=== PATIENT | female | born 1940 | race Caucasian/White ===

== ENCOUNTER 2023-03-21 14:52 | Observation (INO) | payer MEDICARE, SELFPAY ==
[2023-03-21] VITALS (33 sets, daily range): BP systolic 140–174; BP diastolic 61–81; PULSE 49–67; RESP 8–28; TEMP 36.6–36.8; O2SAT 95–99; BMI 25.9; BMI 25.6
--- NOTE | 2023-03-21 15:09 | ECG_ITS ---
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
--- NOTE | 2023-03-21 15:12 | CT_ITS ---
The [address] [address] Patient Name: MADALYN FORBES MRN: [id number] date: 1940 Sex: F Assigned Patient Location: ER Current Patient Location: .[facility] Accession/Order Number: [id number] Exam Date: 03/21/2023 15:30 Report Date: 03/21/2023 15:45 At the request of: RICKY MASON Procedure: CT stroke head/brain wo con CT stroke head/brain wo con, 03/21/2023 3:30 PM EST INDICATION: slurred speech at 4 am COMPARISON: None. TECHNIQUE: Axial CT images of the brain from skull base to vertex, including portions of the face and sinuses, were obtained without contrast. Multiplanar reformatted images were generated and reviewed as needed. Dose reduction techniques were achieved by using automated exposure control and/or adjustment of mA and/or kV according to patient size and/or use of iterative reconstruction technique. FINDINGS: CEREBRUM: Age-appropriate atrophy is present, without visible acute hemorrhage or lesion. Periventricular low density change is demonstrated, consistent with chronic small vessel disease. A subcentimeter focus of CSF density is seen in right owens radiata. CEREBELLUM: No edema, hemorrhage, mass, acute infarction, or inappropriate atrophy. BRAINSTEM: No acute infarct, hemorrhage or gross structural abnormality. CSF SPACES: Ventricles, cisterns, and sulci are appropriate for age. No hydrocephalus, subarachnoid hemorrhage, or mass. SKULL: No mass or other significant visible lesion. SINUSES: Limited views demonstrate no significant mucosal thickening or fluid. ORBITS: Limited views are unremarkable. OTHER: None. CT/CT stroke head/brain wo con IMPRESSION: Age-related deep white matter changes consistent with chronic small vessel disease superimposed on overall findings of age-appropriate cortical atrophy. Subcentimeter focus of CSF density in right owens radiata consistent with remote lacunar infarct. No acute intracranial abnormality is otherwise identified. Electronically authenticated by: Nellie CHAVES Date: 03/21/2023 15:45
[2023-03-21 15:20] LABS: Basophils Absolute Auto 0.1 10^3/uL (0.0-0.1); Basophils Percent Auto 0.6 % (0.2-2.0); Eosinophils Absolute Auto 0.4 10^3/uL (0.0-0.7); Eosinophils Percent Auto 4.4 % (0.9-7.0); Hemoglobin 12.2 g/dL (12.0-16.0); Immature Granulocytes Abs Auto 0.01 10^3/uL (0.00-0.03); Immature Granulocytes Pct Auto 0.1 % (0.0-0.5); Lymphocytes Absolute Auto 3.1 10^3/uL (1.2-3.8); Lymphocytes Percent Auto 38.1 % (20.5-60.0); Mean Corpuscular HGB Conc 32.1 g/dL (29.9-35.2); Mean Corpuscular Hemoglobin 30.1 pg (26.7-34.0); Mean Corpuscular Volume 93.8 fL (81.0-99.0); Mean Platelet Volume 10.2 fL (9.5-13.5); Monocytes Absolute Auto 0.4 10^3/uL (0.3-0.8); Neutrophils Absolute Auto 4.2 10^3/uL (1.4-6.5); Neutrophils Percent Auto 51.8 % (43.0-75.0); Platelet Count 270 10^3/uL (150-450); Red Blood Count 4.05 10^6/uL (4.20-5.40); Red Cell Distribution Width 13.2 % (11.0-15.0)
--- NOTE | 2023-03-21 15:27 | ED_ITS ---
HPI - General Adult General Chief complaint: Neuro Symptoms/Deficit Stated complaint: SLURRED SPEECH/ EXTREMITY WEAKNESS Time Seen by Provider: 03/21/23 15:08 Mode of arrival: Wheelchair Limitations: no limitations History of Present Illness HPI narrative: Being evaluated in the ER after she had her symptoms resolved almost few hours after she woke up at 4 AM with slurred speech, the patient mentioned that her symptoms resolved almost by the shearing machine tender and there was nobody around her at that time She did feel weak and tired and some headache mostly frontal and right now she denies any complaint other than the headache her speech is back to normal She feels weak in both upper and lower extremities not specifically to one side more than the other The patient denies any symptoms of something similar before Related Data Home Medications Medication Instructions Recorded Confirmed carvedilol 3.125 mg tablet mg 03/21/23 ezetimibe 10 mg tablet mg 03/21/23 levothyroxine 25 mcg tablet mcg 03/21/23 mometasone 0.1 % topical ointment topical 03/21/23 valsartan 40 mg tablet mg 03/21/23 Allergies Allergy/AdvReac Type Severity Reaction Status Date / Time Penicillins Allergy Severe Verified 03/21/23 15:05 lisinopril AdvReac Severe Verified 03/21/23 15:05 Review of Systems ROS Status of ROS 10 or more systems reviewed and unremark able except as noted in history and below Exam Narrative Exam Narrative: Nurses notes and vital signs reviewed and patient is not hypoxic. General: Well-appearing and in no apparent distress. Skin: Warm, dry, no pallor noted. No rash. Head: Normocephalic, atraumatic. Neck: Supple, non-tender. Eye: Pupils are equal, round and EOMI. No scleral icterus. Ears, Nose, Mouth, and Throat: TM are clear, no nasal mucosal hypertrophy. Oral mucosa is moist, no posterior oropharynx erythema, uvula is mid-line Cardiovascular: Regular Rate and Rhythm without murmur, gallop or rub. Respiratory: No accessory muscle use or respiratory distress. Lungs are clear to auscultation, no wheezing, rales or rhonchi Chest Wall: no tenderness Back: No midline thoracic or lumbar vertebral tenderness. No CVA tenderness Musculoskeletal: normal ROM, no calf or popliteal tenderness, no lower extremity edema/swelling GI: Abdomen is soft, non-distended. Normal bowel sounds. No masses appreciated. No tenderness to palpation. No rebound, guarding, or rigidity noted. Neurological: A&O x4. No cranial nerve dysfunction observed. No truncal ataxia. Moves all extremities. Sensation intact. Psychiatric: Cooperative and interactive. Normal mood and affect. Constitutional Vital Signs, click to edit/add: Last Vital Signs Temp 97.8 F 03/21/23 15:01 Pulse 67 03/21/23 15:01 Resp 16 03/21/23 15:01 BP 174/80 H 03/21/23 15:01 Course Vital Signs Vital signs: Vital Signs Temperature 97.8 F 03/21/23 15:01 Pulse Rate 67 03/21/23 15:01 Respiratory Rate 16 03/21/23 15:01 Blood Pressure 174/80 H 03/21/23 15:01 Temperature 97.8 F 03/21/23 15:01 Pulse Rate 67 03/21/23 15:01 Respiratory Rate 16 03/21/23 15:01 Blood Pressure 174/80 H 03/21/23 15:01 Medical Decision Making [facility] Narrative Medical decision making narrative: EKG showing sinus rhythm with a heart rate of [address] elevation or depression CBC and chemistry showed no acute significant pathology except for mild acute kidney injury Patient CT shows a lacunar infarct and with the patient elevated blood pressure in multiple risk factors she is high risk for CVA The patient case was discussed with and teleneurology and she was started on 325 mg aspirin and she will be admitted for MRI and MRA as inpatient The patient case discussed with and he agreed with above-mentioned plan Lab Data Labs: Lab Results 03/21/23 Range/Units 15:00 WBC 8.0 (4.0-11.0) 10^3/uL RBC 4.05 L (4.20-5.40) 10^6/uL Hgb 12.2 (12.0-16.0) g/dL Hct 38.0 (36.0-48.0) % MCV 93.8 (81.0-99.0) fL MCH 30.1 (26.7-34.0) pg MCHC 32.1 (29.9-35.2) g/dL RDW 13.2 (11.0-15.0) % Plt Count 270 (150-450) 10^3/uL MPV 10.2 (9.5-13.5) fL Neut % (Auto) 51.8 (43.0-75.0) % Lymph % (Auto) 38.1 (20.5-60.0) % [place] % (Auto) 5.0 (1.7-12.0) % Eos % (Auto) 4.4 (0.9-7.0) % Baso % (Auto) 0.6 (0.2-2.0) % Neut # (Auto) 4.2 (1.4-6.5) 10^3/uL Lymph # (Auto) 3.1 (1.2-3.8) 10^3/uL [place] # (Auto) 0.4 (0.3-0.8) 10^3/uL Eos # (Auto) 0.4 (0.0-0.7) 10^3/uL Baso # (Auto) 0.1 (0.0-0.1) 10^3/uL Abs Immat Gran (auto) 0.01 (0.00-0.03) 10^3/uL Imm/Tot Granulo (auto) 0.1 (0.0-0.5) % PT 10.6 (9.0-11.6) sec INR 1.00 Sodium 138 (136-145) mmol/L Potassium 4.1 (3.5-5.1) mmol/L Chloride 104 (98-107) mmol/L Carbon Dioxide 26.8 (21.0-32.0) mmol/L Anion Gap 11.3 BUN 22.0 H (7.0-18.0) mg/dL Creatinine 1.34 H (0.55-1.02) mg/dL Est GFR ( Amer) 46 L (>=60) Est GFR (Non-Af Amer) 38 L (>=60) BUN/Creatinine Ratio 16.4 Glucose 219 H (74-106) mg/dL Lactate 1.5 (0.4-2.0) mmol/L Calcium 9.2 (8.5-10.1) mg/dL Magnesium 2.0 (1.8-2.4) mg/dL Total Bilirubin 0.5 (0.2-1.0) mg/dL AST 23 (15-37) U/L ALT 15 (14-59) U/L Alkaline Phosphatase 70 (46-116) U/L Troponin I High Sens 10.5 (4.0-51.3) pg/mL Total Protein 8.0 (6.4-8.2) g/dL Albumin 3.3 L (3.4-5.0) g/dL Globulin 4.7 g/dL Albumin/Globulin Ratio 0.7 Discharge Plan Discharge Chief Complaint: Neuro Symptoms/Deficit Clinical Impression: TIA (transient ischemic attack) Cerebrovascular accident Qualifiers: CVA mechanism: unspecified Qualified Code(s): I63.9 - Cerebral infarction, unspecified Patient Disposition: Admitted As Inpatient Time of Disposition Decision: 16:52
[2023-03-21 15:31] LABS: Prothrombin Time 10.6 sec (9.0-11.6)
[2023-03-21 15:38] LABS: Alanine Aminotransferase 15 U/L (14-59); Albumin Globulin Ratio 0.7; Albumin Level 3.3 g/dL (3.4-5.0); Alkaline Phosphatase 70 U/L (46-116); Anion Gap 11.3; Aspartate Amino Transferase 23 U/L (15-37); BUN Creatinine Ratio 16.4; Bilirubin Total 0.5 mg/dL (0.2-1.0); Calcium 9.2 mg/dL (8.5-10.1); Carbon Dioxide 26.8 mmol/L (21.0-32.0); Chloride 104 mmol/L (98-107); Estimated GFR (African America 46 (>=60); Estimated GFR (Non-African Ame 38 (>=60); Globulin 4.7 g/dL; Glucose 219 mg/dL (74-106); Potassium 4.1 mmol/L (3.5-5.1); Sodium 138 mmol/L (136-145)
[2023-03-21 15:40] LABS: Troponin I High Sensitivity 10.5 pg/mL (4.0-51.3)
[2023-03-21 15:43] LABS: Lactate/Lactic Acid 1.5 mmol/L (0.4-2.0)
[2023-03-21] MEDS: ACETAMINOPHEN 325 MG TABLET 650 MG PO (16:44)
--- NOTE | 2023-03-21 16:50 | MR_ITS ---
[address] [address] Patient Name: MADALYN FORBES MRN: [id number] date: 1940 Sex: F Assigned Patient Location: ICU Current Patient Location: ICU Accession/Order Number: [id number] Exam Date: 03/21/2023 17:40 Report Date: 03/21/2023 20:12 At the request of: SHAIKH MAIN Procedure: MR head/brain wo con EXAM: 1. MRI BRAIN WITHOUT INTRAVENOUS CONTRAST 2. MR ANGIOGRAM HEAD WITHOUT INTRAVENOUS CONTRAST 3. MR ANGIOGRAM NECK WITHOUT INTRAVENOUS CONTRAST DATE: 03/21/2023 INDICATION: Female, 82 years-old , presenting with right frontal headache slurred speech and extremity weakness. COMPARISON: CT brain 03/21/2023 TECHNIQUE: Pre-and postcontrast brain MRI performed using [employer] # ml MultiHance IV. 3-D [id number] MRA of the [place] with rotational MIP reconstructions. MRA Neck: 2D 3-D time of flight MRA of cervical arterial vasculature. Source data were reviewed. Maximum intensity projections were acquired. FINDINGS: BRAIN MRI: Acute Change: Small focus restricted diffusion right owens radiata, compatible with an acute infarct. No significant vasogenic edema. Hemorrhage: No evidence of prior parenchymal hemorrhage on the susceptibility weighted sequences. Mass Lesion/ Mass Effect: No evidence of an intracranial mass or extra-axial fluid collection. No significant mass effect. Chronic Change: Scattered patchy and confluent areas of increased T2 and FLAIR signal are present in the supratentorial white matter which is nonspecific but likely represents chronic microvascular ischemia. Parenchyma: There is moderate generalized parenchymal volume loss. Ventricles: Diffuse ventricular enlargement is out of proportion to the degree of parenchymal volume loss and raises question of possible communicating hydrocephalus. Skull Base: Hypothalamic and pituitary region are grossly normal. Craniocervical junction is normal. No significant marrow replacement process. Vasculature: Major intracranial arteries and dural venous sinuses demonstrate typical flow voids, suggesting patency by spin echo criteria. Other: The paranasal sinuses are clear. Small right mastoid effusions. Left mastoid air cells are clear. Bilateral lens replacements. MR ANGIOGRAM BRAIN: The visualized anterior cerebral artery, anterior communicating artery, middle cerebral artery, posterior cerebral artery, and posterior communicating vessels are unremarkable, without significant hemodynamic stenosis. No definite aneurysm is identified. The distal internal carotid arteries are patent, without substantial irregularity or stenosis. The imaged distal vertebral arteries and basilar artery are patent. MR ANGIOGRAM NECK: Please note, the origins of the great vessels are not imaged on this study. The common carotid arteries, carotid bifurcations, and imaged cervical internal carotid arteries are unremarkable, without irregularity or stenosis. The imaged vertebral arteries are unremarkable without significant hemodynamic stenosis. MR/MR head/brain wo con IMPRESSION: MRI BRAIN: 1. Small focus of acute infarct right centrum semiovale without significant vasogenic edema. 2. Chronic microvascular ischemia and involutional changes. MR ANGIOGRAM HEAD: Patent anterior and posterior intracranial circulation without hemodynamically significant stenosis. MR ANGIOGRAM NECK: Patent anterior and posterior extracranial circulation without hemodynamically significant stenosis. COMMUNICATION: Communicated with: Isabella CUBA on 03/21/2023 at 8:12 PM. Electronically authenticated by: MARGI GEE Date: 03/21/2023 20:12
--- NOTE | 2023-03-21 16:50 | MR_ITS ---
[address] [address] Patient Name: MADALYN FORBES MRN: [id number] date: 1940 Sex: F Assigned Patient Location: ICU Current Patient Location: ICU Accession/Order Number: [id number] Exam Date: 03/21/2023 17:40 Report Date: 03/21/2023 20:12 At the request of: SHAIKH MAIN Procedure: MR angio neck wo con EXAM: 1. MRI BRAIN WITHOUT INTRAVENOUS CONTRAST 2. MR ANGIOGRAM HEAD WITHOUT INTRAVENOUS CONTRAST 3. MR ANGIOGRAM NECK WITHOUT INTRAVENOUS CONTRAST DATE: 03/21/2023 INDICATION: Female, 82 years-old , presenting with right frontal headache slurred speech and extremity weakness. COMPARISON: CT brain 03/21/2023 TECHNIQUE: Pre-and postcontrast brain MRI performed using [employer] # ml MultiHance IV. 3-D [id number] MRA of the [place] with rotational MIP reconstructions. MRA Neck: 2D 3-D time of flight MRA of cervical arterial vasculature. Source data were reviewed. Maximum intensity projections were acquired. FINDINGS: BRAIN MRI: Acute Change: Small focus restricted diffusion right owens radiata, compatible with an acute infarct. No significant vasogenic edema. Hemorrhage: No evidence of prior parenchymal hemorrhage on the susceptibility weighted sequences. Mass Lesion/ Mass Effect: No evidence of an intracranial mass or extra-axial fluid collection. No significant mass effect. Chronic Change: Scattered patchy and confluent areas of increased T2 and FLAIR signal are present in the supratentorial white matter which is nonspecific but likely represents chronic microvascular ischemia. Parenchyma: There is moderate generalized parenchymal volume loss. Ventricles: Diffuse ventricular enlargement is out of proportion to the degree of parenchymal volume loss and raises question of possible communicating hydrocephalus. Skull Base: Hypothalamic and pituitary region are grossly normal. Craniocervical junction is normal. No significant marrow replacement process. Vasculature: Major intracranial arteries and dural venous sinuses demonstrate typical flow voids, suggesting patency by spin echo criteria. Other: The paranasal sinuses are clear. Small right mastoid effusions. Left mastoid air cells are clear. Bilateral lens replacements. MR ANGIOGRAM BRAIN: The visualized anterior cerebral artery, anterior communicating artery, middle cerebral artery, posterior cerebral artery, and posterior communicating vessels are unremarkable, without significant hemodynamic stenosis. No definite aneurysm is identified. The distal internal carotid arteries are patent, without substantial irregularity or stenosis. The imaged distal vertebral arteries and basilar artery are patent. MR ANGIOGRAM NECK: Please note, the origins of the great vessels are not imaged on this study. The common carotid arteries, carotid bifurcations, and imaged cervical internal carotid arteries are unremarkable, without irregularity or stenosis. The imaged vertebral arteries are unremarkable without significant hemodynamic stenosis. MR/MR angio neck wo con IMPRESSION: MRI BRAIN: 1. Small focus of acute infarct right centrum semiovale without significant vasogenic edema. 2. Chronic microvascular ischemia and involutional changes. MR ANGIOGRAM HEAD: Patent anterior and posterior intracranial circulation without hemodynamically significant stenosis. MR ANGIOGRAM NECK: Patent anterior and posterior extracranial circulation without hemodynamically significant stenosis. COMMUNICATION: Communicated with: Isabella CUBA on 03/21/2023 at 8:12 PM. Electronically authenticated by: MARGI GEE Date: 03/21/2023 20:12
--- NOTE | 2023-03-21 16:50 | CA_ITS ---
Patient Name: MADALYN FORBES MR#: [id number] : 1940 Exam Date: 03/22/2023 Ordering Doctor: SHAIKH Gt QUACH . ECHOCARDIOGRAM REPORT PROCEDURE: CA ECHO DOPPLER COMPLETE INDICATIONS: CVA COMPARISON: None. DESCRIPTION: COMPLETE ECHOCARDIOGRAM Real-time transthoracic echocardiography with 2D, M-mode, spectral and color flow Doppler performed. QUALITY: Technical quality was good. LEFT VENTRICLE: Normal chamber size. Mild concentric left ventricular hypertrophy. Global left ventricular systolic function is normal. LV EF: Estimated left ventricular ejection fraction is 55-60% DIASTOLIC: Grade I diastolic dysfunction. ATRIAL SEPTUM: Intact atrial septum. Agitated saline contrast does not reveal an intra-cardiac shunt. LEFT ATRIUM: Mildly dilated. RIGHT ATRIUM: Normal chamber size. RIGHT VENTRICLE: Normal chamber size. Normal right ventricular systolic function. TRICUSPID VALVE: Normal mobility and thickness. No stenosis with trivial regurgitation. Mild pulmonary hypertension. RVSP 38 mmHg MITRAL VALVE: Normal mobility and thickness. No evidence of mitral valve stenosis. Trivial mitral regurgitation. AORTIC VALVE: Normal trileaflet appearance. No visible sclerosis. Normal leaflet mobility. No evidence of aortic valve stenosis. No aortic regurgitation. AORTIC ROOT: Normal diameter and appearance. PULMONIC VALVE: Normal thickness and mobility. No stenosis. Mild regurgitation. PERICARDIUM: No evidence of pericardial effusion. IVC: Collapses with inspirations. Normal size. PLEURA: CONCLUSION: 1. Mild concentric left ventricular hypertrophy. Normal ventricular systolic function. LVEF is 55 to 60%. 2. Normal right ventricular size and systolic function. 3. Mild diastolic dysfunction. 4. No significant valvular dysfunction. 5. Mildly elevated right-sided pressures. 6. No evidence of intracardiac shunt by agitated saline injections. Adult Echocardiography Procedure Report Left Ventricle LVEDD (3.7 - 5.6 cm): 3.83 cm LVESD (2.2 - 4.0 cm): 2.81 cm LVIVS thickness (0.6 - 1.2 cm): 1.32 cm LVPW thickness (0.5 - 1.0 cm): 1.15 cm e': 0.09 m/s E - e': 6.56 LVOT Max Gradient: 3.04 mm[Hg] LVOT Area (cm2): 0.87 m/s Peak Velocity (LVOT): 0.87 m/s Mean Velocity (LVOT): 0.55 m/s LVOT Diameter 1.88 cm Left Ventricular Ejection Fraction: 55-60 % Left Atrium LA Volume Index (2D A2C): 30.33 ml/m2 Left Atrium Systolic Dimension: 3.26 cm Mitral Valve MV E to A Ratio: 0.62 Mitral Valve A-Wave Peak Velocity: 1.01 m/s Mitral Valve E-Wave Peak Velocity: 0.62 m/s Right Ventricle RV Internal Diastolic Dimension: 3.47 cm Aorta AO Root Diam: 3.52 cm Ascending Ao Diam: 3.09 cm Aortic Valve AoV Area (Peak Tolu): 1.67 cm2, 1.67 cm2 AoV Area (VTI): 1.58 cm2, 1.58 cm2 Peak Velocity(Antegrade Flow): 1.45 m/s Peak Gradient(Antegrade Flow): 8.42 mm[Hg] Mean Velocity(Antegrade Flow): 1.02 m/s Mean Gradient(Antegrade Flow): 4.71 mm[Hg] Velocity Time Integral: 37.01 cm Tricuspid Valve Peak Velocity (Regurgitant Flow): 2.18 m/s, 2.95 m/s, 2.55 m/s Pulmonic Valve Mean Gradient: 2.38 mm[Hg], 2.04 mm[Hg] Mean Velocity: 0.72 m/s, 0.66 m/s Peak Velocity: 1.07 m/s Peak Gradient: 5.11 mm[Hg], 4.11 mm[Hg] Right Atrium Right Atrium Systolic Pressure: 57.48 ml, 57.48 ml Dictated by: Osbaldo Singh M.D. on 03/22/2023 at 17:33 Approved by: Osbaldo Singh M.D. on 03/22/2023 at 17:37
--- NOTE | 2023-03-21 16:50 | MR_ITS ---
[address] [address] Patient Name: MADALYN FORBES MRN: [id number] date: 1940 Sex: F Assigned Patient Location: ICU Current Patient Location: ICU Accession/Order Number: [id number] Exam Date: 03/21/2023 17:40 Report Date: 03/21/2023 20:12 At the request of: SHAIKH MAIN Procedure: MR angio head wo con EXAM: 1. MRI BRAIN WITHOUT INTRAVENOUS CONTRAST 2. MR ANGIOGRAM HEAD WITHOUT INTRAVENOUS CONTRAST 3. MR ANGIOGRAM NECK WITHOUT INTRAVENOUS CONTRAST DATE: 03/21/2023 INDICATION: Female, 82 years-old , presenting with right frontal headache slurred speech and extremity weakness. COMPARISON: CT brain 03/21/2023 TECHNIQUE: Pre-and postcontrast brain MRI performed using [employer] # ml MultiHance IV. 3-D kyeg-qj-hcbcco MRA of the [place] with rotational MIP reconstructions. MRA Neck: 2D 3-D time of flight MRA of cervical arterial vasculature. Source data were reviewed. Maximum intensity projections were acquired. FINDINGS: BRAIN MRI: Acute Change: Small focus restricted diffusion right owens radiata, compatible with an acute infarct. No significant vasogenic edema. Hemorrhage: No evidence of prior parenchymal hemorrhage on the susceptibility weighted sequences. Mass Lesion/ Mass Effect: No evidence of an intracranial mass or extra-axial fluid collection. No significant mass effect. Chronic Change: Scattered patchy and confluent areas of increased T2 and FLAIR signal are present in the supratentorial white matter which is nonspecific but likely represents chronic microvascular ischemia. Parenchyma: There is moderate generalized parenchymal volume loss. Ventricles: Diffuse ventricular enlargement is out of proportion to the degree of parenchymal volume loss and raises question of possible communicating hydrocephalus. Skull Base: Hypothalamic and pituitary region are grossly normal. Craniocervical junction is normal. No significant marrow replacement process. Vasculature: Major intracranial arteries and dural venous sinuses demonstrate typical flow voids, suggesting patency by spin echo criteria. Other: The paranasal sinuses are clear. Small right mastoid effusions. Left mastoid air cells are clear. Bilateral lens replacements. MR ANGIOGRAM BRAIN: The visualized anterior cerebral artery, anterior communicating artery, middle cerebral artery, posterior cerebral artery, and posterior communicating vessels are unremarkable, without significant hemodynamic stenosis. No definite aneurysm is identified. The distal internal carotid arteries are patent, without substantial irregularity or stenosis. The imaged distal vertebral arteries and basilar artery are patent. MR ANGIOGRAM NECK: Please note, the origins of the great vessels are not imaged on this study. The common carotid arteries, carotid bifurcations, and imaged cervical internal carotid arteries are unremarkable, without irregularity or stenosis. The imaged vertebral arteries are unremarkable without significant hemodynamic stenosis. MR/MR angio head wo con IMPRESSION: MRI BRAIN: 1. Small focus of acute infarct right centrum semiovale without significant vasogenic edema. 2. Chronic microvascular ischemia and involutional changes. MR ANGIOGRAM HEAD: Patent anterior and posterior intracranial circulation without hemodynamically significant stenosis. MR ANGIOGRAM NECK: Patent anterior and posterior extracranial circulation without hemodynamically significant stenosis. COMMUNICATION: Communicated with: Isabella CUBA on 03/21/2023 at 8:12 PM. Electronically authenticated by: MARGI GEE Date: 03/21/2023 20:12
[2023-03-21 17:02] LABS: SARS-CoV-2 Ag NEGATIVE (NEGATIVE)
[2023-03-21 17:10] LABS: Cholesterol 245 mg/dL (<=200); Estimated Average Glucose 151 mg/dL; Glycohemoglobin A1C 6.9 % (4.5-6.2); HDL Cholesterol 41 mg/dL (40-60); Triglycerides 175 mg/dL (<=150)
[2023-03-21] MEDS: ASPIRIN 81 MG TAB.CHEW 324 MG PO (17:19)
[2023-03-21] MEDS: LACTATED RINGER'S SOLUTION 1,000 ML 100 ML IV (21:32)
[2023-03-21] MEDS: ENOXAPARIN SODIUM 30 MG/0.3 ML SYRINGE SUBQ (21:32)
[2023-03-22] VITALS (19 sets, daily range): BP systolic 138–165; BP diastolic 66–82; PULSE 51–83; RESP 6–16; TEMP 36.6–37.6; O2SAT 97–98
[2023-03-22 04:27] LABS: Basophils Percent Auto 0.5 % (0.2-2.0); Eosinophils Absolute Auto 0.4 10^3/uL (0.0-0.7); Eosinophils Percent Auto 4.4 % (0.9-7.0); Hematocrit 33.6 % (36.0-48.0); Hemoglobin 10.9 g/dL (12.0-16.0); Immature Granulocytes Abs Auto 0.01 10^3/uL (0.00-0.03); Immature Granulocytes Pct Auto 0.1 % (0.0-0.5); Lymphocytes Absolute Auto 3.4 10^3/uL (1.2-3.8); Lymphocytes Percent Auto 42.1 % (20.5-60.0); Mean Corpuscular HGB Conc 32.4 g/dL (29.9-35.2); Mean Corpuscular Hemoglobin 30.4 pg (26.7-34.0); Mean Corpuscular Volume 93.9 fL (81.0-99.0); Mean Platelet Volume 10.2 fL (9.5-13.5); Monocytes Absolute Auto 0.5 10^3/uL (0.3-0.8); Monocytes Percent Auto 5.7 % (1.7-12.0); Neutrophils Absolute Auto 3.8 10^3/uL (1.4-6.5); Neutrophils Percent Auto 47.2 % (43.0-75.0); Platelet Count 226 10^3/uL (150-450); Red Blood Count 3.58 10^6/uL (4.20-5.40); White Blood Count 8.1 10^3/uL (4.0-11.0)
[2023-03-22 04:51] LABS: Alanine Aminotransferase 14 U/L (14-59); Albumin Globulin Ratio 0.7; Albumin Level 2.7 g/dL (3.4-5.0); Alkaline Phosphatase 61 U/L (46-116); Anion Gap 12.7; Aspartate Amino Transferase 12 U/L (15-37); BUN Creatinine Ratio 16.2; Bilirubin Total 0.2 mg/dL (0.2-1.0); Calcium 8.6 mg/dL (8.5-10.1); Carbon Dioxide 25.1 mmol/L (21.0-32.0); Chloride 108 mmol/L (98-107); Estimated GFR (African America 48 (>=60); Estimated GFR (Non-African Ame 39 (>=60); Globulin 3.8 g/dL; Glucose 118 mg/dL (74-106); Potassium 3.8 mmol/L (3.5-5.1); Sodium 142 mmol/L (136-145); Total Protein 6.5 g/dL (6.4-8.2)
[2023-03-22] MEDS: LACTATED RINGER'S SOLUTION 1,000 ML 100 ML IV (07:45)
[2023-03-22] MEDS: DOCUSATE SODIUM 100 MG CAPSULE PO (07:45)
[2023-03-22] MEDS: ASPIRIN 81 MG TAB.CHEW PO (07:45)
--- NOTE | 2023-03-22 09:52 | CM.NOTE ---
Rounding with Dr. Menon. Pt. sitting up in chair with daughter in room with patient. Dr discussed MRI being positive for a small stroke. Discussed taking medications ASA and cholesterol medications. Pt. states I cannot take statins, they make me sick . Dr. Menon discussed trying other statins and the importance of taking cholesterol medications especially with stroke. Discussed possible discharge today after echocardiogram.
--- NOTE | 2023-03-22 10:56 | CM.NOTE ---
Medical Outpatient Observation Notice discussed with pt, pt verbalizes understanding and signs paper. Original given to pt and copy placed on pt's chart.
--- NOTE | 2023-03-22 11:16 | P.HP_ITS ---
H&P: HPI History of Present Illness Chief complaint: SLURRED SPEECH/ EXTREMITY WEAKNESS, TIA Narrative: 82 y o female was in he usual state of health when she woke up night of the , was unable to go back to sleep and noticed sudden onset slurred speech, generalized weakness, headache around 4 in the morning. She came to ED a few hours later but her symptoms had resolved by that time. Patient denies prior hx of CVA, TIA. She has no active complaints to offer other than feeling weak overall. Review of Systems ROS Status of ROS 10 or more systems reviewed and unremark able except as noted in history and below [facility] Medical History (Updated 03/22/23 @ 11:26 by Shaikh Sinan MD) Type 2 diabetes mellitus ?E11.9 - Type 2 diabetes mellitus without complications (ICD-10) HTN (hypertension) ?I10 - Essential (primary) hypertension (ICD-10) Hypothyroid ?E03.9 - Hypothyroidism, unspecified (ICD-10) CAD (coronary artery disease) ?I25.10 - Atherosclerotic heart disease of [place] coronary artery without angina pectoris (ICD-10) HLD (hyperlipidemia) ?E78.5 - Hyperlipidemia, unspecified (ICD-10) Cataract (lens) fragments in eye following cataract surgery, bilateral ?H59.023 - Cataract (lens) fragments in eye following cataract surgery, bilateral (ICD-10) Cataracts, bilateral ?H26.9 - Unspecified cataract (ICD-10) Chronic kidney disease, stage 3 unspecified ?N18.30 - Chronic kidney disease, stage 3 unspecified (ICD-10) Borderline diabetes mellitus ?R73.03 - Prediabetes (ICD-10) Myocardial infarct, old ?I25.2 - Old myocardial infarction (ICD-10) Surgical History History of appendectomy ?Z90.49 - Acquired absence of other specified parts of digestive tract (ICD- 10) History of right heart catheterization ?Z98.890 - Other specified postprocedural states (ICD-10) H/O lumpectomy ?Z98.890 - Other specified postprocedural states (ICD-10) Family History Brother Family history of diabetes mellitus Family history of myocardial infarction Mother Family history of diabetes mellitus Family history of myocardial infarction Sister Family history of myocardial infarction Family history of stroke Daughter Family history of cancer Uncle Family history of CHF (congestive heart failure) Father Family history of COPD (chronic obstructive pulmonary disease) Social History Within the past year, how often did you have a drink containing alcohol: never Score interpretation: A score less than 3 is consistent with normal alcohol consumption. 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 Known occupational exposures/hazards: No Highest level of school completed/degree received: some college, no degree Do you want help with school or training: No Are you now , , , , never or living with a partner: In a typical week, how many times do you talk on the telephone with family, friends, or neighbors: 3 or more times per week How often do you get together with friends or relatives: 3 or more times per week Little interest or pleasure in doing things: not at all Feeling down, depressed, or hopeless: not at all Feel stressed/tense/nervous/anxious/difficulty sleeping: not at all Life stressors: recent of family or friend Life stressor details: daughter last year Do you think of yourself as: straight/heterosexual Gender Identity: female Meds Home Medications and Allergies Home Medications Medication Instructions Recorded Confirmed Type carvedilol 3.125 mg tablet 3.125 mg PO BID 03/21/23 03/21/23 History ezetimibe 10 mg tablet 10 mg PO QDAY 03/21/23 History levothyroxine 25 mcg tablet 25 mcg PO QDAY 03/21/23 03/21/23 History mometasone 0.1 % topical ointment 1 applic topical QAM 03/21/23 03/21/23 History valsartan 40 mg tablet 20 mg PO QDAY 03/21/23 03/21/23 History Allergies Allergy/AdvReac Type Severity Reaction Status Date / Time Penicillins Allergy Severe Verified 03/21/23 15:05 lisinopril AdvReac Severe Verified 03/21/23 15:05 Exam Constitutional Vital Signs, click to edit/add: Last Vital Signs Temp 99.6 F 03/22/23 07:20 Pulse 80 03/22/23 10:55 Resp 16 03/22/23 07:20 BP 165/82 H 03/22/23 07:20 Pulse Ox 97 03/22/23 07:20 O2 Del Method Room Air 03/22/23 07:20 Documenting provider has reviewed patient's vital signs: yes Common normals: no apparent distress and oriented x3 General appearance: cooperative Eye Common normals: conjunctivae normal and no scleral icterus Conjunctiva: conjunctiva(e) normal Respiratory Common normals: normal respiratory effort and clear to auscultation bilaterally Effort & inspection: able to speak in complete sentences Auscultation: clear to auscultation bilaterally Cardio Common normals: regular rate, S1 normal heart sound and S2 normal heart sound Rate: regular rate Heart sounds: S1 normal and S2 normal GI Common normals: Normal to inspection, nondistended, normoactive bowel sounds present, soft to palpation, non-tender and no hepatosplenomegaly Palpation: soft and no hepatosplenomegaly Extremity Common normals: no clubbing, cyanosis or edema Neuro Common normals: oriented x3, moves all extremities and no focal motor deficits Psych Common normals: mental status grossly normal, denies hallucinations, denies homicidal ideation and denies suicidal ideation Results Labs Labs: Short CBC 03/21/23 03/22/23 Range/Units 15:00 04:14 WBC 8.0 8.1 (4.0-11.0) 10^3/uL Hgb 12.2 10.9 L (12.0-16.0) g/dL Hct 38.0 33.6 L (36.0-48.0) % Plt Count 270 226 (150-450) 10^3/uL BMP 03/21/23 03/22/23 15:00 04:14 Sodium 138 142 Potassium 4.1 3.8 Chloride 104 108 H Carbon Dioxide 26.8 25.1 BUN 22.0 H 21.0 H Creatinine 1.34 H 1.30 H Glucose 219 H 118 H Calcium 9.2 8.6 Liver Function 03/21/23 03/22/23 Range/Units 15:00 04:14 Total Bilirubin 0.5 0.2 (0.2-1.0) mg/dL AST 23 12 L (15-37) U/L ALT 15 14 (14-59) U/L Alkaline Phosphatase 70 61 (46-116) U/L Albumin 3.3 L 2.7 L (3.4-5.0) g/dL Assessment and Plan Assessment and Plan (1) Lacunar stroke, acute: Assessment and Plan: Acute lacunar stroke on MRI. Started on Aspirin. No sig large vessel occlusion/atherosclerotic disease on MRA head/neck 2D ECHO pending. In NSR. No prior hx of Afib Likely from poorly controlled HTN. Tele neuro consult pending. (2) CAD (coronary artery disease): Assessment and Plan: Prior hx of CAD. Started on ASA. On coreg. C/w same. Started on Lipitor for HLD. Qualifiers: Coronary Disease-Associated Artery/Lesion type: [place] artery [place] vs. transplanted heart: [place] heart Associated angina: without angina Qualified Code(s): I25.10 - Atherosclerotic heart disease of [place] coronary artery without angina pectoris (3) HTN (hypertension): Assessment and Plan: Likely poorly controlled at home. Stroke onset over 24 hours. Reusme home meds. Increase valsartan to 40 mg. Qualifiers: Hypertension type: primary hypertension Qualified Code(s): I10 - Essential (primary) hypertension (4) Type 2 diabetes mellitus: Assessment and Plan: Prior hx of [place] Diabetes. A1C is 6.9 New onset - will need oral meds on discharge. 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 Monitor Qualifiers: Chronic kidney disease stage 3 subtype: unspecified whether 3a or 3b Qualified Code(s): N18.30 - Chronic kidney disease, stage 3 unspecified (6) Hypothyroid: Assessment and Plan: c/w synhthroid. Qualifiers: Hypothyroidism type: unspecified Qualified Code(s): E03.9 - Hypothyroidism, unspecified (7) HLD (hyperlipidemia): Assessment and Plan: on zetia due to intolerance to statin in the past. Lipid panel indicative of inadequate response. Started on Lipitor. Patient will give statins another try Qualifiers: Hyperlipidemia type: unspecified Qualified Code(s): E78.5 - Hyperlipidemia, unspecified Plan Awaiting PT/OT eval, tele neuro consult and 2D ECHO. Possible d/c today
[2023-03-22] MEDS: LOSARTAN POTASSIUM 25 MG TABLET PO (11:39)
--- NOTE | 2023-03-22 11:55 | CM.NOTE ---
Discussed with pt and daughter regarding PT recommendations. Pt is not home bound and would like to do outpatient PT. Talked with Dr. Menon, order given to pt for outpatient PT. Pt verbalizes understanding that she will need to call for an appointment after discharge.
[2023-03-22 12:17] LABS: Bilirubin Urine NEGATIVE (NEGATIVE); Blood Urine NEGATIVE (NEGATIVE); Clarity Urine CLEAR (CLEAR); Color Urine LT. YELLOW (YELLOW); Glucose Urine UA NEGATIVE (NEGATIVE); Ketones Urine NEGATIVE (NEGATIVE); Leukocyte Esterase Urine NEGATIVE (NEGATIVE); Nitrite Urine NEGATIVE (NEGATIVE); Protein Urine NEGATIVE (NEG/TRACE); Specific Gravity Urine <=1.005 (1.005-1.025); Urobilinogen Urine 0.2 EU/dL (0.2-1.0)
[2023-03-22 12:20] LABS: Urine Microscopic Indicated NO
[2023-03-23 12:35] LABS: SARS-CoV-2 NAA INCONCLUSIVE (NOT DETECTE)
--- OUTSIDE RECORDS SUMMARY | 2023-04-04 02:14 | XMS_ITS | CCD ---
Author Name Unknown Address [address] [place] [address] Organization [facility] Care Team Providers Care Pompom Maker Name Role Phone RIAN ROSS Admitting Unavailable RIAN ROSS Attending Unavailable WIECEK, DR TIM Servin Consulting Unavailable FURLONG, DR JORGE LUIS Garrison Primary Care Unavailable WIECEK, DR TIM Servin Admitting Unavailable WIECEK, DR TIM Servin Attending Unavailable WIECEK, DR TIM Servin Attending Unavailable FURLONG, DR JORGE LUIS Garrison Primary Care Unavailable WIECEK, DR TIM Servin Consulting Unavailable WIECEK, DR TIM Servin Admitting Unavailable SANTA HENDERSON Consulting Unavailable KUNS, DR URBAN Del Castillo Admitting Unavailable KUNS, DR URBAN Del Castillo Attending Unavailable FURLONG, DR JORGE LUIS Garrison Primary Care Unavailable WEST, DR TENZIN Cortes Consulting Unavailable KUNS, DR URBAN Del Castillo Consulting Unavailable WIECEK, DR TIM Servin Attending Unavailable FURLONG, DR JORGE LUIS Garrison Primary Care Unavailable WIECEK, DR TIM Servin Admitting Unavailable WEST, DR TENZIN Cortes Consulting Unavailable EMANUELLONG, DR JORGE LUIS Garrison Primary Care Unavailable KUNTE, DRAKE Admitting Unavailable KUNTE, DRAKE Attending Unavailable KUNTE, DRAKE Consulting Unavailable MISC, DR BARRETT Admitting Unavailable FURLONG, DR JORGE LUIS Garrison Primary Care Unavailable MISC, DR BARRETT Attending Unavailable MISC, DR BARRETT Consulting Unavailable LESS, DR URBAN Del Castillo Attending Unavailable KUNS, DR URBAN Del Castillo Admitting Unavailable FURLONG, DR JORGE LUIS Garrison Primary Care Unavailable WEST, DR TENZIN Cortes Consulting Unavailable LESS, DR URBAN Del Castillo Consulting Unavailable Jorge Luis Simon Primary Care Provider Jorge Luis Simon DO Primary Care Provider Jorge Luis Simon DO Primary Care Provider Gabi Gaona Unavailable Jorge Luis Simon DO Primary Care Provider DO Jorge Luis Simon Primary Care Provider [phone] MD Simin Lama Attending Provider DRAKE ANAND Attending Unavailable MATTY ANANDARTH Referring Unavailable JORGE LUIS SIMON Primary Care Unavailab le DRAKE ANAND Referring Unavailable CHARLEY, JORGE LUIS HODGE Primary Care Unavailab le SIMIN LAMA Attending Unavailable DRAKE ANAND Referring Unavailable CHARLEY, JORGE LUIS HODGE Primary Care Unavailab Simin Malloy Admitting Unavailable Simin Lama Attending Unavailable Jorge Luis Simon Primary Care Unavailable MAGALI HUIZAR Attending Unavailable Allergies Allergy Classification Reported Allergen(s) Allergy Type Date of Onset Reaction(s) Facility (3 sources) Amino Acids; Translations: [LISINOPRIL] Drug Allergy 04-05-20 21 [facility] Repository (3 sources) Penicillins; Translations: [PENICILLINS] Drug allergy (disorder) 09-21-19 16 Rash [facility] Repository (8 sources) Lisinopril Drug Allergy 04-05-20 21 Unknown [facility] (2 sources) Penicillins Drug Intolerance 04-05-20 21 Other: See Comments [facility] (6 sources) Penicillins Drug Intolerance 04-05-20 21 Other: See Comments [facility] (5 sources) Amino Acids Drug Allergy 02-01-20 22 Other: See Comments [facility] (1 source) Penicillin V Drug Allergy dizziness, LOC [facility] Other (1 source) Penicillins Drug allergy (disorder) 06-15-[address] [facility] Repository Medications Current Medications Medication Drug Class(es) Dates Sig (Normalized) Sig (Original) aspirin 81 mg chewable tablet (9 sources) Platelet Aggregation Inhibitor, Nonsteroidal Anti-inflammatory Drug Start: 06-14-2018 take 81 mg by mouth once daily Aspirin Active 81 MG PO Daily 0 June 14, 2018 12:00am aspirin 81 mg ca p aspirin low dose 81mg ec 0 Active Comment on above: aspirin low dose 81m g ec atorvastatin 80 mg oral tablet (1 source) HMG-CoA Reductase Inhibitor Start: 06-14-2018 take 80 mg by mouth once daily in the evening Atorvastatin Active 80 MG PO Every evening June 14, 2018 12:00am lisinopril 2.5 mg oral tablet (1 source) Angiotensin Converting Enzyme Inhibitor Start: 06-14-2018 take 2.5 mg by mouth once daily Lisinopril Active 2.5 MG PO Daily June 14, 2018 12:00am metFORMIN hydrochloride 500 mg oral tablet (1 source) Biguanide Start: 06-14-2018 take 250 mg by mouth twice daily Metformin Active 250 MG PO Twice daily June 14, 2018 12:00am Completed/Discontinued Medications Medication Drug Class(es) Dates Sig (Normalized) Sig (Original) carvedilol 3.125 mg oral tablet (10 sources) alpha-Adrenergic Leela, beta-Adrenergic Leela Start: 06-18-2018 take 1 tablet by mouth twice daily at mealtime carvedilol (COREG) 3.125 mg tablet Take 3.125 mg by mouth twice daily with meals. 0 12/22/2020 Active Comment on above: Take 3.125 mg by edna th twice daily with meals. clopidogrel 75 mg oral tablet (1 source) P2Y12 Platelet Inhibitor Start: 06-18-2018 End: 07-13-2019 take 1 tablet by mouth once daily Clopidogrel (Plavix) 75 mg tablet Discontinued 75 MG PO Daily June 18, 2018 12:00am July 12, 2019 11:03pm 1 ml enoxaparin sodium 100 mg/ml prefilled syringe (1 source) Low Molecular Weight Heparin Start: 06-18-2018 End: 06-23-2018 Enoxaparin (Lovenox) 100 mg/mL syringe Discontinued 75 MG SUBCUT Daily 3.75 June 18, 2018 12:00am June 23, 2018 12:03am iv contrast (will be provided with radiology test) (1 source) Start: 04-11-2021 End: 04-12-2021 iv contrast (will be provided with radiology test) MRI Breast COY Inject, intravenously, once for 1 dose. No IV access, insert saline lock prior to the beginning of sedation, infusion, injection of imaging exam. Discontinue saline lock post exam. If Pt has a central line or IVAD, may access for administration according to line specific nursing protocol. Once exam is complete flush line and de-access according to line specific nursing protocol in the MR contrast administration guidelines link 1 Each 0 04/11/2021 04/12/2021 Comment on above: MRI Breast COY Injec t, intravenously, once for 1 dose. No IV access, insert saline lock prior to the beginning of sedation, infusion, injection of imaging exam. Discontinue saline lock post exam. If Pt has a central line or IVAD, may access for administration according to line specific nursing protocol. Once exam is complete flush line and de-access according to line specific nursing protocol in the MR contrast administration guidelines link nitroglycerin 0.4 mg sublingual tablet (1 source) Nitrate Vasodilator Start: 06-14-2018 End: 10-12-2018 Nitroglycerin Discontinued 0.4 MG SUBLINGUAL every 5 to 15 minutes June 14, 2018 12:00am October 11, 2018 11:02pm until response; do not exceed 3 doses per episode sacubitril 24 mg / valsartan 26 mg oral tablet (9 sources) Angiotensin 2 Receptor Leela take 1 tablet by mouth twice daily sacubitril-valsarta n (ENTRESTO) 24-26 mg tablet Entresto 24 mg-26 mg tablet TAKE 1 TABLET BY MOUTH TWICE DAILY 0 Active Entresto Active Comment on above: Entresto 24 mg-26 mg tablet TAKE 1 TABLET BY MOUTH TWICE DAILY warfarin sodium 5 mg oral tablet (1 source) Vitamin K Antagonist Start: 06-18-2018 End: 01-14-2019 take 1 tablet by mouth once daily Warfarin (Coumadin) 5 mg tablet Discontinued 5 MG PO Daily June 18, 2018 12:00am January 13, 2019 11:03pm Problems Active Problems Problem Classification Problem Date Documented Date Episodic/Chronic Acute myocardial infarction (1 source) Myocardial infarction; Translations: [Non-ST elevation (NSTEMI) myocardial infarction] 06-14-2018 Chronic Cancer of breast (12 sources) 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; Translations: [Malignant neoplasm of unspecified site of left female breast] Onset: 04-12-2021 04-12-2021 Chronic Conduction disorders (1 source) Long QT syndrome; Translations: [Long QT syndrome] 06-15-2018 Chronic Congestive heart failure; nonhypertensive (1 source) Heart failure, unspecified; Translations: [HEART FAILURE UNSPECIFIED] Onset: 03-28-2021 Chronic Coronary atherosclerosis and other heart disease (3 sources) Atherosclerotic heart disease of [place] coronary artery without angina pectoris; Translations: [Old myocardial infarction] Onset: 03-28-2021 06-15-2018 Chronic Diabetes mellitus without complication (2 sources) Type 2 diabetes mellitus without complications; Translations: [Diabetes mellitus] Onset: 03-28-2021 06-14-2018 Chronic Diseases of white blood cells (1 source) Lymphocytosis; Translations: [Lymphocytosis (symptomatic)] Chronic Disorders of lipid metabolism (1 source) Hyperlipidemia, unspecified; Translations: [HYPERLIPIDEMIA UNSPECIFIED] Onset: 03-28-2021 Chronic Essential hypertension (1 source) Hypertensive disorder; Translations: [Essential (primary) hypertension] 06-14-2018 Chronic Hypertension with complications and secondary hypertension (1 source) Hypertensive heart disease with heart failure; Translations: [HTN HEART DISEASE W/HEART FAIL] Onset: 03-28-2021 Chronic Immunizations and screening for infectious disease (2 sources) Contact with and (suspected) exposure to other viral communicable diseases; Translations: [Contact with and (suspected) exposure to other viral communicable diseases] Episodic Other aftercare (1 source) Other retirement (current) drug therapy; Translations: [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 DRUG THERAPY] Onset: 03-28-2021 Episodic Other aftercare (1 source) shelter (current) use of oral hypoglycemic drugs; Translations: [USP USE ORAL HYPOGLYCEMIC DX] Onset: 03-28-2021 Episodic Other and ill-defined heart disease (1 source) Takotsubo cardiomyopathy; Translations: [Takotsubo syndrome] 06-15-2018 Chronic Other and ill-defined heart disease (1 source) Left ventricular cardiac dysfunction; Translations: [Heart disease, unspecified] 06-15-2018 Chronic Other screening for suspected conditions (not mental disorders or infectious disease) (5 sources) Encounter for screening mammogram for malignant neoplasm of breast; Translations: [Other abnormal and inconclusive findings on diagnostic imaging of breast] Onset: 05-03-2021 Episodic Other skin disorders (4 sources) Localized swelling, mass and lump, left upper limb; Translations: [LOC SWELL MASS LUMP LT UPPER LIMB] Onset: 03-18-2021 Episodic Other upper respiratory infections (1 source) Acute upper respiratory infection, unspecified Episodic Secondary malignancies (1 source) Secondary and unspecified malignant neoplasm of axilla and upper limb lymph nodes; Translations: [SEC AND UNS MAL HARRIETT AX AND UP LMB NODES] Onset: 03-28-2021 Chronic Unclassified (1 source) CONTACT W/AND (SUSP) EXPOS COVID-19; Translations: [CONTACT W/AND (SUSP) EXPOS COVID-19] Onset: 03-19-2021 Unclassified (1 source) Malignant neoplasm of unspecified site of left female breast; Translations: [Malignant neoplasm of unspecified site of left female breast] Onset: 05-15-2022 Past or Other Problems Problem Classification Problem Date Documented Date Episodic/Chronic Other eye disorders (4 sources) Dermatochalasis of unspecified eye, unspecified eyelid; Translations: [DERMATOCHALASIS UNS EYE UNS EYELID] Onset: 11-02-2020 Episodic Other skin disorders (4 sources) Localized swelling, mass and lump, trunk; Translations: [LOCALIZD SWELLING MASS AND LUMP TRUNK] Onset: 01-24-2021 Episodic Results Test Name Value Interpretation Reference Range Bhavya Marcial 05-15-2022 CNPN Telephone (NCCAP) ANDREIJOHANNY ([id number]) 1940 F Date Time Provider Department 05/15/22 SIMIN LAMA During your visit today, we recorded the following information about you: Honey Almeida 05/15/2022 1:42 PM Signed Patient is currently at [facility] for her Mammogram. Chrissie is calling to request a new order. 1) Diagnostic Bilateral Mammogram 2) US order (that way they have it if needed) Jyothi: If in agreement, can you please place order PERLITA and I will fax back to her? Thanks! Chrissie: Ph. [phone] Fax. 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 - sacubitril-valsartan (ENTRESTO) 24-26 mg tablet Entresto 24 mg-26 mg tablet TAKE 1 TABLET BY MOUTH TWICE DAILY Problem List As Of Date 05/15/2022 Noted Resolved Carcinoma of breast metastatic to axillary lymp*04/12/2021 Encounter Status:Closed by HONEY AL[facility]IDA [facility] ([id number]) 1940 F Date Time Provider Department 05/15/22 RU THOMAS During your visit today, we recorded the following information about you: Ru Thomas RN 05/15/2022 2:19 PM Signed Received call from pt stating she is at [facility] and needs mammogram orders sent. Orders faxed as requested. Ru Thomas RN Allergies As of Date: 05/15/2022 Noted Allergy Reaction AMINO ACIDS 01/31/2022 14 - Other: See Comments LISINOPRIL 04/05/2021 16 - Unknown PENICILLINS 04/05/2021 14 - Other: See Comments Comments: Dizzy and passed out Date Reviewed: 01/31/2022 Reviewed by: Simin Lama MD - Fully Assessed Reason for Visit: Orders [681] Prescriptions as of 05/15/2022 - aspirin 81 mg cap aspirin low dose 81mg ec - carvedilol (COREG) 3.125 mg tablet Take 3.125 mg by mouth twice daily with meals. - sacubitril-valsartan (ENTRESTO) 24-26 mg tablet Entresto 24 mg-26 mg tablet TAKE 1 TABLET BY MOUTH TWICE DAILY Problem List As Of Date 05/15/2022 Noted Resolved Carcinoma of breast metastatic to axillary lymp*04/12/2021 Encounter Status:Closed by RU THOMAS on 05/15/22 Normal [facility] MM diagnostic mammo BI w/CAD on 05-15-2022 MM diagnostic mammo BI w/CAD [facility] [place] [place] [address] Mammography Report Signed Patient: Johanny Forbes MR#: [id number] : 1940 Acct:[id number] Age/Sex: 82 / F ADM Date: 05/15/22 Loc: [place] Room: Type: [facility] Attending Dr: Simin Lama MD Copies to: DO Simin Vera MD Ordering Provider: Simin Lama MD Date of Service: 05/15/22 MM/MM diagnostic mammo BI w/CAD: C77.3 CLINICAL DATA: History of left axillary lymph node biopsy yielding metastatic breast carcinoma. BilateralDIAGNOSTIC MAMMOGRAM - WITH TOMOSYNTHESIS AND CAD COMPARISON:Mammograms dating back to 05/03/2021 Tomosynthesis imaging was obtained using low-dose digital technique. This examination was reviewed with the aid of CAD. FINDINGS: The breasts are composed of scattered fibroglandular densities. No suspicious areas of architectural distortion, worrisome masses or suspicious microcalcifications. MM/MM diagnostic mammo BI w/CAD IMPRESSION: NO MAMMOGRAPHIC EVIDENCE OF MALIGNANCY. GIVEN THE HISTORY, FURTHER EVALUATION WITH BREAST MRI IS RECOMMENDED. RESULT CODE: 0 Incomplete: Needs Additional Imaging Evaluation DENSITY CODE: 2 (approximately 25-50% glandular) FOLLOW UP: ADD The false-negative rate of mammography is approximately 10-percent. Management of a palpable abnormality must be based on clinical grounds. Patient was entered into a reminder system with a target due date for the next mammogram. Impression dictated by: Jaycob Aguayo Jr., D.O.05/15/2022 2:50 PM Dictation Location: [facility] Transcribed By: GABRIEL 05/15/22 1450 Dictated By: Jaycob Aguayo Jr, DO 05/15/22 1445 Signed By: 05/15/22 1450 [facility] COVID/FLU RT-PCRon 2 SARS-CoV-2 (COVID-19) RNA NA A+probe Ql (Unsp spec) Negative [facility] [place] Other COVID/FLU RT-PCR Negative [facility] Other Respi 02-13-2022 [facility] Telephone (DAGMAR) JOHANNY FORBES ([id number]) 1940 F Date Time Provider Department 02/13/22 SHIVA REYES During your visit today, we recorded the following information about you: Shiva Reyes RN 02/13/2022 2:30 PM Signed Pt called and is requesting to now follow up with Radiation Dr. She states I am getting a little scared and think I have put this off for too long. ABDIFATAH: Please advise ROSA ELENA Pineda MD 02/13/2022 2:40 PM Signed Cab we refer tp Rad onc please Shiva Reyes RN 02/13/2022 2:48 PM Signed PSS: Please call pt to schedule. ROSA ELENA Pineda 02/13/2022 3:46 PM Signed Patient has been scheduled AND notified of appointment. Bhavana Resendez Allergies As of Date: 02/13/2022 Noted Allergy Reaction AMINO ACIDS 01/31/2022 14 - Other: See Comments LISINOPRIL 04/05/2021 16 - Unknown PENICILLINS 04/05/2021 14 - Other: See Comments Comments: Dizzy and passed out Date Reviewed: 01/31/2022 Reviewed by: Simin Lama MD - Fully Assessed Reason for Visit: Appointment [186] Prescriptions as of 02/13/2022 - aspirin 81 mg cap aspirin low dose 81mg ec - carvedilol (COREG) 3.125 mg tablet Take 3.125 mg by mouth twice daily with meals. - sacubitril-valsartan (ENTRESTO) 24-26 mg tablet Entresto 24 mg-26 mg tablet TAKE 1 TABLET BY MOUTH TWICE DAILY Problem List As Of Date 02/13/2022 Noted Resolved Carcinoma of breast metastatic to axillary lymp*04/12/2021 Encounter Status:Closed by SHIVA REYES on 02/13/[address] [facility] CNOVSPon 01-31-2022 CNOVSP Visit (SP) Office (H FAROOQ) JOHANNY FORBES ([id number]) 1940 F Date Time Provider Department 01/31/22 3:15 PM SIMIN LAMA During your visit today, we recorded the following information about you: Temperature Pulse Respiration Blood pressure 97.3 degrees 62/minute 16/minute 142/65 Weight Height 70 kg 1.589 m Simin Lama MD 01/31/2022 3:38 PM Signed PATIENT NAME: Johanny Forbes CLINIC NO.: [id number] ATTENDING PHYSICIAN: Simin Lama MD DATE OF SERVICE: January 31, 2022 Some of the elements of this note have been copied from my previous progress note dated 07/28/2021. All the information has been reviewed carefully. Dear Dr. Jorge Luis Simon, here is an update on a follow up visit on female Johanny Forbes at the clinic 01/31/2022 Diagnosis: Axillary cancer of unknown primary Treatment History: Presented in January 2021 with left-sided axillary swelling over 2 to 3 weeks. This was confirmed by an ultrasound to be a 6.9 cm mass. FNA was nondiagnostic. March 18, 2021 left axillary node excision (Dr. Niño); path consistent with metastatic breast carcinoma, 5 cm, ER 0, [place] 0, HER-2 0 by IHC. The tissue was not evaluated for flow cytometry to rule out a lymphoproliferative process. 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 Differential included mammary, skin, urothelial, pancreaticobiliary and pulmonary primaries. ER 0, [place] 0, HER-2 negative by CAMERON. 2021 PET scan with uptake in the left axillary nodes, probably reactive May 03, 2021 mammogram was notable for an asymmetric density in the left axilla and the recommendation was to proceed with bilateral breast MRI May 03, 2021 tumor board recommendation was to proceed with genetic testing and/or NGS further characterize of unknown primary, referrals to radiation oncology and surgery, and breast MRI May [address] Henson we discussed the role of surgery versus radiation and per notes patient wanted to proceed with radiation; did not follow-up with radiation oncology and declined systemic therapy , Surgery and radiation HPI: Johanny Forbes is a 81 year old year old female here for follow up. Doing well and denies any new complaints. NO fevers and or chills. Denies any chest pain PAST MEDICAL HISTORY Diagnosis Date Appendicitis CAD (coronary artery disease) Diabetes mellitus (HCC) Hyperlipidemia Kidney disease TIA (transient ischemic attack) Social History Tobacco Use Smoking status: Never Smokeless tobacco: Never Vaping Use Vaping Use: Never used Substance Use Topics Alcohol use: Not Currently Drug use: Not Currently FAMILY HISTORY Problem Relation Age of Onset Heart disease Mother Diabetes Mother Heart disease Father COPD Father Past medical, social and family history reviewed without any changes. REVIEW OF SYSTEMS GENERAL: No weight loss, malaise or fevers. No night sweats. HEENT: Negative for headaches, No changes in hearing or vision, no nose bleeds or other nasal problems. RESPIRATORY: Negative for cough, wheezing and shortness of breath CARDIOVASCULAR: Negative for chest pain, leg swelling and palpitations GI: Negative for abdominal discomfort, blood in stools or black stools and change in bowel habits : Negative for dysuria, frequency and incontinence MUSCULOSKELETAL: Negative for joint pain or swelling, back pain, and muscle pain. SKIN: Negative for lesions, rash, and itching. HEMATOLOGY/LYMPHOLOGY Negative for prolonged bleeding, bruising easily, and swollen nodes. NEURO: Negative for numbness or tingling of hands/feet. No weakness. PHYSICAL EXAMINATION: BP 142/65 Pulse 62 Temp (Src) 97.3 (Temporal) Resp 16 Ht 5' 2.559 (1.59m) Wt 154 lb 6.4 oz (70.0kg) SpO2 100% BMI 27.74 kg/(m2). Wt 70 kg (154 lb 6.4 oz) BMI 27.74 kg/m2 Last 3 Encounter Wt Readings: Date: Wt: 01/31/2022 70 kg (154 lb 6.4 oz) 07/28/2021 69.9 kg (154 lb 3.2 oz) 05/12/2021 69.9 kg (154 lb) General appearance:ECOG PERFORMANCE STATUS: 0- Fully active, able to carry on all pre-disease performance w/o restriction. Patient in NAD. Skin: Skin color, texture, turgor normal. No rashes or lesions. Eyes: Anicteric sclera. Pupils are equally round and reactive to light. Extraocular movements are intact. Lymph Nodes: No cervical, supraclavicular, axillary or inguinal adenopathy. Oropharynx: Lips, mucosa, and tongue normal. Back: No pain to percussion. Negative SLR test Lungs clear to auscultation, No wheezing or rhonchi Heart: RRR without murmur, gallop, or rubs. Abdomen soft, non-tender. No masses, organomegaly Extremities: No deformities. No edema Neuro: Gait and speech normal. Reflexes normal and symmetric. Muscular strength intact. Sensation grossly intact. Rectal: Deferred (more content not included)... Normal [facility] CNPNon 01-31-2022 CNPN Telephone (NCCAP) JOHANNY FORBES ([id number]) 1940 F Date Time Provider Department 01/31/22 SIMIN LAMA During your visit today, we recorded the following information about you: Honey Almeida 01/31/2022 4:[address] Lama, patient had a previous abnormal L Mammogram and never followed up. He would like L Mammogram completed now. Faxed order to [place] scheduling per patient's hospital request. Honey lAmeida Allergies As of Date: 01/31/2022 Noted Allergy Reaction AMINO ACIDS 01/31/2022 14 - Other: See Comments LISINOPRIL 04/05/2021 16 - Unknown PENICILLINS 04/05/2021 14 - Other: See Comments Comments: Dizzy and passed out Date Reviewed: 01/31/2022 Reviewed by: Simin Lama MD - Fully Assessed Reason for Visit: Appointment [186] Prescriptions as of 02/01/2022 - aspirin 81 mg cap aspirin low dose 81mg ec - carvedilol (COREG) 3.125 mg tablet Take 3.125 mg by mouth twice daily with meals. - sacubitril-valsartan (ENTRESTO) 24-26 mg tablet Entresto 24 mg-26 mg tablet TAKE 1 TABLET BY MOUTH TWICE DAILY Problem List As Of Date 01/31/2022 Noted Resolved Carcinoma of breast metastatic to axillary lymp*04/12/2021 Encounter Status:Closed by HONEY ALMEIDA on 02/01/22 Normal [facility] SENGKenia 01-30-2022 CNPN Telephone (HEMTSA) JOHANNY FORBES ([id number]) 1940 F Date Time Provider Department 01/30/22 AMANDA HENDERSON During your visit today, we recorded the following information about you: Amanda Henderson RN 01/30/2022 2:32 PM Signed Patient had labs drawn from her PCP on 12/09/21 which contains a CBC and CMP. Patient is due in for a follow up with you for a JAZLYN from Dr. Anand. A 6 month follow up. We have CBC and CMP ordered, patient would rather not have labs drawn if not needed. Will have her labs scanned in. Ok to skip lab draw when comes in this week for her visit? ROSA ELENA Salguero MD 01/30/2022 3:03 PM Signed That's fine with me Amanda Henderson RN 01/30/2022 3:12 PM Signed Patient notified and reviewed appointment time. PSS: Can you take patient off the lab schedule for tomorrow. Thanks, ROSA ELENA Salguero Sec 01/30/2022 3:14 PM Signed Patient taken off the schedule. Allergies As of Date: 01/30/2022 Noted Allergy Reaction LISINOPRIL 04/05/2021 16 - Unknown PENICILLINS 04/05/2021 14 - Other: See Comments Comments: Dizzy and passed out Date Reviewed: 07/28/2021 Reviewed by: Grisel Schaffer - Fully Assessed Reason for Visit: Patient Question [3190] Prescriptions as of 01/30/2022 - aspirin 81 mg cap aspirin low dose 81mg ec - carvedilol (COREG) 3.125 mg tablet Take 3.125 mg by mouth twice daily with meals. 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 Encounter Status:Closed by AMANDA HENDERSON on 01/30/22 Normal [facility] ALBUMIN, RANDOM URINE W/CREA Corrine 12-09-2021 ALBUMIN, URINE 1.7 mg/dL Normal See Note: [facility] Comment on above: Result Comment: Refe rence Range: Reference Range Not established Performed By: #### 7 18, 622, 496, 18223, 27185, 61934, 6399, 7600, 905, 6517 #### [facility] [address], [address] [place] [address] Bilingual Secretary: César Dunn MD ALBUMIN/CREATININE RATIO, RANDOM URINE 23 mcg/mg creat Nor mal <30 [facility] Comment on above: Result Comment: The ADA defines abnormalities in albumin excretion as follows: Albuminuria Category Result (mcg/mg creatinine) Normal to Mildly increased <30 Moderately increased 30-299 Severely increased > OR = 300 The ADA recommends that at least two of three specimens collected within a 3-6 month period be abnormal before considering a patient to be within a diagnostic category. Performed By: #### 7 18, 622, 496, 88154, 43537, 96683, 6399, 7600, 905, 6517 #### [facility] [address], [address] [place] [address] Bilingual Secretary: César Dunn MD Creatinine (U) [Mass/Vol] 74 mg/dL Normal 20-275 [facility] Comment on above: Performed By: #### 7 18, 622, 496, 85719, 78970, 67125, 6399, 7600, 905, 6517 #### [facility] [address], [address] [place] [address] Bilingual Secretary: César Dunn MD CBC (INCLUDES DIFF/PLT)on Basophils (Bld) [#/Vol] 0.044 10*3/uL Normal 0-200 [facility] Comment on above: Performed By: #### 7 18, 622, 496, 00622, 26396, 97270, 6399, 7600, 905, 6517 #### [facility] of [address], [address] [place] [address] Bilingual Secretary: Céasr Dunn MD Basophils/100 WBC (Bld) 0.5 % Normal [facility] Comment on above: Performed By: #### 7 18, 622, 496, 29284, 10447, 04562, 6399, 7600, 905, 6517 #### [facility] of [place] [address] Bilingual Secretary: César Dunn MD Eosinophils (Bld) [#/Vol] 0.29 10*3/uL Normal 15-500 [facility] Comment on above: Performed By: #### 7 18, 622, 496, 72297, 40833, 68320, 6399, 7600, 905, 6517 #### [facility] of [place] [address] Bilingual Secretary: César Dunn MD Eosinophils/100 WBC (Bld) 3.3 % Normal [facility] Comment on above: Performed By: #### 7 18, 622, 496, 88809, 57646, 82574, 6399, 7600, 905, 6517 #### [facility] of [place] [address] Bilingual Secretary: César Dunn MD Erythrocyte distribution wid th (RBC) [Ratio] 12.6 % Normal 11.0-15.0 [facility] Comment on above: Performed By: #### 7 18, 622, 496, 07468, 21018, 06447, 6399, 7600, 905, 6517 #### [facility] of [place] [address] Bilingual Secretary: César Dunn MD Hematocrit (Bld) [Volume fraction] 36.3 % Normal 3 5.0-45.0 [facility] Comment on above: Performed By: #### 7 18, 622, 496, 44040, 98611, 45271, 6399, 7600, 905, 6517 #### [facility] of [place] [address] Bilingual Secretary: César Dunn MD Hemoglobin (Bld) [Mass/Vol] 12.4 g/dL Normal 11.7-15. 5 [facility] Comment on above: Performed By: #### 7 18, 622, 496, 53525, 19144, 36812, 6399, 7600, 905, 6517 #### [facility] of [place] [address] Bilingual Secretary: César Dunn MD Lymphocytes (Bld) [#/Vol] 3.08 10*3/uL Normal 850-3900 [facility] Comment on above: Performed By: #### 7 18, 622, 496, 88501, 68093, 29145, 6399, 7600, 905, 6517 #### [facility] of [place] [address] Bilingual Secretary: César Dunn MD Lymphocytes/100 WBC (Bld) 35.0 % Normal [facility] Comment on above: Performed By: #### 7 18, 622, 496, 18179, 03033, 01970, 6399, 7600, 905, 6517 #### [facility] of [place] [address] Bilingual Secretary: César Dunn MD MCH (RBC) [Entitic mass] 30.7 pg Normal 27.0-33.0 [facility] Comment on above: Performed By: #### 7 18, 622, 496, 57383, 45404, 64722, 6399, 7600, 905, 6517 #### [facility] of [place] [address] Bilingual Secretary: César Dunn MD MCHC (RBC) [Mass/Vol] 34.2 g/dL Normal 32.0-36.[address] [facility] Comment on above: Performed By: #### 7 18, 622, 496, 78571, 87005, 71918, 6399, 7600, 905, 6517 #### [facility] [place] [address] Bilingual Secretary: César Dunn MD MCV (RBC) [Entitic vol] 89.9 fL Normal 80.0-100.0 [facility] Comment on above: Performed By: #### 7 18, 622, 496, 89212, 37207, 17937, 6399, 7600, 905, 6517 #### [facility] [place] [address] Bilingual Secretary: César Dunn MD Monocytes (Bld) [#/Vol] 0.37 10*3/uL Normal 200-950 [facility] Comment on above: Performed By: #### 7 18, 622, 496, 51035, 57714, 12541, 6399, 7600, 905, 6517 #### [facility] of [place] [address] Bilingual Secretary: César Dunn MD Monocytes/100 WBC (Bld) 4.2 % Normal [facility] Comment on above: Performed By: #### 7 18, 622, 496, 19549, 51717, 99726, 6399, 7600, 905, 6517 #### [facility] [place] [address] Bilingual Secretary: César Dunn MD Neutrophils (Bld) [#/Vol] 5.016 10*3/uL Normal 1500-78 00 [facility] Comment on above: Performed By: #### 7 18, 622, 496, 82901, 49933, 29639, 6399, 7600, 905, 6517 #### [facility] of [place] [address] Bilingual Secretary: César Dunn MD Neutrophils/100 WBC (Bld) 57 % Normal [facility] Comment on above: Performed By: #### 7 18, 622, 496, 84964, 53905, 95398, 6399, 7600, 905, 6517 #### [facility] of [address], [address] [place] [address] Bilingual Secretary: César Dunn MD Platelet mean volume (Bld) [Entitic vol] 10.6 fL Normal 7.5-12.5 [facility] Comment on above: Performed By: #### 7 18, 622, 496, 25203, 80847, 92107, 6399, 7600, 905, 6517 #### [facility] of [address], [address] [place] [address] Bilingual Secretary: César Dunn MD Platelets (Bld) [#/Vol] 278 10*3/uL Normal 140-400 [facility] Comment on above: Performed By: #### 7 18, 622, 496, 73910, 57626, 58702, 6399, 7600, 905, 6517 #### [facility] of [address], [address] [place] [address] Bilingual Secretary: César Dunn MD RBC (Bld) [#/Vol] 4.04 10*6/uL Normal 3.80-5.10 [facility] Comment on above: Performed By: #### 7 18, 622, 496, 78062, 73838, 15689, 6399, 7600, 905, 6517 #### [facility] of [address], [address] [place] [address] Bilingual Secretary: César Dunn MD WBC (Bld) [#/Vol] 8.8 10*3/uL Normal 3.8-10.8 [facility] Comment on above: Performed By: #### 7 18, 622, 496, 30226, 89270, 67170, 6399, 7600, 905, 6517 #### [facility] of [address], [address] [place] [address] Bilingual Secretary: César Dunn MD COMPREHENSIVE METABOLIC PANE Luis 08-26-2022 Albumin [Mass/Vol] 4.3 g/dL Normal 3.6-5.1 [facility] Comment on above: Performed By: #### 7 18, 622, 496, 78207, 03381, 25549, 6399, 7600, 905, 6517 #### [facility] of [place] [address] Bilingual Secretary: César Dunn MD Albumin/Globulin [Mass ratio] 1.4 {ratio} Normal 1.0-2 .5 [facility] Comment on above: Performed By: #### 7 18, 622, 496, 32269, 26672, 70444, 6399, 7600, 905, 6517 #### [facility] [place] [address] Bilingual Secretary: César Dunn MD ALP [Catalytic activity/Vol] 66 U/L Normal 37-153 [facility] Comment on above: Performed By: #### 7 18, 622, 496, 55315, 82492, 73349, 6399, 7600, 905, 6517 #### [facility] of [place] [address] Bilingual Secretary: César Dunn MD ALT [Catalytic activity/Vol] 8 U/L Normal 6-29 [facility] Comment on above: Performed By: #### 7 18, 622, 496, 49525, 51192, 13795, 6399, 7600, 905, 6517 #### [facility] [place] [address] Bilingual Secretary: César Dunn MD AST [Catalytic activity/Vol] 16 U/L Normal 10-35 [facility] Comment on above: Performed By: #### 7 18, 622, 496, 99080, 94946, 21107, 6399, 7600, 905, 6517 #### [facility] of [place] [address] Bilingual Secretary: César Dunn MD Bilirubin [Mass/Vol] 0.6 mg/dL Normal 0.2-1.2 [facility] Comment on above: Performed By: #### 7 18, 622, 496, 87395, 93509, 27198, 6399, 7600, 905, 6517 #### [facility] of [address], [address] [place] [address] Bilingual Secretary: César Dunn MD Calcium [Mass/Vol] 9.6 mg/dL Normal 8.6-10.4 [facility] Comment on above: Performed By: #### 7 18, 622, 496, 44083, 73519, 03522, 6399, 7600, 905, 6517 #### [facility] of [place] [address] Bilingual Secretary: César Dunn MD Chloride [Moles/Vol] 108 mmol/L Normal 98-110 [facility] Comment on above: Performed By: #### 7 18, 622, 496, 43384, 53795, 40559, 6399, 7600, 905, 6517 #### [facility] [place] [address] Bilingual Secretary: César Dunn MD CO2 [Moles/Vol] 25 mmol/L Normal 20-32 [facility] Comment on above: Performed By: #### 7 18, 622, 496, 95478, 74991, 24393, 6399, 7600, 905, 6517 #### [facility] [place] [address] Bilingual Secretary: César Dunn MD Creatinine [Mass/Vol] 1.37 mg/dL High 0.60-0.[address] [facility] Comment on above: Performed By: #### 7 18, 622, 496, 39594, 14720, 59383, 6399, 7600, 905, 6517 #### [facility] [place] [address] Bilingual Secretary: César Dunn MD GFR/1.73 sq M.predicted elizabeth g non-blacks MDRD (S/P/Bld) [Vol rate/Area] 39 mL/min/{1.73_m2} Low > OR = 60 [facility] Comment on above: Result Comment: The eGFR is based on the CKD-EPI 2020 equation. To calculate the new eGFR from a previous Creatinine or Cystatin C result, go to https://www.kidney.org/professionals/ kdoqi/gfr%5Fcalculator Performed By: #### 7 18, 622, 496, 45134, 80315, 87822, 6399, 7600, 905, 6517 #### [facility] [address], [address] [place] [address] Bilingual Secretary: César Dunn MD Globulin (S) [Mass/Vol] 3.1 g/dL Normal 1.9-3.7 [facility] Comment on above: Performed By: #### 7 18, 622, 496, 16992, 78808, 97906, 6399, 7600, 905, 6517 #### [facility] [address], [address] [place] [address] Bilingual Secretary: César Dunn MD Glucose [Mass/Vol] 121 mg/dL High 65-99 [facility] Comment on above: Result Comment: Fasting reference interval For someone without known diabetes, a glucose value between 100 and 125 mg/dL is consistent with prediabetes and should be confirmed with a follow-up test. Performed By: #### 7 18, 622, 496, 63320, 48953, 64182, 6399, 7600, 905, 6517 #### [facility] [address], [address] [place], [place] [id number] Bilingual Secretary: César Dunn MD Potassium [Moles/Vol] 4.6 mmol/L Normal 3.5-5.[address] [facility] Comment on above: Performed By: #### 7 18, 622, 496, 76837, 42839, 33668, 6399, 7600, 905, 6517 #### [facility] [address], [address] [place] [address] Bilingual Secretary: César Dunn MD Protein [Mass/Vol] 7.4 g/dL Normal 6.1-8.1 [facility] Comment on above: Performed By: #### 7 18, 622, 496, 25817, 74437, 55488, 6399, 7600, 905, 6517 #### [facility] [place] [address] Bilingual Secretary: César Dunn MD Sodium [Moles/Vol] 139 mmol/L Normal 135-146 [facility] Comment on above: Performed By: #### 7 18, 622, 496, 67701, 46447, 90557, 6399, 7600, 905, 6517 #### [facility] [place] [address] Bilingual Secretary: César Dnun MD Urea nitrogen [Mass/Vol] 22 mg/dL Normal 7-25 [facility] Comment on above: Performed By: #### 7 18, 622, 496, 44983, 14680, 18880, 6399, 7600, 905, 6517 #### [facility] [place] [address] Bilingual Secretary: César Dunn MD Urea nitrogen/Creatinine [Mass ratio] 16 mg/mg Normal 6-22 [facility] Comment on above: Performed By: #### 7 18, 622, 496, 59737, 03544, 82342, 6399, 7600, 905, 6517 #### [facility] [place] [address] Bilingual Secretary: César Dunn MD HEMOGLOBIN A1con 12-09-2021 HEMOGLOBIN A1c 6.7 % of total Hgb High <5.7 [facility] Comment on above: Result Comment: For someone without known diabetes, a hemoglobin A1c value of 6.5% or greater indicates that they may have diabetes and this should be confirmed with a follow-up test. For someone with known diabetes, a value <7% indicates that their diabetes is well controlled and a value greater than or equal to 7% indicates suboptimal control. A1c targets should be individualized based on duration of diabetes, age, comorbid conditions, and other considerations. Currently, no consensus exists regarding use of hemoglobin A1c for diagnosis of diabetes for children. Performed By: #### 7 18, 622, 496, 71455, 73913, 84315, 6399, 7600, 905, 6517 #### [facility] [address], [address] [place] [address] Bilingual Secretary: César Dunn MD LIPID PANEL, [place] [address]-2 Cholesterol [Mass/Vol] 260 mg/dL High <200 [facility] Comment on above: Order Comment: FASTI NG:YES FASTING: YES Performed By: #### 7 18, 622, 496, 10268, 18307, 79894, 6399, 7600, 905, 6517 #### [facility] [address], [address] [place], [place] [address] Bilingual Secretary: César Dunn MD Cholesterol in HDL [Mass/Vol] 38 mg/dL Low > OR = 50 [facility] Comment on above: Order Comment: FASTI NG:YES FASTING: YES Performed By: #### 7 18, 622, 496, 10807, 97285, 05342, 6399, 7600, 905, 6517 #### [facility] [address], [address] [place] [address] Bilingual Secretary: César Dunn MD Cholesterol in LDL [Mass/Vol] 189 mg/dL High [facility] Comment on above: Order Comment: FASTI NG:YES FASTING: YES Result Comment: Refe rence range: <100 Desirable range <100 mg/dL for primary prevention; <70 mg/dL for patients with CHD or diabetic patients with > or = 2 CHD risk factors. LDL-C is now calculated using the Viraj calculation, which is a validated novel method providing better accuracy than the Friedewald equation in the estimation of LDL-C. Tim HUMPHRIES et al. GENA. 2013;310(19): 0266-9948 (http://education.Berry White.Hi-Midia/faq/RMT417) Performed By: #### 7 18, 622, 496, 36552, 57839, 08006, 6399, 7600, 905, 6517 #### [facility] [address], [address] [place] [address] Bilingual Secretary: César Dunn MD Cholesterol.total/Cholestero l in HDL [Mass ratio] 6.8 {ratio} High <5.0 [facility] Comment on above: Order Comment: FASTI NG:YES FASTING: YES Performed By: #### 7 18, 622, 496, 38274, 47796, 20102, 6399, 7600, 905, 6517 #### [facility] [address], [address] [place] [address] Bilingual Secretary: César Dunn MD NON HDL CHOLESTEROL 222 mg/dL (calc) High <130 [facility] Comment on above: Order Comment: FASTI NG:YES FASTING: YES Result Comment: Non- HDL level > or = 220 is very high and may indicate genetic familial hypercholesterolemia (FH). Clinical assessment and measurement of blood lipid levels should be considered for all first-degree relatives of patients with an FH diagnosis. For patients with diabetes plus 1 major ASCVD risk factor, treating to a non-HDL-C goal of <100 mg/dL (LDL-C of <70 mg/dL) is considered a therapeutic option. Performed By: #### 7 18, 622, 496, 43995, 34561, 71397, 6399, 7600, 905, 6517 #### [facility] [address], [address] [place] [address] Bilingual Secretary: César Dunn MD Triglyceride [Mass/Vol] 162 mg/dL High <150 [facility] Comment on above: Order Comment: FASTI NG:YES FASTING: YES Performed By: #### 7 18, 622, 496, 05991, 17769, 79388, 6399, 7600, 905, 6517 #### [facility] [address], [address] [place] [address] Bilingual Secretary: César Dunn MD MAGNESIUMon 12-09-2021 Magnesium [Mass/Vol] 2.1 mg/dL Normal 1.5-2.5 [facility] Comment on above: Performed By: #### 7 18, 622, 496, 66408, 77887, 47415, 6399, 7600, 905, 6517 #### [facility] [place] [address] Bilingual Secretary: César Dunn MD PHOSPHATE ( PHOSPHORUS)on 12-09-2021 Phosphate [Mass/Vol] 3.6 mg/dL Normal 2.1-4.3 [facility] Comment on above: Performed By: #### 7 18, 622, 496, 42894, 32022, 70428, 6399, 7600, 905, 6517 #### [facility] [place] [address] Bilingual Secretary: César Dunn MD PTH, INTACT WITHOUT CALCIUMo n 12-09-2021 PARATHYROID HORMONE, INTACT 64 pg/mL Normal 16-77 [facility] Comment on above: Result Comment: Interpretive Guide Intact PTH Calcium ------- Normal Parathyroid Normal Normal Hypoparathyroidism Low or Low Normal Low Hyperparathyroidism Primary Normal or High High Secondary High Normal or Low Tertiary High High Non-Parathyroid Hypercalcemia Low or Low Normal High Performed By: #### 7 18, 622, 496, 05821, 62110, 26333, 6399, 7600, 905, 6517 #### [facility] [place] [address] Bilingual Secretary: César Dunn MD URIC ACIDon 12-09-2021 Urate [Mass/Vol] 5.1 mg/dL Normal 2.5-7.0 [facility] Comment on above: Result Comment: Ther apeutic target for gout patients: <6.0 mg/dL Performed By: #### 7 18, 622, 496, 80546, 30509, 27166, 6399, 7600, 905, 6517 #### [facility] [address], [address] [place] [address] Bilingual Secretary: César Dunn MD VITAMIN D,25-OH,TOTAL,IAon 0 12-09-2021 VITAMIN D,25-OH,TOTAL,IA 37 ng/mL Normal 30-100 [facility] Comment on above: Result Comment: Isaura min D Status 25-OH Vitamin D: Deficiency: <20 ng/mL Insufficiency: 20 - 29 ng/mL Optimal: > or = 30 ng/mL For 25-OH Vitamin D testing on patients on D2-supplementation and patients for whom quantitation of D2 and D3 fractions is required, the Quest[facility]ure[facility](TM) 25-OH VIT D, (D2,D3), LC/MS/MS is recommended: order code 72804 (patients >2yrs). See Note 1 Note 1 For additional information, please refer to http://education.[employer] [facility]/faq/AZY800 (This link is being provided for informational/ educational purposes only.) Performed By: #### 7 18, 622, 496, 65901, 53147, 57828, 6399, 7600, 905, 6517 #### [facility] [address] , [address] [place] [address] Bilingual Secretary: César Dunn MD CNCOon 11-07-2021 CNCO Letter Text Normal [place] CBC W Auto Differential pane l (Bld)on 07-28-2021 Basophils (Bld) [#/Vol] 0.03 10*3/uL Normal <0.11 [facility] Comment on above: Order Comment: Speci men Type: BLOOD SPECIMENOrdering Facility: [facility] Address: [address] [id number] Performed By: #### 5 7021-8 ####[facility]CL[facility] [id number] [place] [address] Basophils/100 WBC (Bld) 0.4 % Normal [facility] Comment on above: Order Comment: Speci men Type: BLOOD SPECIMENOrdering Facility: [facility] Address: [address] Performed By: #### 5 7021-8 ####[facility] [id number] [place] [address] Differential cell count method Nom (Bld) Auto Normal [facility] Comment on above: Order Comment: Speci men Type: BLOOD SPECIMENOrdering Facility: [facility] Address: [address] [place] [address] Performed By: #### 5 7021-8 ####[facility] [id number] [place] [address] Eosinophils (Bld) [#/Vol] 0.29 10*3/uL Normal <0.46 [facility] Comment on above: Order Comment: Speci men Type: BLOOD SPECIMENOrdering Facility: [facility] Address: [address] [place] [address] Performed By: #### 5 7021-8 ####[facility] [id number] [place] [address] Eosinophils/100 WBC (Bld) 3.7 % Normal [facility] Comment on above: Order Comment: Speci men Type: BLOOD SPECIMENOrdering Facility: [facility] Address: [address] [place] [address] Performed By: #### 5 7021-8 ####[facility] [id number] [place] [address] Erythrocyte distribution wid th (RBC) [Ratio] 13.2 % Normal 11.5-15.0 [facility] Comment on above: Order Comment: Speci men Type: BLOOD SPECIMENOrdering Facility: [facility] Address: [address] [place] [address] Performed By: #### 5 7021-8 ####[facility] [id number] [place] [address] Hematocrit (Bld) [Volume fraction] 37.6 % Normal 3 6.0-46.0 [facility] Comment on above: Order Comment: Speci men Type: BLOOD SPECIMENOrdering Facility: [facility] Address: [address] [place] [address] Performed By: #### 5 7021-8 ####[facility] [id number] [place] [address] Hemoglobin (Bld) [Mass/Vol] 12.1 g/dL Normal 11.5-15. 5 [facility] Comment on above: Order Comment: Speci men Type: BLOOD SPECIMENOrdering Facility: [facility] Address: [address] [place] [address] Performed By: #### 5 7021-8 ####[facility] [id number] [place] [address] IMMATURE GRAN % 0.3 % Normal [facility] Comment on above: Order Comment: Speci men Type: BLOOD SPECIMENOrdering Facility: [facility] Address: [address] [place] [address] Performed By: #### 5 7021-8 ####[facility] [id number] [place] [address] IMMATURE GRAN ABS <0.03 Normal <0.10 [facility] Comment on above: Order Comment: Speci men Type: BLOOD SPECIMENOrdering Facility: [facility] Address: [address] [place] [address] Performed By: #### 5 7021-8 ####[facility] [id number] [place] [address] Lymphocytes (Bld) [#/Vol] 3.28 10*3/uL Normal 1.00-4.0 0 [facility] Comment on above: Order Comment: Speci men Type: BLOOD SPECIMENOrdering Facility: [facility] Address: [address] [place] [address] Performed By: #### 5 7021-8 ####[facility] [id number] [place] [address] Lymphocytes/100 WBC (Bld) 41.8 % Normal [facility] Comment on above: Order Comment: Speci men Type: BLOOD SPECIMENOrdering Facility: [facility] Address: [address] [place] [address] Performed By: #### 5 7021-8 ####[facility] [id number] [place] [address] MCH (RBC) [Entitic mass] 30.0 pg Normal 26.0-34.0 [facility] Comment on above: Order Comment: Speci men Type: BLOOD SPECIMENOrdering Facility: [facility] Address: [address] [place] [address] Performed By: #### 5 7021-8 ####[facility]CL[facility] [id number] [place] [address] MCHC (RBC) [Mass/Vol] 32.2 g/dL Normal 30.5-36.0 [facility] Comment on above: Order Comment: Speci men Type: BLOOD SPECIMENOrdering Facility: [facility] Address: [address] [place] [address] Performed By: #### 5 7021-8 ####[facility] [id number] [place] [address] MCV (RBC) [Entitic vol] 93.3 fL Normal 80.0-100.0 [facility] Comment on above: Order Comment: Speci men Type: BLOOD SPECIMENOrdering Facility: [facility] Address: [address] [place] [address] Performed By: #### 5 7021-8 ####[facility] LABCLIA [id number] [place] [address] Monocytes (Bld) [#/Vol] 0.46 10*3/uL Normal <0.87 [facility] Comment on above: Order Comment: Speci men Type: BLOOD SPECIMENOrdering Facility: [facility] Address: [address] [place] [address] Performed By: #### 5 7021-8 ####[facility] LABCLIA [id number] [place] [address] Monocytes/100 WBC (Bld) 5.9 % Normal [facility] Comment on above: Order Comment: Speci men Type: BLOOD SPECIMENOrdering Facility: [facility] Address: [address] [place] [address] Performed By: #### 5 7021-8 ####[facility] LABCLIA [id number] [place] [address] Neutrophils (Bld) [#/Vol] 3.77 10*3/uL Normal 1.45-7.5 0 [facility] Comment on above: Order Comment: Speci men Type: BLOOD SPECIMENOrdering Facility: [facility] Address: [address] [place] [address] Performed By: #### 5 7021-8 ####[facility] LABCLIA [id number] [place] [address] Neutrophils/100 WBC (Bld) 47.9 % Normal [facility] Comment on above: Order Comment: Speci men Type: BLOOD SPECIMENOrdering Facility: [facility] Address: [address] [place] [address] Performed By: #### 5 7021-8 ####[facility] LABCLIA [id number] [place] [address] Nucleated RBC (Bld) [#/Vol] 10*3/uL Normal <0.01 [facility] Comment on above: Order Comment: Speci men Type: BLOOD SPECIMENOrdering Facility: [facility] Address: [address] [place] [address] Performed By: #### 5 7021-8 ####[facility] LABCLIA [id number] [place] [address] Nucleated RBC/100 WBC (Bld) [Ratio] 0.0 /100 WBC Normal [facility] Comment on above: Order Comment: Speci men Type: BLOOD SPECIMENOrdering Facility: [facility] Address: [address] [place] [address] Performed By: #### 5 7021-8 ####[facility] LABCLIA [id number] [place] [address] Platelet mean volume (Bld) [Entitic vol] 10.6 fL Normal 9.0-12.7 [facility] Comment on above: Order Comment: Speci men Type: BLOOD SPECIMENOrdering Facility: [facility] Address: [address] [place] [address] Performed By: #### 5 7021-8 ####[facility] LABCLIA [id number] [place] [address] Platelets (Bld) [#/Vol] 259 10*3/uL Normal 150-400 [facility] Comment on above: Order Comment: Speci men Type: BLOOD SPECIMENOrdering Facility: [facility] Address: [address] [place] [address] Performed By: #### 5 7021-8 ####[facility] LABCLIA [id number] [place] [address] RBC (Bld) [#/Vol] 4.03 10*6/uL Normal 3.90-5.20 [facility] Comment on above: Order Comment: Speci men Type: BLOOD SPECIMENOrdering Facility: [facility] Address: [address] [place] [address] Performed By: #### 5 7021-8 ####[facility] LABCLIA [id number] [place] [address] WBC (Bld) [#/Vol] 7.85 10*3/uL Normal 3.70-11.00 [facility] Comment on above: Order Comment: Speci men Type: BLOOD SPECIMENOrdering Facility: [facility] Address: [address] [place] [address] Performed By: #### 5 7021-8 ####[facility] LABCLIA [id number] [place] [address] Abs Immature Gran <0.03 <0.10 k/uL [facility] Basophils (Bld) [#/Vol] 0.03 10*3/uL <0.11 k/uL [facility] Basophils/100 WBC (Bld) 0.4 % [facility] Differential cell count meth od Nom (Bld) Auto [facility] Eosinophils (Bld) [#/Vol] 0.29 10*3/uL <0.46 k/ uL [facility] Eosinophils/100 WBC (Bld) 3.7 % [facility] Erythrocyte distribution wid th (RBC) [Ratio] 13.2 % 11.5 - 15.0 % [facility] Hematocrit (Bld) [Volume fraction] 37.6 % 3 6.0 - 46.0 % [facility] Hemoglobin (Bld) [Mass/Vol] 12.1 g/dL 11.5 - 1 5.5 g/dL [facility] Immature Gran % 0.3 % [facility] Lymphocytes (Bld) [#/Vol] 3.28 10*3/uL 1.00 - 4 .00 k/uL [facility] Lymphocytes/100 WBC (Bld) 41.8 % [facility] MCH (RBC) [Entitic mass] 30.0 pg 26.0 - 34.0 pg [facility] MCHC (RBC) [Mass/Vol] 32.2 g/dL 30.5 - 36.0 g/ dL [facility] MCV (RBC) [Entitic vol] 93.3 fL 80.0 - 100.0 fL [facility] Monocytes (Bld) [#/Vol] 0.46 10*3/uL <0.87 k/uL [facility] Monocytes/100 WBC (Bld) 5.9 % [facility] Neutrophils (Bld) [#/Vol] 3.77 10*3/uL 1.45 - 7 .50 k/uL [facility] Neutrophils/100 WBC (Bld) 47.9 % [facility] Nucleated RBC (Bld) [#/Vol] 10*3/uL <0.01 k/ uL [facility] Nucleated RBC/100 WBC (Bld) [Ratio] 0.0 /100 WBC [facility] Platelet mean volume (Bld) [ Entitic vol] 10.6 fL 9.0 - 12.7 fL [facility] Platelets (Bld) [#/Vol] 259 10*3/uL 150 - 400 k /uL [facility] RBC (Bld) [#/Vol] 4.03 10*6/uL 3.90 - 5.20 m/uL [facility] WBC (Bld) [#/Vol] 7.85 10*3/uL 3.70 - 11.00 k/u L [facility] CNOVSPon 07-28-2021 CNOVSP Visit (SP) Office ( EMA) JOHANNY FORBES ([id number]) 1940 F Date Time Provider Department 07/28/21 2:30 PM DRAKE ANAND During your visit today, we recorded the following information about you: Temperature Pulse Respiration Blood pressure 97.9 degrees 56/minute 18/minute 150/74 Weight Height 69.9 kg 1.589 m Drake Anand MD 07/28/2021 3:29 PM Signed BREAST ONCOLOGY FOLLOW UP Elements in this clinic note that are critical to medical decision making have been carefully reviewed and included from my prior clinic note dated: May 12, 2021 July 28, 2021 PCP and other physicians involved in patient's care: Jorge Luis Simon (PCP), Capmbell Marrero DIAGNOSIS: Axillary cancer of unknown primary ONCOLOGIC HISTORY AND TREATMENT DETAILS: ? Presented in January 2021 with left-sided axillary swelling over 2 to 3 weeks. This was confirmed by an ultrasound to be a 6.9 cm mass. FNA was nondiagnostic. ? March 18, 2021 left axillary node excision (Dr. Niño); path consistent with metastatic breast carcinoma, 5 cm, ER 0, [place] 0, HER-2 0 by IHC. The tissue was not evaluated for flow cytometry to rule out a lymphoproliferative process. 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 Differential included mammary, skin, urothelial, pancreaticobiliary and pulmonary primaries. ER 0, [place] 0, HER-2 negative by CAMERON. ? 2021 PET scan with uptake in the left axillary nodes, probably reactive ? May 03, 2021 mammogram was notable for an asymmetric density in the left axilla and the recommendation was to proceed with bilateral breast MRI ? May 03, 2021 tumor board recommendation was to proceed with genetic testing and/or NGS further characterize of unknown primary, referrals to radiation oncology and surgery, and breast MRI ? May [address] Henson we discussed the role of surgery versus radiation and per notes patient wanted to proceed with radiation; did not follow-up with radiation oncology INTERVAL HISTORY: Johanny comes back for follow-up. She is here with her daughter, Karin. No new symptoms. She is here to talk about further steps with regards to her history of left axillary cancer. ROS is negative except that mentioned in HPI PAST MEDICAL SURGICAL FAMILY AND SOCIAL HISTORY: She has a history of ?Type 2 diabetes mellitus, on oral medications ?Coronary artery disease, conservative management ?EF 45% per patient ?Chronic kidney disease stage 3 ?Transient ischemic attack Previous surgeries include appendectomy and DANDC. Family history not contributory for malignancy. She lives with her son and daughter. At baseline, she denies any chronic pain or constipation issues. She is independent with her ADLs and IADLs. MEDICATIONS AND ALLERGIES: Reviewed PHYSICAL EXAM BP 150/74 Pulse (!) 56 Temp 36.6 ?C (97.9 ?F) (Temporal) Resp 18 Ht 158.9 cm (5' 2.56 ) Wt 69.9 kg (154 lb 3.2 oz) LMP (LMP Unknown) SpO2 98% BMI 27.70 kg/m? PS - 0, Head atraumatic, no pallor, icterus or lymphadenopathy, lungs clear to auscultation, heart sounds regular, abdomen soft without distension or organomegaly, neuro grossly non-focal, skin without rash, extremities without swelling, breast exam without evidence of any lumps or bumps in either breast or axillary LABORATORY, IMAGING AND PATHOLOGY Pathology reviewed CBC and CMP reviewed ASSESSMENT AND RECOMMENDATIONS 81 female with excised left axillary lymph node with biopsy showing either a triple negative invasive breast cancer or carcinoma of unknown origin. ? Patient had initially presented with a left axillary mass that was resected and read as triple negative breast cancer. Interval review of the lymph node pathology was not diagnostic of breast cancer and instead read as an unknown primary. Potential primaries could have been mammary, skin, urogenital, pulmonary or pancreaticobiliary. PET scan did not show uptake in the above areas except for a few FDG avid subcentimeter nodes in the left axilla. Her case was presented at tumor board in April 2021 and the recommendation was to proceed with a breast MRI, testing for BRCA1/2, tumor based next generation sequencing and referrals to radiation oncology and surgery. However, patient remained anxious about all the above recommendations and wanted to proceed with minimal interventions. She agreed to meet Dr. Henson and decided against surgery. She also decided against chemotherapy and radiation treatments. Patient does not want a breast MRI with contrast given her history of CKD. She understands that she is deviating from the tumor board recommendations. As a result, I have recommended her to continue with annual mammograms and physical examination. No evidence of recurrence on exam today. Fo (more content not included)... Normal [facility] Comprehensive metabolic 2000 panelon 07-28-2021 Albumin [Mass/Vol] 4.2 g/dL Normal 3.9-4.9 [facility] Comment on above: Order Comment: Speci men Type: BLOOD SPECIMENOrdering Facility: [facility] Address: [address] [place] [address] Performed By: #### 2 4323-8 ####[facility] LABCLIA [id number] [place] [address] ALP [Catalytic activity/Vol] 72 U/L Normal 34-123 [facility] Comment on above: Order Comment: Speci men Type: BLOOD SPECIMENOrdering Facility: [facility] Address: [address] [address] Performed By: #### 2 4323-8 ####[facility] LABCLIA [id number] [place] [address] ALT [Catalytic activity/Vol] 7 U/L Normal 7-38 [facility] Comment on above: Order Comment: Speci men Type: BLOOD SPECIMENOrdering Facility: [facility] Address: [address] Performed By: #### 2 4323-8 ####[facility] LABCLIA [id number] [place] [address] Anion gap [Moles/Vol] 7 mmol/L Low 9-18 [facility] Comment on above: Order Comment: Speci men Type: BLOOD SPECIMENOrdering Facility: [facility] Address: [address] [place] [address] Performed By: #### 2 4323-8 ####[facility] LABCLIA [id number] [place] [address] AST [Catalytic activity/Vol] 17 U/L Normal 13-35 [facility] Comment on above: Order Comment: Speci men Type: BLOOD SPECIMENOrdering Facility: [facility] Address: [address] [place] [address] Performed By: #### 2 4323-8 ####[facility] LABCLIA [id number] [place] [address] Bilirubin [Mass/Vol] 0.4 mg/dL Normal 0.2-1.3 [facility] Comment on above: Order Comment: Speci men Type: BLOOD SPECIMENOrdering Facility: [facility] Address: [address] Performed By: #### 2 4323-8 ####[facility] LABCLIA [id number] [place] [address] Calcium [Mass/Vol] 9.8 mg/dL Normal 8.5-10.2 [facility] Comment on above: Order Comment: Speci men Type: BLOOD SPECIMENOrdering Facility: [facility] Address: [address] [place], [place] [address] Performed By: #### 2 4323-8 ####[facility] LABCLIA [id number] [place] [address] Chloride [Moles/Vol] 105 mmol/L Normal 97-105 [facility] Comment on above: Order Comment: Speci men Type: BLOOD SPECIMENOrdering Facility: [facility] Address: [address] [place] [address] Performed By: #### 2 4323-8 ####[facility] LABCLIA [id number] [place] [address] CO2 [Moles/Vol] 26 mmol/L Normal 22-30 [facility] Comment on above: Order Comment: Speci men Type: BLOOD SPECIMENOrdering Facility: [facility] Address: [address] [place] [address] Performed By: #### 2 4323-8 ####[facility] LABCLIA [id number] [place] [address] Creatinine [Mass/Vol] 1.31 mg/dL High 0.58-0.96 [facility] Comment on above: Order Comment: Speci men Type: BLOOD SPECIMENOrdering Facility: [facility] Address: [address] [place] [address] Performed By: #### 2 4323-8 ####[facility] LABCLIA [id number] [place] [address] ESTIMATED GLOMERULAR FILTRATION RATE 41 mL/min/1.73m??? Low >=60 [facility] Comment on above: Order Comment: Speci men Type: BLOOD SPECIMENOrdering Facility: [facility] Address: [address] [place] [address] Result Comment: Nereyda mated Glomerular Filtration Rate (eGFR) is calculated using the 2020 CKD-EPI creatinine equation. This equation utilizes serum creatinine, sex, and age as parameters. The creatinine assay has traceable calibration to isotope dilution-mass spectrometry. Refer to KDIGO guidelines for clinical interpretation. In patients with unstable renal function, e.g. those with acute kidney injury, the eGFR may not accurately reflect actual GFR. Performed By: #### 2 4323-8 ####[facility] LABIA [id number] [place] [address] Glucose [Mass/Vol] 129 mg/dL High 74-99 [facility] Comment on above: Order Comment: Speci men Type: BLOOD SPECIMENOrdering Facility: [facility] Address: [address] [place] [address] Result Comment: The [place] Diabetes [employer] (ADA) provides guidance for cutoff values for fasting glucose and random glucose. The ADA defines fasting as no caloric intake for at least 8 hours. Fasting plasma glucose results between 100 to 125 mg/dL indicate increased risk for diabetes (prediabetes). Fasting plasma glucose results greater than or equal to 126 mg/dL meet the criteria for diagnosis of diabetes. In the absence of unequivocal hyperglycemia, results should be confirmed by repeat testing. In a patient with classic symptoms of hyperglycemia or hyperglycemic crisis, random plasma glucose results greater than or equal to 200 mg/dL meet the criteria for diagnosis of diabetes. Reference: Standards of Medical Care in Diabetes 2016, [place] [employer]. Diabetes Care. 2016.39(Suppl 1). Performed By: #### 2 4323-8 ####[facility] LABIA [id number] [place] [address] Potassium [Moles/Vol] 4.6 mmol/L Normal 3.7-5.1 [facility] Comment on above: Order Comment: Speci men Type: BLOOD SPECIMENOrdering Facility: [facility] Address: [address] [id number] Performed By: #### 2 4323-8 ####[facility] LABIA [id number] [place] [address] Protein [Mass/Vol] 7.5 g/dL Normal 6.3-8.0 [facility] Comment on above: Order Comment: Speci men Type: BLOOD SPECIMENOrdering Facility: [facility] Address: [address] [place] [address] Performed By: #### 2 4323-8 ####[facility] LABCLIA [id number] [place] [address] Sodium [Moles/Vol] 138 mmol/L Normal 136-144 [facility] Comment on above: Order Comment: Speci men Type: BLOOD SPECIMENOrdering Facility: [facility] Address: [address] [place] [address] Performed By: #### 2 4323-8 ####[facility] LABCLIA [id number] [place] [address] Urea nitrogen [Mass/Vol] 22 mg/dL High 7-21 [facility] Comment on above: Order Comment: Speci men Type: BLOOD SPECIMENOrdering Facility: [facility] Address: [address] [place] [address] Performed By: #### 2 4323-8 ####[facility] LABCLIA [id number] [place] [address] FLOW CYTOMETRY REFLEXon 04-1 CASE REPORT Normal [facility] Comment on above: Order Comment: Speci men Type: BLOOD SPECIMENOrdering Facility: [facility] Address: [address] [place] [address] Result Comment: Flow Cytometry Case: [id number] Authorizing Provider: Drake Anand MD Collected: 07/28/2021 02:03 PM Ordering Location: Laboratory Medicine Received: 07/29/2021 12:43 PM Pathologist: Tang Oquendo MD Specimen: BLOOD Performed By: #### F LOWREFLEX ####[facility] LABCLIA [id number] [place] [address] [place] GROSS DESCRIPTION A. BLOOD. Normal [facility] Comment on above: Order Comment: Speci men Type: BLOOD SPECIMENOrdering Facility: [facility] Address: [address] [place] [address] Result Comment: Rece ived 4ml of peripheral blood in EDTA. Performed By: #### F LOWREFLEX ####[facility] LABCLIA [id number] [address] [place] INTERPRETATION Normal [facility] Comment on above: Order Comment: Speci men Type: BLOOD SPECIMENOrdering Facility: [facility] Address: [address] [place], [place] [id number] Result Comment: Spec imen type: BLOOD CBC (07/28/21): WBC = 7.97 k/uL; Hgb = 12.4 g/dL; Plt = 241 k/uL Differential (%): Neutrophil: 45.7; Lymphocyte: 44.2; Monocyte: 5.8; Eosinophil: 3.5; Basophil: 0.5; Other: IG 0.3 Viability(%): 99% Morphology comments: Small, round mature lymphocytes with scant cytoplasm. FLOW CYTOMETRY PERIPHERAL BLOOD LOW GRADE LEUKEMIA IMMUNOPHENOTYPING Marker Normal Cell Type Result (B-Lymphocyte subset) CD2 T/NK cells Negative CD3 T-cells Negative CD4 T-cell subset Negative CD5 T-cells Positive CD7 T/NK-cells Negative CD8 T-cell subset Negative CD10 B-cell subset Negative CD13 Myeloid Negative CD16/56 NK cells Negative CD19 B-cells Positive CD20 B-cells Positive CD23 B-cells subset Positive CD45 Wood-leukocyte Positive CD79b B-cells Positive CD123 Dendritic Negative CD200 B-cells Positive FMC7 B-cells Positive [place]/Lambda B-cells Monotypic kappa Flow cytometric analysis of the peripheral blood reveals that 46% of total events have the CD45 and side scatter properties of lymphocytes. The lymphocytes are composed of a mixture of heterogenous T-cells (37%; CD4:CD8 ratio = 0.51), NK cells (11%) and B-cells (7%). A minute population of B-cells (1% of lymphocytes; 37 cells/uL) is present that expresses CD5, CD19, CD20, CD23, CD79b, CD200, FMC7, and monotypic kappa surface light chain immunoglobulin. 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 However, the atypical B-cells account for only 37 cells/uL in the peripheral blood. According to current WHO criteria, a minimum of 5,000 abnormal B-cells/uL must be present for a diagnosis of CLL. In the absence of adenopathy or other extramedullary disease, the findings may be best interpreted as a monoclonal B-cell lymphocytosis (MBL). Correlation with the clinical findings is suggested. ANALYTE SPECIFIC REAGENT (ASR) DISCLAIMER This test was developed and its performance characteristics determined by [facility]???s [facility]ignesh [facility] Pathology and Laboratory Medicine [place] ([facility]). It has not been cleared or approved by the FDA. [facility] is regulated under CLIA as qualified to perform high- complexity testing. This test is used for clinical purposes. It should not be regarded as investigational or for research. KST/BB 07/29/21 Diagnostic interpretation performed at [facility], [address] [place] [address] CLIA# [id number] Stove Fitter: Bharath Light M.D. Performed By: #### F LOWREFLEX ####[facility] LABCLIA [id number] [address] OF [facility] PERIPHERAL BLOOD LOW GRADE L EUK MARKERS FCon 07-28-2021 FLOW CYTOMETRY ORDER STATUS See Results in chart under F case ID Normal [facility] gab Comment on above: Order Comment: Speci men Type: BLOOD SPECIMENOrdering Facility: [facility] Address: [address] [place] [address] Performed By: #### P BLGLY ####[facility] LABCLIA [id number] [address] [place] CNPNon 07-22-2021 CNPN Telephone (HEMASA) JOHANNY FORBES ([id number]) 1940 F Date Time Provider Department 07/22/21 RU BLACKMAN During your visit today, we recorded the following information about you: Ru Blackman RN 07/22/2021 2:10 PM Signed Received call from pt stating she spoke with Dr Henson about surgery and he thinks imaging may just be showing inflammation from pt's previous surgery with Dr Niño. Pt is unsure now of what to do and if she still has cancerous cells that need radiation. BHUPENDRAK: Pt is requesting a call from you to discuss further. She can be reached at [phone]. ROSA ELENA Esteban MD 07/22/2021 2:38 PM Signed I spoke with the patient regarding previous recommendations. I have asked her to come and see me in clinic next week at her convenience. PSS-could you please arrange for that? Thanks, MARIE Vallecillo Sec 07/22/2021 2:49 PM Signed Scheduled patient for next week for appointment spoke with gabriel Allergies As of Date: 07/22/2021 Noted Allergy Reaction LISINOPRIL 04/05/2021 16 - Unknown PENICILLINS 04/05/2021 14 - Other: See Comments Comments: Dizzy and passed out Date Reviewed: 05/12/2021 Reviewed by: Grisel Schaffer - Fully Assessed Reason for Visit: Patient Question [0313] Prescriptions as of 07/22/2021 - aspirin 81 mg cap aspirin low dose 81mg ec - carvedilol (COREG) 3.125 mg tablet Take 3.125 mg by mouth twice daily with meals. 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 SJK: Any message for pt? Or she can be reached at [phone]. ROSA ELENA Esteban MD 07/01/2021 2:49 PM Signed At last visit I spoke with her, she did not want the genetic testing done and only wishes to see surgery. Per Dr. Henson's notes, she was then sent back to see Dr. Chapin for radiation but I do not see a follow up. Happy to talk to her in clinic for further follow up and treatments. Thanks, SJK Ru Blackman RN 07/01/2021 3:14 PM Signed Returned call to pt. No answer. Left message informing pt of Dr Anand's response and to return call if any further questions/concerns. Ru Blackman RN Allergies As of Date: 07/01/2021 Noted Allergy Reaction LISINOPRIL 04/05/2021 16 - Unknown PENICILLINS 04/05/2021 14 - Other: See Comments Comments: Dizzy and passed out Date Reviewed: 05/12/2021 Reviewed by: Grisel Schaffer - Fully Assessed Reason for Visit: Results [95] Prescriptions as of 07/04/2021 - aspirin 81 mg cap aspirin low dose 81mg ec - carvedilol (COREG) 3.125 mg tablet Take 3.125 mg by mouth twice daily with meals. 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 INDICATIONS: Secondary malignant neoplasm of axilla Calculator Name NCI Breast Cancer Risk Assessment Tool 5 Year Breast Cancer Risk n/a% Lifetime Breast Cancer Risk n/a% Personal Breast Cancer Yes Personal Ovarian Cancer No Treatments None Family Cancers None LOCATION: [facility] BREAST COMPOSITION: Scattered areas fibroglandular density. FINDINGS: DIAGNOSTIC CATEGORY 0--INCOMPLETE: NEED ADDITIONAL IMAGING EVALUATION. Scattered benign-appearing nodules are present. Scattered benign-appearing calcifications are present. Scattered benign-appearing lymph nodes are present. RIGHT BREAST: No significant suspicious finding. LEFT BREAST: Asymmetric density identified in the left axilla, significantly changed from 2011. This is previously been biopsied on January 24, 2021 and determined to be atypical cells. Bilateral breast MRI is recommended for further evaluation to evaluate primary carcinoma. RECOMMENDATIONS: BREAST MRI: BILATERAL BREASTS PLEASE NOTE: A NORMAL MAMMOGRAM DOES NOT EXCLUDE THE POSSIBILITY OF BREAST CANCER. A CLINICALLY SUSPICIOUS PALPABLE LUMP SHOULD BE BIOPSIED. Dictated by: Tenzin Galvan MD on 05/03/2021 at 14:24 Approved by: Tenzin Galvan MD on 05/03/2021 at 14:29 Normal [facility] l POINT OF CARE GLUCOSEon 12-0 Glucose [Mass/Vol] 169 mg/dL Critically high 74-106 T [facility] Comment on above: Performed By: #### P OCGLUC #### [facility] [address] [place] [address] Dr. Dontae Vallejo CBC AUTO DIFFon 03-14-2021 BASO # 0.1 103/ul Normal 0.0-0.[address] [facility] Comment on above: Performed By: #### C BC #### [facility] [address] [place] [address] Dr. Dontae Vallejo Basophils/100 WBC (Bld) 0.6 % Normal 0.2-2.0 [facility] Comment on above: Performed By: #### C BC #### [facility] [address] [place] [address] Dr. Dontae Vallejo EO # 0.4 103/ul Normal 0.0-0.[address] [facility] Comment on above: Performed By: #### C BC #### [facility] [address] [place] [address] Dr. Dontae Vallejo Eosinophils/100 WBC (Bld) 4.1 % Normal 0.9-7.0 [facility] Comment on above: Performed By: #### C BC #### [facility] [address] [place] [address] Dr. Dontae Vallejo Erythrocyte distribution wid th (RBC) [Ratio] 13.1 % Normal 11.0-15.0 [facility] Comment on above: Performed By: #### C BC #### [facility] [address] [place] [address] Dr. Dontae Vallejo Hematocrit (Bld) [Volume fraction] 37.1 % Normal 3 6.0-48.0 [facility] Comment on above: Performed By: #### C BC #### [facility] [address] [place] [address] Dr. Dontae Vallejo Hemoglobin (Bld) [Mass/Vol] 12.1 g/dL Normal 12.0-16. 0 [facility] Comment on above: Performed By: #### C BC #### [facility] [address] [place] [address] Dr. Dontae Vallejo IG # 0.03 10e3/ul Normal 0.00-0.03 [facility] Comment on above: Performed By: #### C BC #### [facility] [address] [place] [address] Dr. Dontae Vallejo IG % 0.3 % Normal 0.0-0.[address] [facility] Comment on above: Performed By: #### C BC #### [facility] [address] [place] [address] Dr. Dontae Vallejo LYMPH # 4.5 103/ul Critically high 1.2-3.8 [facility] Comment on above: Performed By: #### C BC #### [facility] [address] [place] [address] Dr. Dontae Vallejo Lymphocytes/100 WBC (Bld) 44.8 % Normal 20.5-60.0 [facility] Comment on above: Performed By: #### C BC #### [facility] [address] [place] [address] Dr. Dontae Vallejo MANUAL DIFF REQ NO Normal [facility] Comment on above: Performed By: #### C BC #### [facility] [address] [place] [address] Dr. Dontae Vallejo MCH (RBC) [Entitic mass] 30.3 pg Normal 26.7-34.0 [facility] Comment on above: Performed By: #### C BC #### [facility] [address] [place] [address] Dr. Dontae Vallejo MCHC (RBC) [Mass/Vol] 32.6 g/dL Normal 29.9-35.2 [facility] Comment on above: Performed By: #### C BC #### [facility] [address] [place] [address] Dr. Dontae Vallejo MCV (RBC) [Entitic vol] 92.8 fL Normal 81.0-99.0 [facility] Comment on above: Performed By: #### C BC #### [facility] [address] [place] [address] Dr. Dontae Vallejo MONO # 0.5 103/ul Normal 0.3-0.8 [facility] Comment on above: Performed By: #### C BC #### [facility] [address] [address] [address] Dontae Vallejo Monocytes/100 WBC (Bld) 5.3 % Normal 1.7-12.0 [facility] Comment on above: Performed By: #### C BC #### [facility] [address] [address] [address] Dontae Vallejo NEUT # 4.5 103/ul Normal 1.4-6.5 [facility] Comment on above: Performed By: #### C BC #### [facility] [address] [place] [address] Dr. Dontae Vallejo Neutrophils/100 WBC (Bld) 44.9 % Normal 43.0-75.0 [facility] Comment on above: Performed By: #### C BC #### [facility] [address] [place] [address] Dr. Dontae Vallejo Platelet mean volume (Bld) [Entitic vol] 9.8 fL Normal 9.5-13.5 [facility] Comment on above: Performed By: #### C BC #### [facility] [address] [place] [address] Dr. Dontae Vallejo PLT 251 103/ul Normal 150-450 [facility] Comment on above: Performed By: #### C BC #### [facility] [address] [place] [address] Dr. Dontae Vallejo RBC 4.00 106/ul Critically low 4.20-5.40 [facility] Comment on above: Performed By: #### C BC #### [facility] [address] [place] [address] Dr. Dontae Vallejo WBC 10.1 103/ul Normal 4.0-11.0 [facility] Comment on above: Performed By: #### C BC #### [facility] [address] [place] [address] Dr. Dontae Vallejo [facility]15 SARS-CoV-2 (COVID-19) RNA DEIDRE+probe Ql (Unsp spec) Not detected Normal NOT DETECTED [facility] Comment on above: Result Comment: This test is not yet approved or cleared by the [place] FDA. When there are no FDA-approved or cleared tests available, and other criteria are met, FDA can make tests available under an emergency access mechanism called an Emergency Use Authorization (EUA). The EUA for this test is supported by the Chip Frier of Health and Human Service's (HHS's) declaration that circumstances exist to justify the emergency use of in vitro diagnostics for the detection and/or diagnosis of the virus that causes COVID-19. This EUA will remain in effect (meaning this test can be used) for the duration of the COVID-19 declaration justifying emergency of IVDs, unless it is terminated or revoked by FDA (after which the test may no longer be used). When diagnostic testing is negative, the possibility of a false negative should be considered in the context of a patient's recent exposures and the presence of clinical signs and symptoms consistent with SARS-CoV-2. Performed By: #### C VDTB #### [facility] [address] [place] [address] Dr. Dontae Vallejo PROF CHEM 8 (BAS METB)on Anion gap [Moles/Vol] 10.5 mmol/L Normal [facility] Comment on above: Performed By: #### B MP #### [facility] [address] [place] [address] Dr. Dontae Vallejo Calcium [Mass/Vol] 9.5 mg/dL Normal 8.4-10.2 [facility] Comment on above: Performed By: #### B MP #### [facility] [address] [place] [address] Dr. Dontae Vallejo Chloride [Moles/Vol] 104 mmol/L Normal 98-107 [facility] Comment on above: Performed By: #### B MP #### [facility] [address] [place] [address] Dr. Dontae Vallejo CO2 [Moles/Vol] 26.8 mmol/L Normal 22.0-30.0 [facility] Comment on above: Performed By: #### B MP #### [facility] [id number] [address] Dontae Vallejo Creatinine [Mass/Vol] 1.51 mg/dL Critically high 0.52-1.04 [facility] Comment on above: Performed By: #### B MP #### [facility] [id number] Dontae Vallejo EGFR-AF MICRONESIAN 40 mL/min/1.73m2 Critically low >=60 [facility] Comment on above: Performed By: #### B MP #### [facility] [address] [address] [address] Dontae Vallejo EGFR-NON AF MICRONESIAN 33 mL/min/1.73m2 Critically low >=60 [facility] Comment on above: Performed By: #### B MP #### [facility] [address] [address] [address] Dontae Vallejo Glucose [Mass/Vol] 145 mg/dL Critically high 74-106 T [facility] Comment on above: Performed By: #### B MP #### [facility] [address] [address] [address] Dontae Vallejo Potassium [Moles/Vol] 4.3 mmol/L Normal 3.4-5.0 [facility] Comment on above: Performed By: #### B MP #### [facility] [address] [address] [address] Dontae Vallejo Sodium [Moles/Vol] 137 mmol/L Normal 137-145 [facility] Comment on above: Performed By: #### B MP #### [facility] [id number] Dontae Vallejo Urea nitrogen [Mass/Vol] 29.0 mg/dL Critically high 7.0-17 .0 [facility] Comment on above: Performed By: #### B MP #### [facility] [id number] Dontae Vallejo Urea nitrogen/Creatinine [Mass ratio] 19.2 mg/mg Normal [facility] Comment on above: Performed By: #### B MP #### [facility] [address] [address] [address] Dontae Vallejo US FINE NDL ASP W US GDNCEon 02-07-2021 US FINE NDL ASP W US GDNCE Begin Addendum #1 COLLECTED DATE/TIME: 01/24/2021 14:27 EDT Final Diagnosis Report for [facility], [place] (A/B) LEFT AXILLA MASS; FINE NEEDLE ASPIRATION: - ATYPICAL CELLS ARE PRESENT, SUSPICIOUS FOR MALIGNANCY, SEE NOTE NOTE: Cohesive groups of atypical cells are present, a carcinoma could not be excluded. Tissue biopsy is suggested if clinically indicated. Intradepartmental consultation was obtained with diagnostic concurrence. 02/07/2021 faxed to NP. Sagrario Carey verified report was present in office. Original Report EXAMINATION: US FINE NDL ASP W US GDNCE HISTORY: Localized swelling, mass and lump, trunk COMPARISON: No relevant comparison available. TECHNIQUE: After obtaining informed consent, ultrasound-guided fine needle aspiration was performed in the usual sterile manner. FINDINGS: IMAGING: Ultrasound. BIOPSY NEEDLE: 25-gauge, 1.5 inch LOCATION: 6.9 cm left axillary vascular mass SPECIMEN TYPE: 4 fine-needle aspirates, Cellular tissue. LOCAL ANESTHETIC: 2 mL 1% Buffered Xylocaine. COMPLICATIONS: None. LABORATORY: Prepared slide smears and washings for cell block evaluation. OTHER: 3 aspirates used for slight, fluid aspirated for RPMI. PATHOLOGY: Pending. An addendum will be added when results are available. IMPRESSION: 1. Uneventful ultrasound guided fine needle aspiration (FNA). 2. Pathology results are pending. Normal [facility] LEUKEMIA/LYMPHOMA PROFILEon 01-31-2021 ANALYSIS AND GATING STRATEGY Comment Normal [facility] Comment on above: Result Comment: 8 co geri analysis with 7-AAD, CD45/SSC gating Performed at: -Y Performed By: #### F LOWL #### [facility] [address] [place] [address] Dr. Dontae Vallejo ASSESSMENT OF LEUKOCYTES Comment Normal [facility] Comment on above: Result Comment: Ghulam a and lambda staining cannot be interpreted due to nonspecific light chain binding. A subset of T cells show CD10 expression. CD4:CD8 ratio 2.3 Analysis of the viable lymphoid cells shows: B cells 18%, T cells 82% Performed at: -Y Performed By: #### F LOWL #### [facility] [address] [address] [address] Dontae Vallejo COMMENT Comment Normal [facility] Comment on above: Result Comment: Each antibody in this assay was utilized to assess for potential abnormalities of studied cell populations or to characterize identified abnormalities. . This test was developed and its performance characteristics determined by [employer]. It has not been cleared or approved by the [place]. Food and Drug Administration. . The FDA has determined that such clearance or approval is not necessary. This test is used for clinical purposes. It should not be regarded as investigational or for research. Performed at: TG Performed By: #### F LOWL #### [facility] [address] [address] [address] Dontae Vallejo FLOW COMMENT Comment Normal [facility] Comment on above: Result Comment: Ghulam a and lambda staining cannot be interpreted due to nonspecific light chain binding, and B cell clonality cannot be evaluated. A small subset of T cells show CD10 expression. The finding is nonspecific and can be seen in both reactive process and neoplastic conditions (such as T cell lymphoma of T follicular helper cell origin). The viability of the specimen is low (22%), which suggests the specimen maybe partially compromised due to the presence of non-viable elements. Cytomorphologic correlation is required for definitive diagnosis. Please refer to histology/cytology case for final diagnosis. Performed at: -Y Performed By: #### F LOWL #### [facility] [id number] Dontae Vallejo FLOW INTERPRETATION Comment Normal [facility] Comment on above: Result Comment: B ce ll clonality cannot be evaluated, T cells with CD10 expression in a small subset, low viability specimen, see comment. Performed at: -Y Performed By: #### F LOWL #### [facility] [id number] Dontae Vallejo PHENOTYPE CHART Comment Normal [facility] Comment on above: Result Comment: CD2 Normal CD3 Normal CD4 Normal CD5 Normal CD7 Normal CD8 Normal CD10 See Text CD11b Normal CD19 Normal CD20 Normal CD23 Normal CD38 Normal CD45 Normal CD56 Normal CD57 Normal [facility]-7 Normal HLA-DR Normal KAPPA See Text LAMBDA See Text Performed at: -Y Performed By: #### F LOWL #### [facility] [address] [place] [address] Dr. Dontae Vallejo RESULTING PATH NAME Comment Normal [facility] Comment on above: Result Comment: Raul Oliveros M.D. Performed at: -Y Performed By: #### F LOWL #### [facility] [address] [place] [address] Dr. Dontae Vallejo Specimen type Nom (Spec) Comment Normal [facility] Comment on above: Result Comment: Left axillary mass lymph node Performed at: -Y Performed By: #### F LOWL #### [facility] [address] [place] [address] Dr. Dontae Vallejo VIABILITY Comment Normal [facility] Comment on above: Result Comment: 22% This sample is less than 50% viable, which does not meet the standard for routine analysis. Its analysis is being reported because it is an irreplaceable sample. Because of the diminished certainty for the validity of these results, they must be interpreted in the context of morphological and all other test results. Performed at: -Y Performed By: #### F LOWL #### [facility] [address] [place] [address] Dr. Dontae Vallejo US EXT NON VASC LIMITED LTon 01-07-2021 US EXT NON VASC LIMITED LT EXAMINATION: US EXT NON VASC LIMITED LT HISTORY: Localized swelling, mass and lump, trunk COMPARISON: No relevant comparison available. FINDINGS: Corresponding to the patient's palpable mass is an oval well-circumscribed mildly lobular hyperechogenic hypervascular soft tissue density mass measuring 7.2 x 4.2 x 3.7 cm. The overall shape is suggestive of an enlarged atypical lymph node however no clearly defined cortex or medullary to be visualized IMPRESSION: 7.2 cm axillary mass corresponding to the patient's palpable abnormality, enlarged atypical lymph node versus malignancy. Electronically authenticated by: TENZIN GALVAN Date: 2021-01-07 16:37 Normal [facility] l CBC AUTO DIFFon 11-02-2020 BASO # 0.1 103/ul Normal 0.0-0.1 [facility] Comment on above: Performed By: #### C BC #### [facility] [address] [place], [place] [address] Jose Bambi Basophils/100 WBC (Bld) 0.6 % Normal 0.2-2.0 [facility] Comment on above: Performed By: #### C BC #### [facility] [address] [place], [place] [id number] Jose Bambi EO # 0.4 103/ul Normal 0.0-0.7 [facility] Comment on above: Performed By: #### C BC #### [facility] [address] [place], [place] [id number] Jose Bambi Eosinophils/100 WBC (Bld) 3.7 % Normal 0.9-7.0 [facility] Comment on above: Performed By: #### C BC #### [facility] [address] [place], [place] [id number] Jose Bambi Erythrocyte distribution wid th (RBC) [Ratio] 13.2 % Normal 11.0-15.0 [facility] Comment on above: Performed By: #### C BC #### [facility] [address] [place], [place] [id number] Jose Bambi Hematocrit (Bld) [Volume fraction] 36.1 % Normal 3 6.0-48.0 [facility] Comment on above: Performed By: #### C BC #### [facility] [address] [place], [place] [id number] Jose Bambi Hemoglobin (Bld) [Mass/Vol] 11.7 g/dL Critically low 12.0 -16.0 [facility] Comment on above: Performed By: #### C BC #### [facility] [address] [place], [place] [phone] Jose Bambi IG # 0.03 10e3/ul Normal 0.00-0.03 [facility] Comment on above: Performed By: #### C BC #### [facility] [address] [place], [place] [id number] Jose Bambi IG % 0.3 % Normal 0.0-0.5 [facility] Comment on above: Performed By: #### C BC #### [facility] [address] [id number] Jose Bambi LYMPH # 4.4 103/ul Critically high 1.2-3.8 [facility] Comment on above: Performed By: #### C BC #### [facility] [address] [id number] Jose Bambi Lymphocytes/100 WBC (Bld) 44.9 % Normal 20.5-60.0 [facility] Comment on above: Performed By: #### C BC #### [facility] [address] [place], [place] [phone] Jose Bambi MANUAL DIFF REQ NO Normal [facility] Comment on above: Performed By: #### C BC #### [facility] [address] [place], [place] [id number] Jose Bambi MCH (RBC) [Entitic mass] 30.5 pg Normal 26.7-34.0 [facility] Comment on above: Performed By: #### C BC #### [facility] [address] [place], [place] [phone] Jose Bambi MCHC (RBC) [Mass/Vol] 32.4 g/dL Normal 29.9-35.2 [facility] Comment on above: Performed By: #### C BC #### [facility] [address] [place], [place] [id number] Jose Bambi MCV (RBC) [Entitic vol] 94.0 fL Normal 81.0-99.0 [facility] Comment on above: Performed By: #### C BC #### [facility] [address] [place], [place] [phone] Jose Bambi MONO # 0.6 103/ul Normal 0.3-0.8 [facility] Comment on above: Performed By: #### C BC #### [facility] [address] [place], [place] [id number] Jose Bambi Monocytes/100 WBC (Bld) 5.7 % Normal 1.7-12.0 [facility] Comment on above: Performed By: #### C BC #### [facility] [address] [place], [place] [address] Jose Bambi NEUT # 4.4 103/ul Normal 1.4-6.5 [facility] Comment on above: Performed By: #### C BC #### [facility] [address] [place] [id number] Jose Millarden Neutrophils/100 WBC (Bld) 44.8 % Normal 43.0-75.0 [facility] Comment on above: Performed By: #### C BC #### [facility] [address] [place] [id number] Josevlad Lacy Platelet mean volume (Bld) [ Entitic vol] 11.3 fL Normal 9.5-13.5 [facility] Comment on above: Performed By: #### C BC #### [facility] [address] [place] [id number] Jose Bambi PLT 239 103/ul Normal 150-450 [facility] Comment on above: Performed By: #### C BC #### [facility] [address] [place] [phone] Jose Bambi RBC 3.84 106/ul Critically low 4.20-5.40 [facility] Comment on above: Performed By: #### C BC #### [facility] [address] [place] [id number] Jose Bambi WBC 9.8 103/ul Normal 4.0-11.0 [facility] Comment on above: Performed By: #### C BC #### [facility] [address] [place] [phone] Josevlad Lacy Vital Signs Date Time Vital Sign Value Performing Clinician Facility 03-12-2022 12:15-0500 Body height 160.02 cm Gabi Gaona Other [facility] Other 03-12-2022 12:15-0500 Body mass index (BMI) [Ratio] 26.57 kg/m2 Gabi Gaona Other [facility] Other 03-12-2022 12:15-0500 Body temperature 97.8 [degF] Gabi Candelaria Other [facility] Other 03-12-2022 12:15-0500 Body weight 68.04 kg Gabi Candelaria Other [facility] Other 03-12-2022 12:15-0500 Diastolic blood pressure 68 mm[Hg] Gabi Candelaria Other [facility] Other 03-12-2022 12:15-0500 Respiratory rate 18 /min Gabi Candelaria Other [facility] Other 03-12-2022 12:15-0500 SaO2% (BldA) [Mass fraction] 98 % Gabi Gaona Other [facility] Other 03-12-2022 12:15-0500 Systolic blood pressure 123 mm[Hg] Gabi Candelaria Other [facility] Other 01-31-2022 15:09-0400 Body height 158.9 cm Simin Lama MD Work Phone: [facility] 01-31-2022 15:09-0400 Body temperature 97.3 [degF] Simin Lama MD Work Phone: [facility] 01-31-2022 15:09-0400 Body weight 70.03 kg Simin Lama MD Work Phone: [facility] 01-31-2022 15:09-0400 Diastolic blood pressure 65 mm[Hg] Simin Lama MD Work Phone: [facility] 01-31-2022 15:09-0400 Heart rate 62 /min Simin Lama MD Work Phone: [facility] 01-31-2022 15:09-0400 Respiratory rate 16 /min Simin Lama MD Work Phone: [facility] 01-31-2022 15:09-0400 SaO2% (BldA) [Mass fraction] 100 % Simin Lama MD Work Phone: [facility] 01-31-2022 15:09-0400 Systolic blood pressure 142 mm[Hg] Simin Lama MD Work Phone: [facility] [facility] 07-28-2021 14:24-0400 Body height 158.9 cm Drake Anand MD Work Phone: [facility] 07-28-2021 14:24-0400 Body temperature 97.9 [degF] Drake Anand MD Work Phone: [facility] 07-28-2021 14:24-0400 Body weight 69.94 kg Drake Anand MD Work Phone: [facility] 07-28-2021 14:24-0400 Diastolic blood pressure 74 mm[Hg] Drake Anand MD Work Phone: [facility] 07-28-2021 14:24-0400 Heart rate 56 /min Drake Anand MD Work Phone: [facility] 07-28-2021 14:24-0400 Respiratory rate 18 /min Drake Anand MD Work Phone: [facility] 07-28-2021 14:24-0400 SaO2% (BldA) [Mass fraction] 98 % Drake Anand MD Work Phone: [facility] 07-28-2021 14:24-0400 Systolic blood pressure 150 mm[Hg] Drake Anand MD Work Phone: [facility] Encounters Encounter Date Encounter Type Care Provider Facility Start: 03-16-2023 End: 03-16-2023 ambulatory MAGALI HUIZAR Not Available Start: 05-15-2022 End: 05-15-2022 ambulatory Simin Freemanyarelylou Facility:[facility] Start: 05-15-2022 Telephone encounter Simin stanford MD Work Phone: [facility] Comment on above: Orders Start: 05-15-2022 End: 05-15-2022 ambulatory DO Jorge Luis Furlong Work Phone: [facility] Work Phone: Start: 05-15-2022 End: 05-15-2022 Patient encounter procedure DO Jorge Luis Furlong Work Phone: [facility] Work Phone: Start: 03-12-2022 End: 03-12-2022 ambulatory Gabi Gaona Other [facility] Other Start: 03-12-2022 Office outpatient new 20 minutes Gabi Gaona [facility] [place] Start: 02-13-2022 Telephone encounter Shiva Bess Hematology/Oncology Comment on above: Appointment Start: 01-31-2022 End: 01-31-2022 ambulatory SIMINRA REIDDionna Facility:[facility] Start: 01-31-2022 End: 01-31-2022 ambulatory Simin Lama MD Work Phone: Hematology/Oncology Comment on above: 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, left (HCC) (Primary Dx) Start: 01-31-2022 End: 01-31-2022 Patient encounter procedure Simin Lama MD Work Phone: [facility] Start: 01-31-2022 Telephone encounter Simin stanford MD Work Phone: [facility] Comment on above: Appointment Start: 07-28-2021 End: 07-28-2021 ambulatory DRAKE ANAND Facility:[facility] Start: 07-28-2021 End: 07-28-2021 ambulatory Drake Anand MD Work Phone: Hematology/Oncology Comment on above: 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, left (HCC) (Primary Dx); Lymphocytosis Start: 07-28-2021 End: 07-28-2021 Patient encounter procedure Drake Anand MD Work Phone: [facility] Start: 07-22-2021 Telephone encounter Ru Blackman automotive service advisor/Oncology Comment on above: Patient Question Start: 05-03-2021 End: 05-04-[address] TENZIN GALVAN Facility:[facility] Start: 04-12-2021 Telephone encounter Amarilys hutton PA-C Work Phone: Hematology/Oncology Comment on above: Special Procedures Tech - O ther Start: 03-19-2021 Encounter for prepro cedural cardiovascular examination DR TIM NIÑO [facility] Start: 03-19-2021 Encounter for prepro cedural laboratory examination DR TIM NIÑO [facility] Start: 03-18-2021 End: 03-18-[address] TIM NIÑO Facility:[facility] Start: 03-15-[address] TIM NIÑO Fac ility:[facility] Start: 03-14-2021 End: 03-15-[address] TIM NIÑO Facility:[facility] Start: 03-14-2021 End: 03-15-2021 Encounter for preprocedural cardiovascular examination DR TIM NIÑO Facility:[facility] Start: 01-24-2021 End: 01-24-[address] URBAN LARIOS Facility:[facility] Start: 01-07-2021 End: 01-08-[address] URBAN LARIOS Facility:[facility] Start: 11-02-2020 End: 11-03-[address] DOCTOR ADAME Facility:[facility] Start: 07-08-2018 Patient encounter procedure RIAN ROSS Facility:3 Procedures Date Procedure Procedure Detail Performing Clinician Start: 05-15-2022 Bilateral mammography Anai Simon Work Phone: Start: 05-12-2021 Adult depression scr eening assessment Ru Blackman RN Start: 01-22-2019 Echocardiography Plan of Treatment Date Care Activity Detail Author Start: 07-28-2024 [facility]EN [facility] Start: 04-11-2024 DIABETES SCREEN DIABETES SCREEN [facility] Start: 06-03-2022 End: 08-03-2022 CBC W Auto Differential panel - Blood CBC + DIFF Lab Routine 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, left (HCC) Expected: 06/03/2022 (Approximate), Expires: 08/03/2022 [facility] Work Phone: Comment on above: Expected: 06/03/2022 (Approximate), Expires: 08/03/2022 Start: 06-03-2022 End: 08-03-2022 Comprehensive metabolic 2000 panel - Serum or Plasma COMP METABOLIC PANEL Lab Routine 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, left (HCC) Expected: 06/03/2022 (Approximate), Expires: 08/03/2022 [facility] Work Phone: Comment on above: Expected: 06/03/2022 (Approximate), Expires: 08/03/2022 Start: 05-12-2022 Adult depression screening assessment DEPRESSION SCREENING [facility] Start: 04-16-2022 ADVANCE DIRECTIVE DISCUSSION ADVANCE DIRECTIVE DISCUSSION [facility] Start: 04-16-2022 DEPRESSION ASSESSMENT DEPRESSION ASS ESSMENT [facility] Start: 02-14-2022 End: 03-02-2023 Diagnostic mammography computer-aided detcj uni [facility] Radiology Routine 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, left (HCC) Expected: 02/14/2022, Expires: 03/02/2023 [facility] Work Phone: Comment on above: Expected: 02/14/2022 , Expires: 03/02/2023 Start: 12-15-2021 Influenza vaccination C [facility] Start: 06-07-2021 COVID-19 VACCINE (4 - Booster for Pfizer series) COVID-19 VACCINE (4 - Booster for Pfizer series) [facility] Start: 04-16-2021 ADVANCE DIRECTIVE DISCUSSION ADVANCE DIRECTIVE DISCUSSION [facility] Start: 04-16-2021 DEPRESSION ASSESSMENT DEPRESSION ASS ESSMENT [facility] Start: 04-01-2021 COVID-19 VACCINE (4 - Booster for Pfizer series) COVID-19 VACCINE (4 - Booster for Pfizer series) [facility] Start: 2006 BONE DENSITY BONE DENSITY [facility] Start: 1991 SHINGRIX VACCINE (1 of 2) SHINGRIX VACCINE (1 of 2) [facility] Start: 1960 Urine microalbumin profile DTAP,TDAP,TD (1 - Tdap) [facility] End: 07-28-2022 CBC W Auto Differential panel - Blood CBC + DIFF Lab Routine 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, left (HCC) Every 3 months for 10 Occurrences starting 07/28/2021 until 07/28/2022, 1 completed [facility] Work Phone: Comment on above: Every 3 months for 1 0 Occurrences starting 07/28/2021 until 07/28/2022, 1 completed End: 07-28-2022 Comprehensive metabolic 2000 panel - Serum or Plasma COMP METABOLIC PANEL Lab Routine 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, left (HCC) Every 3 months for 10 Occurrences starting 07/28/2021 until 07/28/2022 [facility] Work Phone: Comment on above: Every 3 months for 1 0 Occurrences starting 07/28/2021 until 07/28/2022 End: 06-14-2023 Diagnostic mammography computer-aided detcj bi [facility] Radiology Routine 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, left (HCC) 1 Occurrences starting 05/15/2022 until 06/14/2023 [facility] Work Phone: Comment on above: 1 Occurrences starti ng 05/15/2022 until 06/14/2023 End: 08-27-2022 Screening mammography bi 2-view breast inc cad DANIELLE SCREENING Radiology Routine 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, left (HCC) 1 Occurrences starting 07/28/2021 until 08/27/2022 [facility] Work Phone: Comment on above: 1 Occurrences starti ng 07/28/2021 until 08/27/2022 End: 06-14-2023 Us breast uni real time with image limited [facility] Work Phone: Comment on above: 1 Occurrences starti ng 05/15/2022 until 06/14/2023 [facility] Immunizations Immunization Date Immunization Notes Care Provider Fa cility 02-04-2021 COVID-19 vaccine, ag e 12+ yr (PFIZER-BIONTECH - PURPLE TOP) Ru Blackman RN [facility] 06-03-2020 COVID-19 vaccine, ag e 12+ yr (PFIZER-BIONTECH - PURPLE TOP) Ru Blackman RN [facility] 05-12-2020 COVID-19 vaccine, ag e 12+ yr (PFIZER-BIONTECH - PURPLE TOP) Ru Blackman RN [facility] 12-26-2019 influenza, high dose seasonal, preservative-free Ru Blackman RN [facility] 01-24-2018 influenza, high dose seasonal, preservative-free Ru Blackman RN [facility] 01-25-2017 influenza, high dose seasonal, preservative-free Ru Blackman [facility] 10-12-2014 pneumococcal conjuga te vaccine, 13 valent Ru Blackman RN [facility] 04-05-2010 pneumococcal polysaccharide vaccine, 23 valent Ru Blackman [facility] Payers Date Payer Category Payer Self-pay [id number] 2018 Unknown ANTHEM BLUE CROS S AND BLUE SHIELD ANTHEM MEDIBLUE O [id number] 2018-Present [phone] [id number] [facility] [id number] 2018 Unknown ANTHEM BLUE CROS S AND BLUE SHIELD ANTHEM MEDIBLUE O [id number] 2018-Present [phone] [address] [place] [id number] O [id number] 1959 Unknown [id number] 1941 Unknown [id number] 1941 Unknown [id number] 1941 Unknown [id number] 1941 Unknown [id number] 1941 Unknown [id number] 1941 Unknown [id number] 1941 Unknown [id number] 1941 Unknown [id number] 1941 Unknown [id number] 9 Unknown [id number] Social History Date Type Detail Facility Start: 04-05-2021 Tobacco smoking status NHIS Never smoked tobacco [facility] Start: 04-05-2021 Tobacco use and exposure Smokeless tobacco non-user [facility] Start: 05-12-2021 End: 01-31-2022 Alcohol intake Ex-drinker (finding) [facility] Start: 1940 Sex Assigned At Not on file [facility] Start: 07-18-2021 End: 01-31-2022 Exposure to SARS-CoV-2 (event) Not sure [facility] Sex Assigned At Sex Assigned At [facility] Other Start: 1940 Sex Assigned At Female F [facility] Clinical Notes 03-18-2021 to 05-15-2022 Telephone Encounter - Ru Thomas RN - 05/15/2022 2:18 PM ESTTelephone Encounter - Honey Almeida - 05/15/2022 2:15 PM ESTTelephone Encounter - Honey Juan Pablo - 05/15/2022 2:14 PM EST Note Date & Type Note Facility 05-15-2022 Miscellaneous Notes Formattin g of this note might be different from the original. Received call from pt stating she is at [facility] and needs mammogram orders sent. Orders faxed as requested. Ru Thomas RN documented in this encounter [facility] 05-15-2022 Miscellaneous Notes Formattin g of this note might be different from the original. Faxed order to Chrissie May 15, 2022 2:15 PM Honey Almeida Faxed order to Chrissie May 15, 2022 2:15 PM Honey Almeida Ordered Patient is currently at [facility] for her Mammogram. Chrissie is calling to request a new order. 1) Diagnostic Bilateral Mammogram 2) US order (that way they have it if needed) ABDIFATAH/Amarilys: If in agreement, can you please place order PERLITA and I will fax back to her? Thanks! Chrissie: Ph. [phone] Fax. [phone] Honey Almeiad documented in this encounter [facility] 03-12-2022 Evaluation note Encounter Date Diagnosis Assessment Notes Feb, Contact with and (suspected) exposure to other viral communicable diseases (ICD-10 - Z20.828) Feb, Viral upper respiratory infection (ICD-10 - J06.9) Viral upper respiratory infection: adult home care material was printed Drink plenty fluids, get plenty of rest. Continue home medications as prescribed. Take Tylenol or Motrin as needed for aches pains or fevers. Follow-up with your family physician if no improvement in 2 to 3 days. [facility] Other 10-31-2022 Miscellaneous Notes* Telephone Encounter - Bhavana Resendez - 02/13/2022 3:46 PM EDT Patient has been scheduled & notified of appointment. Bhavana Resendez * Telephone Encounter - Shiva Reyes RN - 02/13/2022 2:47 PM EDT PSS: Please call pt to schedule. Shiva Reyes RN * Telephone Encounter - Simin Lama MD - 02/13/2022 2:40 PM EDT Cab we refer tp Rad onc please * Telephone Encounter - Shiva Reyes RN - 02/13/2022 2:28 PM EDT Pt called and is requesting to now follow up with Radiation Dr. Safia states I am getting a little scared and think I have put this off for too long. ABDIFATAH: Please advise Shiva Reyes RN [facility] NoteHNO ID: [id number] Author: Simin Lama MD Service: ? Author Type: Physician Type: Progress Notes Filed: 01/31/2022 3:38 PM Note Text: PATIENT NAME: Johanny Forbes [facility] NO.: [id number] ATTENDING PHYSICIAN: Simin Lama MD DATE OF SERVICE: January 31, 2022 Some of the elements of this note have been copied from my previous progress note dated 07/28/2021. All the information has been reviewed carefully. Dear Dr. Jorge Luis Simon, here is an update on a follow up visit on female Johanny Forbes at the clinic 01/31/2022 Diagnosis: Axillary cancer of unknown primary Treatment History: Presented in January 2021 with left-sided axillary swelling over 2 to 3 weeks. This was confirmed by an ultrasound to be a 6.9 cm mass. FNA was nondiagnostic. March 18, 2021 left axillary node excision (Dr. Niño); path consistent with metastatic breast carcinoma, 5 cm, ER 0, WY 0, HER-2 0 by IHC. The tissue was not evaluated for flow cytometry to rule out a lymphoproliferative process. 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 Differential included mammary, skin, urothelial, pancreaticobiliary and pulmonary primaries. ER 0, W[place] 0, HER-2 negative by [facility]. 2021 PET scan with uptake in the left axillary nodes, probably reactive May 03, 2021 mammogram was notable for an asymmetric density in the left axilla and the recommendation was to proceed with bilateral breast MRI May 03, 2021 tumor board recommendation was to proceed with genetic testing and/or NGS further characterize of unknown primary, referrals to radiation oncology and surgery, and breast MRI May [address] Henson we discussed the role of surgery versus radiation and per notes patient wanted to proceed with radiation; did not follow-up with radiation oncology and declined systemic therapy , Surgery and radiation HPI: Johanny Forbes is a 81 year old year old female here for follow up. Doing well and denies any new complaints. NO fevers and or chills. Denies any chest pain PAST MEDICAL HISTORY Diagnosis Date Appendicitis CAD (coronary artery disease) Diabetes mellitus (HCC) Hyperlipidemia Kidney disease TIA (transient ischemic attack) Social History Tobacco Use Smoking status: Never Smokeless tobacco: Never Vaping Use Vaping Use: Never used Substance Use Topics Alcohol use: Not Currently Drug use: Not Currently FAMILY HISTORY Problem Relation Age of Onset Heart disease Mother Diabetes Mother Heart disease Father COPD Father Past medical, social and family history reviewed without any changes. REVIEW OF SYSTEMS GENERAL: No weight loss, malaise or fevers. No night sweats. HEENT: Negative for headaches, No changes in hearing or vision, no nose bleeds or other nasal problems. RESPIRATORY: Negative for cough, wheezing and shortness of breath CARDIOVASCULAR: Negative for chest pain, leg swelling and palpitations GI: Negative for abdominal discomfort, blood in stools or black stools and change in bowel habits : Negative for dysuria, frequency and incontinence MUSCULOSKELETAL: Negative for joint pain or swelling, back pain, and muscle pain. SKIN: Negative for lesions, rash, and itching. HEMATOLOGY/LYMPHOLOGY Negative for prolonged bleeding, bruising easily, and swollen nodes. NEURO: Negative for numbness or tingling of hands/feet. No weakness. PHYSICAL EXAMINATION: BP 142/65 Pulse 62 Temp (Src) 97.3 (Temporal) Resp 16 Ht 5' 2.559 (1.59m) Wt 154 lb 6.4 oz (70.0kg) SpO2 100% BMI 27.74 kg/(m2). Wt 70 kg (154 lb 6.4 oz) BMI 27.74 kg/m2 Last 3 Encounter Wt Readings: Date: Wt: 01/31/2022 70 kg (154 lb 6.4 oz) 07/28/2021 69.9 kg (154 lb 3.2 oz) 05/12/2021 69.9 kg (154 lb) General appearance:ECOG PERFORMANCE STATUS: 0- Fully active, able to carry on all pre-disease performance w/o restriction. Patient in NAD. Skin: Skin color, texture, turgor normal. No rashes or lesions. Eyes: Anicteric sclera. Pupils are equally round and reactive to light. Extraocular movements are intact. Lymph Nodes: No cervical, supraclavicular, axillary or inguinal adenopathy. Oropharynx: Lips, mucosa, and tongue normal. Back: No pain to percussion. Negative SLR test Lungs clear to auscultation, No wheezing or rhonchi Heart: RRR without murmur, gallop, or rubs. Abdomen soft, non-tender. No masses, organomegaly Extremities: No deformities. No edema Neuro: Gait and speech normal. Reflexes normal and symmetric. Muscular strength intact. Sensation grossly intact. Rectal: Deferred : Deferred Breast: No masses and also no skin changes and also no axillary masses LABS: Glucose (mg/dL) Date Value 07/28/2021 129 04/11/2021 128 Potassium (mmol/L) Date Value 07/28/2021 4.6 04/11/2021 4.5 Sodium (mmol/L) Date Value 07/28/2021 138 04/11/2021 141 Chloride (mmol (more content not included)...[facility] 01-31-2022 Miscellaneous Notes* Telephone Encounter - Honey Almeida - 01/31/2022 4:[address] Lama, patient had a previous abnormal L Mammogram and never followed up. He would like L Mammogram completed now. Faxed order to [facility] scheduling per patient's hospital request. Honey Almeida [facility] History of Present illness Narrative* Simin Lama MD - 01/31/2022 3:19 PM EDT PATIENT NAME: Johanny Forbes CLINIC NO.: [id number] ATTENDING PHYSICIAN: Simin Lama MD DATE OF SERVICE: January 31, 2022 Some of the elements of this note have been copied from my previous progress note dated 07/28/2021. All the information has been reviewed carefully. Dear Dr. Jorge Luis Simon, here is an update on a follow up visit on female Johanny Forbes at the clinic 01/31/2022 Diagnosis: Axillary cancer of unknown primary Treatment History: Presented in January 2021 with left-sided axillary swelling over 2 to 3 weeks. This was confirmed by an ultrasound to be a 6.9 cm mass. FNA was nondiagnostic. March 18, 2021 left axillary node excision (Dr. Niño); path consistent with metastatic breast carcinoma, 5 cm, ER 0, W[place] 0, HER-2 0 by IHC. The tissue was not evaluated for flow cytometry to rule out a lymphoproliferative process. 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 Differential included mammary, skin, urothelial, pancreaticobiliary and pulmonary primaries. ER 0, W[place] 0, HER-2 negative by [facility]. 2021 PET scan with uptake in the left axillary nodes, probably reactive May 03, 2021 mammogram was notable for an asymmetric density in the left axilla and the recommendation was to proceed with bilateral breast MRI May 03, 2021 tumor board recommendation was to proceed with genetic testing and/or NGS further characterize of unknown primary, referrals to radiation oncology and surgery, and breast MRI May [address] Henson we discussed the role of surgery versus radiation and per notes patient wanted to proceed with radiation; did not follow-up with radiation oncology and declined systemic therapy , Surgery and radiation HPI: Johanny Forbes is a 81 year old year old female here for follow up. Doing well and denies any new complaints. NO fevers and or chills. Denies any chest pain PAST MEDICAL HISTORY Diagnosis Date Appendicitis CAD (coronary artery disease) Diabetes mellitus (HCC) Hyperlipidemia Kidney disease TIA (transient ischemic attack) Social History Tobacco Use Smoking status: Never Smokeless tobacco: Never Vaping Use Vaping Use: Never used Substance Use Topics Alcohol use: Not Currently Drug use: Not Currently FAMILY HISTORY Problem Relation Age of Onset Heart disease Mother Diabetes Mother Heart disease Father COPD Father Past medical, social and family history reviewed without any changes. REVIEW OF SYSTEMS GENERAL: No weight loss, malaise or fevers. No night sweats. HEENT: Negative for headaches, No changes in hearing or vision, no nose bleeds or other nasal problems. RESPIRATORY: Negative for cough, wheezing and shortness of breath CARDIOVASCULAR: Negative for chest pain, leg swelling and palpitations GI: Negative for abdominal discomfort, blood in stools or black stools and change in bowel habits : Negative for dysuria, frequency and incontinence MUSCULOSKELETAL: Negative for joint pain or swelling, back pain, and muscle pain. SKIN: Negative for lesions, rash, and itching. HEMATOLOGY/LYMPHOLOGY Negative for prolonged bleeding, bruising easily, and swollen nodes. NEURO: Negative for numbness or tingling of hands/feet. No weakness. PHYSICAL EXAMINATION: BP 142/65 Pulse 62 Temp (Src) 97.3 (Temporal) Resp 16 Ht 5' 2.559 (1.59m) Wt 154 lb 6.4 oz (70.0kg) SpO2 100% BMI 27.74 kg/(m^2). Wt 70 kg (154 lb 6.4 oz) BMI 27.74 kg/m2 Last 3 Encounter Wt Readings: Date: Wt: 01/31/2022 70 kg (154 lb 6.4 oz) 07/28/2021 69.9 kg (154 lb 3.2 oz) 05/12/2021 69.9 kg (154 lb) General appearance:ECOG PERFORMANCE STATUS: 0- Fully active, able to carry on all pre-disease performance w/o restriction. Patient in NAD. Skin: Skin color, texture, turgor normal. No rashes or lesions. Eyes: Anicteric sclera. Pupils are equally round and reactive to light. Extraocular movements are intact. Lymph Nodes: No cervical, supraclavicular, axillary or inguinal adenopathy. Oropharynx: Lips, mucosa, and tongue normal. Back: No pain to percussion. Negative SLR test Lungs clear to auscultation, No wheezing or rhonchi Heart: RRR without murmur, gallop, or rubs. Abdomen soft, non-tender. No masses, organomegaly Extremities: No deformities. No edema Neuro: Gait and speech normal. Reflexes normal and symmetric. Muscular strength intact. Sensation grossly intact. Rectal: Deferred : Deferred Breast: No masses and also no skin changes and also no axillary masses LABS: Glucose (mg/dL) Date Value 07/28/2021 129 04/11/2021 128 Potassium (mmol/L) Date Value 07/28/2021 4.6 04/11/2021 4.5 Sodium (mmol/L) Date Value 07/28/2021 138 04/11/2021 141 Chloride (mmol/L) Date Value 07/28/2021 105 04/11/2021 106 CO2 (mmol/L) Date Value 07/28/2021 26 04/11/2021 24 Creatinine (mg/dL) Date Value 07/28/2021 1.31 04/11/2021 1.33 BUN (mg/dL) Date Value 07/28/2021 22 04/11/2021 23 Anion Gap (mmol/L) Date Value 07/28/2021 7 04/11/2021 11 Calcium (mg/dL) Date Value 04/11/2021 9.9 Calcium, Total (mg/dL) Date Value 07/28/2021 9.8 Protein, Total (g/dL) Date Value 07/28/2021 7.5 04/11/2021 7.8 Albumin (g/dL) Date Value 07/28/2021 4.2 04/11/2021 4.4 Bilirubin, Total (mg/dL) Date Value 07/28/2021 0.4 04/11/2021 0.3 Alkaline Phosphatase (U/L) Date Value 07/28/2021 72 04/11/2021 80 AST (U/L) Date Value 07/28/2021 17 04/11/2021 18 ALT (U/L) Date Value 07/28/2021 7 04/11/2021 10 WBC Date Value Ref Range Status 07/28/2021 7.85 3.70 - 11.00 k/uL Final RBC Date Value Ref Range Status 07/28/2021 4.03 3.90 - 5.20 m/uL Final Hemoglobin Date Value Ref Range Status 07/28/2021 12.1 11.5 - 15.5 g/dL Final Hematocrit Date Value Ref Range Status 07/28/2021 37.6 36.0 - 46.0 % Final MCV Date Value Ref Range Status 07/28/2021 93.3 80.0 - 100.0 fL Final MCH Date Value Ref Range Status 07/28/2021 30.0 26.0 - 34.0 pg Final MCHC Date Value Ref Range Status 07/28/2021 32.2 30.5 - 36.0 g/dL Final RDW-CV Date Value Ref Range Status 07/28/2021 13.2 11.5 - 15.0 % Final Platelet Count Date Value Ref Range Status 07/28/2021 259 150 - 400 k/uL Final MPV Date Value Ref Range Status 07/28/2021 10.6 9.0 - 12.7 fL Final Abs Neut Date Value Ref Range Status 07/28/2021 3.77 1.45 - 7.50 k/uL Final Lymph% Date Value Ref Range Status 07/28/2021 41.8 % Final Abs Lymph Date Value Ref Range Status 07/28/2021 3.28 1.00 - 4.00 k/uL Final Levy% Date Value Ref Range Status 07/28/2021 5.9 % Final Abs Levy Date Value Ref Range Status 07/28/2021 0.46 <0.87 k/uL Final Eosin% Date Value Ref Range Status 07/28/2021 3.7 % Final Abs Eosin Date Value Ref Range Status 07/28/2021 0.29 <0.46 k/uL Final Baso% Date Value Ref Range Status 07/28/2021 0.4 % Final Abs Baso Date Value Ref Range Status 07/28/2021 0.03 <0.11 k/uL Final PATH: Left axilla, excision (A1 to A16, immunostains) - Metastatic carcinoma involving a lymph node, (please see comment). 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 Per submitted immunostains, the metastatic carcinoma is positive for CKAE1/3, CAM5.2, CK7, CK20, GATA3 and GCDFP-15 and negative for CDX-2, CK5/6, mammaglobin and SOX-10. TTF-1 shows rare, weak immunoreactivity. The histomorphology and immunohistochemical staining pattern is not specific to site of origin. The differential includes mammary, skin, urothelial, pancreatobiliary and pulmonary primaries, among others. Please correlate with clinical and radiologic findings. This case has been reviewed during breast consensus conference on 04/28/2021, via telepathology, by Miara Saunders Booth and Ryan, of the [facility] breast pathology department, who concur. Metastatic carcinoma is estrogen receptor: negative (<1%) and progesterone receptor: negative (<1%). Results of molecular analysis for HER2 amplification negative. Imaging: PET 04/2021: 1. NECK: * No FDG avid neoplastic process. 2. CHEST: * Few FDG avid left axillary and subpectoral lymph nodes with adjacent postprocedural changes. Otherwise no FDG avid neoplastic process in the chest. 3. ABDOMEN/PELVIS: * No FDG avid neoplastic process. * 3.7 cm infrarenal aortic, 1.5 cm splenic and 1.9 cm right common iliac aneurysms. 4. EXTREMITIES/SKELETON: * No suspicious FDG avid osseous lesion. Assessment and Plan: Johanny Forbes is a 81 year old year old female here for follow up. Axillary only adenopathy in the L axilla c/w breast primary TN. Patient declines XRT, surgery and breat MRI. Clinically doing well. Will schedule for a diagnostic L mammogram Otherwise see back in 4 months for follow up Thank you for the kind referral. If there are any questions and or concerns please do not hesitate to contact me at [phone]. Simin Lama MD Hematology/Medical Oncology [facility] I spent a total of 30 minutes on the date of the service which included preparing to see the patient, [id number] patient care, completing clinical documentation, obtaining and/or reviewing separately obtained history, performing a medically appropriate examination, counseling and educating the pat ient/family/caregiver, and ordering medications, tests, or procedures. Medical Decision Making: Medical Decision Making Level: 1 - N/A CC: DO Jorge Luis Webster DO documented in this encounterC[facility]-2022 NoteHNO ID: [id number] Author: Drake Anand MD Service: ? Author Type: Physician Type: Progress Notes Filed: 07/28/2021 3:29 PM Note Text: BREAST ONCOLOGY FOLLOW UP Elements in this clinic note that are critical to medical decision making have been carefully reviewed and included from my prior clinic note dated: May 12, 2021 July 28, 2021 PCP and other physicians involved in patient's care: Jorge Luis Simon (PCP), Tim Niño, Campbell Henson DIAGNOSIS: Axillary cancer of unknown primary ONCOLOGIC HISTORY AND TREATMENT DETAILS: ? Presented in January 2021 with left-sided axillary swelling over 2 to 3 weeks. This was confirmed by an ultrasound to be a 6.9 cm mass. FNA was nondiagnostic. ? March 18, 2021 left axillary node excision (Dr. Niño); path consistent with metastatic breast carcinoma, 5 cm, ER 0, W[place] 0, HER-2 0 by IHC. The tissue was not evaluated for flow cytometry to rule out a lymphoproliferative process. 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 Differential included mammary, skin, urothelial, pancreaticobiliary and pulmonary primaries. ER 0, W[place] 0, HER-2 negative by CAMERON. ? 2021 PET scan with uptake in the left axillary nodes, probably reactive ? May 03, 2021 mammogram was notable for an asymmetric density in the left axilla and the recommendation was to proceed with bilateral breast MRI ? May 03, 2021 tumor board recommendation was to proceed with genetic testing and/or NGS further characterize of unknown primary, referrals to radiation oncology and surgery, and breast MRI ? May [address] Henson we discussed the role of surgery versus radiation and per notes patient wanted to proceed with radiation; did not follow-up with radiation oncology INTERVAL HISTORY: Johanny comes back for follow-up. She is here with her daughter, Karin. No new symptoms. She is here to talk about further steps with regards to her history of left axillary cancer. ROS is negative except that mentioned in HPI PAST MEDICAL SURGICAL FAMILY AND SOCIAL HISTORY: She has a history of ?Type 2 diabetes mellitus, on oral medications ?Coronary artery disease, conservative management ?EF 45% per patient ?Chronic kidney disease stage 3 ?Transient ischemic attack Previous surgeries include appendectomy and DANDC. Family history not contributory for malignancy. She lives with her son and daughter. At baseline, she denies any chronic pain or constipation issues. She is independent with her ADLs and IADLs. MEDICATIONS AND ALLERGIES: Reviewed PHYSICAL EXAM BP 150/74 Pulse (!) 56 Temp 36.6 ?C (97.9 ?F) (Temporal) Resp 18 Ht 158.9 cm (5' 2.56 ) Wt 69.9 kg (154 lb 3.2 oz) LMP (LMP Unknown) SpO2 98% BMI 27.70 kg/m? PS - 0, Head atraumatic, no pallor, icterus or lymphadenopathy, lungs clear to auscultation, heart sounds regular, abdomen soft without distension or organomegaly, neuro grossly non-focal, skin without rash, extremities without swelling, breast exam without evidence of any lumps or bumps in either breast or axillary LABORATORY, IMAGING AND PATHOLOGY Pathology reviewed CBC and CMP reviewed ASSESSMENT AND RECOMMENDATIONS 81 female with excised left axillary lymph node with biopsy showing either a triple negative invasive breast cancer or carcinoma of unknown origin. ? Patient had initially presented with a left axillary mass that was resected and read as triple negative breast cancer. Interval review of the lymph node pathology was not diagnostic of breast cancer and instead read as an unknown primary. Potential primaries could have been mammary, skin, urogenital, pulmonary or pancreaticobiliary. PET scan did not show uptake in the above areas except for a few FDG avid subcentimeter nodes in the left axilla. Her case was presented at tumor board in April 2021 and the recommendation was to proceed with a breast MRI, testing for BRCA1/2, tumor based next generation sequencing and referrals to radiation oncology and surgery. However, patient remained anxious about all the above recommendations and wanted to proceed with minimal interventions. She agreed to meet Dr. Henson and decided against surgery. She also decided against chemotherapy and radiation treatments. Patient does not want a breast MRI with contrast given her history of CKD. She understands that she is deviating from the tumor board recommendations. As a result, I have recommended her to continue with annual mammograms and physical examination. No evidence of recurrence on exam today. Follow-up in 6 months with mammogram prior. ? Previous CBC showed lymphocytosis for which I have sent a peripheral flow cytometry. CBC today is normal. I will call the patient with results. 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 Drake Anand MD I spent a total of 25 minutes on the date of the (more content not included)... [facility]04-14-2022 History of Present illness Narrative* Drake Anand MD - 07/28/2021 3:18 PM EDT BREAST ONCOLOGY FOLLOW UP Elements in this clinic note that are critical to medical decision making have been carefully reviewed and included from my prior clinic note dated: May 12, 2021 July 28, 2021 PCP and other physicians involved in patient's care: Jorge Luis Simon (PCP), Tim Niño, Campbell Henson DIAGNOSIS: Axillary cancer of unknown primary ONCOLOGIC HISTORY AND TREATMENT DETAILS: Presented in January 2021 with left-sided axillary swelling over 2 to 3 weeks. This was confirmed by an ultrasound to be a 6.9 cm mass. FNA was nondiagnostic. March 18, 2021 left axillary node excision (Dr. Niño); path consistent with metastatic breast carcinoma, 5 cm, ER 0, [place] 0, HER-2 0 by IHC. The tissue was not evaluated for flow cytometry to rule out a lymphoproliferative process. 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 Differential included mammary, skin, urothelial, pancreaticobiliary and pulmonary primaries. ER 0, W[place] 0, HER-2 negative by CAMERON. 2021 PET scan with uptake in the left axillary nodes, probably reactive May 03, 2021 mammogram was notable for an asymmetric density in the left axilla and the recommendation was to proceed with bilateral breast MRI May 03, 2021 tumor board recommendation was to proceed with genetic testing and/or NGS further characterize of unknown primary, referrals to radiation oncology and surgery, and breast MRI May [address] Henson we discussed the role of surgery versus radiation and per notes patient wanted to proceed with radiation; did not follow-up with radiation oncology INTERVAL HISTORY: Johanny comes back for follow-up. She is here with her daughter, Karin. No new symptoms. She is here to talk about further steps with regards to her history of left axillary cancer. ROS is negative except that mentioned in HPI PAST MEDICAL SURGICAL FAMILY AND SOCIAL HISTORY: She has a history of Type 2 diabetes mellitus, on oral medications Coronary artery disease, conservative management EF 45% per patient Chronic kidney disease stage 3 Transient ischemic attack Previous surgeries include appendectomy and D&C. Family history not contributory for malignancy. She lives with her son and daughter. At baseline, she denies any chronic pain or constipation issues. She is independent with her ADLs and IADLs. MEDICATIONS AND ALLERGIES: Reviewed PHYSICAL EXAM BP 150/74 Pulse (!) 56 Temp 36.6 C (97.9 F) (Temporal) Resp 18 Ht 158.9 cm (5' 2.56 ) Wt 69.9 kg (154 lb 3.2 oz) LMP (LMP Unknown) SpO2 98% BMI 27.70 kg/m PS - 0, Head atraumatic, no pallor, icterus or lymphadenopathy, lungs clear to auscultation, heart sounds regular, abdomen soft without distension or organomegaly, neuro grossly non-focal, skin without rash, extremities without s welling, breast exam without evidence of any lumps or bumps in either breast or axillary LABORATORY, IMAGING AND PATHOLOGY Pathology reviewed CBC and CMP reviewed ASSESSMENT AND RECOMMENDATIONS 81 female with excised left axillary lymph node with biopsy showing either a triple negative invasive breast cancer or carcinoma of unknown origin. Patient had initially presented with a left axillary mass that was resected and read as triple negative breast cancer. Interval review of the lymph node pathology was not diagnostic of breast cancer and instead read as an unknown primary. Potential primaries could have been mammary, skin, urogenital, pulmonary or pancreaticobiliary. PET scan did not show uptake in the above areas except for a fewFDG avid subcentimeter nodes in the left axilla. Her case was presented at tumor board in April 2021 and the recommendation was to proceed with a breast MRI, testing for BRCA1/2, tumor based next generation sequencing and referrals to radiation oncology and surgery. However, patient remained anxio us about all the above recommendations and wanted to proceed with minimal interventions. She agreedto meet Dr. Henson and decided against surgery. She also decided against chemotherapy and radiationtreatments. Patient does not want a breast MRI with contrast given her history of CKD. She understands that she is deviating from the tumor board recommendations. As a result, I have recommended her to continue with annual mammograms and physical examination. Noevidence of recurrence on exam today. Follow-up in 6 months with mammogram prior. Previous CBC showed lymphocytosis for which I have sent a peripheral flow cytometry. CBC today is normal. I will call the patient with results. 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 Drake Anand MD I spent a total of 25 minutes on the date of the service which included preparing to see the patient, [id number] patient care, completing clinical documentation, obtaining and/or reviewing separately obtained history, counseling and educating the patient/family/caregiver, ordering medications, herlinda ts, or procedures, independently interpreting results (not separately reported) and communicating results to the patient/family/caregiver. documented in this encounterC[facility]04-08-2022 Miscellaneous Notes* Telephone Encounter - Thao Vallecillo Sec - 07/22/2021 2:48 PM EDT Scheduled patient for next week for appointment spoke with gabriel * Telephone Encounter - Drake Anand MD - 07/22/2021 2:38 PM EDT I spoke with the patient regarding previous recommendations. I have asked her to come and see me inclinic next week at her convenience. PSS-could you please arrange for that? Thanks, SJK * Telephone Encounter - Ru Blackman RN - 07/22/2021 1:59 PM EDT Received call from pt stating she spoke with Dr Henson about surgery and he thinks imaging may justbe showing inflammation from pt's previous surgery with Dr Niño. Pt is unsure now of what to do and if she still has cancerous cells that need radiation. SJK: Pt is requesting a call from you to discuss further. She can be reached at [phone]. Ru Blackman RN documented in this encounterC[facility]12-28-2021 Miscellaneous Notes* Telephone Encounter - Amarilys Murry PA-C - 04/12/2021 4:42 PM EST Request received from [facility] for additional diagnosis codes for MRI breast because diagnosis providedis not a covered diagnosis. Will send with additional diagnosis codes. Will try C50.912 and C77.3. (carcinoma of breast metastatic to left axillary node) Amarilys Murry PA-C documented in this encounterC[facility]12-03-2021 NoteOPERATIVE NOTE OPERATION DATE: 03-18-21 ANESTHETIC:LMA. HUMAN RESOURCES BENEFITS MANAGER:COLTON Enciso PREOPERATIVE DIAGNOSIS:Left axillary mass. POSTOPERATIVE DIAGNOSIS: Same. PROCEDURE NAME:Excision of left axillary mass. SPECIMEN:Excised left axillary mass consistent with an enlarged lymph node. DISPOSITION: The patient was extubated in the OR and taken to the PACU in fair condition. PROCEDURE: The patient was brought into the OR, placed supine on the OR table. After laryngeal mask anesthesia the patient's left axilla and left chest were prepped and draped in a sterile fashion. An approximately 3 cm incision was made just below the hairline of the left axilla. The incision was carried down through the skin using sharp dissection and through the soft tissue using electrocautery Bovie. A small lymph node that appeared to be fatty infiltrated was removed using electrocautery Bovie. Deeper down and more towards the upper quadrant of the breast was a large lymph node that was removed using a combination of blunt dissection and the base was transected using electrocautery Bovie. It was at least 3 cm in diameter and passed off the table as a specimen. Hemostasis was provided using electrocautery Bovie and 3-0 Vicryl ties. The dermis was reapproximated using 3-0 Vicryl in an interrupted fashion. The skin was reapproximated using 4-0 Monocryl in an interrupted fashion. The skin was reapproximated using 4-0 Monocryl in a subcuticular fashion. The incision was cleaned with normal saline and dried. TinCoBen was placed on both sides of the incision and half inch Steri-Strips were placed along with dry sterile dressing. The patient tolerated the procedure without any difficulty. She was extubated in the OR and taken to the PACU in fair condition. [facility] Signed and Approved by: DR TIM NIÑO . 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, left (HCC) Procedures DANIELLE DIAGNOSTIC LT DIAGNOSTIC MAMMOGRAPHY COMPUTER-AIDED DETCJ Simin Montano MD [address] [place] [address] [facility] [address] [place] [address] Referral ID Status Reason Start Date Expiration Date Visits Requested Visits Authorized [id number] Pending Review Auto-Generat ed Referral 02/14/2022 03/02/2023 1 1 [facility] for referral (narrative)* Diagnostic Procedure Only (Routine) - Pending Review Specialty Diagnoses / Procedures [facility] Diagnoses 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, left (HCC) Procedures US BREAST LTD RT US BREAST UNI REAL TIME WITH IMAGE LIMITED Simin Lama MD [address] [place] [address] [facility] [address] [place] [address] Referral ID Status Reason Start Date Expiration Date Visits Requested Visits Authorized [id number] Pending Review Auto-Generat ed Referral 05/15/2022 06/14/2023 1 1 * Diagnostic Procedure Only (Routine) - Pending Review Specialty Diagnoses / Procedures Referred By Contac t Referred To Contact [facility] Diagnoses 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, left (HCC) Procedures US BREAST LTD LT US BREAST UNI REAL TIME WITH IMAGE LIMITED Simin Lama MD [address] [place] [address] [facility] [address] [place] [address] Referral ID Status Reason Start Date Expiration Date Visits Requested Visits Authorized [id number] Pending Review Auto-Generat ed Referral 05/15/2022 06/14/2023 1 1 * Diagnostic Procedure Only (Routine) - Pending Review Specialty Diagnoses / Procedures Referred By Jerry t Referred To Contact [facility] Diagnoses 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, left (HCC) Procedures DANIELLE DIAGNOSTIC BILAT DIAGNOSTIC MAMMOGRAPHY COMPUTER-AIDED DETCJ Simin Lin MD [address] [place] [address] [facility] [address] [place] [address] Referral ID Status Reason Start Date Expiration Date Visits Requested Visits Authorized [id number] Pending Review Auto-Generat ed Referral 05/15/2022 06/14/2023 1 1 [facility] Summary Purpose Family History No Family History Records FoundNo Family History Records FoundNo Family History Records FoundNo Family History Records FoundNo Family History Records FoundNo Family History Records FoundNo Family History Records Found Advance Directives No Advanced Directives Records Found Advance Directive Response Recorded Date/ Time Advance Directives No May 04, 2022 12:47pm Chief Complaint and Reason for Visit Chief Complaint C77.3 Additional Source Comments INFORMATION SOURCE (unrecogn ized section and content) DATE CREATED AUTHOR 06/27/2018 [facility] DATE CREATED AUTHOR AUTHOR'S ORGANIZ ATION 07/08/2019 [facility] DATE CREATED AUTHOR AUTHOR'S ORGANIZ ATION 05/07/2021 [facility] DATE CREATED AUTHOR AUTHOR'S ORGANIZ ATION 12/11/2021 [facility] DATE CREATED AUTHOR AUTHOR'S ORGANIZ ATION 05/16/2022 [facility] DATE CREATED AUTHOR AUTHOR'S ORGANIZ ATION 05/24/2022 [facility] DATE CREATED AUTHOR AUTHOR'S ORGANIZ ATION 03/19/2023 [facility] EPIC Source Comments (unrecognize d section and content) In the event this informatio n is protected by the Federal Confidentiality of Alcohol and Drug Abuse Patient Records regulations: The Federal rules restrict any use of the information to criminally investigate or prosecute any alcohol or drug abuse patient.[facility] the event this information is protected by the Federal Confidentiality of Alcohol and Drug Abuse Patient Records regulations: The Federal rules restrict any use of the information to criminally investigate or prosecute any alcohol or drug abuse patient.[facility] GeneralIn the event this information is protected by the Federal Confidentiality of Alcohol and Drug Abuse Patient Records regulations: The Federal rules restrict any use of the information to criminally investigate or prosecute any alcohol or drug abuse patient.[facility] GeneralIn the event this information is protected by the Federal Confidentiality of Alcohol and Drug Abuse Patient Records regulations: The Federal rules restrict any use of the information to criminally investigate or prosecute any alcohol or drug abuse patient.[facility] General[facility] the event this information is protected by the Federal Confidentiality of Alcohol and Drug Abuse Patient Records regulations: The Federal rules restrict any use of the information to criminally investigate or prosecute any alcohol or drug abuse patient.[facility] the event this information is protected by the Federal Confidentiality of Alcohol and Drug Abuse Patient Records regulations: The Federal rules restrict any use of the information to criminally investigate or prosecute any alcohol or drug abuse patient.[facility] GeneralIn the event this information is protected by the Federal Confidentiality of Alcohol and Drug Abuse Patient Records regulations: The Federal rules restrict any use of the information to criminally investigate or prosecute any alcohol or drug abuse patient.[facility] the event this information is protected by the Federal Confidentiality of Alcohol and Drug Abuse Patient Records regulations: The Federal rules restrict any use of the information to criminally investigate or prosecute any alcohol or drug abuse patient.[facility] Reason for Visit (unrecogniz ed section and content) Reason Comments Patient Question Reason Comments Breast Cancer Reason Comments Special Procedures Tech - Other Reason Comments Breast Cancer Follow up Reason Comments Appointment Reason Comments Orders Reason Comments Orders Care Teams (unrecognized sec tion and content) [employer] Relationship Specialty Start Date End Date Jorge Luis Simon [address] [place] [address] PCP - General Family Practice 03/28/21 Pompom Maker Relationship Specialty Start Date End Date Jorge Luis Simon [address] [place] [address] PCP - General Family Practice 03/28/21 Pompom Maker Relationship Specialty Start Date End Date Jorge Luis Simon, DO [address] [place] [address] PCP - General Family Practice 03/28/21 Pompom Maker Relationship Specialty Start Date End Date Jorge Luis Simon, DO [address] [place] [address] PCP - General Family Medicine 03/28/21 Pompom Maker Relationship Specialty Start Date End Date Jorge Luis Simon, DO [address] [place] [address] PCP - General Family Medicine 03/28/21 Pompom Maker Relationship Specialty Start Date End Date Jorge Luis Simon, DO [address] [place] [address] PCP - General Family Medicine 03/28/21 Pompom Maker Relationship Specialty Start Date End Date Jorge Luis Simon, DO [address] [place] [address] PCP - General Family Medicine 03/28/21 Pompom Maker Relationship Specialty Start Date End Date Charley Jorge Luis Hodge DO [address] [place] [address] PCP - General Family Medicine 03/28/21 Team Status: Inactive Member Role Status Dates Jorge Luis Simon DO Primary Care Provider Active Simin Lama MD Attending Provider Active Team Status: Active Member Role Status Dates Jorge Luis Simon DO Primary Care Provider Active Goals (unrecognized section and content) Goals may be documented in a n alternate section FOR RECORDS PERTAINING TO PATIENTS WHO ARE OR HAVE BEEN ENROLLED IN A CHEMICAL DEPENDENCY/SUBSTANCEABUSE PROGRAM, SOME INFORMATION MAY BE OMITTED. This clinical summary was aggregated from multiple sources. Caution should be exercised in using it in the provision of clinical care. This summary normalizes information from multiple sources, and as a consequence, information in this document may materially change the coding, format and clinical context of patient data. In addition, data may be omitted in some cases. CLINICAL DECISIONS SHOULD BE BASED ON THE PRIMARY CLINICAL RECORDS. [employer] [facility]. provides no warranty or guarantee of the accuracy or completeness of information in this document.
--- OUTSIDE RECORDS SUMMARY | 2023-04-04 02:16 | XMS_ITS | CCD ---
Author Name Unknown Address [address] [facility] [address] [place] [address] Organization [facility] Care Team Providers Care Barrel Coater Name Role Phone RIAN ROSS Admitting Unavailable [...] DO Jorge Luis Simon Primary Care Provider MD Simin Lama Attending Provider DRAKE ANAND [...] Translations: [LISINOPRIL] Drug Allergy 04-05-20 21 [facility] Repository (3 sources) Penicillins; Translations: [PENICILLINS] Drug allergy (disorder) 09-21-19 16 Rash [facility] Repository (8 sources) Lisinopril Drug Allergy 04-05-20 21 Unknown [facility] (2 sources) Penicillins Drug Intolerance 04-05-20 21 Other: See Comments [facility] (6 sources) Penicillins Drug Intolerance 04-05-20 21 Other: See Comments [facility] (5 sources) Amino Acids Drug Allergy 02-01-20 22 Other: See Comments [facility] (1 source) Penicillin V Drug Allergy dizziness, LOC [employer] Other (1 source) Penicillins Drug allergy (disorder) 06-15-19 19 [facility] Repository Medications Current Medications Medication Drug Class(es) [...] disease (3 sources) Atherosclerotic heart disease of [place] coronary artery without angina pectoris; Translations: [Old [...] Other retirement (current) drug therapy; Translations: [OTH 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 Chrissie is calling to request a new order. 1) Diagnostic Bilateral Mammogram 2) US order (that way they have it if needed) Jyothi: If in agreement, can you please place order PERLITA and I will fax back to her? Thanks! Chrissie: Ph. [phone] Fax. [phone] Honey Lama MD 05/15/2022 2:11 PM Signed [...] axillary lymph node, left (HCC) [C50.912, C77.3] Order(s):[facility] DIAGNOSTIC BILAT [[id number]] Order #: [id number] FUTURE BREAST LTD LT [[id number]] Order #: [id number] FUTURE TYMR BREAST LTD RT [[id number]] Order #: [id number] FUTURE Prescriptions as of 05/15/2022 - aspirin [...] Encounter Status:Closed by HONEY ALMEIDA on [facility]15[facility]22 [facility] JOH[facility] FOR[facility]ES ([id number]) 1940 F Date Time Provider Department 05/15/22 RU THOMAS During your visit today, we recorded the following information about you: Ru Thomas RN 05/15/2022 2:19 PM Signed Received call from pt stating she is at [facility] and needs mammogram orders sent. Orders faxed [...] Status:Closed by RU THOMAS on 05/15/22 Normal [facility] MM diagnostic mammo BI w/CAD on 05-15-2022 MM diagnostic mammo BI w/CAD [facility] [place] [address] Mammography Report Signed Patient: Johanny Forbes MR#: [id number] : 1940 Acct:[id number] Age/Sex: 82 / F ADM Date: 05/15/22 Loc: [place] Room: Type: [facility] Attending Dr: Simin Lama MD Copies to: DO Smiin Vera MD Ordering Provider: Simin Lama MD [...] Aguayo Jr., D.O.05/15/2022 2:50 PM Dictation Location: [facility] Transcribed By: GABRIEL 05/15/22 1450 Dictated By: Jaycob Aguayo Jr, DO 05/15/22 1445 Signed By: 05/15/22 1450 [facility] COVID/FLU RT-PCRon 2 SARS-CoV-2 (COVID-19) RNA NA A+probe Ql (Unsp spec) Negative [facility] [employer] Other COVID/FLU RT-PCR Negative [facility] [employer] Other [employer] 02-13-2022 [facility] Telephone (DAGMAR) JOHANNY FORBES ([id number]) 1940 F Date Time Provider Department 02/13/22 [...] Encounter Status:Closed by SHIVA REYES on 02/13/22 [facility] CNOVSPon 01-31-2022 CNOVSP Visit (SP) Office (H FAROOQ) JOHANNY FORBES ([id number]) 1940 F Date Time Provider Department 01/31/22 3:15 PM SIMIN LAMA During your visit today, we recorded the following information about you: Temperature Pulse Respiration Blood pressure 97.3 degrees 62/minute 16/minute 142/65 Weight Height 70 kg 1.589 m Simin Lama MD 01/31/2022 3:38 PM Signed PATIENT NAME: Johanny Forbes CLINIC NO.: [id number] ATTENDING PHYSICIAN: Simin Lama MD DATE OF [...] metastatic breast carcinoma, 5 cm, ER 0, FL 0, HER-2 0 by IHC. The tissue was not evaluated for flow cytometry to rule out a lymphoproliferative process. 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 Differential included mammary, skin, urothelial, pancreaticobiliary and pulmonary primaries. ER 0, FL 0, HER-2 negative by CAMERON. 2021 PET [...] Rectal: Deferred (more content not included)... Normal [facility] CNPNon 01-31-2022 CNPN Telephone (NCCAP) JOHANNY FORBES ([id number]) 1940 F Date Time Provider Department 01/31/22 SIMIN LAMA During your visit today, we recorded the following information about you: Honey Almeida 01/31/2022 4:[address] Lama, patient had a previous abnormal L Mammogram and never followed up. He would like L Mammogram completed now. Faxed order to [facility] scheduling per patient's hospital request. Honey Almeida Allergies As of Date: 01/31/2022 Noted Allergy [...] Status:Closed by HONEY ALMEIDA on 02/01/22 Normal [facility] SENGKenia 01-30-2022 CNPN Telephone (HEMTSA) JOHANNY FORBES ([id number]) 1940 F Date Time Provider Department 01/30/22 [...] Fully Assessed Reason for Visit: Patient Question [6430] Prescriptions as of 01/30/2022 - aspirin 82 [...] Status:Closed by AMANDA HENDERSON on 01/30/22 Normal [facility] ALBUMIN, RANDOM URINE W/CREA Corrine 12-09-2021 ALBUMIN, URINE 1.7 mg/dL Normal See Note: [facility] Comment on above: Result Comment: Refe rence Range: Reference Range Not established Performed By: #### 7 18, 622, 496, 63939, 99549, 43905, 6399, 7600, 905, 6517 #### [facility] [address], [address] [place] [address] Brass [employer]bin Winder: César Dunn MD ALBUMIN/CREATININE RATIO, RANDOM URINE [...] Performed By: #### 7 18, 622, 496, 90217, 50149, 54718, 6399, 7600, 905, 6517 #### [facility] [address], [address] [place] [address] [employer]ass [employer] Winder: César Dunn MD Creatinine (U) [Mass/Vol] 74 mg/dL Normal 20-275 [facility] Comment on above: Performed By: #### 7 18, 622, 496, 46017, 85286, 56077, 6399, 7600, 905, 6517 #### [facility] [address], [address] [place] [address] [employer] Winder: César Dunn MD CBC (INCLUDES DIFF/PLT)on Basophils (Bld) [#/Vol] 0.044 10*3/uL Normal 0-200 [facility] Comment on above: Performed By: #### 7 18, 622, 496, 83768, 19596, 10610, 6399, 7600, 905, 6517 #### [facility] of [address], [address] [place] [address] Brass [employer] Winder: César Dunn MD Basophils/100 WBC (Bld) 0.5 % Normal [facility] Comment on above: Performed By: #### 7 18, 622, 496, 66969, 99372, 06889, 6399, 7600, 905, 6517 #### [facility] of [place] [address] [employer] Winder: César Dunn MD Eosinophils (Bld) [#/Vol] 0.29 10*3/uL Normal 15-500 [facility] Comment on above: Performed By: #### 7 18, 622, 496, 09537, 36600, 30387, 6399, 7600, 905, 6517 #### [facility] of [place] [address] [employer] Winder: César Dunn MD Eosinophils/100 WBC (Bld) 3.3 % Normal [facility] Comment on above: Performed By: #### 7 18, 622, 496, 54154, 81928, 86007, 6399, 7600, 905, 6517 #### [facility] [place] [address] [employer] Winder: César Dunn MD Erythrocyte distribution wid th (RBC) [Ratio] 12.6 % Normal 11.0-15.0 [facility] Comment on above: Performed By: #### 7 18, 622, 496, 06233, 33033, 11733, 6399, 7600, 905, 6517 #### [facility] [place] [address] [employer] Winder: César Dunn MD Hematocrit (Bld) [Volume fraction] 36.3 % Normal 3 5.0-45.0 [facility] Comment on above: Performed By: #### 7 18, 622, 496, 90306, 96389, 95100, 6399, 7600, 905, 6517 #### [facility] of [place] [address] [employer] Winder: César Dunn MD Hemoglobin (Bld) [Mass/Vol] 12.4 g/dL Normal 11.7-15. 5 [facility] Comment on above: Performed By: #### 7 18, 622, 496, 59921, 55581, 48046, 6399, 7600, 905, 6517 #### [facility] [place] [address] [employer] Winder: César Dunn MD Lymphocytes (Bld) [#/Vol] 3.08 10*3/uL Normal 850-3900 [facility] Comment on above: Performed By: #### 7 18, 622, 496, 82933, 45699, 14481, 6399, 7600, 905, 6517 #### [facility] [place] [address] [employer] Winder: César Dunn MD Lymphocytes/100 WBC (Bld) 35.0 % Normal [facility] Comment on above: Performed By: #### 7 18, 622, 496, 19157, 09853, 40528, 6399, 7600, 905, 6517 #### [facility] [place] [address] [employer] Winder: César Dunn MD MCH (RBC) [Entitic mass] 30.7 pg Normal 27.0-33.0 [facility] Comment on above: Performed By: #### 7 18, 622, 496, 57136, 22739, 87240, 6399, 7600, 905, 6517 #### [facility] [place] [address] [employer] Winder: César Dunn MD MCHC (RBC) [Mass/Vol] 34.2 g/dL Normal 32.0-36.[address] [facility] Comment on above: Performed By: #### 7 18, 622, 496, 21886, 17441, 45089, 6399, 7600, 905, 6517 #### [facility] [place] [address] [employer] Winder: César Dunn MD MCV (RBC) [Entitic vol] 89.9 fL Normal 80.0-100.0 [facility] Comment on above: Performed By: #### 7 18, 622, 496, 54049, 32247, 50124, 6399, 7600, 905, 6517 #### [facility] [place] [address] [employer] Winder: César Dunn MD Monocytes (Bld) [#/Vol] 0.37 10*3/uL Normal 200-950 [facility] Comment on above: Performed By: #### 7 18, 622, 496, 32541, 56176, 79290, 6399, 7600, 905, 6517 #### [facility] [place] [address] [employer] Winder: César Dunn MD Monocytes/100 WBC (Bld) 4.2 % Normal [facility] Comment on above: Performed By: #### 7 18, 622, 496, 45711, 44738, 62510, 6399, 7600, 905, 6517 #### [facility] [place] [address] [employer] Winder: César Dunn MD Neutrophils (Bld) [#/Vol] 5.016 10*3/uL Normal 1500-78 00 [facility] Comment on above: Performed By: #### 7 18, 622, 496, 43052, 49631, 29585, 6399, 7600, 905, 6517 #### [facility] [place] [address] [employer] Winder: César Dunn MD Neutrophils/100 WBC (Bld) 57 % Normal [facility] Comment on above: Performed By: #### 7 18, 622, 496, 34086, 23873, 50304, 6399, 7600, 905, 6517 #### [facility] of [address], [address] [place] [address] Brass [employer] Winder: César Dunn MD Platelet mean volume (Bld) [Entitic vol] 10.6 fL Normal 7.5-12.5 [facility] Comment on above: Performed By: #### 7 18, 622, 496, 84288, 73118, 88419, 6399, 7600, 905, 6517 #### [facility] of [address], [address] [place] [address] Brass [employer] Winder: César Dunn MD Platelets (Bld) [#/Vol] 278 10*3/uL Normal 140-400 [facility] Comment on above: Performed By: #### 7 18, 622, 496, 30240, 96160, 55308, 6399, 7600, 905, 6517 #### [facility] of [address], [address] [place] [address] Brass [employer] Winder: César Dunn MD RBC (Bld) [#/Vol] 4.04 10*6/uL Normal 3.80-5.10 [facility] Comment on above: Performed By: #### 7 18, 622, 496, 75272, 94708, 23900, 6399, 7600, 905, 6517 #### [facility] of [address], [address] [place] [address] Brass [employer] Winder: César Dunn MD WBC (Bld) [#/Vol] 8.8 10*3/uL Normal 3.8-10.8 [facility] Comment on above: Performed By: #### 7 18, 622, 496, 85733, 05849, 77858, 6399, 7600, 905, 6517 #### [facility] of [address], [address] [place] [address] Br[employer] Winder: César Dunn MD COMPREHENSIVE METABOLIC PANE Luis 08-26-2022 Albumin [Mass/Vol] 4.3 g/dL Normal 3.6-5.1 [facility] Comment on above: Performed By: #### 7 18, 622, 496, 80741, 44245, 75730, 6399, 7600, 905, 6517 #### [facility] [place] [address] [employer] Winder: César Dunn MD Albumin/Globulin [Mass ratio] 1.4 {ratio} Normal 1.0-2 .5 [facility] Comment on above: Performed By: #### 7 18, 622, 496, 07945, 64812, 46453, 6399, 7600, 905, 6517 #### [facility] [place] [address] [employer] Winder: César Dunn MD ALP [Catalytic activity/Vol] 66 U/L Normal 37-153 [facility] Comment on above: Performed By: #### 7 18, 622, 496, 16703, 01019, 65955, 6399, 7600, 905, 6517 #### [facility] [place] [address] [employer] Winder: César Dunn MD ALT [Catalytic activity/Vol] 8 U/L Normal 6-29 [facility] Comment on above: Performed By: #### 7 18, 622, 496, 64024, 62557, 20092, 6399, 7600, 905, 6517 #### [facility] [place] [address] [employer] Winder: César Dunn MD AST [Catalytic activity/Vol] 16 U/L Normal 10-35 [facility] Comment on above: Performed By: #### 7 18, 622, 496, 12884, 29763, 84925, 6399, 7600, 905, 6517 #### [facility] [place] [address] [employer] Winder: César Dunn MD Bilirubin [Mass/Vol] 0.6 mg/dL Normal 0.2-1.2 [facility] Comment on above: Performed By: #### 7 18, 622, 496, 80600, 62705, 49716, 6399, 7600, 905, 6517 #### [facility] of [address], [address] [place] [address] Brass [employer] Winder: César Dunn MD Calcium [Mass/Vol] 9.6 mg/dL Normal 8.6-10.4 [facility] Comment on above: Performed By: #### 7 18, 622, 496, 37985, 32386, 07228, 6399, 7600, 905, 6517 #### [facility] [place] [address] [employer] Winder: César Dunn MD Chloride [Moles/Vol] 108 mmol/L Normal 98-110 [facility] Comment on above: Performed By: #### 7 18, 622, 496, 96597, 38994, 53837, 6399, 7600, 905, 6517 #### [facility] [place] [address] [employer] Winder: César Dunn MD CO2 [Moles/Vol] 25 mmol/L Normal 20-32 [facility] Comment on above: Performed By: #### 7 18, 622, 496, 05341, 56127, 63409, 6399, 7600, 905, 6517 #### [facility] [place] [address] [employer] Winder: César Dunn MD Creatinine [Mass/Vol] 1.37 mg/dL High 0.60-0.[address] [facility] Comment on above: Performed By: #### 7 18, 622, 496, 26526, 06383, 49658, 6399, 7600, 905, 6517 #### [facility] [place] [address] [employer] Winder: César Dunn MD GFR/1.73 sq M.predicted elizabeth g non-blacks MDRD (S/P/Bld) [Vol rate/Area] 39 mL/min/{1.73_m2} Low > OR = 60 [facility] Comment on above: Result Comment: The eGFR is based on the CKD-EPI 2020 equation. To calculate the new eGFR from a previous Creatinine or Cystatin C result, go to https://www.kidney.org/professionals/ kdoqi/gfr%5Fcalculator Performed By: #### 7 18, 622, 496, 68123, 91725, 86646, 6399, 7600, 905, 6517 #### [facility] [address], [address] [place] [address] Brass [employer] Winder: César Dunn MD Globulin (S) [Mass/Vol] 3.1 g/dL Normal 1.9-3.7 [facility] Comment on above: Performed By: #### 7 18, 622, 496, 40464, 55143, 88560, 6399, 7600, 905, 6517 #### [facility] [address], [address] [place] [address] Br[employer] Winder: César Dunn MD Glucose [Mass/Vol] 121 mg/dL High 65-99 [facility] Comment on above: Result Comment: Fasting reference interval For someone without known diabetes, a glucose value between 100 and 125 mg/dL is consistent with prediabetes and should be confirmed with a follow-up test. Performed By: #### 7 18, 622, 496, 25417, 64663, 00028, 6399, 7600, 905, 6517 #### [facility] [address], [address] [place], [place] [id number] Br[employer] Winder: César Dunn MD Potassium [Moles/Vol] 4.6 mmol/L Normal 3.5-5.[address] [facility] Comment on above: Performed By: #### 7 18, 622, 496, 38870, 68242, 03062, 6399, 7600, 905, 6517 #### [facility] [address], [address] [place] [address] Br[employer] Winder: César Dunn MD Protein [Mass/Vol] 7.4 g/dL Normal 6.1-8.1 [facility] Comment on above: Performed By: #### 7 18, 622, 496, 73370, 69644, 94394, 6399, 7600, 905, 6517 #### [facility] [place] [address] [employer] Winder: César Dunn MD Sodium [Moles/Vol] 139 mmol/L Normal 135-146 [facility] Comment on above: Performed By: #### 7 18, 622, 496, 25314, 87923, 25128, 6399, 7600, 905, 6517 #### [facility] [place] [address] [employer] Winder: César Dunn MD Urea nitrogen [Mass/Vol] 22 mg/dL Normal 7-25 [facility] Comment on above: Performed By: #### 7 18, 622, 496, 39054, 97327, 83803, 6399, 7600, 905, 6517 #### [facility] [place] [address] [employer] Winder: César Dunn MD Urea nitrogen/Creatinine [Mass ratio] 16 mg/mg Normal 6-22 [facility] Comment on above: Performed By: #### 7 18, 622, 496, 88967, 03790, 26276, 6399, 7600, 905, 6517 #### [facility] [place] [address] [employer] Winder: César Dunn MD HEMOGLOBIN A1con 12-09-2021 HEMOGLOBIN [...] Performed By: #### 7 18, 622, 496, 84061, 13681, 43639, 6399, 7600, 905, 6517 #### [facility] [address], [address] [place] [address] [employer] Winder: César Dunn MD LIPID PANEL, [place] [address]-2 Cholesterol [Mass/Vol] 260 mg/dL High <200 [facility] Comment on above: Order Comment: FASTI NG:YES FASTING: YES Performed By: #### 7 18, 622, 496, 73941, 30442, 63337, 6399, 7600, 905, 6517 #### [facility] [address], [address] [place], [place] [address] Brass [employer] Winder: César Dunn MD Cholesterol in HDL [Mass/Vol] 38 mg/dL Low > OR = 50 [facility] Comment on above: Order Comment: FASTI NG:YES FASTING: YES Performed By: #### 7 18, 622, 496, 61122, 93090, 75378, 6399, 7600, 905, 6517 #### [facility] [address], [address] [place] [address] Brass [employer] Winder: César Dunn MD Cholesterol in LDL [Mass/Vol] [...] LDL-C. Tim HUMPHRIES et al. GENA. 2013;310(19): 3994-4274 (http://education.Xpliant.PetHub/faq/LSJ669) Performed By: #### 7 18, 622, 496, 48706, 15899, 83434, 6399, 7600, 905, 6517 #### [facility] [address], [address] [place] [address] Brass [employer] Winder: César Dunn MD Cholesterol.total/Cholestero l in HDL [Mass ratio] 6.8 {ratio} High <5.0 [facility] Comment on above: Order Comment: FASTI NG:YES FASTING: YES Performed By: #### 7 18, 622, 496, 57902, 52537, 38224, 6399, 7600, 905, 6517 #### [facility] [address], [address] [place] [address] Brass [employer] Winder: César Dunn MD NON HDL CHOLESTEROL 222 [...] Performed By: #### 7 18, 622, 496, 94952, 41741, 54287, 6399, 7600, 905, 6517 #### [facility] [address], [address] [place] [address] Brass [employer] Winder: César Dunn MD Triglyceride [Mass/Vol] 162 mg/dL High <150 [facility] Comment on above: Order Comment: FASTI NG:YES FASTING: YES Performed By: #### 7 18, 622, 496, 34979, 00952, 40383, 6399, 7600, 905, 6517 #### [facility] [address], [address] [place] [address] Brass [employer] Winder: César Dunn MD MAGNESIUMon 12-09-2021 Magnesium [Mass/Vol] 2.1 mg/dL Normal 1.5-2.5 [facility] Comment on above: Performed By: #### 7 18, 622, 496, 22863, 14421, 70024, 6399, 7600, 905, 6517 #### [facility] [place] [address] Br[employer] Winder: César Dunn MD PHOSPHATE ( PHOSPHORUS)on 12-09-2021 Phosphate [Mass/Vol] 3.6 mg/dL Normal 2.1-4.3 [facility] Comment on above: Performed By: #### 7 18, 622, 496, 05713, 09722, 62077, 6399, 7600, 905, 6517 #### [facility] [place] [address] [employer] Winder: César Dunn MD PTH, INTACT WITHOUT CALCIUMo [...] Performed By: #### 7 18, 622, 496, 98186, 17405, 49564, 6399, 7600, 905, 6517 #### [facility] [place] [address] [employer] Winder: César Dunn MD URIC ACIDon 12-09-2021 Urate [Mass/Vol] 5.1 mg/dL Normal 2.5-7.0 [facility] Comment on above: Result Comment: Ther apeutic target for gout patients: <6.0 mg/dL Performed By: #### 7 18, 622, 496, 43749, 15297, 27825, 6399, 7600, 905, 6517 #### [facility] [address], [address] [place] [address] Br[employer] Winder: César Dunn MD VITAMIN D,25-OH,TOTAL,IAon 0 12-09-2021 [...] D, (D2,D3), LC/MS/MS is recommended: order code 65804 (patients >2yrs). See Note 1 Note 1 For additional information, please refer to http://education.[employer]/faq/LVE374 (This link is being provided for informational/ educational purposes only.) Performed By: #### 7 18, 622, 496, 63660, 18813, 20396, 6399, 7600, 905, 6517 #### [facility] [address] , [address] [place] [address] [employer] Winder: César Dunn MD CNCOon 11-07-2021 CNCO Letter Text Normal [place] [facility] [place] CBC W Auto Differential pane l (Bld)on 07-28-2021 Basophils (Bld) [#/Vol] 0.03 10*3/uL Normal <0.11 [facility] Comment on above: Order Comment: Speci men Type: BLOOD SPECIMENOrdering Facility: [facility] Address: [address] [id number] Performed By: #### 5 7021-8 ####[facility] [id number] [place] [address] Basophils/100 WBC (Bld) 0.4 % Normal [facility] Comment on above: Order Comment: Speci men Type: BLOOD SPECIMENOrdering Facility: [facility] Address: [address] Performed By: #### 5 7021-8 ####[facility] [id number] [place] [address] Differential cell count method Nom (Bld) Auto Normal [facility] Comment on above: Order Comment: Speci men Type: BLOOD SPECIMENOrdering Facility: [facility] Address: [address] [place] [address] Performed By: #### 5 7021-8 ####[facility] [id number] [place] [address] Eosinophils (Bld) [#/Vol] 0.29 10*3/uL Normal <0.46 [facility] Comment on above: Order Comment: Speci men Type: BLOOD SPECIMENOrdering Facility: [facility] Address: [address] [place] [address] Performed By: #### 5 7021-8 ####[facility] [id number] [place] [address] Eosinophils/100 WBC (Bld) 3.7 % Normal [facility] Comment on above: Order Comment: Speci men Type: BLOOD SPECIMENOrdering Facility: [facility] Address: [address] [place] [address] Performed By: #### 5 7021-8 ####[facility] [id number] [place] [address] Erythrocyte distribution wid th (RBC) [Ratio] 13.2 % Normal 11.5-15.0 [facility] Comment on above: Order Comment: Speci men Type: BLOOD SPECIMENOrdering Facility: [facility] Address: [address] [place] [address] Performed By: #### 5 7021-8 ####[facility] [id number] [place] [address] Hematocrit (Bld) [Volume fraction] 37.6 % Normal 3 6.0-46.0 [facility] Comment on above: Order Comment: Speci men Type: BLOOD SPECIMENOrdering Facility: [facility] Address: [address] [place] [address] Performed By: #### 5 7021-8 ####[facility] [id number] [place] [address] Hemoglobin (Bld) [Mass/Vol] 12.1 g/dL Normal 11.5-15. 5 [facility] Comment on above: Order Comment: Speci men Type: BLOOD SPECIMENOrdering Facility: [facility] Address: [address] [place] [address] Performed By: #### 5 7021-8 ####[facility] [id number] [place] [address] IMMATURE GRAN % 0.3 % Normal [facility] Comment on above: Order Comment: Speci men Type: BLOOD SPECIMENOrdering Facility: [facility] Address: [address] [place] [address] Performed By: #### 5 7021-8 ####[facility]CL[facility] [id number] [place] [address] IMMATURE GRAN ABS <0.03 Normal <0.10 [facility] Comment on above: Order Comment: Speci men Type: BLOOD SPECIMENOrdering Facility: [facility] Address: [address] [place] [address] Performed By: #### 5 7021-8 ####[facility] LABCLIA [id number] [place] [address] Lymphocytes (Bld) [#/Vol] 3.28 10*3/uL Normal 1.00-4.0 0 [facility] Comment on above: Order Comment: Speci men Type: BLOOD SPECIMENOrdering Facility: [facility] Address: [address] [place] [address] Performed By: #### 5 7021-8 ####[facility] LABCLIA [id number] [place] [address] Lymphocytes/100 WBC (Bld) 41.8 % Normal [facility] Comment on above: Order Comment: Speci men Type: BLOOD SPECIMENOrdering Facility: [facility] Address: [address] [place] [address] Performed By: #### 5 7021-8 ####[facility] LABCLIA [id number] [place] [address] MCH (RBC) [Entitic mass] 30.0 pg Normal 26.0-34.0 [facility] Comment on above: Order Comment: Speci men Type: BLOOD SPECIMENOrdering Facility: [facility] Address: [address] [place] [address] Performed By: #### 5 7021-8 ####[facility] LABCLIA [id number] [place] [address] MCHC (RBC) [Mass/Vol] 32.2 g/dL Normal 30.5-36.0 [facility] Comment on above: Order Comment: Speci men Type: BLOOD SPECIMENOrdering Facility: [facility] Address: [address] [place] [address] Performed By: #### 5 7021-8 ####[facility] LABCLIA [id number] [place] [address] MCV (RBC) [Entitic vol] 93.3 fL Normal 80.0-100.0 [facility] Comment on above: Order Comment: Speci men Type: BLOOD SPECIMENOrdering Facility: [facility] Address: [address] [place] [address] Performed By: #### 5 7021-8 ####[facility] LABCLIA [id number] [place] [address] Monocytes (Bld) [#/Vol] 0.46 10*3/uL Normal <0.87 [facility] Comment on above: Order Comment: Speci men Type: BLOOD SPECIMENOrdering Facility: [facility] Address: [address] [place] [address] Performed By: #### 5 7021-8 ####[facility] LABCLIA [id number] [place] [address] Monocytes/100 WBC (Bld) 5.9 % Normal [facility] Comment on above: Order Comment: Speci men Type: BLOOD SPECIMENOrdering Facility: [facility] Address: [address] [place] [address] Performed By: #### 5 7021-8 ####[facility] LABCLIA [id number] [place] [address] Neutrophils (Bld) [#/Vol] 3.77 10*3/uL Normal 1.45-7.5 0 [facility] Comment on above: Order Comment: Speci men Type: BLOOD SPECIMENOrdering Facility: [facility] Address: [address] [place] [address] Performed By: #### 5 7021-8 ####[facility] LABCLIA [id number] [place] [address] Neutrophils/100 WBC (Bld) 47.9 % Normal [facility] Comment on above: Order Comment: Speci men Type: BLOOD SPECIMENOrdering Facility: [facility] Address: [address] [place] [address] Performed By: #### 5 7021-8 ####[facility] LABCLIA [id number] [place] [address] Nucleated RBC (Bld) [#/Vol] 10*3/uL Normal <0.01 [facility] Comment on above: Order Comment: Speci men Type: BLOOD SPECIMENOrdering Facility: [facility] Address: [address] [place] [address] Performed By: #### 5 7021-8 ####[facility] LABCLIA [id number] [place] [address] Nucleated RBC/100 WBC (Bld) [Ratio] 0.0 /100 WBC Normal [facility] Comment on above: Order Comment: Speci men Type: BLOOD SPECIMENOrdering Facility: [facility] Address: [address] [place] [address] Performed By: #### 5 7021-8 ####[facility] LABCLIA [id number] [place] [address] Platelet mean volume (Bld) [Entitic vol] 10.6 fL Normal 9.0-12.7 [facility] Comment on above: Order Comment: Speci men Type: BLOOD SPECIMENOrdering Facility: [facility] Address: [address] [place] [address] Performed By: #### 5 7021-8 ####[facility] LABCLIA [id number] [place] [address] Platelets (Bld) [#/Vol] 259 10*3/uL Normal 150-400 [facility] Comment on above: Order Comment: Speci men Type: BLOOD SPECIMENOrdering Facility: [facility] Address: [address] [place] [address] Performed By: #### 5 7021-8 ####[facility] LABCLIA [id number] [place] [address] RBC (Bld) [#/Vol] 4.03 10*6/uL Normal 3.90-5.20 [facility] Comment on above: Order Comment: Speci men Type: BLOOD SPECIMENOrdering Facility: [facility] Address: [address] [place] [address] Performed By: #### 5 7021-8 ####[facility] LABCLIA [id number] [place] [address] WBC (Bld) [#/Vol] 7.85 10*3/uL Normal 3.70-11.00 [facility] Comment on above: Order Comment: Speci men Type: BLOOD SPECIMENOrdering Facility: [facility] Address: [address] [place] [place] [address] Performed By: #### 5 7021-8 ####[facility] LABCLIA [id number] [place] [address] Abs Immature Gran <0.03 <0.10 k/uL [facility] Basophils (Bld) [#/Vol] 0.03 10*3/uL <0.11 k/uL [facility] Basophils/100 WBC (Bld) 0.4 % C [facility] Differential cell count meth od Nom (Bld) Auto [facility] Eosinophils (Bld) [#/Vol] 0.29 10*3/uL <0.46 k/ uL [facility] Eosinophils/100 WBC (Bld) 3.7 % [facility] Erythrocyte distribution wid th (RBC) [Ratio] 13.2 % 11.5 - 15.0 % [facility] Hematocrit (Bld) [Volume fraction] 37.6 % 3 6.0 - 46.0 % [facility] Hemoglobin (Bld) [Mass/Vol] 12.1 g/dL 11.5 - 1 5.5 g/dL [facility] Immature Gran % 0.3 % [facility] Lymphocytes (Bld) [#/Vol] 3.28 10*3/uL 1.00 - 4 .00 k/uL [facility] Lymphocytes/100 WBC (Bld) 41.8 % [facility] MCH (RBC) [Entitic mass] 30.0 pg 26.0 - 34.0 pg [facility] MCHC (RBC) [Mass/Vol] 32.2 g/dL 30.5 - 36.0 g/ dL [facility] MCV (RBC) [Entitic vol] 93.3 fL 80.0 - 100.0 fL [facility] Monocytes (Bld) [#/Vol] 0.46 10*3/uL <0.87 k/uL [facility] Monocytes/100 WBC (Bld) 5.9 % C [facility] Neutrophils (Bld) [#/Vol] 3.77 10*3/uL 1.45 - 7 .50 k/uL [facility] Neutrophils/100 WBC (Bld) 47.9 % [facility] Nucleated RBC (Bld) [#/Vol] 10*3/uL <0.01 k/ uL [facility] Nucleated RBC/100 WBC (Bld) [Ratio] 0.0 /100 WBC [facility] Platelet mean volume (Bld) [ Entitic vol] 10.6 fL 9.0 - 12.7 fL [facility] Platelets (Bld) [#/Vol] 259 10*3/uL 150 - 400 k /uL [facility] RBC (Bld) [#/Vol] 4.03 10*6/uL 3.90 - 5.20 m/uL [facility] WBC (Bld) [#/Vol] 7.85 10*3/uL 3.70 - 11.00 k/u L [facility] CNOVSPon 07-28-2021 CNOVSP Visit (SP) Office ( EMA) JOHANNY FORBES ([id number]) 1940 F Date Time Provider Department 07/28/21 [...] in patient's care: Jorge Luis Simon (PCP), Campbell Marrero DIAGNOSIS: Axillary cancer of unknown primary ONCOLOGIC HISTORY AND TREATMENT DETAILS: ? Presented in January 2021 with left-sided axillary swelling over 2 to 3 weeks. This was confirmed by an ultrasound to be a 6.9 cm mass. FNA was nondiagnostic. ? March 18, 2021 left axillary node excision (Dr. Niño); path consistent with metastatic breast carcinoma, 5 cm, ER 0, FL 0, HER-2 0 by IHC. The tissue was not evaluated for flow cytometry to rule out a lymphoproliferative process. 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 Differential included mammary, skin, urothelial, pancreaticobiliary and pulmonary primaries. ER 0, FL 0, HER-2 negative by CAMERON. ? 2021 [...] today. Fo (more content not included)... Normal [facility] Comprehensive metabolic 2000 panelon 07-28-2021 Albumin [Mass/Vol] 4.2 g/dL Normal 3.9-4.9 [facility] Comment on above: Order Comment: Speci men Type: BLOOD SPECIMENOrdering Facility: [facility] Address: [address] [place] [address] Performed By: #### 2 4323-8 ####[facility] LABCLIA [id number] [place] [address] ALP [Catalytic activity/Vol] 72 U/L Normal 34-123 [facility] Comment on above: Order Comment: Speci men Type: BLOOD SPECIMENOrdering Facility: [facility] Address: [address] [address] Performed By: #### 2 4323-8 ####[facility] LABCLIA [id number] [place] [address] ALT [Catalytic activity/Vol] 7 U/L Normal 7-38 [facility] Comment on above: Order Comment: Speci men Type: BLOOD SPECIMENOrdering Facility: [facility] Address: [address] Performed By: #### 2 4323-8 ####[facility] LABCLIA [id number] [place] [address] Anion gap [Moles/Vol] 7 mmol/L Low 9-18 [facility] Comment on above: Order Comment: Speci men Type: BLOOD SPECIMENOrdering Facility: [facility] Address: [address] [place] [address] Performed By: #### 2 4323-8 ####[facility] LABCLIA [id number] [place] [address] AST [Catalytic activity/Vol] 17 U/L Normal 13-35 [facility] Comment on above: Order Comment: Speci men Type: BLOOD SPECIMENOrdering Facility: [facility] Address: [address] [place] [address] Performed By: #### 2 4323-8 ####[facility] LABCLIA [id number] [place] [address] Bilirubin [Mass/Vol] 0.4 mg/dL Normal 0.2-1.3 [facility] Comment on above: Order Comment: Speci men Type: BLOOD SPECIMENOrdering Facility: [facility] Address: [address] Performed By: #### 2 4323-8 ####[facility] LABCLIA [id number] [place] [address] Calcium [Mass/Vol] 9.8 mg/dL Normal 8.5-10.2 [facility] Comment on above: Order Comment: Speci men Type: BLOOD SPECIMENOrdering Facility: [facility] Address: [address] [place], [place] [address] Performed By: #### 2 4323-8 ####[facility] LABCLIA [id number] [place] [address] Chloride [Moles/Vol] 105 mmol/L Normal 97-105 [facility] Comment on above: Order Comment: Speci men Type: BLOOD SPECIMENOrdering Facility: [facility] Address: [address] [place] [address] Performed By: #### 2 4323-8 ####[facility] LABCLIA [id number] [place] [address] CO2 [Moles/Vol] 26 mmol/L Normal 22-30 [facility] Comment on above: Order Comment: Speci men Type: BLOOD SPECIMENOrdering Facility: [facility] Address: [address] [place] [address] Performed By: #### 2 4323-8 ####[facility] LABCLIA [id number] [place] [address] Creatinine [Mass/Vol] 1.31 mg/dL High 0.58-0.96 [facility] Comment on above: Order Comment: Speci men Type: BLOOD SPECIMENOrdering Facility: [facility] Address: [address] [place] [address] Performed By: #### 2 4323-8 ####[facility] LABCLIA [id number] [place] [address] ESTIMATED GLOMERULAR FILTRATION RATE 41 mL/min/1.73m??? Low >=60 [facility] Comment on above: Order Comment: Speci men Type: BLOOD SPECIMENOrdering Facility: [facility] Address: [address] [place] [address] Result Comment: Nereyda mated Glomerular Filtration Rate [...] actual GFR. Performed By: #### 2 4323-8 ####[facility] LABIA [id number] [place] [address] Glucose [Mass/Vol] 129 mg/dL High 74-99 [facility] Comment on above: Order Comment: Speci men Type: BLOOD SPECIMENOrdering Facility: [facility] Address: [address] [place] [address] Result Comment: The [place] Diabetes Association (ADA) provides guidance for cutoff [...] Standards of Medical Care in Diabetes 2016, [place] [employer]. Diabetes Care. 2016.39(Suppl 1). Performed By: #### 2 4323-8 ####[facility] LABIA [id number] [place] [address] Potassium [Moles/Vol] 4.6 mmol/L Normal 3.7-5.1 [facility] Comment on above: Order Comment: Speci men Type: BLOOD SPECIMENOrdering Facility: [facility] Address: [address] [id number] Performed By: #### 2 4323-8 ####[facility] LABIA [id number] [place] [address] Protein [Mass/Vol] 7.5 g/dL Normal 6.3-8.0 [facility] Comment on above: Order Comment: Speci men Type: BLOOD SPECIMENOrdering Facility: [facility] Address: [address] [place] [address] Performed By: #### 2 4323-8 ####[facility] LABCLIA [id number] [place] [address] Sodium [Moles/Vol] 138 mmol/L Normal 136-144 [facility] Comment on above: Order Comment: Speci men Type: BLOOD SPECIMENOrdering Facility: [facility] Address: [address] [place] [address] Performed By: #### 2 4323-8 ####[facility] LABCLIA [id number] [place] [address] Urea nitrogen [Mass/Vol] 22 mg/dL High 7-21 [facility] Comment on above: Order Comment: Speci men Type: BLOOD SPECIMENOrdering Facility: [facility] Address: [address] [place] [address] Performed By: #### 2 4323-8 ####[facility] LABCLIA [id number] [place] [address] FLOW CYTOMETRY REFLEXon 04-1 CASE REPORT Normal [facility] Comment on above: Order Comment: Speci men Type: BLOOD SPECIMENOrdering Facility: [facility] Address: [address] [place] [address] Result Comment: Flow Cytometry Case: [id number] Authorizing Provider: Drake Anand MD Collected: 07/28/2021 02:03 PM Ordering Location: Laboratory Medicine Received: 07/29/2021 12:43 PM Pathologist: Tang Oquendo MD Specimen: BLOOD Performed By: #### F LOWREFLEX ####[facility] LABCLIA [id number] [place] [address] [place] GROSS DESCRIPTION A. BLOOD. Normal [facility] Comment on above: Order Comment: Speci men Type: BLOOD SPECIMENOrdering Facility: [facility] Address: [address] [place] [address] Result Comment: Rece ived 4ml of peripheral blood in EDTA. Performed By: #### F LOWREFLEX ####[facility] LABCLIA [id number] [address] [place] INTERPRETATION Normal [facility] Comment on above: Order Comment: Speci men Type: BLOOD SPECIMENOrdering Facility: [facility] Address: [address] [place], [place] [id number] Result Comment: Spec imen type: BLOOD CBC [...] Negative CD200 B-cells Positive FMC7 B-cells Positive Joslin/Lambda B-cells Monotypic kappa Flow cytometric analysis of [...] developed and its performance characteristics determined by [facility]???s Vignesh Moraim[facility] Pathology and Laboratory Medicine [place] ([facility]). It has not been cleared or approved by the FDA. [facility] is regulated under CLIA as qualified to perform high- complexity testing. This test is used for clinical purposes. It should not be regarded as investigational or for research. KST/BB 07/29/21 Diagnostic interpretation performed at [facility], [address] [place] [address] CLIA# [id number] [employer]ator: Bharath Light M.D. Performed By: #### F LOWREFLEX ####[facility] LABCLIA [id number] [address] OF [facility] PERIPHERAL BLOOD LOW GRADE L EUK MARKERS FCon 07-28-2021 FLOW CYTOMETRY ORDER STATUS See Results in chart under F case ID Normal [facility] gab Comment on above: Order Comment: Speci men Type: BLOOD SPECIMENOrdering Facility: [facility] Address: [address] [place] [address] Performed By: #### P BLGLY ####[facility] LABCLIA [id number] [address] [place] CNPNon 07-22-2021 CNPN Telephone (HEMASA) JOHANNY FORBES ([id number]) 1940 F Date Time Provider Department 07/22/21 [...] discuss further. She can be reached at [phone]. ROSA ELENA Esteban MD 07/22/2021 2:38 PM [...] Fully Assessed Reason for Visit: Patient Question [9991] Prescriptions as of 07/22/2021 - aspirin 81 [...] Status:Closed by RU BLACKMAN on 07/22/21 Normal [facility] Aniket 07-01-2021 CNPN Telephone (HEMASA) JOHANNY FORBES ([id number]) 1940 F Date Time Provider Department 07/01/21 RU BLACKMAN During your visit today, we recorded the following information about you: Ru Blackman RN 07/01/2021 2:07 PM Signed Received call from pt wanting to know if Dr Anand got her results for the genetic testing on her tumor? SJK: Any message for pt? Or she can be reached at [phone]. ROSA ELENA Esteban MD 07/01/2021 2:49 PM [...] Status:Closed by RU BLACKMAN on 07/04/21 Normal [facility] MG MAMM DIAGNOSTIC 3D COY CA Don 05-03-2021 MG MAMM DIAGNOSTIC 3D CYO CAD Patient: JOHANNY FORBES Exam Date: 05/03/2021 : 1940 Gender:F Ordering : DRAKE ANAND Admission #: [id number] Family : DR JORGE LUIS SIMON Order #: [id number] CLICK HERE TO VIEW EXAM RADIOLOGY REPORT PROCEDURE: MAMMOGRAM DIAGNOSTIC 3D BILATERAL CAD COMPARISON: MAMMO SCREEN DIG COY, 01/22/2012. INDICATIONS: Secondary malignant neoplasm of axilla Calculator Name NCI Breast Cancer Risk Assessment Tool 5 Year Breast Cancer Risk n/a% Lifetime Breast Cancer Risk n/a% Personal Breast Cancer Yes Personal Ovarian Cancer No Treatments None Family Cancers None LOCATION: [facility] BREAST COMPOSITION: Scattered areas fibroglandular density. FINDINGS: [...] Galvan MD on 05/03/2021 at 14:[address] [facility] l POINT OF CARE GLUCOSEon 12-0 Glucose [Mass/Vol] 169 mg/dL Critically high 74-106 [facility] Comment on above: Performed By: #### P OCGLUC #### [facility] [address] [place] [address] Dr. Dontae Vallejo CBC AUTO DIFFon 03-14-2021 BASO # 0.1 103/ul Normal 0.0-0.1 [facility] Comment on above: Performed By: #### C BC #### [facility] [address] [place] [address] Dr. Dontae Vallejo Basophils/100 WBC (Bld) 0.6 % Normal 0.2-2.0 [facility] Comment on above: Performed By: #### C BC #### [facility] [address] [place] [address] Dr. Dontae Vallejo EO # 0.4 103/ul Normal 0.0-0.7 [facility] Comment on above: Performed By: #### C BC #### [facility] [address] [place] [address] Dr. Dontae Vallejo Eosinophils/100 WBC (Bld) 4.1 % Normal 0.9-7.0 [facility] Comment on above: Performed By: #### C BC #### [facility] [address] [place] [address] Dr. Dontae Vallejo Erythrocyte distribution wid th (RBC) [Ratio] 13.1 % Normal 11.0-15.0 [facility] Comment on above: Performed By: #### C BC #### [facility] [address] [place] [address] Dr. Dontae Vallejo Hematocrit (Bld) [Volume fraction] 37.1 % Normal 3 6.0-48.0 [facility] Comment on above: Performed By: #### C BC #### [facility] [address] [place] [address] Dr. Dontae Vallejo Hemoglobin (Bld) [Mass/Vol] 12.1 g/dL Normal 12.0-16. 0 [facility] Comment on above: Performed By: #### C BC #### [facility] [address] [place] [address] Dr. Dontae Vallejo IG # 0.03 10e3/ul Normal 0.00-0.03 [facility] Comment on above: Performed By: #### C BC #### [facility] [address] [place] [address] Dr. Dontae Vallejo IG % 0.3 % Normal 0.0-0.5 [facility] Comment on above: Performed By: #### C BC #### [facility] [address] [place] [address] Dr. Dontae Vallejo LYMPH # 4.5 103/ul Critically high 1.2-3.8 [facility] Comment on above: Performed By: #### C BC #### [facility] [address] [place] [address] Dr. Dontae Vallejo Lymphocytes/100 WBC (Bld) 44.8 % Normal 20.5-60.0 [facility] Comment on above: Performed By: #### C BC #### [facility] [address] [place] [address] Dr. Dontae Vallejo MANUAL DIFF REQ NO Normal [facility] Comment on above: Performed By: #### C BC #### [facility] [address] [place] [address] Dr. Dontae Vallejo MCH (RBC) [Entitic mass] 30.3 pg Normal 26.7-34.0 [facility] Comment on above: Performed By: #### C BC #### [facility] [address] [place] [address] Dr. Dontae Vallejo MCHC (RBC) [Mass/Vol] 32.6 g/dL Normal 29.9-35.2 [facility] Comment on above: Performed By: #### C BC #### [facility] [address] [place] [address] Dr. Dontae Vallejo MCV (RBC) [Entitic vol] 92.8 fL Normal 81.0-99.0 [facility] Comment on above: Performed By: #### C BC #### [facility] [address] [place] [address] Dr. Dontae Vallejo MONO # 0.5 103/ul Normal 0.3-0.8 [facility] Comment on above: Performed By: #### C BC #### [facility] [address] [address] [address] Dontae Vallejo Monocytes/100 WBC (Bld) 5.3 % Normal 1.7-12.0 [facility] Comment on above: Performed By: #### C BC #### [facility] [address] [address] [address] Dontae Vallejo NEUT # 4.5 103/ul Normal 1.4-6.5 [facility] Comment on above: Performed By: #### C BC #### [facility] [address] [place] [address] Dr. Dontae Vallejo Neutrophils/100 WBC (Bld) 44.9 % Normal 43.0-75.0 [facility] Comment on above: Performed By: #### C BC #### [facility] [address] [place] [address] Dr. Dontae Vallejo Platelet mean volume (Bld) [Entitic vol] 9.8 fL Normal 9.5-13.5 [facility] Comment on above: Performed By: #### C BC #### [facility] [address] [place] [address] Dr. Dontae Vallejo PLT 251 103/ul Normal 150-450 [facility] ostal Comment on above: Performed By: #### C BC #### [facility] [address] [place] [address] Dr. Dontae Vallejo RBC 4.00 106/ul Critically low 4.20-5.40 [facility] Comment on above: Performed By: #### C BC #### [facility] [address] [place] [address] Dr. Dontae Vallejo WBC 10.1 103/ul Normal 4.0-11.0 [facility] Comment on above: Performed By: #### C BC #### [facility] [address] [place] [address] Dr. Dontae Vallejo [facility]on [facility]-15 SARS-CoV-2 (COVID-19) RNA DEIDRE+probe Ql (Unsp spec) Not detected Normal NOT DETECTED [facility] Comment on above: Result Comment: This test is not yet approved or cleared by the [place] FDA. When there are no FDA-approved or cleared tests available, and other criteria are met, FDA can make tests available under an emergency access mechanism called an Emergency Use Authorization (EUA). The EUA for this test is supported by the [employer] Inspector of Health and Human Service's (HHS's) declaration [...] SARS-CoV-2. Performed By: #### C VDTB #### [facility] [address] [place] [address] Dr. Dontae Vallejo PROF CHEM 8 (BAS METB)on Anion gap [Moles/Vol] 10.5 mmol/L Normal [facility] Comment on above: Performed By: #### B MP #### [facility] [address] [place] [address] Dr. Dontae Vallejo Calcium [Mass/Vol] 9.5 mg/dL Normal 8.4-10.2 [facility] Comment on above: Performed By: #### B MP #### [facility] [address] [place] [address] Dr. Dontae Vallejo Chloride [Moles/Vol] 104 mmol/L Normal 98-107 [facility] Comment on above: Performed By: #### B MP #### [facility] [address] [place] [address] Dr. Dontae Vallejo CO2 [Moles/Vol] 26.8 mmol/L Normal 22.0-30.0 [facility] Comment on above: Performed By: #### B MP #### [facility] [id number] Dontae Vallejo Creatinine [Mass/Vol] 1.51 mg/dL Critically high 0.52-1.04 [facility] Comment on above: Performed By: #### B MP #### [facility] [id number] Dontae Vallejo EGFR-AF PORTUGUESE 40 mL/min/1.73m2 Critically low >=60 [facility] Comment on above: Performed By: #### B MP #### [facility] [address] [address] [address] Dontae Vallejo EGFR-NON AF [place]UESE 33 mL/min/1.73m2 Critically low >=60 [facility] Comment on above: Performed By: #### B MP #### [facility] [address] [address] [address] Dontae Vallejo Glucose [Mass/Vol] 145 mg/dL Critically high 74-106 [facility] Comment on above: Performed By: #### B MP #### [facility] [address] [address] [address] Dontae Vallejo Potassium [Moles/Vol] 4.3 mmol/L Normal 3.4-5.0 [facility] Comment on above: Performed By: #### B MP #### [facility] [address] [address] [address] Dontae Vallejo Sodium [Moles/Vol] 137 mmol/L Normal 137-145 [facility] Comment on above: Performed By: #### B MP #### [facility] [id number] Dontae Vallejo Urea nitrogen [Mass/Vol] 29.0 mg/dL Critically high 7.0-17 .0 [facility] Comment on above: Performed By: #### B MP #### [facility] [id number] Dontae Vallejo Urea nitrogen/Creatinine [Mass ratio] 19.2 mg/mg Normal [facility] Comment on above: Performed By: #### B MP #### [facility] [address] [address] [address] Dontae Vallejo US FINE NDL ASP W US GDNCEon 02-07-2021 US FINE NDL ASP W US GDNCE Begin Addendum #1 COLLECTED DATE/TIME: 01/24/2021 14:27 EDT Final Diagnosis Report for [place] (A/B) LEFT AXILLA MASS; FINE NEEDLE [...] 2. Pathology results are pending. Normal [facility] LEUKEMIA/LYMPHOMA PROFILEon 01-31-2021 ANALYSIS AND GATING STRATEGY Comment Normal [facility] Comment on above: Result Comment: 8 co geri analysis with 7-AAD, CD45/SSC gating Performed at: -Y Performed By: #### F LOWL #### [facility] [address] [place] [address] Dr. Dontae Vallejo ASSESSMENT OF LEUKOCYTES Comment Normal [facility] Comment on above: Result Comment: Ghulam a and lambda staining cannot be interpreted due to nonspecific light chain binding. A subset of T cells show CD10 expression. CD4:CD8 ratio 2.3 Analysis of the viable lymphoid cells shows: B cells 18%, T cells 82% Performed at: -Y Performed By: #### F LOWL #### [facility] [address] [address] [address] Dontae Vallejo COMMENT Comment Normal [facility] Comment on above: Result Comment: Each antibody in this assay was utilized to assess for potential abnormalities of studied cell populations or to characterize identified abnormalities. . This test was developed and its performance characteristics determined by [employer]. It has not been cleared or approved by the U.S. Food and Drug Administration. . The FDA has determined that such clearance or approval is not necessary. This test is used for clinical purposes. It should not be regarded as investigational or for research. Performed at: TG Performed By: #### F LOWL #### [facility] [address] [address] [address] Dontae Vallejo FLOW COMMENT Comment Normal [facility] Comment on above: Result Comment: Ghulam a [...] -Y Performed By: #### F LOWL #### [facility] [id number] Dontae Vallejo FLOW INTERPRETATION Comment Normal [facility] Comment on above: Result Comment: B ce ll clonality cannot be evaluated, T cells with CD10 expression in a small subset, low viability specimen, see comment. Performed at: -Y Performed By: #### F LOWL #### [facility] [id number] Dontae Vallejo PHENOTYPE CHART Comment Normal [facility] [place] [facility] Comment on above: Result Comment: CD2 Normal CD3 Normal CD4 Normal CD5 Normal CD7 Normal CD8 Normal CD10 See Text CD11b Normal CD19 Normal CD20 Normal CD23 Normal CD38 Normal CD45 Normal CD56 Normal CD57 Normal [facility]-7 Normal HLA-DR Normal KAPPA See Text LAMBDA See Text Performed at: -Y Performed By: #### F LOWL #### [facility] [address] [place] [address] Dr. Dontae Vallejo RESULTING PATH NAME Comment Normal [facility] Comment on above: Result Comment: Raul Oliveros M.D. Performed at: -Y Performed By: #### F LOWL #### [facility] [address] [place] [address] Dr. Dontae Vallejo Specimen type Nom (Spec) Comment Normal [facility] Comment on above: Result Comment: Left axillary mass lymph node Performed at: -Y Performed By: #### F LOWL #### [facility] [address] [place] [address] Dr. Dontae Vallejo VIABILITY Comment Normal [facility] Comment on above: Result Comment: [...] -Y Performed By: #### F LOWL #### [facility] [address] [place] [address] Dr. Dontae Vallejo US EXT NON VASC [...] TENZIN GALVAN Date: 2021-01-07 16:37 Normal [facility] l CBC AUTO DIFFon 11-02-2020 BASO # 0.1 103/ul Normal 0.0-0.1 [facility] Comment on above: Performed By: #### C BC #### [facility] [address] [place], [place] [address] Jose Bambi Basophils/100 WBC (Bld) 0.6 % Normal 0.2-2.0 [facility] Comment on above: Performed By: #### C BC #### [facility] [address] [place], [place] [id number] Jose Bambi EO # 0.4 103/ul Normal 0.0-0.7 [facility] Comment on above: Performed By: #### C BC #### [facility] [address] [place], [place] [id number] Jose Bambi Eosinophils/100 WBC (Bld) 3.7 % Normal 0.9-7.0 [facility] Comment on above: Performed By: #### C BC #### [facility] [address] [place], [place] [id number] Jose Bambi Erythrocyte distribution wid th (RBC) [Ratio] 13.2 % Normal 11.0-15.0 [facility] Comment on above: Performed By: #### C BC #### [facility] [address] [place], [place] [id number] Jose Bambi Hematocrit (Bld) [Volume fraction] 36.1 % Normal 3 6.0-48.0 [facility] Comment on above: Performed By: #### C BC #### [facility] [address] [place], [place] [id number] Jose Bambi Hemoglobin (Bld) [Mass/Vol] 11.7 g/dL Critically low 12.0 -16.0 [facility] Comment on above: Performed By: #### C BC #### [facility] [address] [place], [place] [address] Jose Bambi IG # 0.03 10e3/ul Normal 0.00-0.03 [facility] Comment on above: Performed By: #### C BC #### [facility] [address] [place], [place] [address] Jose Bambi IG % 0.3 % Normal 0.0-0.5 [facility] Comment on above: Performed By: #### C BC #### [facility] [address] [address] Jose Bambi LYMPH # 4.4 103/ul Critically high 1.2-3.8 [facility] Comment on above: Performed By: #### C BC #### [facility] [address] [address] Jose Bambi Lymphocytes/100 WBC (Bld) 44.9 % Normal 20.5-60.0 [facility] Comment on above: Performed By: #### C BC #### [facility] [address] [place], [place] [address] Jose Bambi MANUAL DIFF REQ NO Normal [facility] Comment on above: Performed By: #### C BC #### [facility] [address] [place], [place] [id number] Jose Bambi MCH (RBC) [Entitic mass] 30.5 pg Normal 26.7-34.0 [facility] Comment on above: Performed By: #### C BC #### [facility] [address] [place], [place] [id number] Jose Bambi MCHC (RBC) [Mass/Vol] 32.4 g/dL Normal 29.9-35.2 [facility] Comment on above: Performed By: #### C BC #### [facility] [address] [place], [place] [id number] Jose Bambi MCV (RBC) [Entitic vol] 94.0 fL Normal 81.0-99.0 [facility] Comment on above: Performed By: #### C BC #### [facility] [address] [place], [place] [address] Jose Bambi MONO # 0.6 103/ul Normal 0.3-0.8 [facility] Comment on above: Performed By: #### C BC #### [facility] [address] [place], [place] [id number] Jose Bambi Monocytes/100 WBC (Bld) 5.7 % Normal 1.7-12.0 [facility] Comment on above: Performed By: #### C BC #### [facility] [address], [place] [address] Jose Bambi NEUT # 4.4 103/ul Normal 1.4-6.5 [facility] Comment on above: Performed By: #### C BC #### [facility] [address] [place] [id number] Jose Millarden Neutrophils/100 WBC (Bld) 44.8 % Normal 43.0-75.0 [facility] Comment on above: Performed By: #### C BC #### [facility] [address] [place] [phone] Josevlad Layc Platelet mean volume (Bld) [ Entitic vol] 11.3 fL Normal 9.5-13.5 [facility] Comment on above: Performed By: #### C BC #### [facility] [address] [place] [address] Jose Bambi PLT 239 103/ul Normal 150-450 [facility] Comment on above: Performed By: #### C BC #### [facility] [address] [place] [id number] Jose Bambi RBC 3.84 106/ul Critically low 4.20-5.40 [facility] [place] [facility] Comment on above: Performed By: #### C BC #### [facility] [address] [place] [address] Jose Bambi WBC 9.8 103/ul Normal 4.0-11.0 [facility] Comment on above: Performed By: #### C BC #### [facility] [address] [place] [address] Josevlad Lacy Vital Signs Date Time Vital Sign Value Performing Clinician Facility 03-12-2022 12:15-0500 Body height 160.02 cm Gabi Gaona Other [facility] Other 03-12-2022 12:15-0500 Body mass index (BMI) [Ratio] 26.57 kg/m2 Gabi Gaona Other [facility] Other 03-12-2022 12:15-0500 Body temperature 97.8 [degF] Gabi Candelaria Other [facility] Other 03-12-2022 12:15-0500 Body weight 68.04 kg Gabi Candelaria Other [facility] Other 03-12-2022 12:15-0500 Diastolic blood pressure 68 mm[Hg] Gabi Candelaria Other [facility] Other 03-12-2022 12:15-0500 Respiratory rate 18 /min Gabi Candelaria Other [facility] Other 03-12-2022 12:15-0500 SaO2% (BldA) [Mass fraction] 98 % Gabi Gaona Other [facility] Other 03-12-2022 12:15-0500 Systolic blood pressure 123 mm[Hg] Gabi Candelaria Other [facility] Other 01-31-2022 15:09-0400 Body height 158.9 cm Simin Lama MD Work Phone: [facility] 01-31-2022 15:09-0400 Body temperature 97.3 [degF] Simin Lama MD Work Phone: [facility] 01-31-2022 15:09-0400 Body weight 70.03 kg Simin Lama MD Work Phone: [facility] 01-31-2022 15:09-0400 Diastolic blood pressure 65 mm[Hg] Simin Lama MD Work Phone: [facility] 01-31-2022 15:09-0400 Heart rate 62 /min Simin Lama MD Work Phone: [facility] 01-31-2022 15:09-0400 Respiratory rate 16 /min Simin Lama MD Work Phone: [facility] 01-31-2022 15:09-0400 SaO2% (BldA) [Mass fraction] 100 % Simin Lama MD Work Phone: [facility] 01-31-2022 15:09-0400 Systolic blood pressure 142 mm[Hg] Simin Lama MD Work Phone: [facility] 07-28-2021 14:24-0400 Body height 158.9 cm Drake Anand MD Work Phone: [facility] 07-28-2021 14:24-0400 Body temperature 97.9 [degF] Drake Anand MD Work Phone: [facility] 07-28-2021 14:24-0400 Body weight 69.94 kg Drake Anand MD Work Phone: [facility] 07-28-2021 14:24-0400 Diastolic blood pressure 74 mm[Hg] Drake Anand MD Work Phone: [facility] 07-28-2021 14:24-0400 Heart rate 56 /min Drake Anand MD Work Phone: [facility] 07-28-2021 14:24-0400 Respiratory rate 18 /min Drake Anand MD Work Phone: [facility] 07-28-2021 14:24-0400 SaO2% (BldA) [Mass fraction] 98 % Drake Anand MD Work Phone: [facility] 07-28-2021 14:24-0400 Systolic blood pressure 150 mm[Hg] Drake Anand MD Work Phone: [facility] Encounters Encounter Date Encounter Type Care Provider Facility Start: 03-16-2023 End: 03-16-2023 ambulatory AMGALI HUIZAR Not Available Start: 05-15-2022 End: 05-15-2022 ambulatory Simin Freemanyarelylou Facility:[facility] Start: 05-15-2022 Telephone encounter Simin stanford MD Work Phone: [facility] Comment on above: Orders Start: 05-15-2022 End: 05-15-2022 ambulatory DO Jorge Luis Furlong Work Phone: [facility] Work Phone: Start: 05-15-2022 End: 05-15-2022 Patient encounter procedure DO Jorge Luis Furlong Work Phone: [facility] Work Phone: Start: 03-12-2022 End: 03-12-2022 ambulatory Gabi Gaona Other [facility] Other Start: 03-12-2022 Office outpatient new 20 minutes Gabi Gaona [facility] [place] Start: 02-13-2022 Telephone encounter Shiva Bess Hematology/Oncology Comment on above: Appointment Start: 01-31-2022 End: 01-31-2022 ambulatory SIMINRA REIDDionna Facility:[facility] Start: 01-31-2022 End: 01-31-2022 ambulatory Simin Lama MD Work Phone: Hematology/Oncology Comment on above: 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, left (HCC) (Primary Dx) Start: 01-31-2022 End: 01-31-2022 Patient encounter procedure Simin Lama MD Work Phone: [facility] Start: 01-31-2022 Telephone encounter Simin stanford MD Work Phone: [facility] Comment on above: Appointment Start: 07-28-2021 End: 07-28-2021 ambulatory DRAKE ANAND Facility:[facility] Start: 07-28-2021 End: 07-28-2021 ambulatory Drake Anand MD Work Phone: Hematology/Oncology Comment on above: 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, left (HCC) (Primary Dx); Lymphocytosis Start: 07-28-2021 End: 07-28-2021 Patient encounter procedure Drake Anand MD Work Phone: [facility] Start: 07-22-2021 Telephone encounter Ru Blackman bone density technician/Oncology Comment on above: Patient Question Start: 05-03-2021 End: 05-04-[address] TENZIN GALVAN Facility:[facility] Start: 04-12-2021 Telephone encounter Amarilys hutton PA-C Work Phone: Hematology/Oncology Comment on above: Service Tech - O ther Start: 03-19-2021 Encounter for prepro cedural cardiovascular examination DR TIM NIÑO [facility] Start: 03-19-2021 Encounter for prepro cedural laboratory examination DR TIM NIÑO [facility] Start: 03-18-2021 End: 03-18-[address] TIM [...] Author Start: 07-28-2024 DIABETES SCREEN [facility] Start: 04-11-2024 DIABETES SCREEN DIABETES SCREEN 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, left (HCC) Expected: 06/03/2022 (Approximate), Expires: 08/03/2022 [facility] Work Phone: Comment on above: Expected: 06/03/2022 (Approximate), Expires: 08/03/2022 Start: 05-12-2022 Adult depression screening assessment DEPRESSION SCREENING [facility] Start: 04-16-2022 ADVANCE DIRECTIVE DISCUSSION ADVANCE DIRECTIVE DISCUSSION [facility] Start: 04-16-2022 DEPRESSION ASSESSMENT DEPRESSION ASS ESSMENT [facility] Start: 02-14-2022 End: 03-02-2023 Diagnostic mammography computer-aided detcj uni [facility] Radiology Routine 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, left (HCC) Expected: 02/14/2022, Expires: 03/02/2023 [facility] Work Phone: Comment on above: Expected: 02/14/2022 , Expires: 03/02/2023 Start: 12-15-2021 Influenza vaccination [facility] Start: 06-07-2021 COVID-19 VACCINE (4 - Booster for Pfizer series) COVID-19 VACCINE (4 - Booster for Pfizer series) [facility] Start: 04-16-2021 ADVANCE DIRECTIVE DISCUSSION ADVANCE DIRECTIVE DISCUSSION [facility] Start: 04-16-2021 DEPRESSION ASSESSMENT DEPRESSION ASS ESSMENT [facility] Start: 04-01-2021 COVID-19 VACCINE (4 - Booster for Pfizer series) COVID-19 VACCINE (4 - Booster for Pfizer series) [facility] Start: 2006 BONE DENSITY BONE DENSITY [facility] Start: 1991 SHINGRIX VACCINE (1 of 2) SHINGRIX VACCINE (1 of 2) [facility] Start: 1960 Urine microalbumin profile DTAP,TDAP,TD (1 - Tdap) [facility] End: 07-28-2022 CBC W Auto Differential panel - Blood CBC + DIFF Lab Routine 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, left (HCC) Every 3 months for 10 Occurrences starting 07/28/2021 until 07/28/2022, 1 completed [facility] Work Phone: Comment on above: Every 3 months for 1 0 Occurrences starting 07/28/2021 until 07/28/2022, 1 completed End: 07-28-2022 Comprehensive metabolic 2000 panel - Serum or Plasma COMP METABOLIC PANEL Lab Routine 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, left (HCC) Every 3 months for 10 Occurrences starting 07/28/2021 until 07/28/2022 [facility] Work Phone: Comment on above: Every 3 months for 1 0 Occurrences starting 07/28/2021 until 07/28/2022 End: 06-14-2023 Diagnostic mammography computer-aided detcj bi [facility] Radiology Routine 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, left (HCC) 1 Occurrences starting 05/15/2022 until 06/14/2023 [facility] Work Phone: Comment on above: 1 Occurrences starti ng 05/15/2022 until 06/14/2023 End: 08-27-2022 Screening mammography bi 2-view breast inc cad DANIELLE SCREENING Radiology Routine 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, left (HCC) 1 Occurrences starting 07/28/2021 until 08/27/2022 [facility] Work Phone: Comment on above: 1 Occurrences starti ng 07/28/2021 until 08/27/2022 End: 06-14-2023 Us breast uni real time with image limited [facility] Work Phone: Comment on above: 1 Occurrences starti ng 05/15/2022 until 06/14/2023 [facility] Immunizations Immunization Date Immunization Notes Care Provider Fa cility 02-04-2021 COVID-19 vaccine, ag e 12+ yr (PFIZER-BIONTECH - PURPLE TOP) Ru Blackman RN [facility] 06-03-2020 COVID-19 vaccine, ag e 12+ yr (PFIZER-BIONTECH - PURPLE TOP) Ru Blackman RN [facility] 05-12-2020 COVID-19 vaccine, ag e 12+ yr (PFIZER-BIONTECH - PURPLE TOP) Ru Blackman RN [facility] 12-26-2019 influenza, high dose seasonal, preservative-free Ru Blackman RN [facility] 01-24-2018 influenza, high dose seasonal, preservative-free Ru Blackman RN [facility] 01-25-2017 influenza, high dose seasonal, preservative-free Ru Blackman [facility] 10-12-2014 pneumococcal conjuga te vaccine, 13 valent Ru Blackman RN [facility] 04-05-2010 pneumococcal polysaccharide vaccine, 23 valent Ru Blackman [facility] Payers Date Payer Category Payer Self-pay [id number] 2018 Unknown ANTHEM BLUE CROS S AND BLUE SHIELD ANTHEM MEDIBLUE O [id number] 2018-Present [phone] [id number] [facility] [id number] 2018 Unknown ANTHEM BLUE CROS S AND BLUE SHIELD ANTHEM MEDIBLUE O [id number] 2018-Present [phone] [address] [place] [id number] O [id number] 1959 Unknown [id number] 1941 Unknown [id number] 1941 Unknown [id number] 1941 Unknown [id number] 1941 Unknown [id number] 1941 Unknown [id number] 1941 Unknown [id number] 1941 Unknown [id number] 1941 Unknown [id number] 1941 Unknown [id number] 9 Unknown [id number] Social History Date Type Detail Facility Start: 04-05-2021 Tobacco smoking status NHIS Never smoked tobacco [facility] Start: 04-05-2021 Tobacco use and exposure Smokeless tobacco non-user [facility] Start: 05-12-2021 End: 01-31-2022 Alcohol intake Ex-drinker (finding) [facility] Start: 1940 Sex Assigned At Not on file [facility] Start: 07-18-2021 End: 01-31-2022 Exposure to SARS-CoV-2 (event) Not sure [facility] Sex Assigned At Sex Assigned At [facility] Other Start: 1940 Sex Assigned At Female F [facility] Clinical Notes 03-18-2021 to 05-15-2022 Telephone Encounter - Ru Thomas RN - 05/15/2022 2:18 PM ESTTelephone Encounter - Honey Almeida - 05/15/2022 2:15 PM ESTTelephone Encounter - Honey Juan Pablo - 05/15/2022 2:14 PM EST Note Date & Type Note Facility 05-15-2022 Miscellaneous Notes Formattin g of this note might be different from the original. Received call from pt stating she is at [facility] and needs mammogram orders sent. Orders faxed as requested. Ru Thomas RN documented in this encounter [facility] 05-15-2022 Miscellaneous Notes Formattin g of this note might be different from the original. Faxed order to Chrissie May 15, 2022 2:15 PM Honey Almeida Faxed order to Chrissie May 15, 2022 2:15 PM Honey Almeida Ordered Patient is currently at [facility] for her Mammogram. Chrissie is calling to request a new order. 1) Diagnostic Bilateral Mammogram 2) US order (that way they have it if needed) ABDIFATAH/Amarilys: If in agreement, can you please place order PERLITA and I will fax back to her? Thanks! Chrissie: Ph. [phone] Fax. [phone] Honey Almeida documented in this encounter [facility] 03-12-2022 Evaluation note Encounter Date Diagnosis Assessment [...] no improvement in 2 to 3 days. [facility] Other 10-31-2022 Miscellaneous Notes* Telephone Encounter - [...] advise Shiva Reyes RN documented in this encounterPremier Health10-18-2022 NoteHNO ID: [id number] Author: Simin Lama MD Service: ? Author Type: Physician Type: Progress Notes Filed: 01/31/2022 3:38 PM Note Text: PATIENT NAME: Johanny Forbes [facility] NO.: [id number] ATTENDING PHYSICIAN: Simin Lama MD DATE OF [...] metastatic breast carcinoma, 5 cm, ER 0, FL 0, HER-2 0 by IHC. The tissue was not evaluated for flow cytometry to rule out a lymphoproliferative process. 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 Differential included mammary, skin, urothelial, pancreaticobiliary and pulmonary primaries. ER 0, FL 0, HER-2 negative by CAMERON. 2021 PET [...] 04/11/2021 141 Chloride (mmol (more content not included)...[facility] 01-31-2022 Miscellaneous Notes* Telephone Encounter - Honey Almeida - 01/31/2022 4:[address] Lama, patient had a previous abnormal L Mammogram and never followed up. He would like L Mammogram completed now. Faxed order to [facility] scheduling per patient's hospital request. Honey Almeida documented in this encounterPremier Health10-18-2022 History of Present illness Narrative* Simin Lama MD - 01/31/2022 3:19 PM EDT PATIENT NAME: Johanny Forbes CLINIC NO.: [id number] ATTENDING PHYSICIAN: Smiin Lama MD DATE OF SERVICE: January 31, [...] metastatic breast carcinoma, 5 cm, ER 0, FL 0, HER-2 0 by IHC. The tissue was not evaluated for flow cytometry to rule out a lymphoproliferative process. 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 Differential included mammary, skin, urothelial, pancreaticobiliary and pulmonary primaries. ER 0, FL 0, HER-2 negative by CAMERON. 2021 PET [...] 07/28/2021 3.28 1.00 - 4.00 k/uL Final [place]% Date Value Ref Range Status 07/28/2021 5.9 % Final Abs [place] Date Value Ref Range Status 07/28/2021 0.46 [...] consensus conference on 04/28/2021, via telepathology, by Maira Saunders Booth and Ryan, of the [facility] breast pathology department, who concur. Metastatic carcinoma [...] do not hesitate to contact me at [phone]. Simin Lama MD Hematology/Medical Oncology [facility] I spent a total of 30 minutes on the date of the service which included preparing to see the patient, [id number] patient care, completing clinical documentation, obtaining and/or reviewing separately obtained history, performing a medically appropriate examination, counseling and educating the pat ient/family/caregiver, and ordering medications, tests, or procedures. Medical Decision Making: Medical Decision Making Level: 1 - N/A CC: DO Jorge Luis Webster DO documented in this encounterPremier Health04-14-2022 NoteHNO ID: [id number] Author: Drake Anand MD Service: ? Author [...] metastatic breast carcinoma, 5 cm, ER 0, FL 0, HER-2 0 by IHC. The tissue was not evaluated for flow cytometry to rule out a lymphoproliferative process. 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 Differential included mammary, skin, urothelial, pancreaticobiliary and pulmonary primaries. ER 0, FL 0, HER-2 negative by CAMERON. ? 2021 [...] date of the (more content not included)... [facility]04-14-2022 History of Present illness Narrative* Drake Anand [...] metastatic breast carcinoma, 5 cm, ER 0, FL 0, HER-2 0 by IHC. The tissue was not evaluated for flow cytometry to rule out a lymphoproliferative process. 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 Differential included mammary, skin, urothelial, pancreaticobiliary and pulmonary primaries. ER 0, FL 0, HER-2 negative by CAMERON. 2021 PET [...] which included preparing to see the patient, [id number] patient care, completing clinical documentation, obtaining and/or reviewing separately obtained history, counseling and educating the patient/family/caregiver, ordering medications, herlinda ts, or procedures, independently interpreting results (not separately reported) and communicating results to the patient/family/caregiver. documented in this encounterPremier Health04-08-2022 Miscellaneous Notes* Telephone Encounter - Thao Vallecillo [...] discuss further. She can be reached at [phone]. Ru Blackman RN documented in this encounterPremier Health12-28-2021 Miscellaneous Notes* Telephone Encounter - Amarilys Murry PA-C - 04/12/2021 4:42 PM EST Request received from [facility] for additional diagnosis codes for MRI breast because diagnosis providedis not a covered diagnosis. Will send with additional diagnosis codes. Will try C50.912 and C77.3. (carcinoma of breast metastatic to left axillary node) Amarilys Murry PA-C documented in this encounterPremier Health12-03-2021 NoteOPERATIVE NOTE OPERATION DATE: 03-18-21 ANESTHETIC:LMA. PROPERTY AND CASUALTY INSURANCE AGENT:COLTON Enciso PREOPERATIVE DIAGNOSIS:Left axillary mass. POSTOPERATIVE DIAGNOSIS: [...] taken to the PACU in fair condition. [facility] Signed and Approved by: DR TIM NIÑO . 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 [address] [facility] [address] [place] [phone] Referral ID Status Reason Start Date Expiration Date Visits Requested Visits Authorized [id number] Pending Review Auto-Generat ed Referral 07/28/2021 08/27/[address] 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, left (HCC) Procedures US BREAST LTD RT US BREAST UNI REAL TIME WITH IMAGE LIMITED Simin Lama MD [address] [place] [address] [facility] [address] [place] [address] Referral ID Status Reason Start Date Expiration Date Visits Requested Visits Authorized [id number] Pending Review Auto-Generat ed Referral 05/15/2022 06/14/2023 1 1 * Diagnostic Procedure Only (Routine) - Pending Review Specialty Diagnoses / Procedures Referred By Contac t Referred To Contact [facility] Diagnoses 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, left (HCC) Procedures US BREAST LTD LT US BREAST UNI REAL TIME WITH IMAGE LIMITED Simin Lama MD [address] [place] [address] [facility] [address] [place] [address] Referral ID Status Reason Start Date Expiration Date Visits Requested Visits Authorized [id number] Pending Review Auto-Generat ed Referral 05/15/2022 06/14/2023 1 1 * Diagnostic Procedure Only (Routine) - Pending Review Specialty Diagnoses / Procedures Referred By Jerry t Referred To Contact [facility] Diagnoses 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, left (HCC) Procedures DANIELLE DIAGNOSTIC BILAT DIAGNOSTIC MAMMOGRAPHY COMPUTER-AIDED DETCJ Simin Lin MD [address] [place] [address] [facility] [address] [place] [address] Referral ID Status Reason Start Date Expiration Date Visits Requested Visits Authorized [id number] Pending Review Auto-Generat ed Referral 05/15/2022 06/14/2023 1 1 [facility] Summary Purpose Family History No Family History [...] section and content) DATE CREATED AUTHOR 06/27/2018 [facility] DATE CREATED AUTHOR AUTHOR'S ORGANIZ ATION [facility] DATE CREATED AUTHOR AUTHOR'S ORGANIZ ATION 05/07/2021 [facility] DATE CREATED AUTHOR AUTHOR'S ORGANIZ ATION 12/11/2021 [facility] DATE CREATED AUTHOR AUTHOR'S ORGANIZ ATION 05/16/2022 [facility] DATE CREATED AUTHOR AUTHOR'S ORGANIZ ATION 05/24/2022 [facility] DATE CREATED AUTHOR AUTHOR'S ORGANIZ ATION 03/19/2023 [facility] EP[employer] Source Comments (unrecognize d section and content) In the event this informatio n is protected by the Federal Confidentiality of Alcohol and Drug Abuse Patient Records regulations: The Federal rules restrict any use of the information to criminally investigate or prosecute any alcohol or drug abuse patient.Premier HealthIn the event this information is protected by the Federal Confidentiality of Alcohol and Drug Abuse Patient Records regulations: The Federal rules restrict any use of the information to criminally investigate or prosecute any alcohol or drug abuse patient.Premier HealthIn the event this information is protected by the Federal Confidentiality of Alcohol and Drug Abuse Patient Records regulations: The Federal rules restrict any use of the information to criminally investigate or prosecute any alcohol or drug abuse patient.[facility] HealthIn the event this information is protected by the Federal Confidentiality of Alcohol and Drug Abuse Patient Records regulations: The Federal rules restrict any use of the information to criminally investigate or prosecute any alcohol or drug abuse patient.Premier HealthIn the event this information is protected by the Federal Confidentiality of Alcohol and Drug Abuse Patient Records regulations: The Federal rules restrict any use of the information to criminally investigate or prosecute any alcohol or drug abuse patient.Premier HealthIn the event this information is protected by the Federal Confidentiality of Alcohol and Drug Abuse Patient Records regulations: The Federal rules restrict any use of the information to criminally investigate or prosecute any alcohol or drug abuse patient.Premier HealthIn the event this information is protected by the Federal Confidentiality of Alcohol and Drug Abuse Patient Records regulations: The Federal rules restrict any use of the information to criminally investigate or prosecute any alcohol or drug abuse patient.Premier HealthIn the event this information is protected by the Federal Confidentiality of Alcohol and Drug Abuse Patient Records regulations: The Federal rules restrict any use of the information to criminally investigate or prosecute any alcohol or drug abuse patient.[facility] Reason for Visit (unrecogniz ed section and content) Reason Comments Patient Question Reason Comments Breast Cancer Reason Comments Service Tech - Other Reason Comments Breast Cancer Follow up Reason Comments Appointment Reason Comments Orders Reason Comments Orders Care Teams (unrecognized sec tion and content) Barrel Coater Relationship Specialty Start Date End Date Jorge Luis Simon [address] [place] [address] PCP - General Family Practice 03/28/21 Barrel Coater Relationship Specialty Start Date End Date Jorge Luis Simon [address] [place] [address] PCP - General Family Practice 03/28/21 Barrel Coater Relationship Specialty Start Date End Date Jorge Luis Simon, DO [address] [place] [address] PCP - General Family Practice 03/28/21 Barrel Coater Relationship Specialty Start Date End Date Jorge Luis Simon, DO [address] [place] [address] PCP - General Family Medicine 03/28/21 Barrel Coater Relationship Specialty Start Date End Date Jorge Luis Simon, DO [address] [place] [address] PCP - General Family Medicine 03/28/21 Barrel Coater Relationship Specialty Start Date End Date Jorge Luis Simon, DO [address] [place] [address] PCP - General Family Medicine 03/28/21 Barrel Coater Relationship Specialty Start Date End Date Jorge Luis Simon, DO [address] [place] [address] PCP - General Family Medicine 03/28/21 Barrel Coater Relationship Specialty Start Date End Date Charley Jorge Luis Hodge DO [address] [place] [address] PCP - General Family Medicine [...] BE BASED ON THE PRIMARY CLINICAL RECORDS. [facility]. provides no warranty or guarantee of the accuracy or completeness of information in this document.
--- OUTSIDE RECORDS SUMMARY | 2023-04-04 02:48 | XMS_ITS | CCD ---
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 Name Role Phone RIAN ROSS Admitting Unavailable [...] DO Jorge Luis Simon Primary Care Provider [phone] MD Simin Lama Attending Provider [phone] DRAKE ANAND Attending Unavailable MATTY ANANDARTH Referring [...] Translations: [LISINOPRIL] Drug Allergy 04-05-20 21 [facility] Repository (3 sources) Penicillins; Translations: [PENICILLINS] Drug allergy (disorder) 09-21-19 16 Rash [facility] Repository (8 sources) Lisinopril Drug Allergy 04-05-20 21 Unknown [facility] (2 sources) Penicillins Drug Intolerance 04-05-20 21 Other: See Comments [facility] (6 sources) Penicillins Drug Intolerance 04-05-20 21 Other: See Comments [facility] (5 sources) Amino Acids Drug Allergy 02-01-20 22 Other: See Comments [facility] (1 source) Penicillin V Drug Allergy dizziness, LOC [facility] Other (1 source) Penicillins Drug allergy (disorder) 06-15-19 19 [facility] Repository Medications Current Medications Medication Drug Class(es) [...] disease (3 sources) Atherosclerotic heart disease of [place] coronary artery without angina pectoris; Translations: [Old [...] diseases] Episodic Other aftercare (1 source) Other residential (current) drug therapy; Translations: [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 Chrissie is calling to request a new order. 1) Diagnostic Bilateral Mammogram 2) US order (that way they have it if needed) Jyothi: If in agreement, can you please place order PERLITA and I will fax back to her? Thanks! Chrissie: Ph. [phone] Fax. [phone] Honey Lama MD 05/15/2022 2:11 PM Signed [...] axillary lymph node, left (HCC) [C50.912, C77.3] Order(s):[facility] DIAGNOSTIC BILAT [7648815] Order #: [id number] FUTURE BREAST LTD LT [[id number]] Order #: [id number] FUTURE [facility] BREAST LTD RT [[id number]] Order #: [id number] FUTURE Prescriptions as of 05/15/2022 - aspirin [...] Encounter Status:Closed by HONEY ALMEIDA [facility] JOHANNY FORBES ([id number]) 1940 F Date Time Provider Department 05/15/22 RU THOMAS During your visit today, we recorded the following information about you: Ru Thomas RN 05/15/2022 2:19 PM Signed Received call from pt stating she is [place] [facility] and needs mammogram orders sent. Orders faxed [...] Status:Closed by RU THOMAS on 05/15/22 Normal [facility] MM diagnostic mammo BI w/CAD on 05-15-2022 MM diagnostic mammo BI w/CAD [facility] [place] [address] Mammography Report Signed Patient: Johanny Forbes MR#: [id number] : 1940 Acct:[id number] Age/Sex: 82 / F ADM Date: 05/15/22 Loc: [place] Room: Type: [facility] Attending Dr: Simin Lama MD Copies to: [...] Aguayo Jr., D.O.05/15/2022 2:50 PM Dictation Location: [facility] Transcribed By: GABRIEL 05/15/22 1450 Dictated By: Jaycob Aguayo Jr, DO 05/15/22 1445 Signed By: 05/15/22 1450 [facility] COVID/FLU RT-PCRon 2 SARS-CoV-2 (COVID-19) RNA NA A+probe Ql (Unsp spec) Negative [facility] Other COVID/FLU RT-PCR Negative [facility] Adore Me Other Hachimenroppi 02-13-2022 SENGN Telephone (DAGMAR) JOHANNY FORBES ([id number]) 1940 F Date Time Provider Department 02/13/22 SHIVA REYES During your visit today, we recorded the following information about you: Shiva eRyes RN 02/13/2022 2:30 PM Signed Pt called [...] Encounter Status:Closed by SHIVA REYES on 02/13/22 [facility] CNOVSPon 01-31-2022 CNOVSP Visit (SP) Office (H FAROOQ) JOHANNY FORBES ([id number]) 1940 F Date Time Provider Department 01/31/22 3:15 PM SIMIN LAMA During your visit today, we recorded the following information about you: Temperature Pulse Respiration Blood pressure 97.3 degrees 62/minute 16/minute 142/65 Weight Height 70 kg 1.589 m Simin Lama MD 01/31/2022 3:38 PM Signed PATIENT NAME: Johanny Forbes CLINIC NO.: [id number] ATTENDING PHYSICIAN: Simin Lama MD DATE OF [...] metastatic breast carcinoma, 5 cm, ER 0, GA 0, HER-2 0 by IHC. The tissue was not evaluated for flow cytometry to rule out a lymphoproliferative process. 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 Differential included mammary, skin, urothelial, pancreaticobiliary and pulmonary primaries. ER 0, GA 0, HER-2 negative by CAMERON. 2021 PET [...] Rectal: Deferred (more content not included)... Normal [facility] CNPNon 01-31-2022 CNPN Telephone (NCCAP) JOHANNY FORBES ([id number]) 1940 F Date Time Provider Department 01/31/22 SIMIN LAMA During your visit today, we recorded the following information about you: Honey Almeida 01/31/2022 4:[address] Lama, patient had a previous abnormal L Mammogram and never followed up. He would like L Mammogram completed now. Faxed order to [place] scheduling per patient's hospital request. Honey Almeida [...] Status:Closed by HONEY ALMEIDA on 02/01/22 Normal [facility] SENGKenia 01-30-2022 CNPN Telephone (HEMTSA) JOHANNY FORBES ([id number]) 1940 F Date Time Provider Department 01/30/22 [...] Fully Assessed Reason for Visit: Patient Question [6808] Prescriptions as of 01/30/2022 - aspirin 82 [...] Status:Closed by AMANDA HENDERSON on 01/30/22 Normal [facility] ALBUMIN, RANDOM URINE W/CREA Corrine 12-09-2021 ALBUMIN, URINE 1.7 mg/dL Normal See Note: [facility] Comment on above: Result Comment: Refe rence Range: Reference Range Not established Performed By: #### 7 18, 622, 496, 64556, 11515, 76219, 6399, 7600, 905, 6517 #### [facility] [address], [address] [place] [address] Manager Inspection: César Dunn MD ALBUMIN/CREATININE RATIO, RANDOM URINE [...] Performed By: #### 7 18, 622, 496, 14894, 66801, 16359, 6399, 7600, 905, 6517 #### [facility] [address], [address] [place] [address] Manager Inspection: César Dunn MD Creatinine (U) [Mass/Vol] 74 mg/dL Normal 20-275 [facility] Comment on above: Performed By: #### 7 18, 622, 496, 74363, 90975, 68437, 6399, 7600, 905, 6517 #### [facility] [address], [address] [place] [address] Manager Inspection: César Dunn MD CBC (INCLUDES DIFF/PLT)on Basophils (Bld) [#/Vol] 0.044 10*3/uL Normal 0-200 [facility] Comment on above: Performed By: #### 7 18, 622, 496, 08582, 09939, 34096, 6399, 7600, 905, 6517 #### [facility] of [address], [address] [place] [address] Manager Inspection: César Dunn MD Basophils/100 WBC (Bld) 0.5 % Normal [facility] Comment on above: Performed By: #### 7 18, 622, 496, 76966, 20694, 07518, 6399, 7600, 905, 6517 #### [facility] of [place] [address] Manager Inspection: César Dunn MD Eosinophils (Bld) [#/Vol] 0.29 10*3/uL Normal 15-500 [facility] Comment on above: Performed By: #### 7 18, 622, 496, 55721, 95175, 73676, 6399, 7600, 905, 6517 #### [facility] of [place] [address] Manager Inspection: César Dunn MD Eosinophils/100 WBC (Bld) 3.3 % Normal [facility] Comment on above: Performed By: #### 7 18, 622, 496, 94697, 13542, 61279, 6399, 7600, 905, 6517 #### [facility] of [place] [address] Manager Inspection: César Dunn MD Erythrocyte distribution wid th (RBC) [Ratio] 12.6 % Normal 11.0-15.0 [facility] Comment on above: Performed By: #### 7 18, 622, 496, 96061, 82641, 35450, 6399, 7600, 905, 6517 #### [facility] of [place] [address] Manager Inspection: César Dunn MD Hematocrit (Bld) [Volume fraction] 36.3 % Normal 3 5.0-45.0 [facility] Comment on above: Performed By: #### 7 18, 622, 496, 68948, 18350, 48250, 6399, 7600, 905, 6517 #### [facility] of [place] [address] Manager Inspection: César Dunn MD Hemoglobin (Bld) [Mass/Vol] 12.4 g/dL Normal 11.7-15. 5 [facility] Comment on above: Performed By: #### 7 18, 622, 496, 70974, 22877, 45997, 6399, 7600, 905, 6517 #### [facility] [place] [address] Manager Inspection: César Dunn MD Lymphocytes (Bld) [#/Vol] 3.08 10*3/uL Normal 850-3900 [facility] Comment on above: Performed By: #### 7 18, 622, 496, 98275, 21943, 81518, 6399, 7600, 905, 6517 #### [facility] [place] [address] Manager Inspection: César Dunn MD Lymphocytes/100 WBC (Bld) 35.0 % Normal [facility] Comment on above: Performed By: #### 7 18, 622, 496, 86321, 61852, 06020, 6399, 7600, 905, 6517 #### [facility] of [place] [address] Manager Inspection: César Dunn MD MCH (RBC) [Entitic mass] 30.7 pg Normal 27.0-33.0 [facility] Comment on above: Performed By: #### 7 18, 622, 496, 21530, 09016, 10381, 6399, 7600, 905, 6517 #### [facility] [place] [address] Manager Inspection: César Dunn MD MCHC (RBC) [Mass/Vol] 34.2 g/dL Normal 32.0-36.[address] [facility] Comment on above: Performed By: #### 7 18, 622, 496, 13137, 01042, 58447, 6399, 7600, 905, 6517 #### [facility] [place] [address] Manager Inspection: César Dunn MD MCV (RBC) [Entitic vol] 89.9 fL Normal 80.0-100.0 [facility] Comment on above: Performed By: #### 7 18, 622, 496, 01957, 60589, 19759, 6399, 7600, 905, 6517 #### [facility] [place] [address] Manager Inspection: César Dunn MD Monocytes (Bld) [#/Vol] 0.37 10*3/uL Normal 200-950 [facility] Comment on above: Performed By: #### 7 18, 622, 496, 08163, 00674, 30898, 6399, 7600, 905, 6517 #### [facility] [place] [address] Manager Inspection: César Dunn MD Monocytes/100 WBC (Bld) 4.2 % Normal [facility] Comment on above: Performed By: #### 7 18, 622, 496, 28327, 81171, 81436, 6399, 7600, 905, 6517 #### [facility] [place] [address] Manager Inspection: César Dunn MD Neutrophils (Bld) [#/Vol] 5.016 10*3/uL Normal 1500-78 00 [facility] Comment on above: Performed By: #### 7 18, 622, 496, 16839, 04162, 53622, 6399, 7600, 905, 6517 #### [facility] [place] [address] Manager Inspection: César Dunn MD Neutrophils/100 WBC (Bld) 57 % Normal [facility] Comment on above: Performed By: #### 7 18, 622, 496, 57014, 75662, 00568, 6399, 7600, 905, 6517 #### [facility] of [address], [address] [place] [address] Manager Inspection: César Dunn MD Platelet mean volume (Bld) [Entitic vol] 10.6 fL Normal 7.5-12.5 [facility] Comment on above: Performed By: #### 7 18, 622, 496, 95622, 35612, 53766, 6399, 7600, 905, 6517 #### [facility] of [address], [address] [place] [address] Manager Inspection: César Dunn MD Platelets (Bld) [#/Vol] 278 10*3/uL Normal 140-400 [facility] Comment on above: Performed By: #### 7 18, 622, 496, 90076, 48531, 05599, 6399, 7600, 905, 6517 #### [facility] of [address], [address] [place] [address] Manager Inspection: César Dunn MD RBC (Bld) [#/Vol] 4.04 10*6/uL Normal 3.80-5.10 [facility] Comment on above: Performed By: #### 7 18, 622, 496, 34297, 58157, 58127, 6399, 7600, 905, 6517 #### [facility] of [address], [address] [place] [address] Manager Inspection: César Dunn MD WBC (Bld) [#/Vol] 8.8 10*3/uL Normal 3.8-10.8 [facility] Comment on above: Performed By: #### 7 18, 622, 496, 06435, 64565, 81825, 6399, 7600, 905, 6517 #### [facility] of [address], [address] [place] [address] Manager Inspection: César Dunn MD COMPREHENSIVE METABOLIC PANE Luis 08-26-2022 Albumin [Mass/Vol] 4.3 g/dL Normal 3.6-5.1 [facility] Comment on above: Performed By: #### 7 18, 622, 496, 61039, 79863, 64108, 6399, 7600, 905, 6517 #### [facility] [place] [address] Manager Inspection: César Dunn MD Albumin/Globulin [Mass ratio] 1.4 {ratio} Normal 1.0-2 .5 [facility] Comment on above: Performed By: #### 7 18, 622, 496, 58010, 45833, 57835, 6399, 7600, 905, 6517 #### [facility] [place] [address] Manager Inspection: César Dunn MD ALP [Catalytic activity/Vol] 66 U/L Normal 37-153 [facility] Comment on above: Performed By: #### 7 18, 622, 496, 59837, 84881, 24562, 6399, 7600, 905, 6517 #### [facility] [place] [address] Manager Inspection: César Dunn MD ALT [Catalytic activity/Vol] 8 U/L Normal 6-29 [facility] Comment on above: Performed By: #### 7 18, 622, 496, 07678, 86122, 30790, 6399, 7600, 905, 6517 #### [facility] [place] [address] Manager Inspection: César Dunn MD AST [Catalytic activity/Vol] 16 U/L Normal 10-35 [facility] Comment on above: Performed By: #### 7 18, 622, 496, 53953, 04029, 10508, 6399, 7600, 905, 6517 #### [facility] [place] [address] Manager Inspection: César Dunn MD Bilirubin [Mass/Vol] 0.6 mg/dL Normal 0.2-1.2 [facility] Comment on above: Performed By: #### 7 18, 622, 496, 11879, 70685, 88809, 6399, 7600, 905, 6517 #### [facility] of [address], [address] [place] [address] Manager Inspection: César Dunn MD Calcium [Mass/Vol] 9.6 mg/dL Normal 8.6-10.4 [facility] Comment on above: Performed By: #### 7 18, 622, 496, 01021, 58938, 97149, 6399, 7600, 905, 6517 #### [facility] [place] [address] Manager Inspection: César Dunn MD Chloride [Moles/Vol] 108 mmol/L Normal 98-110 [facility] Comment on above: Performed By: #### 7 18, 622, 496, 32652, 23225, 90044, 6399, 7600, 905, 6517 #### [facility] [place] [address] Manager Inspection: César Dunn MD CO2 [Moles/Vol] 25 mmol/L Normal 20-32 [facility] Comment on above: Performed By: #### 7 18, 622, 496, 40434, 52191, 72133, 6399, 7600, 905, 6517 #### [facility] [place] [address] Manager Inspection: César Dunn MD Creatinine [Mass/Vol] 1.37 mg/dL High 0.60-0.[address] [facility] Comment on above: Performed By: #### 7 18, 622, 496, 06748, 64280, 12628, 6399, 7600, 905, 6517 #### [facility] [place] [address] Manager Inspection: César Dunn MD GFR/1.73 sq M.predicted elizabeth g non-blacks MDRD (S/P/Bld) [Vol rate/Area] 39 mL/min/{1.73_m2} Low > OR = 60 [facility] Comment on above: Result Comment: The eGFR is based on the CKD-EPI 2020 equation. To calculate the new eGFR from a previous Creatinine or Cystatin C result, go to https://www.kidney.org/professionals/ kdoqi/gfr%5Fcalculator Performed By: #### 7 18, 622, 496, 61502, 52800, 88287, 6399, 7600, 905, 6517 #### [facility] [address], [address] [place] [address] Manager Inspection: César Dunn MD Globulin (S) [Mass/Vol] 3.1 g/dL Normal 1.9-3.7 [facility] Comment on above: Performed By: #### 7 18, 622, 496, 25064, 67778, 08614, 6399, 7600, 905, 6517 #### [facility] [address], [address] [place] [address] Manager Inspection: César Dunn MD Glucose [Mass/Vol] 121 mg/dL High 65-99 [facility] Comment on above: Result Comment: Fasting reference interval For someone without known diabetes, a glucose value between 100 and 125 mg/dL is consistent with prediabetes and should be confirmed with a follow-up test. Performed By: #### 7 18, 622, 496, 85046, 41155, 59215, 6399, 7600, 905, 6517 #### [facility] [address], [address] [place], [place] [address] Manager Inspection: César Dunn MD Potassium [Moles/Vol] 4.6 mmol/L Normal 3.5-5.[address] [facility] Comment on above: Performed By: #### 7 18, 622, 496, 04470, 21915, 35088, 6399, 7600, 905, 6517 #### [facility] [address], [address] [place] [address] Manager Inspection: César Dunn MD Protein [Mass/Vol] 7.4 g/dL Normal 6.1-8.1 [facility] Comment on above: Performed By: #### 7 18, 622, 496, 62174, 61039, 96179, 6399, 7600, 905, 6517 #### [facility] [place] [address] Manager Inspection: César Dunn MD Sodium [Moles/Vol] 139 mmol/L Normal 135-146 [facility] Comment on above: Performed By: #### 7 18, 622, 496, 20393, 66062, 12985, 6399, 7600, 905, 6517 #### [facility] [place] [address] Manager Inspection: César Dunn MD Urea nitrogen [Mass/Vol] 22 mg/dL Normal 7-25 [facility] Comment on above: Performed By: #### 7 18, 622, 496, 13602, 89582, 67267, 6399, 7600, 905, 6517 #### [facility] [place] [address] Manager Inspection: César Dunn MD Urea nitrogen/Creatinine [Mass ratio] 16 mg/mg Normal 6-22 [facility] Comment on above: Performed By: #### 7 18, 622, 496, 44326, 01101, 87743, 6399, 7600, 905, 6517 #### [facility] [place] [address] Manager Inspection: César Dunn MD HEMOGLOBIN A1con 12-09-2021 HEMOGLOBIN [...] Performed By: #### 7 18, 622, 496, 70119, 79755, 30576, 6399, 7600, 905, 6517 #### [facility] [address], [address] [place] [address] Manager Inspection: César Dunn MD LIPID PANEL, [place] [address]-2 Cholesterol [Mass/Vol] 260 mg/dL High <200 [facility] Comment on above: Order Comment: FASTI NG:YES FASTING: YES Performed By: #### 7 18, 622, 496, 38984, 76349, 12858, 6399, 7600, 905, 6517 #### [facility] [address], [address] [place], [place] [phone] Manager Inspection: César Dunn MD Cholesterol in HDL [Mass/Vol] 38 mg/dL Low > OR = 50 [facility] Comment on above: Order Comment: FASTI NG:YES FASTING: YES Performed By: #### 7 18, 622, 496, 29004, 48834, 34626, 6399, 7600, 905, 6517 #### [facility] [address], [address] [place] [address] Manager Inspection: César Dunn MD Cholesterol in LDL [Mass/Vol] [...] LDL-C. Tim HUMPHRIES et al. GENA. 2013;310(19): 6352-0157 (http://education.Stio.Happy Cosas/faq/WGS582) Performed By: #### 7 18, 622, 496, 81549, 07520, 54864, 6399, 7600, 905, 6517 #### [facility] [address], [address] [place] [address] Manager Inspection: César Dunn MD Cholesterol.total/Cholestero l in HDL [Mass ratio] 6.8 {ratio} High <5.0 [facility] Comment on above: Order Comment: FASTI NG:YES FASTING: YES Performed By: #### 7 18, 622, 496, 13720, 79015, 79815, 6399, 7600, 905, 6517 #### [facility] [address], [address] [place] [address] Manager Inspection: César Dunn MD NON HDL CHOLESTEROL 222 [...] Performed By: #### 7 18, 622, 496, 27696, 34280, 89648, 6399, 7600, 905, 6517 #### [facility] [address], [address] [place] [address] Manager Inspection: César Dunn MD Triglyceride [Mass/Vol] 162 mg/dL High <150 [facility] Comment on above: Order Comment: FASTI NG:YES FASTING: YES Performed By: #### 7 18, 622, 496, 19950, 89953, 14587, 6399, 7600, 905, 6517 #### [facility] [address], [address] [place] [address] Manager Inspection: César Dunn MD MAGNESIUMon 12-09-2021 Magnesium [Mass/Vol] 2.1 mg/dL Normal 1.5-2.5 [facility] Comment on above: Performed By: #### 7 18, 622, 496, 27532, 59707, 54425, 6399, 7600, 905, 6517 #### [facility] [place] [address] Manager Inspection: César Dunn MD PHOSPHATE ( PHOSPHORUS)on 12-09-2021 Phosphate [Mass/Vol] 3.6 mg/dL Normal 2.1-4.3 [facility] Comment on above: Performed By: #### 7 18, 622, 496, 75393, 73771, 69974, 6399, 7600, 905, 6517 #### [facility] [place] [address] Manager Inspection: César Dunn MD PTH, INTACT WITHOUT CALCIUMo [...] Performed By: #### 7 18, 622, 496, 70261, 56033, 05952, 6399, 7600, 905, 6517 #### [facility] [place] [address] Manager Inspection: César Dunn MD URIC ACIDon 12-09-2021 Urate [Mass/Vol] 5.1 mg/dL Normal 2.5-7.0 [facility] Comment on above: Result Comment: Ther apeutic target for gout patients: <6.0 mg/dL Performed By: #### 7 18, 622, 496, 52849, 39629, 26568, 6399, 7600, 905, 6517 #### [facility] [address], [address] [place] [phone] Manager Inspection: César Dunn MD VITAMIN D,25-OH,TOTAL,IAon 0 12-09-2021 [...] D, (D2,D3), LC/MS/MS is recommended: order code [id number] (patients >2yrs). See Note 1 Note 1 For additional information, please refer to http://education.Atmail/faq/HYO285 (This link is being provided for informational/ educational purposes only.) Performed By: #### 7 18, 622, 496, 12475, 11548, 91385, 6399, 7600, 905, 6517 #### [facility] [address] , [address] [place] [phone] Manager Inspection: César Dunn MD CNCOon 11-07-2021 CNCO Letter Text Normal [employer] [employer] CBC W Auto Differential pane l (Bld)on 07-28-2021 Basophils (Bld) [#/Vol] 0.03 10*3/uL Normal <0.11 [facility] Comment on above: Order Comment: Speci men Type: BLOOD SPECIMENOrdering Facility: [facility] Address: [address] [id number] Performed By: #### 5 7021-8 ####[facility] LABCLIA [id number] [place] [address] Basophils/100 WBC (Bld) 0.4 % Normal C [facility] Comment on above: Order Comment: Speci men Type: BLOOD SPECIMENOrdering Facility: [facility] Address: [address] Performed By: #### 5 7021-8 ####[facility] LABCLIA [id number] [place] [address] Differential cell count method Nom (Bld) Auto Normal [facility] Comment on above: Order Comment: Speci men Type: BLOOD SPECIMENOrdering Facility: [facility] Address: [address] [place] [address] Performed By: #### 5 7021-8 ####[facility] LABCLIA [id number] [place] [address] Eosinophils (Bld) [#/Vol] 0.29 10*3/uL Normal <0.46 [facility] Comment on above: Order Comment: Speci men Type: BLOOD SPECIMENOrdering Facility: [facility] Address: [address] [place] [address] Performed By: #### 5 7021-8 ####[facility] LABCLIA [id number] [place] [address] Eosinophils/100 WBC (Bld) 3.7 % Normal [facility] Comment on above: Order Comment: Speci men Type: BLOOD SPECIMENOrdering Facility: [facility] Address: [address] [place] [address] Performed By: #### 5 7021-8 ####[facility] LABCLIA [id number] [place] [address] Erythrocyte distribution wid th (RBC) [Ratio] 13.2 % Normal 11.5-15.0 [facility] Comment on above: Order Comment: Speci men Type: BLOOD SPECIMENOrdering Facility: [facility] Address: [address] [place] [address] Performed By: #### 5 7021-8 ####[facility] LABCLIA [id number] [place] [address] Hematocrit (Bld) [Volume fraction] 37.6 % Normal 3 6.0-46.0 [facility] Comment on above: Order Comment: Speci men Type: BLOOD SPECIMENOrdering Facility: [facility] Address: [address] [place] [address] Performed By: #### 5 7021-8 ####[facility] LABCLIA [id number] [place] [address] Hemoglobin (Bld) [Mass/Vol] 12.1 g/dL Normal 11.5-15. 5 [facility] Comment on above: Order Comment: Speci men Type: BLOOD SPECIMENOrdering Facility: [facility] Address: [address] [place] [address] Performed By: #### 5 7021-8 ####[facility] LABCLIA [id number] [place] [address] IMMATURE GRAN % 0.3 % Normal [facility] Comment on above: Order Comment: Speci men Type: BLOOD SPECIMENOrdering Facility: [facility] Address: [address] [place] [address] Performed By: #### 5 7021-8 ####[facility] LABCLIA [id number] [place] [address] IMMATURE GRAN ABS <0.03 Normal <0.10 [facility] Comment on above: Order Comment: Speci men Type: BLOOD SPECIMENOrdering Facility: [facility] Address: [address] [place] [address] Performed By: #### 5 7021-8 ####[facility] LABCLIA [id number] [place] [address] Lymphocytes (Bld) [#/Vol] 3.28 10*3/uL Normal 1.00-4.0 0 [facility] Comment on above: Order Comment: Speci men Type: BLOOD SPECIMENOrdering Facility: [facility] Address: [address] [place] [address] Performed By: #### 5 7021-8 ####[facility] LABCLIA [id number] [place] [address] Lymphocytes/100 WBC (Bld) 41.8 % Normal [facility] Comment on above: Order Comment: Speci men Type: BLOOD SPECIMENOrdering Facility: [facility] Address: [address] [place] [address] Performed By: #### 5 7021-8 ####[facility] LABCLIA [id number] [place] [address] MCH (RBC) [Entitic mass] 30.0 pg Normal 26.0-34.0 [facility] Comment on above: Order Comment: Speci men Type: BLOOD SPECIMENOrdering Facility: [facility] Address: [address] [place] [address] Performed By: #### 5 7021-8 ####[facility] LABCLIA [id number] [place] [address] MCHC (RBC) [Mass/Vol] 32.2 g/dL Normal 30.5-36.0 [facility] Comment on above: Order Comment: Speci men Type: BLOOD SPECIMENOrdering Facility: [facility] Address: [address] [place] [address] Performed By: #### 5 7021-8 ####[facility] LABCLIA [id number] [place] [address] MCV (RBC) [Entitic vol] 93.3 fL Normal 80.0-100.0 [facility] Comment on above: Order Comment: Speci men Type: BLOOD SPECIMENOrdering Facility: [facility] Address: [address] [place] [address] Performed By: #### 5 7021-8 ####[facility] LABCLIA [id number] [place] [address] Monocytes (Bld) [#/Vol] 0.46 10*3/uL Normal <0.87 [facility] Comment on above: Order Comment: Speci men Type: BLOOD SPECIMENOrdering Facility: [facility] Address: [address] [place] [address] Performed By: #### 5 7021-8 ####[facility] LABCLIA [id number] [place] [address] Monocytes/100 WBC (Bld) 5.9 % Normal [facility] Comment on above: Order Comment: Speci men Type: BLOOD SPECIMENOrdering Facility: [facility] Address: [address] [place] [address] Performed By: #### 5 7021-8 ####[facility] LABCLIA [id number] [place] [address] Neutrophils (Bld) [#/Vol] 3.77 10*3/uL Normal 1.45-7.5 0 [facility] Comment on above: Order Comment: Speci men Type: BLOOD SPECIMENOrdering Facility: [facility] Address: [address] [place] [address] Performed By: #### 5 7021-8 ####[facility] LABCLIA [id number] [place] [address] Neutrophils/100 WBC (Bld) 47.9 % Normal [facility] Comment on above: Order Comment: Speci men Type: BLOOD SPECIMENOrdering Facility: [facility] Address: [address] [place] [address] Performed By: #### 5 7021-8 ####[facility] LABCLIA [id number] [place] [address] Nucleated RBC (Bld) [#/Vol] 10*3/uL Normal <0.01 [facility] Comment on above: Order Comment: Speci men Type: BLOOD SPECIMENOrdering Facility: [facility] Address: [address] [place] [address] Performed By: #### 5 7021-8 ####[facility] LABCLIA [id number] [place] [address] Nucleated RBC/100 WBC (Bld) [Ratio] 0.0 /100 WBC Normal [facility] Comment on above: Order Comment: Speci men Type: BLOOD SPECIMENOrdering Facility: [facility] Address: [address] [place] [address] Performed By: #### 5 7021-8 ####[facility] LABCLIA [id number] [place] [address] Platelet mean volume (Bld) [Entitic vol] 10.6 fL Normal 9.0-12.7 [facility] Comment on above: Order Comment: Speci men Type: BLOOD SPECIMENOrdering Facility: [facility] Address: [address] [place] [address] Performed By: #### 5 7021-8 ####[facility] LABCLIA [id number] [place] [address] Platelets (Bld) [#/Vol] 259 10*3/uL Normal 150-400 [facility] Comment on above: Order Comment: Speci men Type: BLOOD SPECIMENOrdering Facility: [facility] Address: [address] [place] [address] Performed By: #### 5 7021-8 ####[facility] LABCLIA [id number] [place] [address] RBC (Bld) [#/Vol] 4.03 10*6/uL Normal 3.90-5.20 [facility] Comment on above: Order Comment: Speci men Type: BLOOD SPECIMENOrdering Facility: [facility] Address: [address] [place] [address] Performed By: #### 5 7021-8 ####[facility] LABCLIA [id number] [place] [address] WBC (Bld) [#/Vol] 7.85 10*3/uL Normal 3.70-11.00 [facility] Comment on above: Order Comment: Speci men Type: BLOOD SPECIMENOrdering Facility: [facility] Address: [address] [place] [address] Performed By: #### 5 7021-8 ####[facility] LABCLIA [id number] [place] [address] Abs Immature Gran <0.03 <0.10 k/uL [facility] Basophils (Bld) [#/Vol] 0.03 10*3/uL <0.11 k/uL [facility] Basophils/100 WBC (Bld) 0.4 % C [facility] Differential cell count meth od Nom (Bld) Auto [facility] Eosinophils (Bld) [#/Vol] 0.29 10*3/uL <0.46 k/ uL [facility] Eosinophils/100 WBC (Bld) 3.7 % [facility] Erythrocyte distribution wid th (RBC) [Ratio] 13.2 % 11.5 - 15.0 % [facility] Hematocrit (Bld) [Volume fraction] 37.6 % 3 6.0 - 46.0 % [facility] Hemoglobin (Bld) [Mass/Vol] 12.1 g/dL 11.5 - 1 5.5 g/dL [facility] Immature Gran % 0.3 % [facility] Lymphocytes (Bld) [#/Vol] 3.28 10*3/uL 1.00 - 4 .00 k/uL [facility] Lymphocytes/100 WBC (Bld) 41.8 % [facility] MCH (RBC) [Entitic mass] 30.0 pg 26.0 - 34.0 pg [facility] MCHC (RBC) [Mass/Vol] 32.2 g/dL 30.5 - 36.0 g/ dL [facility] MCV (RBC) [Entitic vol] 93.3 fL 80.0 - 100.0 fL [facility] Monocytes (Bld) [#/Vol] 0.46 10*3/uL <0.87 k/uL [facility] Monocytes/100 WBC (Bld) 5.9 % C [facility] Neutrophils (Bld) [#/Vol] 3.77 10*3/uL 1.45 - 7 .50 k/uL [facility] Neutrophils/100 WBC (Bld) 47.9 % [facility] Nucleated RBC (Bld) [#/Vol] 10*3/uL <0.01 k/ uL [facility] Nucleated RBC/100 WBC (Bld) [Ratio] 0.0 /100 WBC [facility] Platelet mean volume (Bld) [ Entitic vol] 10.6 fL 9.0 - 12.7 fL [facility] Platelets (Bld) [#/Vol] 259 10*3/uL 150 - 400 k /uL [facility] RBC (Bld) [#/Vol] 4.03 10*6/uL 3.90 - 5.20 m/uL [facility] WBC (Bld) [#/Vol] 7.85 10*3/uL 3.70 - 11.00 k/u L [facility] CNOVSPon 07-28-2021 CNOVSP Visit (SP) Office ( [facility]) JOHANNY FORBES ([id number]) 1940 F Date Time Provider Department 07/28/21 [...] metastatic breast carcinoma, 5 cm, ER 0, GA 0, HER-2 0 by IHC. The tissue was not evaluated for flow cytometry to rule out a lymphoproliferative process. 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 Differential included mammary, skin, urothelial, pancreaticobiliary and pulmonary primaries. ER 0, GA 0, HER-2 negative by CAMERON. ? 2021 [...] today. Fo (more content not included)... Normal [facility] Comprehensive metabolic 2000 panelon 07-28-2021 Albumin [Mass/Vol] 4.2 g/dL Normal 3.9-4.9 [facility] Comment on above: Order Comment: Speci men Type: BLOOD SPECIMENOrdering Facility: [facility] Address: [address] [place] [address] Performed By: #### 2 4323-8 ####[facility] LABCLIA [id number] [place] [address] ALP [Catalytic activity/Vol] 72 U/L Normal 34-123 [facility] Comment on above: Order Comment: Speci men Type: BLOOD SPECIMENOrdering Facility: [facility] Address: [address] [address] Performed By: #### 2 4323-8 ####[facility] LABCLIA [id number] [place] [address] ALT [Catalytic activity/Vol] 7 U/L Normal 7-38 [facility] Comment on above: Order Comment: Speci men Type: BLOOD SPECIMENOrdering Facility: [facility] Address: [address] Performed By: #### 2 4323-8 ####[facility] LABCLIA [id number] [place] [address] Anion gap [Moles/Vol] 7 mmol/L Low 9-18 [facility] Comment on above: Order Comment: Speci men Type: BLOOD SPECIMENOrdering Facility: [facility] Address: [address] [place] [address] Performed By: #### 2 4323-8 ####[facility] LABCLIA [id number] [place] [address] AST [Catalytic activity/Vol] 17 U/L Normal 13-35 [facility] Comment on above: Order Comment: Speci men Type: BLOOD SPECIMENOrdering Facility: [facility] Address: [address] [place] [address] Performed By: #### 2 4323-8 ####[facility] LABCLIA [id number] [place] [address] Bilirubin [Mass/Vol] 0.4 mg/dL Normal 0.2-1.3 [facility] Comment on above: Order Comment: Speci men Type: BLOOD SPECIMENOrdering Facility: [facility] Address: [address] Performed By: #### 2 4323-8 ####[facility] LABCLIA [id number] [place] [address] Calcium [Mass/Vol] 9.8 mg/dL Normal 8.5-10.2 [facility] Comment on above: Order Comment: Speci men Type: BLOOD SPECIMENOrdering Facility: [facility] Address: [address] [place], [place] [address] Performed By: #### 2 4323-8 ####[facility] LABCLIA [id number] [place] [address] Chloride [Moles/Vol] 105 mmol/L Normal 97-105 [facility] Comment on above: Order Comment: Speci men Type: BLOOD SPECIMENOrdering Facility: [facility] Address: [address] [place] [address] Performed By: #### 2 4323-8 ####[facility] LABCLIA [id number] [place] [address] CO2 [Moles/Vol] 26 mmol/L Normal 22-30 [facility] Comment on above: Order Comment: Speci men Type: BLOOD SPECIMENOrdering Facility: [facility] Address: [address] [place] [address] Performed By: #### 2 4323-8 ####[facility] LABCLIA [id number] [place] [address] Creatinine [Mass/Vol] 1.31 mg/dL High 0.58-0.96 [facility] Comment on above: Order Comment: Speci men Type: BLOOD SPECIMENOrdering Facility: [facility] Address: [address] [place] [address] Performed By: #### 2 4323-8 ####[facility] LABCLIA [id number] [place] [address] ESTIMATED GLOMERULAR FILTRATION RATE 41 mL/min/1.73m??? Low >=60 [facility] Comment on above: Order Comment: Speci men Type: BLOOD SPECIMENOrdering Facility: [facility] Address: [address] [place] [address] Result Comment: Nereyda mated Glomerular Filtration Rate [...] actual GFR. Performed By: #### 2 4323-8 ####[facility] LABIA [id number] [place] [address] Glucose [Mass/Vol] 129 mg/dL High 74-99 [facility] Comment on above: Order Comment: Speci men Type: BLOOD SPECIMENOrdering Facility: [facility] Address: [address] [place] [address] Result Comment: The [place] Diabetes Association (ADA) provides guidance for cutoff [...] Standards of Medical Care in Diabetes 2016, [place] [employer]. Diabetes Care. 2016.39(Suppl 1). Performed By: #### 2 4323-8 ####[facility] LABIA [id number] [place] [address] Potassium [Moles/Vol] 4.6 mmol/L Normal 3.7-5.1 [facility] Comment on above: Order Comment: Speci men Type: BLOOD SPECIMENOrdering Facility: [facility] Address: [address] [id number] Performed By: #### 2 4323-8 ####[facility] LABIA [id number] [place] [address] Protein [Mass/Vol] 7.5 g/dL Normal 6.3-8.0 [facility] Comment on above: Order Comment: Speci men Type: BLOOD SPECIMENOrdering Facility: [facility] Address: [address] [place] [address] Performed By: #### 2 4323-8 ####[facility] LABCLIA [id number] [place] [address] Sodium [Moles/Vol] 138 mmol/L Normal 136-144 [facility] Comment on above: Order Comment: Speci men Type: BLOOD SPECIMENOrdering Facility: [facility] Address: [address] [place] [address] Performed By: #### 2 4323-8 ####[facility] LABCLIA [id number] [place] [address] Urea nitrogen [Mass/Vol] 22 mg/dL High 7-21 [facility] Comment on above: Order Comment: Speci men Type: BLOOD SPECIMENOrdering Facility: [facility] Address: [address] [place] [address] Performed By: #### 2 4323-8 ####[facility] LABCLIA [id number] [place] [address] FLOW CYTOMETRY REFLEXon 04-1 CASE REPORT Normal [facility] Comment on above: Order Comment: Speci men Type: BLOOD SPECIMENOrdering Facility: [facility] Address: [address] [place] [address] Result Comment: Flow Cytometry Case: [id number] Authorizing Provider: Drake Anand MD Collected: 07/28/2021 02:03 PM Ordering Location: Laboratory Medicine Received: 07/29/2021 12:43 PM Pathologist: Tang Oquendo MD Specimen: BLOOD Performed By: #### F LOWREFLEX ####[facility] LABCLIA [id number] [place] [address] [place] GROSS DESCRIPTION A. BLOOD. Normal [facility] Comment on above: Order Comment: Speci men Type: BLOOD SPECIMENOrdering Facility: [facility] Address: [address] [place] [address] Result Comment: Rece ived 4ml of peripheral blood in EDTA. Performed By: #### F LOWREFLEX ####[facility] LABCLIA [id number] [address] [place] INTERPRETATION Normal [facility] Comment on above: Order Comment: Speci men Type: BLOOD SPECIMENOrdering Facility: [facility] Address: [address] [place], [place] [address] Result Comment: Spec imen type: BLOOD CBC [...] Negative CD200 B-cells Positive FMC7 B-cells Positive [place]/Lambda B-cells Monotypic kappa Flow cytometric analysis of [...] developed and its performance characteristics determined by [facility]???s Vignesh Moraima [facility] Pathology and Laboratory Medicine Todd ([facility]). It has not been cleared or approved by the FDA. [facility] is regulated under CLIA as qualified to perform high- complexity testing. This test is used for clinical purposes. It should not be regarded as investigational or for research. KST/BB 07/29/21 Diagnostic interpretation performed at [facility], [address] [place] [address] CLIA# [id number] Knitter Operator: Bharath Light M.D. Performed By: #### F LOWREFLEX ####[facility] LABCLIA [id number] [address] OF [facility] PERIPHERAL BLOOD LOW GRADE L EUK MARKERS FCon 07-28-2021 FLOW CYTOMETRY ORDER STATUS See Results in chart under F case ID Normal [facility] agb Comment on above: Order Comment: Speci men Type: BLOOD SPECIMENOrdering Facility: [facility] Address: [address] [place] [address] Performed By: #### P BLGLY ####[facility] LABCLIA [id number] [address] [place] CNPNon 07-22-2021 CNPN Telephone (HEMASA) JOHANNY FORBES ([id number]) 1940 F Date Time Provider Department 07/22/21 [...] discuss further. She can be reached at [phone]. ROSA ELENA Esteban MD 07/22/2021 2:38 PM [...] Fully Assessed Reason for Visit: Patient Question [5451] Prescriptions as of 07/22/2021 - aspirin 81 [...] Status:Closed by RU BLACKMAN on 07/22/21 Normal [facility] Aniket 07-01-2021 CNPN Telephone (HEMASA) JOHANNY FORBES ([id number]) 1940 F Date Time Provider Department 07/01/21 RU BLACKMAN During your visit today, we recorded the following information about you: Ru Blackman RN 07/01/2021 2:07 PM Signed Received call from pt wanting to know if Dr Anand got her results for the genetic testing on her tumor? SJK: Any message for pt? Or she can be reached at [phone]. ROSA ELENA Esteban MD 07/01/2021 2:49 PM [...] Status:Closed by RU BLACKMAN on 07/04/21 Normal [facility] MG MAMM DIAGNOSTIC 3D COY CA Don 05-03-2021 MG MAMM DIAGNOSTIC 3D COY CAD Patient: JOHANNY FORBES Exam Date: 05/03/2021 : 1940 Gender:F Ordering : DRAKE ANAND Admission #: [id number] Family : DR JORGE LUIS SIMON Order #: [id number] CLICK HERE TO VIEW EXAM RADIOLOGY REPORT PROCEDURE: MAMMOGRAM DIAGNOSTIC 3D BILATERAL CAD COMPARISON: MAMMO SCREEN DIG COY, 01/22/2012. INDICATIONS: Secondary malignant neoplasm of axilla Calculator Name NCI Breast Cancer Risk Assessment Tool 5 Year Breast Cancer Risk n/a% Lifetime Breast Cancer Risk n/a% Personal Breast Cancer Yes Personal Ovarian Cancer No Treatments None Family Cancers None LOCATION: [facility] BREAST COMPOSITION: Scattered areas fibroglandular density. [...] Galvan MD on 05/03/2021 at 14:29 Normal [facility] l POINT OF CARE GLUCOSEon 12-0 Glucose [Mass/Vol] 169 mg/dL Critically high 74-106 [facility] Comment on above: Performed By: #### P OCGLUC #### [facility] [address] [place] [address] Dr. Dontae Vallejo CBC AUTO DIFFon 03-14-2021 BASO # 0.1 103/ul Normal 0.0-0.1 [facility] Comment on above: Performed By: #### C BC #### [facility] [address] [place] [address] Dr. Dontae Vallejo Basophils/100 WBC (Bld) 0.6 % Normal 0.2-2.0 [facility] Comment on above: Performed By: #### C BC #### [facility] [address] [place] [address] Dr. Dontae Vallejo EO # 0.4 103/ul Normal 0.0-0.7 [facility] Comment on above: Performed By: #### C BC #### [facility] [address] [place] [address] Dr. Dontae Vallejo Eosinophils/100 WBC (Bld) 4.1 % Normal 0.9-7.0 [facility] Comment on above: Performed By: #### C BC #### [facility] [address] [place] [address] Dr. Dontae Vallejo Erythrocyte distribution wid th (RBC) [Ratio] 13.1 % Normal 11.0-15.0 [facility] Comment on above: Performed By: #### C BC #### [facility] [address] [place] [address] Dr. Dontae Vallejo Hematocrit (Bld) [Volume fraction] 37.1 % Normal 3 6.0-48.0 [facility] Comment on above: Performed By: #### C BC #### [facility] [address] [place] [address] Dr. Dontae Vallejo Hemoglobin (Bld) [Mass/Vol] 12.1 g/dL Normal 12.0-16. 0 [facility] Comment on above: Performed By: #### C BC #### [facility] [address] [place] [address] Dr. Dontae Vallejo IG # 0.03 10e3/ul Normal 0.00-0.03 [facility] Comment on above: Performed By: #### C BC #### [facility] [address] [place] [address] Dr. Dontae Vallejo IG % 0.3 % Normal 0.0-0.5 [facility] Comment on above: Performed By: #### C BC #### [facility] [address] [place] [address] Dr. Dontae Vallejo LYMPH # 4.5 103/ul Critically high 1.2-3.8 [facility] Comment on above: Performed By: #### C BC #### [facility] [address] [place] [address] Dr. Dontae Vallejo Lymphocytes/100 WBC (Bld) 44.8 % Normal 20.5-60.0 [facility] Comment on above: Performed By: #### C BC #### [facility] [address] [place] [address] Dr. Dontae Vallejo MANUAL DIFF REQ NO Normal [facility] Comment on above: Performed By: #### C BC #### [facility] [address] [place] [address] Dr. Dontae Vallejo MCH (RBC) [Entitic mass] 30.3 pg Normal 26.7-34.0 [facility] Comment on above: Performed By: #### C BC #### [facility] [address] [place] [address] Dr. Dontae Vallejo MCHC (RBC) [Mass/Vol] 32.6 g/dL Normal 29.9-35.2 [facility] Comment on above: Performed By: #### C BC #### [facility] [address] [place] [address] Dr. Dontae Vallejo MCV (RBC) [Entitic vol] 92.8 fL Normal 81.0-99.0 [facility] Comment on above: Performed By: #### C BC #### [facility] [address] [place] [address] Dr. Dontae Vallejo MONO # 0.5 103/ul Normal 0.3-0.8 [facility] Comment on above: Performed By: #### C BC #### [facility] [address] [address] [address] Dontae Vallejo Monocytes/100 WBC (Bld) 5.3 % Normal 1.7-12.0 [facility] Comment on above: Performed By: #### C BC #### [facility] [address] [address] [address] Dontae Vallejo NEUT # 4.5 103/ul Normal 1.4-6.5 [facility] Comment on above: Performed By: #### C BC #### [facility] [address] [place] [address] Dr. Dontae Vallejo Neutrophils/100 WBC (Bld) 44.9 % Normal 43.0-75.0 [facility] Comment on above: Performed By: #### C BC #### [facility] [address] [place] [address] Dr. Dontae Vallejo Platelet mean volume (Bld) [Entitic vol] 9.8 fL Normal 9.5-13.5 [facility] Comment on above: Performed By: #### C BC #### [facility] [address] [place] [address] Dr. Dontae Vallejo PLT 251 103/ul Normal 150-450 [facility] Comment on above: Performed By: #### C BC #### [facility] [address] [place] [address] Dr. Dontae Vallejo RBC 4.00 106/ul Critically low 4.20-5.40 [facility] Comment on above: Performed By: #### C BC #### [facility] [address] [place] [address] Dr. Dontae Vallejo WBC 10.1 103/ul Normal 4.0-11.0 [facility] Comment on above: Performed By: #### C BC #### [facility] [address] [place] [address] Dr. Dontae Vallejo [facility]on [facility]15 SARS-CoV-2 (COVID-19) RNA DEIDRE+probe Ql (Unsp spec) Not detected Normal NOT DETECTED [facility] Comment on above: Result Comment: This test is not yet approved or cleared by the [place] FDA. When there are no FDA-approved or cleared tests available, and other criteria are met, FDA can make tests available under an emergency access mechanism called an Emergency Use Authorization (EUA). The EUA for this test is supported by the [employer] Worker of Health and Human Service's (HHS's) declaration [...] SARS-CoV-2. Performed By: #### C VDTB #### [facility] [address] [place] [address] Dr. Dontae Vallejo PROF CHEM 8 (BAS METB)on Anion gap [Moles/Vol] 10.5 mmol/L Normal [facility] Comment on above: Performed By: #### B MP #### [facility] [address] [place] [address] Dr. Dontae Vallejo Calcium [Mass/Vol] 9.5 mg/dL Normal 8.4-10.2 [facility] Comment on above: Performed By: #### B MP #### [facility] [address] [place] [address] Dr. Dontae Vallejo Chloride [Moles/Vol] 104 mmol/L Normal 98-107 [facility] Comment on above: Performed By: #### B MP #### [facility] [address] [place] [address] Dr. Dontae Vallejo CO2 [Moles/Vol] 26.8 mmol/L Normal 22.0-30.0 [facility] Comment on above: Performed By: #### B MP #### [facility] [id number] Dontae Vallejo Creatinine [Mass/Vol] 1.51 mg/dL Critically high 0.52-1.04 [facility] Comment on above: Performed By: #### B MP #### [facility] [id number] Dontae Vallejo EGFR-AF [place]IZ[place] 40 mL/min/1.73m2 Critically low >=60 [facility] Comment on above: Performed By: #### B MP #### [facility] [address] [address] [address] Dontae Vallejo EGFR-NON AF CITIZEN OF [place] 33 mL/min/1.73m2 Critically low >=60 [facility] Comment on above: Performed By: #### B MP #### [facility] [address] [address] [address] Dontae Vallejo Glucose [Mass/Vol] 145 mg/dL Critically high 74-106 [facility] Comment on above: Performed By: #### B MP #### [facility] [address] [address] [address] Dontae Vallejo Potassium [Moles/Vol] 4.3 mmol/L Normal 3.4-5.0 [facility] Comment on above: Performed By: #### B MP #### [facility] [address] [address] [address] Dontae Vallejo Sodium [Moles/Vol] 137 mmol/L Normal 137-145 [facility] Comment on above: Performed By: #### B MP #### [facility] [id number] Dontae Vallejo Urea nitrogen [Mass/Vol] 29.0 mg/dL Critically high 7.0-17 .0 [facility] Comment on above: Performed By: #### B MP #### [facility] [id number] Dontae Vallejo Urea nitrogen/Creatinine [Mass ratio] 19.2 mg/mg Normal [facility] Comment on above: Performed By: #### B MP #### [facility] [address] [address] [address] Dontae Vallejo US FINE NDL ASP W US GDNCEon 02-07-2021 US FINE NDL ASP W US GDNCE Begin Addendum #1 COLLECTED DATE/TIME: 01/24/2021 14:27 EDT Final Diagnosis Report for [facility] [place], [place] (A/B) LEFT AXILLA MASS; FINE NEEDLE [...] 2. Pathology results are pending. Normal [facility] LEUKEMIA/LYMPHOMA PROFILEon 01-31-2021 ANALYSIS AND GATING STRATEGY Comment Normal [facility] Comment on above: Result Comment: 8 co geri analysis with 7-AAD, CD45/SSC gating Performed at: -Y Performed By: #### F LOWL #### [facility] [address] [place] [address] Dr. Dontae Vallejo ASSESSMENT OF LEUKOCYTES Comment Normal [facility] Comment on above: Result Comment: Ghulam a and lambda staining cannot be interpreted due to nonspecific light chain binding. A subset of T cells show CD10 expression. CD4:CD8 ratio 2.3 Analysis of the viable lymphoid cells shows: B cells 18%, T cells 82% Performed at: -Y Performed By: #### F LOWL #### [facility] [address] [address] [address] Dontae Vallejo COMMENT Comment Normal [facility] Comment on above: Result Comment: Each antibody in this assay was utilized to assess for potential abnormalities of studied cell populations or to characterize identified abnormalities. . This test was developed and its performance characteristics determined by [employer]. It has not been cleared or approved by the U.S. Food and Drug Administration. . The FDA has determined that such clearance or approval is not necessary. This test is used for clinical purposes. It should not be regarded as investigational or for research. Performed at: TG Performed By: #### F LOWL #### [facility] [address] [address] [address] Dontae Vallejo FLOW COMMENT Comment Normal [facility] Comment on above: Result Comment: Ghulam a [...] -Y Performed By: #### F LOWL #### [facility] [id number] Dontae Vallejo FLOW INTERPRETATION Comment Normal [facility] Comment on above: Result Comment: B ce ll clonality cannot be evaluated, T cells with CD10 expression in a small subset, low viability specimen, see comment. Performed at: -Y Performed By: #### F LOWL #### [facility] [id number] Donate Vallejo PHENOTYPE CHART Comment Normal [facility] Comment on above: Result Comment: CD2 Normal CD3 Normal CD4 Normal CD5 Normal CD7 Normal CD8 Normal CD10 See Text CD11b Normal CD19 Normal CD20 Normal CD23 Normal CD38 Normal CD45 Normal CD56 Normal CD57 Normal [facility]-7 Normal HLA-DR Normal KAPPA See Text LAMBDA See Text Performed at: -Y Performed By: #### F LOWL #### [facility] [address] [place] [address] Dr. Dontae Vallejo RESULTING PATH NAME Comment Normal [facility] [place] [facility] Comment on above: Result Comment: Raul Oliveros M.D. Performed at: -Y Performed By: #### F LOWL #### [facility] [address] [place] [address] Dr. Dontae Vallejo Specimen type Nom (Spec) Comment Normal [facility] Comment on above: Result Comment: Left axillary mass lymph node Performed at: -Y Performed By: #### F LOWL #### [facility] [address] [place] [address] Dr. Dontae Vallejo VIABILITY Comment Normal [facility] Comment on above: Result Comment: [...] -Y Performed By: #### F LOWL #### [facility] [address] [place] [address] Dr. Dontae Vallejo US EXT NON VASC [...] TENZIN GALVAN Date: 2021-01-07 16:37 Normal [facility] CBC AUTO DIFFon 11-02-2020 BASO # 0.1 103/ul Normal 0.0-0.1 [facility] Comment on above: Performed By: #### C BC #### [facility] [address], [place] [address] Jose Bambi Basophils/100 WBC (Bld) 0.6 % Normal 0.2-2.0 [facility] Comment on above: Performed By: #### C BC #### [facility] [address] [place], [place] [id number] Jose Bambi EO # 0.4 103/ul Normal 0.0-0.7 [facility] Comment on above: Performed By: #### C BC #### [facility] [address] [place], [place] [address] Jose Bambi Eosinophils/100 WBC (Bld) 3.7 % Normal 0.9-7.0 [facility] Comment on above: Performed By: #### C BC #### [facility] [address] [place], [place] [address] Jose Bambi Erythrocyte distribution wid th (RBC) [Ratio] 13.2 % Normal 11.0-15.0 [facility] Comment on above: Performed By: #### C BC #### [facility] [address] [place], [place] [address] Jose Bambi Hematocrit (Bld) [Volume fraction] 36.1 % Normal 3 6.0-48.0 [facility] Comment on above: Performed By: #### C BC #### [facility] [address] [place], [place] [address] Jose Bambi Hemoglobin (Bld) [Mass/Vol] 11.7 g/dL Critically low 12.0 -16.0 [facility] Comment on above: Performed By: #### C BC #### [facility] [address] [place], [place] [address] Jose Bambi IG # 0.03 10e3/ul Normal 0.00-0.03 [facility] Comment on above: Performed By: #### C BC #### [facility] [address] [place], [place] [address] Jose Bambi IG % 0.3 % Normal 0.0-0.5 [facility] Comment on above: Performed By: #### C BC #### [facility] [address] [id number] Jose Bambi LYMPH # 4.4 103/ul Critically high 1.2-3.8 [facility] Comment on above: Performed By: #### C BC #### [facility] [address] [id number] Jose Bambi Lymphocytes/100 WBC (Bld) 44.9 % Normal 20.5-60.0 [facility] Comment on above: Performed By: #### C BC #### [facility] [address] [place], [place] [address] Jose Bambi MANUAL DIFF REQ NO Normal [facility] Comment on above: Performed By: #### C BC #### [facility] [address] [place], [place] [address] Jose Bambi MCH (RBC) [Entitic mass] 30.5 pg Normal 26.7-34.0 [facility] Comment on above: Performed By: #### C BC #### [facility] [address] [place], [place] [address] Jose Bambi MCHC (RBC) [Mass/Vol] 32.4 g/dL Normal 29.9-35.2 [facility] Comment on above: Performed By: #### C BC #### [facility] [address] [place], [place] [address] Jose Bambi MCV (RBC) [Entitic vol] 94.0 fL Normal 81.0-99.0 [facility] Comment on above: Performed By: #### C BC #### [facility] [address] [place], [place] [address] Jose Bambi MONO # 0.6 103/ul Normal 0.3-0.8 [facility] Comment on above: Performed By: #### C BC #### [facility] [address] [place], [place] [address] Jose Bambi Monocytes/100 WBC (Bld) 5.7 % Normal 1.7-12.0 [facility] Comment on above: Performed By: #### C BC #### [facility] [address], [place] [address] Jose Bambi NEUT # 4.4 103/ul Normal 1.4-6.5 [facility] Comment on above: Performed By: #### C BC #### [facility] [address] [place] [address] Jose Millarden Neutrophils/100 WBC (Bld) 44.8 % Normal 43.0-75.0 [facility] Comment on above: Performed By: #### C BC #### [facility] [address] [place] [address] Josevlad Lacy Platelet mean volume (Bld) [ Entitic vol] 11.3 fL Normal 9.5-13.5 [facility] Comment on above: Performed By: #### C BC #### [facility] [address] [place] [address] Jose Bambi PLT 239 103/ul Normal 150-450 [facility] Comment on above: Performed By: #### C BC #### [facility] [address] [place] [id number] Jose Bambi RBC 3.84 106/ul Critically low 4.20-5.40 [facility] Comment on above: Performed By: #### C BC #### [facility] [address] [place] [address] Jose Bambi WBC 9.8 103/ul Normal 4.0-11.0 [facility] Comment on above: Performed By: #### C BC #### [facility] [address] [place] [address] Josevlad Lacy Vital Signs Date Time Vital Sign Value Performing Clinician Facility 03-12-2022 12:15-0500 Body height 160.02 cm Gabi Gaona Other [facility] Other 03-12-2022 12:15-0500 Body mass index (BMI) [Ratio] 26.57 kg/m2 Gabi Gaona Other [facility] Other 03-12-2022 12:15-0500 Body temperature 97.8 [degF] Gabi Candelaria Other [facility] Other 03-12-2022 12:15-0500 Body weight 68.04 kg Gabi Candelaria Other [facility] Other 03-12-2022 12:15-0500 Diastolic blood pressure 68 mm[Hg] Gabi Candelaria Other [facility] Other 03-12-2022 12:15-0500 Respiratory rate 18 /min Gabi Candelaria Other [facility] Other 03-12-2022 12:15-0500 SaO2% (BldA) [Mass fraction] 98 % Gabi Gaona Other [facility] Other 03-12-2022 12:15-0500 Systolic blood pressure 123 mm[Hg] Gabi Candelaria Other [facility] Other 01-31-2022 15:09-0400 Body height 158.9 cm Simin Lama MD Work Phone: [facility] 01-31-2022 15:09-0400 Body temperature 97.3 [degF] Simin Lama MD Work Phone: [facility] 01-31-2022 15:09-0400 Body weight 70.03 kg Simin Lama MD Work Phone: [facility] 01-31-2022 15:09-0400 Diastolic blood pressure 65 mm[Hg] Simin Lama MD Work Phone: [facility] 01-31-2022 15:09-0400 Heart rate 62 /min Simin Lama MD Work Phone: [facility] 01-31-2022 15:09-0400 Respiratory rate 16 /min Simin Lama MD Work Phone: [facility] 01-31-2022 15:09-0400 SaO2% (BldA) [Mass fraction] 100 % Simin Lama MD Work Phone: [facility] 01-31-2022 15:09-0400 Systolic blood pressure 142 mm[Hg] Simin Lama MD Work Phone: [facility] 07-28-2021 14:24-0400 Body height 158.9 cm Drake Anand MD Work Phone: [facility] 07-28-2021 14:24-0400 Body temperature 97.9 [degF] Drake Anand MD Work Phone: [facility] 07-28-2021 14:24-0400 Body weight 69.94 kg Drake Anand MD Work Phone: [facility] 07-28-2021 14:24-0400 Diastolic blood pressure 74 mm[Hg] Drake Anand MD Work Phone: [facility] 07-28-2021 14:24-0400 Heart rate 56 /min Drake Anand MD Work Phone: [facility] 07-28-2021 14:24-0400 Respiratory rate 18 /min Drake Anand MD Work Phone: [facility] 07-28-2021 14:24-0400 SaO2% (BldA) [Mass fraction] 98 % Drake Anand MD Work Phone: [facility] 07-28-2021 14:24-0400 Systolic blood pressure 150 mm[Hg] Drake Anand MD Work Phone: [facility] Encounters Encounter Date Encounter Type Care Provider Facility Start: 03-16-2023 End: 03-16-2023 ambulatory MAGALI HUIZAR Not Available Start: 05-15-2022 End: 05-15-2022 ambulatory Simin Freemanyarelylou Facility:[facility] Start: 05-15-2022 Telephone encounter Simin stanford MD Work Phone: [facility] Comment on above: Orders Start: 05-15-2022 End: 05-15-2022 ambulatory DO Jorge Luis Furlong Work Phone: [facility] Work Phone: Start: 05-15-2022 End: 05-15-2022 Patient encounter procedure DO Jorge Luis Furlong Work Phone: [facility] Work Phone: Start: 03-12-2022 End: 03-12-2022 ambulatory Gabi Gaona Other [facility] Other Start: 03-12-2022 Office outpatient new 20 minutes Gabi Gaona [facility] Start: 02-13-2022 Telephone encounter Shiva Bess Hematology/Oncology Comment on above: Appointment Start: 01-31-2022 End: 01-31-2022 ambulatory SIMINRA REIDDionna Facility:[facility] Start: 01-31-2022 End: 01-31-2022 ambulatory Simin Lama MD Work Phone: Hematology/Oncology Comment on above: 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, left (HCC) (Primary Dx) Start: 01-31-2022 End: 01-31-2022 Patient encounter procedure Simin Lama MD Work Phone: [facility] Start: 01-31-2022 Telephone encounter Simin stanford MD Work Phone: [facility] Comment on above: Appointment Start: 07-28-2021 End: 07-28-2021 ambulatory DRAKE ANAND Facility:[facility] Start: 07-28-2021 End: 07-28-2021 ambulatory Drake Anand MD Work Phone: Hematology/Oncology Comment on above: 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, left (HCC) (Primary Dx); Lymphocytosis Start: 07-28-2021 End: 07-28-2021 Patient encounter procedure Drake Anand MD Work Phone: [facility] Start: 07-22-2021 Telephone encounter Ru Blackman advertising representative/Oncology Comment on above: Patient Question Start: 05-03-2021 End: 05-04-[address] TENZIN GALVAN Facility:[facility] Start: 04-12-2021 Telephone encounter Amarilys hutton PA-C Work Phone: Hematology/Oncology Comment on above: 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 Start: 03-19-2021 Encounter for prepro cedural cardiovascular examination DR TIM NIÑO [facility] Start: 03-19-2021 Encounter for prepro cedural laboratory examination DR TIM NIÑO [facility] Start: 03-18-2021 End: 03-18-[address] TIM [...] Author Start: 07-28-2024 DIABETES SCREEN [facility] Start: 04-11-2024 DIABETES SCREEN DIABETES SCREEN [facility] Start: 06-03-2022 End: 08-03-2022 CBC W Auto Differential panel - Blood CBC + DIFF Lab Routine 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, left (HCC) Expected: 06/03/2022 (Approximate), Expires: 08/03/2022 [facility] Work Phone: Comment on above: Expected: 06/03/2022 (Approximate), Expires: 08/03/2022 Start: 06-03-2022 End: 08-03-2022 Comprehensive metabolic 2000 panel - Serum or Plasma COMP METABOLIC PANEL Lab Routine 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, left (HCC) Expected: 06/03/2022 (Approximate), Expires: 08/03/2022 [facility] Work Phone: Comment on above: Expected: 06/03/2022 (Approximate), Expires: 08/03/2022 Start: 05-12-2022 Adult depression screening assessment DEPRESSION SCREENING [facility] Start: 04-16-2022 ADVANCE DIRECTIVE DISCUSSION ADVANCE DIRECTIVE DISCUSSION [facility] Start: 04-16-2022 DEPRESSION ASSESSMENT DEPRESSION ASS ESSMENT [facility] Start: 02-14-2022 End: 03-02-2023 Diagnostic mammography computer-aided detcj uni [facility] Radiology Routine 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, left (HCC) Expected: 02/14/2022, Expires: 03/02/2023 [facility] Work Phone: Comment on above: Expected: 02/14/2022 , Expires: 03/02/2023 Start: 12-15-2021 Influenza vaccination [facility] Start: 06-07-2021 COVID-19 VACCINE (4 - Booster for Pfizer series) COVID-19 VACCINE (4 - Booster for Pfizer series) [facility] Start: 04-16-2021 ADVANCE DIRECTIVE DISCUSSION ADVANCE DIRECTIVE DISCUSSION [facility] Start: 04-16-2021 DEPRESSION ASSESSMENT DEPRESSION ASS ESSMENT [facility] Start: 04-01-2021 COVID-19 VACCINE (4 - Booster for Pfizer series) COVID-19 VACCINE (4 - Booster for Pfizer series) [facility] Start: 2006 BONE DENSITY BONE DENSITY [facility] Start: 1991 SHINGRIX VACCINE (1 of 2) SHINGRIX VACCINE (1 of 2) [facility] Start: 1960 Urine microalbumin profile DTAP,TDAP,TD (1 - Tdap) [facility] End: 07-28-2022 CBC W Auto Differential panel - Blood CBC + DIFF Lab Routine 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, left (HCC) Every 3 months for 10 Occurrences starting 07/28/2021 until 07/28/2022, 1 completed [facility] Work Phone: Comment on above: Every 3 months for 1 0 Occurrences starting 07/28/2021 until 07/28/2022, 1 completed End: 07-28-2022 Comprehensive metabolic 2000 panel - Serum or Plasma COMP METABOLIC PANEL Lab Routine 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, left (HCC) Every 3 months for 10 Occurrences starting 07/28/2021 until 07/28/2022 [facility] Work Phone: Comment on above: Every 3 months for 1 0 Occurrences starting 07/28/2021 until 07/28/2022 End: 06-14-2023 Diagnostic mammography computer-aided detcj bi [facility] Radiology Routine 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, left (HCC) 1 Occurrences starting 05/15/2022 until 06/14/2023 [facility] Work Phone: Comment on above: 1 Occurrences starti ng 05/15/2022 until 06/14/2023 End: 08-27-2022 Screening mammography bi 2-view breast inc cad DANIELLE SCREENING Radiology Routine 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, left (HCC) 1 Occurrences starting 07/28/2021 until 08/27/2022 [facility] Work Phone: Comment on above: 1 Occurrences starti ng 07/28/2021 until 08/27/2022 End: 06-14-2023 Us breast uni real time with image limited [facility] Work Phone: Comment on above: 1 Occurrences starti ng 05/15/2022 until 06/14/2023 [facility] Immunizations Immunization Date Immunization Notes Care Provider Fa cility 02-04-2021 COVID-19 vaccine, ag e 12+ yr (PFIZER-BIONTECH - PURPLE TOP) Ru Blackman RN [facility] 06-03-2020 COVID-19 vaccine, ag e 12+ yr (PFIZER-BIONTECH - PURPLE TOP) Ru Blackman RN [facility] 05-12-2020 COVID-19 vaccine, ag e 12+ yr (PFIZER-BIONTECH - PURPLE TOP) Ru Blackman RN [facility] 12-26-2019 influenza, high dose seasonal, preservative-free Ru Blackman RN [facility] 01-24-2018 influenza, high dose seasonal, preservative-free Ru Blackman RN [facility] 01-25-2017 influenza, high dose seasonal, preservative-free Ru Blackman [facility] 10-12-2014 pneumococcal conjuga te vaccine, 13 valent Ru Blackman RN [facility] 04-05-2010 pneumococcal polysaccharide vaccine, 23 valent Ru Blackman [facility] Payers Date Payer Category Payer Self-pay [id number] 2018 Unknown [employer]THEM [employer] BLUE SHIELD ANTHEM MEDIBLUE O [id number] 2018-Present [phone] [address] [facility] [id number] 2018 Unknown ANTHEM [employer] S AND BLUE SHIELD ANTHEM MEDIBLUE O [id number] 2018-Present [phone] [address] [place] [id number] O [id number] 1959 Unknown [id number] 1941 Unknown [id number] 1941 Unknown [id number] 1941 Unknown [id number] 1941 Unknown [id number] 1941 Unknown [id number] 1941 Unknown [id number] 1941 Unknown [id number] 1941 Unknown [id number] 1941 Unknown [id number] 9 Unknown [id number] Social History Date Type Detail Facility Start: 04-05-2021 Tobacco smoking status NHIS Never smoked tobacco [facility] Start: 04-05-2021 Tobacco use and exposure Smokeless tobacco non-user [facility] Start: 05-12-2021 End: 01-31-2022 Alcohol intake Ex-drinker (finding) [facility] Start: 1940 Sex Assigned At Not on file [facility] Start: 07-18-2021 End: 01-31-2022 Exposure to SARS-CoV-2 (event) Not sure [facility] Sex Assigned At Sex Assigned At [facility] Other Start: 1940 Sex Assigned At Female F [facility] Clinical Notes 03-18-2021 to 05-15-2022 Telephone Encounter - Ru Thomas RN - 05/15/2022 2:18 PM ESTTelephone Encounter - Honey Almeida - 05/15/2022 2:15 PM ESTTelephone Encounter - Honey Juan Pablo - 05/15/2022 2:14 PM EST Note Date & Type Note Facility 05-15-2022 Miscellaneous Notes Formattin g of this note might be different from the original. Received call from pt stating [place] is [place] [facility] [place] orders sent. Orders faxed as requested. Ru Thomas RN documented in this encounter [facility] 05-15-2022 Miscellaneous Notes Formattin g of this note might be different from the original. Faxed order to Chrissie May 15, 2022 2:15 PM Honey Almeida Faxed order to Chrissie May 15, 2022 2:15 PM Honey Almeida Ordered Patient is currently [place] [facility] [place]. Chrissie is calling to request a new order. 1) Diagnostic Bilateral Mammogram 2) US order (that way they have it if needed) ABDIFATAH/Amarilys: If in agreement, can you please place order PERLITA and I will fax back to her? Thanks! Chrissie: Ph. [phone] Fax. [phone] Honey Almeida documented in this encounter [facility] 03-12-2022 Evaluation note Encounter Date Diagnosis Assessment [...] no improvement in 2 to 3 days. [employer] Other 10-31-2022 Miscellaneous Notes* Telephone Encounter - [...] advise Shiva Reyes RN documented [facility]22 NoteHNO ID: [id number] Author: Simin Lama MD Service: ? Author Type: Physician Type: Progress Notes Filed: 01/31/2022 3:38 PM Note Text: PATIENT NAME: Johanny Forbes [facility] NO.: [id number] ATTENDING PHYSICIAN: Simin Lama MD DATE OF [...] metastatic breast carcinoma, 5 cm, ER 0, GA 0, HER-2 0 by IHC. The tissue was not evaluated for flow cytometry to rule out a lymphoproliferative process. 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 Differential included mammary, skin, urothelial, pancreaticobiliary and pulmonary primaries. ER 0, GA 0, HER-2 negative by CAMERON. 2021 PET [...] 04/11/2021 141 Chloride (mmol (more content not included)...[facility] 01-31-2022 Miscellaneous Notes* Telephone Encounter - Honey Almeida - 01/31/2022 4:[address] Lama, patient had a previous abnormal L Mammogram and never followed up. He would like L Mammogram completed now. Faxed order to [facility] scheduling per patient's hospital request. Honey Almeida documented [facility] History of Present illness Narrative* Simin Lama MD - 01/31/2022 3:19 PM EDT PATIENT NAME: Johanny Forbes CLINIC NO.: [id number] ATTENDING PHYSICIAN: Simin Lama MD DATE OF [...] metastatic breast carcinoma, 5 cm, ER 0, GA 0, HER-2 0 by IHC. The tissue was not evaluated for flow cytometry to rule out a lymphoproliferative process. 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 Differential included mammary, skin, urothelial, pancreaticobiliary and pulmonary primaries. ER 0, GA 0, HER-2 negative by CAMERON. 2021 PET [...] 07/28/2021 3.28 1.00 - 4.00 k/uL Final Payne% Date Value Ref Range Status 07/28/2021 5.9 % Final Abs Payne Date Value Ref Range Status 07/28/2021 0.46 [...] Maira Saunders Booth and Ryan, of the [facility] breast pathology department, who concur. Metastatic carcinoma [...] do not hesitate to contact me at [phone]. Simin Lama MD Hematology/Medical Oncology [facility] I spent a total of 30 minutes on the date of the service which included preparing to see the patient, [id number] patient care, completing clinical documentation, obtaining and/or reviewing separately obtained history, performing a medically appropriate examination, counseling and educating the pat ient/family/caregiver, and ordering medications, tests, or procedures. Medical Decision Making: Medical Decision Making Level: 1 - N/A CC: DO Jorge Luis Webster DO documented in this encounterCommunity [facility]04-14-2022 NoteHNO ID: [id number] Author: Drake Anand MD Service: ? Author [...] metastatic breast carcinoma, 5 cm, ER 0, GA 0, HER-2 0 by IHC. The tissue was not evaluated for flow cytometry to rule out a lymphoproliferative process. 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 Differential included mammary, skin, urothelial, pancreaticobiliary and pulmonary primaries. ER 0, GA 0, HER-2 negative by CAMERON. ? 2021 [...] date of the (more content not included)... [facility]04-14-2022 History of Present illness Narrative* Drake [...] metastatic breast carcinoma, 5 cm, ER 0, GA 0, HER-2 0 by IHC. The tissue was not evaluated for flow cytometry to rule out a lymphoproliferative process. 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 Differential included mammary, skin, urothelial, pancreaticobiliary and pulmonary primaries. ER 0, GA 0, HER-2 negative by CAMERON. 2021 PET [...] which included preparing to see the patient, [id number] patient care, completing clinical documentation, obtaining and/or reviewing separately obtained history, counseling and educating the patient/family/caregiver, ordering medications, herlinda ts, or procedures, independently interpreting results (not separately reported) and communicating results to the patient/family/caregiver. documented in [facility] Miscellaneous Notes* Telephone Encounter - Thao Vallecillo [...] discuss further. She can be reached at [phone]. Ru Blackman RN documented in this encounterCommunity [facility]12[facility]21 Miscellaneous Notes* Telephone Encounter - Amarilys Murry PA-C - 04/12/2021 4:42 PM EST Request received [place] [facility] [place] additional diagnosis codes for MRI breast because diagnosis providedis not a covered diagnosis. Will send with additional diagnosis codes. Will try C50.912 and C77.3. (carcinoma of breast metastatic to left axillary node) Amarilys Murry PA-C documented in this encounterCommunity [facility]12-[facility]-2021 NoteOPERATIVE NOTE OPERATION DATE: 03-18-21 ANESTHETIC:LMA. SENIOR DATA MODELER:COLTON Enciso PREOPERATIVE DIAGNOSIS:Left axillary mass. POSTOPERATIVE DIAGNOSIS: [...] taken to the PACU in fair condition. [facility] Signed and Approved by: DR TIM NIÑO . 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, left (HCC) Procedures DANIELLE DIAGNOSTIC LT DIAGNOSTIC MAMMOGRAPHY COMPUTER-AIDED DETCJ Simin Montano MD [address] [place] [address] [facility] [address] [place] [address] Referral ID Status Reason Start Date Expiration Date Visits Requested Visits Authorized [id number] Pending Review Auto-Generat ed Referral 02/14/2022 03/02/2023 1 1 [facility] for referral (narrative)* Diagnostic Procedure Only (Routine) - Pending Review Specialty Diagnoses / Procedures [facility] Diagnoses 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, left (HCC) Procedures US BREAST LTD RT US BREAST UNI REAL TIME WITH IMAGE LIMITED Simin Lama MD [address] [place] [address] [facility] [address] [place] [address] Referral ID Status Reason Start Date Expiration Date Visits Requested Visits Authorized [id number] Pending Review Auto-Generat ed Referral 05/15/2022 06/14/2023 1 1 * Diagnostic Procedure Only (Routine) - Pending Review Specialty Diagnoses / Procedures Referred By Contac t Referred To Contact [facility] Diagnoses 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, left (HCC) Procedures US BREAST LTD LT US BREAST UNI REAL TIME WITH IMAGE LIMITED Simin Lama MD [address] [place] [address] [facility] [address] [place] [address] Referral ID Status Reason Start Date Expiration Date Visits Requested Visits Authorized [id number] Pending Review Auto-Generat ed Referral 05/15/2022 06/14/2023 1 1 * Diagnostic Procedure Only (Routine) - Pending Review Specialty Diagnoses / Procedures Referred By Jerry t Referred To Contact [facility] Diagnoses 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, left (HCC) Procedures DANIELLE DIAGNOSTIC BILAT DIAGNOSTIC MAMMOGRAPHY COMPUTER-AIDED DETCJ Simin Lin MD [address] [place] [address] [facility] [address] [place] [address] Referral ID Status Reason Start Date Expiration Date Visits Requested Visits Authorized [id number] Pending Review Auto-Generat ed Referral 05/15/2022 06/14/2023 1 1 [facility] Summary Purpose Family History No Family History [...] section and content) DATE CREATED AUTHOR 06/27/2018 [facility] DATE CREATED AUTHOR AUTHOR'S ORGANIZ ATION [facility] DATE CREATED AUTHOR AUTHOR'S ORGANIZ ATION 05/07/2021 [facility] DATE CREATED AUTHOR AUTHOR'S ORGANIZ ATION 12/11/2021 [facility] DATE CREATED AUTHOR AUTHOR'S ORGANIZ ATION 05/16/2022 [facility] DATE CREATED AUTHOR AUTHOR'S ORGANIZ ATION 05/24/2022 [facility] DATE CREATED AUTHOR AUTHOR'S ORGANIZ ATION 03/19/2023 [facility] EPIC Source Comments (unrecognize d section and content) In the event this informatio n is protected by the Federal Confidentiality of Alcohol and Drug Abuse Patient Records regulations: The Federal rules restrict any use of the information to criminally investigate or prosecute any alcohol or drug abuse patient.[facility] CenterIn the event this information is protected by the Federal Confidentiality of Alcohol and Drug Abuse Patient Records regulations: The Federal rules restrict any use of the information to criminally investigate or prosecute any alcohol or drug abuse patient.[facility] CenterIn the event this information is protected by the Federal Confidentiality of Alcohol and Drug Abuse Patient Records regulations: The Federal rules restrict any use of the information to criminally investigate or prosecute any alcohol or drug abuse patient.[facility] CenterIn the event this information is protected by the Federal Confidentiality of Alcohol and Drug Abuse Patient Records regulations: The Federal rules restrict any use of the information to criminally investigate or prosecute any alcohol or drug abuse patient.[facility] CenterIn the event this information is protected by the Federal Confidentiality of Alcohol and Drug Abuse Patient Records regulations: The Federal rules restrict any use of the information to criminally investigate or prosecute any alcohol or drug abuse patient.[facility] CenterIn the event this information is protected by the Federal Confidentiality of Alcohol and Drug Abuse Patient Records regulations: The Federal rules restrict any use of the information to criminally investigate or prosecute any alcohol or drug abuse patient.[facility] CenterIn the event this information is protected by the Federal Confidentiality of Alcohol and Drug Abuse Patient Records regulations: The Federal rules restrict any use of the information to criminally investigate or prosecute any alcohol or drug abuse patient.[facility] CenterIn the event this information is protected by the Federal Confidentiality of Alcohol and Drug Abuse Patient Records regulations: The Federal rules restrict any use of the information to criminally investigate or prosecute any alcohol or drug abuse patient.[facility] Reason for Visit (unrecogniz ed section and content) Reason Comments Patient Question Reason Comments Breast Cancer 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 Reason Comments Breast Cancer Follow up Reason Comments Appointment Reason Comments Orders Reason Comments Orders Care Teams (unrecognized sec tion and content) 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 Relationship Specialty Start Date End Date Jorge Luis Simon [address] [place] [address] PCP - General Family Practice 03/28/21 Milling 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 Relationship Specialty Start Date End Date Jorge Luis Simon [address] [place] [address] PCP - General Family Practice 03/28/21 Milling 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 Relationship Specialty Start Date End Date Jorge Luis Simon, DO [address] [place] [address] PCP - General Family Practice 03/28/21 Milling 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 Relationship Specialty Start Date End Date Jorge Luis Simon, DO [address] [place] [address] PCP - General Family Medicine 03/28/21 Milling 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 Relationship Specialty Start Date End Date Jorge Luis Simon, DO [address] [place] [address] PCP - General Family Medicine 03/28/21 Milling 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 Relationship Specialty Start Date End Date Jorge Luis Simon, DO [address] [place] [address] PCP - General Family Medicine 03/28/21 Milling 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 Relationship Specialty Start Date End Date Jorge Luis Simon, DO [address] [place] [address] PCP - General Family Medicine 03/28/21 Milling 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 Relationship Specialty Start Date End Date Charley Jorge Luis Hodge DO [address] [place] [address] PCP - General Family Medicine [...] BE BASED ON THE PRIMARY CLINICAL RECORDS. [employer] [facility]. provides no warranty or guarantee of the accuracy or completeness of information in this document.
== END 2023-03-22 16:53 | disposition home or self-care (01) ==
LOC: ER 16:53 → ICU 03-22 07:19
PROVIDERS: Admitting Provider Internal Medicine; Emergency Provider Emergency Medicine; PCP Family Medicine; Visit Provider Internal Medicine
DX: I63.81 Other cerebral infarction due to occlusion or stenosis of small artery (principal); I25.10 Atherosclerotic heart disease of native coronary artery without angina pectoris; N17.9 Acute kidney failure, unspecified; E11.22 Type 2 diabetes mellitus with diabetic chronic kidney disease; N18.30 Chronic kidney disease, stage 3 unspecified; I12.9 Hypertensive chronic kidney disease with stage 1 through stage 4 chronic kidney disease, or unspecified chronic kidney disease; E03.9 Hypothyroidism, unspecified; E78.5 Hyperlipidemia, unspecified; Z20.822 Contact with and (suspected) exposure to COVID-19; I25.2 Old myocardial infarction; Z98.890 Other specified postprocedural states; Z90.49 Acquired absence of other specified parts of digestive tract; Z79.899 Other long term (current) drug therapy; Z79.890 Hormone replacement therapy
CPT/HCPCS: 36415; 70450; 70544; 70547; 70551; 80053; 80061; 81003; 83036; 83605; 83735; 84484; 85025; 85610; 87635; 87811; 93005; 93306; 96372; 97161; 97165; 97530; 99285; G0378; Q3014

== ENCOUNTER 2023-06-01 00:29 | Observation (INO) | payer OTHER, SELFPAY ==
[2023-06-01] VITALS (52 sets, daily range): BP systolic 112–196; BP diastolic 58–100; PULSE 52–76; RESP 12–25; TEMP 36.6–37.3; O2SAT 95–100; BMI 26.6; BMI 26.9
--- OUTSIDE RECORDS SUMMARY | 2023-06-01 00:38 | XMS_ITS | CCD ---
Author Name Unknown Address [address] [facility] [address] [place] [address] Organization [facility] Care Team Providers Care Drying Room Supervisor Name Role Phone RIAN ROSS Admitting Unavailable [...] Unavailable SANTA HENDERSON Consulting Unavailable KUNS, DR KATHIE Del Castillo Admitting Unavailable KUNEly, DR KATHIE Del Castillo Attending Unavailable FURLONG, DR JORGE LUIS Garrison Primary Care Unavailable WEST, DR TENZIN Cortes Consulting Unavailable KUNS, DR KATHIE Del Castillo Consulting Unavailable WIECEK, DR TIM Servin Attending Unavailable FURLONG, DR JORGE LUIS Garrison Primary Care Unavailable WIECEK, DR TIM Servin Admitting Unavailable WEST, DR TENZIN Cortes Consulting Unavailable FURLONG, DR JORGE LUIS Garrison Primary Care Unavailable KUNTE, DRAKE Admitting Unavailable KUNTE, DRAKE Attending Unavailable KUNTE, DRAKE Consulting Unavailable MISC, DR BARRETT Admitting Unavailable FURLONG, DR JORGE LUIS Garrison Primary Care Unavailable MISC, DR BARRETT Attending Unavailable MISC, DR BARRETT Consulting Unavailable KUNS, DR KATHIE Del Castillo Attending Unavailable KUNS, DR KATHIE Del Castillo Admitting Unavailable FURLONG, DR JORGE LUIS Garrison Primary Care Unavailable WEST, DR TENZIN Cortes Consulting Unavailable RIC, DR KATHIE Del Castillo Consulting Unavailable Jorge Luis Whitehead Primary Care Provider Jorge Luis Whitehead DO Primary Care Provider Jorge Luis Whitehead DO Primary Care Provider Gabi Gaona Unavailable Jorge Luis Whitehead DO Primary Care Provider DO Jorge Luis Whitehead Primary Care Provider [phone] MD Simin Lama Attending Provider DRAKE ANAND Attending Unavailable KUNCHAR, DRAKE Referring Unavailable PREMLONG, JORGE LUIS MINDI Primary Care Unavailab le KUNTE, DRAKE Referring Unavailable FURLONG, JORGE LUIS MINDI Primary Care Unavailab le JACKAMLOU, SIMIN Attending Unavailable LARY, DRAKE Referring Unavailable PREMLONG, JORGE LUIS OBREGON Primary Care Unavailab le Simin Lama Admitting Unavailable Simin Lama Attending Unavailable Premlorupali, Jorge Luis Primary Care Unavailable REINALDO ROGEL Attending Unavailable LINETTE BLANKENSHIP Attending Unavailable REINALDO ROGEL Attending Unavailable Amanda Briones MD Primary Care Provider Linette Blankenship NP Unavailable Amanda Briones MD Unavailable Allergies Allergy Classification Reported Allergen(s) Allergy Type Date of Onset Reaction(s) Facility (3 sources) Amino Acids; Translations: [LISINOPRIL] Drug Allergy 04-05-20 21 [facility] Repository (3 sources) Penicillins; Translations: [PENICILLINS] Drug allergy (disorder) 09-21-19 16 Rash [facility] Repository (8 sources) Lisinopril Drug Allergy 04-05-20 21 Unknown [facility] (2 sources) Penicillins Drug Intolerance 04-05-20 21 Other: See Comments [facility] (6 sources) Penicillins Drug Intolerance 04-05-20 21 Other: See Comments [facility] (5 sources) Amino Acids Drug Allergy 02-01-20 Other: See Comments [facility] (1 source) Penicillin V Drug Allergy dizziness, LOC [employer] Other (1 source) Penicillins Drug allergy (disorder) 06-15-19 19 [facility] Repository (2 sources) Amino Acids Drug Allergy 02-01-20 22 Other [facility] Work Phone: (2 sources) HMG-CoA reductase inhibitor Propensity to adverse reactions 09-09-19 Other [facility] Work Phone: (2 sources) Lisinopril Propensity to adverse reactions 04-05-20 Cough, Other [facility] Healthcare (2 sources) Penicillins Drug Intolerance 04-05-20 Other [facility] Healthcare Medications Current Medications Medication Drug Class(es) Dates [...] aspirin low dose 81m g ec atorvastatin 20 mg oral tablet (3 sources) HMG-CoA Reductase Inhibitor Start: 4 End: 4 take 1 tablet by mouth at bedtime atorvastatin (Lipitor) 20 MG tablet Indications: Acute arterial ischemic stroke, multifocal, posterior circulation, right (CMS/HCC) Take 1 tablet (20 mg) by mouth at bedtime 90 tablet 1 04/18/2023 10/15/2023 Active Start: 06-14-2018 take 80 mg by mouth once daily in the evening Atorvastatin Active 80 MG PO Every evening 30 June 14, 2018 12:00am carvedilol 3.125 mg oral tablet (12 sources) alpha-Adrenergic Leela, beta-Adrenergic Leela Start: 11-21-2022 take 1 tablet by mouth in the morning carvedilol (Coreg) 3.125 MG tablet Indications: Primary hypertension (CMS/HCC) Take 1 tablet (3.125 mg) by mouth in the morning and 1 tablet (3.125 mg) in the evening. Take with meals. 180 tablet 0 11/21/2022 Active Start: 06-18-2018 take 1 tablet by edna th twice daily at mealtime carvedilol (COREG) 3.125 mg tablet Take 3.125 mg by mouth twice daily with meals. 0 12/22/2020 Active Comment on above: Take 3.125 mg by edna th twice daily with meals. clopidogrel 75 mg oral tablet (3 sources) P2Y12 Platelet Inhibitor Start: 4 End: take 1 tablet by mouth in the morning clopidogrel (Plavix) 75 MG tablet Indications: Acute arterial ischemic stroke, multifocal, posterior circulation, right (CMS/HCC) Take 1 tablet (75 mg) by mouth in the morning. 90 tablet 1 04/18/2023 10/15/2023 Active Start: 06-18-2018 End: 07-13-2019 take 1 tablet by mouth once daily Clopidogrel (Plavix) 75 mg tablet Discontinued 75 MG PO Daily June 18, 2018 12:00am July 12, 2019 11:03pm ezetimibe 10 mg oral tablet (2 sources) Dietary Cholesterol Absorption Inhibitor take 1 tablet by mouth in the morning ezetimibe (Zetia) 10 MG tablet Take 10 mg by mouth in the morning. 0 Active levothyroxine sodium 0.025 mg oral tablet (2 sources) l-Thyroxine Start: End: take 1 tablet by mouth in the morning levothyroxine (Synthroid) 25 MCG tablet Indications: Hypothyroidism (acquired) (CMS/HCC) Take 1 tablet (25 mcg) by mouth in the morning. Take on an empty stomach. 90 tablet 0 03/20/2023 06/18/2023 Active lisinopril 2.5 mg oral tablet (1 source) Angiotensin Converting Enzyme Inhibitor Start: take 2.5 mg by mouth once daily Lisinopril Active 2.5 MG PO Daily June 14, 2018 12:00am LOW-DOSE ASPIRIN PO (2 sources) LOW-DOSE ASPIRIN PO Low-Dose Aspirin 0 Active metFORMIN hydrochloride 500 mg oral tablet (1 source) Biguanide Start: take 250 mg by mouth twice daily Metformin Active 250 MG PO Twice daily June 14, 2018 12:00am mometasone furoate 1 mg/ml topical cream (2 sources) Corticosteroid mometasone (Eloc on) 0.1 % cream Apply 1 application topically in the morning. 0 Active Multiple Vitamin (MULTIVITAMIN ADULT PO) (2 sources) Multiple Vitamin (MULTIVITAMIN ADULT PO) Multivitamin 0 Active valsartan 40 mg oral tablet (2 sources) Angiotensin 2 Receptor Leela Start: End: take 0.5 tablet by mouth in the morning valsartan (Diovan) 40 MG tablet Indications: Primary hypertension (CMS/HCC) Take 0.5 tablets (20 mg) by mouth in the morning. 45 tablet 1 04/03/2023 09/30/2023 Active Completed/Discontinued Medications Medication Drug Class(es) Dates Sig (Normalized) Sig (Original) 1 ml enoxaparin sodium 100 mg/ml prefilled syringe (1 source) Low Molecular Weight Heparin Start: 06-18-2018 End: 06-23-2018 Enoxaparin (Lovenox) 100 mg/mL syringe Discontinued 75 MG SUBCUT Daily 3.75 5 June 18, 2018 12:00am June 23, 2018 [...] Classification Problem Date Documented Date Episodic/Chronic Acute cerebrovascular disease (4 sources) Ischemic stroke; Translations: [Cerebral infarction due to unspecified occlusion or stenosis of right posterior cerebral artery] Onset: 04-03-2023 05-25-2023 Chronic Acute myocardial infarction (1 source) Myocardial infarction; Translations: [Non-ST elevation (NSTEMI) myocardial infarction] 06-14-2018 Chronic Administrative/social admission (2 sources) Advance directive discussed with patient; Translations: [Other specified counseling] 05-14-2023 Episodic Cancer of breast (16 sources) 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; Translations: [Malignant neoplasm of unspecified site of left female breast] Onset: 04-12-2021 04-12-2021 Chronic Chronic kidney disease (4 sources) Chronic kidney disease stage 3B ; Translations: [Chronic kidney disease, stage 3b (HCC) (CMS/HCC)] Onset: 09-08-2022 05-25-2023 Chronic Conduction disorders (1 source) Long QT syndrome; Translations: [Long QT syndrome] 06-15-2018 Chronic Congestive heart failure; nonhypertensive (1 source) Heart failure, unspecified; Translations: [HEART FAILURE UNSPECIFIED] Onset: 03-28-2021 Chronic Coronary atherosclerosis and other heart disease (7 sources) Atherosclerotic heart disease of [place] coronary artery without angina pectoris; Translations: [Old myocardial infarction] Onset: 03-28-2021 06-15-2018 Chronic Diabetes mellitus with complications (4 sources) Type 2 diabetes mellitus; Translations: [Type 2 diabetes mellitus with diabetic chronic kidney disease] Onset: 09-08-2022 05-25-2023 Chronic Diabetes mellitus without complication (2 sources) Type 2 diabetes mellitus without complications; Translations: [Diabetes mellitus] Onset: 03-28-2021 06-14-2018 Chronic Diseases of white blood cells (1 source) Lymphocytosis; Translations: [Lymphocytosis (symptomatic)] Chronic Disorders of lipid metabolism (5 sources) Hyperlipidemia, unspecified; Translations: [Dyslipidemia] Onset: 03-28-2021 05-25-2023 Chronic Essential hypertension (5 sources) Hypertensive disorder; Translations: [Essential (primary) hypertension] Onset: 09-08-2022 06-14-2018 Chronic Hypertension with complications and secondary hypertension (1 source) Hypertensive heart disease with heart failure; Translations: [HTN HEART DISEASE W/HEART FAIL] Onset: 03-28-2021 Chronic Immunizations and screening for infectious disease (2 sources) Contact with and (suspected) exposure to other viral communicable diseases; Translations: [Contact with and (suspected) exposure to other viral communicable diseases] Episodic Late effects of cerebrovascular disease (4 sources) Left hemiparesis; Translations: [Hemiplegia and hemiparesis following cerebral infarction affecting left non-dominant side] Onset: 04-03-2023 05-25-2023 Chronic Other aftercare (1 source) Other custodial (current) drug therapy; Translations: [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 DRUG THERAPY] Onset: 03-28-2021 Episodic Other aftercare (1 source) 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; Translations: [GROUP HOME USE ORAL HYPOGLYCEMIC DX] Onset: 03-28-2021 Episodic Other and ill-defined heart disease (1 source) Takotsubo cardiomyopathy; Translations: [Takotsubo syndrome] 06-15-2018 Chronic Other and ill-defined heart disease (1 source) Left ventricular cardiac dysfunction; Translations: [Heart disease, unspecified] 06-15-2018 Chronic Other hereditary and degenerative nervous system conditions (4 sources) Cerebral ventriculomegaly; Translations: [Degenerative disease of nervous system, unspecified] Onset: 04-03-2023 05-25-2023 Chronic Other nervous system disorders (4 sources) 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; Translations: [White matter disease, unspecified] Onset: 04-03-2023 05-25-2023 Episodic Other screening for suspected conditions (not mental disorders or infectious disease) (7 sources) Encounter for screening mammogram for malignant neoplasm of breast; Translations: [Other abnormal and inconclusive findings on diagnostic imaging of breast] Onset: 05-03-2021 Episodic Other skin disorders (2 sources) Lichen sclerosus et atrophicus; Translations: [Circumscribed scleroderma] Onset: 09-08-2022 09-08-2022 Chronic Other skin disorders (4 sources) Localized swelling, mass and lump, left upper limb; Translations: [LOC SWELL MASS LUMP LT UPPER LIMB] Onset: 03-18-2021 Episodic Other upper respiratory infections (1 source) Acute upper respiratory infection, unspecified Episodic Pulmonary heart disease (4 sources) Pulmonary hypertension, unspecified; Translations: [Other chronic pulmonary heart diseases] Onset: 04-03-2023 05-25-2023 Chronic Screening and history of mental health and substance abuse codes (2 sources) Patient encounter status; Translations: [Encounter for screening examination for other mental health and behavioral disorders] 05-14-2023 Episodic Secondary malignancies (1 source) Secondary and [...] Other Problems Problem Classification Problem Date Documented Da te Episodic/Chronic Cancer of cervix (2 sources) Atypical squamous cells of undetermined significance on cervical Papanicolaou smear; Translations: [Atypical squamous cells of undetermined significance on cytologic smear of cervix (ASC-US)] Onset: 03-25-2013 Resolved: 05-14-2023 05-14-2023 Episodic Mood disorders (2 sources) Mood disorders Onset: 05-14-2023 05-14-2023 Other circulatory disease (2 sources) History of cardiomyopathy; Translations: [Personal history of other diseases of the circulatory system] Onset: 09-08-2022 09-08-2022 Episodic Other eye disorders (4 sources) Dermatochalasis of unspecified eye, unspecified eyelid; Translations: [DERMATOCHALASIS UNS EYE UNS EYELID] Onset: 11-02-2020 Episodic Other gastrointestinal disorders (2 sources) Slow transit constipation; Translations: [Slow transit constipation] Onset: 09-08-2022 09-08-2022 Episodic Other skin disorders (4 sources) Localized swelling, mass and lump, trunk; Translations: [LOCALIZD SWELLING MASS AND LUMP TRUNK] Onset: 01-24-2021 Episodic Results Test Name Value Interpretation Reference Range Facility Aniket 05-15-2022 CNPN Telephone (NCCAP) -------- RANDOLPHJOHANNY GARNER ([id number]) 1940 F Date Time Provider Department 05/15/22 [facility] During your visit today, we recorded the following information about you: Honey Tucker 05/15/2022 1:42 PM Signed Patient is currently at [facility] for her Mammogram. Chrissie is calling to request a new order. 1) Diagnostic Bilateral Mammogram 2) US order (that way they have it if needed) ABDIFATAH/Amarilys: If in agreement, can you please place order PERLITA and I will fax back to her? Thanks! Chrissie: Ph. [phone] Fax. 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, left (HCC) [C50.912, C77.3] Order(s):DANIELLE DIAGNOSTIC BILAT [6007579] Order #: [id number] FUTURE US BREAST LTD LT [[id number]] Order #: [id number] FUTURE US BREAST LTD RT [[id number]] Order #: [id number] FUTURE Prescriptions as of 05/15/2022 - aspirin [...] to axillary lymp*04/12/2021 Encounter Status:Closed by HONEY TUCKER on [facility]/15/22 [facility] JOHANNY FORBES ([id number]) 1940 F Date Time Provider Department 05/15/22 RU THOMAS During your visit today, we recorded the following information about you: Ru Thomas RN 05/15/2022 2:19 PM Signed Received call from pt stating she is at [facility] and needs mammogram orders sent. Orders faxed [...] Status:Closed by RU THOMAS on 05/15/22 Normal [facility] MM diagnostic mammo BI w/CAD on 05-15-2022 MM diagnostic mammo BI w/CAD [facility] Main [place] [address] [place] [address] Mammography Report Signed Patient: Johanny Forbes MR#: [id number] : 1940 Acct:[id number] Age/Sex: 82 / F ADM Date: 05/15/22 Loc: [place] Room: Type: [facility] Attending Dr: Simin Lama MD Copies to: [...] mammogram. Impression dictated by: Jaycob Aguayo Jr., DMayela05/15/2022 2:50 PM Dictation Location: [facility] Transcribed By: GABRIEL 05/15/22 1450 Dictated By: Jaycob Aguayo Jr, DO 05/15/22 1445 Signed By: 05/15/22 1450 [facility] COVID/FLU RT-PCRon SARS-CoV-2 (COVID-19) RNA DEIDRE+probe Ql (Unsp spec) Negative [employer] Other COVID/FLU RT-PCR Negative [employer] Other CNPKenia 02-13-2022 CNPN Telephone (HEMTSA) -------- JOHANNY FORBES ([id number]) 1940 F Date Time Provider Department 02/13/22 [...] Encounter Status:Closed by SHIVA REYES on 02/13/22 [facility] CNOVSPon 01-31-2022 CNOVSP Visit (SP) Office ([place]) -------- JOHANNY FORBES ([id number]) 1940 F Date Time Provider Department 01/31/22 3:15 PM SIMIN LAMA During your visit today, we recorded the following information about you: Temperature Pulse Respiration Blood pressure 97.3 degrees 62/minute 16/minute 142/65 Weight Height 70 kg 1.589 m Simin Lama MD 01/31/2022 3:38 PM Signed PATIENT NAME: Johanny Forbes CLINIC NO.: [id number] ATTENDING PHYSICIAN: Simin Lama MD DATE OF SERVICE: January 31, 2022 Some of the elements of this note have been copied from my previous progress note dated 07/28/2021. All the information has been reviewed carefully. Dear Dr. Jorge Luis Whitehead, here is an update on a follow [...] metastatic breast carcinoma, 5 cm, ER 0, DC 0, HER-2 0 by IHC. The tissue was not evaluated for flow cytometry to rule out a lymphoproliferative process. 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 Differential included mammary, skin, urothelial, pancreaticobiliary and pulmonary primaries. ER 0, DC 0, HER-2 negative by CAMERON. 2021 PET [...] Rectal: Deferred (more content not included)... [facility] Telephone ([facility]) -------- JOHANNY FORBES ([id number]) 1940 F Date Time Provider Department 01/31/22 SIMIN LAMA During your visit today, we recorded the following information about you: Honey Tucker 01/31/2022 4:[address] Lama, patient had a previous abnormal L Mammogram and never followed up. He would like L Mammogram completed now. Faxed order to [facility] scheduling per patient's hospital request. Honey Tucker Allergies As of Date: 01/31/2022 Noted Allergy [...] to axillary lymp*04/12/2021 Encounter Status:Closed by HONEY TUCKER on 02/01/22 [facility] CNPN Telephone (ANNETTEA) -------- JOHANNY FORBES ([id number]) 1940 F Date Time Provider Department 01/30/22 [...] schedule for tomorrow. Thanks, ROSA ELENA Salguero 01/30/2022 3:14 PM Signed Patient taken off the schedule. Allergies As of Date: 01/30/2022 Noted Allergy Reaction LISINOPRIL 04/05/2021 16 - Unknown PENICILLINS 04/05/2021 14 - Other: See Comments Comments: Dizzy and passed out Date Reviewed: 07/28/2021 Reviewed by: Grisel Schaffer - Fully Assessed Reason for Visit: Patient Question [9197] Prescriptions as of 01/30/2022 - aspirin 82 [...] Status:Closed by AMANDA HENDERSON on 01/30/22 [facility]BUMIN, RANDOM URINE W/TAMERA [place] 12-09-2021 ALBUMIN, URINE 1.7 mg/dL Normal See Note: [facility] Comment on above: Result Comment: Refe renkarolina Range: Reference Range Not established Performed By: #### 7 18, 622, 496, 89604, 89623, 79932, 6399, 7600, 905, 6517 #### [facility] [place] [address] Signal Maintainer: César Dunn MD ALBUMIN/CREATININE RATIO, RANDOM URINE 23 mcg/mg creat Normal <30 [facility] Comment on above: Result [...] Performed By: #### 7 18, 622, 496, 25549, 92455, 12024, 6399, 7600, 905, 6517 #### [facility] [place] [address] Signal Maintainer: César Dunn MD Creatinine (U) [Mass/Vol] 74 mg/dL Normal 20-275 [facility] Comment on above: Performed By: #### 7 18, 622, 496, 85211, 33714, 65502, 6399, 7600, 905, 6517 #### [facility] [place] [address] Signal Maintainer: César Dunn MD CBC (INCLUDES DIFF/PLT)on Basophils (Bld) [#/Vol] 0.044 10*3/uL Normal 0-200 [facility] Comment on above: Performed By: #### 7 18, 622, 496, 09266, 02385, 92915, 6399, 7600, 905, 6517 #### [facility] [place] [address] Signal Maintainer: César Dunn MD Basophils/100 WBC (Bld) 0.5 % Normal [facility] Comment on above: Performed By: #### 7 18, 622, 496, 61009, 67013, 81643, 6399, 7600, 905, 6517 #### [facility] [place] [address] Signal Maintainer: César Dunn MD Eosinophils (Bld) [#/Vol] 0.29 10*3/uL Normal 15-500 [facility] Comment on above: Performed By: #### 7 18, 622, 496, 78275, 14356, 31045, 6399, 7600, 905, 6517 #### [facility] [place] [address] Signal Maintainer: César Dunn MD Eosinophils/100 WBC (Bld) 3.3 % Normal [facility] Comment on above: Performed By: #### 7 18, 622, 496, 66965, 88560, 55360, 6399, 7600, 905, 6517 #### [facility] [place] [address] Signal Maintainer: César Dunn MD Erythrocyte distribution width (RBC) [Ratio] 12.6 % Normal 11.0-15.0 [facility] Comment on above: Performed By: #### 7 18, 622, 496, 26060, 19952, 08318, 6399, 7600, 905, 6517 #### [facility] [place] [address] Signal Maintainer: César Dunn MD Hematocrit (Bld) [Volume fraction] 36.3 % Normal 35.0-45.0 [facility] Comment on above: Performed By: #### 7 18, 622, 496, 21647, 31930, 91516, 6399, 7600, 905, 6517 #### [facility] [place] [address] Signal Maintainer: César Dunn MD Hemoglobin (Bld) [Mass/Vol] 12.4 g/dL Normal 11.7-15.5 [facility] Comment on above: Performed By: #### 7 18, 622, 496, 71236, 15635, 36851, 6399, 7600, 905, 6517 #### [facility] [place] [address] Signal Maintainer: César Dunn MD Lymphocytes (Bld) [#/Vol] 3.08 10*3/uL Normal 850-3900 [facility] Comment on above: Performed By: #### 7 18, 622, 496, 22752, 81435, 79551, 6399, 7600, 905, 6517 #### [facility] [place] [address] Signal Maintainer: César Dunn MD Lymphocytes/100 WBC (Bld) 35.0 % Normal [facility] Comment on above: Performed By: #### 7 18, 622, 496, 99745, 32165, 41377, 6399, 7600, 905, 6517 #### [facility] [place] [address] Signal Maintainer: César Dunn MD MCH (RBC) [Entitic mass] 30.7 pg Normal 27.0-33.0 [facility] Comment on above: Performed By: #### 7 18, 622, 496, 96479, 26401, 07485, 6399, 7600, 905, 6517 #### [facility] [place] [address] Signal Maintainer: César Dunn MD MCHC (RBC) [Mass/Vol] 34.2 g/dL Normal 32.0-36.0 [facility] Comment on above: Performed By: #### 7 18, 622, 496, 06273, 85466, 69315, 6399, 7600, 905, 6517 #### [facility] [place] [address] Signal Maintainer: César Dunn MD MCV (RBC) [Entitic vol] 89.9 fL Normal 80.0-100.0 [facility] Comment on above: Performed By: #### 7 18, 622, 496, 91987, 34058, 01892, 6399, 7600, 905, 6517 #### [facility] [place] [address] Signal Maintainer: César Dunn MD Monocytes (Bld) [#/Vol] 0.37 10*3/uL Normal 200-950 [facility] Comment on above: Performed By: #### 7 18, 622, 496, 72499, 18747, 61501, 6399, 7600, 905, 6517 #### [facility] [place] [address] Signal Maintainer: César Dunn MD Monocytes/100 WBC (Bld) 4.2 % Normal [facility] Comment on above: Performed By: #### 7 18, 622, 496, 87899, 55870, 85471, 6399, 7600, 905, 6517 #### [facility] [place] [address] Signal Maintainer: César Dunn MD Neutrophils (Bld) [#/Vol] 5.016 10*3/uL Normal 3334-7422 [facility] Comment on above: Performed By: #### 7 18, 622, 496, 67162, 28020, 56775, 6399, 7600, 905, 6517 #### [facility] [place] [address] Signal Maintainer: César Dunn MD Neutrophils/100 WBC (Bld) 57 % Normal [facility] Comment on above: Performed By: #### 7 18, 622, 496, 05033, 65960, 47330, 6399, 7600, 905, 6517 #### [facility] [place] [address] Signal Maintainer: César Dunn MD Platelet mean volume (Bld) [Entitic vol] 10.6 fL Normal 7.5-12.5 [facility] Comment on above: Performed By: #### 7 18, 622, 496, 78285, 75379, 89072, 6399, 7600, 905, 6517 #### [facility] of [place] [address] Signal Maintainer: César Dunn MD Platelets (Bld) [#/Vol] 278 10*3/uL Normal 140-400 [facility] Comment on above: Performed By: #### 7 18, 622, 496, 97100, 90453, 29363, 6399, 7600, 905, 6517 #### [facility] of [place] [address] Signal Maintainer: César Dunn MD RBC (Bld) [#/Vol] 4.04 10*6/uL Normal 3.80-5.10 [facility] Comment on above: Performed By: #### 7 18, 622, 496, 13723, 28056, 73288, 6399, 7600, 905, 6517 #### [facility] of [place] [address] Signal Maintainer: César Dunn MD WBC (Bld) [#/Vol] 8.8 10*3/uL Normal 3.8-10.8 [facility] Comment on above: Performed By: #### 7 18, 622, 496, 61221, 15605, 82330, 6399, 7600, 905, 6517 #### [facility] of [place] [address] Signal Maintainer: César Dunn MD [facility] Albumin [Mass/Vol] 4.3 g/dL Normal 3.6-5.1 [facility] Comment on above: Performed By: #### 7 18, 622, 496, 22948, 75677, 14552, 6399, 7600, 905, 6517 #### [facility] of [place] [address] Signal Maintainer: César Dunn MD Albumin/Globulin [Mass ratio] 1.4 {ratio} Normal 1.0-2.5 [facility] Comment on above: Performed By: #### 7 18, 622, 496, 51971, 88650, 57487, 6399, 7600, 905, 6517 #### [facility] of [address], [address] [place] [address] Signal Maintainer: César Dunn MD ALP [Catalytic activity/Vol] 66 U/L Normal 37-153 [facility] Comment on above: Performed By: #### 7 18, 622, 496, 12267, 26771, 06854, 6399, 7600, 905, 6517 #### [facility] of [place] [address] Signal Maintainer: César Dunn MD ALT [Catalytic activity/Vol] 8 U/L Normal 6-29 [facility] Comment on above: Performed By: #### 7 18, 622, 496, 53847, 19726, 13716, 6399, 7600, 905, 6517 #### [facility] of [place] [address] Signal Maintainer: César Dunn MD AST [Catalytic activity/Vol] 16 U/L Normal 10-35 [facility] Comment on above: Performed By: #### 7 18, 622, 496, 69528, 54213, 72991, 6399, 7600, 905, 6517 #### [facility] of [place] [address] Signal Maintainer: César Dunn MD Bilirubin [Mass/Vol] 0.6 mg/dL Normal 0.2-1.2 [facility] Comment on above: Performed By: #### 7 18, 622, 496, 90221, 27432, 47107, 6399, 7600, 905, 6517 #### [facility] of [place] [address] Signal Maintainer: César Dunn MD Calcium [Mass/Vol] 9.6 mg/dL Normal 8.6-10.4 [facility] Comment on above: Performed By: #### 7 18, 622, 496, 37109, 83261, 19109, 6399, 7600, 905, 6517 #### [facility] of [place] [address] Signal Maintainer: César Dunn MD Chloride [Moles/Vol] 108 mmol/L Normal 98-110 [facility] Comment on above: Performed By: #### 7 18, 622, 496, 24117, 96081, 17893, 6399, 7600, 905, 6517 #### [facility] [address], [address] [place] [address] Signal Maintainer: César Dunn MD CO2 [Moles/Vol] 25 mmol/L Normal 20-32 [facility] Comment on above: Performed By: #### 7 18, 622, 496, 73269, 72588, 54575, 6399, 7600, 905, 6517 #### [facility] [place] [address] Signal Maintainer: César Dunn MD Creatinine [Mass/Vol] 1.37 mg/dL High 0.60-0.95 [facility] Comment on above: Performed By: #### 7 18, 622, 496, 70559, 93343, 15550, 6399, 7600, 905, 6517 #### [facility] [place] [address] Signal Maintainer: César Dunn MD GFR/1.73 sq M.predicted among non-blacks MDRD (S/P/Bld) [Vol rate/Area] 39 mL/min/{1.73_m2} Low > OR = 60 [facility] Comment on above: Result Comment: The eGFR is based on the CKD-EPI 202 equation. To calculate the new eGFR from a previous Creatinine or Cystatin C result, go to https://www.kidney.org/professionals/ kdoqi/gfr%5Fcalculator Performed By: #### 7 18, 622, 496, 13480, 57616, 07304, 6399, 7600, 905, 6517 #### [facility] [address], [address] [place] [address] Signal Maintainer: César Dunn MD Globulin (S) [Mass/Vol] 3.1 g/dL Normal 1.9-3.7 [facility] Comment on above: Performed By: #### 7 18, 622, 496, 96395, 26041, 07415, 6399, 7600, 905, 6517 #### [facility] [place] [address] Signal Maintainer: César Dunn MD Glucose [Mass/Vol] 121 mg/dL High 65-99 [facility] Comment on above: Result Comment: Fasting reference interval For someone without known diabetes, a glucose value between 100 and 125 mg/dL is consistent with prediabetes and should be confirmed with a follow-up test. Performed By: #### 7 18, 622, 496, 13137, 66583, 87896, 6399, 7600, 905, 6517 #### [facility] [place] [address] Signal Maintainer: César Dunn MD Potassium [Moles/Vol] 4.6 mmol/L Normal 3.5-5.3 [facility] Comment on above: Performed By: #### 7 18, 622, 496, 41136, 14340, 32755, 6399, 7600, 905, 6517 #### [facility] [place] [address] Signal Maintainer: César Dunn MD Protein [Mass/Vol] 7.4 g/dL Normal 6.1-8.1 [facility] Comment on above: Performed By: #### 7 18, 622, 496, 65472, 92910, 74990, 6399, 7600, 905, 6517 #### [facility] [place] [address] Signal Maintainer: César Dunn MD Sodium [Moles/Vol] 139 mmol/L Normal 135-146 [facility] Comment on above: Performed By: #### 7 18, 622, 496, 82889, 83204, 01282, 6399, 7600, 905, 6517 #### [facility] [place] [address] Signal Maintainer: César Dunn MD Urea nitrogen [Mass/Vol] 22 mg/dL Normal 7-25 [facility] Comment on above: Performed By: #### 7 18, 622, 496, 62101, 75604, 86479, 6399, 7600, 905, 6517 #### [facility] [address], [address] [place] [address] Signal Maintainer: César Dunn MD Urea nitrogen/Creatinin e [Mass ratio] 16 mg/mg Normal 6-22 [facility] Comment on above: Performed By: #### 7 18, 622, 496, 73523, 07407, 18052, 6399, 7600, 905, 6517 #### [facility] [address], [address] [place] [address] Signal Maintainer: César Dunn MD HEMOGLOBIN A1con 12-09-2021 HEMOGLOBIN [...] Performed By: #### 7 18, 622, 496, 75543, 52290, 10247, 6399, 7600, 905, 6517 #### [facility] [address], [address] [place] [address] Signal Maintainer: César Dunn MD LIPID PANEL, STANDARDon 11-15 Cholesterol [Mass/Vol] 260 mg/dL High <200 [facility] Comment on above: Order Comment: FASTI NG:YES FASTING: YES Performed By: #### 7 18, 622, 496, 85257, 57940, 42605, 6399, 7600, 905, 6517 #### [facility] [address], [address] [place] [address] Signal Maintainer: César Dunn MD Cholesterol in HDL [Mass/Vol] 38 mg/dL Low > OR = 50 [facility] Comment on above: Order Comment: FASTI NG:YES FASTING: YES Performed By: #### 7 18, 622, 496, 93676, 25336, 49311, 6399, 7600, 905, 6517 #### [facility] [address], [address] [place] [address] Signal Maintainer: César Dunn MD Cholesterol in LDL [Mass/Vol] [...] LDL-C. Tim HUMPHRIES et al. GENA. 2013;310(19): 9707-7808 (http://education.BetaUsersNow.com.[employer]faq/PZN408) Performed By: #### 7 18, 622, 496, 80127, 58358, 96160, 6399, 7600, 905, 6517 #### [facility] [address], [address] [place] [address] Signal Maintainer: César Dunn MD Cholesterol.total/ Cholesterol in HDL [Mass ratio] 6.8 {ratio} High <5.0 [facility] Comment on above: Order Comment: FASTI NG:YES FASTING: YES Performed By: #### 7 18, 622, 496, 29288, 50560, 32326, 6399, 7600, 905, 6517 #### [facility] [address], [address] [place] [address] Signal Maintainer: César Dunn MD NON HDL CHOLESTEROL 222 [...] Performed By: #### 7 18, 622, 496, 76761, 20876, 45913, 6399, 7600, 905, 6517 #### [facility] [address], [address] [place] [address] Signal Maintainer: César Dunn MD Triglyceride [Mass/Vol] 162 mg/dL High <150 [facility] Comment on above: Order Comment: FASTI NG:YES FASTING: YES Performed By: #### 7 18, 622, 496, 77747, 12960, 16157, 6399, 7600, 905, 6517 #### [facility] [address], [address] [place] [address] Signal Maintainer: César Dunn MD MAGNESIUMon 12-09-2021 Magnesium [Mass/Vol] 2.1 mg/dL Normal 1.5-2.5 [facility] Comment on above: Performed By: #### 7 18, 622, 496, 76076, 34503, 26105, 6399, 7600, 905, 6517 #### [facility] [place] [address] Signal Maintainer: César Dunn MD PHOSPHATE ( PHOSPHORUS)on 12-09-2021 Phosphate [Mass/Vol] 3.6 mg/dL Normal 2.1-4.3 [facility] Comment on above: Performed By: #### 7 18, 622, 496, 43699, 40379, 80046, 6399, 7600, 905, 6517 #### [facility] [address], [address] [place] [address] Signal Maintainer: César Dunn MD PTH, INTACT WITHOUT CALCIUMo n 12-09-2021 PARATHYROID HORMONE, INTACT 64 pg/mL Normal 16-77 [facility] Comment on above: Result Comment: Interpretive Guide Intact PTH Calcium ------- Normal Parathyroid Normal Normal Hypoparathyroidism Low or Low Normal Low Hyperparathyroidism Primary Normal or High High Secondary High Normal or Low Tertiary High High Non-Parathyroid Hypercalcemia Low or Low Normal High Performed By: #### 7 18, 622, 496, 90082, 41095, 62704, 6399, 7600, 905, 6517 #### [facility] [address], [address] [place], [place] [address] Signal Maintainer: César Dunn MD URIC ACIDon 12-09-2021 Urate [Mass/Vol] 5.1 mg/dL Normal 2.5-7.0 [facility] Comment on above: Result Comment: Ther apeutic target for gout patients: <6.0 mg/dL Performed By: #### 7 18, 622, 496, 20210, 02792, 24813, 6399, 7600, 905, 6517 #### [facility] [address], [address] [place], [place] [address] Signal Maintainer: César Dunn MD VITAMIN D,25-OH,TOTAL,IAon 0 12-09-2021 VITAMIN D,25-OH,TOTAL,IA 37 ng/mL Normal 30-100 [facility] Comment on above: Result Comment: Isaura min D Status 25-OH Vitamin D: Deficiency: <20 ng/mL Insufficiency: 20 - 29 ng/mL Optimal: > or = 30 ng/mL For 25-OH Vitamin D testing on patients on D2-supplementation and patients for whom quantitation of D2 and D3 fractions is required, the QuestAssureD(TM) 25-OH VIT D, (D2,D3), LC/MS/MS is recommended: order code 03311 (patients >2yrs). See Note 1 Note 1 For additional information, please refer to http://education.BetaUsersNow.com.[employer]faq/XPQ838 (This link is being provided for informational/ educational purposes only.) Performed By: #### 7 18, 622, 496, 96840, 37802, 88101, 6399, 7600, 905, 6517 #### [facility] [address] [facility], [address] [place] [address] Signal Maintainer: César Dunn MD CNCOon 11-07-2021 CNCO Letter Text Normal [facility] CBC W Auto Differential pane l (Bld)on 07-28-2021 Basophils (Bld) [#/Vol] 0.03 10*3/uL Normal <0.11 [facility] Comment on above: Order Comment: Speci men Type: BLOOD SPECIMENOrdering Facility: [facility] Address: [address] [place] [address] Performed By: #### 5 7021-8 ####[facility] LABCLIA [id number] [place] [address] Basophils/100 WBC (Bld) 0.4 % Normal [facility] Comment on above: Order Comment: Speci men Type: BLOOD SPECIMENOrdering Facility: [facility] Address: [address] [place] [address] Performed By: #### 5 7021-8 ####[facility] LABCLIA [id number] [place] [address] Differential cell count method Nom (Bld) Auto Normal [facility] Comment on above: Order Comment: Speci men Type: BLOOD SPECIMENOrdering Facility: [facility] Address: [address] [place] [address] Performed By: #### 5 7021-8 ####[facility] LABCLIA [id number] [place] [address] Eosinophils (Bld) [#/Vol] 0.29 10*3/uL Normal <0.46 [facility] Comment on above: Order Comment: Speci men Type: BLOOD SPECIMENOrdering Facility: [facility] Address: [address] [place] [address] Performed By: #### 5 7021-8 ####[facility] LABCLIA [id number] [place] [address] Eosinophils/100 WBC (Bld) 3.7 % Normal [facility] Comment on above: Order Comment: Speci men Type: BLOOD SPECIMENOrdering Facility: [facility] Address: [address] [place] [address] Performed By: #### 5 7021-8 ####[facility] LABCLIA [id number] [place] [address] Erythrocyte distribution width (RBC) [Ratio] 13.2 % Normal 11.5-15.0 [facility] Comment on above: Order Comment: Speci men Type: BLOOD SPECIMENOrdering Facility: [facility] Address: [address] [place] [address] Performed By: #### 5 7021-8 ####[facility] LABCLIA [id number] [place] [address] Hematocrit (Bld) [Volume fraction] 37.6 % Normal 36.0-46.0 [facility] Comment on above: Order Comment: Speci men Type: BLOOD SPECIMENOrdering Facility: [facility] Address: [address] [place] [address] Performed By: #### 5 7021-8 ####[facility] LABCLIA [id number] [place] [address] Hemoglobin (Bld) [Mass/Vol] 12.1 g/dL Normal 11.5-15.5 [facility] Comment on above: Order Comment: Speci men Type: BLOOD SPECIMENOrdering Facility: [facility] Address: [address] [place] [address] Performed By: #### 5 7021-8 ####[facility] LABCLIA [id number] [place] [address] IMMATURE GRAN % 0.3 % Normal [facility] Comment on above: Order Comment: Speci men Type: BLOOD SPECIMENOrdering Facility: [facility] Address: [address] [place] [address] Performed By: #### 5 7021-8 ####[facility] LABCLIA [id number] [place] [address] IMMATURE GRAN ABS <0.03 Normal <0.10 [facility] Comment on above: Order Comment: Speci men Type: BLOOD SPECIMENOrdering Facility: [facility] Address: [address] [place] [address] Performed By: #### 5 7021-8 ####[facility] LABCLIA [id number] [place] [address] Lymphocytes (Bld) [#/Vol] 3.28 10*3/uL Normal 1.00-4.00 [facility] Comment on above: Order Comment: Speci men Type: BLOOD SPECIMENOrdering Facility: [facility] Address: [address] [place] [address] Performed By: #### 5 7021-8 ####[facility] LABIA [id number] [place] [address] Lymphocytes/100 WBC (Bld) 41.8 % Normal [facility] Comment on above: Order Comment: Speci men Type: BLOOD SPECIMENOrdering Facility: [facility] Address: [address] [place] [address] Performed By: #### 5 7021-8 ####[facility] LABCLIA [id number] [place] [address] MCH (RBC) [Entitic mass] 30.0 pg Normal 26.0-34.0 [facility] Comment on above: Order Comment: Speci men Type: BLOOD SPECIMENOrdering Facility: [facility] Address: [address] [place] [address] Performed By: #### 5 7021-8 ####[facility] LABCLIA [id number] [place] [address] MCHC (RBC) [Mass/Vol] 32.2 g/dL Normal 30.5-36.0 [facility] Comment on above: Order Comment: Speci men Type: BLOOD SPECIMENOrdering Facility: [facility] Address: [address] [place] [address] Performed By: #### 5 7021-8 ####[facility] LABIA [id number] [place] [address] MCV (RBC) [Entitic vol] 93.3 fL Normal 80.0-100.0 [facility] Comment on above: Order Comment: Speci men Type: BLOOD SPECIMENOrdering Facility: [facility] Address: [address] [place] [address] Performed By: #### 5 7021-8 ####[facility] LABIA [id number] [place] [address] Monocytes (Bld) [#/Vol] 0.46 10*3/uL Normal <0.87 [facility] Comment on above: Order Comment: Speci men Type: BLOOD SPECIMENOrdering Facility: [facility] Address: [address] [place] [address] Performed By: #### 5 7021-8 ####[facility] LABIA [id number] [place] [address] Monocytes/100 WBC (Bld) 5.9 % Normal [facility] Comment on above: Order Comment: Speci men Type: BLOOD SPECIMENOrdering Facility: [facility] Address: [address] [place] [address] Performed By: #### 5 7021-8 ####[facility] LABIA [id number] [place] [address] Neutrophils (Bld) [#/Vol] 3.77 10*3/uL Normal 1.45-7.50 [facility] Comment on above: Order Comment: Speci men Type: BLOOD SPECIMENOrdering Facility: [facility] Address: [address] [place] [address] Performed By: #### 5 7021-8 ####[facility] LABCLIA [id number] [place] [address] Neutrophils/100 WBC (Bld) 47.9 % Normal [facility] Comment on above: Order Comment: Speci men Type: BLOOD SPECIMENOrdering Facility: [facility] Address: [address] [place] [address] Performed By: #### 5 7021-8 ####[facility] LABCLIA [id number] [place] [address] Nucleated RBC (Bld) [#/Vol] 10*3/uL Normal <0.01 [facility] Comment on above: Order Comment: Speci men Type: BLOOD SPECIMENOrdering Facility: [facility] Address: [address] [place] [address] Performed By: #### 5 7021-8 ####[facility] LABCLIA [id number] [place] [address] Nucleated RBC/100 WBC (Bld) [Ratio] 0.0 /100 WBC Normal [facility] Comment on above: Order Comment: Speci men Type: BLOOD SPECIMENOrdering Facility: [facility] Address: [address] [place] [address] Performed By: #### 5 7021-8 ####[facility] LABCLIA [id number] [place] [address] Platelet mean volume (Bld) [Entitic vol] 10.6 fL Normal 9.0-12.7 [facility] Comment on above: Order Comment: Speci men Type: BLOOD SPECIMENOrdering Facility: [facility] Address: [address] [place] [address] Performed By: #### 5 7021-8 ####[facility] LABCLIA [id number] [place] [address] Platelets (Bld) [#/Vol] 259 10*3/uL Normal 150-400 [facility] Comment on above: Order Comment: Speci men Type: BLOOD SPECIMENOrdering Facility: [facility] Address: [address] [place] [address] Performed By: #### 5 7021-8 ####[facility] LABCLIA [id number] [place] [address] RBC (Bld) [#/Vol] 4.03 10*6/uL Normal 3.90-5.20 [facility] Comment on above: Order Comment: Speci men Type: BLOOD SPECIMENOrdering Facility: [facility] Address: [address] [place] [address] Performed By: #### 5 7021-8 ####[facility] LABCLIA [id number] [place] [id number] WBC (Bld) [#/Vol] 7.85 10*3/uL Normal 3.70-11.00 [facility] Comment on above: Order Comment: Speci men Type: BLOOD SPECIMENOrdering Facility: [facility] Address: [address] [place] [address] Performed By: #### 5 7021-8 ####[facility] LABCLIA [id number] [place] [address] Abs Immature Gran <0.03 <0.10 k/uL [facility] Basophils (Bld) [#/Vol] 0.03 10*3/uL <0.11 k/uL [facility] Basophils/100 WBC (Bld) 0.4 % [facility] Differential cell count method Nom (Bld) Auto [facility] Eosinophils (Bld) [#/Vol] 0.29 10*3/uL <0.46 k/uL [facility] Eosinophils/100 WBC (Bld) 3.7 % [facility] Erythrocyte distribution width (RBC) [Ratio] 13.2 % 11.5 - 15.0 % [facility] Hematocrit (Bld) [Volume fraction] 37.6 % 36.0 - 46.0 % [facility] Hemoglobin (Bld) [Mass/Vol] 12.1 g/dL 11.5 - 15.5 g/dL [facility] Immature Gran % 0.3 % [facility] Lymphocytes (Bld) [#/Vol] 3.28 10*3/uL 1.00 - 4.00 k/uL [facility] Lymphocytes/100 WBC (Bld) 41.8 % [facility] MCH (RBC) [Entitic mass] 30.0 pg 26.0 - 34.0 pg [facility] MCHC (RBC) [Mass/Vol] 32.2 g/dL 30.5 - 36.0 g/dL [facility] MCV (RBC) [Entitic vol] 93.3 fL 80.0 - 100.0 fL [facility] Monocytes (Bld) [#/Vol] 0.46 10*3/uL <0.87 k/uL [facility] Monocytes/100 WBC (Bld) 5.9 % [facility] Neutrophils (Bld) [#/Vol] 3.77 10*3/uL 1.45 - 7.50 k/uL [facility] Neutrophils/100 WBC (Bld) 47.9 % [facility] Nucleated RBC (Bld) [#/Vol] 10*3/uL <0.01 k/uL [facility] Nucleated RBC/100 WBC (Bld) [Ratio] 0.0 /100 WBC [facility] Platelet mean volume (Bld) [Entitic vol] 10.6 fL 9.0 - 12.7 fL [facility] Platelets (Bld) [#/Vol] 259 10*3/uL 150 - 400 k/uL [facility] RBC (Bld) [#/Vol] 4.03 10*6/uL 3.90 - 5.2 0 m/uL [facility] WBC (Bld) [#/Vol] 7.85 10*3/uL 3.70 - 11. 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 The tissue was not evaluated for flow cytometry to rule out a lymphoproliferative process. 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 Differential included mammary, skin, urothelial, pancreaticobiliary and pulmonary primaries. ER 0, DC 0, HER-2 negative by CAMERON. ? 2021 [...] today. Fo (more content not included)... Normal [facility] Comprehensive metabolic 2000 panelon 07-28-2021 Albumin [Mass/Vol] 4.2 g/dL Normal 3.9-4.9 [facility] Comment on above: Order Comment: Speci men Type: BLOOD SPECIMENOrdering Facility: [facility] Address: [address] [place] [address] Performed By: #### 2 4323-8 ####[facility] LABCLIA [id number] [place] [address] ALP [Catalytic activity/Vol] 72 U/L Normal 34-123 [facility] Comment on above: Order Comment: Speci men Type: BLOOD SPECIMENOrdering Facility: [facility] Address: [address] [place] [address] Performed By: #### 2 4323-8 ####[facility] LABCLIA [id number] [place] [address] ALT [Catalytic activity/Vol] 7 U/L Normal 7-38 [facility] Comment on above: Order Comment: Speci men Type: BLOOD SPECIMENOrdering Facility: [facility] Address: [address] [place] [address] Performed By: #### 2 4323-8 ####[facility] LABCLIA [id number] [place] [address] Anion gap [Moles/Vol] 7 mmol/L Low 9-18 [facility] Comment on above: Order Comment: Speci men Type: BLOOD SPECIMENOrdering Facility: [facility] Address: [address] [place] [address] Performed By: #### 2 4323-8 ####[facility] LABCLIA [id number] [place] [address] AST [Catalytic activity/Vol] 17 U/L Normal 13-35 [facility] Comment on above: Order Comment: Speci men Type: BLOOD SPECIMENOrdering Facility: [facility] Address: [address] [place] [address] Performed By: #### 2 4323-8 ####[facility] LABCLIA [id number] [place] [address] Bilirubin [Mass/Vol] 0.4 mg/dL Normal 0.2-1.3 [facility] Comment on above: Order Comment: Speci men Type: BLOOD SPECIMENOrdering Facility: [facility] Address: [address] [place] [address] Performed By: #### 2 4323-8 ####[facility] LABCLIA [id number] [place] [address] Calcium [Mass/Vol] 9.8 mg/dL Normal 8.5-10.2 [facility] Comment on above: Order Comment: Speci men Type: BLOOD SPECIMENOrdering Facility: [facility] Address: [address] [place] [address] Performed By: #### 2 4323-8 ####[facility] LABCLIA [id number] [place] [address] Chloride [Moles/Vol] 105 mmol/L Normal 97-105 [facility] Comment on above: Order Comment: Speci men Type: BLOOD SPECIMENOrdering Facility: [facility] Address: [address] [place], [place] [address] Performed By: #### 2 4323-8 ####[facility] LABCLIA [id number] [place] [address] CO2 [Moles/Vol] 26 mmol/L Normal 22-30 [facility] Comment on above: Order Comment: Speci men Type: BLOOD SPECIMENOrdering Facility: [facility] Address: [address] [place] [address] Performed By: #### 2 4323-8 ####[facility] LABCLIA [id number] [place] [address] Creatinine [Mass/Vol] 1.31 mg/dL High 0.58-0.96 [facility] Comment on above: Order Comment: Joseline beebe Type: BLOOD SPECIMENOrdering Facility: [facility] Address: [address] [place] [address] Performed By: #### 2 4323-8 ####[facility] LABCLIA [id number] [place] [address] ESTIMATED GLOMERULAR FILTRATION RATE 41 mL/min/1.73m??? Low >=60 [facility] Comment on above: Order Comment: Joseline beebe Type: BLOOD SPECIMENOrdering Facility: [facility] Address: [address] [place] [address] Result Comment: Nereyda mated Glomerular Filtration Rate [...] actual GFR. Performed By: #### 2 4323-8 ####[facility] LABCLIA [id number] [place] [address] Glucose [Mass/Vol] 129 mg/dL High 74-99 [facility] Comment on above: Order Comment: Joseline beebe Type: BLOOD SPECIMENOrdering Facility: [facility] Address: [address] [place] [address] Result Comment: The [place] Diabetes Association (ADA) provides guidance for cutoff [...] Standards of Medical Care in Diabetes 2016, [place] [employer]. Diabetes Care. 2016.39(Suppl 1). Performed By: #### 2 4323-8 ####[facility] LABCLIA [id number] [place] [address] Potassium [Moles/Vol] 4.6 mmol/L Normal 3.7-5.1 [facility] Comment on above: Order Comment: Speci men Type: BLOOD SPECIMENOrdering Facility: [facility] Address: [address] [place] [address] Performed By: #### 2 4323-8 ####[facility] LABCLIA [id number] [place] [address] Protein [Mass/Vol] 7.5 g/dL Normal 6.3-8.0 [facility] Comment on above: Order Comment: Speci men Type: BLOOD SPECIMENOrdering Facility: [facility] Address: [address] [place] [address] Performed By: #### 2 4323-8 ####[facility] LABCLIA [id number] [place] [address] Sodium [Moles/Vol] 138 mmol/L Normal 136-144 [facility] Comment on above: Order Comment: Speci men Type: BLOOD SPECIMENOrdering Facility: [facility] Address: [address] [place] [address] Performed By: #### 2 4323-8 ####[facility] LABCLIA [id number] [place] [address] Urea nitrogen [Mass/Vol] 22 mg/dL High 7-21 [facility] Comment on above: Order Comment: Speci men Type: BLOOD SPECIMENOrdering Facility: [facility] Address: [address] [place] [address] Performed By: #### 2 4323-8 ####[facility] LABCLIA [id number] [place] [id number] FLOW CYTOMETRY REFLEXon - CASE REPORT Normal [facility] Comment on above: Order Comment: Speci men Type: BLOOD SPECIMENOrdering Facility: [facility] Address: [address] [place] [address] Result Comment: Flow Cytometry Case: [id number] Authorizing Provider: Drake Anand MD Collected: 07/28/2021 02:03 PM Ordering Location: Laboratory Medicine Received: 07/29/2021 12:43 PM Pathologist: Tang Oquendo MD Specimen: BLOOD Performed By: #### F LOWREFLEX ####[facility] LABCLIA [id number] [address] GROSS DESCRIPTION A. BLOOD. Normal [facility] Comment on above: Order Comment: Speci men Type: BLOOD SPECIMENOrdering Facility: [facility] Address: [address] [place] [address] Result Comment: Rece ived 4ml of peripheral blood in EDTA. Performed By: #### F LOWREFLEX ####[facility] LABCLIA [id number] [address] STATES [facility] INTERPRETATION Normal [facility] Comment on above: Order Comment: Speci men Type: BLOOD SPECIMENOrdering Facility: [facility] Address: [address] [place] [address] Result Comment: Spec imen type: BLOOD CBC [...] Negative CD200 B-cells Positive FMC7 B-cells Positive [place]/Lambda B-cells Monotypic kappa Flow cytometric analysis of [...] its performance characteristics determined by [facility]???s [facility] Pathology and Laboratory Medicine [place] ([facility]). It has not been cleared or approved by the FDA. [facility] is regulated under CLIA as qualified to perform high-complexity testing. This test is used for clinical purposes. It should not be regarded as investigational or for research. CALI/JUAN MIGUEL 07/29/21 Diagnostic interpretation performed at [facility], [address] [place] [address] CLIA# [id number] Salvage Engineer: Bharath Light M.D. Performed By: #### F LOWREFLEX ####[facility] LABCLIA [id number] [address] PERIPHERAL BLOOD LOW GRADE L EUK MARKERS FCon 07-28-2021 FLOW CYTOMETRY ORDER STATUS See Results in chart under F case ID Normal [facility] Comment on above: Order Comment: Speci men Type: BLOOD SPECIMENOrdering Facility: [facility] Address: [address] [place] [address] Performed By: #### P BLGLY ####[facility] LABCLIA [id number] [address] CNPNon 07-22-2021 CNPN Telephone (HEMASA) -------- JOHANNY FORBES ([id number]) 1940 F Date Time Provider Department 07/22/21 [...] discuss further. She can be reached at [phone]. ROSA ELENA Esteban MD 07/22/2021 2:38 PM Signed I spoke with the patient regarding previous recommendations. I have asked her to come and see me in clinic next week at her convenience. PSS-could you please arrange for that? Thanks, MARIE Vallecillo Sec 07/22/2021 2:49 PM Signed Scheduled patient for next week for appointment spoke with daugther Allergies As of Date: 07/22/2021 Noted Allergy Reaction LISINOPRIL 04/05/2021 16 - Unknown PENICILLINS 04/05/2021 14 - Other: See Comments Comments: Dizzy and passed out Date Reviewed: 05/12/2021 Reviewed by: Grisel Schaffer - Fully Assessed Reason for Visit: Patient Question [0466] Prescriptions as of 07/22/2021 - aspirin 81 [...] Encounter Status:Closed by RU BLACKMAN [facility] CNPN Telephone (SERAFIN) -------- JOHANNY FORBES ([id number]) 1940 F Date Time Provider Department 07/01/21 RU BLACKMAN During your visit today, we recorded the following information about you: Ru Blackman RN 07/01/2021 2:07 PM Signed Received call from pt wanting to know if Dr Anand got her results for the genetic testing on her tumor? BHUPENDRAK: Any message for pt? Or she can be reached at [phone]. ROSA ELENA Esteban MD 07/01/2021 2:49 PM [...] metastatic to axillary lymp*04/12/2021 Encounter Status:Closed by UR BLACKMAN on 07/04/21 Normal [facility] MG MAMM DIAGNOSTIC 3D COY CA Don 05-03-2021 MG MAMM DIAGNOSTIC 3D COY CAD Patient: JOHANNY FORBES Exam Date: 05/03/2021 : 1940 Gender:F Ordering : DRAKE ANAND Admission #: [id number] Family : DR JORGE LUIS WHITEHEAD Order #: [id number] CLICK HERE TO VIEW EXAM RADIOLOGY REPORT [...] in the left axilla, significantly changed from 2012. This is previously been biopsied on January 24, 2021 and determined to be atypical cells. Bilateral breast MRI is recommended for further evaluation to evaluate primary carcinoma. RECOMMENDATIONS: BREAST MRI: BILATERAL BREASTS PLEASE NOTE: A NORMAL MAMMOGRAM DOES NOT EXCLUDE THE POSSIBILITY OF BREAST CANCER. A CLINICALLY SUSPICIOUS PALPABLE LUMP SHOULD BE BIOPSIED. Dictated by: Tenzin Ferguson MD on 05/03/2021 at 14:24 Approved by: Tenzin Ferguson MD on 05/03/2021 at 14:29 Normal [facility] POINT OF CARE GLUCOSEon 12-0 Glucose [Mass/Vol] 169 mg/dL Critically high 74-106 [facility] Comment on above: Performed By: #### P OCGLUC #### [facility] [address] [place] [address] Dr. Dontae Vallejo CBC AUTO DIFFon 03-14-2021 BASO # 0.1 103/ul Normal 0.0-0.1 [facility] Comment on above: Performed By: #### C BC #### [facility] [address] [place] [address] Dr. Dontae Vallejo Basophils/100 WBC (Bld) 0.6 % Normal 0.2-2.0 [facility] Comment on above: Performed By: #### C BC #### [facility] [address] [place] [address] Dr. Dontae Vallejo EO # 0.4 103/ul Normal 0.0-0.7 [facility] Comment on above: Performed By: #### C BC #### [facility] [address] [place] [address] Dr. Dontae Vallejo Eosinophils/100 WBC (Bld) 4.1 % Normal 0.9-7.0 [facility] Comment on above: Performed By: #### C BC #### [facility] [address] [place] [address] Dr. Dontae Vallejo Erythrocyte distribution width (RBC) [Ratio] 13.1 % Normal 11.0-15.0 [facility] Comment on above: Performed By: #### C BC #### [facility] [address] [place] [address] Dr. Dontae Vallejo Hematocrit (Bld) [Volume fraction] 37.1 % Normal 36.0-48.0 [facility] Comment on above: Performed By: #### C BC #### [facility] [address] [place] [address] Dr. Dontae Vallejo Hemoglobin (Bld) [Mass/Vol] 12.1 g/dL Normal 12.0-16.0 [facility] Comment on above: Performed By: #### C BC #### [facility] [address] [place] [address] Dr. Dontae Vallejo IG # 0.03 10e3/ul Normal 0.00-0.03 [facility] Comment on above: Performed By: #### C BC #### [facility] [address] [place] [address] Dr. Dontae Vallejo IG % 0.3 % Normal 0.0-0.5 [facility] Comment on above: Performed By: #### C BC #### [facility] [address] [place] [address] Dr. Dontae Vallejo LYMPH # 4.5 103/ul Critically high 1.2-3.8 [facility] Comment on above: Performed By: #### C BC #### [facility] [address] [place] [address] Dr. Dontae Vallejo Lymphocytes/100 WBC (Bld) 44.8 % Normal 20.5-60.0 [facility] Comment on above: Performed By: #### C BC #### [facility] [address] [place] [address] Dr. Dontae Vallejo MANUAL DIFF REQ NO Normal [facility] Comment on above: Performed By: #### C BC #### [facility] [address] [place] [address] Dr. Dontae Vallejo MCH (RBC) [Entitic mass] 30.3 pg Normal 26.7-34.0 [facility] Comment on above: Performed By: #### C BC #### [facility] [address] [place] [address] Dr. Dontae Vallejo MCHC (RBC) [Mass/Vol] 32.6 g/dL Normal 29.9-35.2 [facility] Comment on above: Performed By: #### C BC #### [facility] [address] [place] [address] Dr. Dontae Vallejo MCV (RBC) [Entitic vol] 92.8 fL Normal 81.0-99.0 [facility] Comment on above: Performed By: #### C BC #### [facility] [address] [place] [address] Dr. Dontae Vallejo MONO # 0.5 103/ul Normal 0.3-0.8 [facility] Comment on above: Performed By: #### C BC #### [facility] [address] [place] [address] Dr. Dontae Vallejo Monocytes/100 WBC (Bld) 5.3 % Normal 1.7-12.0 [facility] Comment on above: Performed By: #### C BC #### [facility] [address] [place] [address] Dr. Dontae Vallejo NEUT # 4.5 103/ul Normal 1.4-6.5 [facility] Comment on above: Performed By: #### C BC #### [facility] [address] [place] [address] Dr. Dontae Vallejo Neutrophils/100 WBC (Bld) 44.9 % Normal 43.0-75.0 [facility] Comment on above: Performed By: #### C BC #### [facility] [address] [place] [address] Dr. Dontae Vallejo Platelet mean volume (Bld) [Entitic vol] 9.8 fL Normal 9.5-13.5 [facility] Comment on above: Performed By: #### C BC #### [facility] [address] [place] [address] [address] Dontae Vallejo PLT 251 103/ul Normal 150-450 [facility] Comment on above: Performed By: #### C BC #### [facility] [address] [place] [address] [address] Dontae Vallejo RBC 4.00 106/ul Critically low 4.20-5.40 [facility] Comment on above: Performed By: #### C BC #### [facility] [address] [place] [address] [address] Dontae Vallejo WBC 10.1 103/ul Normal 4.0-11.0 [facility] Comment on above: Performed By: #### C BC #### [facility] [address] [place] [address] Dr. Dontae Vallejo Covid-19 PCR ([facility])on 02-15 SARS-CoV-2 (COVID-19) RNA DEIDRE+probe Ql (Unsp spec) Not detected Normal NOT DETECTED [facility] Comment on above: Result Comment: This test is not yet approved or cleared by the [place] FDA. When there are no FDA-approved or cleared tests available, and other criteria are met, FDA can make tests available under an emergency access mechanism called an Emergency Use Authorization (EUA). The EUA for this test is supported by the Control Area Operator of Health and Human Service's (HHS's) declaration [...] consistent with SARS-CoV-2. Performed By: #### C VDTBH #### [facility] [address] [place] [address] Dr. Dontae Vallejo PROF CHEM 8 (BAS METB)on Anion gap [Moles/Vol] 10.5 mmol/L Normal [facility] Comment on above: Performed By: #### B MP #### [facility] [address] [place] [address] [address] Dontae Vallejo Calcium [Mass/Vol] 9.5 mg/dL Normal 8.4-10.2 [facility] Comment on above: Performed By: #### B MP #### [facility] [address] [place] [address] [address] Dontae Vallejo Chloride [Moles/Vol] 104 mmol/L Normal 98-107 [facility] Comment on above: Performed By: #### B MP #### [facility] [address] [place] [address] [address] Dontae Vallejo CO2 [Moles/Vol] 26.8 mmol/L Normal 22.0-30.0 [facility] Comment on above: Performed By: #### B MP #### [facility] [address] [place] [address] Dr. Dontae Vallejo Creatinine [Mass/Vol] 1.51 mg/dL Critically high 0.52-1.04 [facility] Comment on above: Performed By: #### B MP #### [facility] [address] [place] [address] Dr. Dontae Vallejo EGFR-AF PAPUA NEW GUINEAN 40 mL/min/1.73m2 Critically low >=60 [facility] Comment on above: Performed By: #### B MP #### [facility] [address] [place] [address] [address] Dontae Vallejo EGFR-NON AF PAPUA [place] GUINEAN 33 mL/min/1.73m2 Critically low >=60 [facility] Comment on above: Performed By: #### B MP #### [facility] [address] [place] [address] [address] Dontae Vallejo Glucose [Mass/Vol] 145 mg/dL Critically high 74-106 [facility] Comment on above: Performed By: #### B MP #### [facility] [address] [place] [address] Dr. Dontae Vallejo Potassium [Moles/Vol] 4.3 mmol/L Normal 3.4-5.0 [facility] Comment on above: Performed By: #### B MP #### [facility] [address] [place], [place] [address] Dr. Dontae Vallejo Sodium [Moles/Vol] 137 mmol/L Normal 137-145 [facility] Comment on above: Performed By: #### B MP #### [facility] [address] [place], [place] [address] Dr. Dontae Vallejo Urea nitrogen [Mass/Vol] 29.0 mg/dL Critically high 7.0-17.0 [facility] Comment on above: Performed By: #### B MP #### [facility] [address] [place], [place] [address] Dr. Dontae Vallejo Urea nitrogen/Creatinin e [Mass ratio] 19.2 mg/mg Normal [facility] Comment on above: Performed By: #### B MP #### [facility] [address] [place], [place] [address] Dr. Dontae Vallejo US FINE NDL ASP W US GDNCEon 02-07-2021 US FINE NDL ASP W US GDNCE Begin Addendum #1 COLLECTED DATE/TIME: 01/24/2021 14:27 EDT Final Diagnosis Report for [facility] [place] (A/B) LEFT AXILLA MASS; FINE NEEDLE ASPIRATION: - ATYPICAL CELLS ARE PRESENT, SUSPICIOUS FOR MALIGNANCY, SEE NOTE NOTE: Cohesive groups of atypical cells are present, a carcinoma could not be excluded. Tissue biopsy is suggested if clinically indicated. Intradepartmental consultation was obtained with diagnostic concurrence. 02/07/2021 faxed to Kathie Larios NP. Sagrario verified report was present in office. Original [...] (FNA). 2. Pathology results are pending. Normal [facility] LEUKEMIA/LYMPHOMA PROFILEon 01-31-2021 ANALYSIS AND GATING STRATEGY Comment Normal [facility] Comment on above: Result Comment: 8 co geri analysis with 7-AAD, CD45/SSC gating Performed at: -Y Performed By: #### F LOWL #### [facility] [address] [place] [address] Dr. Dontae Vallejo ASSESSMENT OF LEUKOCYTES Comment [facility] Comment on above: Result Comment: Ghulam a and lambda staining cannot be interpreted due to nonspecific light chain binding. A subset of T cells show CD10 expression. CD4:CD8 ratio 2.3 Analysis of the viable lymphoid cells shows: B cells 18%, T cells 82% Performed at: -Y Performed By: #### F LOWL #### [facility] [address] [place] [address] Dr. Dontae Vallejo COMMENT Comment [facility] Comment on above: Result Comment: Each antibody in this assay was utilized to assess for potential abnormalities of studied cell populations or to characterize identified abnormalities. . This test was developed and its performance characteristics determined by [employer]. It has not been cleared or approved by the [place]. Food and Drug Administration. . The FDA has determined that such clearance or approval is not necessary. This test is used for clinical purposes. It should not be regarded as investigational or for research. Performed at: TG Performed By: #### F LOWL #### [facility] [address] [place] [address] Dr. Dontae Vallejo FLOW COMMENT Comment [facility] Comment on above: Result Comment: Ghulam a [...] #### [facility] [address] [place] [address] [address] Dontae Vallejo FLOW INTERPRETATION Comment Normal [facility] Comment on above: Result Comment: B ce ll clonality cannot be evaluated, T cells with CD10 expression in a small subset, low viability specimen, see comment. Performed at: -Y Performed By: #### F LOWL #### [facility] [address] [place] [address] [address] Dontae Vallejo PHENOTYPE CHART Comment Normal [facility] Comment on above: Result Comment: CD2 Normal CD3 Normal CD4 Normal CD5 Normal CD7 Normal CD8 Normal CD10 See Text CD11b Normal CD19 Normal CD20 Normal CD23 Normal CD38 Normal CD45 Normal CD56 Normal CD57 Normal [facility]-7 Normal HLA-DR Normal KAPPA See Text LAMBDA See Text Performed at: -Y Performed By: #### F LOWL #### [facility] [address] [place] [address] [address] Dontae Vallejo RESULTING PATH NAME Comment Normal [facility] Comment on above: Result Comment: Raul Oliveros M.D. Performed at: -Y Performed By: #### F LOWL #### [facility] [address] [place] [address] [address] Dontae Vallejo Specimen type Nom (Spec) Comment Normal [facility] Comment on above: Result Comment: Left axillary mass lymph node Performed at: -Y Performed By: #### F LOWL #### [facility] [address] [address] Dontae Vallejo VIABILITY Comment [facility] Comment on above: Result Comment: 22% This [...] Performed at: -Y Performed By: #### F LOW #### [facility] [address] [place] [address] Dr. Dontae Vallejo US EXT NON VASC [...] node versus malignancy. Electronically authenticated by: TENZIN FERGUSON Date: 2021-01-07 16:37 Normal [facility] CBC AUTO DIFFon 11-02-2020 BASO # 0.1 103/ul Normal 0.0-0.1 [facility] Comment on above: Performed By: #### C BC #### [facility] [address] [place] [address] Jose Bambi Basophils/100 WBC (Bld) 0.6 % Normal 0.2-2.0 [facility] Comment on above: Performed By: #### C BC #### [facility] [address] [place] [address] Jose Bambi EO # 0.4 103/ul Normal 0.0-0.7 [facility] Comment on above: Performed By: #### C BC #### [facility] [address] [place] [address] Jose Bambi Eosinophils/100 WBC (Bld) 3.7 % Normal 0.9-7.0 [facility] Comment on above: Performed By: #### C BC #### [facility] [address] [place], [place] [id number] Jose Bambi Erythrocyte distribution width (RBC) [Ratio] 13.2 % Normal 11.0-15.0 [facility] Comment on above: Performed By: #### C BC #### [facility] [address] [place], [place] [id number] Jose Bambi Hematocrit (Bld) [Volume fraction] 36.1 % Normal 36.0-48.0 [facility] Comment on above: Performed By: #### C BC #### [facility] [address] [place] [address] Jose Lacy Hemoglobin (Bld) [Mass/Vol] 11.7 g/dL Critically low 12.0-16.0 [facility] Comment on above: Performed By: #### C BC #### [facility] [address] [place] [address] Josevlad Lacy IG # 0.03 10e3/ul Normal 0.00-0.03 [facility] Comment on above: Performed By: #### C BC #### [facility] [address] [place] [address] Jose Lacy IG % 0.3 % Normal 0.0-0.5 [facility] Comment on above: Performed By: #### C BC #### [facility] [address] [place] [address] Jose Lacy LYMPH # 4.4 103/ul Critically high 1.2-3.8 [facility] Comment on above: Performed By: #### C BC #### [facility] [address] [place] [address] Jose Lacy Lymphocytes/100 WBC (Bld) 44.9 % Normal 20.5-60.0 [facility] Comment on above: Performed By: #### C BC #### [facility] [address] [place] [address] Jose Lacy MANUAL DIFF REQ NO Normal [facility] Comment on above: Performed By: #### C BC #### [facility] [address] [place], [place] [id number] Jose Lacy MCH (RBC) [Entitic mass] 30.5 pg Normal 26.7-34.0 [facility] Comment on above: Performed By: #### C BC #### [facility] [address] [place] [address] Jose Lacy MCHC (RBC) [Mass/Vol] 32.4 g/dL Normal 29.9-35.2 [facility] Comment on above: Performed By: #### C BC #### [facility] [address] [id number] Jose Lacy MCV (RBC) [Entitic vol] 94.0 fL Normal 81.0-99.0 [facility] Comment on above: Performed By: #### C BC #### [facility] [address] [id number] Jose Lacy MONO # 0.6 103/ul Normal 0.3-0.8 [facility] Comment on above: Performed By: #### C BC #### [facility] [address] [place], [place] [id number] Jose Lacy Monocytes/100 WBC (Bld) 5.7 % Normal 1.7-12.0 [facility] Comment on above: Performed By: #### C BC #### [facility] [address] [place] [address] Jose Millarden NEUT # 4.4 103/ul Normal 1.4-6.5 [facility] Comment on above: Performed By: #### C BC #### [facility] [address] [place], [place] [id number] Jose Lacy Neutrophils/100 WBC (Bld) 44.8 % Normal 43.0-75.0 [facility] Comment on above: Performed By: #### C BC #### [facility] [address] [place], [place] [id number] Jose Lacy Platelet mean volume (Bld) [Entitic vol] 11.3 fL Normal 9.5-13.5 [facility] Comment on above: Performed By: #### C BC #### [facility] [address] [place], [place] [address] Jose Bambi PLT 239 103/ul Normal 150-450 [facility] Comment on above: Performed By: #### C BC #### [facility] [address] [place], [place] [address] Jose Bambi RBC 3.84 106/ul Critically low 4.20-5.40 [facility] Comment on above: Performed By: #### C BC #### [facility] [address] [place], [place] [address] Jose Lacy WBC 9.8 103/ul Normal 4.0-11.0 [facility] Comment on above: Performed By: #### C BC #### [facility] [address] [place], [place] [address] Jose Lacy Vital Signs Date Time Vital Sign Value Performing Clinician Facility 05-14-2023 13:52-0500 Body height 160 cm Reinaldo Rogel MD Work Phone: [facility] 05-14-2023 13:52-0500 Body mass index (BMI) [Ratio] 26.57 kg/m2 Reinaldo Rogel MD Work Phone: [facility] 05-14-2023 13:52-0500 Body weight 68.04 kg Reinaldo Rogel MD Work Phone: [facility] 05-14-2023 13:52-0500 Diastolic blood pressure 70 mm[Hg] Reinaldo Rogel MD Work Phone: [facility] 05-14-2023 13:52-0500 Heart rate 68 /min Reinaldo Rogel MD Work Phone: [facility] 05-14-2023 13:52-0500 SaO2% (BldA) [Mass fraction] 98 % Reinaldo Rogel MD Work Phone: [facility] 05-14-2023 13:52-0500 Systolic blood pressure 122 mm[Hg] Reinaldo Rogel MD Work Phone: [facility] 03-12-2022 12:15-0500 Body height 160.02 cm Gabi Gaona Other [employer] Other 03-12-2022 12:15-0500 Body mass index (BMI) [Ratio] 26.57 kg/m2 Gabi Gaona Other [employer] Other 03-12-2022 12:15-0500 Body temperature 97.8 [degF] Gabi Candelaria Other [employer] Other 03-12-2022 12:15-0500 Body weight 68.04 kg Gabi Candelaria Other [employer] Other 03-12-2022 12:15-0500 Diastolic blood pressure 68 mm[Hg] Gabi Candelaria Other [employer] Other 03-12-2022 12:15-0500 Respiratory rate 18 /min Gabi Candelaria Other [employer] Other 03-12-2022 12:15-0500 SaO2% (BldA) [Mass fraction] 98 % Gabi Candelaria Other [employer] Other 03-12-2022 12:15-0500 Systolic blood pressure 123 mm[Hg] Gabi Candelaria Other [employer] Other 01-31-2022 15:09-0400 Body height 158.9 cm Simin Lama MD Work Phone: [facility] 01-31-2022 15:09-0400 Body temperature 97.3 [degF] Simin Lama MD Work Phone: [facility] 01-31-2022 15:09-0400 Body weight 70.03 kg Simin Lama MD Work Phone: [facility] 01-31-2022 15:09-0400 Diastolic blood pressure 65 mm[Hg] Simin Lama MD Work Phone: [facility] 01-31-2022 15:09-0400 Heart rate 62 /min Simin Lama MD Work Phone: [facility] 01-31-2022 15:09-0400 Respiratory rate 16 /min Simin Lama MD Work Phone: [facility] 01-31-2022 15:09-0400 SaO2% (BldA) [Mass fraction] 100 % Simin Lama MD Work Phone: [facility] 01-31-2022 15:09-0400 Systolic blood pressure 142 mm[Hg] Simin Lama MD Work Phone: [facility] 07-28-2021 14:24-0400 Body height 158.9 cm Drake Anand MD Work Phone: [facility] 07-28-2021 14:24-0400 Body temperature 97.9 [degF] Drake Anand MD Work Phone: [facility] 07-28-2021 14:24-0400 Body weight 69.94 kg Drake Anand MD Work Phone: [facility] 07-28-2021 14:24-0400 Diastolic blood pressure 74 mm[Hg] Drake Anand MD Work Phone: [facility] 07-28-2021 14:24-0400 Heart rate 56 /min Drake Anand MD Work Phone: [facility] 07-28-2021 14:24-0400 Respiratory rate 18 /min Drake Anand MD Work Phone: [facility] 07-28-2021 14:24-0400 SaO2% (BldA) [Mass fraction] 98 % Drake Anand MD Work Phone: [facility] 07-28-2021 14:24-0400 Systolic blood pressure 150 mm[Hg] Drake Anand MD Work Phone: [facility] Encounters Encounter Date Encounter Type Care Provider Facility Start: 05-14-2023 End: 05-14-2023 ambulatory REINALDO ROGEL Not Available Start: 05-14-2023 End: 05-14-2023 Patient encounter procedure Reinaldo Rogel MD Work Phone: [facility] Comment on above: Encounter for Medica re annual wellness exam (Primary Dx); Encounter for screening for other disorder; Advance directive discussed with patient; Screening for alcohol problem; Primary hypertension (CMS/HCC); Acute arterial ischemic stroke, multifocal, posterior circulation, right (CMS/HCC); 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; 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 (CMS/HCC); Hemiparesis of left nondominant side as late effect of cerebral infarction (CMS/HCC); 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 (CMS/HCC); Pulmonary hypertension, mild (CMS/HCC); Chronic kidney disease, stage 3b (HCC) (CMS/HCC); Type 2 diabetes mellitus with stage 3b chronic kidney disease, without long-term current use of insulin (HCC) (CMS/HCC); 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, left (CMS/HCC); Mixed dyslipidemia (CMS/HCC) Start: 04-03-2023 End: 04-03-2023 ambulatory REINALDO ROGEL Not Available Start: 03-16-2023 End: 03-16-2023 ambulatory LINETTE BLANKENSHIP Not Available Start: 05-15-2022 End: 05-15-2022 ambulatory Simin Lama Facility:[facility] Start: 05-15-2022 Telephone encounter Simin stanford MD Work Phone: [facility] Comment on above: Orders Start: 05-15-2022 End: 05-15-2022 ambulatory DO Jorge Luis Furlong Work Phone: [facility] Work Phone: Start: 05-15-2022 End: 05-15-2022 Patient encounter procedure DO Jorge Luis Furlong Work Phone: [facility] Work Phone: Start: 03-12-2022 End: 03-12-2022 ambulatory Gabi Gaona Other [employer] Other Start: 03-12-2022 Office outpatient ne w 20 minutes Gabi Goana [facility] Start: 02-13-2022 Telephone encounter Shiva Bess Hematology/Oncology Comment on above: Appointment Start: 01-31-2022 End: 01-31-2022 ambulatory SIMIN LAMA Facility:[facility] Start: 01-31-2022 End: 01-31-2022 ambulatory Simin Lama MD Work Phone: Hematology/Oncology Comment on above: 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, left (HCC) (Primary Dx); Lymphocytosis Start: 07-28-2021 End: 07-28-2021 Patient encounter procedure Drake Anand MD Work Phone: [facility] Start: 07-22-2021 Telephone encounter Ru Blackman RN Hematology/Oncology Comment on above: Patient Question Start: 05-03-2021 End: 05-04-[address] TENZIN FERGUSON Facility: Start: 04-12-2021 Telephone encounter Amarilys hutton PA-C Work Phone: Hematology/Oncology Comment on above: [facility] Start: 03-19-2021 Encounter for preprocedural cardiovascular examination DR TIM NIÑO [facility] Start: 03-19-2021 Encounter for preprocedural laboratory examination DR TIM NIÑO [facility] Start: 03-18-2021 End: 12-03-[address] TIM NIÑO Facility:[facility] Start: 03-15-[address] TIM NIÑO Fac ility:[facility] Start: 03-14-2021 End: 03-15-[address] TIM NIÑO Facility:[facility] Start: 03-14-2021 End: 03-15-2021 Encounter for preprocedural cardiovascular examination DR TIM NIÑO Facility:[facility] Start: 01-24-2021 End: 01-24-[address] KATHIE LARIOS Facility:[facility] Start: 01-07-2021 End: 01-08-[address] KATHIE LARIOS Facility:[facility] Start: 11-02-2020 End: 11-03-[address] DOCTOR ADAME Facility:[facility] Start: 07-08-2018 Patient encounter procedure RIAN LOPEZMaria Alejandra Facility:3 Procedures Date Procedure Procedure Detail Performing Clinician Start: 05-15-2022 Bilateral mammography Anai Beasley Jorge Luis Shearupali Work Phone: Start: 05-12-2021 Adult depression scr eening assessment Ru Blackman RN Start: 01-22-2019 Echocardiography Plan of Treatment Date Care Activity Detail Author Start: 03-19-2025 Glaucoma screening Diabetes: R etinopathy Screening [facility] Start: 07-28-2024 DIABETES SCREEN DIABETES SCREEN [facility] Start: 05-14-2024 Medicare Annual Well ness (AWV) Medicare Annual Wellness (AWV) [facility] Start: 04-11-2024 DIABETES SCREEN DIABETES SCREEN [facility] Start: 09-24-2023 End: 09-24-2023 Patient encounter procedure 09/24/2023 2:00 PM EDT Office Visit [facility] [address] [place] [address] Reinaldo Rogel MD [address] [place] [address] [facility] Start: 06-15-2023 Hemoglobin A1c measurement Diabetes: Hemoglobin A1C [facility] Start: 06-03-2022 End: 08-03-2022 CBC W Auto Differential panel - Blood CBC + DIFF Lab Routine 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, left (HCC) Expected: 06/03/2022 (Approximate), Expires: 08/03/2022 [facility] Work Phone: Comment on above: Expected: 06/03/2022 (Approximate), Expires: 08/03/2022 Start: 06-03-2022 End: 08-03-2022 Comprehensive metabolic 2000 panel - Serum or Plasma COMP METABOLIC PANEL Lab Routine 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, left (HCC) Expected: 06/03/2022 (Approximate), Expires: 08/03/2022 [facility] Work Phone: Comment on above: Expected: 06/03/2022 (Approximate), Expires: 08/03/2022 Start: 05-12-2022 Adult depression screening assessment DEPRESSION SCREENING [facility] Start: 04-16-2022 ADVANCE DIRECTIVE DISCUSSION ADVANCE DIRECTIVE DISCUSSION [facility] Start: 04-16-2022 DEPRESSION ASSESSMENT DEPRESSION ASS ESSMENT [facility] Start: 02-14-2022 End: 03-02-2023 Diagnostic mammography computer-aided detcj uni [facility] Radiology Routine 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, left (HCC) Expected: 02/14/2022, Expires: 03/02/2023 [facility] Work Phone: Comment on above: Expected: 02/14/2022 , Expires: 03/02/2023 Start: 12-15-2021 Influenza vaccination [facility] Start: 06-07-2021 COVID-19 VACCINE (4 - Booster for Pfizer series) COVID-19 VACCINE (4 - Booster for Pfizer series) [facility] Start: 04-16-2021 ADVANCE DIRECTIVE DISCUSSION ADVANCE DIRECTIVE DISCUSSION [facility] Start: 04-16-2021 DEPRESSION ASSESSMENT DEPRESSION ASS ESSMENT [facility] Start: 04-01-2021 COVID-19 VACCINE (4 - Booster for Pfizer series) COVID-19 VACCINE (4 - Booster for Pfizer series) [facility] Start: 2006 BONE DENSITY BONE DENSITY [facility] Start: 1991 SHINGRIX VACCINE (1 of 2) SHINGRIX VACCINE (1 of 2) [facility] Start: 1960 Urine microalbumin profile DTAP,TDAP,TD (1 - Tdap) [facility] End: 07-28-2022 CBC W Auto Differential panel - Blood CBC + DIFF Lab Routine 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, left (HCC) Every 3 months for 10 Occurrences starting 07/28/2021 until 07/28/2022, 1 completed [facility] Work Phone: Comment on above: Every 3 months for 1 0 Occurrences starting 07/28/2021 until 07/28/2022, 1 completed End: 07-28-2022 Comprehensive metabolic 2000 panel - Serum or Plasma COMP METABOLIC PANEL Lab Routine 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, left (HCC) Every 3 months for 10 Occurrences starting 07/28/2021 until 07/28/2022 [facility] Work Phone: Comment on above: Every 3 months for 1 0 Occurrences starting 07/28/2021 until 07/28/2022 End: 06-14-2023 Diagnostic mammography computer-aided detcj bi [facility] Radiology Routine 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, left (HCC) 1 Occurrences starting 05/15/2022 until 06/14/2023 [facility] Work Phone: Comment on above: 1 Occurrences starti ng 05/15/2022 until 06/14/2023 End: 08-27-2022 Screening mammography bi 2-view breast inc cad DANIELLE SCREENING Radiology Routine 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, left (HCC) 1 Occurrences starting 07/28/2021 until 08/27/2022 [facility] Work Phone: Comment on above: 1 Occurrences starti ng 07/28/2021 until 08/27/2022 End: 06-14-2023 Us breast uni real time with image limited [facility] Work Phone: Comment on above: 1 Occurrences starti ng 05/15/2022 until 06/14/2023 [facility] Immunizations Immunization Date Immunization Notes Care Provider Fa [facility] 01-23-2023 Influenza, High-dose Seasonal, Quadrivalent, Preservative Free Reinaldo Rogel MD Work Phone: [facility] 02-08-2022 Influenza, High-dose Seasonal, Quadrivalent, Preservative Free Reinaldo Rogel MD Work Phone: [facility] 02-04-2021 COVID-19 vaccine, ag e 12+ yr (PFIZER-BIONTECH - PURPLE TOP) Ru Blackman RN [facility] 01-19-2021 Influenza, High-dose Seasonal, Quadrivalent, Preservative Free Reinaldo Rogel MD Work Phone: [facility] 06-03-2020 COVID-19 vaccine, ag e 12+ yr (PFIZER-BIONTECH - PURPLE TOP) Ru Blackman RN [facility] 05-12-2020 COVID-19 vaccine, ag e 12+ yr (PFIZER-BIONTECH - PURPLE TOP) Ru Blackman RN [facility] 01-15-2020 influenza, seasonal, injectable Reinaldo Roegl MD Work Phone: [facility] 12-26-2019 influenza, high dose seasonal, preservative-free Ru Blackman RN [facility] 01-24-2018 influenza, high dose seasonal, preservative-free Ru Blackman RN [facility] 01-25-2017 influenza, high dose seasonal, preservative-free Ru Blackman RN [facility] 01-20-2015 influenza, injectabl e, quadrivalent, contains preservative Reinaldo Rogel MD Work Phone: [facility] 10-12-2014 pneumococcal conjuga te vaccine, 13 valent Ru Blackman RN [facility] 04-05-2010 pneumococcal polysaccharide vaccine, 23 valent Ru Blackman RN [facility] Payers Date Payer Category Payer Unknown [id number] 2022 Self-pay [id number] 2018 Unknown ANTHEM BLUE CROS S AND BLUE SHIELD ANTHEM MEDIBLUE O [id number] 2018-Present [phone] [address] [place] [address] [id number] 2018 Unknown [id number] 1959 Unknown [id number] 1941 Unknown [id number] 1941 Unknown [id number] 1941 Unknown [id number] 1941 Unknown [id number] 1941 Unknown [id number] 1941 Unknown [id number] 1941 Unknown [id number] 1941 Unknown [id number] 1941 Unknown [id number] 9 1941 Unknown [id number] 9 1941 Unknown [id number] 9 Unknown [id number] Social History Date Type Detail Facility Start: 04-05-2021 End: 11-29-2022 Tobacco smoking status NHIS Never smoked tobacco [facility] Start: 04-05-2021 End: 11-29-2022 Tobacco use and exposure Smokeless tobacco non-user [facility] Start: 05-12-2021 End: 05-24-2023 Alcohol intake Ex-drinker (finding) [facility] Start: 1940 Sex Assigned At Not on file [facility] Start: 07-18-2021 End: 01-31-2022 Exposure to SARS-CoV-2 (event) Not sure [facility] Start: 05-14-2023 End: 05-24-2023 Sex Assigned At [facility] [employer] Other Start: 1940 Sex Assigned At Female F [facility] History of tobacco use Passive smoker [facility] Start: 05-14-2023 End: 05-24-2023 History of Social function [facility] Start: 04-03-2023 Alcohol Comment caffeine intak e: 3-4 cups daily coffee [facility] Clinical Notes 03-18-2021 to 05-14-2023 Reinaldo Rogel MD - 05/14/2023 2:00 PM ESTTelephone Encounter - Ru Thomas RN - 05/15/2022 2:18 PM ESTTelephone Encounter - Honey Tucker - 05/15/2022 2:15 PM EST Note Date & Type Note Facility 05-14-2023 History of Presen t illness Narrative Images from the original note were not included. Subjective : Chief Complaint: Johanny Forbes is an 83 y.o. female here for an annual wellness visit. I have reviewed and reconciled the medication list with the patient today. Current Outpatient Medications Medication Sig Dispense Refill atorvastatin (Lipitor) 20 MG tablet Take 1 tablet (20 mg) by mouth at bedtime 90 tablet 1 carvedilol (Coreg) 3.125 MG tablet Take 1 tablet (3.125 mg) by mouth in the morning and 1 tablet (3.125 mg) in the evening. Take with meals. (Patient taking differently: Take 2 tablets by mouth in the morning and 2 tablets in the evening. Take with meals.) 180 tablet 0 clopidogrel (Plavix) 75 MG tablet Take 1 tablet (75 mg) by mouth in the morning. 90 tablet 1 ezetimibe (Zetia) 10 MG tablet Take 10 mg by mouth in the morning. levothyroxine (Synthroid) 25 MCG tablet Take 1 tablet (25 mcg) by mouth in the morning. Take on an empty stomach. 90 tablet 0 LOW-DOSE ASPIRIN PO Low-Dose Aspirin Multiple Vitamin (MULTIVITAMIN ADULT PO) Multivitamin valsartan (Diovan) 40 MG tablet Take 0.5 tablets (20 mg) by mouth in the morning. 45 tablet 1 mometasone (Elocon) 0.1 % cream Apply 1 application topically in the morning. No current facility-administered medications for this visit. Review of Systems, Unremarkable List of current healthcare providers: Patient Care Team: Amanda Briones MD as PCP - General (Family Medicine) Amanda Briones MD as PCP - [facility] Linette Blankenship NP as Nurse Practitioner (Family Medicine) Medicare Annual Visit Over the past 2 weeks, how often have you been bothered by any of the following problems? Little interest or pleasure in doing things: Not at all Feeling down, depressed, or hopeless: Not at all Patient Health Questionnaire-2 Score: 0 Over the past 2 weeks, how often have you been bothered by any of the following problems? Trouble falling or staying asleep, or sleeping too much: Several days Feeling tired or having little energy: Several days Poor appetite or overeating: Not at all Feeling bad about yourself - or that you are a failure or have let yourself or your family down: Not at all Trouble concentrating on things, such as reading the newspaper or watching television: Not at all Moving or speaking so slowly that other people could have noticed? Or the opposite - being so fidgety or restless that you have been moving around a lot more than usual.: Not at all Thoughts that you would be better off or hurting yourself in some way: Not at all Patient Health Questionnaire-9 Score: 2 Health Risk Assessment Form Do you need help eating, bathing, using the toilet, dressing, or getting around your home?: No Can you prepare your own meals?: Yes Can you do your own housework without help?: Yes Can you shop for groceries or clothes without help?: Yes Do you exercise for about 20 minutes 3 or more days a week?: Yes How confident are you that you can control and manage most of your health problems?: Very confident Can you mange your money, credit cards and accounts, pay bills and taxes?: Yes Vision Screening: Yes, patient sees regular head of cytogenetics/occupational therapy co director Hearing Screening: Has some hearing loss Cognitive Screening Self Assessment: No concerns rasied by family members, friends, or caretakers Three Word Registration: Steve Rivera, Finger Clock Drawing: Normal Clock - 2 Three Word Recall: All 3 words correct - 3 Total Score (0-5 Points): 5 Pain Assessment Pain Score: 4 Advance Care Planning Do you have a living will?: Yes Do you have a medical power of criminal defense attorney?: Yes Objective : BP 122/70 Pulse 68 Ht 5' 3 Wt 150 lb SpO2 98% BMI 26.57 kg/m No results found. Physical Exam The patient is pleasant and in no acute distress. The head is normocephalic and atraumatic. Both eyes appear grossly normal without obvious lid pathology or icterus. Both ears hearing is grossly intact. The neck is supple and trachea is midline. No masses are appreciated. The anterior cervical lymphatics demonstrates shoddy bilateral nontender lymphadenopathy. There is no supraclavicular lymphadenopathy. The heart is regular rate and rhythm without S3, S4. No murmur. The patient has normal respiratory pattern. The breath sounds are Diffusely decreased about symmetrical without evidence of wheezing, rhonchi, or rales. The chest is normal shape. The skin is warm and dry. The lower extremities have trace edema. Neurologic screening exam Does demonstrate some left sided arm/hand/leg weakness. The patient is alert. There is Minimal overt gross evidence of cognitive impairment The patient has good eye contact and speech is clear. Assessment/Plan : The following health maintenance schedule was reviewed with the patient and provided in printed form in the after visit summary: Health Maintenance Topic Date Due Medicare Annual Wellness (AWV) 05/17/2023 Diabetes: Hemoglobin A1C 06/15/2023 Diabetes: Retinopathy Screening 03/19/2025 Influenza Vaccine Completed Pneumococcal Vaccine: 65+ Years Completed Johanny was seen today for annual Evaluation in to establish his primary care. Diagnoses and all orders for this visit: Encounter for Medicare annual wellness exam (Primary) The patient is here for their Annual Medicare Wellness visit. Demographics were updated. Self-assessment was completed and reviewed. Past medical, family, and social history were updated. The medication list, including supplements being taken, was updated and reviewed by the doctor. A list of other current medical providers was established/updated. Time was spent discussing health maintenance issues, ordering proper testing, and a schedule was provided regarding recommended screening. We discussed safety issues and fall risk. Depression screening was completed and addressed. Fall screening was completed and addressed. Cognitive function was assessed by direct observation, cognitive screening, and assessment of ability to perform ADL's. The current BMI; and education given, and the BMI will continue to be monitored at future office visits. Major risk factors for chronic disease including family history were discussed and a list was provided with the care plan. Encounter for screening for other disorder Clinically insignificant depression screening Advance directive discussed with patient Patient voluntarily agreed to discuss advance care planning at today's wellness visit. We discussed that an advance directive is a legal document that only goes into effect if the patient is incapacitated and unable to speak for themselves. This would help us to decide what care the patient would want. We discussed emergency treatments to keep the patient alive such as CPR, ventilator use, artificial nutrition (tube feedings and IV nutrition) and comfort care, which is often done through hospice. We discussed the importance of providing a patient with the best possible quality of life. Various scenarios were discussed as examples of how patients would choose options. We discussed how patients could make their wishes known through a living will and durable power of criminal defense attorney for healthcare. We discussed telling tyler people about their advance directives such as close family members and a copy will be kept in the EHR. I discussed that they should also make me an emergency contact in their cell phone, and/or notify their POA that I have a copy of the advanced directives. Screening for alcohol problem Negative alcohol screening Primary hypertension (CMS/HCC) Chronic problem, stable, to goal. Followed longitudinally. Acute arterial ischemic stroke, multifocal, posterior circulation, right (CMS/HCC) This is a recent acute problem that she is still struggling some well. This is also why she would like to change to someone more local when driving to [place] is driving is a little more difficult for her at this point. We have other family members in our practice and this is why she is asked us to assume her primary care. 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 Followed longitudinally. 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 We will continue to follow this. She will continue to do her home exercise program. 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 Continue to follow longitudinally. Pulmonary hypertension, mild (CMS/HCC) Chronic problem, stable, asymptomatic, follow longitudinally. Chronic kidney disease, stage 3b (HCC) (CMS/HCC) Chronic problem, stable, asymptomatic, follow longitudinally. 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 Mixed dyslipidemia (CMS/HCC) Chronic problem, stable, to goal. Followed longitudinally. Electronically signed by Reinaldo Rogel MD on May 24, 2023 documented in this encounter [facility] 05-15-2022 Miscellaneous Notes Formattin g of this note might be different from the original. Received call from pt stating she is at [facility] and needs mammogram orders sent. Orders faxed as requested. Ru Thomas RN documented in this encounter [facility] 05-15-2022 Miscellaneous Notes Formattin g of this note might be different from the original. Faxed order to Chrissie May 15, 2022 2:15 PM Honey Tucker Faxed order to Chrissie May 15, 2022 2:15 PM Honey Tucker Ordered Patient is currently at [facility] for her Mammogram. Chrissie is calling to request a new order. 1) Diagnostic Bilateral Mammogram 2) US order (that way they have it if needed) Jyothi: If in agreement, can you please place order PERLITA and I will fax back to her? Thanks! Chrissie: Gladys. [phone] Fax. [phone] Honey Tucker documented in this encounter [facility] 03-12-2022 Evaluation note Encounter Date Diagnosis Assessment [...] no improvement in 2 to 3 days. [employer] Other 10-31-2022 Miscellaneous Notes* Telephone Encounter - [...] Reyes RN documented in this encounterC[facility]22 NoteHNO ID: [id number] Author: Simin Lama MD Service: ? Author Type: Physician Type: Progress Notes Filed: 01/31/2022 3:38 PM Note Text: PATIENT NAME: Johanny Forbes CLINIC NO.: [id number] ATTENDING PHYSICIAN: Simin Lama MD DATE OF SERVICE: January 31, 2022 Some of the elements of this note have been copied from my previous progress note dated 07/28/2021. All the information has been reviewed carefully. Dear Dr. Jorge Luis Whitehead, here is an update on a follow [...] metastatic breast carcinoma, 5 cm, ER 0, DC 0, HER-2 0 by IHC. The tissue was not evaluated for flow cytometry to rule out a lymphoproliferative process. 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 Differential included mammary, skin, urothelial, pancreaticobiliary and pulmonary primaries. ER 0, DC 0, HER-2 negative by CAMERON. 2021 PET [...] 04/11/2021 141 Chloride (mmol (more content not included)...[facility] 01-31-2022 Miscellaneous Notes* Telephone Encounter - Honey Tucker - 01/31/2022 4:[address] Lama, patient had a previous abnormal L Mammogram and never followed up. He would like L Mammogram completed now. Faxed order to [place] scheduling per patient's hospital request. Honey Tucker documented in this encounterC[facility] History of Present illness Narrative* Simin Lama MD - 01/31/2022 3:19 PM EDT PATIENT NAME: Johanny Forbes [facility] NO.: [id number] ATTENDING PHYSICIAN: Simin Lama MD DATE OF SERVICE: January 31, 2022 Some of the elements of this note have been copied from my previous progress note dated 07/28/2021. All the information has been reviewed carefully. Dear Dr. Jorge Luis Whitehead, here is an update on a follow [...] metastatic breast carcinoma, 5 cm, ER 0, DC 0, HER-2 0 by IHC. The tissue was not evaluated for flow cytometry to rule out a lymphoproliferative process. 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 Differential included mammary, skin, urothelial, pancreaticobiliary and pulmonary primaries. ER 0, DC 0, HER-2 negative by CAMERON. 2021 PET [...] 07/28/2021 3.28 1.00 - 4.00 k/uL Final Hunt% Date Value Ref Range Status 07/28/2021 5.9 % Final Abs Hunt Date Value Ref Range Status 07/28/2021 0.46 [...] conference on 04/28/2021, via telepathology, by Maira Saunders, [place] and [place], of the [facility] breast pathology department, who concur. Metastatic carcinoma [...] do not hesitate to contact me at [phone]. Simin Lama MD Hematology/Medical Oncology [facility] I spent a total of 30 minutes on the date of the service which included preparing to see the patient, [id number] patient care, completing clinical documentation, obtaining and/or reviewing separately obtained history, performing a medically appropriate examination, counseling and educating the pat ient/family/caregiver, and ordering medications, tests, or procedures. Medical Decision Making: Medical Decision Making Level: 1 - N/A CC: DO Jorge Luis Webster DO documented in this encounterC[facility]04-14-2022 NoteHNO ID: [id number] Author: Drake Anand MD Service: ? Author Type: Physician Type: Progress Notes Filed: 07/28/2021 3:29 PM Note Text: BREAST ONCOLOGY FOLLOW UP Elements in this clinic note that are critical to medical decision making have been carefully reviewed and included from my prior clinic note dated: May 12, 2021 July 28, 2021 PCP and other physicians involved in patient's care: Jorge Luis Whitehead (PCP), Tim Niño, Campbell Henson DIAGNOSIS: Axillary [...] metastatic breast carcinoma, 5 cm, ER 0, DC 0, HER-2 0 by IHC. The tissue was not evaluated for flow cytometry to rule out a lymphoproliferative process. 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 Differential included mammary, skin, urothelial, pancreaticobiliary and pulmonary primaries. ER 0, DC 0, HER-2 negative by CAMERON. ? 2021 [...] date of the (more content not included)... [facility]04-14-2022 History of Present illness Narrative* Drake Anand MD - 07/28/2021 3:18 PM EDT BREAST ONCOLOGY FOLLOW UP Elements in this clinic note that are critical to medical decision making have been carefully reviewed and included from my prior clinic note dated: May 12, 2021 July 28, 2021 PCP and other physicians involved in patient's care: Jorge Luis Whitehead (PCP), Tim Niño, Campbell Henson DIAGNOSIS: Axillary cancer of unknown primary ONCOLOGIC HISTORY AND TREATMENT DETAILS: Presented in January 2021 with left-sided axillary swelling over 2 to 3 weeks. This was confirmed by an ultrasound to be a 6.9 cm mass. FNA was nondiagnostic. March 18, 2021 left axillary node excision (Dr. Niño); path consistent with metastatic breast carcinoma, 5 cm, ER 0, DC 0, HER-2 0 by IHC. The tissue was not evaluated for flow cytometry to rule out a lymphoproliferative process. 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 Differential included mammary, skin, urothelial, pancreaticobiliary and pulmonary primaries. ER 0, DC 0, HER-2 negative by CAMERON. 2021 PET [...] which included preparing to see the patient, [id number]-[id number] patient care, completing clinical documentation, obtaining and/or reviewing separately obtained history, counseling and educating the patient/family/caregiver, ordering medications, herlinda ts, or procedures, independently interpreting results (not separately reported) and communicating results to the patient/family/caregiver. documented in this encounterC[facility] Miscellaneous Notes* Telephone Encounter - Thao Alanis - 07/22/2021 2:48 PM EDT Scheduled patient [...] discuss further. She can be reached at [phone]. Ru Blackman RN documented in this encounterC[facility]12-[facility] Miscellaneous Notes* Telephone Encounter - Amarilys Murry PA-C - 04/12/2021 4:42 PM EST Request received from [facility] for additional diagnosis codes for MRI breast because diagnosis providedis not a covered diagnosis. Will send with additional diagnosis codes. Will try C50.912 and C77.3. (carcinoma of breast metastatic to left axillary node) Amarilys Murry PA-C documented in this encounterC[facility]21 NoteOPERATIVE NOTE OPERATION DATE: 03-18-21 ANESTHETIC:LMA. RIVET HOLE MACHINE OPERATOR:Loraine Tim, CUT OFF SAW OPERATOR METAL PREOPERATIVE DIAGNOSIS:Left axillary mass. POSTOPERATIVE DIAGNOSIS: Same. [...] taken to the PACU in fair condition. [facility] Signed and Approved by: DR TIM NIÑO . 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, left (HCC)- Primary [facility] noteNo assessment information availableHock[facility] Work Phone: Evaluation note* Diagnosis Encounter for Medicare annual wellness exam- Primary Encounter for screening for other disorder Advance directive discussed with patient Screening for alcohol problem Screening for alcoholism Primary hypertension (CMS/HCC) Unspecified essential hypertension Acute arterial ischemic stroke, multifocal, posterior circulation, right (CMS/HCC) 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 (CMS/HCC) 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 (CMS/HCC) Pulmonary hypertension, mild (CMS/HCC) Other chronic pulmonary heart diseases Chronic kidney disease, stage 3b (HCC) (CMS/HCC) Type 2 diabetes mellitus with stage 3b chronic kidney disease, without long-term current use of insulin (HCC) (CMS/HCC) 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, left (CMS/HCC) Mixed dyslipidemia (CMS/HCC) documented in this encounter [facility] Diagnostic Procedure Only (Routine) - Pending Review Specialty Diagnoses / Procedures Referred By Jerry hernandes Referred To Contact [facility] Diagnoses 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, left (HCC) Procedures DANIELLE SCREENING SCREENING MAMMOGRAPHY BI 2-VIEW BREAST INC CAD Drake Anand MD [address] [place] [address] [place] [address] [facility] [address] [place] [address] Referral ID Status Reason Start Date Expiration Date Visits Requested Visits Authorized [id number] Pending Review Auto-Generat ed Referral 07/28/2021 08/27/2022 1 1 [facility] for referral (narrative)* Diagnostic Procedure Only (Routine) - Pending Review Specialty Diagnoses / Procedures Referred By Jerry hernandes Referred To Contact [facility] Diagnoses 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, left (HCC) Procedures DANIELLE DIAGNOSTIC LT DIAGNOSTIC MAMMOGRAPHY COMPUTER-AIDED DETCJ Simin Montano MD [address] [place] [address] [place] [address] [facility] [address] [place] [address] Referral ID Status Reason Start Date Expiration Date Visits Requested Visits Authorized [id number] Pending Review Auto-Generat ed Referral 02/14/2022 03/02/2023 1 1 [facility] for referral (narrative)* Diagnostic Procedure Only (Routine) - Pending Review Specialty Diagnoses / Procedures Referred By Contac t Referred To Contact [facility] Diagnoses 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, left (HCC) Procedures US BREAST LTD RT US BREAST UNI REAL TIME WITH IMAGE LIMITED Simin Lama MD [address] [place] [address] [facility] [address] [place] [address] Referral ID Status Reason Start Date Expiration Date Visits Requested Visits Authorized [id number] Pending Review Auto-Generat ed Referral 05/15/2022 06/14/2023 1 1 * Diagnostic Procedure Only (Routine) - Pending Review Specialty Diagnoses / Procedures Referred By Contac t Referred To Contact [facility] Diagnoses 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, left (HCC) Procedures US BREAST LTD LT US BREAST UNI REAL TIME WITH IMAGE LIMITED Simin Lama MD [address] [place] [address] [facility] [address] [place] [address] Referral ID Status Reason Start Date Expiration Date Visits Requested Visits Authorized [id number] Pending Review Auto-Generat ed Referral 05/15/2022 06/14/2023 1 1 * Diagnostic Procedure Only (Routine) - Pending Review Specialty Diagnoses / Procedures Referred By Contac t Referred To Contact [facility] Diagnoses 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, left (HCC) Procedures DANIELLE DIAGNOSTIC BILAT DIAGNOSTIC MAMMOGRAPHY COMPUTER-AIDED DETCJ BI Simin Lama MD [address] [place] [address] [facility] [address] [place] [address] Referral ID Status Reason Start Date Expiration Date Visits Requested Visits Authorized [id number] Pending Review Auto-Generat ed Referral 05/15/2022 06/14/2023 1 1 [facility] Summary Purpose Family History No Family History Records FoundNo Family History Records FoundNo Family History Records FoundNo Family History Records FoundNo Family History Records FoundNo Family History Records FoundNo Family History Records Found Advance Directives Advance Directive Response Recorded Date/ Time Advance Directives No May 04, 2022 12:47pm Chief Complaint and Reason for Visit Chief Complaint C77.3 Additional Source Comments INFORMATION SOURCE (unrecogn ized section and content) DATE CREATED AUTHOR 06/27/2018 [facility] DATE CREATED AUTHOR AUTHOR'S ORGANIZ ATION [facility] DATE CREATED AUTHOR AUTHOR'S ORGANIZ ATION 05/07/2021 [facility] DATE CREATED AUTHOR AUTHOR'S ORGANIZ ATION 12/11/2021 [facility] DATE CREATED AUTHOR AUTHOR'S ORGANIZ ATION 05/16/2022 [facility] DATE CREATED AUTHOR AUTHOR'S ORGANIZ ATION 05/24/2022 [facility] DATE CREATED AUTHOR AUTHOR'S ORGANIZ ATION 05/15/2023 [facility] EPIC Source Comments (unrecognize d section and content) In the event this informatio n is protected by the Federal Confidentiality of Alcohol and Drug Abuse Patient Records regulations: The Federal rules restrict any use of the information to criminally investigate or prosecute any alcohol or drug abuse patient.[facility] RehabilitationIn the event this information is protected by the Federal Confidentiality of Alcohol and Drug Abuse Patient Records regulations: The Federal rules restrict any use of the information to criminally investigate or prosecute any alcohol or drug abuse patient.[facility] RehabilitationIn the event this information is protected by the Federal Confidentiality of Alcohol and Drug Abuse Patient Records regulations: The Federal rules restrict any use of the information to criminally investigate or prosecute any alcohol or drug abuse patient.[facility] RehabilitationIn the event this information is protected by the Federal Confidentiality of Alcohol and Drug Abuse Patient Records regulations: The Federal rules restrict any use of the information to criminally investigate or prosecute any alcohol or drug abuse patient.[facility] RehabilitationIn the event this information is protected by the Federal Confidentiality of Alcohol and Drug Abuse Patient Records regulations: The Federal rules restrict any use of the information to criminally investigate or prosecute any alcohol or drug abuse patient.[facility] RehabilitationIn the event this information is protected by the Federal Confidentiality of Alcohol and Drug Abuse Patient Records regulations: The Federal rules restrict any use of the information to criminally investigate or prosecute any alcohol or drug abuse patient.[facility] RehabilitationIn the event this information is protected by the Federal Confidentiality of Alcohol and Drug Abuse Patient Records regulations: The Federal rules restrict any use of the information to criminally investigate or prosecute any alcohol or drug abuse patient.[facility] RehabilitationIn the event this information is protected by the Federal Confidentiality of Alcohol and Drug Abuse Patient Records regulations: The Federal rules restrict any use of the information to criminally investigate or prosecute any alcohol or drug abuse patient.[facility] Reason for Visit (unrecogniz ed section and content) Reason Comments Patient Question Reason Comments Breast Cancer Reason Comments Shade Cutter - Other Reason Comments Breast Cancer Follow up Reason Comments Appointment Reason Comments Orders Reason Comments Orders Reason Comments Annual Exam Care Teams (unrecognized sec tion and content) Drying Room Supervisor Relationship Specialty Start Date End Date Jorge Luis Whitehead [address] [facility] [place] [address] PCP - General Family Practice 03/28/21 Drying Room Supervisor Relationship Specialty Start Date End Date Jorge Luis Whitehead [address] [place] [address] PCP - General Family Practice 03/28/21 Drying Room Supervisor Relationship Specialty Start Date End Date Jorge Luis Whitehead, DO [address] [place] [address] PCP - General Family Practice 03/28/21 Drying Room Supervisor Relationship Specialty Start Date End Date Jorge Luis Whitehead, DO [address] [place] [address] PCP - General Family Medicine 03/28/21 Drying Room Supervisor Relationship Specialty Start Date End Date Jorge Luis Whitehead, DO [address] [place] [address] PCP - General Family Medicine 03/28/21 Drying Room Supervisor Relationship Specialty Start Date End Date Jorge Luis Whitehead, DO [address] [place] [address] PCP - General Family Medicine 03/28/21 Drying Room Supervisor Relationship Specialty Start Date End Date Jorge Luis Whitehead, DO [address] [place] [address] PCP - General Family Medicine 03/28/21 Drying Room Supervisor Relationship Specialty Start Date End Date Jorge Luis Whitehead, DO [address] [place] [address] PCP - General Family Medicine 03/28/21 Team Status: Inactive Member Role Status Dates Jorge Luis Whitehead DO Primary Care Provider Active Simin Lama MD Attending Provider Active Team Status: Active Member Role Status Dates Jorge Luis Whitehead DO Primary Care Provider Active Drying Room Supervisor Relationship Specialty Start Date End Date Amanda Briones MD [address] [facility] [place], [place] [id number] PCP - General Family Medicine 09/07/22 Amanda Briones MD [address] [facility] [place], [place] [id number] PCP - Devoted 04/16/23 Linette Blankenship NP [address] [facility] [place], [place] [id number] Nurse Practitioner Family Medicine 09/07/22 Goals (unrecognized section and content) Goals may [...] BE BASED ON THE PRIMARY CLINICAL RECORDS. [employer] provides no warranty or guarantee of the accuracy or completeness of information in this document.
[2023-06-01 01:10] LABS: Basophils Absolute Auto 0.1 10^3/uL (0.0-0.1); Basophils Percent Auto 0.3 % (0.2-2.0); Eosinophils Absolute Auto 0.1 10^3/uL (0.0-0.7); Eosinophils Percent Auto 0.5 % (0.9-7.0); Hematocrit 38.6 % (36.0-48.0); Hemoglobin 12.5 g/dL (12.0-16.0); Immature Granulocytes Abs Auto 0.05 10^3/uL (0.00-0.03); Immature Granulocytes Pct Auto 0.3 % (0.0-0.5); Lymphocytes Percent Auto 13.5 % (20.5-60.0); Mean Corpuscular HGB Conc 32.4 g/dL (29.9-35.2); Mean Corpuscular Hemoglobin 30.8 pg (26.7-34.0); Mean Corpuscular Volume 95.1 fL (81.0-99.0); Mean Platelet Volume 10.6 fL (9.5-13.5); Monocytes Absolute Auto 0.4 10^3/uL (0.3-0.8); Monocytes Percent Auto 2.5 % (1.7-12.0); Neutrophils Absolute Auto 12.2 10^3/uL (1.4-6.5); Neutrophils Percent Auto 82.9 % (43.0-75.0); Platelet Count 237 10^3/uL (150-450); Red Blood Count 4.06 10^6/uL (4.20-5.40); Red Cell Distribution Width 13.3 % (11.0-15.0); White Blood Count 14.8 10^3/uL (4.0-11.0)
[2023-06-01] MEDS: 0.9 % SODIUM CHLORIDE 500 ML IV (01:18)
[2023-06-01] MEDS: FAMOTIDINE/PF 20 MG/2 ML VIAL IV (01:19)
[2023-06-01] MEDS: ONDANSETRON PF 4 MG/2 ML VIAL IV (01:19)
[2023-06-01 01:22] LABS: Alanine Aminotransferase 19 U/L (14-59); Albumin Globulin Ratio 0.8; Albumin Level 3.4 g/dL (3.4-5.0); Alkaline Phosphatase 76 U/L (46-116); Anion Gap 15.5; Aspartate Amino Transferase 28 U/L (15-37); BUN Creatinine Ratio 22.6; Bilirubin Total 0.6 mg/dL (0.2-1.0); Calcium 9.1 mg/dL (8.5-10.1); Carbon Dioxide 22.1 mmol/L (21.0-32.0); Chloride 106 mmol/L (98-107); Estimated GFR (African America 45 (>=60); Estimated GFR (Non-African Ame 37 (>=60); Globulin 4.5 g/dL; Glucose 213 mg/dL (74-106); Potassium 4.6 mmol/L (3.5-5.1); Sodium 139 mmol/L (136-145); Total Protein 7.9 g/dL (6.4-8.2)
[2023-06-01 01:24] LABS: Lactate/Lactic Acid 1.2 mmol/L (0.4-2.0)
[2023-06-01 01:25] LABS: Troponin I High Sensitivity 7.6 pg/mL (4.0-51.3)
--- NOTE | 2023-06-01 01:54 | ED_ITS ---
HPI - General Adult General Chief complaint: Abdominal Pain Stated complaint: ABD PAIN Time Seen by Provider: 06/01/23 00:43 Source: patient Mode of arrival: walk-in Limitations: no limitations History of Present Illness HPI narrative: 83-year-old female with a history of coronary artery disease status post myocardial infarction 6 or 7 years ago and CVA who is on Plavix presents for evaluation of nausea, vomiting and diarrhea. The patient states that she started feeling uneasy and her stomach earlier this evening. She has had several episodes of diarrhea. Tonight she became nauseated and had dry heaves. At the time that she was having dry heaves she became dizzy and lightheaded and diaphoretic. She did not pass out. She did not end up vomiting. She has not had a fever but has had chills all day. She denies any chest pain. She denies any headache or sore throat. She has not had any upper respiratory symptoms. She has generalized abdominal cramping but no focal pain. Related Data Home Medications Medication Instructions Recorded Confirmed carvedilol 3.125 mg tablet 3.125 mg PO BID 03/21/23 06/01/23 levothyroxine 25 mcg tablet 25 mcg PO QDAY 03/21/23 06/01/23 valsartan 40 mg tablet 20 mg PO QDAY 03/21/23 06/01/23 Previous Rx's Medication Instructions Recorded aspirin 81 mg chewable tablet 81 mg PO DAILY #30 tabs 03/22/23 atorvastatin 20 mg tablet (Lipitor) 20 mg PO DAILY #30 tabs 03/22/23 clopidogrel 75 mg tablet (Plavix) 75 mg PO DAILY #30 tabs 03/22/23 Allergies Allergy/AdvReac Type Severity Reaction Status Date / Time Penicillins Allergy Severe Verified 06/01/23 00:36 lisinopril AdvReac Severe Verified 06/01/23 00:36 Review of Systems ROS Status of ROS 10 or more systems reviewed and unremark able except as noted in history and below [facility] Medical History (Updated 06/01/23 @ 04:25 by Mary Garner MD) Type 2 diabetes mellitus ?E11.9 - Type 2 diabetes mellitus without complications (ICD-10) Lacunar stroke, acute ?I63.81 - Other cerebral infarction due to occlusion or stenosis of small artery (ICD-10) Cerebrovascular accident ?I63.9 - Cerebral infarction, unspecified (ICD-10) HTN (hypertension) ?I10 - Essential (primary) hypertension (ICD-10) Hypothyroid ?E03.9 - Hypothyroidism, unspecified (ICD-10) CAD (coronary artery disease) ?I25.10 - Atherosclerotic heart disease of [place] coronary artery without angina pectoris (ICD-10) HLD (hyperlipidemia) ?E78.5 - Hyperlipidemia, unspecified (ICD-10) Cataract (lens) fragments in eye following cataract surgery, bilateral ?H59.023 - Cataract (lens) fragments in eye following cataract surgery, bilateral (ICD-10) Cataracts, bilateral ?H26.9 - Unspecified cataract (ICD-10) Chronic kidney disease, stage 3 unspecified ?N18.30 - Chronic kidney disease, stage 3 unspecified (ICD-10) Borderline diabetes mellitus ?R73.03 - Prediabetes (ICD-10) Myocardial infarct, old ?I25.2 - Old myocardial infarction (ICD-10) Surgical History History of appendectomy ?Z90.49 - Acquired absence of other specified parts of digestive tract (ICD- 10) History of right heart catheterization ?Z98.890 - Other specified postprocedural states (ICD-10) H/O lumpectomy ?Z98.890 - Other specified postprocedural states (ICD-10) Family History Brother Family history of diabetes mellitus Family history of myocardial infarction Mother Family history of diabetes mellitus Family history of myocardial infarction Sister Family history of myocardial infarction Family history of stroke Daughter Family history of cancer Uncle Family history of CHF (congestive heart failure) Father Family history of COPD (chronic obstructive pulmonary disease) Social History Within the past year, how often did you have a drink containing alcohol: never Score interpretation: A score less than 3 is consistent with normal alcohol consumption. 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 Known occupational exposures/hazards: No Highest level of school completed/degree received: some college, no degree Do you want help with school or training: No Are you now , , , , never or living with a partner: In a typical week, how many times do you talk on the telephone with family, friends, or neighbors: 3 or more times per week How often do you get together with friends or relatives: 3 or more times per week Little interest or pleasure in doing things: not at all Feeling down, depressed, or hopeless: not at all Feel stressed/tense/nervous/anxious/difficulty sleeping: not at all Life stressors: recent of family or friend Life stressor details: daughter last year Do you think of yourself as: straight/heterosexual Gender Identity: female Exam Narrative Exam Narrative: Nurses note and vital signs reviewed and patient is not hypoxic. Blood pressure is noted to be elevated at 175/79, she is afebrile with a normal pulse General: Alert, oriented, pale elderly female, no respiratory distress, no active vomiting Skin: pale, There is no rash noted. Head: Normocephalic, atraumatic Eye: Normal conjunctiva, no drainage, EOMI. PERRL Ears, Nose, Mouth, and Throat: oral mucosa is moist. Cardiovascular: Regular Rate and Rhythm S1S2, pulses are brisk and equal and regular bilaterally without arrythmia or ectopy Respiratory: Patient is in no distress, no accessory muscle use, lungs are clear to auscultation, no wheezing, rales or rhonchi Back: non-tender, no CVA tenderness bilaterally to percussion. GI: Normal bowel sounds, no tenderness to palpation, no masses appreciated. No rebound, guarding, or rigidity noted. Musculoskeletal: The patient has no evidence of calf tenderness, no pitting edema, symmetrical pulses noted bilaterally Neurological: A&O x4, normal speech Psychiatric: Cooperative Constitutional Vital Signs, click to edit/add: Last Vital Signs Temp 97.9 F 06/01/23 00:36 Pulse 76 06/01/23 06:01 Resp 17 06/01/23 06:01 BP 134/66 06/01/23 05:30 Pulse Ox 99 06/01/23 06:01 O2 Del Method Room Air 06/01/23 00:36 Course Vital Signs Vital signs: Vital Signs Temperature 97.9 F 06/01/23 00:36 Pulse Rate 61 06/01/23 00:36 Respiratory Rate 18 06/01/23 00:36 Blood Pressure 196/90 H 06/01/23 00:36 Pulse Oximetry 99 06/01/23 00:36 Oxygen Delivery Method Room Air 06/01/23 00:36 Temperature 97.9 F 06/01/23 00:36 Pulse Rate 76 06/01/23 06:01 Respiratory Rate 17 06/01/23 06:01 Blood Pressure 134/66 06/01/23 05:30 Pulse Oximetry 99 06/01/23 06:01 Oxygen Delivery Method Room Air 06/01/23 00:36 Medical Decision Making MDM Narrative Medical decision making narrative: This 83-year-old female with a history of coronary artery disease and CVA presents for evaluation of chills with nausea, dry heaves and diarrhea. At that time she was having nausea and dry heaves she became weak and diaphoretic. She did not pass out. She has no chest pain or shortness of breath complaints today. She does complain of some pain in her left lower quadrant. She has been having episodes of diarrhea throughout the day. She denies any blood in her stool. She did not vomit just became nauseated and had dry heaves. On arrival she was taken to room 9. An EKG was done. The initial EKG is difficult to interpret, it appears to be a rate controlled atrial fibrillation with flutter waves. I listened to her heart and took her pulse myself with no irregularity appreciated and no ectopy appreciated. Repeat EKG done later in the course of her treatment was a sinus rhythm with sinus arrhythmia at 59 bpm. 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 She does not have any neurostimulator devices or pacemaker. She was medicated with IV fluids, Zofran and Pepcid. Labs are reviewed. She has an elevated white count of 14.8., Normal hemoglobin, normal lactic acid, normal electrolytes and normal LFTs. Troponin is normal. On reevaluation she states she is still having some left lower quadrant abdominal discomfort and was sent for a CT scan of the abdomen and pelvis without contrast due to her history of renal insufficiency. CT scan of abdomen and pelvis shows a diffuse long segment of colonic wall thickening and mild pericolonic inflammatory stranding from the mid transverse colon to the sigmoid reflecting underlying infectious or inflammatory colitis less likely ischemic colitis. It shows liquid stool within the large distal ball reflecting diarrhea and infrarenal fusiform abdominal aortic aneurysm measuring 4.2 cm transverse diameter previously 3.1 cm on 06/22/2018. There is no. Aortic fluid or hematoma. There is also an atrophic left kidney with cortical thinning reflecting sequelae of chronic medical renal disease and a small hiatal her hernia and mild GE junction wall thickening similar to prior exam. She was medicated with IV Cipro and IV flagyl for the colitis. Repeat Troponin and Lactic acid testing are normal. Results of the labs were discussed with the patient. She does not think she has ever been told that she had atrial fibrillation or atrial flutter in the past. She is not having any chest pain, palpitations or other notable cardiac issues at this time. She has had runs of nonsustained atrial flutter while being monitored in the emergency department. I will discuss admission with the morning hospitalist. Case was discussed with Dr Santiago and she is accepted for admission, med/surg with telemetry Medical Records Medical records narrative: [place] [address] CT Scan Report Signed Patient: MADALYN FORBES MR#: [id number] : 1940 Acct:[id number] Age/Sex: 83 / F ADM Date: 06/01/23 Loc: ER Attending Dr: Ordering Physician: Mary Garner Date of Service: 06/01/23 Procedure(s): CT abdomen pelvis wo con Accession Number(s): [id number] cc: REINALDO ROGEL ~ [facility] [place] [id number] Patient Name: MADALYN FORBES MRN: [id number] date: 1940 Sex: F Assigned Patient Location: ER Current Patient Location: ER Accession/Order Number: [id number] Exam Date: 06/01/2023 02:34 Report Date: 06/01/2023 03:14 At the request of: MARY GARNER Procedure: CT abdomen pelvis wo con EXAM: CT abdomen pelvis wo con HISTORY: Left lower quadrant abdominal pain, abdominal cramping and diarrhea. COMPARISON: CT abdomen pelvis 06/22/2018 TECHNIQUE: Multiple axial views CT abdomen pelvis without IV contrast. Coronal sagittal reformats. FINDINGS: Visualized lung bases demonstrate moderate linear lung scar. Visualized cardiac apex is unremarkable. Liver, gallbladder, pancreas, spleen, adrenal glands, right kidney, underdistended urinary bladder, uterus and other pelvic structures are unremarkable by noncontrast CT exam. The appendix is surgically absent. Atrophic left kidney with cortical thinning. Small hiatal hernia and mild gastroesophageal junction wall thickening, similar to prior exam. No perigastric extraluminal free fluid/free air. Diffuse long segment colonic wall thickening and mild pericolonic inflammatory stranding from the mid transverse colon to the sigmoid. Liquid stool within the distal large bowel lumen. Infrarenal fusiform abdominal aortic aneurysm measuring 4.2 cm transverse diameter, previously 3.[address] 06/22/2018. No periaortic fluid or hematoma. Right common iliac artery measures 1.9 cm diameter. Left common iliac artery measures 1.5 cm diameter. Multilevel lumbar spondylosis and chronic arthritic changes of the visualized bony structures. Remote bilateral L5 pars defect. CT/CT abdomen pelvis wo con IMPRESSION: 1. Diffuse long segment colonic wall thickening and mild pericolonic inflammatory stranding from the mid transverse colon to the sigmoid. Findings reflect underlying infectious or inflammatory colitis, less likely ischemic colitis. No pneumatosis or pneumoperitoneum. 2. Liquid stool within the distal large bowel lumen reflecting diarrhea. 3. Infrarenal fusiform abdominal aortic aneurysm measuring 4.2 cm transverse diameter, previously 3.[address] 06/22/2018. No periaortic fluid or hematoma. Recommend close clinical Vascular follow-up attention. 4. Right common iliac artery measures 1.9 cm diameter. Left common iliac artery measures 1.5 cm diameter. 5. Atrophic left kidney with cortical thinning reflects sequela of chronic medical renal disease. 6. Small hiatal hernia and mild gastroesophageal junction wall thickening, similar to prior exam. No perigastric extraluminal free fluid/free air. Electronically authenticated by: ASHWIN MAK Date: 06/01/2023 03:14 Lab Data Labs: Lab Results 06/01/23 06/01/23 Range/Units 00:45 03:34 WBC 14.8 H (4.0-11.0) 10^3/uL RBC 4.06 L (4.20-5.40) 10^6/uL Hgb 12.5 (12.0-16.0) g/dL Hct 38.6 (36.0-48.0) % MCV 95.1 (81.0-99.0) fL MCH 30.8 (26.7-34.0) pg MCHC 32.4 (29.9-35.2) g/dL RDW 13.3 (11.0-15.0) % Plt Count 237 (150-450) 10^3/uL MPV 10.6 (9.5-13.5) fL Neut % (Auto) 82.9 H (43.0-75.0) % Lymph % (Auto) 13.5 L (20.5-60.0) % Wilkin % (Auto) 2.5 (1.7-12.0) % Eos % (Auto) 0.5 L (0.9-7.0) % Baso % (Auto) 0.3 (0.2-2.0) % Neut # (Auto) 12.2 H (1.4-6.5) 10^3/uL Lymph # (Auto) 2.0 (1.2-3.8) 10^3/uL Wilkin # (Auto) 0.4 (0.3-0.8) 10^3/uL Eos # (Auto) 0.1 (0.0-0.7) 10^3/uL Baso # (Auto) 0.1 (0.0-0.1) 10^3/uL Abs Immat Gran (auto) 0.05 H (0.00-0.03) 10^3/uL Imm/Tot Granulo (auto) 0.3 (0.0-0.5) % Sodium 139 (136-145) mmol/L Potassium 4.6 (3.5-5.1) mmol/L Chloride 106 (98-107) mmol/L Carbon Dioxide 22.1 (21.0-32.0) mmol/L Anion Gap 15.5 BUN 31.0 H (7.0-18.0) mg/dL Creatinine 1.37 H (0.55-1.02) mg/dL Est GFR ( Amer) 45 L (>=60) Est GFR (Non-Af Amer) 37 L (>=60) BUN/Creatinine Ratio 22.6 Glucose 213 H (74-106) mg/dL Lactate 1.2 1.2 (0.4-2.0) mmol/L Calcium 9.1 (8.5-10.1) mg/dL Magnesium 1.9 (1.8-2.4) mg/dL Total Bilirubin 0.6 (0.2-1.0) mg/dL AST 28 (15-37) U/L ALT 19 (14-59) U/L Alkaline Phosphatase 76 (46-116) U/L Troponin I High Sens 7.6 10.5 (4.0-51.3) pg/mL Total Protein 7.9 (6.4-8.2) g/dL Albumin 3.4 (3.4-5.0) g/dL Globulin 4.5 g/dL Albumin/Globulin Ratio 0.8 ECG Data Attestation: I personally reviewed and interpreted this ECG as follows: (EKG #1. Atrial fibrillation with flutter waves at 60 beats for minute, normal axis, EKG #2 sinus rhythm with sinus arrhythmia, normal axis, nonspecific ST changes, no acute ST segment elevation or T-wave inversion) Discharge Plan Discharge Chief Complaint: Abdominal Pain Clinical Impression: Paroxysmal atrial flutter, Colitis Patient Disposition: Admitted as Observation Time of Disposition Decision: 06:16 Condition: Good Prescriptions / Home Meds: No Action carvedilol 3.125 mg tablet 3.125 mg PO BID levothyroxine 25 mcg tablet 25 mcg PO QDAY Patient Comments: only takes sometimes. valsartan 40 mg tablet 20 mg PO QDAY aspirin 81 mg tablet,chewable 81 mg PO DAILY Qty: 30 0RF clopidogrel [Plavix] 75 mg tablet 75 mg PO DAILY Qty: 30 0RF atorvastatin [Lipitor] 20 mg tablet 20 mg PO DAILY Qty: 30 0RF Hold Instructions: Doctor's Order Referrals: REINALDO ROGEL [Primary Care Provider] - 1 week
[2023-06-01] MEDS: ACETAMINOPHEN 325 MG TABLET 650 MG PO (02:11)
--- NOTE | 2023-06-01 02:11 | ECG_ITS ---
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
[2023-06-01 02:12] LABS: Magnesium 1.9 mg/dL (1.8-2.4)
[2023-06-01] MEDS: 0.9 % SODIUM CHLORIDE 1,000 ML 100 ML IV (02:14)
--- NOTE | 2023-06-01 02:20 | CT_ITS ---
[address] [address] Patient Name: MADALYN FORBES MRN: [id number] date: 1940 Sex: F Assigned Patient Location: ER Current Patient Location: ER Accession/Order Number: [id number] Exam Date: 06/01/2023 02:34 Report Date: 06/01/2023 03:14 At the request of: BJ MARKER Procedure: CT abdomen pelvis wo con EXAM: CT abdomen pelvis wo con HISTORY: Left lower quadrant abdominal pain, abdominal cramping and diarrhea. COMPARISON: CT abdomen pelvis 06/22/2018 TECHNIQUE: Multiple axial views CT abdomen pelvis without IV contrast. Coronal sagittal reformats. FINDINGS: Visualized lung bases demonstrate moderate linear lung scar. Visualized cardiac apex is unremarkable. Liver, gallbladder, pancreas, spleen, adrenal glands, right kidney, underdistended urinary bladder, uterus and other pelvic structures are unremarkable by noncontrast CT exam. The appendix is surgically absent. Atrophic left kidney with cortical thinning. Small hiatal hernia and mild gastroesophageal junction wall thickening, similar to prior exam. No perigastric extraluminal free fluid/free air. Diffuse long segment colonic wall thickening and mild pericolonic inflammatory stranding from the mid transverse colon to the sigmoid. Liquid stool within the distal large bowel lumen. Infrarenal fusiform abdominal aortic aneurysm measuring 4.2 cm transverse diameter, previously 3.[address] 06/22/2018. No periaortic fluid or hematoma. Right common iliac artery measures 1.9 cm diameter. Left common iliac artery measures 1.5 cm diameter. Multilevel lumbar spondylosis and chronic arthritic changes of the visualized bony structures. Remote bilateral L5 pars defect. CT/CT abdomen pelvis wo con IMPRESSION: 1. Diffuse long segment colonic wall thickening and mild pericolonic inflammatory stranding from the mid transverse colon to the sigmoid. Findings reflect underlying infectious or inflammatory colitis, less likely ischemic colitis. No pneumatosis or pneumoperitoneum. 2. Liquid stool within the distal large bowel lumen reflecting diarrhea. 3. Infrarenal fusiform abdominal aortic aneurysm measuring 4.2 cm transverse diameter, previously 3.[address] 06/22/2018. No periaortic fluid or hematoma. Recommend close clinical Vascular follow-up attention. 4. Right common iliac artery measures 1.9 cm diameter. Left common iliac artery measures 1.5 cm diameter. 5. Atrophic left kidney with cortical thinning reflects sequela of chronic medical renal disease. 6. Small hiatal hernia and mild gastroesophageal junction wall thickening, similar to prior exam. No perigastric extraluminal free fluid/free air. Electronically authenticated by: ASHWIN MAK Date: 06/01/2023 03:14
--- NOTE | 2023-06-01 02:21 | ECG_ITS ---
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
[2023-06-01 03:58] LABS: Troponin I High Sensitivity 10.5 pg/mL (4.0-51.3)
[2023-06-01 03:59] LABS: Lactate/Lactic Acid 1.2 mmol/L (0.4-2.0)
[2023-06-01] MEDS: CIPROFLOXACIN IN 5 % DEXTROSE 400 MG/200 ML PIGGYBACK IV (04:45)
[2023-06-01] MEDS: METRONIDAZOLE/SODIUM CHLORIDE 500 MG/100 ML PREMIX 100 MG IV ×3 (06:02→17:11)
--- OUTSIDE RECORDS SUMMARY | 2023-06-01 06:35 | XMS_ITS | CCD ---
Author Name Unknown Address [address] [place] [address] Organization [facility] Care Team Providers Care Customer Manager Name Role Phone RIAN ROSS Admitting Unavailable [...] Unavailable Jorge Luis Whitehead Primary Care Provider [phone] Jorge Luis Whitehead DO Primary Care Provider Jorge Luis Whitehead DO Primary Care Provider Gabi Gaona Unavailable Jorge Luis Whitehead DO Primary Care Provider DO Jorge Luis Whitehead Primary Care Provider MD Simin Lama Attending Provider [phone] DRAKE ANAND Attending Unavailable KUNCHAR, DRAKE Referring [...] Translations: [LISINOPRIL] Drug Allergy 04-05-20 21 [facility] Repository (3 sources) Penicillins; Translations: [PENICILLINS] Drug allergy (disorder) 09-21-19 16 Rash [facility] Repository (8 sources) Lisinopril Drug Allergy 04-05-20 21 Unknown [facility] (2 sources) Penicillins Drug Intolerance 04-05-20 21 Other: See Comments [facility] (6 sources) Penicillins Drug Intolerance 04-05-20 21 Other: See Comments [facility] (5 sources) Amino Acids Drug Allergy 02-01-20 Other: See Comments [facility] (1 source) Penicillin V Drug Allergy dizziness, LOC [employer] Other (1 source) Penicillins Drug allergy (disorder) 06-15-19 19 [facility] Repository (2 sources) Amino Acids Drug Allergy 02-01-20 22 Other [facility] Work Phone: (2 sources) HMG-CoA reductase inhibitor Propensity to adverse reactions 09-09-19 Other [facility] Healthcare Work Phone: (2 sources) Lisinopril Propensity to adverse reactions 04-05-20 Cough, Other [facility] Healthcare (2 sources) Penicillins Drug Intolerance 04-05-20 Other [facility] Healthcare Medications Current Medications Medication Drug Class(es) [...] disease (7 sources) Atherosclerotic heart disease of [place] coronary artery without angina pectoris; Translations: [Old [...] 05-25-2023 Chronic Other aftercare (1 source) Other skilled nursing (current) drug therapy; 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 Chrissie is calling to request a new order. 1) Diagnostic Bilateral Mammogram 2) US order (that way they have it if needed) ABDIFATAH/Amarilys: If in agreement, can you please place order PERLITA and I will fax back to her? Thanks! Chrissie: Ph. [phone] Fax. [phone] Honey Lama MD 05/15/2022 2:11 PM Signed [...] left (HCC) [C50.912, C77.3] Order(s):DANIELLE DIAGNOSTIC BILAT [[id number]] Order #: [id number] FUTURE US BREAST LTD LT [[id number]] Order #: [id number] FUTURE US BREAST LTD RT [[id number]] Order #: [id number] FUTURE Prescriptions as of 05/15/2022 - aspirin [...] Encounter Status:Closed by HONEY TUCKER on 05/15/22 [facility] JOHANNY FORBES ([id number]) 1940 F Date Time Provider Department 05/15/22 RU THOMAS During your visit today, we recorded the following information about you: Ru Thomas RN 05/15/2022 2:19 PM Signed Received call from pt stating she is at [facility] and needs mammogram orders sent. Orders faxed [...] Status:Closed by RU THOMAS on 05/15/22 Normal [facility] MM diagnostic mammo BI w/CAD on 05-15-2022 MM diagnostic mammo BI w/CAD [facility] Main [place] [address] [place] [address] Mammography Report Signed Patient: Johanny Forbes MR#: [id number] : 1940 Acct:[id number] Age/Sex: 82 / F ADM Date: 05/15/22 Loc: [place] Room: Type: [facility] Attending Dr: Simin Lama MD Copies to: [...] Aguayo Jr., DMayela05/15/2022 2:50 PM Dictation Location: [facility] Transcribed By: GABRIEL 05/15/22 1450 Dictated By: Jaycob Aguayo Jr, DO 05/15/22 1445 Signed By: 05/15/22 1450 [facility] COVID/FLU RT-PCRon SARS-CoV-2 (COVID-19) RNA DEIDRE+probe Ql (Unsp spec) Negative [employer] Other COVID/FLU RT-PCR Negative [employer] Other CNPKenia 02-13-2022 CNPN Telephone (HEMTSA) -------- JOHANNY FORBES ([id number]) 1940 F Date Time Provider Department 02/13/22 [...] Encounter Status:Closed by SHIVA REYES on 02/13/22 [facility] CNOVSPon 01-31-2022 CNOVSP Visit (SP) Office ([place]) -------- JOHANNY FORBES ([id number]) 1940 F Date Time Provider Department 01/31/22 3:15 PM SIMIN LAMA During your visit today, we recorded the following information about you: Temperature Pulse Respiration Blood pressure 97.3 degrees 62/minute 16/minute 142/65 Weight Height 70 kg 1.589 m Simin Lama MD 01/31/2022 3:38 PM Signed PATIENT NAME: Johanny Forbes CLINIC NO.: [id number] ATTENDING PHYSICIAN: Simin Lama MD DATE OF [...] metastatic breast carcinoma, 5 cm, ER 0, IL 0, HER-2 0 by IHC. The tissue was not evaluated for flow cytometry to rule out a lymphoproliferative process. 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 Differential included mammary, skin, urothelial, pancreaticobiliary and pulmonary primaries. ER 0, IL 0, HER-2 negative by CAMERON. 2021 PET [...] Rectal: Deferred (more content not included)... [facility] Tele[facility] ([facility]) -------- JOHANNY FORBES ([id number]) 1940 F Date Time Provider Department 01/31/22 SIMIN LAMA During your visit today, we recorded the following information about you: Honey Tucker 01/31/2022 4:[address] Lama, patient had a previous abnormal L Mammogram and never followed up. He would like L Mammogram completed now. Faxed order to [place] scheduling per patient's hospital request. Honey Tucker [...] Encounter Status:Closed by HONEY TUCKER on 02/01/22 [facility] CNPN Telephone (ANNETTEA) -------- JOHANNY FORBES ([id number]) 1940 F Date Time Provider Department 01/30/22 [...] Fully Assessed Reason for Visit: Patient Question [1067] Prescriptions as of 01/30/2022 - aspirin 82 [...] Status:Closed by AMANDA HENDERSON on 01/30/22 [facility], RANDOM URINE W/TAMERA [place] 12-09-2021 ALBUMIN, URINE 1.7 mg/dL Normal See Note: [facility] Comment on above: Result Comment: Refe renkarolina Range: Reference Range Not established Performed By: #### 7 18, 622, 496, 10032, 40476, 70263, 6399, 7600, 905, 6517 #### [facility] [place] [address] Gaggerman: César Dunn MD ALBUMIN/CREATININE RATIO, RANDOM URINE [...] Performed By: #### 7 18, 622, 496, 52712, 31062, 77735, 6399, 7600, 905, 6517 #### [facility] [place] [address] Gaggerman: César Dunn MD Creatinine (U) [Mass/Vol] 74 mg/dL Normal 20-275 [facility] Comment on above: Performed By: #### 7 18, 622, 496, 77008, 73906, 87126, 6399, 7600, 905, 6517 #### [facility] [place] [address] Gaggerman: César Dunn MD CBC (INCLUDES DIFF/PLT)on Basophils (Bld) [#/Vol] 0.044 10*3/uL Normal 0-200 [facility] Comment on above: Performed By: #### 7 18, 622, 496, 48091, 40300, 57083, 6399, 7600, 905, 6517 #### [facility] [place] [address] Gaggerman: César Dunn MD Basophils/100 WBC (Bld) 0.5 % Normal [facility] Comment on above: Performed By: #### 7 18, 622, 496, 16475, 97448, 74383, 6399, 7600, 905, 6517 #### [facility] [place] [address] Gaggerman: César Dunn MD Eosinophils (Bld) [#/Vol] 0.29 10*3/uL Normal 15-500 [facility] Comment on above: Performed By: #### 7 18, 622, 496, 24875, 99979, 32948, 6399, 7600, 905, 6517 #### [facility] of [place] [address] Gaggerman: César Dunn MD Eosinophils/100 WBC (Bld) 3.3 % Normal [facility] Comment on above: Performed By: #### 7 18, 622, 496, 40966, 13500, 39963, 6399, 7600, 905, 6517 #### [facility] of [place] [address] Gaggerman: César Dunn MD Erythrocyte distribution width (RBC) [Ratio] 12.6 % Normal 11.0-15.0 [facility] Comment on above: Performed By: #### 7 18, 622, 496, 71503, 17205, 39349, 6399, 7600, 905, 6517 #### [facility] of [place] [address] Gaggerman: César Dunn MD Hematocrit (Bld) [Volume fraction] 36.3 % Normal 35.0-45.0 [facility] Comment on above: Performed By: #### 7 18, 622, 496, 13626, 58574, 16610, 6399, 7600, 905, 6517 #### [facility] of [place] [address] Gaggerman: César Dunn MD Hemoglobin (Bld) [Mass/Vol] 12.4 g/dL Normal 11.7-15.5 [facility] Comment on above: Performed By: #### 7 18, 622, 496, 60727, 00359, 57157, 6399, 7600, 905, 6517 #### [facility] of [place] [address] Gaggerman: César Dunn MD Lymphocytes (Bld) [#/Vol] 3.08 10*3/uL Normal 850-3900 [facility] Comment on above: Performed By: #### 7 18, 622, 496, 24919, 11916, 28769, 6399, 7600, 905, 6517 #### [facility] of [place] [address] Gaggerman: César Dunn MD Lymphocytes/100 WBC (Bld) 35.0 % Normal [facility] Comment on above: Performed By: #### 7 18, 622, 496, 97714, 12877, 01435, 6399, 7600, 905, 6517 #### [facility] of [place] [address] Gaggerman: César Dunn MD MCH (RBC) [Entitic mass] 30.7 pg Normal 27.0-33.0 [facility] Comment on above: Performed By: #### 7 18, 622, 496, 06780, 28840, 28056, 6399, 7600, 905, 6517 #### [facility] [place] [address] Gaggerman: César Dunn MD MCHC (RBC) [Mass/Vol] 34.2 g/dL Normal 32.0-36.0 [facility] Comment on above: Performed By: #### 7 18, 622, 496, 98259, 94708, 49202, 6399, 7600, 905, 6517 #### [facility] [place] [address] Gaggerman: César Dunn MD MCV (RBC) [Entitic vol] 89.9 fL Normal 80.0-100.0 [facility] Comment on above: Performed By: #### 7 18, 622, 496, 53933, 45875, 03581, 6399, 7600, 905, 6517 #### [facility] [place] [address] Gaggerman: César Dunn MD Monocytes (Bld) [#/Vol] 0.37 10*3/uL Normal 200-950 [facility] Comment on above: Performed By: #### 7 18, 622, 496, 23377, 19548, 30944, 6399, 7600, 905, 6517 #### [facility] [place] [address] Gaggerman: César Dunn MD Monocytes/100 WBC (Bld) 4.2 % Normal [facility] Comment on above: Performed By: #### 7 18, 622, 496, 16728, 77564, 20550, 6399, 7600, 905, 6517 #### [facility] [place] [address] Gaggerman: César Dunn MD Neutrophils (Bld) [#/Vol] 5.016 10*3/uL Normal 7114-5262 [facility] Comment on above: Performed By: #### 7 18, 622, 496, 14015, 74534, 37888, 6399, 7600, 905, 6517 #### [facility] [place] [address] Gaggerman: César Dunn MD Neutrophils/100 WBC (Bld) 57 % Normal [facility] Comment on above: Performed By: #### 7 18, 622, 496, 43208, 23056, 80955, 6399, 7600, 905, 6517 #### [facility] [place] [address] Gaggerman: César Dunn MD Platelet mean volume (Bld) [Entitic vol] 10.6 fL Normal 7.5-12.5 [facility] Comment on above: Performed By: #### 7 18, 622, 496, 02343, 20472, 48098, 6399, 7600, 905, 6517 #### [facility] [place] [address] Gaggerman: César Dunn MD Platelets (Bld) [#/Vol] 278 10*3/uL Normal 140-400 [facility] Comment on above: Performed By: #### 7 18, 622, 496, 12069, 64191, 09096, 6399, 7600, 905, 6517 #### [facility] [place] [address] Gaggerman: César Dunn MD RBC (Bld) [#/Vol] 4.04 10*6/uL Normal 3.80-5.10 [facility] Comment on above: Performed By: #### 7 18, 622, 496, 96686, 26902, 81710, 6399, 7600, 905, 6517 #### [facility] [place] [address] Gaggerman: César Dunn MD WBC (Bld) [#/Vol] 8.8 10*3/uL Normal 3.8-10.8 [facility] Comment on above: Performed By: #### 7 18, 622, 496, 86668, 58498, 92832, 6399, 7600, 905, 6517 #### [facility] [place] [address] Gaggerman: César Dunn MD [facility] Albumin [Mass/Vol] 4.3 g/dL Normal 3.6-5.1 [facility] Comment on above: Performed By: #### 7 18, 622, 496, 65917, 73595, 65228, 6399, 7600, 905, 6517 #### [facility] [place] [address] Gaggerman: César Dunn MD Albumin/Globulin [Mass ratio] 1.4 {ratio} Normal 1.0-2.5 [facility] Comment on above: Performed By: #### 7 18, 622, 496, 08129, 91707, 86788, 6399, 7600, 905, 6517 #### [facility] of [address], [address] [place] [address] Gaggerman: César Dunn MD ALP [Catalytic activity/Vol] 66 U/L Normal 37-153 [facility] Comment on above: Performed By: #### 7 18, 622, 496, 99271, 02708, 72861, 6399, 7600, 905, 6517 #### [facility] [place] [address] Gaggerman: César Dunn MD ALT [Catalytic activity/Vol] 8 U/L Normal 6-29 [facility] Comment on above: Performed By: #### 7 18, 622, 496, 29259, 90419, 40277, 6399, 7600, 905, 6517 #### [facility] [place] [address] Gaggerman: César Dunn MD AST [Catalytic activity/Vol] 16 U/L Normal 10-35 [facility] Comment on above: Performed By: #### 7 18, 622, 496, 30078, 09728, 73366, 6399, 7600, 905, 6517 #### [facility] [place] [address] Gaggerman: César Dunn MD Bilirubin [Mass/Vol] 0.6 mg/dL Normal 0.2-1.2 [facility] Comment on above: Performed By: #### 7 18, 622, 496, 40540, 23706, 56909, 6399, 7600, 905, 6517 #### [facility] [place] [address] Gaggerman: César Dunn MD Calcium [Mass/Vol] 9.6 mg/dL Normal 8.6-10.4 [facility] Comment on above: Performed By: #### 7 18, 622, 496, 12386, 66738, 84644, 6399, 7600, 905, 6517 #### [facility] [place] [address] Gaggerman: César Dunn MD Chloride [Moles/Vol] 108 mmol/L Normal 98-110 [facility] Comment on above: Performed By: #### 7 18, 622, 496, 91934, 34368, 79254, 6399, 7600, 905, 6517 #### [facility] [address], [address] [place] [address] Gaggerman: César Dunn MD CO2 [Moles/Vol] 25 mmol/L Normal 20-32 [facility] Comment on above: Performed By: #### 7 18, 622, 496, 19174, 08362, 18910, 6399, 7600, 905, 6517 #### [facility] [place] [address] Gaggerman: César Dunn MD Creatinine [Mass/Vol] 1.37 mg/dL High 0.60-0.95 [facility] Comment on above: Performed By: #### 7 18, 622, 496, 73951, 16119, 50032, 6399, 7600, 905, 6517 #### [facility] [place] [address] Gaggerman: César Dunn MD GFR/1.73 sq M.predicted among non-blacks MDRD (S/P/Bld) [Vol rate/Area] 39 mL/min/{1.73_m2} Low > OR = 60 [facility] Comment on above: Result Comment: The eGFR is based on the CKD-EPI 202 equation. To calculate the new eGFR from a previous Creatinine or Cystatin C result, go to https://www.kidney.org/professionals/ kdoqi/gfr%5Fcalculator Performed By: #### 7 18, 622, 496, 53461, 10186, 75482, 6399, 7600, 905, 6517 #### [facility] [address], [address] [place] [address] Gaggerman: César Dunn MD Globulin (S) [Mass/Vol] 3.1 g/dL Normal 1.9-3.7 [facility] Comment on above: Performed By: #### 7 18, 622, 496, 95083, 35101, 84022, 6399, 7600, 905, 6517 #### [facility] [place] [address] Gaggerman: César Dunn MD Glucose [Mass/Vol] 121 mg/dL High 65-99 [facility] Comment on above: Result Comment: Fasting reference interval For someone without known diabetes, a glucose value between 100 and 125 mg/dL is consistent with prediabetes and should be confirmed with a follow-up test. Performed By: #### 7 18, 622, 496, 11001, 80001, 77213, 6399, 7600, 905, 6517 #### [facility] [place] [address] Gaggerman: César Dunn MD Potassium [Moles/Vol] 4.6 mmol/L Normal 3.5-5.3 [facility] Comment on above: Performed By: #### 7 18, 622, 496, 51480, 99601, 14593, 6399, 7600, 905, 6517 #### [facility] [place] [address] Gaggerman: César Dunn MD Protein [Mass/Vol] 7.4 g/dL Normal 6.1-8.1 [facility] Comment on above: Performed By: #### 7 18, 622, 496, 45774, 22957, 40445, 6399, 7600, 905, 6517 #### [facility] [place] [address] Gaggerman: César Dunn MD Sodium [Moles/Vol] 139 mmol/L Normal 135-146 [facility] Comment on above: Performed By: #### 7 18, 622, 496, 27419, 39097, 26262, 6399, 7600, 905, 6517 #### [facility] [place] [address] Gaggerman: César Dunn MD Urea nitrogen [Mass/Vol] 22 mg/dL Normal 7-25 [facility] Comment on above: Performed By: #### 7 18, 622, 496, 22783, 20052, 91932, 6399, 7600, 905, 6517 #### [facility] [address], [address] [place] [address] Gaggerman: César Dunn MD Urea nitrogen/Creatinin e [Mass ratio] 16 mg/mg Normal 6-22 [facility] Comment on above: Performed By: #### 7 18, 622, 496, 29131, 43691, 84763, 6399, 7600, 905, 6517 #### [facility] [address], [address] [place] [address] Gaggerman: César Dunn MD HEMOGLOBIN A1con 12-09-2021 HEMOGLOBIN [...] Performed By: #### 7 18, 622, 496, 99014, 38713, 98808, 6399, 7600, 905, 6517 #### [facility] [address], [address] [place] [address] Gaggerman: César Dunn MD LIPID PANEL, STANDARDon 11-15 Cholesterol [Mass/Vol] 260 mg/dL High <200 [facility] Comment on above: Order Comment: FASTI NG:YES FASTING: YES Performed By: #### 7 18, 622, 496, 21669, 94665, 98070, 6399, 7600, 905, 6517 #### [facility] [address], [address] [place] [address] Gaggerman: César Dunn MD Cholesterol in HDL [Mass/Vol] 38 mg/dL Low > OR = 50 [facility] Comment on above: Order Comment: FASTI NG:YES FASTING: YES Performed By: #### 7 18, 622, 496, 82300, 74370, 28677, 6399, 7600, 905, 6517 #### [facility] [address], [address] [place] [address] Gaggerman: César Dunn MD Cholesterol in LDL [Mass/Vol] [...] LDL-C. Tim HUMPHRIES et al. GENA. 2013;310(19): 8596-8543 (http://education.VetCloud.InfiniDB/faq/IDX052) Performed By: #### 7 18, 622, 496, 82803, 09355, 68518, 6399, 7600, 905, 6517 #### [facility] [address], [address] [place] [address] Gaggerman: César Dunn MD Cholesterol.total/ Cholesterol in HDL [Mass ratio] 6.8 {ratio} High <5.0 [facility] Comment on above: Order Comment: FASTI NG:YES FASTING: YES Performed By: #### 7 18, 622, 496, 39312, 50938, 03312, 6399, 7600, 905, 6517 #### [facility] [address], [address] [place] [address] Gaggerman: César Dunn MD NON HDL CHOLESTEROL 222 [...] Performed By: #### 7 18, 622, 496, 49182, 80793, 63282, 6399, 7600, 905, 6517 #### [facility] [address], [address] [place] [address] Gaggerman: César Dunn MD Triglyceride [Mass/Vol] 162 mg/dL High <150 [facility] Comment on above: Order Comment: FASTI NG:YES FASTING: YES Performed By: #### 7 18, 622, 496, 63485, 72210, 49953, 6399, 7600, 905, 6517 #### [facility] [address], [address] [place] [address] Gaggerman: César Dunn MD MAGNESIUMon 12-09-2021 Magnesium [Mass/Vol] 2.1 mg/dL Normal 1.5-2.5 [facility] Comment on above: Performed By: #### 7 18, 622, 496, 11966, 45474, 85680, 6399, 7600, 905, 6517 #### [facility] [place] [address] Gaggerman: César Dunn MD PHOSPHATE ( PHOSPHORUS)on 12-09-2021 Phosphate [Mass/Vol] 3.6 mg/dL Normal 2.1-4.3 [facility] Comment on above: Performed By: #### 7 18, 622, 496, 80876, 33834, 15379, 6399, 7600, 905, 6517 #### [facility] [address], [address] [place] [address] Gaggerman: César Dunn MD PTH, INTACT WITHOUT CALCIUMo n 12-09-2021 PARATHYROID HORMONE, INTACT 64 pg/mL Normal 16-77 [facility] Comment on above: Result Comment: Interpretive Guide Intact PTH Calcium ------- Normal Parathyroid Normal Normal Hypoparathyroidism Low or Low Normal Low Hyperparathyroidism Primary Normal or High High Secondary High Normal or Low Tertiary High High Non-Parathyroid Hypercalcemia Low or Low Normal High Performed By: #### 7 18, 622, 496, 35790, 99142, 28277, 6399, 7600, 905, 6517 #### [facility] [address], [address] [place], [place] [address] Gaggerman: César Dunn MD URIC ACIDon 12-09-2021 Urate [Mass/Vol] 5.1 mg/dL Normal 2.5-7.0 [facility] Comment on above: Result Comment: Ther apeutic target for gout patients: <6.0 mg/dL Performed By: #### 7 18, 622, 496, 22587, 58556, 25216, 6399, 7600, 905, 6517 #### [facility] [address], [address] [place], [place] [address] Gaggerman: César Dunn MD VITAMIN D,25-OH,TOTAL,IAon 0 12-09-2021 VITAMIN D,25-OH,TOTAL,IA 37 ng/mL Normal 30-100 [facility] Comment on above: Result Comment: Isaura min D Status 25-OH Vitamin D: Deficiency: <20 ng/mL Insufficiency: 20 - 29 ng/mL Optimal: > or = 30 ng/mL For 25-OH Vitamin D testing on patients on D2-supplementation and patients for whom quantitation of D2 and D3 fractions is required, the QuestAssureD(TM) 25-OH VIT D, (D2,D3), LC/MS/MS is recommended: order code 67008 (patients >2yrs). See Note 1 Note 1 For additional information, please refer to http://education.VetCloud.InfiniDB/faq/MJR229 (This link is being provided for informational/ educational purposes only.) Performed By: #### 7 18, 622, 496, 24810, 82720, 85419, 6399, 7600, 905, 6517 #### [facility] [address], [address] [place] [address] Gaggerman: César Dunn MD CNCOon 11-07-2021 CNCO Letter Text Normal [facility] CBC W Auto Differential pane l (Bld)on 07-28-2021 Basophils (Bld) [#/Vol] 0.03 10*3/uL Normal <0.11 [facility] Comment on above: Order Comment: Speci men Type: BLOOD SPECIMENOrdering Facility: [facility] Address: [address] [place] [address] Performed By: #### 5 7021-8 ####[facility] LABCLIA [id number] [place] [address] Basophils/100 WBC (Bld) 0.4 % Normal [facility] Comment on above: Order Comment: Speci men Type: BLOOD SPECIMENOrdering Facility: [facility] Address: [address] [place] [address] Performed By: #### 5 7021-8 ####[facility] LABCLIA [id number] [place] [address] Differential cell count method Nom (Bld) Auto Normal [facility] Comment on above: Order Comment: Speci men Type: BLOOD SPECIMENOrdering Facility: [facility] Address: [address] [place] [address] Performed By: #### 5 7021-8 ####[facility] LABCLIA [id number] [place] [address] Eosinophils (Bld) [#/Vol] 0.29 10*3/uL Normal <0.46 [facility] Comment on above: Order Comment: Speci men Type: BLOOD SPECIMENOrdering Facility: [facility] Address: [address] [place] [address] Performed By: #### 5 7021-8 ####[facility] LABCLIA [id number] [place] [address] Eosinophils/100 WBC (Bld) 3.7 % Normal [facility] Comment on above: Order Comment: Speci men Type: BLOOD SPECIMENOrdering Facility: [facility] Address: [address] [place] [address] Performed By: #### 5 7021-8 ####[facility] LABCLIA [id number] [place] [address] Erythrocyte distribution width (RBC) [Ratio] 13.2 % Normal 11.5-15.0 [facility] Comment on above: Order Comment: Speci men Type: BLOOD SPECIMENOrdering Facility: [facility] Address: [address] [place] [address] Performed By: #### 5 7021-8 ####[facility] LABCLIA [id number] [place] [address] Hematocrit (Bld) [Volume fraction] 37.6 % Normal 36.0-46.0 [facility] Comment on above: Order Comment: Speci men Type: BLOOD SPECIMENOrdering Facility: [facility] Address: [address] [place] [address] Performed By: #### 5 7021-8 ####[facility] LABCLIA [id number] [place] [address] Hemoglobin (Bld) [Mass/Vol] 12.1 g/dL Normal 11.5-15.5 [facility] Comment on above: Order Comment: Speci men Type: BLOOD SPECIMENOrdering Facility: [facility] Address: [address] [place] [address] Performed By: #### 5 7021-8 ####[facility] LABCLIA [id number] [place] [address] IMMATURE GRAN % 0.3 % Normal [facility] Comment on above: Order Comment: Speci men Type: BLOOD SPECIMENOrdering Facility: [facility] Address: [address] [place] [address] Performed By: #### 5 7021-8 ####[facility] LABCLIA [id number] [place] [address] IMMATURE GRAN ABS <0.03 Normal <0.10 [facility] Comment on above: Order Comment: Speci men Type: BLOOD SPECIMENOrdering Facility: [facility] Address: [address] [place] [address] Performed By: #### 5 7021-8 ####[facility] LABCLIA [id number] [place] [address] Lymphocytes (Bld) [#/Vol] 3.28 10*3/uL Normal 1.00-4.00 [facility] Comment on above: Order Comment: Speci men Type: BLOOD SPECIMENOrdering Facility: [facility] Address: [address] [place] [address] Performed By: #### 5 7021-8 ####[facility] LABIA [id number] [place] [address] Lymphocytes/100 WBC (Bld) 41.8 % Normal [facility] Comment on above: Order Comment: Speci men Type: BLOOD SPECIMENOrdering Facility: [facility] Address: [address] [place] [address] Performed By: #### 5 7021-8 ####[facility] LABCLIA [id number] [place] [address] MCH (RBC) [Entitic mass] 30.0 pg Normal 26.0-34.0 [facility] Comment on above: Order Comment: Speci men Type: BLOOD SPECIMENOrdering Facility: [facility] Address: [address] [place] [address] Performed By: #### 5 7021-8 ####[facility] LABCLIA [id number] [place] [address] MCHC (RBC) [Mass/Vol] 32.2 g/dL Normal 30.5-36.0 [facility] Comment on above: Order Comment: Speci men Type: BLOOD SPECIMENOrdering Facility: [facility] Address: [address] [place] [address] Performed By: #### 5 7021-8 ####[facility] LABIA [id number] [place] [address] MCV (RBC) [Entitic vol] 93.3 fL Normal 80.0-100.0 [facility] Comment on above: Order Comment: Speci men Type: BLOOD SPECIMENOrdering Facility: [facility] Address: [address] [place] [address] Performed By: #### 5 7021-8 ####[facility] LABIA [id number] [place] [address] Monocytes (Bld) [#/Vol] 0.46 10*3/uL Normal <0.87 [facility] Comment on above: Order Comment: Speci men Type: BLOOD SPECIMENOrdering Facility: [facility] Address: [address] [place] [address] Performed By: #### 5 7021-8 ####[facility] LABIA [id number] [place] [address] Monocytes/100 WBC (Bld) 5.9 % Normal [facility] Comment on above: Order Comment: Speci men Type: BLOOD SPECIMENOrdering Facility: [facility] Address: [address] [place] [address] Performed By: #### 5 7021-8 ####[facility] LABIA [id number] [place] [address] Neutrophils (Bld) [#/Vol] 3.77 10*3/uL Normal 1.45-7.50 [facility] Comment on above: Order Comment: Speci men Type: BLOOD SPECIMENOrdering Facility: [facility] Address: [address] [place] [address] Performed By: #### 5 7021-8 ####[facility] LABCLIA [id number] [place] [address] Neutrophils/100 WBC (Bld) 47.9 % Normal [facility] Comment on above: Order Comment: Speci men Type: BLOOD SPECIMENOrdering Facility: [facility] Address: [address] [place] [address] Performed By: #### 5 7021-8 ####[facility] LABCLIA [id number] [place] [address] Nucleated RBC (Bld) [#/Vol] 10*3/uL Normal <0.01 [facility] Comment on above: Order Comment: Speci men Type: BLOOD SPECIMENOrdering Facility: [facility] Address: [address] [place] [address] Performed By: #### 5 7021-8 ####[facility] LABCLIA [id number] [place] [address] Nucleated RBC/100 WBC (Bld) [Ratio] 0.0 /100 WBC Normal [facility] Comment on above: Order Comment: Speci men Type: BLOOD SPECIMENOrdering Facility: [facility] Address: [address] [place] [address] Performed By: #### 5 7021-8 ####[facility] LABCLIA [id number] [place] [address] Platelet mean volume (Bld) [Entitic vol] 10.6 fL Normal 9.0-12.7 [facility] Comment on above: Order Comment: Speci men Type: BLOOD SPECIMENOrdering Facility: [facility] Address: [address] [place] [address] Performed By: #### 5 7021-8 ####[facility] LABCLIA [id number] [place] [address] Platelets (Bld) [#/Vol] 259 10*3/uL Normal 150-400 [facility] Comment on above: Order Comment: Speci men Type: BLOOD SPECIMENOrdering Facility: [facility] Address: [address] [place] [address] Performed By: #### 5 7021-8 ####[facility] LABCLIA [id number] [place] [address] RBC (Bld) [#/Vol] 4.03 10*6/uL Normal 3.90-5.20 [facility] Comment on above: Order Comment: Speci men Type: BLOOD SPECIMENOrdering Facility: [facility] Address: [address] [place] [address] Performed By: #### 5 7021-8 ####[facility] LABCLIA [id number] [place] [id number] WBC (Bld) [#/Vol] 7.85 10*3/uL Normal 3.70-11.00 [facility] Comment on above: Order Comment: Speci men Type: BLOOD SPECIMENOrdering Facility: [facility] Address: [address] [place] [address] Performed By: #### 5 7021-8 ####[facility] LABCLIA [id number] [place] [address] Abs Immature Gran <0.03 <0.10 k/uL [facility] Basophils (Bld) [#/Vol] 0.03 10*3/uL <0.11 k/uL [facility] Basophils/100 WBC (Bld) 0.4 % [facility] Differential cell count method Nom (Bld) Auto [facility] Eosinophils (Bld) [#/Vol] 0.29 10*3/uL <0.46 k/uL [facility] Eosinophils/100 WBC (Bld) 3.7 % [facility] Erythrocyte distribution width (RBC) [Ratio] 13.2 % 11.5 - 15.0 % [facility] Hematocrit (Bld) [Volume fraction] 37.6 % 36.0 - 46.0 % [facility] Hemoglobin (Bld) [Mass/Vol] 12.1 g/dL 11.5 - 15.5 g/dL [facility] Immature Gran % 0.3 % [facility] Lymphocytes (Bld) [#/Vol] 3.28 10*3/uL 1.00 - 4.00 k/uL [facility] Lymphocytes/100 WBC (Bld) 41.8 % [facility] MCH (RBC) [Entitic mass] 30.0 pg 26.0 - 34.0 pg [facility] MCHC (RBC) [Mass/Vol] 32.2 g/dL 30.5 - 36.0 g/dL [facility] MCV (RBC) [Entitic vol] 93.3 fL 80.0 - 100.0 fL [facility] Monocytes (Bld) [#/Vol] 0.46 10*3/uL <0.87 k/uL [facility] Monocytes/100 WBC (Bld) 5.9 % [facility] Neutrophils (Bld) [#/Vol] 3.77 10*3/uL 1.45 - 7.50 k/uL [facility] Neutrophils/100 WBC (Bld) 47.9 % [facility] Nucleated RBC (Bld) [#/Vol] 10*3/uL <0.01 k/uL [facility] Nucleated RBC/100 WBC (Bld) [Ratio] 0.0 /100 WBC [facility] Platelet mean volume (Bld) [Entitic vol] 10.6 fL 9.0 - 12.7 fL [facility] Platelets (Bld) [#/Vol] 259 10*3/uL 150 - 400 k/uL [facility] RBC (Bld) [#/Vol] 4.03 10*6/uL 3.90 - 5.2 0 m/uL [facility] WBC (Bld) [#/Vol] 7.85 10*3/uL 3.70 - 11. 00 k/uL [facility] CNOVSPon 07-28-2021 CNOVSP Visit (SP) Office (HEMASA) -------- JOHANNY FORBES ([id number]) 1940 F Date Time Provider Department 07/28/21 [...] metastatic breast carcinoma, 5 cm, ER 0, IL 0, HER-2 0 by IHC. The tissue was not evaluated for flow cytometry to rule out a lymphoproliferative process. 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 Differential included mammary, skin, urothelial, pancreaticobiliary and pulmonary primaries. ER 0, IL 0, HER-2 negative by CAMERON. ? 2021 [...] today. Fo (more content not included)... Normal [facility] Comprehensive metabolic 2000 panelon 07-28-2021 Albumin [Mass/Vol] 4.2 g/dL Normal 3.9-4.9 [facility] Comment on above: Order Comment: Speci men Type: BLOOD SPECIMENOrdering Facility: [facility] Address: [address] [place] [address] Performed By: #### 2 4323-8 ####[facility] LABCLIA [id number] [place] [address] ALP [Catalytic activity/Vol] 72 U/L Normal 34-123 [facility] Comment on above: Order Comment: Speci men Type: BLOOD SPECIMENOrdering Facility: [facility] Address: [address] [place] [address] Performed By: #### 2 4323-8 ####[facility] LABCLIA [id number] [place] [address] ALT [Catalytic activity/Vol] 7 U/L Normal 7-38 [facility] Comment on above: Order Comment: Speci men Type: BLOOD SPECIMENOrdering Facility: [facility] Address: [address] [place] [address] Performed By: #### 2 4323-8 ####[facility] LABCLIA [id number] [place] [address] Anion gap [Moles/Vol] 7 mmol/L Low 9-18 [facility] Comment on above: Order Comment: Speci men Type: BLOOD SPECIMENOrdering Facility: [facility] Address: [address] [place] [address] Performed By: #### 2 4323-8 ####[facility] LABCLIA [id number] [place] [address] AST [Catalytic activity/Vol] 17 U/L Normal 13-35 [facility] Comment on above: Order Comment: Speci men Type: BLOOD SPECIMENOrdering Facility: [facility] Address: [address] [place] [address] Performed By: #### 2 4323-8 ####[facility] LABCLIA [id number] [place] [address] Bilirubin [Mass/Vol] 0.4 mg/dL Normal 0.2-1.3 [facility] Comment on above: Order Comment: Speci men Type: BLOOD SPECIMENOrdering Facility: [facility] Address: [address] [place] [address] Performed By: #### 2 4323-8 ####[facility] LABCLIA [id number] [place] [address] Calcium [Mass/Vol] 9.8 mg/dL Normal 8.5-10.2 [facility] Comment on above: Order Comment: Speci men Type: BLOOD SPECIMENOrdering Facility: [facility] Address: [address] [place] [address] Performed By: #### 2 4323-8 ####[facility] LABCLIA [id number] [place] [address] Chloride [Moles/Vol] 105 mmol/L Normal 97-105 [facility] Comment on above: Order Comment: Speci men Type: BLOOD SPECIMENOrdering Facility: [facility] Address: [address] [place], [place] [address] Performed By: #### 2 4323-8 ####[facility] LABCLIA [id number] [place] [address] CO2 [Moles/Vol] 26 mmol/L Normal 22-30 [facility] Comment on above: Order Comment: Speci men Type: BLOOD SPECIMENOrdering Facility: [facility] Address: [address] [place] [address] Performed By: #### 2 4323-8 ####[facility] LABCLIA [id number] [place] [address] Creatinine [Mass/Vol] 1.31 mg/dL High 0.58-0.96 [facility] Comment on above: Order Comment: Joseline beebe Type: BLOOD SPECIMENOrdering Facility: [facility] Address: [address] [place] [address] Performed By: #### 2 4323-8 ####[facility] LABCLIA [id number] [place] [address] ESTIMATED GLOMERULAR FILTRATION RATE 41 mL/min/1.73m??? Low >=60 [facility] Comment on above: Order Comment: Joseline beebe Type: BLOOD SPECIMENOrdering Facility: [facility] Address: [address] [place] [address] Result Comment: Nereyda mated Glomerular Filtration Rate [...] actual GFR. Performed By: #### 2 4323-8 ####[facility] LABCLIA [id number] [place] [address] Glucose [Mass/Vol] 129 mg/dL High 74-99 [facility] Comment on above: Order Comment: Joseline beebe Type: BLOOD SPECIMENOrdering Facility: [facility] Address: [address] [place] [address] Result Comment: The [place] [employer] Association (ADA) provides guidance for cutoff [...] Standards of Medical Care in Diabetes 2016, [place] [employer]. Diabetes Care. 2016.39(Suppl 1). Performed By: #### 2 4323-8 ####[facility] LABCLIA [id number] [place] [address] Potassium [Moles/Vol] 4.6 mmol/L Normal 3.7-5.1 [facility] Comment on above: Order Comment: Speci men Type: BLOOD SPECIMENOrdering Facility: [facility] Address: [address] [place] [address] Performed By: #### 2 4323-8 ####[facility] LABCLIA [id number] [place] [address] Protein [Mass/Vol] 7.5 g/dL Normal 6.3-8.0 [facility] Comment on above: Order Comment: Speci men Type: BLOOD SPECIMENOrdering Facility: [facility] Address: [address] [place] [address] Performed By: #### 2 4323-8 ####[facility] LABCLIA [id number] [place] [address] Sodium [Moles/Vol] 138 mmol/L Normal 136-144 [facility] Comment on above: Order Comment: Speci men Type: BLOOD SPECIMENOrdering Facility: [facility] Address: [address] [place] [address] Performed By: #### 2 4323-8 ####[facility] LABCLIA [id number] [place] [address] Urea nitrogen [Mass/Vol] 22 mg/dL High 7-21 [facility] Comment on above: Order Comment: Speci men Type: BLOOD SPECIMENOrdering Facility: [facility] Address: [address] [place] [address] Performed By: #### 2 4323-8 ####[facility] LABCLIA [id number] [place] [id number] FLOW CYTOMETRY REFLEXon - CASE REPORT Normal [facility] Comment on above: Order Comment: Speci men Type: BLOOD SPECIMENOrdering Facility: [facility] Address: [address] [place] [address] Result Comment: Flow Cytometry Case: [id number] Authorizing Provider: Drake Anand MD Collected: 07/28/2021 02:03 PM Ordering Location: Laboratory Medicine Received: 07/29/2021 12:43 PM Pathologist: Tang Oquendo MD Specimen: BLOOD Performed By: #### F LOWREFLEX ####[facility] LABCLIA [id number] [address] GROSS DESCRIPTION A. BLOOD. Normal [facility] Comment on above: Order Comment: Speci men Type: BLOOD SPECIMENOrdering Facility: [facility] Address: [address] [place] [address] Result Comment: Rece ived 4ml of peripheral blood in EDTA. Performed By: #### F LOWREFLEX ####[facility] LABCLIA [id number] [address] [place] [facility] INTERPRETATION Normal [facility] Comment on above: Order Comment: Speci men Type: BLOOD SPECIMENOrdering Facility: [facility] Address: [address] [place] [address] Result Comment: Spec imen type: BLOOD CBC [...] Negative CD200 B-cells Positive FMC7 B-cells Positive [place]/Lambda B-cells Monotypic kappa Flow cytometric analysis of [...] developed and its performance characteristics determined by [facility]???s [facility] Pathology and Laboratory Medicine [place] ([facility]). It has not been cleared or approved by the FDA. [facility] is regulated under CLIA as qualified to perform high-complexity testing. This test is used for clinical purposes. It should not be regarded as investigational or for research. CALI/JUAN MIGUEL 07/29/21 Diagnostic interpretation performed at [facility], [address] [place] [address] CLIA# [id number] Supervisor [employer]: Bharath Light M.D. Performed By: #### F LOWREFLEX ####[facility] LABCLIA [id number] [address] PERIPHERAL BLOOD LOW GRADE L EUK MARKERS FCon 07-28-2021 FLOW CYTOMETRY ORDER STATUS See Results in chart under F case ID Normal [facility] Comment on above: Order Comment: Speci men Type: BLOOD SPECIMENOrdering Facility: [facility] Address: [address] [place] [address] Performed By: #### P BLGLY ####[facility] LABCLIA [id number] [address] CNPNon 07-22-2021 CNPN Telephone (HEMASA) -------- JOHANNY FORBES ([id number]) 1940 F Date Time Provider Department 07/22/21 [...] discuss further. She can be reached at [phone]. ROSA ELENA Esteban MD 07/22/2021 2:38 PM [...] Fully Assessed Reason for Visit: Patient Question [[id number]] Prescriptions as of 07/22/2021 - aspirin 81 [...] Encounter Status:Closed by RU BLACKMAN on [facility]/22/21 [facility] C[facility]N Tele[facility] (SERAFIN) -------- JOHANNY FORBES ([id number]) 1940 F Date Time Provider Department 07/01/21 RU BLACKMAN During your visit today, we recorded the following information about you: Ru Blackman RN 07/01/2021 2:07 PM Signed Received call from pt wanting to know if Dr Anand got her results for the genetic testing on her tumor? BHUPENDRAK: Any message for pt? Or she can be reached at [phone]. ROSA ELENA Esteban MD 07/01/2021 2:49 PM [...] Status:Closed by RU BLACKMAN on 07/04/21 Normal [facility] MG MAMM DIAGNOSTIC 3D COY CA Don 05-03-2021 MG MAMM DIAGNOSTIC 3D COY CAD Patient: JOHANNY FORBES Exam Date: 05/03/2021 : 1940 Gender:F Ordering : DRAKE ANAND Admission #: [id number] Family : DR JORGE LUIS WHITEHEAD Order #: [id number] CLICK HERE TO VIEW EXAM RADIOLOGY REPORT PROCEDURE: MAMMOGRAM DIAGNOSTIC 3D BILATERAL CAD COMPARISON: MAMMO SCREEN DIG COY, 01/22/2012. INDICATIONS: Secondary malignant neoplasm of axilla Calculator Name NCI Breast Cancer Risk Assessment Tool 5 Year Breast Cancer Risk n/a% Lifetime Breast Cancer Risk n/a% Personal Breast Cancer Yes Personal Ovarian Cancer No Treatments None Family Cancers None LOCATION: [facility] BREAST COMPOSITION: Scattered areas fibroglandular density. [...] MD on 05/03/2021 at 14:29 Normal [facility] POINT OF CARE GLUCOSEon 12-0 Glucose [Mass/Vol] 169 mg/dL Critically high 74-106 [facility] Comment on above: Performed By: #### P OCGLUC #### [facility] [address] [place] [address] Dr. Dontae Vallejo CBC AUTO DIFFon 03-14-2021 BASO # 0.1 103/ul Normal 0.0-0.1 [facility] Comment on above: Performed By: #### C BC #### [facility] [address] [place] [address] Dr. Dontae Vallejo Basophils/100 WBC (Bld) 0.6 % Normal 0.2-2.0 [facility] Comment on above: Performed By: #### C BC #### [facility] [address] [place] [address] Dr. Dontae Vallejo EO # 0.4 103/ul Normal 0.0-0.7 [facility] Comment on above: Performed By: #### C BC #### [facility] [address] [place] [address] Dr. Dontae Vallejo Eosinophils/100 WBC (Bld) 4.1 % Normal 0.9-7.0 [facility] Comment on above: Performed By: #### C BC #### [facility] [address] [place] [address] Dr. Dontae Vallejo Erythrocyte distribution width (RBC) [Ratio] 13.1 % Normal 11.0-15.0 [facility] Comment on above: Performed By: #### C BC #### [facility] [address] [place] [address] Dr. Dontae Vallejo Hematocrit (Bld) [Volume fraction] 37.1 % Normal 36.0-48.0 [facility] Comment on above: Performed By: #### C BC #### [facility] [address] [place] [address] Dr. Dontae Vallejo Hemoglobin (Bld) [Mass/Vol] 12.1 g/dL Normal 12.0-16.0 [facility] Comment on above: Performed By: #### C BC #### [facility] [address] [place] [address] Dr. Dontae Vallejo IG # 0.03 10e3/ul Normal 0.00-0.03 [facility] Comment on above: Performed By: #### C BC #### [facility] [address] [place] [address] Dr. Dontae Vallejo IG % 0.3 % Normal 0.0-0.5 [facility] Comment on above: Performed By: #### C BC #### [facility] [address] [place] [address] Dr. Dontae Vallejo LYMPH # 4.5 103/ul Critically high 1.2-3.8 [facility] Comment on above: Performed By: #### C BC #### [facility] [address] [place] [address] Dr. Dontae Vallejo Lymphocytes/100 WBC (Bld) 44.8 % Normal 20.5-60.0 [facility] Comment on above: Performed By: #### C BC #### [facility] [address] [place] [address] Dr. Dontae Vallejo MANUAL DIFF REQ NO Normal [facility] Comment on above: Performed By: #### C BC #### [facility] [address] [place] [address] Dr. Dontae Vallejo MCH (RBC) [Entitic mass] 30.3 pg Normal 26.7-34.0 [facility] Comment on above: Performed By: #### C BC #### [facility] [address] [place] [address] Dr. Dontae Vallejo MCHC (RBC) [Mass/Vol] 32.6 g/dL Normal 29.9-35.2 [facility] Comment on above: Performed By: #### C BC #### [facility] [address] [place] [address] Dr. Dontae Vallejo MCV (RBC) [Entitic vol] 92.8 fL Normal 81.0-99.0 [facility] Comment on above: Performed By: #### C BC #### [facility] [address] [place] [address] Dr. Dontae Vallejo MONO # 0.5 103/ul Normal 0.3-0.8 [facility] Comment on above: Performed By: #### C BC #### [facility] [address] [place] [address] Dr. Dontae Vallejo Monocytes/100 WBC (Bld) 5.3 % Normal 1.7-12.0 [facility] Comment on above: Performed By: #### C BC #### [facility] [address] [place] [address] Dr. Dontae Vallejo NEUT # 4.5 103/ul Normal 1.4-6.5 [facility] Comment on above: Performed By: #### C BC #### [facility] [address] [place] [address] Dr. Dontae Vallejo Neutrophils/100 WBC (Bld) 44.9 % Normal 43.0-75.0 [facility] Comment on above: Performed By: #### C BC #### [facility] [facility] [address] [place] [address] Dr. Dontae Vallejo Platelet mean volume (Bld) [Entitic vol] 9.8 fL Normal 9.5-13.5 [facility] Comment on above: Performed By: #### C BC #### [facility] [address] [address] [address] Dontae Vallejo PLT 251 103/ul Normal 150-450 [facility] Comment on above: Performed By: #### C BC #### [facility] [address] [address] [address] Dontae Vallejo RBC 4.00 106/ul Critically low 4.20-5.40 The [facility] Comment on above: Performed By: #### C BC #### [facility] [id number] Dontae Vallejo WBC 10.1 103/ul Normal 4.0-11.0 [facility] Comment on above: Performed By: #### C BC #### [facility] [address] [place] [address] Dr. Dontae Vallejo Cov[facility]on 02-15 SARS-CoV-2 (COVID-19) RNA DEIDRE+probe Ql (Unsp spec) Not detected Normal NOT DETECTED [facility] Comment on above: Result Comment: This test is not yet approved or cleared by the [place] FDA. When there are no FDA-approved or cleared tests available, and other criteria are met, FDA can make tests available under an emergency access mechanism called an Emergency Use Authorization (EUA). The EUA for this test is supported by the [employer] of Health and Human Service's (HHS's) declaration [...] SARS-CoV-2. Performed By: #### C VDTBH #### [facility] [address] [place] [address] Dr. Dontae Vallejo PROF CHEM 8 (BAS METB)on Anion gap [Moles/Vol] 10.5 mmol/L Normal [facility] Comment on above: Performed By: #### B MP #### [facility] [address] [address] [address] Dontae Vallejo Calcium [Mass/Vol] 9.5 mg/dL Normal 8.4-10.2 [facility] Comment on above: Performed By: #### B MP #### [facility] [address] [address] [address] Dontae Vallejo Chloride [Moles/Vol] 104 mmol/L Normal 98-107 [facility] Comment on above: Performed By: #### B MP #### [facility] [address] [address] [address] Dontae Vallejo CO2 [Moles/Vol] 26.8 mmol/L Normal 22.0-30.0 [facility] Comment on above: Performed By: #### B MP #### [facility] [address] [place] [address] Dr. Dontae Vallejo Creatinine [Mass/Vol] 1.51 mg/dL Critically high 0.52-1.04 [facility] Comment on above: Performed By: #### B MP #### [facility] [address] [place] [address] Dr. Dontae Vallejo EGFR-AF NEPALESE 40 mL/min/1.73m2 Critically low >=60 [facility] Comment on above: Performed By: #### B MP #### [facility] [address] [address] [address] Dontae Vallejo EGFR-NON AF NEPALESE 33 mL/min/1.73m2 Critically low >=60 [facility] Comment on above: Performed By: #### B MP #### [facility] [address] [address] [address] Dontae Vallejo Glucose [Mass/Vol] 145 mg/dL Critically high 74-106 T [facility] Comment on above: Performed By: #### B MP #### [facility] [address] [place] [address] Dr. Dontae Vallejo Potassium [Moles/Vol] 4.3 mmol/L Normal 3.4-5.0 [facility] Comment on above: Performed By: #### B MP #### [facility] [address] [place], [place] [address] Dr. Dontae Vallejo Sodium [Moles/Vol] 137 mmol/L Normal 137-145 [facility] Comment on above: Performed By: #### B MP #### [facility] [address] [place], [place] [address] Dr. Dontae Vallejo Urea nitrogen [Mass/Vol] 29.0 mg/dL Critically high 7.0-17.0 [facility] Comment on above: Performed By: #### B MP #### [facility] [address] [place], [place] [address] Dr. Dontae Vallejo Urea nitrogen/Creatinin e [Mass ratio] 19.2 mg/mg Normal [facility] Comment on above: Performed By: #### B MP #### [facility] [address] [place], [place] [address] Dr. Dontae Vallejo US FINE NDL ASP W US GDNCEon 02-07-2021 US FINE NDL ASP W US GDNCE Begin Addendum #1 COLLECTED DATE/TIME: 01/24/2021 14:27 EDT Final Diagnosis Report for [facility] [place], [place] (A/B) LEFT AXILLA MASS; FINE NEEDLE [...] (FNA). 2. Pathology results are pending. Normal [facility] LEUKEMIA/LYMPHOMA PROFILEon 01-31-2021 ANALYSIS AND GATING STRATEGY Comment Normal [facility] Comment on above: Result Comment: 8 co geri analysis with 7-AAD, CD45/SSC gating Performed at: -Y Performed By: #### F LOWL #### [facility] [address] [place] [address] Dr. Dontae Vallejo ASSESSMENT OF LEUKOCYTES Comment [facility] Comment on above: Result Comment: Ghulam a and lambda staining cannot be interpreted due to nonspecific light chain binding. A subset of T cells show CD10 expression. CD4:CD8 ratio 2.3 Analysis of the viable lymphoid cells shows: B cells 18%, T cells 82% Performed at: -Y Performed By: #### F LOWL #### [facility] [address] [place] [address] Dr. Dontae Vallejo COMMENT Comment [facility] Comment on above: Result Comment: Each antibody in this assay was utilized to assess for potential abnormalities of studied cell populations or to characterize identified abnormalities. . This test was developed and its performance characteristics determined by [employer]. It has not been cleared or approved by the [place] Food and Drug Administration. . The FDA has determined that such clearance or approval is not necessary. This test is used for clinical purposes. It should not be regarded as investigational or for research. Performed at: TG Performed By: #### F LOWL #### [facility] [address] [place] [address] Dr. Dontae Vallejo FLOW COMMENT Comment [facility] Comment on above: Result Comment: Ghulam a [...] -Y Performed By: #### F LOWL #### [facility] [address] [address] [address] Dontae Vallejo FLOW INTERPRETATION Comment Normal [facility] Comment on above: Result Comment: B ce ll clonality cannot be evaluated, T cells with CD10 expression in a small subset, low viability specimen, see comment. Performed at: -Y Performed By: #### F LOWL #### [facility] [address] [address] [address] Dontae Vallejo PHENOTYPE CHART Comment Normal [facility] Comment on above: Result Comment: CD2 Normal CD3 Normal CD4 Normal CD5 Normal CD7 Normal CD8 Normal CD10 See Text CD11b Normal CD19 Normal CD20 Normal CD23 Normal CD38 Normal CD45 Normal CD56 Normal CD57 Normal [facility]-7 Normal HLA-DR Normal KAPPA See Text LAMBDA See Text Performed at: -Y Performed By: #### F LOWL #### [facility] [address] [address] [address] Dontae Vallejo RESULTING PATH NAME Comment Normal [facility] Comment on above: Result Comment: Raul Oliveros M.D. Performed at: -Y Performed By: #### F LOWL #### [facility] [address] [address] [address] Dontae Vallejo Specimen type Nom (Spec) Comment Normal [facility] Comment on above: Result Comment: Left axillary mass lymph node Performed at: -Y Performed By: #### F LOWL #### [facility] [id number] Dontae Vallejo VIABILITY Comment [facility] Comment on above: Result Comment: 22% This [...] -Y Performed By: #### F LOW #### [facility] [address] [place] [address] Dr. Dontae Vallejo US EXT NON VASC [...] TENZIN FERGUSON Date: 2021-01-07 16:37 Normal [facility] CBC AUTO DIFFon 11-02-2020 BASO # 0.1 103/ul Normal 0.0-0.1 [facility] Comment on above: Performed By: #### C BC #### [facility] [address] [place] [address] Jose Bambi Basophils/100 WBC (Bld) 0.6 % Normal 0.2-2.0 [facility] Comment on above: Performed By: #### C BC #### [facility] [address] [place] [address] Jose Bambi EO # 0.4 103/ul Normal 0.0-0.7 [facility] Comment on above: Performed By: #### C BC #### [facility] [address] [place] [address] Jose Bambi Eosinophils/100 WBC (Bld) 3.7 % Normal 0.9-7.0 [facility] Comment on above: Performed By: #### C BC #### [facility] [address] [place], [place] [id number] Jose Bambi Erythrocyte distribution width (RBC) [Ratio] 13.2 % Normal 11.0-15.0 [facility] Comment on above: Performed By: #### C BC #### [facility] [address] [place], [place] [id number] Jose Bambi Hematocrit (Bld) [Volume fraction] 36.1 % Normal 36.0-48.0 [facility] Comment on above: Performed By: #### C BC #### [facility] [address] [place] [address] Jose Lacy Hemoglobin (Bld) [Mass/Vol] 11.7 g/dL Critically low 12.0-16.0 [facility] Comment on above: Performed By: #### C BC #### [facility] [address] [place] [address] Josevlad Lacy IG # 0.03 10e3/ul Normal 0.00-0.03 [facility] Comment on above: Performed By: #### C BC #### [facility] [address] [place] [address] Jose Lacy IG % 0.3 % Normal 0.0-0.5 [facility] Comment on above: Performed By: #### C BC #### [facility] [address] [place] [address] Jose Lacy LYMPH # 4.4 103/ul Critically high 1.2-3.8 The [facility] Comment on above: Performed By: #### C BC #### [facility] [address] [place] [address] Jose Lacy Lymphocytes/100 WBC (Bld) 44.9 % Normal 20.5-60.0 [facility] Comment on above: Performed By: #### C BC #### [facility] [address] [place] [address] Jose Lacy MANUAL DIFF REQ NO Normal [facility] Comment on above: Performed By: #### C BC #### [facility] [address] [place], [place] [id number] Jose Lacy MCH (RBC) [Entitic mass] 30.5 pg Normal 26.7-34.0 [facility] Comment on above: Performed By: #### C BC #### [facility] [address] [place] [address] Jose Lacy MCHC (RBC) [Mass/Vol] 32.4 g/dL Normal 29.9-35.2 [facility] Comment on above: Performed By: #### C BC #### [facility] [address] [id number] Jose Lacy MCV (RBC) [Entitic vol] 94.0 fL Normal 81.0-99.0 [facility] Comment on above: Performed By: #### C BC #### [facility] [address] [id number] Jose Lacy MONO # 0.6 103/ul Normal 0.3-0.8 [facility] Comment on above: Performed By: #### C BC #### [facility] [address] [place], [place] [id number] Jose Lacy Monocytes/100 WBC (Bld) 5.7 % Normal 1.7-12.0 [facility] Comment on above: Performed By: #### C BC #### [facility] [address] [place] [address] Jose Millarden NEUT # 4.4 103/ul Normal 1.4-6.5 [facility] Comment on above: Performed By: #### C BC #### [facility] [address] [place], [place] [id number] Jose Lacy Neutrophils/100 WBC (Bld) 44.8 % Normal 43.0-75.0 [facility] Comment on above: Performed By: #### C BC #### [facility] [address] [place], [place] [id number] Jose Lacy Platelet mean volume (Bld) [Entitic vol] 11.3 fL Normal 9.5-13.5 [facility] Comment on above: Performed By: #### C BC #### [facility] [address] [place], [place] [address] Jose Bambi PLT 239 103/ul Normal 150-450 [facility] Comment on above: Performed By: #### C BC #### [facility] [address] [place], [place] [address] Jose Bambi RBC 3.84 106/ul Critically low 4.20-5.40 [facility] Comment on above: Performed By: #### C BC #### [facility] [address] [place], [place] [address] Jose Lacy WBC 9.8 103/ul Normal 4.0-11.0 [facility] Comment on above: Performed By: #### C BC #### [facility] [address] [place], [place] [address] Jose Lacy Vital Signs Date Time Vital Sign Value Performing Clinician Facility 05-14-2023 13:52-0500 Body height 160 cm Reinaldo Rogel MD Work Phone: [facility] 05-14-2023 13:52-0500 Body mass index (BMI) [Ratio] 26.57 kg/m2 Reinaldo Rogel MD Work Phone: [facility] 05-14-2023 13:52-0500 Body weight 68.04 kg Reinaldo Rogel MD Work Phone: [facility] 05-14-2023 13:52-0500 Diastolic blood pressure 70 mm[Hg] Reinaldo Rogel MD Work Phone: [facility] 05-14-2023 13:52-0500 Heart rate 68 /min Reinaldo Rogel MD Work Phone: [facility] 05-14-2023 13:52-0500 SaO2% (BldA) [Mass fraction] 98 % Reinaldo Rogel MD Work Phone: [facility] 05-14-2023 13:52-0500 Systolic blood pressure 122 mm[Hg] Reinaldo Rogel MD Work Phone: [facility] 03-12-2022 12:15-0500 Body height 160.02 cm Gabi Gaona Other [facility] Other 03-12-2022 12:15-0500 Body mass index (BMI) [Ratio] 26.57 kg/m2 Gabi Gaona Other [facility] Other 03-12-2022 12:15-0500 Body temperature 97.8 [degF] Gabi Candelaria Other [facility] Other 03-12-2022 12:15-0500 Body weight 68.04 kg Gabi Candelaria Other [facility] Other 03-12-2022 12:15-0500 Diastolic blood pressure 68 mm[Hg] Gabi Candelaria Other [facility] Other 03-12-2022 12:15-0500 Respiratory rate 18 /min Gabi Candelaria Other [facility] Other 03-12-2022 12:15-0500 SaO2% (BldA) [Mass fraction] 98 % Gabi Candelaria Other [facility] Other 03-12-2022 12:15-0500 Systolic blood pressure 123 mm[Hg] Gabi Candelaria Other [facility] Other 01-31-2022 15:09-0400 Body height 158.9 cm Simin Lama MD Work Phone: [facility] 01-31-2022 15:09-0400 Body temperature 97.3 [degF] Simin Lama MD Work Phone: [facility] 01-31-2022 15:09-0400 Body weight 70.03 kg Simin Lama MD Work Phone: [facility] 01-31-2022 15:09-0400 Diastolic blood pressure 65 mm[Hg] Simin Lama MD Work Phone: [facility] 01-31-2022 15:09-0400 Heart rate 62 /min Simin Lama MD Work Phone: [facility] 01-31-2022 15:09-0400 Respiratory rate 16 /min Simin Lama MD Work Phone: [facility] 01-31-2022 15:09-0400 SaO2% (BldA) [Mass fraction] 100 % Simin Lama MD Work Phone: [facility] 01-31-2022 15:09-0400 Systolic blood pressure 142 mm[Hg] Simin Lama MD Work Phone: [facility] 07-28-2021 14:24-0400 Body height 158.9 cm Drake Anand MD Work Phone: [facility] 07-28-2021 14:24-0400 Body temperature 97.9 [degF] Drake Anand MD Work Phone: [facility] 07-28-2021 14:24-0400 Body weight 69.94 kg Drake Anand MD Work Phone: [facility] 07-28-2021 14:24-0400 Diastolic blood pressure 74 mm[Hg] Drake Anand MD Work Phone: [facility] 07-28-2021 14:24-0400 Heart rate 56 /min Drake Anand MD Work Phone: [facility] 07-28-2021 14:24-0400 Respiratory rate 18 /min Drake Anand MD Work Phone: [facility] 07-28-2021 14:24-0400 SaO2% (BldA) [Mass fraction] 98 % Drake Anand MD Work Phone: [facility] 07-28-2021 14:24-0400 Systolic blood pressure 150 mm[Hg] Drake Anand MD Work Phone: [facility] Encounters Encounter Date Encounter Type [...] cerebral infarction (CMS/HCC); Coronary artery disease involving wainwright coronary artery of wainwright heart without angina pectoris (CMS/HCC); Pulmonary hypertension, [...] Start: 05-15-2022 End: 05-15-2022 ambulatory Simin Lama Facility:[facility] Start: 05-15-2022 Telephone encounter Simin stanford MD Work Phone: [facility] Comment on above: Orders Start: 05-15-2022 End: 05-15-2022 ambulatory DO Jorge Luis Furlong Work Phone: [facility] Work Phone: Start: 05-15-2022 End: 05-15-2022 Patient encounter procedure DO Jorge Luis Furlong Work Phone: [facility] Work Phone: Start: 03-12-2022 End: 03-12-2022 ambulatory Gabi Gaona Other [facility] Other Start: 03-12-2022 Office outpatient ne w 20 minutes Gabi Gaona [facility] Start: 02-13-2022 Telephone encounter Shiva Bess Hematology/Oncology Comment on above: Appointment Start: 01-31-2022 End: 01-31-2022 ambulatory SIMIN LAMA Facility:[facility] Start: 01-31-2022 End: 01-31-2022 ambulatory Simin Lama MD Work Phone: Hematology/Oncology Comment on above: 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, left (HCC) (Primary Dx) Start: 01-31-2022 End: 01-31-2022 Patient encounter procedure Simin Lama MD Work Phone: [facility] Start: 01-31-2022 Telephone encounter [facility]ford [facility] Comment on above: Appointment Start: 07-28-2021 End: 07-28-2021 ambulatory DRAKE ANAND Facility:[facility] Start: 07-28-2021 End: 07-28-2021 ambulatory [...] PA-C Work Phone: Hematology/Oncology Comment on above: 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 Start: 03-19-2021 Encounter for preprocedural cardiovascular examination DR TIM NIÑO [facility] Start: 03-19-2021 Encounter for preprocedural laboratory examination DR TIM NIÑO [facility] Start: 03-18-2021 End: 12-03-[address] TIM [...] Performing Clinician Start: 05-15-2022 Bilateral mammography Anai eBasley Jorge Luis Shearupali Work Phone: Start: 05-12-2021 Adult depression scr eening assessment Ru Blackman RN Start: 01-22-2019 Echocardiography Plan of Treatment Date Care Activity Detail Author Start: 03-19-2025 Glaucoma screening Diabetes: R etinopathy Screening [facility] Start: 07-28-2024 DIABETES SCREEN DIABETES SCREEN [facility] Start: 05-14-2024 Medicare Annual Well ness (AWV) Medicare Annual Wellness (AWV) [facility] Start: 04-11-2024 DIABETES SCREEN DIABETES SCREEN [facility] Start: 09-24-2023 End: 09-24-2023 Patient encounter procedure 09/24/2023 2:00 PM EDT Office Visit [facility] [address] [place] [address] Reinaldo Rogel MD [address] [place] [address] [facility] Start: 06-15-2023 Hemoglobin A1c measurement Diabetes: Hemoglobin A1C [facility] Start: 06-03-2022 End: 08-03-2022 CBC W Auto Differential panel - Blood CBC + DIFF Lab Routine 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, left (HCC) Expected: 06/03/2022 (Approximate), Expires: 08/03/2022 [facility] Work Phone: Comment on above: Expected: 06/03/2022 (Approximate), Expires: 08/03/2022 Start: 06-03-2022 End: 08-03-2022 Comprehensive metabolic 2000 panel - Serum or Plasma COMP METABOLIC PANEL Lab Routine 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, left (HCC) Expected: 06/03/2022 (Approximate), Expires: 08/03/2022 [facility] Work Phone: Comment on above: Expected: 06/03/2022 (Approximate), Expires: 08/03/2022 Start: 05-12-2022 Adult depression screening assessment DEPRESSION SCREENING [facility] Start: 04-16-2022 ADVANCE DIRECTIVE DISCUSSION ADVANCE DIRECTIVE DISCUSSION [facility] Start: 04-16-2022 DEPRESSION ASSESSMENT DEPRESSION ASS ESSMENT [facility] Start: 02-14-2022 End: 03-02-2023 Diagnostic mammography computer-aided detcj uni 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 Start: 06-07-2021 COVID-19 VACCINE (4 - Booster for Pfizer series) COVID-19 VACCINE (4 - Booster for Pfizer series) [facility] Start: 04-16-2021 ADVANCE DIRECTIVE DISCUSSION ADVANCE DIRECTIVE DISCUSSION [facility] Start: 04-16-2021 DEPRESSION ASSESSMENT DEPRESSION ASS ESSMENT [facility] Start: 04-01-2021 COVID-19 VACCINE (4 - Booster for Pfizer series) COVID-19 VACCINE (4 - Booster for Pfizer series) [facility] Start: 2006 BONE DENSITY BONE DENSITY [facility] Start: 1991 SHINGRIX VACCINE (1 of 2) SHINGRIX VACCINE (1 of 2) [facility] Start: 1960 Urine microalbumin profile DTAP,TDAP,TD (1 - Tdap) [facility] End: 07-28-2022 CBC W Auto Differential panel - Blood CBC + DIFF Lab Routine 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, left (HCC) Every 3 months for 10 Occurrences starting 07/28/2021 until 07/28/2022, 1 completed [facility] Work Phone: Comment on above: Every 3 months for 1 0 Occurrences starting 07/28/2021 until 07/28/2022, 1 completed End: 07-28-2022 Comprehensive metabolic 2000 panel - Serum or Plasma COMP METABOLIC PANEL Lab Routine 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, left (HCC) Every 3 months for 10 Occurrences starting 07/28/2021 until 07/28/2022 [facility] Work Phone: Comment on above: Every 3 months for 1 0 Occurrences starting 07/28/2021 until 07/28/2022 End: 06-14-2023 Diagnostic mammography computer-aided detcj bi [facility] Radiology Routine 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, left (HCC) 1 Occurrences starting 05/15/2022 until 06/14/2023 [facility] Work Phone: Comment on above: 1 Occurrences starti ng 05/15/2022 until 06/14/2023 End: 08-27-2022 Screening mammography bi 2-view breast inc cad DANIELLE SCREENING Radiology Routine 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, left (HCC) 1 Occurrences starting 07/28/2021 until 08/27/2022 [facility] Work Phone: Comment on above: 1 Occurrences starti ng 07/28/2021 until 08/27/2022 End: 06-14-2023 Us breast uni real time with image limited [facility] Work Phone: Comment on above: 1 Occurrences starti ng 05/15/2022 until 06/14/2023 [facility] Immunizations Immunization Date Immunization Notes Care Provider Fa [facility] 01-23-2023 Influenza, High-dose Seasonal, Quadrivalent, Preservative Free Reinaldo Rogel MD Work Phone: [facility] 02-08-2022 Influenza, High-dose Seasonal, Quadrivalent, Preservative Free Reinaldo Rogel MD Work Phone: [facility] 02-04-2021 COVID-19 vaccine, ag e 12+ yr (PFIZER-BIONTECH - PURPLE TOP) Ru Blackman RN [facility] 01-19-2021 Influenza, High-dose Seasonal, Quadrivalent, Preservative Free Reinaldo Rogel MD Work Phone: [facility] 06-03-2020 COVID-19 vaccine, ag e 12+ yr (PFIZER-BIONTECH - PURPLE TOP) Ru Blackman RN [facility] 05-12-2020 COVID-19 vaccine, ag e 12+ yr (PFIZER-BIONTECH - PURPLE TOP) Ru Blackman RN [facility] 01-15-2020 influenza, seasonal, injectable Reinaldo Rogel MD Work Phone: [facility] 12-26-2019 influenza, high dose seasonal, preservative-free Ru Blackman RN [facility] 01-24-2018 influenza, high dose seasonal, preservative-free Ru Blackman RN [facility] 01-25-2017 influenza, high dose seasonal, preservative-free Ru Blackman RN [facility] 01-20-2015 influenza, injectabl e, quadrivalent, contains preservative Reinaldo Rogel MD Work Phone: [facility] 10-12-2014 pneumococcal conjuga te vaccine, 13 valent Ru Blackman RN [facility] 04-05-2010 pneumococcal polysaccharide vaccine, 23 valent Ru Blackman RN [facility] Payers Date Payer Category Payer Unknown [id number] 2022 Self-pay [id number] 2018 Unknown ANTHEM BLUE CROS S AND BLUE SHIELD ANTHEM MEDIBLUE O [id number] 2018-Present [phone] [address] [place] [address] [facility] [place] [place] [id number] 2018 Unknown [id number] [id number] .[id number] 1959 Unknown [id number] 1941 Unknown [id number] 2.16.840.1.033571.3.579.2.355 1941 Unknown [id number] 2.16.840.1.965114.3.579.2.593 1941 Unknown [id number] 2.16.840.1.118663.3.579.2.593 1941 Unknown [id number] 2.16.840.1.628642.3.579.2.593 1941 Unknown [id number] 2.16.840.1.368301.3.579.2.593 1941 Unknown [id number] 2.16.840.1.783969.3.579.2.593 1941 Unknown [id number] 2.16.840.1.172946.3.579.2.593 1941 Unknown [id number] 2.16.840.1.161661.3.579.2.593 1941 Unknown [id number] 2.16.840.1.974091.3.579.2.125 9 1941 Unknown [id number] 2.16.840.1.708505.3.579.2.125 9 1941 Unknown [id number] 2.16.840.1.644824.3.579.2.125 9 Unknown [id number] 2.16.840.1.587292.3.579.2.531 Social History Date Type Detail Facility Start: 04-05-2021 End: 11-29-2022 Tobacco smoking status NHIS Never smoked tobacco [facility] Start: 04-05-2021 End: 11-29-2022 Tobacco use and exposure Smokeless tobacco non-user [facility] Start: 05-12-2021 End: 05-24-2023 Alcohol intake Ex-drinker (finding) [facility] Start: 1940 Sex Assigned At Not on file C [facility] Start: 07-18-2021 End: 01-31-2022 Exposure to SARS-CoV-2 (event) Not sure [facility] Start: 05-14-2023 End: 05-24-2023 Sex Assigned At [facility] [employer] Other Start: 1940 Sex Assigned At Female F [facility] History of tobacco use Passive smoker [facility] Start: 05-14-2023 End: 05-24-2023 History of Social function [facility] Start: 04-03-2023 Alcohol Comment caffeine intak e: 3-4 cups daily coffee [facility] Clinical Notes 03-18-2021 to 05-14-2023 Reinaldo [...] Yes Vision Screening: Yes, 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 We discussed telling [place] people [...] to someone more local when driving to [place] is driving is a little more difficult [...] home exercise program. Coronary artery disease involving wainwright coronary artery of wainwright heart without angina pectoris (CMS/HCC) Chronic problem, [...] May 24, 2023 documented in this encounter [facility] 05-15-2022 Miscellaneous Notes Formattin g of this note might be different from the original. Received call from pt stating she is at [facility] and needs mammogram orders sent. Orders faxed as requested. Ru Thomas RN documented in this encounter [facility] 05-15-2022 Miscellaneous Notes Formattin g of this note might be different from the original. Faxed order to Chrissie May 15, 2022 2:15 PM Honey Tucker Faxed order to Chrissie May 15, 2022 2:15 PM Honey Tucker Ordered Patient is currently at [facility] for her Mammogram. Chrissie is calling to request a new order. 1) Diagnostic Bilateral Mammogram 2) US order (that way they have it if needed) Jyothi: If in agreement, can you please place order PERLITA and I will fax back to her? Thanks! Chrissie: Gladys. [phone] Fax. [phone] Honey Tucker documented in this encounter [facility] 03-12-2022 Evaluation note Encounter Date [...] no improvement in 2 to 3 days. [employer] Other 10-31-2022 Miscellaneous Notes* Telephone Encounter - [...] advise Shiva Reyes RN documented in this encounterUniversity [facility]-2022 NoteHNO ID: [id number] Author: Simin Lama MD Service: ? Author Type: Physician Type: Progress Notes Filed: 01/31/2022 3:38 PM Note Text: PATIENT NAME: Johanny Forbes CLINIC NO.: [id number] ATTENDING PHYSICIAN: Simin Lama MD DATE OF [...] metastatic breast carcinoma, 5 cm, ER 0, IL 0, HER-2 0 by IHC. The tissue was not evaluated for flow cytometry to rule out a lymphoproliferative process. 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 Differential included mammary, skin, urothelial, pancreaticobiliary and pulmonary primaries. ER 0, IL 0, HER-2 negative by CAMERON. 2021 PET [...] 04/11/2021 141 Chloride (mmol (more content not included)...[facility] 01-31-2022 Miscellaneous Notes* Telephone Encounter - Honey Tucker - 01/31/2022 4:[address] Lama, patient had a previous abnormal L Mammogram and never followed up. He would like L Mammogram completed now. Faxed order to [place] scheduling per patient's hospital request. Honey Tucker documented in this encounterUniversity [facility] History of Present illness Narrative* Simin Lama MD - 01/31/2022 3:19 PM EDT PATIENT NAME: Johanny Forbes [facility] NO.: [id number] ATTENDING PHYSICIAN: Simin Lama MD DATE OF [...] metastatic breast carcinoma, 5 cm, ER 0, IL 0, HER-2 0 by IHC. The tissue was not evaluated for flow cytometry to rule out a lymphoproliferative process. 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 Differential included mammary, skin, urothelial, pancreaticobiliary and pulmonary primaries. ER 0, IL 0, HER-2 negative by CAMERON. 2021 PET [...] 07/28/2021 3.28 1.00 - 4.00 k/uL Final Morris% Date Value Ref Range Status 07/28/2021 5.9 % Final Abs Morris Date Value Ref Range Status 07/28/2021 0.46 [...] Maira Saunders, [place] and [place], of the [facility] breast pathology department, who concur. [...] do not hesitate to contact me at [phone]. Simin Lama MD Hematology/Medical Oncology [facility] I spent a total of 30 minutes on the date of the service which included preparing to see the patient, [id number] patient care, completing clinical documentation, obtaining and/or reviewing separately obtained history, performing a medically appropriate examination, counseling and educating the pat ient/family/caregiver, and ordering medications, tests, or procedures. Medical Decision Making: Medical Decision Making Level: 1 - N/A CC: DO Jorge Luis Webster DO documented in this encounterUniversity Hospitals [facility]04-14-2022 NoteHNO ID: [id number] Author: Drake Anand MD Service: ? Author [...] metastatic breast carcinoma, 5 cm, ER 0, IL 0, HER-2 0 by IHC. The tissue was not evaluated for flow cytometry to rule out a lymphoproliferative process. 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 Differential included mammary, skin, urothelial, pancreaticobiliary and pulmonary primaries. ER 0, IL 0, HER-2 negative by CAMERON. ? 2021 [...] date of the (more content not included)... [facility]04-14-2022 History of Present illness Narrative* Drake [...] metastatic breast carcinoma, 5 cm, ER 0, IL 0, HER-2 0 by IHC. The tissue was not evaluated for flow cytometry to rule out a lymphoproliferative process. 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 Differential included mammary, skin, urothelial, pancreaticobiliary and pulmonary primaries. ER 0, IL 0, HER-2 negative by CAMERON. 2021 PET [...] which included preparing to see the patient, [id number] patient care, completing clinical documentation, obtaining and/or reviewing separately obtained history, counseling and educating the patient/family/caregiver, ordering medications, herlinda ts, or procedures, independently interpreting results (not separately reported) and communicating results to the patient/family/caregiver. documented in this encounterUniversity [facility]als [facility]04-08-2022 Miscellaneous Notes* Telephone Encounter - Thao Alanis [...] discuss further. She can be reached at [phone]. Ru Blackman RN documented in this encounterUniversity Hospitals [facility]12-28-2021 Miscellaneous Notes* Telephone Encounter - Amarilys Murry PA-C - 04/12/2021 4:42 PM EST Request received from [facility] for additional diagnosis codes for MRI breast because diagnosis providedis not a covered diagnosis. Will send with additional diagnosis codes. Will try C50.912 and C77.3. (carcinoma of breast metastatic to left axillary node) Amarilys Murry PA-C documented in this encounterUniversity Hospitals [facility]12-03-2021 NoteOPERATIVE NOTE OPERATION DATE: 03-18-21 ANESTHETIC:LMA. CHECKER AND PACKER:Loraine Tim, CHEMICAL RECOVERY OPERATOR PREOPERATIVE DIAGNOSIS:Left axillary mass. POSTOPERATIVE DIAGNOSIS: Same. [...] taken to the PACU in fair condition. [facility] Signed and Approved by: DR TIM NIÑO . 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, left (HCC)- Primary documented in this encounter [facility] note* Diagnosis 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, left (HCC)- Primary [facility] noteNo assessment information availablePark[facility] Work Phone: Evaluation note* Diagnosis [...] cerebral infarction (CMS/HCC) Coronary artery disease involving wainwright coronary artery of wainwright heart without angina pectoris (CMS/HCC) Pulmonary hypertension, mild (CMS/HCC) Other chronic pulmonary heart diseases Chronic kidney disease, stage 3b (HCC) (CMS/HCC) Type 2 diabetes mellitus with stage 3b chronic kidney disease, without long-term current use of insulin (HCC) (CMS/HCC) 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, left (CMS/HCC) Mixed dyslipidemia (CMS/HCC) documented in this encounter [facility] Diagnostic Procedure Only (Routine) - Pending Review Specialty Diagnoses / Procedures Referred By Jerry hernandes Referred To Contact [facility] Diagnoses 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, left (HCC) Procedures DANIELLE SCREENING SCREENING MAMMOGRAPHY BI 2-VIEW BREAST INC CAD Drake Anand MD [address] [place] [address] [place] [address] [facility] [address] [place] [address] Referral ID Status Reason Start Date Expiration Date Visits Requested Visits Authorized [id number] Pending Review Auto-Generat ed Referral 07/28/2021 08/27/2022 1 1 [facility] for referral (narrative)* Diagnostic Procedure Only (Routine) - Pending Review Specialty Diagnoses / Procedures Referred By Jerry hernandes Referred To Contact [facility] Diagnoses 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, left (HCC) Procedures DANIELLE DIAGNOSTIC LT DIAGNOSTIC MAMMOGRAPHY COMPUTER-AIDED DETCJ Simin Montano MD [address] [place] [address] [place] [address] [facility] [address] [place] [address] Referral ID Status Reason Start Date Expiration Date Visits Requested Visits Authorized [id number] Pending Review Auto-Generat ed Referral 02/14/2022 03/02/2023 1 1 [facility] for referral (narrative)* Diagnostic Procedure Only (Routine) - Pending Review Specialty Diagnoses / Procedures Referred By Contac t Referred To Contact [facility] Diagnoses 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, left (HCC) Procedures US BREAST LTD RT US BREAST UNI REAL TIME WITH IMAGE LIMITED Simni Lama MD [address] [place] [address] [facility] [address] [place] [address] Referral ID Status Reason Start Date Expiration Date Visits Requested Visits Authorized [id number] Pending Review Auto-Generat ed Referral 05/15/2022 06/14/2023 1 1 * Diagnostic Procedure Only (Routine) - Pending Review Specialty Diagnoses / Procedures Referred By Contac t Referred To Contact [facility] Diagnoses 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, left (HCC) Procedures US BREAST LTD LT US BREAST UNI REAL TIME WITH IMAGE LIMITED Simin Lama MD [address] [place] [address] [facility] [address] [place] [address] Referral ID Status Reason Start Date Expiration Date Visits Requested Visits Authorized [id number] Pending Review Auto-Generat ed Referral 05/15/2022 06/14/2023 1 1 * Diagnostic Procedure Only (Routine) - Pending Review Specialty Diagnoses / Procedures Referred By Contac t Referred To Contact [facility] Diagnoses 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, left (HCC) Procedures DANIELLE DIAGNOSTIC BILAT DIAGNOSTIC MAMMOGRAPHY COMPUTER-AIDED DETCJ BI Simin Lama MD [address] [place] [address] [facility] [address] [place] [address] Referral ID Status Reason Start Date Expiration Date Visits Requested Visits Authorized [id number] Pending Review Auto-Generat ed Referral 05/15/2022 06/14/2023 1 1 [facility] Summary Purpose Family History No [...] section and content) DATE CREATED AUTHOR 06/27/2018 [facility] DATE CREATED AUTHOR AUTHOR'S ORGANIZ ATION [facility] DATE CREATED AUTHOR AUTHOR'S ORGANIZ ATION 05/07/2021 [facility] DATE CREATED AUTHOR AUTHOR'S ORGANIZ ATION 12/11/2021 [facility] DATE CREATED AUTHOR AUTHOR'S ORGANIZ ATION 05/16/2022 [facility] DATE CREATED AUTHOR AUTHOR'S ORGANIZ ATION 05/24/2022 [facility] DATE CREATED AUTHOR AUTHOR'S ORGANIZ ATION 05/15/2023 [facility] EPIC Source Comments (unrecognize d section and content) In the event this informatio n is protected by the Federal Confidentiality of Alcohol and Drug Abuse Patient Records regulations: The Federal rules restrict any use of the information to criminally investigate or prosecute any alcohol or drug abuse patient.[facility] CenterIn the event this information is protected by the Federal Confidentiality of Alcohol and Drug Abuse Patient Records regulations: The Federal rules restrict any use of the information to criminally investigate or prosecute any alcohol or drug abuse patient.[facility] CenterIn the event this information is protected by the Federal Confidentiality of Alcohol and Drug Abuse Patient Records regulations: The Federal rules restrict any use of the information to criminally investigate or prosecute any alcohol or drug abuse patient.[facility] CenterIn the event this information is protected by the Federal Confidentiality of Alcohol and Drug Abuse Patient Records regulations: The Federal rules restrict any use of the information to criminally investigate or prosecute any alcohol or drug abuse patient.[facility] CenterIn the event this information is protected by the Federal Confidentiality of Alcohol and Drug Abuse Patient Records regulations: The Federal rules restrict any use of the information to criminally investigate or prosecute any alcohol or drug abuse patient.[facility] CenterIn the event this information is protected by the Federal Confidentiality of Alcohol and Drug Abuse Patient Records regulations: The Federal rules restrict any use of the information to criminally investigate or prosecute any alcohol or drug abuse patient.[facility] CenterIn the event this information is protected by the Federal Confidentiality of Alcohol and Drug Abuse Patient Records regulations: The Federal rules restrict any use of the information to criminally investigate or prosecute any alcohol or drug abuse patient.[facility] CenterIn the event this information is protected by the Federal Confidentiality of Alcohol and Drug Abuse Patient Records regulations: The Federal rules restrict any use of the information to criminally investigate or prosecute any alcohol or drug abuse patient.[facility] Reason for Visit (unrecogniz ed section and content) Reason Comments Patient Question Reason Comments Breast Cancer 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 Follow up Reason Comments Appointment Reason Comments Orders Reason Comments Orders Reason Comments Annual Exam Care Teams (unrecognized sec tion and content) Customer Manager Relationship Specialty Start Date End Date Jorge Luis Whitehead [address] [facility] [place] [address] PCP - General Family Practice 03/28/21 Customer Manager Relationship Specialty Start Date End Date Jorge Luis Whitehead [address] [place] [address] PCP - General Family Practice 03/28/21 Customer Manager Relationship Specialty Start Date End Date Jorge Luis Whitehead, DO [address] [place] [address] PCP - General Family Practice 03/28/21 Customer Manager Relationship Specialty Start Date End Date Jorge Luis Whitehead, DO [address] [place] [address] PCP - General Family Medicine 03/28/21 Customer Manager Relationship Specialty Start Date End Date Jorge Luis Whitehead, DO [address] [place] [address] PCP - General Family Medicine 03/28/21 Customer Manager Relationship Specialty Start Date End Date Jorge Luis Whitehead, DO [address] [place] [address] PCP - General Family Medicine 03/28/21 Customer Manager Relationship Specialty Start Date End Date Jorge Luis Whitehead, DO [address] [place] [address] PCP - General Family Medicine 03/28/21 Customer Manager Relationship Specialty Start Date End Date Jorge Luis Whitehead, DO [address] [place] [address] PCP - General Family Medicine 03/28/21 Team Status: Inactive Member Role Status Dates Jorge Luis Whitehead DO Primary Care Provider Active Simin Lama MD Attending Provider Active Team Status: Active Member Role Status Dates Jorge Luis Whitehead DO Primary Care Provider Active Customer Manager Relationship Specialty Start Date End Date Amanda Briones MD [address] [facility] [place], [place] [id number] PCP - General Family Medicine 09/07/22 Amanda Briones MD [address] [facility] [place], [place] [id number] PCP - Devoted 04/16/23 Linette Blankenship NP [address] [facility] [place], [place] [id number] Nurse Practitioner Family Medicine 09/07/22 Goals (unrecognized [...] BE BASED ON THE PRIMARY CLINICAL RECORDS. [employer] provides no warranty or guarantee of the accuracy or completeness of information in this document.
--- OUTSIDE RECORDS SUMMARY | 2023-06-01 06:40 | XMS_ITS | CCD ---
Author Name Unknown Address [address] [place] [address] Organization [facility] Care Team Providers Care Groundhand Name Role Phone RIAN ROSS Admitting Unavailable [...] Unavailable Jorge Luis Whitehead Primary Care Provider [phone] Jorge Luis Whitehead DO Primary Care Provider [...] Translations: [LISINOPRIL] Drug Allergy 04-05-20 21 [facility] Repository (3 sources) Penicillins; Translations: [PENICILLINS] Drug allergy (disorder) 09-21-19 16 Rash [facility] Repository (8 sources) Lisinopril Drug Allergy 04-05-20 21 Unknown [facility] (2 sources) Penicillins Drug Intolerance 04-05-20 21 Other: See Comments [facility] (6 sources) Penicillins Drug Intolerance 04-05-20 21 Other: See Comments [facility] (5 sources) Amino Acids Drug Allergy 02-01-20 Other: See Comments [facility] (1 source) Penicillin V Drug Allergy dizziness, LOC [employer] Other (1 source) Penicillins Drug allergy (disorder) 06-15-19 19 [facility] Repository (2 sources) Amino Acids Drug Allergy 02-01-20 22 Other [facility] Work Phone: (2 sources) HMG-CoA reductase inhibitor Propensity to adverse reactions 09-09-19 Other [facility] Healthcare Work Phone: (2 sources) Lisinopril Propensity to adverse reactions 04-05-20 Cough, Other [facility] Healthcare (2 sources) Penicillins Drug Intolerance 04-05-20 Other [facility] Healthcare Medications Current Medications Medication [...] disease (7 sources) Atherosclerotic heart disease of minto coronary artery without angina pectoris; Translations: [Old [...] 05-25-2023 Chronic Other aftercare (1 source) Other retirement (current) drug therapy; Translations: [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 CURRENT DRUG THERAPY] Onset: 03-28-2021 Episodic Other aftercare (1 source) 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 Chrissie is calling to request a new order. 1) Diagnostic Bilateral Mammogram 2) US order (that way they have it if needed) ABDIFATAH/Amarilys: If in agreement, can you please place order PERLITA and I will fax back to her? Thanks! Chrissie: Ph. [phone] Fax. [phone] Honey Lama MD 05/15/2022 2:11 PM Signed [...] left (HCC) [C50.912, C77.3] Order(s):DANIELLE DIAGNOSTIC BILAT [[id number]] Order #: [id number] FUTURE US BREAST LTD LT [[id number]] Order #: [id number] FUTURE US BREAST LTD RT [[id number]] Order #: [id number] FUTURE Prescriptions as of 05/15/2022 - aspirin [...] Encounter Status:Closed by HONEY TUCKER on 05/15/22 [facility] -------- JOHANNY FORBES ([id number]) 1940 F Date Time Provider Department 05/15/22 RU THOMAS During your visit today, we recorded the following information about you: Ru Thomas RN 05/15/2022 2:19 PM Signed Received call from pt stating she is at [facility] and needs mammogram orders sent. Orders faxed [...] by RU THOMAS on 05/15/22 Normal [facility] MM diagnostic mammo BI w/CAD on 05-15-2022 MM diagnostic mammo BI w/CAD [facility] Main [place] [address] [place] [address] Mammography Report Signed Patient: Johanny Forbes MR#: [id number] : 1940 Acct:[id number] Age/Sex: 82 / F ADM Date: 05/15/22 Loc: [place] Room: Type: [facility] Attending Dr: Simin Lama MD Copies to: [...] DO 05/15/22 1445 Signed By: 05/15/22 1450 [facility] COVID/FLU RT-PCRon SARS-CoV-2 (COVID-19) RNA DEIDRE+probe Ql (Unsp spec) Negative [employer] Other COVID/FLU RT-PCR Negative [employer] Other CNPKenia 02-13-2022 CNPN Telephone (HEMTSA) -------- JOHANNY FORBES ([id number]) 1940 F Date Time Provider Department 02/13/22 [...] Encounter Status:Closed by SHIVA REYES on 02/13/22 [facility] CNOVSPon 01-31-2022 CNOVSP Visit (SP) Office (HEMASA) -------- JOHANNY FORBES ([id number]) 1940 F Date Time Provider Department 01/31/22 3:15 PM SIMIN LAMA During your visit today, we recorded the following information about you: Temperature Pulse Respiration Blood pressure 97.3 degrees 62/minute 16/minute 142/65 Weight Height 70 kg 1.589 m Simin Lama MD 01/31/2022 3:38 PM Signed PATIENT NAME: Johanny Forbes CLINIC NO.: [id number] ATTENDING PHYSICIAN: Simin Lama MD DATE OF [...] metastatic breast carcinoma, 5 cm, ER 0, AL 0, HER-2 0 by IHC. The tissue was not evaluated for flow cytometry to rule out a lymphoproliferative process. 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 Differential included mammary, skin, urothelial, pancreaticobiliary and pulmonary primaries. ER 0, AL 0, HER-2 negative by CAMERON. 2021 PET [...] not included)... [facility] Telephone ([facility]) -------- JOHANNY FORBES ([id number]) 1940 F Date Time Provider Department 01/31/22 SIMIN LAMA During your visit today, we recorded the following information about you: Honey Tucker 01/31/2022 4:[address] Lama, patient had a previous abnormal L Mammogram and never followed up. He would like L Mammogram completed now. Faxed order to [facility] scheduling per patient's hospital request. Honey Tucker [...] Encounter Status:Closed by HONEY TUCKER on 02/01/22 [facility]20[facility] CNPN Telephone (ANNETTEA) -------- JOHANNY FORBES ([id number]) 1940 F Date Time Provider Department 01/30/22 [...] Fully Assessed Reason for Visit: Patient Question [0417] Prescriptions as of 01/30/2022 - aspirin 82 [...] Status:Closed by AMANDA HENDERSON on 01/30/22 [facility] RANDOM URINE W/TAMERA [place] 12-09-2021 ALBUMIN, URINE 1.7 mg/dL Normal See Note: [facility] Comment on above: Result Comment: Refe renkarolina Range: Reference Range Not established Performed By: #### 7 18, 622, 496, 66070, 36501, 27860, 6399, 7600, 905, 6517 #### [facility] [place] [address] Shift Superintendent Caustic Cresylate: César Dunn MD ALBUMIN/CREATININE RATIO, RANDOM URINE [...] Performed By: #### 7 18, 622, 496, 95464, 51838, 92314, 6399, 7600, 905, 6517 #### [facility] [place] [address] Shift Superintendent Caustic Cresylate: César Dunn MD Creatinine (U) [Mass/Vol] 74 mg/dL Normal 20-275 [facility] Comment on above: Performed By: #### 7 18, 622, 496, 99133, 59551, 37140, 6399, 7600, 905, 6517 #### [facility] [place] [address] Shift Superintendent Caustic Cresylate: César Dunn MD CBC (INCLUDES DIFF/PLT)on Basophils (Bld) [#/Vol] 0.044 10*3/uL Normal 0-200 [facility] Comment on above: Performed By: #### 7 18, 622, 496, 01451, 16447, 66057, 6399, 7600, 905, 6517 #### [facility] [place] [address] Shift Superintendent Caustic Cresylate: César Dunn MD Basophils/100 WBC (Bld) 0.5 % Normal [facility] Comment on above: Performed By: #### 7 18, 622, 496, 59831, 11991, 62072, 6399, 7600, 905, 6517 #### [facility] [place] [address] Shift Superintendent Caustic Cresylate: César Dunn MD Eosinophils (Bld) [#/Vol] 0.29 10*3/uL Normal 15-500 [facility] Comment on above: Performed By: #### 7 18, 622, 496, 93328, 18866, 92418, 6399, 7600, 905, 6517 #### [facility] of [place] [address] Shift Superintendent Caustic Cresylate: César Dunn MD Eosinophils/100 WBC (Bld) 3.3 % Normal [facility] Comment on above: Performed By: #### 7 18, 622, 496, 54976, 17955, 84415, 6399, 7600, 905, 6517 #### [facility] [place] [address] Shift Superintendent Caustic Cresylate: César Dunn MD Erythrocyte distribution width (RBC) [Ratio] 12.6 % Normal 11.0-15.0 [facility] Comment on above: Performed By: #### 7 18, 622, 496, 79181, 15004, 16517, 6399, 7600, 905, 6517 #### [facility] [place] [address] Shift Superintendent Caustic Cresylate: César Dunn MD Hematocrit (Bld) [Volume fraction] 36.3 % Normal 35.0-45.0 [facility] Comment on above: Performed By: #### 7 18, 622, 496, 17209, 90738, 56161, 6399, 7600, 905, 6517 #### [facility] [place] [address] Shift Superintendent Caustic Cresylate: César Dunn MD Hemoglobin (Bld) [Mass/Vol] 12.4 g/dL Normal 11.7-15.5 [facility] Comment on above: Performed By: #### 7 18, 622, 496, 58740, 02846, 01836, 6399, 7600, 905, 6517 #### [facility] [place] [address] Shift Superintendent Caustic Cresylate: César Dunn MD Lymphocytes (Bld) [#/Vol] 3.08 10*3/uL Normal 850-3900 [facility] Comment on above: Performed By: #### 7 18, 622, 496, 90246, 81998, 19764, 6399, 7600, 905, 6517 #### [facility] [place] [address] Shift Superintendent Caustic Cresylate: César Dunn MD Lymphocytes/100 WBC (Bld) 35.0 % Normal [facility] Comment on above: Performed By: #### 7 18, 622, 496, 95901, 32497, 87123, 6399, 7600, 905, 6517 #### [facility] [place] [address] Shift Superintendent Caustic Cresylate: César Dunn MD MCH (RBC) [Entitic mass] 30.7 pg Normal 27.0-33.0 [facility] Comment on above: Performed By: #### 7 18, 622, 496, 20902, 14664, 59092, 6399, 7600, 905, 6517 #### [facility] [place] [address] Shift Superintendent Caustic Cresylate: César Dunn MD MCHC (RBC) [Mass/Vol] 34.2 g/dL Normal 32.0-36.0 [facility] Comment on above: Performed By: #### 7 18, 622, 496, 54134, 57357, 17730, 6399, 7600, 905, 6517 #### [facility] [place] [address] Shift Superintendent Caustic Cresylate: César Dunn MD MCV (RBC) [Entitic vol] 89.9 fL Normal 80.0-100.0 [facility] Comment on above: Performed By: #### 7 18, 622, 496, 26056, 79210, 64201, 6399, 7600, 905, 6517 #### [facility] [place] [address] Shift Superintendent Caustic Cresylate: César Dunn MD Monocytes (Bld) [#/Vol] 0.37 10*3/uL Normal 200-950 [facility] Comment on above: Performed By: #### 7 18, 622, 496, 63487, 78330, 70690, 6399, 7600, 905, 6517 #### [facility] [place] [address] Shift Superintendent Caustic Cresylate: César Dunn MD Monocytes/100 WBC (Bld) 4.2 % Normal [facility] Comment on above: Performed By: #### 7 18, 622, 496, 42742, 03328, 18584, 6399, 7600, 905, 6517 #### [facility] [place] [address] Shift Superintendent Caustic Cresylate: César Dunn MD Neutrophils (Bld) [#/Vol] 5.016 10*3/uL Normal 1826-0239 [facility] Comment on above: Performed By: #### 7 18, 622, 496, 24220, 01598, 32704, 6399, 7600, 905, 6517 #### [facility] [place] [address] Shift Superintendent Caustic Cresylate: César Dunn MD Neutrophils/100 WBC (Bld) 57 % Normal [facility] Comment on above: Performed By: #### 7 18, 622, 496, 78531, 59512, 15888, 6399, 7600, 905, 6517 #### [facility] [place] [address] Shift Superintendent Caustic Cresylate: César Dunn MD Platelet mean volume (Bld) [Entitic vol] 10.6 fL Normal 7.5-12.5 [facility] Comment on above: Performed By: #### 7 18, 622, 496, 04478, 97969, 34585, 6399, 7600, 905, 6517 #### [facility] [place] [address] Shift Superintendent Caustic Cresylate: César Dunn MD Platelets (Bld) [#/Vol] 278 10*3/uL Normal 140-400 [facility] Comment on above: Performed By: #### 7 18, 622, 496, 64192, 58972, 11367, 6399, 7600, 905, 6517 #### [facility] of [place] [address] Shift Superintendent Caustic Cresylate: César Dunn MD RBC (Bld) [#/Vol] 4.04 10*6/uL Normal 3.80-5.10 [facility] Comment on above: Performed By: #### 7 18, 622, 496, 53382, 50813, 84403, 6399, 7600, 905, 6517 #### [facility] [place] [address] Shift Superintendent Caustic Cresylate: César Dunn MD WBC (Bld) [#/Vol] 8.8 10*3/uL Normal 3.8-10.8 [facility] Comment on above: Performed By: #### 7 18, 622, 496, 87746, 47041, 00203, 6399, 7600, 905, 6517 #### [facility] [place] [address] Shift Superintendent Caustic Cresylate: César Dunn MD [facility] [place] [facility]2021 Albumin [Mass/Vol] 4.3 g/dL Normal 3.6-5.1 [facility] Comment on above: Performed By: #### 7 18, 622, 496, 31249, 44093, 26367, 6399, 7600, 905, 6517 #### [facility] [place] [address] Shift Superintendent Caustic Cresylate: César uDnn MD Albumin/Globulin [Mass ratio] 1.4 {ratio} Normal 1.0-2.5 [facility] Comment on above: Performed By: #### 7 18, 622, 496, 31187, 40014, 95509, 6399, 7600, 905, 6517 #### [facility] of [address], [address] [place] [address] Shift Superintendent Caustic Cresylate: César Dunn MD ALP [Catalytic activity/Vol] 66 U/L Normal 37-153 [facility] Comment on above: Performed By: #### 7 18, 622, 496, 18238, 40903, 23760, 6399, 7600, 905, 6517 #### [facility] [place] [address] Shift Superintendent Caustic Cresylate: César Dunn MD ALT [Catalytic activity/Vol] 8 U/L Normal 6-29 [facility] Comment on above: Performed By: #### 7 18, 622, 496, 65260, 18498, 16881, 6399, 7600, 905, 6517 #### [facility] [place] [address] Shift Superintendent Caustic Cresylate: César Dunn MD AST [Catalytic activity/Vol] 16 U/L Normal 10-35 [facility] Comment on above: Performed By: #### 7 18, 622, 496, 56313, 20017, 44380, 6399, 7600, 905, 6517 #### [facility] [place] [address] Shift Superintendent Caustic Cresylate: César Dunn MD Bilirubin [Mass/Vol] 0.6 mg/dL Normal 0.2-1.2 [facility] Comment on above: Performed By: #### 7 18, 622, 496, 29748, 34011, 46379, 6399, 7600, 905, 6517 #### [facility] [place] [address] Shift Superintendent Caustic Cresylate: César Dunn MD Calcium [Mass/Vol] 9.6 mg/dL Normal 8.6-10.4 [facility] Comment on above: Performed By: #### 7 18, 622, 496, 65400, 31173, 09205, 6399, 7600, 905, 6517 #### [facility] [place] [address] Shift Superintendent Caustic Cresylate: César Dunn MD Chloride [Moles/Vol] 108 mmol/L Normal 98-110 [facility] Comment on above: Performed By: #### 7 18, 622, 496, 11976, 91372, 98619, 6399, 7600, 905, 6517 #### [facility] [address], [address] [place] [address] Shift Superintendent Caustic Cresylate: César Dunn MD CO2 [Moles/Vol] 25 mmol/L Normal 20-32 [facility] Comment on above: Performed By: #### 7 18, 622, 496, 00944, 13324, 26034, 6399, 7600, 905, 6517 #### [facility] [place] [address] Shift Superintendent Caustic Cresylate: César Dunn MD Creatinine [Mass/Vol] 1.37 mg/dL High 0.60-0.95 [facility] Comment on above: Performed By: #### 7 18, 622, 496, 78429, 76165, 80874, 6399, 7600, 905, 6517 #### [facility] [place] [address] Shift Superintendent Caustic Cresylate: César Dunn MD GFR/1.73 sq M.predicted among non-blacks MDRD (S/P/Bld) [Vol rate/Area] 39 mL/min/{1.73_m2} Low > OR = 60 [facility] Comment on above: Result Comment: The eGFR is based on the CKD-EPI 202 equation. To calculate the new eGFR from a previous Creatinine or Cystatin C result, go to https://www.kidney.org/professionals/ kdoqi/gfr%5Fcalculator Performed By: #### 7 18, 622, 496, 91276, 18553, 42679, 6399, 7600, 905, 6517 #### [facility] [address], [address] [place] [address] Shift Superintendent Caustic Cresylate: César Dunn MD Globulin (S) [Mass/Vol] 3.1 g/dL Normal 1.9-3.7 [facility] Comment on above: Performed By: #### 7 18, 622, 496, 51888, 17393, 91868, 6399, 7600, 905, 6517 #### [facility] [place] [address] Shift Superintendent Caustic Cresylate: César Dunn MD Glucose [Mass/Vol] 121 mg/dL High 65-99 [facility] Comment on above: Result Comment: Fasting reference interval For someone without known diabetes, a glucose value between 100 and 125 mg/dL is consistent with prediabetes and should be confirmed with a follow-up test. Performed By: #### 7 18, 622, 496, 54062, 01828, 28098, 6399, 7600, 905, 6517 #### [facility] [place] [address] Shift Superintendent Caust[employer] Cresylate: César Dunn MD Potassium [Moles/Vol] 4.6 mmol/L Normal 3.5-5.3 [facility] Comment on above: Performed By: #### 7 18, 622, 496, 47622, 12102, 61217, 6399, 7600, 905, 6517 #### [facility] [place] [address] Shift Superintendent Caustic Cresylate: César Dunn MD Protein [Mass/Vol] 7.4 g/dL Normal 6.1-8.1 [facility] Comment on above: Performed By: #### 7 18, 622, 496, 86802, 86382, 79245, 6399, 7600, 905, 6517 #### [facility] [place] [address] Shift Superintendent Caustic Cresylate: César Dunn MD Sodium [Moles/Vol] 139 mmol/L Normal 135-146 [facility] Comment on above: Performed By: #### 7 18, 622, 496, 88855, 42304, 54095, 6399, 7600, 905, 6517 #### [facility] [place] [address] Shift Superintendent Caustic Cresylate: César Dunn MD Urea nitrogen [Mass/Vol] 22 mg/dL Normal 7-25 [facility] Comment on above: Performed By: #### 7 18, 622, 496, 99833, 81723, 07721, 6399, 7600, 905, 6517 #### [facility] [address], [address] [place] [address] Shift Superintendent Caust[employer] Cresylate: César Dunn MD Urea nitrogen/Creatinin e [Mass ratio] 16 mg/mg Normal 6-22 [facility] Comment on above: Performed By: #### 7 18, 622, 496, 05843, 01742, 13775, 6399, 7600, 905, 6517 #### [facility] [address], [address] [place] [address] Shift Superintendent Caustic Cresylate: César Dunn MD HEMOGLOBIN A1con 12-09-2021 HEMOGLOBIN [...] Performed By: #### 7 18, 622, 496, 23259, 35964, 88688, 6399, 7600, 905, 6517 #### [facility] [address], [address] [place] [address] Shift Superintendent Caustic Cresylate: César Dunn MD LIPID PANEL, STANDARDon 11-15 Cholesterol [Mass/Vol] 260 mg/dL High <200 [facility] Comment on above: Order Comment: FASTI NG:YES FASTING: YES Performed By: #### 7 18, 622, 496, 16966, 11284, 03466, 6399, 7600, 905, 6517 #### [facility] [address], [address] [place] [address] Shift Superintendent Caustic Cresylate: César Dunn MD Cholesterol in HDL [Mass/Vol] 38 mg/dL Low > OR = 50 [facility] Comment on above: Order Comment: FASTI NG:YES FASTING: YES Performed By: #### 7 18, 622, 496, 34380, 52669, 90956, 6399, 7600, 905, 6517 #### [facility] [address], [address] [place] [address] Shift Superintendent [employer] Cresylate: César Dunn MD Cholesterol in LDL [Mass/Vol] [...] LDL-C. Tim HUMPHRIES et al. GENA. 2013;310(19): 1427-8635 (http://education.[employer]/faq/FWR563) Performed By: #### 7 18, 622, 496, 69669, 82874, 27014, 6399, 7600, 905, 6517 #### [facility] [address], [address] [place] [address] Shift Superintendent Ca[employer]ic Cresylate: César Dunn MD Cholesterol.total/ Cholesterol in HDL [Mass ratio] 6.8 {ratio} High <5.0 [facility] Comment on above: Order Comment: FASTI NG:YES FASTING: YES Performed By: #### 7 18, 622, 496, 32786, 56599, 28800, 6399, 7600, 905, 6517 #### [facility] [address], [address] [place] [address] Shift Superintendent Caustic Cresylate: César Dunn MD NON HDL CHOLESTEROL 222 [...] Performed By: #### 7 18, 622, 496, 25780, 98059, 32070, 6399, 7600, 905, 6517 #### [facility] [address], [address] [place] [address] Shift Superintendent Caustic Cresylate: César Dunn MD Triglyceride [Mass/Vol] 162 mg/dL High <150 [facility] Comment on above: Order Comment: FASTI NG:YES FASTING: YES Performed By: #### 7 18, 622, 496, 65425, 87377, 40073, 6399, 7600, 905, 6517 #### [facility] [address], [address] [place] [address] Shift Superintendent Caustic Cresylate: César Dunn MD MAGNESIUMon 12-09-2021 Magnesium [Mass/Vol] 2.1 mg/dL Normal 1.5-2.5 [facility] Comment on above: Performed By: #### 7 18, 622, 496, 02031, 96107, 31869, 6399, 7600, 905, 6517 #### [facility] [place] [address] Shift Superintendent Caustic Cresylate: César Dunn MD PHOSPHATE ( PHOSPHORUS)on 12-09-2021 Phosphate [Mass/Vol] 3.6 mg/dL Normal 2.1-4.3 [facility] Comment on above: Performed By: #### 7 18, 622, 496, 66793, 96665, 45303, 6399, 7600, 905, 6517 #### [facility] [address], [address] [place] [address] Shift Superintendent Caustic Cresylate: César Dunn MD PTH, INTACT WITHOUT CALCIUMo n 12-09-2021 PARATHYROID HORMONE, INTACT 64 pg/mL Normal 16-77 [facility] Comment on above: Result Comment: Interpretive Guide Intact PTH Calcium ------- Normal Parathyroid Normal Normal Hypoparathyroidism Low or Low Normal Low Hyperparathyroidism Primary Normal or High High Secondary High Normal or Low Tertiary High High Non-Parathyroid Hypercalcemia Low or Low Normal High Performed By: #### 7 18, 622, 496, 36472, 30255, 31549, 6399, 7600, 905, 6517 #### [facility] [address], [address] [place], [place] [address] Shift Superintendent Caustic Cresylate: César Dunn MD URIC ACIDon 12-09-2021 Urate [Mass/Vol] 5.1 mg/dL Normal 2.5-7.0 [facility] Comment on above: Result Comment: Ther apeutic target for gout patients: <6.0 mg/dL Performed By: #### 7 18, 622, 496, 70615, 19544, 16937, 6399, 7600, 905, 6517 #### [facility] [address], [address] [place], [place] [address] Shift Superintendent Caustic Cresylate: César Dunn MD VITAMIN D,25-OH,TOTAL,IAon 0 12-09-2021 VITAMIN D,25-OH,TOTAL,IA 37 ng/mL Normal 30-100 [facility] Comment on above: Result Comment: Isaura min D Status 25-OH Vitamin D: Deficiency: <20 ng/mL Insufficiency: 20 - 29 ng/mL Optimal: > or = 30 ng/mL For 25-OH Vitamin D testing on patients on D2-supplementation and patients for whom quantitation of D2 and D3 fractions is required, the QuestAssureD(TM) 25-OH VIT D, (D2,D3), LC/MS/MS is recommended: order code 62680 (patients >2yrs). See Note 1 Note 1 For additional information, please refer to http://education.[employer].[facility]/faq/CGX536 (This link is being provided for informational/ educational purposes only.) Performed By: #### 7 18, 622, 496, 19282, 35310, 55919, 6399, 7600, 905, 6517 #### [facility] [address] [facility], [address] [place] [address] Shift Superintendent Caust[employer] Cresylate: César Dunn MD CNCOon 11-07-2021 CNCO Letter Text Normal [facility] CBC W Auto Differential pane l (Bld)on 07-28-2021 Basophils (Bld) [#/Vol] 0.03 10*3/uL Normal <0.11 [facility] Comment on above: Order Comment: Speci men Type: BLOOD SPECIMENOrdering Facility: [facility] Address: [address] [place] [address] Performed By: #### 5 7021-8 ####[facility] LABCLIA [id number] [place] [address] Basophils/100 WBC (Bld) 0.4 % Normal [facility] Comment on above: Order Comment: Speci men Type: BLOOD SPECIMENOrdering Facility: [facility] Address: [address] [place] [address] Performed By: #### 5 7021-8 ####[facility] LABCLIA [id number] [place] [address] Differential cell count method Nom (Bld) Auto Normal [facility] Comment on above: Order Comment: Speci men Type: BLOOD SPECIMENOrdering Facility: [facility] Address: [address] [place] [address] Performed By: #### 5 7021-8 ####[facility] LABCLIA [id number] [place] [address] Eosinophils (Bld) [#/Vol] 0.29 10*3/uL Normal <0.46 [facility] Comment on above: Order Comment: Speci men Type: BLOOD SPECIMENOrdering Facility: [facility] Address: [address] [place] [address] Performed By: #### 5 7021-8 ####[facility] LABCLIA [id number] [place] [address] Eosinophils/100 WBC (Bld) 3.7 % Normal [facility] Comment on above: Order Comment: Speci men Type: BLOOD SPECIMENOrdering Facility: [facility] Address: [address] [place] [address] Performed By: #### 5 7021-8 ####[facility] LABCLIA [id number] [place] [address] Erythrocyte distribution width (RBC) [Ratio] 13.2 % Normal 11.5-15.0 [facility] Comment on above: Order Comment: Speci men Type: BLOOD SPECIMENOrdering Facility: [facility] Address: [address] [place] [address] Performed By: #### 5 7021-8 ####[facility] LABCLIA [id number] [place] [address] Hematocrit (Bld) [Volume fraction] 37.6 % Normal 36.0-46.0 [facility] Comment on above: Order Comment: Speci men Type: BLOOD SPECIMENOrdering Facility: [facility] Address: [address] [place] [address] Performed By: #### 5 7021-8 ####[facility] LABCLIA [id number] [place] [address] Hemoglobin (Bld) [Mass/Vol] 12.1 g/dL Normal 11.5-15.5 [facility] Comment on above: Order Comment: Speci men Type: BLOOD SPECIMENOrdering Facility: [facility] Address: [address] [place] [address] Performed By: #### 5 7021-8 ####[facility] LABCLIA [id number] [place] [address] IMMATURE GRAN % 0.3 % Normal [facility] Comment on above: Order Comment: Speci men Type: BLOOD SPECIMENOrdering Facility: [facility] Address: [address] [place] [address] Performed By: #### 5 7021-8 ####[facility] LABCLIA [id number] [place] [address] IMMATURE GRAN ABS <0.03 Normal <0.10 [facility] Comment on above: Order Comment: Speci men Type: BLOOD SPECIMENOrdering Facility: [facility] Address: [address] [place] [address] Performed By: #### 5 7021-8 ####[facility] LABCLIA [id number] [place] [address] Lymphocytes (Bld) [#/Vol] 3.28 10*3/uL Normal 1.00-4.00 [facility] Comment on above: Order Comment: Speci men Type: BLOOD SPECIMENOrdering Facility: [facility] Address: [address] [place] [address] Performed By: #### 5 7021-8 ####[facility] LABIA [id number] [place] [address] Lymphocytes/100 WBC (Bld) 41.8 % Normal [facility] Comment on above: Order Comment: Speci men Type: BLOOD SPECIMENOrdering Facility: [facility] Address: [address] [place] [address] Performed By: #### 5 7021-8 ####[facility] LABCLIA [id number] [place] [address] MCH (RBC) [Entitic mass] 30.0 pg Normal 26.0-34.0 [facility] Comment on above: Order Comment: Speci men Type: BLOOD SPECIMENOrdering Facility: [facility] Address: [address] [place] [address] Performed By: #### 5 7021-8 ####[facility] LABCLIA [id number] [place] [address] MCHC (RBC) [Mass/Vol] 32.2 g/dL Normal 30.5-36.0 [facility] Comment on above: Order Comment: Speci men Type: BLOOD SPECIMENOrdering Facility: [facility] Address: [address] [place] [address] Performed By: #### 5 7021-8 ####[facility] LABIA [id number] [place] [address] MCV (RBC) [Entitic vol] 93.3 fL Normal 80.0-100.0 [facility] Comment on above: Order Comment: Speci men Type: BLOOD SPECIMENOrdering Facility: [facility] Address: [address] [place] [address] Performed By: #### 5 7021-8 ####[facility] LABIA [id number] [place] [address] Monocytes (Bld) [#/Vol] 0.46 10*3/uL Normal <0.87 [facility] Comment on above: Order Comment: Speci men Type: BLOOD SPECIMENOrdering Facility: [facility] Address: [address] [place] [address] Performed By: #### 5 7021-8 ####[facility] LABIA [id number] [place] [address] Monocytes/100 WBC (Bld) 5.9 % Normal [facility] Comment on above: Order Comment: Speci men Type: BLOOD SPECIMENOrdering Facility: [facility] Address: [address] [place] [address] Performed By: #### 5 7021-8 ####[facility] LABIA [id number] [place] [address] Neutrophils (Bld) [#/Vol] 3.77 10*3/uL Normal 1.45-7.50 [facility] Comment on above: Order Comment: Speci men Type: BLOOD SPECIMENOrdering Facility: [facility] Address: [address] [place] [address] Performed By: #### 5 7021-8 ####[facility] LABCLIA [id number] [place] [address] Neutrophils/100 WBC (Bld) 47.9 % Normal [facility] Comment on above: Order Comment: Speci men Type: BLOOD SPECIMENOrdering Facility: [facility] Address: [address] [place] [address] Performed By: #### 5 7021-8 ####[facility] LABCLIA [id number] [place] [address] Nucleated RBC (Bld) [#/Vol] 10*3/uL Normal <0.01 [facility] Comment on above: Order Comment: Speci men Type: BLOOD SPECIMENOrdering Facility: [facility] Address: [address] [place] [address] Performed By: #### 5 7021-8 ####[facility] LABCLIA [id number] [place] [address] Nucleated RBC/100 WBC (Bld) [Ratio] 0.0 /100 WBC Normal [facility] Comment on above: Order Comment: Speci men Type: BLOOD SPECIMENOrdering Facility: [facility] Address: [address] [place] [address] Performed By: #### 5 7021-8 ####[facility] LABCLIA [id number] [place] [address] Platelet mean volume (Bld) [Entitic vol] 10.6 fL Normal 9.0-12.7 [facility] Comment on above: Order Comment: Speci men Type: BLOOD SPECIMENOrdering Facility: [facility] Address: [address] [place] [address] Performed By: #### 5 7021-8 ####[facility] LABCLIA [id number] [place] [address] Platelets (Bld) [#/Vol] 259 10*3/uL Normal 150-400 [facility] Comment on above: Order Comment: Speci men Type: BLOOD SPECIMENOrdering Facility: [facility] Address: [address] [place] [address] Performed By: #### 5 7021-8 ####[facility] LABCLIA [id number] [place] [address] RBC (Bld) [#/Vol] 4.03 10*6/uL Normal 3.90-5.20 [facility] Comment on above: Order Comment: Speci men Type: BLOOD SPECIMENOrdering Facility: [facility] Address: [address] [place] [address] Performed By: #### 5 7021-8 ####[facility] LABCLIA [id number] [place] [id number] WBC (Bld) [#/Vol] 7.85 10*3/uL Normal 3.70-11.00 [facility] Comment on above: Order Comment: Speci men Type: BLOOD SPECIMENOrdering Facility: [facility] Address: [address] [place] [address] Performed By: #### 5 7021-8 ####[facility] LABCLIA [id number] [place] [address] Abs Immature Gran <0.03 <0.10 k/uL [facility] Basophils (Bld) [#/Vol] 0.03 10*3/uL <0.11 k/uL [facility] Basophils/100 WBC (Bld) 0.4 % [facility] Differential cell count method Nom (Bld) Auto [facility] Eosinophils (Bld) [#/Vol] 0.29 10*3/uL <0.46 k/uL [facility] Eosinophils/100 WBC (Bld) 3.7 % [facility] Erythrocyte distribution width (RBC) [Ratio] 13.2 % 11.5 - 15.0 % [facility] Hematocrit (Bld) [Volume fraction] 37.6 % 36.0 - 46.0 % [facility] Hemoglobin (Bld) [Mass/Vol] 12.1 g/dL 11.5 - 15.5 g/dL [facility] Immature Gran % 0.3 % [facility] Lymphocytes (Bld) [#/Vol] 3.28 10*3/uL 1.00 - 4.00 k/uL [facility] Lymphocytes/100 WBC (Bld) 41.8 % [facility] MCH (RBC) [Entitic mass] 30.0 pg 26.0 - 34.0 pg [facility] MCHC (RBC) [Mass/Vol] 32.2 g/dL 30.5 - 36.0 g/dL [facility] MCV (RBC) [Entitic vol] 93.3 fL 80.0 - 100.0 fL [facility] Monocytes (Bld) [#/Vol] 0.46 10*3/uL <0.87 k/uL [facility] Monocytes/100 WBC (Bld) 5.9 % [facility] Neutrophils (Bld) [#/Vol] 3.77 10*3/uL 1.45 - 7.50 k/uL [facility] Neutrophils/100 WBC (Bld) 47.9 % [facility] Nucleated RBC (Bld) [#/Vol] 10*3/uL <0.01 k/uL [facility] Nucleated RBC/100 WBC (Bld) [Ratio] 0.0 /100 WBC [facility] Platelet mean volume (Bld) [Entitic vol] 10.6 fL 9.0 - 12.7 fL [facility] Platelets (Bld) [#/Vol] 259 10*3/uL 150 - 400 k/uL [facility] RBC (Bld) [#/Vol] 4.03 10*6/uL 3.90 - 5.2 0 m/uL [facility] WBC (Bld) [#/Vol] 7.85 10*3/uL 3.70 - 11. 00 k/uL [facility] CNOVSPon 07-28-2021 CNOVSP Visit (SP) Office (HEMASA) -------- JOHANNY FORBES ([id number]) 1940 F Date Time Provider Department 07/28/21 [...] metastatic breast carcinoma, 5 cm, ER 0, AL 0, HER-2 0 by IHC. The tissue was not evaluated for flow cytometry to rule out a lymphoproliferative process. 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 Differential included mammary, skin, urothelial, pancreaticobiliary and pulmonary primaries. ER 0, AL 0, HER-2 negative by CAMERON. ? 2021 [...] Fo (more content not included)... Normal [facility] Comprehensive metabolic 2000 panelon 07-28-2021 Albumin [Mass/Vol] 4.2 g/dL Normal 3.9-4.9 [facility] Comment on above: Order Comment: Speci men Type: BLOOD SPECIMENOrdering Facility: [facility] Address: [address] [place] [address] Performed By: #### 2 4323-8 ####[facility] LABCLIA [id number] [place] [address] ALP [Catalytic activity/Vol] 72 U/L Normal 34-123 [facility] Comment on above: Order Comment: Speci men Type: BLOOD SPECIMENOrdering Facility: [facility] Address: [address] [place] [address] Performed By: #### 2 4323-8 ####[facility] LABCLIA [id number] [place] [address] ALT [Catalytic activity/Vol] 7 U/L Normal 7-38 [facility] Comment on above: Order Comment: Speci men Type: BLOOD SPECIMENOrdering Facility: [facility] Address: [address] [place] [address] Performed By: #### 2 4323-8 ####[facility] LABCLIA [id number] [place] [address] Anion gap [Moles/Vol] 7 mmol/L Low 9-18 [facility] Comment on above: Order Comment: Speci men Type: BLOOD SPECIMENOrdering Facility: [facility] Address: [address] [place] [address] Performed By: #### 2 4323-8 ####[facility] LABCLIA [id number] [place] [address] AST [Catalytic activity/Vol] 17 U/L Normal 13-35 [facility] Comment on above: Order Comment: Speci men Type: BLOOD SPECIMENOrdering Facility: [facility] Address: [address] [place] [address] Performed By: #### 2 4323-8 ####[facility] LABCLIA [id number] [place] [address] Bilirubin [Mass/Vol] 0.4 mg/dL Normal 0.2-1.3 [facility] Comment on above: Order Comment: Speci men Type: BLOOD SPECIMENOrdering Facility: [facility] Address: [address] [place] [address] Performed By: #### 2 4323-8 ####[facility] LABCLIA [id number] [place] [address] Calcium [Mass/Vol] 9.8 mg/dL Normal 8.5-10.2 [facility] Comment on above: Order Comment: Speci men Type: BLOOD SPECIMENOrdering Facility: [facility] Address: [address] [place] [address] Performed By: #### 2 4323-8 ####[facility] LABCLIA [id number] [place] [address] Chloride [Moles/Vol] 105 mmol/L Normal 97-105 [facility] Comment on above: Order Comment: Speci men Type: BLOOD SPECIMENOrdering Facility: [facility] Address: [address] [place], [place] [id number] Performed By: #### 2 4323-8 ####[facility] LABCLIA [id number] [place] [address] CO2 [Moles/Vol] 26 mmol/L Normal 22-30 [facility] Comment on above: Order Comment: Speci men Type: BLOOD SPECIMENOrdering Facility: [facility] Address: [address] [place] [address] Performed By: #### 2 4323-8 ####[facility] LABCLIA [id number] [place] [address] Creatinine [Mass/Vol] 1.31 mg/dL High 0.58-0.96 [facility] Comment on above: Order Comment: Joseline beebe Type: BLOOD SPECIMENOrdering Facility: [facility] Address: [address] [place] [address] Performed By: #### 2 4323-8 ####[facility] LABCLIA [id number] [place] [address] ESTIMATED GLOMERULAR FILTRATION RATE 41 mL/min/1.73m??? Low >=60 [facility] Comment on above: Order Comment: Joseline beebe Type: BLOOD SPECIMENOrdering Facility: [facility] Address: [address] [place] [address] Result Comment: Nereyda mated Glomerular Filtration Rate [...] actual GFR. Performed By: #### 2 4323-8 ####[facility] LABCLIA [id number] [place] [address] Glucose [Mass/Vol] 129 mg/dL High 74-99 [facility] Comment on above: Order Comment: Joseline beebe Type: BLOOD SPECIMENOrdering Facility: [facility] Address: [address] [place] [address] Result Comment: The [place] [employer] (ADA) provides guidance for cutoff [...] Standards of Medical Care in Diabetes 2016, [place] [employer]. Diabetes Care. 2016.39(Suppl 1). Performed By: #### 2 4323-8 ####[facility] LABCLIA [id number] [place] [address] Potassium [Moles/Vol] 4.6 mmol/L Normal 3.7-5.1 [facility] Comment on above: Order Comment: Speci men Type: BLOOD SPECIMENOrdering Facility: [facility] Address: [address] [place] [address] Performed By: #### 2 4323-8 ####[facility] LABCLIA [id number] [place] [address] Protein [Mass/Vol] 7.5 g/dL Normal 6.3-8.0 [facility] Comment on above: Order Comment: Speci men Type: BLOOD SPECIMENOrdering Facility: [facility] Address: [address] [place] [address] Performed By: #### 2 4323-8 ####[facility] LABCLIA [id number] [place] [address] Sodium [Moles/Vol] 138 mmol/L Normal 136-144 [facility] Comment on above: Order Comment: Speci men Type: BLOOD SPECIMENOrdering Facility: [facility] Address: [address] [place] [address] Performed By: #### 2 4323-8 ####[facility] LABCLIA [id number] [place] [address] Urea nitrogen [Mass/Vol] 22 mg/dL High 7-21 [facility] Comment on above: Order Comment: Speci men Type: BLOOD SPECIMENOrdering Facility: [facility] Address: [address] [place] [address] Performed By: #### 2 4323-8 ####[facility] LABCLIA [id number] [place] [id number] FLOW CYTOMETRY REFLEXon - CASE REPORT Normal [facility] Comment on above: Order Comment: Speci men Type: BLOOD SPECIMENOrdering Facility: [facility] Address: [address] [place] [address] Result Comment: Flow Cytometry Case: [id number] Authorizing Provider: Drake Anand MD Collected: 07/28/2021 02:03 PM Ordering Location: Laboratory Medicine Received: 07/29/2021 12:43 PM Pathologist: Tang Oqeundo MD Specimen: BLOOD Performed By: #### F LOWREFLEX ####[facility] LABCLIA [id number] [address] GROSS DESCRIPTION A. BLOOD. Normal [facility] Comment on above: Order Comment: Speci men Type: BLOOD SPECIMENOrdering Facility: [facility] Address: [address] [place] [address] Result Comment: Rece ived 4ml of peripheral blood in EDTA. Performed By: #### F LOWREFLEX ####[facility] LABCLIA [id number] [address] [place] [facility] INTERPRETATION Normal [facility] Comment on above: Order Comment: Speci men Type: BLOOD SPECIMENOrdering Facility: [facility] Address: [address] [place] [address] Result Comment: Spec imen type: BLOOD CBC [...] Negative CD200 B-cells Positive FMC7 B-cells Positive [place]/Lambda B-cells Monotypic kappa Flow cytometric analysis of [...] developed and its performance characteristics determined by [facility]???s Vignesh Ballard [facility] Pathology and Laboratory Medicine [place] ([facility]). It has not been cleared or approved by the FDA. [facility] is regulated under CLIA as qualified to perform high-complexity testing. This test is used for clinical purposes. It should not be regarded as investigational or for research. CALI/JUAN MIGUEL 07/29/21 Diagnostic interpretation performed at [facility], [address] [place] [address] CLIA# [id number] Jar Capper: Bharath Light M.D. Performed By: #### F LOWREFLEX ####[facility] LABCLIA [id number] [address] PERIPHERAL BLOOD LOW GRADE L EUK MARKERS FCon 07-28-2021 FLOW CYTOMETRY ORDER STATUS See Results in chart under F case ID Normal [facility] Comment on above: Order Comment: Speci men Type: BLOOD SPECIMENOrdering Facility: [facility] Address: [address] [place] [address] Performed By: #### P BLGLY ####[facility] LABCLIA [id number] [address] CNPNon 07-22-2021 CNPN Telephone (HEMASA) -------- JOHANNY FORBES ([id number]) 1940 F Date Time Provider Department 07/22/21 [...] discuss further. She can be reached at [phone]. ROSA ELENA Esteban MD 07/22/2021 2:38 PM [...] Fully Assessed Reason for Visit: Patient Question [5769] Prescriptions as of 07/22/2021 - aspirin 81 [...] Encounter Status:Closed by RU BLACKMAN [facility] CNPN Telephone (SERAFIN) -------- JOHANNY FORBES ([id number]) 1940 F Date Time Provider Department 07/01/21 RU BLACKMAN During your visit today, we recorded the following information about you: Ru Blackman RN 07/01/2021 2:07 PM Signed Received call from pt wanting to know if Dr Anand got her results for the genetic testing on her tumor? BHUPENDRAK: Any message for pt? Or she can be reached at [phone]. ROSA ELENA Esteban MD 07/01/2021 2:49 PM [...] by RU BLACKMAN on 07/04/21 Normal [facility] MG MAMM DIAGNOSTIC 3D COY CA Don 05-03-2021 MG MAMM DIAGNOSTIC 3D COY CAD Patient: JOHANNY FORBES Exam Date: 05/03/2021 : 1940 Gender:F Ordering : DRAKE ANAND Admission #: [id number] Family : DR JORGE LUIS [place] Order #: [id number] CLICK HERE TO VIEW EXAM RADIOLOGY REPORT PROCEDURE: MAMMOGRAM DIAGNOSTIC 3D BILATERAL CAD COMPARISON: MAMMO SCREEN DIG COY, 01/22/2012. INDICATIONS: Secondary malignant neoplasm of axilla Calculator Name NCI Breast Cancer Risk Assessment Tool 5 Year Breast Cancer Risk n/a% Lifetime Breast Cancer Risk n/a% Personal Breast Cancer Yes Personal Ovarian Cancer No Treatments None Family Cancers None LOCATION: [facility] BREAST COMPOSITION: Scattered areas fibroglandular density. FINDINGS: [...] MD on 05/03/2021 at 14:29 Normal [facility] POINT OF CARE GLUCOSEon 12-0 Glucose [Mass/Vol] 169 mg/dL Critically high 74-106 [facility] Comment on above: Performed By: #### P OCGLUC #### [facility] [address] [place] [address] Dr. Dontae Vallejo CBC AUTO DIFFon 03-14-2021 BASO # 0.1 103/ul Normal 0.0-0.1 [facility] Comment on above: Performed By: #### C BC #### [facility] [address] [place] [address] Dr. Dontae Vallejo Basophils/100 WBC (Bld) 0.6 % Normal 0.2-2.0 [facility] Comment on above: Performed By: #### C BC #### [facility] [address] [place] [address] Dr. Dontae Vallejo EO # 0.4 103/ul Normal 0.0-0.7 [facility] Comment on above: Performed By: #### C BC #### [facility] [address] [place] [address] Dr. Dontae Vallejo Eosinophils/100 WBC (Bld) 4.1 % Normal 0.9-7.0 [facility] Comment on above: Performed By: #### C BC #### [facility] [address] [place] [address] Dr. Dontae Vallejo Erythrocyte distribution width (RBC) [Ratio] 13.1 % Normal 11.0-15.0 [facility] Comment on above: Performed By: #### C BC #### [facility] [address] [place] [address] Dr. Dontae Vallejo Hematocrit (Bld) [Volume fraction] 37.1 % Normal 36.0-48.0 [facility] Comment on above: Performed By: #### C BC #### [facility] [address] [place] [address] Dr. Dontae Vallejo Hemoglobin (Bld) [Mass/Vol] 12.1 g/dL Normal 12.0-16.0 [facility] Comment on above: Performed By: #### C BC #### [facility] [address] [place] [address] Dr. Dontae Vallejo IG # 0.03 10e3/ul Normal 0.00-0.03 [facility] Comment on above: Performed By: #### C BC #### [facility] [address] [place] [address] Dr. Dontae Vallejo IG % 0.3 % Normal 0.0-0.5 [facility] Comment on above: Performed By: #### C BC #### [facility] [address] [place] [address] Dr. Dontae Vallejo LYMPH # 4.5 103/ul Critically high 1.2-3.8 [facility] Comment on above: Performed By: #### C BC #### [facility] [address] [place] [address] Dr. Dontae Vallejo Lymphocytes/100 WBC (Bld) 44.8 % Normal 20.5-60.0 [facility] Comment on above: Performed By: #### C BC #### [facility] [address] [place] [address] Dr. Dontae Vallejo MANUAL DIFF REQ NO Normal [facility] Comment on above: Performed By: #### C BC #### [facility] [address] [place] [address] Dr. Dontae Vallejo MCH (RBC) [Entitic mass] 30.3 pg Normal 26.7-34.0 [facility] Comment on above: Performed By: #### C BC #### [facility] [address] [place] [address] Dr. Dontae Vallejo MCHC (RBC) [Mass/Vol] 32.6 g/dL Normal 29.9-35.2 [facility] Comment on above: Performed By: #### C BC #### [facility] [address] [place] [address] Dr. Dontae Vallejo MCV (RBC) [Entitic vol] 92.8 fL Normal 81.0-99.0 [facility] Comment on above: Performed By: #### C BC #### [facility] [address] [place] [address] Dr. Dontae Vallejo MONO # 0.5 103/ul Normal 0.3-0.8 [facility] Comment on above: Performed By: #### C BC #### [facility] [address] [place] [address] Dr. Dontae Vallejo Monocytes/100 WBC (Bld) 5.3 % Normal 1.7-12.0 [facility] Comment on above: Performed By: #### C BC #### [facility] [address] [place] [address] Dr. Dontae Vallejo NEUT # 4.5 103/ul Normal 1.4-6.5 [facility] Comment on above: Performed By: #### C BC #### [facility] [address] [place] [address] Dr. Dontae Vallejo Neutrophils/100 WBC (Bld) 44.9 % Normal 43.0-75.0 [facility] Comment on above: Performed By: #### C BC #### [facility] [address] [place] [address] Dr. Dontae Vallejo Platelet mean volume (Bld) [Entitic vol] 9.8 fL Normal 9.5-13.5 [facility] Comment on above: Performed By: #### C BC #### [facility] [address] [address] [address] Dontae Vallejo PLT 251 103/ul Normal 150-450 [facility] Comment on above: Performed By: #### C BC #### [facility] [address] [address] [address] Dontae Vallejo RBC 4.00 106/ul Critically low 4.20-5.40 [facility] Comment on above: Performed By: #### C BC #### [facility] [id number] Dontae Vallejo WBC 10.1 103/ul Normal 4.0-11.0 [facility] Comment on above: Performed By: #### C BC #### [facility] [address] [place] [address] Dr. Dontae Vallejo [facility] SARS-CoV-2 (COVID-19) RNA DEIDRE+probe Ql (Unsp spec) Not detected Normal NOT DETECTED The [facility] Comment on above: Result Comment: This test is not yet approved or cleared by the [place] FDA. When there are no FDA-approved or cleared tests available, and other criteria are met, FDA can make tests available under an emergency access mechanism called an Emergency Use Authorization (EUA). The EUA for this test is supported by the Commercial Designer of Health and Human Service's (HHS's) declaration [...] SARS-CoV-2. Performed By: #### C VDTBH #### [facility] [address] [place] [address] Dr. Dontae Vallejo PROF CHEM 8 (BAS METB)on Anion gap [Moles/Vol] 10.5 mmol/L Normal [facility] Comment on above: Performed By: #### B MP #### [facility] [address] [address] [address] Dontae Vallejo Calcium [Mass/Vol] 9.5 mg/dL Normal 8.4-10.2 [facility] Comment on above: Performed By: #### B MP #### [facility] [address] [address] [address] Dontae Vallejo Chloride [Moles/Vol] 104 mmol/L Normal 98-107 [facility] Comment on above: Performed By: #### B MP #### [facility] [address] [address] [address] Dontae Vallejo CO2 [Moles/Vol] 26.8 mmol/L Normal 22.0-30.0 [facility] Comment on above: Performed By: #### B MP #### [facility] [address] [place] [address] Dr. Dontae Vallejo Creatinine [Mass/Vol] 1.51 mg/dL Critically high 0.52-1.04 [facility] Comment on above: Performed By: #### B MP #### [facility] [address] [place] [address] Dr. Dontae Vallejo EGFR-AF BULGARIAN 40 mL/min/1.73m2 Critically low >=60 [facility] Comment on above: Performed By: #### B MP #### [facility] [address] [address] [address] Dontae Vallejo EGFR-NON AF BULGARIAN 33 mL/min/1.73m2 Critically low >=60 [facility] Comment on above: Performed By: #### B MP #### [facility] [address] [address] [address] Dontae Vallejo Glucose [Mass/Vol] 145 mg/dL Critically high 74-106 [facility] Comment on above: Performed By: #### B MP #### [facility] [address] [place] [address] Dr. Dontae Vallejo Potassium [Moles/Vol] 4.3 mmol/L Normal 3.4-5.0 [facility] Comment on above: Performed By: #### B MP #### [facility] [address] [place], [place] [address] Dr. Dontae Vallejo Sodium [Moles/Vol] 137 mmol/L Normal 137-145 [facility] Comment on above: Performed By: #### B MP #### [facility] [address] [place], [place] [address] Dr. Dontae Vallejo Urea nitrogen [Mass/Vol] 29.0 mg/dL Critically high 7.0-17.0 [facility] Comment on above: Performed By: #### B MP #### [facility] [address] [place], [place] [address] Dr. Dontae Vallejo Urea nitrogen/Creatinin e [Mass ratio] 19.2 mg/mg Normal [facility] Comment on above: Performed By: #### B MP #### [facility] [address] [place], [place] [address] Dr. Dontae Vallejo US FINE NDL ASP W US GDNCEon 02-07-2021 US FINE NDL ASP W US GDNCE Begin Addendum #1 COLLECTED DATE/TIME: 01/24/2021 14:27 EDT Final Diagnosis Report for [facility], [place] (A/B) LEFT AXILLA MASS; FINE NEEDLE [...] (FNA). 2. Pathology results are pending. Normal [facility] LEUKEMIA/LYMPHOMA PROFILEon 01-31-2021 ANALYSIS AND GATING STRATEGY Comment Normal [facility] Comment on above: Result Comment: 8 co geri analysis with 7-AAD, CD45/SSC gating Performed at: -Y Performed By: #### F LOWL #### [facility] [address] [place] [address] Dr. Dontae Vallejo ASSESSMENT OF LEUKOCYTES Comment [facility] Comment on above: Result Comment: Ghulam a and lambda staining cannot be interpreted due to nonspecific light chain binding. A subset of T cells show CD10 expression. CD4:CD8 ratio 2.3 Analysis of the viable lymphoid cells shows: B cells 18%, T cells 82% Performed at: -Y Performed By: #### F LOWL #### [facility] [address] [place] [address] Dr. Dontae Vallejo COMMENT Comment [facility] Comment on above: Result Comment: Each antibody in this assay was utilized to assess for potential abnormalities of studied cell populations or to characterize identified abnormalities. . This test was developed and its performance characteristics determined by [employer]. It has not been cleared or approved by the [place]. Food and Drug Administration. . The FDA has determined that such clearance or approval is not necessary. This test is used for clinical purposes. It should not be regarded as investigational or for research. Performed at: TG Performed By: #### F LOWL #### [facility] [address] [place] [address] Dr. Dontae Vallejo FLOW COMMENT Comment [facility] Comment on above: Result Comment: Ghulam [...] -Y Performed By: #### F LOWL #### [facility] [address] [address] [address] Dontae Vallejo FLOW INTERPRETATION Comment Normal [facility] Comment on above: Result Comment: B ce ll clonality cannot be evaluated, T cells with CD10 expression in a small subset, low viability specimen, see comment. Performed at: -Y Performed By: #### F LOWL #### [facility] [address] [address] [address] Dontae Vallejo PHENOTYPE CHART Comment Normal [facility] Comment on above: Result Comment: CD2 Normal CD3 Normal CD4 Normal CD5 Normal CD7 Normal CD8 Normal CD10 See Text CD11b Normal CD19 Normal CD20 Normal CD23 Normal CD38 Normal CD45 Normal CD56 Normal CD57 Normal [facility]-7 Normal HLA-DR Normal KAPPA See Text LAMBDA See Text Performed at: -Y Performed By: #### F LOWL #### [facility] [address] [address] [address] Dontae Vallejo RESULTING PATH NAME Comment Normal [facility] Comment on above: Result Comment: Raul Oliveros M.D. Performed at: -Y Performed By: #### F LOWL #### [facility] [address] [address] [address] Dontae Vallejo Specimen type Nom (Spec) Comment Normal [facility] Comment on above: Result Comment: Left axillary mass lymph node Performed at: -Y Performed By: #### F LOWL #### [facility] [id number] Dontae Vallejo VIABILITY Comment [facility] Comment on above: Result Comment: 22% This [...] -Y Performed By: #### F LOW #### [facility] [address] [place] [address] Dr. Dontae Vallejo US EXT NON VASC [...] TENZIN FERGUSON Date: 2021-01-07 16:37 Normal The [facility] CBC AUTO DIFFon 11-02-2020 BASO # 0.1 103/ul Normal 0.0-0.1 The [facility] Comment on above: Performed By: #### C BC #### [facility] [address] [place] [address] Jose Bambi Basophils/100 WBC (Bld) 0.6 % Normal 0.2-2.0 [facility] Comment on above: Performed By: #### C BC #### [facility] [address] [place] [address] Jose Bambi EO # 0.4 103/ul Normal 0.0-0.7 [facility] Comment on above: Performed By: #### C BC #### [facility] [address] [place] [address] Jose Bambi Eosinophils/100 WBC (Bld) 3.7 % Normal 0.9-7.0 [facility] Comment on above: Performed By: #### C BC #### [facility] [address] [place], [place] [id number] Jose Bambi Erythrocyte distribution width (RBC) [Ratio] 13.2 % Normal 11.0-15.0 [facility] Comment on above: Performed By: #### C BC #### [facility] [address] [place], [place] [id number] Jose Bambi Hematocrit (Bld) [Volume fraction] 36.1 % Normal 36.0-48.0 [facility] Comment on above: Performed By: #### C BC #### [facility] [address] [place] [address] Jose Lacy Hemoglobin (Bld) [Mass/Vol] 11.7 g/dL Critically low 12.0-16.0 [facility] Comment on above: Performed By: #### C BC #### [facility] [address] [place] [address] Josevlad Lacy IG # 0.03 10e3/ul Normal 0.00-0.03 [facility] Comment on above: Performed By: #### C BC #### [facility] [address] [place] [address] Jose Lacy IG % 0.3 % Normal 0.0-0.5 [facility] Comment on above: Performed By: #### C BC #### [facility] [address] [place] [address] Jose Lacy LYMPH # 4.4 103/ul Critically high 1.2-3.8 [facility] Comment on above: Performed By: #### C BC #### [facility] [address] [place] [address] Jose Lacy Lymphocytes/100 WBC (Bld) 44.9 % Normal 20.5-60.0 [facility] Comment on above: Performed By: #### C BC #### [facility] [address] [place] [address] Jose Lacy MANUAL DIFF REQ NO Normal [facility] Comment on above: Performed By: #### C BC #### [facility] [address] [place], [place] [id number] Jose Lacy MCH (RBC) [Entitic mass] 30.5 pg Normal 26.7-34.0 [facility] Comment on above: Performed By: #### C BC #### [facility] [address] [place] [address] Jose Lacy MCHC (RBC) [Mass/Vol] 32.4 g/dL Normal 29.9-35.2 [facility] Comment on above: Performed By: #### C BC #### [facility] [address] [id number] Jose Lacy MCV (RBC) [Entitic vol] 94.0 fL Normal 81.0-99.0 [facility] Comment on above: Performed By: #### C BC #### [facility] [address] [id number] Jose Lacy MONO # 0.6 103/ul Normal 0.3-0.8 [facility] Comment on above: Performed By: #### C BC #### [facility] [address] [place], [place] [id number] Jose Lacy Monocytes/100 WBC (Bld) 5.7 % Normal 1.7-12.0 [facility] Comment on above: Performed By: #### C BC #### [facility] [address] [place] [address] Jose Millarden NEUT # 4.4 103/ul Normal 1.4-6.5 [facility] Comment on above: Performed By: #### C BC #### [facility] [address] [place], [place] [id number] Jose Lacy Neutrophils/100 WBC (Bld) 44.8 % Normal 43.0-75.0 [facility] Comment on above: Performed By: #### C BC #### [facility] [address] [place], [place] [id number] Jose Lacy Platelet mean volume (Bld) [Entitic vol] 11.3 fL Normal 9.5-13.5 [facility] Comment on above: Performed By: #### C BC #### [facility] [address] [place], [place] [id number] Jose Bambi PLT 239 103/ul Normal 150-450 [facility] Comment on above: Performed By: #### C BC #### [facility] [address] [place], [place] [id number] Jose Bambi RBC 3.84 106/ul Critically low 4.20-5.40 [facility] Comment on above: Performed By: #### C BC #### [facility] [address] [place], [place] [address] Jose Lacy WBC 9.8 103/ul Normal 4.0-11.0 [facility] Comment on above: Performed By: #### C BC #### [facility] [address] [place], [place] [address] Jose Lacy Vital Signs Date Time Vital Sign Value Performing Clinician Facility 05-14-2023 13:52-0500 Body height 160 cm Reinaldo Rogel MD Work Phone: [facility] 05-14-2023 13:52-0500 Body mass index (BMI) [Ratio] 26.57 kg/m2 Reinaldo Rogel MD Work Phone: [facility] 05-14-2023 13:52-0500 Body weight 68.04 kg Reinaldo Rogel MD Work Phone: [facility] 05-14-2023 13:52-0500 Diastolic blood pressure 70 mm[Hg] Reinaldo Rogel MD Work Phone: [facility] 05-14-2023 13:52-0500 Heart rate 68 /min Reinaldo Rogel MD Work Phone: [facility] 05-14-2023 13:52-0500 SaO2% (BldA) [Mass fraction] 98 % Reinaldo Rogel MD Work Phone: [facility] 05-14-2023 13:52-0500 Systolic blood pressure 122 mm[Hg] Reinaldo Rogel MD Work Phone: [facility] 03-12-2022 12:15-0500 Body height 160.02 cm Gabi Gaona Other [employer] Other 03-12-2022 12:15-0500 Body mass index (BMI) [Ratio] 26.57 kg/m2 Gabi Gaona Other [employer] Other 03-12-2022 12:15-0500 Body temperature 97.8 [degF] Gabi Candelaria Other [employer] Other 03-12-2022 12:15-0500 Body weight 68.04 kg Gabi Candelaria Other [employer] Other 03-12-2022 12:15-0500 Diastolic blood pressure 68 mm[Hg] Gabi Candelaria Other [employer] Other 03-12-2022 12:15-0500 Respiratory rate 18 /min Gabi Candelaria Other [employer] Other 03-12-2022 12:15-0500 SaO2% (BldA) [Mass fraction] 98 % Gabi Candelaria Other [employer] Other 03-12-2022 12:15-0500 Systolic blood pressure 123 mm[Hg] Gabi Candelaria Other [employer] Other 01-31-2022 15:09-0400 Body height 158.9 cm Simin Lama MD Work Phone: [facility] 01-31-2022 15:09-0400 Body temperature 97.3 [degF] Simin Lama MD Work Phone: [facility] 01-31-2022 15:09-0400 Body weight 70.03 kg Simin Lama MD Work Phone: [facility] 01-31-2022 15:09-0400 Diastolic blood pressure 65 mm[Hg] Simin Lama MD Work Phone: [facility] 01-31-2022 15:09-0400 Heart rate 62 /min Simin Lama MD Work Phone: [facility] 01-31-2022 15:09-0400 Respiratory rate 16 /min Simin Lama MD Work Phone: [facility] 01-31-2022 15:09-0400 SaO2% (BldA) [Mass fraction] 100 % Simin Lama MD Work Phone: [facility] 01-31-2022 15:09-0400 Systolic blood pressure 142 mm[Hg] Simin Lama MD Work Phone: [facility] 07-28-2021 14:24-0400 Body height 158.9 cm Drake Anand MD Work Phone: [facility] 07-28-2021 14:24-0400 Body temperature 97.9 [degF] Drake Anand MD Work Phone: [facility] 07-28-2021 14:24-0400 Body weight 69.94 kg Drake Anand MD Work Phone: [facility] 07-28-2021 14:24-0400 Diastolic blood pressure 74 mm[Hg] Drake Anand MD Work Phone: [facility] 07-28-2021 14:24-0400 Heart rate 56 /min Drake Anand MD Work Phone: [facility] 07-28-2021 14:24-0400 Respiratory rate 18 /min Drake Anand MD Work Phone: [facility] 07-28-2021 14:24-0400 SaO2% (BldA) [Mass fraction] 98 % Drake Anand MD Work Phone: [facility] 07-28-2021 14:24-0400 Systolic blood pressure 150 mm[Hg] Drake Anand MD Work Phone: [facility] Encounters Encounter Date Encounter Type Care [...] cerebral infarction (CMS/HCC); Coronary artery disease involving minto coronary artery of minto heart without angina pectoris (CMS/HCC); Pulmonary hypertension, [...] Start: 05-15-2022 End: 05-15-2022 ambulatory Simin Lama Facility:[facility] Start: 05-15-2022 Telephone encounter Simin stanford MD Work Phone: [facility] Comment on above: Orders Start: 05-15-2022 End: 05-15-2022 ambulatory DO Jorge Luis Furlong Work Phone: [facility] Work Phone: Start: 05-15-2022 End: 05-15-2022 Patient encounter procedure DO Jorge Luis Furlong Work Phone: [facility] [place] [facility] Work Phone: Start: 03-12-2022 End: 03-12-2022 ambulatory Gabi Gaona Other [employer] Other Start: 03-12-2022 Office outpatient ne w 20 minutes Gabi Gaona [facility] Start: 02-13-2022 Telephone encounter Shiva Bess Hematology/Oncology Comment on above: Appointment Start: 01-31-2022 End: 01-31-2022 ambulatory SIMIN LAMA Facility: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 Comment on above: Appointment Start: 07-28-2021 End: 07-28-2021 ambulatory DRAKE ANAND Facility:[facility] Start: 07-28-2021 End: 07-28-2021 ambulatory [...] PA-C Work Phone: Hematology/Oncology Comment on above: [employer] Start: 03-19-2021 Encounter for preprocedural cardiovascular examination DR TIM NIÑO [facility] Start: 03-19-2021 Encounter for preprocedural laboratory examination DR TIM NIÑO [facility] Start: 03-18-2021 End: 12-03-[address] [...] 03-19-2025 Glaucoma screening Diabetes: R etinopathy Screening [facility] Start: 07-28-2024 DIABETES SCREEN DIABETES SCREEN [facility] Start: 05-14-2024 Medicare Annual Well ness (AWV) Medicare Annual Wellness (AWV) [facility] Start: 04-11-2024 DIABETES SCREEN DIABETES SCREEN [facility] Start: 09-24-2023 End: 09-24-2023 Patient encounter procedure 09/24/2023 2:00 PM EDT Office Visit [facility] [address] [place] [address] Reinaldo Rogel MD [address] [place] [address] [facility] Start: 06-15-2023 Hemoglobin A1c measurement Diabetes: Hemoglobin A1C [facility] Start: 06-03-2022 End: 08-03-2022 CBC W Auto Differential panel - Blood CBC + DIFF Lab Routine 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, left (HCC) Expected: 06/03/2022 (Approximate), Expires: 08/03/2022 [facility] Work Phone: Comment on above: Expected: 06/03/2022 (Approximate), Expires: 08/03/2022 Start: 06-03-2022 End: 08-03-2022 Comprehensive metabolic 2000 panel - Serum or Plasma COMP METABOLIC PANEL Lab Routine 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, left (HCC) Expected: 06/03/2022 (Approximate), Expires: 08/03/2022 [facility] Work Phone: Comment on above: Expected: 06/03/2022 (Approximate), Expires: 08/03/2022 Start: 05-12-2022 Adult depression screening assessment DEPRESSION SCREENING [facility] Start: 04-16-2022 ADVANCE DIRECTIVE DISCUSSION ADVANCE DIRECTIVE DISCUSSION [facility] Start: 04-16-2022 DEPRESSION ASSESSMENT DEPRESSION ASS ESSMENT [facility] Start: 02-14-2022 End: 03-02-2023 Diagnostic mammography computer-aided detcj uni [facility] Radiology Routine 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, left (HCC) Expected: 02/14/2022, Expires: 03/02/2023 [facility] Work Phone: Comment on above: Expected: 02/14/2022 , Expires: 03/02/2023 Start: 12-15-2021 Influenza vaccination C [facility] Start: 06-07-2021 COVID-19 VACCINE (4 - Booster for Pfizer series) COVID-19 VACCINE (4 - Booster for Pfizer series) [facility] Start: 04-16-2021 ADVANCE DIRECTIVE DISCUSSION ADVANCE DIRECTIVE DISCUSSION [facility] Start: 04-16-2021 DEPRESSION ASSESSMENT DEPRESSION ASS ESSMENT [facility] Start: 04-01-2021 COVID-19 VACCINE (4 - Booster for Pfizer series) COVID-19 VACCINE (4 - Booster for Pfizer series) [facility] Start: 2006 BONE DENSITY BONE DENSITY [facility] Start: 1991 SHINGRIX VACCINE (1 of 2) SHINGRIX VACCINE (1 of 2) [facility] Start: 1960 Urine microalbumin profile DTAP,TDAP,TD (1 - Tdap) [facility] End: 07-28-2022 CBC W Auto Differential panel - Blood CBC + DIFF Lab Routine 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, left (HCC) Every 3 months for 10 Occurrences starting 07/28/2021 until 07/28/2022, 1 completed [facility] Work Phone: Comment on above: Every 3 months for 1 0 Occurrences starting 07/28/2021 until 07/28/2022, 1 completed End: 07-28-2022 Comprehensive metabolic 2000 panel - Serum or Plasma COMP METABOLIC PANEL Lab Routine 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, left (HCC) Every 3 months for 10 Occurrences starting 07/28/2021 until 07/28/2022 [facility] Work Phone: Comment on above: Every 3 months for 1 0 Occurrences starting 07/28/2021 until 07/28/2022 End: 06-14-2023 Diagnostic mammography computer-aided detcj bi [facility] Radiology Routine 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, left (HCC) 1 Occurrences starting 05/15/2022 until 06/14/2023 [facility] Work Phone: Comment on above: 1 Occurrences starti ng 05/15/2022 until 06/14/2023 End: 08-27-2022 Screening mammography bi [facility] cad DANIELLE SCREENING Radiology Routine 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, left (HCC) 1 Occurrences starting 07/28/2021 until 08/27/2022 [facility] Work Phone: Comment on above: 1 Occurrences starti ng 07/28/2021 until 08/27/2022 End: 06-14-2023 Us breast uni real time with image limited [facility] Work Phone: Comment on above: 1 Occurrences starti ng 05/15/2022 until 06/14/2023 [facility] Immunizations Immunization Date Immunization Notes Care Provider Fa [facility] 01-23-2023 Influenza, High-dose Seasonal, Quadrivalent, Preservative Free Reinaldo Rogel MD Work Phone: [facility] 02-08-2022 Influenza, High-dose Seasonal, Quadrivalent, Preservative Free Reinaldo Rogel MD Work Phone: [facility] 02-04-2021 COVID-19 vaccine, ag e 12+ yr (PFIZER-BIONTECH - PURPLE TOP) Ru Blackman RN [facility] 01-19-2021 Influenza, High-dose Seasonal, Quadrivalent, Preservative Free Reinaldo Rogel MD Work Phone: [facility] 06-03-2020 COVID-19 vaccine, ag e 12+ yr (PFIZER-BIONTECH - PURPLE TOP) Ru Blackman RN [facility] 05-12-2020 COVID-19 vaccine, ag e 12+ yr (PFIZER-BIONTECH - PURPLE TOP) Ru Blackman RN [facility] 01-15-2020 influenza, seasonal, injectable Reinaldo Rogel MD Work Phone: [facility] 12-26-2019 influenza, high dose seasonal, preservative-free Ru Blackman RN [facility] 01-24-2018 influenza, high dose seasonal, preservative-free Ru Blackman RN [facility] 01-25-2017 influenza, high dose seasonal, preservative-free Ru Blackman RN [facility] 01-20-2015 influenza, injectabl e, quadrivalent, contains preservative Reinaldo Rogel MD Work Phone: [facility] 10-12-2014 pneumococcal conjuga te vaccine, 13 valent Ru Blackman RN [facility] 04-05-2010 pneumococcal polysaccharide vaccine, 23 valent Ru Blackman RN [facility] Payers Date Payer Category Payer Unknown [id number] 2022 Self-pay [id number] 2018 Unknown ANTHEM BLUE CROS S AND BLUE SHIELD ANTHEM MEDIBLUE O [id number] 2018-Present [phone] [address] [place] [address] [facility] [id number] 2018 Unknown [id number] [id number] 1959 Unknown [id number] 1941 Unknown [id number] [id number] 1941 Unknown [id number] 2.16.840.1.206274.3.579.2.593 1941 Unknown [id number] 2.16.840.1.329588.3.579.2.593 1941 Unknown [id number] 2.16.840.1.911779.3.579.2.593 1941 Unknown [id number] 2.16.840.1.163826.3.579.2.593 1941 Unknown [id number] 2.16.840.1.105556.3.579.2.593 1941 Unknown [id number] 2.16.840.1.011313.3.579.2.593 1941 Unknown [id number] 2.16.840.1.151736.3.579.2.593 1941 Unknown [id number] 2.16.840.1.316257.3.579.2.125 9 1941 Unknown [id number] 2.16.840.1.932382.3.579.2.125 9 1941 Unknown [id number] 2.16.840.1.502123.3.579.2.125 9 Unknown [id number] [id number] Social History Date Type Detail Facility Start: 04-05-2021 End: 11-29-2022 Tobacco smoking status NHIS Never smoked tobacco [facility] Start: 04-05-2021 End: 11-29-2022 Tobacco use and exposure Smokeless tobacco non-user [facility] Start: 05-12-2021 End: 05-24-2023 Alcohol intake Ex-drinker (finding) [facility] Start: 1940 Sex Assigned At Not on file [facility] Start: 07-18-2021 End: 01-31-2022 Exposure to SARS-CoV-2 (event) Not sure [facility] Start: 05-14-2023 End: 05-24-2023 Sex Assigned At [facility] [employer] Other Start: 1940 Sex Assigned At Female F [facility] History of tobacco use Passive smoker [facility] Start: 05-14-2023 End: 05-24-2023 History of Social function [facility] Start: 04-03-2023 Alcohol Comment caffeine intak e: 3-4 cups daily coffee [facility] Clinical Notes 03-18-2021 to 05-14-2023 Reinaldo Rogel [...] Yes Vision Screening: Yes, 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 We discussed telling tyelr people about their advance directives such as [...] to someone more local when driving to [place] is driving is a little more difficult [...] home exercise program. Coronary artery disease involving minto coronary artery of minto heart without angina pectoris (CMS/HCC) Chronic problem, [...] May 24, 2023 documented in this encounter [facility] 05-15-2022 Miscellaneous Notes Formattin g of this note might be different from the original. Received call from pt stating she is at [facility] and needs mammogram orders sent. Orders faxed as requested. Ru Thomas RN documented in this encounter [facility] 05-15-2022 Miscellaneous Notes Formattin g of this note might be different from the original. Faxed order to Chrissie May 15, 2022 2:15 PM Honey Tucker Faxed order to Chrissie May 15, 2022 2:15 PM Honey Tucker Ordered Patient is currently at [facility] for her Mammogram. Chrissie is calling to request a new order. 1) Diagnostic Bilateral Mammogram 2) US order (that way they have it if needed) Jyothi: If in agreement, can you please place order PERLITA and I will fax back to her? Thanks! Chrissie: Gladys. [phone] Fax. [phone] Honey Tucker documented in this encounter [facility] 03-12-2022 Evaluation note Encounter Date Diagnosis [...] no improvement in 2 to 3 days. [employer] Other 10-31-2022 Miscellaneous Notes* Telephone Encounter - [...] advise Shiva Reyes RN [facility]22 NoteHNO ID: [id number] Author: Simin Lama MD Service: ? Author Type: Physician Type: Progress Notes Filed: 01/31/2022 3:38 PM Note Text: PATIENT NAME: Johanny Forbes CLINIC NO.: [id number] ATTENDING PHYSICIAN: Simin Lama MD DATE OF [...] metastatic breast carcinoma, 5 cm, ER 0, AL 0, HER-2 0 by IHC. The tissue was not evaluated for flow cytometry to rule out a lymphoproliferative process. 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 Differential included mammary, skin, urothelial, pancreaticobiliary and pulmonary primaries. ER 0, AL 0, HER-2 negative by CAMERON. 2021 PET [...] 141 Chloride (mmol (more content not included)...[facility] 01-31-2022 Miscellaneous Notes* Telephone Encounter - Honey Tucker - 01/31/2022 4:[address] Lama, patient had a previous abnormal L Mammogram and never followed up. He would like L Mammogram completed now. Faxed order to [facility] scheduling per patient's hospital request. Honey Tucker [facility] History of Present illness Narrative* Simin Lama MD - 01/31/2022 3:19 PM EDT PATIENT NAME: Johanny Forbes [facility] NO.: [id number] ATTENDING PHYSICIAN: Simin Lama MD DATE OF [...] metastatic breast carcinoma, 5 cm, ER 0, AL 0, HER-2 0 by IHC. The tissue was not evaluated for flow cytometry to rule out a lymphoproliferative process. 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 Differential included mammary, skin, urothelial, pancreaticobiliary and pulmonary primaries. ER 0, AL 0, HER-2 negative by CAMERON. 2021 PET [...] 07/28/2021 3.28 1.00 - 4.00 k/uL Final Republic% Date Value Ref Range Status 07/28/2021 5.9 % Final Abs Republic Date Value Ref Range Status 07/28/2021 0.46 [...] Maira Saunders, [place] and [place], of the [facility] breast pathology department, who concur. Metastatic [...] do not hesitate to contact me at [phone]. Simin Lama MD Hematology/Medical Oncology [facility] I spent a total of 30 minutes on the date of the service which included preparing to see the patient, [id number] patient care, completing clinical documentation, obtaining and/or reviewing separately obtained history, performing a medically appropriate examination, counseling and educating the pat ient/family/caregiver, and ordering medications, tests, or procedures. Medical Decision Making: Medical Decision Making Level: 1 - N/A CC: DO Jorge Luis Webster DO documented in this encounter[facility]04-14-2022 NoteHNO ID: [id number] Author: Drake Anand MD Service: ? Author [...] metastatic breast carcinoma, 5 cm, ER 0, AL 0, HER-2 0 by IHC. The tissue was not evaluated for flow cytometry to rule out a lymphoproliferative process. 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 Differential included mammary, skin, urothelial, pancreaticobiliary and pulmonary primaries. ER 0, AL 0, HER-2 negative by CAMERON. ? 2021 [...] of the (more content not included)... [facility]04-14-2022 History of Present illness Narrative* Drake [...] metastatic breast carcinoma, 5 cm, ER 0, AL 0, HER-2 0 by IHC. The tissue was not evaluated for flow cytometry to rule out a lymphoproliferative process. 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 Differential included mammary, skin, urothelial, pancreaticobiliary and pulmonary primaries. ER 0, AL 0, HER-2 negative by CAMERON. 2021 PET [...] which included preparing to see the patient, [id number] patient care, completing clinical documentation, obtaining and/or reviewing separately obtained history, counseling and educating the patient/family/caregiver, ordering medications, herlinda ts, or procedures, independently interpreting results (not separately reported) and communicating results to the patient/family/caregiver. [facility]04-[facility]-2022 Miscellaneous Notes* Telephone Encounter - Thao Alanis [...] discuss further. She can be reached at [phone]. Ru Blackman RN documented [facility]12-28-2021 Miscellaneous Notes* Telephone Encounter - Amarilys Murry PA-C - 04/12/2021 4:42 PM EST Request received from [facility] for additional diagnosis codes for MRI breast because diagnosis providedis not a covered diagnosis. Will send with additional diagnosis codes. Will try C50.912 and C77.3. (carcinoma of breast metastatic to left axillary node) Amarilys Murry PA-C documented in this encounter[facility]12-03-2021 NoteOPERATIVE NOTE OPERATION DATE: 03-18-21 ANESTHETIC:LMA. CHEMICAL INSTRUMENTATION OFFICER:Loraine Tim, SUPERVISOR FISHING PREOPERATIVE DIAGNOSIS:Left axillary mass. POSTOPERATIVE DIAGNOSIS: Same. [...] taken to the PACU in fair condition. [facility] Signed and Approved by: DR TIM NIÑO . 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, left (HCC)- Primary [facility]No assessment information availableGerman [facility] Work Phone: Evaluation note* Diagnosis [...] cerebral infarction (CMS/HCC) Coronary artery disease involving minto coronary artery of minto heart without angina pectoris (CMS/HCC) Pulmonary hypertension, mild (CMS/HCC) Other chronic pulmonary heart diseases Chronic kidney disease, stage 3b (HCC) (CMS/HCC) Type 2 diabetes mellitus with stage 3b chronic kidney disease, without long-term current use of insulin (HCC) (CMS/HCC) 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, left (CMS/HCC) Mixed dyslipidemia (CMS/HCC) documented in this encounter [facility] Diagnostic Procedure Only (Routine) - Pending Review Specialty Diagnoses / Procedures Referred By Jerry hernandes Referred To Contact [facility] Diagnoses 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, left (HCC) Procedures DANIELLE SCREENING SCREENING MAMMOGRAPHY BI 2-VIEW BREAST INC CAD Drake Anand MD [address] [place] [address] [place] [address] [facility] [address] [place] [address] Referral ID Status Reason Start Date Expiration Date Visits Requested Visits Authorized [id number] Pending Review Auto-Generat ed Referral 07/28/2021 08/27/2022 1 1 [facility] for referral (narrative)* Diagnostic Procedure Only (Routine) - Pending Review Specialty Diagnoses / Procedures Referred By Jerry hernandes Referred To Contact [facility] Diagnoses 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, left (HCC) Procedures DANIELLE DIAGNOSTIC LT DIAGNOSTIC MAMMOGRAPHY COMPUTER-AIDED DETCJ Simin Montano MD [address] [place] [address] [place] [address] [facility] [address] [place] [address] Referral ID Status Reason Start Date Expiration Date Visits Requested Visits Authorized [id number] Pending Review Auto-Generat ed Referral 02/14/2022 03/02/2023 1 1 [facility] for referral (narrative)* Diagnostic Procedure Only (Routine) - Pending Review Specialty Diagnoses / Procedures Referred By Contac t Referred To Contact [facility] Diagnoses 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, left (HCC) Procedures US BREAST LTD RT US BREAST UNI REAL TIME WITH IMAGE LIMITED Simin Lama MD [address] [place] [address] [facility] [address] [place] [address] Referral ID Status Reason Start Date Expiration Date Visits Requested Visits Authorized [id number] Pending Review Auto-Generat ed Referral 05/15/2022 06/14/2023 1 1 * Diagnostic Procedure Only (Routine) - Pending Review Specialty Diagnoses / Procedures Referred By Contac t Referred To Contact [facility] Diagnoses 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, left (HCC) Procedures US BREAST LTD LT US BREAST UNI REAL TIME WITH IMAGE LIMITED Simin Lama MD [address] [place] [address] [facility] [address] [place] [address] Referral ID Status Reason Start Date Expiration Date Visits Requested Visits Authorized [id number] Pending Review Auto-Generat ed Referral 05/15/2022 06/14/2023 1 1 * Diagnostic Procedure Only (Routine) - Pending Review Specialty Diagnoses / Procedures Referred By Contac t Referred To Contact [facility] Diagnoses 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, left (HCC) Procedures DANIELLE DIAGNOSTIC BILAT DIAGNOSTIC MAMMOGRAPHY COMPUTER-AIDED DETCJ BI Simin Lama MD [address] [place] [address] [facility] [address] [place] [address] Referral ID Status Reason Start Date Expiration Date Visits Requested Visits Authorized [id number] Pending Review Auto-Generat ed Referral 05/15/2022 06/14/2023 1 1 [facility] Summary Purpose Family History No Family [...] section and content) DATE CREATED AUTHOR 06/27/2018 [facility] DATE CREATED AUTHOR AUTHOR'S ORGANIZ ATION 07/08/2019 [facility] DATE CREATED AUTHOR AUTHOR'S ORGANIZ ATION 05/07/2021 [facility] DATE CREATED AUTHOR AUTHOR'S ORGANIZ ATION 12/11/2021 [facility] DATE CREATED AUTHOR AUTHOR'S ORGANIZ ATION 05/16/2022 [facility] DATE CREATED AUTHOR AUTHOR'S ORGANIZ ATION 05/24/2022 [facility] DATE CREATED AUTHOR AUTHOR'S ORGANIZ ATION 05/15/2023 [facility] EP[employer] Source Comments (unrecognize d section and content) In the event this informatio n is protected by the Federal Confidentiality of Alcohol and Drug Abuse Patient Records regulations: The Federal rules restrict any use of the information to criminally investigate or prosecute any alcohol or drug abuse patient.[facility] HealthIn the event this information is protected by the Federal Confidentiality of Alcohol and Drug Abuse Patient Records regulations: The Federal rules restrict any use of the information to criminally investigate or prosecute any alcohol or drug abuse patient.[facility] HealthIn the event this information is protected by the Federal Confidentiality of Alcohol and Drug Abuse Patient Records regulations: The Federal rules restrict any use of the information to criminally investigate or prosecute any alcohol or drug abuse patient.[facility] HealthIn the event this information is protected by the Federal Confidentiality of Alcohol and Drug Abuse Patient Records regulations: The Federal rules restrict any use of the information to criminally investigate or prosecute any alcohol or drug abuse patient.[facility] HealthIn the event this information is protected by the Federal Confidentiality of Alcohol and Drug Abuse Patient Records regulations: The Federal rules restrict any use of the information to criminally investigate or prosecute any alcohol or drug abuse patient.[facility] HealthIn the event this information is protected by the Federal Confidentiality of Alcohol and Drug Abuse Patient Records regulations: The Federal rules restrict any use of the information to criminally investigate or prosecute any alcohol or drug abuse patient.[facility] HealthIn the event this information is protected by the Federal Confidentiality of Alcohol and Drug Abuse Patient Records regulations: The Federal rules restrict any use of the information to criminally investigate or prosecute any alcohol or drug abuse patient.[facility] HealthIn the event this information is protected by the Federal Confidentiality of Alcohol and Drug Abuse Patient Records regulations: The Federal rules restrict any use of the information to criminally investigate or prosecute any alcohol or drug abuse patient.[facility] Reason for Visit (unrecogniz ed section and content) Reason Comments Patient Question Reason Comments Breast Cancer 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 Breast Cancer Follow up Reason Comments Appointment Reason Comments Orders Reason Comments Orders Reason Comments Annual Exam Care Teams (unrecognized sec tion and content) Groundhand Relationship Specialty Start Date End Date Jorge Luis Whitehead [address] [facility] [place] [address] PCP - General Family Practice 03/28/21 Groundhand Relationship Specialty Start Date End Date Jorge Luis Whitehead [address] [place] [address] PCP - General Family Practice 03/28/21 Groundhand Relationship Specialty Start Date End Date Jorge Luis Whitehead, DO [address] [place] [address] PCP - General Family Practice 03/28/21 Groundhand Relationship Specialty Start Date End Date Jorge Luis Whitehead, DO [address] [place] [address] PCP - General Family Medicine 03/28/21 Groundhand Relationship Specialty Start Date End Date Jorge Luis Whitehead, DO [address] [place] [address] PCP - General Family Medicine 03/28/21 Groundhand Relationship Specialty Start Date End Date Jorge Luis Whitehead, DO [address] [place] [address] PCP - General Family Medicine 03/28/21 Groundhand Relationship Specialty Start Date End Date Jorge Luis Whitehead, DO [address] [place] [address] PCP - General Family Medicine 03/28/21 Groundhand Relationship Specialty Start Date End Date Jorge Luis Whitehead, DO [address] [place] [address] PCP - General Family Medicine 03/28/21 Team Status: Inactive Member Role Status Dates Jorge Luis Whitehead DO Primary Care Provider Active Simin Lama MD Attending Provider Active Team Status: Active Member Role Status Dates Jorge Luis Whitehead DO Primary Care Provider Active Groundhand Relationship Specialty Start Date End Date Amanda Briones MD [address] [facility] [place], [place] [phone] PCP - General Family Medicine 09/07/22 Amanda Briones MD [address] [facility] [place], [place] [id number] PCP - Devoted 04/16/23 Linette Blankenship NP [address] [facility] [place], [place] [phone] Nurse Practitioner Family Medicine 09/07/22 Goals (unrecognized [...] BE BASED ON THE PRIMARY CLINICAL RECORDS. [employer] provides no warranty or guarantee of the accuracy or completeness of information in this document.
[2023-06-01 06:43] LABS: Bilirubin Urine NEGATIVE (NEGATIVE); Blood Urine NEGATIVE (NEGATIVE); Clarity Urine CLEAR (CLEAR); Color Urine YELLOW (YELLOW); Glucose Urine UA 250 mg/dL (NEGATIVE); Ketones Urine 15 mg/dL (NEGATIVE); Leukocyte Esterase Urine TRACE (NEGATIVE); Nitrite Urine NEGATIVE (NEGATIVE); Protein Urine NEGATIVE (NEG/TRACE); Specific Gravity Urine >=1.030 (1.005-1.025); Urobilinogen Urine 0.2 EU/dL (0.2-1.0); pH Urine 5.5 (5.0-9.0)
--- NOTE | 2023-06-01 06:44 | PC.NURSE ---
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
[2023-06-01 06:50] LABS: Bacteria Urine TRACE #/HPF (NONE SEEN); Cast Seen? NONE SEEN #/LPF (NONE SEEN); Crystals Seen? None Seen #/HPF (None Seen); Mucus Urine NONE SEEN (NONE SEEN); RBC Urine 0-2 #/HPF (0-2); Squamous Epithelial Cell Urine FEW #/LPF (NONE/RARE)
[2023-06-01] MEDS: ASPIRIN 81 MG TAB.CHEW PO (09:32)
[2023-06-01] MEDS: CIPROFLOXACIN IN 5 % DEXTROSE 400 MG/200 ML PIGGYBACK 200 MG IV ×2 (09:32→20:55)
[2023-06-01] MEDS: ENOXAPARIN SODIUM 30 MG/0.3 ML SYRINGE SUBQ (09:32)
[2023-06-01] MEDS: ACETAMINOPHEN 500 MG TABLET 1000 MG PO (09:32)
[2023-06-01] MEDS: CLOPIDOGREL BISULFATE 75 MG TABLET PO (09:32)
[2023-06-01] MEDS: CARVEDILOL 3.125 MG TABLET PO ×2 (09:33→20:55)
[2023-06-01] MEDS: LEVOTHYROXINE SODIUM 25 MCG TABLET PO (09:33)
[2023-06-01] MEDS: 0.9 % SODIUM CHLORIDE 1,000 ML 80 ML IV ×2 (09:34→16:18)
--- NOTE | 2023-06-01 09:45 | PC.NURSE ---
physician rounding at this time
--- NOTE | 2023-06-01 10:52 | CM.NOTE ---
Rounds made with Dr. Santiago, pt will remain OBS status. IV antibiotics and IV fluids.
[2023-06-01 11:22] LABS: Glucometer 218 mg/dL (74-106)
[2023-06-01] MEDS: INSULIN ASPART 300 UNIT/3 ML PEN SUBQ (11:27)
--- NOTE | 2023-06-01 11:44 | PM.HP ---
H&P: HPI History of Present Illness Chief complaint: ABD PAIN COLLITIS ATRIAL FLUTTER Narrative: 83 y/o female to ER with nausea, vomiting and diarrhea. Developed diarrhea 2 days prior. Frequent watery stool and diffuse abdominal cramping. Developed severe nausea and dry heaves but no emesis. [place] lightheaded and sweaty and to ER. Afebrile but c/o chills. WBC elevated at 14.8. CT showed colitis. In ER noted abnormal telemetry and brief episodes of atrial flutter. No palpitations and no history of arrhythmia. Admitted for treatment. Review of Systems ROS Constitutional Reports: chills; Denies: fever Cardiovascular Reports: lightheadedness; Denies: chest pain, palpitations or edema Respiratory Denies: shortness of breath, cough or wheezing Gastrointestinal Reports: abdominal pain, nausea, vomiting and diarrhea Genitourinary Denies: painful urination [facility] Medical History (Updated 06/01/23 @ 08:51 by Hunter Santiago MD) Lumbar spondylosis ?M47.816 - Spondylosis without myelopathy or radiculopathy, lumbar region (ICD-10) AAA (abdominal aortic aneurysm) without rupture ?I71.40 - Abdominal aortic aneurysm, without rupture, unspecified (ICD-10) Cerebrovascular accident ?I63.9 - Cerebral infarction, unspecified (ICD-10) Type 2 diabetes mellitus ?E11.9 - Type 2 diabetes mellitus without complications (ICD-10) Lacunar stroke, acute ?I63.81 - Other cerebral infarction due to occlusion or stenosis of small artery (ICD-10) Hypothyroid ?E03.9 - Hypothyroidism, unspecified (ICD-10) HLD (hyperlipidemia) ?E78.5 - Hyperlipidemia, unspecified (ICD-10) Cataract (lens) fragments in eye following cataract surgery, bilateral ?H59.023 - Cataract (lens) fragments in eye following cataract surgery, bilateral (ICD-10) Cataracts, bilateral ?H26.9 - Unspecified cataract (ICD-10) Chronic kidney disease, stage 3 unspecified ?N18.30 - Chronic kidney disease, stage 3 unspecified (ICD-10) Borderline diabetes mellitus ?R73.03 - Prediabetes (ICD-10) Myocardial infarct, old ?I25.2 - Old myocardial infarction (ICD-10) Surgical History History of appendectomy ?Z90.49 - Acquired absence of other specified parts of digestive tract (ICD-10) History of right heart catheterization ?Z98.890 - Other specified postprocedural states (ICD-10) H/O lumpectomy ?Z98.890 - Other specified postprocedural states (ICD-10) Family History Brother Family history of diabetes mellitus Family history of myocardial infarction Mother Family history of diabetes mellitus Family history of myocardial infarction Sister Family history of myocardial infarction Family history of stroke Daughter Family history of cancer Uncle Family history of CHF (congestive heart failure) Father Family history of COPD (chronic obstructive pulmonary disease) Social History Within the past year, how often did you have a drink containing alcohol: never Score interpretation: A score less than 3 is consistent with normal alcohol consumption. 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 Known occupational exposures/hazards: No Highest level of school completed/degree received: some college, no degree Do you want help with school or training: No Are you now , , , , never or living with a partner: In a typical week, how many times do you talk on the telephone with family, friends, or neighbors: 3 or more times per week How often do you get together with friends or relatives: 3 or more times per week Little interest or pleasure in doing things: not at all Feeling down, depressed, or hopeless: not at all Feel stressed/tense/nervous/anxious/difficulty sleeping: not at all Life stressors: recent of family or friend Life stressor details: daughter last year Do you think of yourself as: straight/heterosexual Gender Identity: female Meds Home Medications and Allergies Home Medications Medication Instructions Recorded Confirmed Type carvedilol 3.125 mg tablet 3.125 mg PO BID 03/21/23 06/01/23 History levothyroxine 25 mcg tablet 25 mcg PO QDAY 03/21/23 06/01/23 History valsartan 40 mg tablet 20 mg PO QDAY 03/21/23 06/01/23 History aspirin 81 mg chewable tablet 81 mg PO DAILY #30 tabs 03/22/23 06/01/23 Rx clopidogrel 75 mg tablet (Plavix) 75 mg PO DAILY #30 tabs 03/22/23 06/01/23 Rx Allergies Allergy/AdvReac Type Severity Reaction Status Date / Time Penicillins Allergy Severe Verified 06/01/23 00:36 lisinopril AdvReac Severe Verified 06/01/23 00:36 Exam Constitutional Vital Signs, click to edit/add: Last Vital Signs Temp 97.9 F 06/01/23 09:32 Pulse 61 06/01/23 09:59 Resp 16 06/01/23 09:32 BP 112/65 06/01/23 09:32 Pulse Ox 96 06/01/23 09:32 O2 Del Method Room Air 06/01/23 09:32 Documenting provider has reviewed patient's vital signs: yes Common normals: no apparent distress, oriented x3 and alert HENMT Common normals: normocephalic Eye Common normals: PERRL and EOMs intact bilaterally Respiratory Common normals: normal respiratory effort and clear to auscultation bilaterally Cardio Common normals: regular rate, regular rhythm, no gallops, no murmurs and no rub GI Common normals: soft to palpation Palpation: tender (Mild diffuse TTP); no guarding Extremity Common normals: no pedal edema Results Labs Labs: Short CBC 06/01/23 Range/Units 00:45 WBC 14.8 H (4.0-11.0) 10^3/uL Hgb 12.5 (12.0-16.0) g/dL Hct 38.6 (36.0-48.0) % Plt Count 237 (150-450) 10^3/uL BMP 06/01/23 00:45 Sodium 139 Potassium 4.6 Chloride 106 Carbon Dioxide 22.1 BUN 31.0 H Creatinine 1.37 H Glucose 213 H Calcium 9.1 Liver Function 06/01/23 Range/Units 00:45 Total Bilirubin 0.6 (0.2-1.0) mg/dL AST 28 (15-37) U/L ALT 19 (14-59) U/L Alkaline Phosphatase 76 (46-116) U/L Albumin 3.4 (3.4-5.0) g/dL Urine 06/01/23 Range/Units 06:10 Urine Color Yellow (YELLOW) Urine Clarity Clear (CLEAR) Urine pH 5.5 (5.0-9.0) Ur Specific [place] >=1.030 A (1.005-1.025) Urine Protein Negative (NEG/TRACE) mg/dL Urine Glucose (UA) 250 A (NEGATIVE) mg/dL Imaging CT scan - abdomen: Attestation: I have reviewed the pertinent imaging results. Assessment and Plan Assessment and Plan (1) Colitis: (2) Paroxysmal atrial flutter: (3) Type 2 diabetes mellitus with hyperglycemia: (4) HTN (hypertension): Qualifiers: Hypertension type: primary hypertension Qualified Code(s): I10 - Essential (primary) hypertension (5) CAD (coronary artery disease): Qualifiers: Coronary Disease-Associated Artery/Lesion type: [place] artery [place] vs. transplanted heart: [place] heart Associated angina: without angina Qualified Code(s): I25.10 - Atherosclerotic heart disease of [place] coronary artery without angina pectoris (6) Cerebrovascular disease: (7) Stage 3b chronic kidney disease (CKD): Plan Found colitis on CT and start cipro and flagyl. Continue Clear liquid diet and IV fluids. Resume home medication including coreg. Aflutter in ER and monitor with telemetry. Will start PT/OT for weakness. Anticipate 1-2 days in the hospital.
--- NOTE | 2023-06-01 14:31 | CM.NOTE ---
PT evaluated pt today, no discharge needs identified. Pt denies other needs at this time.
[2023-06-01 16:15] LABS: Glucometer 96 mg/dL (74-106)
[2023-06-01 20:17] LABS: Glucometer 116 mg/dL (74-106)
[2023-06-02] VITALS (7 sets, daily range): BP systolic 118; BP diastolic 63; PULSE 63–77; RESP 18; TEMP 37.2; O2SAT 94
[2023-06-02] MEDS: METRONIDAZOLE/SODIUM CHLORIDE 500 MG/100 ML PREMIX 100 MG IV ×3 (01:01→11:23)
[2023-06-02] MEDS: LEVOTHYROXINE SODIUM 25 MCG TABLET PO (05:32)
[2023-06-02 05:38] LABS: Basophils Percent Auto 0.3 % (0.2-2.0); Eosinophils Absolute Auto 0.2 10^3/uL (0.0-0.7); Hematocrit 33.1 % (36.0-48.0); Hemoglobin 10.4 g/dL (12.0-16.0); Immature Granulocytes Abs Auto 0.03 10^3/uL (0.00-0.03); Immature Granulocytes Pct Auto 0.3 % (0.0-0.5); Lymphocytes Absolute Auto 2.9 10^3/uL (1.2-3.8); Lymphocytes Percent Auto 25.2 % (20.5-60.0); Mean Corpuscular HGB Conc 31.4 g/dL (29.9-35.2); Mean Corpuscular Hemoglobin 30.8 pg (26.7-34.0); Mean Corpuscular Volume 97.9 fL (81.0-99.0); Mean Platelet Volume 10.3 fL (9.5-13.5); Monocytes Absolute Auto 0.6 10^3/uL (0.3-0.8); Neutrophils Absolute Auto 7.8 10^3/uL (1.4-6.5); Neutrophils Percent Auto 67.2 % (43.0-75.0); Platelet Count 194 10^3/uL (150-450); Red Blood Count 3.38 10^6/uL (4.20-5.40); Red Cell Distribution Width 13.4 % (11.0-15.0); White Blood Count 11.6 10^3/uL (4.0-11.0)
[2023-06-02 06:02] LABS: Alanine Aminotransferase 10 U/L (14-59); Albumin Globulin Ratio 0.7; Albumin Level 2.4 g/dL (3.4-5.0); Alkaline Phosphatase 51 U/L (46-116); Anion Gap 13.3; Aspartate Amino Transferase 12 U/L (15-37); BUN Creatinine Ratio 10.4; Bilirubin Total 0.5 mg/dL (0.2-1.0); Calcium 8.1 mg/dL (8.5-10.1); Carbon Dioxide 21.3 mmol/L (21.0-32.0); Chloride 109 mmol/L (98-107); Estimated GFR (African America 45 (>=60); Estimated GFR (Non-African Ame 38 (>=60); Globulin 3.6 g/dL; Glucose 124 mg/dL (74-106); Potassium 3.6 mmol/L (3.5-5.1); Sodium 140 mmol/L (136-145)
[2023-06-02] MEDS: CIPROFLOXACIN IN 5 % DEXTROSE 400 MG/200 ML PIGGYBACK 200 MG IV (08:35)
[2023-06-02] MEDS: ENOXAPARIN SODIUM 30 MG/0.3 ML SYRINGE SUBQ (08:35)
[2023-06-02] MEDS: CLOPIDOGREL BISULFATE 75 MG TABLET PO (08:36)
[2023-06-02] MEDS: ASPIRIN 81 MG TAB.CHEW PO (08:36)
[2023-06-02] MEDS: CARVEDILOL 3.125 MG TABLET PO (08:36)
[2023-06-02] MEDS: LOSARTAN POTASSIUM 25 MG TABLET PO (09:42)
[2023-06-02 11:17] LABS: Glucometer 160 mg/dL (74-106)
--- NOTE | 2023-06-02 11:18 | PM.DS1 ---
DS: Providers Provider Date of admission: 06/01/23 06:31 Primary care physician: REINALDO ROGEL Consults: 06/01/23 08:54 Physical Therapy Eval and Treat Routine Reason for consultation: Weakness DS: Diagnosis Discharge Diagnosis (1) Colitis: (2) Paroxysmal atrial flutter: (3) Type 2 diabetes mellitus with hyperglycemia: (4) HTN (hypertension): Qualifiers: Hypertension type: primary hypertension Qualified Code(s): I10 - Essential (primary) hypertension (5) CAD (coronary artery disease): Qualifiers: Coronary Disease-Associated Artery/Lesion type: [place] artery [place] vs. transplanted heart: [place] heart Associated angina: without angina Qualified Code(s): I25.10 - Atherosclerotic heart disease of [place] coronary artery without angina pectoris (6) Cerebrovascular disease: (7) Stage 3b chronic kidney disease (CKD): DS: Summary Hospital Course Hospital Course: Reason for admission: See H&P for details. 83 y/o female to ER with nausea, vomiting and diarrhea. Developed diarrhea 2 days prior. Frequent watery stool and diffuse abdominal cramping. Developed severe nausea and dry heaves but no emesis. [place] lightheaded and sweaty and to ER. Afebrile but c/o chills. WBC elevated at 14.8. CT showed colitis. In ER noted abnormal telemetry and brief episodes of atrial flutter. No palpitations and no history of arrhythmia. Admitted for treatment. Hospital course: Started cipro and flagyl. Continued IV fluids and started clear liquid diet. Patient improved on hospital. Minimal pain. Tolerating liquids and advanced to regular. Ambulating well. No further emesis. Still diarrhea with blood but slowing down. Patient reports never had colonoscopy. Discharged home in stable condition. Will continue cipro and flagyl x 14 days. Resume home medication as directed. Follow up with PCP in 1-2 weeks and will need to arrange for outpatient colonoscopy. Time Spent with Patient Time attestation: Total time spent providing and/or coordinating discharge services: Exam Constitutional Vital Signs, click to edit/add: Last Vital Signs Temp 98.9 F 06/02/23 04:47 Pulse 63 06/02/23 10:00 Resp 18 06/02/23 04:47 BP 118/63 06/02/23 04:47 Pulse Ox 94 L 06/02/23 04:47 O2 Del Method Room Air 06/02/23 04:47 Documenting provider has reviewed patient's vital signs: yes Common normals: no apparent distress, oriented x3 and alert HENMT Common normals: normocephalic Eye Common normals: PERRL and EOMs intact bilaterally Respiratory Common normals: normal respiratory effort and clear to auscultation bilaterally Cardio Common normals: regular rate, regular rhythm, no gallops, no murmurs and no rub GI Auscultation: normoactive bowel sounds Palpation: soft and tender (Mild TTP across lower abdomen); no guarding Extremity Common normals: no pedal edema DS: Data Data Completed and Pending Labs on day of discharge: Labs from last 24 hours 06/02/23 06/02/23 06/01/23 11:17 04:22 20:16 WBC 11.6 H RBC 3.38 L Hgb 10.4 L Hct 33.1 L MCV 97.9 MCH 30.8 MCHC 31.4 RDW 13.4 Plt Count 194 MPV 10.3 Neut % (Auto) 67.2 Lymph % (Auto) 25.2 [place] % (Auto) 5.0 Eos % (Auto) 2.0 Baso % (Auto) 0.3 Neut # (Auto) 7.8 H Lymph # (Auto) 2.9 [place] # (Auto) 0.6 Eos # (Auto) 0.2 Baso # (Auto) 0.0 Abs Immat Gran (auto) 0.03 Imm/Tot Granulo (auto) 0.3 Sodium 140 Potassium 3.6 Chloride 109 H Carbon Dioxide 21.3 Anion Gap 13.3 BUN 14.0 Creatinine 1.35 H Est GFR ( Amer) 45 L Est GFR (Non-Af Amer) 38 L BUN/Creatinine Ratio 10.4 Glucose 124 H Calcium 8.1 L Total Bilirubin 0.5 AST 12 L ALT 10 L Alkaline Phosphatase 51 Total Protein 6.0 L Albumin 2.4 L Globulin 3.6 Albumin/Globulin Ratio 0.7 POC Glucose 160 H 116 H 06/01/23 06/01/23 16:15 11:21 WBC RBC Hgb Hct MCV MCH MCHC RDW Plt Count MPV Neut % (Auto) Lymph % (Auto) [place] % (Auto) Eos % (Auto) Baso % (Auto) Neut # (Auto) Lymph # (Auto) [place] # (Auto) Eos # (Auto) Baso # (Auto) Abs Immat Gran (auto) Imm/Tot Granulo (auto) Sodium Potassium Chloride Carbon Dioxide Anion Gap BUN Creatinine Est GFR ( Amer) Est GFR (Non-Af Amer) BUN/Creatinine Ratio Glucose Calcium Total Bilirubin AST ALT Alkaline Phosphatase Total Protein Albumin Globulin Albumin/Globulin Ratio POC Glucose 96 218 H Discharge Plan Discharge Disposition: Home, Self-Care Condition: Good Discharge Medications: New ciprofloxacin HCl 500 mg tablet 500 mg PO BID 14 Days Qty: 28 0RF metronidazole 500 mg tablet 500 mg PO QID 14 Days Qty: 56 0RF Continued carvedilol 3.125 mg tablet 3.125 mg PO BID levothyroxine 25 mcg tablet 25 mcg PO QDAY Patient Comments: only takes sometimes. valsartan 40 mg tablet 20 mg PO QDAY aspirin 81 mg tablet,chewable 81 mg PO DAILY Qty: 30 0RF clopidogrel [Plavix] 75 mg tablet 75 mg PO DAILY Qty: 30 0RF Activity: increase activity as tolerated Diet: advance to your usual diet Patient Instructions: Colitis (ED) Forms: Portal Instructions Follow Up Appointments: Call Dr Rogel office on Sunday to schedule follow up appointment. [phone]
[2023-06-02] MEDS: INSULIN ASPART 300 UNIT/3 ML PEN SUBQ (11:23)
--- NOTE | 2023-06-04 13:05 | CM.DCFOLLOWU ---
Person spoke with: patient How are you feeling? not that great but maybe a little better than the day I left. How is your pain? none Did you understand your discharge instructions? yes Do you have any questions about your discharge instructions? no Were you given any prescriptions at discharge? yes Were you able to get your prescriptions filled? yes Do you understand how to take your medications as ordered? yes Do you have any questions about your follow up appointment and do you plan to keep your follow up appointment? No questions. I got my appointment with Dr. Restrepo scheduled for tomorrow. Is there anything else that you would like to discuss? No thanks. Questions/Comments/Concerns/Other: n/a
== END 2023-06-02 13:10 | disposition home or self-care (01) ==
LOC: ER 06:17 → MS 06:38
PROVIDERS: Admitting Provider Family Medicine; Emergency Provider Emergency Medicine; PCP Family Medicine; Visit Provider Family Medicine
DX: K52.9 Noninfective gastroenteritis and colitis, unspecified (principal); I48.92 Unspecified atrial flutter; E11.65 Type 2 diabetes mellitus with hyperglycemia; I25.10 Atherosclerotic heart disease of native coronary artery without angina pectoris; I12.9 Hypertensive chronic kidney disease with stage 1 through stage 4 chronic kidney disease, or unspecified chronic kidney disease; E11.22 Type 2 diabetes mellitus with diabetic chronic kidney disease; I67.9 Cerebrovascular disease, unspecified; N18.32 Chronic kidney disease, stage 3b; E03.9 Hypothyroidism, unspecified; E78.5 Hyperlipidemia, unspecified; I25.2 Old myocardial infarction; Z79.02 Long term (current) use of antithrombotics/antiplatelets; Z79.899 Other long term (current) drug therapy; Z79.890 Hormone replacement therapy; Z86.73 Personal history of transient ischemic attack (TIA), and cerebral infarction without residual deficits; Z90.49 Acquired absence of other specified parts of digestive tract; Z98.890 Other specified postprocedural states; Z20.822 Contact with and (suspected) exposure to COVID-19
CPT/HCPCS: 36415; 74176; 80053; 81001; 82948; 83605; 83735; 84484; 85025; 87040; 87507; 93005; 96361; 96365; 96366; 96367; 96372; 96375; 96376; 97161; 99285; G0378; J0744; J1650; J1836; J2405

== ENCOUNTER 2023-08-30 16:12 | Emergency (ER) | payer OTHER, SELFPAY ==
[2023-08-30 16:24] VITALS: BP 130/63; PULSE 82; TEMP 36.9; O2SAT 97
[2023-08-30 16:26] VITALS: BP 130/63
--- NOTE | 2023-08-30 16:26 | ECG_ITS ---
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
--- OUTSIDE RECORDS SUMMARY | 2023-08-30 16:31 | XMS_ITS | CCD ---
Author Organization [facility] Care Team Providers Care Superintendent Sales Name Role Phone RIAN ROSS Admitting Unavailable KIRREYES, RIAN Attending Unavailable WIECEK, DR TIM Servin Consulting Unavailable FURLONG, DR JORGE LUIS Garrison Primary Care Unavailable WIECEK, DR TIM Servin Admitting Unavailable WIECEK, DR TIM Servin Attending Unavailable WIECEK, DR TIM Servin Attending Unavailable FURLONG, DR JORGE LUIS Garrison Primary Care Unavailable WIECEK, DR TIM Servin Consulting Unavailable WIECEK, DR TIM Servin Admitting Unavailable SANTA HENDERSON Consulting Unavailable RIC, DR KATHIE Del Castillo Admitting Unavailable KUNS, DR KATHIE Del Castillo Attending Unavailable FURLONG, DR JORGE LUIS Garrison Primary Care Unavailable WEST, DR TENZIN Cortes Consulting Unavailable KUNS, DR KATHIE Del Castillo Consulting Unavailable WIECEK, DR TIM Servin Attending Unavailable FURLONG, DR JORGE LUIS Garrison Primary Care Unavailable WIECEK, DR TIM Servin Admitting Unavailable WEST, DR TENZIN Cortes Consulting Unavailable FURLONG, DR JORGE LUIS Garrison Primary Care Unavailable KUNCHAR, DRAKE Admitting Unavailable KUNTE, DRAKE Attending Unavailable KUNTE, DRAKE Consulting Unavailable MISC, DR BARRETT Admitting Unavailable FURLONG, DR JORGE LUIS Garrison Primary Care Unavailable MISC, DR BARRETT Attending Unavailable MISC, DR BARRETT Consulting Unavailable RIC, DR KATHIE Del Castillo Attending Unavailable KUNS, DR KATHIE Del Castillo Admitting Unavailable FURLONG, DR JORGE LUIS Garrison Primary Care Unavailable WEST, DR TENZIN Cortes Consulting Unavailable RIC, DR KATHIE Del Castillo Consulting Unavailable FurloJorge Luis zapien Primary Care Provider [phone] Jorge Luis Whitehead DO Primary Care Provider Jorge Luis Whitehead DO Primary Care Provider Gabi Gaona Unavailable Alfred DO, Jorge Luis Hodge Primary Care Provider DO Jorge Luis Whitehead Primary Care Provider MD Simin Lama Attending Provider [phone] MATTY ANANDARTH Attending Unavailable KUNTE, DRAKE Referring Unavailable PREMLONG, JORGE LUIS MINDI Primary Care Unavailab le KUNTE, DRAKE Referring Unavailable PREMLONG, JORGE LUIS MINDI Primary Care Unavailab le KARAMLOU, SIMIN Attending Unavailable KUNTE, DRAKE Referring Unavailable PREMLONG, JORGE LUIS MINDI Primary Care Unavailab le Anthonylou, Simin Admitting Unavailable Simin Lama Attending Unavailable Premrupali, Jorge Luis Primary Care Unavailable Anali MELCHOR, Amanda Primary Care Provider Pattie DRAFTER HEATING AND VENTILATING, Linette Unavailable Amanda Briones MD Unavailable Lauro MELCHOR, Jack Devries Primary Care Provider JACK ROGEL Attending Unavailable JACK ROGEL Attending Unavailable JACK ROGEL Attending Unavailable LINETTE BLANKENSHIP Attending Unavailable JACK ROGEL Attending Unavailable ELOISE GALICIA Attending Unavailable JACK ROGEL Primary Care Unavailab ELOISE Villafana Referring Unavailable JACK ROGEL Primary Care Unavailab le Allergies Allergy Classification Reported Allergen(s) Allergy Type Date of Onset Reaction(s) Facility (5 sources) Amino Acids; Translations: [LISINOPRIL] Drug Allergy 04-05-20 21 [facility] Repository (5 sources) Penicillins; Translations: [PENICILLINS] Drug allergy (disorder) 09-21-19 16 Rash [facility] Repository (10 sources) Lisinopril Drug Allergy 04-05-20 21 Unknown, Cough, Other (2 sources) Penicillins Drug Intolerance 04-05-20 21 Other: See Comments (8 sources) Penicillins Drug Intolerance 04-05-20 21 Other: See Comments, Other (5 sources) Amino Acids Drug Allergy 02-01-20 22 Other: See Comments (1 source) Penicillin V Drug Allergy dizziness, LOC [place] Other (1 source) Penicillins Drug allergy (disorder) 06-15-19 [facility] Repository (2 sources) Amino Acids Drug Allergy 02-01-20 Other [facility] Healthcare Work Phone: (2 sources) HMG-CoA reductase inhibitor Propensity to adverse reactions 09-09-19 Other [facility] Healthcare Work Phone: (2 sources) Lisinopril Propensity to adverse reactions 04-05-20 Cough, Other [facility] Healthcare (2 sources) Penicillins Drug Intolerance 04-05-20 21 Other [facility] Healthcare (4 sources) HMG-CoA reductase inhibitor; Translations: [PZEYXGA-KHA-YZ A REDUCTASE INHIBITORS] Drug Intolerance 09-09-19 Other [facility] Work Phone: Medications Current Medications Medication Drug Class(es) Dates Sig (Normalized) Sig (Original) apixaban 5 mg oral tablet (3 sources) Factor Xa Inhibitor Start: 07-02-2023 End: 07-30-2024 take 1 tablet by mouth twice daily apixaban (Eliquis) 5 mg tablet Indications: Paroxysmal atrial fibrillation (Multi) Take 1 tablet (5 mg) by mouth 2 times a day. 180 tablet 3 07/31/2023 07/30/2024 Active aspirin 81 mg chewable tablet (11 sources) Platelet Aggregation Inhibitor, Nonsteroidal Anti-inflammatory Drug Start: 06-14-2018 take 81 mg by mouth once daily Aspirin Active 81 MG PO Daily 0 June 14, 2018 12:00am take 1 tablet by mouth once alessandra y aspirin 81 mg EC tablet Take 1 tablet (81 mg) by mouth once daily. Active aspirin 81 mg ca p aspirin low [...] PO Every evening June 14, 2018 12:00am carvedilol 3.125 mg oral tablet (13 sources) alpha-Adrenergic Leela, beta-Adrenergic Leela Start: 11-21-2022 take 1 tablet by mouth in the morning carvedilol (Coreg) 3.125 MG tablet Indications: Primary hypertension (CMS/HCC) Take 1 tablet (3.125 mg) by mouth in the morning and 1 tablet (3.125 mg) in the evening. Take with meals. 180 tablet 0 11/21/2022 Active Start: 06-18-2018 End: 07-02-2023 take 1 tablet by mouth twice daily at mealtime carvedilol (COREG) 3.125 mg tablet Take 3.125 mg by mouth twice daily with meals. 0 12/22/2020 Active Comment on above: Take 3.125 mg by edna th twice daily with meals. ezetimibe 10 mg oral tablet (2 sources) Dietary Cholesterol Absorption Inhibitor take 1 tablet by mouth in the morning ezetimibe (Zetia) 10 MG tablet Take 10 mg by mouth in the morning. 0 Active levothyroxine sodium 0.025 mg oral tablet (4 sources) l-Thyroxine Start: 03-20-20 End: 06-18-19 24 take 1 tablet by mouth once daily levothyroxine (Synthroid, Levoxyl) 25 mcg tablet Take 1 tablet (25 mcg) by mouth once daily. 03/20/2023 Active lisinopril 2.5 mg oral tablet (1 source) Angiotensin Converting Enzyme Inhibitor Start: 06-15-19 19 take 2.5 mg by mouth once daily Lisinopril Active 2.5 MG PO Daily June 14, 2018 12:00am LOW-DOSE ASPIRIN PO (2 sources) LOW-DOSE ASPIRIN PO Low-Dose Aspirin 0 Active magnesium oxide 400 mg oral tablet (2 sources) Start: 07-02-19 End: 07-02-19 25 take 1 tablet by mouth twice daily magnesium oxide (Mag-Ox) 400 mg tablet Indications: Paroxysmal atrial fibrillation (Multi) , History of SD (myocardial infarction) Take 1 tablet (400 mg) by mouth 2 times a day. 180 tablet 3 07/02/2023 07/01/2024 Active metFORMIN hydrochloride 500 mg oral tablet (1 source) Biguanide Start: 03-01-20 19 take 250 mg by mouth twice daily Metformin Active 250 MG PO Twice daily June 14, 2018 12:00am 24 hr metoprolol succinate 25 mg extended release oral tablet (2 sources) beta-Adrenergic Leela Start: 07-02-19 End: 07-02-19 take 1 tablet by mouth once daily metoprolol succinate XL (Toprol-XL) 25 mg 24 hr tablet Indications: Paroxysmal atrial fibrillation (Multi) , Primary hypertension Take 1 tablet (25 mg) by mouth once daily. Do not crush or chew. 90 tablet 3 07/02/2023 07/01/2024 Active mometasone furoate 1 mg/ml topical cream (4 sources) Corticosteroid mometasone (Eloc on) 0.1 % cream Apply 1 Application topically once daily. Active Multiple Vitamin (MULTIVITAMIN ADULT PO) (2 sources) Multiple Vitamin (MULTIVITAMIN ADULT PO) Multivitamin 0 Active valsartan 40 mg oral tablet (5 sources) Angiotensin 2 Receptor Leela Start: 07-02-19 End: 07-02-19 take 1 tablet by mouth once daily valsartan (Diovan) 40 mg tablet Indications: Primary hypertension Take 1 tablet (40 mg) by mouth once daily. 90 tablet 3 07/02/2023 07/01/2024 Active Start: 04-03-2023 End: 09-30-2023 take 0.5 tablet by mouth in the morning valsartan (Diovan) 40 MG tablet Indications: Primary hypertension (CMS/HCC) Take 0.5 tablets (20 mg) by mouth in the morning. 45 tablet 1 04/03/2023 09/30/2023 Active Completed/Discontinued Medications Medication Drug Class(es) Dates Sig (Normalized) Sig (Original) clopidogrel 75 mg oral tablet (4 sources) P2Y12 Platelet Inhibitor Start: 04-18-2023 End: 10-15-2023 take 1 tablet by mouth once daily clopidogrel (Plavix) 75 mg tablet Take 1 tablet (75 mg) by mouth once daily. 0 04/18/2023 07/02/2023 Discontinued (Therapy completed) Start: 06-18-2018 End: 07-13-2019 take 1 tablet [...] mg / valsartan 26 mg oral tablet (10 sources) Angiotensin 2 Receptor Leela End: 07-02-2023 take 1 tablet by mouth twice daily sacubitriL-valsarta n (Entresto) 24-26 mg tablet Take 1 tablet by mouth 2 times a day. 0 07/02/2023 Discontinued (Therapy completed) Entresto Active Comment on above: Entresto 24 [...] Date Documented Date Episodic/Chronic Acute cerebrovascular disease (12 sources) Ischemic stroke; Translations: [Cerebral infarction due [...] left female breast] Onset: 04-12-2021 04-12-2021 Chronic Cardiac dysrhythmias (5 sources) Paroxysmal atrial fibrillation; Translations: [Paroxysmal atrial fibrillation] Onset: 06-05-2023 07-02-2023 Chronic Chronic kidney disease (4 sources) Chronic kidney disease stage 3B ; Translations: [Chronic kidney disease, stage 3b (HCC) (CMS/HCC)] Onset: 09-08-2022 05-25-2023 Chronic Conduction disorders (1 source) Long QT syndrome; Translations: [Long QT syndrome] 06-15-2018 Chronic Congestive heart failure; nonhypertensive (1 source) Heart failure, unspecified; Translations: [HEART FAILURE UNSPECIFIED] Onset: 03-28-2021 Chronic Coronary atherosclerosis and other heart disease (15 sources) Atherosclerotic heart disease of [place] coronary artery without angina pectoris; Translations: [Old [...] [Dyslipidemia] Onset: 03-28-2021 05-25-2023 Chronic Essential hypertension (10 sources) Hypertensive disorder; Translations: [Essential (primary) hypertension] [...] 05-25-2023 Chronic Other aftercare (1 source) Other terminal clerk (current) drug therapy; Translations: [OTH CARE HOME CURRENT DRUG THERAPY] Onset: 03-28-2021 Episodic Other aftercare (1 source) terminal superintendent (current) use of oral hypoglycemic drugs; Translations: [CARE HOME USE ORAL HYPOGLYCEMIC DX] Onset: 03-28-2021 Episodic Other aftercare (2 sources) Treatment changed; Translations: [Other terminal clerk (current) drug therapy] Onset: 07-02-2023 07-02-2023 Episodic Other and ill-defined heart disease (1 [...] disease, unspecified] Onset: 04-03-2023 05-25-2023 Episodic Other nutritional; endocrine; and metabolic disorders (3 sources) Overweight in adulthood with body mass index of 25 or more but less than 30; Translations: [Body mass index (BMI) 25.0-25.9, adult] Onset: 07-02-2023 07-02-2023 Episodic Other nutritional; endocrine; and metabolic disorders (2 sources) Body mass index (BMI) 25.0-25.9, adult; Translations: [Body mass index (BMI) 25.0-25.9, adult] Onset: 07-02-2023 Episodic Other screening for suspected conditions (not [...] respiratory infection, unspecified Episodic Pulmonary heart disease (6 sources) Pulmonary hypertension, unspecified; Translations: [Other chronic pulmonary heart diseases] Onset: 04-03-2023 05-25-2023 Chronic Residual codes; unclassified (3 sources) Never smoked tobacco; Translations: [Other specified health status] Onset: 07-02-2023 07-02-2023 Episodic Residual codes; unclassified (5 sources) Other specified health status; Translations: [Other drug allergy] Onset: 07-02-2023 07-02-2023 Episodic Screening and history of mental health and [...] [employer] [place]UNK] Onset: 01-24-2021 Episodic Unclassified (2 sources) Onset: 07-02-2023 07-02-2023 Results Test Name Value Interpretation Reference Range Facility TRANSTHORACIC ECHO (TTE) [facility] 08-09-2023 TRANSTHORACIC ECHO (TTE) COMPLETE [address], [place] [address] TRANSTHORACIC ECHOCARDIOGRAM REPORT Patient Name: JOHANNY DICKSONPATSY Shrestha Physician: [id number] Esther Taylor MD Study Date: 08/09/2023 Ordering Provider: [id number] ELOISE GALICIA MRN/PID: [id number] Fellow: Nurse: Date of /Age: 1 1940 / 83 years Tamper Operator: Anna Marie Mckinney RDCS, RVT Gender: F Additional Staff: Height: 160.02 cm Admit Date: Weight: 66.23 kg Admission Status: BSA / BMI: 1.69 m2 / 25.86 kg/m2 Department Location: [facility] Blood Pressure: 134 /88 mmHg Study Type: TRANSTHORACIC ECHO (TTE) COMPLETE Diagnosis/ICD: 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 PHYSICIAN INTERPRETATION: Left Ventricle: Left ventricular systolic function is low normal, with an estimated ejection fraction of 50-55%. There are no regional wall motion abnormalities. The left ventricular cavity size is normal. Spectral Doppler shows an impaired relaxation pattern of left ventricular diastolic filling. Left Atrium: The left atrium is normal in size. Right Ventricle: The right ventricle is normal in size. There is normal right ventricular global systolic function. Right Atrium: The right atrium is normal in size. Aortic Valve: The aortic valve appears structurally normal. There is no evidence of aortic valve regurgitation. The peak instantaneous gradient of the aortic valve is 6.9 mmHg. The mean gradient of the aortic valve is 3.0 mmHg. Mitral Valve: The mitral valve is normal in structure. There is mild mitral valve regurgitation. Tricuspid Valve: The tricuspid valve is structurally normal. There is trace to mild tricuspid regurgitation. The Doppler estimated RVSP is within normal limits at 21.0 mmHg. Pulmonic Valve: The pulmonic valve is structurally normal. There is no indication of pulmonic valve regurgitation. Pericardium: There is no pericardial effusion noted. Aorta: The aortic root is normal. CONCLUSIONS: 1. Left ventricular systolic function is low normal with a 50-55% estimated ejection fraction. 2. Spectral Doppler shows an impaired relaxation pattern of left ventricular diastolic filling. 3. Mild mitral valve regurgitation. 4. RVSP within normal limits. 5. Trace to mild tricuspid regurgitation. 6. When compared to previous study LVEF has improved. QUANTITATIVE DATA SUMMARY: 2D MEASUREMENTS: Normal Ranges: Ao Root d: 3.70 cm (2.0-3.7cm) LAs: 3.30 cm (2.7-4.0cm) RVIDd: 3.04 cm (0.9-3.6cm) IVSd: 1.06 cm (0.6-1.1cm) LVPWd: 0.75 cm (0.6-1.1cm) LVIDd: 3.76 cm (3.9-5.9cm) LVIDs: 2.63 cm LV Mass Index: 59.2 g/m2 LV % FS 30.1 % LV SYSTOLIC FUNCTION BY 2D PLANIMETRY (MOD): Normal Ranges: EF-A4C View: 61.9 % (>=55%) LV DIASTOLIC FUNCTION: Normal Ranges: MV Peak E: 0.65 m/s (0.7-1.2 m/s) MV Peak A: 1.00 m/s (0.42-0.7 m/s) E/A Ratio: 0.65 (1.0-2.2) MV lateral e' 0.07 m/s MV medial e' 0.07 m/s E/e' Ratio: 9.00 (<8.0) MITRAL VALVE: Normal Ranges: MV Vmax: 1.07 m/s (<=1.3m/s) MV peak P.6 mmHg (<5mmHg) MV mean P.0 mmHg (<48mmHg) AORTIC VALVE: Normal Ranges: AoV Vmax: 1.31 m/s (<=1.7m/s) AoV Peak P.9 mmHg (<20mmHg) AoV Mean P.0 mmHg (1.7-11.5mmHg) LVOT Max Lore: 0.65 m/s (<=1.1m/s) AoV VTI: 28.50 cm (18-25cm) LVOT VTI: 15.20 cm LVOT Diameter: 2.20 cm (1.8-2.4cm) AoV Area, VTI: 2.03 cm2 (2.5-5.5cm2) AoV Area,Vmax: 1.88 cm2 (2.5-4.5cm2) AoV Dimensionless Index: 0.53 TRICUSPID VALVE/RVSP: Normal Ranges: Peak TR Velocity: 2.12 m/s RV Syst Pressure: 21.0 mmHg (< 30mmHg) PULMONIC VALVE: Normal Ranges: PV Max Lore: 0.7 m/s (0.6-0.9m/s) PV Max P.8 mmHg PIEDV: 2.05 m/s PADP: 19.8 mmHg [id number] Esther Taylor MD Electronically signed on 08/09/2023 at 6:28:33 PM Final [facility] US Heart TransthoracicOrdere d By: Esther Taylor on 08-09-2023 Aortic Valve Area by Continuity of Peak Velocity 1.88 cm2 [facility] Work Phone: Aortic Valve Area by Continuity of VTI 2.03 cm2 [facility] Work Phone: AV mn grad 3.0 mmHg [facility] Work Phone: AV pk grad 6.9 mmHg [facility] Work Phone: AV pk lore 1.31 m/s [facility] Work Phone: LV A4C EF 61.9 [facility] Work Phone: LVIDd 3.76 cm [facility] Work Phone: LVOT diam 2.20 cm [facility] Work Phone: MV avg E/e' ratio 9.00 [facility] Work Phone: MV E/A ratio 0.65 [facility] Work Phone: RVSP 21.0 mmHg [facility] Work Phone: [facility] Work Phone: Heart Transthoracicon [address], [address] [place] [address] TRANSTHORACIC ECHOCARDIOGRAM REPORT Patient Name: JOHANNY ANDREI Shrestha Physician: [id number] Esther Taylor MD Study Date: 08/09/2023 Ordering Provider: [id number] ELOISE GALICIA MRN/PID: [id number] Fellow: Nurse: Date of /Age: 1 1940 / 83 years Tamper Operator: Anna Marie Mckinney RDCS, RVT Gender: F Additional Staff: Height: 160.02 cm Admit Date: Weight: 66.23 kg Admission Status: BSA / BMI: 1.69 m2 / 25.86 kg/m2 Department Location: [facility] Blood Pressure: 134 /88 mmHg Study Type: TRANSTHORACIC ECHO (TTE) COMPLETE Diagnosis/ICD: 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 PHYSICIAN INTERPRETATION: Left Ventricle: Left ventricular systolic function is low normal, with an estimated ejection fraction of 50-55%. There are no regional wall motion abnormalities. The left ventricular cavity size is normal. Spectral Doppler shows an impaired relaxation pattern of left ventricular diastolic filling. Left Atrium: The left atrium is normal in size. Right Ventricle: The right ventricle is normal in size. There is normal right ventricular global systolic function. Right Atrium: The right atrium is normal in size. Aortic Valve: The aortic valve appears structurally normal. There is no evidence of aortic valve regurgitation. The peak instantaneous gradient of the aortic valve is 6.9 mmHg. The mean gradient of the aortic valve is 3.0 mmHg. Mitral Valve: The mitral valve is normal in structure. There is mild mitral valve regurgitation. Tricuspid Valve: The tricuspid valve is structurally normal. There is trace to mild tricuspid regurgitation. The Doppler estimated RVSP is within normal limits at 21.0 mmHg. Pulmonic Valve: The pulmonic valve is structurally normal. There is no indication of pulmonic valve regurgitation. Pericardium: There is no pericardial effusion noted. Aorta: The aortic root is normal. CONCLUSIONS: 1. Left ventricular systolic function is low normal with a 50-55% estimated ejection fraction. 2. Spectral Doppler shows an impaired relaxation pattern of left ventricular diastolic filling. 3. Mild mitral valve regurgitation. 4. RVSP within normal limits. 5. Trace to mild tricuspid regurgitation. 6. When compared to previous study LVEF has improved. QUANTITATIVE DATA SUMMARY: 2D MEASUREMENTS: Normal Ranges: Ao Root d: 3.70 cm (2.0-3.7cm) LAs: 3.30 cm (2.7-4.0cm) RVIDd: 3.04 cm (0.9-3.6cm) IVSd: 1.06 cm (0.6-1.1cm) LVPWd: 0.75 cm (0.6-1.1cm) LVIDd: 3.76 cm (3.9-5.9cm) LVIDs: 2.63 cm LV Mass Index: 59.2 g/m2 LV % FS 30.1 % LV SYSTOLIC FUNCTION BY 2D PLANIMETRY (MOD): Normal Ranges: EF-A4C View: 61.9 % (>=55%) LV DIASTOLIC FUNCTION: Normal Ranges: MV Peak E: 0.65 m/s (0.7-1.2 m/s) MV Peak A: 1.00 m/s (0.42-0.7 m/s) E/A Ratio: 0.65 (1.0-2.2) MV lateral e' 0.07 m/s MV medial e' 0.07 m/s E/e' Ratio: 9.00 (<8.0) MITRAL VALVE: Normal Ranges: MV Vmax: 1.07 m/s (<=1.3m/s) MV peak P.6 mmHg (<5mmHg) MV mean P.0 mmHg (<48mmHg) AORTIC VALVE: Normal Ranges: AoV Vmax: 1.31 m/s (<=1.7m/s) AoV Peak P.9 mmHg (<20mmHg) AoV Mean P.0 mmHg (1.7-11.5mmHg) LVOT Max Lore: 0.65 m/s (<=1.1m/s) AoV VTI: 28.50 cm (18-25cm) LVOT VTI: 15.20 cm LVOT Diameter: 2.20 cm (1.8-2.4cm) AoV Area, VTI: 2.03 cm2 (2.5-5.5cm2) AoV Area,Vmax: 1.88 cm2 (2.5-4.5cm2) AoV Dimensionless Index: 0.53 TRICUSPID VALVE/RVSP: Normal Ranges: Peak TR Velocity: 2.12 m/s RV Syst Pressure: 21.0 mmHg (< 30mmHg) PULMONIC VALVE: Normal Ranges: PV Max Lore: 0.7 m/s (0.6-0.9m/s) PV Max P.8 mmHg P (more content not included)... Esther Casey MD - 08/09/2023 [facility] [address], [address], [place] [address] TRANSTHORACIC ECHOCARDIOGRAM REPORT Patient Name: JOHANNY FORBES Reading Physician: [id number] Esther Taylor MD Study Date: 08/09/2023 Ordering Provider: [id number] ELOISE GALICIA MRN/PID: [id number] Fellow: Nurse: Date of /Age: 1 1940 / years Tamper Operator: Anna Marie Mckinney RDCS, RVT Gender: F Additional Staff: Height: 160.02 cm Admit Date: Weight: 66.23 kg Admission Status: BSA / BMI: 1.69 m2 / 25.86 kg/m2 Department Location: [facility] Blood Pressure: 134 /88 mmHg Study Type: TRANSTHORACIC ECHO (TTE) COMPLETE Diagnosis/ICD: 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 PHYSICIAN INTERPRETATION: Left Ventricle: Left ventricular systolic function is low normal, with an estimated ejection fraction of 50-55%. There are no regional wall motion abnormalities. The left ventricular cavity size is normal. Spectral Doppler shows an impaired relaxation pattern of left ventricular diastolic filling. Left Atrium: The left atrium is normal in size. Right Ventricle: The right ventricle is normal in size. There is normal right ventricular global systolic function. Right Atrium: The right atrium is normal in size. Aortic Valve: The aortic valve appears structurally normal. There is no evidence of aortic valve regurgitation. The peak instantaneous gradient of the aortic valve is 6.9 mmHg. The mean gradient of the aortic valve is 3.0 mmHg. Mitral Valve: The mitral valve is normal in structure. There is mild mitral valve regurgitation. Tricuspid Valve: The tricuspid valve is structurally normal. There is trace to mild tricuspid regurgitation. The Doppler estimated RVSP is within normal limits at 21.0 mmHg. Pulmonic Valve: The pulmonic valve is structurally normal. There is no indication of pulmonic valve regurgitation. Pericardium: There is no pericardial effusion noted. Aorta: The aortic root is normal. CONCLUSIONS: 1. Left ventricular systolic function is low normal with a 50-55% estimated ejection fraction. 2. Spectral Doppler shows an impaired relaxation pattern of left ventricular diastolic filling. 3. Mild mitral valve regurgitation. 4. RVSP within normal limits. 5. Trace to mild tricuspid regurgitation. 6. When compared to previous study LVEF has improved. QUANTITATIVE DATA SUMMARY: 2D MEASUREMENTS: Normal Ranges: Ao Root d: 3.70 cm (2.0-3.7cm) LAs: 3.30 cm (2.7-4.0cm) RVIDd: 3.04 cm (0.9-3.6cm) IVSd: 1.06 cm (0.6-1.1cm) LVPWd: 0.75 cm (0.6-1.1cm) LVIDd: 3.76 cm (3.9-5.9cm) LVIDs: 2.63 cm LV Mass Index: 59.2 g/m2 LV % FS 30.1 % LV SYSTOLIC FUNCTION BY 2D PLANIMETRY (MOD): Normal Ranges: EF-A4C View: 61.9 % (>=55%) LV DIASTOLIC FUNCTION: Normal Ranges: MV Peak E: 0.65 m/s (0.7-1.2 m/s) MV Peak A: 1.00 m/s (0.42-0.7 m/s) E/A Ratio: 0.65 (1.0-2.2) MV lateral e' 0.07 m/s MV medial e' 0.07 m/s E/e' Ratio: 9.00 (<8.0) MITRAL VALVE: Normal Ranges: MV Vmax: 1.07 m/s (<=1.3m/s) MV peak P.6 mmHg (<5mmHg) MV mean P.0 mmHg (<48mmHg) AORTIC VALVE: Normal Ranges: AoV Vmax: 1.31 m/s (<=1.7m/s) AoV Peak P.9 mmHg (<20mmHg) AoV Mean P.0 mmHg (1.7-11.5mmHg) LVOT Max Lore: 0.65 m/s (<=1.1m/s) AoV VTI: 28.50 cm (18-25cm) LVOT VTI: 15.20 cm LVOT Diameter: 2.20 cm (1.8-2.4cm) AoV Area, VTI: 2.03 cm2 (2.5-5.5cm2) AoV Area,Vmax: 1.88 cm2 (2.5-4.5cm2) AoV Dimensionless Index: 0.53 TRICUSPID VALVE/RVSP: Normal Ranges: Peak TR Velocity: 2.12 m/s RV Syst Pressure: 21.0 mmHg (< 30mmHg) PULMONIC VALVE: Normal Ranges: PV Max Lore: 0.7 m/s (0.6-0.9m/s) PV Max P.8 mmHg PIEDV: 2.05 m/s PADP: 19.8 mmHg [id number] Esther Taylor MD Electronically signed on 08/09/2023 at 6:28:33 PM Final [facility] Work Phone: ECG 12 Leadon 07-07-2023 EKG today shows norm al sinus rhythm at 80 bpm MA interval 154 ms QRS duration 104 ms QTc 449 ms minimal voltage criteria for left ventricular hypertrophy pattern of septal myocardial infarction [facility] Work Phone: Aniket 05-15-2022 CNPN Telephone (NCCAP) JOHANNY FORBES ([id number]) 1940 F Date Time Provider Department 05/15/22 SIMIN LAMA During your visit today, we recorded the following information about you: Honey Tucker 05/15/2022 1:42 PM Signed Patient is currently at [facility] for her Mammogram. Chrissie is calling to request a new order. 1) Diagnostic Bilateral Mammogram 2) US order (that way they have it if needed) Jyothi: If in agreement, can you please place order PERLITA and I will fax back to her? Thanks! Chrissie: Ph. [phone] Fax. [phone] Honey Lama MD 05/15/2022 2:11 PM Signed [...] left (HCC) [C50.912, C77.3] Order(s):DANIELLE DIAGNOSTIC BILAT [[id number]] Order #: [id number] FUTURE [employer] BRE[employer] LT [[id number]] Order #: [id number] FUTURE [employer] BREAST [employer] RT [[id number]] Order #: [id number] FUTURE Prescriptions as of 05/15/2022 - aspirin [...] Encounter Status:Closed by HONEY TUCKER on 05/15/22 Normal [facility] CNPN Telephone (HEMASA) JOHANNY FORBES ([id number]) 1940 F Date Time Provider Department 05/15/22 RU THOMAS During your visit today, we recorded the following information about you: Ru Thomas RN 05/15/2022 2:19 PM Signed Received call from pt stating she is at [facility] and needs mammogram [...] Encounter Status:Closed by RU THOMAS on 05/15/22 [facility] MM diagnostic mammo BI w/CAD on 05-15-2022 MM diagnostic mammo BI w/CAD [facility] [place] [address] Mammography Report Signed Patient: Johanny Forbes MR#: [id number] : 1940 Acct:[id number] Age/Sex: 82 / F ADM Date: 05/15/22 Loc: [place] Room: Type: [facility] Attending Dr: Simin Lama MD Copies [...] Aguayo Jr., D.O.05/15/2022 2:50 PM Dictation Location: [facility] Transcribed By: GABRIEL 05/15/22 1450 Dictated By: Jaycob Aguayo Jr, DO 05/15/22 1445 Signed By: 05/15/22 1450 [facility] COVID/FLU RT-PCRon 2 SARS-CoV-2 (COVID-19) RNA DEIDRE+probe Ql (Unsp spec) Negative [facility] Other COVID/FLU RT-PCR Negative [facility] [employer] Other CNPKenia 02-13-2022 CNPN Telephone (HEMTSA) JOHANNY FORBES ([id number]) 1940 F Date Time Provider Department 02/13/22 SHIVA REYES During your visit today, we recorded the following information about you: Shvia Reyes RN 02/13/2022 2:30 PM Signed Pt [...] Encounter Status:Closed by SHIVA REYES on 02/13/22 [facility] CNOVSPon 01-31-2022 CNOVSP Visit (SP) Office (HEMASA) JOHANNY FORBES ([id number]) 1940 F Date Time Provider Department 01/31/22 3:15 PM SIMIN LAMA During your visit today, we recorded the following information about you: Temperature Pulse Respiration Blood pressure 97.3 degrees 62/minute 16/minute 142/65 Weight Height 70 kg 1.589 m Simin Lama MD 01/31/2022 3:38 PM Signed PATIENT NAME: Johanny Forbes CLINIC NO.: [id number] ATTENDING PHYSICIAN: Simin Lama MD DATE OF [...] metastatic breast carcinoma, 5 cm, ER 0, MA 0, HER-2 0 by IHC. The tissue was not evaluated for flow cytometry to rule out a lymphoproliferative process. 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 Differential included mammary, skin, urothelial, pancreaticobiliary and pulmonary primaries. ER 0, MA 0, HER-2 negative by CAMERON. 2021 PET [...] Rectal: Deferred (more content not included)... Normal [facility] CNPNon 01-31-2022 [facility] Telephone (NCCAP) JOHANNY FORBES ([id number]) 1940 F Date Time Provider Department 01/31/22 [facility] During your visit today, we recorded the following information about you: Honey Tucker 01/31/2022 4:[address] Lama, patient had a previous abnormal L Mammogram and never followed up. He would like L Mammogram completed now. Faxed order to [facility] scheduling per patient's hospital request. Honey Juan Pablo Allergies As of Date: 01/31/2022 Noted Allergy [...] Encounter Status:Closed by HONEY TUCKER on 02/01/22 Normal [facility] CNPKenia 01-30-2022 CNPN Telephone (HEMTSA) JOHANNY FORBES ([id number]) 1940 F Date Time Provider Department 01/30/22 [...] Fully Assessed Reason for Visit: Patient Question [1477] Prescriptions as of 01/30/2022 - aspirin 82 [...] Status:Closed by AMANDA HENDERSON on 01/30/22 Normal [facility] ALBUMIN, RANDOM URINE W/CREA Corrine 12-09-2021 ALBUMIN, URINE 1.7 mg/dL Normal See Note: [facility] Comment on above: Result Comment: Refe rence Range: Reference Range Not established Performed By: #### 7 18, 622, 496, 74697, 97360, 66806, 6399, 7600, 905, 6517 #### [facility] [address], [address] [place], [place] [address] President Financial Institution: César Dunn MD ALBUMIN/CREATININE RATIO, RANDOM URINE [...] Performed By: #### 7 18, 622, 496, 55969, 26323, 22853, 6399, 7600, 905, 6517 #### [facility] [address], [address] [place] [phone] [employer]: César Dunn MD Creatinine (U) [Mass/Vol] 74 mg/dL Normal 20-275 [facility] Comment on above: Performed By: #### 7 18, 622, 496, 51411, 20235, 58656, 6399, 7600, 905, 6517 #### [facility] [place] [address] President Financial Institution: César Dunn MD CBC (INCLUDES DIFF/PLT)on Basophils (Bld) [#/Vol] 0.044 10*3/uL Normal 0-200 [facility] Comment on above: Performed By: #### 7 18, 622, 496, 79532, 08422, 92103, 6399, 7600, 905, 6517 #### [facility] [place] [address] [employer]: César Dunn MD Basophils/100 WBC (Bld) 0.5 % Normal [facility] Comment on above: Performed By: #### 7 18, 622, 496, 21715, 08450, 30681, 6399, 7600, 905, 6517 #### [facility] [place] [address] President [employer]: César Dunn MD Eosinophils (Bld) [#/Vol] 0.29 10*3/uL Normal 15-500 [facility] Comment on above: Performed By: #### 7 18, 622, 496, 06373, 04351, 29406, 6399, 7600, 905, 6517 #### [facility] [place] [address] [employer]: César Dunn MD Eosinophils/100 WBC (Bld) 3.3 % Normal [facility] Comment on above: Performed By: #### 7 18, 622, 496, 42991, 21575, 40405, 6399, 7600, 905, 6517 #### [facility] [place] [address] [employer]: César Dunn MD Erythrocyte distribution width (RBC) [Ratio] 12.6 % Normal 11.0-15.0 [facility] Comment on above: Performed By: #### 7 18, 622, 496, 42191, 22408, 44881, 6399, 7600, 905, 6517 #### [facility] [place] [address] [employer]: César Dunn MD Hematocrit (Bld) [Volume fraction] 36.3 % Normal 35.0-45.0 [facility] Comment on above: Performed By: #### 7 18, 622, 496, 82344, 68679, 00114, 6399, 7600, 905, 6517 #### [facility] [place] [address] [employer]: César Dunn MD Hemoglobin (Bld) [Mass/Vol] 12.4 g/dL Normal 11.7-15.5 [facility] Comment on above: Performed By: #### 7 18, 622, 496, 83619, 16353, 17396, 6399, 7600, 905, 6517 #### [facility] [place] [address] [employer]: César Dunn MD Lymphocytes (Bld) [#/Vol] 3.08 10*3/uL Normal 850-3900 [facility] Comment on above: Performed By: #### 7 18, 622, 496, 63127, 06201, 55769, 6399, 7600, 905, 6517 #### [facility] [place] [address] [employer]: César Dunn MD Lymphocytes/100 WBC (Bld) 35.0 % Normal [facility] Comment on above: Performed By: #### 7 18, 622, 496, 68561, 00522, 46421, 6399, 7600, 905, 6517 #### [facility] [place] [address] [employer]: César Dunn MD MCH (RBC) [Entitic mass] 30.7 pg Normal 27.0-33.0 [facility] Comment on above: Performed By: #### 7 18, 622, 496, 14874, 82680, 66303, 6399, 7600, 905, 6517 #### [facility] [place] [address] [employer]: César Dunn MD MCHC (RBC) [Mass/Vol] 34.2 g/dL Normal 32.0-36.[address] [facility] Comment on above: Performed By: #### 7 18, 622, 496, 84604, 75962, 61027, 6399, 7600, 905, 6517 #### [facility] [place] [address] [employer]: César Dunn MD MCV (RBC) [Entitic vol] 89.9 fL Normal 80.0-100.0 [facility] Comment on above: Performed By: #### 7 18, 622, 496, 75838, 11343, 99773, 6399, 7600, 905, 6517 #### [facility] [place] [address] [employer]: César Dunn MD Monocytes (Bld) [#/Vol] 0.37 10*3/uL Normal 200-950 [facility] Comment on above: Performed By: #### 7 18, 622, 496, 95793, 10441, 09427, 6399, 7600, 905, 6517 #### [facility] [place] [address] [employer]: César Dunn MD Monocytes/100 WBC (Bld) 4.2 % Normal [facility] Comment on above: Performed By: #### 7 18, 622, 496, 94588, 62874, 24164, 6399, 7600, 905, 6517 #### [facility] [place] [address] [employer]: César Dunn MD Neutrophils (Bld) [#/Vol] 5.016 10*3/uL Normal 3026-1155 [facility] Comment on above: Performed By: #### 7 18, 622, 496, 92096, 70988, 58368, 6399, 7600, 905, 6517 #### [facility] of [address], [address] [place] [address] President Financial Institution: César Dunn MD Neutrophils/100 WBC (Bld) 57 % Normal [facility] Comment on above: Performed By: #### 7 18, 622, 496, 02954, 30204, 72452, 6399, 7600, 905, 6517 #### [facility] [place] [address] [employer]: César Dunn MD Platelet mean volume (Bld) [Entitic vol] 10.6 fL Normal 7.5-12.5 [facility] Comment on above: Performed By: #### 7 18, 622, 496, 77282, 53653, 38791, 6399, 7600, 905, 6517 #### [facility] of [address], [address] [place] [address] President Financial Institution: César Dunn MD Platelets (Bld) [#/Vol] 278 10*3/uL Normal 140-400 [facility] Comment on above: Performed By: #### 7 18, 622, 496, 58550, 49785, 92861, 6399, 7600, 905, 6517 #### [facility] of [address], [address] [place] [address] President Financial Institution: César Dunn MD RBC (Bld) [#/Vol] 4.04 10*6/uL Normal 3.80-5.10 [facility] Comment on above: Performed By: #### 7 18, 622, 496, 90150, 93823, 08978, 6399, 7600, 905, 6517 #### [facility] of [address], [address] [place] [address] President Financial Institution: César Dunn MD WBC (Bld) [#/Vol] 8.8 10*3/uL Normal 3.8-10.8 [facility] Comment on above: Performed By: #### 7 18, 622, 496, 05207, 30174, 76382, 6399, 7600, 905, 6517 #### [facility] [place] [address] President Financial Institution: César Dunn MD [facility] 12-09-2021 Albumin [Mass/Vol] 4.3 g/dL Normal 3.6-5.1 [facility] Comment on above: Performed By: #### 7 18, 622, 496, 16914, 88751, 01393, 6399, 7600, 905, 6517 #### [facility] [place] [address] [employer]: César Dunn MD Albumin/Globulin [Mass ratio] 1.4 {ratio} Normal 1.0-2.5 [facility] Comment on above: Performed By: #### 7 18, 622, 496, 20140, 69878, 64390, 6399, 7600, 905, 6517 #### [facility] [place] [address] [employer]: César Dunn MD ALP [Catalytic activity/Vol] 66 U/L Normal 37-153 [facility] Comment on above: Performed By: #### 7 18, 622, 496, 86309, 07700, 51957, 6399, 7600, 905, 6517 #### [facility] [place] [address] [employer]: César Dunn MD ALT [Catalytic activity/Vol] 8 U/L Normal 6-29 [facility] Comment on above: Performed By: #### 7 18, 622, 496, 66720, 74394, 56849, 6399, 7600, 905, 6517 #### [facility] [place] [address] [employer]: César Dunn MD AST [Catalytic activity/Vol] 16 U/L Normal 10-35 [facility] Comment on above: Performed By: #### 7 18, 622, 496, 65265, 04640, 54798, 6399, 7600, 905, 6517 #### [facility] [place] [address] [employer]: César Dunn MD Bilirubin [Mass/Vol] 0.6 mg/dL Normal 0.2-1.2 [facility] Comment on above: Performed By: #### 7 18, 622, 496, 01514, 45178, 12900, 6399, 7600, 905, 6517 #### [facility] [place] [address] [employer]: César Dunn MD Calcium [Mass/Vol] 9.6 mg/dL Normal 8.6-10.4 [facility] Comment on above: Performed By: #### 7 18, 622, 496, 79166, 87316, 40564, 6399, 7600, 905, 6517 #### [facility] [place] [address] [employer]: César Dunn MD Chloride [Moles/Vol] 108 mmol/L Normal 98-110 [facility] Comment on above: Performed By: #### 7 18, 622, 496, 55079, 21235, 65184, 6399, 7600, 905, 6517 #### [facility] [place] [address] [employer]: César Dunn MD CO2 [Moles/Vol] 25 mmol/L Normal 20-32 [facility] Comment on above: Performed By: #### 7 18, 622, 496, 56967, 83500, 45208, 6399, 7600, 905, 6517 #### [facility] [place] [address] [employer]: César Dunn MD Creatinine [Mass/Vol] 1.37 mg/dL High 0.60-0.[address] [facility] Comment on above: Performed By: #### 7 18, 622, 496, 89707, 23174, 03396, 6399, 7600, 905, 6517 #### [facility] [address], [address] [place] [address] President Financial Institution: César Dunn MD GFR/1.73 sq M.predicted among non-blacks MDRD (S/P/Bld) [Vol rate/Area] 39 mL/min/{1.73_m2} Low > OR = 60 [facility] Comment on above: Result Comment: The eGFR is based on the CKD-EPI 2020 equation. To calculate the new eGFR from a previous Creatinine or Cystatin C result, go to https://www.kidney.org/professionals/ kdoqi/gfr%5Fcalculator Performed By: #### 7 18, 622, 496, 18084, 99027, 59682, 6399, 7600, 905, 6517 #### [facility] [address], [address] [place] [address] [employer]: César Dunn MD Globulin (S) [Mass/Vol] 3.1 g/dL Normal 1.9-3.7 [facility] Comment on above: Performed By: #### 7 18, 622, 496, 95898, 67113, 98645, 6399, 7600, 905, 6517 #### [facility] [address], [address] [place] [address] President Financial Institution: César Dunn MD Glucose [Mass/Vol] 121 mg/dL High 65-99 [facility] Comment on above: Result Comment: Fasting reference interval For someone without known diabetes, a glucose value between 100 and 125 mg/dL is consistent with prediabetes and should be confirmed with a follow-up test. Performed By: #### 7 18, 622, 496, 08826, 14520, 62588, 6399, 7600, 905, 6517 #### [facility] [address], [address] [place] [address] President Financial [employer]: César Dunn MD Potassium [Moles/Vol] 4.6 mmol/L Normal 3.5-5.[address] [facility] [address] [facility] Comment on above: Performed By: #### 7 18, 622, 496, 79708, 19771, 36906, 6399, 7600, 905, 6517 #### [facility] [place] [address] [employer]: Céasr Dunn MD Protein [Mass/Vol] 7.4 g/dL Normal 6.1-8.1 [facility] Comment on above: Performed By: #### 7 18, 622, 496, 78950, 81875, 49082, 6399, 7600, 905, 6517 #### [facility] [place] [address] [employer]: César Dunn MD Sodium [Moles/Vol] 139 mmol/L Normal 135-146 [facility] Comment on above: Performed By: #### 7 18, 622, 496, 63215, 40565, 45318, 6399, 7600, 905, 6517 #### [facility] [place] [address] [employer]: César Dunn MD Urea nitrogen [Mass/Vol] 22 mg/dL Normal 7-25 [facility] Comment on above: Performed By: #### 7 18, 622, 496, 02267, 14431, 97412, 6399, 7600, 905, 6517 #### [facility] [place] [address] [employer]: César Dunn MD Urea nitrogen/Creatinine [Mass ratio] 16 mg/mg Normal 6-22 [facility] Comment on above: Performed By: #### 7 18, 622, 496, 74465, 95907, 23786, 6399, 7600, 905, 6517 #### [facility] [place] [address] [employer] Institution: César Dunn MD HEMOGLOBIN A1con 12-09-2021 HEMOGLOBIN [...] Performed By: #### 7 18, 622, 496, 32958, 79998, 16070, 6399, 7600, 905, 6517 #### [facility] [place] [address] [employer]: César Dunn MD LIPID PANEL, [facility] 11-15 Cholesterol [Mass/Vol] 260 mg/dL High <200 [facility] Comment on above: Order Comment: FASTI NG:YES FASTING: YES Performed By: #### 7 18, 622, 496, 55839, 29796, 57493, 6399, 7600, 905, 6517 #### [facility] [place] [address] [employer]: César Dunn MD Cholesterol in HDL [Mass/Vol] 38 mg/dL Low > OR = 50 [facility] Comment on above: Order Comment: FASTI NG:YES FASTING: YES Performed By: #### 7 18, 622, 496, 42074, 29861, 46426, 6399, 7600, 905, 6517 #### [facility] [address], [address] [place] [address] President Financial Institution: César Dunn MD Cholesterol in LDL [Mass/Vol] [...] LDL-C. Tim HUMPHRIES et al. GENA. 2013;310(19): 5585-4474 (http://education.Equiom/faq/OLC239) Performed By: #### 7 18, 622, 496, 94745, 34616, 69855, 6399, 7600, 905, 6517 #### [facility] [address], [address] [place], [place] [address] President Financial Institution: César Dunn MD Cholesterol.total/Chol esterol in HDL [Mass ratio] 6.8 {ratio} High <5.0 [facility] Comment on above: Order Comment: FASTI NG:YES FASTING: YES Performed By: #### 7 18, 622, 496, 94445, 90464, 63558, 6399, 7600, 905, 6517 #### [facility] [address], [address] [place], [place] [address] President Financial Institution: César Dunn MD NON HDL CHOLESTEROL 222 [...] Performed By: #### 7 18, 622, 496, 33749, 24276, 14059, 6399, 7600, 905, 6517 #### [facility] [address], [address] [place] [address] President [employer] Institution: César Dunn MD Triglyceride [Mass/Vol] 162 mg/dL High <150 [facility] Comment on above: Order Comment: FASTI NG:YES FASTING: YES Performed By: #### 7 18, 622, 496, 84193, 57294, 04560, 6399, 7600, 905, 6517 #### [facility] [place] [address] [employer]: César Dunn MD MAGNESIUMon 12-09-2021 Magnesium [Mass/Vol] 2.1 mg/dL Normal 1.5-2.5 [facility] Comment on above: Performed By: #### 7 18, 622, 496, 90061, 87418, 22398, 6399, 7600, 905, 6517 #### [facility] [place] [address] President Financial Institution: César Dunn MD PHOSPHATE ( PHOSPHORUS)on 12-09-2021 Phosphate [Mass/Vol] 3.6 mg/dL Normal 2.1-4.3 [facility] Comment on above: Performed By: #### 7 18, 622, 496, 77435, 66839, 24461, 6399, 7600, 905, 6517 #### [facility] [place] [address] [employer]: César Dunn MD PTH, INTACT WITHOUT CALCIUMo [...] Performed By: #### 7 18, 622, 496, 98427, 99881, 08505, 6399, 7600, 905, 6517 #### [facility] [place] [address] [employer]: César Dunn MD URIC ACIDon 12-09-2021 Urate [Mass/Vol] 5.1 mg/dL Normal 2.5-7.0 [facility] Comment on above: Result Comment: Ther apeutic target for gout patients: <6.0 mg/dL Performed By: #### 7 18, 622, 496, 44871, 65264, 84090, 6399, 7600, 905, 6517 #### [facility] [address], [address] [place] [phone] [employer]: César Dunn MD VITAMIN D,25-OH,TOTAL,IAon 0 12-09-2021 [...] D, (D2,D3), LC/MS/MS is recommended: order code 92909 (patients >2yrs). See Note 1 Note 1 For additional information, please refer to http://education.Microventures.Altruja/faq/JUH721 (This link is being provided for informational/ educational purposes only.) Performed By: #### 7 18, 622, 496, 97539, 67682, 86779, 6399, 7600, 905, 6517 #### [facility] [address], [address] [place] [phone] [employer]: César Dunn MD CNCOon 11-07-2021 CNCO Letter Text Normal [facility] CBC W Auto Differential pane l (Bld)on 07-28-2021 Basophils (Bld) [#/Vol] 0.03 10*3/uL Normal <0.11 [facility] Comment on above: Order Comment: Speci men Type: BLOOD SPECIMENOrdering Facility: [facility] Address: [address] [place] [address] Performed By: #### 5 7021-8 ####[facility] [id number] [place] [address] Basophils/100 WBC (Bld) 0.4 % Normal [facility] Comment on above: Order Comment: Speci men Type: BLOOD SPECIMENOrdering Facility: [facility] Address: [address] [place] [address] Performed By: #### 5 7021-8 ####[facility] [id number] [place] [address] Differential cell count method Nom (Bld) Auto Normal [facility] Comment on above: Order Comment: Speci men Type: BLOOD SPECIMENOrdering Facility: [facility] Address: [address] [place] [address] Performed By: #### 5 7021-8 ####[facility] [id number] [place] [address] Eosinophils (Bld) [#/Vol] 0.29 10*3/uL Normal <0.46 [facility] Comment on above: Order Comment: Speci men Type: BLOOD SPECIMENOrdering Facility: [facility] Address: [address] [place] [address] Performed By: #### 5 7021-8 ####[facility] [id number] [place] [address] Eosinophils/100 WBC (Bld) 3.7 % Normal [facility] Comment on above: Order Comment: Speci men Type: BLOOD SPECIMENOrdering Facility: [facility] Address: [address] [place] [address] Performed By: #### 5 7021-8 ####[facility] [id number] [place] [address] Erythrocyte distribution width (RBC) [Ratio] 13.2 % Normal 11.5-15.0 [facility] Comment on above: Order Comment: Speci men Type: BLOOD SPECIMENOrdering Facility: [facility] Address: [address] [place] [address] Performed By: #### 5 7021-8 ####[facility] [id number] [place] [address] Hematocrit (Bld) [Volume fraction] 37.6 % Normal 36.0-46.0 [facility] Comment on above: Order Comment: Speci men Type: BLOOD SPECIMENOrdering Facility: [facility] Address: [address] [place] [address] Performed By: #### 5 7021-8 ####[facility] [id number] [place] [address] Hemoglobin (Bld) [Mass/Vol] 12.1 g/dL Normal 11.5-15.5 [facility] Comment on above: Order Comment: Speci men Type: BLOOD SPECIMENOrdering Facility: [facility] Address: [address] [place] [address] Performed By: #### 5 7021-8 ####[facility] [id number] [place] [address] IMMATURE GRAN % 0.3 % Normal [facility] Comment on above: Order Comment: Speci men Type: BLOOD SPECIMENOrdering Facility: [facility] Address: [address] [place] [address] Performed By: #### 5 7021-8 ####[facility] [id number] [place] [address] IMMATURE GRAN ABS <0.03 Normal <0.10 [facility] Comment on above: Order Comment: Speci men Type: BLOOD SPECIMENOrdering Facility: [facility] Address: [address] [place] [address] Performed By: #### 5 7021-8 ####[facility] LABIA [id number] [place] [address] Lymphocytes (Bld) [#/Vol] 3.28 10*3/uL Normal 1.00-4.00 [facility] Comment on above: Order Comment: Speci men Type: BLOOD SPECIMENOrdering Facility: [facility] Address: [address] [place] [address] Performed By: #### 5 7021-8 ####[facility] LABCLIA [id number] [place] [address] Lymphocytes/100 WBC (Bld) 41.8 % Normal [facility] Comment on above: Order Comment: Speci men Type: BLOOD SPECIMENOrdering Facility: [facility] Address: [address] [place] [address] Performed By: #### 5 7021-8 ####[facility] LABCLIA [id number] [place] [address] MCH (RBC) [Entitic mass] 30.0 pg Normal 26.0-34.0 [facility] Comment on above: Order Comment: Speci men Type: BLOOD SPECIMENOrdering Facility: [facility] Address: [address] [place] [address] Performed By: #### 5 7021-8 ####[facility] LABCLIA [id number] [place] [address] MCHC (RBC) [Mass/Vol] 32.2 g/dL Normal 30.5-36.0 [facility] Comment on above: Order Comment: Speci men Type: BLOOD SPECIMENOrdering Facility: [facility] Address: [address] [place] [address] Performed By: #### 5 7021-8 ####[facility] LABIA [id number] [place] [address] MCV (RBC) [Entitic vol] 93.3 fL Normal 80.0-100.0 [facility] Comment on above: Order Comment: Speci men Type: BLOOD SPECIMENOrdering Facility: [facility] Address: [address] [place] [address] Performed By: #### 5 7021-8 ####[facility] LABCLIA [id number] [place] [address] Monocytes (Bld) [#/Vol] 0.46 10*3/uL Normal <0.87 [facility] Comment on above: Order Comment: Speci men Type: BLOOD SPECIMENOrdering Facility: [facility] Address: [address] [place] [address] Performed By: #### 5 7021-8 ####[facility] LABCLIA [id number] [place] [address] Monocytes/100 WBC (Bld) 5.9 % Normal [facility] Comment on above: Order Comment: Speci men Type: BLOOD SPECIMENOrdering Facility: [facility] Address: [address] [place] [address] Performed By: #### 5 7021-8 ####[facility] LABCLIA [id number] [place] [address] Neutrophils (Bld) [#/Vol] 3.77 10*3/uL Normal 1.45-7.50 [facility] Comment on above: Order Comment: Speci men Type: BLOOD SPECIMENOrdering Facility: [facility] Address: [address] [place] [address] Performed By: #### 5 7021-8 ####[facility] LABCLIA [id number] [place] [address] Neutrophils/100 WBC (Bld) 47.9 % Normal [facility] Comment on above: Order Comment: Speci men Type: BLOOD SPECIMENOrdering Facility: [facility] Address: [address] [place] [address] Performed By: #### 5 7021-8 ####[facility] LABCLIA [id number] [place] [address] Nucleated RBC (Bld) [#/Vol] 10*3/uL Normal <0.01 [facility] Comment on above: Order Comment: Speci men Type: BLOOD SPECIMENOrdering Facility: [facility] Address: [address] [place] [address] Performed By: #### 5 7021-8 ####[facility] LABCLIA [id number] [place] [address] Nucleated RBC/100 WBC (Bld) [Ratio] 0.0 /100 WBC Normal [facility] Comment on above: Order Comment: Speci men Type: BLOOD SPECIMENOrdering Facility: [facility] Address: [address] [place] [address] Performed By: #### 5 7021-8 ####[facility] LABIA [id number] [place] [address] Platelet mean volume (Bld) [Entitic vol] 10.6 fL Normal 9.0-12.7 [facility] Comment on above: Order Comment: Speci men Type: BLOOD SPECIMENOrdering Facility: [facility] Address: [address] [place] [address] Performed By: #### 5 7021-8 ####[facility] LABCLIA [id number] [place] [address] Platelets (Bld) [#/Vol] 259 10*3/uL Normal 150-400 [facility] Comment on above: Order Comment: Speci men Type: BLOOD SPECIMENOrdering Facility: [facility] Address: [address] [place], [place] [address] Performed By: #### 5 7021-8 ####[facility] LABIA [id number] [place] [address] RBC (Bld) [#/Vol] 4.03 10*6/uL Normal 3.90-5.20 [facility] Comment on above: Order Comment: Speci men Type: BLOOD SPECIMENOrdering Facility: [facility] Address: [address] [place], [place] [address] Performed By: #### 5 7021-8 ####[facility] LABCLIA [id number] [place] [address] WBC (Bld) [#/Vol] 7.85 10*3/uL Normal 3.70-11.00 [facility] Comment on above: Order Comment: Speci men Type: BLOOD SPECIMENOrdering Facility: [facility] Address: [address] [place], [place] [id number] Performed By: #### 5 7021-8 ####[facility] LABCLIA [id number] [place] [address] Abs Immature Gran <0.03 <0.10 k/uL [facility] Basophils (Bld) [#/Vol] 0.03 10*3/uL <0.11 k/uL Basophils/100 WBC (Bld) 0.4 % Differential cell count method Nom (Bld) Auto Eosinophils (Bld) [#/Vol] 0.29 10*3/uL <0.46 k/uL Eosinophils/100 WBC (Bld) 3.7 % Erythrocyte distribution width (RBC) [Ratio] 13.2 % 11.5 - 15.0 % Hematocrit (Bld) [Volume fraction] 37.6 % 36.0 - 46.0 % Hemoglobin (Bld) [Mass/Vol] 12.1 g/dL 11.5 - 15.5 g/dL Immature Gran % 0.3 % Lymphocytes (Bld) [#/Vol] 3.28 10*3/uL 1.00 - 4.00 k/uL Lymphocytes/100 WBC (Bld) 41.8 % MCH (RBC) [Entitic mass] 30.0 pg 26.0 - 34.0 pg MCHC (RBC) [Mass/Vol] 32.2 g/dL 30.5 - 36.0 g/dL MCV (RBC) [Entitic vol] 93.3 fL 80.0 - 100.0 fL Monocytes (Bld) [#/Vol] 0.46 10*3/uL <0.87 k/uL [facility] Monocytes/100 WBC (Bld) 5.9 % [facility] Neutrophils (Bld) [#/Vol] 3.77 10*3/uL 1.45 - 7.50 k/uL [facility] Neutrophils/100 WBC (Bld) 47.9 % Nucleated RBC (Bld) [#/Vol] 10*3/uL <0.01 k/uL [facility] Nucleated RBC/100 WBC (Bld) [Ratio] 0.0 /100 WBC Platelet mean volume (Bld) [Entitic vol] 10.6 fL 9.0 - 12.7 fL Platelets (Bld) [#/Vol] 259 10*3/uL 150 - 400 k/uL RBC (Bld) [#/Vol] 4.03 10*6/uL 3.90 - 5.2 0 m/uL WBC (Bld) [#/Vol] 7.85 10*3/uL 3.70 - 11.00 k/uL CNOVSPon 07-28-2021 CNOVSP Visit (SP) Office (HEMASA) JOHANNY FORBES ([id number]) 1940 F Date Time Provider Department 07/28/21 [...] in patient's care: Jorge Luis Whitehead (PCP), Campbell Marrero DIAGNOSIS: Axillary cancer of unknown primary ONCOLOGIC HISTORY AND TREATMENT DETAILS: ? Presented in January 2021 with left-sided axillary swelling over 2 to 3 weeks. This was confirmed by an ultrasound to be a 6.9 cm mass. FNA was nondiagnostic. ? March 18, 2021 left axillary node excision (Dr. Niño); path consistent with metastatic breast carcinoma, 5 cm, ER 0, MA 0, HER-2 0 by IHC. The tissue was not evaluated for flow cytometry to rule out a lymphoproliferative process. 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 Differential included mammary, skin, urothelial, pancreaticobiliary and pulmonary primaries. ER 0, MA 0, HER-2 negative by CAMERON. ? 2021 [...] today. Fo (more content not included)... Normal [facility] Comprehensive metabolic 2000 panelon 07-28-2021 Albumin [Mass/Vol] 4.2 g/dL Normal 3.9-4.9 [facility] Comment on above: Order Comment: Joseline beebe Type: BLOOD SPECIMENOrdering Facility: [facility] Address: [address] [place] [address] Performed By: #### 2 4323-8 ####[facility] LABCLIA [id number] [place] [address] ALP [Catalytic activity/Vol] 72 U/L Normal 34-123 [facility] Comment on above: Order Comment: Speci men Type: BLOOD SPECIMENOrdering Facility: [facility] Address: [address] [place] [address] Performed By: #### 2 4323-8 ####[facility] LABCLIA [id number] [place] [address] ALT [Catalytic activity/Vol] 7 U/L Normal 7-38 [facility] Comment on above: Order Comment: Speci men Type: BLOOD SPECIMENOrdering Facility: [facility] Address: [address] [place] [address] Performed By: #### 2 4323-8 ####[facility] LABCLIA [id number] [place] [address] Anion gap [Moles/Vol] 7 mmol/L Low 9-18 [facility] Comment on above: Order Comment: Speci men Type: BLOOD SPECIMENOrdering Facility: [facility] Address: [address] [place] [address] Performed By: #### 2 4323-8 ####[facility] LABCLIA [id number] [place] [address] AST [Catalytic activity/Vol] 17 U/L Normal 13-35 [facility] Comment on above: Order Comment: Speci men Type: BLOOD SPECIMENOrdering Facility: [facility] Address: [address] [place] [address] Performed By: #### 2 4323-8 ####[facility] LABCLIA [id number] [place] [address] Bilirubin [Mass/Vol] 0.4 mg/dL Normal 0.2-1.3 [facility] Comment on above: Order Comment: Speci men Type: BLOOD SPECIMENOrdering Facility: [facility] Address: [address] [place] [address] Performed By: #### 2 4323-8 ####[facility] LABCLIA [id number] [place] [address] Calcium [Mass/Vol] 9.8 mg/dL Normal 8.5-10.2 [facility] Comment on above: Order Comment: Speci men Type: BLOOD SPECIMENOrdering Facility: [facility] Address: [address] [place] [address] Performed By: #### 2 4323-8 ####[facility] LABCLIA [id number] [place] [address] Chloride [Moles/Vol] 105 mmol/L Normal 97-105 [facility] Comment on above: Order Comment: Speci men Type: BLOOD SPECIMENOrdering Facility: [facility] Address: [address] [place] [address] Performed By: #### 2 4323-8 ####[facility] LABCLIA [id number] [place] [address] CO2 [Moles/Vol] 26 mmol/L Normal 22-30 [facility] Comment on above: Order Comment: Speci men Type: BLOOD SPECIMENOrdering Facility: [facility] Address: [address] [place] [address] Performed By: #### 2 4323-8 ####[facility] LABCLIA [id number] [place] [address] Creatinine [Mass/Vol] 1.31 mg/dL High 0.58-0.96 [facility] Comment on above: Order Comment: Speci men Type: BLOOD SPECIMENOrdering Facility: [facility] Address: [address] [place], [place] [address] Performed By: #### 2 4323-8 ####[facility] LABCLIA [id number] [place] [address] ESTIMATED GLOMERULAR FILTRATION RATE 41 mL/min/1.73m??? Low >=60 [facility] Comment on above: Order Comment: Speci men Type: BLOOD SPECIMENOrdering Facility: [facility] Address: [address] [place], [place] [address] Result Comment: Nereyda mated Glomerular Filtration Rate [...] actual GFR. Performed By: #### 2 4323-8 ####[facility] LABCLIA [id number] [place] [address] Glucose [Mass/Vol] 129 mg/dL High 74-99 [facility] Comment on above: Order Comment: Speci men Type: BLOOD SPECIMENOrdering Facility: [facility] Address: [address] [place], [place] [id number] Result Comment: The [place] Diabetes Association (ADA) provides guidance for cutoff [...] Standards of Medical Care in Diabetes 2016, [place] Diabetes Association. Diabetes Care. 2016.39(Suppl 1). Performed By: #### 2 4323-8 ####[facility] LABCLIA [id number] [place] [address] Potassium [Moles/Vol] 4.6 mmol/L Normal 3.7-5.1 [facility] Comment on above: Order Comment: Speci men Type: BLOOD SPECIMENOrdering Facility: [facility] Address: [address] [place], [place] [address] Performed By: #### 2 4323-8 ####[facility] LABCLIA [id number] [place] [address] Protein [Mass/Vol] 7.5 g/dL Normal 6.3-8.0 [facility] Comment on above: Order Comment: Speci men Type: BLOOD SPECIMENOrdering Facility: [facility] Address: [address] [place] [address] Performed By: #### 2 4323-8 ####[facility] LABCLIA [id number] [place] [address] Sodium [Moles/Vol] 138 mmol/L Normal 136-144 [facility] Comment on above: Order Comment: Speci men Type: BLOOD SPECIMENOrdering Facility: [facility] Address: [address] [place] [address] Performed By: #### 2 4323-8 ####[facility] LABCLIA [id number] [place] [address] Urea nitrogen [Mass/Vol] 22 mg/dL High 7-21 [facility] Comment on above: Order Comment: Speci men Type: BLOOD SPECIMENOrdering Facility: [facility] Address: [address] [place] [address] Performed By: #### 2 4323-8 ####[facility] LABCLIA [id number] [place] [address] FLOW CYTOMETRY REFLEXon 04- CASE REPORT Normal [facility] Comment on above: Order Comment: Speci men Type: BLOOD SPECIMENOrdering Facility: [facility] Address: [address] [place] [address] Result Comment: Flow Cytometry Case: [id number] Authorizing Provider: Drake Anand MD Collected: 07/28/2021 02:03 PM Ordering Location: Laboratory Medicine Received: 07/29/2021 12:43 PM Pathologist: Tang Oquendo MD Specimen: BLOOD Performed By: #### F LOWREFLEX ####[facility] LABCLIA [id number] [address] [place] GROSS DESCRIPTION A. BLOOD. Normal [facility] Comment on above: Order Comment: Speci men Type: BLOOD SPECIMENOrdering Facility: [facility] Address: [address] [place] [address] Result Comment: Rece ived 4ml of peripheral blood in EDTA. Performed By: #### F LOWREFLEX ####[facility] LABCLIA [id number] [facility] [address] [place] INTERPRETATION Normal [facility] Comment on above: Order Comment: Speci men Type: BLOOD SPECIMENOrdering Facility: [facility] Address: [address] [place] [address] Result Comment: Spec imen type: BLOOD CBC [...] Negative CD200 B-cells Positive FMC7 B-cells Positive Raymer/Lambda B-cells Monotypic kappa Flow cytometric analysis of [...] developed and its performance characteristics determined by ???s [facility] Pathology and Laboratory Medicine [place] ([facility]). It has not been cleared or approved by the FDA. [facility] is regulated under CLIA as qualified to perform high-complexity testing. This test is used for clinical purposes. It should not be regarded as investigational or for research. CALI/JUAN MIGUEL 07/29/21 Diagnostic interpretation performed at , [address] [place] [address] CLIA# [id number] Woodworking Machine Operator: Bharath Light M.D. Performed By: #### F LOWREFLEX ####[facility] LABCLIA [id number] [address] OF [facility] PERIPHERAL BLOOD LOW GRADE L EUK MARKERS FCon 07-28-2021 FLOW CYTOMETRY ORDER STATUS See Results in chart under F case ID Normal [facility] Comment on above: Order Comment: Speci men Type: BLOOD SPECIMENOrdering Facility: [facility] Address: [address] [place] [address] Performed By: #### P BLGLY ####[facility] LABNAVA [id number] [address] [place] Aniket 07-22-2021 CNPN Telephone (HEMASA) JOHANNY FORBES ([id number]) 1940 F Date Time Provider Department 07/22/21 RU BLAKCMAN During your visit today, we recorded the [...] discuss further. She can be reached at [phone]. ROSA ELENA Esteban MD 07/22/2021 2:38 PM Signed I spoke with the patient regarding previous recommendations. I have asked her to come and see me in clinic next week at her convenience. PSS-could you please arrange for that? Thanks, SJK Thao Vallecillo Sec 07/22/2021 2:49 PM Signed Scheduled patient for next week for appointment spoke with gabriel Allergies As of Date: 07/22/2021 Noted Allergy Reaction LISINOPRIL 04/05/2021 16 - Unknown PENICILLINS 04/05/2021 14 - Other: See Comments Comments: Dizzy and passed out Date Reviewed: 05/12/2021 Reviewed by: Grisel Schaffer - Fully Assessed Reason for Visit: Patient Question [7767] Prescriptions as of 07/22/2021 - aspirin 81 [...] Status:Closed by RU BLACKMAN on 07/22/21 Normal [facility] Aniket 07-01-2021 CNPN Telephone (HEMASA) JOHANNY FORBSE ([id number]) 1940 F Date Time Provider Department 07/01/21 RU BLACKMAN HEMMAURIZIO During your visit today, we recorded the following information about you: Ru Blackman RN 07/01/2021 2:07 PM Signed Received call from pt wanting to know if Dr Anand got her results for the genetic testing on her tumor? SJK: Any message for pt? Or she can be reached at [phone]. ROSA ELENA Esteban MD 07/01/2021 2:49 PM [...] Status:Closed by RU BLACKMAN on 07/04/21 Normal [facility] MG MAMM DIAGNOSTIC 3D COY CA Don 05-03-2021 MG MAMM DIAGNOSTIC 3D COY CAD Patient: JOHANNY FORBES Exam Date: 05/03/2021 : 1940 Gender:F Ordering : DRAKE ANAND Admission #: [id number] Family : DR JORGE LUIS WHITEHEAD Order #: [id number] CLICK HERE TO VIEW EXAM RADIOLOGY REPORT PROCEDURE: MAMMOGRAM DIAGNOSTIC 3D BILATERAL CAD COMPARISON: MAMMO SCREEN DIG COY, 01/22/2012. INDICATIONS: Secondary malignant neoplasm of axilla Calculator Name NCI Breast Cancer Risk Assessment Tool 5 Year Breast Cancer Risk n/a% Lifetime Breast Cancer Risk n/a% Personal Breast Cancer Yes Personal Ovarian Cancer No Treatments None Family Cancers None LOCATION: [facility] BREAST COMPOSITION: Scattered areas fibroglandular density. [...] MD on 05/03/2021 at 14:29 Normal [facility] POINT OF CARE GLUCOSEon 12-0 Glucose [Mass/Vol] 169 mg/dL Critically high 74-106 [facility] Comment on above: Performed By: #### P OCGLUC #### [facility] [address] [place] [address] Dr. Dontae Vallejo CBC AUTO DIFFon 03-14-2021 BASO # 0.1 103/ul Normal 0.0-0.1 [facility] Comment on above: Performed By: #### C BC #### [facility] [address] [place] [address] Dr. Dontae Vallejo Basophils/100 WBC (Bld) 0.6 % Normal 0.2-2.0 [facility] Comment on above: Performed By: #### C BC #### [facility] [address] [place] [address] Dr. Dontae Vallejo EO # 0.4 103/ul Normal 0.0-0.7 [facility] Comment on above: Performed By: #### C BC #### [facility] [address] [place] [address] Dr. Dontae Vallejo Eosinophils/100 WBC (Bld) 4.1 % Normal 0.9-7.0 [facility] Comment on above: Performed By: #### C BC #### [facility] [address] [place] [address] Dr. Dontae Vallejo Erythrocyte distribution width (RBC) [Ratio] 13.1 % Normal 11.0-15.0 [facility] Comment on above: Performed By: #### C BC #### [facility] [address] [place] [address] Dr. Dontae Vallejo Hematocrit (Bld) [Volume fraction] 37.1 % Normal 36.0-48.0 [facility] Comment on above: Performed By: #### C BC #### [facility] [address] [place] [address] Dr. Dontae Vallejo Hemoglobin (Bld) [Mass/Vol] 12.1 g/dL Normal 12.0-16.0 [facility] Comment on above: Performed By: #### C BC #### [facility] [address] [place] [address] Dr. Dontae Vallejo IG # 0.03 10e3/ul Normal 0.00-0.03 [facility] Comment on above: Performed By: #### C BC #### [facility] [address] [place] [address] Dr. Dontae Vallejo IG % 0.3 % Normal 0.0-0.5 [facility] Comment on above: Performed By: #### C BC #### [facility] [address] [place] [address] Dr. Dontae Vallejo LYMPH # 4.5 103/ul Critically high 1.2-3.8 [facility] Comment on above: Performed By: #### C BC #### [facility] [address] [place] [address] Dr. Dontae Vallejo Lymphocytes/100 WBC (Bld) 44.8 % Normal 20.5-60.0 [facility] Comment on above: Performed By: #### C BC #### [facility] [address] [place] [address] Dr. Dontae Vallejo MANUAL DIFF REQ NO Normal [facility] Comment on above: Performed By: #### C BC #### [facility] [address] [place] [address] Dr. Dontae Vallejo MCH (RBC) [Entitic mass] 30.3 pg Normal 26.7-34.0 [facility] Comment on above: Performed By: #### C BC #### [facility] [address] [place] [address] Dr. Dontae Vallejo MCHC (RBC) [Mass/Vol] 32.6 g/dL Normal 29.9-35.2 [facility] Comment on above: Performed By: #### C BC #### [facility] [address] [place] [address] Dr. Dontae Vallejo MCV (RBC) [Entitic vol] 92.8 fL Normal 81.0-99.0 [facility] Comment on above: Performed By: #### C BC #### [facility] [address] [place] [address] [address] Dontae Vallejo MONO # 0.5 103/ul Normal 0.3-0.8 [facility] Comment on above: Performed By: #### C BC #### [facility] [address] [place] [address] [address] Dontae Vallejo Monocytes/100 WBC (Bld) 5.3 % Normal 1.7-12.0 [facility] Comment on above: Performed By: #### C BC #### [facility] [address] [place] [address] Dr. Dontae Vallejo NEUT # 4.5 103/ul Normal 1.4-6.5 [facility] Comment on above: Performed By: #### C BC #### [facility] [address] [place] [address] Dr. Dontae Vallejo Neutrophils/100 WBC (Bld) 44.9 % Normal 43.0-75.0 [facility] Comment on above: Performed By: #### C BC #### [facility] [address] [place] [address] Dr. Dontae Vallejo Platelet mean volume (Bld) [Entitic vol] 9.8 fL Normal 9.5-13.5 [facility] Comment on above: Performed By: #### C BC #### [facility] [address] [place] [address] Dr. Dontae Vallejo PLT 251 103/ul Normal 150-450 [facility] Comment on above: Performed By: #### C BC #### [facility] [address] [place] [address] Dr. Dontae Vallejo RBC 4.00 106/ul Critically low 4.20-5.40 [facility] Comment on above: Performed By: #### C BC #### [facility] [address] [place] [address] Dr. Dontae Vallejo WBC 10.1 103/ul Normal 4.0-11.0 [facility] Comment on above: Performed By: #### C BC #### [facility] [address] [place] [address] Dr. Dontae Vallejo Covid-19 PCR (CVDTB)on 02-15 SARS-CoV-2 (COVID-19) RNA DEIDRE+probe Ql (Unsp spec) Not detected Normal NOT DETECTED [facility] Comment on above: Result Comment: This test is not yet approved or cleared by the [place] FDA. When there are no FDA-approved or cleared tests available, and other criteria are met, FDA can make tests available under an emergency access mechanism called an Emergency Use Authorization (EUA). The EUA for this test is supported by the [employer] Operator of Health and Human Service's (HHS's) [...] SARS-CoV-2. Performed By: #### C VDTBH #### [facility] [address] [place] [address] Dr. Dontae Vallejo PROF CHEM 8 (BAS METB)on Anion gap [Moles/Vol] 10.5 mmol/L Normal [facility] Comment on above: Performed By: #### B MP #### [facility] [address] [place] [address] Dr. Dontae Vallejo Calcium [Mass/Vol] 9.5 mg/dL Normal 8.4-10.2 [facility] Comment on above: Performed By: #### B MP #### [facility] [address] [place] [address] Dr. Dontae Vallejo Chloride [Moles/Vol] 104 mmol/L Normal 98-107 [facility] Comment on above: Performed By: #### B MP #### [facility] [address] [place] [address] Dr. Dontae Vallejo CO2 [Moles/Vol] 26.8 mmol/L Normal 22.0-30.0 [facility] Comment on above: Performed By: #### B MP #### [facility] [address] [address] [address] Dontae Vallejo Creatinine [Mass/Vol] 1.51 mg/dL Critically high 0.52-1.04 [facility] Comment on above: Performed By: #### B MP #### [facility] [address] [address] [address] Dontae Vallejo EGFR-AF ERITREAN 40 mL/min/1.73m2 Critically low >=60 [facility] Comment on above: Performed By: #### B MP #### [facility] [address] [address] [address] Dontae Vallejo EGFR-NON AF ERITREAN 33 mL/min/1.73m2 Critically low >=60 [facility] Comment on above: Performed By: #### B MP #### [facility] [address] [address] [address] Dontae Vallejo Glucose [Mass/Vol] 145 mg/dL Critically high 74-106 [facility] Comment on above: Performed By: #### B MP #### [facility] [address] [address] [address] Dontae Vallejo Potassium [Moles/Vol] 4.3 mmol/L Normal 3.4-5.0 [facility] Comment on above: Performed By: #### B MP #### [facility] [address] [address] [address] Dontae Vallejo Sodium [Moles/Vol] 137 mmol/L Normal 137-145 [facility] Comment on above: Performed By: #### B MP #### [facility] [address] [address] [address] Dontae Vallejo Urea nitrogen [Mass/Vol] 29.0 mg/dL Critically high 7.0-17.0 [facility] Comment on above: Performed By: #### B MP #### [facility] [address] [address] [address] Dontae Vallejo Urea nitrogen/Creatinine [Mass ratio] 19.2 mg/mg Normal [facility] Comment on above: Performed By: #### B MP #### [facility] [address] [place], [place] [address] Dr. Dontae Vallejo US FINE NDL ASP W US GDNCEon 02-07-2021 US FINE NDL ASP W US GDNCE Begin Addendum #1 COLLECTED DATE/TIME: 01/24/2021 14:27 EDT Final Diagnosis Report for [facility] [place], [place] (A/B) LEFT AXILLA MASS; FINE NEEDLE [...] 2. Pathology results are pending. Normal [facility] LEUKEMIA/LYMPHOMA PROFILEon 01-31-2021 ANALYSIS AND GATING STRATEGY Comment Normal [facility] Comment on above: Result Comment: 8 co geri analysis with 7-AAD, CD45/SSC gating Performed at: -Y Performed By: #### F LOWL #### [facility] [address] [place], [place] [address] Dr. Dontae Vallejo ASSESSMENT OF LEUKOCYTES Comment Normal [facility] Comment on above: Result Comment: Ghulam a and lambda staining cannot be interpreted due to nonspecific light chain binding. A subset of T cells show CD10 expression. CD4:CD8 ratio 2.3 Analysis of the viable lymphoid cells shows: B cells 18%, T cells 82% Performed at: -Y Performed By: #### F LOWL #### [facility] [address] [place], [place] [address] Dr. Dontae Vallejo COMMENT Comment Normal [facility] Comment on above: Result Comment: Each antibody in this assay was utilized to assess for potential abnormalities of studied cell populations or to characterize identified abnormalities. . This test was developed and its performance characteristics determined by [employer]. It has not been cleared or approved by the U.S. Food and Drug Administration. . The FDA has determined that such clearance or approval is not necessary. This test is used for clinical purposes. It should not be regarded as investigational or for research. Performed at: TG Performed By: #### F LOWL #### [facility] [address] [address] [address] Dontae Vallejo FLOW COMMENT Comment Normal [facility] Comment on above: Result Comment: Ghulam [...] -Y Performed By: #### F LOWL #### [facility] [id number] Dontae Vallejo FLOW INTERPRETATION Comment Normal [facility] Comment on above: Result Comment: B ce ll clonality cannot be evaluated, T cells with CD10 expression in a small subset, low viability specimen, see comment. Performed at: -Y Performed By: #### F LOWL #### [facility] [id number] Dontae Vallejo PHENOTYPE CHART Comment Normal [facility] Comment on above: Result Comment: CD2 Normal CD3 Normal CD4 Normal CD5 Normal CD7 Normal CD8 Normal CD10 See Text CD11b Normal CD19 Normal CD20 Normal CD23 Normal CD38 Normal CD45 Normal CD56 Normal CD57 Normal [facility]-7 Normal HLA-DR Normal KAPPA See Text LAMBDA See Text Performed at: -Y Performed By: #### F LOWL #### [facility] [address] [address] [address] Dontae Vallejo RESULTING PATH NAME Comment Normal [facility] Comment on above: Result Comment: Raul Oliveros M.D. Performed at: -Y Performed By: #### F LOWL #### [facility] [address] [address] [address] Dontae Vallejo Specimen type Nom (Spec) Comment Normal [facility] Comment on above: Result Comment: Left axillary mass lymph node Performed at: -Y Performed By: #### F LOWL #### [facility] [address] [place] [address] Dr. Dontae Vallejo VIABILITY Comment Normal [facility] Comment on above: Result Comment: 22% [...] -Y Performed By: #### F LOWL #### [facility] [address] [place] [address] Dr. Dontae Vallejo US EXT NON VASC [...] by: TENZIN FERGUSON Date: 2021-01-07 16:37 Normal [facility] CBC AUTO DIFFon 11-02-2020 BASO # 0.1 103/ul Normal 0.0-0.1 [facility] Comment on above: Performed By: #### C BC #### [facility] [address] [place], [place] [id number] Jose Bambi Basophils/100 WBC (Bld) 0.6 % Normal 0.2-2.0 [facility] Comment on above: Performed By: #### C BC #### [facility] [address] [place] [address] Jose Bambi EO # 0.4 103/ul Normal 0.0-0.7 [facility] Comment on above: Performed By: #### C BC #### [facility] [address] [place] [address] Jose Bambi Eosinophils/100 WBC (Bld) 3.7 % Normal 0.9-7.0 [facility] Comment on above: Performed By: #### C BC #### [facility] [address] [place] [address] Jose Bambi Erythrocyte distribution width (RBC) [Ratio] 13.2 % Normal 11.0-15.0 [facility] Comment on above: Performed By: #### C BC #### [facility] [address] [place] [address] Jose Bambi Hematocrit (Bld) [Volume fraction] 36.1 % Normal 36.0-48.0 [facility] Comment on above: Performed By: #### C BC #### [facility] [address] [place] [address] Jose Bambi Hemoglobin (Bld) [Mass/Vol] 11.7 g/dL Critically low 12.0-16.0 [facility] Comment on above: Performed By: #### C BC #### [facility] [address] [place] [address] Jose Bambi IG # 0.03 10e3/ul Normal 0.00-0.03 [facility] Comment on above: Performed By: #### C BC #### [facility] [address] [place] [address] Jose Bambi IG % 0.3 % Normal 0.0-0.5 [facility] Comment on above: Performed By: #### C BC #### [facility] [address] [place], [place] [id number] Jose Bambi LYMPH # 4.4 103/ul Critically high 1.2-3.8 [facility] Comment on above: Performed By: #### C BC #### [facility] [address] [place], [place] [id number] Jose Bambi Lymphocytes/100 WBC (Bld) 44.9 % Normal 20.5-60.0 [facility] Comment on above: Performed By: #### C BC #### [facility] [address] [place], [place] [id number] Jose Lacy MANUAL DIFF REQ NO Normal [facility] Comment on above: Performed By: #### C BC #### [facility] [address] [place] [address] Josevlad Millarden MCH (RBC) [Entitic mass] 30.5 pg Normal 26.7-34.0 [facility] Comment on above: Performed By: #### C BC #### [facility] [address] [place], [place] [id number] Josevlad Lacy MCHC (RBC) [Mass/Vol] 32.4 g/dL Normal 29.9-35.2 [facility] Comment on above: Performed By: #### C BC #### [facility] [address] [place] [address] Josevlad Millarden MCV (RBC) [Entitic vol] 94.0 fL Normal 81.0-99.0 [facility] Comment on above: Performed By: #### C BC #### [facility] [address] [place], [place] [id number] Jose Bambi MONO # 0.6 103/ul Normal 0.3-0.8 [facility] Comment on above: Performed By: #### C BC #### [facility] [address] [place] [address] Jose Bambi Monocytes/100 WBC (Bld) 5.7 % Normal 1.7-12.0 [facility] Comment on above: Performed By: #### C BC #### [facility] [address] [place], [place] [address] Jose Millarden NEUT # 4.4 103/ul Normal 1.4-6.5 [facility] Comment on above: Performed By: #### C BC #### [facility] [address] [place], [place] [address] Jose Lacy Neutrophils/100 WBC (Bld) 44.8 % Normal 43.0-75.0 [facility] Comment on above: Performed By: #### C BC #### [facility] [address] [place], [place] [address] Josevlad Lacy Platelet mean volume (Bld) [Entitic vol] 11.3 fL Normal 9.5-13.5 [facility] Comment on above: Performed By: #### C BC #### [facility] [address] [place], [place] [address] Jose Bambi PLT 239 103/ul Normal 150-450 [facility] Comment on above: Performed By: #### C BC #### [facility] [address] [place], [place] [address] Jose Bambi RBC 3.84 106/ul Critically low 4.20-5.40 [facility] Comment on above: Performed By: #### C BC #### [facility] [address] [place], [place] [address] Jose Bambi WBC 9.8 103/ul Normal 4.0-11.0 [facility] Comment on above: Performed By: #### C BC #### [facility] [address] [place], [place] [address] Jose Bambi Vital Signs Date Time Vital Sign Value Performing Clinician Facility 08-09-2023 08:30-0400 Body height [address] 08-09-2023 08:30-399 Body mass index (BMI) [Ratio] 25.86 kg/m2 [address] 08-09-2023 08:30-040 Body weight 66.[address] 08-09-2023 08:30-0400 Diastolic blood pressure 88 mm[Hg] [address] 08-09-2023 08:30-0400 Systolic blood pressure 134 mm[Hg] [address] 07-02-2023 13:19-0400 Diastolic blood pressure 90 mm[Hg] Eloise Galicia MD Work Phone: [facility] 07-02-2023 13:19-0400 Systolic blood pressure 138 mm[Hg] Eloise Galicia MD Work Phone: [facility] 07-02-2023 13:18-0400 Body height 160 cm Eloise Galicia MD Work Phone: [facility] 07-02-2023 13:18-0400 Body mass index (BMI) [Ratio] 25.86 kg/m2 Eloise Galicia MD Work Phone: [facility] 07-02-2023 13:18-0400 Body weight 66.22 kg Eloise Galicia MD Work Phone: [facility] 07-02-2023 13:18-0400 Heart rate 80 /min Eloise Galicia MD Work Phone: [facility] 05-14-2023 13:52-0500 Body height 160 cm Jack Rogel MD Work Phone: [facility] 05-14-2023 13:52-0500 Body mass index (BMI) [Ratio] 26.57 kg/m2 Jack Rogel MD Work Phone: [facility] 05-14-2023 13:52-0500 Body weight 68.04 kg Jack Rogel MD Work Phone: [facility] 05-14-2023 13:52-0500 Diastolic blood pressure 70 mm[Hg] Jack Rogel MD Work Phone: [facility] 05-14-2023 13:52-0500 Heart rate 68 /min Jack Rogel MD Work Phone: [facility] 05-14-2023 13:52-0500 SaO2% (BldA) [Mass fraction] 98 % Jack Rogel MD Work Phone: [facility] 05-14-2023 13:52-0500 Systolic blood pressure 122 mm[Hg] Jack Rogel MD Work Phone: [facility] 03-12-2022 12:15-0500 Body height 160.02 cm Gabi Candelaria Other [facility] 03-12-2022 12:15-0500 Body mass index (BMI) [Ratio] 26.57 kg/m2 Gabi Candelaria Other [facility] 03-12-2022 12:15-0500 Body temperature 97.8 [degF] Gabi Candelaria Other [facility] Other 03-12-2022 12:15-0500 Body weight 68.04 kg Gabi Candelaria Other [facility] Other 03-12-2022 12:15-0500 Diastolic blood pressure 68 mm[Hg] Gabi Candelaria Other [facility] Other 03-12-2022 12:15-0500 Respiratory rate 18 /min Gabi Candelaria Other [facility] Other 03-12-2022 12:15-0500 SaO2% (BldA) [Mass fraction] 98 % Gabi Candelaria Other [facility] Other 03-12-2022 12:15-0500 Systolic blood pressure 123 mm[Hg] Gabi Candelaria Other [facility] Other 01-31-2022 15:09-0400 Body height 158.9 cm Simin Lama MD Work Phone: 01-31-2022 15:09-0400 Body temperature 97.3 [degF] Simin Lama MD Work Phone: 01-31-2022 15:09-0400 Body weight 70.03 kg Simin Lama MD Work Phone: 01-31-2022 15:09-0400 Diastolic blood pressure 65 mm[Hg] Simin Lama MD Work Phone: 01-31-2022 15:09-0400 Heart rate 62 /min Simin Lama MD Work Phone: 01-31-2022 15:09-0400 Respiratory rate 16 /min Simin Lama MD Work Phone: 01-31-2022 15:09-0400 SaO2% (BldA) [Mass fraction] 100 % Simin Lama MD Work Phone: 01-31-2022 15:09-0400 Systolic blood pressure 142 mm[Hg] Simin Lama MD Work Phone: 07-28-2021 14:24-0400 Body height 158.9 cm Drake Anand MD Work Phone: 07-28-2021 14:24-0400 Body temperature 97.9 [degF] Drake Anand MD Work Phone: 07-28-2021 14:24-0400 Body weight 69.94 kg Drake Anand MD Work Phone: 07-28-2021 14:24-0400 Diastolic blood pressure 74 mm[Hg] Drake Anand MD Work Phone: 07-28-2021 14:24-0400 Heart rate 56 /min Drake Anand MD Work Phone: 07-28-2021 14:24-0400 Respiratory rate 18 /min Drake Anand MD Work Phone: 07-28-2021 14:24-0400 SaO2% (BldA) [Mass fraction] 98 % Drake Anand MD Work Phone: 07-28-2021 14:24-0400 Systolic blood pressure 150 mm[Hg] Drake Anand MD Work Phone: Encounters Encounter Date Encounter Type Care Provider Facility Start: 08-09-2023 End: 08-10-2023 ambulatory [facility] Start: 08-09-2023 End: 08-09-2023 Subsequent hospital visit by physician Charley Cash Echo/Vasc Room 2 [facility] Comment on above: History of SD (myoca rdial infarction); Acute arterial ischemic stroke, multifocal, posterior circulation, right (Multi) Start: 07-31-2023 End: 07-31-2023 ambulatory JACK ROGEL Not Available Start: 07-02-2023 End: 07-02-2023 ambulatory [facility] Start: 07-02-2023 End: 07-02-2023 Office consultation new/estab patient 80 min Eloise Galicia MD Work Phone: [facility] Comment on above: Paroxysmal atrial fi brillation (CMS/HCC); History of SD (myocardial infarction); Acute arterial ischemic stroke, multifocal, posterior circulation, right (CMS/HCC); BMI 25.0-25.9,adult; Never smoked tobacco; STORMY inhibitor intolerance; Primary hypertension Start: 06-05-2023 End: 06-05-2023 ambulatory JACK ROGEL Not Available Start: 05-14-2023 End: 05-14-2023 ambulatory JACK ROGEL Not Available Start: 05-14-2023 End: 05-14-2023 Patient encounter procedure Jack Rogel MD Work Phone: [facility] Comment on above: Encounter for Medica re [...] cerebral infarction (CMS/HCC); Coronary artery disease involving iqugmiut coronary artery of iqugmiut heart without angina pectoris (CMS/HCC); Pulmonary hypertension, mild (CMS/HCC); Chronic kidney disease, stage 3b (HCC) (CMS/HCC); Type 2 diabetes mellitus with stage 3b chronic kidney disease, without long-term current use of insulin (HCC) (CMS/HCC); 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, left (CMS/HCC); Mixed dyslipidemia (CMS/HCC) Start: 04-03-2023 End: 04-03-2023 ambulatory JACK ROGEL Not Available Start: 03-16-2023 End: 03-16-2023 ambulatory LINETTE BLANKENSHIP Not Available Start: 05-15-2022 End: 05-15-2022 ambulatory Simin Lama Facility:[facility] Start: 05-15-2022 Telephone encounter Simin stanford MD Work Phone: [facility] Comment on above: Orders Start: 05-15-2022 End: 05-15-2022 ambulatory DO Jorge Luis Furlong Work Phone: [facility] Work Phone: Start: 05-15-2022 End: 05-15-2022 Patient encounter procedure DO Jorge Luis Furlong Work Phone: [facility] Work Phone: Start: 03-12-2022 End: 03-12-2022 ambulatory Gabi Gaona Other [facility] Other Start: 03-12-2022 Office outpatient ne w 20 minutes Gabi Gaona [facility] [place] Start: 02-13-2022 Telephone encounter Shiva Bess Hematology/Oncology Comment on above: Appointment Start: 01-31-2022 End: 01-31-2022 ambulatory SIMIN LAMA Facility:[facility] Start: 01-31-2022 End: 01-31-2022 ambulatory Simin Lama MD Work Phone: Hematology/Oncology Comment on above: 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, left (HCC) (Primary Dx) Start: 01-31-2022 End: 01-31-2022 Patient encounter procedure Simin Lama MD Work Phone: [place] Start: 01-31-2022 Telephone encounter Simin stanford MD Work Phone: [facility] Comment on above: Appointment Start: 07-28-2021 End: 07-28-2021 ambulatory DRAKE ANAND Facility:[facility] Start: 07-28-2021 End: 07-28-2021 ambulatory Drake Anand MD Work Phone: Hematology/Oncology Comment on above: 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, left (HCC) (Primary Dx); Lymphocytosis Start: 07-28-2021 End: 07-28-2021 Patient encounter procedure Drake Anand MD Work Phone: [facility] Start: 07-22-2021 Telephone encounter Ru Blackman RN Hematology/Oncology Comment on above: Patient Question Start: 05-03-2021 End: 05-04-[address] TENZIN FERGUSON Facility:[facility] Start: 04-12-2021 Telephone encounter Amarilys hutton PA-C Work Phone: Hematology/Oncology Comment on above: 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 Start: 03-19-2021 Encounter for preprocedural cardiovascular examination DR TIM NIÑO [facility] Start: 03-19-2021 Encounter for preprocedural laboratory examination DR TIM NIÑO [facility] Start: 03-18-2021 End: 03-18-[address] [...] Date Procedure Procedure Detail Performing Clinician Start: 08-09-2023 TRANSTHORACIC ECHO ( TTE) COMPLETE ELOISE GALICIA Start: 08-09-2023 Echo tthrc r-t 2d w/ wom-mode compl spec&colr d Eloise Galicia MD Work Phone: Start: 07-02-2023 ECG 12-LEAD ELOISE PARNELL Start: 07-02-2023 Ecg routine ecg w/le ast 12 lds w/i&r Eloise Galicia MD Work Phone: Start: 05-15-2022 Bilateral mammography D O Jorge Luis Whitehead Work Phone: Start: 05-12-2021 Adult depression scr eening assessment Ru Blackman RN Start: 01-22-2019 Echocardiography Plan of Treatment Date Care Activity Detail Author Start: 03-19-2025 Glaucoma screening Diabetes: R etinopathy Screening [facility] Start: 07-28-2024 DIABETES SCREEN DIABETES SCREEN [facility] Start: 05-14-2024 Medicare Annual Wellness (AWV) Medicare Annual Wellness (AWV) [facility] Start: 04-11-2024 DIABETES SCREEN DIABETES SCREEN [facility] Start: 09-24-2023 End: 09-24-2023 Patient encounter procedure 09/24/2023 2:00 PM EDT Office Visit [facility] [address] [facility] [place] [address] Jack Rogel MD [address] [place] [address] (Fax) [facility] Start: 08-16-2023 End: 08-16-2023 Patient encounter procedure 08/16/2023 1:00 PM EDT Office Visit [facility] [address] [place] [address] Eloise Galicia MD [address] [facility] [address] [place], [place] [id number] [facility] Start: 07-26-2023 End: 07-26-2023 Patient encounter procedure 07/26/2023 1:30 PM EDT Appointment [facility] [address] [place] [address] [facility] Start: 07-02-2023 End: 07-01-2025 US Heart Transthoracic Transthoracic Echo Complete Echocardiography Routine History of SD (myocardial infarction) Acute arterial ischemic stroke, multifocal, posterior circulation, right (CMS/HCC) Expected: 07/02/2023 (Approximate), Expires: 07/01/2025 [facility] Service Area Work Phone: Comment on above: Expected: 07/02/2023 (Approximate), Expires: 07/01/2025 Start: 06-15-2023 Hemoglobin A1c measurement Diabetes: Hemoglobin A1C [facility] Start: 05-26-2023 COVID-19 Vaccine ( season) COVID-19 Vaccine () [facility] Start: 06-03-2022 End: 08-03-2022 CBC W Auto Differential panel - Blood CBC + DIFF Lab Routine 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, left (HCC) Expected: 06/03/2022 (Approximate), Expires: 08/03/2022 [facility] Work Phone: Comment on above: Expected: 06/03/2022 (Approximate), Expires: 08/03/2022 Start: 06-03-2022 End: 08-03-2022 Comprehensive metabolic 2000 panel - Serum or Plasma COMP METABOLIC PANEL Lab Routine 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, left (HCC) Expected: 06/03/2022 (Approximate), Expires: 08/03/2022 [facility] Work Phone: Comment on above: Expected: 06/03/2022 (Approximate), Expires: 08/03/2022 Start: 05-12-2022 Adult depression screening assessment DEPRESSION SCREENING Start: 04-16-2022 ADVANCE DIRECTIVE DISCUSSION ADVANCE DIRECTIVE DISCUSSION Start: 04-16-2022 DEPRESSION ASSESSMENT DEPRESSION ASS ESSMENT Start: 02-14-2022 End: 03-02-2023 Diagnostic mammography computer-aided detcj uni [facility] Radiology Routine 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, left (HCC) Expected: 02/14/2022, Expires: 03/02/2023 [facility] Work Phone: Comment on above: Expected: 02/14/2022 , Expires: 03/02/2023 Start: 12-15-2021 Influenza vaccination C [facility] Start: 06-07-2021 COVID-19 VACCINE (4 - Booster for Pfizer series) COVID-19 VACCINE (4 - Booster for Pfizer series) Start: 04-16-2021 ADVANCE DIRECTIVE DISCUSSION ADVANCE DIRECTIVE DISCUSSION Start: 04-16-2021 DEPRESSION ASSESSMENT DEPRESSION ASS ESSMENT Start: 04-01-2021 COVID-19 VACCINE (4 - Booster for Pfizer series) COVID-19 VACCINE (4 - Booster for Pfizer series) Start: 2006 BONE DENSITY BONE DENSITY Start: 2001 RSV patient s and/or patients aged 60+ years (1 - 1-dose 60+ series) RSV patients and/or patients aged 60+ years (1 - 1-dose 60+ series) [facility] Start: 1991 SHINGRIX VACCINE (1 of 2) SHINGRIX VACCINE (1 of 2) Start: 1991 Zoster Vaccines (1 o f 2) Zoster Vaccines (1 of 2) [facility] Start: 1963 DTaP/Tdap/Td Vaccine s (1 - Tdap) DTaP/Tdap/Td Vaccines (1 - Tdap) [facility] Start: 1960 Urine microalbumin profile DTAP,TDAP,TD (1 - Tdap) Start: 1959 Diabetes mellitus screening Diabetes Screening [facility] Start: 1941 Lipid panel Lipid Panel [facility] Start: 1941 Medicare Annual Wellness Visit Medicare Annual Wellness Visit (AWV) [facility] Start: 1941 Screening for osteoporosis Bone Density Scan [facility] Start: 1941 Thyroid stimulating hormone measurement TSH Level [facility] End: 07-28-2022 CBC W Auto Differential panel - Blood CBC + DIFF Lab Routine 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, left (HCC) Every 3 months for 10 Occurrences starting 07/28/2021 until 07/28/2022, 1 completed [facility] Work Phone: Comment on above: Every 3 months for 1 0 Occurrences starting 07/28/2021 until 07/28/2022, 1 completed End: 07-28-2022 Comprehensive metabolic 2000 panel - Serum or Plasma COMP METABOLIC PANEL Lab Routine 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, left (HCC) Every 3 months for 10 Occurrences starting 07/28/2021 until 07/28/2022 [facility] Work Phone: Comment on above: Every 3 months for 1 0 Occurrences starting 07/28/2021 until 07/28/2022 End: 06-14-2023 Diagnostic mammography computer-aided detcj bi [facility] Radiology Routine 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, left (HCC) 1 Occurrences starting 05/15/2022 until 06/14/2023 [facility] Work Phone: Comment on above: 1 Occurrences starti ng 05/15/2022 until 06/14/2023 End: 08-27-2022 Screening mammography bi 2-view breast inc cad DANIELLE SCREENING Radiology Routine 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, left (HCC) 1 Occurrences starting 07/28/2021 until 08/27/2022 [facility] Work Phone: Comment on above: 1 Occurrences starti ng 07/28/2021 until 08/27/2022 End: 06-14-2023 Us breast uni real time with image limited [facility] Work Phone: Comment on above: 1 Occurrences starti ng 05/15/2022 until 06/14/2023 [place] [facility] Immunization Date Immunization Notes Care Provider Caryn peace 01-23-2023 Influenza, High-dose Seasonal, Quadrivalent, Preservative Free Jack Rogel MD Work Phone: [facility] 02-08-2022 Influenza, High-dose Seasonal, Quadrivalent, Preservative Free Jack Rogel MD Work Phone: [facility] 02-04-2021 COVID-19 vaccine, ag e 12+ yr (PFIZER-BIONTECH - PURPLE TOP) Ru Blackman RN 01-19-2021 Influenza, High-dose Seasonal, Quadrivalent, Preservative Free Jack Rogel MD Work Phone: [facility] 06-03-2020 COVID-19 vaccine, ag e 12+ yr (PFIZER-BIONTECH - PURPLE TOP) Ru Blackman RN 05-12-2020 COVID-19 vaccine, ag e 12+ yr (PFIZER-BIONTECH - PURPLE TOP) Ru Blackman RN 01-15-2020 influenza, seasonal, injectable Jack Rogel MD Work Phone: [facility] 12-26-2019 influenza, high dose seasonal, preservative-free Ru Blackman RN 01-24-2018 influenza, high dose seasonal, preservative-free Ru Blackman RN 01-25-2017 influenza, high dose seasonal, preservative-free Ru Blackman RN 01-20-2015 influenza, injectabl e, quadrivalent, contains preservative Jack Rogel MD Work Phone: [facility] 10-12-2014 pneumococcal conjuga te vaccine, 13 valent Ru Blackman RN 04-05-2010 pneumococcal polysaccharide vaccine, 23 valent Ru Blackman RN Payers Date Payer Category Payer Unknown [id number] 2022 Self-pay [id number] 2018 Unknown ANTHEM BLUE CR[employer] S AND BLUE SHIELD ANTHEM SHIVBLUE HMO [id number] 2018-Present [phone] [address] [place] [address] O [id number] 2018 Unknown [id number] 1959 Unknown [id number] 1941 Unknown [id number] [id number]5 1941 Unknown [id number] 2.16.840.1.479380.3.579.2.593 1941 Unknown [id number] 2.16.840.1.469185.3.579.2.593 1941 Unknown [id number] 2.16.840.1.824204.3.579.2.593 1941 Unknown [id number] 2.16.840.1.800276.3.579.2.593 1941 Unknown [id number] 2.16.840.1.652418.3.579.2.593 1941 Unknown [id number] 2.16.840.1.871487.3.579.2.593 1941 Unknown [id number] 2.16.840.1.853830.3.579.2.593 1941 Unknown [id number] 2.16.840.1.731207.3.579.2.125 9 1941 Unknown [id number] 2.16.840.1.972038.3.579.2.125 9 1941 Unknown [id number] 2.16.840.1.138540.3.579.2.125 9 1941 Unknown [id number] 2.16.840.1.226058.3.579.2.125 9 1941 Unknown [id number] 2.16.840.1.053517.3.579.2.125 9 1941 Unknown [id number] 2.16.840.1.192165.3.579.2.124 4 1941 Unknown [id number] 2.16.840.1.408727.3.579.2.124 6 Unknown [id number] [id number] Social History Date Type Detail Facility Start: 04-05-2021 End: 07-02-2023 Tobacco smoking status NHIS Never smoked tobacco Start: 04-05-2021 End: 07-02-2023 Tobacco use and exposure Smokeless tobacco non-user Start: 05-12-2021 End: 05-24-2023 Alcohol intake Ex-drinker (finding) Start: 1940 Sex Assigned At Not on file C [facility] Start: 07-18-2021 End: 08-09-2023 Exposure to SARS-CoV-2 (event) Not sure Start: 05-24-2023 End: 07-02-2023 Sex Assigned At [facility] Other Start: 1940 Sex Assigned At Female F [facility] History of tobacco use Passive smoker [facility] Start: 05-24-2023 End: 07-02-2023 History of Social function [facility] Start: 04-03-2023 Alcohol Comment caffeine intak e: 3-4 cups daily coffee [facility] Start: 07-02-2023 Alcohol intake Lifetime non-d mayela (finding) [facility] Work Phone: Clinical Notes 03-18-2021 to 07-02-2023 Eloise Galicia MD - 07/02/2023 1:15 PM EDTPatient Qian Rogel MD - 05/14/2023 2:00 PM ESTTelephone Encounter - Ru Thomas RN - 05/15/2022 2:18 PM EST Note Date & Type Note Facility 07-02-2023 History of Presen t illness Narrative Referred by Establish Care ([facility]-afib/plum htn) History Of Present Illness: Johanny Forbes is a 83 y.o. female presenting with multiple comorbidities, including atrial fibrillation, pulmonary hypertension, here to establish cardiology care.. She has noticed palpitations on and off, associated with shortness of breath. She says when that occurred she resumed her Entresto, and felt better. She denies chest discomfort pressure tightness heaviness denies any falls, denies any bleeding diathesis, no fever chills or cough. No un intentional weight loss or weight gain 12 point review of systems is negative or noncontributory except as noted Past Medical History: Review of outside records March 2023: Johanny Forbes is a RIGHT hand dominant 82yo female with history of HTN, HLD, CAD, borderline DM, CKD-stage 3 and previous TIA who presented to [facility] yesterday with complaint of transient neurologic symptoms including headache, dysarthria and generalized weakness. She actually awoke yesterday morning around 4am with these symptoms. They improved after a few hours but she continued to have a mild headache, fatigue and generalized weakness prompting the EC visit. In the EC she underwent a non-contrast CTH which revealed some subacute vs chronic ischemia in the owens radiata. Johanny was subsequently admitted for further stroke work up including MRI Brain/ MRA of head and neck with a consult placed to telestroke medicine. Note MRI/ MRA have been completed. Carcinoma of left breast metastatic to axillary lymph node Past Surgical History: She has a past surgical history that includes Appendectomy and Breast lumpectomy. Social History: She reports that she has never smoked. She has never used smokeless tobacco. She reports that she does not drink alcohol and does not use drugs. Family History: Family History Problem Relation Name Age of Onset Diabetes type II Mother Coronary artery disease Father Aneurysm Sister Diabetes type II Brother Other (bypass heart) Brother Allergies: Lisinopril, Penicillins, and Nxkgeng-eoo-qju reductase inhibitors Outpatient Medications: Current Outpatient Medications Medication Instructions aspirin 81 mg, oral, Daily carvedilol (COREG) 3.125 mg, oral, 2 times daily with meals levothyroxine (SYNTHROID, LEVOXYL) 25 mcg, oral, Daily RT mometasone (Elocon) 0.1 % cream 1 Application, Topical, Daily RT Last Recorded Vitals: Vitals: 07/02/23 1318 07/02/23 1319 BP: (!) 138/102 138/90 BP Location: Right arm Left arm Patient Position: Sitting Sitting Pulse: 80 Weight: 66.2 kg (146 lb) Height: 1.6 m (5' 3 ) Physical Exam: GENERAL APPEARANCE: Well developed, well nourished, in no acute distress. CHEST: Symmetric and non-tender. INTEGUMENT: Skin warm and dry, without gross excoriationis or lesions. HEENT: No gross abnormalities, no jugular venous distention no carotid bruit or scleral icterus NECK: Supple, no JVD, no bruit. Thyroid not palpable. Carotid upstrokes normal. NEURO/PSHCY: Alert and oriented x3; appropriate behavior and responses and responses, with normal balance and coordination LUNGS: Clear to auscultation bilaterally; normal respiratory effort. HEART: Rate and rhythm regular with no evident murmur; no gallop appreciated. There are no rubs, clicks or heaves. ABDOMEN: Soft, nontender, no masses or bruits. MUSCULOSKELETAL: No obvious deformity identified EXTREMITIES: Warm There is no edema noted. PERIPHERAL VASCULAR: Pulses present and equally palpable; 2+ throughout. Labs reviewed today : Laboratory data from July 2021 to include basic metabolic profile and comprehensive profile was reviewed. Sodium 138 potassium 4.6 creatinine 1.3 GFR 41 glucose 129 liver enzymes were normal. November 2022 hemoglobin 11.9 hematocrit 36 platelet count 2 57,000 , creatinine 1.29 BUN 24 GFR 42 potassium 4.3 TSH 6.3 total cholesterol 246 HDL 37 triglycerides 214 LDL 171 Assessment/Plan Diagnoses and all orders for this visit: Paroxysmal atrial fibrillation (CMS/HCC) - ECG 12 Lead - magnesium oxide (Mag-Ox) 400 mg tablet; Take 1 tablet (400 mg) by mouth 2 times a day. - apixaban (Eliquis) 5 mg tablet; Take 1 tablet (5 mg) by mouth 2 times a day. - metoprolol succinate XL (Toprol-XL) 25 mg 24 hr tablet; Take 1 tablet (25 mg) by mouth once daily. Do not crush or chew. - apixaban (Eliquis) 5 mg tablet; Take 1 tablet (5 mg) by mouth 2 times a day. History of SD (myocardial infarction) - magnesium oxide (Mag-Ox) 400 mg tablet; Take 1 tablet (400 mg) by mouth 2 times a day. - Transthoracic Echo Complete; Future Acute arterial ischemic stroke, multifocal, posterior circulation, right (CMS/HCC) - Follow Up In Cardiology; Future - Transthoracic Echo Complete; Future BMI 25.0-25.9,adult Never smoked tobacco STORMY inhibitor intolerance Primary hypertension - valsartan (Diovan) 40 mg tablet; Take 1 tablet (40 mg) by mouth once daily. - metoprolol succinate XL (Toprol-XL) 25 mg 24 hr tablet; Take 1 tablet (25 mg) by mouth once daily. Do not crush or chew. 1. Paroxysmal atrial fibrillation (CMS/HCC) 2. History of SD (myocardial infarction) 3. Acute arterial ischemic stroke, multifocal, posterior circulation, right (CMS/HCC) 4. BMI 25.0-25.9,adult 5. Never smoked tobacco 6. STORMY inhibitor intolerance 7. Primary hypertension Echocardiogram January 2019-LVEF 45%, global hypokinesis with minor regional variations, LV cavity size normal left atrial size normal normal RV size and systolic function no aortic stenosis, there is trace mitral regurgitation, mild tricuspid regurgitation, left atrial diameter 3.5 cm, LV end-systolic diameter 3.9 cm, aortic root size 3.7 cm, RV systolic pressure 27 mmHg. Cardiac catheterization June 2018-for non-ST elevation myocardial infarction-95% stenosis at the ostium of the medium sized first diagonal branch, otherwise nonflow-limiting disease, LVEF 55%, medical therapy recommended. EKG 06/01/2023 poor baseline, atrial fibrillation, left ventricular hypertrophy Clinical decision makin-year-old with a [id number] score of 7, has paroxysmal atrial fibrillation. Patient was informed that the patient has an irregularly irregular heart rate, and it is called atrial fibrillation. The pathophysiology of atrial fibrillation, some of the precipitating factors, and the risk of stroke with atrial fibrillation was discussed. Patient was informed that there are different modalities for treating atrial fibrillation, and the plan of treatment would be individualized to the patient's needs and response. The importance of blood thinners to prevent stroke in atrial fibrillation was discussed, the pros and cons of blood thinners were also discussed to include bleeding with over treatment and lack of stroke protection in the setting of under treatment. We talked about the available medications for stroke prevention, to include warfarin and the newer anticoagulation agents. The newer anticoagulation agents that were discussed included Eliquis, and Xarelto. Benefits of warfarin that were discussed included lower-cost and ability to reverse promptly. The downside of warfarin is in need for frequent blood draws, the interaction of food with INR level, and variability of INR level based on other medications such as antibiotic usage. The downside of warfarin also include erratic anticoagulation and the need for frequent blood monitoring. The downside of newer anticoagulation agents include higher cost and at times inability to reverse effects in an emergency . Patient expressed understanding. Previously she had expressed concerns about the cost of Eliquis. We will try to see if any additional paperwork can be provided to ease the cost. Patient was also told that if there is any evidence of bleeding such as black stool or blood in the stool or traumatic falls, prompt medical attention should be sought. If patient were to have surgical procedures, they would be interruption in these medications, and additional orders will need to be provided. Also discussed the fact that atrial fibrillation management includes controlling the rate and establishing normal rhythm. Fall risk was also assessed. There was discussion about fall prevention, and in the event of a fall, patient the need to be evaluated to assess injuries, particularly bleeding issues. Patient shouldl report promptly in the event of any noticeable bleeding such as blood in the stool or black stool bleeding from the nose etc. She expressed prohibitive cost of Entresto, her LV ejection fraction has been normal, as such she can switch from Entresto to Diovan, we will start with 40 mg p.o. twice daily and uptitrate as needed. Will request echocardiogram Hyperlipidemia :Her lipid profile has been markedly abnormal, and she has atherosclerotic iqugmiut vessel coronary disease, statin therapy is indicated, will discuss further at next visit, it appears that she has statin intolerance. May be a candidate for Leqvio. Patient will follow-up after testing Thank you Dr. Rogel for allowing me to participate in Johanny's care, please do not hesitate to call if further questions arise, Sincerely, Eloise Galicia MD [facility] Provider Attestation - Scribe documentation Scribe Attestation By signing my name below, I, Elizabeth SHANNON , Scribe attest that this documentation has been prepared under the direction and in the presence of Eloise Galicia MD. All medical record entries made by the Scribe were at my direction and personally dictated by me. I have reviewed the chart and agree that the record accurately reflects my personal performance of the history, physical exam, discussion and plan. Spent over 50 minutes gathering and reviewing data, chart preparation, patient interview and examination, and formulation of care. documented in this encounter [facility] Work Phone: 07-02-2023 Instructions Curtis Navarro MA - 07/02/2023 1:15 PM EDT Please bring all medicines, vitamins, and herbal supplements with you when you come to the office. Prescriptions will not be filled unless you are compliant with your follow up appointments or have a follow up appointment scheduled as per instruction of your physician. Refills should be requested at the time of your visit. documented in this encounter [facility] Work Phone: 05-14-2023 History of Presen t illness Narrative [...] Yes Vision Screening: Yes, patient sees regular dependency director/hospice aide Hearing Screening: Has some hearing loss Cognitive Screening Self Assessment: No concerns rasied by family members, friends, or caretakers Three Word Registration: River, Nation, Finger Clock Drawing: Normal Clock - 2 Three Word Recall: All 3 words correct - 3 Total Score (0-5 Points): 5 Pain Assessment Pain Score: 4 Advance Care Planning Do you have a living will?: Yes Do you have a medical power of trust and estates attorney?: Yes Objective : BP 122/70 Pulse [...] a living will and durable power of trust and estates attorney for healthcare. We discussed telling tyler [...] to someone more local when driving to [place] is driving is a little more difficult [...] home exercise program. Coronary artery disease involving iqugmiut coronary artery of iqugmiut heart without angina pectoris (CMS/HCC) Chronic problem, [...] to goal. Followed longitudinally. Electronically signed by Jack Rogel MD on May 24, 2023 documented in this encounter [facility] 05-15-2022 Miscellaneous Notes Received call from pt stating she is at [facility] and needs mammogram orders sent. Orders faxed as requested. Ru Thomas RN documented in this encounter 05-15-2022 Miscellaneous Notes Faxed order to Chrissie May 15, 2022 2:15 PM Honey Tucker Faxed order to Chrissie May 15, 2022 2:15 PM Honey Tucker Ordered Patient is currently at [facility] for her Mammogram. Chrissie is calling to request a new order. 1) Diagnostic Bilateral Mammogram 2) US order (that way they have it if needed) ABDIFATAH/Amarilys: If in agreement, can you please place order PERLITA and I will fax back to her? Thanks! Chrissie: Ph. [phone] Fax. [phone] Honey Tucker documented in this encounter 03-12-2022 Evaluation note Encounter Date Diagnosis Assessment [...] no improvement in 2 to 3 days. [facility] Other 10-31-2022 Miscellaneous Notes* Telephone Encounter - [...] advise Shiva Reyes RN documented in this encounter10-18-2022 NoteHNO ID: [id number] Author: Simin Lama MD Service: ? Author Type: Physician Type: Progress Notes Filed: 01/31/2022 3:38 PM Note Text: PATIENT NAME: Johanny Forbes CLINIC NO.: [id number] ATTENDING PHYSICIAN: Simin Lama MD DATE OF [...] metastatic breast carcinoma, 5 cm, ER 0, MA 0, HER-2 0 by IHC. The tissue was not evaluated for flow cytometry to rule out a lymphoproliferative process. 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 Differential included mammary, skin, urothelial, pancreaticobiliary and pulmonary primaries. ER 0, MA 0, HER-2 negative by CAMERON. 2021 PET [...] 04/11/2021 141 Chloride (mmol (more content not included)...[facility] 01-31-2022 Miscellaneous Notes* Telephone Encounter - Honey Tucker - 01/31/2022 4:[address] Lama, patient had a previous abnormal L Mammogram and never followed up. He would like L Mammogram completed now. Faxed order to [facility] scheduling per patient's hospital request. Honey Tucker documented in this encounter10-18-2022 History of Present illness Narrative* Simin Lama MD - 01/31/2022 3:19 PM EDT PATIENT NAME: Johanny Forbes [facility] NO.: [id number] ATTENDING PHYSICIAN: Simin Lama MD DATE OF [...] metastatic breast carcinoma, 5 cm, ER 0, MA 0, HER-2 0 by IHC. The tissue was not evaluated for flow cytometry to rule out a lymphoproliferative process. 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 Differential included mammary, skin, urothelial, pancreaticobiliary and pulmonary primaries. ER 0, MA 0, HER-2 negative by CAMERON. 2021 PET [...] 07/28/2021 3.28 1.00 - 4.00 k/uL Final Stevens% Date Value Ref Range Status 07/28/2021 5.9 % Final Abs Stevens Date Value Ref Range Status 07/28/2021 0.46 [...] Maira Saunders Booth and Ryan, of the breast pathology department, who concur. Metastatic carcinoma [...] do not hesitate to contact me at [phone]. Simin Lama MD Hematology/Medical Oncology [facility] spent a total of 30 minutes on the date of the service which included preparing to see the patient, [id number] patient care, completing clinical documentation, obtaining and/or reviewing separately obtained history, performing a medically appropriate examination, counseling and educating the pat ient/family/caregiver, and ordering medications, tests, or procedures. Medical Decision Making: Medical Decision Making Level: 1 - N/A CC: DO Jorge Luis Webster DO documented in this encounter04-14-2022 NoteHNO ID: [id number] Author: Drake Anand MD Service: ? Author [...] metastatic breast carcinoma, 5 cm, ER 0, MA 0, HER-2 0 by IHC. The tissue was not evaluated for flow cytometry to rule out a lymphoproliferative process. 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 Differential included mammary, skin, urothelial, pancreaticobiliary and pulmonary primaries. ER 0, MA 0, HER-2 negative by CAMERON. ? 2021 [...] date of the (more content not included)... [facility]04-14-2022 History of Present illness Narrative* Drake Anand [...] metastatic breast carcinoma, 5 cm, ER 0, MA 0, HER-2 0 by IHC. The tissue was not evaluated for flow cytometry to rule out a lymphoproliferative process. 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 Differential included mammary, skin, urothelial, pancreaticobiliary and pulmonary primaries. ER 0, MA 0, HER-2 negative by CAMERON. 2021 PET [...] which included preparing to see the patient, [id number] patient care, completing clinical documentation, obtaining and/or reviewing separately obtained history, counseling and educating the patient/family/caregiver, ordering medications, herlinda ts, or procedures, independently interpreting results (not separately reported) and communicating results to the patient/family/caregiver. documented in this encounter04-08-2022 Miscellaneous Notes* Telephone Encounter - Thao Vallecillo [...] discuss further. She can be reached at [phone]. Ru Blackman RN documented in this encounter12-28-2021 Miscellaneous Notes* Telephone Encounter - Amarilys Murry PA-C - 04/12/2021 4:42 PM EST Request received from [facility] for additional diagnosis codes for MRI breast because diagnosis providedis not a covered diagnosis. Will send with additional diagnosis codes. Will try C50.912 and C77.3. (carcinoma of breast metastatic to left axillary node) Amarilys Murry PA-C documented in this encounter12-03-2021 NoteOPERATIVE NOTE OPERATION DATE: 03-18-21 ANESTHETIC:LMA. EDGE STAINER:COLTON Enciso PREOPERATIVE DIAGNOSIS:Left axillary mass. POSTOPERATIVE DIAGNOSIS: [...] taken to the PACU in fair condition. [facility] Signed and Approved by: DR TIM NIÑO . 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, left (HCC)- Primary [facility] noteNo assessment [facility] Work [facility] note* Diagnosis Encounter for [...] cerebral infarction (CMS/HCC) Coronary artery disease involving iqugmiut coronary artery of iqugmiut heart without angina pectoris (CMS/HCC) Pulmonary hypertension, mild (CMS/HCC) Other chronic pulmonary heart diseases Chronic kidney disease, stage 3b (HCC) (CMS/HCC) Type 2 diabetes mellitus with stage 3b chronic kidney disease, without long-term current use of insulin (HCC) (CMS/HCC) 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, left (CMS/HCC) Mixed dyslipidemia (CMS/HCC) [facility] Paroxysmal atrial fibrillation (CMS/HCC) Atrial fibrillation History of SD (myocardial infarction) 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, multifocal, posterior circulation, right (CMS/HCC) BMI 25.0-25.9,adult Never smoked tobacco STORMY inhibitor intolerance Primary hypertension Unspecified essential hypertension documented in this encounter [facility] Work Phone: Evaluation note* Diagnosis History of SD (myocardial infarction) 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, left (HCC) Procedures DANIELLE DIAGNOSTIC LT DIAGNOSTIC MAMMOGRAPHY COMPUTER-AIDED DETCJ UNI Simin Lama MD [address] [place] [address] [facility] [address] [place] [address] Referral ID Status Reason Start Date Expiration Date Visits Requested Visits Authorized [id number] Pending Review Auto-Generat ed Referral 02/14/2022 03/02/2023 1 1 [facility] for referral (narrative)* Diagnostic Procedure Only (Routine) - Pending Review Specialty Diagnoses / Procedures Referred By Contac t Referred To Contact BR IMAGING Diagnoses 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, left (HCC) Procedures US BREAST LTD RT US BREAST UNI REAL TIME WITH IMAGE LIMITED Simin Lama MD [address] [place] [address] [facility] [address] [place] [address] Referral ID Status Reason Start Date Expiration Date Visits Requested Visits Authorized [id number] Pending Review Auto-Generat ed Referral 05/15/2022 06/14/2023 1 1 * Diagnostic Procedure Only (Routine) - Pending Review Specialty Diagnoses / Procedures Referred By Contac t Referred To Contact BR IMAGING Diagnoses 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, left (HCC) Procedures US BREAST LTD LT US BREAST UNI REAL TIME WITH IMAGE LIMITED Simin Lama MD [address] [place] [address] [facility] Imaging [address] [place] [address] Referral ID Status Reason Start Date Expiration Date Visits Requested Visits Authorized [id number] Pending Review Auto-Generat ed Referral 05/15/2022 06/14/2023 1 1 * Diagnostic Procedure Only (Routine) - Pending Review Specialty Diagnoses / Procedures Referred By Jerry hernandes Referred To Contact BR IMAGING Diagnoses 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, left (HCC) Procedures DANIELLE DIAGNOSTIC BILAT DIAGNOSTIC MAMMOGRAPHY COMPUTER-AIDED DETCJ BI Simin Lama MD [address] [place] [address] [facility] [address] [place] [address] Referral ID Status Reason Start Date Expiration Date Visits Requested Visits Authorized [id number] Pending Review Auto-Generat ed Referral 05/15/2022 06/14/2023 1 1 Summary Purpose Family History No Family History [...] and Reason for Visit Chief Complaint C77.3 Reason for Referral Specialty Diagnoses / Procedures Referred By Jerry hernandes Referred To Contact Cardiology Diagnoses History of SD (myocardial infarction) Acute arterial ischemic stroke, multifocal, posterior circulation, right (CMS/HCC) Procedures Transthoracic Echo Complete MA ECHO TTHRC R-T 2D W/WOM-MODE COMPL SPEC&COLR D Eloise Galicia MD [address] [place] [address] [address] [place] [address] Referral ID Status Reason Start Date Expiration Date Visits Requested Visits Authorized [id number] Authorized Perform Procedure 07/02/2023 07/01/2024 1 1 Specialty Diagnoses / Procedures Referred By Contac t Referred To Contact Diagnoses Paroxysmal atrial fibrillation (CMS/HCC) Procedures ECG 12 Lead Eloise Galicia MD [address] [place] [address] Referral ID Status Reason Start Date Expiration Date V isits Requested Visits Authorized [id number] Authorized 07/02/2023 07/01/2024 1 1 Specialty Diagnoses / Procedures Referred By Contac t Referred To Contact Cardiology Diagnoses Acute arterial ischemic stroke, multifocal, posterior circulation, right (CMS/HCC) Procedures Follow Up In Cardiology Eloise Galicia MD [address] [place] [address] Eloise Galicia MD [address] [place] [address] Referral ID Status Reason Start Date Expiration Date V isits Requested Visits Authorized [id number] Authorized 07/02/2023 07/01/2024 1 1 Additional Source Comments INFORMATION SOURCE (unrecogn ized section and content) DATE CREATED AUTHOR 06/27/2018 [facility] DATE CREATED AUTHOR AUTHOR'S ORGANIZ ATION 07/08/2019 [facility] DATE CREATED AUTHOR AUTHOR'S ORGANIZ ATION 05/07/2021 [facility] DATE CREATED AUTHOR AUTHOR'S ORGANIZ ATION 12/11/2021 [facility] DATE CREATED AUTHOR AUTHOR'S ORGANIZ ATION 05/16/2022 [facility] DATE CREATED AUTHOR AUTHOR'S ORGANIZ ATION 05/24/2022 [facility] DATE CREATED AUTHOR AUTHOR'S ORGANIZ ATION 08/01/2023 [facility] DATE CREATED AUTHOR AUTHOR'S ORGANIZ ATION 08/09/2023 [facility] DATE CREATED AUTHOR AUTHOR'S ORGANIZ ATION 08/15/2023 [facility] Source Comments (unrecognize d section and content) In the event this informatio n is protected by the Federal Confidentiality of Alcohol and Drug Abuse Patient Records regulations: The Federal rules restrict any use of the information to criminally investigate or prosecute any alcohol or drug abuse patient.In the event this information is protected by the Federal Confidentiality of Alcohol and Drug Abuse Patient Records regulations: The Federal rules restrict any use of the information to criminally investigate or prosecute any alcohol or drug abuse patient.In the event this information is protected by the Federal Confidentiality of Alcohol and Drug Abuse Patient Records regulations: The Federal rules restrict any use of the information to criminally investigate or prosecute any alcohol or drug abuse patient.In the event this information is protected by the Federal Confidentiality of Alcohol and Drug Abuse Patient Records regulations: The Federal rules restrict any use of the information to criminally investigate or prosecute any alcohol or drug abuse patient.In the event this information is protected by the Federal Confidentiality of Alcohol and Drug Abuse Patient Records regulations: The Federal rules restrict any use of the information to criminally investigate or prosecute any alcohol or drug abuse patient.In the event this information is protected by the Federal Confidentiality of Alcohol and Drug Abuse Patient Records regulations: The Federal rules restrict any use of the information to criminally investigate or prosecute any alcohol or drug abuse patient.In the event this information is protected by the Federal Confidentiality of Alcohol and Drug Abuse Patient Records regulations: The Federal rules restrict any use of the information to criminally investigate or prosecute any alcohol or drug abuse patient.In the event this information is protected by the Federal Confidentiality of Alcohol and Drug Abuse Patient Records regulations: The Federal rules restrict any use of the information to criminally investigate or prosecute any alcohol or drug abuse patient. 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 Breast Cancer Follow up Reason Comments Appointment Reason Comments Orders Reason Comments Orders Reason Comments Annual Exam Reason Comments Establish Care [facility]-afib/plum h tn Specialty Diagnoses / Procedures Referred By Contac t Referred To Contact Diagnoses Paroxysmal atrial fibrillation (CMS/HCC) Procedures ECG 12 Lead Eloise Galicia MD [address] [address] Referral ID Status Reason Start Date Expiration Date V isits Requested Visits Authorized [id number] Authorized 07/02/2023 07/01/2024 1 1 Specialty Diagnoses / Procedures Referred By Contac t Referred To Contact Cardiology Diagnoses History of SD (myocardial infarction) Acute arterial ischemic stroke, multifocal, posterior circulation, right (Multi) Procedures Transthoracic Echo Complete MA ECHO TTHRC R-T 2D W/WOM-MODE COMPL SPEC&COLR D Eloise Galicia MD [address] [facility] [address] [place] [address] Referral ID Status Reason Start Date Expiration Date Visits Requested Visits Authorized Authorized Perform Procedure 07/02/2023 07/01/2024 1 1 Care Teams (unrecognized sec tion and content) Superintendent Sales Relationship Specialty Start Date End Date Jorge Luis Whitehead [address] [place] [id number] PCP - General Family Practice 03/28/21 Superintendent Sales Relationship Specialty Start Date End Date Jorge Luis Whitehead [address] [place] [address] PCP - General Family Practice 03/28/21 Superintendent Sales Relationship Specialty Start Date End Date Jorge Luis Whitehead DO [address] [place] [address] PCP - General Family Practice 03/28/21 Superintendent Sales Relationship Specialty Start Date End Date Jorge Luis Whitehead, DO [address] [place] [address] PCP - General Family Medicine 03/28/21 Superintendent Sales Relationship Specialty Start Date End Date Jorge Luis Whitehead, DO [address] [place] [address] PCP - General Family Medicine 03/28/21 Superintendent Sales Relationship Specialty Start Date End Date Jorge Luis Whitehead, DO [address] [place] [address] PCP - General Family Medicine 03/28/21 Superintendent Sales Relationship Specialty Start Date End Date Jorge Luis Whitehead, DO [address] [place] [address] PCP - General Family Medicine 03/28/21 Superintendent Sales Relationship Specialty Start Date End Date Jorge Luis Whitehead, DO [address] [place] [address] PCP - General Family Medicine 03/28/21 Team Status: Inactive Member Role Status Dates Jorge Luis Whitehead DO Primary Care Provider Active Simin Lama MD Attending Provider Active Team Status: Active Member Role Status Dates Jorge Luis Whitehead DO Primary Care Provider Active Superintendent Sales Relationship Specialty Start Date End Date Amanda Briones MD [address] [place] [address] PCP - General Family Medicine 09/07/22 Amanda Briones MD [address] [place] [address] PCP - Devoted 04/16/23 Linette Blankenship NP [address] [place] [address] Nurse Practitioner Family Medicine 09/07/22 Superintendent Sales Relationship Specialty Start Date End Date Jack Rogel MD [address] [place] [address] PCP - General Family Medicine 07/02/23 Superintendent Sales Relationship Specialty Start Date End Date Jack Rogel MD [address] [place] [address] (Fax) PCP - General Family Medicine 07/02/23 Goals (unrecognized section and content) Goals may [...] BE BASED ON THE PRIMARY CLINICAL RECORDS. [employer] [facility]. provides no warranty or guarantee of the accuracy or completeness of information in this document.
--- NOTE | 2023-08-30 16:34 | ED_ITS ---
HPI HPI - General Adult General Chief complaint: Nausea/Vomiting/Diarrhea Stated complaint: black diarrhea, poss colitis Time Seen by Provider: 08/30/23 16:23 Source: patient Mode of arrival: walk-in History of Present Illness HPI narrative: Patient is an 83-year-old female who presents to the emergency department for several week history of diarrhea and black stools. She is on aspirin and Plavix. She does have mild discomfort across the upper abdomen. She states she had colitis back in May. She has had no fevers, chills, cough, congestion. She denies chest pain, shortness of breath. She states that she was started on Cipro and Flagyl by her PCP several weeks ago for this and she finished the antibiotics almost 2 weeks ago. She states her symptoms have worsened since that time. Related Data Home Medications ?Medication ?Instructions ?Recorded ?Confirmed carvedilol 3.125 mg tablet 3.125 mg PO BID 03/21/23 06/01/23 levothyroxine 25 mcg tablet 25 mcg PO QDAY 03/21/23 06/01/23 valsartan 40 mg tablet 20 mg PO QDAY 03/21/23 06/01/23 Previous Rx's ?Medication ?Instructions ?Recorded aspirin 81 mg chewable tablet 81 mg PO DAILY #30 tabs 03/22/23 clopidogrel 75 mg tablet (Plavix) 75 mg PO DAILY #30 tabs 03/22/23 ciprofloxacin HCl 500 mg tablet 500 mg PO BID 14 days #28 tabs 06/02/23 metronidazole 500 mg tablet 500 mg PO QID 14 days #56 tabs 06/02/23 ondansetron 4 mg disintegrating 4 mg PO Q6H PRN nausea and 08/30/23 tablet vomiting #12 tabs vancomycin 125 mg capsule 125 mg PO Q6H 10 days #40 caps 08/30/23 Allergies Allergy/AdvReac Type Severity Reaction Status Date / Time Penicillins Allergy Severe Verified 06/01/23 00:36 lisinopril AdvReac Severe Verified 06/01/23 00:36 Opioid HPI Opioid Management Most Recent Opioid Data: Last Pain Scale 6 06/01/23 10:10 Review of Systems ROS Constitutional Denies: fever or chills Ears, nose, mouth, and throat Denies: throat pain or nasal congestion Cardiovascular Denies: chest pain Respiratory Denies: shortness of breath Gastrointestinal Reports: abdominal pain and diarrhea; Denies: nausea or vomiting Musculoskeletal Denies: back pain Integumentary/Breast Denies: rash Neurological Denies: headache Hematologic/Lymphatic Reports: easy bruising and easy bleeding [facility] Medical History (Updated 08/30/23 @ 19:06 by HAYLEE Crow) Cerebrovascular disease ?I67.9 - Cerebrovascular disease, unspecified (ICD-10) Stage 3b chronic kidney disease (CKD) ?N18.32 - Chronic kidney disease, stage 3b (ICD-10) Type 2 diabetes mellitus with hyperglycemia ?E11.65 - Type 2 diabetes mellitus with hyperglycemia (ICD-10) Colitis ?K52.9 - Noninfective gastroenteritis and colitis, unspecified (ICD-10) Paroxysmal atrial flutter ?I48.92 - Unspecified atrial flutter (ICD-10) HTN (hypertension) ?I10 - Essential (primary) hypertension (ICD-10) CAD (coronary artery disease) ?I25.10 - Atherosclerotic heart disease of [place] coronary artery without angina pectoris (ICD-10) Lumbar spondylosis ?M47.816 - Spondylosis without myelopathy or radiculopathy, lumbar region (ICD-10) AAA (abdominal aortic aneurysm) without rupture ?I71.40 - Abdominal aortic aneurysm, without rupture, unspecified (ICD-10) Cerebrovascular accident ?I63.9 - Cerebral infarction, unspecified (ICD-10) Type 2 diabetes mellitus ?E11.9 - Type 2 diabetes mellitus without complications (ICD-10) Lacunar stroke, acute ?I63.81 - Other cerebral infarction due to occlusion or stenosis of small artery (ICD-10) Hypothyroid ?E03.9 - Hypothyroidism, unspecified (ICD-10) HLD (hyperlipidemia) ?E78.5 - Hyperlipidemia, unspecified (ICD-10) Cataract (lens) fragments in eye following cataract surgery, bilateral ?H59.023 - Cataract (lens) fragments in eye following cataract surgery, bilateral (ICD-10) Cataracts, bilateral ?H26.9 - Unspecified cataract (ICD-10) Chronic kidney disease, stage 3 unspecified ?N18.30 - Chronic kidney disease, stage 3 unspecified (ICD-10) Borderline diabetes mellitus ?R73.03 - Prediabetes (ICD-10) Myocardial infarct, old ?I25.2 - Old myocardial infarction (ICD-10) Surgical History History of appendectomy ?Z90.49 - Acquired absence of other specified parts of digestive tract (ICD- 10) History of right heart catheterization ?Z98.890 - Other specified postprocedural states (ICD-10) H/O lumpectomy ?Z98.890 - Other specified postprocedural states (ICD-10) Family History Brother Family history of diabetes mellitus Family history of myocardial infarction Mother Family history of diabetes mellitus Family history of myocardial infarction Sister Family history of myocardial infarction Family history of stroke Daughter Family history of cancer Uncle Family history of CHF (congestive heart failure) Father Family history of COPD (chronic obstructive pulmonary disease) Social History Within the past year, how often did you have a drink containing alcohol: never Score interpretation: A score less than 3 is consistent with normal alcohol consumption. 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 Known occupational exposures/hazards: No Highest level of school completed/degree received: some college, no degree Do you want help with school or training: No Are you now , , , , never or living with a partner: In a typical week, how many times do you talk on the telephone with family, friends, or neighbors: 3 or more times per week How often do you get together with friends or relatives: 3 or more times per week Little interest or pleasure in doing things: not at all Feeling down, depressed, or hopeless: not at all Feel stressed/tense/nervous/anxious/difficulty sleeping: not at all Life stressors: recent of family or friend Life stressor details: daughter last year Do you think of yourself as: straight/heterosexual Gender Identity: female Exam Narrative Exam Narrative: Gen.: Awake, alert, in no distress Head: Normocephalic, atraumatic ENT: Moist mucous membranes Respiratory: No respiratory distress Gastrointestinal: Abdomen is soft, nondistended and nontender to palpation; No rebound, No guarding Extremities: Moves extremities equally Psych: Normal mood and affect Neuro: No focal neuro deficit Skin: Warm, dry, intact Constitutional Vital Signs, click to edit/add: Last Vital Signs Temp 98.4 F 08/30/23 16:24 Pulse 85 08/30/23 16:57 Resp 20 08/30/23 16:57 BP 123/53 08/30/23 18:21 Pulse Ox 97 08/30/23 16:24 O2 Del Method Room Air 08/30/23 16:24 Course Vital Signs Vital signs: Vital Signs Temperature 98.4 F 08/30/23 16:24 Pulse Rate 82 08/30/23 16:24 Respiratory Rate 16 08/30/23 16:24 Blood Pressure 130/63 08/30/23 16:24 Pulse Oximetry 97 08/30/23 16:24 Oxygen Delivery Method Room Air 08/30/23 16:24 Temperature 98.4 F 08/30/23 16:24 Pulse Rate 85 08/30/23 16:57 Respiratory Rate 20 08/30/23 16:57 Blood Pressure 123/53 08/30/23 18:21 Pulse Oximetry 97 08/30/23 16:24 Oxygen Delivery Method Room Air 08/30/23 16:24 Medical Decision Making MDM Narrative Medical decision making narrative: CT of the abdomen and pelvis performed, labs obtained and GI panel obtained. Patient found to have C. difficile. CT shows a 1 cm area on the left adnexa that patient will need to follow-up with her PCP over. She also has circumferential wall thickening of the colon consistent with colitis. Patient was reevaluated by attending physician, reexamined, and he discussed her labs and imaging. Vital signs are within normal limits, abdomen is soft and benign. Patient will be treated with oral vancomycin, Zofran for home. Follow-up closely with PCP for reevaluation and return to the ER if symptoms change or worsen Medical Records Medical records reviewed: Yes I reviewed the patient's medical records Lab Data Lab results reviewed: Yes I reviewed the patient's lab results Labs: Lab Results 08/30/23 08/30/23 Range/Units 16:42 16:52 WBC 11.8 H (4.0-11.0) 10^3/uL RBC 3.77 L (4.20-5.40) 10^6/uL Hgb 11.1 L (12.0-16.0) g/dL Hct 35.1 L (36.0-48.0) % MCV 93.1 (81.0-99.0) fL MCH 29.4 (26.7-34.0) pg MCHC 31.6 (29.9-35.2) g/dL RDW 13.7 (11.0-15.0) % Plt Count 260 (150-450) 10^3/uL MPV 10.2 (9.5-13.5) fL Neut % (Auto) 63.3 (43.0-75.0) % Lymph % (Auto) 26.3 (20.5-60.0) % Bibb % (Auto) 6.0 (1.7-12.0) % Eos % (Auto) 3.7 (0.9-7.0) % Baso % (Auto) 0.4 (0.2-2.0) % Neut # (Auto) 7.5 H (1.4-6.5) 10^3/uL Lymph # (Auto) 3.1 (1.2-3.8) 10^3/uL Bibb # (Auto) 0.7 (0.3-0.8) 10^3/uL Eos # (Auto) 0.4 (0.0-0.7) 10^3/uL Baso # (Auto) 0.1 (0.0-0.1) 10^3/uL Abs Immat Gran (auto) 0.04 H (0.00-0.03) 10^3/uL Imm/Tot Granulo (auto) 0.3 (0.0-0.5) % PT 11.7 H (9.0-11.6) sec INR 1.12 Sodium 136 (136-145) mmol/L Potassium 3.6 (3.5-5.1) mmol/L Chloride 103 (98-107) mmol/L Carbon Dioxide 21.5 (21.0-32.0) mmol/L Anion Gap 15.1 BUN 22.0 H (7.0-18.0) mg/dL Creatinine 1.41 H (0.55-1.02) mg/dL Est GFR ( Amer) 43 L (>=60) Est GFR (Non-Af Amer) 36 L (>=60) BUN/Creatinine Ratio 15.6 Glucose 115 H (74-106) mg/dL Lactate 0.9 (0.4-2.0) mmol/L Calcium 8.8 (8.5-10.1) mg/dL Total Bilirubin 0.8 (0.2-1.0) mg/dL AST 9 L (15-37) U/L ALT <6 L (14-59) U/L Alkaline Phosphatase 58 (46-116) U/L Total Protein 7.1 (6.4-8.2) g/dL Albumin 3.0 L (3.4-5.0) g/dL Globulin 4.1 g/dL Albumin/Globulin Ratio 0.7 Stool Occult Blood Positive A Stl C. cayetanensis PCR Not detected (NOT DETECTE) Stool Rotavirus (PCR) Not detected (NOT DETECTE) Stool Adenovirus (PCR) Not detected (NOT DETECTE) Stool Astrovirus (PCR) Not detected (NOT DETECTE) Stool Campylobacter PCR Not detected (NOT DETECTE) Stool Cryptosporidium PCR Not detected (NOT DETECTE) St Sh/Enteroin Ecoli PCR Not detected (NOT DETECTE) Stl Enterotoxigenic E PCR Not detected (NOT DETECTE) Stool EPEC (PCR) Not detected (NOT DETECTE) Stl E. histolytica PCR Not detected (NOT DETECTE) Stool Giardia Lamblia PCR Not detected (NOT DETECTE) Stl P. shigelloides PCR Not detected (NOT DETECTE) Stool Salmonella PCR Not detected (NOT DETECTE) Stool Sapovirus (PCR) Not detected (NOT DETECTE) Stl Shiga-like Tx 1 PCR Not detected (NOT DETECTE) St Y.enterocolitica PCR Not detected (NOT DETECTE) Stl Vibrio cholerae PCR Not detected (NOT DETECTE) Stl Enteroaggr Ecoli PCR Not detected (NOT DETECTE) Stl Norovirus GI/GII PCR Not detected (NOT DETECTE) Specimen Source Stool C. difficile Toxin A&B Detected A* (NOT DETECTE) Vibrio Culture Not detected (NOT DETECTE) Blood Type O Positive Antibody Screen Negative Imaging Data CT scan - abdomen: Attestation: I have reviewed the pertinent imaging results. Radiologist's impression: ITS Impressions Abdomen/Pelvis CT 08/30/23 17:28 IMPRESSION: Circumferential wall thickening of the descending colon up to the rectum, representing acute infectious/inflammatory/ischemic colitis. a 1.6 cm cystic structure in the left adnexa. Pelvic MRI with and without contrast or gynecology consult for resection is recommended. Electronically authenticated by: LIANNA KNIGHT Date: 08/30/2023 18:43 ECG Data Attestation: I personally reviewed and interpreted this ECG as follows: (Normal sinus rhythm on a rate of 84, no acute ST elevation or ectopy. EKG reviewed by attending physician.) Discharge Plan Discharge Stand Alone Forms: Portal Instructions Chief Complaint: Nausea/Vomiting/Diarrhea Clinical Impression: Colitis, Clostridium difficile infection Patient Disposition: Home, Self-Care Time of Disposition Decision: 19:06 Condition: Good Prescriptions / Home Meds: New vancomycin 125 mg capsule 125 mg PO Q6H 10 Days Qty: 40 0RF ondansetron 4 mg tablet,disintegrating 4 mg PO Q6H PRN (Reason: nausea and vomiting) Qty: 12 0RF No Action carvedilol 3.125 mg tablet 3.125 mg PO BID levothyroxine 25 mcg tablet 25 mcg PO QDAY Patient Comments: only takes sometimes. valsartan 40 mg tablet 20 mg PO QDAY aspirin 81 mg tablet,chewable 81 mg PO DAILY Qty: 30 0RF clopidogrel [Plavix] 75 mg tablet 75 mg PO DAILY Qty: 30 0RF ciprofloxacin HCl 500 mg tablet 500 mg PO BID 14 Days Qty: 28 0RF metronidazole 500 mg tablet 500 mg PO QID 14 Days Qty: 56 0RF Print Language: Bangladeshi Instructions: C. Diff (Clostridioides Difficile) Infection (ED), Colitis (ED) Referrals: REINALDO ROGEL [Primary Care Provider] - 1 week
[2023-08-30 16:56] VITALS: PULSE 83
[2023-08-30 16:57] VITALS: PULSE 85
[2023-08-30] MEDS: 0.9 % SODIUM CHLORIDE 1,000 ML 1000 ML IV (17:02)
[2023-08-30 17:06] LABS: Basophils Absolute Auto 0.1 10^3/uL (0.0-0.1); Basophils Percent Auto 0.4 % (0.2-2.0); Eosinophils Absolute Auto 0.4 10^3/uL (0.0-0.7); Eosinophils Percent Auto 3.7 % (0.9-7.0); Hematocrit 35.1 % (36.0-48.0); Hemoglobin 11.1 g/dL (12.0-16.0); Immature Granulocytes Abs Auto 0.04 10^3/uL (0.00-0.03); Immature Granulocytes Pct Auto 0.3 % (0.0-0.5); Lymphocytes Absolute Auto 3.1 10^3/uL (1.2-3.8); Lymphocytes Percent Auto 26.3 % (20.5-60.0); Mean Corpuscular HGB Conc 31.6 g/dL (29.9-35.2); Mean Corpuscular Hemoglobin 29.4 pg (26.7-34.0); Mean Corpuscular Volume 93.1 fL (81.0-99.0); Mean Platelet Volume 10.2 fL (9.5-13.5); Monocytes Absolute Auto 0.7 10^3/uL (0.3-0.8); Neutrophils Absolute Auto 7.5 10^3/uL (1.4-6.5); Neutrophils Percent Auto 63.3 % (43.0-75.0); Platelet Count 260 10^3/uL (150-450); Red Blood Count 3.77 10^6/uL (4.20-5.40); Red Cell Distribution Width 13.7 % (11.0-15.0); White Blood Count 11.8 10^3/uL (4.0-11.0)
[2023-08-30 17:16] LABS: Adenovirus F 40/41 NOT DETECTED (NOT DETECTE); Astrovirus NOT DETECTED (NOT DETECTE); Campylobacter NOT DETECTED (NOT DETECTE); Cryptosporidium NOT DETECTED (NOT DETECTE); Cyclospora cayetanensis NOT DETECTED (NOT DETECTE); Entamoeba histolytica NOT DETECTED (NOT DETECTE); Enteroaggregative E.coli NOT DETECTED (NOT DETECTE); Enteropathogenic E.coli NOT DETECTED (NOT DETECTE); Enterotoxigenic E. coli NOT DETECTED (NOT DETECTE); Giardia lamblia NOT DETECTED (NOT DETECTE); Norovirus GI/GII NOT DETECTED (NOT DETECTE); Plesiomonas shigelloides NOT DETECTED (NOT DETECTE); Rotavirus A NOT DETECTED (NOT DETECTE); Salmonella NOT DETECTED (NOT DETECTE); Sapovirus NOT DETECTED (NOT DETECTE); Shiga-like toxin-producing E.C NOT DETECTED (NOT DETECTE); Shigella/Enteroinvasive E.coli NOT DETECTED (NOT DETECTE); Vibrio NOT DETECTED (NOT DETECTE); Vibrio cholerae NOT DETECTED (NOT DETECTE); Yersinia enterocolitica NOT DETECTED (NOT DETECTE)
[2023-08-30 17:18] LABS: INR 1.12; Prothrombin Time 11.7 sec (9.0-11.6)
[2023-08-30 17:21] LABS: Alanine Aminotransferase <6 U/L (14-59); Albumin Globulin Ratio 0.7; Alkaline Phosphatase 58 U/L (46-116); Anion Gap 15.1; Aspartate Amino Transferase 9 U/L (15-37); BUN Creatinine Ratio 15.6; Bilirubin Total 0.8 mg/dL (0.2-1.0); Calcium 8.8 mg/dL (8.5-10.1); Carbon Dioxide 21.5 mmol/L (21.0-32.0); Chloride 103 mmol/L (98-107); Estimated GFR (African America 43 (>=60); Estimated GFR (Non-African Ame 36 (>=60); Globulin 4.1 g/dL; Glucose 115 mg/dL (74-106); Potassium 3.6 mmol/L (3.5-5.1); Sodium 136 mmol/L (136-145); Total Protein 7.1 g/dL (6.4-8.2)
[2023-08-30 17:27] LABS: Occult Blood Positive
--- NOTE | 2023-08-30 17:28 | CT_ITS ---
[address] [address] Patient Name: MADALYN FORBES MRN: [id number] date: 1940 Sex: F Assigned Patient Location: ER Current Patient Location: Accession/Order Number: [id number] Exam Date: 08/30/2023 17:50 Report Date: 08/30/2023 18:43 At the request of: SHIVA DE LA FUENTE Procedure: CT abdomen pelvis w con EXAM: CT abdomen pelvis w con HISTORY: diarrhea, abdominal pain, hx of colitis COMPARISON: None. TECHNIQUE: Axial CT imaging was performed through the abdomen and pelvis with intravenous contrast. Multiplanar reformats were performed. Dose reduction techniques were achieved by using automated exposure control and/or adjustment of mA and/or kV according to patient size and/or use of iterative reconstruction technique. FINDINGS: Lung bases: Lung bases are clear. No pleural effusion. GI upper: Small hiatal hernia. Liver: Normal size and contour. Gallbladder: No significant abnormality. No cholelithiasis. Biliary system: No intra or extrahepatic biliary ductal dilatation. Spleen: Normal size. Pancreas: Unremarkable. Adrenal glands: Normal adrenal glands. Kidneys/ureters: Normal contours. No hydronephrosis. No nephrolithiasis or ureterolithiasis. Vessels: Stable infrarenal abdominal aortic aneurysm measuring 3.7 cm. Stable ectatic right common iliac artery, measuring 1.8 cm. Moderate atherosclerotic calcification of the aorta. Lymph Nodes: No lymphadenopathy. Small bowel: No wall thickening or dilatation. Colon: Circumferential wall thickening of the descending colon up to the rectum, representing acute infectious/inflammatory/ischemic colitis. Appendix: No findings of appendicitis. Peritoneal cavity: No free fluid or pneumoperitoneum. Lower : The uterus is unremarkable. There is a 1.6 cm cystic structure in the left adnexa. Pelvic MRI with and without contrast or gynecology consult for resection is recommended. Bones: No acute bony abnormality. Soft tissues: No acute finding. Additional findings: None. CT/CT abdomen pelvis w con IMPRESSION: Circumferential wall thickening of the descending colon up to the rectum, representing acute infectious/inflammatory/ischemic colitis. a 1.6 cm cystic structure in the left adnexa. Pelvic MRI with and without contrast or gynecology consult for resection is recommended. Electronically authenticated by: LIANNA KNIGHT Date: 08/30/2023 18:43
[2023-08-30 17:30] LABS: Lactate/Lactic Acid 0.9 mmol/L (0.4-2.0)
[2023-08-30 18:21] VITALS: BP 123/53
== END 2023-08-30 19:35 | disposition home or self-care (01) ==
PROVIDERS: Physician Assistant; Emergency Provider Emergency Medicine Emergency Medical Services; PCP Family Medicine
DX: A04.72 Enterocolitis due to Clostridium difficile, not specified as recurrent (principal); E11.22 Type 2 diabetes mellitus with diabetic chronic kidney disease; M47.816 Spondylosis without myelopathy or radiculopathy, lumbar region; I12.9 Hypertensive chronic kidney disease with stage 1 through stage 4 chronic kidney disease, or unspecified chronic kidney disease; N18.32 Chronic kidney disease, stage 3b; I67.9 Cerebrovascular disease, unspecified; I48.92 Unspecified atrial flutter; I25.10 Atherosclerotic heart disease of native coronary artery without angina pectoris; Z86.73 Personal history of transient ischemic attack (TIA), and cerebral infarction without residual deficits; E03.9 Hypothyroidism, unspecified; E78.5 Hyperlipidemia, unspecified; I25.2 Old myocardial infarction; Z98.890 Other specified postprocedural states; Z90.49 Acquired absence of other specified parts of digestive tract; Z79.82 Long term (current) use of aspirin; Z79.02 Long term (current) use of antithrombotics/antiplatelets; Z79.899 Other long term (current) drug therapy; Z79.890 Hormone replacement therapy
CPT/HCPCS: 36415; 74177; 80053; 83605; 85025; 85610; 86850; 86900; 86901; 87507; 93005; 96360; 99285; G0328; Q9967

== ENCOUNTER 2023-09-17 16:39 | Outpatient (OUT) | payer OTHER, SELFPAY ==
[2023-09-17 18:06] LABS: Estimated Average Glucose 140 mg/dL; Glycohemoglobin A1C 6.5 % (4.5-6.2)
[2023-09-17 18:28] LABS: Free T4 1.37 ng/dL (0.76-1.46)
[2023-09-17 18:36] LABS: Alanine Aminotransferase 22 U/L (14-59); Albumin Globulin Ratio 0.8; Albumin Level 3.3 g/dL (3.4-5.0); Alkaline Phosphatase 68 U/L (46-116); Anion Gap 13.4; Aspartate Amino Transferase 21 U/L (15-37); Bilirubin Total 0.5 mg/dL (0.2-1.0); Calcium 9.4 mg/dL (8.5-10.1); Carbon Dioxide 25.7 mmol/L (21.0-32.0); Chloride 106 mmol/L (98-107); Chol HDL Ratio 6.6; Cholesterol 250 mg/dL (<=200); Estimated GFR (African America 50 (>=60); Estimated GFR (Non-African Ame 41 (>=60); Free T3 2.11 pg/mL (2.18-3.98); Globulin 4.3 g/dL; Glucose 101 mg/dL (74-106); HDL Cholesterol 38 mg/dL (40-60); Potassium 4.1 mmol/L (3.5-5.1); Sodium 141 mmol/L (136-145); Thyroid Stimulating Hormone 4.976 uIU/mL (0.358-3.740); Total Protein 7.6 g/dL (6.4-8.2); Triglycerides 177 mg/dL (<=150); VLDL CHOLESTEROL 35.4 mg/dL
== END 2023-09-17 16:40 | disposition home or self-care (01) ==
LOC: LAB 16:39
PROVIDERS: PCP Family Medicine; Visit Provider Family Medicine
DX: R53.82 Chronic fatigue, unspecified (principal); E03.9 Hypothyroidism, unspecified; E11.22 Type 2 diabetes mellitus with diabetic chronic kidney disease; I10 Essential (primary) hypertension; E78.2 Mixed hyperlipidemia; N18.32 Chronic kidney disease, stage 3b
CPT/HCPCS: 36415; 80053; 80061; 83036; 84439; 84443; 84481

== ENCOUNTER 2023-09-25 14:00 | Outpatient (REF) | payer OTHER, SELFPAY ==
[2023-09-26 15:06] LABS: C. Difficile PCR POSITIVE (NEGATIVE)
== END 2023-09-25 14:01 | disposition home or self-care (01) ==
LOC: LAB 14:00
PROVIDERS: PCP Family Medicine; Visit Provider Family Medicine
DX: R19.7 Diarrhea, unspecified (principal)
CPT/HCPCS: 87493

== ENCOUNTER 2024-03-19 13:00 | Outpatient (OUT) | payer OTHER, SELFPAY ==
--- NOTE | 2024-03-19 13:02 | VEIN_ITS ---
The [address] [address] Patient Name: MADALYN FORBES MRN: [id number] date: 1940 Sex: F Assigned Patient Location: Current Patient Location: Accession/Order Number: [id number] Exam Date: 03/19/2024 13:03 Report Date: 03/19/2024 14:21 At the request of: REINALDO ROGEL Procedure: VC SEGMENTAL PRESSURES EXAM: VC SEGMENTAL PRESSURES. HISTORY: R09.89 Decreased pedal pulses. COMPARISON: None. TECHNIQUE: Resting ABIs and segmental limb pressures. FINDINGS: Right resting JESSE 1.02. Left resting JESSE 1.09. No pressure gradients were demonstrated. Waveforms are multiphasic. Normal toe brachial indices. VEIN/VC SEGMENTAL PRESSURES IMPRESSION: Normal resting ABIs, no pressure gradients, and normal toe brachial indices. Electronically authenticated by: Feliberto DENNIS Date: 03/19/2024 14:21
--- OUTSIDE RECORDS SUMMARY | 2024-03-19 13:26 | XMS_ITS | CCD ---
Author Organization [facility] Informat ion Partnership [facility] Care Team Providers Care Home Health Rn Name Role Phone RIAN ROSS Admitting Unavailable KIRNRIAN MORALES Attending Unavailable WIECEK, DR TIM Servin Consulting [...] MISC, DR BARRETT Consulting Unavailable KUNS, DR URBAN Del Castillo Attending Unavailable KUNS, DR URBAN Del Castillo Admitting Unavailable FURLONG, DR JORGE LUIS Garrison Primary Care Unavailable WEST, DR TENZIN Cortes Consulting Unavailable KUNS, DR URBAN Del Castillo Consulting Unavailable Jorge Luis Whitehead Primary Care Provider Jorge Luis Whitehead DO Primary Care Provider Jorge Luis Whitehead DO Primary Care Provider Gabi Gaona Unavailable Aaron Whitehead DOnis Mindi Primary Care Provider PremalvaroDO Jorge Luis zapien Primary Care Provider MD Simin Lama Attending Provider MATTY ANANDARTH Attending Unavailable KUNTE, DRAKE Referring Unavailable PREMLONG, JORGE LUIS MINDI Primary Care Unavailab le KUNTE, DRAKE Referring Unavailable PREMLONG, JORGE LUIS MINDI Primary Care Unavailab le HUNTERLOU, SIMIN Attending Unavailable KUNTE, DRAKE Referring Unavailable PREMLONG, JORGE LUIS MINDI Primary Care Unavailab le Karyarelylou, Simin Admitting Unavailable Simin Lama Attending Unavailable Premrupali, Jorge Luis Primary Care Unavailable Anali MELCHOR, Amanda Primary Care Provider Pattie BEAM SEALER, Linette Unavailable Amanda Briones MD Unavailable Lauro MELCHOR, Jack Devries Primary Care Provider ELOISE GALICIA Attending Unavailable JACK ROGEL Primary Care Unavailab ELOISE Villafana Referring Unavailable JACK ROGEL Primary Care Unavailab jairo Alfred RUTH, Jorge Luis De Leonard Primary Care Provider Jack Rogel MD Primary Care Provider [phone] JACK ROGEL Attending Unavailable JACK ROGEL Attending Unavailable LINETTE BLANKENSHIP Attending Unavailable JACK ROGEL Attending Unavailable JACK ROGEL Attending Unavailable JACK ROGEL Attending Unavailable JACK ROGEL Attending Unavailable JACK ROGEL Attending Unavailable JACK ROGEL Attending Unavailable Allergies Allergy Classification Reported Allergen(s) Allergy Type Date of Onset Reaction(s) Facility (5 sources) Amino Acids; Translations: [LISINOPRIL] Drug Allergy 04-05-20 21 [facility] Repository (5 sources) Penicillins; Translations: [PENICILLINS] Drug allergy (disorder) 09-21-19 16 Rash [facility] Repository (11 sources) Lisinopril Drug Allergy 04-05-20 21 Unknown, Cough, Other [facility] (2 sources) Penicillins Drug Intolerance 04-05-20 Other: See Comments [facility] (9 sources) Penicillins Drug Intolerance 04-05-20 Other: See Comments, Other [facility] (5 sources) Amino Acids Drug Allergy 02-01-20 Other: See Comments [facility] (1 source) Penicillin V Drug Allergy dizziness, LOC [facility] Other (1 source) Penicillins Drug allergy (disorder) 06-15-19 19 [facility] Repository (3 sources) Amino Acids Drug Allergy 02-01-20 Other [facility] Work Phone: (3 sources) HMG-CoA reductase inhibitor Propensity to adverse reactions 09-09-19 Other [facility] Work Phone: (3 sources) Lisinopril Propensity to adverse reactions 04-05-20 Cough, Other [facility] (3 sources) Penicillins Drug Intolerance 04-05-20 Other [facility] (4 sources) HMG-CoA reductase inhibitor; Translations: [[id number] A REDUCTASE INHIBITORS] Drug Intolerance 09-09-19 Other [facility] Work Phone: Medications Current Medications Medication Drug Class(es) Dates Sig (Normalized) Sig (Original) apixaban 5 mg oral tablet (4 sources) Factor Xa Inhibitor Start: 07-02-2023 End: 07-30-2024 take 1 tablet by mouth in the morning apixaban (Eliquis) 5 MG tablet Indications: Paroxysmal atrial fibrillation (CMS/HCC) Take 1 tablet (5 mg) by mouth in the morning and 1 tablet (5 mg) before bedtime. 60 tablet 09/24/2023 Active aspirin 81 mg chewable tablet (12 sources) Platelet Aggregation Inhibitor, Nonsteroidal Anti-inflammatory Drug Start: 06-14-2018 take 81 mg by mouth once daily Aspirin Active 81 MG PO Daily 0 June 14, 2018 12:00am aspirin 81 mg ca p aspirin low dose 81mg ec Active take 1 tablet by mouth once alessandra y aspirin 81 mg EC tablet Take 1 tablet (81 mg) by mouth once daily. Active aspirin 81 mg ca p aspirin low dose 81mg ec 0 Active Comment on above: aspirin low dose 81m g ec atorvastatin 20 mg oral tablet (3 sources) HMG-CoA Reductase Inhibitor Start: End: 4 take 1 tablet by mouth at bedtime atorvastatin (Lipitor) 20 MG tablet Indications: Acute arterial ischemic stroke, multifocal, posterior circulation, right (CMS/HCC) Take 1 tablet (20 mg) by mouth at bedtime 90 tablet 1 04/18/2023 10/15/2023 Active Start: 06-14-2018 take 80 mg by mouth once daily in the evening Atorvastatin Active 80 MG PO Every evening June 14, 2018 12:00am ezetimibe 10 mg oral tablet (3 sources) Dietary Cholesterol Absorption Inhibitor take 1 tablet by mouth in the morning ezetimibe (Zetia) 10 MG tablet Take 10 mg by mouth in the morning. Active levothyroxine sodium 0.025 mg oral tablet (5 sources) l-Thyroxine Start: 09-24-19 End: 03-22-20 take 1 tablet by mouth once daily levothyroxine (Synthroid) 25 MCG tablet Indications: Hypothyroidism (acquired) (CMS/HCC) Take 1 tablet (25 mcg) by mouth Daily Take on an empty stomach 90 tablet 1 09/24/2023 03/22/2024 Active Start: 03-20-2023 End: 06-18-2023 take 1 tablet by mouth once daily [...] 400 mg oral tablet (2 sources) Start: 07-02-2023 End: 07-01-2024 take 1 tablet by mouth twice daily magnesium oxide (Mag-Ox) 400 mg tablet Indications: Paroxysmal atrial fibrillation (Multi) , History of AL (myocardial infarction) Take 1 tablet (400 mg) by mouth 2 times a day. 180 tablet 3 07/02/2023 07/01/2024 Active metFORMIN hydrochloride 500 mg oral tablet (1 source) Biguanide Start: 06-14-2018 take 250 mg by mouth twice daily Metformin Active 250 MG PO Twice daily June 14, 2018 12:00am 24 hr metoprolol succinate 25 mg extended release oral tablet (2 sources) beta-Adrenergic Leela Start: 07-02-2023 End: 07-01-2024 take 1 tablet by mouth once daily metoprolol succinate XL (Toprol-XL) 25 mg 24 hr tablet Indications: Paroxysmal atrial fibrillation (Multi) , Primary hypertension Take 1 tablet (25 mg) by mouth once daily. Do not crush or chew. 90 tablet 3 07/02/2023 07/01/2024 Active mometasone furoate 1 mg/ml topical cream (5 sources) Corticosteroid Start: 02-11-2024 End: 03-12-2024 mometasone (Elocon) 0.1 % cream Indications: Lichen sclerosus Apply 1 application topically Daily 15 g 5 02/11/2024 03/12/2024 Active mometasone (Eloc on) 0.1 % cream Apply 1 Application topically once daily. Active Multiple Vitamin (MULTIVITAM IN ADULT PO) (3 sources) Multiple Vitamin (MULTIVITAMIN ADULT PO) Multivitamin Active Multiple Vitamin (MULTIVITAMIN ADULT PO) Multivitamin 0 Active ondansetron 4 mg disintegrating oral tablet (1 source) Serotonin-3 Receptor Antagonist Start: 08-30-2023 take 1 tablet by mouth every six hours as needed ondansetron ODT (Zofran-ODT) 4 MG disintegrating tablet Take 4 mg by mouth every 6 (six) hours if needed 08/30/2023 Active sacubitril 24 mg / valsartan 26 mg oral tablet (11 sources) Angiotensin 2 Receptor Leela End: 07-02-2023 take 1 tablet by mouth twice daily sacubitril-valsartan (ENTRESTO) 24-26 mg tablet Entresto 24 mg-26 mg tablet TAKE 1 TABLET BY MOUTH TWICE DAILY Active Entresto Active Comment on above: Entresto 24 mg-26 mg tablet TAKE 1 TABLET BY MOUTH TWICE DAILY Completed/Discontinued Medications Medication Drug Class(es) Dates Sig (Normalized) Sig (Original) carvedilol 3.125 mg oral tablet (15 sources) alpha-Adrenergic Leela, beta-Adrenergic Leela Start: 09-24-2023 End: 03-11-2024 take 1 tablet by mouth in the morning carvedilol (Coreg) 3.125 MG tablet Indications: Paroxysmal atrial fibrillation (CMS/HCC) Take 1 tablet (3.125 mg) by mouth in the morning and 1 tablet (3.125 mg) in the evening. Take with meals. 180 tablet 1 09/24/2023 03/11/2024 Discontinued (Reorder) Start: 06-18-2018 End: 07-02-2023 take 1 tablet by mouth in the morning carvedilol (Coreg) 3.125 MG tablet Indications: Primary hypertension (CMS/HCC) Take 1 tablet (3.125 mg) by mouth in the morning and 1 tablet (3.125 mg) in the evening. Take with meals. 180 tablet 0 11/21/2022 Active Comment on above: Take 3.125 mg by dena th twice daily with meals. clopidogrel 75 mg oral tablet (4 sources) P2Y12 Platelet Inhibitor Start: 4 End: 4 take 1 tablet by mouth once daily clopidogrel (Plavix) 75 mg tablet Take 1 tablet (75 mg) by mouth once daily. 0 04/18/2023 07/02/2023 Discontinued (Therapy completed) Start: 06-18-2018 End: 07-13-2019 take 1 tablet by mouth once daily Clopidogrel (Plavix) 75 mg tablet Discontinued 75 MG PO Daily 30 June 18, 2018 12:00am July 12, 2019 [...] do not exceed 3 doses per episode valsartan 40 mg oral tablet (6 sources) Angiotensin 2 Receptor Leela Start: 07-02-2023 End: 07-01-2024 take 1 tablet by mouth once daily valsartan (Diovan) 40 MG tablet Indications: Primary hypertension (CMS/HCC) Take 1 tablet (40 mg) by mouth Daily 90 tablet 1 09/24/2023 03/11/2024 Discontinued (Reorder) Start: 04-03-2023 End: 09-30-2023 take 0.5 tablet by mouth in the morning valsartan (Diovan) 40 MG tablet Indications: Primary hypertension (CMS/HCC) Take 0.5 tablets (20 mg) by mouth in the morning. 45 tablet 1 04/03/2023 09/30/2023 Active warfarin sodium 5 mg oral tablet (1 source) Vitamin K Antagonist Start: 06-18-2018 End: 01-14-2019 take 1 tablet by mouth once daily Warfarin (Coumadin) 5 mg tablet Discontinued 5 MG PO Daily June 18, 2018 12:00am January 13, 2019 11:03pm Problems Active Problems Problem Classification Problem Date Documented Date Episodic/Chronic Acute cerebrovascular disease (13 sources) Ischemic stroke; Translations: [Cerebral infarction due to unspecified occlusion or stenosis of right posterior cerebral artery] Onset: 04-03-2023 05-25-2023 Chronic Acute myocardial infarction (1 source) Myocardial infarction; Translations: [Non-ST elevation (NSTEMI) myocardial infarction] 06-14-2018 Chronic Administrative/social admission (2 sources) Advance directive discussed with patient; Translations: [Other specified counseling] 05-14-2023 Episodic Cancer of breast (19 sources) 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; Translations: [Malignant neoplasm of unspecified site of left female breast] Onset: 04-12-2021 04-12-2021 Chronic Cardiac dysrhythmias (6 sources) Paroxysmal atrial fibrillation; Translations: [Paroxysmal atrial fibrillation] Onset: 06-05-2023 07-02-2023 Chronic Chronic kidney disease (5 sources) Chronic kidney disease stage 3B ; Translations: [Chronic kidney disease, stage 3b (HCC) (CMS/HCC)] Onset: 09-08-2022 05-25-2023 Chronic Conduction disorders (1 source) Long QT syndrome; Translations: [Long QT syndrome] 06-15-2018 Chronic Congestive heart failure; nonhypertensive (1 source) Heart failure, unspecified; Translations: [HEART FAILURE UNSPECIFIED] Onset: 03-28-2021 Chronic Coronary atherosclerosis and other heart disease (16 sources) 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; Translations: [Old myocardial infarction] Onset: 03-28-2021 06-15-2018 Chronic Diabetes mellitus with complications (5 sources) Type 2 diabetes mellitus; Translations: [Type 2 diabetes mellitus with diabetic chronic kidney disease] Onset: 09-08-2022 05-25-2023 Chronic Diabetes mellitus without complication (2 sources) Type 2 diabetes mellitus without complications; Translations: [Diabetes mellitus] Onset: 03-28-2021 06-14-2018 Chronic Diseases of white blood cells (1 source) Lymphocytosis; Translations: [Lymphocytosis (symptomatic)] Chronic Disorders of lipid metabolism (6 sources) Hyperlipidemia, unspecified; Translations: [Dyslipidemia] Onset: 03-28-2021 05-25-2023 Chronic Essential hypertension (11 sources) Hypertensive disorder; Translations: [Essential (primary) hypertension] [...] diseases] Episodic Late effects of cerebrovascular disease (5 sources) Left hemiparesis; Translations: [Hemiplegia and hemiparesis following cerebral infarction affecting left non-dominant side] Onset: 04-03-2023 05-25-2023 Chronic Other aftercare (1 source) Other intermediate (current) drug therapy; Translations: [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] Onset: 03-28-2021 Episodic Other aftercare (1 source) 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 drugs; Translations: [[facility] USE ORAL HYPOGLYCEMIC DX] Onset: 03-28-2021 Episodic Other aftercare (2 sources) Treatment changed; Translations: [Other supervisor intermediates (current) drug therapy] Onset: 07-02-2023 07-02-2023 Episodic Other and ill-defined heart disease (1 source) Takotsubo cardiomyopathy; Translations: [Takotsubo syndrome] 06-15-2018 Chronic Other and ill-defined heart disease (1 source) Left ventricular cardiac dysfunction; Translations: [Heart disease, unspecified] 06-15-2018 Chronic Other hereditary and degenerative nervous system conditions (5 sources) Cerebral ventriculomegaly; Translations: [Degenerative disease of nervous system, unspecified] Onset: 04-03-2023 05-25-2023 Chronic Other nutritional; endocrine; and metabolic disorders (3 [...] breast] Onset: 05-03-2021 Episodic Other skin disorders (3 sources) Lichen sclerosus et atrophicus; Translations: [Circumscribed scleroderma] Onset: 09-08-2022 09-08-2022 Chronic Other skin disorders (4 sources) Localized swelling, mass and lump, left upper limb; Translations: [LOC SWELL MASS LUMP LT UPPER LIMB] Onset: 03-18-2021 Episodic Other upper respiratory infections (1 source) Acute upper respiratory infection, unspecified Episodic Pulmonary heart disease (7 sources) Pulmonary hypertension, unspecified; Translations: [Other chronic [...] Documented Da te Episodic/Chronic Cancer of cervix (3 sources) Atypical squamous cells of undetermined significance on cervical Papanicolaou smear; Translations: [Atypical squamous cells of undetermined significance on cytologic smear of cervix (ASC-US)] Onset: 03-25-2013 Resolved: 05-14-2023 05-14-2023 Episodic Mood disorders (3 sources) Mood disorders Onset: 05-14-2023 05-14-2023 Other circulatory disease (3 sources) History of cardiomyopathy; Translations: [Personal history of other diseases of the circulatory system] Onset: 09-08-2022 09-08-2022 Episodic Other eye disorders (4 sources) Dermatochalasis of unspecified eye, unspecified eyelid; Translations: [DERMATOCHALASIS UNS EYE UNS EYELID] Onset: 11-02-2020 Episodic Other gastrointestinal disorders (3 sources) Slow transit constipation; Translations: [Slow transit constipation] Onset: 09-08-2022 09-08-2022 Episodic Other nervous system disorders (5 sources) 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; Translations: [White matter disease, unspecified] Onset: 04-03-2023 05-25-2023 Episodic Other skin disorders (4 sources) Localized swelling, mass and lump, trunk; Translations: [LOCALIZD SWELLING MASS AND LUMP TRUNK] Onset: 01-24-2021 Episodic Unclassified (2 sources) Onset: 07-02-2023 07-02-2023 Results Test Name Value Interpretation Reference Range Facility ALBUMIN, RANDOM URINE W/CREA TININEon 03-05-2024 ALBUMIN, URINE 0.8 mg/dL Normal See Note: [facility] Comment on above: Result Comment: Refe rence Range: Reference Range Not established Performed By: #### 6 517, 496 #### [facility] [place] [address] Cigar Head Perforator: César Dunn MD ALBUMIN/CREATININE RATIO, RANDOM URINE 16 mg/g creat Normal <30 [facility] Comment on above: Result Comment: The ADA defines abnormalities in albumin excretion as follows: Albuminuria Category Result (mg/g creatinine) Normal to Mildly increased <30 Moderately increased 30-299 Severely increased > OR = 300 The ADA recommends that at least two of three specimens collected within a 3-6 month period be abnormal before considering a patient to be within a diagnostic category. Performed By: #### 6 517, 496 #### [facility] [place] [address] Cigar Head Perforator: César Dunn MD Creatinine (U) [Mass/Vol] 49 mg/dL Normal 20-275 [facility] Comment on above: Performed By: #### 6 517, 496 #### [facility] [place] [address] Cigar Head Perforator: César Dunn MD HEMOGLOBIN A1con 03-05-2024 HEMOGLOBIN A1c 6.4 % of total Hgb High <5.7 [facility] Comment on above: Result Comment: For someone without known diabetes, a hemoglobin A1c value between 5.7% and 6.4% is consistent with prediabetes and should be confirmed with a follow-up test. For someone with known diabetes, a value <7% indicates that their diabetes is well controlled. A1c targets should be individualized based on duration of diabetes, age, comorbid conditions, and other considerations. This assay result is consistent with an increased risk of diabetes. Currently, no consensus exists regarding use of hemoglobin A1c for diagnosis of diabetes for children. Performed By: #### 6 517, 496 #### [facility] [address], [address] [place] [address] Cigar Head Perforator: César Dunn MD TRANSTHORACIC ECHO (TTE) [facility] 08-09-2023 TRANSTHORACIC ECHO (TTE) COMPLETE [address], [address] [place] [address] TRANSTHORACIC ECHOCARDIOGRAM REPORT Patient Name: JOHANNY DICKSONPATSY Reading Physician: [id number] Esther Taylor MD Study Date: 08/09/2023 Ordering Provider: [id number] ELOISE GALICIA MRN/PID: [id number] Fellow: Nurse: Date of /Age: 1 1940 / 83 years Barrel Builder: Anna Marie Mckinney RD, T Gender: F Additional Staff: Height: 160.02 cm Admit Date: Weight: 66.23 kg Admission Status: BSA / BMI: 1.69 m2 / 25.86 kg/m2 Department Location: [facility] Blood Pressure: 134 /88 mmHg Study Type: TRANSTHORACIC ECHO (TTE) COMPLETE Diagnosis/ICD: 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; 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 Indication: Paroxysmal Atrial Fibrillation, CAD, HTN, Hyperlipidemia, CKD-Stage III, Previous TIA, Mild Pumonary HTN CPT Codes: Echo Complete w Full [id number] Study Detail: The following Echo studies were [...] mmHg PIEDV: 2.05 m/s PADP: 19.8 mmHg [id number] Esther Taylor MD Electronically signed on 08/09/2023 at 6:28:33 PM Final Normal [facility] US Heart TransthoracicOrdere d By: Esther Taylor on 08-09-2023 Aortic Valve Area by Continuity of Peak Velocity 1.88 cm2 [facility] Work Phone: Aortic Valve Area by Continuity of VTI 2.03 cm2 [facility] Work Phone: AV mn grad 3.0 mmHg [facility] Work Phone: AV pk grad 6.9 mmHg [facility] Work Phone: AV pk lroe 1.31 m/s [facility] Work Phone: LV A4C EF 61.9 [facility] Work Phone: LVIDd 3.76 cm [facility] Work Phone: LVOT diam 2.20 cm [facility] Work Phone: MV avg E/e' ratio 9.00 [facility] Work Phone: MV E/A ratio 0.65 [facility] Work Phone: RVSP 21.0 mmHg [facility] Work Phone: [facility] Work Phone: Heart Transthoracicon [address], [place] [address] TRANSTHORACIC ECHOCARDIOGRAM REPORT Patient Name: JOHANNY FORBES Reading Physician: [id number] Esther Taylor MD Study Date: 08/09/2023 Ordering Provider: [id number] ELOISE GALICIA MRN/PID: [id number] Fellow: Nurse: Date of /Age: 1 1940 / 83 years Barrel Builder: Anna Marie Mckinney RDCS RVT Gender: F Additional Staff: Height: 160.02 cm Admit Date: Weight: 66.23 kg Admission Status: BSA / BMI: 1.69 m2 / 25.86 kg/m2 Department Location: [facility] Blood Pressure: 134 /88 mmHg Study Type: TRANSTHORACIC ECHO (TTE) COMPLETE Diagnosis/ICD: 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; 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 Indication: Paroxysmal Atrial Fibrillation, CAD, HTN, Hyperlipidemia, CKD-Stage III, Previous TIA, Mild Pumonary HTN CPT Codes: Echo Complete w Full Doppler-[id number] Study Detail: The following Echo studies were [...] not included)... Esther Casey MD - 08/09/[address], [address], [place] [address] TRANSTHORACIC ECHOCARDIOGRAM REPORT Patient Name: JOHANNY FORBES Reading Physician: [id number] Esther Taylor MD Study Date: 08/09/2023 Ordering Provider: [id number] ELOISE GALICIA MRN/PID: [id number] Fellow: Nurse: Date of /Age: 1 1940 / 83 years Barrel Builder: Anna Marie Mckinney RDCS, RVT Gender: F Additional Staff: Height: 160.02 cm Admit Date: Weight: 66.23 kg Admission Status: BSA / BMI: 1.69 m2 / 25.86 kg/m2 Department Location: [facility] Blood Pressure: 134 /88 mmHg Study Type: TRANSTHORACIC ECHO (TTE) COMPLETE Diagnosis/ICD: 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; 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 Indication: Paroxysmal Atrial Fibrillation, CAD, HTN, Hyperlipidemia, CKD-Stage III, Previous TIA, Mild Pumonary HTN CPT Codes: Echo Complete w Full Doppler-[id number] Study Detail: The following Echo studies were [...] mmHg PIEDV: 2.05 m/s PADP: 19.8 mmHg [id number] Esther Taylor MD Electronically signed on 08/09/2023 at 6:28:33 PM Final [facility] Work Phone: ECG 12 [place] 07-07-2023 EKG today shows normal sinus rhythm at 80 bpm NJ interval 154 ms QRS duration 104 ms QTc 449 ms minimal voltage criteria for left ventricular hypertrophy pattern of septal myocardial infarction [facility] Work Phone: CNPKenia 05-15-2022 CNPN Telephone (NCCAP) JOHANNY FORBES ([id number]) 1940 F Date Time Provider Department 05/15/22 SIMIN LAMA During your visit today, we recorded the following information about you: Honey Tucker 05/15/2022 1:42 PM Signed Patient is currently at [facility] for her Mammogram. Chrissie is calling to request a new order. 1) Diagnostic Bilateral Mammogram 2) US order (that way they have it if needed) ABDIFATAH/Amarilys: If in agreement, can you please place order PERLITA and I will fax back to her? Thanks! Chrissie: Gladys. [phone] Fax. [phone] Honey Lama MD 05/15/2022 2:11 PM Signed Ordered Honey Tucker 05/15/2022 2:15 PM Signed Faxed order to Chrissie May 15, 2022 2:15 PM Honey Ellisontany Juan Pablo 05/15/2022 2:15 PM Signed Faxed order to Chrissie May 15, 2022 2:15 PM Honey Mayeyvonne Allergies As of Date: 05/15/2022 Noted Allergy Reaction AMINO ACIDS 01/31/2022 14 - Other: See Comments LISINOPRIL 04/05/2021 16 - Unknown PENICILLINS 04/05/2021 14 - Other: See Comments Comments: Dizzy and passed out Date Reviewed: 01/31/2022 Reviewed by: Simin Lama MD - Fully Assessed Reason for Visit: Orders [681] Primary Visit Diagnosis: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 Telephone (SERAFIN) JOHANNY FORBES ([id number]) 1940 F Date Time Provider Department 05/15/22 RU THOMAS During your visit today, we recorded the following information about you: Ru Thomas RN 05/15/2022 2:19 PM Signed Received call from pt stating she is at [facility] and needs mammogram orders sent. Orders faxed [...] Status:Closed by RU THOMAS on 05/15/22 Normal [facility] MM diagnostic mammo BI w/CAD on 05-15-2022 MM diagnostic mammo BI w/CAD [facility] [place] [address] [place] [address] Mammography Report Signed Patient: Johanny Forbes MR#: [id number] : 1940 Acct:[id number] Age/Sex: 82 / F ADM Date: 05/15/22 Loc: [place] Room: Type: [facility] Attending Dr: Simin Lama MD Copies to: [...] DO 05/15/22 1445 Signed By: 05/15/22 1450 [facility] COVID/FLU RT-PCRon 2 SARS-CoV-2 (COVID-19) RNA DEIDRE+probe Ql (Unsp spec) Negative [facility] Other COVID/FLU RT-PCR Negative [facility] Other [facility] 02-13-2022 [facility] JOHANNY FORBES ([id number]) 1940 F Date Time Provider Department 02/13/22 [...] has been scheduled AND notified of appointment. Gerriluan Resendez Allergies As of Date: 02/13/2022 Noted [...] by SHIVA REYES on 02/13/22 [facility] CNOVSPon 01-31-2022 CNOVS Visit (SP) Office (SERAFIN) JOHANNY FORBES ([id number]) 1940 F Date Time Provider Department 01/31/22 3:15 PM SIMIN LAMA During your visit today, we recorded the following information about you: Temperature Pulse Respiration Blood pressure 97.3 degrees 62/minute 16/minute 142/65 Weight Height 70 kg 1.589 m Simin Lama MD 01/31/2022 3:38 PM Signed PATIENT NAME: Johanny Forbes CLINIC NO.: [id number] ATTENDING PHYSICIAN: Simin Lama MD DATE OF [...] metastatic breast carcinoma, 5 cm, ER 0, NJ 0, HER-2 0 by IHC. The tissue was not evaluated for flow cytometry to rule out a lymphoproliferative process. 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 Differential included mammary, skin, urothelial, pancreaticobiliary and pulmonary primaries. ER 0, NJ 0, HER-2 negative by CAMERON. 2021 PET [...] Rectal: Deferred (more content not included)... [facility] (NCCAP) RANDOLPHJOHANNY GARNER ([id number]) 1940 F Date Time Provider Department 01/31/22 SIMIN LAMA [facility] During your visit today, we recorded the following information about you: Honey Tucker 01/31/2022 4:[address] Lama, patient had a previous abnormal L Mammogram and never followed up. He would like L Mammogram completed now. Faxed order to [facility] scheduling per patient's hospital request. Honey Tucker [...] Status:Closed by HONEY TUCKER on 02/01/22 [facility] JOHANNY FORBES ([id number]) 1940 F Date Time Provider Department 01/30/22 [...] Fully Assessed Reason for Visit: Patient Question [6087] Prescriptions as of 01/30/2022 - aspirin 81 [...] Status:Closed by AMANDA HENDERSON on 01/30/22 Normal [facility] CNCOon 11-07-2021 CNCO Letter Text Normal [facility] CBC W Auto Differential pane l (Bld)on 07-28-2021 Basophils (Bld) [#/Vol] 0.03 10*3/uL Normal <0.11 [facility] Comment on above: Order Comment: Speci men Type: BLOOD SPECIMENOrdering Facility: [facility] Address: [address] [place] [address] Performed By: #### 5 7021-8 ####[facility] LABCLIA [id number] [place] [address] Basophils/100 WBC (Bld) 0.4 % Normal [facility] Comment on above: Order Comment: Speci men Type: BLOOD SPECIMENOrdering Facility: [facility] Address: [address] [place] [address] Performed By: #### 5 7021-8 ####[facility] LABCLIA [id number] [place] [address] Differential cell count method Nom (Bld) Auto Normal [facility] Comment on above: Order Comment: Speci men Type: BLOOD SPECIMENOrdering Facility: [facility] Address: [address] [place] [address] Performed By: #### 5 7021-8 ####[facility] LABCLIA [id number] [place] [address] Eosinophils (Bld) [#/Vol] 0.29 10*3/uL Normal <0.46 [facility] Comment on above: Order Comment: Speci men Type: BLOOD SPECIMENOrdering Facility: [facility] Address: [address] [place] [address] Performed By: #### 5 7021-8 ####[facility] LABCLIA [id number] [place] [address] Eosinophils/100 WBC (Bld) 3.7 % Normal [facility] Comment on above: Order Comment: Speci men Type: BLOOD SPECIMENOrdering Facility: [facility] Address: [address] [place] [address] Performed By: #### 5 7021-8 ####[facility] LABCLIA [id number] [place] [address] Erythrocyte distribution width (RBC) [Ratio] 13.2 % Normal 11.5-15.0 [facility] Comment on above: Order Comment: Speci men Type: BLOOD SPECIMENOrdering Facility: [facility] Address: [address] [place] [address] Performed By: #### 5 7021-8 ####[facility] LABIA [id number] [place] [address] Hematocrit (Bld) [Volume fraction] 37.6 % Normal 36.0-46.0 [facility] Comment on above: Order Comment: Speci men Type: BLOOD SPECIMENOrdering Facility: [facility] Address: [address] [place] [address] Performed By: #### 5 7021-8 ####[facility] LABIA [id number] [place] [address] Hemoglobin (Bld) [Mass/Vol] 12.1 g/dL Normal 11.5-15.5 [facility] Comment on above: Order Comment: Speci men Type: BLOOD SPECIMENOrdering Facility: [facility] Address: [address] [place] [address] Performed By: #### 5 7021-8 ####[facility] LABIA [id number] [place] [address] IMMATURE GRAN % 0.3 % Normal [facility] Comment on above: Order Comment: Speci men Type: BLOOD SPECIMENOrdering Facility: [facility] Address: [address] [place] [address] Performed By: #### 5 7021-8 ####[facility] LABCLIA [id number] [place] [address] IMMATURE GRAN ABS <0.03 Normal <0.10 [facility] Comment on above: Order Comment: Speci men Type: BLOOD SPECIMENOrdering Facility: [facility] Address: [address] [place] [address] Performed By: #### 5 7021-8 ####[facility] LABCLIA [id number] [place] [address] Lymphocytes (Bld) [#/Vol] 3.28 10*3/uL Normal 1.00-4.00 [facility] Comment on above: Order Comment: Speci men Type: BLOOD SPECIMENOrdering Facility: [facility] Address: [address] [place] [address] Performed By: #### 5 7021-8 ####[facility] LABCLIA [id number] [place] [address] Lymphocytes/100 WBC (Bld) 41.8 % Normal [facility] Comment on above: Order Comment: Speci men Type: BLOOD SPECIMENOrdering Facility: [facility] Address: [address] [place] [address] Performed By: #### 5 7021-8 ####[facility] LABCLIA [id number] [place] [address] MCH (RBC) [Entitic mass] 30.0 pg Normal 26.0-34.0 [facility] Comment on above: Order Comment: Speci men Type: BLOOD SPECIMENOrdering Facility: [facility] Address: [address] [place] [address] Performed By: #### 5 7021-8 ####[facility] LABCLIA [id number] [place] [address] MCHC (RBC) [Mass/Vol] 32.2 g/dL Normal 30.5-36.[address] [facility] Comment on above: Order Comment: Speci men Type: BLOOD SPECIMENOrdering Facility: [facility] Address: [address] [place] [address] Performed By: #### 5 7021-8 ####[facility] LABCLIA [id number] [place] [address] MCV (RBC) [Entitic vol] 93.3 fL Normal 80.0-100.0 [facility] Comment on above: Order Comment: Speci men Type: BLOOD SPECIMENOrdering Facility: [facility] Address: [address] [place] [address] Performed By: #### 5 7021-8 ####[facility] LABCLIA [id number] [place] [address] Monocytes (Bld) [#/Vol] 0.46 10*3/uL Normal <0.87 [facility] Comment on above: Order Comment: Speci men Type: BLOOD SPECIMENOrdering Facility: [facility] Address: [address] [place] [address] Performed By: #### 5 7021-8 ####[facility] LABCLIA [id number] [place] [address] Monocytes/100 WBC (Bld) 5.9 % Normal [facility] Comment on above: Order Comment: Speci men Type: BLOOD SPECIMENOrdering Facility: [facility] Address: [address] [place], [place] [address] Performed By: #### 5 7021-8 ####[facility] LABCLIA [id number] [place] [address] Neutrophils (Bld) [#/Vol] 3.77 10*3/uL Normal 1.45-7.50 [facility] Comment on above: Order Comment: Speci men Type: BLOOD SPECIMENOrdering Facility: [facility] Address: [address] [place], [place] [address] Performed By: #### 5 7021-8 ####[facility] LABCLIA [id number] [place] [address] Neutrophils/100 WBC (Bld) 47.9 % Normal [facility] Comment on above: Order Comment: Speci men Type: BLOOD SPECIMENOrdering Facility: [facility] Address: [address] [place] [address] Performed By: #### 5 7021-8 ####[facility] LABCLIA [id number] [place] [address] Nucleated RBC (Bld) [#/Vol] 10*3/uL Normal <0.01 [facility] Comment on above: Order Comment: Speci men Type: BLOOD SPECIMENOrdering Facility: [facility] Address: [address] [place] [address] Performed By: #### 5 7021-8 ####[facility] LABIA [id number] [place] [address] Nucleated RBC/100 WBC (Bld) [Ratio] 0.0 /100 WBC Normal [facility] Comment on above: Order Comment: Speci men Type: BLOOD SPECIMENOrdering Facility: [facility] Address: [address] [place] [address] Performed By: #### 5 7021-8 ####[facility] LABIA [id number] [place] [address] Platelet mean volume (Bld) [Entitic vol] 10.6 fL Normal 9.0-12.7 [facility] Comment on above: Order Comment: Speci men Type: BLOOD SPECIMENOrdering Facility: [facility] Address: [address] [place] [address] Performed By: #### 5 7021-8 ####[facility] LABIA [id number] [place] [address] Platelets (Bld) [#/Vol] 259 10*3/uL Normal 150-400 [facility] Comment on above: Order Comment: Speci men Type: BLOOD SPECIMENOrdering Facility: [facility] Address: [address] [place] [address] Performed By: #### 5 7021-8 ####[facility] LABCLIA [id number] [place] [address] RBC (Bld) [#/Vol] 4.03 10*6/uL Normal 3.90-5.20 [facility] Comment on above: Order Comment: Speci men Type: BLOOD SPECIMENOrdering Facility: [facility] Address: [address] [place] [address] Performed By: #### 5 7021-8 ####[facility] LABCLIA [id number] [place] [address] WBC (Bld) [#/Vol] 7.85 10*3/uL Normal 3.70-11.00 [facility] Comment on above: Order Comment: Speci men Type: BLOOD SPECIMENOrdering Facility: [facility] Address: [address] [place] [address] Performed By: #### 5 7021-8 ####[facility] LABCLIA [id number] [place] [address] Abs Immature Gran <0.03 <0.10 k/uL [facility] Basophils (Bld) [#/Vol] 0.03 10*3/uL <0.11 k/uL [facility] Basophils/100 WBC (Bld) 0.4 % [facility] Differential cell count method Nom (Bld) Auto [facility] Eosinophils (Bld) [#/Vol] 0.29 10*3/uL <0.46 k/uL [facility] Eosinophils/100 WBC (Bld) 3.7 % [facility] Erythrocyte distribution width (RBC) [Ratio] 13.2 % 11.5 - 15.0 % [facility] Hematocrit (Bld) [Volume fraction] 37.6 % 36.0 - 46.0 % [facility] Hemoglobin (Bld) [Mass/Vol] 12.1 g/dL 11.5 - 15.5 g/dL [facility] Immature Gran % 0.3 % [facility] Lymphocytes (Bld) [#/Vol] 3.28 10*3/uL 1.00 - 4.00 k/uL [facility] Lymphocytes/100 WBC (Bld) 41.8 % [facility] MCH (RBC) [Entitic mass] 30.0 pg 26.0 - 34.[address] [facility] MCHC (RBC) [Mass/Vol] 32.2 g/dL 30.5 - 36.0 g/dL [facility] MCV (RBC) [Entitic vol] 93.3 fL 80.0 - 100.[address] [facility] Monocytes (Bld) [#/Vol] 0.46 10*3/uL <0.87 k/uL [facility] Monocytes/100 WBC (Bld) 5.9 % [facility] Neutrophils (Bld) [#/Vol] 3.77 10*3/uL 1.45 - 7.50 k/uL [facility] Neutrophils/100 WBC (Bld) 47.9 % [facility] Nucleated RBC (Bld) [#/Vol] 10*3/uL <0.01 k/uL [facility] Nucleated RBC/100 WBC (Bld) [Ratio] 0.0 /[address] [facility] Platelet mean volume (Bld) [Entitic vol] 10.6 fL 9.0 - 12.[address] [facility] Platelets (Bld) [#/Vol] 259 10*3/uL 150 - 400 k/uL [facility] RBC (Bld) [#/Vol] 4.03 10*6/uL 3.90 - 5.2 0 m/uL [facility] WBC (Bld) [#/Vol] 7.85 10*3/uL 3.70 - 11.00 k/uL [facility] CNOVSPon 07-28-2021 CNOVSP Visit (SP) Office (HEMASA) JOHANNY FORBES ([id number]) 1940 F Date Time Provider Department 07/28/21 [...] metastatic breast carcinoma, 5 cm, ER 0, NJ 0, HER-2 0 by IHC. The tissue was not evaluated for flow cytometry to rule out a lymphoproliferative process. 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 Differential included mammary, skin, urothelial, pancreaticobiliary and pulmonary primaries. ER 0, NJ 0, HER-2 negative by CAMERON. ? 2021 [...] today. Fo (more content not included)... Normal [facility] Comprehensive metabolic 2000 panelon 07-28-2021 Albumin [Mass/Vol] 4.2 g/dL Normal 3.9-4.9 [facility] Comment on above: Order Comment: Speci men Type: BLOOD SPECIMENOrdering Facility: [facility] Address: [address] [place] [address] Performed By: #### 2 4323-8 ####[facility] LABCLIA [id number] [place] [address] ALP [Catalytic activity/Vol] 72 U/L Normal 34-123 [facility] Comment on above: Order Comment: Speci men Type: BLOOD SPECIMENOrdering Facility: [facility] Address: [address] [place] [address] Performed By: #### 2 4323-8 ####[facility] LABCLIA [id number] [place] [address] ALT [Catalytic activity/Vol] 7 U/L Normal 7-38 [facility] Comment on above: Order Comment: Speci men Type: BLOOD SPECIMENOrdering Facility: [facility] Address: [address] [place] [address] Performed By: #### 2 4323-8 ####[facility] LABCLIA [id number] [place] [address] Anion gap [Moles/Vol] 7 mmol/L Low 9-[address] [facility] Comment on above: Order Comment: Speci men Type: BLOOD SPECIMENOrdering Facility: [facility] Address: [address] [place] [address] Performed By: #### 2 4323-8 ####[facility] LABCLIA [id number] [place] [address] AST [Catalytic activity/Vol] 17 U/L Normal 13-35 [facility] Comment on above: Order Comment: Speci men Type: BLOOD SPECIMENOrdering Facility: [facility] Address: [address] [place] [address] Performed By: #### 2 4323-8 ####[facility] LABCLIA [id number] [place] [address] Bilirubin [Mass/Vol] 0.4 mg/dL Normal 0.2-1.3 [facility] Comment on above: Order Comment: Speci men Type: BLOOD SPECIMENOrdering Facility: [facility] Address: [address] [place] [address] Performed By: #### 2 4323-8 ####[facility] LABCLIA [id number] [place] [address] Calcium [Mass/Vol] 9.8 mg/dL Normal 8.5-10.2 [facility] Comment on above: Order Comment: Speci men Type: BLOOD SPECIMENOrdering Facility: [facility] Address: [address] [place] [address] Performed By: #### 2 4323-8 ####[facility] LABCLIA [id number] [place] [address] Chloride [Moles/Vol] 105 mmol/L Normal 97-105 [facility] Comment on above: Order Comment: Speci men Type: BLOOD SPECIMENOrdering Facility: [facility] Address: [address] [place] [address] Performed By: #### 2 4323-8 ####[facility] LABCLIA [id number] [place] [address] CO2 [Moles/Vol] 26 mmol/L Normal 22-30 [facility] Comment on above: Order Comment: Speci men Type: BLOOD SPECIMENOrdering Facility: [facility] Address: [address] [place] [address] Performed By: #### 2 4323-8 ####[facility] LABCLIA [id number] [place] [address] Creatinine [Mass/Vol] 1.31 mg/dL High 0.58-0.[address] [facility] Comment on above: Order Comment: Joseline beebe Type: BLOOD SPECIMENOrdering Facility: [facility] Address: [address] [place] [address] Performed By: #### 2 4323-8 ####[facility] LABCLIA [id number] [place] [address] ESTIMATED GLOMERULAR FILTRATION RATE 41 mL/min/1.73m??? Low >=60 [facility] Comment on above: Order Comment: Joseline beebe Type: BLOOD SPECIMENOrdering Facility: [facility] Address: [address] [place] [address] Result Comment: Nereyda mated Glomerular Filtration Rate [...] actual GFR. Performed By: #### 2 4323-8 ####[facility] LABIA [id number] [place] [address] Glucose [Mass/Vol] 129 mg/dL High 74-99 [facility] Comment on above: Order Comment: Joseline beebe Type: BLOOD SPECIMENOrdering Facility: [facility] Address: [address] [place] [address] Result Comment: The [place] [employer] (ADA) provides guidance for cutoff [...] Standards of Medical Care in Diabetes 2016, [place] [employer]. Diabetes Care. 2016.39(Suppl 1). Performed By: #### 2 4323-8 ####[facility] LABCLIA [id number] [place] [address] Potassium [Moles/Vol] 4.6 mmol/L Normal 3.7-5.[address] [facility] Comment on above: Order Comment: Speci men Type: BLOOD SPECIMENOrdering Facility: [facility] Address: [address] [place] [address] Performed By: #### 2 4323-8 ####[facility] LABIA [id number] [place] [address] Protein [Mass/Vol] 7.5 g/dL Normal 6.3-8.0 [facility] Comment on above: Order Comment: Speci men Type: BLOOD SPECIMENOrdering Facility: [facility] Address: [address] [place] [address] Performed By: #### 2 4323-8 ####[facility] LABIA [id number] [place] [address] Sodium [Moles/Vol] 138 mmol/L Normal 136-144 [facility] Comment on above: Order Comment: Speci men Type: BLOOD SPECIMENOrdering Facility: [facility] Address: [address] [place] [address] Performed By: #### 2 4323-8 ####[facility] LABCLIA [id number] [place] [address] Urea nitrogen [Mass/Vol] 22 mg/dL High 7-21 [facility] Comment on above: Order Comment: Speci men Type: BLOOD SPECIMENOrdering Facility: [facility] Address: [address] [place] [address] Performed By: #### 2 4323-8 ####[facility] LABCLIA [id number] [place] [address] FLOW CYTOMETRY REFLEXon 04-1 CASE REPORT Normal [facility] Comment on above: Order Comment: Speci men Type: BLOOD SPECIMENOrdering Facility: [facility] Address: [address] [place] [address] Result Comment: Flow Cytometry Case: [id number] Authorizing Provider: Drake Anand MD Collected: 07/28/2021 02:03 PM Ordering Location: Laboratory Medicine Received: 07/29/2021 12:43 PM Pathologist: Tang Oquendo MD Specimen: BLOOD Performed By: #### F LOWREFLEX ####[facility] LABCLIA [id number] [address] GROSS DESCRIPTION A. BLOOD. Normal [facility] Comment on above: Order Comment: Speci men Type: BLOOD SPECIMENOrdering Facility: [facility] Address: [address] [place] [address] Result Comment: Rece ived 4ml of peripheral blood in EDTA. Performed By: #### F LOWREFLEX ####[facility] LABIA [id number] [address] INTERPRETATION Normal [facility] Comment on above: Order Comment: Speci men Type: BLOOD SPECIMENOrdering Facility: [facility] Address: [address] [place] [address] Result Comment: Spec imen type: BLOOD CBC [...] Negative CD200 B-cells Positive FMC7 B-cells Positive [place]/Lambda B-cells Monotypic kappa Flow cytometric analysis of [...] developed and its performance characteristics determined by [facility]???s Vignesh [facility] Pathology and Laboratory Medicine [place] ([facility]). It has not been cleared or approved by the FDA. [facility] is regulated under CLIA as qualified to perform high-complexity testing. This test is used for clinical purposes. It should not be regarded as investigational or for research. KST/BB 07/29/21 Diagnostic interpretation performed at [facility], [address] [place] [id number] CLIA# [id number] Machine Bobbin Winder: Bharath Light M.D. Performed By: #### F LOWREFLEX ####[facility] LABCLIA [id number] [address] PERIPHERAL BLOOD LOW GRADE L EUK MARKERS FCon 07-28-2021 FLOW CYTOMETRY ORDER STATUS See Results in chart under F case ID Normal [facility] Comment on above: Order Comment: Speci men Type: BLOOD SPECIMENOrdering Facility: [facility] Address: [address] [place] [address] Performed By: #### P BLGLY ####[facility] LABCLIA [id number] [address] [facility] CNPNon 07-22-2021 CNPN Telephone (HEMASA) JOHANNY FORBES ([id number]) 1940 F Date Time Provider Department 07/22/21 [...] discuss further. She can be reached at [phone]. ROSA ELENA Esteban MD 07/22/2021 2:38 PM Signed I spoke with the patient regarding previous recommendations. I have asked her to come and see me in clinic next week at her convenience. PSS-could you please arrange for that? Thanks, MARIE Thao [place] Sec 07/22/2021 2:49 PM Signed Scheduled patient for next week for appointment spoke with gabriel Allergies As of Date: 07/22/2021 Noted Allergy Reaction LISINOPRIL 04/05/2021 16 - Unknown PENICILLINS 04/05/2021 14 - Other: See Comments Comments: Dizzy and passed out Date Reviewed: 05/12/2021 Reviewed by: Grisel Schaffer - Fully Assessed Reason for Visit: Patient Question [6118] Prescriptions as of 07/22/2021 - aspirin 81 [...] Encounter Status:Closed by RU BLACKMAN on 07/22/21 [facility] Aniket 07-01-2021 CNPN Telephone (SERAFIN) JOHANNY FORBES ([id number]) 1940 F Date Time Provider Department 07/01/21 RU BLACKMAN During your visit today, we recorded the following information about you: Ru Blackman RN 07/01/2021 2:07 PM Signed Received call from pt wanting to know if Dr Anand got her results for the genetic testing on her tumor? BHUPENDRAK: Any message for pt? Or she can be reached at [phone]. ROSA ELENA Esteban MD 07/01/2021 2:49 PM [...] Status:Closed by RU BLACKMAN on 07/04/21 Normal [facility] MG MAMM DIAGNOSTIC 3D COY CA Don 05-03-2021 MG MAMM DIAGNOSTIC 3D COY CAD Patient: JOHANNY FORBES Exam Date: 05/03/2021 : 1940 Gender:F Ordering : DRAKE ANAND Admission #: [id number] Family : DR JORGE LUIS WHITEHEAD Order #: [id number] CLICK HERE TO VIEW EXAM RADIOLOGY REPORT PROCEDURE: MAMMOGRAM DIAGNOSTIC 3D BILATERAL CAD COMPARISON: MAMMO SCREEN DIG COY, 01/22/2012. INDICATIONS: Secondary malignant neoplasm of axilla Calculator Name NCI Breast Cancer Risk Assessment Tool 5 Year Breast Cancer Risk n/a% Lifetime Breast Cancer Risk n/a% Personal Breast Cancer Yes Personal Ovarian Cancer No Treatments None Family Cancers None LOCATION: [facility] BREAST COMPOSITION: Scattered areas fibroglandular density. FINDINGS: [...] MD on 05/03/2021 at 14:29 Normal [facility] PET+CT Guidance for localiza tion of tumor of Skull base to mid-thigh-- W 18F-FDG Michael 04-26-2021 IMPRESSION: 1. NECK: * No FDG avid neoplastic [...] * No suspicious FDG avid osseous lesion. Transcribe Date/Time: 2021 2:16P Dictated by: ART MCCULLOUGH MD This examination was interpreted and the report reviewed and electronically signed by: TOM RODAS MD on Apr 26 2021 8:44AM EST Thank you for allowing us to participate in the care of your patient. Should there be any questions regarding this interpretation, please call [phone]. If you are unable to reach us at the number above, please feel free to contact [facility] at [phone]. 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 INDICATION: Study performed for initial treatment strategy. TECHNIQUE: F18-FDG administered IV was followed about 60 minutes later by PET imaging from eyes to proximal thighs. Free breathing low dose CT was performed without contrast for attenuation correction and anatomic localization. Blood glucose before FDG injection: 155 mg/dL FDG radionuclide dose: 10.[address] Dose-Length Product (DLP): 221 mGy*cm. CT Dose Reduction Employed: Automated exposure control COMPARISON: No prior PET/CT for comparison. CORRELATION: None. RESULT: - Mediastinum blood pool activity: Max SUV: 3.3 - Background liver activity: Max SUV: 3.7 HEAD AND NECK: Physiologic uptake seen in the visualized brain, extraocular muscles, parapharyngeal soft tissues, base of tongue, vocal cords, and salivary glands. No FDG avid cervical lymphadenopathy or mass. No FDG avid thyroid lesion. CHEST: Chest wall and axilla: Few FDG avid left axillary lymphadenopathy with adjacent inflammatory changes, likely related to recent biopsy. Index lesions with short axis measurements are as follows: * 1.1 cm left subpectoral node (Max SUV 6.7) (4:86) * 1 cm left axillary node (Max SUV 3.1) Lungs and tracheobronchial tree and pleura: No FDG avid consolidation or FDG avid pulmonary nodule. Bibasilar atelectasis/scarring. Calcified granulomata in the right lower lobe, measuring up to 0.7 cm. Few subcentimeter non-FDG avid nodules in both lungs, for example 0.5 cm left lower lobe nodule (4:120). Note that PET/CT is not sensitive for pulmonary nodules less than 8 mm. No FDG avid pleural effusion or pleural mass. Mediastinum and Lymph nodes: No FDG avid mediastinal mass, mediastinal or hilar lymphadenopathy. Scattered subcentimeter mediastinal lymph nodes with no discrete FDG uptake. Heart and great vessels: Physiologic uptake in the heart. Atherosclerosis at the aortic arch. ABDOMEN AND PELVIS: Physiologic uptake seen in the and GI tracts. Liver: No FDG avid lesion. Biliary: Gallbladder is unremarkable. Spleen: No FDG avid lesion. No splenomegaly. Multiple subcentimeter calcified granulomata. Pancreas: No FDG avid lesion. Adrenals: No FDG avid lesion. Kidneys: No stones, hydronephrosis, or FDG avid lesions. GI tract: No dilation or focal suspicious FDG avid lesion. Lymph nodes: No FDG avid abdominal or pelvic lymphadenopathy. Mesentery/Peritoneum: No ascites or FDG avid mass. Vasculature: Atherosclerotic calcifications of the abdominal aorta and iliac vessels. 3.7 cm infrarenal aortic aneurysm and 1.9 cm right common iliac aneurysm. 1.5 cm lesion adjacent to the splenic hilum likely an aneurism. Pelvis: No ascites, fluid collection or FDG avid process. BONES AND EXTREMITIES: No suspicious FDG avid osseous lesion. The imaged portions of the skeleton demonstrates age-related degenerative changes. Subcutaneous fat stranding with mild FDG avidity along the left axillary region, likely due to recent biopsy. No destructive osseous lesions. Projection Engineer (topogram) images: No additional findings. 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 INDICATION: Study performed for initial treatment strategy. TECHNIQUE: F18-FDG administered IV was followed about 60 minutes later by PET imaging from eyes to proximal thighs. Free breathing low dose CT was performed without contrast for attenuation correction and anatomic localization. Blood glucose before FDG injection: 155 mg/dL FDG radionuclide dose: 10.[address] Dose-Length Product (DLP): 221 mGy*cm. CT Dose Reduction Employed: Automated exposure control COMPARISON: No prior PET/CT for comparison. CORRELATION: None. RESULT: - Mediastinum blood pool activity: Max SUV: 3.3 - Background liver activity: Max SUV: 3.7 HEAD AND NECK: Physiologic uptake seen in the visualized brain, extraocular muscles, parapharyngeal soft tissues, base of tongue, vocal cords, and salivary glands. No FDG avid cervical lymphadenopathy or mass. No FDG avid thyroid lesion. CHEST: Chest wall and axilla: Few FDG avid left axillary lymphadenopathy with adjacent inflammatory changes, likely related to recent biopsy. Index lesions with short axis measurements are as follows: * 1.1 cm left subpectoral node (Max SUV 6.7) (4:86) * 1 cm left axillary node (Max SUV 3.1) Lungs and tracheobronchial tree and pleura: No FDG avid consolidation or FDG avid pulmonary nodule. Bibasilar atelectasis/scarring. Calcified granulomata in the right lower lobe, measuring up to 0.7 cm. Few subcentimeter non-FDG avid nodules in both lungs, for example 0.5 cm left lower lobe nodule (4:120). Note that PET/CT is not sensitive for pulmonary nodules less than 8 mm. No FDG avid pleural effusion or pleural mass. Mediastinum and Lymph nodes: No FDG avid mediastinal mass, mediastinal or hilar lymphadenopathy. Scattered subcentimeter mediastinal lymph nodes with no discrete FDG uptake. Heart and great vessels: Physiologic uptake in the heart. Atherosclerosis at the aortic arch. ABDOMEN AND PELVIS: Physiologic uptake seen in the and GI tracts. Liver: No FDG avid lesion. Biliary: Gallbladder is unremarkable. Spleen: No FDG avid lesion. No splenomegaly. Multiple subcentimeter calcified granulomata. Pancreas: No FDG avid lesion. Adrenals: No FDG avid lesion. Kidneys: No stones, hydronephrosis, or FDG avid lesions. GI tract: No dilation or focal suspicious FDG avid lesion. Lymph nodes: No FDG avid abdominal or pelvic lymphadenopathy. Mesentery/Peritoneum: No ascites or FDG avid mass. Vasculature: Atherosclerotic calcifications of the abdominal aorta and iliac vessels. 3.7 cm infrarenal aortic aneurysm and 1.9 cm right common iliac aneurysm. 1.5 cm lesion adjacent to the splenic hilum likely an aneurism. Pelvis: No ascites, fluid collection or FDG avid process. BONES AND EXTREMITIES: No suspicious FDG avid osseous lesion. The imaged portions of the skeleton demonstrates age-related degenerative changes. Subcutaneous fat stranding with mild FDG avidity along the left axillary region, likely due to recent biopsy. No destructive osseous lesions. Projection Engineer (topogram) images: No additional findings. IMPRESSION IMPRESSION: 1. NECK: * No FDG avid neoplastic [...] * No suspicious FDG avid osseous lesion. Transcribe Date/Time: 2021 2:16P Dictated by: ART MCCULLOUGH MD This examination was interpreted and the report reviewed and electronically signed by: TOM RODAS MD on Apr 26 2021 8:44AM EST Thank you for allowing us to participate in the care of your patient. Should there be any questions regarding this interpretation, please call [phone]. If you are unable to reach us at the number above, please feel free to contact [facility] at [phone]. [facility] PET+CT Guidance for localiza tion of tumor of Skull base to mid-thigh-- W 18F-FDG IVOrdered By: Ccf Provider on 04-26-[address] [facility] GLUCOSE, BLOOD (POC)on 04-25 Glucose [Mass/Vol] 155 mg/dL Abnormal 74 - 99 mg/dL [facility] Comment on above: Location:[facility], [address] [place] [address] , [place], [place], [facility] The Accu-Chek Inform II glucose meter has not been approved for testing on patients receiving intensive medical intervention or therapy and results from this point of care glucose test should not be used for patient management decisions in these cases. Inaccurate results may also occur from other interfering factors, such as N-acetylcysteine (blood concentrations of greater than 5mg/dL), galactose, extremes of hematocrit (<10 or >65), or high doses of ascorbic acid (vitamin C) greater than 3mg/dL. Consider alternate testing mechanisms (e.g. core lab, blood gas instrument) in the above situations. Interpretation and review of laboratory results Abnormal [facility] PET+CT Guidance for localiza tion of tumor of Skull base to mid-thigh-- W 18F-FDG Michael 2021 Radiology Study observation (narrative) [facility] POINT OF CARE GLUCOSEon 12-0 Glucose [Mass/Vol] 169 mg/dL Critically high 74-106 [facility] Comment on above: Performed By: #### P OCGLUC #### [facility] [address] [place] [address] Dr. Dontae Vallejo CBC AUTO DIFFon 03-14-2021 BASO # 0.1 103/ul Normal 0.0-0.1 [facility] Comment on above: Performed By: #### C BC #### [facility] [address] [place] [address] Dr. Dontae Vallejo Basophils/100 WBC (Bld) 0.6 % Normal 0.2-2.0 [facility] Comment on above: Performed By: #### C BC #### [facility] [address] [place] [address] Dr. Dontae Vallejo EO # 0.4 103/ul Normal 0.0-0.7 [facility] Comment on above: Performed By: #### C BC #### [facility] [address] [place] [address] Dr. Dontae Vallejo Eosinophils/100 WBC (Bld) 4.1 % Normal 0.9-7.0 [facility] Comment on above: Performed By: #### C BC #### [facility] [address] [place] [address] Dr. Dontae Vallejo Erythrocyte distribution width (RBC) [Ratio] 13.1 % Normal 11.0-15.0 [facility] Comment on above: Performed By: #### C BC #### [facility] [address] [place] [address] Dr. Dontae Vallejo Hematocrit (Bld) [Volume fraction] 37.1 % Normal 36.0-48.0 [facility] Comment on above: Performed By: #### C BC #### [facility] [address] [place] [address] Dr. Dontae Vallejo Hemoglobin (Bld) [Mass/Vol] 12.1 g/dL Normal 12.0-16.0 [facility] Comment on above: Performed By: #### C BC #### [facility] [address] [place] [address] Dr. Dontae Vallejo IG # 0.03 10e3/ul Normal 0.00-0.03 [facility] Comment on above: Performed By: #### C BC #### [facility] [address] [place] [address] Dr. Dontae Vallejo IG % 0.3 % Normal 0.0-0.5 [facility] Comment on above: Performed By: #### C BC #### [facility] [address] [place] [address] Dr. Dontae Vallejo LYMPH # 4.5 103/ul Critically high 1.2-3.8 [facility] Comment on above: Performed By: #### C BC #### [facility] [address] [place] [address] Dr. Dontae Vallejo Lymphocytes/100 WBC (Bld) 44.8 % Normal 20.5-60.0 [facility] Comment on above: Performed By: #### C BC #### [facility] [address] [place] [address] Dr. Dontae Vallejo MANUAL DIFF REQ NO Normal [facility] Comment on above: Performed By: #### C BC #### [facility] [address] [place] [address] Dr. Dontae Vallejo MCH (RBC) [Entitic mass] 30.3 pg Normal 26.7-34.0 [facility] Comment on above: Performed By: #### C BC #### [facility] [address] [place] [address] Dr. Dontae Vallejo MCHC (RBC) [Mass/Vol] 32.6 g/dL Normal 29.9-35.2 [facility] Comment on above: Performed By: #### C BC #### [facility] [address] [place] [address] Dr. Dontae Vallejo MCV (RBC) [Entitic vol] 92.8 fL Normal 81.0-99.0 [facility] Comment on above: Performed By: #### C BC #### [facility] [address] [place] [address] Dr. Dontae Vallejo MONO # 0.5 103/ul Normal 0.3-0.8 [facility] Comment on above: Performed By: #### C BC #### [facility] [address] [address] [address] Dontae Vallejo Monocytes/100 WBC (Bld) 5.3 % Normal 1.7-12.0 [facility] Comment on above: Performed By: #### C BC #### [facility] [address] [place] [address] Dr. Dontae Vallejo NEUT # 4.5 103/ul Normal 1.4-6.5 [facility] Comment on above: Performed By: #### C BC #### [facility] [address] [place] [address] Dr. Dontae Vallejo Neutrophils/100 WBC (Bld) 44.9 % Normal 43.0-75.0 [facility] Comment on above: Performed By: #### C BC #### [facility] [address] [place] [address] Dr. Dontae Vallejo Platelet mean volume (Bld) [Entitic vol] 9.8 fL Normal 9.5-13.5 [facility] Comment on above: Performed By: #### C BC #### [facility] [address] [place] [address] Dr. Dontae Vallejo PLT 251 103/ul Normal 150-450 [facility] Comment on above: Performed By: #### C BC #### [facility] [address] [place] [address] Dr. Dontae Vallejo RBC 4.00 106/ul Critically low 4.20-5.40 [facility] Comment on above: Performed By: #### C BC #### [facility] [address] [place] [address] Dr. Dontae Vallejo WBC 10.1 103/ul Normal 4.0-11.0 [facility] Comment on above: Performed By: #### C BC #### [facility] [address] [place] [address] Dr. Dontae Vallejo [facility] SARS-CoV-2 (COVID-19) RNA DEIDRE+probe Ql (Unsp spec) Not detected Normal NOT DETECTED [facility] Comment on above: Result Comment: This test is not yet approved or cleared by the [place] FDA. When there are no FDA-approved or cleared tests available, and other criteria are met, FDA can make tests available under an emergency access mechanism called an Emergency Use Authorization (EUA). The EUA for this test is supported by the [place] of Health and Human Service's (HHS's) declaration [...] SARS-CoV-2. Performed By: #### C VDTBH #### [facility] [address] [place] [address] Dr. Dontae Vallejo PROF CHEM 8 (BAS METB)on Anion gap [Moles/Vol] 10.5 mmol/L Normal [facility] Comment on above: Performed By: #### B MP #### [facility] [address] [place] [address] Dr. Dontae Vallejo Calcium [Mass/Vol] 9.5 mg/dL Normal 8.4-10.2 [facility] Comment on above: Performed By: #### B MP #### [facility] [address] [place] [address] Dr. Dontae Vallejo Chloride [Moles/Vol] 104 mmol/L Normal 98-107 [facility] Comment on above: Performed By: #### B MP #### [facility] [address] [place] [address] Dr. Dontae Vallejo CO2 [Moles/Vol] 26.8 mmol/L Normal 22.0-30.0 [facility] Comment on above: Performed By: #### B MP #### [facility] [address] [address] [address] Dontae Vallejo Creatinine [Mass/Vol] 1.51 mg/dL Critically high 0.52-1.04 [facility] Comment on above: Performed By: #### B MP #### [facility] [address] [address] [address] Dontae Vallejo EGFR-AF MALAWIAN 40 mL/min/1.73m2 Critically low >=60 [facility] Comment on above: Performed By: #### B MP #### [facility] [address] [address] [address] Dontae Vallejo EGFR-NON AF MALAWIAN 33 mL/min/1.73m2 Critically low >=60 [facility] Comment on above: Performed By: #### B MP #### [facility] [address] [address] [address] Dontae Vallejo Glucose [Mass/Vol] 145 mg/dL Critically high 74-106 [facility] Comment on above: Performed By: #### B MP #### [facility] [address] [address] [address] Dontae Vallejo Potassium [Moles/Vol] 4.3 mmol/L Normal 3.4-5.0 [facility] Comment on above: Performed By: #### B MP #### [facility] [address] [address] [address] Dontae Vallejo Sodium [Moles/Vol] 137 mmol/L Normal 137-145 [facility] Comment on above: Performed By: #### B MP #### [facility] [address] [address] [address] Dontae Vallejo Urea nitrogen [Mass/Vol] 29.0 mg/dL Critically high 7.0-17.0 [facility] Comment on above: Performed By: #### B MP #### [facility] [address] [address] [address] Dontae Vallejo Urea nitrogen/Creatinine [Mass ratio] 19.2 mg/mg Normal [facility] Comment on above: Performed By: #### B MP #### [facility] [address] [place], [place] [address] Dr. Dontae Vallejo US FINE NDL ASP W US GDNCEon 02-07-2021 US FINE NDL ASP W US GDNCE Begin Addendum #1 COLLECTED DATE/TIME: 01/24/2021 14:27 EDT Final Diagnosis Report for [facility], [place] (A/B) LEFT AXILLA MASS; FINE NEEDLE [...] 2. Pathology results are pending. Normal [facility] LEUKEMIA/LYMPHOMA PROFILEon 01-31-2021 ANALYSIS AND GATING STRATEGY Comment Normal [facility] Comment on above: Result Comment: 8 co geri analysis with 7-AAD, CD45/SSC gating Performed at: -Y Performed By: #### F LOWL #### [facility] [address] [place], [place] [address] Dr. Dontae Vallejo ASSESSMENT OF LEUKOCYTES Comment Normal [facility] Comment on above: Result Comment: Ghulam a and lambda staining cannot be interpreted due to nonspecific light chain binding. A subset of T cells show CD10 expression. CD4:CD8 ratio 2.3 Analysis of the viable lymphoid cells shows: B cells 18%, T cells 82% Performed at: -Y Performed By: #### F LOWL #### [facility] [address] [address] [address] Dontae Vallejo COMMENT Comment Normal [facility] Comment on above: Result Comment: Each antibody in this assay was utilized to assess for potential abnormalities of studied cell populations or to characterize identified abnormalities. . This test was developed and its performance characteristics determined by [employer]. It has not been cleared or approved by the [place]. Food and Drug Administration. . The FDA has determined that such clearance or approval is not necessary. This test is used for clinical purposes. It should not be regarded as investigational or for research. Performed at: TG Performed By: #### F LOWL #### [facility] [address] [address] [address] Dontae Vallejo FLOW COMMENT Comment Normal [facility] Comment on above: Result Comment: Ghulam [...] -Y Performed By: #### F LOWL #### [facility] [address] [address] [address] Dontae Vallejo FLOW INTERPRETATION Comment Normal [facility] Comment on above: Result Comment: B ce ll clonality cannot be evaluated, T cells with CD10 expression in a small subset, low viability specimen, see comment. Performed at: -Y Performed By: #### F LOWL #### [facility] [address] [address] [address] Dontae Vallejo PHENOTYPE CHART Comment Normal [facility] Comment on above: Result Comment: CD2 Normal CD3 Normal CD4 Normal CD5 Normal CD7 Normal CD8 Normal CD10 See Text CD11b Normal CD19 Normal CD20 Normal CD23 Normal CD38 Normal CD45 Normal CD56 Normal CD57 Normal [facility]-7 Normal HLA-DR Normal KAPPA See Text LAMBDA See Text Performed at: -Y Performed By: #### F LOWL #### [facility] [address] [place] [address] Dr. Dontae Vallejo RESULTING PATH NAME Comment Normal [facility] Comment on above: Result Comment: Raul Oliveros M.D. Performed at: -Y Performed By: #### F LOWL #### [facility] [address] [place] [address] Dr. Dontae Vallejo Specimen type Nom (Spec) Comment Normal [facility] Comment on above: Result Comment: Left axillary mass lymph node Performed at: -Y Performed By: #### F LOWL #### [facility] [address] [place] [address] Dr. Dontae Vallejo VIABILITY Comment Normal [facility] Comment on above: Result Comment: [...] -Y Performed By: #### F LOWL #### [facility] [address] [place] [address] Dr. Dontae Vallejo US EXT NON VASC [...] by: TENZIN FERGUSON Date: 2021-01-07 16:37 Normal [facility] CBC AUTO DIFFon 07-20-2021 BASO # 0.1 103/ul Normal 0.0-0.1 [facility] Comment on above: Performed By: #### C BC #### [facility] [address] [id number] Jose Bambi Basophils/100 WBC (Bld) 0.6 % Normal 0.2-2.0 [facility] Comment on above: Performed By: #### C BC #### [facility] [address] [place] [address] Jose Bambi EO # 0.4 103/ul Normal 0.0-0.7 [facility] Comment on above: Performed By: #### C BC #### [facility] [address] [place] [address] Jose Bambi Eosinophils/100 WBC (Bld) 3.7 % Normal 0.9-7.0 [facility] Comment on above: Performed By: #### C BC #### [facility] [address] [place] [address] Jose Bambi Erythrocyte distribution width (RBC) [Ratio] 13.2 % Normal 11.0-15.0 [facility] Comment on above: Performed By: #### C BC #### [facility] [address] [place] [address] Jose Bambi Hematocrit (Bld) [Volume fraction] 36.1 % Normal 36.0-48.0 [facility] Comment on above: Performed By: #### C BC #### [facility] [place] [facility] [address] [place] [address] Jose Bambi Hemoglobin (Bld) [Mass/Vol] 11.7 g/dL Critically low 12.0-16.0 [facility] Comment on above: Performed By: #### C BC #### [facility] [place] [facility] [address] [place], [place] [id number] Jose Bambi IG # 0.03 10e3/ul Normal 0.00-0.03 [facility] Comment on above: Performed By: #### C BC #### [facility] [place] [facility] [address] [place], [place] [id number] Jose Bambi IG % 0.3 % Normal 0.0-0.5 [facility] Comment on above: Performed By: #### C BC #### [facility] [place] [facility] [address] [place], [place] [id number] Jose Bambi LYMPH # 4.4 103/ul Critically high 1.2-3.8 [facility] Comment on above: Performed By: #### C BC #### [facility] [place] [facility] [address] [place] [address] Jose Bambi Lymphocytes/100 WBC (Bld) 44.9 % Normal 20.5-60.0 [facility] Comment on above: Performed By: #### C BC #### [facility] [place] [facility] [address] [place] [address] Jose Lacy MANUAL DIFF REQ NO Normal [facility] Comment on above: Performed By: #### C BC #### [facility] [place] [facility] [address] [place] [address] Josevlad Millarden MCH (RBC) [Entitic mass] 30.5 pg Normal 26.7-34.0 [facility] Comment on above: Performed By: #### C BC #### [facility] [place] [facility] [address] [place] [address] Josevlad Lacy MCHC (RBC) [Mass/Vol] 32.4 g/dL Normal 29.9-35.2 [facility] Comment on above: Performed By: #### C BC #### [facility] [place] [facility] [address] [place] [address] Josevlad Millarden MCV (RBC) [Entitic vol] 94.0 fL Normal 81.0-99.0 [facility] Comment on above: Performed By: #### C BC #### [facility] [place] [facility] [address] [place], [place] [address] Jose Bambi MONO # 0.6 103/ul Normal 0.3-0.8 [facility] Comment on above: Performed By: #### C BC #### [facility] [place] [facility] [address] [place], [place] [address] Jose Bambi Monocytes/100 WBC (Bld) 5.7 % Normal 1.7-12.0 [facility] Comment on above: Performed By: #### C BC #### [facility] [place] [facility] [address] [place], [place] [address] Jose Lacy NEUT # 4.4 103/ul Normal 1.4-6.5 [facility] Comment on above: Performed By: #### C BC #### [facility] [place] [facility] [address] [place], [place] [address] Jose Lacy Neutrophils/100 WBC (Bld) 44.8 % Normal 43.0-75.0 [facility] Comment on above: Performed By: #### C BC #### [facility] [place] [facility] [address] [place], [place] [address] Jose Lacy Platelet mean volume (Bld) [Entitic vol] 11.3 fL Normal 9.5-13.5 [facility] Comment on above: Performed By: #### C BC #### [facility] [place] [facility] [address] [place] [id number] Jose Bambi PLT 239 103/ul Normal 150-450 [facility] [place] Comment on above: Performed By: #### C BC #### [facility] [place] [facility] [address] [place], [place] [address] Jose Bambi RBC 3.84 106/ul Critically low 4.20-5.40 [facility] Comment on above: Performed By: #### C BC #### [facility] [place] [facility] [address] [place], [place] [address] Jose Bambi WBC 9.8 103/ul Normal 4.0-11.0 [facility] Comment on above: Performed By: #### C BC #### [facility] [place] [facility] [address] [place], [place] [address] Josevlad Lacy Vital Signs Date Time Vital Sign Value Performing Clinician Facility 08-09-2023 08:30-0400 Body height [address] 08-09-2023 08:30-0400 Body mass index (BMI) [Ratio] 25.86 kg/m2 [address] 08-09-2023 08:30-0400 Body weight 66.[address] 08-09-2023 08:30-0400 Diastolic blood pressure 88 mm[Hg] [address] 08-09-2023 08:30-0400 Systolic blood pressure 134 mm[Hg] [address] 07-02-2023 13:19-0400 Diastolic blood pressure 90 mm[Hg] Eloise Galicia MD Work Phone: [facility] 07-02-2023 13:19-0400 Systolic blood pressure 138 mm[Hg] Eloise Galicia MD Work Phone: [facility] 07-02-2023 13:18-0400 Body height 160 cm Eloise Galicia MD Work Phone: [facility] 07-02-2023 13:18-0400 Body mass index (BMI) [Ratio] 25.86 kg/m2 Eloise Galicia MD Work Phone: [facility] 07-02-2023 13:18-0400 Body weight 66.22 kg Eloise Galicia MD Work Phone: [facility] 07-02-2023 13:18-0400 Heart rate 80 /min Eloise Galicia MD Work Phone: [facility] 05-14-2023 13:52-0500 Body height 160 cm Jack Rogel MD Work Phone: [facility] 05-14-2023 13:52-0500 Body mass index (BMI) [Ratio] 26.57 kg/m2 Jack Rogel MD Work Phone: [facility] 05-14-2023 13:52-0500 Body weight 68.04 kg Jack Rogel MD Work Phone: [facility] 05-14-2023 13:52-0500 Diastolic blood pressure 70 mm[Hg] Jack Rogel MD Work Phone: [facility] 05-14-2023 13:52-0500 Heart rate 68 /min Jack Rogel MD Work Phone: [facility] 05-14-2023 13:52-0500 SaO2% (BldA) [Mass fraction] 98 % Jack Rogel MD Work Phone: [facility] 05-14-2023 13:52-0500 Systolic blood pressure 122 mm[Hg] Jack Rogel MD Work Phone: [facility] 03-12-2022 12:15-0500 Body height 160.02 cm Gabi Candelaria Other [facility] 03-12-2022 12:15-0500 Body mass index (BMI) [Ratio] 26.57 kg/m2 Gabi Candelaria Other [facility] 03-12-2022 12:15-0500 Body temperature 97.8 [degF] Gabi Candelaria Other [facility] 03-12-2022 12:15-0500 Body weight 68.04 kg Gabi Candelaria Other [facility] 03-12-2022 12:15-0500 Diastolic blood pressure 68 mm[Hg] Gabi Candelaria Other [facility] 03-12-2022 12:15-0500 Respiratory rate 18 /min Gabi Candelaria Other [facility] 03-12-2022 12:15-0500 SaO2% (BldA) [Mass fraction] 98 % Gabi Candelaria Other [facility] 03-12-2022 12:15-0500 Systolic blood pressure 123 mm[Hg] Gabi Candelaria Other [facility] 01-31-2022 15:09-0400 Body height 158.9 cm Simin Lama MD Work Phone: [facility] 01-31-2022 15:09-0400 Body temperature 97.3 [degF] Simin Lama MD Work Phone: [facility] 01-31-2022 15:09-0400 Body weight 70.03 kg Simin Lama MD Work Phone: [facility] 01-31-2022 15:09-0400 Diastolic blood pressure 65 mm[Hg] Simin Lama MD Work Phone: [facility] 01-31-2022 15:09-0400 Heart rate 62 /min Simin Lama MD Work Phone: [facility] 01-31-2022 15:09-0400 Respiratory rate 16 /min Simin Lama MD Work Phone: [facility] 01-31-2022 15:09-0400 SaO2% (BldA) [Mass fraction] 100 % Simin Lama MD Work Phone: [facility] 01-31-2022 15:09-0400 Systolic blood pressure 142 mm[Hg] Simin Lama MD Work Phone: [facility] 07-28-2021 14:24-0400 Body height 158.9 cm Drake Anand MD Work Phone: [facility] 07-28-2021 14:24-0400 Body temperature 97.9 [degF] Drake Anand MD Work Phone: [facility] 07-28-2021 14:24-0400 Body weight 69.94 kg Drake Anand MD Work Phone: [facility] 07-28-2021 14:24-0400 Diastolic blood pressure 74 mm[Hg] Drake Anand MD Work Phone: [facility] 07-28-2021 14:24-0400 Heart rate 56 /min Drake Anand MD Work Phone: [facility] 07-28-2021 14:24-0400 Respiratory rate 18 /min Drake Anand MD Work Phone: [facility] 07-28-2021 14:24-0400 SaO2% (BldA) [Mass fraction] 98 % Drake Anand MD Work Phone: [facility] 07-28-2021 14:24-0400 Systolic blood pressure 150 mm[Hg] Drake Anand MD Work Phone: [facility] Encounters Encounter Date Encounter Type Care Provider Facility Start: 03-11-2024 End: 03-11-2024 Candice Rogel MD Work Phone: [facility] Start: 03-11-2024 End: 03-11-2024 Candice Rogel MD Work Phone: [facility] Start: 03-11-2024 End: 03-11-2024 ambulatory JACK ROGEL Not Available Start: 09-24-2023 End: 09-24-2023 ambulatory JACK ROGEL Not Available Start: 09-05-2023 End: 09-05-2023 ambulatory JACK ROGEL Not Available Start: 08-09-2023 End: 08-10-2023 ambulatory [facility] Start: 08-09-2023 End: 08-09-2023 Subsequent hospital visit by physician Charley Cash Echo/Vasc Room 2 [facility] Comment on above: History of AL (myoca rdial infarction); Acute arterial ischemic stroke, multifocal, posterior circulation, right (Multi) Start: 07-31-2023 End: 07-31-2023 ambulatory JACK ROGEL Not Available Start: 07-02-2023 End: 07-02-2023 ambulatory [facility] Start: 07-02-2023 End: 07-02-2023 Office consultation new/estab patient 80 min Eloise Galicia MD Work Phone: [facility] Comment on above: Paroxysmal atrial fi brillation (CMS/HCC); History of AL (myocardial infarction); Acute arterial ischemic stroke, multifocal, posterior circulation, right (CMS/HCC); BMI 25.0-25.9,adult; Never smoked tobacco; STORMY inhibitor intolerance; Primary hypertension Start: 06-05-2023 End: 06-05-2023 ambulatory JACK ROGEL Not Available Start: 05-14-2023 End: 05-14-2023 Patient encounter procedure Jack Rogel MD Work Phone: [facility] Comment on above: Encounter for Medica re [...] cerebral infarction (CMS/HCC); Coronary artery disease involving nome coronary artery of nome heart without angina pectoris (CMS/HCC); Pulmonary hypertension, mild (CMS/HCC); Chronic kidney disease, stage 3b (HCC) (CMS/HCC); Type 2 diabetes mellitus with stage 3b chronic kidney disease, without long-term current use of insulin (HCC) (CMS/HCC); 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, left (CMS/HCC); Mixed dyslipidemia (CMS/HCC) Start: 05-14-2023 End: 05-14-2023 ambulatory JACK ROGEL Not Available Start: 04-03-2023 End: 04-03-2023 ambulatory JACK ROGEL Not Available Start: 03-16-2023 End: 03-16-2023 ambulatory LINETTE BLANKENSHIP Not Available Start: 05-15-2022 End: 05-15-2022 ambulatory Simin Lama Facility:[facility] Start: 05-15-2022 Telephone encounter Simin stanford MD Work Phone: [facility] Comment on above: Orders Start: 05-15-2022 End: 05-15-2022 ambulatory DO Jorge Luis Whitehead Work Phone: [facility] Work Phone: Start: 05-15-2022 End: 05-15-2022 Patient encounter procedure DO Jorge Luis Whitehead Work Phone: [facility] Work Phone: Start: 03-12-2022 End: 03-12-2022 ambulatory Gabi Gaona Other [facility] Other Start: 03-12-2022 Office outpatient ne w 20 minutes Gabi Gaona [facility] Start: 02-13-2022 Telephone encounter Shiva Bess Hematology/Oncology Comment on above: Appointment Start: 01-31-2022 End: 01-31-2022 ambulatory SIMIN LAMA Facility:[facility] Start: 01-31-2022 End: 01-31-2022 ambulatory Simin Lama MD Work Phone: Hematology/Oncology Comment on above: 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, left (HCC) (Primary Dx) Start: 01-31-2022 End: 01-31-2022 Patient encounter procedure Simin Lama MD Work Phone: [employer] Start: 01-31-2022 Telephone encounter Simin stanford MD Work Phone: [facility] Comment on above: Appointment Start: 07-28-2021 End: 07-28-2021 ambulatory DRAKE ANAND Facility:[facility] Start: 07-28-2021 End: 07-28-2021 ambulatory Drake Anand MD Work Phone: Hematology/Oncology Comment on above: 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, left (HCC) (Primary Dx); Lymphocytosis Start: 07-28-2021 End: 07-28-2021 Patient encounter procedure Drake Anand MD Work Phone: [employer] Start: 07-22-2021 Telephone encounter Ru Blackman RN Hematology/Oncology Comment on above: Patient Question Start: 05-03-2021 End: 05-04-[address] TENZIN FERGUSON Facility:[facility] Start: 2021 End: 2021 Subsequent hospital visit by physician Arrival Time Radiology Work Phone: [facility] Comment on above: Malignant neoplasm o f breast in female, estrogen receptor negative, unspecified laterality, unspecified site of breast (HCC) [C50.919, Z17.1] Start: 04-12-2021 Telephone encounter Amarilys hutton PA-C Work Phone: Hematology/Oncology Comment on above: [employer] Start: 03-19-2021 Encounter for preprocedural cardiovascular examination DR TIM NIÑO [facility] Start: 03-19-2021 Encounter for preprocedural laboratory examination DR TIM NIÑO [facility] Start: 03-18-2021 End: 03-18-[address] [...] scr eening assessment Ru Blackman RN Start: [address] atten uation skull base mid-thigh Drake Anand MD Work Phone: Start: 2021 Gluc bld gluc mntr d ev cleared fda spec home use [facility] Provider Start: 01-22-2019 Echocardiography Plan of Treatment Date Care Activity Detail Author Start: 03-19-2025 Glaucoma screening Diabetes: R etinopathy Screening [facility] Start: 03-04-2025 Urine screening for protein Diabetes: Urine Protein Screening [facility] Start: 07-28-2024 DIABETES SCREEN DIABETES SCREEN [facility] Start: 07-28-2024 Diabetes Screening Diabetes Screenin g [facility] Start: 06-04-2024 Hemoglobin A1c measurement Diabetes: Hemoglobin A1C [facility] Start: 05-14-2024 Medicare Annual Wellness (AWV) Medicare Annual Wellness (AWV) [facility] Start: 04-11-2024 DIABETES SCREEN DIABETES SCREEN [facility] Start: 12-16-2023 Covid-19 Vaccine ( season) Covid-19 Vaccine ( season) [facility] Start: 12-16-2023 Influenza vaccination Influenza Vacc ine (#1) [facility] Start: 09-24-2023 End: 09-24-2023 Patient encounter procedure 09/24/2023 2:00 PM EDT Office Visit [facility] [address] [place] [address] Jack Rogel MD [address] [place] [address] (Fax) [facility] Start: 08-16-2023 End: 08-16-2023 Patient encounter procedure 08/16/2023 1:00 PM EDT Office Visit [facility] [address] [facility] [address] [place] [address] Eloise Galicia MD [address] [facility] [address] [place], [place] [id number] [facility] Start: 07-26-2023 End: 07-26-2023 Patient encounter procedure 07/26/2023 1:30 PM EDT Appointment [facility] [address] [place] [address] [address] [place] [address] [facility] Start: 07-02-2023 End: 07-01-2025 US Heart Transthoracic Transthoracic Echo Complete Echocardiography Routine History of AL (myocardial infarction) Acute arterial ischemic stroke, multifocal, posterior circulation, right (CMS/HCC) Expected: 07/02/2023 (Approximate), Expires: 07/01/2025 [facility] Service Area Work Phone: Comment on above: Expected: 07/02/2023 (Approximate), Expires: 07/01/2025 Start: 06-15-2023 Hemoglobin A1c measurement Diabetes: Hemoglobin A1C [facility] Start: 05-26-2023 COVID-19 Vaccine ( season) COVID-19 Vaccine () [facility] Start: 04-16-2023 Advance Directive Discussion Advance Directive Discussion 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 Start: 04-16-2022 ADVANCE DIRECTIVE DISCUSSION ADVANCE DIRECTIVE DISCUSSION [facility] Start: 04-16-2022 DEPRESSION ASSESSMENT DEPRESSION ASS ESSMENT 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 Start: 04-16-2021 ADVANCE DIRECTIVE DISCUSSION ADVANCE DIRECTIVE DISCUSSION [facility] Start: 04-16-2021 DEPRESSION ASSESSMENT DEPRESSION ASS ESSMENT [facility] Start: 04-01-2021 COVID-19 VACCINE (4 - Booster for Pfizer series) COVID-19 VACCINE (4 - Booster for Pfizer series) [facility] Start: 2016 RSV Vaccine (1 - 1-d ose 75+ series) RSV Vaccine (1 - 1-dose 75+ series) [facility] Start: 2006 BONE DENSITY BONE DENSITY [facility] Start: 2006 Screening for osteoporosis Bone Density Screening [facility] Start: 2001 RSV patient s and/or patients aged 60+ years (1 - 1-dose 60+ series) RSV patients and/or patients aged 60+ years (1 - 1-dose 60+ series) [facility] Start: 1991 SHINGRIX VACCINE (1 of 2) SHINGRIX VACCINE (1 of 2) [facility] Start: 1991 Zoster Vaccines (1 o f 2) Zoster Vaccines (1 of 2) [facility] Start: 1963 DTaP/Tdap/Td Vaccine s (1 - Tdap) DTaP/Tdap/Td Vaccines (1 - Tdap) [facility] Start: 1960 Urine microalbumin profile [facility] Start: 1959 Anxiety Screening Anxiety Screening [facility] Start: 1959 Depression Screening Depression Scre ening 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, left (HCC) Every 3 months for 10 Occurrences starting 07/28/2021 until 07/28/2022, 1 completed [facility] Work Phone: Comment on above: Every 3 months for 1 0 Occurrences starting 07/28/2021 until 07/28/2022, 1 completed End: 07-28-2022 Comprehensive metabolic 2000 panel - Serum or Plasma COMP METABOLIC PANEL Lab Routine 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, left (HCC) Every 3 months for 10 Occurrences starting 07/28/2021 until 07/28/2022 [facility] Work Phone: Comment on above: Every 3 months for 1 0 Occurrences starting 07/28/2021 until 07/28/2022 End: 06-14-2023 Diagnostic mammography computer-aided detcj bi DANIELLE DIAGNOSTIC BILAT Radiology Routine 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, left (HCC) 1 Occurrences starting 05/15/2022 until 06/14/2023 [facility] Work Phone: Comment on above: 1 Occurrences starti ng 05/15/2022 until 06/14/2023 End: 08-27-2022 Screening mammography bi 2-view breast inc cad DANIELLE SCREENING Radiology Routine 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, left (HCC) 1 Occurrences starting 07/28/2021 until 08/27/2022 [facility] Work Phone: Comment on above: 1 Occurrences starti ng 07/28/2021 until 08/27/2022 End: 06-14-2023 breast uni real time with image limited [facility] Work Phone: Comment on above: 1 Occurrences starti ng 05/15/2022 until 06/14/2023 [facility] Immunizations Immunization Date Immunization Notes Care Provider Fa [facility] 01-23-2024 influenza, high dose seasonal, preservative-free Jack Rogel MD Work Phone: [facility] 01-23-2023 Influenza, High-dose Seasonal, Quadrivalent, Preservative Free Jack Rogel MD Work Phone: [facility] 02-08-2022 Influenza, High-dose Seasonal, Quadrivalent, Preservative Free Jack Rogel MD Work Phone: [facility] 02-04-2021 COVID-19 vaccine, ag e 12+ yr (PFIZER-BIONTECH - PURPLE TOP) Ru Blackman RN [facility] 01-19-2021 Influenza, High-dose Seasonal, Quadrivalent, Preservative Free Jack Rogel MD Work Phone: [facility] 06-03-2020 COVID-19 vaccine, ag e 12+ yr (PFIZER-BIONTECH - PURPLE TOP) Ru Blackman RN [facility] 05-12-2020 COVID-19 vaccine, ag e 12+ yr (PFIZER-BIONTECH - PURPLE TOP) Ru Blackman RN [facility] 01-15-2020 influenza, seasonal, injectable Jack Rogel MD Work Phone: [facility] 12-26-2019 influenza, high dose seasonal, preservative-free Ru Blackman RN [facility] 12-26-2019 influenza virus vacc ine, unspecified formulation Arrival Radiology Work Phone: [facility] 01-24-2018 influenza, high dose seasonal, preservative-free Ru Blackman RN [facility] 01-25-2017 influenza, high dose seasonal, preservative-free Ru Blackman RN [facility] 01-20-2015 influenza, injectabl e, quadrivalent, contains preservative Jack Rogel MD Work Phone: [facility] 10-12-2014 pneumococcal conjuga te vaccine, 13 valent Ru Blackman RN [facility] 04-05-2010 pneumococcal polysaccharide vaccine, 23 valent Ru Blackman RN [facility] Payers Date Payer Category Payer Medicare (Managed Care) [facility] [id number] 2023 Unknown [id number] 2022 Self-pay [id number] 2018 Unknown ANTHEM BLUE CROS S AND BLUE SHIELD ANTHEM MEDIBLUE HMO [id number] 2018-Present [phone] [address] [place] [address] O [id number] 2018 Unknown [id number] 1959 Unknown [id number] 1941 Unknown [id number] [id number]. 2.355 1941 Unknown [id number] [id number]. 2.593 1941 Unknown [id number] [id number]. 2.593 1941 Unknown [id number] [id number]. 2.593 1941 Unknown [id number] [id number]. 2.593 1941 Unknown [id number] [id number]. 2.593 1941 Unknown [id number] 2.16.840.1.117812.3.579. 2.593 1941 Unknown [id number] 2.16.840.1.167772.3.579. 2.593 1941 Unknown [id number] [id number]. 2.1244 1941 Unknown [id number]. 2.1246 1940 Unknown [id number] 2.16.840.1.303066.3.579. 2.1259 1940 Unknown [id number] 2.16.840.1.323113.3.579. 2.1259 1940 Unknown [id number] 2.16.840.1.275850.3.579. 2.1259 1940 Unknown [id number] 2.16.840.1.512305.3.579. 2.1259 1941 Unknown [id number] 2.16.840.1.893652.3.579. 2.1259 1941 Unknown [id number] 2.16.840.1.832811.3.579. 2.1259 1941 Unknown [id number] 2.16.840.1.327798.3.579. 2.1259 1940 Unknown [id number] 2.16.840.1.087178.3.579. 2.1259 1940 Unknown [id number] 2.16.840.1.035692.3.579. 2.1259 Unknown [id number] 2.16.840.1.759274.3.579. 2.531 Social History Date Type Detail Facility Start: 04-05-2021 End: 11-29-2022 Tobacco smoking status NHIS Never smoked tobacco [facility] Start: 04-05-2021 End: 11-29-2022 Tobacco use and exposure Smokeless tobacco non-user [facility] Start: 05-12-2021 End: 03-11-2024 Alcohol intake Ex-drinker (finding) [facility] Start: 1940 Sex Assigned At Not on file [facility] Start: 03-26-2021 End: 08-09-2023 Exposure to SARS-CoV-2 (event) Not sure [facility] Start: 05-14-2023 End: 05-24-2023 Sex Assigned At [facility] [employer] Other Start: 1940 Sex Assigned At Female F [facility] History of tobacco use Passive smoker [facility] Start: 05-14-2023 End: 05-24-2023 History of Social function [facility] Start: 04-03-2023 Alcohol Comment caffeine intak e: 3-4 cups daily coffee [facility] Start: 07-02-2023 Alcohol intake Lifetime non-d mayela (finding) [facility] Work Phone: Medical Equipment Procedure Code Equipment Code Equipment Origin al Text Equipment Identifier Dates Check daily and as needed. [id number] Start: 09-25-2023 Clinical Notes 03-18-2021 to 07-02-2023 Eloise Galicia MD - 07/02/2023 1:15 PM EDTPatient Qian Rogel MD - 05/14/2023 2:00 PM ESTTelephone Encounter - Ru Thomas RN - 05/15/2022 2:18 PM EST Note Date & Type Note Facility 07-02-2023 History of Presen t illness Narrative Referred by [facility] Care ([place]-afib/plum htn) History Of Present Illness: Johannybraden Forbes is a 83 y.o. female presenting [...] 3 and previous TIA who presented to [facility] yesterday with complaint of transient neurologic symptoms [...] (bypass heart) Brother Allergies: Lisinopril, Penicillins, and Joqjrox-ssu-olu reductase inhibitors Outpatient Medications: Current Outpatient Medications [...] mouth 2 times a day. History of AL (myocardial infarction) - magnesium oxide (Mag-Ox) 400 [...] Paroxysmal atrial fibrillation (CMS/HCC) 2. History of AL (myocardial infarction) 3. Acute arterial ischemic stroke, [...] ventricular hypertrophy Clinical decision makin-year-old with a [id number] score of 7, has paroxysmal atrial fibrillation. [...] been markedly abnormal, and she has atherosclerotic nome vessel coronary disease, statin therapy is indicated, will discuss further at next visit, it appears that she has statin intolerance. May be a candidate for Leqvio. Patient will follow-up after testing Thank you Dr. Rogel for allowing me to participate in [facility] care, please do not hesitate to call if further questions arise, Sincerely, Eliose Galicia MD [facility] Provider Attestation - Scribe documentation Scribe Attestation By signing my name below, IElizabeth LPN , [employer] attest that this documentation has been prepared [...] formulation of care. documented in this encounter [facility] Work Phone: 07-02-2023 Instructions Curtis Navarro MA [...] of your visit. 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 We discussed telling tyler people [...] to someone more local when driving to [place] is driving is a little more difficult [...] home exercise program. Coronary artery disease involving nome coronary artery of nome heart without angina pectoris (CMS/HCC) Chronic problem, [...] May 24, 2023 documented in this encounter [facility] 05-15-2022 Miscellaneous Notes Received call from pt stating she is at [facility] and needs mammogram orders sent. Orders faxed as requested. Ru Thomas RN documented in this encounter [facility] 05-15-2022 Miscellaneous Notes Faxed order to Chrissie May 15, 2022 2:15 PM Honey Tucker Faxed order to Chrissie May 15, 2022 2:15 PM Honey Tucker Ordered Patient is currently at [facility] for her Mammogram. Chrissie is calling to request a new order. 1) Diagnostic Bilateral Mammogram 2) US order (that way they have it if needed) ABDIFATAH/Amarilys: If in agreement, can you please place order PERLITA and I will fax back to her? Thanks! Chrissie: Ph. [phone] Fax. [phone] Honey Mayeyvonne documented in this encounter [facility] 03-12-2022 Evaluation note Encounter Date [...] no improvement in 2 to 3 days. [employer] Other 10-31-2022 Miscellaneous Notes* Telephone Encounter - [...] advise Shiva Reyes RN [facility] NoteHNO ID: [id number] Author: Simin Lama MD Service: ? Author Type: Physician Type: Progress Notes Filed: 01/31/2022 3:38 PM Note Text: PATIENT NAME: Johanny Forbes CLINIC NO.: [id number] ATTENDING PHYSICIAN: Simin Lama MD DATE OF [...] metastatic breast carcinoma, 5 cm, ER 0, NJ 0, HER-2 0 by IHC. The tissue was not evaluated for flow cytometry to rule out a lymphoproliferative process. 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 Differential included mammary, skin, urothelial, pancreaticobiliary and pulmonary primaries. ER 0, NJ 0, HER-2 negative by CAMERON. 2021 PET [...] 04/11/2021 141 Chloride (mmol (more content not included)...[facility] 01-31-2022 Miscellaneous Notes* Telephone Encounter - Honey Tucker - 01/31/2022 4:[address] Lama, patient had a previous abnormal L Mammogram and never followed up. He would like L Mammogram completed now. Faxed order to [facility] scheduling per patient's hospital request. Honey Tucker documented [facility] History of Present illness Narrative* Simin Lama MD - 01/31/2022 3:19 PM EDT PATIENT NAME: Johanny Forbes CLINIC NO.: [id number] ATTENDING PHYSICIAN: Simin Lama MD DATE OF [...] metastatic breast carcinoma, 5 cm, ER 0, NJ 0, HER-2 0 by IHC. The tissue was not evaluated for flow cytometry to rule out a lymphoproliferative process. 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 Differential included mammary, skin, urothelial, pancreaticobiliary and pulmonary primaries. ER 0, NJ 0, HER-2 negative by CAMERON. 2021 PET [...] 07/28/2021 3.28 1.00 - 4.00 k/uL Final [place]% Date Value Ref Range Status 07/28/2021 5.9 % Final Abs [place] Date Value Ref Range Status 07/28/2021 0.46 [...] Maira Saunders Booth and Ryan, of the [facility] breast pathology department, who concur. [...] do not hesitate to contact me at [phone]. Simin Lama MD Hematology/Medical Oncology [facility] Shailesh Griffith spent a total of 30 minutes on the date of the service which included preparing to see the patient, mjri-zo-[id number] patient care, completing clinical documentation, obtaining and/or reviewing separately obtained history, performing a medically appropriate examination, counseling and educating the pat ient/family/caregiver, and ordering medications, tests, or procedures. Medical Decision Making: Medical Decision Making Level: 1 - N/A CC: DO Jorge Luis Webster DO documented in [facility]2022 NoteHNO ID: [id number] Author: Drake Anand MD Service: ? Author [...] metastatic breast carcinoma, 5 cm, ER 0, NJ 0, HER-2 0 by IHC. The tissue was not evaluated for flow cytometry to rule out a lymphoproliferative process. 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 Differential included mammary, skin, urothelial, pancreaticobiliary and pulmonary primaries. ER 0, NJ 0, HER-2 negative by CAMERON. ? 2021 [...] date of the (more content not included)... [facility]04-14-2022 History of Present illness Narrative* Drake Anand MD - 07/28/2021 3:18 PM EDT BREAST ONCOLOGY FOLLOW UP Elements in this clinic note that are critical to medical decision making have been carefully reviewed and included from my prior clinic note dated: May 12, 2021 July 28, 2021 PCP and other physicians involved in patient's care: Jroge Luis Whitehead (PCP), Campbell Marrero DIAGNOSIS: Axillary cancer of unknown primary ONCOLOGIC HISTORY AND TREATMENT DETAILS: Presented in January 2021 with left-sided axillary swelling over 2 to 3 weeks. This was confirmed by an ultrasound to be a 6.9 cm mass. FNA was nondiagnostic. March 18, 2021 left axillary node excision (Dr. Wiecek); path consistent with metastatic breast carcinoma, 5 cm, ER 0, NJ 0, HER-2 0 by IHC. The tissue was not evaluated for flow cytometry to rule out a lymphoproliferative process. 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 Differential included mammary, skin, urothelial, pancreaticobiliary and pulmonary primaries. ER 0, NJ 0, HER-2 negative by CAMERON. 2021 PET [...] which included preparing to see the patient, wefu-ln-[id number] patient care, completing clinical documentation, obtaining and/or reviewing separately obtained history, counseling and educating the patient/family/caregiver, ordering medications, herlinda ts, or procedures, independently interpreting results (not separately reported) and communicating results to the patient/family/caregiver. documented [facility] Miscellaneous Notes* Telephone Encounter - [...] discuss further. She can be reached at [phone]. Ru Blackman RN documented in this [facility]01[facility] History of Present illness Narrative* Dina Pablo, RT(R) - 2021 12:30 PM EST RADIOLOGY SERVICE PROGRESS NOTE SERVICE DATE: 2021 SERVICE TIME: 12:40 PM PATIENT IDENTITY VERIFICATION COMPLETED USING TWO (2) STANDARD IDENTIFIERS: Name and Date of confirmed by patient verbally FALL SCREENING: Has the patient had 2 falls in the last year or 1 fall with injury or currently using an Ambulatory Assistive Device (Walker, Cane, Wheelchair, Crutches, etc.)? No PATIENT GENDER DATA: .female ALLERGIES: Reviewed and unchanged MEDICATIONS REVIEWED: Not applicable PATIENT RELEVANT IMPLANT DATA REVIEWED: Not Applicable CREATININE: Creatinine Date Value Ref Range Status 04/11/2021 1.33 (H) 0.58 - 0.96 mg/dL Final eGFR-All Other Races Date Value Ref Range Status 04/11/2021 38 . Final Comment: eGFR (Estimated GFR) Units of measure: mL/min/1.73 meters squared eGFR is derived from the reexpressed MDRD Study equation using the following parameters: serum creatinine, age, gender and race. The creatinine assay has been calibrated to be traceable to IDMS. An eGFR <60 mL/min/1.73m2 for >3 months is consistent with chronic kidney disease. Refer to KDOQI guidelines for clinical interpretation. In patients with unstable renal function, e.g. those with acute kidney injury, the eGFR may not accurately reflect actual GFR. Note: On 06/11/2021, the eGFR calculation will be updated to the NKF-ASN Task Force recommended 2020 CKD-EPI creatinine equation which does not include a race variable. For more information or to access a 2020 CKD-EPI calculator, visit the National Kidney Foundation website at kidney.org/professionals/kdoqi/gfr_calculator. eGFR- Date Value Ref Range Status 04/11/2021 47 Final P.O.C.T. RESULTS: POC done: Yes, See Lab Tab [address] PERFORMED: No IV SITE: Ambulatory: A peripheral IV was started in the Right antecubital site with a Angio cath: 22 gauge. POST EXAM PIV STATUS: Discontinued PROCEDURE TYPE: NM INJECT: PET/CT BODY SCAN. 10.4 mCi F18 FDG. No other medications given.. ADMINISTRATION TIME: 1232 PATIENT DISCHARGED TO: Ambulatory patient, left MS department area. A Diagnostic radioactive procedure has taken place, with no further precautions necessary other than routine body substance precautions. More information regarding radiation safety can be found usingthis link: [email or web address] SIGNATURE: RT Keira(Magdalene) PATIENT NAME: Johanny Forbes DATE: 2021 TIME: 2:40 PM PAGER/CONTACT #: documented in [facility] Miscellaneous Notes* Telephone Encounter - Amarilys Murry PA-C - 04/12/2021 4:42 PM EST Request received from [facility] for additional diagnosis codes for MRI breast because diagnosis providedis not a covered diagnosis. Will send with additional diagnosis codes. Will try C50.912 and C77.3. (carcinoma of breast metastatic to left axillary node) Amarilys Murry PA-C documented in this encounterMer[facility]12-[facility]-2021 NoteOPERATIVE NOTE OPERATION DATE: 03-18-21 ANESTHETIC:LMA. STAFF DEVELOPER:COLTON Enciso PREOPERATIVE DIAGNOSIS:Left axillary mass. POSTOPERATIVE DIAGNOSIS: [...] the PACU in fair condition. [facility] Signed and Approved by: DR TIM NIÑO . 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, left (HCC)- Primary documented in this encounter [facility] noteNo assessment information availableTrinity [facility] Work Phone: Evaluation note* Diagnosis Encounter for [...] cerebral infarction (CMS/HCC) Coronary artery disease involving nome coronary artery of nome heart without angina pectoris (CMS/HCC) Pulmonary hypertension, mild (CMS/HCC) Other chronic pulmonary heart diseases Chronic kidney disease, stage 3b (HCC) (CMS/HCC) Type 2 diabetes mellitus with stage 3b chronic kidney disease, without long-term current use of insulin (HCC) (CMS/HCC) 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, left (CMS/HCC) Mixed dyslipidemia (CMS/HCC) [facility]* Diagnosis Paroxysmal atrial fibrillation (CMS/HCC) Atrial fibrillation History of AL (myocardial infarction) 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, multifocal, posterior circulation, right (CMS/HCC) BMI 25.0-25.9,adult Never smoked tobacco STORMY inhibitor intolerance Primary hypertension Unspecified essential hypertension documented in this encounter [facility] Work Phone: Evaluation note* Diagnosis History of AL (myocardial infarction) 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, multifocal, posterior circulation, right (Multi) documented in this encounter [facility] Work Phone: Evaluation note* Diagnosis Malignant neoplasm of breast in female, estrogen receptor negative, unspecified laterality, unspecified site of breast (HCC) documented in this encounter [facility] for referral (narrative)* Diagnostic Procedure Only (Routine) - Pending Review Specialty Diagnoses / Procedures Referred By Contac t Referred To Contact [facility] Diagnoses 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, left (HCC) Procedures DANIELLE SCREENING SCREENING MAMMOGRAPHY BI 2-VIEW BREAST INC Drake Ramos MD [address] [place] [address] [place] [address] [facility] [address] [place] [address] Referral ID Status Reason Start Date Expiration Date Visits Requested Visits Authorized [id number] Pending Review Auto-Generat ed Referral 07/28/2021 08/27/2022 1 1 [facility] for referral (narrative)* Diagnostic Procedure Only (Routine) - Pending Review Specialty Diagnoses / Procedures Referred By Contac t Referred To Contact [facility] Diagnoses 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, left (HCC) Procedures DANIELLE DIAGNOSTIC LT DIAGNOSTIC MAMMOGRAPHY COMPUTER-AIDED DETCJ UNI Simin Lama MD [address] [place] [address] [facility] [address] [address] Referral ID Status Reason Start Date Expiration Date Visits Requested Visits Authorized [id number] Pending Review Auto-Generat ed Referral 02/14/2022 03/02/2023 1 1 [facility] for referral (narrative)* Diagnostic Procedure Only (Routine) - Pending Review Specialty Diagnoses / Procedures Referred By Contac t Referred To Contact [facility] Diagnoses 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, left (HCC) Procedures US BREAST LTD RT US BREAST UNI REAL TIME WITH IMAGE LIMITED Simin Lama MD [address] [place] [address] [facility] [address] [place] [address] Referral ID Status Reason Start Date Expiration Date Visits Requested Visits Authorized [id number] Pending Review Auto-Generat ed Referral 05/15/2022 06/14/2023 1 1 * Diagnostic Procedure Only (Routine) - Pending Review Specialty Diagnoses / Procedures Referred By Contac t Referred To Contact [facility] Diagnoses 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, left (HCC) Procedures US BREAST LTD LT BREAST UNI REAL TIME WITH IMAGE LIMITED Simin Lama MD [address] [place] [address] [facility] [address] [place] [address] Referral ID Status Reason Start Date Expiration Date Visits Requested Visits Authorized [id number] Pending Review Auto-Generat ed Referral 05/15/2022 06/14/2023 1 1 * Diagnostic Procedure Only (Routine) - Pending Review Specialty Diagnoses / Procedures Referred By Contac t Referred To Contact [facility] Diagnoses 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, left (HCC) Procedures DANIELLE DIAGNOSTIC BILAT DIAGNOSTIC MAMMOGRAPHY COMPUTER-AIDED DETCJ BI Simin Lama MD [address] [place] [address] [facility] [address] [place] [address] Referral ID Status Reason Start Date Expiration Date Visits Requested Visits Authorized [id number] Pending Review Auto-Generat ed Referral 05/15/2022 06/14/2023 1 1 [facility] for referral (narrative)* Diagnostic Procedure Only (Routine) - Closed Specialty Diagnoses / Procedures [facility] To Contact MOLECULAR & FUNCTIONAL IMAGING Diagnoses Malignant neoplasm of breast in female, estrogen receptor negative, unspecified laterality, unspecified site of breast (HCC) Procedures NM PET/CT SKULL-THIGH INITIAL TUMOR IMAGING PET W/CONC CT SKULL-THIGH Drake Anand MD [address] [place] [id number] [facility] [address] [id number] Referral ID Status Reason Start Date Expiration Date V isits Requested Visits Authorized [id number] Closed Auto-Generate d Referral 04/16/2021 06/14/2021 1 1 [facility] Summary Purpose Family History No Family History Records FoundNo Family History Records FoundNo Family History Records FoundNo Family History Records FoundNo Family History Records FoundNo Family History Records FoundNo Family History Records FoundNo Family History Records FoundNo Family History Records Found Advance Directives No Advanced Directives Records Found Advance Directive Response Recorded Date/ Time Advance Directives No May 04, 2022 12:47pm Documents on File Type Date Recorded 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 05/28/2023 10:54 AM 2022 Power Of Survival Equipment Repairer Chief Complaint and Reason for Visit Chief Complaint C77.3 Reason for Referral Specialty Diagnoses / Procedures Referred By Contac t Referred To Contact Cardiology Diagnoses History of AL (myocardial infarction) Acute arterial ischemic stroke, multifocal, posterior circulation, right (CMS/HCC) Procedures Transthoracic Echo Complete [place] ECHO TTHRC R-T 2D W/WOM-MODE COMPL SPEC&COLR D Eloise Galicia MD [address] [facility] [address] [place] [address] Referral ID Status Reason Start Date Expiration Date Visits Requested Visits Authorized [id number] Authorized Perform Procedure 07/02/2023 07/01/2024 1 1 Specialty Diagnoses / Procedures Referred By Contac t Referred To Contact Diagnoses Paroxysmal atrial fibrillation (CMS/HCC) Procedures ECG 12 Lead Eloise Galicia MD [address] [place] [address] [address] [place] [address] Referral ID Status Reason Start Date Expiration Date V isits Requested Visits Authorized [id number] Authorized 07/02/2023 07/01/2024 1 1 Specialty Diagnoses / Procedures Referred By Contac t Referred To Contact Cardiology Diagnoses Acute arterial ischemic stroke, multifocal, posterior circulation, right (CMS/HCC) Procedures Follow Up In Cardiology Eloise Galicia MD [address] [facility] [address] [place] [address] Eloise Galicia MD [address] [facility] [address] [place] [address] Referral ID Status Reason Start Date Expiration Date V isits Requested Visits Authorized [id number] Authorized 07/02/2023 07/01/2024 1 1 Additional Source Comments INFORMATION SOURCE (unrecogn ized section and content) DATE CREATED AUTHOR 06/27/2018 [facility] DATE CREATED AUTHOR AUTHOR'S ORGANIZ ATION 07/08/2019 [facility] DATE CREATED AUTHOR AUTHOR'S ORGANIZ ATION 05/07/2021 [facility] DATE CREATED AUTHOR AUTHOR'S ORGANIZ ATION 05/16/2022 [facility] DATE CREATED AUTHOR AUTHOR'S ORGANIZ ATION 05/24/2022 [facility] DATE CREATED AUTHOR AUTHOR'S ORGANIZ ATION 08/09/2023 [facility] DATE CREATED AUTHOR AUTHOR'S ORGANIZ ATION 08/15/2023 [facility] DATE CREATED AUTHOR AUTHOR'S ORGANIZ ATION 03/08/2024 [facility] DATE CREATED AUTHOR AUTHOR'S ORGANIZ ATION 03/14/2024 [facility] EPIC Source Comments (unrecognize d section and content) In the event this informatio n is protected by the Federal Confidentiality of Alcohol and Drug Abuse Patient Records regulations: The Federal rules restrict any use of the information to criminally investigate or prosecute any alcohol or drug abuse patient.[facility] CenterIn the event this information is protected by the Federal Confidentiality of Alcohol and Drug Abuse Patient Records regulations: The Federal rules restrict any use of the information to criminally investigate or prosecute any alcohol or drug abuse patient.[facility] CenterIn the event this information is protected by the Federal Confidentiality of Alcohol and Drug Abuse Patient Records regulations: The Federal rules restrict any use of the information to criminally investigate or prosecute any alcohol or drug abuse patient.[facility] CenterIn the event this information is protected by the Federal Confidentiality of Alcohol and Drug Abuse Patient Records regulations: The Federal rules restrict any use of the information to criminally investigate or prosecute any alcohol or drug abuse patient.[facility] Center[facility] the event this information is protected by the Federal Confidentiality of Alcohol and Drug Abuse Patient Records regulations: The Federal rules restrict any use of the information to criminally investigate or prosecute any alcohol or drug abuse patient.[facility] CenterIn the event this information is protected by the Federal Confidentiality of Alcohol and Drug Abuse Patient Records regulations: The Federal rules restrict any use of the information to criminally investigate or prosecute any alcohol or drug abuse patient.[facility] CenterIn the event this information is protected by the Federal Confidentiality of Alcohol and Drug Abuse Patient Records regulations: The Federal rules restrict any use of the information to criminally investigate or prosecute any alcohol or drug abuse patient.[facility] CenterIn the event this information is protected by the Federal Confidentiality of Alcohol and Drug Abuse Patient Records regulations: The Federal rules restrict any use of the information to criminally investigate or prosecute any alcohol or drug abuse patient.[facility] CenterIn the event this information is protected by the Federal Confidentiality of Alcohol and Drug Abuse Patient Records regulations: The Federal rules restrict any use of the information to criminally investigate or prosecute any alcohol or drug abuse patient.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 Breast Cancer Follow up Reason Comments Appointment Reason Comments Orders Reason Comments Orders Reason Comments Annual Exam Reason Comments Establish Care [place]ym[place]-afib/plum h tn Specialty Diagnoses / Procedures Referred By Contac t Referred To Contact Diagnoses Paroxysmal atrial fibrillation (CMS/HCC) Procedures ECG 12 Lead Eloise Galicia MD [address] [facility] [address] [place] [address] Referral ID Status Reason Start Date Expiration Date V isits Requested Visits Authorized [id number] Authorized 07/02/2023 07/01/2024 1 1 Specialty Diagnoses / Procedures [facility] Contact Cardiology Diagnoses History of AL (myocardial infarction) Acute arterial ischemic stroke, multifocal, posterior circulation, right (Multi) Procedures Transthoracic Echo Complete [place] ECHO TTHRC R-T 2D W/WOM-MODE COMPL SPEC&COLR D Eloise Galicia MD [address] [facility] [address] [place] [address] Referral ID Status Reason Start Date Expiration Date Visits Requested Visits Authorized [id number] Authorized Perform Procedure 07/02/2023 07/01/2024 1 1 Reason Comments Radiology NM Specialty Diagnoses / Procedures [facility] Referred To Contact MOLECULAR & FUNCTIONAL IMAGING Diagnoses Malignant neoplasm of breast in female, estrogen receptor negative, unspecified laterality, unspecified site of breast (HCC) Procedures NM PET/CT SKULL-THIGH INITIAL TUMOR IMAGING PET W/CONC CT SKULL-THIGH Drake Anand MD [address] [place] [address] [address] [place] [address] Molecular & Functional Imaging [address] [place] [address] Referral ID Status Reason Start Date Expiration Date V isits Requested Visits Authorized [id number] Closed Auto-Generate d Referral 04/16/2021 06/14/2021 1 1 Care Teams (unrecognized sec tion and content) Home Health Rn Relationship Specialty Start Date End Date Jorge Luis Whitehead [address] [place] [address] PCP - General Family Practice 03/28/21 Home Health Rn Relationship Specialty Start Date End Date Jorge Luis Whitehead [address] [place] [address] PCP - General Family Practice 03/28/21 Home Health Rn Relationship Specialty Start Date End Date Jorge Luis Whitehead, DO [address] [place] [address] PCP - General Family Practice 03/28/21 Home Health Rn Relationship Specialty Start Date End Date Jorge Luis Whitehead, DO [address] [place] [address] PCP - General Family Medicine 03/28/21 Home Health Rn Relationship Specialty Start Date End Date Jorge Luis Whitehead, DO [address] [place] [address] PCP - General Family Medicine 03/28/21 Home Health Rn Relationship Specialty Start Date End Date Jorge Luis Whitehead, DO [address] [place] [address] PCP - General Family Medicine 03/28/21 Home Health Rn Relationship Specialty Start Date End Date Jorge Luis Whitehead, DO [address] [place] [address] PCP - General Family Medicine 03/28/21 Home Health Rn Relationship Specialty Start Date End Date Jorge Luis Whitehead, DO [address] [place] [address] PCP - General Family Medicine 03/28/21 Team Status: Inactive Member Role Status Dates Jorge Luis Whitehead DO Primary Care Provider Active Simin Lama MD Attending Provider Active Team Status: Active Member Role Status Dates Jorge Luis Whitehead DO Primary Care Provider Active Home Health Rn Relationship Specialty Start Date End Date Amanda Briones MD [address] [facility] [place] [address] PCP - General Family Medicine 09/07/22 Amanda Briones MD [address] [place] [address] PCP - Devoted 04/16/23 Linette Blankenship NP [address] [place] [address] Nurse Practitioner Family Medicine 09/07/22 Home Health Rn Relationship Specialty Start Date End Date Jack Rogel MD [address] [place] [address] PCP - General Family Medicine 07/02/23 Home Health Rn Relationship Specialty Start Date End Date Jack Rogel MD [address] [place] [address] (Fax) PCP - General Family Medicine 07/02/23 Home Health Rn Relationship Specialty Start Date End Date Jorge Luis Whitehead DO [address] [place] [id number] PCP - General Family Medicine 03/28/21 Home Health Rn Relationship Specialty Start Date End Date Amanda Briones MD [address] [place] [address] PCP - Devoted 04/16/23 Jack Rogel MD [address] [address] PCP - General Family Medicine 06/01/23 Linette Blankenship NP [address] [place] [address] Nurse Practitioner Family Medicine 09/07/22 Goals (unrecognized [...] BE BASED ON THE PRIMARY CLINICAL RECORDS. [facility]. provides no warranty or guarantee of the accuracy or completeness of information in this document.
== END 2024-03-19 13:01 | disposition home or self-care (01) ==
LOC: VC 13:00
PROVIDERS: PCP Family Medicine; Visit Provider Family Medicine
DX: R09.89 Other specified symptoms and signs involving the circulatory and respiratory systems (principal); R23.0 Cyanosis; N18.32 Chronic kidney disease, stage 3b
CPT/HCPCS: 93923

== ENCOUNTER 2024-04-02 12:33 | Emergency (ER) | payer OTHER, SELFPAY ==
[2024-04-02] VITALS (26 sets, daily range): BP systolic 117–198; BP diastolic 76–127; PULSE 62–83; TEMP 36.8; O2SAT 90–99; BMI 24.8
--- NOTE | 2024-04-02 13:16 | XR_ITS ---
The [address] [address] Patient Name: MADALYN FORBES MRN: [id number] date: 1940 Sex: F Assigned Patient Location: ER Current Patient Location: ER Accession/Order Number: [id number] Exam Date: 04/02/2024 13:20 Report Date: 04/02/2024 13:48 At the request of: SHIVA DE LA FUENTE Procedure: XR chest 1V EXAMINATION: XR chest 1V HISTORY: Chest pain COMPARISON: XR chest 06/21/2018 FINDINGS: LUNGS: Scattered mild patchy and strandy opacities within the mid and lower lung regions; not significant changed. VASCULATURE: No increased pulmonary vasculature. PLEURA: No pneumothorax, effusion, or pleural thickening. CARDIAC: No cardiomegaly or cardiac silhouette abnormality. MEDIASTINUM: Hiatal hernia. BONES: No fracture or visible bone lesion. OTHER: Negative. XR/XR chest 1V IMPRESSION: 1. Suspect mild infiltrates overlying chronic interstitial changes which were also seen on prior study. Electronically authenticated by: EDGAR FARR Date: 04/02/2024 13:48
--- NOTE | 2024-04-02 13:16 | ECG_ITS ---
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
[2024-04-02 13:21] LABS: Basophils Absolute Auto 0.1 10^3/uL (0.0-0.1); Basophils Percent Auto 0.5 % (0.2-2.0); Eosinophils Absolute Auto 0.5 10^3/uL (0.0-0.7); Eosinophils Percent Auto 5.4 % (0.9-7.0); Hematocrit 35.5 % (36.0-48.0); Hemoglobin 11.6 g/dL (12.0-16.0); Immature Granulocytes Abs Auto 0.02 10^3/uL (0.00-0.03); Immature Granulocytes Pct Auto 0.2 % (0.0-0.5); Lymphocytes Absolute Auto 4.5 10^3/uL (1.2-3.8); Lymphocytes Percent Auto 45.5 % (20.5-60.0); Mean Corpuscular HGB Conc 32.7 g/dL (29.9-35.2); Mean Corpuscular Hemoglobin 30.3 pg (26.7-34.0); Mean Corpuscular Volume 92.7 fL (81.0-99.0); Mean Platelet Volume 9.9 fL (9.5-13.5); Monocytes Absolute Auto 0.5 10^3/uL (0.3-0.8); Monocytes Percent Auto 5.2 % (1.7-12.0); Neutrophils Absolute Auto 4.3 10^3/uL (1.4-6.5); Neutrophils Percent Auto 43.2 % (43.0-75.0); Platelet Count 239 10^3/uL (150-450); Red Blood Count 3.83 10^6/uL (4.20-5.40); Red Cell Distribution Width 13.1 % (11.0-15.0); White Blood Count 9.9 10^3/uL (4.0-11.0)
[2024-04-02 13:31] LABS: Alanine Aminotransferase 15 U/L (14-59); Albumin Globulin Ratio 0.7; Albumin Level 3.1 g/dL (3.4-5.0); Alkaline Phosphatase 68 U/L (46-116); Anion Gap 10.2; Aspartate Amino Transferase 15 U/L (15-37); BUN Creatinine Ratio 16.1; Bilirubin Total 0.4 mg/dL (0.2-1.0); Carbon Dioxide 28.2 mmol/L (21.0-32.0); Chloride 106 mmol/L (98-107); Estimated GFR (African America 37 (>=60 mL/min/1.73m^2); Estimated GFR (Non-African Ame 31 (>=60 mL/min/1.73m^2); Globulin 4.4 g/dL; Glucose 130 mg/dL (74-106); Potassium 4.4 mmol/L (3.5-5.1); Sodium 140 mmol/L (136-145); Total Protein 7.5 g/dL (6.4-8.2)
--- NOTE | 2024-04-02 13:31 | ED.CHESTPAI1 ---
HPI - Chest Pain General Chief Complaint: Chest Pain Stated Complaint: back pain, nausea Time Seen by Provider: 04/02/24 13:12 Source: patient Mode of arrival: walk-in History of Present Illness HPI narrative: Patient is an 83-year-old female who presents to the emergency department for the evaluation of midthoracic back pain that began about 1 hour ago. She states she took 2 aspirin and came to the emergency department. Apparently on arrival to the lobby, patient was told she would not immediately be placed in a room and she developed anterior chest pain while in the lobby. She does not feel short of breath. She denies any recent upper respiratory illness. She states she feels very nauseous. She states the pain in her back does radiate some to her right arm. She states she had a heart attack 6 years ago, but states she was in the hospital for several days on a blood thinner and has never had a stress test or heart catheterization in the past. She has never had open heart surgery and does not have any stents in her heart. 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 She has a history of hypertension, A-fib and vascular disease. Per her medication list she is currently anticoagulated with Eliquis. Risk Factors Coronary artery disease risk factors: hypertension and family history of CAD before age 50 Related Data Home Medications ?Medication ?Instructions ?Recorded ?Confirmed carvedilol 3.125 mg tablet 3.125 mg PO BID 03/21/23 04/02/24 levothyroxine 25 mcg tablet 25 mcg PO QDAY 03/21/23 04/02/24 valsartan 40 mg tablet 20 mg PO QDAY 03/21/23 04/02/24 apixaban 5 mg tablet (Eliquis) 5 mg PO BID 04/02/24 04/02/24 Allergies Allergy/AdvReac Type Severity Reaction Status Date / Time Penicillins Allergy Severe Verified 06/01/23 00:36 lisinopril AdvReac Severe Verified 06/01/23 00:36 Review of Systems ROS Constitutional Denies: fever or chills Ears, nose, mouth, and throat Denies: throat pain Cardiovascular Reports: chest pain Respiratory Denies: shortness of breath or cough Gastrointestinal Reports: nausea; Denies: abdominal pain or vomiting Musculoskeletal Reports: back pain; Denies: neck pain Integumentary/Breast Denies: rash Neurological Denies: numbness in extremities or weakness in extremities Hematologic/Lymphatic Reports: easy bruising and easy bleeding PFSH [facility] Medical History (Updated 04/02/24 @ 17:25 by HAYLEE Crow) Cerebrovascular disease ?I67.9 - Cerebrovascular disease, unspecified (ICD-10) Stage 3b chronic kidney disease (CKD) ?N18.32 - Chronic kidney disease, stage 3b (ICD-10) Type 2 diabetes mellitus with hyperglycemia ?E11.65 - Type 2 diabetes mellitus with hyperglycemia (ICD-10) Colitis ?K52.9 - Noninfective gastroenteritis and colitis, unspecified (ICD-10) Paroxysmal atrial flutter ?I48.92 - Unspecified atrial flutter (ICD-10) HTN (hypertension) ?I10 - Essential (primary) hypertension (ICD-10) CAD (coronary artery disease) ?I25.10 - Atherosclerotic heart disease of [place] coronary artery without angina pectoris (ICD-10) Lumbar spondylosis ?M47.816 - Spondylosis without myelopathy or radiculopathy, lumbar region (ICD-10) AAA (abdominal aortic aneurysm) without rupture ?I71.40 - Abdominal aortic aneurysm, without rupture, unspecified (ICD-10) Cerebrovascular accident ?I63.9 - Cerebral infarction, unspecified (ICD-10) Type 2 diabetes mellitus ?E11.9 - Type 2 diabetes mellitus without complications (ICD-10) Lacunar stroke, acute ?I63.81 - Other cerebral infarction due to occlusion or stenosis of small artery (ICD-10) Hypothyroid ?E03.9 - Hypothyroidism, unspecified (ICD-10) HLD (hyperlipidemia) ?E78.5 - Hyperlipidemia, unspecified (ICD-10) Cataract (lens) fragments in eye following cataract surgery, bilateral ?H59.023 - Cataract (lens) fragments in eye following cataract surgery, bilateral (ICD-10) Cataracts, bilateral ?H26.9 - Unspecified cataract (ICD-10) Chronic kidney disease, stage 3 unspecified ?N18.30 - Chronic kidney disease, stage 3 unspecified (ICD-10) Borderline diabetes mellitus ?R73.03 - Prediabetes (ICD-10) Myocardial infarct, old ?I25.2 - Old myocardial infarction (ICD-10) Surgical History History of appendectomy ?Z90.49 - Acquired absence of other specified parts of digestive tract (ICD-10) History of right heart catheterization ?Z98.890 - Other specified postprocedural states (ICD-10) H/O lumpectomy ?Z98.890 - Other specified postprocedural states (ICD-10) Family History Brother Family history of diabetes mellitus Family history of myocardial infarction Mother Family history of diabetes mellitus Family history of myocardial infarction Sister Family history of myocardial infarction Family history of stroke Daughter Family history of cancer Uncle Family history of CHF (congestive heart failure) Father Family history of COPD (chronic obstructive pulmonary disease) Social History Within the past year, how often did you have a drink containing alcohol: never Score interpretation: A score less than 3 is consistent with normal alcohol consumption. 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 Known occupational exposures/hazards: No Highest level of school completed/degree received: some college, no degree Do you want help with school or training: No Are you now , , , , never or living with a partner: In a typical week, how many times do you talk on the telephone with family, friends, or neighbors: 3 or more times per week How often do you get together with friends or relatives: 3 or more times per week Little interest or pleasure in doing things: not at all Feeling down, depressed, or hopeless: not at all Feel stressed/tense/nervous/anxious/difficulty sleeping: not at all Life stressors: recent of family or friend Life stressor details: daughter last year Do you think of yourself as: straight/heterosexual Gender Identity: female Exam Narrative Exam Narrative: Gen.: Awake, alert, in no distress Head: Normocephalic, atraumatic ENT: Moist mucous membranes Respiratory: No respiratory distress, lungs clear bilaterally Cardio: Regular rate and rhythm Back: No bony point tenderness of the T-spine or L-spine, no obvious deformity or step-off. Gastrointestinal: Abdomen is soft, nondistended and nontender to palpation Extremities: Moves extremities equally, no injuries noted Psych: Normal mood and affect Neuro: No focal neuro deficit Skin: Warm, dry, intact Constitutional Vital Signs, click to edit/add: Last Vital Signs Temp 98.2 F 04/02/24 12:50 Pulse 74 04/02/24 17:00 Resp 20 04/02/24 17:00 BP 155/96 H 04/02/24 17:00 Pulse Ox 95 04/02/24 17:00 O2 Del Method Room Air 04/02/24 16:47 Course Vital Signs Vital signs: Vital Signs Temperature 98.2 F 04/02/24 12:50 Pulse Rate 78 04/02/24 12:50 Respiratory Rate 18 04/02/24 12:50 Blood Pressure 198/100 H 04/02/24 12:50 Pulse Oximetry 96 04/02/24 12:50 Oxygen Delivery Method Room Air 04/02/24 12:50 Temperature 98.2 F 04/02/24 12:50 Pulse Rate 74 04/02/24 17:00 Respiratory Rate 20 04/02/24 17:00 Blood Pressure 155/96 H 04/02/24 17:00 Pulse Oximetry 95 04/02/24 17:00 Oxygen Delivery Method Room Air 04/02/24 16:47 MDM - Chest Pain MDM Narrative Medical decision making narrative: Patient took 2 aspirin prior to arrival, she was given 1 sublingual nitro with almost complete resolution of her pain in the ER. Initial lab studies, chest x-ray and EKG with no significant acute abnormalities. Radiologist noted minimal opacity on the chest x-ray which is unchanged from previous. Given the patient's history of abdominal aortic aneurysm without rupture, she was sent for CT angio of the chest abdomen and pelvis due to her thoracic back pain and chest pain. The studies show stable abdominal aortic aneurysm without dissection as well as a borderline aneurysm of the thoracic aorta. No acute process noted in the lungs. Discussed with the patient that we will repeat a troponin and admit for observation for rule out ACS. She states she is feeling much better after aspirin and nitro, she is resting comfortably in the ER and agreeable to admission for observation. Vital signs are stable at this time. 1615: Troponin was repeated and it is significantly elevated. I made the patient aware of this, she was admitted previously at [facility] and has seen [facility] cardiology and prefers to go to that facility. She was made aware of her repeat troponin results and she is stable and chest pain-free at this time. [facility] was contacted for transfer. Repeat EKG shows normal sinus rhythm at a rate of 73 with T wave inversion in the inferior and lateral leads, no acute ST elevation or ectopy. EKG reviewed by attending physician. 1715: I spoke with Dr. Alamo for the hospitalist service as well as Dr. Jimenez for cardiology. Patient was accepted for transfer, we will defer heparin at this time per hospitalist and cardiology services. Patient is hemodynamically stable at this time. Critical care time 35 minutes SUPERVISED APC VISIT, PHYSICIAN ATTESTATION: Based on the medical record the care appears appropriate. ? Medical Records Data Attestation: I reviewed the patient's medical records. Lab Data Attestation: I reviewed the patient's lab results. Labs: Lab Results 04/02/24 04/02/24 04/02/24 Range/Units 13:00 14:55 15:29 WBC 9.9 (4.0-11.0) 10^3/uL RBC 3.83 L (4.20-5.40) 10^6/uL Hgb 11.6 L (12.0-16.0) g/dL Hct 35.5 L (36.0-48.0) % MCV 92.7 (81.0-99.0) fL MCH 30.3 (26.7-34.0) pg MCHC 32.7 (29.9-35.2) g/dL RDW 13.1 (11.0-15.0) % Plt Count 239 (150-450) 10^3/uL MPV 9.9 (9.5-13.5) fL Neut % (Auto) 43.2 (43.0-75.0) % Lymph % (Auto) 45.5 (20.5-60.0) % Cobb % (Auto) 5.2 (1.7-12.0) % Eos % (Auto) 5.4 (0.9-7.0) % Baso % (Auto) 0.5 (0.2-2.0) % Neut # (Auto) 4.3 (1.4-6.5) 10^3/uL Lymph # (Auto) 4.5 H (1.2-3.8) 10^3/uL Cobb # (Auto) 0.5 (0.3-0.8) 10^3/uL Eos # (Auto) 0.5 (0.0-0.7) 10^3/uL Baso # (Auto) 0.1 (0.0-0.1) 10^3/uL Abs Immat Gran (auto) 0.02 (0.00-0.03) 10^3/uL Imm/Tot Granulo (auto) 0.2 (0.0-0.5) % PT 11.4 (9.0-11.6) sec INR 1.08 Sodium 140 (136-145) mmol/L Potassium 4.4 (3.5-5.1) mmol/L Chloride 106 (98-107) mmol/L Carbon Dioxide 28.2 (21.0-32.0) mmol/L Anion Gap 10.2 BUN 26.0 H (7.0-18.0) mg/dL Creatinine 1.61 H (0.55-1.02) mg/dL Est GFR ( Amer) 37 L (>=60 mL/min/1.73m^2) Est GFR (Non-Af Amer) 31 L (>=60 mL/min/1.73m^2) BUN/Creatinine Ratio 16.1 Glucose 130 H (74-106) mg/dL Calcium 9.0 (8.5-10.1) mg/dL Total Bilirubin 0.4 (0.2-1.0) mg/dL AST 15 (15-37) U/L ALT 15 (14-59) U/L Alkaline Phosphatase 68 (46-116) U/L Troponin I High Sens 29.1 2178.4 H* (4.0-51.3) pg/mL NT-Pro-B Natriuret Pep 262.0 (<=1800.0) pg/mL Total Protein 7.5 (6.4-8.2) g/dL Albumin 3.1 L (3.4-5.0) g/dL Globulin 4.4 g/dL Albumin/Globulin Ratio 0.7 Lipase 96.0 H (16.0-77.0) U/L Urine Color Lt. yellow (YELLOW) Urine Clarity Clear (CLEAR) Urine pH 7.0 (5.0-9.0) Ur Specific [place] 1.010 (1.005-1.025) Urine Protein Negative (NEG/TRACE) mg/dL Urine Glucose (UA) Negative (NEGATIVE) mg/dL Urine Ketones Negative (NEGATIVE) mg/dL Urine Occult Blood Negative (NEGATIVE) Urine Nitrite Negative (NEGATIVE) Urine Bilirubin Negative (NEGATIVE) Urine Urobilinogen 0.2 (0.2-1.0) EU/dL Ur Leukocyte Esterase Trace A (NEGATIVE) Urine RBC 0-2 (0-2) #/HPF Urine WBC 0-2 A (NONE SEEN) #/HPF Ur Squamous Epith Cells Rare (NONE/RARE) #/LPF Urine Crystals None seen (None Seen) #/HPF Urine Bacteria None seen (NONE SEEN) #/HPF Urine Casts None seen (NONE SEEN) #/LPF Urine Mucus None seen (NONE SEEN) Ur Culture Indicated? No Imaging Data Chest x-ray: Attestation: I have reviewed the pertinent imaging results. Radiologist's impression: ITS Impressions Chest X-Ray 04/02/24 13:16 IMPRESSION: 1. Suspect mild infiltrates overlying chronic interstitial changes which were also seen on prior study. Electronically authenticated by: EDGAR FARR Date: 04/02/2024 13:48 Abdomen/Pelvis CTA 04/02/24 14:10 IMPRESSION: 1. Borderline aneurysmal dilation of ascending thoracic aorta. 2. Fusiform aneurysm of distal abdominal aorta, 4.8 cm; slightly increased compared to prior study when measured in same plane. 3. No aortic dissection or acute findings. 4. Mild infiltrates versus atelectasis overlying chronic interstitial changes within lung bases. 5. Unremarkable bowel, and kidneys. No acute abdominal or pelvic findings. Electronically authenticated by: EDGAR FARR Date: 04/02/2024 14:44 Chest CTA 04/02/24 14:10 IMPRESSION: 1. Borderline aneurysmal dilation of ascending thoracic aorta. 2. Fusiform aneurysm of distal abdominal aorta, 4.8 cm; slightly increased compared to prior study when measured in same plane. 3. No aortic dissection or acute findings. 4. Mild infiltrates versus atelectasis overlying chronic interstitial changes within lung bases. 5. Unremarkable bowel, and kidneys. No acute abdominal or pelvic findings. Electronically authenticated by: EDGAR FARR Date: 04/02/2024 14:44 ECG Data Attestation: I personally reviewed and interpreted this ECG as follows: (Normal sinus rhythm at a rate of 75 with sinus arrhythmia, left ventricular hypertrophy. No acute ST elevation. EKG reviewed by attending physician) Heart Score History: Moderately Suspicious ECG: NS Repolarization Age: >65 years Risk Factors: >3 Risk Factors/ HX of CAD:2 Troponin: <Normal Limit Total Heart Score Recommendations & Risks:: 6 Discharge Plan Discharge Chief Complaint: Chest Pain Clinical Impression: Chest pain, Non-ST elevated myocardial infarction (non-STEMI) Patient Disposition: [facility] Time of Disposition Decision: 17:25 Discharge Location: [facility] Mode of Transportation: EMS
[2024-04-02 13:33] LABS: INR 1.08; Prothrombin Time 11.4 sec (9.0-11.6)
[2024-04-02] MEDS: NITROGLYCERIN 0.4 MG BOTTLE SL (13:36)
[2024-04-02] MEDS: ONDANSETRON PF 4 MG/2 ML VIAL IV (13:37)
[2024-04-02 13:38] LABS: Troponin I High Sensitivity 29.1 pg/mL (4.0-51.3)
--- NOTE | 2024-04-02 14:10 | CT_ITS ---
The [address] [address] Patient Name: MADALYN FORBES MRN: [id number] date: 1940 Sex: F Assigned Patient Location: ER Current Patient Location: Accession/Order Number: [id number] Exam Date: 04/02/2024 13:50 Report Date: 04/02/2024 14:44 At the request of: SHIVA DE LA FUENTE Procedure: CT angio abdomen pelvis EXAMINATION: CT angio chest, CT angio abdomen pelvis HISTORY: Chest pain, back pain, hx AAA COMPARISON: CT abdomen pelvis 08/30/2023 TECHNIQUE: After obtaining the patient's consent, CT images of the chest, abdomen and pelvis were obtained with non-ionic intravenous contrast material. Axial, Coronal, and Sagittal images. Multi-planar reformatted/3-D images were created to optimize visualization of vascular anatomy. Dose reduction techniques were achieved by using automated exposure control and/or adjustment of mA and/or kV according to patient size and/or use of iterative reconstruction technique. FINDINGS: PULM VASC: No pulmonary embolism or abnormal opacity. LUNGS: Mild chronic interstitial changes and likely overlying mild atelectasis or infiltrates. PLEURA: No mass, effusion, or pneumothorax. ZARIA: No mass or adenopathy. MEDIASTINUM: No mass or adenopathy. CARDIAC: No enlargement, pericardial effusion, or pericardial thickening. CHEST WALL: No mass or axillary adenopathy. AORTA/VASCULAR: Ascending thoracic aorta is upper limits of normal diameter, 3.9 cm. Irregular atherosclerotic plaque within the arch and descending thoracic aorta with 2 small cleft/pockets within the plaque versus focal dissection into the wall. This does not extend any further distally, this likely irregularities within the plaque. Atherosclerotic plaque within the abdominal aorta and branches. Fusiform aneurysmal dilation of distal abdominal aorta, 4.8 x 4.3 cm. CELIAC ARTERY: Normal celiac vessels. SMA: Normal mesenteric vessels. RENAL ARTERIES: Normal renal vessels. LIVER: No enlargement, atrophy, abnormal density, or significant focal lesion. BILIARY: No visible dilatation or calcification. PANCREAS: No lesion, fluid collection, ductal dilatation, or atrophy. SPLEEN: No enlargement or focal lesion. ADRENALS: No mass or enlargement. KIDNEYS: No mass, obstruction, or calcification. BOWEL/MESENTERY: No visible mass, obstruction, or bowel wall thickening. RETROPERITONEUM: No mass or adenopathy. LYMPHNODES: No pelvic lymphadenopathy. BLADDER: No stones or focal wall thickening. PELVIC ORGANS: No appreciable mass. Appropriate for age. ABDOMINAL WALL: No mass or hernia. BONES: Multilevel degenerative changes of the spine. No acute bone abnormality or appreciable bone lesion. OTHER: Negative. CT/CT angio abdomen pelvis IMPRESSION: 1. Borderline aneurysmal dilation of ascending thoracic aorta. 2. Fusiform aneurysm of distal abdominal aorta, 4.8 cm; slightly increased compared to prior study when measured in same plane. 3. No aortic dissection or acute findings. 4. Mild infiltrates versus atelectasis overlying chronic interstitial changes within lung bases. 5. Unremarkable bowel, and kidneys. No acute abdominal or pelvic findings. Electronically authenticated by: EDGAR FARR Date: 04/02/2024 14:44
--- NOTE | 2024-04-02 14:10 | CT_ITS ---
The [address] [address] Patient Name: MADALYN FORBES MRN: [id number] date: 1940 Sex: F Assigned Patient Location: ER Current Patient Location: Accession/Order Number: [id number] Exam Date: 04/02/2024 13:50 Report Date: 04/02/2024 14:44 At the request of: SHIVA DE LA FUENTE Procedure: CT angio chest EXAMINATION: CT angio chest, CT angio abdomen pelvis HISTORY: Chest pain, back pain, hx AAA COMPARISON: CT abdomen pelvis 08/30/2023 TECHNIQUE: After obtaining the patient's consent, CT images of the chest, abdomen and pelvis were obtained with non-ionic intravenous contrast material. Axial, Coronal, and Sagittal images. Multi-planar reformatted/3-D images were created to optimize visualization of vascular anatomy. Dose reduction techniques were achieved by using automated exposure control and/or adjustment of mA and/or kV according to patient size and/or use of iterative reconstruction technique. FINDINGS: PULM VASC: No pulmonary embolism or abnormal opacity. LUNGS: Mild chronic interstitial changes and likely overlying mild atelectasis or infiltrates. PLEURA: No mass, effusion, or pneumothorax. ZARIA: No mass or adenopathy. MEDIASTINUM: No mass or adenopathy. CARDIAC: No enlargement, pericardial effusion, or pericardial thickening. CHEST WALL: No mass or axillary adenopathy. AORTA/VASCULAR: Ascending thoracic aorta is upper limits of normal diameter, 3.9 cm. Irregular atherosclerotic plaque within the arch and descending thoracic aorta with 2 small cleft/pockets within the plaque versus focal dissection into the wall. This does not extend any further distally, this likely irregularities within the plaque. Atherosclerotic plaque within the abdominal aorta and branches. Fusiform aneurysmal dilation of distal abdominal aorta, 4.8 x 4.3 cm. CELIAC ARTERY: Normal celiac vessels. SMA: Normal mesenteric vessels. RENAL ARTERIES: Normal renal vessels. LIVER: No enlargement, atrophy, abnormal density, or significant focal lesion. BILIARY: No visible dilatation or calcification. PANCREAS: No lesion, fluid collection, ductal dilatation, or atrophy. SPLEEN: No enlargement or focal lesion. ADRENALS: No mass or enlargement. KIDNEYS: No mass, obstruction, or calcification. BOWEL/MESENTERY: No visible mass, obstruction, or bowel wall thickening. RETROPERITONEUM: No mass or adenopathy. LYMPHNODES: No pelvic lymphadenopathy. BLADDER: No stones or focal wall thickening. PELVIC ORGANS: No appreciable mass. Appropriate for age. ABDOMINAL WALL: No mass or hernia. BONES: Multilevel degenerative changes of the spine. No acute bone abnormality or appreciable bone lesion. OTHER: Negative. CT/CT angio chest IMPRESSION: 1. Borderline aneurysmal dilation of ascending thoracic aorta. 2. Fusiform aneurysm of distal abdominal aorta, 4.8 cm; slightly increased compared to prior study when measured in same plane. 3. No aortic dissection or acute findings. 4. Mild infiltrates versus atelectasis overlying chronic interstitial changes within lung bases. 5. Unremarkable bowel, and kidneys. No acute abdominal or pelvic findings. Electronically authenticated by: EDGAR FARR Date: 04/02/2024 14:44
[2024-04-02 15:07] LABS: Bilirubin Urine NEGATIVE (NEGATIVE); Blood Urine NEGATIVE (NEGATIVE); Clarity Urine CLEAR (CLEAR); Color Urine LT. YELLOW (YELLOW); Glucose Urine UA NEGATIVE (NEGATIVE); Ketones Urine NEGATIVE (NEGATIVE); Leukocyte Esterase Urine TRACE (NEGATIVE); Nitrite Urine NEGATIVE (NEGATIVE); Protein Urine NEGATIVE (NEG/TRACE); Urobilinogen Urine 0.2 EU/dL (0.2-1.0)
[2024-04-02 15:17] LABS: Urine Microscopic Indicated YES
[2024-04-02 15:42] LABS: Bacteria Urine NONE SEEN #/HPF (NONE SEEN); Cast Seen? NONE SEEN #/LPF (NONE SEEN); Crystals Seen? None Seen #/HPF (None Seen); Mucus Urine NONE SEEN (NONE SEEN); RBC Urine 0-2 #/HPF (0-2); Squamous Epithelial Cell Urine RARE #/LPF (NONE/RARE); Urine Culture Indicated NO; WBC Urine 0-2 #/HPF (NONE SEEN)
[2024-04-02 16:11] LABS: Troponin I High Sensitivity 2178.4 pg/mL (4.0-51.3)
--- NOTE | 2024-04-02 16:15 | ECG_ITS ---
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
[2024-04-02] MEDS: NITROGLYCERIN 2% 1 GRAM PACKET 1 GM TD (17:52)
--- NOTE | 2024-04-02 18:19 | ECG_ITS ---
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
[2024-04-02 19:31] LABS: Troponin I High Sensitivity 6712.2 pg/mL (4.0-51.3)
== END 2024-04-02 21:20 | disposition short-term general hospital (02) ==
PROVIDERS: Physician Assistant; Emergency Provider Emergency Medicine; PCP Family Medicine
DX: I21.4 Non-ST elevation (NSTEMI) myocardial infarction (principal); R07.9 Chest pain, unspecified; I25.2 Old myocardial infarction; Z79.01 Long term (current) use of anticoagulants; I10 Essential (primary) hypertension; Z82.49 Family history of ischemic heart disease and other diseases of the circulatory system; I71.40 Abdominal aortic aneurysm, without rupture, unspecified; I71.20 Thoracic aortic aneurysm, without rupture, unspecified
CPT/HCPCS: 36415; 71045; 71275; 74174; 80053; 81001; 83690; 83880; 84484; 85025; 85610; 93005; 96374; 99285; J2405; Q9966

== ENCOUNTER 2024-05-29 12:06 | Outpatient (OUT) | payer MEDICARE, SELFPAY ==
--- OUTSIDE RECORDS SUMMARY | 2024-05-29 12:15 | XMS_ITS | CCD ---
Author Organization [facility] Care Team Providers Care Security Officer Name Role Phone RIAN ROSS Admitting Unavailable [...] DRAKE Admitting Unavailable KUNTE, DRAKE Attending Unavailable KUNTEDRAKE Consulting Unavailable MISC, DR BARRETT Admitting Unavailable [...] Unavailable Jorge Luis Whitehead Primary Care Provider [phone] Jorge Luis Whitehead DO Primary Care Provider Jorge Luis Whitehead DO Primary Care Provider Gabi Gaona Unavailable Jorge Luis Whitehead DO Primary Care Provider DO Jorge Luis Whitehead Primary Care Provider [phone] MD Simin Lama Attending Provider DRAKE ANAND Attending Unavailable KUNTE, DRAKE Referring Unavailable FURLONG, JORGE LUIS MINDI Primary Care Unavailab le MATTY ANANDARTH Referring Unavailable EMANUELLONG, JORGE LUIS MINDI Primary Care Unavailab SIMIN Burton Attending Unavailable LESTE, DRAKE Referring Unavailable EMANUELLONG, JORGE LUIS MINDI Primary Care Unavailab Amanda Richardson MD Primary Care Provider Pattie PERFORMANCE CONSULTANT, Linette Unavailable Amanda Briones MD Unavailable Jack Rogel MD Primary Care Provider Jorge uLis Whitehead DO Primary Care Provider Jack Rogel MD Primary Care Provider Amanda Briones MD Unavailable Jack Rogel MD Primary Care Provider JACK ROGEL Attending Unavailable JACK ROGEL Attending Unavailable JACK ROGEL Attending Unavailable JACK ROGEL Attending Unavailable JACK ROGEL Attending Unavailable JACK ROGEL Attending Unavailable JACK ROGEL Attending Unavailable JACK ROGEL Attending Unavailable Jack Rogel MD Primary Care Provider Ngoc Wolf MD Admit Provider Gordo Fagan MD Attending Provider Eloise Galicia MD Attending Provider ELOISE GALICIA Referring Unavailable JACK ROGEL Primary Care Unavailable Eloise Galicia Attending Unavailable aJck Rogel Primary Care Unavailable Eloise Galicia Admitting Unavailable Karin Almanza Unavailable Jack Rogel Primary Care Unavailable Ngoc Wolf Admitting Unavailable Gordo Fagan Attending Unavailable Iqra Jimenez Consulting Unavailable Holland Byrne Consulting Unavailable Artemio Walden Consulting Unavail able Esther Hagan Consulting Unavailable Jnausz Dill Consulting Unavailab Neena Guardado Consulting Unavailable Eloise Galicia Consulting Unavailable Tiago Asencio Consulting Unavailab Mayank Kang Consulting Unavailable Masha London Consulting Unavailable ELOISE GALICIA Attending Unavailable JCAK ROGEL Primary Care Unavailable ELOISE GALICIA Attending Unavailable JACK ROGEL Primary Care Unavailable Allergies Allergy Classification Reported Allergen(s) Allergy Type Date of Onset Reaction(s) Facility (6 sources) Amino Acids; Translations: [LISINOPRIL] Drug Allergy 04-05-20 21 Cough [facility] Repository (6 sources) Penicillins; Translations: [PENICILLINS] Drug allergy (disorder) 09-21-19 16 Rash, Rash, dizziness, LOC [facility] Repository (11 sources) Lisinopril Drug Allergy 04-05-20 21 Unknown, Cough, Other [facility] (2 sources) Penicillins Drug Intolerance 04-05-20 21 Other: See Comments [facility] (9 sources) Penicillins Drug Intolerance 04-05-20 21 Other: See Comments, Other [facility] (5 sources) Amino Acids Drug Allergy 02-01-20 22 Other: See Comments [facility] (1 source) Penicillin V Drug Allergy dizziness, LOC [facility] Other (11 sources) Amino Acids Drug Allergy 02-01-20 22 Other [facility] Work Phone: (11 sources) HMG-CoA reductase inhibitor Propensity to adverse reactions 09-09-19 23 Other [facility] Work Phone: (11 sources) Lisinopril Propensity to adverse reactions 04-05-20 21 Cough, Other [facility] (11 sources) Penicillins Drug Intolerance 04-05-20 21 Other [facility] (4 sources) HMG-CoA reductase inhibitor; Translations: [FTLKUHI-WRE-HO A REDUCTASE INHIBITORS] Drug Intolerance 09-09-19 23 Other [facility] Work Phone: (1 source) Lisinopril Drug Allergy 04-02-20 24 [facility] Repository (1 source) Penicillins Drug allergy (disorder) 04-02-20 [facility] Repository (1 source) atorvastatin; Translations: [ATORVASTATIN] Drug Allergy 05-19-19 [facility] 3 Repository Medications Current Medications Medication Drug Class(es) Dates Sig (Normalized) Sig (Original) apixaban 5 mg oral tablet (13 sources) Factor Xa Inhibitor Start: 09-24-2023 take 1 tablet by mouth in the morning apixaban (Eliquis) 5 MG tablet Indications: Paroxysmal atrial fibrillation (CMS/HCC) Take 1 tablet (5 mg) by mouth in the morning and 1 tablet (5 mg) before bedtime. 60 tablet 09/24/2023 Active Start: 07-02-2023 End: 07-30-2024 take 1 tablet by mouth in the morning apixaban (Eliquis) 5 MG tablet Indications: Paroxysmal atrial fibrillation (CMS/HCC) Take 1 tablet (5 mg) by mouth in the morning and 1 tablet (5 mg) before bedtime. 60 tablet 09/24/2023 Active aspirin 81 mg chewable tablet (14 sources) Platelet Aggregation Inhibitor, Nonsteroidal Anti-inflammatory Drug Start: 04-04-2024 take 1 tablet by mouth once daily Aspirin (Children's Aspirin) 81 mg Tablet,Chewable Active 81 MG PO Daily April 04, 2024 12:00am Start: 06-14-2018 End: 04-02-2024 take 1 tablet by mouth once daily Aspirin 81 mg Tablet,Chewable Discontinued 81 MG PO Daily 0 June 14, 2018 12:00am April 02, 2024 10:27pm aspirin 81 mg ca p aspirin low dose 81mg ec Active take 1 tablet by edna th once daily aspirin 81 mg EC tablet Take 1 tablet (81 mg) by mouth once daily. Active aspirin 81 mg ca p aspirin low dose 81mg ec 0 Active Comment on above: aspirin low dose 81m g ec atorvastatin 80 mg oral tablet (5 sources) HMG-CoA Reductase Inhibitor Start: take 1 tablet by mouth once daily in the evening Atorvastatin 80 mg Tablet Active 80 MG PO Every evening April 04, 2024 12:00am Start: 04-18-2023 End: 10-15-2023 take 1 tablet by mouth at bedtime atorvastatin (Lipitor) 20 MG tablet Indications: Acute arterial ischemic stroke, multifocal, posterior circulation, right (CMS/HCC) Take 1 tablet (20 mg) by mouth at bedtime 90 tablet 1 04/18/2023 10/15/2023 Active Start: 06-14-2018 End: 04-02-2024 take 1 tablet by mouth once daily in the evening Atorvastatin 80 mg Tablet Discontinued 80 MG PO Every evening 30 June 14, 2018 12:00am April 02, 2024 10:28pm carvedilol 6.25 mg oral tablet (20 sources) alpha-Adrenergic Jareth, beta-Adrenergic Jareth Start: 04-04-2024 End: 10-20-2024 take 1 tablet by mouth in the morning carvedilol (Coreg) 6.25 MG tablet Indications: Paroxysmal atrial fibrillation (CMS/HCC) Take 1 tablet (6.25 mg) by mouth in the morning and 1 tablet (6.25 mg) in the evening. Take with meals. 04/23/2024 10/20/2024 Active Start: 06-18-2018 End: 09-07-2024 take 1 tablet by mouth in the morning carvedilol (Coreg) 3.125 MG tablet Indications: Paroxysmal atrial fibrillation (CMS/HCC) Take 1 tablet (3.125 mg) by mouth in the morning and 1 tablet (3.125 mg) in the evening. Take with meals. 180 tablet 1 03/11/2024 04/23/2024 Discontinued (Therapy completed) Comment on above: Take 3.125 mg by edna th twice daily with meals. ezetimibe 10 mg oral tablet (11 sources) Dietary Cholesterol Absorption Inhibitor take 1 tablet by mouth in the morning ezetimibe (Zetia) 10 MG tablet Take 10 mg by mouth in the morning. Active levothyroxine sodium 0.025 mg oral capsule (14 sources) l-Thyroxine Start: 04-02-20 take 1 capsule by mouth once daily Levothyroxine 25 mcg capsule Active 25 MCG PO Daily April 02, 2024 12:00am Start: 09-24-2023 End: 03-22-2024 take 1 tablet by mouth once daily levothyroxine (Synthroid) 25 MCG tablet Indications: Hypothyroidism (acquired) (CMS/HCC) Take 1 tablet (25 mcg) by mouth Daily Take on an empty stomach 90 tablet 1 09/24/2023 Active Start: 03-20-2023 End: 06-18-2023 take 1 tablet by mouth once daily levothyroxine (Synthroid, Levoxyl) 25 mcg tablet Take 1 tablet (25 mcg) by mouth once daily. 03/20/2023 Active LOW-DOSE ASPIRIN PO (2 sources) LOW-DOSE ASPIRIN PO Low-Dose Aspirin 0 Active magnesium oxide 400 mg oral tablet (2 sources) Start: End: 5 take 1 tablet by mouth twice daily magnesium oxide (Mag-Ox) 400 mg tablet Indications: Paroxysmal atrial fibrillation (Multi) , History of MT (myocardial infarction) Take 1 tablet (400 mg) by mouth 2 times a day. 180 tablet 3 07/02/2023 07/01/2024 Active 24 hr metoprolol succinate 25 mg extended release oral tablet (2 sources) beta-Adrenergic Jareth Start: End: 5 take 1 tablet by mouth once daily metoprolol succinate XL (Toprol-XL) 25 mg 24 hr tablet Indications: Paroxysmal atrial fibrillation (Multi) , Primary hypertension Take 1 tablet (25 mg) by mouth once daily. Do not crush or chew. 90 tablet 3 07/02/2023 07/01/2024 Active mometasone furoate 1 mg/ml topical cream (8 sources) Corticosteroid Start: Mometasone 0.1 % cream Active 1 APPLIC TOPICAL .PRN April 02, 2024 12:00am Start: 02-11-2024 End: 03-12-2024 mometasone (Elocon) 0.1 % cr eam Indications: Lichen sclerosus Apply 1 application topically Daily 15 g 5 02/11/2024 03/12/2024 mometasone (Eloc on) 0.1 % cream Apply 1 Application topically once daily. Active Multiple Vitamin (MULTIVITAM IN ADULT PO) (11 sources) Multiple Vitamin (MULTIVITAMIN ADULT PO) Multivitamin Active Multiple Vitamin (MULTIVITAMIN ADULT PO) Multivitamin 0 Active ondansetron 4 mg disintegrating oral tablet (9 sources) Serotonin-3 Receptor Antagonist Start: 08-30-2023 take 1 tablet by mouth every six hours as needed ondansetron ODT (Zofran-ODT) 4 MG disintegrating tablet Take 4 mg by mouth every 6 (six) hours if needed 08/30/2023 Active rosuvastatin calcium 5 mg oral tablet (1 source) HMG-CoA Reductase Inhibitor Start: 05-20-2024 End: 08-18-2024 take 1 tablet by mouth in the morning rosuvastatin (Crestor) 5 MG tablet Take 5 mg by mouth in the morning. 05/20/2024 08/18/2024 Active sacubitril 24 mg / valsartan 26 mg oral tablet (12 sources) Angiotensin 2 Receptor Jareth Start: 05-19-2024 take 1 tablet by mouth in the morning Entresto 24-26 MG tablet Take 1 tablet by mouth in the morning and 1 tablet before bedtime. 05/19/2024 Active End: 07-02-2023 take 1 tablet by mouth twice daily sacubitril-valsartan (ENTRESTO) 24-26 mg tablet Entresto 24 mg-26 mg tablet TAKE 1 TABLET BY MOUTH TWICE DAILY Active Entresto Active Comment on above: Entresto 24 mg-26 mg tablet TAKE 1 TABLET BY MOUTH TWICE DAILY spironolactone 25 mg oral tablet (2 sources) Aldosterone Antagonist Start: 04-04-20 End: 05-19-19 spironolactone (Aldactone) 25 MG tablet Take 12.5 mg by mouth in the morning. 05/19/2024 05/19/2025 Active valsartan 40 mg oral tablet (18 sources) Angiotensin 2 Receptor Jareth Start: 04-04-20 take 1 tablet by mouth twice daily Valsartan 40 mg Tablet Active 40 MG PO Twice daily 60 April 04, 2024 12:00am Start: 07-02-2023 End: 09-07-2024 take 1 tablet by mouth once daily valsartan (Diovan) 40 MG tablet Indications: Primary hypertension (CMS/HCC) Take 1 tablet (40 mg) by mouth Daily 90 tablet 1 03/11/2024 09/07/2024 Active Start: 04-03-2023 End: 09-30-2023 take 0.5 tablet by mouth in the morning valsartan (Diovan) 40 MG tablet Indications: Primary hypertension (CMS/HCC) Take 0.5 tablets (20 mg) by mouth in the morning. 45 tablet 1 04/03/2023 09/30/2023 Active Completed/Discontinued Medications Medication Drug Class(es) Dates Sig (Normalized) Sig (Original) clopidogrel 75 mg oral tablet (5 sources) [id number] Platelet Inhibitor Start: 04-18-2023 End: 10-15-2023 take 1 tablet by mouth once daily clopidogrel (Plavix) 75 mg tablet Take 1 tablet (75 mg) by mouth once daily. 0 04/18/2023 07/02/2023 Discontinued (Therapy completed) Start: 06-18-2018 End: 07-13-2019 take 1 tablet by mouth once daily Clopidogrel (Plavix) 75 mg tablet Discontinued 75 MG PO Daily 30 June 18, 2018 12:00am July 11, 2019 11:00pm July 12, 2019 11:03pm 1 ml enoxaparin sodium 100 mg/ml prefilled syringe (2 sources) Low Molecular Weight Heparin Start: 06-18-2018 End: 06-23-2018 Enoxaparin (Lovenox) 100 mg/mL syringe Discontinued 75 MG SUBCUT Daily 3.75 5 June 18, 2018 12:00am June 22, 2018 12:00am June 23, 2018 12:03am iv [...] in the MR contrast administration guidelines link lisinopril 2.5 mg oral tablet (2 sources) Angiotensin Converting Enzyme Inhibitor Start: 06-14-2018 End: 04-02-2024 take 1 tablet by mouth once daily Lisinopril 2.5 mg Tablet Discontinued 2.5 MG PO Daily June 14, 2018 12:00am April 02, 2024 10:28pm metFORMIN hydrochloride 500 mg oral tablet (2 sources) Biguanide Start: 06-14-2018 End: 04-02-2024 Metformin 500 mg tablet Discontinued 250 MG PO Twice daily June 14, 2018 12:00am April 02, 2024 10:28pm Start: 06-14-2018 take 250 mg by mouth twice bhargavi ly Metformin Active 250 MG PO Twice daily June 14, 2018 12:00am nitroglycerin 0.4 mg sublingual tablet (2 sources) Nitrate Vasodilator Start: 06-14-2018 End: 10-12-2018 Nitroglycerin 0.4 mg tablet, sublingual Discontinued 0.4 MG SUBLINGUAL every 5 to 15 minutes as needed for chest pain June 14, 2018 12:00am October 10, 2018 11:00pm October 11, 2018 11:02pm until response; do not exceed 3 doses per episode warfarin sodium 5 mg oral tablet (2 sources) Vitamin K Antagonist Start: 06-18-2018 End: 01-14-2019 take 1 tablet by mouth once daily Warfarin (Coumadin) 5 mg tablet Discontinued 5 MG PO Daily June 18, 2018 12:00am January 12, 2019 11:00pm January 13, 2019 11:03pm Problems Active Problems Problem Classification Problem Date Documented Date Episodic/Chronic Acute cerebrovascular disease (20 sources) Ischemic stroke; Translations: [Cerebral infarction due to unspecified occlusion or stenosis of right posterior cerebral artery] Onset: 04-03-2023 05-25-2023 Chronic Comment on above: March 2023 Acute myocardial infarction (6 sources) Myocardial infarction; Translations: [Non-ST elevation (NSTEMI) myocardial infarction] Onset: 04-02-2024 06-14-2018 Chronic Comment on above: Problem List clean-u p per request of Phys. 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; Translations: [Malignant neoplasm of unspecified site of left female breast] Onset: 04-12-2021 04-12-2021 Chronic Cardiac dysrhythmias (20 sources) Paroxysmal atrial fibrillation; Translations: [Paroxysmal atrial fibrillation] Onset: 06-05-2023 07-02-2023 Chronic Chronic kidney disease (17 sources) Chronic kidney disease stage 3B ; Translations: [Chronic kidney disease, stage 3b (HCC) (CMS/HCC)] Onset: 09-08-2022 05-25-2023 Chronic Conduction disorders (2 sources) Long QT syndrome; Translations: [Long QT syndrome] 06-15-2018 Chronic Comment on above: Problem List clean-u p per request of Phys. EHR Cmte Congestive heart failure; nonhypertensive (3 sources) Heart failure, unspecified; Translations: [Acute on chronic systolic (congestive) heart failure] Onset: 03-28-2021 Chronic Coronary atherosclerosis and other heart disease (20 sources) Atherosclerotic heart disease of [place] coronary artery without angina pectoris; Translations: [Old myocardial infarction] Onset: 03-28-2021 06-15-2018 Chronic Comment on above: Problem List clean-u p per request of Phys. EHR Cmte Diabetes mellitus with complications (15 sources) Type 2 diabetes mellitus; Translations: [Type 2 diabetes mellitus with diabetic chronic kidney disease] Onset: 09-08-2022 05-25-2023 Chronic Diabetes mellitus without complication (5 sources) Type 2 diabetes mellitus without complications; Translations: [Diabetes mellitus] Onset: 03-28-2021 06-14-2018 Chronic Comment on above: no longer needs medi cation, well managed Diseases of white blood cells (1 source) Lymphocytosis; Translations: [Lymphocytosis (symptomatic)] Chronic Disorders of lipid metabolism (16 sources) Hyperlipidemia, unspecified; Translations: [Dyslipidemia] Onset: 03-28-2021 05-25-2023 Chronic Essential hypertension (20 sources) Hypertensive disorder; Translations: [Essential (primary) hypertension] Onset: 09-08-2022 06-14-2018 Chronic Comment on above: Problem List clean-u p per request of Phys. EHR Cmte Hypertension with complications and secondary hypertension (1 source) Hypertensive heart disease with heart failure; Translations: [HTN HEART DISEASE W/HEART FAIL] Onset: 03-28-2021 Chronic Immunizations and screening for infectious disease (2 sources) Contact with and (suspected) exposure to other viral communicable diseases; Translations: [Contact with and (suspected) exposure to other viral communicable diseases] Episodic Late effects of cerebrovascular disease (13 sources) Left hemiparesis; Translations: [Hemiplegia and hemiparesis following cerebral infarction affecting left non-dominant side] Onset: 04-03-2023 05-25-2023 Chronic Other aftercare (1 source) Other alf (current) drug therapy; Translations: [OTH MICA WASHER GLUER CURRENT DRUG THERAPY] Onset: 03-28-2021 Episodic Other aftercare (1 source) 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; Translations: [MICA WASHER GLUER USE ORAL HYPOGLYCEMIC DX] Onset: 03-28-2021 Episodic Other aftercare (2 sources) Treatment changed; Translations: [Other intermission coordinator (current) drug therapy] Onset: 07-02-2023 07-02-2023 Episodic Other aftercare (6 sources) Polypharmacy ; Translations: [Other intermission coordinator (current) drug therapy] Onset: 04-23-2024 04-23-2024 Episodic Other aftercare (2 sources) Encounter for follow-up examination after completed treatment for conditions other than malignant neoplasm; Translations: [Encounter for follow-up examination after completed treatment for conditions other than malignant neoplasm] Onset: 05-19-2024 Episodic Other and ill-defined heart disease (2 sources) Takotsubo cardiomyopathy; Translations: [Takotsubo syndrome] 06-15-2018 Chronic Comment on above: Problem List clean-u p per request of Phys. EHR Cmte Other and ill-defined heart disease (2 sources) Left ventricular cardiac dysfunction; Translations: [Heart disease, unspecified] 06-15-2018 Chronic Comment on above: Problem List clean-u p per request of Phys. EHR Cmte Other and ill-defined heart disease (1 source) Takotsubo syndrome; Translations: [Takotsubo syndrome] Onset: 04-02-2024 Chronic Other circulatory disease (4 sources) Abnormal foot pulse; Translations: [Other specified symptoms and signs involving the circulatory and respiratory systems] 03-11-2024 Episodic Other hereditary and degenerative nervous system conditions (13 sources) Cerebral ventriculomegaly; Translations: [Degenerative disease of nervous system, unspecified] Onset: 04-03-2023 05-25-2023 Chronic Other lower respiratory disease (4 sources) Blue toes; Translations: [Cyanosis] 03-11-2024 Episodic Other nutritional; endocrine; and metabolic disorders (3 sources) Overweight in adulthood with body mass index of 25 or more but less than 30; Translations: [Body mass index (BMI) 25.0-25.9, adult] Onset: 07-02-2023 07-02-2023 Episodic Other screening for suspected conditions (not mental disorders or infectious disease) (7 sources) Encounter for screening mammogram for malignant neoplasm of breast; Translations: [Other abnormal and inconclusive findings on diagnostic imaging of breast] Onset: 05-03-2021 Episodic Other skin disorders (11 sources) Lichen sclerosus et atrophicus; Translations: [Circumscribed scleroderma] Onset: 09-08-2022 09-08-2022 Chronic Other skin disorders (4 sources) Localized swelling, mass and lump, left upper limb; Translations: [LOC SWELL MASS LUMP LT UPPER LIMB] Onset: 03-18-2021 Episodic Other skin disorders (2 sources) Disorder of pigmentation, unspecified; Translations: [Disorder of pigmentation, unspecified] Onset: 05-19-2024 Episodic Other upper respiratory infections (1 source) Acute upper respiratory infection, unspecified Episodic Simi-; endo-; and myocarditis; cardiomyopathy (except that caused by tuberculosis or sexually transmitted disease) (9 sources) Cardiomyopathy; Translations: [Other cardiomyopathies] Onset: 04-04-2024 04-04-2024 Chronic Pulmonary heart disease (15 sources) Pulmonary hypertension, unspecified; Translations: [Other chronic pulmonary heart diseases] Onset: 04-03-2023 05-25-2023 Chronic Residual codes; unclassified (3 sources) Never smoked tobacco; Translations: [Other specified health status] Onset: 07-02-2023 07-02-2023 Episodic Screening and history of mental health and substance abuse codes (4 sources) Patient encounter status; Translations: [Encounter for screening examination for other mental health and behavioral disorders] 05-14-2023 Episodic Secondary malignancies (1 source) Secondary and unspecified malignant neoplasm of axilla and upper limb lymph nodes; Translations: [SEC AND UNS MAL HARRIETT AX AND UP LMB NODES] Onset: 03-28-2021 Chronic Thyroid disorders (3 sources) Hypothyroidism; Translations: [Hypothyroidism, unspecified] Onset: 04-02-2024 04-02-2024 Chronic Unclassified (1 source) CONTACT W/AND (SUSP) EXPOS COVID-19; Translations: [CONTACT W/AND (SUSP) EXPOS COVID-19] Onset: 03-19-2021 Unclassified (1 source) Abdominal aortic aneurysm, without rupture, unspecified; Translations: [Abdominal aortic aneurysm, without rupture, unspecified] Onset: 04-02-2024 Past or Other Problems Problem Classification Problem Date Documented Da te Episodic/Chronic Cancer of cervix (11 sources) Atypical squamous cells of undetermined significance on cervical Papanicolaou smear; Translations: [Atypical squamous cells of undetermined significance on cytologic smear of cervix (ASC-US)] Onset: 03-25-2013 Resolved: 05-14-2023 05-14-2023 Episodic Mood disorders (11 sources) Mood disorders Onset: 05-14-2023 05-14-2023 Other circulatory disease (11 sources) History of cardiomyopathy; Translations: [Personal history of other diseases of the circulatory system] Onset: 09-08-2022 09-08-2022 Episodic Other eye disorders (4 sources) Dermatochalasis of unspecified eye, unspecified eyelid; Translations: [DERMATOCHALASIS UNS EYE UNS EYELID] Onset: 11-02-2020 Episodic Other gastrointestinal disorders (11 sources) Slow transit constipation; Translations: [Slow transit constipation] Onset: 09-08-2022 09-08-2022 Episodic Other nervous system disorders (13 sources) 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; Translations: [White matter disease, unspecified] Onset: 04-03-2023 05-25-2023 Episodic Other nutritional; endocrine; and metabolic disorders (2 sources) Body mass index (BMI) 25.0-25.9, adult; Translations: [Body mass index (BMI) 25.0-25.9, adult] Onset: 07-02-2023 Episodic Other skin disorders (4 sources) Localized swelling, mass and lump, trunk; Translations: [LOCALIZD SWELLING MASS AND LUMP TRUNK] Onset: 01-24-2021 Episodic Residual codes; unclassified (5 sources) Other specified health status; Translations: [Other drug allergy] Onset: 07-02-2023 07-02-2023 Episodic Unclassified (2 sources) Onset: 07-02-2023 07-02-2023 Results Test Name Value Interpretation Reference Range Facility [facility] echo limited [facility] echo [facility] [place] [address] [place] [address] Echocardiogram Signed Patient: Johanny Forbes MR#: [id number] : 1940 Acct:[id number] Age/Sex: 84 / F ADM Date: 05/19/24 Loc: Room: [facility] Attending Dr: Eloise Galicia MD Ordering Provider: Eloise Galicia MD Date of Service: 05/19/24/ [facility] echo limited: HX: OF MT, CHF Copies to: MD Esther Simpson MD Ordering Physician: Eloise Galicia Height: 63 in Weight: 142 lb Performed By: Cecile Beckford RDCS BSA: 1.7 m2 BP: 126/60 mmHg HR: 56 Reason For Study: rule out thrombus.HX: of MT, CHF History: Takotsubo Syndrome. DM. HTN. Aflutter. HLD. CKD. CAD. Abdominal Aortic Aneurysm. CVA. MT. Family history of CAD. Interpretation Summary The left ventricular size and thickness are normal. Ejection Fraction = 45-50%. Mild hypokinesis distal anteroseptal wall and apex When compared to previous study LVEF has improved. Procedure/Quality: A limited two-dimensional transthoracic echocardiogram with injection of contrast agent Definity was performed. Left Ventricle: The left ventricular size and thickness are normal. Ejection Fraction = 45-50%. Mild hypokinesis distal anteroseptal wall and apex. Measurements with Normals IVSd: 1.2 cm (0.7-1.1 cm)LVIDd: 4.0 cm(3.7-5.4 cm) LVPWd: 1.0 cm(0.7-1.1 cm)LVIDs: 3.3 cm(2.3-3.6 cm) Doppler with Normals MMode/2D Measurements Calculations FS: 18.9 % LVLd ap4: 6.6 cm SV(MOD-sp4): 38.0 ml EDV(Teich): 71.6 ml EDV(MOD-sp4): 83.1 ml ESV(Teich): 43.3 ml LVLs ap4: 5.3 cm EF(Teich): 39.5 % ESV(MOD-sp4): 45.1 ml EF(MOD-sp4): 45.7 % Doppler Measurements Calculations MR max lore: 514.6 cm/sec TV max P.0 mmHg TR max lore: 262.4 cm/sec MR max P.9 mmHg TR max P.5 mmHg ___ Transcribed By: SCV Performed At: 05/19/24 1536 Signed By: Esther Hagan MD 05/19/24 1701 Normal [facility] echo transthoracicon [facility] echo transthoracic [facility] [place] [address] Echocardiogram Signed Patient: Johanny Forbes MR#: [id number] : 1940 Acct:[id number] Age/Sex: 83 / F ADM Date: 04/02/24 Loc: Room: [address] [place] [address] Type: ADM IN Attending Dr: Gordo Fagan MD Ordering Provider: Gordo Fagan MD Date of Service: 04/03/24 [facility] echo transthoracic: ACS, NSTEMI Copies to: Holland Byrne MD, [facility] Gordo Fagan MD Height: 63 in Weight: 142 lb Performed By: Shana Geiger RDCS BSA: 1.7 m2 BP: 134/73 mmHg HR: 57 Reason For Study: ACS, NSTEMI History: Hypertension,DM,Takotsubo syndrome, Prolonged QT syndrome, CAD, NSTEMI, LV dysfunction Interpretation Summary The left ventricular size and thickness are normal. There are regional wall motion abnormalities as specified. Severe hypokinesis involving distal septum, apex anterior and distal inferior wall Ejection Fraction = 30-35%. A variety of Doppler measurements indicate impaired left ventricular relaxation, which is associated with grade I/IV or mild diastolic dysfunction. Mitral valve annulus tissue Doppler imaging is consistent with elevated left atrial pressure. Compared to the prior echo report on 06/17/2018, there is no significant change. Procedure/Quality: A two-dimensional transthoracic echocardiogram with color flow and Doppler was performed. The study was technically good in quality. Compared to the prior echo report on 06/17/2018, there is no significant change. Left Ventricle: The left ventricular size and thickness are normal. Ejection Fraction = 30-35%. A variety of Doppler measurements indicate impaired left ventricular relaxation, which is associated with grade I/IV or mild diastolic dysfunction. Mitral valve annulus tissue Doppler imaging is consistent with elevated left atrial pressure. There are regional wall motion abnormalities as specified. Severe hypokinesis involving distal septum, apex anterior and distal inferior wall. Left Atrium: The left atrium appears normal in size. The atrial septum appears normal. Right Atrium: The right atrium appears normal in size. Right Ventricle: The right ventricular size, thickness and function are normal. Aortic Valve: The aortic valve is mildly calcified. Mitral Valve: The mitral valve is moderately sclerotic. Tricuspid Valve: The tricuspid valve is normal in structure. Pulmonic Valve: The pulmonic valve is not well seen, but is grossly normal. Arteries: The aortic root is normal size. Pericardium/Pleura: No pericardial effusion seen. There is no pleural effusion. IVC/Hepatic Veins: The IVC is normal in size with an inspiratory collapse of greater then 50%, suggesting normal right atrial pressure. Miscellaneous: No thrombus, vegetation or mass is seen. Measurements with Normals IVSd: 1.2 cm (0.7-1.1 cm)LVIDd: 4.6 cm (3.7-5.4 cm) LVPWd: 0.88 cm (0.7-1.1 cm)LVIDs: 3.0 cm (2.3-3.6 cm) LA dimension: 3.2 cm (2.3-4.0 cm)Ao root diam: 3.1 cm(2.0-3.6 cm) asc Aorta Diam: 3.7 cm(2.1-3.4cm) Doppler with Normals LV V1 max: 86.5 cm/sec (0.7-1.7m/s)MV E max lore: 55.7 cm/sec(0.8-1.3m/s) MV A max lore: 97.4 cm/sec(0.0-0.0m/s) MV E/A: 0.57 (<1.5) MMode/2D Measurements Calculations RVDd: 2.8 cm FS: 35.1 % Ao root area: LVOT diam: 2.0 cm TAPSE: 1.4 cm EDV(Teich): 7.6 cm2 LVOT area: 3.0 cm2 RV S Lore: 96.7 ml 7.8 cm/sec ESV(Teich): 34.3 ml EF(Teich): 64.5 % __ LVLd ap4: 7.6 cm SV(MOD-sp4): LAV(MOD-sp4): LA A2 area: 16.4 cm2 EDV(MOD-sp4): 31.2 ml 47.1 ml 87.2 ml LAV(MOD-sp2): LA A4 area: 19.0 cm2 LVLs ap4: 7.0 cm 48.6 ml LA length (vol): ESV(MOD-sp4): 6.1 cm 56.0 ml LA vol: 43.1 ml EF(MOD-sp4): 35.8 % LA vol index: 25.8 ml/m2 Doppler Measurements Calculations MV dec time: E/E' lat: 17.7 MV dec slope: Ao V2 max: 0.16 sec E/E' med: 16.5 106.9 cm/sec 352.5 cm/sec2 Ao max P.6 mmHg Ao mean P.1 mmHg Ao V2 mean: 72.8 cm/sec Ao V2 VTI: 21.3 cm ROSA(I,D): 2.9 cm2 ROSA(V,D): 2.4 cm2 __ LV V1 max PG: PI end-d lore: RAP systole: 3.0 mmHg 3.0 mmHg 137.0 cm/sec LV V1 mean P.6 mmHg LV V1 mean: 62.2 cm/sec LV V1 VTI: 20.4 cm ___ Transcribed By: SCV Performed At: 04/04/24 0901 Signed By: Holland Byrne MD, [facility] 04/04/24 1051 Normal [facility] Anti-Xa UF Heparinon 024 Anti-Xa UF Heparin 0.69 [IU]/mL Normal 0.30-0.70 [facility] Comment on above: Order Comment: DRAW AT 0645 Result Comment: Use the aPTT protocol when triglycerides are > 800 mg/dL, total bilirubin is > 20 mg/dL and/or patient has received a DOAC, Fondaparinux or LMWH within 72 hours AND baseline anti-Xa level is > 0.7 units/mL PERFORMED BY: [place] [id number] PATHOLOGIST LOCKSTITCH T[employer]NEL ELASTIC OPERATOR ANKUSH FARMER M.D. Performed By: #### U FHEP #### [address] Basic Metabolic Panelon 03-16 Anion gap [Moles/Vol] 11.4 mmol/L Normal 6.0-15.0 [facility] Comment on above: Performed By: #### L IPID, CBC, TSH3, BMP, MG, HS TROP #### [place] [address] [place] Calcium [Mass/Vol] 8.5 mg/dL Low 8.6-10.3 The [facility] Comment on above: Performed By: #### L IPID, CBC, TSH3, BMP, MG, HS TROP #### [place] [address] [place] Chloride [Moles/Vol] 108 mmol/L High 98-107 [facility] Comment on above: Performed By: #### L IPID, CBC, TSH3, BMP, MG, HS TROP #### [facility] [address] CO2 [Moles/Vol] 23.8 mmol/L Normal 21.0-31.0 The [facility] Comment on above: Performed By: #### L IPID, CBC, TSH3, BMP, MG, HS TROP #### [facility] [address] Creatinine [Mass/Vol] 1.44 mg/dL High 0.60-1.20 [facility] Comment on above: Performed By: #### L IPID, CBC, TSH3, BMP, MG, HS TROP #### [facility] [address] Creatinine Clr Calc Pharmacy 27.31 Normal [facility] Comment on above: Performed By: #### L IPID, CBC, TSH3, BMP, MG, HS TROP #### [facility] [address] Estimated GFR 36.314 mL/Min Normal The [facility] Comment on above: Performed By: #### L IPID, CBC, TSH3, BMP, MG, HS TROP #### [address] Glucose [Mass/Vol] 180 mg/dL High 70-100 The [facility] Comment on above: Result Comment: [facility] Glucose Reference Range is dependent on time and content of last meal. Glucose of more than 200 mg/dL in a nonstressed, ambulatory subject supports the diagnosis of Diabetes Mellitus. ADA recommended reference range Performed By: #### L IPID, CBC, TSH3, BMP, MG, HS TROP #### [facility] [address] Potassium [Moles/Vol] 4.2 mmol/L Normal 3.5-5.1 [facility] Comment on above: Performed By: #### L IPID, CBC, TSH3, BMP, MG, HS TROP #### [facility] [address] [place] [address] [place] Sodium [Moles/Vol] 139 mmol/L Normal 136-145 The [facility] Comment on above: Performed By: #### L IPID, CBC, TSH3, BMP, MG, HS TROP #### [facility] [address] [place] [address] [place] Urea nitrogen [Mass/Vol] 25 mg/dL Normal 7-25 [facility] Comment on above: Performed By: #### L IPID, CBC, TSH3, BMP, MG, HS TROP #### [facility] [address] [place] [address] [place] Basophils Auto (Bld) [#/Vol] Ordered By: Yelitza Brock on 04-03-2024 Basophils (Bld) [#/Vol] Automated basophil count 0.0-0.2 [facility] Basophils/100 WBC Auto (Bld) Ordered By: Yelitza Brock on 04-03-2024 Basophils/100 WBC (Bld) Automated basophil % . [facility] Calcium [Mass/volume] in Ser um or PlasmaOrdered By: Yelitza Brock on 04-03-2024 Calcium [Mass/Vol] Calcium [Mass/volume ] in Serum or Plasma Low 8.6-10.3 [facility] Carbon dioxide, total [Moles /volume] in Serum or PlasmaOrdered By: Yelitza Brock on 04-03-2024 CO2 [Moles/Vol] Carbon dioxide, tota l [Moles/volume] in Serum or Plasma 21.0-31.0 [facility] Chloride [Moles/volume] in S gerardo or PlasmaOrdered By: Yelitza Brock on 04-03-2024 Chloride [Moles/Vol] Chloride [Moles/vol ume] in Serum or Plasma High 98-107 [facility] Cholesterol [Mass/volume] in Serum or PlasmaOrdered By: Yelitza Brock on 04-03-2024 Cholesterol [Mass/Vol] Cholesterol [Mass /volume] in Serum or Plasma High 140-200 [facility] Comment on above: Chol less than 200 m g/dl low riskChol 201-239 mg/dl borderline riskChol 240 mg/dl and greater high risk Cholesterol in HDL [Mass/vol ume] in Serum or PlasmaOrdered By: Yelitza Brock on 04-03-2024 Cholesterol in HDL [Mass/Vol] Serum or plasma high density lipoprotein (HDL) cholesterol measurement 23 [facility] Comment on above: HDL CHOL ATP-III CLA SSIFICATION Cardiovascular RiskHDL > or equal to 60 mg/dL LOWHDL < 40 mg/dL HIGH Cholesterol in LDL Calc [Mas s/Vol]Ordered By: Yelitza Brock on 04-03-2024 Cholesterol in LDL [Mass/Vol] Cholesterol in LDL [Mass/volume] in Serum or Plasma by calculation High 0-100 [facility] Comment on above: LDL ATP III CLASSIFI CATIONLDL less than 100 mg/dL OptimalLDL 100-129 mg/dL Near or above optimalLDL 130-159 mg/dL Borderline highLDL 160-189 mg/dL HighLDL greater than 189 mg/dL Very high Cholesterol in VLDL Calc [Ma ss/Vol]Ordered By: Yelitza Brock on 04-03-2024 Cholesterol in VLDL [Mass/Vol] Cholesterol in VLDL [Mass/volume] in Serum or Plasma by calculation [facility] Complete Blood Count Auto Di ffon 04-03-2024 Basophils (Bld) [#/Vol] 0.1 10*3/uL Normal 0.0-0.2 [facility] Comment on above: Result Comment: PERF ORMED BY: [place] [id number] PATHOLOGIST LOCKSTITCH TUNNEL ELASTIC OPERATOR ANKUSH FARMER M.D. Performed By: #### L IPID, CBC, TSH3, BMP, MG, HS TROP #### [facility] [address] [place] [address] [place] Basophils/100 WBC (Bld) 0.7 % Normal . [facility] Comment on above: Performed By: #### L IPID, CBC, TSH3, BMP, MG, HS TROP #### [facility] [address] [place] [address] [place] Eosinophils (Bld) [#/Vol] 0.6 10*3/uL High 0.0-0.45 [facility] Comment on above: Performed By: #### L IPID, CBC, TSH3, BMP, MG, HS TROP #### [facility] [address] [place] [address] Eosinophils/100 WBC (Bld) 6.3 % Normal . [facility] Comment on above: Performed By: #### L IPID, CBC, TSH3, BMP, MG, HS TROP #### [address] Erythrocyte distribution width (RBC) [Ratio] 14.0 % Normal 11.9-15.3 [facility] Comment on above: Performed By: #### L IPID, CBC, TSH3, BMP, MG, HS TROP #### [address] Hematocrit (Bld) [Volume fraction] 32.1 % Low 34.0-46.4 [facility] Comment on above: Performed By: #### L IPID, CBC, TSH3, BMP, MG, HS TROP #### [address] Hemoglobin (Bld) [Mass/Vol] 10.9 g/dL Low 11.8-15.4 [facility] Comment on above: Performed By: #### L IPID, CBC, TSH3, BMP, MG, HS TROP #### [address] Lymphocytes (Bld) [#/Vol] 3.5 10*3/uL Normal 1.00-4.8 [facility] Comment on above: Performed By: #### L IPID, CBC, TSH3, BMP, MG, HS TROP #### [address] Lymphocytes/100 WBC (Bld) 36.7 % Normal . [facility] Comment on above: Performed By: #### L IPID, CBC, TSH3, BMP, MG, HS TROP #### [address] MCH (RBC) [Entitic mass] 30.3 pg Normal 24.7-34.3 [facility] Comment on above: Performed By: #### L IPID, CBC, TSH3, BMP, MG, HS TROP #### [address] MCV (RBC) [Entitic vol] 88.9 fL Normal 80-100 [facility] Comment on above: Performed By: #### L IPID, CBC, TSH3, BMP, MG, HS TROP #### [address] Mean Corpuscular HGB Conc 34.1 g/dL Normal 32.0-35.0 [facility] Comment on above: Performed By: #### L IPID, CBC, TSH3, BMP, MG, HS TROP #### [address] Monocytes (Bld) [#/Vol] 0.5 10*3/uL Normal 0.0-0.8 [facility] Comment on above: Performed By: #### L IPID, CBC, TSH3, BMP, MG, HS TROP #### [address] Monocytes/100 WBC (Bld) 5.3 % Normal . [facility] Comment on above: Performed By: #### L IPID, CBC, TSH3, BMP, MG, HS TROP #### [address] Neutrophils (Bld) [#/Vol] 4.9 10*3/uL Normal 1.8-7.7 [facility] Comment on above: Performed By: #### L IPID, CBC, TSH3, BMP, MG, HS TROP #### [address] Neutrophils/100 WBC (Bld) 51.0 % Normal . [facility] Comment on above: Performed By: #### L IPID, CBC, TSH3, BMP, MG, HS TROP #### [address] NRBC% 0.1 /100{WBC} Normal 0-0.5 The [facility] Comment on above: Performed By: #### L IPID, CBC, TSH3, BMP, MG, HS TROP #### [address] [place] [address] [place] Platelet mean volume (Bld) [Entitic vol] 8.2 fL Normal 6.3-10.7 The [facility] Comment on above: Performed By: #### L IPID, CBC, TSH3, BMP, MG, HS TROP #### [facility] [address] [place] [id number] [facility] Platelets (Bld) [#/Vol] 214 10*3/uL Normal 150-450 [facility] Comment on above: Performed By: #### L IPID, CBC, TSH3, BMP, MG, HS TROP #### [facility] [address] [place] [address] [place] RBC (Bld) [#/Vol] 3.61 10*6/uL Normal 3.60-5.00 The [facility] Comment on above: Performed By: #### L IPID, CBC, TSH3, BMP, MG, HS TROP #### [facility] [address] [place] [address] [place] WBC (Bld) [#/Vol] 9.6 10*3/uL Normal 3.8-11.6 The [facility] Comment on above: Performed By: #### L IPID, CBC, TSH3, BMP, MG, HS TROP #### [facility] [address] Creatinine [Mass/volume] in Serum or PlasmaOrdered By: Yelitza Brock on 04-03-2024 Creatinine [Mass/Vol] Creatinine [Mass/v olume] in Serum or Plasma High 0.60-1.20 [facility] Eosinophils Auto (Bld) [#/Vo l]Ordered By: Yelitza Brock on 04-03-2024 Eosinophils (Bld) [#/Vol] Automated eosinophil count High 0.0-0.45 [facility] Eosinophils/100 WBC Auto (Bl d)Ordered By: Yelitza Brock on 04-03-2024 Eosinophils/100 WBC (Bld) Automated eosinophil % . [facility] Erythrocyte distribution wid th Auto (RBC) [Ratio]Ordered By: Yelitza Brock on 04-03-2024 Erythrocyte distribution width (RBC) [Ratio] Erythrocyte distribution width [Ratio] by Automated count 11.9-15.3 [facility] Glucose [Mass/volume] in Ser um or PlasmaOrdered By: Yelitza Brock on 04-03-2024 Glucose [Mass/Vol] Glucose [Mass/volume ] in Serum or Plasma High 70-100 [facility] Comment on above: ADA recommended refe rence rangeRandom Glucose Reference Range is dependent on time and content of last meal. Glucose of more than 200 mg/dL in a nonstressed, ambulatory subject supports the diagnosis of Diabetes Mellitus. Hematocrit Auto (Bld) [Volum e fraction]Ordered By: Yelitza Brock on 04-03-2024 Hematocrit (Bld) [Volume fraction] Hematocrit [Volume Fraction] of Blood by Automated count Low 34.0-46.4 [facility] Hemoglobin [Mass/volume] in BloodOrdered By: Yelitza Brock on 04-03-2024 Hemoglobin (Bld) [Mass/Vol] Hemoglobin [Mass/volume] in Blood Low 11.8-15.4 [facility] Heparin anti-Xa unfractionat edOrdered By: Yelitza Brock on 04-03-2024 Heparin unfractionated Chromogenic method Qn (PPP) Heparin anti-Xa unfractionated 0.30-0.70 [facility] Comment on above: Use the aPTT protoco l when triglycerides are > 800 mg/dL,total bilirubin is > 20 mg/dL and/or patient has received aDOAC, Fondaparinux or LMWH within 72 hours AND baselineanti-Xa level is > 0.7 units/mL Leukocytes [#/volume] correc maryjane for nucleated erythrocytes in Blood by Automated counOrdered By: Yelitza Brock on 04-03-2024 WBC corrected for nucl RBC Auto (Bld) [#/Vol] Leukocytes [#/volume] corrected for nucleated erythrocytes in Blood by Automated coun 3.8-11.6 [facility] Lipid Panelon 04-03-2024 Cholesterol [Mass/Vol] 211 mg/dL High 140-200 [facility] e [facility] Comment on above: Result Comment: Chol less than 200 mg/dl low risk Chol 201-239 mg/dl borderline risk Chol 240 mg/dl and greater high risk Performed By: #### L IPID, CBC, TSH3, BMP, MG, HS TROP #### [facility] [address] Cholesterol in HDL [Mass/Vol] 25 mg/dL Normal 23-92 [facility] Comment on above: Result Comment: HDL CHOL ATP-III CLASSIFICATION Cardiovascular Risk HDL > or equal to 60 mg/dL LOW HDL < 40 mg/dL HIGH Performed By: #### L IPID, CBC, TSH3, BMP, MG, HS TROP #### [facility] [address] Cholesterol.total/Chol esterol in HDL [Mass ratio] 8.4 {ratio} Normal <5.0 [facility] Comment on above: Performed By: #### L IPID, CBC, TSH3, BMP, MG, HS TROP #### [facility] [address] LDL Cholesterol,Calculated 142 mg/dL High 0-100 The [facility] Comment on above: Result Comment: LDL ATP III CLASSIFICATION LDL less than 100 mg/dL Optimal LDL 100-129 mg/dL Near or above optimal LDL 130-159 mg/dL Borderline high LDL 160-189 mg/dL High LDL greater than 189 mg/dL Very high Performed By: #### L IPID, CBC, TSH3, BMP, MG, HS TROP #### [address] Triglyceride w/Reflex 221 mg/dL High 0-149 [facility] Comment on above: Result Comment: TRIG ATP III CLASSIFICATION TRIG less than 150 mg/dL Normal TRIG 150-199 mg/dL Borderline high TRIG 200-500 mg/dL High TRIG greater than 500 mg/dL Very high Standard traceable to the Center for Disease Conrtrol and Prevention (CDC) test method. Performed By: #### L IPID, CBC, TSH3, BMP, MG, HS TROP #### [facility] [address] VLDL CHOLESTEROL 44 mg/dL Normal The [facility] Comment on above: Performed By: #### L IPID, CBC, TSH3, BMP, MG, HS TROP #### [facility] [address] [place] [address] [place] Lymphocytes Auto (Bld) [#/Vo l]Ordered By: Yelitza Brock on 04-03-2024 Lymphocytes (Bld) [#/Vol] Lymphocytes [#/volume] in Blood by Automated count 1.00-4.8 [facility] Lymphocytes/100 WBC Auto (Bl d)Ordered By: Yelitza Brock on 04-03-2024 Lymphocytes/100 WBC (Bld) Lymphocytes/100 leukocytes in Blood by Automated count . [facility] MCH Auto (RBC) [Entitic mass ]Ordered By: Yelitza Brock on 04-03-2024 MCH (RBC) [Entitic mass] MCH [Entitic mass] by Automated count 24.7-34.3 [facility] MCHC Auto (RBC) [Mass/Vol]Or dered By: Yelitza Brock on 04-03-2024 MCHC (RBC) [Mass/Vol] MCHC [Mass/volume] by Automated count 32.0-35.0 [facility] MCV Auto (RBC) [Entitic vol] Ordered By: Yelitza Brock on 04-03-2024 MCV (RBC) [Entitic vol] MCV [Entitic volume] by Automated count 80-100 [facility] Magnesiumon 04-03-2024 Magnesium [Mass/Vol] 2.0 mg/dL Normal 1.9-2.7 [facility] Comment on above: Performed By: #### L IPID, CBC, TSH3, BMP, MG, HS TROP #### [address] Magnesium [Mass/volume] in S gerardo or PlasmaOrdered By: Yelitza Brock on 04-03-2024 Magnesium [Mass/Vol] Magnesium [Mass/vol ume] in Serum or Plasma 1.9-2.7 [facility] Monocytes Auto (Bld) [#/Vol] Ordered By: Yelitza Brock on 04-03-2024 Monocytes (Bld) [#/Vol] Automated blood monocyte count 0.0-0.8 [facility] Monocytes/100 WBC Auto (Bld) Ordered By: Yelitza Brock on 04-03-2024 Monocytes/100 WBC (Bld) Automated monocyte % . [facility] Neutrophils Auto (Bld) [#/Vo l]Ordered By: Yelitza Brock on 04-03-2024 Neutrophils (Bld) [#/Vol] Neutrophils [#/volume] in Blood by Automated count 1.8-7.7 [facility] Neutrophils/100 WBC Auto (Bl d)Ordered By: Yelitza Brock on 04-03-2024 Neutrophils/100 WBC (Bld) Automated neutrophil % . [facility] No Panel InformationOrdered By: Yelitza Brock on 04-03-2024 Estimated GFR (CKD-EPI) 36.314 mL/Min [facility] Creatinine Clearance (Chem 27.31 [facility] Nucleated erythrocytes [Pres ence] in Blood by Automated countOrdered By: Yelitza Brock on 04-03-2024 Nucleated RBC Auto Ql (Bld) Nucleated erythrocytes [Presence] in Blood by Automated count 0-0.5 [facility] Platelet mean volume Auto (B ld) [Entitic vol]Ordered By: Yelitza Brock on 04-03-2024 Platelet mean volume (Bld) [Entitic vol] Platelet mean volume [Entitic volume] in Blood by Automated count 6.3-10.7 [facility] Platelets Auto (Bld) [#/Vol] Ordered By: Yelitza Brock on 04-03-2024 Platelets (Bld) [#/Vol] Platelets [#/volume] in Blood by Automated count 150-450 [facility] Potassium [Moles/volume] in Serum or PlasmaOrdered By: Yelitza Brock on 04-03-2024 Potassium [Moles/Vol] Potassium [Moles/v olume] in Serum or Plasma 3.5-5.1 [facility] RBC Auto (Bld) [#/Vol]Ordere d By: Yelitza Brock on 04-03-2024 RBC (Bld) [#/Vol] Erythrocytes [#/volu me] in Blood by Automated count 3.60-5.00 [facility] Serum or plasma anion gap de terminationOrdered By: Yelitza Brock on 04-03-2024 Anion gap [Moles/Vol] Serum or plasma an ion gap determination 6.0-15.0 [facility] Serum or plasma total choles terol/high density lipoprotein (HDL) cholesterol mass ratOrdered By: Yelitza Brock on 04-03-2024 Cholesterol.total/Chol esterol in HDL [Mass ratio] Serum or plasma total cholesterol/high density lipoprotein (HDL) cholesterol mass rat <5.0 [facility] Sodium [Moles/volume] in Ser um or PlasmaOrdered By: Yelitza Brock on 04-03-2024 Sodium [Moles/Vol] Sodium [Moles/volume ] in Serum or Plasma 136-145 [facility] Thyroid Stimulating Hormoneo n 04-03-2024 TSH Qn 5.21 m[IU]/L Normal 0.45-5.33 The [facility]ated [facility] Comment on above: Result Comment: PERF ORMED BY: [place] [id number] PATHOLOGIST LOCKSTITCH TUNNEL ELASTIC OPERATOR ANKUSH FARMER M.D. Performed By: #### L IPID, CBC, TSH3, BMP, MG, HS TROP #### [place] [id number] [facility] Thyrotropin [Units/volume] i n Serum or PlasmaOrdered By: Yelitza Brock on 04-03-2024 TSH Qn Thyrotropin [Units/volume] in Serum or Plasma 0.45-5.33 [facility] Triglyceride [Mass/volume] i n Serum or PlasmaOrdered By: Yelitza Brock on 04-03-2024 Triglyceride [Mass/Vol] Triglyceride [Mass/volume] in Serum or Plasma High 0-149 [facility] Comment on above: TRIG ATP III CLASSIF ICATIONTRIG less than 150 mg/dL NormalTRIG 150-199 mg/dL Borderline highTRIG 200-500 mg/dL High TRIG greater than 500 mg/dL Very highStandard traceable to the Center for Disease Conrtrol and Prevention (CDC) test method. Troponin I High Sensitivityo n 04-03-2024 Troponin I High Sensitivity 2896.3 pg/mL Off scale high 0.0-15.0 The [facility] Comment on above: Result Comment: Crit ical Result : Called to and read back by: MIGUEL REBOLLEDO at: 04/03/2024 05:12:11 by:[id number] PERFORMED BY: [address] [address] PATHOLOGIST LOCKSTITCH TUNNEL ELASTIC OPERATOR ANKUSH FARMER M.D. Performed By: #### L IPID, CBC, TSH3, BMP, MG, HS TROP #### [address] Troponin I.cardiac [Mass/vol ume] in Serum or Plasma by Detection limit <= 0.01 ng/Ordered By: Yelitza Brock on 04-03-2024 Troponin I.cardiac DL <= 0.01 ng/mL [Mass/Vol] Troponin I.cardiac [Mass/volume] in Serum or Plasma by Detection limit <= 0.01 ng/ Critically high 0.0-15.0 [facility] Comment on above: Critical Result : Ca lled to and read back by: MIGUEL REBOLLEDO at: 04/03/2024 05:12:11 by:[id number] Urea nitrogen [Mass/volume] in Serum or PlasmaOrdered By: Yelitza Brock on 04-03-2024 Urea nitrogen [Mass/Vol] Urea nitrogen [Mass/volume] in Serum or Plasma 11-07 [facility] WBC Auto (Bld) [#/Vol]Ordere d By: Yelitza Brock on 04-03-2024 WBC (Bld) [#/Vol] Leukocytes [#/volume ] in Blood by Automated count 3.8-11.6 [facility] Anti-Xa UF Heparinon 024 Anti-Xa UF Heparin 0.34 [IU]/mL Normal 0.30-0.70 The [facility] Comment on above: Result Comment: Use the aPTT protocol when triglycerides are > 800 mg/dL, total bilirubin is > 20 mg/dL and/or patient has received a DOAC, Fondaparinux or LMWH within 72 hours AND baseline anti-Xa level is > 0.7 units/mL PERFORMED BY: [place] [id number] PATHOLOGIST LOCKSTITCH TUNNEL ELASTIC OPERATOR ANKUSH FARMER M.D. Performed By: #### L IPID, CBC, TSH3, BMP, MG, HS TROP #### [place] [address] [place] ECG 12 lead ECGon 04-02-2024 ECG 12 lead ECG [facility] [place] [address] [place], [place] [id number] Electrocardiograph Report Signed Patient: Johanny Forbes MR#: [id number] : 1940 Acct:[id number] Age/Sex: 83 / F ADM Date: 04/02/24 Loc: 4 Room: [address] [place] [address] Type: ADM IN Attending Dr: Gordo Fagan MD Ordering Provider: Ngoc Wolf MD Date of Service: 04/02/24 ECG/ECG 12 lead ECG: transfer from [facility] Copies to: Test Reason : Blood Pressure : */* mmHG Vent. Rate : 81 BPM Atrial Rate : 81 BPM P-R Int : 146 ms QRS Dur : 106 ms QT Int : 448 ms P-R-T Axes : 18 -34 261 degrees QTcB Int : 520 ms Sinus rhythm with sinus arrhythmia with occasional premature ventricular complexes Left axis deviation Incomplete left bundle branch block Moderate voltage criteria for LVH, may be normal variant Marked T wave abnormality, consider anterolateral ischemia Prolonged QT Abnormal ECG When compared with ECG of 18-Jun-2018 04:42, premature ventricular complexes are now present Incomplete left bundle branch block is now present QT has lengthened Confirmed by CATY MELCHOR [facility] [place] ([id number]) on 04/03/2024 1:26:16 PM Referred By: Electronically Signed By: HOLLAND BYRNE MD [facility] Transcribed By: MUS Signed By Holland Byrne MD, [facility] 04/03/24 1326 Normal The [facility] INR in Platelet poor plasma by Coagulation assayOrdered By: Yelitza Brock on 04-02-2024 INR Coag (PPP) [Relative time] INR in Platelet poor plasma by Coagulation assay [facility] Comment on above: INR Therapeutic Rang e A) Pre- and Peroperative OAT started two weeks before surgery. NOT HIP SURGERY: 1.5 - 2.5 HIP SURGERY: 2 - 3B) Primary and secondary prevention of venous THROMBOSIS: 2 - 3C) Active venous thrombosis, pulmonary embolismand prevention of recurrent venous thrombosis: 2 - 3D) Prevention of arterial thromboembolismincluding patients with mechanical heart valves: 3 - 4.5 Partial Thromboplastin Timeo n 04-02-2024 aPTT Coag (Bld) [Time] 32.6 s Normal 25.1-36.5 Th e [facility] Comment on above: Result Comment: A he matocrit value greater than 55% may lead to inaccurate results in coagulation testing. Patients having hematocrit values >55% require a special collection tube for coagulation studies. Please contact the laboratory at [phone] for redraw instructions. PERFORMED BY: [place] [id number] PATHOLOGIST LOCKSTITCH TUNNEL ELASTIC OPERATOR ANKUSH FARMER M.D. Performed By: #### P TT, PT #### [address] [address] [facility] Prothrombin Time INRon 04-02 INR Coag (PPP) [Relative time] 1.1 {INR} Normal [facility] Comment on above: Result Comment: INR Therapeutic Range A) Pre- and Peroperative OAT started two weeks before surgery. NOT HIP SURGERY: 1.5 - 2.5 HIP SURGERY: 2 - 3 B) Primary and secondary prevention of venous THROMBOSIS: 2 - 3 C) Active venous thrombosis, pulmonary embolism and prevention of recurrent venous thrombosis: 2 - 3 D) Prevention of arterial thromboembolism including patients with mechanical heart valves: 3 - 4.5 Performed By: #### P TT, PT #### [facility] [address] [place], [place] [address] [facility] PT Coag (PPP) [Time] 12.8 s Normal 9.0-12.9 The [facility] Comment on above: Result Comment: A he matocrit value greater than 55% may lead to inaccurate results in coagulation testing. Patients having hematocrit values >55% require a special collection tube for coagulation studies. Please contact the laboratory at [phone] for redraw instructions. Performed By: #### P TT, PT #### [facility] [address] [place] [address] [facility] Prothrombin time (PT)Ordered By: Yelitza Brock on 04-02-2024 PT Coag (PPP) [Time] Prothrombin time (PT) 9.0- 12.9 [facility] Comment on above: A hematocrit value g reater than 55% may lead to inaccurate results in coagulation testing. Patients having hematocrit values >55% require a special collection tube for coagulation studies. Please contact the laboratory at [phone] for redraw instructions. aPTT in Platelet poor plasma by Coagulation assayOrdered By: Yelitza Brock on 04-02-2024 aPTT Coag (PPP) [Time] Activated partial thromboplastin time (aPTT) in platelet poor plasma by coagulation a 25.1-36.5 [facility] Comment on above: A hematocrit value g reater than 55% may lead to inaccurate results in coagulation testing. Patients having hematocrit values >55% require a special collection tube for coagulation studies. Please contact the laboratory at [phone] for redraw instructions. ALBUMIN, RANDOM URINE W/CREA TININEon 03-05-2024 ALBUMIN, URINE 0.8 mg/dL Normal See Note: [facility] Comment on above: Result Comment: Refe rence Range: Reference Range Not established Performed By: #### 6 517, 496 #### [facility] [place] [address] Rewriter: César Dunn MD ALBUMIN/CREATININE RATIO, RANDOM URINE [...] #### 6 517, 496 #### [facility] [place] [address] Rewriter: César Dunn MD Creatinine (U) [Mass/Vol] 49 mg/dL Normal 20-275 [facility] Comment on above: Performed By: #### 6 517, 496 #### [facility] [place] [address] Rewriter: César Dunn MD HEMOGLOBIN A1con 03-05-2024 HEMOGLOBIN [...] By: #### 6 517, 496 #### [facility] [address], [address] [place] [address] Rewriter: César Dunn MD TRANSTHORACIC ECHO (TTE) [facility] 08-09-2023 TRANSTHORACIC ECHO (TTE) COMPLETE [address], [address] [place] [address] TRANSTHORACIC ECHOCARDIOGRAM REPORT Patient Name: JOHANNY ANDREI Reading Physician: [id number] Esther Hagan MD Study Date: 08/09/2023 Ordering Provider: [id number] ELOISE GALICIA MRN/PID: [id number] Fellow: Nurse: Date of /Age: 1 1940 / 83 years 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 Indication: Paroxysmal Atrial Fibrillation, CAD, HTN, Hyperlipidemia, CKD-Stage III, Previous TIA, Mild Pumonary HTN CPT Codes: Echo Complete w Full Doppler-22621 Study Detail: The following Echo studies were [...] mmHg PIEDV: 2.05 m/s PADP: 19.8 mmHg [id number] Esther Hagan MD Electronically signed on 08/09/2023 at 6:28:33 PM Final Normal [facility] US Heart TransthoracicOrdere d By: Esther Hagan on 08-09-2023 Aortic Valve Area by Continuity of Peak Velocity 1.88 cm2 [facility] Work Phone: Aortic Valve Area by Continuity of VTI 2.03 cm2 [facility] Work Phone: AV mn grad 3.0 mmHg [facility] Work Phone: AV pk grad 6.9 mmHg [facility] Work Phone: AV pk lore 1.31 m/s [facility] Work Phone: LV A4C EF 61.9 [facility] Work Phone: LVIDd 3.76 cm [facility] Work Phone: LVOT diam 2.20 cm [facility] Work Phone: MV avg E/e' ratio 9.00 [facility] Work Phone: MV E/A ratio 0.65 [facility] Work Phone: RVSP 21.0 mmHg [facility] Work Phone: [facility] Work Phone: Heart Transthoracicon [address], [place] [address] TRANSTHORACIC ECHOCARDIOGRAM REPORT Patient Name: JOHANNY FORBES Reading Physician: [id number] Esther Hagan MD Study Date: 08/09/2023 Ordering Provider: [id number] ELOISE GALICIA MRN/PID: [id number] Fellow: Nurse: Date of /Age: 1 1940 / 83 years 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 Indication: Paroxysmal Atrial Fibrillation, CAD, HTN, Hyperlipidemia, CKD-Stage III, Previous TIA, Mild Pumonary HTN CPT Codes: Echo Complete w Full Doppler-79603 Study Detail: The following Echo studies were [...] mmHg PIEDV: 2.05 m/s PADP: 19.8 mmHg [id number] Esther Hagan MD Electronically signed on 08/09/2023 at 6:28:33 PM Final [facility] Work Phone: ECG 12 Leadon 07-07-2023 EKG today shows norm al sinus rhythm at 80 bpm MT interval 154 ms QRS duration 104 ms QTc 449 ms minimal voltage criteria for left ventricular hypertrophy pattern of septal myocardial infarction [facility] Work Phone: CNPNon 05-15-2022 CNPN Telephone (NCCAP) ----- JOHANNY FORBES ([id number]) 1940 F Date Time Provider Department 05/15/22 SIMIN LAMA During your visit today, we recorded the following information about you: Honey Tucker 05/15/2022 1:42 PM Signed Patient is [place] at [facility] [place]. Chrissie is calling to request a new order. 1) Diagnostic Bilateral Mammogram 2) US order (that way they have it if needed) ABDIFATAH/Amarilys: If in agreement, can you please place order PERLITA and I will fax back to her? Thanks! Chrissie: Gladys. [phone] Fax. [phone] Honey Lama MD 05/15/2022 2:11 PM Signed [...] lymph node, left (HCC) [C50.912, C77.3] Order(s):[facility] DIAGNOSTIC BILAT [[id number]] Order #: [id number] FUTURE US BREAST LTD LT [[id number]] Order #: [id number] FUTURE US BREAST LTD RT [[id number]] Order #: [id number] FUTURE Prescriptions as of 05/15/2022 - aspirin [...] Encounter Status:Closed by HONEY TUCKER on 05/15/22 [facility] Telephone (SERAFIN) ----- JOHANNY FORBES ([id number]) 1940 F Date Time Provider Department 05/15/22 RU THOMAS During your visit today, we recorded the following information about you: Ru Thomas RN 05/15/2022 2:19 PM Signed Received call from pt stating she is at [facility] and needs mammogram orders sent. Orders faxed [...] Status:Closed by RU THOMAS on 05/15/22 Normal [facility] COVID/FLU RT-PCRon 2 SARS-CoV-2 (COVID-19) RNA DEIDRE+probe Ql (Unsp spec) Negative [employer] Other COVID/FLU RT-PCR Negative [facility] [employer] [facility] ----- JOHANNY FORBES ([id number]) 1940 F Date Time Provider Department 02/13/22 [...] Encounter Status:Closed by SHIVA REYES on 02/13/22 [facility] CNOVSPon 01-31-2022 CNOVSP Visit (SP[facility] ----- JOHANNY FORBES ([id number]) 1940 F Date Time Provider Department 01/31/22 3:15 PM SIMIN LAMA During your visit today, we recorded the following information about you: Temperature Pulse Respiration Blood pressure 97.3 degrees 62/minute 16/minute 142/65 Weight Height 70 kg 1.589 m Simin Lama MD 01/31/2022 3:38 PM Signed PATIENT NAME: Johanny Forbes CLINIC NO.: [id number] ATTENDING PHYSICIAN: Simin Lama MD DATE OF [...] metastatic breast carcinoma, 5 cm, ER 0, MT 0, HER-2 0 by IHC. The tissue was not evaluated for flow cytometry to rule out a lymphoproliferative process. 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 Differential included mammary, skin, urothelial, pancreaticobiliary and pulmonary primaries. ER 0, MT 0, HER-2 negative by CAM[facility]. 2021 PET [...] Rectal: Deferred (more content not included)... Normal [facility] CNPNon 01-31-2022 CNPN Telephone (NCCAP) ----- JOHANNY FORBES ([id number]) 1940 F Date Time Provider Department 01/31/22 [facility] During your visit today, we recorded the following information about you: Honey Tucker 01/31/2022 4:[address] Lama, patient had a previous abnormal L Mammogram and never followed up. He would like L Mammogram completed now. Faxed order to [place] scheduling per patient's hospital request. 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*04/12/2021 Encounter Status:Closed by CAITLIN HONEY on 02/01/22 [facility] Aniket 01-30-2022 CNPN Telephone (HEMTSA) ----- JOHANNY FORBES ([id number]) 1940 F Date Time Provider Department 01/30/22 [...] Fully Assessed Reason for Visit: Patient Question [9037] Prescriptions as of 01/30/2022 - aspirin 81 [...] Status:Closed by AMANDA HENDERSON on 01/30/22 Normal [facility] CNCOon 11-07-2021 CNCO Letter Text Normal [facility] CBC W Auto Differential pane l (Bld)on 07-28-2021 Basophils (Bld) [#/Vol] 0.03 10*3/uL Normal <0.11 [facility] Comment on above: Order Comment: Speci men Type: BLOOD SPECIMENOrdering Facility: [facility] Address: [address] [place] [address] Performed By: #### 5 7021-8 ####[facility] LABCLIA [id number] [place] [address] Basophils/100 WBC (Bld) 0.4 % Normal [facility] Comment on above: Order Comment: Speci men Type: BLOOD SPECIMENOrdering Facility: [facility] Address: [address] [place] [address] Performed By: #### 5 7021-8 ####[facility] LABCLIA [id number] [place] [address] Differential cell count method Nom (Bld) Auto Normal [facility] Comment on above: Order Comment: Speci men Type: BLOOD SPECIMENOrdering Facility: [facility] Address: [address] [place] [address] Performed By: #### 5 7021-8 ####[facility] LABCLIA [id number] [place] [address] Eosinophils (Bld) [#/Vol] 0.29 10*3/uL Normal <0.46 [facility] Comment on above: Order Comment: Speci men Type: BLOOD SPECIMENOrdering Facility: [facility] Address: [address] [place] [address] Performed By: #### 5 7021-8 ####[facility] LABCLIA [id number] [place] [address] Eosinophils/100 WBC (Bld) 3.7 % Normal [facility] Comment on above: Order Comment: Speci men Type: BLOOD SPECIMENOrdering Facility: [facility] Address: [address] [place] [address] Performed By: #### 5 7021-8 ####[facility] LABCLIA [id number] [place] [address] Erythrocyte distribution width (RBC) [Ratio] 13.2 % Normal 11.5-15.0 [facility] Comment on above: Order Comment: Speci men Type: BLOOD SPECIMENOrdering Facility: [facility] Address: [address] [place] [address] Performed By: #### 5 7021-8 ####[facility] LABIA [id number] [place] [address] Hematocrit (Bld) [Volume fraction] 37.6 % Normal 36.0-46.0 [facility] Comment on above: Order Comment: Speci men Type: BLOOD SPECIMENOrdering Facility: [facility] Address: [address] [place] [address] Performed By: #### 5 7021-8 ####[facility] LABCLIA [id number] [place] [address] Hemoglobin (Bld) [Mass/Vol] 12.1 g/dL Normal 11.5-15.5 [facility] Comment on above: Order Comment: Speci men Type: BLOOD SPECIMENOrdering Facility: [facility] Address: [address] [place] [address] Performed By: #### 5 7021-8 ####[facility] LABCLIA [id number] [place] [address] IMMATURE GRAN % 0.3 % Normal [facility] Comment on above: Order Comment: Speci men Type: BLOOD SPECIMENOrdering Facility: [facility] Address: [address] [place] [address] Performed By: #### 5 7021-8 ####[facility] LABCLIA [id number] [place] [address] IMMATURE GRAN ABS <0.03 Normal <0.10 [facility] Comment on above: Order Comment: Speci men Type: BLOOD SPECIMENOrdering Facility: [facility] Address: [address] [place] [address] Performed By: #### 5 7021-8 ####[facility] LABCLIA [id number] [place] [address] Lymphocytes (Bld) [#/Vol] 3.28 10*3/uL Normal 1.00-4.00 [facility] Comment on above: Order Comment: Speci men Type: BLOOD SPECIMENOrdering Facility: [facility] Address: [address] [place] [address] Performed By: #### 5 7021-8 ####[facility] LABIA [id number] [place] [address] Lymphocytes/100 WBC (Bld) 41.8 % Normal [facility] Comment on above: Order Comment: Speci men Type: BLOOD SPECIMENOrdering Facility: [facility] Address: [address] [place] [address] Performed By: #### 5 7021-8 ####[facility] LABIA [id number] [place] [address] MCH (RBC) [Entitic mass] 30.0 pg Normal 26.0-34.0 [facility] Comment on above: Order Comment: Speci men Type: BLOOD SPECIMENOrdering Facility: [facility] Address: [address] [place] [address] Performed By: #### 5 7021-8 ####[facility] LABCLIA [id number] [place] [address] MCHC (RBC) [Mass/Vol] 32.2 g/dL Normal 30.5-36.0 [facility] Comment on above: Order Comment: Speci men Type: BLOOD SPECIMENOrdering Facility: [facility] Address: [address] [place] [address] Performed By: #### 5 7021-8 ####[facility] LABCLIA [id number] [place] [address] MCV (RBC) [Entitic vol] 93.3 fL Normal 80.0-100.0 [facility] Comment on above: Order Comment: Speci men Type: BLOOD SPECIMENOrdering Facility: [facility] Address: [address] [place] [address] Performed By: #### 5 7021-8 ####[facility] LABIA [id number] [place] [address] Monocytes (Bld) [#/Vol] 0.46 10*3/uL Normal <0.87 [facility] Comment on above: Order Comment: Speci men Type: BLOOD SPECIMENOrdering Facility: [facility] Address: [address] [place] [address] Performed By: #### 5 7021-8 ####[facility] LABCLIA [id number] [place] [address] Monocytes/100 WBC (Bld) 5.9 % Normal [facility] Comment on above: Order Comment: Speci men Type: BLOOD SPECIMENOrdering Facility: [facility] Address: [address] [place] [address] Performed By: #### 5 7021-8 ####[facility] LABIA [id number] [place] [address] Neutrophils (Bld) [#/Vol] 3.77 10*3/uL Normal 1.45-7.50 [facility] Comment on above: Order Comment: Speci men Type: BLOOD SPECIMENOrdering Facility: [facility] Address: [address] [place] [address] Performed By: #### 5 7021-8 ####[facility] LABCLIA [id number] [place] [address] Neutrophils/100 WBC (Bld) 47.9 % Normal [facility] Comment on above: Order Comment: Speci men Type: BLOOD SPECIMENOrdering Facility: [facility] Address: [address] [place] [address] Performed By: #### 5 7021-8 ####[facility] LABCLIA [id number] [place] [address] Nucleated RBC (Bld) [#/Vol] 10*3/uL Normal <0.01 [facility] Comment on above: Order Comment: Speci men Type: BLOOD SPECIMENOrdering Facility: [facility] Address: [address] [place] [address] Performed By: #### 5 7021-8 ####[facility] LABCLIA [id number] [place] [address] Nucleated RBC/100 WBC (Bld) [Ratio] 0.0 /100 WBC Normal [facility] Comment on above: Order Comment: Speci men Type: BLOOD SPECIMENOrdering Facility: [facility] Address: [address] [place], [place] [address] Performed By: #### 5 7021-8 ####[facility] LABIA [id number] [place] [address] Platelet mean volume (Bld) [Entitic vol] 10.6 fL Normal 9.0-12.7 [facility] Comment on above: Order Comment: Speci men Type: BLOOD SPECIMENOrdering Facility: [facility] Address: [address] [place], [place] [address] Performed By: #### 5 7021-8 ####[facility] LABCLIA [id number] [place] [address] Platelets (Bld) [#/Vol] 259 10*3/uL Normal 150-400 [facility] Comment on above: Order Comment: Speci men Type: BLOOD SPECIMENOrdering Facility: [facility] Address: [address] [place] [address] Performed By: #### 5 7021-8 ####[facility] LABCLIA [id number] [place] [address] RBC (Bld) [#/Vol] 4.03 10*6/uL Normal 3.90-5.20 [facility] Comment on above: Order Comment: Speci men Type: BLOOD SPECIMENOrdering Facility: [facility] Address: [address] [place] [address] Performed By: #### 5 7021-8 ####[facility] LABCLIA [id number] [place] [address] WBC (Bld) [#/Vol] 7.85 10*3/uL Normal 3.70-11.00 [facility] Comment on above: Order Comment: Speci men Type: BLOOD SPECIMENOrdering Facility: [facility] Address: [address] [place] [address] Performed By: #### 5 7021-8 ####[facility] LABCLIA [id number] [place] [address] Abs Immature Gran <0.03 <0.10 k/uL [facility] Basophils (Bld) [#/Vol] 0.03 10*3/uL <0.11 k/uL [facility] Basophils/100 WBC (Bld) 0.4 % [facility] Differential cell count method Nom (Bld) Auto [facility] Eosinophils (Bld) [#/Vol] 0.29 10*3/uL <0.46 k/uL [facility] Eosinophils/100 WBC (Bld) 3.7 % [facility] Erythrocyte distribution width (RBC) [Ratio] 13.2 % 11.5 - 15.0 % [facility] Hematocrit (Bld) [Volume fraction] 37.6 % 36.0 - 46.0 % [facility] Hemoglobin (Bld) [Mass/Vol] 12.1 g/dL 11.5 - 15.5 g/dL [facility] Immature Gran % 0.3 % [facility] Lymphocytes (Bld) [#/Vol] 3.28 10*3/uL 1.00 - 4.00 k/uL [facility] Lymphocytes/100 WBC (Bld) 41.8 % [facility] MCH (RBC) [Entitic mass] 30.0 pg 26.0 - 34.0 pg [facility] MCHC (RBC) [Mass/Vol] 32.2 g/dL 30.5 - 36.0 g/dL [facility] MCV (RBC) [Entitic vol] 93.3 fL 80.0 - 100.0 fL [facility] Monocytes (Bld) [#/Vol] 0.46 10*3/uL <0.87 k/uL [facility] Monocytes/100 WBC (Bld) 5.9 % [facility] Neutrophils (Bld) [#/Vol] 3.77 10*3/uL 1.45 - 7.50 k/uL [facility] Neutrophils/100 WBC (Bld) 47.9 % [facility] Nucleated RBC (Bld) [#/Vol] 10*3/uL <0.01 k/uL [facility] Nucleated RBC/100 WBC (Bld) [Ratio] 0.0 /100 WBC [facility] Platelet mean volume (Bld) [Entitic vol] 10.6 fL 9.0 - 12.7 fL [facility] Platelets (Bld) [#/Vol] 259 10*3/uL 150 - 400 k/uL [facility] RBC (Bld) [#/Vol] 4.03 10*6/uL 3.90 - 5.20 m/uL [facility] WBC (Bld) [#/Vol] 7.85 10*3/uL 3.70 - 11.00 k/uL [facility] CNOVSPon 07-28-2021 CNOVSP Visit (SP) Office ([place]) ----- JOHANNY FORBES ([id number]) 1940 F Date Time Provider Department 07/28/21 [...] metastatic breast carcinoma, 5 cm, ER 0, MT 0, HER-2 0 by IHC. The tissue was not evaluated for flow cytometry to rule out a lymphoproliferative process. 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 Differential included mammary, skin, urothelial, pancreaticobiliary and pulmonary primaries. ER 0, MT 0, HER-2 negative by CAMERON. ? 2021 [...] today. Fo (more content not included)... Normal [facility] Comprehensive metabolic 2000 panelon 07-28-2021 Albumin [Mass/Vol] 4.2 g/dL Normal 3.9-4.9 [facility] Comment on above: Order Comment: Speci men Type: BLOOD SPECIMENOrdering Facility: [facility] Address: [address] [place] [address] Performed By: #### 2 4323-8 ####[facility] LABCLIA [id number] [place] [address] ALP [Catalytic activity/Vol] 72 U/L Normal 34-123 [facility] Comment on above: Order Comment: Speci men Type: BLOOD SPECIMENOrdering Facility: [facility] Address: [address] [place] [address] Performed By: #### 2 4323-8 ####[facility] LABCLIA [id number] [place] [address] ALT [Catalytic activity/Vol] 7 U/L Normal 7-38 [facility] Comment on above: Order Comment: Speci men Type: BLOOD SPECIMENOrdering Facility: [facility] Address: [address] [place] [address] Performed By: #### 2 4323-8 ####[facility] LABCLIA [id number] [place] [address] Anion gap [Moles/Vol] 7 mmol/L Low 9-18 [facility] Comment on above: Order Comment: Speci men Type: BLOOD SPECIMENOrdering Facility: [facility] Address: [address] [place] [address] Performed By: #### 2 4323-8 ####[facility] LABCLIA [id number] [place] [address] AST [Catalytic activity/Vol] 17 U/L Normal 13-35 [facility] Comment on above: Order Comment: Speci men Type: BLOOD SPECIMENOrdering Facility: [facility] Address: [address] [place] [address] Performed By: #### 2 4323-8 ####[facility] LABCLIA [id number] [place] [address] Bilirubin [Mass/Vol] 0.4 mg/dL Normal 0.2-1.3 [facility] Comment on above: Order Comment: Speci men Type: BLOOD SPECIMENOrdering Facility: [facility] Address: [address] [place] [address] Performed By: #### 2 4323-8 ####[facility] LABCLIA [id number] [place] [address] Calcium [Mass/Vol] 9.8 mg/dL Normal 8.5-10.2 [facility] Comment on above: Order Comment: Speci men Type: BLOOD SPECIMENOrdering Facility: [facility] Address: [address] [place] [address] Performed By: #### 2 4323-8 ####[facility] LABCLIA [id number] [place] [address] Chloride [Moles/Vol] 105 mmol/L Normal 97-105 [facility] Comment on above: Order Comment: Speci men Type: BLOOD SPECIMENOrdering Facility: [facility] Address: [address] [place] [address] Performed By: #### 2 4323-8 ####[facility] LABCLIA [id number] [place] [address] CO2 [Moles/Vol] 26 mmol/L Normal 22-30 [facility] Comment on above: Order Comment: Speci men Type: BLOOD SPECIMENOrdering Facility: [facility] Address: [address] [place] [address] Performed By: #### 2 4323-8 ####[facility] LABCLIA [id number] [place] [address] Creatinine [Mass/Vol] 1.31 mg/dL High 0.58-0.96 [facility] Comment on above: Order Comment: Speci men Type: BLOOD SPECIMENOrdering Facility: [facility] Address: [address] [place] [address] Performed By: #### 2 4323-8 ####[facility] LABCLIA [id number] [place] [address] ESTIMATED GLOMERULAR FILTRATION RATE 41 mL/min/1.73m??? Low >=60 [facility] Comment on above: Order Comment: Speci men Type: BLOOD SPECIMENOrdering Facility: [facility] Address: [address] [place] [address] Result Comment: Nereyda mated Glomerular Filtration Rate [...] actual GFR. Performed By: #### 2 4323-8 ####[facility] LABCLIA [id number] [place] [address] Glucose [Mass/Vol] 129 mg/dL High 74-99 [facility] Comment on above: Order Comment: Speci men Type: BLOOD SPECIMENOrdering Facility: [facility] Address: [address] [place] [address] Result Comment: The [place] Diabetes Association (ADA) provides guidance for cutoff [...] Standards of Medical Care in Diabetes 2016, [place] [employer]. Diabetes Care. 2016.39(Suppl 1). Performed By: #### 2 4323-8 ####[facility] LABCLIA [id number] [place] [address] Potassium [Moles/Vol] 4.6 mmol/L Normal 3.7-5.1 [facility] Comment on above: Order Comment: Speci men Type: BLOOD SPECIMENOrdering Facility: [facility] Address: [address] [place] [address] Performed By: #### 2 4323-8 ####[facility] LABCLIA [id number] [place] [address] Protein [Mass/Vol] 7.5 g/dL Normal 6.3-8.0 [facility] Comment on above: Order Comment: Speci men Type: BLOOD SPECIMENOrdering Facility: [facility] Address: [address] [place] [address] Performed By: #### 2 4323-8 ####[facility] LABCLIA [id number] [place] [address] Sodium [Moles/Vol] 138 mmol/L Normal 136-144 [facility] Comment on above: Order Comment: Speci men Type: BLOOD SPECIMENOrdering Facility: [facility] Address: [address] [address] Performed By: #### 2 4323-8 ####[facility] LABIA [id number] [place] [address] Urea nitrogen [Mass/Vol] 22 mg/dL High 7-21 [facility] Comment on above: Order Comment: Speci men Type: BLOOD SPECIMENOrdering Facility: [facility] Address: [address] [address] Performed By: #### 2 4323-8 ####[facility] LABCLIA [id number] [place] [address] FLOW CYTOMETRY REFLEXon 04- CASE REPORT Normal [facility] Comment on above: Order Comment: Speci men Type: BLOOD SPECIMENOrdering Facility: [facility] Address: [address] [place] [address] Result Comment: Flow Cytometry Case: [id number] Authorizing Provider: Drake Anand MD Collected: 07/28/2021 02:03 PM Ordering Location: Laboratory Medicine Received: 07/29/2021 12:43 PM Pathologist: Tang Oquendo MD Specimen: BLOOD Performed By: #### F LOWREFLEX ####[facility] LABCLIA [id number] [address] [place] GROSS DESCRIPTION A. BLOOD. Normal [facility] Comment on above: Order Comment: Speci men Type: BLOOD SPECIMENOrdering Facility: [facility] Address: [address] [place] [address] Result Comment: Rece ived 4ml of peripheral blood in EDTA. Performed By: #### F LOWREFLEX ####[facility] LABCLIA [id number] [address] [place] INTERPRETATION Normal [facility] Comment on above: Order Comment: Speci men Type: BLOOD SPECIMENOrdering Facility: [facility] Address: [address] [place] [address] Result Comment: Spec imen type: BLOOD CBC [...] Negative CD200 B-cells Positive FMC7 B-cells Positive [place]/Lambda B-cells Monotypic kappa Flow cytometric analysis of [...] developed and its performance characteristics determined by [facility]???s Vignesh Nellie [facility] Pathology and Laboratory Medicine Adel ([facility]). It has not been cleared or approved by the FDA. -[facility] is regulated under CLIA as qualified to perform high-complexity testing. This test is used for clinical purposes. It should not be regarded as investigational or for research. CALI/JUAN MIGUEL 07/29/21 Diagnostic interpretation performed at [facility], [address] [place] [address] CLIA# [id number] Customer Relations Advisor: Bharath Light M.D. Performed By: #### F LOWREFLEX ####[facility] LABCLIA [id number] [address] PERIPHERAL BLOOD LOW GRADE L EUK MARKERS FCon 07-28-2021 FLOW CYTOMETRY ORDER STATUS See Results in chart under F case ID Normal [facility] Comment on above: Order Comment: Speci men Type: BLOOD SPECIMENOrdering Facility: [facility] Address: [address] [place] [address] Performed By: #### P BLGLY ####[facility] LABCLIA [id number] [address] CNPNon 07-22-2021 CNPN Telephone ([place]) ----- JOHANNY FORBES ([id number]) 1940 F Date Time Provider Department 07/22/21 RU BLACKMAN During your visit today, we recorded the following information about you: Ru Blackman, RN 07/22/2021 2:10 PM Signed Received call [...] discuss further. She can be reached at [phone]. ROSA ELENA Esteban MD 07/22/2021 2:38 PM [...] Fully Assessed Reason for Visit: Patient Question [3219] Prescriptions as of 07/22/2021 - aspirin 81 [...] Encounter Status:Closed by RU BLACKMAN on 07/22/21 [facility] JOHANNY FORBES ([id number]) 1940 F Date Time Provider Department 07/01/21 RU BLACKMAN During your visit today, we recorded the following information about you: Ru Blackman RN 07/01/2021 2:07 PM Signed Received call from pt wanting to know if Dr Anand got her results for the genetic testing on her tumor? SJK: Any message for pt? Or she can be reached at [phone]. ROSA ELENA Esteban MD 07/01/2021 2:49 PM [...] Status:Closed by RU BLACKMAN on 07/04/21 Normal [facility] MG MAMM DIAGNOSTIC 3D COY CA Don 05-03-2021 MG MAMM DIAGNOSTIC 3D COY CAD Patient: JOHANNY FORBES Exam Date: 05/03/2021 : 1940 Gender:F Ordering : DRAKE ANAND Admission #: [id number] Family : DR JORGE LUIS WHITEHEAD Order #: [id number] CLICK HERE TO VIEW EXAM RADIOLOGY REPORT PROCEDURE: MAMMOGRAM DIAGNOSTIC 3D BILATERAL CAD COMPARISON: MAMMO SCREEN DIG COY, 01/22/2012. INDICATIONS: Secondary malignant neoplasm of axilla Calculator Name NCI Breast Cancer Risk Assessment Tool 5 Year Breast Cancer Risk n/a% Lifetime Breast Cancer Risk n/a% Personal Breast Cancer Yes Personal Ovarian Cancer No Treatments None Family Cancers None LOCATION: [facility] BREAST COMPOSITION: Scattered areas fibroglandular density. [...] MD on 05/03/2021 at 14:29 Normal [facility] PET+CT Guidance for localiza tion of [...] any questions regarding this interpretation, please call [phone]. If you are unable to reach us at the number above, please feel free to contact [facility] at [phone]. DIVISION OF RADIOLOGY * * *Final Report* [...] to recent biopsy. No destructive osseous lesions. Bench Lathe Operator (topogram) images: No additional findings. DIVISION OF RADIOLOGY Provider, [facility] - 04/26/2021 * * *Final Report* * * DATE OF EXAM: 2021 2:07PM NRN 0060 - [place] PET/CT SKULL-THIGH INIT / PROCEDURE REASON: multiple [...] to recent biopsy. No destructive osseous lesions. Bench Lathe Operator (topogram) images: No additional findings. IMPRESSION IMPRESSION: [...] any questions regarding this interpretation, please call [phone]. If you are unable to reach us at the number above, please feel free to contact [facility] eRadiology at [phone]. [facility] PET+CT Guidance for localiza tion of tumor of Skull base to mid-thigh-- W 18F-FDG IVOrdered By: Ccf Provider on 04-26-2021 [facility] GLUCOSE, BLOOD (POC)on 04-25 Glucose [Mass/Vol] 155 mg/dL Abnormal 74 - 99 mg/dL [facility] Comment on above: Location:[facility], [address] [place] [address] , [place], [place], [address] The Accu-Chek Inform II glucose meter has [...] Interpretation and review of laboratory results Abnormal [facility] PET+CT Guidance for localiza tion of tumor of Skull base to mid-thigh-- W 18F-FDG Michael 2021 Radiology Study observation (narrative) [facility] POINT OF CARE GLUCOSEon 12-0 Glucose [Mass/Vol] 169 mg/dL Critically high 74-106 [facility] Comment on above: Performed By: #### P OCGLUC #### [facility] [address] [place] [address] Dr. Dontae Vallejo CBC AUTO DIFFon 03-14-2021 BASO # 0.1 103/ul Normal 0.0-0.1 [facility] Comment on above: Performed By: #### C BC #### [facility] [address] [place] [address] Dr. Dontae Vallejo Basophils/100 WBC (Bld) 0.6 % Normal 0.2-2.0 [facility] Comment on above: Performed By: #### C BC #### [facility] [address] [place] [address] Dr. Dontae Vallejo EO # 0.4 103/ul Normal 0.0-0.7 [facility] Comment on above: Performed By: #### C BC #### [facility] [address] [place] [address] Dr. Dontae Vallejo Eosinophils/100 WBC (Bld) 4.1 % Normal 0.9-7.0 [facility] Comment on above: Performed By: #### C BC #### [facility] [address] [place] [address] Dr. Dontae Vallejo Erythrocyte distribution width (RBC) [Ratio] 13.1 % Normal 11.0-15.0 [facility] Comment on above: Performed By: #### C BC #### [facility] [address] [place] [address] Dr. Dontae Vallejo Hematocrit (Bld) [Volume fraction] 37.1 % Normal 36.0-48.0 [facility] Comment on above: Performed By: #### C BC #### [facility] [address] [place] [address] Dr. Dontae Vallejo Hemoglobin (Bld) [Mass/Vol] 12.1 g/dL Normal 12.0-16.0 [facility] Comment on above: Performed By: #### C BC #### [facility] [address] [place] [address] Dr. Dontae Vallejo IG # 0.03 10e3/ul Normal 0.00-0.03 [facility] Comment on above: Performed By: #### C BC #### [facility] [address] [place] [address] Dr. Dontae Vallejo IG % 0.3 % Normal 0.0-0.5 [facility] Comment on above: Performed By: #### C BC #### [facility] [address] [place] [address] Dr. Dontae Vallejo LYMPH # 4.5 103/ul Critically high 1.2-3.8 [facility] Comment on above: Performed By: #### C BC #### [facility] [address] [place] [address] Dr. Dontae Vallejo Lymphocytes/100 WBC (Bld) 44.8 % Normal 20.5-60.0 [facility] Comment on above: Performed By: #### C BC #### [facility] [address] [place] [address] Dr. Dontae Vallejo MANUAL DIFF REQ NO Normal [facility] Comment on above: Performed By: #### C BC #### [facility] [address] [place] [address] Dr. Dontae Vallejo MCH (RBC) [Entitic mass] 30.3 pg Normal 26.7-34.0 [facility] Comment on above: Performed By: #### C BC #### [facility] [address] [place] [address] Dr. Dontae Vallejo MCHC (RBC) [Mass/Vol] 32.6 g/dL Normal 29.9-35.2 [facility] Comment on above: Performed By: #### C BC #### [facility] [address] [place] [address] Dr. Dontae Vallejo MCV (RBC) [Entitic vol] 92.8 fL Normal 81.0-99.0 [facility] Comment on above: Performed By: #### C BC #### [facility] [address] [place] [address] Dr. Dontae Vallejo MONO # 0.5 103/ul Normal 0.3-0.8 [facility] Comment on above: Performed By: #### C BC #### [facility] [address] [address] [address] Dontae Vallejo Monocytes/100 WBC (Bld) 5.3 % Normal 1.7-12.0 [facility] Comment on above: Performed By: #### C BC #### [facility] [address] [place] [address] Dr. Dontae Vallejo NEUT # 4.5 103/ul Normal 1.4-6.5 [facility] Comment on above: Performed By: #### C BC #### [facility] [address] [place] [address] Dr. Dontae Vallejo Neutrophils/100 WBC (Bld) 44.9 % Normal 43.0-75.0 [facility] Comment on above: Performed By: #### C BC #### [facility] [address] [place] [address] Dr. Dontae Vallejo Platelet mean volume (Bld) [Entitic vol] 9.8 fL Normal 9.5-13.5 [facility] Comment on above: Performed By: #### C BC #### [facility] [address] [place] [address] Dr. Dontae Vallejo PLT 251 103/ul Normal 150-450 [facility] Comment on above: Performed By: #### C BC #### [facility] [address] [place], [place] [id number] Dr. Dontae Vallejo RBC 4.00 106/ul Critically low 4.20-5.40 [facility] Comment on above: Performed By: #### C BC #### [facility] [address] [place] [address] Dr. Dontae Vallejo WBC 10.1 103/ul Normal 4.0-11.0 [facility] Comment on above: Performed By: #### C BC #### [facility] [address] [place] [address] Dr. Dontae Vallejo Covid-19 PCR ([facility])on 02-15 SARS-CoV-2 (COVID-19) RNA DEIDRE+probe Ql (Unsp spec) Not detected Normal NOT DETECTED [facility] Comment on above: Result Comment: This [...] SARS-CoV-2. Performed By: #### C VDTBH #### [facility] [address] [place] [address] Dr. Dontae Vallejo PROF CHEM 8 (BAS METB)on Anion gap [Moles/Vol] 10.5 mmol/L Normal [facility] Comment on above: Performed By: #### B MP #### [facility] [address] [place] [address] [address] Dontae Vallejo Calcium [Mass/Vol] 9.5 mg/dL Normal 8.4-10.2 [facility] Comment on above: Performed By: #### B MP #### [facility] [address] [place] [address] [address] [address] Dontae Vallejo Chloride [Moles/Vol] 104 mmol/L Normal 98-107 [facility] Comment on above: Performed By: #### B MP #### [facility] [address] [address] [address] Dontae Vallejo CO2 [Moles/Vol] 26.8 mmol/L Normal 22.0-30.0 [facility] Comment on above: Performed By: #### B MP #### [facility] [address] [address] [address] Dontae Vallejo Creatinine [Mass/Vol] 1.51 mg/dL Critically high 0.52-1.04 [facility] Comment on above: Performed By: #### B MP #### [facility] [address] [address] [address] Dontae Vallejo EGFR-AF AUSTRIAN 40 mL/min/1.73m2 Critically low >=60 [facility] Comment on above: Performed By: #### B MP #### [facility] [address] [address] [address] Dontae Vallejo EGFR-NON AF AUSTRIAN 33 mL/min/1.73m2 Critically low >=60 [facility] Comment on above: Performed By: #### B MP #### [facility] [address] [address] [address] Dontae Vallejo Glucose [Mass/Vol] 145 mg/dL Critically high 74-106 [facility] [place] Comment on above: Performed By: #### B MP #### [facility] [address] [address] [address] Dontae Vallejo Potassium [Moles/Vol] 4.3 mmol/L Normal 3.4-5.0 [facility] Comment on above: Performed By: #### B MP #### [facility] [address] [address] [address] Dontae Vallejo Sodium [Moles/Vol] 137 mmol/L Normal 137-145 [facility] Comment on above: Performed By: #### B MP #### [facility] [address] [address] [address] Dontae Vallejo Urea nitrogen [Mass/Vol] 29.0 mg/dL Critically high 7.0-17.0 [facility] Comment on above: Performed By: #### B MP #### [facility] [address] [place], [place] [address] Dr. Dontae Vallejo Urea nitrogen/Creatinine [Mass ratio] 19.2 mg/mg Normal [facility] Comment on above: Performed By: #### B MP #### [facility] [address] [place], [place] [address] Dr. Dontae Vallejo US FINE NDL ASP W US GDNCEon 02-07-2021 US FINE NDL ASP W US GDNCE Begin Addendum #1 COLLECTED DATE/TIME: 01/24/2021 14:27 EDT Final Diagnosis Report for [facility] [place] (A/B) LEFT AXILLA MASS; FINE NEEDLE [...] 2. Pathology results are pending. Normal [facility] LEUKEMIA/LYMPHOMA PROFILEon 01-31-2021 ANALYSIS AND GATING STRATEGY Comment Normal [facility] Comment on above: Result Comment: 8 co geri analysis with 7-AAD, CD45/SSC gating Performed at: -Y Performed By: #### F LOWL #### [facility] [address] [address] [address] Dontae Vallejo ASSESSMENT OF LEUKOCYTES Comment Normal [facility] Comment on above: Result Comment: Ghulam a and lambda staining cannot be interpreted due to nonspecific light chain binding. A subset of T cells show CD10 expression. CD4:CD8 ratio 2.3 Analysis of the viable lymphoid cells shows: B cells 18%, T cells 82% Performed at: -Y Performed By: #### F LOWL #### [facility] [id number] Dontae Vallejo COMMENT Comment Normal [facility] Comment on above: Result Comment: Each antibody in this assay was utilized to assess for potential abnormalities of studied cell populations or to characterize identified abnormalities. . This test was developed and its performance characteristics determined by [employer]. It has not been cleared or approved by the U.S. Food and Drug Administration. . The FDA has determined that such clearance or approval is not necessary. This test is used for clinical purposes. It should not be regarded as investigational or for research. Performed at: TG Performed By: #### F LOWL #### [facility] [address] [address] [address] Dontae Vallejo FLOW COMMENT Comment Normal [facility] Comment on above: Result Comment: Ghulam [...] -Y Performed By: #### F LOWL #### [facility] [id number] Dontae Vallejo FLOW INTERPRETATION Comment Normal [facility] Comment on above: Result Comment: B ce ll clonality cannot be evaluated, T cells with CD10 expression in a small subset, low viability specimen, see comment. Performed at: -Y Performed By: #### F LOWL #### [facility] [address] [address] [address] Dontae Vallejo PHENOTYPE CHART Comment Normal [facility] Comment on above: Result Comment: CD2 Normal CD3 Normal CD4 Normal CD5 Normal CD7 Normal CD8 Normal CD10 See Text CD11b Normal CD19 Normal CD20 Normal CD23 Normal CD38 Normal CD45 Normal CD56 Normal CD57 Normal [facility]-7 Normal HLA-DR Normal KAPPA See Text LAMBDA See Text Performed at: -Y Performed By: #### F LOWL #### [facility] [address] [address] [address] Dontae Vallejo RESULTING PATH NAME Comment Normal [facility] Comment on above: Result Comment: Raul Oliveros M.D. Performed at: -Y Performed By: #### F LOWL #### [facility] [address] [place] [address] Dr. Dontae Vallejo Specimen type Nom (Spec) Comment Normal [facility] Comment on above: Result Comment: Left axillary mass lymph node Performed at: -Y Performed By: #### F LOWL #### [facility] [address] [place] [address] Dr. Dontae Vallejo VIABILITY Comment Normal [facility] Comment on above: Result Comment: 22% [...] -Y Performed By: #### F LOWL #### [facility] [address] [place] [address] Dr. Dontae Vallejo US EXT NON VASC [...] node versus malignancy. Electronically authenticated by: TENZIN FERGSUON Date: 2021-01-07 16:37 Normal [facility] CBC AUTO DIFFon 11-02-2020 BASO # 0.1 103/ul Normal 0.0-0.1 [facility] Comment on above: Performed By: #### C BC #### [facility] [address], [place] [address] Jose Bambi Basophils/100 WBC (Bld) 0.6 % Normal 0.2-2.0 [facility] Comment on above: Performed By: #### C BC #### [facility] [address], [place] [address] Jose Bambi EO # 0.4 103/ul Normal 0.0-0.7 [facility] Comment on above: Performed By: #### C BC #### [facility] [address] [place], [place] [id number] Jose Bambi Eosinophils/100 WBC (Bld) 3.7 % Normal 0.9-7.0 [facility] Comment on above: Performed By: #### C BC #### [facility] [address] [place], [place] [id number] Jose Bambi Erythrocyte distribution width (RBC) [Ratio] 13.2 % Normal 11.0-15.0 [facility] Comment on above: Performed By: #### C BC #### [facility] [address] [place], [place] [id number] Jose Bambi Hematocrit (Bld) [Volume fraction] 36.1 % Normal 36.0-48.0 [facility] Comment on above: Performed By: #### C BC #### [facility] [address], [place] [address] Jose Bambi Hemoglobin (Bld) [Mass/Vol] 11.7 g/dL Critically low 12.0-16.0 [facility] Comment on above: Performed By: #### C BC #### [facility] [address] [id number] Jose Bambi IG # 0.03 10e3/ul Normal 0.00-0.03 [facility] Comment on above: Performed By: #### C BC #### [facility] [address] [id number] Jose Bambi IG % 0.3 % Normal 0.0-0.5 [facility] Comment on above: Performed By: #### C BC #### [facility] [address] [place], [place] [id number] Jose Bambi LYMPH # 4.4 103/ul Critically high 1.2-3.8 [facility] Comment on above: Performed By: #### C BC #### [facility] [address] [place], [place] [id number] Jose Bambi Lymphocytes/100 WBC (Bld) 44.9 % Normal 20.5-60.0 [facility] Comment on above: Performed By: #### C BC #### [facility] [address] [place], [place] [id number] Jose Bambi MANUAL DIFF REQ NO Normal [facility] Comment on above: Performed By: #### C BC #### [facility] [address] [place], [place] [id number] Jose Bambi MCH (RBC) [Entitic mass] 30.5 pg Normal 26.7-34.0 [facility] Comment on above: Performed By: #### C BC #### [facility] [address] [place], [place] [id number] Jose Bambi MCHC (RBC) [Mass/Vol] 32.4 g/dL Normal 29.9-35.2 [facility] Comment on above: Performed By: #### C BC #### [facility] [address] [place], [place] [id number] Jose Bambi MCV (RBC) [Entitic vol] 94.0 fL Normal 81.0-99.0 [facility] Comment on above: Performed By: #### C BC #### [facility] [address] [place] [address] Jose Bambi MONO # 0.6 103/ul Normal 0.3-0.8 [facility] Comment on above: Performed By: #### C BC #### [facility] [address], [place] [address] Jose Lacy Monocytes/100 WBC (Bld) 5.7 % Normal 1.7-12.0 [facility] Comment on above: Performed By: #### C BC #### [facility] [address], [place] [address] Jose Lacy NEUT # 4.4 103/ul Normal 1.4-6.5 [facility] Comment on above: Performed By: #### C BC #### [facility] [address], [place] [address] Jose Lacy Neutrophils/100 WBC (Bld) 44.8 % Normal 43.0-75.0 [facility] Comment on above: Performed By: #### C BC #### [facility] [address] [place], [place] [id number] Jose Lacy Platelet mean volume (Bld) [Entitic vol] 11.3 fL Normal 9.5-13.5 [facility] Comment on above: Performed By: #### C BC #### [facility] [address] [place] [address] Jose Bambi PLT 239 103/ul Normal 150-450 [facility] Comment on above: Performed By: #### C BC #### [facility] [address] [place], [place] [id number] Jose Bambi RBC 3.84 106/ul Critically low 4.20-5.40 [facility] Comment on above: Performed By: #### C BC #### [facility] [address] [place], [place] [id number] Jose Bambi WBC 9.8 103/ul Normal 4.0-11.0 [facility] Comment on above: Performed By: #### C BC #### [facility] [address] [place] [address] Jose Lacy Vital Signs Date Time Vital Sign Value Performing Clinician Facility 04-23-2024 11:38-0500 Heart rate 74 /min Jack Rogel MD Work Phone: [facility] 04-23-2024 11:38-0500 SaO2% (BldA) [Mass fraction] 97 % Jack Rogel MD Work Phone: [facility] 04-04-2024 14:57-0500 Body height 160.02 cm Jack Rogel MD Work Phone: [facility] 04-04-2024 11:32-0500 Body temperature 97.8 [degF] Jack Rogel MD Work Phone: [facility] 04-04-2024 11:32-0500 Diastolic blood pressure 60 mm[Hg] Jack Rogel MD Work Phone: [facility] 04-04-2024 11:32-0500 Heart rate 62 /min Jack Rogel MD Work Phone: [facility] 04-04-2024 11:32-0500 Respiratory rate 18 /min Jack Rogel MD Work Phone: [facility] 04-04-2024 11:32-0500 SaO2% (BldA) [Mass fraction] 95 % Jack Rogel MD Work Phone: [facility] 04-04-2024 11:32-0500 Systolic blood pressure 126 mm[Hg] Jack Rogel MD Work Phone: [facility] 04-04-2024 05:03-0500 Body weight 64.5 kg Jack Rogel MD Work Phone: [facility] 03-11-2024 14:40-0500 Body height 160 cm Jack Rogel MD Work Phone: [facility] 03-11-2024 14:40-0500 Body mass index (BMI) [Ratio] 24.8 kg/m2 Jack Rogel MD Work Phone: [facility] 03-11-2024 14:40-0500 Body weight 63.5 kg Jack Rogel MD Work Phone: [facility] 03-11-2024 14:40-0500 Diastolic blood pressure 78 mm[Hg] Jack Rogel MD Work Phone: [facility] 03-11-2024 14:40-0500 Heart rate 62 /min Jack Rogel MD Work Phone: [facility] 03-11-2024 14:40-0500 SaO2% (BldA) [Mass fraction] 98 % Jack Rogel MD Work Phone: [facility] 03-11-2024 14:40-0500 Systolic blood pressure 130 mm[Hg] Jack Rogel MD Work Phone: [facility] 08-09-2023 08:30-0400 Body height [address] 08-09-2023 08:30-0400 Body mass index (BMI) [Ratio] 25.86 kg/m2 [address] 08-09-2023 08:30-0400 Body weight 66.[address] 08-09-2023 08:30-0400 Diastolic blood pressure 88 mm[Hg] [address] 08-09-2023 08:30-0400 Systolic blood pressure 134 mm[Hg] [address] 07-02-2023 13:19-0400 Diastolic blood pressure 90 mm[Hg] Eloise Galicia MD Work Phone: [facility] 07-02-2023 13:19-0400 Systolic blood pressure 138 mm[Hg] Eloise Galicia MD Work Phone: [facility] 07-02-2023 13:18-0400 Body height 160 cm Eloise Galicia MD Work Phone: [facility] 07-02-2023 13:18-0400 Body mass index (BMI) [Ratio] 25.86 kg/m2 Eloise Galicia MD Work Phone: [facility] 07-02-2023 13:18-0400 Body weight 66.22 kg Eloise Galicia MD Work Phone: [facility] 07-02-2023 13:18-0400 Heart rate 80 /min Eloise Galicia MD Work Phone: [facility] 05-14-2023 13:52-0500 Body height 160 cm Jack Rogel MD Work Phone: [facility] 05-14-2023 13:52-0500 Body mass index (BMI) [Ratio] 26.57 kg/m2 Jack Rogel MD Work Phone: [facility] 05-14-2023 13:52-0500 Body weight 68.04 kg Jack Rogel MD Work Phone: [facility] 05-14-2023 13:52-0500 Diastolic blood pressure 70 mm[Hg] Jack Rogel MD Work Phone: [facility] 05-14-2023 13:52-0500 Heart rate 68 /min Jack Rogel MD Work Phone: [facility] 05-14-2023 13:52-0500 SaO2% (BldA) [Mass fraction] 98 % Jack Rogel MD Work Phone: [facility] 05-14-2023 13:52-0500 Systolic blood pressure 122 mm[Hg] Jack Rogel MD Work Phone: [facility] 03-12-2022 12:15-0500 Body height 160.02 cm Gabi Gaona Other [employer] Other 03-12-2022 12:15-0500 Body mass index (BMI) [Ratio] 26.57 kg/m2 Gabi Gaona Other [employer] Other 03-12-2022 12:15-0500 Body temperature 97.8 [degF] Gabi Gaona Other [employer] Other 03-12-2022 12:15-0500 Body weight 68.04 kg Gabi Gaona Other [employer] Other 03-12-2022 12:15-0500 Diastolic blood pressure 68 mm[Hg] Gabi Gaona Other [employer] Other 03-12-2022 12:15-0500 Respiratory rate 18 /min Gabi Gaona Other [employer] Other 03-12-2022 12:15-0500 SaO2% (BldA) [Mass fraction] 98 % Gabi Gaona Other [employer] Other 03-12-2022 12:15-0500 Systolic blood pressure 123 mm[Hg] Gabi Gaona Other [employer] Other 01-31-2022 15:09-0400 Body height 158.9 cm Simin Lama MD Work Phone: [facility] 01-31-2022 15:09-0400 Body temperature 97.3 [degF] Simin Lama MD Work Phone: [facility] 01-31-2022 15:09-0400 Body weight 70.03 kg Simin Lama MD Work Phone: [facility] 01-31-2022 15:09-0400 Diastolic blood pressure 65 mm[Hg] Simin Lama MD Work Phone: [facility] 01-31-2022 15:09-0400 Heart rate 62 /min Simin Lama MD Work Phone: [facility] 01-31-2022 15:09-0400 Respiratory rate 16 /min Simin Lama MD Work Phone: [facility] 01-31-2022 15:09-0400 SaO2% (BldA) [Mass fraction] 100 % Simin Lama MD Work Phone: [facility] 01-31-2022 15:09-0400 Systolic blood pressure 142 mm[Hg] Simin Lama MD Work Phone: [facility] 07-28-2021 14:24-0400 Body height 158.9 cm Drake Anand MD Work Phone: [facility] 07-28-2021 14:24-0400 Body temperature 97.9 [degF] Drake Anand MD Work Phone: [facility] 07-28-2021 14:24-0400 Body weight 69.94 kg Drake Anand MD Work Phone: [facility] 07-28-2021 14:24-0400 Diastolic blood pressure 74 mm[Hg] Drake Anand MD Work Phone: [facility] 07-28-2021 14:24-0400 Heart rate 56 /min Drake Anand MD Work Phone: [facility] 07-28-2021 14:24-0400 Respiratory rate 18 /min Drake Anand MD Work Phone: [facility] 07-28-2021 14:24-0400 SaO2% (BldA) [Mass fraction] 98 % Drake Anand MD Work Phone: [facility] 07-28-2021 14:24-0400 Systolic blood pressure 150 mm[Hg] Drake Anand MD Work Phone: [facility] Encounters Encounter Date Encounter Type Care Provider Facility Start: 05-27-2024 End: 05-27-2024 Bamboo flowsheet Jack Rogel MD Work Phone: [facility] Start: 05-27-2024 End: 05-27-2024 Bamboo flowsheet Jack Rogel MD Work Phone: [facility] Start: 05-22-2024 End: 05-22-2024 Telephone encounter Jack Rogel MD Work Phone: [facility] Start: 05-19-2024 End: 05-19-2024 Patient encounter procedure Jack Rogel MD Work Phone: [facility] Work Phone: Start: 05-19-2024 End: 05-19-2024 ambulatory Jack Rogel MD Work Phone: [facility] Work Phone: Start: 05-19-2024 End: 05-19-2024 ambulatory [facility] Amb[facility] Start: 04-14-2024 End: 04-14-2024 Transitional care manage srvc 7 day discharge Jack Rogel MD Work Phone: [facility] Comment on above: NSTEMI (non-ST eleva maryjane myocardial infarction) (CMS/HCC) (Primary Dx); Paroxysmal atrial fibrillation (CMS/HCC); Other cardiomyopathy (CMS/HCC); Encounter for examination following treatment at hospital; Polypharmacy Start: 04-14-2024 End: 04-14-2024 ambulatory JACK ROGEL Not Available Start: 04-14-2024 End: 04-14-2024 Bamboo flowsheet Jack Rogel MD Work Phone: [facility] Start: 04-14-2024 End: 04-14-2024 Bamboo flowsheet Jack Rogel MD Work Phone: [facility] Start: 04-04-2024 End: 04-04-2024 Orders Only Jack Rogel MD Work Phone: [facility] Comment on above: Other cardiomyopathy (CMS/HCC) (Primary Dx) Start: 04-02-2024 Non-patient / Non-visit Jack Rogel MD Work Phone: [facility] Work Phone: Start: 04-02-2024 End: 04-04-2024 Evaluation and management of inpatient Jack Rogel MD Work Phone: [facility] Work Phone: Start: 03-11-2024 End: 03-11-2024 Bamboo flowsheet Jack Rogel MD Work Phone: [facility] Start: 03-11-2024 End: 03-11-2024 Bamboo flowsheet Jack Rogel MD Work Phone: [facility] Start: 03-11-2024 End: 03-11-2024 Office outpatient visit 25 minutes Jack Rogel MD Work Phone: [facility] Comment on above: Toe cyanosis (Primar y Dx); Primary hypertension (CMS/HCC); Chronic kidney disease, stage 3b (HCC) (CMS/HCC); Type 2 diabetes mellitus with stage 3b chronic kidney disease, without long-term current use of insulin (HCC) (CMS/HCC); Mixed dyslipidemia (CMS/HCC); Paroxysmal atrial fibrillation (CMS/HCC); Decreased pedal pulses Start: 03-11-2024 End: 03-11-2024 ambulatory JACK ROGEL Not Available Start: 09-24-2023 End: 09-24-2023 ambulatory JACK ROGEL Not Available Start: 09-05-2023 End: 09-05-2023 ambulatory JCAK ROGEL Not Available Start: 08-09-2023 End: 08-09-2023 ambulatory JACK ROGEL Not Available Start: 08-09-2023 End: 08-09-2023 Subsequent hospital visit by physician Charley Cash Echo/Vasc Room 2 [facility] Comment on above: History of MT (myoca rdial infarction); Acute arterial ischemic stroke, multifocal, posterior circulation, right (Multi) Start: 08-09-2023 End: 08-09-[address] [facility] Start: 07-31-2023 End: 07-31-2023 ambulatory JACK ROGEL Not Available Start: 07-02-2023 End: 07-02-2023 Office consultation new/estab patient 80 min Eloise Galicia MD Work Phone: [facility] Comment on above: Paroxysmal atrial fi brillation (CMS/HCC); History of MT (myocardial infarction); Acute arterial ischemic stroke, multifocal, posterior circulation, right (CMS/HCC); BMI 25.0-25.9,adult; Never smoked tobacco; STORMY inhibitor intolerance; Primary hypertension Start: 07-02-2023 End: 07-02-2023 ambulatory [facility] Ambulatory Start: 06-05-2023 End: 06-05-2023 ambulatory JACK ROGEL Not Available Start: 05-14-2023 End: 05-14-2023 Patient encounter procedure Jack Rogel MD Work Phone: [facility] Comment on above: Encounter for Medica re [...] cerebral infarction (CMS/HCC); Coronary artery disease involving [place] coronary artery of [place] heart without angina pectoris (CMS/HCC); Pulmonary hypertension, mild (CMS/HCC); Chronic kidney disease, stage 3b (HCC) (CMS/HCC); Type 2 diabetes mellitus with stage 3b chronic kidney disease, without long-term current use of insulin (HCC) (CMS/HCC); 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, left (CMS/HCC); Mixed dyslipidemia (CMS/HCC) Start: 05-14-2023 End: 05-14-2023 ambulatory JACK ROGEL Not Available Start: 05-15-2022 Telephone encounter Simin stanford MD Work Phone: [facility] Comment on above: Orders Start: 05-15-2022 End: 05-15-2022 ambulatory DO Jorge Luis Whitehead Work Phone: [facility] Work Phone: Start: 05-15-2022 End: 01-30-2023 Patient encounter procedure DO Jorge Luis Whitehead Work Phone: [facility] Work Phone: Start: 03-12-2022 End: 03-12-2022 ambulatory Gabi Gaona Other [employer] Other Start: 03-12-2022 Office outpatient ne w 20 minutes Gabi Gaona [facility] Start: 02-13-2022 Telephone encounter Shiva Bess Hematology/Oncology Comment on above: Appointment Start: 01-31-2022 End: 01-31-2022 ambulatory SIMIN LAMA Facility:[facility] Start: 01-31-2022 End: 01-31-2022 ambulatory Simin Lama MD Work Phone: Hematology/Oncology Comment on above: 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, left (HCC) (Primary Dx) Start: 01-31-2022 End: 01-31-2022 Patient encounter procedure Simin Lama MD Work Phone: [facility] Start: 01-31-2022 Telephone encounter Simin stanford MD Work Phone: [facility] Comment on above: Appointment Start: 07-28-2021 End: 07-28-2021 ambulatory DRAKE ANAND Facility:[facility] Start: 07-28-2021 End: 07-28-2021 ambulatory [...] 05-04-[address] TENZIN FERGUSON Facility: Start: 2021 End: 01-10-2022 Subsequent hospital visit by physician Arrival Time Radiology Work Phone: Radiology [facility] Comment on above: Malignant neoplasm o f breast in female, estrogen receptor negative, unspecified laterality, unspecified site of breast (HCC) [C50.919, Z17.1] Start: 04-12-2021 Telephone encounter Amarilys Servin Brigido hutton PA-C Work Phone: Hematology/Oncology Comment on above: [facility] Start: 03-19-2021 Encounter for preprocedural cardiovascular examination DR TIM NIÑO [facility] Start: 03-19-2021 Encounter for preprocedural laboratory examination DR TIM NIÑO [facility] Start: 03-18-2021 End: 03-18-[address] [...] MD Work Phone: Start: 05-15-2022 Bilateral mammography Anai Whitehead Work Phone: Start: 05-12-2021 Adult depression scr eening assessment Ru Blackman RN Start: [address] atten uation skull base mid-thigh Drake Anand MD Work Phone: Start: 2021 Gluc bld gluc mntr d ev cleared fda spec home use [facility] Provider Start: 01-22-2019 Echocardiography Plan of Treatment Date Care Activity Detail Author Start: 03-19-2025 Glaucoma screening Diabetes: R etinopathy Screening [facility] Start: 03-04-2025 Urine screening for protein Diabetes: Urine Protein Screening [facility] Start: 07-28-2024 DIABETES SCREEN DIABETES SCREEN [facility] Start: 07-28-2024 Diabetes Screening Diabetes Screenin g [facility] Start: 06-04-2024 Hemoglobin A1c measurement Diabetes: Hemoglobin A1C [facility] Start: 05-27-2024 End: 05-27-2024 Patient encounter procedure 05/27/2024 1:45 PM EST Office Visit [facility] [address] [place] [address] Jack Rogel MD [address] [place] [address] (Fax) Toe cyanosis; Decreased pedal pulses; Type 2 diabetes mellitus with stage 3b chronic kidney disease, without long-term current use of insulin (HCC) (CMS/HCC); Polypharmacy [facility] Comment on above: Toe cyanosis; Decreased pedal pulses; Type 2 diabetes mellitus with stage 3b chronic kidney disease, without long-term current use of insulin (HCC) (CMS/HCC); Polypharmacy Start: 05-14-2024 Medicare Annual Wellness (AWV) Medicare Annual Wellness (AWV) [facility] Start: 05-01-2024 End: 05-01-2024 Patient encounter procedure 05/01/2024 1:20 PM EST Office Visit [facility] [address] [place] [address] Toi Jensen DPM [address] [facility] [address] [place] [address] [facility] Start: 04-14-2024 End: 04-14-2024 Patient encounter procedure 04/14/2024 2:30 PM EST Office Visit [facility] [address] [place] [address] Jack Rogel MD [address] [place] [address] (Fax) Encounter for examination following treatment at hospital [facility] Comment on above: Encounter for examin ation following treatment at hospital Start: 04-11-2024 DIABETES SCREEN DIABETES SCREEN [facility] Start: 04-04-2024 [facility] Start: 04-02-2024 Hospital admission [facility] Start: 04-02-2024 Fluoroscopy of Left Heart using Low Osmolar Contrast Fluoroscopy of Left Heart using Low Osmolar Contrast [facility] Start: 04-02-2024 Fluoroscopy of Multi ple Coronary Arteries using Low Osmolar Contrast Fluoroscopy of Multiple Coronary Arteries using Low Osmolar Contrast [facility] Start: 04-02-2024 Measurement of Cardi ac Sampling and Pressure, Left Heart, Percutaneous Approach Measurement of Cardiac Sampling and Pressure, Left Heart, Percutaneous Approach [facility] Start: 03-11-2024 End: 03-11-2025 US.doppler Extremity arteries - bilateral for physiologic artery study at rest and with exercise VASC US PVR/SEGMENTAL PRESSURES LOWER Imaging Routine Primary hypertension (CMS/HCC) Chronic kidney disease, stage 3b (HCC) (CMS/HCC) Toe cyanosis Decreased pedal pulses Expected: 03/11/2024, Expires: 03/11/2025 [facility] Work Phone: Comment on above: Expected: 03/11/2024 , Expires: 03/11/2025 Start: 12-16-2023 Covid-19 Vaccine ( season) Covid-19 Vaccine ( season) [facility] Start: 12-16-2023 Influenza vaccination Influenza Vacc ine (#1) [facility] Start: 09-24-2023 End: 09-24-2023 Patient encounter procedure 09/24/2023 2:00 PM EDT Office Visit [facility] [address] [facility] [address] Jack Rogel MD [address] [facility] [place] [address] (Fax) [facility] Start: 08-16-2023 End: 08-16-2023 Patient encounter procedure 08/16/2023 1:00 PM EDT Office Visit [place] [id number] [facility] [address] [place] [address] Eloise Galicia MD [address] [facility] [address] [place] [address] [facility] Start: 07-26-2023 End: 07-26-2023 Patient encounter procedure 07/26/2023 1:30 PM EDT Appointment [address] [place] [address] [facility] Start: 07-02-2023 End: 07-01-2025 US Heart Transthoracic Transthoracic Echo Complete Echocardiography Routine History of MT (myocardial infarction) Acute arterial ischemic stroke, multifocal, posterior circulation, right (CMS/HCC) Expected: 07/02/2023 (Approximate), Expires: 07/01/2025 [facility] Service Area Work Phone: Comment on above: Expected: 07/02/2023 (Approximate), Expires: 07/01/2025 Start: 06-15-2023 Hemoglobin A1c measurement Diabetes: Hemoglobin A1C [facility] Start: 05-26-2023 COVID-19 Vaccine ( season) COVID-19 Vaccine () [facility] Start: 04-16-2023 Advance Directive Discussion Advance Directive Discussion [facility] Start: 06-03-2022 End: 08-03-2022 CBC W Auto Differential panel - Blood CBC + DIFF Lab Routine 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, left (HCC) Expected: 06/03/2022 (Approximate), Expires: 08/03/2022 [facility] Work Phone: Comment on above: Expected: 06/03/2022 (Approximate), Expires: 08/03/2022 Start: 06-03-2022 End: 08-03-2022 Comprehensive metabolic 2000 panel - Serum or Plasma COMP METABOLIC PANEL Lab Routine 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, left (HCC) Expected: 06/03/2022 (Approximate), Expires: 08/03/2022 [facility] Work Phone: Comment on above: Expected: 06/03/2022 (Approximate), Expires: 08/03/2022 Start: 05-12-2022 Adult depression screening assessment DEPRESSION SCREENING [facility] Start: 04-16-2022 ADVANCE DIRECTIVE DISCUSSION ADVANCE DIRECTIVE DISCUSSION [facility] Start: 04-16-2022 DEPRESSION ASSESSMENT DEPRESSION ASS ESSMENT [facility] Start: 02-14-2022 End: 03-02-2023 Diagnostic mammography computer-aided detcj uni [facility] Radiology Routine 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, left (HCC) Expected: 02/14/2022, Expires: 03/02/2023 [facility] Work Phone: Comment on above: Expected: 02/14/2022 , Expires: 03/02/2023 Start: 12-15-2021 Influenza vaccination [facility] Start: 06-07-2021 COVID-19 VACCINE (4 - Booster for Pfizer series) COVID-19 VACCINE (4 - Booster for Pfizer series) [facility] Start: 04-16-2021 ADVANCE DIRECTIVE DISCUSSION ADVANCE DIRECTIVE DISCUSSION [facility] Start: 04-16-2021 DEPRESSION ASSESSMENT DEPRESSION ASS ESSMENT [facility] Start: 04-01-2021 COVID-19 VACCINE (4 - Booster for Pfizer series) COVID-19 VACCINE (4 - Booster for Pfizer series) [facility] Start: 2016 RSV Vaccine (1 - 1-d ose 75+ series) RSV Vaccine (1 - 1-dose 75+ series) [facility] Start: 2006 BONE DENSITY BONE DENSITY [facility] Start: 2006 Screening for osteoporosis Bone Density Screening [facility] Start: 2001 RSV patient s and/or patients aged 60+ years (1 - 1-dose 60+ series) RSV patients and/or patients aged 60+ years (1 - 1-dose 60+ series) [facility] Start: 1991 SHINGRIX VACCINE (1 of 2) SHINGRIX VACCINE (1 of 2) [facility] Start: 1991 Zoster Vaccines (1 o f 2) Zoster Vaccines (1 of 2) [facility] Start: 1963 DTaP/Tdap/Td Vaccine s (1 - Tdap) DTaP/Tdap/Td Vaccines (1 - Tdap) [facility] Start: 1960 Urine microalbumin profile [facility] Start: 1959 Anxiety Screening Anxiety Screening [facility] Start: 1959 Depression Screening Depression Scre ening [facility] Start: 1959 Diabetes mellitus screening Diabetes Screening [facility] Start: 1941 Lipid panel Lipid Panel [facility] Start: 1941 Medicare Annual Wellness Visit Medicare Annual Wellness Visit (AWV) [facility] Start: 1941 Screening for osteoporosis Bone Density Scan [facility] Start: 1941 Thyroid stimulating hormone measurement TSH Level [facility] End: 07-28-2022 CBC W Auto Differential panel - Blood CBC + DIFF Lab Routine 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, left (HCC) Every 3 months for 10 Occurrences starting 07/28/2021 until 07/28/2022, 1 completed [facility] Work Phone: Comment on above: Every 3 months for 1 0 Occurrences starting 07/28/2021 until 07/28/2022, 1 completed End: 07-28-2022 Comprehensive metabolic 2000 panel - Serum or Plasma COMP METABOLIC PANEL Lab Routine 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, left (HCC) Every 3 months for 10 Occurrences starting 07/28/2021 until 07/28/2022 [facility] Work Phone: Comment on above: Every 3 months for 1 0 Occurrences starting 07/28/2021 until 07/28/2022 End: 06-14-2023 Diagnostic mammography computer-aided detcj bi [facility] Radiology Routine 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, left (HCC) 1 Occurrences starting 05/15/2022 until 06/14/2023 [facility] Work Phone: Comment on above: 1 Occurrences starti ng 05/15/2022 until 06/14/2023 Patient Education Stress cardiom yopathy Know your Meds [facility] Work Phone: Patient referral [facility] Work Phone: End: 08-27-2022 Screening mammography bi 2-view breast inc cad DANIELLE SCREENING Radiology Routine 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, left (HCC) 1 Occurrences starting 07/28/2021 until 08/27/2022 [facility] Work Phone: Comment on above: 1 Occurrences starti ng 07/28/2021 until 08/27/2022 End: 06-14-2023 breast uni real time with image limited [facility] Work Phone: Comment on above: 1 Occurrences starti ng 05/15/2022 until 06/14/2023 [facility] Immunizations Immunization Date Immunization Notes Care Provider [facility] 01-23-2024 influenza, high dose seasonal, preservative-free Jack Rogel MD Work Phone: [facility] 01-23-2023 Influenza, High-dose Seasonal, Quadrivalent, Preservative Free Jack Rogel MD Work Phone: [facility] 02-08-2022 Influenza, High-dose Seasonal, Quadrivalent, Preservative Free Jack oRgel MD Work Phone: [facility] 02-04-2021 COVID-19 vaccine, ag e 12+ yr (PFIZER-BIONTECH - PURPLE [facility]) Ru Blackman RN [facility] 01-19-2021 Influenza, High-dose Seasonal, Quadrivalent, Preservative Free Jack Rogel MD Work Phone: [facility] 06-03-2020 COVID-19 vaccine, ag e 12+ yr ([employer]-BIONTECH - PURPLE TOP) Ru Blackman RN [facility] 05-12-2020 COVID-19 vaccine, ag e 12+ yr (PFIZER-BIONTECH - PUR[facility]) Ru Blackman RN [facility] 01-15-2020 influenza, seasonal, injectable Jack Rogel MD Work Phone: [facility] 12-26-2019 influenza, high dose seasonal, preservative-free Ru Blackman RN [facility] 12-26-2019 influenza virus vacc ine, unspecified formulation [facility] Work Phone: [facility] 01-24-2018 influenza, high dose seasonal, preservative-free Ru Blackman RN [facility] 01-25-2017 influenza, high dose seasonal, preservative-free Ru Blackman RN [facility] 01-20-2015 influenza, injectabl e, quadrivalent, contains preservative Jack Rogel MD Work Phone: [facility] 10-12-2014 pneumococcal conjuga te vaccine, 13 valent Ru Blackman RN [facility] 04-05-2010 pneumococcal polysaccharide vaccine, 23 valent Ru Blackman [place] Payers Date Payer Category Payer Medicare [id number] 2024 Unknown [id number] 2024 Self-pay [id number] 2023 Medicare (Managed Care) .2. [id number] 2023 Unknown [id number] 2018 Unknown ANTHEM BLUE CROS S AND BLUE SHIELD ANTHEM MEDIBLUE O [id number] 2018-Present [phone] [address] [place] [address] [facility] [id number] 2018 Unknown [id number]. 1.13.159.2 .[id number] 1959 Unknown [id number] 1941 Unknown [id number] 2.16.840.1.165097.3.579.2 .355 1941 Unknown [id number] 2.16.840.1.882626.3.579.2 .593 1941 Unknown [id number] 2.16.840.1.700405.3.579.2 .593 1941 Unknown [id number] 2.16.840.1.739496.3.579.2 .593 1941 Unknown [id number] 2.16.840.1.392253.3.579.2 .593 1941 Unknown [id number] 2.16.840.1.092874.3.579.2 .593 1941 Unknown [id number] 2.16.840.1.474872.3.579.2 .593 1941 Unknown [id number] 2.16.840.1.127425.3.579.2 .593 1941 Unknown [id number] 2.16.840.1.670440.3.579.2 .1259 1941 Unknown [id number] 2.16.840.1.028057.3.579.2 .1259 1941 Unknown [id number] 2.16.840.1.018542.3.579.2 .1259 1941 Unknown [id number] 2.16.840.1.950002.3.579.2 .1259 1941 Unknown [id number] 2.16.840.1.944633.3.579.2 .1259 1941 Unknown [id number] 2.16.840.1.700357.3.579.2 .1259 1941 Unknown [id number] 2.16.840.1.714211.3.579.2 .1259 1941 Unknown [id number] 2.16.840.1.362906.3.579.2 .1259 1941 Unknown [id number] 2.16.840.1.504768.3.579.2 .1246 1941 Unknown [id number] 2.16.840.1.554715.3.579.2 .1244 1941 Unknown [id number] 2.16.840.1.500409.3.579.2 .1244 Unknown [id number] 2.16.840.1.590954.3.579.2 .531 Unknown [id number] 2.16.840.1.236662.3.579.2 .531 Social History Date Type Detail Facility Start: 04-05-2021 End: 11-29-2022 Tobacco smoking status NHIS Never smoked tobacco [facility] Start: 04-05-2021 End: 11-29-2022 Tobacco use and exposure Smokeless tobacco non-user [facility] Start: 05-12-2021 End: 04-23-2024 Alcohol intake Ex-drinker (finding) [facility] Start: 1940 Sex Assigned At Not on file [facility] Start: 03-26-2021 End: 08-09-2023 Exposure to SARS-CoV-2 (event) Not sure [facility] Start: 03-16-2023 End: 05-24-2023 Sex Assigned At [facility] Other Start: 1940 Sex Assigned At Female F [facility] History of tobacco use Passive smoker [facility] Start: 03-16-2023 End: 05-24-2023 History of Social function [facility] Start: 04-03-2023 Alcohol Comment caffeine intak e: 3-4 cups daily coffee [facility] Start: 07-02-2023 Alcohol intake Lifetime non-d mayela (finding) [facility] Work Phone: Start: 05-20-2024 Sex Female (finding) [facility] Medical Equipment Procedure Code Equipment Code Equipment Origin al Text Equipment Identifier Dates Check daily and as needed. [id number] Start: 09-25-2023 Goals Date Patient Goal Desired Activity /State Functional Status Date Assessment Result Facility 04-04-2024 Functional status Patient at Baseline [facility] Work Phone: Mental Status Date Assessment Result Facility 04-04-2024 Cognitive function Cognitive Sta tus Patient at [facility] Work Phone: Clinical Notes 03-18-2021 to 05-22-2024 Telephone Encounter - Jack Rogel MD - 05/22/2024 5:33 PM ESTTelephone Encounter - Jack Rogel MD - 05/22/2024 5:33 PM ESTTelephone Encounter - Dina Gunn - 05/22/2024 3:53 PM EST Note Date & Type Note Facility 05-22-2024 Telephone encount er Note I called and discussed with Johanny that she relieves a full anticoagulant not an antiplatelet. I did give her a list of all the anticoagulants that she could write down and contact her insurance company. We also discussed that warfarin would be an option. She is pretty adamant she did not want to do that. She has agreed to call her insurance company tomorrow and let us know. We can certainly go ahead and prescribe a different anticoagulant if she has better coverage. [facility] 05-22-2024 Miscellaneous Notes Formattin g of this note might be different from the original. I called and discussed with Johanny that she relieves a full anticoagulant not an antiplatelet. I did give her a list of all the anticoagulants that she could write down and contact her insurance company. We also discussed that warfarin would be an option. She is pretty adamant she did not want to do that. She has agreed to call her insurance company tomorrow and let us know. We can certainly go ahead and prescribe a different anticoagulant if she has better coverage. Johanny called and stated that her new drug coverage will not cover Eliquist, it is over $300. She is asking if she can go back to Plavix? If so, [facility]? She would also like to know that if she goes back to Plavix, does she need to take a low dose Asprin with that? documented in this encounter [facility] 05-22-2024 Telephone encount er Note Johanny called and stated that her new drug coverage will not cover Eliquist, it is over $300. She is asking if she can go back to Plavix? If so, can [facility] be sent [facility]? She would also like to know that if she goes back to Plavix, does she need to take a low dose Asprin with that? [facility] 04-14-2024 History of Presen t illness Narrative Images from the original note were not included. Patient ID: Johanny Forbes is a 83 y.o. female who presents for: He is here for hospital follow-up visit. Her only complaint is more fatigue than she expects. Flowsheet Row Patient Outreach from 04/08/2024 in [facility] with Tyesha Connelly LPN Hospital Information ED, Hospital or [facility] Facility Discharge? Hospital Patient has been contacted within two business days of discharge No Have two attempts been made to contact the patient within two business days of being discharged? Yes Diagnosis NSTEMI, paroxysmal A-Fib, DM, CVA, AAA, hypothyroid, HTN, takotsubo syndrome Discharge Date 04/04/24 Discharged To: Home Setting Engagement Medications Appointments Self Management Patient Teaching Wrap Up Wrap Up Additional Comments Had left heart cath Review of Systems Constitutional: Negative for chills and fever. Respiratory: Negative for cough, shortness of breath and wheezing. Cardiovascular: Negative for chest pain and palpitations. Gastrointestinal: Negative for abdominal pain. Genitourinary: Negative for frequency and urgency. Objective The patient is pleasant and in no acute distress. The neck is supple and trachea is midline. No masses are appreciated. Somewhat distant heart sounds but, The heart is regular rate and rhythm without S3, S4. No murmur. The patient has normal respiratory pattern. The breath sounds are symmetrical without evidence of rhonchi or rales. No wheezing. The skin is warm and dry. The lower extremities have trace edema. The patient has good eye contact and speech is clear. Appropriate affect. Visit Vitals Pulse 74 SpO2 97% OB Status Postmenopausal Smoking Status Never Allergies Allergen Reactions Amino Acids Other Lisinopril Cough and Other Penicillins Other Dizzy and passed out Statins Other Current Outpatient Medications on File Prior to Visit Medication Sig Dispense Refill apixaban (Eliquis) 5 MG tablet Take 1 tablet (5 mg) by mouth in the morning and 1 tablet (5 mg) before bedtime. 60 tablet 0 ezetimibe (Zetia) 10 MG tablet Take 10 mg by mouth in the morning. glucose blood (Retail[employer]S Ultra) test strip Check daily and as needed. 50 strip 1 levothyroxine (Synthroid) 25 MCG tablet Take 1 tablet (25 mcg) by mouth Daily Take on an empty stomach 90 tablet 1 Multiple Vitamin (MULTIVITAMIN ADULT PO) Multivitamin ondansetron ODT (Zofran-ODT) 4 MG disintegrating tablet Take 4 mg by mouth every 6 (six) hours if needed valsartan (Diovan) 40 MG tablet Take 1 tablet (40 mg) by mouth Daily 90 tablet 1 [DISCONTINUED] carvedilol (Coreg) 3.125 MG tablet Take 1 tablet (3.125 mg) by mouth in the morning and 1 tablet (3.125 mg) in the evening. Take with meals. 180 tablet 1 No current facility-administered medications on file prior to visit. 1. NSTEMI (non-ST elevated myocardial infarction) (CMS/HCC) (Primary) Acute problem that she was hospitalized for. She has not had any further symptoms since her hospitalization. No obvious signs of angina or anginal equivalents. We discussed her fatigue which is more than she thinks she should have. Seems rather frustrated with this. We discussed how her heart does not pump right + there has been an injury to the heart muscle itself. It would not be unusual to have some fatigue after this. She does have follow-up cardiology visit scheduled. 2. Paroxysmal atrial fibrillation (CMS/HCC) Chronic problem that elevation of the beta jareth during her last hospital stay. She is denying any palpitations. - carvedilol (Coreg) 6.25 MG tablet; Take 1 tablet (6.25 mg) by mouth in the morning and 1 tablet (6.25 mg) in the evening. Take with meals. 3. Other cardiomyopathy (CMS/HCC) She has a an EF of the about 30 percent. No overt signs of congestive heart failure. 4. Encounter for examination following treatment at hospital This visit is prompted as a transition of care. The patient has been contacted by phone within 2 business days of discharge or at least 2 unsuccessful attempts were made to contact the patient within the 2 business days. Any available documents including; emergency room note, visit notes, consults, and discharge summary or continuity of care documents were reviewed. Any laboratory investigation or diagnostic imaging that was ordered by outside physicians and available was obtained and reviewed. The transition of care note is reviewed. a [id number] evaluation is done today. Medical decision making is complex in degree. 5. Polypharmacy Chronic problem The patient meets the criteria for polypharmacy; 5 or more prescriptions or multi-morbidity defined as 5 or more diagnoses. Polypharmacy can significantly increase the risk of preventable adverse drug events and negatively impact adherence. Consideration of diverse factors such as clinician agreement, patient perspective, and de-prescribing, as appropriate can improve patient outcomes while simplifying care. This requires longitudinal monitoring as there is at least a moderate risk of morbidity and requires at least a moderate degree of evaluation and management. documented in this encounter [facility] 04-04-2024 History of Presen t illness Narrative I reviewed some emergency room notes and her cardiac catheterization. Updated medical record. documented in this encounter [facility] 04-02-2024 Evaluation note Diagnosis Onset Date Resolution AAA (abdominal aortic aneurysm) acute April 02, 024 5:46pm CVA (cerebral vascular accident) acute April 02 5:46pm Diabetes acute April 02, 2024 5:46pm HTN (hypertension) acute Decemb er 2023 5:46pm Hypothyroid acute March 5:46pm Paroxysmal atrial fibrillation acute April 02, 2 024 5:46pm NSTEMI (non-ST elevated myocardial infarction) resolved April 02, 2024 5:46pm [facility] Work Phone: [phone] 136-467411-26-2024 History of Present illness Narrative* Jack Rogel MD - 03/11/2024 2:00 PM EST Images from the original note were not included. Patient ID: Johanny Forbes is a 83 y.o. female who presents for: Hypertension Patient is here for follow-up of elevated blood pressure. She is not exercising and is adherent to a low-salt diet. Blood pressure is well controlled at home. Cardiac symptoms: none. Patient denies chest pain, dyspnea, and irregular heart beat. Cardiovascular risk factors: advanced age (older than 55 for men, 65 for women), diabetes mellitus, dyslipidemia, hypertension, and sedentary lifestyle. Use of agents associated with hypertension: thyroid hormones. History of target organ damage: angina/prior myocardial infarction, prior coronary revascularization, and Afib . Hyperlipidemia Pt who presents for follow-up of dyslipidemia. A repeat fasting lipid profile was not done. The patient does not use medications that may worsen dyslipidemias (corticosteroids, progestins, anabolic steroids, diuretics, beta-blockers, amiodarone, cyclosporine, olanzapine). Exercise: never. Diabetes Mellitus Patient presents for follow up of diabetes. Current symptoms include: none. Symptoms have stabilized. Patient denies foot ulcerations, hyperglycemia, and hypoglycemia . She does however note that hertoes are purple. This is been going on for months. Evaluation to date has included: hemoglobin A1C and microalbuminuria. Home sugars: patient does not check sugars. Review of Systems Constitutional: Negative for activity change and fatigue. Respiratory: Negative for cough, shortness of breath and wheezing. Cardiovascular: Negative for chest pain, palpitations and leg swelling. Neurological: Negative for light-headedness and headaches. Objective The patient is pleasant and in no acute distress. The neck is supple and trachea is midline. No masses are appreciated. The heart is irregular rate and rhythm without S3, S4. No murmur. The patient has normal respiratory pattern. The breath sounds are symmetrical without evidence of rhonchi or rales. No wheezing. The skin is warm and dry. All of her toes on both feet past the D IP joint are purple. A couple of them come just proximal to the PIP joint. This did not seem to improve with a brief period of elevating her foot. I could not palpate Any pulse on the top of her foot, and just barely in the medial aspect of the ankles I think I feel it. Otherwise the skin is warm. The lower extremities have trace edema. The patient has good eye contact and speech is clear. Appropriate affect. Visit Vitals BP 130/78 Pulse 62 Ht 5' 3 Wt 140 lb SpO2 98% BMI 24.80 kg/m OB Status Postmenopausal Smoking Status Never BSA 1.68 m Allergies Allergen Reactions Amino Acids Other Lisinopril Cough and Other Penicillins Other Dizzy and passed out Statins Other Current Outpatient Medications on File Prior to Visit Medication Sig Dispense Refill apixaban (Eliquis) 5 MG tablet Take 1 tablet (5 mg) by mouth in the morning and 1 tablet (5 mg) before bedtime. 60 tablet 0 ezetimibe (Zetia) 10 MG tablet Take 10 mg by mouth in the morning. glucose blood (RetailMLS Ultra) test strip Check daily and as needed. 50 strip 1 levothyroxine (Synthroid) 25 MCG tablet Take 1 tablet (25 mcg) by mouth Daily Take on an empty stomach 90 tablet 1 Multiple Vitamin (MULTIVITAMIN ADULT PO) Multivitamin ondansetron ODT (Zofran-ODT) 4 MG disintegrating tablet Take 4 mg by mouth every 6 (six) hours if needed No current facility-administered medications on file prior to visit. 1. Primary hypertension ([facility]) Chronic problem, stable, to goal - valsartan (Diovan) 40 MG tablet; Take 1 tablet (40 mg) by mouth Daily Dispense: 90 tablet; Refill: 1 - VASC US PVR/SEGMENTAL PRESSURES LOWER; Future - VASC US PVR/SEGMENTAL PRESSURES LOWER 2. Chronic kidney disease, stage 3b (HCC) ([facility]) Chronic problem appear stable microalbumin creatinine ratio normal. - VASC US PVR/SEGMENTAL PRESSURES LOWER; Future - VASC US PVR/SEGMENTAL PRESSURES LOWER 3. Type 2 diabetes mellitus with stage 3b chronic kidney disease, without long- term current use of insulin (HCC) (CMS/HCC) Chronic problem, stable, to goal. Diet control. 4. Mixed dyslipidemia (CMS/HCC) Chronic problem, stable, patient notes process specialist filled her prescription last time. 5. Paroxysmal atrial fibrillation (CMS/HCC) Chronic problem, currently asymptomatic. - carvedilol (Coreg) 3.125 MG tablet; Take 1 tablet (3.125 mg) by mouth in the morning and 1 tablet(3.125 mg) in the evening. Take with meals. Dispense: 180 tablet; Refill: 1 6. Toe cyanosis (Primary) I discussed with her that with her age and her current diagnoses I was concerned that she could have arterial insufficiency and at a minimum we should screen for that. We have mutually agreed to proceed with a screening. - VASC US PVR/SEGMENTAL PRESSURES LOWER; Future - VASC US PVR/SEGMENTAL PRESSURES LOWER 7. Decreased pedal pulses As above - VASC US PVR/SEGMENTAL PRESSURES LOWER; Future - VASC US PVR/SEGMENTAL PRESSURES LOWER [id number] History of Present illness Narrative* Eloise Galicia MD - 07/02/2023 1:15 PM EDT Referred by [facility] (Giovanyer-afib/cherelle htn) History Of Present Illness: Johanny Forbes [...] 3 and previous TIA who presented to [facility] yesterday with complaint of transient neurologic symptoms including headache, dysarthria and generalized weakness. She actually awoke yesterdaymorning around 4am with these symptoms. They improved after a few hours but she continued to have amild headache, fatigue and generalized weakness prompting the [...] (bypass heart) Brother Allergies: Lisinopril, Penicillins, and Tbqvmxb-mxd-aab reductase inhibitors Outpatient Medications: Current Outpatient Medications [...] mouth 2 times a day. History of MT (myocardial infarction) - magnesium oxide (Mag-Ox) 400 [...] Paroxysmal atrial fibrillation (CMS/HCC) 2. History of MT (myocardial infarction) 3. Acute arterial ischemic stroke, [...] Cardiac catheterization June 2018-for non-ST elevation myocardial infarction- 95% stenosis at the ostium of the medium sized first diagonal branch, otherwise nonflow-limiting disease, LVEF 55%, medical therapy recommended. EKG 06/01/2023 poor baseline, atrial fibrillation, left ventricular hypertrophy Clinical decision makin-year-old with a [id number] score of 7, has paroxysmal atrial fibrillation. Patient was informed that the patient has an irregularly irregular heart rate, and it is called atrial fibrillation. The pathophysiology of atrial fibrillation, some of the precipitating factors, andthe risk of stroke with atrial fibrillation was discussed. Patient was informed that there are different modalities for treating atrial fibrillation, and the plan of treatment would be individualizedto the patient's needs and response. The importance [...] for frequent blood monitoring. The downside of neweranticoagulation agents include higher cost and at times [...] been markedly abnormal, and she has atherosclerotic [place] vessel coronary disease, statin therapy is indicated, will discuss further at next visit, it appears that she has statin intolerance. May be a candidate for Leqvio. Patient will follow-up after testing Thank you Dr. Rogel for allowing me to participate in Johanny's care, please do not hesitate to callif further questions arise, Sincerely, Eloise Galicia MD [facility] Provider Attestation - Scribe documentation Scribe Attestation By signing my name below, I, Elizabeth SHANNON , Scribe attest that this documentation has been prepared under the direction and in the presence of Eloise Galicia MD. All medical record entries made by the Scribe were at my direction and personally dictated by me. Ihave reviewed the chart and agree that the record accurately reflects my personal performance of the history, physical exam, discussion and plan. Spent over 50 minutes gathering and reviewing data, chart preparation, patient interview and examination, and formulation of care. documented in this [facility] Work Phone: 1(524) 171-399603-18-2024 Instructions* Patient Instructions* Curtis Navarro MA - 07/02/2023 1:15 PM [...] time of your visit. 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 A list of othercurrent medical providers was established/updated. Time was spent [...] visits. Major risk factors for chronic disease includingfamily history were discussed and a list was [...] a patient with the best possible quality oflife. Various scenarios were discussed as examples of how patients would choose options. We discussed how patients could make their wishes known through a living will and durable power of civil rights attorney for healthcare. We discussed telling tyler people about their advance directives such as close family members and a copy will be kept in the EHR. I discussed that they should also make me an emergency contact in theircell phone, and/or notify their POA that I [...] to someone more local when driving to [facility] is driving is a little more difficult for her at this point. We have other family members in our practice and this is why she is asked us toassume her primary care. 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 Followed longitudinally. 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 We will continue to follow this. Thang continue to do her home exercise program. Coronary artery disease involving [place] coronary artery of [place] heart without angina pectoris (CMS/HCC) Chronic problem, [...] on May 24, 2023 documented in this encounterChildren[facility] [id number] Miscellaneous Notes* Telephone Encounter - Ru Thomas RN - 05/15/2022 2:18 PM EST Received call from pt stating she [place] [facility] and needs mammogram orders sent. Orders faxed as requested. Ru Thomas RN documented in this [facility]30-[facility]23 Miscellaneous Notes* Telephone Encounter - Honey Tucker - 05/15/2022 2:15 PM EST Faxed order to [facility]ie May 15, 2022 2:15 PM Honey Tucker * Telephone Encounter - Honey Tucker - 05/15/2022 2:14 PM EST Faxed order to [facility] May 15, 2022 2:15 PM Honey Tucker * Telephone Encounter - Simin Lama MD - 05/15/2022 2:11 PM EST Ordered * Telephone Encounter - Honey Tucker - 05/15/2022 1:39 PM EST Patient is currently at [facility] [place] her Mammogram. [facility]issie is calling to request a new order. 1) Diagnostic Bilateral Mammogram 2) US order (that way they have it if needed) ABDIFATAH/Amarilys: If in agreement, can you please place order PERLITA and I will fax back to her? Thanks! Chrissie: Ph. [phone] Fax. [phone] Honey Tucker documented in this encounterNew[facility]11-27-2022 Evaluation note* Encounter Date Diagnosis Assessment Notes Treatment Notes Treatment Clinical Notes Feb, Contact with and (suspected) exposure [...] no improvement in 2 to 3 days. [place] [employer] Other 10-31-2022 Miscellaneous Notes* Telephone Encounter - [...] advise Shiva Reyes RN documented in this encounterNewark Hospital10-18-2022 NoteHNO ID: [id number] Author: Simin Lama MD Service: ? Author Type: Physician Type: Progress Notes Filed: 01/31/2022 3:38 PM Note Text: PATIENT NAME: Johanny Forbes CLINIC NO.: [id number] ATTENDING PHYSICIAN: Simin Lama MD DATE OF [...] metastatic breast carcinoma, 5 cm, ER 0, MT 0, HER-2 0 by IHC. The tissue was not evaluated for flow cytometry to rule out a lymphoproliferative process. 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 Differential included mammary, skin, urothelial, pancreaticobiliary and pulmonary primaries. ER 0, MT 0, HER-2 negative by CAMERON. 2021 PET [...] 04/11/2021 141 Chloride (mmol (more content not included)...[facility] 01-31-2022 Miscellaneous Notes* Telephone Encounter - Honey Tucker - 01/31/2022 4:[address] Lama, patient had a previous abnormal L Mammogram and never followed up. He would like L Mammogram completed now. Faxed order to [place] scheduling per patient's hospital request. Honey Tucker documented in this encounterNewark Hospital10-18-2022 History of Present illness Narrative* Simin Lama MD - 01/31/2022 3:19 PM EDT PATIENT NAME: Johanny Forbes CLINIC NO.: [id number] ATTENDING PHYSICIAN: Simin Lama MD DATE OF [...] metastatic breast carcinoma, 5 cm, ER 0, MT 0, HER-2 0 by IHC. The tissue was not evaluated for flow cytometry to rule out a lymphoproliferative process. 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 Differential included mammary, skin, urothelial, pancreaticobiliary and pulmonary primaries. ER 0, MT 0, HER-2 negative by CAMERON. 2021 PET [...] 07/28/2021 3.28 1.00 - 4.00 k/uL Final [place]% Date Value Ref Range Status 07/28/2021 5.9 % Final Abs [place] Date Value Ref Range Status 07/28/2021 0.46 [...] Maira Saunders, [place] and Ryan, of the [facility] breast pathology department, who concur. Metastatic carcinoma [...] avid osseous lesion. Assessment and Plan: Johanny Dendinger is a 81 year old year old [...] do not hesitate to contact me at [phone]. Simin Lama MD Hematology/Medical Oncology [facility] spent a total of 30 minutes on the date of the service which included preparing to see the patient, tall-ao-qhtp patient care, completing clinical documentation, obtaining and/or reviewing separately obtained history, performing a medically appropriate examination, counseling and educating the pat ient/family/caregiver, and ordering medications, tests, or procedures. Medical Decision Making: Medical Decision Making Level: 1 - N/A CC: Campbell Henson, DO Jorge Luis Whitehead DO documented in this encounterNewark Hospital04-14-2022 NoteHNO ID: [id number] Author: Drake Anand MD Service: ? Author [...] metastatic breast carcinoma, 5 cm, ER 0, MT 0, HER-2 0 by IHC. The tissue was not evaluated for flow cytometry to rule out a lymphoproliferative process. 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 Differential included mammary, skin, urothelial, pancreaticobiliary and pulmonary primaries. ER 0, MT 0, HER-2 negative by CAMERON. ? 2021 [...] date of the (more content not included)... [facility]04-14-2022 History of Present illness Narrative* [...] metastatic breast carcinoma, 5 cm, ER 0, MT 0, HER-2 0 by IHC. The tissue was not evaluated for flow cytometry to rule out a lymphoproliferative process. 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 Differential included mammary, skin, urothelial, pancreaticobiliary and pulmonary primaries. ER 0, MT 0, HER-2 negative by CAMERON. 2021 PET [...] which included preparing to see the patient, msen-eu-hivz patient care, completing clinical documentation, obtaining and/or reviewing separately obtained history, counseling and educating the patient/family/caregiver, ordering medications, herlinda ts, or procedures, independently interpreting results (not separately reported) and communicating results to the patient/family/caregiver. documented in this encounterNewark Hospital04-08-2022 Miscellaneous Notes* Telephone Encounter - Thao Alanis [...] PSS-could you please arrange for that? Thanks, BHUPENDRAK * Telephone Encounter - Ru Blackman RN [...] discuss further. She can be reached at [phone]. Ru Blackman RN documented in this encounterNewark Hospital01-10-2022 History of Present illness Narrative* Dina Pablo, [...] 1232 PATIENT DISCHARGED TO: Ambulatory patient, left [place] department area. A Diagnostic radioactive procedure has taken place, with no further precautions necessary other than routine body substance precautions. More information regarding radiation safety can be found usingthis link: [email or web address] SIGNATURE: RT Keira(Magdalene) PATIENT NAME: Johanny Forbes DATE: 2021 TIME: 2:40 PM PAGER/CONTACT #: documented in this encounterNewark Hospital12-28-2021 Miscellaneous Notes* Telephone Encounter - Amarilys Murry PA-C - 04/12/2021 4:42 PM EST Request received from [facility] for additional diagnosis codes for MRI breast because diagnosis providedis not a covered diagnosis. Will send with additional diagnosis codes. Will try C50.912 and C77.3. (carcinoma of breast metastatic to left axillary node) Amarilys Murry PA-C documented in this encounterNewark Hospital12-03-2021 NoteOPERATIVE NOTE OPERATION DATE: 03-18-21 ANESTHETIC:LMA. AUTOMOTIVE GENERATOR REPAIRER:COLTON Enciso PREOPERATIVE DIAGNOSIS:Left axillary mass. POSTOPERATIVE DIAGNOSIS: [...] by: DR TIM NIÑO . 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, left (HCC)- Primary documented in this encounter [facility] HospitalEvaludel[facility] noteNo assessment information availableWhite Hospital Work Phone: Evaluation note* Diagnosis Encounter [...] cerebral infarction (CMS/HCC) Coronary artery disease involving [place] coronary artery of [place] heart without angina pectoris (CMS/HCC) Pulmonary hypertension, mild (CMS/HCC) Other chronic pulmonary heart diseases Chronic kidney disease, stage 3b (HCC) (CMS/HCC) Type 2 diabetes mellitus with stage 3b chronic kidney disease, without long-term current use of insulin (HCC) (CMS/HCC) 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, left (CMS/HCC) Mixed dyslipidemia (CMS/HCC) documented in this encounter [facility]* Diagnosis Paroxysmal atrial fibrillation (CMS/HCC) Atrial fibrillation History of MT (myocardial infarction) 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, multifocal, posterior circulation, right (CMS/HCC) BMI 25.0-25.9,adult Never smoked tobacco STORMY inhibitor intolerance Primary hypertension Unspecified essential hypertension documented in this encounter [facility] Work Phone: Evaluation note* Diagnosis History of MT (myocardial infarction) 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, multifocal, posterior circulation, right (Multi) documented in this encounter [facility] Work Phone: Evaluation note* Diagnosis Malignant neoplasm of breast in female, estrogen receptor negative, unspecified laterality, unspecified site of breast (HCC) documented in this encounter [facility]* Diagnosis Toe cyanosis- Primary Cyanosis Primary hypertension (CMS/HCC) Unspecified essential hypertension Chronic kidney disease, stage 3b (HCC) (CMS/HCC) Type 2 diabetes mellitus with stage 3b chronic kidney disease, without long-term current use of insulin (HCC) (CMS/HCC) Mixed dyslipidemia (CMS/HCC) Paroxysmal atrial fibrillation (CMS/HCC) Atrial fibrillation Decreased pedal pulses Other symptoms involving cardiovascular system [facility]* Diagnosis Other cardiomyopathy (CMS/HCC)- Primary documented in this encounter [facility]* Diagnosis NSTEMI (non-ST elevated myocardial infarction) (CMS/HCC)- Primary Acute myocardial infarction, subendocardial infarction, episode of care unspecified Paroxysmal atrial fibrillation (CMS/HCC) Atrial fibrillation Other cardiomyopathy (CMS/HCC) Encounter for examination following treatment at hospital Polypharmacy Issue of repeat prescriptions documented in this encounter [facility] HospitalReason for referral (narrative)* Diagnostic Procedure Only (Routine) - Pending Review Specialty Diagnoses / Procedures Referred By Contac t Referred To Contact [facility] Diagnoses 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, left (HCC) Procedures DANIELLE SCREENING SCREENING MAMMOGRAPHY BI 2-VIEW BREAST INC CAD Drake Anand MD [address] [place] [address] [place] [address] [facility] [address] [place] [address] Referral ID Status Reason Start Date Expiration Date Visits Requested Visits Authorized [id number] Pending Review Auto-Generat ed Referral 07/28/2021 08/27/2022 1 1 [facility] for referral (narrative)* Diagnostic Procedure Only (Routine) - Pending Review Specialty Diagnoses / Procedures Referred By Contac t Referred To Contact BR IMAGING Diagnoses 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, left (HCC) Procedures DANIELLE DIAGNOSTIC LT DIAGNOSTIC MAMMOGRAPHY COMPUTER-AIDED DETCJ Simin Montano MD [address] [place] [address] [place] [address] [facility] [address] [place] [address] Referral ID Status Reason Start Date Expiration Date Visits Requested Visits Authorized [id number] Pending Review Auto-Generat ed Referral 02/14/2022 03/02/2023 1 1 [facility] for referral (narrative)* Diagnostic Procedure Only (Routine) - Pending Review Specialty Diagnoses / Procedures Referred By Contac t Referred To Contact BR IMAGING Diagnoses 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, left (HCC) Procedures US BREAST LTD RT US BREAST UNI REAL TIME WITH IMAGE LIMITED Simin Lama MD [address] [place] [address] [facility] [address] [place] [address] Referral ID Status Reason Start Date Expiration Date Visits Requested Visits Authorized [id number] Pending Review Auto-Generat ed Referral 05/15/2022 06/14/2023 1 1 * Diagnostic Procedure Only (Routine) - Pending Review Specialty Diagnoses / Procedures Referred By Contac t Referred To Contact BR IMAGING Diagnoses 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, left (HCC) Procedures US BREAST LTD LT US BREAST UNI REAL TIME WITH IMAGE LIMITED Simin Lama MD [address] [place] [address] [facility] [address] [address] Referral ID Status Reason Start Date Expiration Date Visits Requested Visits Authorized [id number] Pending Review Auto-Generat ed Referral 05/15/2022 06/14/2023 1 1 * Diagnostic Procedure Only (Routine) - Pending Review Specialty Diagnoses / Procedures Referred By Contac t Referred To Contact [facility] IMAGING Diagnoses 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, left (HCC) Procedures DANIELLE DIAGNOSTIC BILAT DIAGNOSTIC MAMMOGRAPHY COMPUTER-AIDED DETCJ BI Simin Lama MD [address] [place] [address] [facility] [address] [address] Referral ID Status Reason Start Date Expiration Date Visits Requested Visits Authorized [id number] Pending Review Auto-Generat ed Referral 05/15/2022 06/14/2023 1 1 [facility] Diagnostic Procedure Only (Routine) - Closed Specialty Diagnoses / Procedures Referred By Contac t Referred To Contact MOLECULAR & FUNCTIONAL IMAGING Diagnoses Malignant neoplasm of breast in female, estrogen receptor negative, unspecified laterality, unspecified site of breast (HCC) Procedures NM PET/CT SKULL-THIGH INITIAL TUMOR IMAGING PET W/CONC CT SKULL-THIGH Drake Anand MD [address] [place] [id number] [facility] [address] [place] [address] Referral ID Status Reason Start Date Expiration Date V isits Requested Visits Authorized [id number] Closed Auto-Generate d Referral 04/16/2021 06/14/2021 1 1 [facility] Summary Purpose Family History Relationship Condition Age at Onset Recorded Date/T gelacio mother Myocardial infarction Unknown Diabetes mellitus Unknown brother Heart disease Unknown father Coronary artery disease Unknown Advance Directives Advance Directive Response Recorded Date/ Time Advance Directives No May 04, 2022 12:47pm Documents on File Type Date Recorded Patient Shoe Dresser Expl anation Power of Hearing Healthcare Practitioner 05/28/2023 10:54 AM 2022 Power Of Hearing Healthcare Practitioner Documents on File Type Date Recorded Patient Shoe Dresser Expl anation Power of Hearing Healthcare Practitioner 05/28/2023 10:54 AM 2022 Power Of Hearing Healthcare Practitioner Chief Complaint and Reason for Visit Chief Complaint C77.3 Chief Complaint Admit Date instemi April 02, 2024 5:46pm I25.2 May 19, 2024 3 :23pm Reason for Visit Admit Date AAA (abdominal aortic aneurysm) April 02, 2024 5:46pm CVA (cerebral vascular accident) Decembe r 2023 5:46pm Diabetes April 02, 2024 5:46pm HTN (hypertension) April 02, 2024 5:46pm Hypothyroid April 02, 2024 5:46pm Paroxysmal atrial fibrillation April 02, 2024 5:46pm NSTEMI (non-ST elevated myocardial infar ction) April 02, 2024 5:46pm Reason for Referral Specialty Diagnoses / Procedures Referred By Contac t Referred To Contact Cardiology Diagnoses History of MT (myocardial infarction) Acute arterial ischemic stroke, multifocal, posterior circulation, right (CMS/HCC) Procedures Transthoracic Echo Complete MT ECHO TTHRC R-T 2D W/WOM-MODE COMPL SPEC&COLR D Eloise Galicia MD [address] [place] [address] Referral ID Status Reason Start Date Expiration Date Visits Requested Visits Authorized [id number] Authorized Perform Procedure 07/02/2023 07/01/2024 1 1 Specialty Diagnoses / Procedures Referred By Contac t Referred To Contact Diagnoses Paroxysmal atrial fibrillation (CMS/HCC) Procedures ECG 12 Lead Eloise Galicia MD [address] [facility] [address] [place] [address] Referral ID Status Reason Start Date Expiration Date V isits Requested Visits Authorized [id number] Authorized 07/02/2023 07/01/2024 1 1 Specialty Diagnoses / Procedures Referred By Contac t Referred To Contact Cardiology Diagnoses Acute arterial ischemic stroke, multifocal, posterior circulation, right (CMS/HCC) Procedures Follow Up In Cardiology Eloise Galicia MD [address] [facility] [address] [place] [address] Eloise Galicia MD [address] [facility] [address] [place] [address] Referral ID Status Reason Start Date Expiration Date V isits Requested Visits Authorized [id number] Authorized 07/02/2023 07/01/2024 1 1 Additional Source Comments INFORMATION SOURCE (unrecogn ized section and content) DATE CREATED AUTHOR 06/27/2018 [facility] DATE CREATED AUTHOR AUTHOR'S ORGANIZ ATION 07/08/2019 [facility] DATE CREATED AUTHOR AUTHOR'S ORGANIZ ATION 05/07/2021 [facility] DATE CREATED AUTHOR AUTHOR'S ORGANIZ ATION 05/16/2022 [facility] DATE CREATED AUTHOR AUTHOR'S ORGANIZ ATION 03/08/2024 [facility] DATE CREATED AUTHOR AUTHOR'S ORGANIZ ATION 04/15/2024 [facility] DATE CREATED AUTHOR AUTHOR'S ORGANIZ ATION 05/22/2024 [facility] DATE CREATED AUTHOR AUTHOR'S ORGANIZ ATION 05/26/2024 [facility] DATE CREATED AUTHOR AUTHOR'S ORGANIZ ATION 05/26/2024 [facility] Ambulatory Source Comments (unrecognize d section and content) In the event this informatio n is protected by the Federal Confidentiality of Alcohol and Drug Abuse Patient Records regulations: The Federal rules restrict any use of the information to criminally investigate or prosecute any alcohol or drug abuse patient.[facility] HospitalIn the event this information is protected by the Federal Confidentiality of Alcohol and Drug Abuse Patient Records regulations: The Federal rules restrict any use of the information to criminally investigate or prosecute any alcohol or drug abuse patient.[facility] HospitalIn the event this information is protected by the Federal Confidentiality of Alcohol and Drug Abuse Patient Records regulations: The Federal rules restrict any use of the information to criminally investigate or prosecute any alcohol or drug abuse patient.[facility] HospitalIn the event this information is protected by the Federal Confidentiality of Alcohol and Drug Abuse Patient Records regulations: The Federal rules restrict any use of the information to criminally investigate or prosecute any alcohol or drug abuse patient.[facility] HospitalIn the event this information is protected by the Federal Confidentiality of Alcohol and Drug Abuse Patient Records regulations: The Federal rules restrict any use of the information to criminally investigate or prosecute any alcohol or drug abuse patient.[facility] HospitalIn the event this information is protected by the Federal Confidentiality of Alcohol and Drug Abuse Patient Records regulations: The Federal rules restrict any use of the information to criminally investigate or prosecute any alcohol or drug abuse patient.[facility] HospitalIn the event this information is protected by the Federal Confidentiality of Alcohol and Drug Abuse Patient Records regulations: The Federal rules restrict any use of the information to criminally investigate or prosecute any alcohol or drug abuse patient.[facility] HospitalIn the event this information is protected by the Federal Confidentiality of Alcohol and Drug Abuse Patient Records regulations: The Federal rules restrict any use of the information to criminally investigate or prosecute any alcohol or drug abuse patient.[facility] HospitalIn the event this information is protected by the Federal Confidentiality of Alcohol and Drug Abuse Patient Records regulations: The Federal rules restrict any use of the information to criminally investigate or prosecute any alcohol or drug abuse patient.[facility] Reason for Visit (unrecogniz ed section and content) Reason Comments Patient Question Reason Comments Breast Cancer Reason Comments Charger - Other Reason Comments Breast Cancer Follow up Reason Comments Appointment Reason Comments Orders Reason Comments Orders Reason Comments Annual Exam Reason Comments Establish Care Heymeyer-afib/plum h tn Specialty Diagnoses / Procedures Referred By Contac t Referred To Contact Diagnoses Paroxysmal atrial fibrillation (CMS/HCC) Procedures ECG 12 Lead Eloise Galicia MD [address] [place] [address] [address] [place] [address] Referral ID Status Reason Start Date Expiration Date V isits Requested Visits Authorized [id number] Authorized 07/02/2023 07/01/2024 1 1 Specialty Diagnoses / Procedures Referred By Contac t Referred To Contact Cardiology Diagnoses History of MT (myocardial infarction) Acute arterial ischemic stroke, multifocal, posterior circulation, right (Multi) Procedures Transthoracic Echo Complete MT ECHO TTHRC R-T 2D W/WOM-MODE COMPL SPEC&COLR D Eloise Galicia MD [address] [place] [address] [address] [place] [address] Referral ID Status Reason Start Date Expiration Date Visits Requested Visits Authorized [id number] Authorized Perform Procedure 07/02/2023 07/01/2024 1 1 Reason Comments Radiology NM Specialty Diagnoses / Procedures Referred By Contac t Referred To Contact MOLECULAR & FUNCTIONAL IMAGING Diagnoses Malignant neoplasm of breast in female, estrogen receptor negative, unspecified laterality, unspecified site of breast (HCC) Procedures NM PET/CT SKULL-THIGH INITIAL TUMOR IMAGING PET W/CONC CT SKULL-THIGH Drake Anand MD [address] [place] [address] [address] [place] [address] Molecular & Functional Imaging [address] [place] [address] Referral ID Status Reason Start Date Expiration Date V isits Requested Visits Authorized [id number] Closed Auto-Generate d Referral 04/16/2021 06/14/2021 1 1 Reason Comments Hypertension Hyperlipidemia Diabetes Care Teams (unrecognized sec tion and content) Security Officer Relationship Specialty Start Date End Date Jorge Luis Whitehead [address] [place] [phone] PCP - General Family Practice 03/28/21 Security Officer Relationship Specialty Start Date End Date Jorge Luis Whitehead [address] [place] [phone] PCP - General Family Practice 03/28/21 Security Officer Relationship Specialty Start Date End Date Jorge Luis Whitehead DO [address] [place] [address] PCP - General Family Practice 03/28/21 Security Officer Relationship Specialty Start Date End Date Jorge Luis Whitehead, DO [address] [place] [address] PCP - General Family Medicine 03/28/21 Security Officer Relationship Specialty Start Date End Date Jorge Luis Whitehead, DO [address] [place] [address] PCP - General Family Medicine 03/28/21 Security Officer Relationship Specialty Start Date End Date Jorge Luis Whitehead, DO [address] [place] [address] PCP - General Family Medicine 03/28/21 Security Officer Relationship Specialty Start Date End Date Jorge Luis Whitehead, DO [address] [place] [address] PCP - General Family Medicine 03/28/21 Security Officer Relationship Specialty Start Date End Date Jorge Luis Whitehead, DO [address] [place] [address] PCP - General Family Medicine 03/28/21 Team Status: Inactive Member Role Status Dates Jorge Luis Whitehead DO Primary Care Provider Active Simin Lama MD Attending Provider Active Team Status: Active Member Role Status Dates Jorge Luis Whitehead DO Primary Care Provider Active Security Officer Relationship Specialty Start Date End Date Amanda Briones MD [address] [place] [address] PCP - General Family Medicine 09/07/22 Amanda Briones MD [address] [place] [address] PCP - Devoted 04/16/23 Linette Blankenship NP [address] [place] [address] Nurse Practitioner Family Medicine 09/07/22 Security Officer Relationship Specialty Start Date End Date Jack Rogel MD [address] [place] [address] (Fax) PCP - General Family Medicine 07/02/23 Security Officer Relationship Specialty Start Date End Date Jack Rogel MD [address] [place] [address] (Fax) PCP - General Family Medicine 07/02/23 Security Officer Relationship Specialty Start Date End Date Jorge Luis Whitehead DO [address] [place] [address] PCP - General Family Medicine 03/28/21 Security Officer Relationship Specialty Start Date End Date Amanda Briones MD 14[address] [facility] [place] [address] PCP - Devoted 04/16/23 Jack Rogel MD [address] [place] [address] (Fax) PCP - General Family Medicine 06/01/23 Linette Blankenship NP 14[address] [facility] [place] [address] Nurse Practitioner Family Medicine 09/07/22 Security Officer Relationship Specialty Start Date End Date Amanda Briones MD [address] [facility] [place] [address] PCP - Devoted 04/16/23 04/15/24 Jack Rogel MD [address] [facility] [address] [place] [address] PCP - General Family Medicine 06/01/23 Linette Blankenship NP [address] [facility] [place] [address] Nurse Practitioner Family Medicine 09/07/22 Security Officer Relationship Specialty Start Date End Date Amanda Briones MD 1479 [facility] [place] [address] PCP - Devoted 04/16/23 04/15/24 Jack Rogel MD [address] [place] [address] (Fax) PCP - General Family Medicine 06/01/23 Linette Blankenship NP 14[address] [facility] [place] [address] Nurse Practitioner Family Medicine 09/07/22 Security Officer Relationship Specialty Start Date End Date Amanda Briones MD [address] [facility] [place] [address] PCP - Devoted 04/16/23 04/15/24 Jack Rogel MD [address] [place] [address] [place] [address] PCP - General Family Medicine 06/01/23 Linette Blankenship NP [address] [facility] [place] [address] Nurse Practitioner Family Medicine 09/07/22 Team Status: Active Member Role Status Dates Jack Rogel MD Primary Care Provider Active Team Status: Inactive Member Role Status Dates Jack Rogel MD Primary Care Provider Active Start: April 02, 2024 End: April 04, 2024 Ngoc Wolf MD Admit Provider Active Sta rt: April 02, 2024 End: April 04, 2024 Gordo Fagan MD Attending Provider Active Star t: April 02, 2024 End: April 04, 2024 Team Status: Active Member Role Status Dates Jack Rogel MD Primary Care Provider Active Start: April 02, 2024 Roberto Weeks DO Attending Provider Active Sta rt: April 02, 2024 Team Status: Inactive Member Role Status Dates Jack Rogel MD Primary Care Provider Active Start: May 19, 2024 End: May 19, 2024 Eloise Galicia MD Attending Provider Active Star t: May 19, 2024 End: May 19, 2024 Security Officer Relationship Specialty Start Date End Date Jack Rogel MD [address] [address] (Fax) PCP - General Family Medicine 06/01/23 Linette Blankenship NP 14[address] [place] [address] Nurse Practitioner Family Medicine 09/07/22 Security Officer Relationship Specialty Start Date End Date Jack Rogel MD [address] [address] (Fax) PCP - General Family Medicine 06/01/23 Linette Blankenship NP [address] [place] [address] Nurse Practitioner Family Medicine 09/07/22 Goals (unrecognized [...] BE BASED ON THE PRIMARY CLINICAL RECORDS. [facility]. provides no warranty or guarantee of the accuracy or completeness of information in this document.
[2024-05-29 13:07] LABS: Anion Gap 12.3; BUN Creatinine Ratio 21.8; Carbon Dioxide 26.7 mmol/L (21.0-32.0); Chloride 104 mmol/L (98-107); Estimated GFR (African America 27 (>=60 mL/min/1.73m^2); Estimated GFR (Non-African Ame 22 (>=60 mL/min/1.73m^2); Glucose 287 mg/dL (74-106); Sodium 138 mmol/L (136-145)
== END 2024-05-29 12:07 | disposition home or self-care (01) ==
LOC: LAB 12:09
PROVIDERS: PCP Family Medicine; Visit Provider Internal Medicine Interventional Cardiology
DX: I48.0 Paroxysmal atrial fibrillation (principal)
CPT/HCPCS: 36415; 80048

== ENCOUNTER 2024-06-27 15:54 | Outpatient (RCR) | payer MEDICARE, SELFPAY | END 2024-08-01 06:53 | disposition home or self-care (01) | LOC: PT 15:54 | PROVIDERS: PCP Family Medicine; Visit Provider Orthopaedic Surgery | DX: R29.898 Other symptoms and signs involving the musculoskeletal system (principal); M25.561 Pain in right knee | CPT/HCPCS: 97110; 97161 ==

== ENCOUNTER 2024-10-29 18:30 | Observation (INO) | payer MEDICARE, SELFPAY ==
--- OUTSIDE RECORDS SUMMARY | 2023-10-29 09:30 | XMS_ITS ---
Author Organization [facility] Servic es Address [address] [place] [address] Care Team Providers Care Switchboard Operator Supervisor Name Role Phone Naty Rabago Primary Care Provider [phone] Heather Koehler [phone] REASON FOR VISIT DEBRIDEMENT Encounters Encounter Location Date Provider Diagnosis [facility] [address] [place] [address] 10/29/2023 Heather Marion Plan Of Treatment No Information Progress Notes * JONATHAN FORBESOB: 2 (84 yo F)Acc No.[id number]:10/29/2023 Patient: MADALYN CHAPA Provider: Feliberto Alex :1940 A ge:83 Y S ex:Female Date:10/29/2023 Address:[address] [place], [place] [id number] Pcp:Naty Rabago Subjective: * Chief Complaints: * 1 . DEBRIDEMENT. * Medical History: Objective: * Vitals: Assessment: Plan: * Treatment: * Images: * Electronic signature of Michelle Marion on 10/29/2024 at 06:40 PM EDT Sign off status: Pending * Provider: Feliberto Alex Date: 0 10/29/2023 Generated for Zaheer zapien/Randy/eTalexy on: 10/29/2024 06:40 PM EDT
--- OUTSIDE RECORDS SUMMARY | 2023-11-05 09:00 | XMS_ITS ---
Author Organization [facility] Servic es Address [address] [place] [address] Care Team Providers Care Nursing Program Manager Name Role Phone Naty Rabago Primary Care Provider [phone] Heather Koehler [phone] REASON FOR VISIT DEBRIDEMENT Encounters Encounter Location Date Provider Diagnosis [facility] [address] [place] [address] 11/05/2023 Heather Marion Plan Of Treatment No Information Progress Notes * JONATHAN FORBESOB: 2 (84 yo F)Acc No.[id number]:11/05/2023 Patient: MADALYN CHAPA Provider: Feliberto Alex :1940 A ge:83 Y S ex:Female Date:11/05/2023 Address:[address] [place], [place] [phone] Pcp:Naty Rabago Subjective: * Chief Complaints: * 1 . DEBRIDEMENT. * Medical History: Objective: * Vitals: Assessment: Plan: * Treatment: * Images: * Electronic signature of Michelle Marion on 10/29/2024 at 06:40 PM EDT Sign off status: Pending * Provider: Feliberto Alex Date: 0 11/05/2023 Generated for Zaheer zapien/Randy/eTalexy on: 10/29/2024 06:40 PM EDT
[2024-10-29] VITALS (7 sets, daily range): BP systolic 136–188; BP diastolic 70–90; PULSE 57–75; TEMP 36.6–36.9; O2SAT 95–96; BMI 23.9; BMI 24.1
--- OUTSIDE RECORDS SUMMARY | 2024-10-29 18:39 | XMS_ITS | Encounter Summary ---
Author Organization [facility] Address [address] [place] [address] Phone Care Team Providers Care Personnel Quality Assurance Auditor Name Role Phone Jack Restrepo MD Primary Care Provider [phone] Encounter Details Date Type Department Care Team (Late st Contact Info) Description 05/29/2024 Scanned Document [facility] [address] [place] [phone] Scanning, Generic Provider Social History Tobacco Use Types Packs/Day Years Used Date Smoking Tobacco: Never Smokeless Tobacco: Never Alcohol Use Standard Drinks/Week Comments Never 0 (1 standard drink = 0.6 oz pur e alcohol) Comments Unknown Sex and Gender Information Value Date Recorded Sex Assigned at Not on file Legal Sex Female 10:18 PM EST Gender Identity Not on file Sexual Orientation Not on file COVID-19 Exposure Response Date Recorded In the last 10 days, have yo u been in contact with someone who was confirmed or suspected to have Coronavirus/COVID-19? No / Unsure 05/19/2024 1:37 PM EST documented as of this encounter Plan of Treatment Upcoming Encounters Date Type Department Care Team (Late st Contact Info) Description 12/16/2024 2:30 PM EDT Office Visit [facility] Medical Office Building [address] [phone] Eloise Galicia MD [address] [place] [address] 03/02/2025 1:40 PM EST Telemedicine [facility] [address] [place] [phone] Emma Hall, PharmD [address] [facility] [address] [place] [address] documented as of this encounter Procedures Procedure Name Priority Date/Time Associated Diagnosis Comments OUTSIDE LAB SCAN 05/29/2024 documented in this encounter Results * OUTSIDE LAB SCAN (05/29/2024) Narrative 05/29/2024 Ordered by an unspecified provider. us Generic Provider Scanning OUTSIDE SCAN Final Result documented in this encounter Visit Diagnoses Not on filedocumented in this encounter Additional Health Concerns Assessment Noted Time A fall risk assessment has been complete d for the patient 05/19/2024 1:59 PM EST documented as of this encounter Care Teams Personnel Quality Assurance Auditor Relationship Specialty Start Date End Date Jack Restrepo MD [address] [address] PCP - General Family Medicine 05/19/24 documented as of this encounter
--- OUTSIDE RECORDS SUMMARY | 2024-10-29 18:39 | XMS_ITS | Encounter Summary ---
Author Organization [facility] Address [address] [place] [address] Phone Care Team Providers Care Stereotype Finisher Name Role Phone Jack Restrepo MD Primary Care Provider [phone] Encounter Details Date Type Department Care Team (Late st Contact Info) Description 05/19/2024 Scanned Document [facility] [address] [place] [phone] Scanning, Generic Provider Social History Tobacco Use [...] Description 12/16/2024 2:30 PM EDT Office Visit [facility] Medical Office Building [address] [phone] Eloise Galicia MD [address] [place] [address] 03/02/2025 1:40 PM EST Telemedicine [facility] [address] [place] [phone] Emma Hall, PharmD [address] [facility] [address] [place] [address] documented as of this encounter Procedures Procedure Name Priority Date/Time Associated Diagnosis Comments ECHOCARDIOGRAM 05/19/2024 documented in this encounter Results * Echocardiogram (05/19/2024) Narrative 05/19/2024 Ordered by an unspecified provider. us Generic Provider Scanning CV ECHO PROCEDURES Fin al Result documented in this encounter Visit Diagnoses Not on filedocumented in this encounter Additional Health Concerns Assessment Noted Time A fall risk assessment has been complete d for the patient 05/19/2024 1:59 PM EST documented as of this encounter Care Teams Stereotype Finisher Relationship Specialty Start Date End Date Jack Restrepo MD [address] [place] [address] PCP - General Family Medicine 05/19/24 documented as of this encounter
--- OUTSIDE RECORDS SUMMARY | 2024-10-29 18:39 | XMS_ITS | Encounter Summary ---
Author Organization [facility] Address [address] [place] [address] Care Team Providers Care Reed Man Name Role Phone Linette Blankenship BETTINA Unavailable [phone] Jack Restrepo MD Primary Care Provider [phone] Toi Jensen DPM Unavailable [phone] Jack Restrepo MD Unavailable [phone] Robin Hsu MD Unavailable [phone] Encounter Details Date Type Department Care Team (Late st Contact Info) Description 08/19/2024 Orders Only [facility] [address] [place] [address] Jack Restrepo MD [address] [place], [place] [id number] Social History Tobacco Use Types Packs/Day Years Used Date Smoking Tobacco: Never Passive Smoke Exposure: Past Smokeless Tobacco: Never Alcohol Use Standard Drinks/Week Comments Not Currently 0 (1 standard drink = 0.6 oz pure alcohol) caffeine intake: 3-4 cups daily coffee PHQ-2 Answer Date Recorded Patient Health Questionnaire-2 Score 0 03/16/2023 Comments No Sex and Gender Information Value Date Recorded Sex Assigned at Not on file Legal Sex Female 6:58 PM EDT Gender Identity Not on file Sexual Orientation Not on file documented as of this encounter Plan of Treatment Not on file documented as of this encounter Visit Diagnoses Not on filedocumented in this encounter Additional Health Concerns Assessment Noted Time PHQ-9 Depression Total Score: 2 05/14/19 24 1:00 PM EST documented as of this encounter Care Teams Reed Man Relationship Specialty Start Date End Date Jack Restrepo MD 112 [facility] 100 [place] [address] PCP - General Family Medicine 06/01/23 Jack Restrepo MD 112 [facility] 100 [place] [address] PCP - Fernando COLIN 05/17/24 Linette Blankenship NP [address] [place] [address] Nurse Practitioner Family Medicine 09/07/22 Toi Jensen DPM 112 [facility] 120 [place] [address] Referring Physician Podiatry 06/05/24 Robin Hsu MD [address] [address] [address] [place] [address] Referring Physician Vascular Surgery 09/15/24 documented as of this encounter
--- OUTSIDE RECORDS SUMMARY | 2024-10-29 18:39 | XMS_ITS | Encounter Summary ---
Author Organization [facility] Address [address] [place] [address] Care Team Providers Care Physical Meteorologist Name Role Phone Amanda Briones MD Primary Care Provider [phone] Linette Blankenship NP Unavailable [phone] Amanda Briones MD Unavailable [phone] Amanda Briones MD Unavailable [phone] Jack Restrepo MD Primary Care Provider Toi Jensen DPM Unavailable [phone] Jack Restrepo MD Unavailable [phone] Robin Hsu MD Unavailable [phone] Encounter Details Date Type Department Care Team (Late st Contact Info) Description 03/20/2023 Orders Only [facility] 14[address] [place] [address] Amanda Briones MD [address] [place] [address] Social History Tobacco Use Types Packs/Day Years Used Date Smoking Tobacco: Never Passive Smoke Exposure: Past Smokeless Tobacco: Never Alcohol Use Standard Drinks/Week Comments Not Currently 0 (1 standard drink = 0.6 oz pure alcohol) caffeine intake: 3-4 cups daily. PHQ-2 Answer Date Recorded Patient Health Questionnaire-2 Score 0 03/16/2023 Comments Unknown Sex and Gender Information Value Date Recorded Sex Assigned at Not on file Legal Sex Female 6:58 PM EDT Gender Identity Not on file Sexual Orientation Not on file documented as of this encounter Plan of Treatment Not on file documented as of this encounter Procedures Procedure Name Priority Date/Time Associated Diagnosis Comments DIABETIC RETINOPATHY SCREENING - OU - BOTH EYES Routine 03/19/2023 8:06 AM EST documented in this encounter Results * Diabetic Retinopathy Screening - OU - Both Eyes (03/19/2023 8:06 AM EST) Anatomical Region Laterality Modality Head Other us Amanda Briones MD OPHTH PHOTOGRAPHY Final Resul t documented in this encounter Visit Diagnoses Not on filedocumented in this encounter Additional Health Concerns Assessment Noted Time PHQ-9 Depression Total Score: 1 03/16/20 23 3:00 PM EST documented as of this encounter Care Teams Physical Meteorologist Relationship Specialty Start Date End Date Amanda Briones MD [address] [place] [address] PCP - General Family Medicine 09/07/22 05/31/23 Amanda Briones MD [address] [place] [address] PCP - Fernando COLIN 09/14/22 04/15/23 Amanda Briones MD [address] [place] [address] PCP - Devoted 04/16/23 04/15/24 Jack Restrepo MD [address] [address] PCP - General Family Medicine 06/01/23 Jack Restrepo MD [address] [address] PCP - Fernando COLIN 05/17/24 Linette Blankenship NP [address] [place] [address] Nurse Practitioner Family Medicine 09/07/22 Toi Jensen DPM 112 [facility] [address] [place] [address] Referring Physician Podiatry 06/05/24 Robin Hsu MD [address] [address] [address] [place], [place] [phone] Referring Physician Vascular Surgery 09/15/24 documented as of this encounter
--- OUTSIDE RECORDS SUMMARY | 2024-10-29 18:39 | XMS_ITS | Encounter Summary ---
Author Organization [facility] Address [address] [place] [address] Phone Care Team Providers Care Master Brewer Name Role Phone Jack Restrepo MD Primary Care Provider [phone] Encounter Details Date Type Department Care Team (Late st Contact Info) Description 06/04/2024 Scanned Document [facility] [address] [place] [phone] Scanning, Generic Provider Social History Tobacco Use [...] Description 12/16/2024 2:30 PM EDT Office Visit [facility] Medical Office Building [address] [phone] Eloise Galicia MD [address] [place] [address] 03/02/2025 1:40 PM EST Telemedicine [facility] [address] [place] [address] Emma Hall, PharmD [address] [facility] [address] [place] [address] Scheduled Orders Name Type Priority Associated Diagnoses Orde r Schedule Ultrasound- OnBase Scan Imaging O rdered: 06/04/2024 documented as of this encounter Visit Diagnoses Not on filedocumented in this encounter Additional Health Concerns Assessment Noted Time A fall risk assessment has been complete d for the patient 05/19/2024 1:59 PM EST documented as of this encounter Care Teams Master Brewer Relationship Specialty Start Date End Date Jack Restrepo MD [address] [place] [address] PCP - General Family Medicine 05/19/24 documented as of this encounter
--- OUTSIDE RECORDS SUMMARY | 2024-10-29 18:39 | XMS_ITS | Encounter Summary ---
Author Organization [facility] Address [address] [place] [address] Phone Care Team Providers Care Chief Deputy Name Role Phone Jack Restrepo MD Primary Care Provider [phone] Jack Restrepo MD Primary Care Provider [phone] Encounter Details Date Type Department Care Team (Late st Contact Info) Description 04/04/2024 Scanned Document [facility] [address] [place] [phone] Scanning, Generic Provider Social History Tobacco Use [...] Description 12/16/2024 2:30 PM EDT Office Visit [facility] Medical Office Building [address] [phone] Eloise Galicia MD 7 [facility] 130 [place] [address] 03/02/2025 1:40 PM EST Telemedicine [facility] [address] [place] [phone] Emma Hall, PharmD [address] [place] [address] documented as of this encounter Visit Diagnoses Not on filedocumented in this encounter Additional Health Concerns Assessment Noted Time A fall risk assessment has been complete d for the patient 07/02/2023 1:17 PM EDT documented as of this encounter Care Teams Chief Deputy Relationship Specialty Start Date End Date Jack Restrepo MD PCP - General Family Medicine 07/02/23 05/18/24 Jack Restrepo MD [address] [place] [address] [address] [place] [address] PCP - General Family Medicine 05/19/24 documented as of this encounter
--- OUTSIDE RECORDS SUMMARY | 2024-10-29 18:39 | XMS_ITS | Clinical Summary ---
Author Organization [facility] Address [address] [place] [address] Care Team Providers Care Manufacturing Project Engineer Name Role Phone Jorge Luis Simon Primary Care Provider Allergies Active Allergy Reactions Criticality Noted Date Comments Amino Acids Other: See Comments High 01/31/2022 Lisinopril Unknown 04/05/2021 Penicillins Other: See Comments 04/05/2021 Dizzy and passed out Medications aspirin 81 mg cap aspirin low dose 81mg ec Active carvedilol (COREG) 3.125 mg tablet Take 3.125 mg by mouth twice daily with meals. 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, left 04/12/2021 Immunizations Immunization Administration Dates Next Due COVID-19 original vaccine, a ge 12+ yr, monovalent ([employer] - PURPLE TOP) 02/04/2021,06/03/2020,05/12/2020 influenza (HD-IIV3) vaccine, age 65+ yr, high dose, trivalent, PF (FLUZONE HIGH-DOSE) 12/26/2019,01/24/2018,01/25/2017 pneumococcal conjugate (PCV1 3) vaccine, 13 valent (PREVNAR 13) 10/12/2014 pneumococcal polysaccharide (PPV23) vaccine, 23 valent (PNEUMOVAX 23) 04/05/2010 Family History Medical History Relation Comments COPD Father Heart disease Father Diabetes Mother Heart disease Mother Relation Status Comments Father Mother Social History Tobacco Use Types Packs/Day Years Used Date Smoking Tobacco: Never Smokeless Tobacco: Never Alcohol Use Standard Drinks/Week Comments Not Currently 0 (1 standard drink = 0.6 oz pur e alcohol) PHQ-2 Answer Date Recorded PHQ-2 score 0 05/12/2021 Area Deprivation Index Answer Date Horace rded National Score (1-100), lower number is lower ri sk 60 04/28/2022 State Score (1-10), lower number is lower risk N ot on file 04/28/2022 Data from: https://www.neighborhoodatlas.medicine.[facility]/. Last address used for calculation [address] 04/28/2022 Comments No Sex and Gender Information Value Date Recorded Sex Assigned at Not on file Legal Sex Female 12:50 PM EST Gender Identity Not on file Sexual Orientation Not on file Last Filed Vital Signs Vital Sign Reading Time Taken Comments Blood Pressure 142/65 01/31/2022 3:09 PM EDT Pulse 62 01/31/2022 3:09 PM EDT Temperature 36.3 C (97.3 F) 01/31/2022 3:09 PM EDT Respiratory Rate 16 01/31/2022 3:09 PM EDT Oxygen Saturation 100% 01/31/2022 3:09 PM EDT Inhaled Oxygen Concentration - - Weight 70 kg (154 lb 6.4 oz) 01/31/2022 3:09 PM EDT Height 158.9 cm (5' 2.56 ) 01/31/2022 3:09 PM ED T Body Mass Index 27.74 01/31/2022 3:09 PM EDT Plan of Treatment Health Maintenance Due Date Last Done Comments Anxiety Screening 1958 Depression Screening 1958 DTaP,Tdap,Td Vaccine (1 - Tdap) 1960 Shingrix Vaccine (1 of 2) 1991 Bone Density Screening 2006 RSV Vaccine (1 - 1-dose 75+ series) 2016 Covid-19 Vaccine ( - season) 2023 02/04/2021, 06/03/2020, 05/12/2020 Advance Directive Discussion 04/16/2024 Diabetes Screening 07/28/2024 07/28/2021, 04/11/2021 Influenza Vaccine (#1) 2024 0, 01/24/2018, 01/25/2017 Pneumococcal Vaccine: 50+ Completed 10/12/2014, Procedures Procedure Name Priority Date/Time Associated Diagnosis Comments COMPREHENSIVE METABOLIC PANEL Routine 07/28/2021 2:03 PM EDT 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, left (HCC) Lymphocytosis from Last 3 Months or Most Recently Relevant to Health Maintenance Results * (ABNORMAL) COMP METABOLIC PANEL (07/28/2021 2:03 PM EDT) Pathologist [facility] Protein, Total 7.5 6.3 - 8.0 g/dL 07/28/2021 2:33 PM EDT [facility] Albumin 4.2 3.9 - 4.9 g/dL 07/28/2021 2:33 PM EDT [facility] Calcium, Total 9.8 8.5 - 10.2 mg/dL 07/28/2021 2:33 PM EDT [facility] Bilirubin, Total 0.4 0.2 - 1.3 mg/dL 07/28/2021 2:33 PM EDT [facility] Alkaline Phosphatase 72 34 - 123 U/L 07/28/2021 2:33 PM EDT [facility] AST 17 13 - 35 U/L 07/28/2021 2:33 PM EDT [facility] ALT 7 7 - 38 U/L 07/28/2021 2:33 PM EDT [facility] Glucose 129(H) 74 - 99 mg/dL 07/28/2021 2:33 PM EDT [facility] Comment: The [place] Diabetes Association (ADA) provides guidance for cutoff [...] Standards of Medical Care in Diabetes 2016, [place] Diabetes Association. Diabetes Care. 2016.39(Suppl 1). BUN 22(H) 7 - 21 mg/dL 07/28/2021 2:33 PM EDT [facility] Creatinine 1.31(H) 0.58 - 0.96 mg/dL 07/28/2021 2:33 PM EDT [facility] Sodium 138 136 - 144 mmol/L 07/28/2021 2:33 PM EDT [facility] Potassium 4.6 3.7 - 5.1 mmol/L 07/28/2021 2:33 PM EDT [facility] Chloride 105 97 - 105 mmol/L 07/28/2021 2:33 PM EDT [facility] CO2 26 22 - 30 mmol/L 07/28/2021 2:33 PM EDT [facility] Anion Gap 7(L) 9 - 18 mmol/L 07/28/2021 2:33 PM EDT [facility] Estimated Glomerular Filtration Rate 41(L) >=60 mL/min/1. 73m 07/28/2021 2:33 PM EDT [facility] Comment:Estimated Glomerular Filtration Rate (eGFR) is calculated using the 2020 CKD-EPI creatinine equation. This equation utilizes serum creatinine, sex, and age as parameters. The creatinine assay has traceable calibration to isotope dilution- mass spectrometry. Refer to KDIGO guidelines for clinical interpretation. In patients with unstable renal function, e.g. those with acute kidney injury, the eGFR may not accurately reflect actual GFR. Blood BLOOD SPECIMEN / Unknown Venipuncture / Unknown 07/28/2021 2:03 PM EDT 07/28/2021 2:03 PM EDT us Drake Anand MD LABORATORY Final Result [facility] [address] [place] [address] from Last 3 Months or Most Recently Relevant to Health Maintenance Insurance ON LICENSE OF [facility] MEDICARE ADVANTAGE HMO Care Teams Manufacturing Project Engineer Relationship Specialty Start Date End Date Jorge Luis Simon DO [address] [place] [phone] PCP - General Family Medicine 03/28/21
--- OUTSIDE RECORDS SUMMARY | 2024-10-29 18:40 | XMS_ITS | Encounter Summary ---
Author Organization [facility] Address [address] [place] [address] Care Team Providers Care Health Services Administrator Name Role Phone Amanda Briones MD Primary Care Provider [phone] Linette Blankenship NP Unavailable [phone] Amanda Briones MD Unavailable [phone] Amanda Briones MD Unavailable [phone] Jack Restrepo MD Primary Care Provider Toi Jensen DPM Unavailable [phone] Jack Restrepo MD Unavailable [phone] Robin Hsu MD Unavailable [phone] Encounter Details Date Type Department Care Team (Late st Contact Info) Description 03/27/2023 Orders Only [facility] [address] [facility] [place] [address] Jack Restrepo MD [address] [place] [address] Social History Tobacco Use Types Packs/Day Years [...] documented as of this encounter Care Teams Health Services Administrator Relationship Specialty Start Date End Date Amanda Briones MD [address] [facility] [place] [address] PCP - General Family Medicine 09/07/22 05/31/23 Amanda Briones MD [address] [facility] [place] [address] PCP - Fernando COLIN 09/14/22 04/15/23 Amanda Briones MD [address] [facility] [place] [address] PCP - Devoted 04/16/23 04/15/24 Jack Restrepo MD 112 [facility] 100 [place] [address] PCP - General Family Medicine 06/01/23 Jack Restrepo MD 112 [facility] 100 [place] [address] PCP - Fernando COLIN 05/17/24 Linette Blankenship NP [address] [facility] [place] [address] Nurse Practitioner Family Medicine 09/07/22 Toi Jensen DPM 112 [facility] [address] [place] [address] Referring Physician Podiatry 06/05/24 Robin Hsu MD [address] [address] [address] [facility] [place] [address] Referring Physician Vascular Surgery 09/15/24 documented as of this encounter
--- OUTSIDE RECORDS SUMMARY | 2024-10-29 18:40 | XMS_ITS | Encounter Summary ---
Author Organization [facility] Address [address] [place] [address] Phone Care Team Providers Care Operations Representative Name Role Phone Jack Restrepo MD Primary Care Provider + [phone] Jack Restrepo MD Primary Care Provider + [phone] Encounter Details Date Type Department Care Team (Late st Contact Info) Description 04/03/2024 Scanned Document [facility] [address] [place] [phone] Scanning, Generic Provider Social History Tobacco Use [...] Description 12/16/2024 2:30 PM EDT Office Visit [facility] [address] [phone] Eloise Galicia MD 7 [facility] [address] [place] [address] 03/02/2025 1:40 PM EST Telemedicine [facility] [address]ov[address] [place] [phone] Emma Hall, PharmD [address] [place] [address] documented as of this encounter Procedures Procedure Name Priority Date/Time Associated Diagnosis Comments ECHOCARDIOGRAM 04/03/2024 documented in this encounter Results * Echocardiogram (04/03/2024) Narrative 04/03/2024 Ordered by an unspecified provider. us Generic Provider Scanning CV ECHO PROCEDURES Fin al Result documented in this encounter Visit Diagnoses Not on filedocumented in this encounter Additional Health Concerns Assessment Noted Time A fall risk assessment has been complete d for the patient 07/02/2023 1:17 PM EDT documented as of this encounter Care Teams Operations Representative Relationship Specialty Start Date End Date Jack Restrepo MD PCP - General Family Medicine 07/02/23 05/18/24 Jack Restrepo MD [address] [address] PCP - General Family Medicine 05/19/24 documented as of this encounter
--- OUTSIDE RECORDS SUMMARY | 2024-10-29 18:40 | XMS_ITS | Encounter Summary ---
Author Organization [facility] Address [address] [place] [address] Care Team Providers Care Fancy Sewer Name Role Phone Linette Blankenship BETTINA Unavailable [phone] Jack Restrepo MD Primary Care Provider [phone] Toi Jensen DPM Unavailable [phone] Jack Restrepo MD Unavailable [phone] Robin Hsu MD Unavailable [phone] Encounter Details Date Type Department Care Team (Late st Contact Info) Description 10/27/2024 Abstract [facility] [address] [place] [address] Jack Restrepo MD 112 [facility] [address] [place], [place] [id number] Social History Tobacco Use Types Packs/Day Years Used Date Smoking Tobacco: Never Passive Smoke Exposure: Past Smokeless Tobacco: Never Alcohol Use Standard Drinks/Week Comments Not Currently 0 (1 standard drink = 0.6 oz pure alcohol) caffeine intake: 3-4 cups daily coffee PHQ-2 Answer Date Recorded Patient Health Questionnaire-2 Score 4 09/03/2024 Comments No Sex and Gender Information Value [...] Assessment Noted Time PHQ-9 Depression Total Score: 9 09/04/19 25 2:00 PM EDT documented as of this encounter Care Teams Fancy Sewer Relationship Specialty Start Date End Date Jack Restrepo MD 112 [facility] 100 [place] [address] PCP - General Family Medicine 06/01/23 Jack Restrepo MD 112 [facility] 100 [place] [address] PCP - Fernando COLIN 05/17/24 Linette Blankenship NP [address] [place] [address] Nurse Practitioner Family Medicine 09/07/22 Toi Jensen DPM 112 [facility] 120 [place] [address] Referring Physician Podiatry 06/05/24 Robin Hsu MD [address] [address] [address] [place] [address] Referring Physician Vascular Surgery 09/15/24 documented as of this encounter
--- OUTSIDE RECORDS SUMMARY | 2024-10-29 18:40 | XMS_ITS | Encounter Summary ---
Author Organization [facility] Address [address] [place] [address] Phone Care Team Providers Care Small Business Sales Representative Name Role Phone Jorge Luis Simon DO Primary Care Provider Jack Restrepo MD Primary Care Provider + [phone] Jack Restrepo MD Primary Care Provider + [phone] Encounter Details Date Type Department Care Team (Late st Contact Info) Description 06/26/2023 Scanned Document [facility] [address] [place] [address] Scanning, Generic Provider Social History Tobacco Use Types Packs/Day Years Used Date Smoking Tobacco: Never Assessed Comments Unknown Sex and Gender Information Value Date Recorded Sex Assigned at Not on file Legal Sex Female 10:18 PM EST Gender Identity Not on file Sexual Orientation Not on file documented as of this encounter Plan of Treatment Upcoming Encounters Date Type Department Care Team (Late st Contact Info) Description 12/16/2024 2:30 PM EDT Office Visit [facility] Medical Office Building [address] [facility] 130 [place] [address] Eloise Galicia MD 7 [facility] 130 [place] [address] 03/02/2025 1:40 PM EST Telemedicine [facility] [address] [place] [phone] Emma Hall, PharmD [address] [facility] [address] [place] [address] documented as of this encounter Visit Diagnoses Not on filedocumented in this encounter Care Teams Small Business Sales Representative Relationship Specialty Start Date End Date Jorge Luis SimonDO PCP - General 01/22/19 07/01/23 Jack Restrepo MD PCP - General Family Medicine 07/02/23 05/18/24 Jack Restrepo MD [address] [place] [address] [address] [place] [address] PCP - General Family Medicine 05/19/24 documented as of this encounter
--- OUTSIDE RECORDS SUMMARY | 2024-10-29 18:40 | XMS_ITS | Encounter Summary ---
Author Organization [facility] Address [address] [place] [address] Care Team Providers Care Psychologist Private Practice Name Role Phone Amanda Briones MD Primary Care Provider [phone] Linette Blankenship NP Unavailable [phone] Amanda Briones MD Unavailable [phone] Amanda Briones MD Unavailable [phone] Jack Restrepo MD Primary Care Provider + [phone] Toi Jensen DPM Unavailable [phone] Jack Restrepo MD Unavailable [phone] Robin Hsu MD Unavailable [phone] Encounter Details Date Type Department Care Team (Late st Contact Info) Description 03/21/2023 Orders Only [facility] [address] [place] [address] Unallocated, Noms Provider, [address] [place] [address] Social History Tobacco Use Types Packs/Day Years [...] Procedure Name Priority Date/Time Associated Diagnosis Comments CT SCAN : BRAIN W/O CONTRAST Routine 03/21/2023 4:19 PM EST documented in this encounter Results * CT SCAN : BRAIN W/O CONTRAST (03/21/2023 4:19 PM EST) Anatomical Region Laterality Modality Radiographic Tami ging us Noms Provider Unallocated IMBladimir XR PROCEDURES F inal Result documented in this encounter Visit Diagnoses Not on filedocumented in this encounter Additional Health Concerns Assessment Noted Time PHQ-9 Depression Total Score: 1 03/16/20 23 3:00 PM EST documented as of this encounter Care Teams Psychologist Private Practice Relationship Specialty Start Date End Date Amanda Briones MD [address] [place] [address] PCP - General Family Medicine 09/07/22 05/31/23 Amanda Briones MD [address] [place] [address] PCP - Fernando COLIN 09/14/22 04/15/23 Amanda Briones MD [address] [place] [address] PCP - Devoted 04/16/23 04/15/24 Jack Restrepo MD [address] [address] PCP - General Family Medicine 06/01/23 Jack Restrepo MD [address] [address] (Fax) PCP - Fernando COLIN 05/17/24 Linette Blankenship NP [address] [place] [address] Nurse Practitioner Family Medicine 09/07/22 Toi Jensen DPM 112 [facility] [address] [place], [place] [id number] Referring Physician Podiatry 06/05/24 Robin Hsu MD [address] [address] [address] [place], [place] [phone] Referring Physician Vascular Surgery 09/15/24 documented as of this encounter
--- OUTSIDE RECORDS SUMMARY | 2024-10-29 18:40 | XMS_ITS | Patient Health Record ---
Author Organization [facility] Address [address] [facility] [place] [address] Care Team Providers Care Environmental Studies Department Chair Name Role Phone Naty Rabago Primary Care Provider [phone] [phone] Reason For Referral No Information Plan Of Treatment No Information Insurance Providers Payer Name Payer Address Payer Phone Subscriber Number Group Number Insured Name Patient Relationship to Insured Coverage Start Date Coverage End Date [employer] MEDICARE ADVANTAGE [address] [place] [phone] [id number] MADALYN FRANCISCO Self - patient is the insured 4
--- OUTSIDE RECORDS SUMMARY | 2024-10-29 18:40 | XMS_ITS | Encounter Summary ---
Author Organization [facility] Address [address] [place] [address] Care Team Providers Care Contracts Law Professor Name Role Phone Linette Blankenship BETTINA Unavailable [phone] Jack Restrepo MD Primary Care Provider [phone] Toi Jensen DPM Unavailable [phone] Jack Restrepo MD Unavailable [phone] Robin Hsu MD Unavailable [phone] Encounter Details Date Type Department Care Team (Late st Contact Info) Description 09/25/2024 Abstract [facility] [address] [place] [address] Jack Restrepo MD 112 [facility] [address] [place], [place] [id number] Social History Tobacco Use Types Packs/Day Years [...] documented as of this encounter Care Teams Contracts Law Professor Relationship Specialty Start Date End Date Jack Restrepo MD 112 [facility] [address] [place] [address] PCP - General Family Medicine 06/01/23 Jack Restrepo MD 112 [facility] [address] [place] [address] PCP - Fernando COLIN 05/17/24 Linette Blankenship NP [address] [place] [address] Nurse Practitioner Family Medicine 09/07/22 Toi Jensen DPM 112 [facility] [address] [place] [address] Referring Physician Podiatry 06/05/24 Robin Hsu MD [address] [address] [address] [place] [address] Referring Physician Vascular Surgery 09/15/24 documented as of this encounter
--- OUTSIDE RECORDS SUMMARY | 2024-10-29 18:40 | XMS_ITS | Encounter Summary ---
Author Organization [facility] Address [address] [place] [address] Care Team Providers Care Water Supply Technician Name Role Phone Linette Blankenship BETTINA Unavailable [phone] Amanda Briones MD Unavailable [phone] Jack Restrepo MD Primary Care Provider [phone] Toi Jensen DPM Unavailable [phone] Jack Restrepo MD Unavailable [phone] Robin Hsu MD Unavailable [phone] Encounter Details Date Type Department Care Team (Late st Contact Info) Description 08/09/2023 Clinisync Result Encounter [facility] Unsolicited Provider, Generic External Data Social History Tobacco Use Types Packs/Day Years [...] Procedure Name Priority Date/Time Associated Diagnosis Comments TRANSTHORACIC ECHO (TTE) COMPLETE 08/09/2023 8:51 AM EDT documented in this encounter Results * Transthoracic echo (TTE) complete (08/09/2023 8:51 AM EDT) Anatomical Region Laterality Modality Ultrasound 08/09/2023 8:51 AM EDT Narrative 08/09/2023 6:28 PM EDT [address], [address] [place] [address] TRANSTHORACIC ECHOCARDIOGRAM REPORT Patient Name: MADALYN HERNANDEZ Reading Physician: [id number] Esther Taylor MD Study Date: 08/09/2023 Ordering Provider: [id number] ALLAN RUSSELL MRN/PID: [id number] Fellow: Nurse: Date of /Age: 1 1940 / 83 years Mental Hygienist: Anna Marie Mckinney RDCS, RVT Gender: F Additional Staff: Height: 160.02 cm Admit Date: Weight: 66.23 kg Admission Status: BSA / BMI: 1.69 m2 / 25.86 kg/m2 Department Location: [facility] Blood Pressure: 134 /88 mmHg Study Type: TRANSTHORACIC ECHO (TTE) COMPLETE Diagnosis/ICD: 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; 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 Indication: Paroxysmal Atrial Fibrillation, CAD, HTN, Hyperlipidemia, CKD-Stage III, Previous TIA, Mild Pumonary HTN CPT Codes: Echo Complete w Full Doppler-[id number] Study Detail: The following Echo studies were [...] AoV Mean P.0 mmHg (1.7-11.5mmHg) LVOT Max Tolu: 0.65 m/s (<=1.1m/s) AoV VTI: 28.50 cm (18-25cm) LVOT VTI: 15.20 cm LVOT Diameter: 2.20 cm (1.8-2.4cm) AoV Area, VTI: 2.03 cm2 (2.5-5.5cm2) AoV Area,Vmax: 1.88 cm2 (2.5-4.5cm2) AoV Dimensionless Index: 0.53 TRICUSPID VALVE/RVSP: Normal Ranges: Peak TR Velocity: 2.12 m/s RV Syst Pressure: 21.0 mmHg (< 30mmHg) PULMONIC VALVE: Normal Ranges: PV Max Tolu: 0.7 m/s (0.6-0.9m/s) PV Max P.8 mmHg PIEDV: 2.05 m/s PADP: 19.8 mmHg [id number] Esther Taylor MD Electronically signed on 08/09/2023 at 6:28:33 PM Final Procedure Note Radiology, Radiologist, - 08/09/[address], [place] [address] TRANSTHORACIC ECHOCARDIOGRAM REPORT Patient Name: MADALYN HERNANDEZ Henrietta Physician: [id number] Rivas Study Date: 08/09/2023 Ordering Provider: [id number] RUSSELL MRN/PID: [id number] Fellow: Nurse: Date of /Age: 1 1940 / 83 years Mental Hygienist: Blake REHMAN RVT Gender: F Additional Staff: Height: 160.02 cm Admit Date: Weight: 66.23 kg Admission Status: BSA / BMI: 1.69 m2 / 25.86 kg/m2 Department Location: [facility] Blood Pressure: 134 /88 mmHg Study Type: TRANSTHORACIC ECHO (TTE) COMPLETE Diagnosis/ICD: 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 PHYSICIAN INTERPRETATION: Left Ventricle: Left ventricular systolic function is low normal, with anestimated ejection fraction of 50-55%. There are no regional wall motionabnormalities. The left ventricular cavity size is normal. SpectralDoppler shows an impaired relaxation pattern of left ventricular diastolicfilling. Left Atrium: The left atrium is normal in size. Right Ventricle: The right ventricle is normal in size. There is normalright ventricular global systolic function. Right Atrium: The right atrium is normal in size. Aortic Valve: The aortic valve appears structurally normal. There is noevidence of aortic valve regurgitation. The peak instantaneous gradient ofthe aortic valve is 6.9 mmHg. The mean gradient of the aortic valve is 3.0mmHg. Mitral Valve: The mitral valve is normal in structure. There is mildmitral valve regurgitation. Tricuspid Valve: The tricuspid valve is structurally normal. There istrace to mild tricuspid regurgitation. The Doppler estimated RVSP iswithin normal limits at 21.0 mmHg. Pulmonic Valve: The pulmonic valve is structurally normal. There is noindication of pulmonic valve regurgitation. Pericardium: There is no pericardial effusion noted. Aorta: The aortic root is normal. CONCLUSIONS: 1. Left ventricular systolic function is low normal with a 50-55%estimated ejection fraction. 2. Spectral Doppler shows an impaired relaxation pattern of leftventricular diastolic filling. 3. Mild mitral valve regurgitation. [...] AoV Mean P.0 mmHg (1.7-11.5mmHg) LVOT Max Tolu: 0.65 m/s (<=1.1m/s) AoV VTI: 28.50 cm (18-25cm) LVOT VTI: 15.20 cm LVOT Diameter: 2.20 cm (1.8-2.4cm) AoV Area, VTI: 2.03 cm2 (2.5-5.5cm2) AoV Area,Vmax: 1.88 cm2 (2.5-4.5cm2) AoV Dimensionless Index: 0.53 TRICUSPID VALVE/RVSP: Normal Ranges: Peak TR Velocity: 2.12 m/s RV Syst Pressure: 21.0 mmHg (< 30mmHg) PULMONIC VALVE: Normal Ranges: PV Max Tolu: 0.7 m/s (0.6-0.9m/s) PV Max P.8 mmHg PIEDV: 2.05 m/s PADP: 19.8 mmHg [id number] Esther Taylor MD Electronically signed on 08/09/2023 at 6:28:33 PM Final us Generic External Data Provider CV ECHO PROCEDURE S Final Result documented in this encounter Visit Diagnoses Not on filedocumented in this encounter Additional Health Concerns Assessment Noted Time PHQ-9 Depression Total Score: 2 05/14/19 24 1:00 PM EST documented as of this encounter Care Teams Water Supply Technician Relationship Specialty Start Date End Date Amanda Briones MD [address] [place] [address] PCP - Devoted 04/16/23 04/15/24 Jack Restrepo MD [address] [facility] [address] [place] [address] PCP - General Family Medicine 06/01/23 Jack Restrepo MD [address] [facility] [address] [place] [address] PCP - Fernando COLIN 05/17/24 Linette Blankenship NP [address] [place] [address] Nurse Practitioner Family Medicine 09/07/22 Toi Jensen DPM [address] [facility] [address] [place] [address] Referring Physician Podiatry 06/05/24 Robin Hsu MD [address] [place] [address] [address] [place] [address] Referring Physician Vascular Surgery 09/15/24 documented as of this encounter
--- OUTSIDE RECORDS SUMMARY | 2024-10-29 18:40 | XMS_ITS | Clinical Summary ---
Author Organization [facility] Address [address] [facility], [address] [place] [address] Care Team Providers Care Senior It Security Analyst Name Role Phone Jack Restrepo MD Primary Care Provider [phone] Allergies Active Allergy Reactions Criticality Noted Date Comments Atorvastatin Nausea Only 08/05/2024 GI upset Lisinopril Cough 08/05/2024 Penicillins Dizziness or Vertigo 08/05/2024 Medications apixaban (ELIQUIS) 2.5 MG TABS tablet Take 1 tablet by mouth 2 times daily Active aspirin 81 MG EC tablet Take 1 tablet by mouth daily Active carvedilol (COREG) 3.125 MG tablet Take 1 tablet by mouth 2 times daily Active magnesium oxide (MAG-OX) 400 (240 Mg) MG tablet Take 1 tablet by mouth 2 times daily Active mometasone (ELOCON) 0.1 % cream Apply topically daily Apply topically daily. 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 Intended supply: 3 days. 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) 09/24/2024 8:10 AM EDT - 09/24/2024 11:59 PM EDT Hospital Encounter [facility] [address] [place] [id number] Robin Hsu MD Discharge Disposition: Home or Self Care 09/24/2024 7:55 AM EDT - 09/26/2024 11:59 PM EDT Hospital Encounter [facility] CT Scan [address] [place] [address] Robin Hsu MD Infrarenal abdominal aortic aneurysm (AAA) without rupture Discharge Disposition: Home or Self Care 09/24/2024 7:54 AM EDT - 09/26/2024 11:59 PM EDT Hospital Encounter [facility] Lab [address] [place] [id number] Robin Hsu MD 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) Discharge Disposition: Home or Self Care 08/27/2024 Telephone [facility] [place] [address] [facility] [address] [place] [address] Robin Hsu MD 08/14/2024 Telephone [facility] [place] [address] [facility] [address] [place] [address] Robin Hsu MD Pain 08/06/2024 10:30 AM EDT Office Visit [facility] Part [address] [place] [address] Robin Hsu MD Infrarenal abdominal aortic aneurysm (AAA) without rupture (Primary Dx); 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); 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); Raynaud's disease with gangrene (HCC) 08/05/2024 Abstract [facility]ASC[facility] Part of [address] [place] [address] Alyssia Abbott LPN from Last 3 Months Immunizations Immunization Administration Dates Next Due COVID-19, PFIZER PURPLE top, DILUTE for use, (age 12 y+), 30mcg/0.3mL 06/03/2020,05/12/2020 Influenza Virus Vaccine 01/15/2020,01/20/2015 Influenza, FLUZONE High Dose (age 65 y+), IM, Quadv, 0.7mL 01/23/2023,02/08/2022,01/19/2021 Influenza, FLUZONE High Dose , (age 65 y+), IM, Trivalent PF, 0.5mL 01/23/2024,12/26/2019,01/24/2018,2016 Pneumococcal, PCV-13, PREVNA R 13, (age 6w+), IM, 0.5mL 10/12/2014 Pneumococcal, PPSV23, PNEUMO VAX 23, (age 2y+), SC/IM, 0.5mL 04/05/2010 Family History Medical History Relation Name Comments COPD Father Heart Disease Father Diabetes Mother Heart Disease Mother Relation Name Status Comments Father Mother Social History Tobacco Use Types Packs/Day Years Used Date Smoking Tobacco: Never Smokeless Tobacco: Never Tobacco Cessation:Counseling Given: Not Answered Alcohol Use Standard Drinks/Week Comments Not Currently 0 (1 standard drink = 0.6 oz pur e alcohol) Comments Unknown Sex and Gender Information Value Date Recorded Sex Assigned at Not on file Legal Sex Female 4:42 AM EDT Gender Identity Not on file Sexual Orientation Not on file Last Filed Vital Signs Vital Sign Reading Time Taken Comments Blood Pressure 165/91 09/29/2024 2:06 PM EDT Pulse 63 09/29/2024 2:06 PM EDT Temperature 36.4 C (97.6 F) 09/29/2024 2:00 PM EDT Respiratory Rate 18 09/29/2024 2:00 PM EDT Oxygen Saturation - - Inhaled Oxygen Concentration - - Weight 62.6 kg (138 lb) 09/29/2024 2:00 PM EDT Height 160 cm (5' 3 ) 09/29/2024 2:00 PM EDT Body Mass Index 24.45 09/29/2024 2:00 PM EDT Plan of Treatment Upcoming Encounters Date Type Department Care Team (Late st Contact Info) Description 11/03/2024 11:45 AM EDT Office Visit [facility] Part of [address] [place] [address] Robin Hsu MD [address] [place] [address] [address] [place] [address] Follow up another month to investigate the toes (PAD) and AAA *CTA 09/24/2024* - Health Maintenance Due Date Last Done Comments Lipids 1951 Depression Screen 1953 DTaP/Tdap/Td vaccine (1 - Tdap) 1960 Shingles vaccine (1 of 2) 1991 DEXA (modify frequency per FRAX score) 1996 Respiratory Syncytial Virus (RSV) or age 60 yrs+ (1 - 1-dose 75+ series) 2016 Annual Wellness Visit (Medicare Advantage) 04/16/2024 COVID-19 Vaccine (2023- season) 2024 03/27/2024, 01/23/2023, 01/06/2022, Additional history exists Flu vaccine (#1) 11/14/2024 01/23/2024, 01/2023, 02/08/2022, Additional history exists Pneumococcal 50+ years Vaccine Completed 10/12/2014, 04/05/2010 Hepatitis A vaccine Aged Out No longe r eligible based on patient's age to complete this topic Hepatitis B vaccine Aged Out No longe r eligible based on patient's age to complete this topic Hib vaccine Aged Out No longer eligi ble based on patient's age to complete this topic Meningococcal (ACWY) vaccine Aged Out No longer eligible based on patient's age to complete this topic Meningococcal B vaccine Aged Out No l onger eligible based on patient's age to complete this topic Polio vaccine Aged Out No longer elig ible based on patient's age to complete this topic Procedures Procedure Name Priority Date/Time Associated Diagnosis Comments CTA ABDOMEN PELVIS W CONTRAST Routine 09/24/2024 9:55 AM EDT Infrarenal abdominal aortic aneurysm (AAA) without rupture VAS ARTERIAL COMPLETE PHYSIOLOGIC DOPPLER LOWER AT REST Routine 09/24/2024 8:39 AM EDT 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 Infrarenal abdominal aortic aneurysm measuring 4.5 x 4.9 cm. 2. Ectatic descending thoracic aorta measuring 3.8 cm. 3. Severe bilateral renal artery stenosis. 4. 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 5. Moderate left renal atrophy. 6. Mild fibrotic changes in the lung bases. 7. Mild fat containing periumbilical hernia. 8. 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 RECOMMENDATIONS: Pathology: Abdominal aortic aneurysm measuring 4.9 cm.Recommend CTA or MRA, as appropriate, in 12 months and referral to vascular specialist.Reference: Journal of Vascular Surgery 67.1 (2018): 2-77. J Am Almas Radiol 2013;10:789-794. Narrative 09/25/2024 11:43 AM EDT EXAMINATION: CTA OF THE ABDOMEN AND PELVIS WITH CONTRAST 09/24/2024 9:55 am: TECHNIQUE: CTA of the abdomen and pelvis was performed with the administration of intravenous contrast. Multiplanar reformatted images are provided for review. MIP images are provided for review. Automated exposure control, iterative reconstruction, and/or weight based adjustment of the mA/kV was utilized to reduce the radiation dose to as low as reasonably achievable. COMPARISON: None HISTORY: ORDERING SYSTEM PROVIDED HISTORY: Infrarenal abdominal aortic aneurysm (AAA) without rupture TECHNOLOGIST PROVIDED HISTORY: STAT Creatinine as needed:->Yes FINDINGS: CTA ABDOMEN: The infrarenal abdominal aorta is aneurysmal with the largest sagittal and coronal diameter of 4.5 x 4.9 cm. The descending thoracic aorta is ectatic measuring 3.8 cm in the region of the diaphragmatic hiatus. In addition to the aneurysm, the aorta demonstrates moderate calcified atherosclerotic plaque. The celiac and SMA are patent. There is severe bilateral renal artery stenosis. The lung bases demonstrate mild fibrotic changes worse in the subpleural spaces. The ascending thoracic aorta is mildly ectatic measuring 4 cm. The liver and gallbladder, pancreas and spleen, adrenals, right kidney and IVC appear stable. The left kidney demonstrates moderate atrophy. No bowel obstruction or perforation. No colitis or enteritis. No retroperitoneal lymphadenopathy or acute mesenteric findings. Mild fat-containing periumbilical hernia. The lumbar spine demonstrates moderate multilevel degenerative disc disease. No destructive changes or compression injury. CTA PELVIS: The right common iliac artery is aneurysmal measuring 2.3 cm. The internal and external iliac arteries as well as femoral circulation are patent with no evidence of aneurysm. The uterus, adnexa and urinary bladder appear unremarkable. No evidence of hernia or lymphadenopathy. The bilateral hips appear stable. Procedure Note Kayleen Muñoz MD - 09/25/2024 EXAMINATION: CTA OF THE ABDOMEN AND PELVIS WITH CONTRAST 09/24/2024 9:55 am: TECHNIQUE: CTA of the abdomen and pelvis was performed with the administration of intravenous contrast. Multiplanar reformatted images are provided forreview. MIP images are provided for review. Automated exposure control,iterative reconstruction, and/or weight based adjustment of the mA/kV was utilizedto reduce the radiation dose to as low as reasonably achievable. COMPARISON: None HISTORY: ORDERING SYSTEM PROVIDED HISTORY: Infrarenal abdominal aortic aneurysm(AAA) without rupture TECHNOLOGIST PROVIDED HISTORY: STAT Creatinine as needed:->Yes FINDINGS: CTA ABDOMEN: The infrarenal abdominal aorta is aneurysmal with the largest [place] coronal diameter of 4.5 x 4.9 cm. The descending thoracic aorta isectatic measuring 3.8 cm in the region of the diaphragmatic hiatus. In addition to the aneurysm, the aorta demonstrates moderate calcified atherosclerotic plaque. The celiac and SMA are patent. There is severe bilateral renal artery stenosis. The lung bases demonstrate mild fibrotic changes worse in the subpleural spaces. The ascending thoracic aorta is mildly ectatic measuring 4 cm. The liver and gallbladder, pancreas and spleen, adrenals, right kidneyand IVC appear stable. The left kidney demonstrates moderate atrophy. No bowel obstruction or perforation. No colitis or enteritis. No retroperitoneal lymphadenopathy or acute mesenteric findings. Mild fat-containing periumbilical hernia. The lumbar spine demonstrates moderate multilevel degenerative discdisease. No destructive changes or compression injury. CTA PELVIS: The right common iliac artery is aneurysmal measuring 2.3 cm. Theinternal and external iliac arteries as well as femoral circulation are patent withno evidence of aneurysm. The uterus, adnexa and urinary bladder appear unremarkable. No evidenceof hernia or lymphadenopathy. The bilateral hips appear stable. IMPRESSION: 1. Infrarenal abdominal aortic aneurysm measuring 4.5 x 4.9 cm. 2. Ectatic descending thoracic aorta measuring 3.8 cm. 3. Severe bilateral renal artery stenosis. 4. 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 5. Moderate left renal atrophy. 6. Mild fibrotic changes in the lung bases. 7. Mild fat containing periumbilical hernia. 8. 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 RECOMMENDATIONS: Pathology: Abdominal aortic aneurysm measuring 4.9 cm.Recommend CTA orMRA, as appropriate, in 12 months and referral to vascularspecialist.Reference: Journal of Vascular Surgery 67.1 (2018): 2-77. J Am Almas Radiol 2013;10:789-794. us Robin Hsu MD IMG CT ORDERABLES Final Re sult * Vascular lower arterial complete physiologic Doppler at rest (09/24/2024 8:39 AM EDT) Right arm BP 180 mmHg [facility] Right posterior tibial 196 mmHg [facility] Right dorsalis pedis BP 179 mmHg [facility] Right JESSE 1.08 [facility] Right toe pressure 118 mmHg [facility] Right TBI 0.65 [facility] Left arm BP 181 mmHg [facility] Left posterior tibial 196 mmHg [facility] Left dorsalis pedis BP 203 mmHg [facility]ACS Left JESSE 1.12 [facility]ACS Left toe pressure 137 mmHg [facility]ACS Left TBI 0.76 [facility] CV CPACS Anatomical Region Laterality Modality Vascular Ultraso und Narrative 09/24/2024 10:20 AM EDT Right: JESSE 1.08 is within the normal range. Left: JESSE of 1.12 is within the normal range. JESSE Right side findings: Normal resting JESSE. No change in waveform amplitude post- cold immersion from baseline. Right PVR waveforms: Normal - lower thigh, calf and ankle. Calf augmentation is present. Right PPGs: Consistent with SEVERE disease - 5th digit. Consistent with MODERATE disease - 1st digit and 2nd digit. Consistent with MILD disease - 3rd digit and 4th digit. The right posterior tibial artery and dorsalis pedis artery has multiphasic (normal) waveforms. Left side findings: Normal resting JESSE. Normal resting TBI. Left PVR waveforms: Calf augmentation is present. Normal - lower thigh, calf and ankle. Left PPGs: Consistent with MODERATE disease - 4th digit and 5th digit. Normal - 1st digit, 2nd digit and 3rd digit. The left posterior tibial artery and dorsalis pedis artery has multiphasic (normal) waveforms. Robin Hsu MD CV VASCULAR ORDERABLES Fin al Result * (ABNORMAL) Creatinine (09/24/2024 8:10 AM EDT) Creatinine 1.8(H) 0.50 - 0.90 mg/dL 09/24/2024 8:10 AM EDT [facility] Est, Glom Filt Rate 28(L) >60 mL/min/1.7 3m2 09/24/2024 8:10 AM EDT [facility] Comment: These results are not intended for use in patients <18 years of age. eGFR results are calculated without a race factor using the 2020 CKD-EPI equation. Careful clinical correlation is recommended, particularly when comparing to results calculated using previous equations. The CKD-EPI equation is less accurate in patients with extremes of muscle mass, extra-renal metabolism of creatine, excessive creatine ingestion, or following therapy that affects renal tubular secretion. 09/24/2024 8:10 AM EDT 09/24/2024 8:11 AM EDT Robin Hsu MD CHEMISTRY ORDERABLES Final Result [facility] [address] [place] [address], [facility] [phone] from Last 3 Months Insurance MEDICARE Care Teams Senior It Security Analyst Relationship Specialty Start Date End Date Jack Restrepo MD PCP - General 08/06/24
--- OUTSIDE RECORDS SUMMARY | 2024-10-29 18:40 | XMS_ITS | Encounter Summary ---
Author Organization [facility] Address [address] [place] [address] Care Team Providers Care Traffic Signal Repairer Name Role Phone Linette Blankenship BETTINA Unavailable [phone] Amanda Briones MD Unavailable [phone] Jack Rogel MD Primary Care Provider [phone] Toi Jensen DPM Unavailable [phone] Jack Rogel MD Unavailable [phone] Robin Hsu MD Unavailable [phone] Encounter Details Date Type Department Care Team (Late st Contact Info) Description 03/19/2024 Clinisync Result Encounter [facility] External Department Unsolicited Jack Roegl MD [address] [facility] [address] [place] [address] Social History Tobacco Use Types Packs/Day Years [...] Procedure Name Priority Date/Time Associated Diagnosis Comments SEGMENTAL BLOOD PRESSURE 03/19/2024 2:21 PM EST documented in this encounter Results * SEGMENTAL BLOOD PRESSURE (03/19/2024 2:21 PM EST) Anatomical Region Laterality Modality Radiographic Tami ging 03/19/2024 2:21 PM EST Narrative 03/19/2024 2:24 [place] [address] Vein Report Signed Patient: MADALYN HERNANDEZ MR#: [id number] : 1940 Acct:[id number] Age/Sex: 83 / F ADM Date: 03/19/24 Loc: [facility] Attending Dr: JACK ROGEL Ordering Physician: JACK ROGEL Date of Service: 03/19/24 Procedure(s): VC SEGMENTAL PRESSURES Accession Number(s): [id number] cc: JACK ROGEL [place] [id number] Patient Name: MADALYN HERNANDEZ MRN: [id number] date: 1940 Sex: F Assigned Patient Location: Current Patient Location: Accession/Order Number: [id number] Exam Date: 03/19/2024 13:03 Report Date: 03/19/2024 14:21 At the request of: JACK ROGEL Procedure: VC SEGMENTAL PRESSURES EXAM: VC SEGMENTAL PRESSURES. HISTORY: R09.89 Decreased pedal pulses. COMPARISON: None. TECHNIQUE: Resting ABIs and segmental limb pressures. FINDINGS: Right resting JESSE 1.02. Left resting JESSE 1.09. No pressure gradients were demonstrated. Waveforms are multiphasic. Normal toe brachial indices. VEIN/VC SEGMENTAL PRESSURES IMPRESSION: Normal resting ABIs, no pressure gradients, and normal toe brachial indices. Electronically authenticated by: Feliberto KISER Date: 03/19/2024 14:21 Dictated By: Feliberto Kiser M.D. Signed By: 03/19/241423 DD/ 20 TD/TT: Director Of Social Media Marketing: Procedure Note Radiology, Radiologist, MD - 03/19/2024 [place] [address] Vein Report Signed Patient: CORAZON HERNANDEZ#: [id number] : 1940cct:[id number] Age/Sex: 83 / FADM Date: 03/19/24 Loc: VC Attending Dr: JACK ROGEL Ordering Physician: JACK ROGEL Date of Service: 03/19/24 Procedure(s): VC SEGMENTAL PRESSURES Accession Number(s): [id number] cc: JACK ROGEL [place] [id number] Patient Name: MADALYN HERNANDEZ MRN: [id number] date: 1940 Sex: F Assigned Patient Location: VC Current Patient Location: VC Accession/Order Number: [id number] Exam Date: 03/19/2024 13:03 Report Date: 03/19/2024 14:21 At the request of: JACK ROGEL Procedure: VC SEGMENTAL PRESSURES EXAM: VC SEGMENTAL PRESSURES. HISTORY: R09.89 Decreased pedal pulses. COMPARISON: None. TECHNIQUE: Resting ABIs and segmental limb pressures. FINDINGS: Right resting JESSE 1.02. Left resting JESSE 1.09. No pressuregradients were demonstrated. Waveforms are multiphasic. Normal toe brachial indices. VEIN/VC SEGMENTAL PRESSURES IMPRESSION: Normal resting ABIs, no pressure gradients, and normal toe brachialindices. Electronically authenticated by: Feliberto KISER Date: 03/19/2024 14:21 Dictated By: Feliberto Kiser M.D. Signed By:03/19/241423 DD/ 20 TD/TT: Director Of Social Media Marketing: Jack Rogel MD IMG XR PROCEDURES Final Resu lt documented in this encounter Visit Diagnoses Not on filedocumented in this encounter Additional Health Concerns Assessment Noted Time PHQ-9 Depression Total Score: 2 05/14/19 24 1:00 PM EST documented as of this encounter Care Teams Traffic Signal Repairer Relationship Specialty Start Date End Date Amanda Briones MD [address] [facility] [place], [place] [address] PCP - Devoted 04/16/23 04/15/24 Jack Rogel MD [address] [place] [address] PCP - General Family Medicine 06/01/23 Jack Rogel MD [address] [place] [address] PCP - Fernando COLIN 05/17/24 Linette Blankenship NP [address] [facility] [place] [id number] Nurse Practitioner Family Medicine 09/07/22 Toi Jensen DPM [address] [facility] [address] [place] [address] Referring Physician Podiatry 06/05/24 Robin Hsu MD [address] [address] [address] [place] [address] Referring Physician Vascular Surgery 09/15/24 documented as of this encounter
--- OUTSIDE RECORDS SUMMARY | 2024-10-29 18:40 | XMS_ITS | Encounter Summary ---
Author Organization [facility] Address [address] [place] [address] Care Team Providers Care Registered Nurse Cardiovascular Icu Name Role Phone Linette Blankenship BETTINA Unavailable [phone] Amanda Briones MD Unavailable [phone] Jack Restrepo MD Primary Care Provider [phone] Toi Jensen DPM Unavailable [phone] Jack Restrepo MD Unavailable [phone] Robin Hsu MD Unavailable [phone] Encounter Details Date Type Department Care Team (Late st Contact Info) Description 06/01/2023 Orders Only [facility] [address] [place] [address] Mary Garner MD [address] [place], [place] [id number] Social History Tobacco Use Types Packs/Day Years [...] Procedure Name Priority Date/Time Associated Diagnosis Comments ECG 12-LEAD Routine 06/01/2023 9:[address] ABDOMEN & PELVIS WO Routine 06/01/2023 9:52 AM EST documented in this encounter Results * ECG 12 lead (06/01/2023 9:54 AM EST) us Mary Garner MD ECG ORDERABLES Final Result * CT ABDOMEN & PELVIS WO (06/01/2023 9:52 AM EST) Anatomical Region Laterality Modality Radiographic Tami ging us Mary Garner MD IMG XR PROCEDURES Final Result documented in this encounter Visit Diagnoses Not on filedocumented in this encounter Additional Health Concerns Assessment Noted Time PHQ-9 Depression Total Score: 2 05/14/19 24 1:00 PM EST documented as of this encounter Care Teams Registered Nurse Cardiovascular Icu Relationship Specialty Start Date End Date Amanda Briones MD [address] [place] [address] PCP - Devoted 04/16/23 04/15/24 Jack Restrepo MD [address] [facility] [address] [place] [address] PCP - General Family Medicine 06/01/23 Jack Restrepo MD [address] [facility] [address] [place] [address] PCP - Fernando COLIN 05/17/24 Linette Blankenship NP [address] [place] [address] Nurse Practitioner Family Medicine 09/07/22 Toi Jensen DPM [address] [facility] [address] [place] [address] Referring Physician Podiatry 06/05/24 Robin Hsu MD [address] [address] [address] [facility] [place] [address] Referring Physician Vascular Surgery 09/15/24 documented as of this encounter
--- OUTSIDE RECORDS SUMMARY | 2024-10-29 18:40 | XMS_ITS | Encounter Summary ---
Author Organization [facility] Address [address] [place] [address] Care Team Providers Care Display Designer Name Role Phone Linette Blankenship BETTINA Unavailable [phone] Amanda Briones MD Unavailable [phone] Jack Restrepo MD Primary Care Provider [phone] Toi Jensen DPM Unavailable [phone] Jack Restrepo MD Unavailable [phone] Robin Hsu MD Unavailable [phone] Encounter Details Date Type Department Care Team (Late st Contact Info) Description 06/04/2023 Abstract [facility] [address] [place] [address] Hunter Santiago MD [address] [place] [address] Social History Tobacco Use Types Packs/Day Years [...] documented as of this encounter Care Teams Display Designer Relationship Specialty Start Date End Date Amanda Briones MD [address] [facility] [place], [place] [address] PCP - Devoted 04/16/23 04/15/24 Jack Restrepo MD [address] [place] [address] PCP - General Family Medicine 06/01/23 Jack Restrepo MD [address] [facility] [address] [place] [address] PCP - Fernando COLIN 05/17/24 Linette Blankenship NP [address] [place] [address] Nurse Practitioner Family Medicine 09/07/22 Toi Jensen DPM [address] [facility] [address] [place] [address] Referring Physician Podiatry 06/05/24 Robin Hsu MD [address] [place] [address] [address] [place] [address] Referring Physician Vascular Surgery 09/15/24 documented as of this encounter
--- OUTSIDE RECORDS SUMMARY | 2024-10-29 18:40 | XMS_ITS | Clinical Summary ---
Author Organization [facility] Address [address] [place] [address] Care Team Providers Care Manager Of Pharmacy Name Role Phone Linette Blankenship BETTINA Unavailable [phone] Jack Restrepo MD Primary Care Provider [phone] Toi Jensen DPM Unavailable [phone] Jack Restrepo MD Unavailable [phone] Tenzin Hernandez MD Unavailable [phone] Allergies Active Allergy Reactions Criticality Noted Date Comments Amino Acids Other High 01/31/2022 Gabapentin Diarrhea 08/27/2024 Lisinopril Cough,Other 04/05/2021 Penicillins Other 04/05/2021 Dizzy and passed out Statins Other 09/08/2022 Medications Multiple Vitamin (MULTIVITAMIN ADULT PO) Multivitamin Active levothyroxine (Synthroid) 25 MCG tabletIndication s:Hypothyroidism (acquired) Take 1 tablet (25 mcg) by mouth Daily Take on an empty stomach 90 tablet 1 4 Active Additional Information Patient not taking.Reported on 09/03/2024 apixaban (Eliquis) 5 MG tabletIndication s:Paroxysmal atrial fibrillation (HCC) Take 1 tablet (5 mg) by mouth in the morning and 1 tablet (5 mg) before bedtime. 60 tablet 4 Active Additional Information Patient taking differently: 2.5 mgOral 2 times daily, Morning, Bedtime, Reported on 09/03/2024 glucose blood (Localize DirectTouch Ultra) test stripIndications :Type 2 diabetes mellitus with stage 3b chronic kidney disease, without long-term current use of insulin (HCC) Check daily and as needed. 50 strip 1 4 Active valsartan (Diovan) 40 MG tabletIndication s:Primary hypertension Take 1 tablet (40 mg) by mouth Daily 90 tablet 1 4 Active Additional Information Patient taking differently:40 mg Oral2 times daily, Morning, Bedtime, Reported on 09/03/2024 carvedilol (Coreg) 6.25 MG tabletIndication s:Paroxysmal atrial fibrillation (HCC) Take 1 tablet (6.25 mg) by mouth in the morning and 1 tablet (6.25 mg) in the evening. Take with meals. 5 Active Additional Information Patient taking differently: 3.25 mgOral 2 times daily with meals, Morning, Evening, Reported on 09/03/2024 spironolactone (Aldactone) 25 MG tablet Take 12.5 mg by mouth in the morning. 5 026 Active atorvastatin (Lipitor) 80 MG tablet Take 80 mg by mouth in the evening 5 Active sildenafil (Viagra) 50 MG tablet Take 50 mg by mouth in the morning and 50 mg before bedtime. 5 Active Hospital, Clinic, or Other Facility Administered Medication Ordered Dose Route Frequency Start Date End Date Status bupivacaine PF (Marcaine) 0.5 % injection 1 mLIndications:Arthri tis of right knee,Chondromalacia, patella, right 1 mL IJ Once PRN Procedure 10/07/2024 10/07/2024 Ended methylPREDNISolone acetate (DEPO-Medrol) injection 40 mgIndications:Arthri tis of right knee,Chondromalacia, patella, right 40 mg IX Once PRN Procedure 10/07/2024 10/07/2024 Ended Active Problems Problem Noted Date Diagnosed Date AAA (abdominal aortic aneurysm) 06/09/2024 Discoloration of skin of toe 06/09/2024 Raynauds disease 06/09/2024 Polypharmacy 04/23/2024 Myocardiopathy 04/04/2024 Overview (04/04/2024): Recurrent Takotsubo cardiomyopathy, EF 25%, 03/2024 Paroxysmal atrial fibrillation 06/05/2023 Acute arterial ischemic stro ke, multifocal, posterior circulation, right 04/03/2023 Overview (04/03/2023): MRI March 2023 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 Overview (04/03/2023): MRI 03/2023 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 1 06/04/2022 Overview (04/03/2023): MRI 03/2023 Pulmonary hypertension, mild 04/03/2023 Overview (04/03/2023): Echocardiogram March 2023 Hemiparesis of left nondomin ant side as late effect of cerebral infarction 04/03/2023 Chronic kidney disease, stage 3b 09/08/2022 Lichen sclerosus 09/08/2022 Mixed dyslipidemia 09/08/2022 Primary hypertension 09/08/2022 Slow transit constipation 09/08/2022 Type 2 diabetes mellitus wit h diabetic chronic kidney disease 09/08/2022 History of ischemic cardiomyopathy 09/08/2022 Coronary artery disease invo lving [place] coronary artery of [place] heart without angina pectoris 09/08/2022 Overview (04/03/2023): First diagonal branch with ostial stenosis, catheterization June 2018. Medical management. 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, left 04/12/2021 Resolved Problems Problem Noted Date Diagnosed Date Resolved Date Atypical squamous cells of u ndetermined significance (ASCUS) on Papanicolaou smear of cervix 03/25/2013 05/14/2023 Encounters Date Type Department Care Team Description 10/27/2024 Abstract [facility] [address] [facility] [address] [place] [address] Jack Restrepo MD 10/07/2024 8:45 AM EDT Office Visit [facility] [address] [place] [address] Best Jackson, PA Right leg pain (Primary Dx); Lumbar radiculopathy, right; Chronic pain of right knee; Arthritis of right knee; Chondromalacia, patella, right 10/07/2024 Bamboo flowsheet [facility] [address] [place] [address] Best Jackson PA 10/07/2024 Travel 09/25/2024 Abstract [facility] [address] [place] [address] Jack Restrepo MD 09/25/2024 Clinisync Result Encounter [facility] External Department Unsolicited Provider, Generic External Data 09/24/2024 Clinisync Result Encounter [facility] External Department Unsolicited Provider, Generic External Data 09/19/2024 1:15 PM EDT Procedure Visit [facility] [address] [place] [address] Phil Mishra MD Pain in both lower extremities (Primary Dx); Weakness of right lower extremity; Lumbar radiculopathy 09/19/2024 Travel 09/03/2024 2:30 PM EDT Office Visit [facility] [address] [place] [address] Jack Restrepo MD Encounter for Medicare annual wellness exam (Primary Dx); Advance directive discussed with patient; Encounter for screening for other disorder; Screening for alcohol problem; Paroxysmal atrial fibrillation (HCC); Hemiparesis of left nondominant side as late effect of cerebral infarction (HCC); 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 ; Pulmonary hypertension, mild (HCC); Primary hypertension ; Ischemic cardiomyopathy ; Coronary artery disease involving [place] coronary artery of [place] heart without angina pectoris ; Pararenal abdominal aortic aneurysm (AAA) without rupture; Chronic kidney disease, stage 3b (CMS-HCC); Type 2 diabetes mellitus with stage 3b chronic kidney disease, without long-term current use of insulin (HCC); Mixed dyslipidemia 09/03/2024 Travel 09/03/2024 Telephone [facility] [address] [place] [address] Phil Mishra MD 08/28/2024 Telephone [facility] [address] [place] [address] Jr. Osbaldo Barajas, Referral 08/27/2024 Telephone [facility] [address] [facility] 100 [place] [address] Jack Restrepo MD 08/19/2024 Orders Only [facility] [address] [facility] [address] [place] [address] Jack Restrepo MD 08/18/2024 Telephone [facility] [address] [facility] [address] [place] [address] Walter July, [place] Care Coordination 08/14/2024 Telephone [facility] [address] [facility] [address] [place] [address] Walter July, [place] Care Coordination from Last 3 Months Immunizations Immunization Administration Dates Next Due Influenza, High Dose Seasona l, Preservative Free 01/23/2024,12/26/2019,01/24/2018,01/25 Influenza, High-dose Seasona l, Quadrivalent, Preservative Free 01/23/2023,02/08/2022,01/19/2021 Influenza, injectable, quadrivalent 01/20/2015 Influenza, seasonal, injectable 01/15/2020 Pneumococcal Conjugate PCV 13 10/12/2014 Pneumococcal Polysaccharide PPSV23 04/05/2010 Family History Medical History Relation Name Comments COPD Father Heart disease Father Diabetes Mother Heart disease Mother Diabetes Sibling Heart disease Sibling Relation Name Status Comments Father Mother Sibling Alive Social History Tobacco Use Types Packs/Day Years Used Date Smoking Tobacco: Never Passive Smoke Exposure: Past Smokeless Tobacco: Never Tobacco Cessation:Counseling Given: Yes Alcohol Use Standard Drinks/Week Comments Not Currently [...] Sign Reading Time Taken Comments Blood Pressure 130/70 09/03/2024 3:16 PM EDT Pulse 97 09/03/2024 3:16 PM EDT Temperature 36.3 C (97.3 F) 11/29/2022 10:04 AM EDT Respiratory Rate 18 05/29/2024 10:55 AM EST Oxygen Saturation 99% 09/03/2024 3:16 PM EDT Inhaled Oxygen Concentration - - Weight 65.3 kg (144 lb) 09/03/2024 3:16 PM EDT Height 160 cm (5' 3 ) 09/03/2024 3:16 PM EDT Body Mass Index 25.51 09/03/2024 3:16 PM EDT Plan of Treatment Health Maintenance Due Date Last Done Comments Diabetes: Hemoglobin A1C 09/01/2024 024, 03/16/2023, 11/29/2022, Additional history exists Influenza Vaccine (#1) 2024 , 01/23/2023, 02/08/2022, Additional history exists Diabetes: Urine Protein Screening 03/04/2025 024, 11/29/2022 Diabetes: Retinopathy Screening 03/19/2025 Medicare Annual Wellness (AWV) 09/03/2025 0 09/03/2024, 05/14/2023, 05/17/2022, Additional history exists Pneumococcal Vaccine: 65+ Years Completed 5, 04/05/2010 Procedures Procedure Name Priority Date/Time Associated Diagnosis Comments NV ARTHROCENTESIS ASPIR&/INJ MAJOR JT/BURSA W/O US Routine 10/07/2024 9:33 AM EDT Arthritis of right knee Chondromalacia, patella, right CTA ABDOMEN PELVIS W CONTRAST 09/25/2024 11:43 AM EDT MHPT CREATININE W/GFR Routine 09/24/2024 8:10 AM EDT MICROALBUMIN / CREATININE URINE RATIO Routine 03/04/2024 1:56 PM EST Chronic kidney disease, stage 3b ([facility]) Type 2 diabetes mellitus with stage 3b chronic kidney disease, without long-term current use of insulin (HCC) Primary hypertension HEMOGLOBIN A1C Routine 03/04/2024 1:56 PM EST Chronic kidney disease, stage 3b ([facility]-H[facility]) Type 2 diabetes mellitus with stage 3b chronic kidney disease, without long-term current use of insulin (HCC) DIABETIC RETINOPATHY SCREENING - OU - BOTH EYES Routine 03/19/2023 8:06 AM EST from Last 3 Months or Most Recently Relevant to Health Maintenance Results * NV ARTHROCENTESIS ASPIR&/INJ MAJOR JT/BURSA W/O US (10/07/2024 9:33 AM EDT) Narrative Best Jackson PA - 10/07/2024 9:33 AM EDT HAYLEE Raines 10/07/2024 9:50 AM L Inj/Asp: R knee on 10/07/2024 9:33 AM Indications: pain Details: 22 G needle, anterolateral approach Medications: 40 mg methylPREDNISolone acetate 40 MG/ML; 1 mL bupivacaine PF 0.5 % Outcome: tolerated well, no immediate complications E UTILIZING ASEPTIC TECHNIQUE PT GIVEN INJECTION IN RIGHT KNEE, NEUROVASC INTACT S/P INJ, TOLERATED WELL Procedure, treatment alternatives, risks and benefits explained, specific risks discussed. Consent was given by the patient. us Best LEACH IN CLINIC/BEDSIDE ORDERABLES Final Result * CTA ABDOMEN PELVIS W CONTRAST (09/25/2024 11:43 AM EDT) Anatomical Region Laterality Modality Other 09/25/2024 11:4 3 AM EDT Narrative 09/25/2024 11:48 AM EDT EXAMINATION: CTA OF THE ABDOMEN [...] (2018): 2-77. J Am Almas Radiol 2013;10:789-794. Interpreted by: Kayleen Muñoz MD Signed by: Kayleen Muñoz MD 09/25/24 Final result Procedure Note Radiology, Radiologist, - 09/25/2024 EXAMINATION: CTA OF THE ABDOMEN [...] (2018): 2-77. J Am Almas Radiol 2013;10:789-794. Interpreted by: Kayleen Muñoz MD Signed by: Kayleen Muñoz MD 09/25/24 Final result Generic External Data Provider [facility] Final Result * (ABNORMAL) MHPT CREATININE W/GFR (09/24/2024 8:10 AM EDT) MHPT CREATININE 1.8(H) 0.50 - 0.90 mg/dL MHPT MHPT EGFR 28(L) >60 mL/min/1.7 3m2 MHPT Comment: These results are not intended for [...] 8:10 AM EDT 09/24/2024 8:11 AM EDT Narrative [facility] - 09/24/2024 9:07 AM EDT Original Ordering Provider: TENZIN HERNANDEZ Generic External Data Provider [facility]al Result [facility] * Microalbumin / creatinine, urine ratio (03/04/2024 1:56 PM EST) CREATININE, RANDOM URINE 49 20 - 275 mg/dL [facility] ALBUMIN, URINE 0.8 See Note: mg/dL [facility] Comment: Reference Range: Reference Range Not established ALBUMIN/CREATININE RATIO, RANDOM URINE 16 <30 mg/g creat [facility] Comment: The ADA defines abnormalities in albumin excretion as follows: Albuminuria Category Result (mg/g creatinine) Normal to Mildly increased <30 Moderately increased 30-299 Severely increased > OR = 300 The ADA recommends that at least two of three specimens collected within a 3-6 month period be abnormal before considering a patient to be within a diagnostic category. Urine Urine specimen obtained by clean catch procedure / Unknown 03/04/2024 1:56 PM EST 03/04/2024 1:56 PM EST Narrative Resulting Agency Comment Performing Organization Information Site ID: QPT Name: [facility] Address: [address] [place] [address], [address] [place] [id number] Director: César Dunn MD Jack Restrepo MD LAB URINE ORDERABLES Final R esult Performing Organization Address City/[facility]/ZIP Co de Phone Number [facility] * (ABNORMAL) Hemoglobin A1c (03/04/2024 1:56 PM EST) Hemoglobin A1C 6.4(H) <5.7 % of total Hgb [facility] Comment: For someone without known diabetes, a [...] A1c for diagnosis of diabetes for children. Blood Venous blood specimen / Unknown 03/04/2024 1:56 PM EST 03/04/2024 1:56 PM EST Narrative Resulting Agency Comment Performing Organization Information Site ID: QPT Name: [facility] Address: [address] [place] [address], [address] [place] [id number] Director: César Dunn MD Jack Restrepo MD LAB BLOOD ORDERABLES Final R esult Performing Organization Address [facility] de Phone Number [facility] * Diabetic Retinopathy Screening - OU - Both Eyes (03/19/2023 8:06 AM EST) Anatomical Region Laterality Modality Head Other Amanda Briones MD OPHTH PHOTOGRAPHY Final Resul t from Last 3 Months or Most Recently Relevant to Health Maintenance Insurance [employer] Advance Directives Documents on File Type Date Recorded Patient Chief Wharfinger Expl anation Power of Guard Supervisor 05/28/2023 10:54 AM 2022 Power Of Guard Supervisor Care Teams Manager Of Pharmacy Relationship Specialty Start Date End Date Jack Restrepo MD [address] [facility] [address] [place] [address] PCP - General Family Medicine 06/01/23 Jack Restrepo MD [address] [facility] [address] [place] [address] PCP - Fernando COLIN 05/17/24 Linette Blankenship NP [address] [place] [address] Nurse Practitioner Family Medicine 09/07/22 Toi Jensen DPM [address] [facility] [address] [place] [address] Referring Physician Podiatry 06/05/24 [place] [address] [place] [address] [address] [place] [address] Referring Physician Vascular Surgery 09/15/24
--- OUTSIDE RECORDS SUMMARY | 2024-10-29 18:40 | XMS_ITS | Encounter Summary ---
Author Organization [facility] Address [address] [place] [address] Phone Care Team Providers Care Tank Truck Operator Name Role Phone Jack Restrepo MD Primary Care Provider + [phone] Jack Restrepo MD Primary Care Provider + [phone] Encounter Details Date Type Department Care Team (Late st Contact Info) Description 04/02/2024 Scanned Document [facility] [address] [place] [phone] Scanning, Generic Provider Social History Tobacco Use [...] Description 12/16/2024 2:30 PM EDT Office Visit [facility] Medical Office Building [address] [phone] Eloise Galicai MD 7 [facility] 130 [place] [address] 03/02/2025 1:40 PM EST Telemedicine [facility] [address] Jovanny [address] [place] [phone] Emma Hall, PharmD [address] [place] [address] documented as of this encounter Visit Diagnoses Not on filedocumented in this encounter Additional Health Concerns Assessment Noted Time A fall risk assessment has been complete d for the patient 07/02/2023 1:17 PM EDT documented as of this encounter Care Teams Tank Truck Operator Relationship Specialty Start Date End Date Jack Restrepo MD PCP - General Family Medicine 07/02/23 05/18/24 Jack Restrepo MD [address] [place] [address] 100 [place] [address] PCP - General Family Medicine 05/19/24 documented as of this encounter
--- OUTSIDE RECORDS SUMMARY | 2024-10-29 18:40 | XMS_ITS | Encounter Summary ---
Author Organization [facility] Address [address] [place] [address] Care Team Providers Care Contract Designer Name Role Phone Amanda Briones MD Primary Care Provider [phone] Linette Blankenship NP Unavailable [phone] Amanda Briones MD Unavailable [phone] Raoul Bueno GAS DERRICK OPERATOR Unavailable [phone] Raoul Bueno LPN Unavailable [phone] Amanda Briones MD Unavailable [phone] Jack Restrepo MD Primary Care Provider + [phone] Toi Jensen DPM Unavailable [phone] Jack Restrepo MD Unavailable [phone] Robin Hsu MD Unavailable [phone] Encounter Details Date Type Department Care Team (Late st Contact Info) Description 10/17/2022 Orders Only [facility] [address] [place] [address] Amanda Briones MD [address] [place] [address] Social History Tobacco Use Types Packs/Day Years Used Date Smoking Tobacco: Never Passive Smoke Exposure: Past Alcohol Use Standard Drinks/Week Comments Not Currently [...] on filedocumented in this encounter Care Teams Contract Designer Relationship Specialty Start Date End Date Amanda Briones MD [address] [place] [address] PCP - General Family Medicine 09/07/22 05/31/23 Amanda Briones MD [address] [place] [address] PCP - Fernando COLIN 09/14/22 04/15/23 Amanda Briones MD [address] [place] [address] PCP - Devoted 04/16/23 04/15/24 Jack Restrepo MD [address] [address] PCP - General Family Medicine 06/01/23 Jack Restrepo MD [address] [address] (Fax) PCP - Fernando COLIN 05/17/24 Linette Blankenship NP [address] [place] [address] Nurse Practitioner Family Medicine 09/07/22 Raoul Bueno LPN [address] [place] [address] Licensed Practical Nurse Family Medicine 11/29/2211/29 Raoul Bueno LPN [address] [place] [address] Licensed Practical Nurse Family Medicine 12/04/2202/14 Toi Jensen DPM 112 [facility] [address] [place] [address] Referring Physician Podiatry 06/05/24 Robin Hsu MD [address] [address] [address] [place] [address] Referring Physician Vascular Surgery 09/15/24 documented as of this encounter
--- OUTSIDE RECORDS SUMMARY | 2024-10-29 18:40 | XMS_ITS | Encounter Summary ---
Author Organization [facility] Address [address] [place] [address] Care Team Providers Care Shirt Sewer Name Role Phone Linette Blankenship BETTINA Unavailable [phone] Amanda Briones MD Unavailable [phone] Jack Restrepo MD Primary Care Provider [phone] Toi Jensen DPM Unavailable [phone] Jack Restrepo MD Unavailable [phone] Robin Hsu MD Unavailable [phone] Encounter Details Date Type Department Care Team (Late st Contact Info) Description 06/01/2023 Abstract [facility] [address] [place] [address] Mary Garner MD [address] [place] [id number] Social History Tobacco Use Types Packs/Day Years [...] documented as of this encounter Care Teams Shirt Sewer Relationship Specialty Start Date End Date Amanda Briones MD [address] [facility] [place] [address] PCP - Devoted 04/16/23 04/15/24 Jack Restrepo MD 112 [facility] 100 [place] [address] PCP - General Family Medicine 06/01/23 Jack Restrepo MD 112 [facility] 100 [place] [address] PCP - Fernando COLIN 05/17/24 Linette Blankenship NP [address] [place] [address] Nurse Practitioner Family Medicine 09/07/22 Toi Jensen DPM 112 [facility] 120 [place] [address] Referring Physician Podiatry 06/05/24 [place] [address] [place] [address] [address] [place] [address] Referring Physician Vascular Surgery 09/15/24 documented as of this encounter
--- OUTSIDE RECORDS SUMMARY | 2024-10-29 18:40 | XMS_ITS | Encounter Summary ---
Author Organization [facility] Address [address] [place] [address] Care Team Providers Care Property Staff Accountant Name Role Phone Amanda Briones MD Primary Care Provider [phone] Linette Blankenship NP Unavailable [phone] Amanda Briones MD Unavailable [phone] Raoul Bueno REAMING PRESS OPERATOR Unavailable [phone] Raoul Bueno LPN Unavailable [phone] Amanda Briones MD Unavailable [phone] Jack Restrepo MD Primary Care Provider + [phone] Toi Jensen DPM Unavailable [phone] Jack Restrepo MD Unavailable [phone] Robin Hsu MD Unavailable [phone] Encounter Details Date Type Department Care Team (Late st Contact Info) Description 09/13/2022 Abstract [facility] [address] [place] [address] Amanda Briones MD [address] [place] [address] Social History Tobacco Use Types [...] on filedocumented in this encounter Care Teams Property Staff Accountant Relationship Specialty Start Date End Date Amanda Briones MD 1479 [facility] [place] [address] PCP - General Family Medicine 09/07/22 05/31/23 Amanda Briones MD 1479 [facility] [place] [address] PCP - Fernando COLIN 09/14/22 04/15/23 Amanda Briones MD [address] [place] [address] PCP - Devoted 04/16/23 04/15/24 Jack Restrepo MD 112 [facility] [address] [place] [address] PCP - General Family Medicine 06/01/23 Jack Restrepo MD [address] [address] (Fax) PCP - Fernando COLIN 05/17/24 Linette Blankenship NP 1479 [facility] [place] [address] Nurse Practitioner Family Medicine 09/07/22 Raoul Bueno LPN [address] [place] [address] Licensed Practical Nurse Family Medicine 11/29/2211/29 Raoul Bueno LPN [address] [place] [address] Licensed Practical Nurse Family Medicine 12/04/2202/14 Toi Jensen DPM 112 [facility] [address] [place] [address] Referring Physician Podiatry 06/05/24 Robin Hsu MD [address] [address] [address] [place] [address] Referring Physician Vascular Surgery 09/15/24 documented as of this encounter
--- OUTSIDE RECORDS SUMMARY | 2024-10-29 18:40 | XMS_ITS | Clinical Summary ---
Author Organization [facility] Address [address] [place] [address] Phone Care Team Providers Care Social Welfare Research Worker Name Role Phone Jack Restrepo MD Primary Care Provider [phone] Allergies Active Allergy Reactions Criticality Noted Date Comments Atorvastatin Myalgia Medium 05/19/2024 Lisinopril Other,Cough,Unknown Low 04/05/2021 Penicillins Diarrhea Low 04/05/2021 Dizzy and passed out Whmnrwe-Dwg-Wmr Reductase Inhibitors Other Medium 09/08/2022 Medications aspirin 81 mg EC tablet Take 1 tablet (81 mg) by mouth once daily. Active mometasone (Elocon) 0.1 % cream Apply 1 Application topically once daily. Active magnesium oxide (Mag-Ox) 400 mg tabletIndications: Paroxysmal atrial fibrillation (Multi) Take 1 tablet (400 mg) by mouth 2 times a day. 180 tablet 3 05/19/19 25 026 Active valsartan (Diovan) 40 mg tabletIndications: Primary hypertension Take 1 tablet (40 mg) by mouth 2 times a day. 180 tablet 1 07/12/19 25 025 Active carvedilol (Coreg) 3.125 mg tabletIndications: Primary hypertension Take 1 tablet (3.125 mg) by mouth 2 times a day. 180 tablet 1 07/12/19 25 025 Active rosuvastatin (Crestor) 5 mg tabletIndications: Mixed hyperlipidemia Take 1 tablet (5 mg) by mouth once daily. 90 tablet 1 07/12/19 25 025 Active Additional Information Patient not taking.Reported on 07/28/2024 spironolactone (Aldactone) 25 mg tabletIndications: Acute on chronic left systolic heart failure Take 0.5 tablets (12.5 mg) by mouth once daily. 45 tablet 1 07/12/19 25 025 Active apixaban (Eliquis) 2.5 mg tabletIndications: Paroxysmal atrial fibrillation (Multi) Take 1 tablet (2.5 mg) by mouth 2 times a day. 180 tablet 3 08/15/2024 8:51 AM EDT 08/14/19 25 Active Active Problems Problem Noted Date Diagnosed Date BMI 24.0-24.9, adult 07/11/2024 Aortic aneurysm 07/11/2024 Stage 3b chronic kidney disease (Multi) 07/12/19 25 Anticoagulated 07/11/2024 Hospital discharge follow-up 05/19/2024 Mixed hyperlipidemia 05/19/2024 Acute on chronic left systolic heart failure 06/2024 Discoloration of skin of foot 05/19/2024 Type 2 IL (myocardial infarction) (Multi) 2024 History of IL (myocardial infarction) 07/02/2023 STORMY inhibitor intolerance 07/02/2023 BMI 25.0-25.9,adult 07/02/2023 Never smoked tobacco 07/02/2023 Medication course changed 07/02/2023 Paroxysmal atrial fibrillation (Multi) Assessment & Plan (09/01/2024 2:26 PM EDT): Johanny is doing well on anticoagulation based on weight renal function and age no changes at this time due to pt concomitantly being on low dose Asprin will follow up sooner in 6 months. Counseled the patient to always take the aspirin with food or milk to avoid the potential of gastrointestinal bleed. Assessment & Plan (07/28/2024 3:12 PM EDT): Johanny is tolerating Eliquis well with no reported adverse effects. Counseled pt on relevant adverse affects and provided her with PharmD phone number if any additional questions come up. Will continue her on the same dosing for Eliquis. Pulmonary hypertension, mild (Multi) 04/03/2023 Overview (07/02/2023): Echocardiogram March 2023 Acute arterial ischemic stro ke, multifocal, posterior circulation, right (Multi) 04/03/2023 Overview (07/02/2023): MRI March 2023 Primary hypertension 09/08/2022 Encounters Date Type Department Care Team Description 09/01/2024 1:40 PM EDT Telemedicine [facility] [address] [place] [address] Emma Hall, PharmD Paroxysmal atrial fibrillation (Multi); Anticoagulated 08/13/2024 [facility] [address] [place] [phone] Emma Hall, PharmD Paroxysmal atrial fibrillation (Multi) 08/08/2024 Refill [facility] 703 [facility] 250 [place] [address] Elizabeth Sanchez, PAPER CONE MAKER Paroxysmal atrial fibrillation (Multi) 08/04/2024 Telephone [facility] [address] [place] [phone] Emma Hall, PharmD Follow-up ( PAP Approval) from Last 3 Months Immunizations Immunization Administration Dates Next Due Flu vaccine, quadrivalent, h igh-dose, preservative free, age 65y+ (FLUZONE) 01/23/2023,02/08/2022,01/19/2021 Flu vaccine, trivalent, pres ervative free, HIGH-DOSE, age 65y+ (Fluzone) 01/23/2024,12/26/2019,01/24/2018,01/25 Influenza, injectable, quadrivalent 01/20/2015 Influenza, seasonal, injectable 01/15/2020 Pneumococcal conjugate vacci ne, 13-valent (PREVNAR 13) 10/12/2014 Pneumococcal polysaccharide vaccine, 23-valent, age 2 years and older (PNEUMOVAX 23) 04/05/2010 Family History Medical History Relation Name Comments Diabetes type II Brother bypass heart Brother Coronary artery disease Father Diabetes type II Mother Aneurysm Sister Relation Name Status Comments Brother Father Mother Sister Social History Tobacco Use Types Packs/Day Years [...] Sign Reading Time Taken Comments Blood Pressure 132/82 07/11/2024 2:19 PM EDT Pulse 68 07/11/2024 2:19 PM EDT Temperature - - Respiratory Rate - - Oxygen Saturation - - Inhaled Oxygen Concentration - - Weight 62.6 kg (138 lb) 07/11/2024 2:19 PM EDT Height 160 cm (5' 3 ) 07/11/2024 2:19 PM EDT Body Mass Index 24.45 07/11/2024 2:19 PM EDT Plan of Treatment Upcoming Encounters Date Type Department Care Team (Late st Contact Info) Description 12/16/2024 2:30 PM EDT Office Visit [facility] Medical Office Building [address] [address] Eloise Galicia MD [address] [address] 03/02/2025 1:40 PM EST Telemedicine [facility] [address] [place] [phone] Emma Hall PharmD [address] [facility] [address] [place] [address] Health Maintenance Due Date Last Done Comments Bone Density Scan 1940 Creatinine Level 1940 Lipid Panel 1940 Medicare Annual Wellness Visit (AWV) 1940 Potassium Level 1940 Diabetes Screening 1959 DTaP/Tdap/Td Vaccines (1 - Tdap) 1963 Zoster Vaccines (1 of 2) 1991 RSV High Risk: (Elderly (60+) or Population) (1 - 1-dose 75+ series) 2016 COVID-19 Vaccine (4 - season) 2024 03/27/2024, 01/23/2023, 01/06/2022 Influenza Vaccine (#1) 2024 , 01/23/2023, 02/08/2022, Additional history exists CKD: Urine Protein Screening 03/04/2025 03/04/2024 Echocardiogram 05/19/2025 05/19/2024, 06/2024, 04/03/2024, Additional history exists Pneumococcal Vaccine Completed 10/12/2014, 04/05/20 10 HIB Vaccines Aged Out No longer eligi ble based on patient's age to complete this topic HPV Vaccines Aged Out No longer eligi ble based on patient's age to complete this topic Hepatitis A Vaccines Aged Out No long er eligible based on patient's age to complete this topic Hepatitis B Vaccines Aged Out No long er eligible based on patient's age to complete this topic IPV Vaccines Aged Out No longer eligi ble based on patient's age to complete this topic Meningococcal Vaccine Aged Out No mateo yee eligible based on patient's age to complete this topic Rotavirus Vaccines Aged Out No longer eligible based on patient's age to complete this topic Procedures Procedure Name Priority Date/Time Associated Diagnosis Comments ECHOCARDIOGRAM 05/19/2024 3:36 PM EST from Last 3 Months or Most Recently Relevant to Health Maintenance Results * Echocardiogram (05/19/2024 3:36 PM EST) 05/19/2024 3:36 PM EST [facility] - 05/19/2024 5:02 PM EST [facility] Main [address] [address] Echocardiogram Signed Patient: Johanny Hernandez MR#: [id number] : 1940 Acct:[id number] Age/Sex: 84 / F ADM Date: 05/19/24 Loc: Room: Type: REG CLI Attending Dr: Eloise Galicia MD Ordering Provider: Eloise Galicia MD Date of Service: 05/19/24/ [facility] echo limited: HX: OF IL, CHF Copies to: MD Esther Simpson MD Ordering Physician: Eloise Galicia Height: 63 in Weight: 142 lb Performed By: Cecile Beckford RDCS BSA: 1.7 m2 BP: 126/60 mmHg HR: 56 Reason For Study: rule out thrombus.HX: of IL, CHF History: Takotsubo Syndrome. DM. HTN. Aflutter. HLD. CKD. CAD. Abdominal Aortic Aneurysm. CVA. IL. Family history of CAD. Interpretation Summary The [...] max P.9 mmHg TR max P.5 mmHg Transcribed By: SCV Performed At: 05/19/24 1536 Signed By: Esther Taylor MD 05/19/24 1701 us Eloise Galicia MD CV ECHO PROCEDURES Final Result [facility] [address] [place] [address], from Last 3 Months or Most Recently Relevant to Health Maintenance Insurance [place] [address] Care Teams Social Welfare Research Worker Relationship Specialty Start Date End Date Jack Restrepo MD [address] [address] PCP - General Family Medicine 05/19/24
--- OUTSIDE RECORDS SUMMARY | 2024-10-29 18:40 | XMS_ITS | Encounter Summary ---
Author Organization [facility] Address [address] [place] [address] Care Team Providers Care Executive Business Coach Name Role Phone Amanda Briones MD Primary Care Provider [phone] Linette Blankenship NP Unavailable [phone] Amanda Briones MD Unavailable [phone] Jack Restrepo MD Primary Care Provider [phone] Toi Jensen DPM Unavailable [phone] Jack Restrepo MD Unavailable [phone] Robin Hsu MD Unavailable [phone] Encounter Details Date Type Department Care Team (Late st Contact Info) Description 05/09/2023 Orders Only [facility] [address] [facility] [place] [address] Jack Restrepo MD 112 [facility] [address] [place] [address] (Fax) Social History Tobacco Use Types Packs/Day Years [...] documented as of this encounter Care Teams Executive Business Coach Relationship Specialty Start Date End Date Amanda Briones MD [address] [place] [address] PCP - General Family Medicine 09/07/22 05/31/23 Amanda Briones MD [address] [place] [address] PCP - Devoted 04/16/23 04/15/24 Jack Restrepo MD 112 [facility] 100 [place] [address] PCP - General Family Medicine 06/01/23 Jack Restrepo MD 112 [facility] [address] [place] [address] PCP - Fernando COLIN 05/17/24 Linette Blankenship NP [address] [place] [address] Nurse Practitioner Family Medicine 09/07/22 Toi Jensen DPM 112 [facility] [address] [place] [address] Referring Physician Podiatry 06/05/24 Robin Hsu MD [address] [address] [address] [place] [address] Referring Physician Vascular Surgery 09/15/24 documented as of this encounter
--- OUTSIDE RECORDS SUMMARY | 2024-10-29 18:40 | XMS_ITS | Encounter Summary ---
Author Organization [facility] Address [address] [place] [address] Care Team Providers Care Erp Consultant Name Role Phone Linette Blankenship BETTINA Unavailable [phone] Amanda Briones MD Unavailable [phone] Jack Restrepo MD Primary Care Provider [phone] Toi Jensen DPM Unavailable [phone] Jack Restrepo MD Unavailable [phone] Robin Hsu MD Unavailable [phone] Encounter Details Date Type Department Care Team (Late st Contact Info) Description 08/31/2023 Orders Only [facility] [address] [facility] [place] [address] Jack Restrepo MD 112 [facility] 100 [place] [address] Social History Tobacco Use Types Packs/Day Years [...] Date/Time Associated Diagnosis Comments ECG 12-LEAD Routine 08/31/2023 8:57 AM EDT documented in this encounter Results * ECG 12 lead (08/31/2023 8:57 AM EDT) Jack Restrepo MD ECG ORDERABLES Final Result documented in this encounter Visit Diagnoses Not on filedocumented in this encounter Additional Health Concerns Assessment Noted Time PHQ-9 Depression Total Score: 2 05/14/19 24 1:00 PM EST documented as of this encounter Care Teams Erp Consultant Relationship Specialty Start Date End Date Amanda Briones MD [address] [place] [address] PCP - Devoted 04/16/23 04/15/24 Jack Restrepo MD 112 [facility] 100 [place] [address] PCP - General Family Medicine 06/01/23 Jack Restrepo MD [address] [address] PCP - Fernando COLIN 05/17/24 Linette Blankenship NP [address] [place] [address] Nurse Practitioner Family Medicine 09/07/22 Toi Jensen DPM 112 [facility] 120 [place] [address] Referring Physician Podiatry 06/05/24 Robin Hsu MD [address] [address] [address] [place] [address] Referring Physician Vascular Surgery 09/15/24 documented as of this encounter
--- NOTE | 2024-10-29 18:47 | ECG_ITS ---
[facility] Test Date: 2024-10-29 Pat Name: MADALYN FORBES Department: Room: - Gender: Female Hotel Manager: : 1940 Requested By: [id number] Order Number: [id number] Reading MD: RASHID THOMPSON Measurements Intervals Baring Rate: 61 P: 38 MD: 152 QRS: -25 QRSD: 110 T: 235 QT: 476 QTc: 479 Interpretive Statements 1100 Sinus rhythm 1102 Sinus arrhythmia Septal infarct age indeterminate cannot be excluded T wave inversion, possible ischemia 5234 Left ventricular hypertrophy with repolarization abnormality 9150 abnormal ECG Compared to ECG 04/02/2024 18:35:51 Left-axis deviation no longer present Electronically Signed On 10-31-2024 9:54:04 EDT by RASHID THOMPSON
--- NOTE | 2024-10-29 18:48 | CT_ITS ---
[address] [address] Patient Name: MADALYN FORBES MRN: [id number] date: 1940 Sex: F Assigned Patient Location: ED.MAIN Current Patient Location: ED.MAIN Accession/Order Number: [id number] Exam Date: 10/29/2024 20:08 Report Date: 10/29/2024 20:13 At the request of: WILMER BORJA NP Procedure: CT head/brain wo con CT head/brain wo con 10/29/2024 7:49 PM SIGNS AND SYMPTOMS: headache, nausea, on ASA and eliquis TECHNIQUE:Multi-detector CT axial slices of the brain were obtained without IV contrast. CT was performed with one or more of the following dose reduction techniques: Automated exposure control, adjustment of the mA and/or kV according to patient size, or use of iterative reconstruction technique. COMPARISON: 03/21/2023 FINDINGS: There is no shift of the midline structures, acute intracranial bleeding, mass effects, or evidence of acute ischemia. There is age-related cortical atrophy. There is periventricular white matter hypoattenuation. There is a remote infarct in the right periventricular white matter and deep cool nuclei. Atherosclerotic changes are present in the intracranial segments of the internal carotid arteries and V4 segments of the vertebral arteries. The ventricular system is normal in size. The brainstem and the cerebellum are unremarkable. The visualized intraorbital contents, the visualized paranasal sinuses, and the infratemporal soft tissues show no acute abnormality. The osseous structures in the skull base and the calvarium show no abnormality. CT/CT head/brain wo con IMPRESSION: No acute pathology. Chronic age-related ventriculomegaly remote lacunar infarct in the right frontal ventricular Matter extending to the right deep cool nuclei. Impression dictated by: Phil George M.D. 10/29/2024 8:13 PM Dictation Location: [place] [address] Electronically authenticated by: [id number] Y Date: 10/29/2024 20:13
--- NOTE | 2024-10-29 18:49 | ED.GENADUL1 ---
HPI HPI - General Adult General Chief complaint: Headache Stated complaint: HEADACHE, PAIN IN R ARM, NAUSEA Time Seen by Provider: 10/29/24 18:35 History of Present Illness HPI narrative: The patient is a 84-year-old female who presents to the emergency department today for evaluation of both complaints including a headache, nausea, and myalgias. She reports over the past week she has had intermittent frontal area headaches which she believes associated symptoms of nausea without vomiting. She mention she has intermittently taken aspirin for these which seems to alleviate her pain some. She denies any vision difficulties, neck/back pain, chest pain, shortness of breath. No abdominal pain. She denies any urinary symptoms or back/flank pain. She endorses a history of Takotsubo's cardiomyopathy this past year in addition to remote history of CVA. Historically she is on low-dose aspirin and Eliquis and mention she has a history of A-fib. Related Data Home Medications ?Medication ?Instructions ?Recorded ?Confirmed carvedilol 3.125 mg tablet 3.125 mg PO BID 03/21/23 04/02/24 levothyroxine 25 mcg tablet 25 mcg PO QDAY 03/21/23 04/02/24 valsartan 40 mg tablet 20 mg PO QDAY 03/21/23 04/02/24 apixaban 5 mg tablet (Eliquis) 5 mg PO BID 04/02/24 04/02/24 Allergies Allergy/AdvReac Type Severity Reaction Status Date / Time Penicillins Allergy Severe Fainting Verified 10/29/24 18:51 lisinopril AdvReac Severe Cough Verified 10/29/24 18:51 Opioid HPI Opioid Management Most Recent Opioid Data: Last Pain Scale 8 Today, 18:42 Review of Systems ROS Status of ROS 10 or more systems reviewed and unremarkable except as noted in history and below [facility] Medical History (Updated 10/29/24 @ 21:27 by Ray Ruiz NP) Cerebrovascular disease ?I67.9 - Cerebrovascular disease, unspecified (ICD-10) Stage 3b chronic kidney disease (CKD) ?N18.32 - Chronic kidney disease, stage 3b (ICD-10) Type 2 diabetes mellitus with hyperglycemia ?E11.65 - Type 2 diabetes mellitus with hyperglycemia (ICD-10) Colitis ?K52.9 - Noninfective gastroenteritis and colitis, unspecified (ICD-10) Paroxysmal atrial flutter ?I48.92 - Unspecified atrial flutter (ICD-10) HTN (hypertension) ?I10 - Essential (primary) hypertension (ICD-10) CAD (coronary artery disease) ?I25.10 - Atherosclerotic heart disease of [place] coronary artery without angina pectoris (ICD-10) Lumbar spondylosis ?M47.816 - Spondylosis without myelopathy or radiculopathy, lumbar region (ICD-10) AAA (abdominal aortic aneurysm) without rupture ?I71.40 - Abdominal aortic aneurysm, without rupture, unspecified (ICD-10) Cerebrovascular accident ?I63.9 - Cerebral infarction, unspecified (ICD-10) Type 2 diabetes mellitus ?E11.9 - Type 2 diabetes mellitus without complications (ICD-10) Lacunar stroke, acute ?I63.81 - Other cerebral infarction due to occlusion or stenosis of small artery (ICD-10) Hypothyroid ?E03.9 - Hypothyroidism, unspecified (ICD-10) HLD (hyperlipidemia) ?E78.5 - Hyperlipidemia, unspecified (ICD-10) Cataract (lens) fragments in eye following cataract surgery, bilateral ?H59.023 - Cataract (lens) fragments in eye following cataract surgery, bilateral (ICD-10) Cataracts, bilateral ?H26.9 - Unspecified cataract (ICD-10) Chronic kidney disease, stage 3 unspecified ?N18.30 - Chronic kidney disease, stage 3 unspecified (ICD-10) Borderline diabetes mellitus ?R73.03 - Prediabetes (ICD-10) Myocardial infarct, old ?I25.2 - Old myocardial infarction (ICD-10) Surgical History History of appendectomy ?Z90.49 - Acquired absence of other specified parts of digestive tract (ICD-10) History of right heart catheterization ?Z98.890 - Other specified postprocedural states (ICD-10) H/O lumpectomy ?Z98.890 - Other specified postprocedural states (ICD-10) Family History Brother Family history of diabetes mellitus Family history of myocardial infarction Mother Family history of diabetes mellitus Family history of myocardial infarction Sister Family history of myocardial infarction Family history of stroke Daughter Family history of cancer Uncle Family history of CHF (congestive heart failure) Father Family history of COPD (chronic obstructive pulmonary disease) Social History Within the past year, how often did you have a drink containing alcohol: never Score interpretation: A score less than 3 is consistent with normal alcohol consumption. 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 Known occupational exposures/hazards: No Highest level of school completed/degree received: some college, no degree Do you want help with school or training: No Are you now , , , , never or living with a partner: In a typical week, how many times do you talk on the telephone with family, friends, or neighbors: 3 or more times per week How often do you get together with friends or relatives: 3 or more times per week Little interest or pleasure in doing things: not at all Feeling down, depressed, or hopeless: not at all Feel stressed/tense/nervous/anxious/difficulty sleeping: not at all Life stressors: recent of family or friend Life stressor details: daughter last year Do you think of yourself as: straight/heterosexual Gender Identity: female Exam Narrative Exam Narrative: Constituational: Awake/ alert, no apparent distress, well hydrated HENMT: normocephalic, external ears normal, moist oral mucous membranes and oropharynx normal Eyes: EOMI and conjunctivae normal Neck: ROM intact Chest: inspection of chest normal Respiratory: Normal respiratory effort, clear to auscultation bilaterally Cardio: regular rate and regular rhythm GI: soft to palpation and non-tender Back: nontender MSK: ROM intact, +NVI Skin: no rashes or petechiae Neuro: no focal deficits, moves all extremities with normal and equal strength Psych: mental status grossly normal Constitutional Vital Signs, click to edit/add: Last Vital Signs Temp 98.5 F 10/29/24 18:42 Pulse 75 10/29/24 18:42 Resp 14 10/29/24 18:42 BP 136/70 10/29/24 20:39 Pulse Ox 96 10/29/24 18:42 O2 Del Method Room Air 10/29/24 18:42 Course Vital Signs Vital signs: Vital Signs Temperature 98.5 F 10/29/24 18:42 Pulse Rate 75 10/29/24 18:42 Respiratory Rate 14 10/29/24 18:42 Blood Pressure 188/90 H 10/29/24 18:42 Pulse Oximetry 96 10/29/24 18:42 Oxygen Delivery Method Room Air 10/29/24 18:42 Temperature 98.5 F 10/29/24 18:42 Pulse Rate 75 10/29/24 18:42 Respiratory Rate 14 10/29/24 18:42 Blood Pressure 136/70 10/29/24 20:39 Pulse Oximetry 96 10/29/24 18:42 Oxygen Delivery Method Room Air 10/29/24 18:42 Medical Decision Making MDM Narrative Medical decision making narrative: The patient is a nontoxic and well-appearing 84-year-old female who presented to the emergency department today for evaluation of concerns for headache with symptoms of nausea without vomiting. Initial examination without any concerning neurologic or strokelike findings on exam. Patient with remote history of CVA with no residual deficits in addition to reported Takotsubo cardiomyopathy 03/2024. She otherwise she does not appear to be having any anginal symptoms and does appear euvolemic on exam. EKG without acute changes. Initial troponin is 156 >> 235.3 on repeat. Labs otherwise stable as below with exception to noted Hgb 10.8, function with Cr 2.0 -> stable per prior trends. Lipase noted mildly elevated 85 however this is down trended from prior. UA is concerning for UTI as evidenced by presence of small leukocytes and bacteria -> she did receive p.o. cephalexin. Viral testing is negative for influenza and COVID. Patient was reevaluated multiple times while in the emergency department and is otherwise remained hemodynamically stable. SBP did improve with supportive treatment for headache with Reglan and Benadryl. CT imaging of head additionally without critical findings. Clinical impression elevated troponin in the setting of tension and UTI. Did subsequently discuss patient's condition with Dr. Colon (hospitalist) -> this patient did have an angiogram 03/2024 in [facility] where there was no intervention performed. Historically patient is on aspirin and Eliquis. Patient is excepted for admission. Will hold off on heparin drip for any additional medical therapy for elevated troponins at this time. Discussed the above findings and recommendations with the patient. She additionally is agreeable with the plan to be mated for further care of the above. Medical Records Medical records reviewed: Yes I reviewed the patient's medical records Lab Data Lab results reviewed: Yes I reviewed the patient's lab results Labs: Lab Results 10/29/24 10/29/24 10/29/24 Range/Units 19:10 19:14 19:30 WBC 8.2 (4.0-11.0) 10^3/uL RBC 3.52 L (4.20-5.40) 10^6/uL Hgb 10.8 L (12.0-16.0) g/dL Hct 32.9 L (36.0-48.0) % MCV 93.5 (81.0-99.0) fL MCH 30.7 (26.7-34.0) pg MCHC 32.8 (29.9-35.2) g/dL RDW 13.0 (11.0-15.0) % Plt Count 222 (150-450) 10^3/uL MPV 10.5 (9.5-13.5) fL Neut % (Auto) 67.4 (43.0-75.0) % Lymph % (Auto) 21.0 (20.5-60.0) % Freestone % (Auto) 5.4 (1.7-12.0) % Eos % (Auto) 5.5 (0.9-7.0) % Baso % (Auto) 0.5 (0.2-2.0) % Neut # (Auto) 5.5 (1.4-6.5) 10^3/uL Lymph # (Auto) 1.7 (1.2-3.8) 10^3/uL [place] # (Auto) 0.4 (0.3-0.8) 10^3/uL Eos # (Auto) 0.5 (0.0-0.7) 10^3/uL Baso # (Auto) 0.0 (0.0-0.1) 10^3/uL Abs Immat Gran (auto) 0.02 (0.00-0.03) 10^3/uL Imm/Tot Granulo (auto) 0.2 (0.0-0.5) % Sodium 137 (136-145) mmol/L Potassium 4.1 (3.5-5.1) mmol/L Chloride 103 (98-107) mmol/L Carbon Dioxide 23.2 (21.0-32.0) mmol/L Anion Gap 14.9 BUN 35.0 H (7.0-18.0) mg/dL Creatinine 2.00 H (0.55-1.02) mg/dL Est GFR ( Amer) 29 L (>=60 mL/min/1.73m^2) Est GFR (Non-Af Amer) 24 L (>=60 mL/min/1.73m^2) BUN/Creatinine Ratio 17.5 Glucose 215 H (74-106) mg/dL Calcium 8.8 (8.5-10.1) mg/dL Total Bilirubin 0.5 (0.2-1.0) mg/dL AST 16 (15-37) U/L ALT 14 (14-59) U/L Alkaline Phosphatase 65 (46-116) U/L Troponin I High Sens 156.0 H* (4.0-51.3) pg/mL Total Protein 7.2 (6.4-8.2) g/dL Albumin 3.0 L (3.4-5.0) g/dL Globulin 4.2 g/dL Albumin/Globulin Ratio 0.7 Lipase 85.0 H (16.0-77.0) U/L Urine Color Lt. yellow (YELLOW) Urine Clarity Clear (CLEAR) Urine pH 6.0 (5.0-9.0) Ur Specific Josephine 1.015 (1.005-1.025) Urine Protein 100 A (NEG/TRACE) mg/dL Urine Glucose (UA) Negative (NEGATIVE) mg/dL Urine Ketones Negative (NEGATIVE) mg/dL Urine Occult Blood Large A (NEGATIVE) Urine Nitrite Negative (NEGATIVE) Urine Bilirubin Negative (NEGATIVE) Urine Urobilinogen 0.2 (0.2-1.0) EU/dL Ur Leukocyte Esterase Small A (NEGATIVE) Urine RBC 20-50 A (0-2) #/HPF Urine WBC 5-10 A (NONE SEEN) #/HPF Ur Squamous Epith Cells Rare (NONE/RARE) #/LPF Ur Transition Epith Cell Rare A (NONE SEEN) #/LPF Urine Crystals None seen (None Seen) #/HPF Urine Bacteria Trace A (NONE SEEN) #/HPF Urine Casts Seen A (NONE SEEN) #/LPF Hyaline Casts Rare Urine Mucus None seen (NONE SEEN) Ur Culture Indicated? Yes-[facility] [place] Influenza Type A Ag Negative Influenza Type B Ag Negative SARS-CoV-2 Ag (CV2AG) Negative (NEGATIVE) 10/29/24 Range/Units 20:15 WBC (4.0-11.0) 10^3/uL RBC (4.20-5.40) 10^6/uL Hgb (12.0-16.0) g/dL Hct (36.0-48.0) % MCV (81.0-99.0) fL MCH (26.7-34.0) pg MCHC (29.9-35.2) g/dL RDW (11.0-15.0) % Plt Count (150-450) 10^3/uL MPV (9.5-13.5) fL Neut % (Auto) (43.0-75.0) % Lymph % (Auto) (20.5-60.0) % Freestone % (Auto) (1.7-12.0) % Eos % (Auto) (0.9-7.0) % Baso % (Auto) (0.2-2.0) % Neut # (Auto) (1.4-6.5) 10^3/uL Lymph # (Auto) (1.2-3.8) 10^3/uL Fre[place] # (Auto) (0.3-0.8) 10^3/uL Eos # (Auto) (0.0-0.7) 10^3/uL Baso # (Auto) (0.0-0.1) 10^3/uL Abs Immat Gran (auto) (0.00-0.03) 10^3/uL Imm/Tot Granulo (auto) (0.0-0.5) % Sodium (136-145) mmol/L Potassium (3.5-5.1) mmol/L Chloride (98-107) mmol/L Carbon Dioxide (21.0-32.0) mmol/L Anion Gap BUN (7.0-18.0) mg/dL Creatinine (0.55-1.02) mg/dL Est GFR ( Amer) (>=60 mL/min/1.73m^2) Est GFR (Non-Af Amer) (>=60 mL/min/1.73m^2) BUN/Creatinine Ratio Glucose (74-106) mg/dL Calcium (8.5-10.1) mg/dL Total Bilirubin (0.2-1.0) mg/dL AST (15-37) U/L ALT (14-59) U/L Alkaline Phosphatase (46-116) U/L Troponin I High Sens 235.3 H* (4.0-51.3) pg/mL Total Protein (6.4-8.2) g/dL Albumin (3.4-5.0) g/dL Globulin g/dL Albumin/Globulin Ratio Lipase (16.0-77.0) U/L Urine Color (YELLOW) Urine Clarity (CLEAR) Urine pH (5.0-9.0) Ur Specific Josephine (1.005-1.025) Urine Protein (NEG/TRACE) mg/dL Urine Glucose (UA) (NEGATIVE) mg/dL Urine Ketones (NEGATIVE) mg/dL Urine Occult Blood (NEGATIVE) Urine Nitrite (NEGATIVE) Urine Bilirubin (NEGATIVE) Urine Urobilinogen (0.2-1.0) EU/dL Ur Leukocyte Esterase (NEGATIVE) Urine RBC (0-2) #/HPF Urine WBC (NONE SEEN) #/HPF Ur Squamous Epith Cells (NONE/RARE) #/LPF Ur Transition Epith Cell (NONE SEEN) #/LPF Urine Crystals (None Seen) #/HPF Urine Bacteria (NONE SEEN) #/HPF Urine Casts (NONE SEEN) #/LPF Hyaline Casts Urine Mucus (NONE SEEN) Ur Culture Indicated? Influenza Type A Ag Influenza Type B Ag SARS-CoV-2 Ag (CV2AG) (NEGATIVE) Imaging Data CT scan - head: Attestation: I have reviewed the pertinent imaging results. Radiologist's impression: ITS Impressions Head CT 10/29/24 18:48 IMPRESSION: No acute pathology. Chronic age-related ventriculomegaly remote lacunar infarct in the right frontal ventricular Matter extending to the right deep cool nuclei. Impression dictated by: Phil George M.D. 10/29/2024 8:13 PM Dictation Location: [place] [address] Electronically authenticated by: [id number] Y Date: 10/29/2024 20:13 ECG Data Attestation: I personally reviewed and interpreted this ECG as follows: (SR with HR 61, ST/T abnormality->no significant changes from EKG 03/2024) Discharge Plan Discharge Patient Disposition: Still a Patient
[2024-10-29 19:29] LABS: Hematocrit 32.9 % (36.0-48.0); Hemoglobin 10.8 g/dL (12.0-16.0); Immature Granulocytes Abs Auto 0.02 10^3/uL (0.00-0.03); Immature Granulocytes Pct Auto 0.2 % (0.0-0.5); Lymphocytes Absolute Auto 1.7 10^3/uL (1.2-3.8); Mean Corpuscular HGB Conc 32.8 g/dL (29.9-35.2); Mean Corpuscular Hemoglobin 30.7 pg (26.7-34.0); Mean Corpuscular Volume 93.5 fL (81.0-99.0); Platelet Count 222 10^3/uL (150-450); Red Blood Count 3.52 10^6/uL (4.20-5.40); White Blood Count 8.2 10^3/uL (4.0-11.0)
[2024-10-29 19:30] LABS: Glucose Urine UA NEGATIVE (NEGATIVE)
[2024-10-29] MEDS: METOCLOPRAMIDE HCL 10 MG/2 ML VIAL IVP (19:33)
[2024-10-29] MEDS: DIPHENHYDRAMINE HCL 50 MG/ML VIAL 25 MG IVP (19:33)
[2024-10-29 19:55] LABS: Cast Seen? SEEN #/LPF (NONE SEEN); Crystals Seen? None Seen #/HPF (None Seen)
[2024-10-29 19:55] LABS: Alanine Aminotransferase 14 U/L (14-59); Albumin Globulin Ratio 0.7; Albumin Level 3.0 g/dL (3.4-5.0); Alkaline Phosphatase 65 U/L (46-116); Anion Gap 14.9; Aspartate Amino Transferase 16 U/L (15-37); Blood Urea Nitrogen 35.0 mg/dL (7.0-18.0); Calcium 8.8 mg/dL (8.5-10.1); Carbon Dioxide 23.2 mmol/L (21.0-32.0); Chloride 103 mmol/L (98-107); Estimated GFR (African America 29 (>=60 mL/min/1.73m^2); Estimated GFR (Non-African Ame 24 (>=60 mL/min/1.73m^2); Globulin 4.2 g/dL; Glucose 215 mg/dL (74-106); Lipase 85.0 U/L (16.0-77.0); Potassium 4.1 mmol/L (3.5-5.1); Sodium 137 mmol/L (136-145); Total Protein 7.2 g/dL (6.4-8.2)
[2024-10-29 19:56] LABS: Urine Culture Indicated YES-FRMC
[2024-10-29 20:03] LABS: SARS-CoV-2 Ag NEGATIVE (NEGATIVE)
--- NOTE | 2024-10-29 20:51 | PC.NURSE ---
lab dept called with a critical trop= 235.3, Dr Beth and nurse in formed of this
[2024-10-29] MEDS: CEPHALEXIN 500 MG CAPSULE PO (22:20)
--- OUTSIDE RECORDS SUMMARY | 2024-10-29 22:53 | XMS_ITS | CCD ---
Author Organization [facility] Care Team Providers Care Support Service Tech Name Role Phone RIAN ROSS Admitting Unavailable [...] WIECEK, DR TIM Servin Admitting Unavailable [place] Consulting Unavailable KUNS, DR KATHIE Del Castillo Admitting Unavailable KUNS, [...] KUNS, DR KATHIE Del Castillo Consulting Unavailable Jorge Luis Whitehead Primary Care Provider Jorge Luis Whitehead DO Primary Care Provider Jorge Luis Whitehead DO Primary Care Provider Gabi Gaona Unavailable Jorge Luis Whitehead DO Primary Care Provider Premlong, DO Kang Primary Care Provider [phone] MD Simin Lama Attending Provider [phone] DRAKE ANAND Attending Unavailable KUNTE, DRAKE Referring Unavailable FURLONG, JORGE LUIS MINDI Primary Care Unavailab le MATTY ANANDARTH Referring Unavailable FURLONG, JORGE LUIS MINDI Primary Care Unavailab SIMIN Burton Attending Unavailable LARY DRAKE Referring Unavailable FURLONG, JORGE LUIS MINDI Primary Care Unavailab jairo Briones MD, Amanda Primary Care Provider Pattie BUSINESS BANKING SALES ASSISTANT, Higg[place] Unavailable Amanda Briones MD Unavailable Jack Rogel MD Primary Care Provider Alfred RUTH, Jorge Luis Hodge Primary Care Provider Jack Rogel MD Primary Care Provider [phone] Amanda Briones MD Unavailable [phone] Jack Rogel MD Primary Care Provider Jack Rogel MD Primary Care Provider [phone] Ngoc Wolf MD Admit Provider Gordo Fagan MD Attending Provider Eloise Galicia MD Attending Provider Scott Ojeda DO Emergency Provider Scott Ojeda Admitting Unavailable Scott Ojeda Attending Unavailable Jack Rogel Primary Care Unavailable Eloise Galicia Admitting Unavailable Eloise Galicia Attending Unavailable Jack Rogel Primary Care Unavailable Jack Rogel Primary Care Unavailable Ngoc Wolf Admitting Unavailable Gordo Fagan Attending Unavailable Karin Almanza Consulting Unavailable Iqra Jimenez Consulting Unavailable Holland Byrne Consulting Unavailable Artemio Walden Consulting Unavail able Esther Hagan Consulting Unavailable Janusz Dill Consulting Unavailab Neena Guardado Consulting Unavailable Galicia, Eloise Consulting Unavailable Tiago Asencio Consulting Unavailab Mayank Kang Consulting Unavailable Masha London Consulting Unavailable Toi Horne DPM Unavailable Jack Rogel MD Primary Care Provider GALICIA, ELOISE Referring Unavailable HEMEADOLPH, EDMULUGETA J Primary Care Unavailable GALICIA, ELOISE Referring Unavailable HEMEYER, EDMULUGETA Dao Primary Care Unavailable YVONNE, ELOISE Attending Unavailable HEMEADOLPH, JACK Dao Primary Care Unavailable MARGARET GALICIAA Attending Unavailable MARGARET GALICIAA Referring Unavailable HEMEADOLPH, JACK Dao Primary Care Unavailable Jack Rogel MD Unavailable KAT PALOMARES Attending Unavailable GALICIA, ELOISE Referring Unavailable HEMEADOLPH, JACK Dao Primary Care Unavailable KAT PALOMARES Attending Unavailable YVONNE, ELOISE Referring Unavailable JACK ROGEL Primary Care Unavailable Tenzin Hsu MD Unavailable Jack Rogel MD Primary Care Provider TENZIN HSU Attending Unavailable TENZIN HSU Referring Unavailable HEMEADOLPH, JACK Dao Primary Care Unavailable TENZIN HSU Attending Unavailable TENZIN HSU Referring Unavailable HEMEADOLPH, JACK Dao Primary Care Unavailable TENZIN HSU Attending Unavailable TENZIN HSU Referring Unavailable HEMEADOLPH, JACK Dao Primary Care Unavailable JACK ROGEL Attending Unavailable TOI HORNE Attending Unavailable JR. BARAJAS GEORGE C Attending Unavaila ble HEMEADOLPH, JACK Dao Referring Unavailable JR. BARAJAS GEORGE C Referring Unavaila ble HEMEADOLPH, JACK Dao Attending Unavailable BRIAN MISRHA Attending Unavailable MEHRDAD JACKSON Attending Unavailable HEMEADOLPH, JACK Dao Attending Unavailable JACK ROGEL Attending Unavailable Jack Rogel MD Primary Care Provider Casi Holloway APRN Attending Provider NON STAFF Primary Care Provider UnavailTenzin Kang MD Unavailable Allergies Allergy Classification Reported Allergen(s) Allergy Type Date of Onset Reaction(s) Facility (12 sources) Amino Acids; Translations: [LISINOPRIL] Drug Allergy 04-05-20 21 Cough [facility] [place] Repository (12 sources) Penicillins; Translations: [PENICILLINS] Drug allergy (disorder) 09-21-19 16 Rash, Rash, dizziness, LOC [facility] [place] Repository (18 sources) Lisinopril Drug Allergy 04-05-20 21 Unknown, Cough, Other [facility] (2 sources) Penicillins Drug Intolerance 04-05-20 21 Other: See Comments [facility] (12 sources) Penicillins Drug Intolerance 04-05-20 Other: See Comments, Other, Dizziness or Vertigo [facility] (5 sources) Amino Acids Drug Allergy 02-01-20 Other: See Comments [facility] (1 source) Penicillin V Drug Allergy dizziness, LOC [facility] [facility] Other (20 sources) Amino Acids Drug Allergy 02-01-20 Other [facility] Work Phone: (20 sources) HMG-CoA reductase inhibitor Propensity to adverse reactions 09-09-19 23 Other [facility] Healthcare Work Phone: (20 sources) Lisinopril Propensity to adverse reactions 04-05-20 21 Cough, Other [facility] Healthcare (20 sources) Penicillins Drug Intolerance 04-05-20 21 Other [facility] Healthcare (9 sources) HMG-CoA reductase inhibitor; Translations: [[id number] REDUCTASE INHIBITORS] Drug Intolerance 09-09-19 23 Other [facility] Work Phone: (1 source) Lisinopril Drug Allergy 06-11-19 25 [facility] Repository (1 source) Penicillins Drug allergy (disorder) 06-11-19 25 [facility] Repository (7 sources) atorvastatin; Translations: [ATORVASTATIN] Drug Allergy 05-19-19 GI Upset, Myalgia [facility] (4 sources) Penicillins Drug Intolerance 04-05-20 21 Other, Diarrhea [facility] Work Phone: (12 sources) gabapentin Drug Allergy 08-28-19 25 Diarrhea [facility] Healthcare Work Phone: (3 sources) atorvastatin Drug Allergy 08-06-19 25 Nausea [facility] Medications Current Medications Medication Drug Class(es) Dates Sig (Normalized) Sig (Original) apixaban 2.5 mg oral tablet (20 sources) Factor Xa Inhibitor Start: 10-26-2024 take 1 tablet by mouth twice daily Start: 05-20-2024 End: 08-18-2024 take 1 tablet by mouth twice daily in the morning apixaban (Eliquis) 2.5 mg tablet Indications: Paroxysmal atrial fibrillation (Multi) Take 1 tablet (2.5 mg) by mouth 2 times a day. 180 tablet 3 08/15/2024 8:51 AM EDT 08/13/2024 Active Start: 09-24-2023 End: 10-26-2024 take 1 tablet by mouth in the morning apixaban (Eliquis) 5 MG tablet Indications: Paroxysmal atrial fibrillation (HCC) Take 1 tablet (5 [...] 09/24/2023 Active aspirin 81 mg chewable tablet (20 sources) Platelet Aggregation Inhibitor, Nonsteroidal Anti-inflammatory Drug Start: 04-04-2024 take 1 tablet by mouth once daily Start: 06-14-2018 End: 04-02-2024 take 1 tablet by mouth once daily Aspirin 81 mg Tablet,Chewable Discontinued 81 MG PO Daily 0 June 14, 2018 1:00am April 02, 2024 11:27pm take 1 tablet by edna th once daily aspirin 81 MG EC tablet Take 1 tablet by mouth daily Active aspirin 81 mg ca p aspirin low dose 81mg ec Active aspirin 81 mg ca p aspirin low dose 81mg ec 0 Active Comment on above: aspirin low dose 81m g ec atorvastatin 80 mg oral tablet (20 sources) HMG-CoA Reductase Inhibitor Start: take 1 tablet by mouth in the evening atorvastatin (Lipitor) 80 MG tablet Take 80 mg by mouth in the evening 06/19/2024 Active Start: 04-04-2024 End: 06-04-2024 take 1 tablet by mouth once daily in the evening Atorvastatin 80 mg Tablet Discontinued 80 MG PO Every evening April 04, 2024 1:00am June 04, 2024 4:12pm Start: 04-18-2023 End: 10-15-2023 take 1 tablet [...] Tablet Discontinued 80 MG PO Every evening June 14, 2018 1:00am April 02, 2024 11:28pm carvedilol 6.25 mg oral tablet (20 sources) alpha-Adrenergic Jareth, beta-Adrenergic Jareth Start: 04-04-2024 End: 10-26-2024 take 1 tablet by mouth in the morning carvedilol (Coreg) 6.25 MG tablet Indications: Paroxysmal atrial fibrillation (HCC) Take 1 tablet (6.25 mg) by mouth in the morning and 1 tablet (6.25 mg) in the evening. Take with meals. 04/23/2024 Active Start: 06-18-2018 End: 01-07-2025 take 1 tablet by mouth twice daily Comment on above: Take 3.125 mg by edna th twice daily with meals. ezetimibe 10 mg oral tablet (20 sources) Dietary Cholesterol Absorption Inhibitor End: take 1 tablet by mouth in the morning ezetimibe (Zetia) 10 MG tablet Take 10 mg by mouth in the morning. 09/15/2024 Discontinued (Med list cleanup) gabapentin 100 mg oral capsule (1 source) Anti-epileptic Agent Start: End: 5 take 1 capsule by mouth in the morning, then take 1 capsule by mouth in the evening, then take 1 capsule by mouth at bedtime gabapentin (Neurontin) 100 MG capsule Indications: Pain of toes of both feet Take 1 capsule (100 mg) by mouth in the morning and 1 capsule (100 mg) in the evening and 1 capsule (100 mg) before bedtime. Do all this for 10 days. 30 capsule 08/19/2024 08/27/2024 Discontinued (Side effects) LOW-DOSE ASPIRIN PO (2 sources) LOW-DOSE ASPIRIN PO Low-Dose Aspirin 0 Active magnesium oxide 400 mg oral tablet (9 sources) Start: 4 End: 6 take 1 tablet by mouth twice daily magnesium oxide (Mag-Ox) 400 mg tablet Indications: Paroxysmal atrial fibrillation (Multi) Take 1 tablet (400 mg) by mouth 2 times a day. 180 tablet 3 05/19/2024 05/19/2025 Active 24 hr metoprolol succinate 25 mg extended release oral tablet (2 sources) beta-Adrenergic Jareth Start: 4 End: 5 take 1 tablet by mouth once daily metoprolol succinate XL (Toprol-XL) 25 mg 24 hr tablet Indications: Paroxysmal atrial fibrillation (Multi) , Primary hypertension Take 1 tablet (25 mg) by mouth once daily. Do not crush or chew. 90 tablet 3 07/02/2023 07/01/2024 Active Multiple Vitamin (MULTIVITAMIN ADULT PO) (20 sources) Multiple Vitamin (MULTIVITAMIN ADULT PO) Multivitamin Active Multiple Vitamin (MULTIVITAMIN ADULT PO) Multivitamin 0 Active Multiple Vitamins-Minerals (THERAPEUTIC MULTIVITAMIN-MINERALS) tablet (3 sources) take 1 tablet by mouth once daily Multiple Vitamins-Minerals (THERAPEUTIC MULTIVITAMIN-MINERALS) tablet Take 1 tablet by mouth daily Active nitrofurantoin, macrocrystals 25 mg / nitrofurantoin, monohydrate 75 mg oral capsule (2 sources) Nitrofuran Antibacterial Sta rt: 5 take 1 capsule by mouth twice daily at mealtime rosuvastatin calcium 5 mg oral tablet (20 sources) HMG-CoA Reductase Inhibitor Sta rt: 5 End : 5 take 1 tablet by mouth in the morning rosuvastatin (Crestor) 5 MG tablet Take 5 mg by mouth in the morning. 05/20/2024 09/15/2024 Discontinued (Med list cleanup) sildenafil 50 mg oral tablet (12 sources) Phosphodiesterase 5 Inhibitor Sta rt: 5 take 1 tablet by mouth in the morning sildenafil (Viagra) 50 MG tablet Take 50 mg by mouth in the morning and 50 mg before bedtime. 08/28/2024 Active spironolactone 25 mg oral tablet (20 sources) Aldosterone Antagonist Sta rt: End : take 0.5 tablet by mouth once daily spironolactone (Aldactone) 25 mg tablet Indications: Acute on chronic left systolic heart failure Take 0.5 tablets (12.5 mg) by mouth once daily. 45 tablet 1 07/11/2024 01/07/2025 Active Start: 04-04-2024 End: 05-19-2025 spironolactone (Aldactone) 2 5 MG tablet Take 12.5 mg by mouth in the morning. 05/19/2024 05/19/2025 Active valsartan 40 mg oral tablet (20 sources) Angiotensin 2 Receptor Jareth Start: 07-11-2024 End: 01-07-2025 take 1 tablet by mouth twice daily valsartan (Diovan) 40 mg tablet Indications: Primary hypertension Take 1 tablet (40 mg) by mouth 2 times a day. 180 tablet 1 07/11/2024 01/07/2025 Active Start: 04-04-2024 End: 06-04-2024 take 1 tablet by mouth twice daily Valsartan 40 mg Tablet Discontinued 40 MG PO Twice daily 60 30 April 04, 2024 1:00am June 04, 2024 4:13pm Start: 07-02-2023 End: 09-07-2024 take 1 tablet by mouth once Start: 04-03-2023 End: 09-30-2023 take 0.5 tablet by mouth in the morning valsartan (Diovan) 40 MG tablet Indications: Primary hypertension (CMS/HCC) Take 0.5 tablets (20 mg) by mouth in the morning. 45 tablet 1 04/03/2023 09/30/2023 Active Completed/Discontinued Medications Medication Drug Class(es) Dates Sig (Normalized) Sig (Original) acetaminophen 325 mg / HYDROcodone bitartrate 5 mg oral tablet (8 sources) Opioid Agonist Start: 06-11-2024 End: 10-26-2024 take 1 tablet by mouth every six hours as needed for pain Hydrocodone-Acetam inophen 5-325 mg tablet Discontinued 1 TAB PO Every 6 hours as needed for breakthrough pain, moderate 20 7 June 11, 2024 October 26, 2024 10:45am 5 ml bupivacaine hydrochloride 5 mg/ml injection (4 sources) Amide Local Anesthetic Start: 10-07-2024 End: 10-07-2024 bupivacaine PF (Marcaine) 0.5 % injection 1 mL Start: 10-07-2024 End: 10-07-2024 1 mL, Injection, Once PRN Pr ocedure, Starting on Sun10/07/24 at 0933, For 1 dose clopidogrel 75 mg oral tablet (10 sources) [id number] Platelet Inhibitor Start: 04-18-2023 End: 10-15-2023 take 1 tablet by mouth once daily clopidogrel (Plavix) 75 mg tablet Take 1 tablet (75 mg) by mouth once daily. 0 04/18/2023 07/02/2023 Discontinued (Therapy completed) Start: 06-18-2018 End: 07-13-2019 take 1 tablet by mouth once daily Clopidogrel (Plavix) 75 mg tablet Discontinued 75 MG PO Daily 30 June 18, 2018 1:00am July 12, 2019 12:00am July 13, 2019 12:03am 1 ml enoxaparin sodium 100 mg/ml prefilled syringe (7 sources) Low Molecular Weight Heparin Start: 06-18-2018 End: 06-23-2018 Enoxaparin (Lovenox) 100 mg/mL syringe Discontinued 75 MG SUBCUT Daily 3.75 5 June 18, 2018 1:00am June 22, 2018 1:00am June 23, 2018 1:03am iopamidol (ISOVUE-370) 76 % injection 50 mL (1 source) Start: 09-24-2024 End: 09-24-2024 take 1 dose intravenously once 50 mL, IntraVENous, IMG ONCE PRN, 1 dose, Starting on Sun09/24/24 at 0947, Until Sun09/24/24 at 0947, Other iv contrast (will be provided with radiology [...] in the MR contrast administration guidelines link levothyroxine sodium 0.025 mg oral capsule (20 sources) l-Thyroxine Start: 04-02-2024 End: 10-26-2024 take 1 capsule by mouth once daily Levothyroxine 25 mcg capsule Discontinued 25 MCG PO Daily April 02, 2024 1:00am October 26, 2024 10:45am Start: 09-24-2023 End: 03-22-2024 take 1 tablet by mouth once daily levothyroxine (Synthroid) 25 MCG tablet Indications: Hypothyroidism (acquired) Take 1 tablet (25 mcg) by mouth Daily Take on an empty stomach 90 tablet 1 09/24/2023 Active Start: 03-20-2023 End: 06-18-2023 take 1 tablet by mouth once daily levothyroxine (Synthroid, Levoxyl) 25 mcg tablet Take 1 tablet (25 mcg) by mouth once daily. 03/20/2023 Active lisinopril 2.5 mg oral tablet (7 sources) Angiotensin Converting Enzyme Inhibitor Start: 06-14-2018 End: 04-02-2024 take 1 tablet by mouth once daily Lisinopril 2.5 mg Tablet Discontinued 2.5 MG PO Daily June 14, 2018 1:00am April 02, 2024 11:28pm metFORMIN hydrochloride 500 mg oral tablet (7 sources) Biguanide Start: 06-14-2018 End: 04-02-2024 Metformin 500 mg tablet Discontinued 250 MG PO Twice daily June 14, 2018 1:00am April 02, 2024 11:28pm Start: 06-14-2018 take 250 mg by mouth twice bhargavi ly Metformin Active 250 MG PO Twice daily June 14, 2018 12:00am 1 ml methylPREDNISolone acetate 40 mg/ml injection (4 sources) Corticosteroid Start: 10-07-2024 End: 10-07-2024 methylPREDNISolone acetate (DEPO-Medrol) injection 40 mg Start: 10-07-2024 End: 10-07-2024 40 mg, Intra-articular, Once PRN Procedure, Starting on Sun10/07/24 at 0933, For 1 dose mometasone furoate 1 mg/ml topical cream (20 sources) Corticosteroid Start: 04-02-2024 End: 10-26-2024 Mometasone 0.1 % cream Discontinued 1 APPLIC TOPICAL .PRN April 02, 2024 1:00am October 26, 2024 10:45am Start: 02-11-2024 End: 03-12-2024 mometasone (Elocon) 0.1 % cr eam Indications: Lichen sclerosus Apply 1 application topically Daily 15 g 5 02/11/2024 03/12/2024 morphine sulfate 15 mg extended release oral tablet (8 sources) Opioid Agonist Start: 06-11-2024 End: 10-26-2024 take 1 tablet by mouth every twelve hours Morphine (Ms Contin) 15 mg tablet extended release Discontinued 15 MG PO Every 12 hours 14 June 11, 2024 October 26, 2024 10:45am nitroglycerin 0.4 mg sublingual tablet (7 sources) Nitrate Vasodilator Start: 06-14-2018 End: 10-12-2018 Nitroglycerin 0.4 mg tablet, sublingual Discontinued 0.4 MG SUBLINGUAL every 5 to 15 minutes as needed for chest pain June 14, 2018 1:00am October 11, 2018 12:00am October 12, 2018 12:02am until response; do not exceed 3 doses per episode ondansetron 4 mg disintegrating oral tablet (20 sources) Serotonin-3 Receptor Antagonist Start: 08-30-2023 End: 09-03-2024 take 1 tablet by mouth every six hours as needed ondansetron ODT (Zofran-ODT) 4 MG disintegrating tablet Take 4 mg by mouth every 6 (six) hours if needed 08/30/2023 09/03/2024 Discontinued (Therapy completed) sacubitril / valsartan (20 sources) Angiotensin 2 Receptor Jareth Start: 06-04-2024 End: 10-26-2024 take 1 tablet by mouth twice daily Sacubitril-Valsartan (Entresto) 49-51 mg tablet Discontinued 1 TAB PO Twice daily June 04, 2024 1:00am October 26, 2024 10:45am Start: 06-04-2024 take 1 tablet by edna th twice daily Sacubitril-Valsartan (Entresto) 49-51 mg tablet Active 1 TAB PO Twice daily June 04, 2024 12:00am Start: 06-03-2024 End: 06-03-2025 take 1 tablet by mouth twice daily sacubitriL-valsartan (Entresto) 24-26 mg tablet Indications: Acute on chronic left systolic heart failure Take 1 tablet by mouth 2 times a day. 180 tablet 3 06/03/2024 07/11/2024 Discontinued (Therapy completed) Start: 05-19-2024 End: 09-15-2024 take 1 tablet by mouth in the morning Entresto 24-26 MG tablet Take 1 tablet by mouth in the morning and 1 tablet before bedtime. 05/19/2024 09/15/2024 Discontinued (Therapy completed) End: 07-02-2023 take 1 tablet by mouth twice daily sacubitril-valsartan (ENTRESTO) 24-26 mg tablet Entresto 24 mg-26 mg tablet TAKE 1 TABLET BY MOUTH TWICE DAILY Active Entresto Active Comment on above: Entresto 24 mg-26 mg tablet TAKE 1 TABLET BY MOUTH TWICE DAILY warfarin sodium 5 mg oral tablet (7 sources) Vitamin K Antagonist Start: 06-18-2018 End: 01-14-2019 take 1 tablet by mouth once daily Warfarin (Coumadin) 5 mg tablet Discontinued 5 MG PO Daily June 18, 2018 1:00am January 13, 2019 12:00am January 14, 2019 12:03am Problems Active Problems Problem Classification Problem Date Documented Date Episodic/Chronic Acute cerebrovascular disease (20 sources) Ischemic stroke; Translations: [Cerebral infarction due to unspecified occlusion or stenosis of right posterior cerebral artery] Onset: 04-03-2023 05-25-2023 Chronic Comment on above: March 2023 Acute myocardial infarction (20 sources) Myocardial infarction; Translations: [Non-ST elevation (NSTEMI) myocardial infarction] Onset: 04-02-2024 06-14-2018 Chronic Comment on above: Problem List clean-u p per request of Phys. 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; Translations: [Malignant neoplasm of unspecified site of left female breast] Onset: 04-12-2021 04-12-2021 Chronic Cardiac dysrhythmias (20 sources) Paroxysmal atrial fibrillation; Translations: [Paroxysmal atrial fibrillation] Onset: 06-05-2023 07-02-2023 Chronic Chronic kidney disease (20 sources) Chronic kidney disease stage 3B ; Translations: [Chronic kidney disease, stage 3b (HCC) (CMS/HCC)] Onset: 09-08-2022 05-25-2023 Chronic Conduction disorders (7 sources) Long QT syndrome; Translations: [Long QT syndrome] 06-15-2018 Chronic Comment on above: Problem List clean-u p per request of Phys. [facility] Congestive heart failure; nonhypertensive (12 sources) Heart failure, unspecified; Translations: [Acute on chronic systolic heart failure] Onset: 03-28-2021 07-09-2024 Chronic Coronary atherosclerosis and other heart disease (20 sources) Atherosclerotic heart disease of [place] coronary artery without angina pectoris; Translations: [Old myocardial infarction] Onset: 03-28-2021 06-15-2018 Chronic Comment on above: Problem List clean-u p per request of Phys. [facility] Diabetes mellitus with complications (20 sources) Type 2 diabetes mellitus; Translations: [Type 2 diabetes mellitus with diabetic chronic kidney disease] Onset: 09-08-2022 05-25-2023 Chronic Diabetes mellitus without complication (13 sources) Type 2 diabetes mellitus without complications; Translations: [Diabetes mellitus] Onset: 03-28-2021 06-14-2018 Chronic Comment on above: no longer needs medi cation, well managed Diseases of white blood cells (1 source) Lymphocytosis; Translations: [Lymphocytosis (symptomatic)] Chronic Disorders of lipid metabolism (20 sources) Hyperlipidemia, unspecified; Translations: [Dyslipidemia] Onset: 03-28-2021 05-25-2023 Chronic Essential hypertension (20 sources) Hypertensive disorder; Translations: [Essential (primary) hypertension] Onset: 09-08-2022 06-14-2018 Chronic Comment on above: Problem List clean-u p per request of Phys. EHR Cmte Genitourinary symptoms and ill-defined conditions (2 sources) Dysuria; Translations: [Dysuria] 10-26-2024 Episodic Hypertension with complications and secondary hypertension (1 source) Hypertensive heart disease with heart failure; Translations: [HTN HEART DISEASE W/HEART FAIL] Onset: 03-28-2021 Chronic Immunizations and screening for infectious disease (2 sources) Contact with and (suspected) exposure to other viral communicable diseases; Translations: [Contact with and (suspected) exposure to other viral communicable diseases] Episodic Joint disorders and dislocations; trauma-related (4 sources) Chondromalacia of right patella; Translations: [Chondromalacia patellae, right knee] 10-07-2024 Chronic Late effects of cerebrovascular disease (20 sources) Left hemiparesis; Translations: [Hemiplegia and hemiparesis following cerebral infarction affecting left non-dominant side] Onset: 04-03-2023 05-25-2023 Chronic Osteoarthritis (4 sources) Arthritis of right knee; Translations: [Unilateral primary osteoarthritis, right knee] 10-07-2024 Chronic Other aftercare (1 source) Other superintendent [employer] (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) drug therapy; Translations: [OTH HALF-WAY CURRENT DRUG THERAPY] Onset: 03-28-2021 Episodic Other aftercare (1 source) director long term care (current) use of oral hypoglycemic drugs; Translations: [HALF-WAY USE ORAL HYPOGLYCEMIC DX] Onset: 03-28-2021 Episodic Other aftercare (6 sources) Drug therapy finding; Translations: [director long term care (current) use of anticoagulants] Onset: 07-11-2024 07-11-2024 Episodic Other aftercare (4 sources) penitentiary (current) use of anticoagulants; Translations: [penitentiary (current) use of anticoagulants] Onset: 07-11-2024 Episodic Other aftercare (2 sources) Encounter for follow-up examination after completed treatment for conditions other than malignant neoplasm; Translations: [Encounter for follow-up examination after completed treatment for conditions other than malignant neoplasm] Onset: 05-19-2024 Episodic Other and ill-defined heart disease (7 sources) Takotsubo cardiomyopathy; Translations: [Takotsubo syndrome] 06-15-2018 Chronic Comment on above: Problem List clean-u p per request of Phys. EHR Cmte Other and ill-defined heart disease (7 sources) Left ventricular cardiac dysfunction; Translations: [Heart disease, unspecified] 06-15-2018 Chronic Comment on above: Problem List clean-u p per request of Phys. EHR Cmte Other and ill-defined heart disease (1 source) Takotsubo syndrome; Translations: [Takotsubo syndrome] Onset: 04-02-2024 Chronic Other circulatory disease (2 sources) Raynaud's phenomenon; Translations: [Raynaud's syndrome without gangrene] 05-29-2024 Chronic Other circulatory disease (20 sources) Raynaud's disease; Translations: [Raynaud's syndrome without gangrene] Onset: 06-09-2024 06-04-2024 Chronic Other circulatory disease (6 sources) Abnormal foot pulse; Translations: [Other specified symptoms and signs involving the circulatory and respiratory systems] 03-11-2024 Episodic Other connective tissue disease (3 sources) Foot pain; Translations: [Pain in unspecified foot] 06-11-2024 Episodic Other connective tissue disease (1 source) Pain in unspecified foot; Translations: [Unspecified circulatory system disorder] 06-11-2024 Episodic Other connective tissue disease (2 sources) Pain in left lower limb 06-25-2024 Episodic Other connective tissue disease (4 sources) Pain in right lower limb; Translations: [Pain in right leg] 06-25-2024 Episodic Other connective tissue disease (4 sources) Other symptoms and signs involving the musculoskeletal system; Translations: [Other musculoskeletal symptoms referable to limbs] 06-25-2024 Episodic Other connective tissue disease (1 source) Pain in bilateral legs; Translations: [Pain in right leg] 09-19-2024 Episodic Other hereditary and degenerative nervous system conditions (20 sources) Cerebral ventriculomegaly; Translations: [Degenerative disease of nervous system, unspecified] Onset: 04-03-2023 05-25-2023 Chronic Other lower respiratory disease (6 sources) Blue toes; Translations: [Cyanosis] 03-11-2024 Episodic Other nervous system disorders (5 sources) Numbness; Translations: [Anesthesia of skin] 06-25-2024 Episodic Other non-traumatic joint disorders (4 sources) Pain in right knee; Translations: [Pain in joint, lower leg] 06-25-2024 Episodic Other nutritional; endocrine; and metabolic disorders (2 sources) Body mass index (BMI) 25.0-25.9, adult; Translations: [Body mass index (BMI) 25.0-25.9, adult] Onset: 07-02-2023 Episodic Other screening for suspected conditions (not mental disorders or infectious disease) (9 sources) Encounter for screening mammogram for malignant neoplasm of breast; Translations: [Other abnormal and inconclusive findings on diagnostic imaging of breast] Onset: 05-03-2021 Episodic Other skin disorders (20 sources) Lichen sclerosus et atrophicus; Translations: [Circumscribed scleroderma] Onset: 09-08-2022 09-08-2022 Chronic Other skin disorders (4 sources) Localized swelling, mass and lump, left upper limb; Translations: [LOC SWELL MASS LUMP LT UPPER LIMB] Onset: 03-18-2021 Episodic Other skin disorders (7 sources) Disorder of pigmentation, unspecified; Translations: [Dyschromia, unspecified] Onset: 05-19-2024 06-04-2024 Episodic Other upper respiratory infections (1 source) Acute upper respiratory infection, unspecified Episodic Simi-; endo-; and myocarditis; cardiomyopathy (except that caused by tuberculosis or sexually transmitted disease) (20 sources) Cardiomyopathy; Translations: [Other cardiomyopathies] Onset: 04-04-2024 04-04-2024 Chronic Peripheral and visceral atherosclerosis (3 sources) Atherosclerosis of artery of lower limb; Translations: [Atherosclerosis of [place] arteries of extremities with rest pain, bilateral legs] Onset: 09-24-2024 09-24-2024 Chronic Pulmonary heart disease (20 sources) Pulmonary hypertension, unspecified; Translations: [Other chronic pulmonary heart diseases] Onset: 04-03-2023 05-25-2023 Chronic Residual codes; unclassified (4 sources) Body mass index 20-24 - normal; Translations: [Body mass index (BMI) 24.0-24.9, adult] Onset: 07-11-2024 07-11-2024 Episodic Residual codes; unclassified (2 sources) Body mass index (BMI) 24.0-24.9, adult; Translations: [Body mass index (BMI) 24.0-24.9, adult] Onset: 07-11-2024 Episodic Screening and history of mental health and substance abuse codes (6 sources) Patient encounter status; Translations: [Encounter for screening examination for other mental health and behavioral disorders] 05-14-2023 Episodic Secondary malignancies (1 source) Secondary and unspecified malignant neoplasm of axilla and upper limb lymph nodes; Translations: [SEC AND UNS MAL HARRIETT AX AND UP LMB NODES] Onset: 03-28-2021 Chronic Spondylosis; intervertebral disc disorders; other back problems (3 sources) Lumbar radiculopathy; Translations: [Radiculopathy, lumbar region] 09-19-2024 Episodic Thyroid disorders (11 sources) Hypothyroidism; Translations: [Hypothyroidism, unspecified] Onset: 04-02-2024 04-02-2024 Chronic Unclassified (1 source) CONTACT W/AND (SUSP) EXPOS COVID-19; Translations: [CONTACT W/AND (SUSP) EXPOS COVID-19] Onset: 03-19-2021 Unclassified (2 sources) Abdominal aortic aneurysm, without rupture, unspecified; Translations: [Abdominal aortic aneurysm, without rupture, unspecified] Onset: 04-02-2024 Unclassified (3 sources) Drug therapy finding 07-11-2024 Unclassified (2 sources) Infrarenal abdominal aortic aneurysm, without rupture; Translations: [Infrarenal abdominal aortic aneurysm, without rupture] Onset: 09-24-2024 Past or Other Problems Problem Classification Problem Date Documented Da te Episodic/Chronic Cancer of cervix (20 sources) Atypical squamous cells of undetermined significance on cervical Papanicolaou smear; Translations: [Atypical squamous cells of undetermined significance on cytologic smear of cervix (ASC-US)] Onset: 03-25-2013 Resolved: 05-14-2023 05-14-2023 Episodic Mood disorders (20 sources) Mood disorders Onset: 05-14-2023 Resolved: 09-03-2024 05-14-2023 Other aftercare (6 sources) Treatment changed; Translations: [Other fdc (current) drug therapy] Onset: 07-02-2023 07-02-2023 Episodic Other aftercare (20 sources) Polypharmacy ; Translations: [Other [employer] (current) drug therapy] Onset: 04-23-2024 04-23-2024 Episodic Other aftercare (4 sources) Post-discharge follow-up; Translations: [Encounter for follow-up examination after completed treatment for conditions other than malignant neoplasm] Onset: 05-19-2024 05-19-2024 Episodic Other circulatory disease (20 sources) History of cardiomyopathy; Translations: [Personal history of other diseases of the circulatory system] Onset: 09-08-2022 09-08-2022 Episodic Other eye disorders (4 sources) Dermatochalasis of unspecified eye, unspecified eyelid; Translations: [DERMATOCHALASIS UNS EYE UNS EYELID] Onset: 11-02-2020 Episodic Other gastrointestinal disorders (20 sources) Slow transit constipation; Translations: [Slow transit constipation] Onset: 09-08-2022 09-08-2022 Episodic Other nervous system disorders (20 sources) 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; Translations: [White matter disease, unspecified] Onset: 04-03-2023 05-25-2023 Episodic Other nutritional; endocrine; and metabolic disorders (7 sources) Overweight in adulthood with body mass index of 25 or more but less than 30; Translations: [Body mass index (BMI) 25.0-25.9, adult] Onset: 07-02-2023 07-02-2023 Episodic Other skin disorders (4 sources) Localized swelling, mass and lump, trunk; Translations: [LOCALIZD SWELLING MASS AND LUMP TRUNK] Onset: 01-24-2021 Episodic Other skin disorders (20 sources) Discoloration of skin; Translations: [Disorder of pigmentation, unspecified] Onset: 06-09-2024 06-04-2024 Episodic Other skin disorders (6 sources) Abnormal foot color; Translations: [Disorder of pigmentation, unspecified] Onset: 05-19-2024 07-09-2024 Episodic Residual codes; unclassified (7 sources) Never smoked tobacco; Translations: [Other specified health status] Onset: 07-02-2023 07-02-2023 Episodic Residual codes; unclassified (9 sources) Other specified health status; Translations: [Other drug allergy] Onset: 07-02-2023 07-02-2023 Episodic Unclassified (6 sources) Onset: 07-02-2023 Resolved: 07-11-2024 07-02-2023 Unclassified (2 sources) Bilateral leg weakness 06-25-2024 Unclassified (2 sources) Right leg weakness 06-25-2024 Unclassified (2 sources) Acute pain of right knee 06-25-2024 Unclassified (1 source) Abdominal aortic aneurysm, without rupture, unspecified; Translations: [Abdominal aortic aneurysm, without rupture, unspecified] Onset: 07-09-2024 Unclassified (1 source) Infrarenal abdominal aortic aneurysm, without rupture; Translations: [Infrarenal abdominal aortic aneurysm, without rupture] Onset: 09-24-2024 Results Test Name Value Interpretation Reference Range Facility No Panel Informationon 10-07 HAYLEE Raines 10/07/2024 9:50 AM L Inj/Asp: [...] discussed. Consent was given by the patient. [facility] CTA ABDOMEN PELVIS W CONTRAS Ton 09-25-2024 EXAMINATION: CTA OF THE ABDOMEN AND PELVIS [...] by: Kayleen Muñoz MD 09/25/24 Final result [facility] Radiology, Radiologi MD aliza - 09/25/2024 EXAMINATION: CTA OF THE ABDOMEN [...] by: Kayleen Muñoz MD 09/25/24 Final result [facility] CTA ABDOMEN PELVIS W CONTRAST EXAMINATION: CTA OF THE ABDOMEN AND PELVIS [...] by: Kayleen Muñoz MD 09/25/24 Final result Normal [facility] Radiology Study observation (narrative) [facility] CTA ABDOMEN PELVIS W CONTRAS TOrdered By: Radiologist Radiology on 09-25-2024 [facility] [employer] Work Phone: CTA Abdominal vessels and Pe lvis vessels W contrast Michael 09-25-2024 1. Infrarenal abdomi nal aortic aneurysm measuring 4.5 x 4.9 cm. [...] (2018): 2-77. J Am [facility] Radiol 2013;10:789-794. [facility] RIS CONSOLIDATED EXAMINATION: CTA OF THE ABDOMEN AND PELVIS [...] or lymphadenopathy. The bilateral hips appear stable. Kayleen Chang MD - 09/25/2024 EXAMINATION: CTA OF THE [...] (2018): 2-77. [facility]iol 2013;10:789-794. [facility] CTA Abdominal vessels and Pe lvis vessels W contrast IVOrdered By: Kayleen Muñoz on 09-25-2024 [facility] Work Phone: CTA Abdominal vessels and Pe lvis vessels W contrast Michael 09-24-2024 Radiology Study observation (narrative) [facility] Creatinineon 09-24-2024 Creatinine [Mass/Vol] 1.8 mg/dL High 0.50 - 0.90 mg/dL [facility] Est, Glom Filt Rate 28 Low - PINF [facility] Comment on above: These results are not intended for use [...] following therapy that affects renal tubular secretion. Interpretation and review of laboratory results Abnormal [facility] Creatinine w/GFRon Creatinine [Mass/Vol] 1.8 mg/dL High 0.50-0.90 [facility] Comment on above: Performed By: #### C REG #### [facility] [address] [place] [address] Software Reverse Engineer: Tenzin Chaudhry MD GFR/1.73 sq M.predicted among non-blacks MDRD (S/P/Bld) [Vol rate/Area] 28 mL/min/{1.73_m2} Low >60 [facility] Comment on above: Result Comment: These results are not intended for [...] following therapy that affects renal tubular secretion. Performed By: #### C REG #### [facility] [address] [place] [address] Software Reverse Engineer: Tenzin Chaudhry MD MHPT CREATININE W/GFRon 09-14 Creatinine [Mass/Vol] 1.8 mg/dL High 0.50 - 0.90 mg/dL [facility] Interpretation and review of laboratory results Abnormal [facility] MHPT EGFR 28 Low - PINF [facility] Comment on above: These results are not intended for use [...] following therapy that affects renal tubular secretion. Original Ordering Provider[facility] lower arterial comp lete [facility] By: Nicholas Ewing on 09-24-2024 Left JESSE 1.12 [employer] Phone: Left arm BP 181 mmHg [employer] Phone: Left dorsalis pedis BP 203 mmHg [employer] Phone: Left posterior tibial 196 mmHg [employer] Phone: Left TBI 0.76 [employer] Phone: Left toe pressure 137 mmHg [employer] Phone: Right JESSE 1.08 [employer] Phone: Right arm BP 180 mmHg [employer] Phone: Right dorsalis pedis BP 179 mmHg [employer] Phone: Right posterior tibial 196 mmHg [employer] Phone: Right TBI 0.65 [facility] Phone: Right toe pressure 118 mmHg [facility] [employer] Work Phone: Jose [facility] [employer] Work Phone: Vascular lower arterial comp lete physiologic Doppler at reston 09-24-2024 Right: JESSE 1.08 is w ithin the normal range. Left: JESSE of 1.12 is within the normal range. JESSE Right side findings: Normal resting JESSE. No change in waveform amplitude post-cold immersion from baseline. Right PVR waveforms: Normal [...] dorsalis pedis artery has multiphasic (normal) waveforms. [facility] CV CPACS Radiology Study observation (narrative) [facility] [employer] Abdominal Aorta for nimisha alvarado 07-09-2024 Preliminary Cardiolo gy Report [address], [address] [place] [address] Preliminary Vascular Lab Report [facility] ABDOMINAL AORTA ANEURYSM AAA SCREENING Patient Name: OJHANNY Shrestha Physician: [id number] Holland Byrne MD, [facility] Study Date: 07/09/2024 Ordering Provider: [id number] ELOISE GALICIA MRN/PID: [id number] Fellow: Technologist: Anna Marie Mckinney RDCS, T Date of : 1940 Technologist 2: Gender: F Admission Status: Outpatient Location Performed: [facility] Diagnosis/ICD: Abdominal aortic aneurysm, without rupture, unspecified-I71.40 Indication: HTN, CHF, Discoloration of Let Foot CPT Codes: 48260 Ultrasound, abdominal aorta, real time with image documentation, screening study for (AAA) PRELIMINARY CONCLUSIONS: Imaging & Doppler Findings: AORTA AP Lateral PSV Proximal 2.51 cm 2.18 cm 30.0 cm/s Mid 2.06 cm 3.17 cm 33.0 cm/s Distal 4.91 cm 4.92 cm 24.0 cm/s RIGHT AP Lateral PSV SHMUEL Proximal 1.78 cm 1.85 cm 21.00 cm/s LEFT AP Lateral PSV SHMUEL Proximal 1.39 cm 1.18 cm 51.00 cm/s VASCULAR PRELIMINARY REPORT completed by Anna Marie Mckinney RDCS, RVT on 07/09/2024 at 2:08:24 PM Final Radiology, Radiologisabela abrams MD - 07/09/2024 Preliminary Cardiology Report [address], [address] [address] Preliminary Vascular Lab Report [facility] US ABDOMINAL AORTA ANEURYSM AAA SCREENING Patient Name: JOHANNY Henrietta Physician: [id number] Holland Byrne MD, [facility] Study Date: 07/09/2024 Ordering Provider: [id number] ELOISE GALICIA MRN/PID: [id number] Fellow: Technologist: Anna Marie Mckinney RDCS, RVT Date of : 1940 Technologist 2: Gender: F Admission Status: Outpatient Location Performed: [facility] Diagnosis/ICD: Abdominal aortic aneurysm, without rupture, unspecified-I71.40 Indication: HTN, CHF, Discoloration of Let Foot CPT Codes: 63728 Ultrasound, abdominal aorta, real time with image documentation, screening study for (AAA) PRELIMINARY CONCLUSIONS: Imaging & Doppler Findings: AORTA AP Lateral PSV Proximal 2.51 cm 2.18 cm 30.0 cm/s Mid 2.06 cm 3.17 cm 33.0 cm/s Distal 4.91 cm 4.92 cm 24.0 cm/s RIGHT AP Lateral PSV SHMUEL Proximal 1.78 cm 1.85 cm 21.00 cm/s LEFT AP Lateral PSV SHMUEL Proximal 1.39 cm 1.18 cm 51.00 cm/s VASCULAR PRELIMINARY REPORT completed by Anna Marie Mckinney RDCS, RVT on 07/09/2024 at 2:08:24 PM Final [facility] Radiology Study observation (narrative) [facility] US Abdominal Aorta for nimisha Retana By: Radiologist Radiology on 07-09-2024 [facility] Work Phone: VAS US ABDOMINAL AORTA ANEU RYSM AAA SCREENINGon 07-09-2024 VAS US ABDOMINAL AORTA ANEURYSM AAA SCREENING [address], [address], [place] [address] Vascular Lab Report [facility] US ABDOMINAL AORTA ANEURYSM AAA SCREENING Patient Name: JOHANNY FORBES Reading Physician: [id number] Holland Byrne MD, [facility] Study Date: 07/09/2024 Ordering Provider: [id number] ELOISE GALICIA MRN/PID: [id number] Fellow: Technologist: Anna Marie Mckinney RDCS, RVT Date of /Age: 1 1940 / years Technologist 2: Gender: F Admission Status: Outpatient Location Performed: [facility] Diagnosis/ICD: Abdominal aortic aneurysm, without rupture, unspecified-I71.40 Indication: HTN, CHF, Discoloration of Let Foot CPT Codes: 62258 Ultrasound, abdominal aorta, real time with image documentation, screening study for (AAA) CONCLUSIONS: Aorta/Common Iliac Arteries/IVC: Distal abdominal aortic aneurysm measures 4.9 x 4.9 cm in the AP/transverse diameter respectively and 7.5 cm in length with layered thrombus. No previous studies are available for comparison. Please correlate clinically. Imaging & Doppler Findings: AORTA AP Lateral PSV Proximal 2.51 cm 2.18 cm 30.0 cm/s Mid 2.06 cm 3.17 cm 33.0 cm/s Distal 4.91 cm 4.92 cm 24.0 cm/s RIGHT AP Lateral PSV SHMUEL Proximal 1.78 cm 1.85 cm 21.00 cm/s LEFT AP Lateral PSV SHMUEL Proximal 1.39 cm 1.18 cm 51.00 cm/s [id number] Holland Byrne MD, FACC Final [facility] XR Knee - right 1 or 2 Views on 06-25-2024 Imaging Result: AP and lateral of right knee showed varus deformity. There was narrowing of the medial joint line with evidence of flattening of the articular surfaces to the medial tibial plateau and medial femoral condyle. There was evidence of subchondral sclerosis to the medial joint line and patellofemoral joint. There is marginal osteophytes noted to the medial joint line and patellofemoral joint. There is no evidence of fracture dislocations. Bony structures viewed showed appropriate ossification. Impression: Mild varus deforming arthritic degeneration , right knee. No acute bony process noted. [facility] Radiology Study observation (narrative) [facility] US ankle/arm indiceson 06-05 US ankle/arm indices [facility] Main [place]ort [address] [place] [address] Ultrasound Report Signed Patient: Johanny Forbes MR#: [id number] : 1940 Acct:[id number] Age/Sex: 84 / F ADM Date: 06/04/24 Loc: ER Room: Type: [facility] ER Attending Dr: Ordering Provider: Scott Ojeda DO Date of Service: 06/04/24 US/US ankle/arm indices: toes turning purple Copies to: Scott Ojeda DO LOWER EXTREMITY SEGMENTAL ARTERIAL DOPSCAN (PVR) INDICATION: Right second toe wound. PROCEDURE: Right arm blood pressure is 183 , left is 180 . Pressures at the right ankle are 185 using the posterior tibial artery, and 188 using the dorsalis pedis artery with ankle-brachial index of 1.01 1.03 . Pressures at the left ankle are 202 using the posterior tibial artery, and 177 with ankle- brachial index of 1.10 0.97 . Wave forms by plethysmography are normal. US/US ankle/arm indices IMPRESSION: NO HEMODYNAMICALLY SIGNIFICANT PERIPHERAL VASCULAR OCCLUSIVE DISEASE AT REST IN EITHER LOWER EXTREMITY. Impression dictated by: Mehrdad Leonard MD06/05/2024 8:38 AM Dictation Location: [place] [address] Tech: Marcia Kristian Transcribed By: GABRIEL 06/05/24837 Dictated By: Mehrdad Leonard MD 06/05/24836 Signed By: 06/05/24837 Normal [facility] Basic Metabolic Panelon 05-17 Anion gap [Moles/Vol] 12.2 mmol/L Normal 6.0-15.0 [facility] Comment on above: Performed By: #### B MP, CBC #### [address] Calcium [Mass/Vol] 9.8 mg/dL Normal 8.6-10.3 [facility] Comment on above: Performed By: #### B MP, CBC #### [address] Chloride [Moles/Vol] 104 mmol/L Normal 98-107 [facility] Comment on above: Performed By: #### B MP, CBC #### [address] CO2 [Moles/Vol] 24.1 mmol/L Normal 21.0-31.0 [facility] Comment on above: Performed By: #### B MP, CBC #### [address] Creatinine [Mass/Vol] 1.61 mg/dL High 0.60-1.20 [facility] Comment on above: Performed By: #### B MP, CBC #### [place] [address] [place] Creatinine Clr Calc Pharmacy 24.01 Normal [facility] Comment on above: Result Comment: PERF ORMED BY: [place] [id number] PATHOLOGIST CATERING SOUS CHEF ANKUSH FARMER M.D. Performed By: #### B MP, CBC #### [place] [address] [place] Estimated GFR 31.566 mL/Min Normal [facility] Comment on above: Performed By: #### B MP, CBC #### [facility] [address] Glucose [Mass/Vol] 131 mg/dL High 70-100 [facility] Comment on above: Result Comment: [place] Glucose Reference Range is dependent on time and content of last meal. Glucose of more than 200 mg/dL in a nonstressed, ambulatory subject supports the diagnosis of Diabetes Mellitus. ADA recommended reference range Performed By: #### B MP, CBC #### [facility] [address] Potassium [Moles/Vol] 4.3 mmol/L Normal 3.5-5.1 [facility] Comment on above: Performed By: #### B MP, CBC #### [address] Sodium [Moles/Vol] 136 mmol/L Normal 136-145 [facility] Comment on above: Performed By: #### B MP, CBC #### [address] Urea nitrogen [Mass/Vol] 32 mg/dL High 7-25 [facility] Comment on above: Performed By: #### B MP, CBC #### [place] [address] [place] Basophils Auto (Bld) [#/Vol] Ordered By: Scott Ojeda on 06-04-2024 Basophils (Bld) [#/Vol] Automated basophil count 0.0-0.2 [facility] Basophils/100 WBC Auto (Bld) Ordered By: Scott Ojeda on 06-04-2024 Basophils/100 WBC (Bld) Automated basophil % . [facility] Calcium [Mass/volume] in Ser um or PlasmaOrdered By: Scott Ojeda on 06-04-2024 Calcium [Mass/Vol] Calcium [Mass/volume ] in Serum or Plasma 8.6-10.3 [facility] Carbon dioxide, total [Moles /volume] in Serum or PlasmaOrdered By: Scott Ojeda on 06-04-2024 CO2 [Moles/Vol] Carbon dioxide, tota l [Moles/volume] in Serum or Plasma 21.0-31.0 [facility] Chloride [Moles/volume] in S gerardo or PlasmaOrdered By: Scott Ojeda on 06-04-2024 Chloride [Moles/Vol] Chloride [Moles/vol ume] in Serum or Plasma 98-107 [facility] Coagulation Profileon 2024 aPTT Coag (Bld) [Time] 36.0 s Normal 25.1-36.5 [facility] Comment on above: Order Comment: REDRA W Quantity not sufficient. Please resubmit. Result Comment: A he matocrit value greater than 55% may lead to inaccurate results in coagulation testing. Patients having hematocrit values >55% require a special collection tube for coagulation studies. Please contact the laboratory at [phone] for redraw instructions. PERFORMED BY: [place] [address] PATHOLOGIST CATERING SOUS CHEF ANKUSH FARMER M.D. Performed By: #### P P #### [facility] [address] [place], [place] [id number] [facility] INR Coag (PPP) [Relative time] 1.3 {INR} Normal [facility] Comment on above: Order Comment: REDRA W Quantity not sufficient. Please resubmit. Result Comment: INR Therapeutic Range A) Pre- [...] 3 - 4.5 Performed By: #### P P #### [facility] [address] [place] [address] [place] PT Coag (PPP) [Time] 14.2 s High 9.0-12.9 [facility] Comment on above: Order Comment: REDRA W Quantity not sufficient. Please resubmit. Result Comment: A he matocrit value greater than 55% may lead to inaccurate results in coagulation testing. Patients having hematocrit values >55% require a special collection tube for coagulation studies. Please contact the laboratory at [phone] for redraw instructions. Performed By: #### P P #### [address] Complete Blood Count Auto Di ffon 06-04-2024 Basophils (Bld) [#/Vol] 0.1 10*3/uL Normal 0.0-0.2 [facility] Comment on above: Result Comment: PERF ORMED BY: [place] [address] PATHOLOGIST CATERING SOUS CHEF ANKUSH FARMER M.D. Performed By: #### B MP, CBC #### [address] Basophils/100 WBC (Bld) 0.7 % Normal . [facility] Comment on above: Performed By: #### B MP, CBC #### [address] Eosinophils (Bld) [#/Vol] 0.7 10*3/uL High 0.0-0.45 [facility] Comment on above: Performed By: #### B MP, CBC #### [address] [address] Eosinophils/100 WBC (Bld) 8.2 % Normal . [facility] Comment on above: Performed By: #### B MP, CBC #### [address] Erythrocyte distribution width (RBC) [Ratio] 14.1 % Normal 11.9-15.3 [facility] Comment on above: Performed By: #### B MP, CBC #### [address] Hematocrit (Bld) [Volume fraction] 35.3 % Normal 34.0-46.4 [facility] Comment on above: Performed By: #### B MP, CBC #### [address] Hemoglobin (Bld) [Mass/Vol] 12.2 g/dL Normal 11.8-15.4 [facility] Comment on above: Performed By: #### B MP, CBC #### [address] Lymphocytes (Bld) [#/Vol] 2.7 10*3/uL Normal 1.00-4.8 [facility] Comment on above: Performed By: #### B MP, CBC #### [address] Lymphocytes/100 WBC (Bld) 31.4 % Normal . [facility] Comment on above: Performed By: #### B MP, CBC #### [address] MCH (RBC) [Entitic mass] 31.3 pg Normal 24.7-34.3 [facility] Comment on above: Performed By: #### B MP, CBC #### [address] MCV (RBC) [Entitic vol] 90.2 fL Normal 80-100 [facility] Comment on above: Performed By: #### B MP, CBC #### [address] Mean Corpuscular HGB Conc 34.7 g/dL Normal 32.0-35.0 [facility] Comment on above: Performed By: #### B MP, CBC #### [address] Monocytes (Bld) [#/Vol] 0.4 10*3/uL Normal 0.0-0.8 [facility] Comment on above: Performed By: #### B MP, CBC #### [place] [address] [place] Monocytes/100 WBC (Bld) 18.78 % Normal 0.00-20.00 [facility] Comment on above: Performed By: #### B MP, CBC #### [address] Monocytes/100 WBC (Bld) 4.4 % Normal . [facility] Comment on above: Performed By: #### B MP, CBC #### [facility] [address] [place] [address] [place] Neutrophils (Bld) [#/Vol] 4.7 10*3/uL Normal 1.8-7.7 [facility] Comment on above: Performed By: #### B MP, CBC #### [facility] [address] [place] [address] [place] Neutrophils/100 WBC (Bld) 55.3 % Normal . [facility] Comment on above: Performed By: #### B MP, CBC #### [facility] [address] [place] [address] [place] NRBC% 0.1 /100{WBC} Normal 0-0.5 [facility] Comment on above: Performed By: #### B MP, CBC #### [facility] [address] [place] [id number] [place] Platelet mean volume (Bld) [Entitic vol] 8.2 fL Normal 6.3-10.7 [facility] Comment on above: Performed By: #### B MP, CBC #### [facility] [address] [place] [address] [place] Platelets (Bld) [#/Vol] 227 10*3/uL Normal 150-450 [facility] Comment on above: Performed By: #### B MP, CBC #### [facility] [address] [place] [address] [place] RBC (Bld) [#/Vol] 3.92 10*6/uL Normal 3.60-5.00 [facility] Comment on above: Performed By: #### B MP, CBC #### [facility] [address] [place] [address] [place] WBC (Bld) [#/Vol] 8.5 10*3/uL Normal 3.8-11.6 [facility] Comment on above: Performed By: #### B MP, CBC #### [facility] [address] [place] [address] [place] Creatinine [Mass/volume] in Serum or PlasmaOrdered By: Scott Ojeda on 06-04-2024 Creatinine [Mass/Vol] Creatinine [Mass/v olume] in Serum or Plasma High 0.60-1.20 [facility] Eosinophils Auto (Bld) [#/Vo l]Ordered By: Scott Ojeda on 06-04-2024 Eosinophils (Bld) [#/Vol] Automated eosinophil count High 0.0-0.45 [facility] Eosinophils/100 WBC Auto (Bl d)Ordered By: Scott Ojeda on 06-04-2024 Eosinophils/100 WBC (Bld) Automated eosinophil % . [facility] Erythrocyte distribution wid th Auto (RBC) [Ratio]Ordered By: Scott Ojeda on 06-04-2024 Erythrocyte distribution width (RBC) [Ratio] Erythrocyte distribution width [Ratio] by Automated count 11.9-15.3 [facility] Glucose [Mass/volume] in Ser um or PlasmaOrdered By: Scott Ojeda on 06-04-2024 Glucose [Mass/Vol] Glucose [Mass/volume ] in Serum or Plasma High 70-100 [facility] Comment on above: ADA recommended refe rence rangeRandom Glucose Reference Range is dependent on time and content of last meal. Glucose of more than 200 mg/dL in a nonstressed, ambulatory subject supports the diagnosis of Diabetes Mellitus. Hematocrit Auto (Bld) [Volum e fraction]Ordered By: Scott Ojeda on 06-04-2024 Hematocrit (Bld) [Volume fraction] Hematocrit [Volume Fraction] of Blood by Automated count 34.0-46.4 [facility] Hemoglobin [Mass/volume] in BloodOrdered By: Scott Ojeda 06-04-2024 Hemoglobin (Bld) [Mass/Vol] Hemoglobin [Mass/volume] in Blood 11.8-15.4 [facility] INR in Platelet poor plasma by Coagulation assayOrdered By: Scott Ojeda on 06-04-2024 INR Coag (PPP) [Relative time] INR in Platelet poor plasma by Coagulation assay [facility] Comment on above: INR Therapeutic Rang [...] with mechanical heart valves: 3 - 4.5 Leukocytes [#/volume] correc maryjane for nucleated erythrocytes in Blood by Automated counOrdered By: Scott Ojeda on 06-04-2024 WBC corrected for nucl RBC Auto (Bld) [#/Vol] Leukocytes [#/volume] corrected for nucleated erythrocytes in Blood by Automated coun 3.8-11.6 [facility] Lymphocytes Auto (Bld) [#/Vo l]Ordered By: Scott Ojeda on 06-04-2024 Lymphocytes (Bld) [#/Vol] Lymphocytes [#/volume] in Blood by Automated count 1.00-4.8 [facility] Lymphocytes/100 WBC Auto (Bl d)Ordered By: Scott Ojeda on 06-04-2024 Lymphocytes/100 WBC (Bld) Lymphocytes/100 leukocytes in Blood by Automated count . [facility] MCH Auto (RBC) [Entitic mass ]Ordered By: Scott Ojeda on 06-04-2024 MCH (RBC) [Entitic mass] MCH [Entitic mass] by Automated count 24.7-34.3 [facility] MCHC Auto (RBC) [Mass/Vol]Or dered By: Scott Ojeda on 06-04-2024 MCHC (RBC) [Mass/Vol] MCHC [Mass/volume] by Automated count 32.0-35.0 [facility] MCV Auto (RBC) [Entitic vol] Ordered By: Scott Ojeda on 06-04-2024 MCV (RBC) [Entitic vol] MCV [Entitic volume] by Automated count 80-100 [facility] Monocyte distribution width [Entitic volume] in Blood by AutomatedOrdered By: Scott Ojeda on 06-04-2024 Monocyte distribution width Auto (Bld) [Entitic vol] Monocyte distribution width [Entitic volume] in Blood by Automated 0.00-20.00 [facility] Monocytes Auto (Bld) [#/Vol] Ordered By: Scott Ojeda on 06-04-2024 Monocytes (Bld) [#/Vol] Automated blood monocyte count 0.0-0.8 [facility] Monocytes/100 WBC Auto (Bld) Ordered By: Scott Ojeda on 06-04-2024 Monocytes/100 WBC (Bld) Automated monocyte % . [facility] Neutrophils Auto (Bld) [#/Vo l]Ordered By: Scott Ojeda on 06-04-2024 Neutrophils (Bld) [#/Vol] Neutrophils [#/volume] in Blood by Automated count 1.8-7.7 [facility] Neutrophils/100 WBC Auto (Bl d)Ordered By: Scott Ojeda on 06-04-2024 Neutrophils/100 WBC (Bld) Automated neutrophil % . [facility] No Panel InformationOrdered By: Scott Ojeda on 06-04-2024 Estimated GFR (CKD-EPI) 31.566 mL/Min [facility] Creatinine Clearance (Chem 24.01 [facility] Nucleated erythrocytes [Pres ence] in Blood by Automated countOrdered By: Scott Ojeda on 06-04-2024 Nucleated RBC Auto Ql (Bld) Nucleated erythrocytes [Presence] in Blood by Automated count 0-0.5 [facility] Platelet mean volume Auto (B ld) [Entitic vol]Ordered By: Scott Ojeda on 06-04-2024 Platelet mean volume (Bld) [Entitic vol] Platelet mean volume [Entitic volume] in Blood by Automated count 6.3-10.7 [facility] Platelets Auto (Bld) [#/Vol] Ordered By: Scott Ojeda on 06-04-2024 Platelets (Bld) [#/Vol] Platelets [#/volume] in Blood by Automated count 150-450 [facility] Potassium [Moles/volume] in Serum or PlasmaOrdered By: Scott Ojeda on 06-04-2024 Potassium [Moles/Vol] Potassium [Moles/v olume] in Serum or Plasma 3.5-5.1 [facility] Prothrombin time (PT)Ordered By: Scott Ojeda on 06-04-2024 PT Coag (PPP) [Time] Prothrombin time (PT) High 9.0- 12.9 [facility] Comment on above: A hematocrit value g reater than 55% may lead to inaccurate results in coagulation testing. Patients having hematocrit values >55% require a special collection tube for coagulation studies. Please contact the laboratory at [phone] for redraw instructions. RBC Auto (Bld) [#/Vol]Ordere d By: Scott Ojeda on 06-04-2024 RBC (Bld) [#/Vol] Erythrocytes [#/volu me] in Blood by Automated count 3.60-5.00 [facility] Serum or plasma anion gap de terminationOrdered By: Scott Ojeda on 06-04-2024 Anion gap [Moles/Vol] Serum or plasma an ion gap determination 6.0-15.0 [facility] Sodium [Moles/volume] in Ser um or PlasmaOrdered By: Scott Ojeda on 06-04-2024 Sodium [Moles/Vol] Sodium [Moles/volume ] in Serum or Plasma 136-145 [facility] Urea nitrogen [Mass/volume] in Serum or PlasmaOrdered By: Scott Ojeda on 06-04-2024 Urea nitrogen [Mass/Vol] Urea nitrogen [Mass/volume] in Serum or Plasma High 7-25 [facility] WBC Auto (Bld) [#/Vol]Ordere d By: Scott Ojeda on 06-04-2024 WBC (Bld) [#/Vol] Leukocytes [#/volume ] in Blood by Automated count 3.8-11.6 [facility] aPTT in Platelet poor plasma by Coagulation assayOrdered By: Scott Ojeda on 06-04-2024 aPTT Coag (PPP) [Time] Activated partial thromboplastin time (aPTT) in platelet poor plasma by coagulation a 25.1-36.5 [facility] Comment on above: A hematocrit value g reater than 55% may lead to inaccurate results in coagulation testing. Patients having hematocrit values >55% require a special collection tube for coagulation studies. Please contact the laboratory at [phone] for redraw instructions. ALL BASIC METABOLIC PANELon 05-29-2024 Anion gap [Moles/Vol] 12.3 mmol/L [facility] Calcium [Mass/Vol] 9 mg/dL 8.5 - 10. 1 mg/dL [facility] Chloride [Moles/Vol] 104 mmol/L 98 - 10 7 mmol/L [facility] CO2 [Moles/Vol] 26.7 mmol/L 21.0 - 32.0 mmol/L [facility] Creatinine [Mass/Vol] 2.11 mg/dL High 0.55 - 1.02 mg/dL [facility] GFR/1.73 sq M.predicted CKD-EPI (S/P/Bld) [Vol rate/Area] 27 Low >=60 mL/min/1.7 3m 2 [facility] Glucose [Mass/Vol] 287 mg/dL High 74 - 106 mg/dL [facility] Interpretation and review of laboratory results Abnormal [facility] Potassium [Moles/Vol] 5 mmol/L 3.5 - 5.1 mmol/L [facility] Sodium [Moles/Vol] 138 mmol/L 136 - 145 mmol/L [facility] TBH EGFR-NON AF [place] 22 Low >=60 mL/min/1.7 3m 2 [facility] Urea nitrogen [Mass/Vol] 46 mg/dL High 7.0 - 18.0 mg/dL [facility] Urea nitrogen/Creatinine [Mass ratio] 21.8 mg/mg [facility] echo limited [facility] echo [facility] [place] [address] Echocardiogram Signed Patient: Johanny Forbes MR#: [id number] : 1940 Acct:[id number] Age/Sex: 84 / F ADM Date: 05/19/24 Loc: Room: Type: [facility] Attending Dr: Eloise Galicia MD Ordering Provider: Eloise Galicia MD Date of Service: 05/19/24/ [facility] echo limited: HX: OF RI, CHF Copies to: MD Esther Simpson MD Ordering Physician: Eloise Galicia Height: 63 in Weight: 142 lb Performed By: Cecile Beckford RDCS BSA: 1.7 m2 BP: 126/60 mmHg HR: 56 Reason For Study: rule out thrombus.HX: of RI, CHF History: Takotsubo Syndrome. DM. HTN. Aflutter. HLD. CKD. CAD. Abdominal Aortic Aneurysm. CVA. RI. Family history of CAD. Interpretation Summary The [...] 1536 Signed By: Esther Hagan MD 05/19/24 1702 Normal [facility] echo transthoracicon [facility] echo transthoracic [facility] [address] Echocardiogram Signed Patient: Johanny Forbes MR#: [id number] : 1940 Acct:[id number] Age/Sex: 83 / F ADM Date: 04/02/24 Loc: Room: [address] [place] [address] Type: ADM IN Attending Dr: Gordo Fagan MD Ordering Provider: Gordo Fagan MD Date of Service: 04/03/24 [facility] echo transthoracic: ACS, NSTEMI Copies to: Holland Byrne MD, [facility] Gordo Fagan MD Height: 63 in [...] V1 VTI: 20.4 cm ___ Transcribed By: SCSophia Performed At: 04/04/24 0901 Signed By: Holland Byrne MD, [facility] 04/04/24 1051 Normal [facility] Anti-Xa UF Heparinon 024 Anti-Xa UF Heparin 0.69 [IU]/mL Normal 0.30-0.70 [facility] Comment on above: Order Comment: DRAW AT 0645 Result Comment: Use the aPTT protocol when triglycerides are > 800 mg/dL, total bilirubin is > 20 mg/dL and/or patient has received a DOAC, Fondaparinux or LMWH within 72 hours AND baseline anti-Xa level is > 0.7 units/mL PERFORMED BY: [address] [address] PATHOLOGIST CATERING SOUS CHEF ANKUSH FARMER M.D. Performed By: #### U EP #### [place] [id number] [place] Basic Metabolic Panelon 12-1 Anion gap [Moles/Vol] 11.4 mmol/L Normal 6.0-15.0 [facility] Comment on above: Performed By: #### U FHEP #### [address] Calcium [Mass/Vol] 8.5 mg/dL Low 8.6-10.3 [facility] Comment on above: Performed By: #### U FHEP #### [address] Chloride [Moles/Vol] 108 mmol/L High 98-107 [facility] Comment on above: Performed By: #### U FHEP #### [address] CO2 [Moles/Vol] 23.8 mmol/L Normal 21.0-31.0 [facility] Comment on above: Performed By: #### U FHEP #### [address] Creatinine [Mass/Vol] 1.44 mg/dL High 0.60-1.20 [facility] Comment on above: Performed By: #### U FHEP #### [address] Creatinine Clr Calc Pharmacy 27.31 Normal [facility] Comment on above: Performed By: #### U FHEP #### [address] Estimated GFR 36.314 mL/Min Normal [facility] Comment on above: Performed By: #### U FHEP #### [address] Glucose [Mass/Vol] 180 mg/dL High 70-100 [facility] Comment on above: Result Comment: [place] Glucose Reference Range is dependent on time and content of last meal. Glucose of more than 200 mg/dL in a nonstressed, ambulatory subject supports the diagnosis of Diabetes Mellitus. ADA recommended reference range Performed By: #### U FHEP #### [facility] [address] Potassium [Moles/Vol] 4.2 mmol/L Normal 3.5-5.1 [facility] Comment on above: Performed By: #### U FHEP #### [facility] [address] Sodium [Moles/Vol] 139 mmol/L Normal 136-145 [facility] Comment on above: Performed By: #### U FHEP #### [facility] [address] Urea nitrogen [Mass/Vol] 25 mg/dL Normal 7-25 [facility] Comment on above: Performed By: #### U FHEP #### [facility] [address] Basophils Auto (Bld) [#/Vol] Ordered By: Yelitza Brock on 04-03-2024 Basophils (Bld) [#/Vol] Automated basophil count 0.0-0.2 [facility] Basophils/100 WBC Auto (Bld) Ordered By: Yelitza Brock on 04-03-2024 Basophils/100 WBC (Bld) Automated basophil % . [facility] Calcium [Mass/volume] in Ser um or PlasmaOrdered By: Yelitza Brock on 04-03-2024 Calcium [Mass/Vol] Calcium [Mass/volume ] in Serum or Plasma Low 8.6-10.3 [facility] Carbon dioxide, total [Moles /volume] in Serum or PlasmaOrdered By: Yelitza Brock on 04-03-2024 CO2 [Moles/Vol] Carbon dioxide, tota l [Moles/volume] in Serum or Plasma 21.0-31.0 [facility] Chloride [Moles/volume] in S gerardo or PlasmaOrdered By: Yelitza Brock on 04-03-2024 Chloride [Moles/Vol] Chloride [Moles/vol ume] in Serum or Plasma High 98-107 [facility] Cholesterol [Mass/volume] in Serum or PlasmaOrdered By: Yelitza Brock on 04-03-2024 Cholesterol [Mass/Vol] Cholesterol [Mass /volume] in Serum or Plasma High 140-200 [facility] Comment on above: Chol less than 200 m g/dl low riskChol 201-239 mg/dl borderline riskChol 240 mg/dl and greater high risk Cholesterol in HDL [Mass/vol ume] in Serum or PlasmaOrdered By: Yelitza Brock on 04-03-2024 Cholesterol in HDL [Mass/Vol] Serum or plasma high density lipoprotein (HDL) cholesterol measurement 23- [facility] Comment on above: HDL CHOL ATP-III CLA SSIFICATION Cardiovascular RiskHDL > or equal to 60 mg/dL LOWHDL < 40 mg/dL HIGH Cholesterol in LDL Calc [Mas s/Vol]Ordered By: Yelitza Brock on 04-03-2024 Cholesterol in LDL [Mass/Vol] Cholesterol in LDL [Mass/volume] in Serum or Plasma by calculation High 0-100 [facility] Comment on above: LDL ATP III CLASSIFI CATIONLDL less than 100 mg/dL OptimalLDL 100-129 mg/dL Near or above optimalLDL 130-159 mg/dL Borderline highLDL 160-189 mg/dL HighLDL greater than 189 mg/dL Very high Cholesterol in VLDL Calc [Ma ss/Vol]Ordered By: Yelitza Brock on 04-03-2024 Cholesterol in VLDL [Mass/Vol] Cholesterol in VLDL [Mass/volume] in Serum or Plasma by calculation [facility] Complete Blood Count Auto Di ffon 04-03-2024 Basophils (Bld) [#/Vol] 0.1 10*3/uL Normal 0.0-0.2 [facility] Comment on above: Result Comment: PERF ORMED BY: [place] [address] PATHOLOGIST CATERING SOUS CHEF ANKUSH FARMER M.D. Performed By: #### U FHEP #### [facility] [address] [place] [address] [place] Basophils/100 WBC (Bld) 0.7 % Normal . [facility] Comment on above: Performed By: #### U FHEP #### [facility] [address] [place] [address] [place] Eosinophils (Bld) [#/Vol] 0.6 10*3/uL High 0.0-0.45 [facility] Comment on above: Performed By: #### U FHEP #### [address] Eosinophils/100 WBC (Bld) 6.3 % Normal . [facility] Comment on above: Performed By: #### U FHEP #### [address] Erythrocyte distribution width (RBC) [Ratio] 14.0 % Normal 11.9-15.3 [facility] Comment on above: Performed By: #### U FHEP #### [address] Hematocrit (Bld) [Volume fraction] 32.1 % Low 34.0-46.4 [facility] Comment on above: Performed By: #### U FHEP #### [address] Hemoglobin (Bld) [Mass/Vol] 10.9 g/dL Low 11.8-15.4 [facility] Comment on above: Performed By: #### U FHEP #### [address] Lymphocytes (Bld) [#/Vol] 3.5 10*3/uL Normal 1.00-4.8 [facility] Comment on above: Performed By: #### U FHEP #### [address] Lymphocytes/100 WBC (Bld) 36.7 % Normal . [facility] Comment on above: Performed By: #### U FHEP #### [address] MCH (RBC) [Entitic mass] 30.3 pg Normal 24.7-34.3 [facility] Comment on above: Performed By: #### U FHEP #### [address] MCV (RBC) [Entitic vol] 88.9 fL Normal 80-100 [facility] Comment on above: Performed By: #### U FHEP #### [address] [place] [address] [place] Mean Corpuscular HGB Conc 34.1 g/dL Normal 32.0-35.0 [facility] Comment on above: Performed By: #### U FHEP #### [address] Monocytes (Bld) [#/Vol] 0.5 10*3/uL Normal 0.0-0.8 [facility] Comment on above: Performed By: #### U FHEP #### [address] Monocytes/100 WBC (Bld) 5.3 % Normal . [facility] Comment on above: Performed By: #### U FHEP #### [address] Neutrophils (Bld) [#/Vol] 4.9 10*3/uL Normal 1.8-7.7 [facility] Comment on above: Performed By: #### U FHEP #### [address] Neutrophils/100 WBC (Bld) 51.0 % Normal . [facility] Comment on above: Performed By: #### U FHEP #### [address] NRBC% 0.1 /100{WBC} Normal 0-0.5 [facility] Comment on above: Performed By: #### U FHEP #### [address] Platelet mean volume (Bld) [Entitic vol] 8.2 fL Normal 6.3-10.7 [facility] Comment on above: Performed By: #### U FHEP #### [place] [address] [place] Platelets (Bld) [#/Vol] 214 10*3/uL Normal 150-450 [facility] Comment on above: Performed By: #### U FHEP #### [place] [address] [place] RBC (Bld) [#/Vol] 3.61 10*6/uL Normal 3.60-5.00 [facility] Comment on above: Performed By: #### U FHEP #### [facility] [address] WBC (Bld) [#/Vol] 9.6 10*3/uL Normal 3.8-11.6 [facility] Comment on above: Performed By: #### U FHEP #### [facility] [address] Creatinine [Mass/volume] in Serum or PlasmaOrdered By: Yelitza Brock on 04-03-2024 Creatinine [Mass/Vol] Creatinine [Mass/v olume] in Serum or Plasma High 0.60-1.20 [facility] Eosinophils Auto (Bld) [#/Vo l]Ordered By: Yelitza Brock on 04-03-2024 Eosinophils (Bld) [#/Vol] Automated eosinophil count High 0.0-0.45 [facility] Eosinophils/100 WBC Auto (Bl d)Ordered By: Yelitza Brock on 04-03-2024 Eosinophils/100 WBC (Bld) Automated eosinophil % . [facility] Erythrocyte distribution wid th Auto (RBC) [Ratio]Ordered By: Yelitza Brock on 04-03-2024 Erythrocyte distribution width (RBC) [Ratio] Erythrocyte distribution width [Ratio] by Automated count 11.9-15.3 [facility] Glucose [Mass/volume] in Ser um or PlasmaOrdered By: Yelitza Brock on 04-03-2024 Glucose [Mass/Vol] Glucose [Mass/volume ] in Serum or Plasma High 70-100 [facility] Comment on above: ADA recommended refe rence rangeRandom Glucose Reference Range is dependent on time and content of last meal. Glucose of more than 200 mg/dL in a nonstressed, ambulatory subject supports the diagnosis of Diabetes Mellitus. Hematocrit Auto (Bld) [Volum e fraction]Ordered By: Yelitza Brock on 04-03-2024 Hematocrit (Bld) [Volume fraction] Hematocrit [Volume Fraction] of Blood by Automated count Low 34.0-46.4 [facility] Hemoglobin [Mass/volume] in BloodOrdered By: Yelitza Brock on 04-03-2024 Hemoglobin (Bld) [Mass/Vol] Hemoglobin [Mass/volume] in Blood Low 11.8-15.4 [facility] Heparin anti-Xa unfractionat edOrdered By: Yelitza Brock on 04-03-2024 Heparin unfractionated Chromogenic method Qn (PPP) Heparin anti-Xa unfractionated 0.30-0.70 [facility] Comment on above: Use the aPTT [...] erythrocytes in Blood by Automated coun 3.8-11.6 [facility] Lipid Panelon 04-03-2024 Cholesterol [Mass/Vol] 211 mg/dL High 140-200 [facility] Comment on above: Result Comment: Chol less than 200 mg/dl low risk Chol 201-239 mg/dl borderline risk Chol 240 mg/dl and greater high risk Performed By: #### U FHEP #### [facility] [address] [id number] [place] Cholesterol in HDL [Mass/Vol] 25 mg/dL Normal 23-92 [facility] Comment on above: Result Comment: HDL CHOL ATP-III CLASSIFICATION Cardiovascular Risk HDL > or equal to 60 mg/dL LOW HDL < 40 mg/dL HIGH Performed By: #### U FHEP #### [facility] [address] [place] [address] [place] Cholesterol.total/Chol esterol in HDL [Mass ratio] 8.4 {ratio} Normal <5.0 [facility] Comment on above: Performed By: #### U FHEP #### [facility] [address] [place] [address] [place] LDL Cholesterol,Calculated 142 mg/dL High 0-100 [facility] Comment on above: Result Comment: LDL ATP III CLASSIFICATION LDL less than 100 mg/dL Optimal LDL 100-129 mg/dL Near or above optimal LDL 130-159 mg/dL Borderline high LDL 160-189 mg/dL High LDL greater than 189 mg/dL Very high Performed By: #### U FHEP #### [address] Triglyceride w/Reflex 221 mg/dL High 0-149 [facility] Comment on above: Result Comment: TRIG ATP III CLASSIFICATION TRIG less than 150 mg/dL Normal TRIG 150-199 mg/dL Borderline high TRIG 200-500 mg/dL High TRIG greater than 500 mg/dL Very high Standard traceable to the Center for Disease Conrtrol and Prevention (CDC) test method. Performed By: #### U FHEP #### [address] VLDL CHOLESTEROL 44 mg/dL Normal [facility] Comment on above: Performed By: #### U FHEP #### [address] Lymphocytes Auto (Bld) [#/Vo l]Ordered By: Yelitza Brock on 04-03-2024 Lymphocytes (Bld) [#/Vol] Lymphocytes [#/volume] in Blood by Automated count 1.00-4.8 [facility] Lymphocytes/100 WBC Auto (Bl d)Ordered By: Yelitza Brock on 04-03-2024 Lymphocytes/100 WBC (Bld) Lymphocytes/100 leukocytes in Blood by Automated count . [facility] MCH Auto (RBC) [Entitic mass ]Ordered By: Yelitza Brock on 04-03-2024 MCH (RBC) [Entitic mass] MCH [Entitic mass] by Automated count 24.7-34.3 [facility] MCHC Auto (RBC) [Mass/Vol]Or dered By: Yelitza Brock on 04-03-2024 MCHC (RBC) [Mass/Vol] MCHC [Mass/volume] by Automated count 32.0-35.0 [facility] MCV Auto (RBC) [Entitic vol] Ordered By: Yelitza Brock on 04-03-2024 MCV (RBC) [Entitic vol] MCV [Entitic volume] by Automated count 80-100 [facility] Magnesiumon 04-03-2024 Magnesium [Mass/Vol] 2.0 mg/dL Normal 1.9-2.7 [facility] Comment on above: Performed By: #### U FHEP #### [facility] [address] Magnesium [Mass/volume] in S gerardo or PlasmaOrdered By: Yelitza Brock on 04-03-2024 Magnesium [Mass/Vol] Magnesium [Mass/vol ume] in Serum or Plasma 1.9-2.7 [facility] Monocytes Auto (Bld) [#/Vol] Ordered By: Yelitza Brock on 04-03-2024 Monocytes (Bld) [#/Vol] Automated blood monocyte count 0.0-0.8 [facility] Monocytes/100 WBC Auto (Bld) Ordered By: Yelitza Brock on 04-03-2024 Monocytes/100 WBC (Bld) Automated monocyte % . [facility] Neutrophils Auto (Bld) [#/Vo l]Ordered By: Yelitza Brock on 04-03-2024 Neutrophils (Bld) [#/Vol] Neutrophils [#/volume] in Blood by Automated count 1.8-7.7 [facility] Neutrophils/100 WBC Auto (Bl d)Ordered By: Yelitza Brock on 04-03-2024 Neutrophils/100 WBC (Bld) Automated neutrophil % . [facility] No Panel InformationOrdered By: Yelitza Brock on 04-03-2024 Estimated GFR (CKD-EPI) 36.314 mL/Min [facility] Creatinine Clearance (Chem 27.31 [facility] Nucleated erythrocytes [Pres ence] in Blood by Automated countOrdered By: Yelitza Brock on 04-03-2024 Nucleated RBC Auto Ql (Bld) Nucleated erythrocytes [Presence] in Blood by Automated count 0-0.5 [facility] Platelet mean volume Auto (B ld) [Entitic vol]Ordered By: Yelitza Brock on 04-03-2024 Platelet mean volume (Bld) [Entitic vol] Platelet mean volume [Entitic volume] in Blood by Automated count 6.3-10.7 [facility] Platelets Auto (Bld) [#/Vol] Ordered By: Yelitza Brock on 04-03-2024 Platelets (Bld) [#/Vol] Platelets [#/volume] in Blood by Automated count 150-450 [facility] Potassium [Moles/volume] in Serum or PlasmaOrdered By: Yelitza Brock on 04-03-2024 Potassium [Moles/Vol] Potassium [Moles/v olume] in Serum or Plasma 3.5-5.1 [facility] RBC Auto (Bld) [#/Vol]Ordere d By: Yelitza Brock on 04-03-2024 RBC (Bld) [#/Vol] Erythrocytes [#/volu me] in Blood by Automated count 3.60-5.00 [facility] Serum or plasma anion gap de terminationOrdered By: Yelitza Brock on 04-03-2024 Anion gap [Moles/Vol] Serum or plasma an ion gap determination 6.0-15.0 [facility] Serum or plasma total choles terol/high density lipoprotein (HDL) cholesterol mass ratOrdered By: Yelitza Brock on 04-03-2024 Cholesterol.total/Chol esterol in HDL [Mass ratio] Serum or plasma total cholesterol/high density lipoprotein (HDL) cholesterol mass rat <5.0 [facility] Sodium [Moles/volume] in Ser um or PlasmaOrdered By: Yelitza Brock on 04-03-2024 Sodium [Moles/Vol] Sodium [Moles/volume ] in Serum or Plasma 136-145 [facility] Thyroid Stimulating Hormoneo n 04-03-2024 TSH Qn 5.21 m[IU]/L Normal 0.45-5.33 [facility] Comment on above: Result Comment: PERF ORMED BY: [place] [address] PATHOLOGIST CATERING SOUS CHEF ANKUSH FARMER M.D. Performed By: #### U EP #### [address] Thyrotropin [Units/volume] i n Serum or PlasmaOrdered By: Yelitza Brock on 04-03-2024 TSH Qn Thyrotropin [Units/volume] in Serum or Plasma 0.45-5.33 [facility] Triglyceride [Mass/volume] i n Serum or PlasmaOrdered By: Yelitza Brock on 04-03-2024 Triglyceride [Mass/Vol] Triglyceride [Mass/volume] in Serum or Plasma High 0-149 [facility] Comment on above: TRIG ATP III CLASSIF ICATIONTRIG less than 150 mg/dL NormalTRIG 150-199 mg/dL Borderline highTRIG 200-500 mg/dL High TRIG greater than 500 mg/dL Very highStandard traceable to the Center for Disease Conrtrol and Prevention (CDC) test method. Troponin I High Sensitivityo n 04-03-2024 Troponin I High Sensitivity 2896.3 pg/mL Off scale high 0.0-15.0 [facility] Comment on above: Result Comment: Crit ical Result : Called to and read back by: MIGUEL REBOLLEDO at: 04/03/2024 05:12:11 by:[id number] PERFORMED BY: [place] [address] PATHOLOGIST CATERING [employer] FARMER M.D. Performed By: #### U FHEP #### [address] Troponin I.cardiac [Mass/vol ume] in Serum or Plasma by Detection limit <= 0.01 ng/Ordered By: Yelitza Brock on 04-03-2024 Troponin I.cardiac DL <= 0.01 ng/mL [Mass/Vol] Troponin I.cardiac [Mass/volume] in Serum or Plasma by Detection limit <= 0.01 ng/ Critically high 0.0-15.0 [facility] Comment on above: Critical Result : Ca lled to and read back by: MIGUEL REBOLLEDO at: 04/03/2024 05:12:11 by:[id number] Urea nitrogen [Mass/volume] in Serum or PlasmaOrdered By: Yelitza Brock on 04-03-2024 Urea nitrogen [Mass/Vol] Urea nitrogen [Mass/volume] in Serum or Plasma 7- [facility] WBC Auto (Bld) [#/Vol]Ordere d By: Yelitza Brock on 04-03-2024 WBC (Bld) [#/Vol] Leukocytes [#/volume ] in Blood by Automated count 3.8-11.6 [facility] Anti-Xa UF Heparinon 024 Anti-Xa UF Heparin 0.34 [IU]/mL Normal 0.30-0.70 [facility] Comment on above: Result Comment: Use the aPTT protocol when triglycerides are > 800 mg/dL, total bilirubin is > 20 mg/dL and/or patient has received a DOAC, Fondaparinux or LMWH within 72 hours AND baseline anti-Xa level is > 0.7 units/mL PERFORMED BY: [place] [address] PATHOLOGIST CATERING S[employer] ANKUSH FARMER M.D. Performed By: #### U FHEP #### [address] ECG 12 lead ECGon 04-02-2024 ECG 12 lead ECG [facility] [place] [address] [place] [address] Electrocardiograph Report Signed Patient: Johanny Forbes MR#: [id number] : 1940 Acct:[id number] Age/Sex: 83 / F ADM Date: 04/02/24 Loc: Room: [address] [place] [address] Type: ADM IN Attending Dr: Gordo Fagan MD Ordering Provider: Ngoc Wolf MD Date of Service: 04/02/24 ECG/ECG 12 lead ECG: transfer from [facility] Copies to: Test Reason : Blood Pressure [...] now present QT has lengthened Confirmed by HOLLAND BYRNE MD, FACC ([id number]) on 04/03/2024 1:26:16 PM Referred By: Electronically Signed By: HOLLAND SARAVIAC Transcribed By: MUS Signed By Holland Byrne MD, [facility] 04/03/24 1326 Normal [facility] INR in Platelet poor plasma by Coagulation assayOrdered By: Yelitza Brock on 04-02-2024 INR Coag (PPP) [Relative time] INR in Platelet poor plasma by Coagulation assay [facility] Comment on above: INR Therapeutic Rang [...] [Time] 32.6 s Normal 25.1-36.5 [facility] Comment on above: Result Comment: A he matocrit value greater than 55% may lead to inaccurate results in coagulation testing. Patients having hematocrit values >55% require a special collection tube for coagulation studies. Please contact the laboratory at [phone] for redraw instructions. PERFORMED BY: [place] [address] PATHOLOGIST CATERING [employer] ANKUSH FARMER M.D. Performed By: #### P T, PTT #### [facility] [address] [place] [address] Prothrombin Time INRon 04-02 INR Coag (PPP) [Relative time] 1.1 {INR} Normal [facility] Comment on above: Result Comment: [...] 3 - 4.5 Performed By: #### P T, PTT #### [facility] [address] [place] [address] PT Coag (PPP) [Time] 12.8 s Normal 9.0-12.9 [facility] Comment on above: Result Comment: A he matocrit value greater than 55% may lead to inaccurate results in coagulation testing. Patients having hematocrit values >55% require a special collection tube for coagulation studies. Please contact the laboratory at [phone] for redraw instructions. Performed By: #### P T, PTT #### [facility] [address] Prothrombin time (PT)Ordered By: Yelitza Brock on 04-02-2024 PT Coag (PPP) [Time] Prothrombin time (PT) 9.0- 12.9 [facility] Comment on above: A hematocrit value g reater than 55% may lead to inaccurate results in coagulation testing. Patients having hematocrit values >55% require a special collection tube for coagulation studies. Please contact the laboratory at [phone] for redraw instructions. aPTT in Platelet poor plasma by Coagulation assayOrdered By: Yelitza Brock on 04-02-2024 aPTT Coag (PPP) [Time] Activated partial thromboplastin time (aPTT) in platelet poor plasma by coagulation a 25.1-36.5 [facility] Comment on above: A hematocrit value g reater than 55% may lead to inaccurate results in coagulation testing. Patients having hematocrit values >55% require a special collection tube for coagulation studies. Please contact the laboratory at [phone] for redraw instructions. ALBUMIN, RANDOM URINE W/CREA KESHAV 03-05-2024 ALBUMIN, URINE 0.8 mg/dL Normal See Note: [facility] Comment on above: Result Comment: Refe rence Range: Reference Range Not established Performed By: #### 6 517, 496 #### [facility] [address], [address] [place] [id number] Paper Roller: César Dunn MD ALBUMIN/CREATININE RATIO, RANDOM URINE [...] #### 6 517, 496 #### [facility] [address], [address] [place] [address] Paper Roller: César Dunn MD Creatinine (U) [Mass/Vol] 49 mg/dL Normal 20-275 [facility] Comment on above: Performed By: #### 6 517, 496 #### [facility] [address], [address] [place] [address] Paper Roller: César Dunn MD HEMOGLOBIN A1con 03-05-2024 HEMOGLOBIN [...] #### 6 517, 496 #### [facility] [address], [address] [place] [address] Paper Roller: César Dunn MD TRANSTHORACIC E[facility]TTE) [facility] TRANSTHORACIC ECHO (TTE) COMPLETE [address], [address] [place] [address] TRANSTHORACIC ECHOCARDIOGRAM REPORT Patient Name: JOHANNY ANDREI Reading Physician: [id number] Esther Hagan MD Study Date: 08/09/2023 Ordering Provider: [id number] ELOISE GALICIA MRN/PID: [id number] Fellow: Nurse: Date of /Age: 1 1940 / 83 years Pipe [place]: OMAR Burleson RDCST Gender: F Additional Staff: Height: 160.02 cm [...] HTN CPT Codes: Echo Complete w Full Doppler-92177 Study Detail: The following Echo studies were [...] mmHg PIEDV: 2.05 m/s PADP: 19.8 mmHg [id number] Esther Hagan MD Electronically signed on 08/09/2023 at 6:28:33 PM Final [facility] US Heart TransthoracicOrdere d By: Esther Hagan on 08-09-2023 Aortic Valve Area by Continuity of Peak Velocity 1.88 cm2 [facility] Work Phone: Aortic Valve Area by Continuity of VTI 2.03 cm2 [facility] Work Phone: AV mn grad 3.0 mmHg [facility] Work Phone: [phone] AV pk grad 6.9 mmHg [facility] Work Phone: [phone] AV pk lore 1.31 m/s [facility] Work Phone: LV A4C EF 61.9 [facility] Work Phone: [phone] LVIDd 3.76 cm [facility] Work Phone: LVOT diam 2.20 cm [facility] Work Phone: [phone] MV avg E/e' ratio 9.00 [facility] Work Phone: [phone] MV E/A ratio 0.65 [facility] Work Phone: RVSP 21.0 mmHg [facility] Work Phone: [phone] [facility] Work Phone: Heart Transthoracicon [address], [address] [place] [address] TRANSTHORACIC ECHOCARDIOGRAM REPORT Patient Name: JOHANNY FORBES Henrietta Physician: [id number] Esther Hagan MD Study Date: 08/09/2023 Ordering Provider: [id number] ELOISE GALICIA MRN/PID: [id number] Fellow: Nurse: Date of /Age: 1 1940 / 83 years Pipe [place]: Anna Marie Mckinney RDCS, RVT Gender: F [...] HTN CPT Codes: Echo Complete w Full Doppler-07715 Study Detail: The following Echo studies were [...] not included)... Esther Casey MD - 08/09/[address], [address] [place] [address] TRANSTHORACIC ECHOCARDIOGRAM REPORT Patient Name: JOHANNY FORBES Reading Physician: [id number] Esther Hagan MD Study Date: 08/09/2023 Ordering Provider: [id number] ELOISE GALICIA MRN/PID: [id number] Fellow: Nurse: Date of /Age: 1 1940 / 83 years Pipe [place]: Anna Marie Mckinney RDCS, RVT Gender: F [...] HTN CPT Codes: Echo Complete w Full Doppler-54429 Study Detail: The following Echo studies were [...] mmHg PIEDV: 2.05 m/s PADP: 19.8 mmHg [id number] Esther Hagan MD Electronically signed on 08/09/2023 at 6:28:33 PM Final [facility] Work Phone: ECG 12 [place] 07-07-2023 EKG today shows norm al sinus rhythm at 80 bpm AZ interval 154 ms QRS duration 104 ms QTc 449 ms minimal voltage criteria for left ventricular hypertrophy pattern of septal myocardial infarction [facility] Work Phone: CNPKenia 05-15-2022 CNPMaria Alejandra Telephone (NCCAP) ----- JOHANNY FORBES ([id number]) 1940 F Date Time Provider Department 05/15/22 SIMIN LAMA During your visit today, we recorded the following information about you: Honey Tucker 05/15/2022 1:42 PM Signed Patient is currently at [facility] for her Mammogram. Chrissie is calling to request a new order. 1) Diagnostic Bilateral Mammogram 2) US order (that way they have it if needed) ABDIFATAH/Amarilys: If in agreement, can you please place order PERLITA and I will fax back to her? Thanks! Chrissie: Ph. [phone] Fax. [phone] Hoeny Lama MD 05/15/2022 2:11 PM Signed Ordered Honey Tucker 05/15/2022 2:15 PM Signed Faxed order to Chrissie May 15, 2022 2:15 PM Honey Semon Honey Mayeyvonne 05/15/2022 2:15 PM Signed Faxed order to [...] left (HCC) [C50.912, C77.3] Order(s):DANIELLE DIAGNOSTIC BILAT [[id number]] Order #: [id number] FUTURE US BREAST LTD LT [[id number]] Order #: [id number] FUTURE US BREAST LTD RT [[id number]] Order #: [id number] FUTURE Prescriptions as of 05/15/2022 - aspirin [...] Encounter Status:Closed by HONEY TUCKER on 05/15/22 [facility] CNPN Telephone (HEMASA) ----- DILLAN FORBESH ([id number]) 1940 F Date Time Provider Department 05/15/22 RU THOMAS During your visit today, we recorded the following information about you: Ru Thomas RN 05/15/2022 2:19 PM Signed Received call from pt stating she is at [facility] and needs mammogram orders sent. Orders faxed [...] Encounter Status:Closed by RU THOMAS on 05/15/22 [facility] COVID/FLU RT-PCRon 2 SARS-CoV-2 (COVID-19) RNA DEIDRE+probe Ql (Unsp spec) Negative [employer] Other COVID/FLU RT-PCR Negative [facility] [employer] Other An[facility] 02-13-2022 CNPN Telephone (HEMTSA) ----- JOHANNY FORBES ([id number]) 1940 F Date Time Provider Department 02/13/22 [...] Encounter Status:Closed by SHIVA REYES on 02/13/22 [facility] CNOVSPon 01-31-2022 CNOVSP Visit (SP) Office (HEMASA) ----- JOHANNY FORBES ([id number]) 1940 F Date Time Provider Department 01/31/22 3:15 PM SIMIN LAMA During your visit today, we recorded the following information about you: Temperature Pulse Respiration Blood pressure 97.3 degrees 62/minute 16/minute 142/65 Weight Height 70 kg 1.589 m Simin Lama MD 01/31/2022 3:38 PM Signed PATIENT NAME: Johanny Forbes CLINIC NO.: [id number] ATTENDING PHYSICIAN: Simin Lama MD DATE OF [...] metastatic breast carcinoma, 5 cm, ER 0, AZ 0, HER-2 0 by IHC. The tissue was not evaluated for flow cytometry to rule out a lymphoproliferative process. 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 Differential included mammary, skin, urothelial, pancreaticobiliary and pulmonary primaries. ER 0, AZ 0, HER-2 negative by [facility]. 2021 PET [...] (more content not included)... [facility] ([facility]) ----- JOHANNY FORBES ([id number]) 1940 F Date Time Provider Department 01/31/22 SIMIN LAMA [facility] During your visit today, we recorded the following information about you: Honey Tucker 01/31/2022 4:[address] Lama, patient had a previous abnormal L Mammogram and never followed up. He would like L Mammogram completed now. Faxed order to [facility] scheduling per patient's hospital request. Honey Juan [...] Encounter Status:Closed by HONEY TUCKER on 02/01/22 [facility] Aniket 01-30-2022 CNPN Telephone (HEMTSA) ----- ANDREIJOHANNY ([id number]) 1940 F Date Time Provider Department 01/30/22 AMANDA NORRIS During your visit today, we recorded the following information about you: Amanda Norris RN 01/30/2022 2:32 PM Signed Patient had [...] PM Signed That's fine with me Amanda Norris RN 01/30/2022 3:12 PM Signed Patient notified [...] Fully Assessed Reason for Visit: Patient Question [0355] Prescriptions as of 01/30/2022 - aspirin 81 [...] to axillary lymp*04/12/2021 Encounter Status:Closed by AMANDA NORRIS on 01/30/22 Normal [facility] CNCOon 11-07-2021 CNCO Letter Text Normal [facility] CBC W Auto Differential pane l (Bld)on 07-28-2021 Basophils (Bld) [#/Vol] 0.03 10*3/uL Normal <0.11 [facility] Comment on above: Order Comment: Speci men Type: BLOOD SPECIMENOrdering Facility: [facility] Address: [address] [address] Performed By: #### 5 7021-8 ####[facility] LABCLIA [id number] [place] [address] Basophils/100 WBC (Bld) 0.4 % Normal [facility] Comment on above: Order Comment: Speci men Type: BLOOD SPECIMENOrdering Facility: [facility] Address: [address] [address] Performed By: #### 5 7021-8 ####[facility] LABCLIA [id number] [place] [address] Differential cell count method Nom (Bld) Auto Normal [facility] Comment on above: Order Comment: Speci men Type: BLOOD SPECIMENOrdering Facility: [facility] Address: [address] [place] [address] Performed By: #### 5 7021-8 ####[facility] LABCLIA [id number] [place] [address] Eosinophils (Bld) [#/Vol] 0.29 10*3/uL Normal <0.46 [facility] Comment on above: Order Comment: Speci men Type: BLOOD SPECIMENOrdering Facility: [facility] Address: [address] [place] [address] Performed By: #### 5 7021-8 ####[facility] LABCLIA [id number] [place] [address] Eosinophils/100 WBC (Bld) 3.7 % Normal [facility] Comment on above: Order Comment: Speci men Type: BLOOD SPECIMENOrdering Facility: [facility] Address: [address] [place] [address] Performed By: #### 5 7021-8 ####[facility] LABCLIA [id number] [place] [address] Erythrocyte distribution width (RBC) [Ratio] 13.2 % Normal 11.5-15.0 [facility] Comment on above: Order Comment: Speci men Type: BLOOD SPECIMENOrdering Facility: [facility] Address: [address] [place] [address] Performed By: #### 5 7021-8 ####[facility] LABCLIA [id number] [place] [address] Hematocrit (Bld) [Volume fraction] 37.6 % Normal 36.0-46.0 [facility] Comment on above: Order Comment: Speci men Type: BLOOD SPECIMENOrdering Facility: [facility] Address: [address] [place] [address] Performed By: #### 5 7021-8 ####[facility] LABCLIA [id number] [place] [address] Hemoglobin (Bld) [Mass/Vol] 12.1 g/dL Normal 11.5-15.5 [facility] Comment on above: Order Comment: Speci men Type: BLOOD SPECIMENOrdering Facility: [facility] Address: [address] [place] [address] Performed By: #### 5 7021-8 ####[facility] LABIA [id number] [place] [address] IMMATURE GRAN % 0.3 % Normal [facility] Comment on above: Order Comment: Speci men Type: BLOOD SPECIMENOrdering Facility: [facility] Address: [address] [place] [address] Performed By: #### 5 7021-8 ####[facility] LABCLIA [id number] [place] [address] IMMATURE GRAN ABS <0.03 Normal <0.10 [facility] Comment on above: Order Comment: Speci men Type: BLOOD SPECIMENOrdering Facility: [facility] Address: [address] [place] [address] Performed By: #### 5 7021-8 ####[facility] LABCLIA [id number] [place] [address] Lymphocytes (Bld) [#/Vol] 3.28 10*3/uL Normal 1.00-4.00 [facility] Comment on above: Order Comment: Speci men Type: BLOOD SPECIMENOrdering Facility: [facility] Address: [address] [place] [address] Performed By: #### 5 7021-8 ####[facility] LABCLIA [id number] [place] [address] Lymphocytes/100 WBC (Bld) 41.8 % Normal [facility] Comment on above: Order Comment: Speci men Type: BLOOD SPECIMENOrdering Facility: [facility] Address: [address] [place] [address] Performed By: #### 5 7021-8 ####[facility] LABCLIA [id number] [place] [address] MCH (RBC) [Entitic mass] 30.0 pg Normal 26.0-34.0 [facility] Comment on above: Order Comment: Speci men Type: BLOOD SPECIMENOrdering Facility: [facility] Address: [address] [place] [address] Performed By: #### 5 7021-8 ####[facility] LABCLIA [id number] [place] [address] MCHC (RBC) [Mass/Vol] 32.2 g/dL Normal 30.5-36.0 [facility] Comment on above: Order Comment: Speci men Type: BLOOD SPECIMENOrdering Facility: [facility] Address: [address] [place] [address] Performed By: #### 5 7021-8 ####[facility] LABCLIA [id number] [place] [address] MCV (RBC) [Entitic vol] 93.3 fL Normal 80.0-100.0 [facility] Comment on above: Order Comment: Speci men Type: BLOOD SPECIMENOrdering Facility: [facility] Address: [address] [place] [address] Performed By: #### 5 7021-8 ####[facility] LABCLIA [id number] [place] [address] Monocytes (Bld) [#/Vol] 0.46 10*3/uL Normal <0.87 [facility] Comment on above: Order Comment: Speci men Type: BLOOD SPECIMENOrdering Facility: [facility] Address: [address] [place] [address] Performed By: #### 5 7021-8 ####[facility] LABCLIA [id number] [place] [address] Monocytes/100 WBC (Bld) 5.9 % Normal [facility] Comment on above: Order Comment: Speci men Type: BLOOD SPECIMENOrdering Facility: [facility] Address: [address] [place] [address] Performed By: #### 5 7021-8 ####[facility] LABCLIA [id number] [place] [address] Neutrophils (Bld) [#/Vol] 3.77 10*3/uL Normal 1.45-7.50 [facility] Comment on above: Order Comment: Speci men Type: BLOOD SPECIMENOrdering Facility: [facility] Address: [address] [place] [address] Performed By: #### 5 7021-8 ####[facility] LABCLIA [id number] [place] [address] Neutrophils/100 WBC (Bld) 47.9 % Normal [facility] Comment on above: Order Comment: Speci men Type: BLOOD SPECIMENOrdering Facility: [facility] Address: [address] [place] [address] Performed By: #### 5 7021-8 ####[facility] LABCLIA [id number] [place] [address] Nucleated RBC (Bld) [#/Vol] 10*3/uL Normal <0.01 [facility] Comment on above: Order Comment: Speci men Type: BLOOD SPECIMENOrdering Facility: [facility] Address: [address] [place] [address] Performed By: #### 5 7021-8 ####[facility] LABCLIA [id number] [place] [address] Nucleated RBC/100 WBC (Bld) [Ratio] 0.0 /100 WBC Normal [facility] Comment on above: Order Comment: Speci men Type: BLOOD SPECIMENOrdering Facility: [facility] Address: [address] [place] [address] Performed By: #### 5 7021-8 ####[facility] LABCLIA [id number] [place] [address] Platelet mean volume (Bld) [Entitic vol] 10.6 fL Normal 9.0-12.7 [facility] Comment on above: Order Comment: Speci men Type: BLOOD SPECIMENOrdering Facility: [facility] Address: [address] [place] [address] Performed By: #### 5 7021-8 ####[facility] LABCLIA [id number] [place] [address] Platelets (Bld) [#/Vol] 259 10*3/uL Normal 150-400 [facility] Comment on above: Order Comment: Speci men Type: BLOOD SPECIMENOrdering Facility: [facility] Address: [address] [place] [address] Performed By: #### 5 7021-8 ####[facility] LABCLIA [id number] [place] [address] RBC (Bld) [#/Vol] 4.03 10*6/uL Normal 3.90-5.20 [facility] Comment on above: Order Comment: Speci men Type: BLOOD SPECIMENOrdering Facility: [facility] Address: [address] [place], [place] [id number] Performed By: #### 5 7021-8 ####[facility] LABCLIA [id number] [place] [address] WBC (Bld) [#/Vol] 7.85 10*3/uL Normal 3.70-11.00 [facility] Comment on above: Order Comment: Speci men Type: BLOOD SPECIMENOrdering Facility: [facility] Address: [address] [place] [address] Performed By: #### 5 7021-8 ####[facility] LABCLIA [id number] [place] [address] Abs Immature Gran <0.03 <0.10 k/uL [facility] Basophils (Bld) [#/Vol] 0.03 10*3/uL <0.11 k/uL [facility] Basophils/100 WBC (Bld) 0.4 % [facility] Differential cell count method Nom (Bld) Auto [facility] Eosinophils (Bld) [#/Vol] 0.29 10*3/uL <0.46 k/uL [facility] Eosinophils/100 WBC (Bld) 3.7 % [facility] Erythrocyte distribution width (RBC) [Ratio] 13.2 % 11.5 - 15.0 % [facility] Hematocrit (Bld) [Volume fraction] 37.6 % 36.0 - 46.0 % [facility] Hemoglobin (Bld) [Mass/Vol] 12.1 g/dL 11.5 - 15.5 g/dL [facility] Immature Gran % 0.3 % [facility] Lymphocytes (Bld) [#/Vol] 3.28 10*3/uL 1.00 - 4.00 k/uL [facility] Lymphocytes/100 WBC (Bld) 41.8 % [facility] MCH (RBC) [Entitic mass] 30.0 pg 26.0 - 34.0 pg [facility] MCHC (RBC) [Mass/Vol] 32.2 g/dL 30.5 - 36.0 g/dL [facility] MCV (RBC) [Entitic vol] 93.3 fL 80.0 - 100.0 fL [facility] Monocytes (Bld) [#/Vol] 0.46 10*3/uL <0.87 k/uL [facility] Monocytes/100 WBC (Bld) 5.9 % [facility] Neutrophils (Bld) [#/Vol] 3.77 10*3/uL 1.45 - 7.50 k/uL [facility] Neutrophils/100 WBC (Bld) 47.9 % [facility] Nucleated RBC (Bld) [#/Vol] 10*3/uL <0.01 k/uL [facility] Nucleated RBC/100 WBC (Bld) [Ratio] 0.0 /100 WBC [facility] Platelet mean volume (Bld) [Entitic vol] 10.6 fL 9.0 - 12.7 fL [facility] Platelets (Bld) [#/Vol] 259 10*3/uL 150 - 400 k/uL [facility] RBC (Bld) [#/Vol] 4.03 10*6/uL 3.90 - 5.20 m/uL [facility] WBC (Bld) [#/Vol] 7.85 10*3/uL 3.70 - 11.00 k/uL [facility] CNOVSPon 07-28-2021 CNOVSP Visit (SP) Office ([place]) ----- JOHANNY FORBES ([id number]) 1940 F Date Time Provider Department 07/28/21 [...] metastatic breast carcinoma, 5 cm, ER 0, [place] 0, HER-2 0 by IHC. The tissue was not evaluated for flow cytometry to rule out a lymphoproliferative process. 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 Differential included mammary, skin, urothelial, pancreaticobiliary and pulmonary primaries. ER 0, [place] 0, HER-2 negative by CAMERON. ? 2021 [...] today. Fo (more content not included)... Normal [facility] Comprehensive metabolic 2000 panelon 07-28-2021 Albumin [Mass/Vol] 4.2 g/dL Normal 3.9-4.9 [facility] Comment on above: Order Comment: Speci men Type: BLOOD SPECIMENOrdering Facility: [facility] Address: [address] [address] Performed By: #### 2 4323-8 ####[facility] LABCLIA [id number] [place] [address] ALP [Catalytic activity/Vol] 72 U/L Normal 34-123 [facility] Comment on above: Order Comment: Speci men Type: BLOOD SPECIMENOrdering Facility: [facility] Address: [address] Performed By: #### 2 4323-8 ####[facility] LABCLIA [id number] [place] [address] ALT [Catalytic activity/Vol] 7 U/L Normal 7-38 [facility] Comment on above: Order Comment: Speci men Type: BLOOD SPECIMENOrdering Facility: [facility] Address: [address] [place], [place] [address] Performed By: #### 2 4323-8 ####[facility] LABCLIA [id number] [place] [address] Anion gap [Moles/Vol] 7 mmol/L Low 9-18 [facility] Comment on above: Order Comment: Speci men Type: BLOOD SPECIMENOrdering Facility: [facility] Address: [address] [place], [place] [address] Performed By: #### 2 4323-8 ####[facility] LABCLIA [id number] [place] [address] AST [Catalytic activity/Vol] 17 U/L Normal 13-35 [facility] Comment on above: Order Comment: Speci men Type: BLOOD SPECIMENOrdering Facility: [facility] Address: [address] [place] [address] Performed By: #### 2 4323-8 ####[facility] LABCLIA [id number] [place] [address] Bilirubin [Mass/Vol] 0.4 mg/dL Normal 0.2-1.3 [facility] Comment on above: Order Comment: Speci men Type: BLOOD SPECIMENOrdering Facility: [facility] Address: [address] [place], [place] [address] Performed By: #### 2 4323-8 ####[facility] LABCLIA [id number] [place] [address] Calcium [Mass/Vol] 9.8 mg/dL Normal 8.5-10.2 [facility] Comment on above: Order Comment: Speci men Type: BLOOD SPECIMENOrdering Facility: [facility] Address: [address] [place], [place] [address] Performed By: #### 2 4323-8 ####[facility] LABCLIA [id number] [place] [address] Chloride [Moles/Vol] 105 mmol/L Normal 97-105 [facility] Comment on above: Order Comment: Speci men Type: BLOOD SPECIMENOrdering Facility: [facility] Address: [address] [place] [address] Performed By: #### 2 4323-8 ####[facility] LABCLIA [id number] [place] [address] CO2 [Moles/Vol] 26 mmol/L Normal 22-30 [facility] Comment on above: Order Comment: Speci men Type: BLOOD SPECIMENOrdering Facility: [facility] Address: [address] [place] [address] Performed By: #### 2 4323-8 ####[facility] LABCLIA [id number] [place] [address] Creatinine [Mass/Vol] 1.31 mg/dL High 0.58-0.96 [facility] Comment on above: Order Comment: Speci men Type: BLOOD SPECIMENOrdering Facility: [facility] Address: [address] [place] [address] Performed By: #### 2 4323-8 ####[facility] LABCLIA [id number] [place] [address] ESTIMATED GLOMERULAR FILTRATION RATE 41 mL/min/1.73m??? Low >=60 [facility] Comment on above: Order Comment: Speci men Type: BLOOD SPECIMENOrdering Facility: [facility] Address: [address] [place] [address] Result Comment: Nereyda mated Glomerular Filtration Rate [...] #### 2 4323-8 ####[facility] LABCLIA [id number] [place] [address] Glucose [Mass/Vol] 129 mg/dL High 74-99 [facility] Comment on above: Order Comment: Speci men Type: BLOOD SPECIMENOrdering Facility: [facility] Address: [address] [place] [address] Result Comment: The [place] Diabetes Association (ADA) provides guidance for cutoff [...] Standards of Medical Care in Diabetes 2016, [place] [employer]. Diabetes Care. 2016.39(Suppl 1). Performed By: #### 2 4323-8 ####[facility] LABCLIA [id number] [place] [address] Potassium [Moles/Vol] 4.6 mmol/L Normal 3.7-5.1 [facility] Comment on above: Order Comment: Speci men Type: BLOOD SPECIMENOrdering Facility: [facility] Address: [address] [place] [address] Performed By: #### 2 4323-8 ####[facility] LABCLIA [id number] [place] [address] Protein [Mass/Vol] 7.5 g/dL Normal 6.3-8.0 [facility] Comment on above: Order Comment: Speci men Type: BLOOD SPECIMENOrdering Facility: [facility] Address: [address] [place] [address] Performed By: #### 2 4323-8 ####[facility] LABCLIA [id number] [place] [address] Sodium [Moles/Vol] 138 mmol/L Normal 136-144 [facility] Comment on above: Order Comment: Speci men Type: BLOOD SPECIMENOrdering Facility: [facility] Address: [address] [place] [address] Performed By: #### 2 4323-8 ####[facility] LABCLIA [id number] [place] [address] Urea nitrogen [Mass/Vol] 22 mg/dL High 7-21 [facility] Comment on above: Order Comment: Speci men Type: BLOOD SPECIMENOrdering Facility: [facility] Address: [address] [place] [address] Performed By: #### 2 4323-8 ####[facility] LABCLIA [id number] [place] [address] FLOW CYTOMETRY REFLEXon 04- CASE REPORT Normal [facility] Comment on above: Order Comment: Speci men Type: BLOOD SPECIMENOrdering Facility: [facility] Address: [address] [place] [address] Result Comment: Flow Cytometry Case: [id number] Authorizing Provider: Drake Anand MD Collected: 07/28/2021 02:03 PM Ordering Location: Laboratory Medicine Received: 07/29/2021 12:43 PM Pathologist: Tang Oquendo MD Specimen: BLOOD Performed By: #### F LOWREFLEX ####[facility] LABCLIA [id number] [address] [place] GROSS DESCRIPTION A. BLOOD. Normal [facility] Comment on above: Order Comment: Speci men Type: BLOOD SPECIMENOrdering Facility: [facility] Address: [address] [place] [address] Result Comment: Rece ived 4ml of peripheral blood in EDTA. Performed By: #### F LOWREFLEX ####[facility] LABCLIA [id number] [facility] [id number] [id number] [place] INTERPRETATION Normal [facility] Comment on above: Order Comment: Speci men Type: BLOOD SPECIMENOrdering Facility: [facility] Address: [address] [place] [address] Result Comment: Spec imen type: BLOOD CBC [...] Negative CD200 B-cells Positive FMC7 B-cells Positive Adelphi/Lambda B-cells Monotypic kappa Flow cytometric analysis of [...] its performance characteristics determined by [facility]???s Vignesh Ballard [facility] Pathology and Laboratory Medicine [place] ([facility]). It has not been cleared or approved by the FDA. [facility] is regulated under CLIA as qualified to perform high-complexity testing. This test is used for clinical purposes. It should not be regarded as investigational or for research. KST/BB 07/29/21 Diagnostic interpretation performed at [facility], [address] [place] [address] CLIA# [id number] Him Analyst: Bharath Light M.D. Performed By: #### F LOWREFLEX ####[facility] LABIA [id number] [address] OF [facility] PERIPHERAL BLOOD LOW GRADE L EUK MARKERS FCon 07-28-2021 FLOW CYTOMETRY ORDER STATUS See Results in chart under F case ID Normal [facility] Comment on above: Order Comment: Speci men Type: BLOOD SPECIMENOrdering Facility: [facility] Address: [address] [place] [address] Performed By: #### P BLGLY ####[facility] LABIA [id number] [address] [place] CNPNon 07-22-2021 CNPN Telephone ([place]) ----- ANDREIJOHANNY ([id number]) 1940 F Date Time Provider Department 07/22/21 RU BLACKMAN During your visit today, we recorded the following information about you: uR Blackman RN 07/22/2021 2:10 PM Signed Received [...] discuss further. She can be reached at [phone]. ROSA ELENA Esteban MD 07/22/2021 2:38 PM Signed I spoke with the patient regarding previous recommendations. I have asked her to come and see me in clinic next week at her convenience. PSS-could you please arrange for that? Thanks, SJK Thao Avel Sec 07/22/2021 2:49 PM Signed Scheduled patient for next week for appointment spoke with gabriel Allergies As of Date: 07/22/2021 Noted Allergy Reaction LISINOPRIL 04/05/2021 16 - Unknown PENICILLINS 04/05/2021 14 - Other: See Comments Comments: Dizzy and passed out Date Reviewed: 05/12/2021 Reviewed by: Grisel Schaffer - Fully Assessed Reason for Visit: Patient Question [7635] Prescriptions as of 07/22/2021 - aspirin 81 [...] Encounter Status:Closed by RU BLACKMAN on 07/22/21 [facility] 07-01-2021 CNPN Telephone ([place]) ----- JOHANNY FORBES ([id number]) 1940 F Date Time Provider Department 07/01/21 RU BLACKMAN During your visit today, we recorded the following information about you: Ru Blackman RN 07/01/2021 2:07 PM Signed Received call from pt wanting to know if Dr Anand got her results for the genetic testing on her tumor? BHUPENDRAK: Any message for pt? Or she can be reached at [phone]. ROSA ELENA Esteban MD 07/01/2021 2:49 PM [...] Status:Closed by RU BLACKMAN on 07/04/21 Normal [facility] MG MAMM DIAGNOSTIC 3D COY CA Don 05-03-2021 MG MAMM DIAGNOSTIC 3D COY CAD Patient: JOHANNY FORBES Exam Date: 05/03/2021 : 1940 Gender:F Ordering : DRAKE ANAND Admission #: [id number] Family : DR JORGE LUIS WHITEHEAD Order #: [id number] CLICK HERE TO VIEW EXAM RADIOLOGY REPORT PROCEDURE: MAMMOGRAM DIAGNOSTIC 3D BILATERAL CAD COMPARISON: MAMMO SCREEN DIG COY, 01/22/2012. INDICATIONS: Secondary malignant neoplasm of axilla Calculator Name NCI Breast Cancer Risk Assessment Tool 5 Year Breast Cancer Risk n/a% Lifetime Breast Cancer Risk n/a% Personal Breast Cancer Yes Personal Ovarian Cancer No Treatments None Family Cancers None LOCATION: [facility] [place] BREAST COMPOSITION: Scattered areas fibroglandular density. FINDINGS: [...] Ferguson MD on 05/03/2021 at 14:29 Normal [facility] [place] PET+CT Guidance for localiza tion of tumor [...] any questions regarding this interpretation, please call [phone]. If you are unable to reach us at the number above, please feel free to contact [facility] at [phone]. DIVISION OF RADIOLOGY * * *Final Report* [...] to recent biopsy. No destructive osseous lesions. Ski Patrol Director (topogram) images: No additional findings. DIVISION OF RADIOLOGY Provider, [facility] - 04/26/2021 * * *Final Report* * [...] to recent biopsy. No destructive osseous lesions. Ski Patrol Director (topogram) images: No additional findings. IMPRESSION IMPRESSION: [...] any questions regarding this interpretation, please call [phone]. If you are unable to reach us at the number above, please feel free to contact [facility] eRadiology at [phone]. [facility] PET+CT Guidance for localiza tion of tumor of Skull base to mid-thigh-- W 18F-FDG IVOrdered By: Ccf Provider on 04-26-2021 [facility], BLOOD (POC)on 04-25 Glucose [Mass/Vol] 155 mg/dL Abnormal 74 - 99 mg/dL [facility] Comment on above: Location:[facility], [address] [place] [address] , [place], [place], [address] The Accu-Chek Inform II glucose meter has [...] 18F-FDG Michael 2021 Radiology Study observation (narrative) [facility] POINT OF CARE GLUCOSEon 12-0 Glucose [Mass/Vol] 169 mg/dL Critically high 74-106 T [facility] Comment on above: Performed By: #### P OCGLUC #### [facility] [address] [place] [address] Dr. Dontae Vallejo CBC AUTO DIFFon 03-14-2021 BASO # 0.1 103/ul Normal 0.0-0.1 [facility] [place] Comment on above: Performed By: #### C BC #### [facility] [address] [place] [address] Dr. Dontae Vallejo Basophils/100 WBC (Bld) 0.6 % Normal 0.2-2.0 [facility] [place] Comment on above: Performed By: #### C BC #### [facility] [address] [place] [address] Dr. Dontae Vallejo EO # 0.4 103/ul Normal 0.0-0.7 [facility] [place] Comment on above: Performed By: #### C BC #### [facility] [address] [place] [address] Dr. Dontae Vallejo Eosinophils/100 WBC (Bld) 4.1 % Normal 0.9-7.0 [facility] [place] Comment on above: Performed By: #### C BC #### [facility] [address] [place] [address] Dr. Dontae Vallejo Erythrocyte distribution width (RBC) [Ratio] 13.1 % Normal 11.0-15.0 [facility] [place] Comment on above: Performed By: #### C BC #### [facility] [address] [place] [address] Dr. Dontae Vallejo Hematocrit (Bld) [Volume fraction] 37.1 % Normal 36.0-48.0 [facility] [place] Comment on above: Performed By: #### C BC #### [facility] [address] [place] [address] Dr. Dontae Vallejo Hemoglobin (Bld) [Mass/Vol] 12.1 g/dL Normal 12.0-16.0 [facility] [place] Comment on above: Performed By: #### C BC #### [facility] [address] [place] [address] Dr. Dontae Vallejo IG # 0.03 10e3/ul Normal 0.00-0.03 [facility] [place] Comment on above: Performed By: #### C BC #### [facility] [address] [place] [address] Dr. Dontae Vallejo IG % 0.3 % Normal 0.0-0.5 [facility] [place] Comment on above: Performed By: #### C BC #### [facility] [address] [place] [address] Dr. Dontae Vallejo LYMPH # 4.5 103/ul Critically high 1.2-3.8 [facility] Comment on above: Performed By: #### C BC #### [facility] [address] [place] [address] Dr. Dontae Vallejo Lymphocytes/100 WBC (Bld) 44.8 % Normal 20.5-60.0 [facility] [place] Comment on above: Performed By: #### C BC #### [facility] [address] [place] [address] Dr. Dontae Vallejo MANUAL DIFF REQ NO Normal [facility] Comment on above: Performed By: #### C BC #### [facility] [address] [place] [address] Dr. Dontae Vallejo MCH (RBC) [Entitic mass] 30.3 pg Normal 26.7-34.0 [facility] [place] Comment on above: Performed By: #### C BC #### [facility] [address] [place] [address] Dr. Dontae Vallejo MCHC (RBC) [Mass/Vol] 32.6 g/dL Normal 29.9-35.2 [facility] Comment on above: Performed By: #### C BC #### [facility] [address] [place] [address] Dr. Dontae Vallejo MCV (RBC) [Entitic vol] 92.8 fL Normal 81.0-99.0 [facility] [place] Comment on above: Performed By: #### C BC #### [facility] [address] [place] [address] Dr. Dontae Vallejo MONO # 0.5 103/ul Normal 0.3-0.8 [facility] Comment on above: Performed By: #### C BC #### [facility] [address] [place] [address] Dr. Dontae Vallejo Monocytes/100 WBC (Bld) 5.3 % Normal 1.7-12.0 [facility] [place] Comment on above: Performed By: #### C BC #### [facility] [address] [place] [address] Dr. Dontae Vallejo NEUT # 4.5 103/ul Normal 1.4-6.5 [facility] Comment on above: Performed By: #### C BC #### [facility] [address] [place] [address] Dr. Dontae Vallejo Neutrophils/100 WBC (Bld) 44.9 % Normal 43.0-75.0 [facility] [place] Comment on above: Performed By: #### C BC #### [facility] [address] [place] [address] Dr. Dontae Vallejo Platelet mean volume (Bld) [Entitic vol] 9.8 fL Normal 9.5-13.5 [facility] Comment on above: Performed By: #### C BC #### [facility] [address] [place] [address] Dr. Dontae Vallejo PLT 251 103/ul Normal 150-450 [facility] Comment on above: Performed By: #### C BC #### [facility] [address] [address] [address] Dontae Vallejo RBC 4.00 106/ul Critically low 4.20-5.40 [facility] Comment on above: Performed By: #### C BC #### [facility] [address] [address] [address] Dontae Vallejo WBC 10.1 103/ul Normal 4.0-11.0 [facility] [facility] [place] Comment on above: Performed By: #### C BC #### [facility] [address] [place] [address] Dr. Dontae Vallejo Covid-19 PCR (CVDTB)on 02-15 SARS-CoV-2 (COVID-19) RNA DEIDRE+probe Ql (Unsp spec) Not detected Normal NOT DETECTED [facility] Comment on above: Result Comment: This test is not yet approved or cleared by the [place] FDA. When there are no FDA-approved or cleared tests available, and other criteria are met, FDA can make tests available under an emergency access mechanism called an Emergency Use Authorization (EUA). The EUA for this test is supported by the [employer] of Health and Human Service's (HHS's) declaration [...] #### C VDTBH #### [facility] [address] [address] [address] Dontae Vallejo PROF CHEM 8 (BAS METB)on Anion gap [Moles/Vol] 10.5 mmol/L Normal [facility] Comment on above: Performed By: #### B MP #### [facility] [address] [address] [address] Dontae Vallejo Calcium [Mass/Vol] 9.5 mg/dL Normal 8.4-10.2 [facility] Comment on above: Performed By: #### B MP #### [facility] [address] [address] [address] Dontae Vallejo Chloride [Moles/Vol] 104 mmol/L Normal 98-107 [facility] [place] Comment on above: Performed By: #### B MP #### [facility] [address] [address] [address] Dontae Vallejo CO2 [Moles/Vol] 26.8 mmol/L Normal 22.0-30.0 [facility] Comment on above: Performed By: #### B MP #### [facility] [address] [address] [address] Dontae Vallejo Creatinine [Mass/Vol] 1.51 mg/dL Critically high 0.52-1.04 [facility] [place] Comment on above: Performed By: #### B MP #### [facility] [address] [address] [address] Dontae Vallejo EGFR-AF SINGAPOREAN 40 mL/min/1.73m2 Critically low >=60 [facility] [place] Comment on above: Performed By: #### B MP #### [facility] [address] [address] [address] Dontae Vallejo EGFR-NON AF SING[place]OREAN 33 mL/min/1.73m2 Critically low >=60 [facility] [place] Comment on above: Performed By: #### B MP #### [facility] [address] [address] [address] Dontae Vallejo Glucose [Mass/Vol] 145 mg/dL Critically high 74-106 [facility] Comment on above: Performed By: #### B MP #### [facility] [address], [place] [address] Dr. Dontae Vallejo Potassium [Moles/Vol] 4.3 mmol/L Normal 3.4-5.0 [facility] [place] Comment on above: Performed By: #### B MP #### [facility] [address], [place] [address] Dr. Dontae Vallejo Sodium [Moles/Vol] 137 mmol/L Normal 137-145 [facility] Comment on above: Performed By: #### B MP #### [facility] [address], [place] [address] Dr. Dontae Vallejo Urea nitrogen [Mass/Vol] 29.0 mg/dL Critically high 7.0-17.0 [facility] [place] Comment on above: Performed By: #### B MP #### [facility] [address], [place] [address] Dr. Dontae Vallejo Urea nitrogen/Creatinine [Mass ratio] 19.2 mg/mg Normal [facility] Comment on above: Performed By: #### B MP #### [facility] [address], [place] [address] Dr. Dontae Vallejo US FINE NDL ASP W US GDNCEon 02-07-2021 US FINE NDL ASP W US GDNCE Begin Addendum #1 COLLECTED DATE/TIME: 01/24/2021 14:27 EDT Final Diagnosis Report for [facility], [place] (A/B) LEFT AXILLA MASS; FINE NEEDLE [...] (FNA). 2. Pathology results are pending. Normal [facility] LEUKEMIA/LYMPHOMA PROFILEon 01-31-2021 ANALYSIS AND GATING STRATEGY Comment Normal [facility] [place] Comment on above: Result Comment: 8 co geri analysis with 7-AAD, CD45/SSC gating Performed at: -Y Performed By: #### F LOWL #### [facility] [address] [place] [address] Dr. Dontae Vallejo ASSESSMENT OF LEUKOCYTES Comment Normal [facility] [place] Comment on above: Result Comment: Ghulam a and lambda staining cannot be interpreted due to nonspecific light chain binding. A subset of T cells show CD10 expression. CD4:CD8 ratio 2.3 Analysis of the viable lymphoid cells shows: B cells 18%, T cells 82% Performed at: -Y Performed By: #### F LOWL #### [facility] [address] [address] [address] Dontae Vallejo COMMENT Comment [facility] Comment on above: Result Comment: Each antibody in this assay was utilized to assess for potential abnormalities of studied cell populations or to characterize identified abnormalities. . This test was developed and its performance characteristics determined by [employer]. It has not been cleared or approved by the [place]. Food and Drug Administration. . The FDA has determined that such clearance or approval is not necessary. This test is used for clinical purposes. It should not be regarded as investigational or for research. Performed at: TG Performed By: #### F LOWL #### [facility] [address] [place] [address] Dr. Dontae Vallejo FLOW COMMENT Comment Normal [facility] [place] Comment on above: Result Comment: Ghulam a [...] F LOWL #### [facility] [address] [address] [address] Dontae Vallejo FLOW INTERPRETATION Comment Normal [facility] Comment on above: Result Comment: B ce ll clonality cannot be evaluated, T cells with CD10 expression in a small subset, low viability specimen, see comment. Performed at: -Y Performed By: #### F LOWL #### [facility] [address] [address] [address] Dontae Vallejo PHENOTYPE CHART Comment Normal [facility] Comment on above: Result Comment: CD2 Normal CD3 Normal CD4 Normal CD5 Normal CD7 Normal CD8 Normal CD10 See Text CD11b Normal CD19 Normal CD20 Normal CD23 Normal CD38 Normal CD45 Normal CD56 Normal CD57 Normal [facility]-7 Normal HLA-DR Normal KAPPA See Text LAMBDA See Text Performed at: -Y Performed By: #### F LOWL #### [facility] [address] [address] [address] Dontae Vallejo RESULTING PATH NAME Comment Normal [facility] Comment on above: Result Comment: Raul Oliveros M.D. Performed at: -Y Performed By: #### F LOWL #### [facility] [address] [address] [address] Dontae Vallejo Specimen type Nom (Spec) Comment Normal [facility] [place] Comment on above: Result Comment: Left axillary mass lymph node Performed at: -Y Performed By: #### F LOWL #### [facility] [address] [place] [address] Dr. Dontae Vallejo VIABILITY Comment Normal [facility] [place] Comment on above: Result Comment: 22% This [...] Performed at: -Y Performed By: #### F RHINA #### [facility] [address] [place] [address] [id number] [address] Dontae Vallejo US EXT NON VASC [...] TENZIN FERGUSON Date: 2021-01-07 16:37 Normal [facility] CBC AUTO DIFFon 11-02-2020 BASO # 0.1 103/ul Normal 0.0-0.1 [facility] [place] Comment on above: Performed By: #### C BC #### [facility] [address] [place], [place] [id number] Jose Bambi Basophils/100 WBC (Bld) 0.6 % Normal 0.2-2.0 [facility] Comment on above: Performed By: #### C BC #### [facility] [address] [place], [place] [id number] Jose Bambi EO # 0.4 103/ul Normal 0.0-0.7 [facility] Comment on above: Performed By: #### C BC #### [facility] [address] [place] [address] Jose Bambi Eosinophils/100 WBC (Bld) 3.7 % Normal 0.9-7.0 [facility] Comment on above: Performed By: #### C BC #### [facility] [address] [place] [address] Jose Bambi Erythrocyte distribution width (RBC) [Ratio] 13.2 % Normal 11.0-15.0 [facility] Comment on above: Performed By: #### C BC #### [facility] [address] [address] Josevlad Lacy Hematocrit (Bld) [Volume fraction] 36.1 % Normal 36.0-48.0 [facility] Comment on above: Performed By: #### C BC #### [facility] [address] [address] Jose Bambi Hemoglobin (Bld) [Mass/Vol] 11.7 g/dL Critically low 12.0-16.0 [facility] Comment on above: Performed By: #### C BC #### [facility] [address] [place] [address] Jose Bambi IG # 0.03 10e3/ul Normal 0.00-0.03 [facility] Comment on above: Performed By: #### C BC #### [facility] [address] [place] [address] Jose Bambi IG % 0.3 % Normal 0.0-0.5 [facility] Comment on above: Performed By: #### C BC #### [facility] [address] [place] [address] Jose Bambi LYMPH # 4.4 103/ul Critically high 1.2-3.8 [facility] Comment on above: Performed By: #### C BC #### [facility] [address] [place] [address] Jose Lacy Lymphocytes/100 WBC (Bld) 44.9 % Normal 20.5-60.0 [facility] Comment on above: Performed By: #### C BC #### [facility] [address] [place] [address] Jose Lacy MANUAL DIFF REQ NO Normal [facility] Comment on above: Performed By: #### C BC #### [facility] [address] [place], [place] [id number] Jose Lacy MCH (RBC) [Entitic mass] 30.5 pg Normal 26.7-34.0 [facility] Comment on above: Performed By: #### C BC #### [facility] [address], [place] [address] Josevlad Millarden MCHC (RBC) [Mass/Vol] 32.4 g/dL Normal 29.9-35.2 [facility] Comment on above: Performed By: #### C BC #### [facility] [address] [id number] Jose Bambi MCV (RBC) [Entitic vol] 94.0 fL Normal 81.0-99.0 [facility] Comment on above: Performed By: #### C BC #### [facility] [address] [id number] Jose Bambi MONO # 0.6 103/ul Normal 0.3-0.8 [facility] Comment on above: Performed By: #### C BC #### [facility] [address] [place], [place] [id number] Jose Bambi Monocytes/100 WBC (Bld) 5.7 % Normal 1.7-12.0 [facility] Comment on above: Performed By: #### C BC #### [facility] [address] [place], [place] [id number] Jose Bambi NEUT # 4.4 103/ul Normal 1.4-6.5 [facility] Comment on above: Performed By: #### C BC #### [facility] [address] [place], [place] [id number] Jose Bambi Neutrophils/100 WBC (Bld) 44.8 % Normal 43.0-75.0 [facility] Comment on above: Performed By: #### C BC #### [facility] [address] [place], [place] [id number] Jose Bambi Platelet mean volume (Bld) [Entitic vol] 11.3 fL Normal 9.5-13.5 [facility] Comment on above: Performed By: #### C BC #### [facility] [address] [place], [place] [id number] Jose Bambi PLT 239 103/ul Normal 150-450 [facility] Comment on above: Performed By: #### C BC #### [facility] [address] [place], [place] [id number] Jose Bambi RBC 3.84 106/ul Critically low 4.20-5.40 [facility] Comment on above: Performed By: #### C BC #### [facility] [address], [place] [address] Jose Lacy WBC 9.8 103/ul Normal 4.0-11.0 [facility] Comment on above: Performed By: #### C BC #### [facility] [address], [place] [address] Jose Lacy Vital Signs Date Time Vital Sign Value Performing Clinician Facility 10-26-2024 10:42-0400 Body height 160.02 cm Jack Rogel MD Work Phone: [facility] 10-26-2024 10:42-0400 Body mass index (BMI) [Ratio] 23.9 kg/m2 Jack Rogel MD Work Phone: [facility] 10-26-2024 10:42-0400 Body temperature 97.1 [degF] Jack Rogel MD Work Phone: [facility] 10-26-2024 10:42-0400 Body weight 61.34 kg Jack Rogel MD Work Phone: [facility] 10-26-2024 10:42-0400 Diastolic blood pressure 112 mm[Hg] Jack Rogel MD Work Phone: [facility] 10-26-2024 10:42-0400 Heart rate 73 /min Jack Rogel MD Work Phone: [facility] 10-26-2024 10:42-0400 Respiratory rate 18 /min Jack Rogel MD Work Phone: [facility] 10-26-2024 10:42-0400 SaO2% (BldA) [Mass fraction] 97 % Jack Rogel MD Work Phone: [facility] 10-26-2024 10:42-0400 Systolic blood pressure 182 mm[Hg] Jack Rogel MD Work Phone: [facility] 09-03-2024 15:16-0400 Body height 160 cm Jack Rogel MD Work Phone: [facility] 09-03-2024 15:16-0400 Body mass index (BMI) [Ratio] 25.51 kg/m2 Jack Rogel MD Work Phone: [facility] 09-03-2024 15:16-0400 Body weight 65.32 kg Jack Rogel MD Work Phone: [facility] 09-03-2024 15:16-0400 Diastolic blood pressure 70 mm[Hg] Jack Rogel MD Work Phone: [facility] 09-03-2024 15:16-0400 Heart rate 97 /min Jack Rogel MD Work Phone: [facility] 09-03-2024 15:16-0400 SaO2% (BldA) [Mass fraction] 99 % Jack Rogel MD Work Phone: [facility] 09-03-2024 15:16-0400 Systolic blood pressure 130 mm[Hg] Jack Rogel MD Work Phone: [facility] 07-11-2024 14:19-0400 Body height 160 cm Eloise Galicia MD Work Phone: [facility] 07-11-2024 14:19-0400 Body mass index (BMI) [Ratio] 24.45 kg/m2 Eloise Galicia MD Work Phone: [facility] 07-11-2024 14:19-0400 Body weight 62.6 kg Eloise Galicia MD Work Phone: [facility] 07-11-2024 14:19-0400 Diastolic blood pressure 82 mm[Hg] Eloise Galicia MD Work Phone: [facility] 07-11-2024 14:19-0400 Heart rate 68 /min Eloise Galicia MD Work Phone: [facility] 07-11-2024 14:19-0400 Systolic blood pressure 132 mm[Hg] Eloise Galicia MD Work Phone: [facility] 06-11-2024 11:11-0500 Body height 160.02 cm Jack Rogel MD Work Phone: [facility] 06-11-2024 11:11-0500 Body mass index (BMI) [Ratio] 25.4 kg/m2 Jack Rogel MD Work Phone: [facility] 06-11-2024 11:11-0500 Body temperature 96.3 [degF] Jack Rogel MD Work Phone: [facility] 06-11-2024 11:11-0500 Body weight 65.31 kg Jack Rogel MD Work Phone: [facility] 06-11-2024 11:11-0500 Diastolic blood pressure 80 mm[Hg] Jack Rogel MD Work Phone: [facility] 06-11-2024 11:11-0500 Heart rate 62 /min Jack Rogel MD Work Phone: [facility] 06-11-2024 11:11-0500 SaO2% (BldA) [Mass fraction] 99 % Jack Rogel MD Work Phone: [facility] 06-11-2024 11:11-0500 Systolic blood pressure 120 mm[Hg] Jack Rogel MD Work Phone: [facility] 06-04-2024 19:40-0500 Diastolic blood pressure 83 mm[Hg] Jack Rogel MD Work Phone: [facility] 06-04-2024 19:40-0500 Heart rate 58 /min Jack Rogel MD Work Phone: [facility] 06-04-2024 19:40-0500 Respiratory rate 18 /min Jack Rogel MD Work Phone: [facility] 06-04-2024 19:40-0500 Systolic blood pressure 180 mm[Hg] Jack Rogel MD Work Phone: [facility] 06-04-2024 18:01-0500 Body height 160.02 cm Jack Rogel MD Work Phone: [facility] 06-04-2024 18:01-0500 Body temperature 98.5 [degF] Jack Rogel MD Work Phone: [facility] 06-04-2024 18:01-0500 Body weight 65 kg Jack Rogel MD Work Phone: [facility] 06-04-2024 18:01-0500 SaO2% (BldA) [Mass fraction] 97 % Jack Rogel MD Work Phone: [facility] 06-04-2024 15:07-0500 Body height 160.02 cm Jack Rogel MD Work Phone: [facility] 06-04-2024 15:07-0500 Body mass index (BMI) [Ratio] 25.3 kg/m2 Jack Rogel MD Work Phone: [facility] 06-04-2024 15:07-0500 Body temperature 97.8 [degF] Jack Rogel MD Work Phone: [facility] 06-04-2024 15:07-0500 Body weight 64.86 kg Jack Rogel MD Work Phone: [facility] 06-04-2024 15:07-0500 Diastolic blood pressure 92 mm[Hg] Jack Rogel MD Work Phone: [facility] 06-04-2024 15:07-0500 Heart rate 60 /min Jack Rogel MD Work Phone: [facility] 06-04-2024 15:07-0500 Respiratory rate 14 /min Jack Rogel MD Work Phone: [facility] 06-04-2024 15:07-0500 SaO2% (BldA) [Mass fraction] 98 % Jack Rogel MD Work Phone: [facility] 06-04-2024 15:07-0500 Systolic blood pressure 163 mm[Hg] Jack Rogel MD Work Phone: [facility] 05-29-2024 10:55-0500 Body height 160 cm Toi Horne DPM Work Phone: [facility] 05-29-2024 10:55-0500 Body mass index (BMI) [Ratio] 25.51 kg/m2 Toi Horne DPM Work Phone: [facility] 05-29-2024 10:55-0500 Body weight 65.32 kg Toirachele Horne DPM Work Phone: [facility] 05-29-2024 10:55-0500 Respiratory rate 18 /min Toi Horne DPM Work Phone: [facility] 05-27-2024 13:39-0500 Body height 160 cm Jack Rogel MD Work Phone: [facility] 05-27-2024 13:39-0500 Body mass index (BMI) [Ratio] 24.8 kg/m2 Jack Rogel MD Work Phone: [facility] 05-27-2024 13:39-0500 Body weight 63.5 kg Jack Rogel MD Work Phone: [facility] 04-23-2024 11:38-0500 Heart rate 74 /min Jack Rogel MD Work Phone: [facility] 04-23-2024 11:38-0500 SaO2% (BldA) [Mass fraction] 97 % Jack Rogel MD Work Phone: [facility] 04-04-2024 14:57-0500 Body height 160.02 cm Jack Rogel MD Work Phone: [facility] 04-04-2024 11:32-0500 Body temperature 97.8 [degF] Jack Rogel MD Work Phone: [facility] 04-04-2024 11:32-0500 Diastolic blood pressure 60 mm[Hg] Jack Rogel MD Work Phone: [facility] 04-04-2024 11:32-0500 Heart rate 62 /min Jack Rogel MD Work Phone: [facility] 04-04-2024 11:32-0500 Respiratory rate 18 /min Jack Rogel MD Work Phone: [facility] 04-04-2024 11:32-0500 SaO2% (BldA) [Mass fraction] 95 % Jack Rogel MD Work Phone: [facility] 04-04-2024 11:32-0500 Systolic blood pressure 126 mm[Hg] Jack Rogel MD Work Phone: [facility] 04-04-2024 05:03-0500 Body weight 64.5 kg Jack Rogel MD Work Phone: [facility] 03-11-2024 14:40-0500 Body height 160 cm Jack Rogel MD Work Phone: [facility] 03-11-2024 14:40-0500 Body mass index (BMI) [Ratio] 24.8 kg/m2 Jack Rogel MD Work Phone: [facility] 03-11-2024 14:40-0500 Body weight 63.5 kg Jack Rogel MD Work Phone: [facility] 03-11-2024 14:40-0500 Diastolic blood pressure 78 mm[Hg] Jack Rogel MD Work Phone: [facility] 03-11-2024 14:40-0500 Heart rate 62 /min Jack Rogel MD Work Phone: [facility] 03-11-2024 14:40-0500 SaO2% (BldA) [Mass fraction] 98 % Jack Rogel MD Work Phone: [facility] 03-11-2024 14:40-0500 Systolic blood pressure 130 mm[Hg] Jack Rogel MD Work Phone: [facility] 08-09-2023 08:30-0400 Body height [address] 08-09-2023 08:30-0400 Body mass index (BMI) [Ratio] 25.86 kg/m2 [address] 08-09-2023 08:30-0400 Body weight 66.[address] 08-09-2023 08:30-0400 Diastolic blood pressure 88 mm[Hg] [address] 08-09-2023 08:30-0400 Systolic blood pressure 134 mm[Hg] [address] 07-02-2023 13:19-0400 Diastolic blood pressure 90 mm[Hg] Eloise Galicia MD Work Phone: [facility] 07-02-2023 13:19-0400 Systolic blood pressure 138 mm[Hg] Eloise Galicia MD Work Phone: [facility] 07-02-2023 13:18-0400 Body height 160 cm Eloise Galicia MD Work Phone: [facility] 07-02-2023 13:18-0400 Body mass index (BMI) [Ratio] 25.86 kg/m2 Eloise Galicia MD Work Phone: [facility] 07-02-2023 13:18-0400 Body weight 66.22 kg Eloise Galicia MD Work Phone: [facility] 07-02-2023 13:18-0400 Heart rate 80 /min Eloise Galicia MD Work Phone: [facility] 05-14-2023 13:52-0500 Body height 160 cm Jack Rogel MD Work Phone: [facility] [employer] 05-14-2023 13:52-0500 Body mass index (BMI) [Ratio] 26.57 kg/m2 Jack Rogel MD Work Phone: [facility] 05-14-2023 13:52-0500 Body weight 68.04 kg Jack Rogel MD Work Phone: [facility] 05-14-2023 13:52-0500 Diastolic blood pressure 70 mm[Hg] Jack Rogel MD Work Phone: [facility] 05-14-2023 13:52-0500 Heart rate 68 /min Jack Rogel MD Work Phone: [facility] 05-14-2023 13:52-0500 SaO2% (BldA) [Mass fraction] 98 % Jack Rogel MD Work Phone: [facility] [employer] 05-14-2023 13:52-0500 Systolic blood pressure 122 mm[Hg] Jack Rogel MD Work Phone: [facility] 03-12-2022 12:15-0500 Body height 160.02 cm Gabi Candelaria Other [employer] Other 03-12-2022 12:15-0500 Body mass index (BMI) [Ratio] 26.57 kg/m2 Gabi Candelaria Other [employer] Other 03-12-2022 12:15-0500 Body temperature 97.8 [degF] Gabi Candelaria Other [employer] Other 03-12-2022 12:15-0500 Body weight 68.04 kg Gabi Candelaria Other [employer] Other 03-12-2022 12:15-0500 Diastolic blood pressure 68 mm[Hg] Gabiarden Gaona Other [employer] Other 03-12-2022 12:15-0500 Respiratory rate 18 /min Gabi Gaona Other [employer] Other 03-12-2022 12:15-0500 SaO2% (BldA) [Mass fraction] 98 % Gabi Gaona Other [employer] Other 03-12-2022 12:15-0500 Systolic blood pressure 123 mm[Hg] Gabi Gaona Other [employer] Other 01-31-2022 15:09-0400 Body height 158.9 cm Simin Lama MD Work Phone: [facility] 01-31-2022 15:09-0400 Body temperature 97.3 [degF] Simin Lama MD Work Phone: [facility] 01-31-2022 15:09-0400 Body weight 70.03 kg Simin Lama MD Work Phone: [facility] 01-31-2022 15:09-0400 Diastolic blood pressure 65 mm[Hg] Simin Lama MD Work Phone: [facility] 01-31-2022 15:09-0400 Heart rate 62 /min Simin Lama MD Work Phone: [facility] 01-31-2022 15:09-0400 Respiratory rate 16 /min Simin Lama MD Work Phone: [facility] 01-31-2022 15:09-0400 SaO2% (BldA) [Mass fraction] 100 % Simin Lama MD Work Phone: [facility] 01-31-2022 15:09-0400 Systolic blood pressure 142 mm[Hg] Simin Lama MD Work Phone: [facility] 07-28-2021 14:24-0400 Body height 158.9 cm Drake Anand MD Work Phone: [facility] 07-28-2021 14:24-0400 Body temperature 97.9 [degF] Drake Anand MD Work Phone: [facility] 07-28-2021 14:24-0400 Body weight 69.94 kg Drake Anand MD Work Phone: [facility] 07-28-2021 14:24-0400 Diastolic blood pressure 74 mm[Hg] Drake Anand MD Work Phone: [facility] 07-28-2021 14:24-0400 Heart rate 56 /min Drake Anand MD Work Phone: [facility] 07-28-2021 14:24-0400 Respiratory rate 18 /min Drake Anand MD Work Phone: [facility] 07-28-2021 14:24-0400 SaO2% (BldA) [Mass fraction] 98 % Drake Anand MD Work Phone: [facility] 07-28-2021 14:24-0400 Systolic blood pressure 150 mm[Hg] Drake Anand MD Work Phone: [facility] Encounters Encounter Date Encounter Type Care Provider Facility Start: 10-29-2024 End: 10-29-2024 Clinisync Result Encounter Generic External Data Provider [facility] External Department Unsolicited Start: 10-29-2024 End: 10-29-2024 Clinisync Result Encounter Generic External Data Provider [facility] External Department Unsolicited Start: 10-26-2024 End: 10-26-2024 Departed Referred Casi Holloway [facility]EL T[facility]ER -[facility] Work Phone: Start: 10-26-2024 End: 10-26-2024 ambulatory Jack Rogel MD Work Phone: [facility] Work Phone: Start: 10-26-2024 End: 10-26-2024 Patient encounter procedure Casi Holloway [facility] Work Phone: Start: 10-07-2024 End: 10-07-2024 Bamboo flowsheet Mehrdad LEACH Work Phone: [facility] Start: 10-07-2024 End: 10-07-2024 Bamboo flowsheet Mehrdad LEACH Work Phone: [facility] Start: 10-07-2024 End: 10-07-2024 ambulatory MEHRDAD JACKSON Not Available Start: 10-07-2024 End: 10-07-2024 Office outpatient visit 15 minutes Mehrdad LEACH Work Phone: [facility] Comment on above: Right leg pain (Prim irma Dx); Lumbar radiculopathy, right; Chronic pain of right knee; Arthritis of right knee; Chondromalacia, patella, right Start: 09-25-2024 End: 09-25-2024 Clinisync Result Encounter Generic External Data Provider [facility] External Department Unsolicited Start: 09-25-2024 End: 09-25-2024 Clinisync Result Encounter Generic External Data Provider [facility] External Department Unsolicited Start: 09-24-2024 End: 09-24-2024 Clinisync Result Encounter Generic External Data Provider [facility] External Department Unsolicited Start: 09-24-2024 End: 09-24-2024 Clinisync Result Encounter Generic External Data Provider [facility] External Department Unsolicited Start: 09-24-2024 End: 09-26-2024 ambulatory TENZIN HSU [facility] Start: 09-24-2024 End: 09-26-2024 Subsequent hospital visit by physician Tenzin Hsu MD Work Phone: [facility] Comment on above: Infrarenal abdominal aortic aneurysm (AAA) without rupture 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) Start: 09-19-2024 End: 09-19-2024 Patient encounter procedure Brian Mishra MD Work Phone: [facility] Comment on above: Pain in both lower e xtremities (Primary Dx); Weakness of right lower extremity; Lumbar radiculopathy Start: 09-19-2024 End: 09-19-2024 ambulatory BRIAN MISHRA Not Available Start: 09-03-2024 End: 09-03-2024 Patient encounter procedure Jack Rogel MD Work Phone: [facility] Comment on above: Encounter for Medica re annual wellness exam (Primary Dx); Advance directive discussed with patient; Encounter for screening for other disorder; Screening for alcohol problem; Paroxysmal atrial fibrillation (CMS/HCC); Hemiparesis of left nondominant side as late effect of cerebral infarction (CMS/HCC); 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 (CMS/HCC); Pulmonary hypertension, mild (CMS/HCC); Primary hypertension (CMS/HCC); Ischemic cardiomyopathy (CMS/HCC); Coronary artery disease involving tyonek coronary artery of tyonek heart without angina pectoris (CMS/HCC); Pararenal abdominal aortic aneurysm (AAA) without rupture (CMS/HCC); Chronic kidney disease, stage 3b (HCC) (CMS/HCC); Type 2 diabetes mellitus with stage 3b chronic kidney disease, without long-term current use of insulin (HCC) (CMS/HCC); Mixed dyslipidemia (CMS/HCC) Start: 09-03-2024 End: 09-03-2024 ambulatory JACK ROGEL Not Available Start: 09-03-2024 End: 09-03-2024 Telephone encounter Brian Mishra MD Work Phone: [facility] 111 Start: 09-01-2024 End: 09-01-2024 ambulatory KAT PALOMARES [facility] Start: 09-01-2024 End: 09-01-2024 Telemedicine consultation with patient Kat Rubingan PharmD Work Phone: [facility] Comment on above: Paroxysmal atrial fi brillation (Multi); Anticoagulated Start: 08-28-2024 End: 08-28-2024 Telephone encounter Jr. Giorgio Barajas DO Work Phone: [facility] Comment on above: Referral Start: 08-27-2024 End: 08-27-2024 Telephone encounter Jack Rogel MD Work Phone: [facility] Start: 07-28-2024 End: 07-28-2024 ambulatory KAT PALOMARES [facility] Start: 07-28-2024 End: 07-28-2024 Telemedicine consultation with patient Kat Palomares PharmD Work Phone: [facility] Comment on above: Paroxysmal atrial fi brillation (Multi); Anticoagulated Start: 07-11-2024 End: 07-11-2024 Office outpatient visit 25 minutes Eloise Galicia MD Work Phone: [facility] Comment on above: Paroxysmal atrial fi brillation (Multi) (Primary Dx); Anticoagulated; Primary hypertension; Aortic aneurysm, unspecified portion of aorta, unspecified whether ruptured; Mixed hyperlipidemia; Type 2 RI (myocardial infarction) (Multi); Stage 3b chronic kidney disease (Multi); BMI 24.0-24.9, adult; Acute on chronic left systolic heart failure Start: 07-11-2024 End: 07-11-[address] [facility] Start: 07-09-2024 End: 07-09-2024 Clinisync Result Encounter Generic External Data Provider [facility] External Department Unsolicited Start: 07-09-2024 End: 07-09-2024 Clinisync Result Encounter Generic External Data Provider [facility] External Department Unsolicited Start: 07-09-2024 End: 07-09-2024 ambulatory [facility] Start: 07-09-2024 End: 07-09-2024 Subsequent hospital visit by physician Charley Cash Echo/Vasc Room 2 [facility] Comment on above: Acute on chronic lef t systolic heart failure; Discoloration of skin of foot; Abdominal aortic aneurysm, without rupture, unspecified ([facility]-HCC) Start: 06-25-2024 End: 06-25-2024 ambulatory GIORGIO YU Not Available Start: 06-25-2024 End: 06-25-2024 Office outpatient visit 15 minutes Jr. Giorgio Barajas DO Work Phone: [facility] Comment on above: Right leg weakness; Acute pain of right knee; Numbness Start: 06-11-2024 End: 06-11-2024 ambulatory Jack Rogel MD Work Phone: [facility] Work Phone: Start: 06-11-2024 End: 06-11-2024 Patient encounter procedure Jack Rogel MD Work Phone: [facility] Work Phone: Start: 06-04-2024 End: 06-04-2024 Emergency department patient visit Jack Rogel MD Work Phone: [facility] Work Phone: Start: 06-04-2024 End: 06-04-2024 ambulatory Jack Rogel MD Work Phone: [facility] Work Phone: Start: 06-04-2024 End: 06-04-2024 Patient encounter procedure Jack Rogel MD Work Phone: [facility] Work Phone: Start: 05-29-2024 End: 05-29-2024 Bamboo flowsheet Toi Horne DPM Work Phone: [facility] Start: 05-29-2024 End: 05-29-2024 Bamboo flowsheet Toi Horne DPM Work Phone: [facility] Start: 05-29-2024 End: 05-29-2024 Clinisync Result Encounter Generic External Data Provider [facility] External Department Unsolicited Start: 05-29-2024 End: 05-29-2024 ambulatory TOI HORNE Not Available Start: 05-29-2024 End: 05-29-2024 Office outpatient new 30 minutes Toi Horne DPM Work Phone: [facility] Comment on above: Raynaud's phenomenon without gangrene (Primary Dx) Start: 05-27-2024 End: 05-27-2024 Bamboo flowsheet Jack Rogel MD Work Phone: [facility] Start: 05-27-2024 End: 05-27-2024 Bamboo flowsheet Jack Rogel MD Work Phone: [facility] Start: 05-27-2024 End: 05-27-2024 Office outpatient visit 15 minutes Jack Rogel MD Work Phone: [facility] Comment on above: Toe cyanosis; Decreased pedal pulses; Type 2 diabetes mellitus with stage 3b chronic kidney disease, without long-term current use of insulin (HCC) (CMS/HCC); Polypharmacy Start: 05-27-2024 End: 05-27-2024 ambulatory JACK ROGEL Not Available Start: 05-22-2024 End: 05-22-2024 Telephone encounter Jack Rogel MD Work Phone: [facility] Start: 05-19-2024 End: 05-19-2024 Patient encounter procedure Jack Rogel MD Work Phone: [facility] Work Phone: Start: 05-19-2024 End: 05-19-2024 ambulatory Jack Rogel MD Work Phone: [facility] Work Phone: Start: 05-19-2024 End: 05-19-[address] [facility] Start: 04-14-2024 End: 04-14-2024 Transitional care [...] / Non-visit Jack Rogel MD Work Phone: [facility] Work Phone: Start: 04-02-2024 End: 04-04-2024 Evaluation and management of inpatient Jack Rogel MD Work Phone: [facility] [place] [facility] Work Phone: Start: 03-11-2024 End: 03-11-2024 Bamboo flowsyo Rogel MD Work Phone: [facility] [...] pedal pulses Start: 03-11-2024 End: 03-11-2024 ambulatory EDWARD J HEMEYER Not Available Start: 08-09-2023 End: 08-09-2023 Subsequent hospital visit by physician Charley Cash Echo/Vasc Room 2 [facility] Comment on above: History of RI (myoca rdial infarction); Acute arterial ischemic stroke, multifocal, posterior circulation, right (Multi) Start: 08-09-2023 End: 08-09-2023 ambulatory [facility] Start: 07-02-2023 End: 07-02-2023 Office consultation new/estab patient 80 min Eloise Galicia MD Work Phone: [facility] Comment on above: Paroxysmal atrial fi brillation (CMS/HCC); History of RI (myocardial infarction); Acute arterial ischemic stroke, multifocal, posterior circulation, right (CMS/HCC); BMI 25.0-25.9,adult; Never smoked tobacco; STORMY inhibitor intolerance; Primary hypertension Start: 05-14-2023 End: 05-14-2023 Patient encounter procedure Jack Rogel MD Work Phone: [facility] Comment on above: Encounter for Medica re [...] cerebral infarction (CMS/HCC); Coronary artery disease involving tyonek coronary artery of tyonek heart without angina pectoris (CMS/HCC); Pulmonary hypertension, mild (CMS/HCC); Chronic kidney disease, stage 3b (HCC) (CMS/HCC); Type 2 diabetes mellitus with stage 3b chronic kidney disease, without long-term current use of insulin (HCC) (CMS/HCC); 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, left (CMS/HCC); Mixed dyslipidemia (CMS/HCC) Start: 05-15-2022 Telephone encounter Simin stanford MD Work Phone: [facility] Comment on above: Orders Start: 05-15-2022 End: 05-15-2022 ambulatory DO Jorge Luis Whitehead Work Phone: [facility] Work Phone: Start: 05-15-2022 End: 05-15-2022 Patient encounter procedure DO Jorge Luis Whitehead Work Phone: [facility] Work Phone: Start: 03-12-2022 End: 03-12-2022 ambulatory Gabi Gaona Other [employer] Other Start: 03-12-2022 Office outpatient ne w 20 minutes Gabi Gaona [facility] Start: 02-13-2022 Telephone encounter Shiva Bess Hematology/Oncology Comment on above: Appointment Start: 01-31-2022 End: 01-31-2022 ambulatory SIMIN LAMA Facility:[facility] Start: 01-31-2022 End: 01-31-2022 ambulatory Simin Lama MD Work Phone: Hematology/Oncology Comment on above: 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, left (HCC) (Primary Dx) Start: 01-31-2022 End: 01-31-2022 Patient encounter procedure Simin Lama MD Work Phone: [employer] Start: 01-31-2022 Telephone encounter Smiin stanford MD Work Phone: [facility] Comment on above: Appointment Start: 07-28-2021 End: 07-28-2021 ambulatory DRAKE ANAND Facility:[facility] Start: 07-28-2021 End: 07-28-2021 ambulatory Drake Anand MD Work Phone: Hematology/Oncology Comment on above: 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, left (HCC) (Primary Dx); Lymphocytosis Start: 07-28-2021 End: 07-28-2021 Patient encounter procedure Drake Anand MD Work Phone: [employer] Start: 07-22-2021 Telephone encounter Ru Blackman RN [...] PA-C Work Phone: Hematology/Oncology Comment on above: [employer] T[employer] 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 - O 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 Start: 03-19-2021 Encounter for preprocedural cardiovascular examination DR TIM NIÑO [facility] Start: 03-19-2021 Encounter for preprocedural laboratory examination DR TIM NIÑO [facility] Start: 03-18-2021 End: 03-18-[address] TIM [...] Date Procedure Procedure Detail Performing Clinician Start: 10-29-2024 URINE CULTURE - [facility] External Data Provider Start: 10-07-2024 Arthrocentesis aspir &/inj major jt/bursa w/o us Mehrdad LEACH Work Phone: Start: 09-25-2024 CTA ABDOMEN PELVIS W CONTRAST Generic External Data Provider Start: 09-24-2024 Ct angio abd&plvis c ntrst mtrl w/wo cntrst img Tenzin Hsu MD Work Phone: Start: 09-24-2024 Non-invasive physiol ogic study extremity 3 levls Tenzin Hsu MD Work Phone: Start: 09-24-2024 Creatinine blood Tenzin Hsu MD Work Phone: Start: 09-24-2024 MHPT CREATININE W/GFR G eneric External Data Provider Start: 07-09-2024 End: 07-09-2024 Us abdominal aorta real time screen study aaa Generic External Data Provider Start: 06-25-2024 Radiologic examinati on knee 1/2 views Jr. Giorgio Staton Stepanic DO Work Phone: Start: 06-04-2024 Ankle brachial pressure index Jack Rogel MD Work Phone: Start: 05-29-2024 ALL BASIC METABOLIC PANEL Generic External Data Provider Start: 08-09-2023 TRANSTHORACIC ECHO ( TTE) COMPLETE ELOISE GALICIA Start: 08-09-2023 Echo tthrc r-t 2d w/ wom-mode compl spec&colr d Eloise Galicia MD Work Phone: Start: 07-02-2023 Ecg routine ecg w/le ast [...] Treatment Date Care Activity Detail Author Start: 09-03-2025 Medicare Annual Wellness (AWV) Medicare Annual Wellness (AWV) [facility] Start: 05-19-2025 Echocardiography Echocardiogram [facility] Start: 03-19-2025 Glaucoma screening Diabetes: Retinopathy Screening [facility] Start: 03-04-2025 Urine screening for protein [facility] Start: 03-02-2025 End: 03-02-2025 Telemedicine consultation with patient 03/02/2025 1:40 PM EST Telemedicine [facility] [address] [place] [phone] Kat Palomares, PharmD [address] [place] [address] [facility] Start: 12-16-2024 End: 12-16-2024 Patient encounter procedure 12/16/2024 2:30 PM EDT Office Visit [facility] Medical Office Building [address] [place] [phone] Eloise Galicia MD [address] [place] [address] [address] [place] [address] [facility] Start: 12-15-2024 Influenza vaccination Influenza Vaccine (#1) [facility] Start: 10-27-2024 Urine culture [facility] Start: 10-26-2024 Bacteria identified in Urine by Culture Urine Culture [facility] Start: 10-21-2024 End: 10-21-2024 Patient encounter procedure 10/21/2024 11:15 AM EDT Office Visit [facility] [address] [place] [address] Mehrdad Jackson PA [address] [facility] [address] [place] [address] [facility] Start: 10-07-2024 End: 10-07-2025 XR Lumbar spine Views W flexion and W extension XR lumbar spine 4+ views w flexion extension Imaging Routine Lumbar radiculopathy, right Expected: 10/07/2024 (Approximate), Expires: 10/07/2025 [facility] Work Phone: Comment on above: Expected: 10/07/2024 (Approximate), Expi res: 10/07/2025 Start: 10-07-2024 End: 10-07-2024 Patient encounter procedure 10/07/2024 8:45 AM EDT Office Visit [facility] [address] [place] [phone] Mehrdad Jackson PA [address] [place] [address] [facility] Start: 09-29-2024 End: 09-29-2024 Patient encounter procedure [facility] Comment on above: F/U from 08/06/24 w/Studies AAA,PAD-CTA, vasc st udy 09/24/24 Start: 09-25-2024 COVID-19 Vaccine ( season) COVID-19 Vaccine () [facility] Start: 09-25-2024 COVID-19 Vaccine ( season) COVID-19 Vaccine () [facility] Start: 09-03-2024 End: 09-03-2024 Patient encounter procedure 09/03/2024 2:30 PM EDT Office Visit [facility] [address] [place] [address] Jack Rogel MD [address] [facility] [address] [place] [address] [facility] Start: 09-01-2024 Hemoglobin A1c measurement Diabetes: Hemoglobin A1C [facility] Start: 09-01-2024 End: 09-01-2024 Telemedicine consultation with patient 09/01/2024 1:40 PM EDT Telemedicine [facility] [address] [place] [phone] Kat Palomares, PharmD [address] [place], [place] [phone] [facility] Start: 08-06-2024 End: 08-06-2024 Patient encounter procedure 08/06/2024 1:15 PM EDT Office Visit [facility] [address] [place] [phone] Jr. Giorgio Barajas, DO [address] [facility] [address] [place] [address] [facility] Start: 07-28-2024 DIABETES SCREEN DIABETES SCREEN [facility] Start: 07-28-2024 Diabetes Screening Diabetes Screening [facility] Start: 07-16-2024 End: 07-16-2024 Patient encounter procedure 07/16/2024 10:00 AM EDT Office Visit [facility] [address] [place] [phone] Jr. Giorgio Barajas, DO [address] [facility] [address] [place] [address] [facility] Start: 07-11-2024 End: 07-11-2024 Patient encounter procedure 07/11/2024 2:00 PM EDT Office Visit [facility] [address] [facility] [address] [place] [address] Eloise Galicia MD [address] [facility] [address] [place] [address] [facility] Start: 06-25-2024 End: 06-25-2025 EMG AND NERVE CONDUCTION STUDY EMG AND NERVE CONDUCTION STUDY Neurology Routine Numbness Expected: 06/25/2024 (Approximate), Expires: 06/25/2025 [facility] Work Phone: Comment on above: Expected: 06/25/2024 (Approximate), Expi res: 06/25/2025 Start: 06-04-2024 [facility] Start: 06-04-2024 Ankle brachial pressure index [facility] Start: 06-04-2024 Hemoglobin A1c measurement Diabetes: Hemoglobin A1C [facility] Start: 05-27-2024 End: 05-27-2024 Patient encounter procedure 05/27/2024 1:45 PM EST Office Visit [facility] [address] [place] [address] Jack Rogel MD [address] [place] [address] (Fax) Toe cyanosis; Decreased pedal pulses; Type 2 diabetes mellitus with stage 3b chronic kidney disease, without long-term current use of insulin (HCC) ([facility]); Polypharmacy [facility] Comment on above: Toe cyanosis; Decreased pedal pulses; Type 2 diabetes mellitus with stage 3b chronic kidney disease, without long-term current use of insulin (HCC) ([facility]); Polypharmacy Start: 05-14-2024 Medicare Annual Wellness (AWV) Medicare Annual Wellness (AWV) [facility] Start: 05-01-2024 End: 05-01-2024 Patient encounter procedure 05/01/2024 1:20 PM EST Office Visit [facility] [address] [place] [address] Toi Horne DPM [address] [address] [facility] Start: 04-16-2024 Annual Wellness Visit (Medicare Advantage) Annual Wellness Visit (Medicare Advantage) [facility] Start: 04-14-2024 End: 04-14-2024 Patient encounter procedure 04/14/2024 2:30 PM EST Office Visit [facility] [address] [place] [address] Jack Rogel MD [address] [place] [address] (Fax) Encounter for examination following treatment at hospital [facility] Comment on above: Encounter for examination following elder tment at hospital Start: 04-11-2024 DIABETES SCREEN DIABETES SCREEN [facility] Start: 04-04-2024 [facility] Start: 04-02-2024 Hospital admission [facility] Start: 04-02-2024 Fluoroscopy of Left Heart using Low Osmolar Contrast Fluoroscopy of Left Heart using Low Osmolar Contrast [facility] Start: 04-02-2024 Fluoroscopy of Multiple Coronary Arteries using Low Osmolar Contrast Fluoroscopy of Multiple Coronary Arteries using Low Osmolar Contrast [facility] Start: 04-02-2024 Measurement of Cardiac Sampling and Pressure, Left Heart, Percutaneous Approach Measurement of Cardiac Sampling and Pressure, Left Heart, Percutaneous Approach [facility] Start: 03-11-2024 End: 03-11-2025 US.doppler Extremity arteries - bilateral for physiologic artery study at rest and with exercise VASC US PVR/SEGMENTAL PRESSURES LOWER Imaging Routine Primary hypertension (CMS/HCC) Chronic kidney disease, stage 3b (HCC) (CMS/HCC) Toe cyanosis Decreased pedal pulses Expected: 03/11/2024, Expires: 03/11/2025 [facility] Work Phone: Comment on above: Expected: 03/11/2024, Expires: Start: 12-16-2023 Covid-19 Vaccine ( season) Covid-19 Vaccine () [facility] Start: 12-16-2023 Influenza vaccination Influenza Vaccine (#1) [facility] Start: 09-24-2023 End: 09-24-2023 Patient encounter procedure 09/24/2023 2:00 PM EDT Office Visit [facility] [address] [facility] [place] [address] Jack Rogel MD [address] [facility] [address] [facility] Start: 08-16-2023 End: 08-16-2023 Patient encounter procedure 08/16/2023 1:00 PM EDT Office Visit [facility] [address] [facility] [address] [place] [phone] Eloise Galicia MD [address] [facility] [address] [place], [place] [phone] [facility] Start: 07-26-2023 End: 07-26-2023 Patient encounter procedure 07/26/2023 1:30 PM EDT [facility] [address] [place] [address] [facility] Start: 07-02-2023 End: 07-01-2025 US Heart Transthoracic Transthoracic Echo Complete Echocardiography Routine History of RI (myocardial infarction) Acute arterial ischemic stroke, multifocal, posterior circulation, right (CMS/HCC) Expected: 07/02/2023 (Approximate), Expires: 07/01/2025 [facility] Service Area Work Phone: Comment on above: Expected: 07/02/2023 (Approximate), Expi res: 07/01/2025 Start: 06-15-2023 Hemoglobin A1c measurement Diabetes: Hemoglobin A1C [facility] Start: 05-26-2023 COVID-19 Vaccine () COVID-19 Vaccine () [facility] Start: 04-16-2023 Advance Directive Discussion Advance Directive Discussion [facility] Start: 06-03-2022 End: 08-03-2022 CBC W Auto Differential panel - Blood CBC + DIFF Lab Routine 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, left (HCC) Expected: 06/03/2022 (Approximate), Expires: 08/03/2022 [facility] Work Phone: Comment on above: Expected: 06/03/2022 (Approximate), Expi res: 08/03/2022 Start: 06-03-2022 End: 08-03-2022 Comprehensive metabolic 2000 panel - Serum or Plasma COMP METABOLIC PANEL Lab Routine 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, left (HCC) Expected: 06/03/2022 (Approximate), Expires: 08/03/2022 [facility] Work Phone: Comment on above: Expected: 06/03/2022 (Approximate), Expi res: 08/03/2022 Start: 05-12-2022 Adult depression screening assessment DEPRESSION SCREENING [facility] Start: 04-16-2022 ADVANCE DIRECTIVE DISCUSSION ADVANCE DIRECTIVE DISCUSSION [facility] Start: 04-16-2022 DEPRESSION ASSESSMENT DEPRESSION ASSESSMENT [facility] Start: 02-14-2022 End: 03-02-2023 Diagnostic mammography computer-aided detcj uni [facility] Radiology Routine 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, left (HCC) Expected: 02/14/2022, Expires: 03/02/2023 [facility] Work Phone: Comment on above: Expected: 02/14/2022, Expires: 3 Start: 12-15-2021 Influenza vaccination [facility] Start: 06-07-2021 COVID-19 VACCINE (4 - Booster for Pfizer series) COVID-19 VACCINE (4 - Booster for Pfizer series) [facility] Start: 04-16-2021 ADVANCE DIRECTIVE DISCUSSION ADVANCE DIRECTIVE DISCUSSION [facility] Start: 04-16-2021 DEPRESSION ASSESSMENT DEPRESSION ASSESSMENT [facility] Start: 04-01-2021 COVID-19 VACCINE (4 - Booster for Pfizer series) COVID-19 VACCINE (4 - Booster for Pfizer series) [facility] Start: 2016 Respiratory Syncytial Virus (RSV) or age 60 yrs+ (1 - 1-dose 75+ series) Respiratory Syncytial Virus (RSV) or age 60 yrs+ (1 - 1-dose 75+ series) [facility] Start: 2016 RSV High Risk: (Elderly (60+) or Population) (1 - 1-dose 75+ series) RSV High Risk: (Elderly (60+) or Population) (1 - 1-dose 75+ series) [facility] Start: 2016 RSV Vaccine (1 - 1-dose 75+ series) RSV Vaccine (1 - 1-dose 75+ series) [facility] Start: 2006 BONE DENSITY BONE DENSITY [facility] Start: 2006 Screening for osteoporosis Bone Density Screening [facility] Start: 2001 RSV patients and/or patients aged 60+ years (1 - 1-dose 60+ series) RSV patients and/or patients aged 60+ years (1 - 1-dose 60+ series) [facility] Start: 1996 Screening for osteoporosis DEXA (modify frequency per FRAX score) [facility] Start: 1991 Shingles vaccine (1 of 2) Shingles vaccine (1 of 2) [facility] Start: 1991 SHINGRIX VACCINE (1 of 2) SHINGRIX VACCINE (1 of 2) [facility] Start: 1991 Zoster Vaccines (1 of 2) Zoster Vaccines (1 of 2) [facility] Start: 1963 DTaP/Tdap/Td Vaccines (1 - Tdap) DTaP/Tdap/Td Vaccines (1 - Tdap) [facility] Start: 1960 DTaP/Tdap/Td vaccine (1 - Tdap) DTaP/Tdap/Td vaccine (1 - Tdap) [facility] Start: 1960 Urine microalbumin profile [facility] Start: 1959 Anxiety Screening Anxiety Screening [facility] Start: 1959 Depression Screening Depression Screening [facility] Start: 1959 Diabetes mellitus screening Diabetes Screening [facility] Start: 1953 Depression Screen Depression Screen [facility] Start: 1951 Lipid panel Lipids [facility] Start: 1941 Creatinine measurement Creatinine Level [facility] Start: 1941 Lipid panel Lipid Panel [facility] Start: 1941 Medicare Annual Wellness Visit Medicare Annual Wellness Visit (AWV) [facility] Start: 1941 Potassium measurement Potassium Level 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, left (HCC) Every 3 months for 10 Occurrences starting 07/28/2021 until 07/28/2022, 1 completed [facility] Work Phone: Comment on above: Every 3 months for 10 Occurrences starti ng 07/28/2021 until 07/28/2022, 1 completed End: 07-28-2022 Comprehensive metabolic 2000 panel - Serum or Plasma COMP METABOLIC PANEL Lab Routine 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, left (HCC) Every 3 months for 10 Occurrences starting 07/28/2021 until 07/28/2022 [facility] Work Phone: Comment on above: Every 3 months for 10 Occurrences starti ng 07/28/2021 until 07/28/2022 End: 06-14-2023 Diagnostic mammography computer-aided detcj bi [facility] Radiology Routine 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, left (HCC) 1 Occurrences starting 05/15/2022 until 06/14/2023 [facility] Work Phone: Comment on above: 1 Occurrences starting 05/15/2022 until 06/14/2023 INR in Platelet poor plasma by Coagulation assay [facility] Patient Education Stress cardiom yopathy Know your Meds [facility] Work Phone: Patient referral [facility] Work Phone: Prothrombin time (PT) [facility] End: 08-27-2022 Screening mammography bi 2-view breast inc cad DANIELLE SCREENING Radiology Routine 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, left (HCC) 1 Occurrences starting 07/28/2021 until 08/27/2022 [facility] Work Phone: Comment on above: 1 Occurrences starting 07/28/2021 until 08/27/2022 Urine culture [facility] URINE CULTURE - [facility] URINE CULTU RE - [facility] Lab Routine 10/29/2024 7:14 PM EDT [facility] US Abdominal Aorta f or screening Vascular US Abdominal Aorta Aneurysm AAA Screening Vascular Ultrasound Routine Acute on chronic left systolic heart failure Discoloration of skin of foot Abdominal aortic aneurysm, without rupture, unspecified ([facility]) 07/09/2024 2:02 PM EDT [facility] Service Area Work Phone: End: 06-14-2023 Us breast uni real time with image limited [facility] Work Phone: Comment on above: 1 Occurrences starting 05/15/2022 until 06/14/2023 [facility] Immunizations Immunization Date Immunization Notes Care Provider Caryn peace 01-23-2024 influenza, high dose seasonal, preservative-free Jack Rogel MD Work Phone: [facility] 01-23-2024 influenza virus vacc ine, unspecified formulation Generic Provider [facility] 01-23-2023 Influenza, High-dose Seasonal, Quadrivalent, Preservative Free Jack Rogel MD Work Phone: [facility] 02-08-2022 Influenza, High-dose Seasonal, Quadrivalent, Preservative Free Jack Rogel MD Work Phone: [facility] 02-04-2021 COVID-19 vaccine, ag e 12+ yr (PFIZER-BIONTECH - PURPLE TOP) Ru Blackman RN [facility] 01-19-2021 Influenza, High-dose Seasonal, Quadrivalent, Preservative Free Jack Rogel MD Work Phone: [facility] 06-03-2020 COVID-19 vaccine, ag e 12+ yr (PFIZER-BIONTECH - PURPLE TOP) Ru Blackman RN [facility] 05-12-2020 COVID-19 vaccine, ag e 12+ yr (PFIZER-BIONTECH - PURPLE TOP) Ru Blackman RN [facility] 01-15-2020 influenza virus vacc ine, unspecified formulation Tenzin Hsu MD Work Phone: [facility] 01-15-2020 influenza, seasonal, injectable Jack Rogel MD Work Phone: [facility] 12-26-2019 influenza, high dose seasonal, preservative-free Ru Blackman RN [facility] 12-26-2019 influenza virus vacc ine, unspecified formulation [facility] Work Phone: [facility] 01-24-2018 influenza, high dose seasonal, preservative-free Ru Blackman RN [facility] 01-25-2017 influenza, high dose seasonal, preservative-free Ru Blackman RN [facility] 01-20-2015 influenza virus vacc ine, unspecified formulation Tenzin Hsu MD Work Phone: [facility] 01-20-2015 influenza, injectabl e, quadrivalent, contains preservative Jack Rogel MD Work Phone: [facility] 10-12-2014 pneumococcal conjuga te vaccine, 13 valent Ru Blackman RN [facility] 04-05-2010 pneumococcal polysaccharide vaccine, 23 valbob Blackman RN [facility] Payers Date Payer Category Payer Unknown [id number] 2024 Medicare [id number] 2024 Self-pay [id number] 2023 Medicare (Managed Care) 1.2. [id number] 2023 Unknown [id number] 2018 Unknown ANTHEM BLUE CROS S AND BLUE SHIELD ANTHEM MEDIBLUE O [id number] 2018-Present [phone] [address] [place] [address] [facility] [id number] .[id number] 2018 Unknown [id number]. 1.13.159.2 .7.3.709697.315 1959 Unknown [id number] 1941 Unknown [id number] 2.16.840.1.651174.3.579.2 .355 1941 Unknown [id number] 2.16.840.1.182649.3.579.2 .593 1941 Unknown [id number] 2.16.840.1.286089.3.579.2 .593 1941 Unknown [id number] 2.16.840.1.102710.3.579.2 .593 1941 Unknown [id number] 2.16.840.1.834944.3.579.2 .593 1941 Unknown [id number] 2.16.840.1.253021.3.579.2 .593 1941 Unknown [id number] 2.16.840.1.574684.3.579.2 .593 1941 Unknown [id number] 2.16.840.1.927837.3.579.2 .593 1941 Unknown [id number] 2.16.840.1.678059.3.579.2 .1246 1941 Unknown [id number] 2.16.840.1.977620.3.579.2 .1246 1941 Unknown [id number] 2.16.840.1.807420.3.579.2 .1244 1941 Unknown [id number] 2.16.840.1.033099.3.579.2 .1244 1941 Unknown [id number] 2.16.840.1.085414.3.579.2 .1245 1941 Unknown [id number] 2.16.840.1.981341.3.579.2 .1245 1941 Unknown [id number] 2.16.840.1.426679.3.579.2 .173 1941 Unknown [id number] 2.16.840.1.170300.3.579.2 .173 1941 Unknown [id number] 2.16.840.1.195072.3.579.2 .173 1941 Unknown [id number] 2.16.840.1.427818.3.579.2 .1259 1941 Unknown [id number] 2.16.840.1.455723.3.579.2 .1259 1941 Unknown [id number] 2.16.840.1.909346.3.579.2 .1259 1941 Unknown [id number] 2.16.840.1.836666.3.579.2 .1259 1941 Unknown [id number] 2.16.840.1.617379.3.579.2 .1259 1941 Unknown [id number] 2.16.840.1.181705.3.579.2 .1259 1941 Unknown [id number] 2.16.840.1.342252.3.579.2 .1259 1941 Unknown [id number] 2.16.840.1.889804.3.579.2 .1259 1941 Unknown [id number] 2.16.840.1.444393.3.579.2 .1259 Unknown Fernando / [id number] Unknown [id number] 2.16.840.1.700683.3.579.2 .531 Unknown [id number] 2.16840.1.854930.3.579.2 .531 Unknown [id number] 2.16840.1.717794.3.579.2 .531 Social History Date Type Detail Facility Start: 04-05-2021 End: 11-29-2022 Tobacco smoking status NHIS Never smoked tobacco [facility] Start: 04-05-2021 End: 11-29-2022 Tobacco use and exposure Smokeless tobacco non-user [facility] Start: 05-12-2021 End: 10-07-2024 Alcohol intake Ex-drinker (finding) [facility] Start: 1940 Sex Assigned At Not on file C [facility] Start: 03-26-2021 End: 07-11-2024 Exposure to SARS-CoV-2 (event) Not sure [facility] Start: 05-24-2023 End: 09-03-2024 Sex Assigned At [facility] [employer] Other Start: 1940 Sex Assigned At Female F [facility] History of tobacco use Passive smoker [facility] Start: 05-24-2023 End: 09-03-2024 History of Social function [facility] Start: 04-03-2023 Alcohol Comment caffeine intak e: 3-4 cups daily coffee [facility] Start: 07-02-2023 End: 07-11-2024 Alcohol intake Lifetime non-drinker (finding) [facility] Work Phone: Start: 05-20-2024 End: 07-31-2024 Sex Female (finding) [facility] Medical Equipment Procedure Code Equipment Code Equipment Origin al Text Equipment Identifier Dates Check daily and as needed. [id number] Start: 09-25-2023 Goals Date Patient Goal Desired Activity /State Functional Status Date Assessment Result Facility 09-03-2024 Patient Health [facility] ionnaire 2 item (PHQ-2) [Reported] [facility] 04-04-2024 Functional status Patient at Baseline [facility] Work Phone: [facility] Mental Status Date Assessment Result Facility 04-04-2024 Cognitive function Cognitive Sta tus Patient at Baseline [facility] Work Phone: Clinical Notes 03-18-2021 to 10-26-2024 Note Date & Type Note Facility 10-26-2024 Evaluation note Diagnosis Onset Date Resolution Dysuria noneactive October 26 10:08am [facility] Work Phone: [phone]) 214-438606-24-2025 History of Present illness Narrative* HAYLEE Raines - 10/07/2024 8:45 AM EDTAssociated Order(s): L Inj/Asp: R knee Post-Procedure Diagnose(s): Arthritis of right knee; Chondromalacia, patella, right Images from the original note were not included. Orthopedic Office note: NAME: Johanny Forbes : 1940 (EST PT) - (R) LEG WEAKNESS / GIVING OUT ~06/2024 ; MULTIPLE FALLS D/T BUCKLING - S/P EMG B/L LE 09/19, PT AT [facility] XRAY RT KNEE EPIC 06/25/24 B/L LE EMG DR MISHRA 09/19/24 (PROCEDURE VISIT UNDER ENCOUNTERS) NO MRI NO MDP/PREDNISONE NO INJECTION PHYSICAL THERAPY @ [facility] NO PAIN MGMT WALKING WITH A CANE. FINISHED PHYSICAL THERAPY, NOW ABLE TO WALK BUT STILL HAVING DIFFICULTY. LEG GETS TIRED AND WANTS TO GIVE OUT. FEELS LIKE SHE IS OFF BALANCE. PAIN IN KNEE, USES A MUSCLE RUB. +TYL, NOT MUCH RELIEF. WAKES AT HS. 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 TAKING OXY PRN. Physical Exam General Appearance: Normal. Respiratory: No acute distress. Musculoskeletal: Right leg: Purplish discoloration of the toes with scab formation on the second toe at the nail margin. No evidence of acute ulceration. Bilateral lower legs: Posterior tibial pulsesare 2+ and present bilaterally. 1+ edema that is minimally pitting. Compartments are soft. Ankle: Ankle dorsiflexion and plantar flexion are 5 out of 5. No pain to the ankle joint. Hip: No pain with internal and external hip motion. Hip flexion is 5/5. Knee: Quad and hamstring strength is slightly weak at 4 out of 5. Pain is patellofemoral in nature with mild crepitus, no significant pain to the medial or lateral joint line, and no effusion. No pain with MCL or LCL stressing. No laxity. Patellar tracking is optimal. Skin: Warm and dry, no rash. Neurological: Negative straight leg raise. Reflexes are 2+ symmetric patella and Achilles. Negativeclonus. Orders Placed This Encounter Procedures L Inj/Asp This order was created via procedure documentation L Inj/Asp: R knee on 10/07/2024 9:33 AM Indications: pain Details: 22 G needle, anterolateral approach Medications: 40 mg methylPREDNISolone acetate 40 MG/ML; 1 mL bupivacaine PF 0.5 % Outcome: tolerated well, no immediate complications E UTILIZING ASEPTIC TECHNIQUE PT GIVEN INJECTION IN RIGHT KNEE, NEUROVASC INTACT S/P INJ, TOLERATEDWELL Procedure, treatment alternatives, risks and benefits explained, specific risks discussed. Consent was given by the patient. Results EM09/19/24 [facility] evidence of an axonal process affecting the right L4 nerve root most likely, with acute features indicating recent or ongoing injury. This is of moderate degree by electrical criteria. Given theconsiderable overlap of radicular territories; the actual nerve root involved may be one level higher or lower than suggested here. A peripheral neuropathy may also be developing, based on very mild findings on needle EMG. Sensory potentials were notably quite well preserved. A follow-up study in 1 year may be of greater diagnostic utility, should the clinical situation warrant confirmation. There is no suggestion by this study of myopathy, mononeuropathy, nor of more proximal processes e.g. plexopathy or radiculopathy. The paraspinal muscles were not studied due to the patient's Factor Xa inhibitor anticoagulation, resulting in somewhat lower sensitivity of this study to the presence of any radiculopathy. ICD-10-CM 1. Right leg pain M79.604 2. Lumbar radiculopathy, right M54.16 3. Chronic pain of right knee M25.561 G89.29 4. Arthritis of right knee M17.11 5. 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 She notes improvement with physical therapy and her leg feels more stable. She does have difficulty with prolonged walking and activity, noting some pain in the leg that is concerning for a lumbar radiculopathy. She has a negative straight leg raise today. Reflexes are 2+ symmetric patella and Achilles. Negative clonus. She has ananeurysm that is monitored frequently by a subspecialist. The patient is electing not to do surgeryat this time and is still watching. Diagnostic plan: Outpatient x-rays of her back will be obtained with a discussion of her EMG results. Treatment plan: An intra-articular injection was administered today in the right knee, which the patient agreed to. A pain management referral will be considered if symptoms persist. Clinical decision making: The patient had no further concerns or questions. Follow-up: The patient will follow up in 2 weeks. PROCEDURE Procedure Performed Intra-articular injection in the right knee Questions answered in laymen terms at the bedside. The diagnosis, home exercise plan and any ongoing restrictions/ recommendations reviewed. If unable to be reached in office, I recommend evaluation at nearest Emergency Room if any symptoms worsened or new symptoms develop for requiring urgent evaluation. 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 documented in this encounterE[facility] [id number] History of Present illness Narrative* Jack Rogel MD - 09/03/2024 2:30 PM EDT Images from the original note were not included. Johanny Forbes is a 84 y.o. female presents with chief complaint of Annual Exam HPI: History of Present Illness I have reviewed and reconciled the history and medication list with the patient today. CURRENT PCP/CARE TEAM: Patient Care Team: Jack Rogel MD as PCP - General (Family Medicine) Jack Rogel MD as PCP - [facility] Linette Blankenship NP as Nurse Practitioner (Family Medicine) Toi Horne DPM as Referring Physician (Podiatry) Tenzin Hsu MD as Referring Physician (Vascular Surgery) [facility] Over the past 2 weeks, how often have you been bothered by any of the following problems? Little interest or pleasure in doing things: More than half the days Feeling down, depressed, or hopeless: More than half the days Patient Health Questionnaire-2 Score: 4 Over the past 2 weeks, how often have you been bothered by any of the following problems? Trouble falling or staying asleep, or sleeping too much: Nearly every day Feeling tired or having little energy: More than half the days Poor appetite or overeating: Not at [...] Not at all Patient Health Questionnaire-9 Score: 9 Health Risk Assessment Form Do you need help eating, bathing, using the toilet, dressing, or getting around your home?: No Can you prepare your own meals?: Yes Can you do your own housework without help?: Yes Can you shop for groceries or clothes without help?: Yes Do you exercise for about 20 minutes 3 or more days a week?: No How confident are you that you can control and manage most of your health problems?: Not very confident Can you mange your money, credit cards and accounts, pay bills and taxes?: Yes Vision Screening: Yes, 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) Cancer ([facility]/H[facility]) Chronic kidney disease Diabetes mellitus ([facility]) Heart failure History of ischemic cardiomyopathy Hyperlipidemia ([facility]) Hypertension ([facility]) Missed Myocardial infarction ([facility]/H[facility]) NSTEMI (non-ST elevated myocardial infarction) ([facility]/H[facility]) Osteoporosis ([facility]) TIA (transient ischemic attack) SURGICAL HISTORY: Past Surgical History: Procedure Laterality Date APPENDECTOMY BIOPSY / EXCISION / DISSECTION AXILLARY NODE Left CARDIAC CATHETERIZATION 2019 DILATION AND CURETTAGE OF UTERUS EYE SURGERY PERC BX OR EXCISION LYMPH NODE Left 03/18/2021 SOCIAL HISTORY: Social History Tobacco Use Smoking status: Never Passive exposure: Past Smokeless tobacco: Never Vaping Use Vaping status: Never Used Substance Use Topics Alcohol use: Not Currently Comment: caffeine intake: 3-4 cups daily coffee Drug use: Never Depression: At risk (09/03/2024) PHQ-2 PHQ-2 Score: 4 FAMILY HISTORY: Family History Problem Relation Name Age of Onset Diabetes Mother Heart disease Mother Heart disease Father COPD Father Diabetes Sibling Heart disease Sibling MEDICATIONS: Current Outpatient Medications Medication Instructions apixaban (ELIQUIS) 5 mg, Oral, 2 times daily atorvastatin (LIPITOR) 80 mg, Every evening carvedilol (COREG) 6.25 mg, Oral, 2 times daily with meals glucose blood ([employer] Ultra) test strip Check daily and as needed. levothyroxine (SYNTHROID) 25 mcg, Oral, Daily, Take on an empty stomach Multiple Vitamin (MULTIVITAMIN ADULT PO) Multivitamin sildenafil (VIAGRA) 50 mg, 2 times daily spironolactone (ALDACTONE) 12.5 mg, Daily RT valsartan (DIOVAN) 40 mg, Oral, Daily ALLERGIES: Allergies Allergen Reactions Amino Acids Other Gabapentin Diarrhea Lisinopril Cough and Other Penicillins Other Dizzy and passed out Statins Other PHYSICAL EXAM: Visit Vitals BP 130/70 Pulse 97 Ht 5' 3 Wt 144 lb SpO2 99% BMI 25.51 kg/m OB Status Postmenopausal Smoking Status Never BSA 1.7 m BP Readings from Last 3 Encounters: 09/03/24 130/70 03/11/24 130/78 09/24/23 130/86 Wt Readings from Last 3 Encounters: 09/03/24 144 lb 05/29/24 144 lb 05/27/24 140 lb Physical Exam The patient is pleasant and [...] pattern. The breath sounds are Diffusely decreased but symmetrical without evidence of rhonchi or rales. No wheezing. The skin is warm and dry. The lower extremities have trace edema. The tips of all of her toes have some cyanosis from the D IP distal. There is a small eschar on her left great toe. No signs of secondary infection. Neurologic screening exam Demonstrates some mild left hand and arm weakness compared to the right. There also is some mild weakness to her quadriceps left compared to the right. The patient is alert.There is no overt gross evidence of cognitive impairment The patient has good eye contact and speech is clear. Appropriate affect. Results ASSESSMENT AND PLAN: Assessment/Plan 1. Encounter for Medicare annual wellness exam (Primary) The patient is here for their Annual Medicare Wellness visit. Demographics were updated. Self-assessment was completed and reviewed. Past medical, family, and social history were updated. The medication list updated and reviewed by the doctor. A list of other current medical providers is established and updated. Time was spent discussing health maintenance issues, ordering testing as appropriate,and a schedule was reviewed regarding recommended screening. We discussed safety issues and fall risk. Depression screening was completed and addressed as appropriate. Fall screening was completed and addressed. Cognitive function was assessed by direct observation, cognitive screening as indicated, and assessment of ability to perform ADL's. The BMI and discussed. Major risk factors for chronic disease including family history were discussed. An after visit summary is made available to the patient 2. Advance directive discussed with patient No changes to advanced directives 3. Encounter for screening for other disorder Clinically insignificant depression screening 4. Screening for alcohol problem Negative alcohol screen 5. Paroxysmal atrial fibrillation (CMS/HCC) Chronic problem, stable, comanaged with Cardiology. Surprisingly today she is in fairly regular rate and rhythm. 6. 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 7. 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 8. Pulmonary hypertension, mild (CMS/HCC) Chronic problem, stable, monitor longitudinally. Co treated with Cardiology. 9. Primary hypertension (CMS/HCC) Chronic problem, stable, monitor longitudinally. Co treated with Cardiology. 10. Ischemic cardiomyopathy (CMS/HCC) Chronic problem, stable, monitor longitudinally. Co treated with Cardiology. 11. Coronary artery disease involving [place] coronary artery of [place] heart without angina pectoris (CMS/HCC) Chronic problem, stable, monitor longitudinally. Co treated with Cardiology. 12. Pararenal abdominal aortic aneurysm (AAA) without rupture (CMS/HCC) Chronic problem, stable, monitor longitudinally. Co treated with Vascular surgery 13. Chronic kidney disease, stage 3b (HCC) (CMS/HCC) Chronic problem, stable, monitor longitudinally. 14. Type 2 diabetes mellitus with stage 3b chronic kidney disease, without long- term current use ofinsulin (HCC) (CMS/HCC) Chronic problem, stable, monitor longitudinally. 15. Mixed dyslipidemia (CMS/HCC) Chronic problem, stable, monitor longitudinally. documented in this encounterEastern [facility] [id number] Telephone encounter Note* Telephone Encounter - Ever Restrepo - 09/03/2024 12:29 PM EDT LVM to RC in regard to BLE referral from Dr Barajas--Approved to schedule--per Estimate no deductible, 35.00 applied to co-pay, also due at time of visit. [facility] [id number] Miscellaneous Notes* Telephone Encounter - Ever Restrepo - 09/03/2024 12:29 PM EDT LVM to RC in regard to BLE referral from Dr Barajas--Approved to schedule--per Estimate no deductible, 35.00 applied to co-pay, also due at time of visit. documented in this encounterEastern Missouri State HospitalKnsdrlytia45-42-7110 Evaluation + Plan note* Assessment & Plan Note - Otis CervantesD - 09/01/2024 1:51 PM EDT Associated Problem(s): Paroxysmal atrial fibrillation (Multi) Johanny is doing well on anticoagulation based on weight renal function and age no changes at this time due to pt concomitantly being on low dose Asprin will follow up sooner in 6 months. Counseled the patient to always take the aspirin with food or milk to avoid the potential of gastrointestinal bleed. [facility] Work Phone: 1(770) 874-234805-19-2025 Miscellaneous Notes* Assessment & Plan Note - Katharine Torres PharmD - 09/01/2024 1:51 PM EDTAssociated Problem(s): Paroxysmal atrial fibrillation (Multi) Johanny is doing well on anticoagulation based on weight renal function and age no changes at this time due to pt concomitantly being on low dose Asprin will follow up sooner in 6 months. Counseled the patient to always take the aspirin with food or milk to avoid the potential of gastrointestinal bleed. documented in this [facility] Work Phone: [phone]) 179-360905-19-2025 History of Present illness Narrative* Katharine Torres PharmD - 09/01/2024 1:40 PM EDT Images from the original note were not included. Pharmacist Clinic: Cardiology Management Johanny Forbes is a 84 y.o. female was referred to Clinical Pharmacy Team for anticoagulation management. Referring Provider: Eloise Galicia MD THIS IS A FOLLOW UP PATIENT APPOINTMENT. AT LAST VISIT ON 07/28/24 WITH PHARMACIST (Katharine Torres). Appointment was completed by the patient who was reached at [phone]. REVIEW OF PAST APPNT (IF APPLICABLE): Johanny is recently establishing care with Clinical Pharmacy, Cardiology Team for financial assistance The patient endorses that she cares for 2 children as dependents one who is physically disabled (chronic back pain) and the other who is mentally disabled ( requiring special education as a youth). Johanny is continuing on anticoagulation, no abnormal bruising or bleeding reported Completed medication reconciliation with the patient today Allergies Reviewed? Yes Allergies Allergen Reactions Atorvastatin Myalgia Guyuchv-Fpa-Pxi Reductase Inhibitors Other Lisinopril Other, Cough and Unknown Penicillins Diarrhea Dizzy and passed out No past medical history on file. Current Outpatient Medications on File Prior to Visit Medication Sig Dispense Refill apixaban (Eliquis) 2.5 mg tablet Take 1 tablet (2.5 mg) by mouth 2 times a day. 180 tablet 3 aspirin 81 mg EC tablet Take 1 tablet (81 mg) by mouth once daily. carvedilol (Coreg) 3.125 mg tablet Take 1 tablet (3.125 mg) by mouth 2 times a day. 180 tablet 1 magnesium oxide (Mag-Ox) 400 mg tablet Take 1 tablet (400 mg) by mouth 2 times a day. 180 tablet 3 mometasone (Elocon) 0.1 % cream Apply 1 Application topically once daily. rosuvastatin (Crestor) 5 mg tablet Take 1 tablet (5 mg) by mouth once daily. (Patient not taking: Reported on 07/28/2024) 90 tablet 1 spironolactone (Aldactone) 25 mg tablet Take 0.5 tablets (12.5 mg) by mouth once daily. 45 tablet 1 valsartan (Diovan) 40 mg tablet Take 1 tablet (40 mg) by mouth 2 times a day. 180 tablet 1 No current facility-administered medications on file prior to visit. RELEVANT LAB RESULTS: No results found for: BILITOT , CALCIUM , CO2 , CL , CREATININE , GLUCOSE , ALKPHOS , K , PROT , NA , AST , ALT , BUN , ANIONGAP , MG , PHOS , GGT , LDH , ALBUMIN , AMYLASE , LIPASE , GFRF , GFRMALE No results found for: TRIG , CHOL , LDLCALC , HDL No results found for: BMCBC , CBCDIF PHARMACEUTICAL ASSESSMENT: MEDICATION RECONCILIATION Was a medication reconciliation completed at this visit? Yes Home Pharmacy Reviewed? Yes, describe: [facility] Added: - None Changed: - none Removed: - Crestor Drug Interactions? Aspirin + Eliquis counseled pt on increased risk of bleed and to take aspirin with food. Medication Documentation Review Audit Reviewed by Katharine Torres, PharmD (Pharmacist) on 07/28/24 at 1437 Medication Order Taking? Sig Documenting Provider Last Dose Status apixaban (Eliquis) 2.5 mg tablet [id number] Take 1 tablet (2.5 mg) by mouth 2 times a day. Eloise Galicia MD Active aspirin 81 mg EC tablet [id number] Take 1 tablet (81 mg) by mouth once daily. Historical Provider, Active carvedilol (Coreg) 3.125 mg tablet [id number] Take 1 tablet (3.125 mg) by mouth 2 times a day. Eloise Galicia MD Active magnesium oxide (Mag-Ox) 400 mg tablet [id number] Take 1 tablet (400 mg) by mouth 2 times a day. Eloise Galicia MD Active mometasone (Elocon) 0.1 % cream [id number] No Apply 1 Application topically once daily. Historical Provider, Taking Active rosuvastatin (Crestor) 5 mg tablet [id number] Take 1 tablet (5 mg) by mouth once daily. Patient not taking: Reported on 07/28/2024 Eloise Galicia MD Active spironolactone (Aldactone) 25 mg tablet [id number] Take 0.5 tablets (12.5 mg) by mouth once daily. Eloise Galicia MD Active valsartan (Diovan) 40 mg tablet [id number] Take 1 tablet (40 mg) by mouth 2 times a day. Eloise Galicia MD Active DISEASE MANAGEMENT ASSESSMENT: ANTICOAGULATION ASSESSMENT The ASCVD Risk score (Isaiah ATKINSON, et al., 2019) failed to calculate for the following reasons: The 2019 ASCVD risk score is only valid for ages 40 to 79 Risk score cannot be calculated because patient has a medical history suggesting prior/existing ASCVD DIAGNOSIS: prevention of nonvalvular atrial fibrilliation stroke and systemic embolism - Patient is projected to be on anticoagulation indefinitely - [id number] Score: [10] (only included if diagnosis is atrial fibrillation) Age: [<65 (0)] [65-74 (+1)] [> 75 (+2)]: 2 Sex: [Male/Female (+1)]: 1 CHF history: [No/Yes(+1)]: 1 Hypertension history: [No/Yes(+1)]: 1 Stroke/TIA/thromboembolism history: [No/Yes(+2)]: 2 Vascular disease history (prior RI, peripheral artery disease, aortic plaque): [No/Yes(+1)]: 1 Diabetes history: [No/Yes(+1)]: 1 CURRENT PHARMACOTHERAPY: Eliquis 2.5 mg BID 83, 62.6 kg, Scr 2.1 RELEVANT PAST MEDICAL HISTORY: Xarelto, tried for PAP but pt did not start the drug. Affordability/Accessibility: ~> $100 for a 30 ds Adherence/Organization: pill organizer, denies adherence issues Adverse Reactions: ed [place] Recent Hospitalizations: no Recent Falls/Trauma: no Changes in Tobacco or Alcohol Intake: Tobacco: no Alcohol: no EDUCATION/COUNSELING: - Counseled patient on MOA, expectations, duration of therapy, contraindications, administration, and monitoring parameters - Counseled patient of side effects that are indicative of bleeding such as dark tarry stool, unexplainable bruising, or vomiting up a coffee ground like substance - Provided pt education on how to avoid GI bleed on aspirin, take with food or milk. Patient Assistance for Eliquis approved through 08/04/25. Will have to be renewed prior to that date to prevent lapse in coverage. Medication(s) will be received at no cost to patient from [facility]. DISCUSSION/NOTES: Pt got first shipment from home delivery Johanny is doing well on anticoagulation, she denies bruising, bleeding or recent hospitalizations or accidents. Counseled the patient on relevant drug drug interactions, namely: Eliquis and aspirin Instructed the patient to always take the aspirin with food or milk to prevent risk of GI bleed ASSESSMENT: Assessment/Plan Problem List Items Addressed This Visit Paroxysmal atrial fibrillation (Multi) Johanny is doing well on anticoagulation based on weight renal function and age no changes at this time due to pt concomitantly being on low dose Asprin will follow up sooner in 6 months. Counseled the patient to always take the aspirin with food or milk to avoid the potential of gastrointestinal bleed. Relevant Orders Referral to Clinical Pharmacy Anticoagulated Relevant Orders Referral to Clinical Pharmacy RECOMMENDATIONS/PLAN: Continue: Eliquis 2.5 mg BID Follow up: 6 months Last Appnt with Referring Provider: 07.11.24 Next Appnt with Referring Provider: 12.16.24 Clinical Pharmacist follow up: 03/02/25 VAF/Application Expiration: 08.04.25 Type of Encounter: Virtual Katharine Torres PharmD PGY-1 Resident Verbal consent to manage patient's drug therapy was obtained from the patient . They were informed they may decline to participate or withdraw from participation in pharmacy services at any time. Continue all meds under the continuation of care with the referring provider and clinical pharmacy team. * Kat Palomares PharmD - 09/01/2024 1:40 PM EDT I reviewed the progress note and agree with the resident's findings and plans as written. Case discussed with resident. Kat Palomares PharmD [phone] documented in [facility] Work Phone: [phone] 148-146505-15-2025 Telephone encounter Note* Telephone Encounter - MEME Jaquez - 08/28/2024 11:34 AM EDT Looks like Tete placed a referral to Dr Mishra but it must have been changed to Dr Rutledge. I faxed referral and EMG order to Dr Mishra. Office should be contacting her soon, but she could call the officeand see if she can schedule. [facility] [id number] Miscellaneous Notes* Telephone Encounter - MEME Jaquez - 08/28/2024 11:34 AM EDT Looks like Tete placed a referral to Dr Mishra but it must have been changed to Dr Rutledge. I faxed referral and EMG order to Dr Mishra. Office should be contacting her soon, but she could call the officeand see if she can schedule. * Telephone Encounter - Wendy Ramos - 08/28/2024 11:02 AM EDT Patient called and left vm that was going to refer her to . She has not heard from them. Please advise. documented in this encounterEastern Missouri State HospitalSpgofgpare57-07-4351 Telephone encounter Note* Telephone Encounter - Wendy Ramos - 08/28/2024 11:02 AM EDT Patient called and left vm that was going to refer her to . She has not heard from them. Please advise. [facility] [id number] Telephone encounter Note* Telephone Encounter - Dina Gunn - 08/27/2024 12:04 PM EDT Johanny left a message and just wanted Dr. Rogel to know that she can not take the Gabapentin. She states that when she takes it, it gives her diarrhea. [facility] HospitalLnzbhtvkdu38-75-6189 Miscellaneous Notes* Telephone Encounter - Dnia Gunn - 08/27/2024 12:04 PM EDT Johanny left a message and just wanted Dr. Rogel to know that she can not take the Gabapentin. She states that when she takes it, it gives her diarrhea. documented in this encounterEastern [facility] HospitalKybvjyflbg85-39-6486 Evaluation + Plan note* Assessment & Plan Note - Otis CervantesD - 07/28/2024 2:54 PM EDT Associated Problem(s): Paroxysmal atrial fibrillation (Multi) Johanny is tolerating Eliquis well with no reported adverse effects. Counseled pt on relevant adverse affects and provided her with PharmD phone number if any additional questions come up. Will continueher on the same dosing for Eliquis. [facility] Work Phone: [phone] 197-375904-14-2025 Miscellaneous Notes* Assessment & Plan Note - Otis CervantesD - 07/28/2024 2:54 PM EDTAssociated Problem(s): Paroxysmal atrial fibrillation (Multi) Johanny is tolerating Eliquis well with no reported adverse effects. Counseled pt on relevant adverse affects and provided her with PharmD phone number if any additional questions come up. Will continueher on the same dosing for Eliquis. documented in this [facility] Work Phone: [phone]) 727-444804-14-2025 History of Present illness Narrative* Katharine Torres PharmD - 07/28/2024 2:00 PM EDT Images from the original note were not included. Pharmacist Clinic: Cardiology Management Johanny Forbes is a 84 y.o. female was referred to Clinical Pharmacy Team for Atrial Fibrillation and Patient Assistance management. Referring Provider: Eloise Galicia MD THIS IS A NEW PATIENT APPOINTMENT. PATIENT WILL BE ESTABLISHING CARE WITH CLINICAL PHARMACY. Appointment was completed by the patient who was reached at [phone]. REVIEW OF PAST APPNT (IF APPLICABLE): N/A new appt Allergies Reviewed? Yes Allergies Allergen Reactions Atorvastatin Myalgia Hhvhwge-Bxr-Ylk Reductase Inhibitors Other Lisinopril Other, Cough and Unknown Penicillins Diarrhea Dizzy and passed out No past medical history on file. Current Outpatient Medications on File Prior to Visit Medication Sig Dispense Refill apixaban (Eliquis) 2.5 mg tablet Take 1 tablet (2.5 mg) by mouth 2 times a day. 180 tablet 0 aspirin 81 mg EC tablet Take 1 tablet (81 mg) by mouth once daily. carvedilol (Coreg) 3.125 mg tablet Take 1 tablet (3.125 mg) by mouth 2 times a day. 180 tablet 1 magnesium oxide (Mag-Ox) 400 mg tablet Take 1 tablet (400 mg) by mouth 2 times a day. 180 tablet 3 mometasone (Elocon) 0.1 % cream Apply 1 Application topically once daily. rosuvastatin (Crestor) 5 mg tablet Take 1 tablet (5 mg) by mouth once daily. (Patient not taking: Reported on 07/28/2024) 90 tablet 1 spironolactone (Aldactone) 25 mg tablet Take 0.5 tablets (12.5 mg) by mouth once daily. 45 tablet 1 valsartan (Diovan) 40 mg tablet Take 1 tablet (40 mg) by mouth 2 times a day. 180 tablet 1 No current facility-administered medications on file prior to visit. RELEVANT LAB RESULTS: No results found for: BILITOT , CALCIUM , CO2 , CL , CREATININE , GLUCOSE , ALKPHOS , K , PROT , NA , AST , ALT , BUN , ANIONGAP , MG , PHOS , GGT , LDH , ALBUMIN , AMYLASE , LIPASE , GFRF , GFRMALE No results found for: TRIG , CHOL , LDLCALC , HDL No results found for: BMCBC , CBCDIF PHARMACEUTICAL ASSESSMENT: MEDICATION RECONCILIATION Was a medication reconciliation completed at this visit? Yes Home Pharmacy Reviewed? Yes, describe: [facility] [employer] [facility] Added: - None Changed: - none Removed: - Crestor Drug Interactions? No Medication Documentation Review Audit Reviewed by Katharine Torres, PharmD (Pharmacist) on 07/28/24 at 1437 Medication Order Taking? Sig Documenting Provider Last Dose Status apixaban (Eliquis) 2.5 mg tablet [id number] Take 1 tablet (2.5 mg) by mouth 2 times a day. Eloise Galicia MD Active aspirin 81 mg EC tablet [id number] Take 1 tablet (81 mg) by mouth once daily. Historical ProviderMD Active carvedilol (Coreg) 3.125 mg tablet [id number] Take 1 tablet (3.125 mg) by mouth 2 times a day. Eloise Galicia MD Active magnesium oxide (Mag-Ox) 400 mg tablet [id number] Take 1 tablet (400 mg) by mouth 2 times a day. Eloise Galicia MD Active mometasone (Elocon) 0.1 % cream [id number] No Apply 1 Application topically once daily. Historical ProviderMD Taking Active rosuvastatin (Crestor) 5 mg tablet [id number] Take 1 tablet (5 mg) by mouth once daily. Patient not taking: Reported on 07/28/2024 Eloise Galicia MD Active spironolactone (Aldactone) 25 mg tablet [id number] Take 0.5 tablets (12.5 mg) by mouth once daily. Eloise Galicia MD Active valsartan (Diovan) 40 mg tablet [id number] Take 1 tablet (40 mg) by mouth 2 times a day. Eloise Galicia MD Active DISEASE MANAGEMENT ASSESSMENT: ANTICOAGULATION ASSESSMENT The ASCVD Risk score (Isaiah ATKINSON, et al., 2019) failed to calculate for the following reasons: The 2019 ASCVD risk score is only valid for ages 40 to 79 Risk score cannot be calculated because patient has a medical history suggesting prior/existing ASCVD DIAGNOSIS: prevention of nonvalvular atrial fibrilliation stroke and systemic embolism - Patient is projected to be on anticoagulation indefinitely - [id number] Score: [10] (only included if diagnosis is atrial fibrillation) Age: [<65 (0)] [65-74 (+1)] [> 75 (+2)]: 2 Sex: [Male/Female (+1)]: 1 CHF history: [No/Yes(+1)]: 1 Hypertension history: [No/Yes(+1)]: 1 Stroke/TIA/thromboembolism history: [No/Yes(+2)]: 2 Vascular disease history (prior RI, peripheral artery disease, aortic plaque): [No/Yes(+1)]: 1 Diabetes history: [No/Yes(+1)]: 1 CURRENT PHARMACOTHERAPY: Eliquis 2.5 mg BID 83, 62.6 kg, Scr 2.1 RELEVANT PAST MEDICAL HISTORY: Xarelto, tried for PAP but pt did not start the drug. Affordability/Accessibility: ~> $100 for a 30 ds Adherence/Organization: pill organizer, denies adherence issues Adverse Reactions: Crestor, weakness Recent Hospitalizations: 04.02.24 Recent Falls/Trauma: 2.5 months 3 times right leg collapse Changes in Tobacco or Alcohol Intake: Tobacco: no Alcohol: no EDUCATION/COUNSELING: - Counseled patient on MOA, expectations, duration of therapy, contraindications, administration, and monitoring parameters - Counseled patient of side effects that are indicative of bleeding such as dark tarry stool, unexplainable bruising, or vomiting up a coffee ground like substance - Patient Assistance Program (PAP) Application for program to be submitted for the following medications: [facility] Permanent Address: [place] Prescription Insurance: Yes Members of Household: 3 Files Taxes: Yes Patient will be other: download the document from the pt chart Patient verbally reports monthly or yearly income which is less than 400% federal poverty level Patient aware this process may take up to 6 weeks. If approved medication must be filled through [facility] and MEDICATION WILL BE MAILED TO PATIENT. DISCUSSION/NOTES: Johanny is recently establishing care with Clinical Pharmacy, Cardiology Team for financial assistance The patient endorses that she cares for 2 children as dependents one who is physically disabled (chronic back pain) and the other who is mentally disabled ( requiring special education as a youth). Johanny is continuing on anticoagulation, no abnormal bruising or bleeding reported Completed medication reconciliation with the patient today ASSESSMENT: Assessment/Plan Problem List Items Addressed This Visit Paroxysmal atrial fibrillation (Multi) Johanny is tolerating Eliquis well with no reported adverse effects. Counseled pt on relevant adverse affects and provided her with PharmD phone number if any additional questions come up. Will continueher on the same dosing for Eliquis. Relevant Orders Referral to Clinical Pharmacy Anticoagulated Relevant Orders Referral to Clinical Pharmacy RECOMMENDATIONS/PLAN: Apply for PAP for Eliquis Follow up in 1 month to discuss determination then q 3 months for monitoring. Last Appnt with Referring Provider: 07.11.24 Next Appnt with Referring Provider: 12.16.24 Clinical Pharmacist follow up: 09.01.24 VAF/Application Expiration: Pending Type of Encounter: Virtual Katharine Torres PharmD Verbal consent to manage patient's drug therapy was obtained from the patient . They were informed they may decline to participate or withdraw from participation in pharmacy services at any time. Continue all meds under the continuation of care with the referring provider and clinical pharmacy team. * Kat Palomares PharmD - 07/28/2024 2:00 PM EDT I reviewed the progress note and agree with the resident's findings and plans as written. Case discussed with resident. Kat Palomares PharmD [phone] documented in this [facility] Work Phone: 1(798) 281-766903-28-2025 History of Present illness Narrative* Eloise Galicia MD - 07/11/2024 2:00 PM EDT Chief Complaint: Seen 2 weeks ago, at which time additional testing was ordered to include echocardiogram, and ultrasound of the abdominal aorta. We started patient on regular twice daily dosing of Eliquis, and Entresto samples were provided. Chief Complaint Patient presents with Follow-up 2 week Follow up to discuss AAA US Results Accompanied by daughter to the office Subjective : Says shortness of breath is slightly better and overall she feels a little more energy. Feet hurt particularly when they are elevated. She is having to take medications to help her sleep through the night Cost of Eliquis and Entresto is prohibitive for her. She is currently on Diovan 40 mg daily, and off Entresto Review of Systems 12 point review of systems is negative or noncontributory except as noted no bleeding diathesis. Uses cane as ambulatory aid History so Far : Paroxysmal atrial fibrillation (Multi) History of RI (myocardial infarction) Acute arterial ischemic stroke, multifocal, posterior circulation, right (Multi) BMI 25.0-25.9,adult Never smoked tobacco STORMY inhibitor intolerance Primary hypertension CKD 3a Echocardiogram January 2019-LVEF 45%, global hypokinesis with [...] nonflow-limiting disease, LVEF 55%, medical therapy recommended. Echocardiogram July 2023-LVEF 50 to 55% impaired relaxation pattern of LV diastolic filling mild mitral regurgitation trace to mild tricuspid regurgitation RVSP 21 mmHg EKG 06/01/2023 poor baseline, atrial fibrillation, left ventricular hypertrophy Hospitalized March 2024 with acute coronary syndrome type symptoms ruled in for myocardial infarction Diagnosed with Takotsubo syndrome. Peak troponin 6712 Echocardiogram March 2024-LVEF 30 to 35% diastolic dysfunction severe hypokinesis distal septum apex anterior wall distal inferior wall left atrium 3.2 cm no pericardial effusion aortic and mitralsclerosis RVSP not estimated Cardiac catheterization March 2024-mid LAD 30 to 50% tubular unchanged from 2018 distal LAD 90% focal first diagonal 95% ostial unchanged from 2018 LVEF 25% LVEDP 20 mmHg Echocardiogram 05/19/2024-LVEF 45 to 50% mild hypokinesis distal anterior septal wall and apex RV systolic pressure 27.5 mmHg no mention of mass or thrombus. Abdominal aortic aneurysm is noted in the discharge summary, I do not have access to testing that suggest that patient has abdominal aortic aneurysm. Statin intolerance. Positive family 25-distal abdominal aortic aneurysm 4.9 x 4.9 cm in AP and transverse diameter respectively, 7.5 cm in length, with layered thrombus. No prior studies available for comparison History of breast cancer with metastasis to the left axillary lymph node Objective Wt Readings from Last 3 Encounters: 07/11/24 62.6 kg (138 lb) 05/19/24 65.3 kg (144 lb) 08/09/23 66.2 kg (146 lb) Vitals: 07/11/24 1419 BP: 132/82 BP Location: Left arm Patient Position: Sitting Pulse: 68 Weight: 62.6 kg (138 lb) Height: 1.6 m (5' 3 ) Physical Exam: Patient is awake alert oriented x3, no acute distress Lungs are clear, breath sounds are distant Heart sounds are regular without murmur rub or gallop Extremities show no edema, there is bluish discoloration of the toes in both feet, the right foot color is better than the left. Distal pulses are 2+ to 3+. Ambulates with assistance. Meds: Current Outpatient Medications Medication Instructions apixaban (ELIQUIS) 2.5 mg, oral, 2 times daily aspirin 81 mg, Daily carvedilol (COREG) 3.125 mg, oral, 2 times daily magnesium oxide (MAG-OX) 400 mg, oral, 2 times daily mometasone (Elocon) 0.1 % cream 1 Application, Daily RT rosuvastatin (CRESTOR) 5 mg, oral, Daily spironolactone (ALDACTONE) 12.5 mg, oral, Daily valsartan (DIOVAN) 40 mg, oral, 2 times daily Allergies Allergen Reactions Atorvastatin GI Upset Lisinopril Cough, Other and Unknown Penicillins Other Dizzy and passed out [place]aq-Bib-Ldy Reductase Inhibitors Other LABS: Reviewed all available pertinent laboratory data and diagnostic testing results that occurred afterthe last office visit with me On 05/29/2024, sodium was 138 potassium 5, BUN 46 creatinine 2.1 GFR 22 On 06/04/2024, BUN 32 creatinine 1.6 potassium 4.3 GFR 31.5 Assessment: 1. Paroxysmal atrial fibrillation (Multi) Follow Up In Cardiology Referral to Clinical Pharmacy 2. Anticoagulated Referral to Clinical Pharmacy 3. Primary hypertension valsartan (Diovan) 40 mg tablet carvedilol (Coreg) 3.125 mg tablet 4. Aortic aneurysm, unspecified portion of aorta, unspecified whether ruptured Follow Up In Cardiology 5. Mixed hyperlipidemia rosuvastatin (Crestor) 5 mg tablet 6. Type 2 RI (myocardial infarction) (Multi) 7. Stage 3b chronic kidney disease (Multi) 8. BMI 24.0-24.9, adult 9. Acute on chronic left systolic heart failure spironolactone (Aldactone) 25 mg tablet Clinical Decision Making: Patient with Takotsubo syndrome, with improvement in LV function, Eliquis and Entresto are prohibitively expensive for her. Her renal function needs to be closely followed hydration is encouraged no evidence of volume overload. Has infrarenal abdominal aortic aneurysm. Has what looks like cholesterol embolization to both feet. Has statin intolerance. Will discontinue Entresto and switch to Diovan 40 mg p.o. twice daily Patient assistance forms for Katie submitted Vascular surgery consultation regarding abdominal aortic aneurysm and possible cholesterol embolization to her feet Basic metabolic profile every 2 weeks x 3. In July 2021 her GFR was 41 Basic metabolic profile prior to next visit Reviewed results of echocardiogram and blood work and abdominal aortic ultrasound with patient and daughter [id number] score is 5 Not interested in cardiac rehabilitation, it was offered and recommended. She says she is currentlydoing physical therapy for her knee and that is good enough exercise Follow up : 6 months I,Mely Reyes RN am scribing for, and in the presence of Dr. Eloise Galicia MD, FACC. I, Dr. Eloise Galicia MD, FACC, personally performed the services described in the documentation as scribed by Mely Reyes RN in my presence, and confirm it is both accurate and complete. [facility] Work Phone: [phone] 806-828703-28-2025 Instructions* Patient Instructions* Mile Ricketts CMA - 07/11/2024 2:00 PM EDT Please bring all medicines, vitamins, and herbal supplements with you when you come to the office. Prescriptions will not be filled unless you are compliant with your follow up appointments or have a follow up appointment scheduled as per instruction of your physician. Refills should be requested at the time of your visit. Fall Prevention Education Given documented [facility] Work Phone: 1(365) 627-771603-12-2025 History of Present illness Narrative* Jr. Giorgio Barajas, - 06/25/2024 8:30 AM EDT Images from the original note were not included. NAME: Johanny Forbes : 1940 HISTORY OF PRESENT ILLNESS: NEW PT Johanny Forbes is an 84 y.o. @ female. (NEW PT) (DR ROGEL REFERRAL) - (R) LEG WEAKNESS / GIVING OUT ~1 WK ; MULTIPLE FALLS D/T BUCKLING XRAY TODAY, 06/25/24 IN [facility] NO MRI NO MDP/PREDNISONE NO INJECTION NO PHYSICAL THERAPY NO PAIN MGMT PRESENTS WITH WALKER. USING @ALL TIMES. NOTES BUCKLING ~ 1 WK. MULTIPLE OCCASIONS OF BUCKLING / FALLS. ANTERIOR DISCOMFORT. RADIATES INTO HIP. DENIES N/T. ADMITS SWELLING AFTER FALL. DENIES POPPING /CLICKING / GRINDING. DENIES WAKING HS. FULL ROM. TAKING OXY / ACETAMINOPHEN (FOR TOE ISSUES) (DR. ALEJO) - WITH RELIEF. TOOK TIME RELEASE MORPHINE (DR. FRAGA) - STOPPED TAKING D/T STOMACH DISCOMFORT. PAST MEDICAL HISTORY: Past Medical History: Diagnosis Date Appendicitis Arthritis Atypical squamous cells of undetermined significance (ASCUS) on Papanicolaou smear of cervix CAD (coronary artery disease) ([facility]/HCC) Cancer ([facility]/H[facility]) Chronic kidney disease Diabetes mellitus ([facility]/H[facility]) Heart failure ([facility]/H[facility]) History of ischemic cardiomyopathy Hyperlipidemia ([facility]/H[facility]) Hypertension ([facility]) Missed Myocardial infarction ([facility]/HCC) NSTEMI (non-ST elevated myocardial infarction) ([facility]) Osteoporosis ([facility]) TIA (transient ischemic attack) PAST SURGICAL HISTORY: Past Surgical History: Procedure Laterality Date APPENDECTOMY BIOPSY / EXCISION / DISSECTION AXILLARY NODE Left CARDIAC CATHETERIZATION 2018 DILATION AND CURETTAGE OF UTERUS EYE SURGERY PERC BX OR EXCISION LYMPH NODE Left 03/18/2021 SOCIAL HISTORY: Social History Occupational History Not on file Tobacco Use Smoking status: Never Passive exposure: Past Smokeless tobacco: Never Vaping Use Vaping status: Never Used Substance and Sexual Activity Alcohol use: Not Currently Comment: caffeine intake: 3-4 cups daily coffee Drug use: Never Sexual activity: Not on file ALLERGIES: Allergies Allergen Reactions Amino Acids Other Lisinopril Cough and Other Penicillins Other Dizzy and passed out Statins Other HOME MEDICATIONS: Current Outpatient Medications Medication Instructions apixaban (ELIQUIS) 5 mg, Oral, 2 times daily carvedilol (COREG) 6.25 mg, Oral, 2 times daily with meals Entresto 24-26 MG tablet 1 tablet, 2 times daily ezetimibe (ZETIA) 10 mg, Daily glucose blood (Watson Brownuch Ultra) test strip Check daily and as needed. levothyroxine (SYNTHROID) 25 mcg, Oral, Daily, Take on an empty stomach Multiple Vitamin (MULTIVITAMIN ADULT PO) Multivitamin ondansetron ODT (ZOFRAN-ODT) 4 mg, Every 6 hours PRN rosuvastatin (CRESTOR) 5 mg, Daily RT spironolactone (ALDACTONE) 12.5 mg, Daily RT valsartan (DIOVAN) 40 mg, Oral, Daily REVIEW OF SYSTEMS: Review of Systems Vitals: There is no height or weight on file to calculate BMI. Tobacco Use: Low Risk (06/25/2024) Patient History Smoking Tobacco Use: Never Smokeless Tobacco Use: Never Passive Exposure: Past Alcohol Use: Not on file PHYSICAL EXAM: Knee Musculoskeletal Exam Gait Antalgic: right Inspection Leg length disparity: no discrepancy Right Erythema: none Effusion: mild Edema: none Ecchymosis: none Deformity: none Alignment: varus Palpation Right Right knee palpation is unremarkable. Increased warmth: none Masses: none Crepitus: patellofemoral and medial Tenderness: present Medial joint line: moderate Patella: mild Range of Motion Right Right knee range of motion is normal and full. Active extension: 10 Passive extension: 5 Active flexion: 115 Passive flexion: 120 Range of motion additional comments: First second and third digits were purple diminished pulse noted to right lower extremity dorsalis pedis. Strength Right Right knee strength is normal. Extension: 5/5. Extension is affected by pain. Flexion: 5/5. Flexion is affected by pain. Instability Right Instability signs: none - stable Anterior drawer: normal Neurovascular Right Right knee neurovascular exam is normal. Pulses - PT: normal Posterior tibial: 2+ Capillary refill: warm and well-perfused Special Signs Right Right knee special signs are normal. Patellar apprehension: none General Constitutional: appears stated age Labored breathing: no Psychiatric: normal mood and affect Neurological: alert Skin: intact Lymphadenopathy: none IMAGING: XR knee 1 or 2 views right Imaging Result: AP and lateral of right knee showed varus deformity. There was narrowing of the medial joint line with evidence of flattening of the articular surfaces to the medial tibial plateau and medial femoralcondyle. There was evidence of subchondral sclerosis to the medial joint line and patellofemoral joint. There is marginal osteophytes noted to the medial joint line and patellofemoral joint. There isno evidence of fracture dislocations. Bony structures viewed showed appropriate ossification. Impression: Mild varus deforming arthritic degeneration , right knee. No acute bony process noted. Procedures Orders Placed This Encounter Procedures XR knee 1 or 2 views right Order Specific Question: Reason for exam: Answer: PAIN Ambulatory referral to Physical Therapy Increase ROM and Strength of Right Knee Standing Status: Future Standing Expiration Date: 12/26/2024 Referral Priority: Routine Referral Type: Rehabilitation - Outpatient Referral Reason: Consult and Treat Referral Location: [facility] Schedule Requested Specialty: Physical Therapy Number of Visits Requested: 1 EMG AND NERVE CONDUCTION STUDY RT LOWER EXTREMITY EMG Standing Status: Future Standing Expiration Date: 06/25/2025 Scheduling Instructions: Schedule with [facility] ADVANCED NEUROLOGY ASSESSMENT: ICD-10-CM 1. Right leg weakness R29.898 Ambulatory referral to Orthopaedic Surgery Ambulatory referral to Physical Therapy 2. Acute pain of right knee M25.561 XR knee 1 or 2 views right Ambulatory referral to Physical Therapy 3. Numbness R20.0 EMG AND NERVE CONDUCTION STUDY PLAN: We have recommended physical therapy 3 times a week for 6 weeks to increase strength and range of motion right knee. She is getting a aortic stent by Dr. Leoanrd for a descending aortic aneurysm. We have also recommended an EMG of her right lower extremity to rule out lumbar radiculopathy and we'll see her back in 6 weeks. If her symptoms persist or worsen, we may recommend a cortisone injection. Questions answered in laymen terms at the bedside. The diagnosis, home exercise plan and any ongoing restrictions/ recommendations reviewed. If unable to be reached in office, I recommend evaluation at nearest Emergency Room if any symptoms worsened or new symptoms develop for requiring urgent evaluation. documented in this encounterEastern [facility] State [id number] History of Present illness Narrative* Toi Horne, BOY - 05/29/2024 10:30 AM EST Patient: Johanny Forbes : 1940 PCP: Jack Rogel MD SUBJECTIVE This is a 84 y.o. female that presents today for a chief complaint of blue shoe to bilateral great digits and toes. States it has been present for the past few months but does state she has history of Raynaud's disease. She also notices similar findings in her fingers as well. Denies pain to the area and states that she was seen at local hospital for heart condition and had studies done to her lower extremities relates good findings. She presents today for possible treatment options. Allergies: Allergies Allergen Reactions Amino Acids Other Lisinopril Cough and Other Penicillins Other Dizzy and passed out Statins Other Past Medical History: Past Medical History: Diagnosis Date Appendicitis Arthritis Atypical squamous cells of undetermined significance (ASCUS) on Papanicolaou smear of cervix CAD (coronary artery disease) ([facility]) Cancer ([facility]) Chronic kidney disease Diabetes mellitus ([facility]) Heart failure ([facility]) History of ischemic cardiomyopathy Hyperlipidemia ([facility]) Hypertension ([facility]) Missed Myocardial infarction ([facility]HCC) NSTEMI (non-ST elevated myocardial infarction) ([facility]) Osteoporosis ([facility]) TIA (transient ischemic attack) Medications: Current Outpatient Medications: apixaban (Eliquis) 5 MG tablet, Take 1 tablet (5 mg) by mouth in the morning and 1 tablet (5 mg) before bedtime., Disp: 60 tablet, Rfl: 0 carvedilol (Coreg) 6.25 MG tablet, Take 1 tablet (6.25 mg) by mouth in the morning and 1 tablet (6.25 mg) in the evening. Take with meals., Disp: , Rfl: Entresto 24-26 MG tablet, Take 1 tablet by mouth in the morning and 1 tablet before bedtime., Disp:, Rfl: ezetimibe (Zetia) 10 MG tablet, Take 10 mg by mouth in the morning., Disp: , Rfl: glucose blood (Watson Brownuch Ultra) test strip, Check daily and as needed., Disp: 50 strip, Rfl: 1 levothyroxine (Synthroid) 25 MCG tablet, Take 1 tablet (25 mcg) by mouth Daily Take on an empty stomach, Disp: 90 tablet, Rfl: 1 Multiple Vitamin (MULTIVITAMIN ADULT PO), Multivitamin, Disp: , Rfl: ondansetron ODT (Zofran-ODT) 4 MG disintegrating tablet, Take 4 mg by mouth every 6 (six) hours if needed, Disp: , Rfl: rosuvastatin (Crestor) 5 MG tablet, Take 5 mg by mouth in the morning., Disp: , Rfl: spironolactone (Aldactone) 25 MG tablet, Take 12.5 mg by mouth in the morning., Disp: , Rfl: valsartan (Diovan) 40 MG tablet, Take 1 tablet (40 mg) by mouth Daily, Disp: 90 tablet, Rfl: 1 Social History: Social History Socioeconomic History Marital status: Spouse name: Not on file Number of children: Not on file Years of education: Not on file Highest education level: Not on file Occupational History Not on file Tobacco Use Smoking status: Never Passive exposure: Past Smokeless tobacco: Never Vaping Use Vaping status: Never Used Substance and Sexual Activity Alcohol use: Not Currently Comment: caffeine intake: 3-4 cups daily coffee Drug use: Never Sexual activity: Not on file Other Topics Concern Not on file Social History Narrative Not on file Social Drivers of Health Financial Resource Strain: Not on file Food Insecurity: Not on file Transportation Needs: Not on file Physical Activity: Not on file Stress: Not on file Social Connections: Not on file Intimate Partner Violence: Not on file Housing Stability: Not on file ROS: General: denies fever, chills, fatigue, malaise Gastrointestinal: denies abdominal pain, ulcers, or changes in appetite or bowel habits Musculoskeletal: Positive history of arthritis, denies loss of strength, pain to hip, knees, back Cardiovascular: denies CP, palpitations, irregular rhythms. Positive history of coronary artery disease OBJECTIVE LE EXAM: DERM: Positive hair growth to b/l feet with good skin turgor noted. Negative openings in skin. Bluish hue to distal phalanx of bilateral great digits and to digits 2 3 and 4 bilaterally which does intermittently changed to white and red type appearance with negative openings and skin VASC: Palpable pedal pulsed b/l with warm to cool tibia to toes b/l with warm to warm tibia to toesbilateral NEURO: Gross sensation intact digits 1-10 and b/l feet ORTHO: +5/5 DF/PF/IN/EV right, +5/5 DF/PF/IN/EV left. 20 degrees inversion and 10 degrees eversion STJ b/l. Ankle ROM less than 10 degrees b/l. Negative pain on palpation to bilateral great digits XRAY: US: ASSESSMENT 1. Raynaud's phenomenon without gangrene PLAN Discussed with patient most likely condition has Raynaud's disease and that she is to keep feet warm at all times aware warm protective clothing to her feet and toes. Did discuss if she notices any blisters or dry black like lesion to contact Podiatry and also discussed possible vascular referral however given visual confirmation of color changes of the toes most likely Raynaud's phenomenon with no further intervention at this time Toi Horne DPM documented in this encounterEastern Missouri State [id number] History of Present illness Narrative* Jack Rogel MD - 05/27/2024 1:45 PM EST Images from the original note were not included. Patient ID: Johanny Forbes is a 84 y.o. female who presents for: Pt had segmental pressures done previously because she was c/o of the toe issue with them being cyanotic. After that she was referred to Dr Horne and had an appointment scheduled in Apr but cancelled. She also had another OV scheduled with them on 05/22/2024 which she cancelled. She is still having issues with the cyanosis. She states her investigator operator told her podiatry will not be able to help her. Review of Systems Constitutional: Negative for activity change and fatigue. Respiratory: Negative for cough, shortness of breath and wheezing. Cardiovascular: Negative for chest pain, palpitations and leg swelling. Neurological: Negative for light-headedness and headaches. Objective Today her toes actually look a little bit better than when I last saw them. When I last saw them they look like they were becoming mummified on the tips. Today there is some mild remnant to this and there is erythema at the proximal nail bed and up to the last joint. There is no specific paleness noted. I still it only intermittently can barely palpate the dorsal pedalus. Visit Vitals Ht 5' 3 Wt 140 lb BMI 24.80 kg/m OB Status Postmenopausal Smoking [...] (5 mg) before bedtime. 60 tablet 0 carvedilol (Coreg) 6.25 MG tablet Take 1 tablet (6.25 mg) by mouth in the morning and 1 tablet (6.25 mg) in the evening. Take with meals. Entresto 24-26 MG tablet Take 1 tablet by mouth in the morning and 1 tablet before bedtime. ezetimibe (Zetia) 10 MG tablet Take 10 mg by mouth in the morning. glucose blood (OneTouch Ultra) test strip Check daily and as needed. 50 strip 1 levothyroxine (Synthroid) 25 MCG tablet Take 1 tablet (25 mcg) by mouth Daily Take on an empty stomach 90 tablet 1 Multiple Vitamin (MULTIVITAMIN ADULT PO) Multivitamin ondansetron ODT (Zofran-ODT) 4 MG disintegrating tablet Take 4 mg by mouth every 6 (six) hours if needed rosuvastatin (Crestor) 5 MG tablet Take 5 mg by mouth in the morning. spironolactone (Aldactone) 25 MG tablet Take 12.5 mg by mouth in the morning. valsartan (Diovan) 40 MG tablet Take 1 tablet (40 mg) by mouth Daily 90 tablet 1 No current facility-administered medications on file prior to visit. 1. Toe cyanosis At this point it appears to be less of a circulatory problem although I still think there is a component, and more of a Raynaud's phenomena that is fairly severe. I was very up front with her that I am very concerned that she is going to either necrose the tips and/or develop infections in these areas. That could then trigger a full cellulitis and/or abscess of the foot and even potential amputation. We have very specifically discussed signs and symptoms of these complications. I did discuss the possibility of a small amount of nitroglycerin rubbed into the end of the toes in an attempt to increase the blood flow in this region. She has already been told by other physicians that she has to keepher feet very warm. I do not think she is being very compliant with that today by the way she is clifford ssed. 2. Decreased pedal pulses She tells me she is going to see a vascular surgeon. 3. Type 2 diabetes mellitus with stage 3b chronic kidney disease, without long- term current use of insulin (HCC) ([facility]) Chronic problem I originally thought she needed some medications for but then she ultimately changed her mind and said no she had enough of them. 4. Polypharmacy Chronic problem The patient meets the criteria for polypharmacy; 5 or more prescriptions or multi-morbidity definedas 5 or more diagnoses. Polypharmacy can significantly increase the risk of preventable adverse drug events and negatively impact adherence. Consideration of diverse factors such as clinician agreement, patient perspective,and de-prescribing, as appropriate can improve patient outcomes while simplifying care. This requires longitudinal monitoring as there is at least a moderate risk of morbidity and requires at least amoderate degree of evaluation and management. documented in this encounterEastern Missouri State [id number] Telephone encounter Note* Telephone Encounter - Jack Rogel MD - 05/22/2024 5:33 PM EST I called and discussed with Johanny that [...] different anticoagulant if she has better coverage. [facility] [id number] Miscellaneous Notes* Telephone Encounter - Jcak Rogel MD - 05/22/2024 5:33 PM EST I called and discussed with Johanny that [...] different anticoagulant if she has better coverage. * Telephone Encounter - Dina Gunn - 05/22/2024 3:53 PM EST Johanny called and stated that her new drug coverage will not cover Eliquist, it is over $300. She is asking if she can go back to Plavix? If so, [facility]? She would also like to know that if she goes back to Plavix, does she need to take a low dose Asprin with that? documented in this encounterEastern Missouri State [id number] Telephone encounter Note* Telephone Encounter - Dinareddy Gunn - 05/22/2024 3:53 PM EST Johanny called and stated that her new drug coverage will not cover Eliquist, it is over $300. She is asking if she can go back to Plavix? If so, can [facility] be [facility]? She would also like to know that if she goes back to Plavix, does she need to take a low dose Asprin with that? [facility] [id number] History of Present illness Narrative* Jack Rogel MD - 04/14/2024 2:30 PM EST Images from the original note were not included. Patient ID: Johanny Forbes is a 83 y.o. female who presents for: He is here for hospital follow-up visit. Her only complaint is more fatigue than she expects. Flowsheet Row Patient Outreach from 04/08/2024 in [facility] with Tyesha Connelly LPN Hospital Information ED, Hospital or Alf Facility Discharge? Hospital Patient has been contacted [...] by mouth in the morning. glucose blood (Expand Beyond) test strip Check daily and as needed. [...] transition of care note is reviewed. a [id number] evaluation is done today. Medical decision making is complex in degree. 5. Polypharmacy Chronic problem The patient meets the criteria for polypharmacy; 5 or more prescriptions or multi-morbidity definedas 5 or more diagnoses. Polypharmacy can significantly increase the risk of preventable adverse drug events and negatively impact adherence. Consideration of diverse factors such as clinician agreement, patient perspective,and de-prescribing, as appropriate can improve patient outcomes while simplifying care. This requires longitudinal monitoring as there is at least a moderate risk of morbidity and requires at least amoderate degree of evaluation and management. [facility] this [facility]12-20-2024 History of Present illness Narrative* Jack Rogel MD - 04/04/2024 10:35 AM EST I reviewed some emergency room notes and her cardiac catheterization. Updated medical record. documented in this [facility]12-18-2024 Evaluation note* Diagnosis Onset Date Resolution Status Admit Date AAA (abdominal aortic aneurysm) acute April 02, 024 5:46pm CVA (cerebral vascular accident) acute April 02 024 5:46pm Diabetes acute April 02, 2024 5:46pm HTN (hypertension) acute [facility] er 2023 5:46pm Hypothyroid acute March 5:46pm Paroxysmal atrial fibrillation acute April 02 024 5:46pm NSTEMI (non-ST elevated myocardial infarction) resolved April 02, 2024 5:46pm [facility] Work Phone: 1(924) 564-965412-18-2024 Evaluation note* Diagnosis Onset Date Resolution Status Admit Date AAA (abdominal aortic aneurysm) acute April 02, 2 024 5:46pm CVA (cerebral vascular accident) acute April 02, 2 024 5:46pm Diabetes acute April 02, 2024 5:46pm HTN (hypertension) acute Decemb er 2023 5:46pm Hypothyroid acute March 5:46pm Paroxysmal atrial fibrillation acute April 02, 2024 5:46pm NSTEMI (non-ST elevated myocardial infarction) resolved April 02, 2024 5:46pm Discoloration of skin of toe acute June 04, 2024 3:05pm [facility] Work Phone: 1(924) 162-556012-18-2024 Evaluation note* Diagnosis Onset Date Resolution Status Admit Date AAA (abdominal aortic aneurysm) acute April 02, 2 024 5:46pm CVA (cerebral vascular accident) acute April 02, 2 024 5:46pm Diabetes acute April 02, 2024 5:46pm HTN (hypertension) acute Decemb er 2023 5:46pm Hypothyroid acute March 5:46pm Paroxysmal atrial fibrillation acute April 02, 2024 5:46pm NSTEMI (non-ST elevated myocardial infarction) resolved April 02, 2024 5:46pm Discoloration of skin of toe acute June 04, 2024 3:05pm Ischemic pain of foot acute May 11:05am [facility] Work Phone: 1(289) 731-372511-26-2024 History of Present illness Narrative* Jack Rogel [...] by mouth in the morning. glucose blood (J&J AfricaTouch Ultra) test strip Check daily and as [...] file prior to visit. 1. Primary hypertension (CMS/HCC) Chronic problem, stable, to goal - valsartan (Diovan) 40 MG tablet; Take 1 tablet (40 mg) by mouth Daily Dispense: 90 tablet; Refill: 1 - VASC US PVR/SEGMENTAL PRESSURES LOWER; Future - VASC US PVR/SEGMENTAL PRESSURES LOWER 2. Chronic kidney disease, stage 3b (HCC) (CMS/HCC) Chronic problem appear stable microalbumin creatinine ratio normal. - VASC US PVR/SEGMENTAL PRESSURES LOWER; Future - VASC US PVR/SEGMENTAL PRESSURES LOWER 3. Type 2 diabetes mellitus with stage 3b chronic kidney disease, without long- term current use of insulin (HCC) (CMS/HCC) Chronic problem, stable, to goal. Diet control. 4. 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 5. Paroxysmal [...] US PVR/SEGMENTAL PRESSURES LOWER documented in this encounterEastern [facility] [id number] History of Present illness Narrative* Eloise Galicia MD - 07/02/2023 1:15 PM EDT Referred by [facility] ([facility]-afib/plum htn) History [...] 3 and previous TIA who presented to [facility] yesterday with complaint of transient neurologic [...] (bypass heart) Brother Allergies: Lisinopril, Penicillins, and Zlwqemg-klu-usf reductase inhibitors Outpatient Medications: Current Outpatient Medications [...] mouth 2 times a day. History of RI (myocardial infarction) - magnesium oxide (Mag-Ox) 400 [...] Paroxysmal atrial fibrillation (CMS/HCC) 2. History of RI (myocardial infarction) 3. Acute arterial ischemic stroke, [...] ventricular hypertrophy Clinical decision makin-year-old with a [id number] score of 7, has paroxysmal atrial fibrillation. [...] been markedly abnormal, and she has atherosclerotic tyonek vessel coronary disease, statin therapy is indicated, will discuss further at next visit, it appears that she has statin intolerance. May be a candidate for Leqvio. Patient will follow-up after testing Thank you Dr. Rogel for allowing me to participate in Johanny's care, please do not hesitate to callif further questions arise, Sincerely, Eloise Galicia MD [facility] Provider Attestation - Scribe documentation Scribe Attestation By signing my name below, I, Elizabeth SHIVA , Scribe attest that this documentation has [...] and formulation of care. [facility] Work Phone: 1(789) 484-533403-18-2024 Instructions* Patient Instructions* Curtis Navarro MA - [...] time of your visit. 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 We discussed telling tyler [...] to someone more local when driving to [place] is driving is a little more difficult [...] home exercise program. Coronary artery disease involving tyonek coronary artery of tyonek heart without angina pectoris (CMS/HCC) Chronic problem, [...] on May 24, 2023 documented in this encounterEastern Missouri State [id number] Miscellaneous Notes* Telephone Encounter - Ru Thomas RN - 05/15/2022 2:18 PM EST Received call from pt stating she is at [facility] and needs mammogram orders sent. Orders faxed as requested. Ru Thomas RN documented in this encounterUniversity Hospitals Geaug[facility] Center01-30-2023 Miscellaneous Notes* Telephone Encounter - Honey Tucker [...] 1:39 PM EST Patient is currently at [facility] for her Mammogram. Chrissie is calling to request a new order. 1) Diagnostic Bilateral Mammogram 2) US order (that way they have it if needed) ABDIFATAH/Amarilys: If in agreement, can you please place order PERLITA and I will fax back to her? Thanks! Chrissie: Ph. [phone] Fax. [phone] Honey Tucker documented in this encounterUniversity Hospitals Geaug[facility] Center11-27-2022 Evaluation note* Encounter Date Diagnosis Assessment Notes [...] no improvement in 2 to 3 days. [employer] Other 10-31-2022 Miscellaneous Notes* Telephone Encounter - [...] Reyes RN documented in this encounterUniversity Hospitals Geauga Medical Center10-18-2022 NoteHNO ID: [id number] Author: Simin Lama MD Service: ? Author Type: Physician Type: Progress Notes Filed: 01/31/2022 3:38 PM Note Text: PATIENT NAME: Johanny Forbes CLINIC NO.: [id number] ATTENDING PHYSICIAN: Simin Lama MD DATE OF [...] metastatic breast carcinoma, 5 cm, ER 0, AZ 0, HER-2 0 by IHC. The tissue was not evaluated for flow cytometry to rule out a lymphoproliferative process. 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 Differential included mammary, skin, urothelial, pancreaticobiliary and pulmonary primaries. ER 0, AZ 0, HER-2 negative by CAMERON. 2021 PET [...] 04/11/2021 141 Chloride (mmol (more content not included)...[facility] 01-31-2022 Miscellaneous Notes* Telephone Encounter - Honey Tucker - 01/31/2022 4:[address] Lama, patient had a previous abnormal L Mammogram and never followed up. He would like L Mammogram completed now. Faxed order to [facility] scheduling per patient's hospital request. Honey Tucker documented in this encounterUniversity Hospitals Geauga Medical Center10-18-2022 History of Present illness Narrative* Simin Lama MD - 01/31/2022 3:19 PM EDT PATIENT NAME: Johanny Forbes CLINIC NO.: [id number] ATTENDING PHYSICIAN: Simin Lama MD DATE OF [...] metastatic breast carcinoma, 5 cm, ER 0, AZ 0, HER-2 0 by IHC. The tissue was not evaluated for flow cytometry to rule out a lymphoproliferative process. 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 Differential included mammary, skin, urothelial, pancreaticobiliary and pulmonary primaries. ER 0, AZ 0, HER-2 negative by CAMERON. 2021 PET [...] 07/28/2021 3.28 1.00 - 4.00 k/uL Final Bland% Date Value Ref Range Status 07/28/2021 5.9 % Final Abs Bland Date Value Ref Range Status 07/28/2021 0.46 [...] Maira Saunders Booth and Ryan, of the [facility] breast pathology department, who concur. [...] do not hesitate to contact me at [phone]. Simin Lama MD Hematology/Medical Oncology [facility] spent a total of 30 minutes on the date of the service which included preparing to see the patient, [id number] patient care, completing clinical documentation, obtaining and/or reviewing separately obtained history, performing a medically appropriate examination, counseling and educating the pat ient/family/caregiver, and ordering medications, tests, or procedures. Medical Decision Making: Medical Decision Making Level: 1 - N/A CC: Campbell Henson, DO Jorge Luis Whitehead DO documented in this encounterUniversity Hospitals Geauga Medical Center04-14-2022 NoteHNO ID: [id number] Author: Drake Anand MD Service: ? Author [...] metastatic breast carcinoma, 5 cm, ER 0, AZ 0, HER-2 0 by IHC. The tissue was not evaluated for flow cytometry to rule out a lymphoproliferative process. 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 Differential included mammary, skin, urothelial, pancreaticobiliary and pulmonary primaries. ER 0, AZ 0, HER-2 negative by CAMERON. ? 2021 [...] date of the (more content not included)... [facility]04-14-2022 History of Present illness Narrative* Drake Anand [...] metastatic breast carcinoma, 5 cm, ER 0, AZ 0, HER-2 0 by IHC. The tissue was not evaluated for flow cytometry to rule out a lymphoproliferative process. 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 Differential included mammary, skin, urothelial, pancreaticobiliary and pulmonary primaries. ER 0, AZ 0, HER-2 negative by CAMERON. 2021 PET [...] continue with annual mammograms and physical examination. Mitzice of recurrence on exam today. Follow-up in [...] which included preparing to see the patient, [id number] patient care, completing clinical documentation, obtaining and/or reviewing separately obtained history, counseling and educating the patient/family/caregiver, ordering medications, herlinda ts, or procedures, independently interpreting results (not separately reported) and communicating results to the patient/family/caregiver. documented in this encounterUniversity Hospitals Geauga Medical Center04-08-2022 Miscellaneous Notes* Telephone Encounter - [...] discuss further. She can be reached at [phone]. Ru Blackman RN documented in this encounterUniversity Hospitals Geauga Medical Center01-10-2022 History of Present illness Narrative* Dina aPblo, RT(R) - 2021 12:30 PM EST RADIOLOGY [...] 1232 PATIENT DISCHARGED TO: Ambulatory patient, left [place] department area. A Diagnostic radioactive procedure has taken place, with no further precautions necessary other than routine body substance precautions. More information regarding radiation safety can be found usingthis link: [email or web address] SIGNATURE: RT Keira(R) PATIENT NAME: Johanny Forbes DATE: 2021 TIME: 2:40 PM PAGER/CONTACT #: documented in this encounterUniversity Hospitals Geauga Medical Center12-28-2021 Miscellaneous Notes* Telephone Encounter - Amarilys Murry PA-C - 04/12/2021 4:42 PM EST Request received from [facility] for additional diagnosis codes for MRI breast because diagnosis providedis not a covered diagnosis. Will send with additional diagnosis codes. Will try C50.912 and C77.3. (carcinoma of breast metastatic to left axillary node) Amarilys Murry PA-C documented in this encounterUniversity Hospitals Geauga Medical Center12-03-2021 NoteOPERATIVE NOTE OPERATION DATE: 03-18-21 ANESTHETIC:LMA. CHUCK BONER:COLTON Enciso PREOPERATIVE DIAGNOSIS:Left axillary mass. POSTOPERATIVE DIAGNOSIS: [...] taken to the PACU in fair condition. [facility] Signed and Approved by: DR TIM NIÑO . 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, left (HCC)- Primary documented in this encounter [facility] noteNo assessment information availableMary [facility]an [facility] Work Phone: Evaluation note* Diagnosis [...] cerebral infarction (CMS/HCC) Coronary artery disease involving tyonek coronary artery of tyonek heart without angina pectoris (CMS/HCC) Pulmonary hypertension, mild (CMS/HCC) Other chronic pulmonary heart diseases Chronic kidney disease, stage 3b (HCC) (CMS/HCC) Type 2 diabetes mellitus with stage 3b chronic kidney disease, without long-term current use of insulin (HCC) (CMS/HCC) 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, left (CMS/HCC) Mixed dyslipidemia (CMS/HCC) documented in this encounter [facility]* Diagnosis Paroxysmal atrial fibrillation (CMS/HCC) Atrial fibrillation History of RI (myocardial infarction) 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, multifocal, posterior circulation, right (CMS/HCC) BMI 25.0-25.9,adult Never smoked tobacco STORMY inhibitor intolerance Primary hypertension Unspecified essential hypertension documented in this encounter [facility] Work Phone: Evaluation note* Diagnosis History of RI (myocardial infarction) 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, multifocal, posterior circulation, right (Multi) documented in this encounter [facility] Work Phone: Evaluation note* Diagnosis Malignant neoplasm of breast in female, estrogen receptor negative, unspecified laterality, unspecified site of breast (HCC) [facility]* Diagnosis Toe cyanosis- Primary Cyanosis Primary hypertension (CMS/HCC) Unspecified essential hypertension Chronic kidney disease, stage 3b (HCC) (CMS/HCC) Type 2 diabetes mellitus with stage 3b chronic kidney disease, without long-term current use of insulin (HCC) (CMS/HCC) Mixed dyslipidemia (CMS/HCC) Paroxysmal atrial fibrillation (CMS/HCC) Atrial fibrillation Decreased pedal pulses Other symptoms involving cardiovascular system documented in this encounter [facility]* Diagnosis Other cardiomyopathy (CMS/HCC)- Primary documented in this encounter [facility] note* Diagnosis NSTEMI (non-ST elevated myocardial infarction) (CMS/HCC)- Primary Acute myocardial infarction, subendocardial infarction, episode of care unspecified Paroxysmal atrial fibrillation (CMS/HCC) Atrial fibrillation Other cardiomyopathy (CMS/HCC) Encounter for examination following treatment at hospital Polypharmacy Issue of repeat prescriptions documented in this encounter [facility]* Diagnosis Raynaud's phenomenon without gangrene- Primary documented in this encounter [facility]* Diagnosis Toe cyanosis Cyanosis Decreased pedal pulses Other symptoms involving cardiovascular system Type 2 diabetes mellitus with stage 3b chronic kidney disease, without long-term current use of insulin (HCC) (CMS/HCC) Polypharmacy Issue of repeat prescriptions documented in this encounter [facility]* Diagnosis Right leg weakness Muscle weakness (generalized) Acute pain of right knee Numbness Disturbance of skin sensation documented in this encounter [facility]* Diagnosis Acute on chronic left systolic heart failure Discoloration of skin of foot Abdominal aortic aneurysm, without rupture, unspecified (CMS-HCC) documented in this encounter [facility] Work Phone: Evaluation note* Diagnosis Paroxysmal atrial fibrillation (Multi)- Primary Atrial fibrillation Anticoagulated Encounter for long-term (current) use of anticoagulants Primary hypertension Unspecified essential hypertension Aortic aneurysm, unspecified portion of aorta, unspecified whether ruptured Mixed hyperlipidemia Type 2 RI (myocardial infarction) (Multi) Stage 3b chronic kidney disease (Multi) BMI 24.0-24.9, adult Acute on chronic left systolic heart failure documented in this encounter [facility] Work Phone: Evaluation note* Diagnosis Paroxysmal atrial fibrillation (Multi) Atrial fibrillation Anticoagulated Encounter for long-term (current) use of anticoagulants documented in this encounter [facility] Work Phone: Evaluation note* Diagnosis Right leg weakness Muscle weakness (generalized) Numbness Disturbance of skin sensation Encounter for Medicare annual wellness exam Advance directive discussed with patient Encounter for screening for other disorder Screening for alcohol problem Screening for alcoholism Polypharmacy Issue of repeat prescriptions documented in this encounter [facility]* Diagnosis Paroxysmal atrial fibrillation (Multi) Atrial fibrillation Anticoagulated Encounter for long-term (current) use of anticoagulants Paroxysmal atrial fibrillation (Multi) Atrial fibrillation Anticoagulated Encounter for long-term (current) use of anticoagulants documented in this encounter [facility] Work Phone: Evaluation note* Diagnosis Encounter for Medicare annual wellness exam- Primary Advance directive discussed with patient Encounter for screening for other disorder Screening for alcohol problem Screening for alcoholism Paroxysmal atrial fibrillation (CMS/HCC) Atrial fibrillation 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 (CMS/HCC) Pulmonary hypertension, mild (CMS/HCC) Other chronic pulmonary heart diseases Primary hypertension (CMS/HCC) Unspecified essential hypertension Ischemic cardiomyopathy (CMS/HCC) Other specified forms of chronic ischemic heart disease Coronary artery disease involving tyonek coronary artery of tyonek heart without angina pectoris (CMS/HCC) Pararenal abdominal aortic aneurysm (AAA) without rupture (CMS/HCC) Chronic kidney disease, stage 3b (HCC) (CMS/HCC) Type 2 diabetes mellitus with stage 3b chronic kidney disease, without long-term current use of insulin (HCC) (CMS/HCC) Mixed dyslipidemia (CMS/HCC) documented in this encounter [facility]* Diagnosis Pain in both lower extremities- Primary Weakness of right lower extremity Lumbar radiculopathy Thoracic or lumbosacral neuritis or radiculitis, unspecified documented [facility] this encounter [facility]* Diagnosis Infrarenal abdominal aortic aneurysm (AAA) without rupture [facility]* Diagnosis 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) Atherosclerosis of tyonek arteries of the extremities with rest pain [facility]* Diagnosis Right leg pain- Primary Pain in soft tissues of limb Lumbar radiculopathy, right Chronic pain of right knee Arthritis of right knee Chondromalacia, patella, right documented [facility] this encounter [facility]* Diagnosis Onset Date Resolution Status Admit Date Dysuria noneactive October 26 10:08am [facility] Work Phone: History of Present illness Narrative* Brian Mishra MD - 09/19/2024 1:15 PM EDT [facility] Patient: Johanny Braxton [id number], [address] , Sex: 1940, Female [place], [place] [address] Height: 160 cm Ref Phys: Lauro Barajas fax Electroneuromyogram ([facility]) Test Date: 2024-09-19 Patient Complaints: Fall due to collapse of RLE. Soreness R thigh. Nerve Conduction Studies Anti Sensory Summary Table Site NR Peak (ms) Norm Peak (ms) P-T* Amp ( V) Norm P-T Amp Site1 Site2 Delta-0 (ms) Dist (cm) Lore (m/s) Norm Lore (m/s) Right Lat Fem Cut (Almeida's) Anti Sensory (Ant Thigh) Ing Lig NR <3.01 >1.99 Ing Lig Ant Thigh 12.0 >40.29 Left Saphenous (Wainapel's) Anti Sensory (med mall) med leg NR <4.41 >5.0 med leg med mall 14.0 >38.2 Right Saphenous (Wainapel's) Anti Sensory (med mall) med leg NR <4.41 >5.0 med leg med mall 14.0 >38.2 Left Superf Peron (Rebecca's) Anti Sensory (Ant Lat Mall) Calf 3.4 <4.61 10.3 >3.99 Calf Ant Lat Mall 3.0 14.0 47 >40.49 Right Superf Peron (Rebecca's) Anti Sensory (Ant Lat Mall) Calf 3.5 <4.61 8.1 >3.99 Calf Ant Lat Mall 2.9 14.0 48 >40.49 Left Sural Anti Sensory (Lat Mall) Calf 3.9 <3.91 1.1 >5.99 Calf Lat Mall 3.1 14.0 45 >36.9 Right Sural Anti Sensory (Lat Mall) Calf 3.7 <3.91 2.8 >5.99 Calf Lat Mall 2.9 14.0 48 >36.9 Motor Summary Table Site NR Onset (ms) Norm Onset (ms) O-P* Amp (mV) Norm O-P Amp Neg Dur (ms) Site1 Site2 Delta-0 (ms)Dist (cm) Lore (m/s) Norm Lore (m/s) Left Peroneal Motor (Ext Dig Brev) Ankle 5.0 <6.31 4.5 >1.99 5.16 Ankle Ext Dig Brev 5.0 10.0 20 B Fib 9.5 4.0 >1.99 5.47 B Fib Ankle 4.5 20.0 44 >38.9 Right Peroneal Motor (Ext Dig Brev) Ankle 4.5 <6.31 5.7 >1.99 6.09 Ankle Ext Dig Brev 4.5 10.0 22 B Fib 9.5 5.3 >1.99 6.25 B Fib Ankle 5.0 23.0 46 >38.9 Left Tibial/Medial Plantar Motor (Abd Mora Brev) Ankle 5.2 <7.51 8.4 >3.99 5.31 Ankle Abd Mora Brev 5.2 10.0 19 Knee 11.7 7.4 >3.99 6.56 Knee Ankle 6.5 30.0 46 >37.9 Right Tibial/Medial Plantar Motor (Abd Mora Brev) Ankle 4.7 <7.51 10.1 >3.99 5.94 Ankle Abd Mora Brev 4.7 10.0 21 Knee 11.1 9.3 >3.99 7.03 Knee Ankle 6.4 31.0 48 >37.9 F Wave Studies NR F-Lat (ms) Lat Norm (ms) L-R F-Lat (ms) Left Peroneal F-Wave (EDB) 44.16 <55.41 8.14 Right Peroneal F-Wave (EDB) 52.30 <55.41 8.14 H Reflex Studies NR H-Lat (ms) Lat Norm (ms) L-R H-Lat (ms) Left Tibial H-Reflex (Gastroc) 31.92 31.91 1.02 Right Tibial H-Reflex (Gastroc) 32.94 31.91 1.02 EMG Side Muscle Nerve Root Ins Act Fib/ Pos Fasc Other Atrophy Amp Dur Poly Recr Pat Int Pat Comment Right Ext Dig Brev Dp Br Peron L5, S1 0 0 0 0 0 N 1+ 0 1- N Right Tibialis Ant Dp Br Peron L4-5 0 0 0 0 0 N N 0 N N Right Peroneus Long Sup Br Peron L5-S1 0 0 0 0 0 N N 0 1- N Right Abd Hallucis MedPlantar S1-2 0 0 0 0 0 N N 0 N N Right Gastroc Med Tibial S1-2 0 0 0 0 0 N N 0 N N Right Vastus Lat Femoral L2-4 0 2.5+ 0 0 0 N 2+ 0 1- N Right Vastus Med Femoral L2-4 0 2+ 0 0 0 N N 0 1- N Right Tensor Fasc Lat GlutealSup L4-5, S1 0 0 0 0 0 N N 0 N N Right Biceps Fem SH Sciatic L5-S1 0 0 0 0 0 N N 0 N N Right Biceps Fem LH Sciatic L5-S2 0 0 0 0 0 N N 0 N N Left Ext Dig Brev Dp Br Peron L5, S1 0 0 0 0 0 N 1+ 0 N 1- Left Tibialis Ant Dp Br Peron L4-5 0 0 0 0 0 N N 0 N N Left Peroneus Long Sup Br Peron L5-S1 0 0 0 0 0 N N Serr N N Left Abd Hallucis MedPlantar S1-2 0 0 0 0 0 N N 0 N N Left Gastroc Med Tibial S1-2 0 0 0 0 0 N N 0 N N Left Vastus Lat Femoral L2-4 0 0 0 0 0 N N 0 N N Left Biceps Fem LH Sciatic L5-S2 0 0 0 0 0 N N 0 N N Left Biceps Fem SH Sciatic L5-S1 0 0 0 0 0 N N 0 N N Abbreviations: Atrop=atrophy; CRD=complex repetitive discharge; Discr=discrete; Doub=doublet; Fasc=fasciculation; FFE=full for effort; Fib=fibrillation; Myokym=myokymia; Kersey=myotonic potential; N,0=normal; NR=no response; Polyph=polyphasia; Pos=positive [sharp] wave; RFU=rapidly firing units; Serr =serrated potential (2<phases<5); W&W=waxing and waning pattern INTERPRETATION: This study reveals ENMG evidence of an axonal process affecting the right L4 nerve root most likely, with acute features indicating recent or ongoing injury. This is of moderate degree by electrical criteria. Given the considerable overlap of radicular territories; the actual nerve root involved may be one level higher or lower than suggested here. A peripheral neuropathy may also be developing, based on very mild findings on needle EMG. Sensory potentials were notably quite well preserved. A follow-up study in 1 year may be of greater diagnostic utility, should the clinical situation warrant confirmation. There is no suggestion by this study of myopathy, mononeuropathy, nor of more proximal processes e.g. plexopathy or radiculopathy. The paraspinal muscles were not studied due to the patient's Factor Xa inhibitor anticoagulation, resulting in somewhat lower sensitivity of this study to the presence of any radiculopathy. Brian Mishra M.D. Diplomate, [place] Board of Psychiatry and Neurology (neurology, epilepsy, sleep medicine) Diplomate, [place] Board of Clinical Neurophysiology Diplomate, [place] Board of Preventive Medicine (clinical informatics) . 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, left (HCC) Procedures DANIELLE SCREENING SCREENING MAMMOGRAPHY BI 2-VIEW BREAST INC CAD Drake Anand MD [address] [place] [address] [place] [address] [facility] Imaging [address] [place] [address] Referral ID Status Reason Start Date Expiration Date Visits Requested Visits Authorized [id number] Pending Review Auto-Generat ed Referral 07/28/2021 08/27/2022 1 1 [facility] for referral (narrative)* Diagnostic Procedure Only (Routine) - Pending Review Specialty Diagnoses / Procedures Referred By Contac t Referred To Contact BR IMAGING Diagnoses 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, left (HCC) Procedures DANIELLE DIAGNOSTIC LT DIAGNOSTIC MAMMOGRAPHY COMPUTER-AIDED DETCJ UNI Simin Lama MD [address] [place] [address] [facility] [address] [place] [address] Referral ID Status Reason Start Date Expiration Date Visits Requested Visits Authorized [id number] Pending Review Auto-Generat ed Referral 02/14/2022 03/02/2023 1 1 [facility] for referral (narrative)* Diagnostic Procedure Only (Routine) - Pending Review Specialty Diagnoses / Procedures Referred By Contac t Referred To Contact BR IMAGING Diagnoses 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, left (HCC) Procedures US BREAST LTD RT US BREAST UNI REAL TIME WITH IMAGE LIMITED Simin Lama MD [address] [place] [address] [facility] [address] [address] Referral ID Status Reason Start Date Expiration Date Visits Requested Visits Authorized [id number] Pending Review Auto-Generat ed Referral 05/15/2022 06/14/2023 1 1 * Diagnostic Procedure Only (Routine) - Pending Review Specialty Diagnoses / Procedures Referred By Contac t Referred To Contact BR IMAGING Diagnoses 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, left (HCC) Procedures US BREAST LTD LT US BREAST UNI REAL TIME WITH IMAGE LIMITED Simin Lama MD [address] [place] [address] [facility] [address] [place] [address] Referral ID Status Reason Start Date Expiration Date Visits Requested Visits Authorized [id number] Pending Review Auto-Generat ed Referral 05/15/2022 06/14/2023 1 1 * Diagnostic Procedure Only (Routine) - Pending Review Specialty Diagnoses / Procedures Referred By Jerry t Referred To Contact BR IMAGING Diagnoses 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, left (HCC) Procedures DANIELLE DIAGNOSTIC BILAT DIAGNOSTIC MAMMOGRAPHY COMPUTER-AIDED DETCJ BI Simin Lama MD [address] [place] [address] [facility] [address] [place] [address] Referral ID Status Reason Start Date Expiration Date Visits Requested Visits Authorized [id number] Pending Review Auto-Generat ed Referral 05/15/2022 06/14/2023 1 1 [facility] Diagnostic Procedure Only (Routine) - Closed Specialty Diagnoses / Procedures Referred By Contac t Referred To Contact MOLECULAR & FUNCTIONAL IMAGING Diagnoses Malignant neoplasm of breast in female, estrogen receptor negative, unspecified laterality, unspecified site of breast (HCC) Procedures NM PET/CT SKULL-THIGH INITIAL TUMOR IMAGING PET W/CONC CT SKULL-THIGH Drake Anand MD [address] [place] [address] [address] [place] [address] Molecular & Functional Imaging [address] [place] [address] Referral ID Status Reason Start Date Expiration Date V isits Requested Visits Authorized [id number] Closed Auto-Generate d Referral 04/16/2021 06/14/2021 1 1 [facility]No reason for referral information availableUc Health Work Phone: Reason for visit Narrative* Imaging (Routine) - Authorized Specialty Diagnoses / Procedures Referred By Contac t Referred To Contact Cardiology Diagnoses History of RI (myocardial infarction) 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 [address] [place] [address] Phone: tel: fax: Referral ID Status Reason Start Date Expiration Date Visits Requested Visits Authorized [id number] Authorized Perform Procedure 05/19/2024 05/19/2025 1 1 [facility] Work Phone: Reason for visit Narrative* Imaging (Routine) - Closed Specialty Diagnoses / Procedures Referred By Contac t Referred To Contact Radiology Diagnoses Infrarenal abdominal aortic aneurysm (AAA) without rupture Procedures CTA ABDOMEN PELVIS W CONTRAST Tenzin Hsu MD 27 [facility] [address] [place] [address] Phone: tel: fax: Referral ID Status Reason Start Date Expiration Date Visits Re quested Visits Authorized [id number] Closed 08/06/2024 08/06/2025 1 1 [facility] N[facility]* Other (Routine) - Open Specialty Diagnoses / Procedures Referred By Contac t Referred To Contact Cardiology Diagnoses 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) Procedures Vascular lower arterial complete physiologic Doppler at rest Tenzin Hsu MD [address] [place] [address] [address] [place] [address] Phone: tel: fax: Referral ID Status Reason Start Date Expiration Date Visits Re quested Visits Authorized [id number] Open 09/05/2024 09/05/2025 1 1 [facility] [employer] [facility] Summary Purpose Family History Relationship Condition Age at Onset Recorded Date/T gelacio mother Myocardial infarction Unknown Diabetes mellitus Unknown brother Heart disease Unknown father Coronary artery disease Unknown Advance Directives Advance Directive Response Recorded Date/ Time Advance Directives No May 04, 2022 12:47pm Documents on File Type Date Recorded 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 Power of Catalogue Librarian 05/28/2023 10:54 AM 2022 Power Of Catalogue Librarian Documents on File Type Date Recorded 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 Power of Catalogue Librarian 05/28/2023 10:54 AM 2022 Power Of Catalogue Librarian Advance Directive Response Recorded Date/ Time Advance Directives No May 3:02pm Advance Directive Response Recorded Date/ Time Advance Directives No May 4:02pm Chief Complaint and Reason for Visit Chief Complaint Admit Date pain and blood in urine October 26, 2024 10:08am r30.0 October 26, 2024 10:1 5am Reason for Visit Admit Date Dysuria October 26, 2024 10:0 8am Chief Complaint C77.3 Chief Complaint Admit Date instemi April 02, 2024 5:46pm I25.2 May 19, 2024 3 :23pm Reason for Visit Admit Date AAA (abdominal aortic aneurysm) April 02, 2024 5:46pm CVA (cerebral vascular accident) Decembe r 2023 5:46pm Diabetes April 02, 2024 5:46pm HTN (hypertension) April 02, 2024 5:46pm Hypothyroid April 02, 2024 5:46pm Paroxysmal atrial fibrillation Benny 18th, 2024 5:46pm NSTEMI (non-ST elevated myocardial infar ction) April 02, 2024 5:46pm Chief Complaint Admit Date instemi April 02, 2024 5:46pm I25.2 May 19, 2024 3 :23pm Poss infected right second toe June 04, 2024 3:05pm Chief Complaint Admit Date instemi April 02, 2024 5:46pm I25.2 May 19, 2024 3 :23pm Poss infected right second toe June 04, 2024 3:05pm sent by urgent care June 04, 2024 5:15pm Reason for Visit Admit Date AAA (abdominal aortic aneurysm) April 02, 2024 5:46pm [facility] Diabetes April 02, 2024 5:46pm HTN (hypertension) April 02, 2024 5:46pm Hypothyroid April 02, 2024 5:46pm Paroxysmal atrial fibrillation April 02, 2024 5:46pm NSTEMI (non-ST elevated myocardial infar ction) April 02, 2024 5:46pm Discoloration of skin of toe June 042024 3:05pm Chief Complaint Admit Date instemi April 02, 2024 5:46pm I25.2 May 19, 2024 3 :23pm Poss infected right second toe June 04, 2024 3:05pm sent by urgent care June 04, 2024 5:15pm ER Follow up; [facility]; [facility] done at [facility] C June 11, 2024 11:05am Reason for Visit Admit Date AAA (abdominal aortic aneurysm) April 02, 2024 5:46pm CVA (cerebral vascular accident) Decee r 2023 5:46pm Diabetes April 02, 2024 5:46pm HTN (hypertension) April 02, 2024 5:46pm Hypothyroid April 02, 2024 5:46pm Paroxysmal atrial fibrillation April 02, 2024 5:46pm NSTEMI (non-ST elevated myocardial infar ction) April 02, 2024 5:46pm Discoloration of skin of toe June 042024 3:05pm Ischemic pain of foot June 11 11:05am Chief Complaint Admit Date pain and blood in urine October 26, 2024 10:08am Reason for Referral Specialty Diagnoses / Procedures Referred By Contac t Referred To Contact Cardiology Diagnoses History of RI (myocardial infarction) Acute arterial ischemic stroke, multifocal, posterior circulation, right (CMS/HCC) Procedures Transthoracic Echo Complete [place] ECHO TTHRC R-T 2D W/WOM-MODE COMPL SPEC&COLR D Eloise Galicia MD [address] [facility] [address] [place] [address] Referral ID Status Reason Start Date Expiration Date Visits Requested Visits Authorized [id number] Authorized Perform Procedure 07/02/2023 07/01/2024 1 1 Specialty Diagnoses / Procedures Referred By Contac t Referred To Contact Diagnoses Paroxysmal atrial fibrillation (CMS/HCC) Procedures ECG 12 Lead Eloise Galicia MD [address] [facility] [address] [place] [address] Referral ID Status Reason Start Date Expiration Date V isits Requested Visits Authorized [id number] Authorized 07/02/2023 07/01/2024 1 1 Specialty Diagnoses / Procedures Referred By Contac t Referred To Contact Cardiology Diagnoses Acute arterial ischemic stroke, multifocal, posterior circulation, right (CMS/HCC) Procedures Follow Up In Cardiology Eloise Galicia MD [address] [facility] [address] [place] [address] Eloise Galicia MD [address] [facility] [address] [place] [address] Referral ID Status Reason Start Date Expiration Date V isits Requested Visits Authorized [id number] Authorized 07/02/2023 07/01/2024 1 1 Additional Source Comments INFORMATION SOURCE (unrecogn ized section and content) DATE CREATED AUTHOR 06/27/2018 [facility] DATE CREATED AUTHOR AUTHOR'S ORGANIZ ATION 07/08/2019 [facility] DATE CREATED AUTHOR AUTHOR'S ORGANIZ ATION 05/07/2021 [facility] DATE CREATED AUTHOR AUTHOR'S ORGANIZ ATION 05/16/2022 [facility] DATE CREATED AUTHOR AUTHOR'S ORGANIZ ATION 03/08/2024 [facility] DATE CREATED AUTHOR AUTHOR'S ORGANIZ ATION 06/18/2024 [facility] DATE CREATED AUTHOR AUTHOR'S ORGANIZ ATION 07/12/2024 [facility] DATE CREATED AUTHOR AUTHOR'S ORGANIZ ATION 08/09/2024 [facility] DATE CREATED AUTHOR AUTHOR'S ORGANIZ ATION 09/11/2024 [facility] DATE CREATED AUTHOR AUTHOR'S ORGANIZ ATION 09/29/2024 [facility] DATE CREATED AUTHOR AUTHOR'S ORGANIZ ATION 10/08/2024 [facility] EPIC Source Comments (unrecognize d section and content) In the event this informatio n is protected by the Federal Confidentiality of Alcohol and Drug Abuse Patient Records regulations: The Federal rules restrict any use of the information to criminally investigate or prosecute any alcohol or drug abuse patient.[facility] Center[facility] the event this information is protected by the Federal Confidentiality of Alcohol and Drug Abuse Patient Records regulations: The Federal rules restrict any use of the information to criminally investigate or prosecute any alcohol or drug abuse patient.[facility] CenterIn the event this information is protected by the Federal Confidentiality of Alcohol and Drug Abuse Patient Records regulations: The Federal rules restrict any use of the information to criminally investigate or prosecute any alcohol or drug abuse patient.[facility] CenterIn the event this information is protected by the Federal Confidentiality of Alcohol and Drug Abuse Patient Records regulations: The Federal rules restrict any use of the information to criminally investigate or prosecute any alcohol or drug abuse patient.[facility] CenterIn the event this information is protected by the Federal Confidentiality of Alcohol and Drug Abuse Patient Records regulations: The Federal rules restrict any use of the information to criminally investigate or prosecute any alcohol or drug abuse patient.[facility] CenterIn the event this information is protected by the Federal Confidentiality of Alcohol and Drug Abuse Patient Records regulations: The Federal rules restrict any use of the information to criminally investigate or prosecute any alcohol or drug abuse patient.[facility] CenterIn the event this information is protected by the Federal Confidentiality of Alcohol and Drug Abuse Patient Records regulations: The Federal rules restrict any use of the information to criminally investigate or prosecute any alcohol or drug abuse patient.[facility] CenterIn the event this information is protected by the Federal Confidentiality of Alcohol and Drug Abuse Patient Records regulations: The Federal rules restrict any use of the information to criminally investigate or prosecute any alcohol or drug abuse patient.[facility] CenterIn the event this information is protected by the Federal Confidentiality of Alcohol and Drug Abuse Patient Records regulations: The Federal rules restrict any use of the information to criminally investigate or prosecute any alcohol or drug abuse patient.[facility] Reason for Visit (unrecogniz ed section and content) Reason Comments Patient 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 Follow up Reason Comments Appointment Reason Comments Orders Reason Comments Orders Reason Comments Annual Exam Reason Comments Establish Care Heymeyer-afib/plum h tn Specialty Diagnoses / Procedures Referred By Contac t Referred To Contact Diagnoses Paroxysmal atrial fibrillation (CMS/HCC) Procedures ECG 12 Lead Eloise Galicia MD [address] [place] [address] [address] [place] [address] Referral ID Status Reason Start Date Expiration Date V isits Requested Visits Authorized [id number] Authorized 07/02/2023 07/01/2024 1 1 Specialty Diagnoses / Procedures Referred By Contac t Referred To Contact Cardiology Diagnoses History of RI (myocardial infarction) Acute arterial ischemic stroke, multifocal, posterior circulation, right (Multi) Procedures Transthoracic Echo Complete [place] ECHO TTHRC R-T 2D W/WOM-MODE COMPL SPEC&COLR D Eloise Galicia MD 254 [facility] [address] [place] [address] Referral ID Status Reason Start Date Expiration Date Visits Requested Visits Authorized [id number] Authorized Perform Procedure 07/02/2023 07/01/2024 1 1 Reason Comments Radiology NM Specialty Diagnoses / Procedures Referred By Contac t Referred To Contact MOLECULAR & FUNCTIONAL IMAGING Diagnoses Malignant neoplasm of breast in female, estrogen receptor negative, unspecified laterality, unspecified site of breast (HCC) Procedures NM PET/CT SKULL-THIGH INITIAL TUMOR IMAGING PET W/CONC CT SKULL-THIGH Drake Anand MD [address] [place] [address] [address] [place] [address] Molecular & Functional Imaging [address] [place] [address] Referral ID Status Reason Start Date Expiration Date V isits Requested Visits Authorized [id number] Closed Auto-Generate d Referral 04/16/2021 06/14/2021 1 1 Reason Comments Hypertension Hyperlipidemia Diabetes Reason Comments Toe Problem Cyanotic toes Reason Comments Follow-up Reason Comments Pain Specialty Diagnoses / Procedures Referred By Contac t Referred To Contact Orthopaedic Surgery Diagnoses Right leg weakness Jack Rogel MD 112 [facility] [address] [place] [address] Phone: tel: fax: Jyane Rene, BETTINA fax: Referral ID Status Reason Start Date Expiration Date V isits Requested Visits Authorized [id number] Closed Specialty Services Required 06/16/2024 12/13/2024 1 1 Reason Comments Follow-up 2 week Follow up to discuss AAA US Results Specialty Diagnoses / Procedures Referred By Contac t Referred To Contact Cardiology Diagnoses Paroxysmal atrial fibrillation (Multi) Procedures Follow Up In Cardiology Eloise Galicia MD [address] [place] [address] [address] [place] [address] Phone: tel: fax: Eloise Galicia MD [address] [address] Phone: tel: fax: Referral ID Status Reason Start Date Expiration Date V isits Requested Visits Authorized [id number] Authorized 05/19/2024 05/19/2025 1 1 Reason Comments Anticoagulation Specialty Diagnoses / Procedures Referred By Contac t Referred To Contact Pharmacy Diagnoses Paroxysmal atrial fibrillation (Multi) Anticoagulated Eloise Galicia MD [address] [address] Phone: tel: fax: Referral ID Status Reason Start Date Expiration Date Visits Requested Visits Authorized [id number] Authorized Specialty Services Required 07/11/2024 07/11/2025 1 1 Reason Onset Date Comments Referral 08/28/2024 Referral ID Status Reason Start Date Expiration Date Visits Requested Visits Authorized [id number] Authorized Specialty Services Required 07/28/2024 07/28/2025 1 1 Reason Comments Follow-up Care Teams (unrecognized sec tion and content) Support Service Tech Relationship Specialty Start Date End Date PremJorge Luis norris [address] [place] [address] PCP - General Family Practice 03/28/21 Support Service Tech Relationship Specialty Start Date End Date PremalvarorupaliJorge Luis [address] [place] [address] PCP - General Family Practice 03/28/21 Support Service Tech Relationship Specialty Start Date End Date PremJorge Luis norris DO [address] [place] [address] PCP - General Family Practice 03/28/21 Support Service Tech Relationship Specialty Start Date End Date PremJorge Luis norris DO [address] [place] [address] PCP - General Family Medicine 03/28/21 Support Service Tech Relationship Specialty Start Date End Date Jorge Luis Whitehead, DO [address] [place] [address] PCP - General Family Medicine 03/28/21 Support Service Tech Relationship Specialty Start Date End Date Jorge Luis Whitehead, DO [address] [place] [address] PCP - General Family Medicine 03/28/21 Support Service Tech Relationship Specialty Start Date End Date Jorge Luis Whitehead, DO [address] [place] [address] PCP - General Family Medicine 03/28/21 Support Service Tech Relationship Specialty Start Date End Date Jorge Luis Whitehead, DO [address] [place] [address] PCP - General Family Medicine 03/28/21 Team Status: Inactive Member Role Status Dates Jorge Luis Whitehead DO Primary Care Provider Active Simin Lama MD Attending Provider Active Team Status: Active Member Role Status Dates Jorge Luis Amaroalvarorupali DO Primary Care Provider Active Support Service Tech Relationship Specialty Start Date End Date Amanda Briones MD [address] [place] [address] PCP - General Family Medicine 09/07/22 Amanda Briones MD [address] [facility] [place] [address] PCP - Devoted 04/16/23 Linette Blankenship NP [address] [place] [address] Nurse Practitioner Family Medicine 09/07/22 Support Service Tech Relationship Specialty Start Date End Date Jack Rogel MD [address] [place] [address] (Fax) PCP - General Family Medicine 07/02/23 Support Service Tech Relationship Specialty Start Date End Date Jack Rogel MD [address] [place] [address] (Fax) PCP - General Family Medicine 07/02/23 Support Service Tech Relationship Specialty Start Date End Date Jorge Luis WhiteheadDO [address] [facility] [place] [address] PCP - General Family Medicine 03/28/21 Support Service Tech Relationship Specialty Start Date End Date Amanda Briones MD [address] [place], [place] [phone] PCP - Devoted 04/16/23 Jack Rogel MD [address] [address] (Fax) PCP - General Family Medicine 06/01/23 Linette Blankenship, BETTINA [address] [facility] [place] [address] Nurse Practitioner Family Medicine 09/07/22 Support Service Tech Relationship Specialty Start Date End Date Amanda Briones MD [address] [facility] [place] [address] PCP - Devoted 04/16/23 04/15/24 Jack Rogel MD [address] [address] (Fax) PCP - General Family Medicine 06/01/23 Linette Blankenship NP [address] [facility] [place] [address] Nurse Practitioner Family Medicine 09/07/22 Support Service Tech Relationship Specialty Start Date End Date Amanda Briones MD [address] [facility] [place] [address] PCP - Devoted 04/16/23 04/15/24 Jack Rogel MD [address] [address] PCP - General Family Medicine 06/01/23 Linette Blankenship NP [address] [facility] [place] [address] Nurse Practitioner Family Medicine 09/07/22 Support Service Tech Relationship Specialty Start Date End Date Amanda Briones MD [address] [facility] [place] [address] PCP - Devoted 04/16/23 04/15/24 Jack Rogel MD [address] [address] PCP - General Family Medicine 06/01/23 Linette Blankenship NP [address] [facility] [place] [address] Nurse Practitioner Family Medicine 09/07/22 Team Status: [...] May 19, 2024 End: May 19, 2024 Support Service Tech Relationship Specialty Start Date End Date Jack Rogel MD [address] [address] (Fax) PCP - General Family Medicine 06/01/23 Linette Blankenship NP [address] [place] [address] Nurse Practitioner Family Medicine 09/07/22 Support Service Tech Relationship Specialty Start Date End Date Jack Rogel MD [address] [address] (Fax) PCP - General Family Medicine 06/01/23 Linette Blankenship NP [address] [place] [address] Nurse Practitioner Family Medicine 09/07/22 Support Service Tech Relationship Specialty Start Date End Date Jack Rogel MD [address] [address] (Fax) PCP - General Family Medicine 06/01/23 Linette Blankenship NP [address] [place] [address] Nurse Practitioner Family Medicine 09/07/22 Team Status: Inactive Member Role Status Dates Jack Rogel MD Primary Care Provider Active Start: June 04, 2024 End: June 04, 2024 Meryl Alejandro APRN Attending Provider Active S tart: June 04, 2024 End: June 04, 2024 Team Status: Inactive Member Role Status Dates Jack Rogel MD Primary Care Provider Active Start: June 04, 2024 End: June 04, 2024 Scott Ojeda DO Emergency Provider Active Sta rt: June 04, 2024 End: June 04, 2024 Team Status: Inactive Member Role Status Dates Jack Rogel MD Primary Care Provider Active Start: June 11, 2024 End: June 11, 2024 Mehrdad Leonard MD Attending Provider Active Start: June 11, 2024 End: June 11, 2024 Support Service Tech Relationship Specialty Start Date End Date Jack Rogel MD [address] [facility] [address] [place] [address] PCP - General Family Medicine 06/01/23 Linette Blankenship NP [address] [place] [address] Nurse Practitioner Family Medicine 09/07/22 Support Service Tech Relationship Specialty Start Date End Date Jack Rogel MD 112 [facility] [address] [place] [address] PCP - General Family Medicine 06/01/23 Linette Blankenship NP [address] [place] [address] Nurse Practitioner Family Medicine 09/07/22 Toi Horne DPM [address] [facility] [address] [place] [address] Referring Physician Podiatry 06/05/24 Support Service Tech Relationship Specialty Start Date End Date Jack Rogel MD [address] [place] [address] (Fax) PCP - General Family Medicine 06/01/23 Linette Blankenship NP [address] [facility] [place] [address] Nurse Practitioner Family Medicine 09/07/22 Toi Horne DPM [address] [place] [address] Referring Physician Podiatry 06/05/24 Support Service Tech Relationship Specialty Start Date End Date Jack Rogel MD [address] [place] [address] (Fax) PCP - General Family Medicine 05/19/24 Support Service Tech Relationship Specialty Start Date End Date Jack Rogel MD [address] [place] [address] (Fax) PCP - General Family Medicine 05/19/24 Support Service Tech Relationship Specialty Start Date End Date Jack Rogel MD [address] [place] [address] (Fax) PCP - General Family Medicine 05/19/24 Support Service Tech Relationship Specialty Start Date End Date Jack Rogel MD [address] [place] [address] (Fax) PCP - General Family Medicine 06/01/23 Jack Rogel MD [address] [place] [address] (Fax) PCP - Fernando COLIN 05/17/24 Linette Blankenship, BETTINA [address] [place] [address] Nurse Practitioner Family Medicine 09/07/22 Toi Horne DPM [address] [place] [address] Referring Physician Podiatry 06/05/24 Support Service Tech Relationship Specialty Start Date End Date Jack Rogel MD [address] [place] [address] (Fax) PCP - General Family Medicine 06/01/23 Jack Rogel MD [address] [place] [address] (Fax) PCP - Fernando COLIN 05/17/24 Linette Blankenship NP [address] [place] [address] Nurse Practitioner Family Medicine 09/07/22 Toi Horne DPM [address] [place] [address] Referring Physician Podiatry 06/05/24 Support Service Tech Relationship Specialty Start Date End Date Jack Rogel MD [address] [place] [address] (Fax) PCP - General Family Medicine 05/19/24 Support Service Tech Relationship Specialty Start Date End Date Jack Rogel MD [address] [place] [address] (Fax) PCP - General Family Medicine 06/01/23 Jack Rogel MD [address] [place] [address] (Fax) PCP - Fernando COLIN 05/17/24 Linette Blankenship NP [address] [facility] [place] [address] Nurse Practitioner Family Medicine 09/07/22 Toi Horne DPM [address] [place] [address] Referring Physician Podiatry 06/05/24 Support Service Tech Relationship Specialty Start Date End Date Jack Rogel MD [address] [place] [address] (Fax) PCP - General Family Medicine 06/01/23 Jack Rogel MD [address] [place] [address] (Fax) PCP - Fernando COLIN 05/17/24 Linette Blankenship NP [address] [place] [address] Nurse Practitioner Family Medicine 09/07/22 Toi Horne DPM [address] [place] [address] Referring Physician Podiatry 06/05/24 Support Service Tech Relationship Specialty Start Date End Date Jack Rogel MD [address] [place] [address] (Fax) PCP - General Family Medicine 06/01/23 Jack Rogel MD [address] [place] [address] (Fax) PCP - Fernando COLIN 05/17/24 Linette Blankenship, BUSINESS BANKING SALES ASSISTANT [address] [place] [address] Nurse Practitioner Family Medicine 09/07/22 Toi Horne DPM [address] [place] [address] Referring Physician Podiatry 06/05/24 Tenzin Hsu MD [address] [facility] [address] [place], [place] [address] Referring Physician Vascular Surgery 09/15/24 Support Service Tech Relationship Specialty Start Date End Date Jack Rogel MD [address] [place] [address] PCP - General Family Medicine 06/01/23 Jack Rogel MD [address] [place] [address] PCP - Fernando COLIN 05/17/24 Linette Blankenship NP [address] [place] [address] Nurse Practitioner Family Medicine 09/07/22 Toi Horne DPM [address] [facility] [address] [place] [address] Referring Physician Podiatry 06/05/24 Tenzin Hsu MD [address] [facility] [address] [place], [place] [address] Referring Physician Vascular Surgery 09/15/24 Support Service Tech Relationship Specialty Start Date End Date Jack Rogel MD [address] [place] [address] (Fax) PCP - General 08/06/24 Support Service Tech Relationship Specialty Start Date End Date Jack Rogel MD [address] [place] [address] (Fax) PCP - General 08/06/24 Support Service Tech Relationship Specialty Start Date End Date Jack Rogel MD [address] [place] [address] (Fax) PCP - General 08/06/24 Support Service Tech Relationship Specialty Start Date End Date Jack Rogel MD [address] [place] [address] (Fax) PCP - General Family Medicine 06/01/23 Jack Rogel MD [address] [place] [address] (Fax) PCP - Fernando COLIN 05/17/24 Linette Blankenship NP [address] [place] [address] Nurse Practitioner Family Medicine 09/07/22 Toi Horne DPM [address] [place] [address] Referring Physician Podiatry 06/05/24 Tenzin Hsu MD [address] [place] [address] [address] [place] [address] Referring Physician Vascular Surgery 09/15/24 Support Service Tech Relationship Specialty Start Date End Date Jack Rogel MD [address] [place] [address] PCP - General Family Medicine 06/01/23 Jack Rogel MD [address] [facility] [address] [place] [address] PCP - Fernando COLIN 05/17/24 Linette Blankenship, BETTINA [address] [place] [facility] [place] [address] Nurse Practitioner Family Medicine 09/07/22 Toi Horne DPM [address] [facility] [address] [place] [address] Referring Physician Podiatry 06/05/24 Tenzin Hsu MD [address] [place] [address] [address] [place] [address] Referring Physician Vascular Surgery 09/15/24 Team Status: Inactive Member Role Status Dates Jack Rogel MD Primary Care Provider Active Start: October 26, 2024 End: October 26, 2024 Casi Holloway APRN Attending Provider Active Start: October 26, 2024 End: October 26, 2024 Team Status: Active Member Role Status Dates NON STAFF Primary Care Provider Active Team Status: Inactive Member Role Status Dates Casi Holloway APRN Attending Provider Active Start: October 26, 2024 End: October 26, 2024 NON STAFF Primary Care Provider Active Start: October 26, 2024 End: October 26, 2024 Support Service Tech Relationship Specialty Start Date End Date Jack Rogel MD [address] [facility] [address] [place] [address] PCP - General Family Medicine 06/01/23 Jack Rogel MD [address] [facility] [address] [place] [address] PCP - Fernando COLIN 05/17/24 Linette Blankenship NP [address] [facility] [place] [address] Nurse Practitioner Family Medicine 09/07/22 Toi Horne DPM [address] [facility] [address] [place] [address] Referring Physician Podiatry 06/05/24 Tenzin Hsu MD [address] [address] [address] [place], [place] [address] Referring Physician Vascular Surgery 09/15/24 Goals (unrecognized section and content) Goals may [...] BE BASED ON THE PRIMARY CLINICAL RECORDS. [facility] [employer] [facility]. provides no warranty or guarantee of the accuracy or completeness of information in this document.
[2024-10-30] VITALS (8 sets, daily range): BP systolic 137–168; BP diastolic 80–89; PULSE 59–77; TEMP 36.4–36.6; O2SAT 95–97
--- NOTE | 2024-10-30 03:31 | US_ITS ---
The [address] [address] Patient Name: MADALYN FORBES MRN: [id number] date: 1940 Sex: F Assigned Patient Location: [place] Current Patient Location: [place] Accession/Order Number: [id number] Exam Date: 10/30/2024 08:58 Report Date: 10/30/2024 09:00 At the request of: JO ANN GUILLAUME MD Procedure: US renal BI BILATERAL RENAL AND BLADDER ULTRASOUND CLINICAL HISTORY: Acute on chronic kidney disease COMPARISON: CT 08/30/2023 Estimation of renal size is approximately 9.7 cm on the right and 7.9 cm on the left. The left renal cortex is mildly echogenic. No shadowing calculi or hydronephrosis are identified. No renal mass lesions were imaged. There is no perinephric fluid. The liver parenchyma is echogenic and fatty eventration is not excluded. The urinary bladder is partially distended with a volume of 576 mL. No contour or intraluminal abnormalities are seen. US/US renal BI IMPRESSION: SMALL LEFT KIDNEY WITH ECHOGENIC CORTEX. NO OBSTRUCTIVE UROPATHY. Impression dictated by: Bambi Villagomez M.D. 10/30/2024 9:00 AM Dictation Location: [place] [address] Electronically authenticated by: [id number] Y Date: 10/30/2024 09:00
[2024-10-30] MEDS: LEVOTHYROXINE SODIUM 25 MCG TABLET PO (05:34)
[2024-10-30 05:53] LABS: Hematocrit 31.8 % (36.0-48.0); Hemoglobin 10.2 g/dL (12.0-16.0); Immature Granulocytes Abs Auto 0.01 10^3/uL (0.00-0.03); Immature Granulocytes Pct Auto 0.1 % (0.0-0.5); Lymphocytes Absolute Auto 2.7 10^3/uL (1.2-3.8); Mean Corpuscular HGB Conc 32.1 g/dL (29.9-35.2); Mean Corpuscular Hemoglobin 30.1 pg (26.7-34.0); Mean Corpuscular Volume 93.8 fL (81.0-99.0); Platelet Count 208 10^3/uL (150-450); Red Blood Count 3.39 10^6/uL (4.20-5.40); White Blood Count 7.6 10^3/uL (4.0-11.0)
[2024-10-30 06:06] LABS: INR 1.08; Prothrombin Time 11.4 sec (9.0-11.6)
[2024-10-30 06:18] LABS: Alanine Aminotransferase 11 U/L (14-59); Albumin Globulin Ratio 0.7; Albumin Level 2.8 g/dL (3.4-5.0); Alkaline Phosphatase 60 U/L (46-116); Anion Gap 13.8; Aspartate Amino Transferase 18 U/L (15-37); Blood Urea Nitrogen 37.0 mg/dL (7.0-18.0); Calcium 8.8 mg/dL (8.5-10.1); Carbon Dioxide 25.2 mmol/L (21.0-32.0); Chloride 109 mmol/L (98-107); Estimated GFR (African America 34 (>=60 mL/min/1.73m^2); Estimated GFR (Non-African Ame 28 (>=60 mL/min/1.73m^2); Globulin 3.8 g/dL; Glucose 110 mg/dL (74-106); Magnesium 2.0 mg/dL (1.8-2.4); Potassium 4.0 mmol/L (3.5-5.1); Sodium 144 mmol/L (136-145); Total Protein 6.6 g/dL (6.4-8.2)
--- NOTE | 2024-10-30 08:00 | ECG_ITS ---
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: : 1940 Requested By: [id number] Order Number: [id number] Reading MD: RASHID THOMPSON Measurements Intervals [place] Rate: 63 P: 16 NH: 181 QRS: -13 QRSD: 114 T: 256 QT: 491 QTc: 506 Interpretive Statements SINUS RHYTHM LEFT VENTRICULAR HYPERTROPHY AND ST-T CHANGE [VOLTAGE CRITERIA PLUS ST/T ABNORMALITY] POSSIBLE SEPTAL MYOCARDIAL INFARCTION [30 ms Q WAVE IN V1/V2], OF INDETERMINATE AGE T wave inversion, possible anterolateral ischemia T wave inversion, possible inferior ischemia Compared to ECG 10/29/2024 18:57:48 ST (T wave) deviation now present Sinus arrhythmia no longer present Myocardial infarct finding still present Electronically Signed On 10-31-2024 9:58:07 EDT by RASHID THOMPSON
--- NOTE | 2024-10-30 09:06 | SWNOTE1 ---
SW and I met with pt in room to discuss potential d/c needs. Pt is from home. She lives with her daughter and son. Pt voiced she uses a walker outside the home, but there was a cane in the room. She is independent at home. Has steps to get into home but stays on the first level once inside. Pt voiced she is not current with any services like home health. SW did discuss with pt consult for financial concerns. Pt voiced she has seen many doctors and the bills are adding up. SW did advise patient to call the doctors office or hospital to discuss getting on a payment plan. Pt voiced understanding. SW also suggested pt could speak with our financial counselor. Pt voiced she is already working with them. No other needs identified at this time. SW to follow as needed.
--- NOTE | 2024-10-30 09:10 | SWNOTE1 ---
Medicare Outpatient Observation Notice reviewed and discussed with patient. Pt. verbalized understanding and signed the form. Original given to patient and copy placed in patient?s chart.
[2024-10-30] MEDS: APIXABAN 5 MG TABLET 2.5 MG PO (09:47)
[2024-10-30] MEDS: CARVEDILOL 3.125 MG TABLET PO (09:48)
[2024-10-30] MEDS: ASPIRIN 81 MG TABLET.DR PO (09:48)
[2024-10-30] MEDS: 0.9 % SODIUM CHLORIDE 250 ML 10 ML IV (09:48)
--- NOTE | 2024-10-30 10:00 | CM.NOTE ---
Rounds made with Dr. Colon, discussed with pt admission diagnosis and plan of care. Pt will have Cardiology consult and echo for further recommendations and treatment.
--- NOTE | 2024-10-30 11:20 | PM.HP ---
HPI H&P: HPI History of Present Illness Chief complaint: Up TVOP Narrative: Mrs. Hernandez is an 84-year-old female who came in with the headaches which had subsided. CAT scan is negative for acute intracranial process but positive for old lacunar infarct. Patient was found to have elevated troponin. Patient denies any chest pain or shortness of breath. Patient denies any abdominal pain. She reported that her right arm is achy. Currently she is asymptomatic and requesting to be discharged home. No fever or chills. No hematemesis or melena. No dysuria or hematuria Opioid HPI Opioid Management Most Recent Pain and Opioid Data: Last Pain Scale 8 10/29/24, 18:42 Last Pain Assessment 10/29/24, 23:00 Last ORT Total Score 0 10/29/24, 22:49 Last ORT Risk Category Low Risk 10/29/24, 22:49 Review of Systems ROS Status of ROS 10 or more systems reviewed and unremarkable except as noted in history and below [facility] Medical History (Updated 10/30/24 @ 11:23 by Sheryl Colon MD) Cerebrovascular disease ?I67.9 - Cerebrovascular disease, unspecified (ICD-10) Stage 3b chronic kidney disease (CKD) ?N18.32 - Chronic kidney disease, stage 3b (ICD-10) Type 2 diabetes mellitus with hyperglycemia ?E11.65 - Type 2 diabetes mellitus with hyperglycemia (ICD-10) Colitis ?K52.9 - Noninfective gastroenteritis and colitis, unspecified (ICD-10) Paroxysmal atrial flutter ?I48.92 - Unspecified atrial flutter (ICD-10) HTN (hypertension) ?I10 - Essential (primary) hypertension (ICD-10) CAD (coronary artery disease) ?I25.10 - Atherosclerotic heart disease of [place] coronary artery without angina pectoris (ICD-10) Lumbar spondylosis ?M47.816 - Spondylosis without myelopathy or radiculopathy, lumbar region (ICD-10) AAA (abdominal aortic aneurysm) without rupture ?I71.40 - Abdominal aortic aneurysm, without rupture, unspecified (ICD-10) Cerebrovascular accident ?I63.9 - Cerebral infarction, unspecified (ICD-10) Type 2 diabetes mellitus ?E11.9 - Type 2 diabetes mellitus without complications (ICD-10) Lacunar stroke, acute ?I63.81 - Other cerebral infarction due to occlusion or stenosis of small artery (ICD-10) Hypothyroid ?E03.9 - Hypothyroidism, unspecified (ICD-10) HLD (hyperlipidemia) ?E78.5 - Hyperlipidemia, unspecified (ICD-10) Cataract (lens) fragments in eye following cataract surgery, bilateral ?H59.023 - Cataract (lens) fragments in eye following cataract surgery, bilateral (ICD-10) Cataracts, bilateral ?H26.9 - Unspecified cataract (ICD-10) Chronic kidney disease, stage 3 unspecified ?N18.30 - Chronic kidney disease, stage 3 unspecified (ICD-10) Borderline diabetes mellitus ?R73.03 - Prediabetes (ICD-10) Myocardial infarct, old ?I25.2 - Old myocardial infarction (ICD-10) Surgical History History of appendectomy ?Z90.49 - Acquired absence of other specified parts of digestive tract (ICD-10) History of right heart catheterization ?Z98.890 - Other specified postprocedural states (ICD-10) H/O lumpectomy ?Z98.890 - Other specified postprocedural states (ICD-10) Family History Brother Family history of diabetes mellitus Family history of myocardial infarction Mother Family history of diabetes mellitus Family history of myocardial infarction Sister Family history of myocardial infarction Family history of stroke Daughter Family history of cancer Uncle Family history of CHF (congestive heart failure) Father Family history of COPD (chronic obstructive pulmonary disease) Social History Within the past year, how often did you have a drink containing alcohol: never Score interpretation: A score less than 3 is consistent with normal alcohol consumption. 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 Known occupational exposures/hazards: No Highest level of school completed/degree received: some college, no degree Do you want help with school or training: No Are you now , , , , never or living with a partner: In a typical week, how many times do you talk on the telephone with family, friends, or neighbors: 3 or more times per week How often do you get together with friends or relatives: 3 or more times per week Little interest or pleasure in doing things: not at all Feeling down, depressed, or hopeless: several days Feel stressed/tense/nervous/anxious/difficulty sleeping: not at all Life stressors: recent of family or friend Life stressor details: daughter last year Do you think of yourself as: straight/heterosexual Gender Identity: female Meds Home Medications and Allergies Home Medications ?Medication ?Instructions ?Recorded ?Confirmed ?Type carvedilol 3.125 mg tablet 3.125 mg PO BID 03/21/23 10/29/24 History levothyroxine 25 mcg tablet 25 mcg PO QDAY 03/21/23 10/29/24 History valsartan 40 mg tablet 20 mg PO QDAY 03/21/23 10/29/24 History apixaban 2.5 mg tablet (Eliquis) 2.5 mg PO Q12H 10/29/24 10/29/24 History aspirin 81 mg capsule 81 mg PO DAILY 10/29/24 10/29/24 History Allergies Allergy/AdvReac Type Severity Reaction Status Date / Time Penicillins Allergy Severe Fainting Verified 10/29/24 18:51 lisinopril AdvReac Severe Cough Verified 10/29/24 18:51 Exam Narrative Exam Narrative: [pt is awake and alert. oriented to place, time and person HEENT: [place] conjunctiva and NL buccal mucosa Neck: Supple, no tenderness Endocrine: No Thyromegaly. Vascular: No JVD or carotid bruit. Lymphatic: No cervical lymphadenopathy. Chest: CTA no DTP. Heart RRR, no extra sound or murmur. Abd: Soft, no tenderness, no rebound and no rigidity. Increase abd girth therefore clinically I could not exclude the possibility of intra abd mass or organomegaly. LE: No cyanosis or clubbing, no varices or edema. Patient has mild cyanosis involving the left 3rd and 4th toe. The patient has blackened discoloration of the third rt toe and left second toe. Much improved according to the patient previously. Neuro: A A O. Nl speech, comprehension and attention. Nl and symetrical motor and tone examination through out. []] Constitutional Vital Signs, click to edit/add: Last Vital Signs Temp 97.8 F 10/30/24 07:48 Pulse 61 10/30/24 09:58 Resp 18 10/30/24 07:48 BP 144/80 H 10/30/24 07:48 Pulse Ox 95 10/30/24 07:48 O2 Del Method Room Air 10/30/24 07:48 Results Labs Labs: Short CBC 10/29/24 10/30/24 Range/Units 19:10 05:39 WBC 8.2 7.6 (4.0-11.0) 10^3/uL Hgb 10.8 L 10.2 L (12.0-16.0) g/dL Hct 32.9 L 31.8 L (36.0-48.0) % Plt Count 222 208 (150-450) 10^3/uL BMP 10/29/24 10/30/24 19:10 05:39 Sodium 137 144 Potassium 4.1 4.0 Chloride 103 109 H Carbon Dioxide 23.2 25.2 BUN 35.0 H 37.0 H Creatinine 2.00 H 1.73 H Glucose 215 H 110 H Calcium 8.8 8.8 Liver Function 10/29/24 10/30/24 Range/Units 19:10 05:39 Total Bilirubin 0.5 0.3 (0.2-1.0) mg/dL AST 16 18 (15-37) U/L ALT 14 11 L (14-59) U/L Alkaline Phosphatase 65 60 (46-116) U/L Albumin 3.0 L 2.8 L (3.4-5.0) g/dL Urine 10/29/24 Range/Units 19:14 Urine Color Lt. yellow (YELLOW) Urine Clarity Clear (CLEAR) Urine pH 6.0 (5.0-9.0) Ur Specific [place] 1.015 (1.005-1.025) Urine Protein 100 A (NEG/TRACE) mg/dL Urine Glucose (UA) Negative (NEGATIVE) mg/dL Assessment and Plan Assessment and Plan (1) Acute UTI: (2) Hypertension: (3) Headache: (4) Non-ST elevated myocardial infarction (non-STEMI): (5) Takotsubo cardiomyopathy: (6) Abdominal aortic aneurysm: (7) Peripheral vascular disease: (8) RAZA (acute kidney injury): (9) CKD (chronic kidney disease): Plan Headaches Resolved. CAT scan does not show any acute intracranial process. Positive for remote infarction. No other neurological deficit Consider neuroevaluation if recurs. May need MRI NSTEMI Rising troponin, known history of Takotsubo cardiomyopathy. Abnormal EKG, inverted T waves diffusely, similar to prior. Patient is on beta-jareth, aspirin and Eliquis for Patient is chest pain-free but reported having right arm achiness yesterday. I called and discussed her case with Dr. Jimenez. Dr. Jimenez performed the cardiac cath in March 2024 which showed cardiomyopathy, EF 25%, 95% stenosis in the first diagonal. 90% stenosis in the apical LAD medical treatment was recommended. Dr. Jimenez recommended transfer patient back to [place] emergency department to evaluate her and consider repeat cardiac cath to exclude progression of her CAD or recurrent Takotsubo RAZA, resolved. CKD stage IV Consider nephrology evaluation at [facility] Abdominal aortic aneurysm based on an ultrasound that was completed in July showing aneurysmal size near 5 cm with thrombus. Patient has distal toes ischemia that had happened after her cardiac cath in March. Patient stated that toes ischemia and the discoloration had improved significantly over the last several months. Patient had JESSE index in May 2024 which does not show any significant peripheral vascular disease Patient may need to be seen by vascular team at [facility]. Continue Eliquis and aspirin UTI Urine cultures pending. Continue empiric antibiotic Anemia, no evidence of acute blood loss. Patient will likely require to have anemia workup to be done in the outpatient setting to be handled by PCP in collaboration with other needed outpatient providers. This may include but not limited to EGD, colonoscopy, referral to see hematology and other needed age-appropriate cancer screening. Cachexia, frailty, muscle wasting, failure to thrive, protein calorie malnutrition May need additional investigation. Recommend patient to drink high-calorie protein supplementation twice a day Chronic medical conditions not listed above, incidental findings seen on labs and imaging. These would need to be addressed. Could be addressed when time and condition are appropriate. Could be addressed in the outpatient setting by PCP collaboration with other needed outpatient providers.
--- NOTE | 2024-10-30 11:33 | PM.DS1 ---
DS: Providers Provider Date of admission: 10/29/24 22:30 Primary care physician: REINALDO ROGEL Consults: 10/29/24 Consult to Dietitian Routine Reason for consultation: weight loss Has provider been notified: No Consult to Dbas Routine Reason for consult:: Financial Concerns Other reason:: medical bills DS: Diagnosis Discharge Diagnosis (1) Acute UTI: (2) Hypertension: (3) Headache: (4) Non-ST elevated myocardial infarction (non-STEMI): (5) Takotsubo cardiomyopathy: (6) Abdominal aortic aneurysm: (7) Peripheral vascular disease: (8) RAZA (acute kidney injury): (9) CKD (chronic kidney disease): DS: Summary Hospital Course Hospital Course: Headaches Resolved. CAT scan does not show any acute intracranial process. Positive for remote infarction. No other neurological deficit Consider neuroevaluation if recurs. May need MRI NSTEMI Rising troponin, known history of Takotsubo cardiomyopathy. Abnormal EKG, inverted T waves diffusely, similar to prior. Patient is on beta-jareth, aspirin and Eliquis for Patient is chest pain-free but reported having right arm achiness yesterday. I called and discussed her case with Dr. Jimenez. Dr. Jimenez performed the cardiac cath in March 2024 which showed cardiomyopathy, EF 25%, 95% stenosis in the first diagonal. 90% stenosis in the apical LAD medical treatment was recommended. Dr. Jimenez recommended transfer patient back to [facility] to evaluate her and consider repeat cardiac cath to exclude progression of her CAD or recurrent Takotsubo RAZA, resolved. CKD stage IV Consider nephrology evaluation at [facility] Abdominal aortic aneurysm based on an ultrasound that was completed in July showing aneurysmal size near 5 cm with thrombus. Patient has distal toes ischemia that had happened after her cardiac cath in March. Patient stated that toes ischemia and the discoloration had improved significantly over the last several months. Patient had JESSE index in May 2024 which does not show any significant peripheral vascular disease Patient may need to be seen by vascular team at [facility]. Continue Eliquis and aspirin UTI Urine cultures pending. Continue empiric antibiotic Anemia, no evidence of acute blood loss. Patient will likely require to have anemia workup to be done in the outpatient setting to be handled by PCP in collaboration with other needed outpatient providers. This may include but not limited to EGD, colonoscopy, referral to see hematology and other needed age-appropriate cancer screening. Cachexia, frailty, muscle wasting, failure to thrive, protein calorie malnutrition May need additional investigation. Recommend patient to drink high-calorie protein supplementation twice a day Chronic medical conditions not listed above, incidental findings seen on labs and imaging. These would need to be addressed. Could be addressed when time and condition are appropriate. Could be addressed in the outpatient setting by PCP collaboration with other needed outpatient providers. Time Spent with Patient Time attestation: Total time spent providing and/or coordinating discharge services: Exam Constitutional Vital Signs, click to edit/add: Last Vital Signs Temp 97.8 F 10/30/24 07:48 Pulse 61 10/30/24 09:58 Resp 18 10/30/24 07:48 BP 144/80 H 10/30/24 07:48 Pulse Ox 95 10/30/24 07:48 O2 Del Method Room Air 10/30/24 07:48 DS: Data Data Completed and Pending Labs on day of discharge: Labs from last 24 hours 10/30/24 10/29/24 10/29/24 05:39 23:45 20:15 WBC 7.6 RBC 3.39 L Hgb 10.2 L Hct 31.8 L MCV 93.8 MCH 30.1 MCHC 32.1 RDW 12.9 Plt Count 208 MPV 10.4 Neut % (Auto) 50.5 Lymph % (Auto) 35.7 [place] % (Auto) 6.3 Eos % (Auto) 6.6 Baso % (Auto) 0.8 Neut # (Auto) 3.9 Lymph # (Auto) 2.7 [place] # (Auto) 0.5 Eos # (Auto) 0.5 Baso # (Auto) 0.1 Abs Immat Gran (auto) 0.01 Imm/Tot Granulo (auto) 0.1 PT 11.4 INR 1.08 Sodium 144 Potassium 4.0 Chloride 109 H Carbon Dioxide 25.2 Anion Gap 13.8 BUN 37.0 H Creatinine 1.73 H Est GFR ( Amer) 34 L Est GFR (Non-Af Amer) 28 L BUN/Creatinine Ratio 21.4 Glucose 110 H Calcium 8.8 Magnesium 2.0 Total Bilirubin 0.3 AST 18 ALT 11 L Alkaline Phosphatase 60 Troponin I High Sens 639.4 H* 591.1 H* 235.3 H* Total Protein 6.6 Albumin 2.8 L Globulin 3.8 Albumin/Globulin Ratio 0.7 Lipase Urine Color Urine Clarity Urine pH Ur Specific [place] Urine Protein Urine Glucose (UA) Urine Ketones Urine Occult Blood Urine Nitrite Urine Bilirubin Urine Urobilinogen Ur Leukocyte Esterase Urine RBC Urine WBC Ur Squamous Epith Cells Ur Transition Epith Cell Urine Crystals Urine Bacteria Urine Casts Hyaline Casts Urine Mucus Ur Culture Indicated? Influenza Type A Ag Influenza Type B Ag SARS-CoV-2 Ag (CV2AG) 10/29/24 10/29/24 10/29/24 19:30 19:14 19:10 WBC 8.2 RBC 3.52 L Hgb 10.8 L Hct 32.9 L MCV 93.5 MCH 30.7 MCHC 32.8 RDW 13.0 Plt Count 222 MPV 10.5 Neut % (Auto) 67.4 Lymph % (Auto) 21.0 [place] % (Auto) 5.4 Eos % (Auto) 5.5 Baso % (Auto) 0.5 Neut # (Auto) 5.5 Lymph # (Auto) 1.7 [place] # (Auto) 0.4 Eos # (Auto) 0.5 Baso # (Auto) 0.0 Abs Immat Gran (auto) 0.02 Imm/Tot Granulo (auto) 0.2 PT INR Sodium 137 Potassium 4.1 Chloride 103 Carbon Dioxide 23.2 Anion Gap 14.9 BUN 35.0 H Creatinine 2.00 H Est GFR ( Amer) 29 L Est GFR (Non-Af Amer) 24 L BUN/Creatinine Ratio 17.5 Glucose 215 H Calcium 8.8 Magnesium Total Bilirubin 0.5 AST 16 ALT 14 Alkaline Phosphatase 65 Troponin I High Sens 156.0 H* Total Protein 7.2 Albumin 3.0 L Globulin 4.2 Albumin/Globulin Ratio 0.7 Lipase 85.0 H Urine Color Lt. yellow Urine Clarity Clear Urine pH 6.0 Ur Specific [place] 1.015 Urine Protein 100 A Urine Glucose (UA) Negative Urine Ketones Negative Urine Occult Blood Large A Urine Nitrite Negative Urine Bilirubin Negative Urine Urobilinogen 0.2 Ur Leukocyte Esterase Small A Urine RBC 20-50 A Urine WBC 5-10 A Ur Squamous Epith Cells Rare Ur Transition Epith Cell Rare A Urine Crystals None seen Urine Bacteria Trace A Urine Casts Seen A Hyaline Casts Rare Urine Mucus None seen Ur Culture Indicated? Yes-[facility] [place] Influenza Type A Ag Negative Influenza Type B Ag Negative SARS-CoV-2 Ag (CV2AG) Negative Preliminary micro results at discharge 10/29/24 19:14 Urine Culture - Preliminary Urine,Clean Catch Pending - Specimen sent to [facility] Discharge Plan Discharge Disposition: [facility]
--- NOTE | 2024-10-30 11:48 | P.EN_ITS ---
Event Note Event Note: As documented in my note, I discussed her case with the candy vendor Dr. Melo who recommended her to be transferred to [facility] for consideration of cardiac cath. I discussed her case with my colleague Dr. Rascon who accepted the patient to be admitted under his name to facilitate specialists evaluation, recommendation and intervention
--- NOTE | 2024-10-30 11:48 | PM.EN ---
Event Note Event Note: As documented in my note, I discussed her case with the purchase price analyst Dr. Melo who recommended her to be transferred to [facility] for consideration of cardiac cath. I discussed her case with my colleague Dr. Rascon who accepted the patient to be admitted under his name to facilitate specialists evaluation, recommendation and intervention
--- NOTE | 2024-10-30 12:12 | CM.NOTE ---
Called [facility] cardiology to notify pt was inpatient for echo read.
--- NOTE | 2024-10-30 13:52 | PC.NURSE ---
report given to Shama at [facility], all questions answered
== END 2024-10-30 13:55 | disposition short-term general hospital (02) ==
LOC: ER 21:27 → MS 22:49
PROVIDERS: Nurse Practitioner; Admitting Provider Internal Medicine; Emergency Provider Emergency Medicine; PCP Family Medicine; Visit Provider Internal Medicine
DX: I21.4 Non-ST elevation (NSTEMI) myocardial infarction (principal); N39.0 Urinary tract infection, site not specified; R51.9 Headache, unspecified; I71.40 Abdominal aortic aneurysm, without rupture, unspecified; I12.9 Hypertensive chronic kidney disease with stage 1 through stage 4 chronic kidney disease, or unspecified chronic kidney disease; I51.81 Takotsubo syndrome; I73.9 Peripheral vascular disease, unspecified; N17.9 Acute kidney failure, unspecified; Z86.73 Personal history of transient ischemic attack (TIA), and cerebral infarction without residual deficits; Z63.4 Disappearance and death of family member; I48.91 Unspecified atrial fibrillation; Z79.82 Long term (current) use of aspirin; Z79.01 Long term (current) use of anticoagulants; Z90.49 Acquired absence of other specified parts of digestive tract; N18.4 Chronic kidney disease, stage 4 (severe); I99.8 Other disorder of circulatory system; D64.9 Anemia, unspecified; R64 Cachexia; R62.7 Adult failure to thrive; M62.50 Muscle wasting and atrophy, not elsewhere classified, unspecified site; Z68.24 Body mass index [BMI] 24.0-24.9, adult; E46 Unspecified protein-calorie malnutrition
CPT/HCPCS: 36415; 70450; 76775; 80053; 81001; 83690; 83735; 84484; 85025; 85610; 87086; 87804; 87811; 93005; 96365; 96366; 96375; 99285; G0378; J0696; J1200; J2765

== ENCOUNTER 2024-12-11 21:27 | Emergency (ER) | payer MEDICARE, SELFPAY ==
--- OUTSIDE RECORDS SUMMARY | 2023-10-29 09:30 | XMS_ITS ---
Author Organization [facility] Servic es Address [address] [place] [address] Care Team Providers Care Optometric Coordinator Name Role Phone Naty Rabago Primary Care Provider [phone] Heather Koehler [phone] REASON FOR VISIT DEBRIDEMENT Encounters Encounter Location Date Provider Diagnosis [facility] [address] [place] [address] 10/29/2023 Heather Marion Plan Of Treatment No Information Progress Notes * JONATHAN FORBESOB: 2 (84 yo F)Acc No.[id number]:10/29/2023 Patient: MADALYN CHAPA Provider: Feliberto Alex :1940 A ge:83 Y S ex:Female Date:10/29/2023 Address:[address] [place], [place] [id number] Pcp:Naty Rabago Subjective: * Chief Complaints: * 1 . DEBRIDEMENT. * Medical History: Objective: * Vitals: Assessment: Plan: * Treatment: * Images: * Electronic signature of Michelle Marion on 12/11/2024 at 10:42 PM EDT Sign off status: Pending * Provider: Feliberto Alex Date: 0 10/29/2023 Generated for Zaheer zapien/Randy/eTashleysmbrant on: 0 12/11/2024 10:42 PM EDT
--- OUTSIDE RECORDS SUMMARY | 2023-11-05 09:00 | XMS_ITS ---
Author Organization [facility] Servic es Address [address] [address] Care Team Providers Care Acquisitions Editor Name Role Phone Naty Rabago Primary Care Provider [phone] Heather Koehler [phone] REASON FOR VISIT DEBRIDEMENT Encounters Encounter Location Date Provider Diagnosis [facility] [address] [place] [address] 11/05/2023 Heather Marion Plan Of Treatment No Information Progress Notes * JONATHAN FORBESOB: 2 (84 yo F)Acc No.[id number]:11/05/2023 Patient: MADALYN CHAPA Provider: Feliberto Alex :1940 A ge:83 Y S ex:Female Date:11/05/2023 Address:[address] [place], [place] [phone] Pcp:Naty Rabago Subjective: * Chief Complaints: * 1 . DEBRIDEMENT. * Medical History: Objective: * Vitals: Assessment: Plan: * Treatment: * Images: * Electronic signature of Michelle Marion on 12/11/2024 at 10:41 PM EDT Sign off status: Pending * Provider: Feliberto Alex Date: 0 11/05/2023 Generated for Zaheer zapien/Randy/eTalexy on: 0 12/11/2024 10:41 PM EDT
--- OUTSIDE RECORDS SUMMARY | 2024-12-10 12:00 | XMS_ITS | Encounter Summary ---
Author Organization [facility] Address [address], [address] [place] [address] Care Team Providers Care Business Office Associate Name Role Phone Jack Restrepo MD Primary Care Provider + [phone] Reason for Referral * Other (Routine) - Open Specialty Diagnoses / Procedures Referred By Contac t Referred To Contact Radiology Diagnoses Infrarenal abdominal aortic aneurysm (AAA) without rupture Aneurysm of ascending aorta without rupture Procedures CTA CHEST ABDOMEN PELVIS W CONTRAST Robin Hsu MD [address] [place] [address] [address] [place] [address] Phone: tel: fax: Referral ID Status Reason Start Date Expiration Date Visits Re quested Visits Authorized [id number] Open 06/12/2025 06/12/2026 1 1 Reason for Visit * Reason Comments pad aaa Follow up PAD and AA A-CTA and PVR's 09/24/24. Complains of pain in toes on both feet almost all the time. Encounter Details Date Type Department Care Team (Late st Contact Info) Description 12/10/2024 12:00 PM EDT Office Visit [facility] Part of [address] [place] [address] Robin Hsu MD [address] [place] [address] [address] [place] [id number] Infrarenal abdominal aortic aneurysm (AAA) without rupture (Primary Dx); Aneurysm of ascending aorta without rupture Social History Tobacco Use Types Packs/Day Years [...] on file documented as of this encounter Last Filed Vital Signs Vital Sign Reading Time Taken Comments Blood Pressure 178/96 12/10/2024 12:14 PM EDT Pulse 88 12/10/2024 12:14 PM EDT Temperature 36.6 C (97.9 F) 12/10/2024 12:07 PM EDT Respiratory Rate 18 12/10/2024 12:07 PM EDT Oxygen Saturation - - Inhaled Oxygen Concentration - - Weight 62.1 kg (137 lb) 12/10/2024 12:07 PM EDT Height 160 cm (5' 3 ) 12/10/2024 12:07 PM EDT Body Mass Index 24.27 12/10/2024 12:07 PM EDT documented in this encounter Patient Instructions * Patient Instructions* Alyssia Abbott LPN - 12/10/2024 12:09 PM EDT SURVEY: Thank you for allowing us to care for you today. You may be receiving a survey from [facility] regarding your visit today- electronically or via mail. Please help us by completing the survey as this will provide the needed feedback to ensure we are providing the very best care for you and your family. If you cannot score us a very good on any question, please call the office to discuss how we could have made your experience a very good one. Thank you. DESTINATION SPECIALIST STAFF: Viktoriya Pereira, Josselyn PEREZ CLINICAL STAFF: Alyssia SHANNON, Amanda PEREZ, Christina PEREZ, Domenica SHANNON documented in this encounter Progress Notes * Robin Hsu MD - 12/10/2024 1:06 PM EDT Images from the original note were not included. [facility], [facility] PART OF [address] [facility] [address] Dept: [phone] Patient: Johanny Hernandez : 1940 DOS: 12/10/2024 HPI: Johanny Hernandez is a 84 y.o. female who returns to the office regarding her bilateral toe ischemia. 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 She does have an abdominal aorticaneurysm as well as a distal thoracic aortic aneurysm and an ascending thoracic aortic aneurysm. I have prescribed her Viagra which she stopped taking because it made her toes hurt worse as per her report. She has Nitropaste now which she does apply but also makes her toes hurt worse. The second toe has an ulceration on the right at the toe tip and the first toe has an ulceration on the left at the toe tip. Review of Systems Vitals: 12/10/24 1207 12/10/24 1214 BP: (!) 189/92 (!) 178/96 BP Site: Left Upper Arm Left Upper Arm Patient Position: Sitting Sitting BP Cuff Size: Medium Adult Medium Adult Pulse: 82 88 Resp: 18 Temp: 97.9 ??F (36.6 ??C) TempSrc: Temporal Weight: 62.1 kg (137 lb) Height: 1.6 m (5' 3 ) Physical Exam The examination is as stated above. She has cyanosis and the ulcers on the stated toes above. The cyanosis is in all 5 toes bilaterally. There are no other ulcerations. She has palpable dorsalis pedis and posterior tibial pulses which are strong and robust bilaterally. Assessment: 1. Infrarenal abdominal aortic aneurysm (AAA) without rupture 2. Aneurysm of ascending aorta without rupture Plan: At this point I reiterated that she can restart her Viagra that may improve her lower extremity ischemia. She does not want to do this. I offered her a consult with our wound care center in [place] for hyperbaric therapy. She does not want to go to [place] and would rather go to [facility] or [facility]. I said that [facility] may have hyperbaric therapy that she may want to look into. Otherwise I can see her in 6 months with a CTA of the chest abdomen pelvis to evaluate the aneurysms that already exist. documented in this encounter Plan of Treatment Upcoming Encounters Date Type Department Care Team (Late st Contact Info) Description 06/10/2025 1:15 PM EST Office Visit [facility] Part of [address] [place] [address] Robin Hsu MD [address] [place] [address] [place] [address] [place] [address] AAA without rupture - CTA ordered Scheduled Orders Name Type Priority Associated Diagnoses Orde r Schedule CTA CHEST ABDOMEN PELVIS W CONTRAST Imaging Routine Infrarenal abdominal aortic aneurysm (AAA) without rupture Aneurysm of ascending aorta without rupture Expected: 06/12/2025, Expires: 12/10/2025 documented as of this encounter Visit Diagnoses Diagnosis Infrarenal abdominal aortic aneurysm (AAA) without rupture- Primary Aneurysm of ascending aorta without rupture documented in this encounter Care Teams Business Office Associate Relationship Specialty Start Date End Date Jack Restrepo MD PCP - General 08/06/24 documented as of this encounter
[2024-12-11 21:34] VITALS: BP 186/98; PULSE 85; TEMP 36.9; O2SAT 97; BMI 24.3
[2024-12-11 21:50] VITALS: BP 170/82
--- NOTE | 2024-12-11 22:10 | ED.EXTPRO1 ---
HPI - Extremity Problem General Chief complaint: Extremity Problem, Nontraumatic Stated complaint: RIGHT FOOT HURTS Time Seen by Provider: 12/11/24 22:03 Source: patient Mode of arrival: walk-in History of Present Illness HPI Narrative: This 84-year-old female presents for evaluation of 2 to 3 days of pain across the top of her right foot. She denies any injury. She states it just aches. She does have a history of osteoarthritis and a history of peripheral vascular disease with trash foot . She has sores at the tips of multiple toes with reddish violaceous discoloration at the end of several toes on both feet. She sees vascular surgery for this. She does not have any ankle, lower leg, knee upper leg or hip pain. She states she has been taking Tylenol and sometimes aspirin for the pain. Related Data Home Medications ?Medication ?Instructions ?Recorded ?Confirmed carvedilol 3.125 mg tablet 3.125 mg PO BID 03/21/23 12/11/24 valsartan 40 mg tablet 40 mg PO BID 03/21/23 12/11/24 apixaban 2.5 mg tablet (Eliquis) 2.5 mg PO Q12H 10/29/24 12/11/24 aspirin 81 mg capsule 81 mg PO DAILY 10/29/24 12/11/24 Allergies Allergy/AdvReac Type Severity Reaction Status Date / Time Penicillins Allergy Severe Fainting Verified 12/11/24 21:43 lisinopril AdvReac Severe Cough Verified 12/11/24 21:43 Review of Systems ROS Status of ROS 10 or more systems reviewed and unremarkable except as noted in history and below [facility] Medical History (Updated 12/11/24 @ 23:04 by Mary Garner MD) Cerebrovascular disease ?I67.9 - Cerebrovascular disease, unspecified (ICD-10) Stage 3b chronic kidney disease (CKD) ?N18.32 - Chronic kidney disease, stage 3b (ICD-10) Type 2 diabetes mellitus with hyperglycemia ?E11.65 - Type 2 diabetes mellitus with hyperglycemia (ICD-10) Colitis ?K52.9 - Noninfective gastroenteritis and colitis, unspecified (ICD-10) Paroxysmal atrial flutter ?I48.92 - Unspecified atrial flutter (ICD-10) HTN (hypertension) ?I10 - Essential (primary) hypertension (ICD-10) CAD (coronary artery disease) ?I25.10 - Atherosclerotic heart disease of [place] coronary artery without angina pectoris (ICD-10) Lumbar spondylosis ?M47.816 - Spondylosis without myelopathy or radiculopathy, lumbar region (ICD-10) AAA (abdominal aortic aneurysm) without rupture ?I71.40 - Abdominal aortic aneurysm, without rupture, unspecified (ICD-10) Cerebrovascular accident ?I63.9 - Cerebral infarction, unspecified (ICD-10) Type 2 diabetes mellitus ?E11.9 - Type 2 diabetes mellitus without complications (ICD-10) Lacunar stroke, acute ?I63.81 - Other cerebral infarction due to occlusion or stenosis of small artery (ICD-10) Hypothyroid ?E03.9 - Hypothyroidism, unspecified (ICD-10) HLD (hyperlipidemia) ?E78.5 - Hyperlipidemia, unspecified (ICD-10) Cataract (lens) fragments in eye following cataract surgery, bilateral ?H59.023 - Cataract (lens) fragments in eye following cataract surgery, bilateral (ICD-10) Cataracts, bilateral ?H26.9 - Unspecified cataract (ICD-10) Chronic kidney disease, stage 3 unspecified ?N18.30 - Chronic kidney disease, stage 3 unspecified (ICD-10) Borderline diabetes mellitus ?R73.03 - Prediabetes (ICD-10) Myocardial infarct, old ?I25.2 - Old myocardial infarction (ICD-10) Surgical History History of appendectomy ?Z90.49 - Acquired absence of other specified parts of digestive tract (ICD-10) History of right heart catheterization ?Z98.890 - Other specified postprocedural states (ICD-10) H/O lumpectomy ?Z98.890 - Other specified postprocedural states (ICD-10) Family History Brother Family history of diabetes mellitus Family history of myocardial infarction Mother Family history of diabetes mellitus Family history of myocardial infarction Sister Family history of myocardial infarction Family history of stroke Daughter Family history of cancer Uncle Family history of CHF (congestive heart failure) Father Family history of COPD (chronic obstructive pulmonary disease) Social History Within the past year, how often did you have a drink containing alcohol: never Score interpretation: A score less than 3 is consistent with normal alcohol consumption. 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 Known occupational exposures/hazards: No Highest level of school completed/degree received: some college, no degree Do you want help with school or training: No Are you now , , , , never or living with a partner: In a typical week, how many times do you talk on the telephone with family, friends, or neighbors: 3 or more times per week How often do you get together with friends or relatives: 3 or more times per week Little interest or pleasure in doing things: not at all Feeling down, depressed, or hopeless: not at all Feel stressed/tense/nervous/anxious/difficulty sleeping: not at all Life stressors: recent of family or friend Life stressor details: daughter last year Do you think of yourself as: straight/heterosexual Gender Identity: female Exam Narrative Exam Narrative: Vital signs and Nursing Notes reviewed: Patient is afebrile with a normal pulse, blood pressure is elevated at 170/82, she is not hypoxic with pulse ox of 97% on room air General: Awake, alert, oriented, thin elderly female, no acute distress, lying comfortably on the stretcher HEENT: Normocephalic atraumatic, mucous membranes are moist and pink, eyes are clear, normal conjunctiva, vision is grossly intact Chest: Lungs are clear to auscultation with good air entry, there is no wheezing rhonchi or rales appreciated no accessory muscle use, patient is speaking in complete sentences-no chest wall tenderness to palpation CVS: Regular rate and rhythm S1-S2, no murmurs rubs or gallops, pulses are brisk and equal bilaterally ABD: Soft, nondistended, nontender, no rebound guarding or rigidity, bowel sounds are normal, no pulsatile masses appreciated Extremities: There is violaceous and erythematous discoloration to the distal ends of multiple toes on both feet. This is chronic in nature. Feet are otherwise warm and sensate. Dorsalis pedis and posterior tibialis pulses are brisk and equal bilaterally. There is no reproducible tenderness swelling redness ecchymosis or other notable abnormality to the top of the right foot where the patient is complaining of pain Skin: Chronic changes of peripheral vascular disease/purple toes or trash feet on both lower extremities, chronic in nature, skin is otherwise warm and well-perfused with no rash or other notable abnormality Neuro: No focal deficits Constitutional Vital Signs, click to edit/add: Last Vital Signs Temp 98.5 F 12/11/24 21:34 Pulse 85 12/11/24 21:34 Resp 16 12/11/24 21:34 BP 170/82 H 12/11/24 21:50 Pulse Ox 97 12/11/24 21:34 O2 Del Method Room Air 12/11/24 21:34 Course Vital Signs Vital signs: Vital Signs Temperature 98.5 F 12/11/24 21:34 Pulse Rate 85 12/11/24 21:34 Respiratory Rate 16 12/11/24 21:34 Blood Pressure 186/98 H 12/11/24 21:34 Pulse Oximetry 97 12/11/24 21:34 Oxygen Delivery Method Room Air 12/11/24 21:34 Temperature 98.5 F 12/11/24 21:34 Pulse Rate 85 12/11/24 21:34 Respiratory Rate 16 12/11/24 21:34 Blood Pressure 170/82 H 12/11/24 21:50 Pulse Oximetry 97 12/11/24 21:34 Oxygen Delivery Method Room Air 12/11/24 21:34 MDM - Extremity (Nontraumatic) MDM Narrative Medical decision making narrative: 84-year-old female presents for evaluation of right foot pain for the past 3 to 4 days. Pain is on the top of her foot. She does have a history of chronic peripheral vascular disease/Trash foot for which she sees a vascular surgeon. She denies any injury. Her foot is warm and sensate with normal pulses. Chronic changes are noted but do not appear to be acute or infectious. X-ray of the foot shows mild narrowing of the first metatarsal pharyngeal joint with joint spaces preserved with no fracture or dislocation with some Achilles surface calcaneal spurring and no significant soft tissue swelling. I suspect her symptoms are related to the degenerative changes noted at the first metatarsophalangeal joint. She was medicated with a dose of Tylenol in the emergency department. The foot was wrapped in an Gael wrap for comfort and compression and she is discharged home with recommendation for ice, elevation Tylenol and aspirin as needed. As I was wrapping up her foot she alluded to me that she wished to have a prescription for oxycodone stating that her vascular surgeon has given her oxycodone in the past for her vascular disorder and she is almost out of them. I did not feel it was prudent to give an 84-year-old narcotic analgesics for a chronic condition or for arthritis in her foot. She was referred back to her family physician for further management of her chronic pain. Discharge Plan Discharge Chief Complaint: Extremity Problem, Nontraumatic Clinical Impression: Foot pain, right, Osteoarthritis of foot, right Patient Disposition: Home, Self-Care Time of Disposition Decision: 23:04 Condition: Good Prescriptions / Home Meds: No Action carvedilol 3.125 mg tablet 3.125 mg PO BID valsartan 40 mg tablet 40 mg PO BID Eliquis 2.5 mg tablet 2.5 mg PO Q12H aspirin 81 mg capsule 81 mg PO DAILY Print Language: Uzbek Instructions: Osteoarthritis (ED), Arthralgia (ED) Referrals: REINALDO ROGEL [Primary Care Provider, Family Practice] - 1 week Discharge Date/Time: 12/11/24 23:20
--- NOTE | 2024-12-11 22:11 | XR_ITS ---
The [address] [address] Patient Name: MADALYN FORBES MRN: [id number] date: 1940 Sex: F Assigned Patient Location: ER Current Patient Location: ER Accession/Order Number: [id number] Exam Date: 12/11/2024 22:20 Report Date: 12/11/2024 22:37 At the request of: BJ STORM MD Procedure: XR foot RT min 3V XR foot RT min 3V 12/11/2024 10:26 PM SIGNS AND SYMPTOMS: Acute pain along top of right foot PROTOCOL: Frontal, lateral, and oblique radiographs of the right foot COMPARISON: None FINDINGS: There is mild narrowing of the first metatarsophalangeal joint. The joint spaces are otherwise preserved. There is no fracture or dislocation. There is Achilles surface calcaneal spurring. No significant soft tissue swelling. XR/XR foot RT min 3V IMPRESSION: No acute bony injury. Degenerative changes are noted at the first metatarsophalangeal joint. Impression dictated by: Phil George M.D. 12/11/2024 10:37 PM Dictation Location: [place] [address] Electronically authenticated by: [id number] Y Date: 12/11/2024 22:37
[2024-12-11] MEDS: ACETAMINOPHEN 325 MG TABLET 650 MG PO (22:28)
--- OUTSIDE RECORDS SUMMARY | 2024-12-11 22:41 | XMS_ITS | Encounter Summary ---
Author Organization [facility] tem Address [facility]-[id number] [address] [place] [address] Care Team Providers Care Chicken Stuffer Name Role Phone Jorge Luis Simon DO Primary Care Provider + [phone] Encounter Details Date Type Department Care Team (Late st Contact Info) Description 03/06/2022 Telephone [facility] - Family Medicine [address] [place] [phone] Kimmie Banks CMA Social History Tobacco Use Types Packs/Day Years Used Date Smoking Tobacco: Never Assessed Comments Unknown Sex and Gender Information Value Date Recorded Sex Assigned at Not on file Legal Sex Female 12:07 PM EDT Gender Identity Not on file Sexual Orientation Not on file documented as of this encounter Miscellaneous Notes * Telephone Encounter - Kimmie Banks CMA - 03/06/2022 9:20 AM EST Patient has transferred to [facility] in [place] documented in this encounter Plan of Treatment Not on file documented as of this encounter Visit Diagnoses Not on filedocumented in this encounter Care Teams Chicken Stuffer Relationship Specialty Start Date End Date Jorge Luis Simon DO [address] [place] [address] PCP - General Family Medicine 01/30/22 documented as of this encounter
--- OUTSIDE RECORDS SUMMARY | 2024-12-11 22:41 | XMS_ITS | Encounter Summary ---
Author Organization [facility] tem Address [facility]-[id number] [address] [place] [address] Care Team Providers Care Ui Engineer Name Role Phone Jorge Luis Simon DO Primary Care Provider + [phone] Reason for Visit * Reason Onset Date Comments Med Refill 02/01/2022 Encounter Details Date Type Department Care Team (Late st Contact Info) Description 02/01/2022 Refill [facility] - Family Medicine [address] [place] [address] Jorge Luis Simon DO [address], [facility] [address] Social History Tobacco Use Types Packs/Day Years Used Date Smoking Tobacco: Never Assessed Comments Unknown Sex and Gender Information Value Date Recorded Sex Assigned at Not on file Legal Sex Female 12:07 PM EDT Gender Identity Not on file Sexual Orientation Not on file documented as of this encounter Miscellaneous Notes * Telephone Encounter - Jorge Luis Simon DO - 02/01/2022 12:06 PM EDT Rx sent in. Pt way overdue for an appointment. Please set up * Telephone Encounter - Kimmie Bnaks CMA - 02/01/2022 12:06 PM EDT Left patient a message to schedule an apt with someone at the office for a CV recheck. * Telephone Encounter - Ana Maria Ring MA - 02/01/2022 12:06 PM EDT Patient called to check on the refill of her Carvedilol. When I click on it, it says Discontinued. She said she is completely out. documented in this encounter Plan of Treatment Not on file documented as of this encounter Visit Diagnoses Not on filedocumented in this encounter Care Teams Ui Engineer Relationship Specialty Start Date End Date Jorge Luis Simon DO [address], [place] [address] PCP - General Family Medicine 01/30/22 documented as of this encounter
--- OUTSIDE RECORDS SUMMARY | 2024-12-11 22:41 | XMS_ITS | Encounter Summary ---
Author Organization [facility] Address [address] [place] [address] Care Team Providers Care Business Consult Name Role Phone Amanda Briones MD Primary Care Provider [phone] Linette Blankenship NP Unavailable [phone] Amanda Briones MD Unavailable [phone] Amanda Briones MD Unavailable [phone] Jack Restrepo MD Primary Care Provider Toi Jensen DPM Unavailable [phone] Jack Restrepo MD Unavailable [phone] Robin Hsu MD Unavailable [phone] Encounter Details Date Type Department Care Team (Late st Contact Info) Description 03/20/2023 Orders Only [facility] [address] [place] [address] Amanda Briones MD [address] [place] [address] Social History Tobacco Use Types [...] Time PHQ-9 Depression Total Score: 1 03/16/20 3:00 PM EST documented as of this encounter Care Teams Business Consult Relationship Specialty Start Date End Date Amanda Briones MD [address] [place] [address] PCP - General Family Medicine 09/07/22 05/31/23 Amanda Briones MD [address] [place] [address] PCP - Fernando COLIN 09/14/22 04/15/23 Amanda Briones MD [address] [place] [address] PCP - Devoted 04/16/23 04/15/24 Jack Restrepo MD [address] [address] PCP - General Family Medicine 06/01/23 Jack Restrepo MD [address] [address] PCP - Fernando COLIN 05/17/24 Linette Blankenship NP [address] [place] [address] Nurse Practitioner Family Medicine 09/07/22 Toi Jensen DPM 112 [facility] [address] [place] [address] Referring Physician Podiatry 06/05/24 Robin Hsu MD [address] [address] [address] [place], [place] [address] Referring Physician Vascular Surgery 09/15/24 documented as of this encounter
--- OUTSIDE RECORDS SUMMARY | 2024-12-11 22:41 | XMS_ITS | Encounter Summary ---
Author Organization [facility] Address [address] [place] [address] Care Team Providers Care Binder And Wrapper Packer Name Role Phone Linette Blankenship BETTINA Unavailable [phone] Amanda Briones MD Unavailable [phone] Jack Restrepo MD Primary Care Provider Toi Jensen DPM Unavailable [phone] Jack Restrepo MD Unavailable [phone] Robin Hsu MD Unavailable [phone] Encounter Details Date Type Department Care Team (Late st Contact Info) Description 06/01/2023 Abstract [facility] Family Medicine [address] [place] [address] Mary Garner MD [address] [place] [address] Social History Tobacco Use Types Packs/Day Years [...] documented as of this encounter Care Teams Binder And Wrapper Packer Relationship Specialty Start Date End Date Amanda Briones MD [address] [facility] [place] [address] PCP - Devoted 04/16/23 04/15/24 Jack Restrepo MD 112 [facility] 100 [place] [address] PCP - General Family Medicine 06/01/23 Jack Restrepo MD 112 [facility] 100 [place] [address] PCP - Fernando COLIN 05/17/24 Linette Blankenship NP [address] [place] [address] Nurse Practitioner Family Medicine 09/07/22 Toi Jensen DPM 112 [facility] 120 [place] [address] Referring Physician Podiatry 06/05/24 Robin Hsu MD [address] [address] [address] [place] [address] Referring Physician Vascular Surgery 09/15/24 documented as of this encounter
--- OUTSIDE RECORDS SUMMARY | 2024-12-11 22:41 | XMS_ITS | Encounter Summary ---
Author Organization [facility] Address [id number] [address] [place] [address] Care Team Providers Care Rental Car Deliverer Name Role Phone Jorge Luis Simon DO Primary Care Provider [phone] Reason for Visit * Reason Onset Date Comments Med Refill 02/01/2022 Encounter Details Date Type Department Care Team (Late st Contact Info) Description 02/01/2022 Refill [facility] - Family Medicine [address] [place] [address] Jorge Luis Simon DO [address] [facility] [address] Social History Tobacco Use Types Packs/Day Years [...] on filedocumented in this encounter Care Teams Rental Car Deliverer Relationship Specialty Start Date End Date Jorge Luis Simon DO [address] [address] PCP - General Family Medicine 01/30/22 documented as of this encounter
--- OUTSIDE RECORDS SUMMARY | 2024-12-11 22:41 | XMS_ITS | Encounter Summary ---
Author Organization [facility] Address [facility][id number] [address] [place] [address] Care Team Providers Care Sales Solutions Representative Name Role Phone Jorge Luis Simon DO Primary Care Provider + [phone] Encounter Details Date Type Department Care Team (Late st Contact Info) Description 03/23/2023 Orders Only [facility] [employer] [address] [place] [phone] Transcribe, Orders Support User Pain (Primary Dx) Social History Tobacco Use Types Packs/Day Years Used Date Smoking Tobacco: Never Assessed Comments Unknown Sex and Gender Information Value Date Recorded Sex Assigned at Not on file Legal Sex Female 12:07 PM EDT Gender Identity Not on file Sexual Orientation Not on file documented as of this encounter Plan of Treatment Not on file documented as of this encounter Results * MRA neck without contrast (03/21/2023 6:20 PM EST) us Scanning Provider External IMG MRI ORDERABLES Fi nal Result * MRA head without contrast (03/21/2023 6:05 PM EST) us Scanning Provider External IMG MRI ORDERABLES Fi nal Result * MR brain without contrast (03/21/2023 5:45 PM EST) us Scanning Provider External IMG MRI ORDERABLES Fi nal Result * CT brain without contrast stroke alert (03/21/2023 3:30 PM EST) us Scanning Provider External IMG CT ORDERABLES Fin al Result documented in this encounter Visit Diagnoses Diagnosis Pain- Primary Generalized pain documented in this encounter Care Teams Sales Solutions Representative Relationship Specialty Start Date End Date Jorge Luis Simon DO [address] [facility], [place] [address] PCP - General Family Medicine 01/30/22 documented as of this encounter
--- OUTSIDE RECORDS SUMMARY | 2024-12-11 22:41 | XMS_ITS | Encounter Summary ---
Author Organization [facility] Address [address] [place] [address] Care Team Providers Care Temple Marker Name Role Phone Linette Blankenship BETTINA Unavailable [phone] Jack Restrepo MD Primary Care Provider [phone] Toi Jensen DPM Unavailable [phone] Jack Restrepo MD Unavailable [phone] Robin Hsu MD Unavailable [phone] Encounter Details Date Type Department Care Team (Late st Contact Info) Description 08/19/2024 Orders Only [facility] Family Medicine [address] [place] [address] Jack Restrepo MD 112 [facility] [address] [place] [address] Social History Tobacco Use Types Packs/Day Years [...] documented as of this encounter Care Teams Temple Marker Relationship Specialty Start Date End Date Jack Restrepo MD 112 [facility] 100 [place] [address] PCP - General Family Medicine 06/01/23 Jack Restrepo MD 112 [facility] 100 [place] [address] PCP - Fernando COLIN 05/17/24 Linette Blankenship NP [address] [place] [address] Nurse Practitioner Family Medicine 09/07/22 Toi Jensen DPM 112 [facility] 120 [place] [address] Referring Physician Podiatry 06/05/24 Robin Hsu MD [address] [address] [address] [place] [address] Referring Physician Vascular Surgery 09/15/24 documented as of this encounter
--- OUTSIDE RECORDS SUMMARY | 2024-12-11 22:41 | XMS_ITS | Clinical Summary ---
Author Organization [employer] [facility] tem Address [id number] [address] [place] [address] Care Team Providers Care Machine Tool Mechanic Name Role Phone Jorge Luis Simon Primary Care Provider + [phone] Medications carvediloL (COREG) 3.125 mg tabletIndications :Essential hypertension Take 1 tablet (3.125 mg total) by mouth in the morning and 1 tablet (3.125 mg total) before bedtime. 60 tablet 2 Active Social History Tobacco Use Types Packs/Day Years Used Date Smoking Tobacco: Never Assessed Comments Unknown Sex and Gender Information Value Date Recorded Sex Assigned at Not on file Legal Sex Female 12:07 PM EDT Gender Identity Not on file Sexual Orientation Not on file Plan of Treatment Health Maintenance Due Date Last Done Comments Depression Screening 1952 Tobacco Screening 1952 DTaP,Tdap and Td Vaccines (1 - Tdap) 1960 Zoster (Shingles) Vaccine (1 of 2) 1991 Fall Risk Screening 2006 COVID-19 Vaccine (2023-2 5 season) 2023 01/23/2023, 01/06/2022, 02/04/2021, Additional history exists Influenza Vaccine 12/15/2024 01/23/2023, , 01/19/2021, Additional history exists Medical [place] [address] [employer] MEDICARE Care Teams Machine Tool Mechanic Relationship Specialty Start Date End Date Jorge Luis Simon DO [address] [place] [address] PCP - General Family Medicine 01/30/22
--- OUTSIDE RECORDS SUMMARY | 2024-12-11 22:41 | XMS_ITS | Encounter Summary ---
Author Organization [facility] Address [address] [place] [address] Care Team Providers Care Smt Machine Operator Name Role Phone Linette Blankenship BETTINA Unavailable [phone] Amanda Briones MD Unavailable [phone] Jack Restrepo MD Primary Care Provider [phone] Toi Jensen DPM Unavailable [phone] Jack Restrepo MD Unavailable [phone] Robin Hsu MD Unavailable [phone] Encounter Details Date Type Department Care Team (Late st Contact Info) Description 06/01/2023 Orders Only [facility] Family Medicine [address] [place] [address] Mary Garner MD [address] [place] [address] Social History Tobacco Use Types Packs/Day Years [...] Laterality Modality Radiographic Tami ging us Mary Graner MD IMG XR PROCEDURES Final Result documented in this encounter Visit Diagnoses Not on filedocumented in this encounter Additional Health Concerns Assessment Noted Time PHQ-9 Depression Total Score: 2 05/14/19 24 1:00 PM EST documented as of this encounter Care Teams Smt Machine Operator Relationship Specialty Start Date End Date Amanda Briones MD [address] [place] [address] PCP - Devoted 04/16/23 04/15/24 Jack Restrepo MD 112 [facility] 100 [place] [address] PCP - General Family Medicine 06/01/23 Jack Restrepo MD 112 [facility] 100 [place] [address] PCP - Fernando COLIN 05/17/24 Linette Blankenship NP [address] [place] [address] Nurse Practitioner Family Medicine 09/07/22 Toi Jensen DPM 112 [facility] 120 [place] [address] Referring Physician Podiatry 06/05/24 Robin Hsu MD [address] [address] [address] [facility] [place] [address] Referring Physician Vascular Surgery 09/15/24 documented as of this encounter
--- OUTSIDE RECORDS SUMMARY | 2024-12-11 22:41 | XMS_ITS | Encounter Summary ---
Author Organization [facility] Address [address] [place] [address] Phone Care Team Providers Care Utilization Specialist Name Role Phone Jack Restrepo MD Primary Care Provider [phone] Encounter Details Date Type Department Care Team (Late st Contact Info) Description 05/19/2024 Scanned Document [facility] [address] [place] [phone] Scanning, Generic Provider Social History Tobacco Use [...] Description 12/16/2024 2:30 PM EDT Office Visit [facility] Medical Office Building [address] [phone] Eloise Galicia MD [address] [place] [address] 03/02/2025 1:40 PM EST Telemedicine [facility] [address] [place] [address] Emma Hall, PharmD [address] [place] [address] documented as of this encounter Procedures Procedure [...] documented as of this encounter Care Teams Utilization Specialist Relationship Specialty Start Date End Date Jack Restrepo MD [address] [place] [address] PCP - General Family Medicine 05/19/24 documented as of this encounter
--- OUTSIDE RECORDS SUMMARY | 2024-12-11 22:41 | XMS_ITS | Encounter Summary ---
Author Organization [facility] Address [address] [place] [address] Care Team Providers Care Globe Tester Name Role Phone Amanda Briones MD Primary Care Provider [phone] Linette Blankenship NP Unavailable [phone] Amanda Brionse MD Unavailable [phone] Raoul Bueno BEEF PLUCK TRIMMER Unavailable [phone] Raoul Bueno LPN Unavailable [phone] Amanda Briones MD Unavailable [phone] Jack Restrepo MD Primary Care Provider + [phone] Toi Jensen DPM Unavailable [phone] Jack Restrepo MD Unavailable [phone] Robin Hsu MD Unavailable [phone] Encounter Details Date Type Department Care Team (Late st Contact Info) Description 09/13/2022 Abstract [facility] [place] [facility] [address] [place] [address] Amanda Briones MD [address] [place] [address] Social History Tobacco Use Types [...] on filedocumented in this encounter Care Teams Globe Tester Relationship Specialty Start Date End Date Amanda Briones MD [address] [place] [address] PCP - General Family Medicine 09/07/22 05/31/23 Amanda Briones MD [address] [place] [address] PCP - Fernando COLIN 09/14/22 04/15/23 Amanda Briones MD [address] [place] [address] PCP - Devoted 04/16/23 04/15/24 Jack Restrepo MD [address] [address] PCP - General Family Medicine 06/01/23 Jack Restrepo MD [address] [address] PCP - Fernando COLIN 05/17/24 Linette Blankenship NP [address] [place] [address] Nurse Practitioner Family Medicine 09/07/22 Raoul Bueno LPN [address] [place] [address] Licensed Practical Nurse Family Medicine 11/29/2211/29 Raoul Bueno LPN [address] [place] [address] Licensed Practical Nurse Family Medicine 12/04/2202/14 Toi Jensen DPM 112 [facility] [address] [place] [address] Referring Physician Podiatry 06/05/24 Robin Hsu MD [address] [address] [address] [place], [place] [address] Referring Physician Vascular Surgery 09/15/24 documented as of this encounter
--- OUTSIDE RECORDS SUMMARY | 2024-12-11 22:41 | XMS_ITS | Encounter Summary ---
Author Organization [facility] Address [address] [place] [address] Phone Care Team Providers Care Assembler Caterpillar Spider Name Role Phone Jack Restrepo MD Primary Care Provider [phone] Encounter Details Date Type Department Care Team (Late st Contact Info) Description 05/29/2024 Scanned Document [facility] [address] [place] [phone] Scanning, Generic Provider Social History Tobacco Use [...] Description 12/16/2024 2:30 PM EDT Office Visit [facility] Medical Office Building [address] [phone] Eloise Galicia MD [address] [place] [address] 03/02/2025 1:40 PM EST Telemedicine [facility] [address] [place] [address] Emma Hall, PharmD [address] [place] [address] documented as of this encounter Procedures Procedure [...] documented as of this encounter Care Teams Assembler Caterpillar Spider Relationship Specialty Start Date End Date Jack Restrepo MD [address] [address] PCP - General Family Medicine 05/19/24 documented as of this encounter
--- OUTSIDE RECORDS SUMMARY | 2024-12-11 22:41 | XMS_ITS | Clinical Summary ---
Author Organization [facility] Address [address] [facility], [address] [place] [address] Care Team Providers Care Code Official Name Role Phone Jack Restrepo MD Primary Care Provider + [phone] Allergies Active Allergy Reactions Criticality Noted Date [...] 2 times daily 30 tablet 1 Active Additional Information Patient not taking.Reported on 12/10/2024 NITRO-BID 2 % ointment Place 0.5 inches onto the skin 2 times daily Active Encounters Date Type Department Care Team Description 12/10/2024 12:00 PM EDT Office Visit [address] [place] [address] Robin Hsu MD 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 [address] [place], [place] [address] Robin Hsu MD Discharge Disposition: Home or Self Care 09/24/2024 7:55 AM EDT - 09/26/2024 11:59 PM EDT Hospital Encounter [facility] CT Scan [address] [place], [place] [address] Robin Hsu MD Infrarenal abdominal aortic aneurysm (AAA) without rupture Discharge Disposition: Home or Self Care 09/24/2024 7:54 AM EDT - 09/26/2024 11:59 PM EDT Hospital Encounter 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 VASCULAR Part of [address] [place] [address] Robin Hsu MD [address] [place] [address] [address] [place] [address] AAA without rupture - CTA ordered Health Maintenance Due Date Last Done Comments Lipids 1950 Depression Screen 1953 DTaP/Tdap/Td vaccine (1 - Tdap) 1960 Shingles vaccine (1 of 2) 1991 DEXA (modify frequency per FRAX score) 1996 Respiratory Syncytial Virus (RSV) or age 60 yrs+ (1 - 1-dose 75+ series) 2016 Annual Wellness Visit (Medicare Advantage) 04/16/2024 COVID-19 Vaccine ( season) 2024 03/27/2024, 01/23/2023, 01/06/2022, Additional history [...] Routine 09/24/2024 8:39 AM EDT Atherosclerosis of shinnecock artery of both lower extremities with rest [...] - 0.90 mg/dL 09/24/2024 8:10 AM EDT [facility] Est, Glom Filt Rate 28(L) >60 mL/min/1.7 3m2 09/24/2024 8:10 AM EDT [facility] Comment: These results are not intended [...] Robin Hsu MD CHEMISTRY ORDERABLES Final Result [facility] [address] [place] [address], [facility] [phone] from Last 3 Months Insurance MEDICARE Care Teams Code Official Relationship Specialty Start Date End Date Jack Restrepo MD PCP - General 08/06/24
--- OUTSIDE RECORDS SUMMARY | 2024-12-11 22:41 | XMS_ITS | Encounter Summary ---
Author Organization [facility] Address [address] [place] [address] Care Team Providers Care Cafe Assistant Name Role Phone Linette Blankenship BETTINA Unavailable [phone] Jack Restrepo MD Primary Care Provider [phone] Toi JensenM Unavailable [phone] Jack Restrepo MD Unavailable [phone] Robin Hsu MD Unavailable [phone] Encounter Details Date Type Department Care Team (Late st Contact Info) Description 09/25/2024 Abstract [facility] Family Medicine 112 [facility] 100 [place] [address] Jack Restrepo MD 112 [facility] 100 [place] [address] Social History Tobacco Use Types Packs/Day Years [...] documented as of this encounter Care Teams Cafe Assistant Relationship Specialty Start Date End Date Jack Restrepo MD 112 [facility] 100 [place] [address] PCP - General Family Medicine 06/01/23 Jack Restrepo MD 112 [facility] 100 [place] [address] PCP - Fernando COLIN 05/17/24 Linette Blankenship NP [address] [place] [address] Nurse Practitioner Family Medicine 09/07/22 Toi Jensen DPM 112 [facility] 120 [place] [address] Referring Physician Podiatry 06/05/24 Robin Hsu MD [address] [address] [address] [place] [address] Referring Physician Vascular Surgery 09/15/24 documented as of this encounter
--- OUTSIDE RECORDS SUMMARY | 2024-12-11 22:41 | XMS_ITS | Encounter Summary ---
Author Organization [facility] tem Address [id number] [address] [place] [address] Care Team Providers Care Patrol Community Service Officer Name Role Phone Jorge Luis Simon DO Primary Care Provider [phone] Encounter Details Date Type Department Care Team (Late st Contact Info) Description 05/19/2022 Orders Only [facility] Internal [facility] - Family Medicine [address] [place] [address] External, Scanning Provider Social History Tobacco Use Types Packs/Day [...] Procedure Name Priority Date/Time Associated Diagnosis Comments MAMMOGRAPHY Routine 05/19/2022 documented in this encounter Results * MAMMOGRAPHY (05/19/2022) Anatomical Region Laterality Modality Other us Scanning Provider External HEALTH MAINTENANCE Fi nal Result documented in this encounter Visit Diagnoses Not on filedocumented in this encounter Care Teams Patrol Community Service Officer Relationship Specialty Start Date End Date Jorge Luis Simon DO [address] [place] [address] PCP - General Family Medicine 01/30/22 documented as of this encounter
--- OUTSIDE RECORDS SUMMARY | 2024-12-11 22:41 | XMS_ITS | Encounter Summary ---
Author Organization [facility] Address [address] [place] [address] Care Team Providers Care Healthcare Administration Intern Name Role Phone Amanda Briones MD Primary Care Provider [phone] Linette Blankenship NP Unavailable [phone] Amanda Briones MD Unavailable [phone] Amanda Briones MD Unavailable [phone] Jack Restrepo MD Primary Care Provider [phone] Toi Jensen DPM Unavailable [phone] Jack Restrepo MD Unavailable [phone] Robin Hsu MD Unavailable [phone] Encounter Details Date Type Department Care Team (Late st Contact Info) Description 03/21/2023 Orders Only [facility] [address] [place] [address] Unallocated, Noms MD [place] [address] [place] [address] Social History Tobacco Use Types Packs/Day Years [...] documented as of this encounter Care Teams Healthcare Administration Intern Relationship Specialty Start Date End Date Amanda Briones MD [address] [place] [address] PCP - General Family Medicine 09/07/22 05/31/23 Amanda Briones MD [address] [place] [address] PCP - Fernando COLIN 09/14/22 04/15/23 Amanda Briones MD [address] [place] [address] PCP - Devoted 04/16/23 04/15/24 Jack Restrepo MD 112 [facility] [address] [place] [address] PCP - General Family Medicine 06/01/23 Jack Restrepo MD [address] [address] PCP - Fernando COLIN 05/17/24 Linette Blankenship NP [address] [place] [address] Nurse Practitioner Family Medicine 09/07/22 Toi Jensen DPM 112 [facility] [address] [place], [place] [address] Referring Physician Podiatry 06/05/24 Robin Hsu MD [address] [address] [address] [place], [place] [address] Referring Physician Vascular Surgery 09/15/24 documented as of this encounter
--- OUTSIDE RECORDS SUMMARY | 2024-12-11 22:41 | XMS_ITS | Encounter Summary ---
Author Organization [facility] Address [address] [place] [address] Phone Care Team Providers Care Patent Examiner Name Role Phone Jack Restrepo MD Primary Care Provider [phone] Encounter Details Date Type Department Care Team (Late st Contact Info) Description 06/04/2024 Scanned Document [facility] [address] [place] [id number] Scanning, Generic Provider Social History Tobacco Use [...] Description 12/16/2024 2:30 PM EDT Office Visit [facility] Medical Office Building [address] [phone] Eloise Galicia MD [address] [place] [address] 03/02/2025 1:40 PM EST Telemedicine [facility] [address] [place] [address] Emma Hall, PharmD [address] [place] [address] [place] [address] Scheduled Orders Name Type Priority Associated Diagnoses Orde r Schedule Ultrasound- OnBase Scan Imaging O rdered: 06/04/2024 documented as of this encounter Visit Diagnoses Not on filedocumented in this encounter Additional Health Concerns Assessment Noted Time A fall risk assessment has been complete d for the patient 05/19/2024 1:59 PM EST documented as of this encounter Care Teams Patent Examiner Relationship Specialty Start Date End Date Jack Restrepo MD [address] [place] [address] PCP - General Family Medicine 05/19/24 documented as of this encounter
--- OUTSIDE RECORDS SUMMARY | 2024-12-11 22:41 | XMS_ITS | Encounter Summary ---
Author Organization [facility] Address [address] [place] [address] Care Team Providers Care Rink Rat Name Role Phone Amanda Briones MD Primary Care Provider [phone] Linette Blankenship NP Unavailable [phone] Amanda Briones MD Unavailable [phone] Amanda Briones MD Unavailable [phone] Jack Restrepo MD Primary Care Provider [phone] Toi Jensen DPM Unavailable [phone] Jack Restrepo MD Unavailable [phone] Robin Hsu MD Unavailable [phone] Encounter Details Date Type Department Care Team (Late st Contact Info) Description 03/27/2023 Orders Only [facility] Family Medicine [address] [facility] [place] [address] Jack Restrepo MD 112 [facility] [address] [place] [address] (Fax) Social History Tobacco Use [...] documented as of this encounter Care Teams Rink Rat Relationship Specialty Start Date End Date Amanda Briones MD 14[address] [facility] [place] [address] PCP - General Family Medicine 09/07/22 05/31/23 Amanda Briones MD 1479 [facility] [place] [address] PCP - Fernando COLIN 09/14/22 04/15/23 Amanda Briones MD 14[address] [facility] [place] [address] PCP - Devoted 04/16/23 04/15/24 Jack Restrepo MD 112 [facility] 100 [place] [address] PCP - General Family Medicine 06/01/23 Jack Restrepo MD 112 [facility] 100 [place] [address] PCP - Fernando COLIN 05/17/24 Linette Blankenship NP [address] [facility] [place] [address] Nurse Practitioner Family Medicine 09/07/22 Toi Jensen DPM 112 [facility] 120 [place] [address] Referring Physician Podiatry 06/05/24 Robin Hsu MD [address] [place] [address] Referring Physician Vascular Surgery 09/15/24 documented as of this encounter
--- OUTSIDE RECORDS SUMMARY | 2024-12-11 22:41 | XMS_ITS | Encounter Summary ---
Author Organization [facility] tem Address [id number] [address] [place] [address] Care Team Providers Care Leaf Stamper Name Role Phone PremJorge Luis norris Primary Care Provider [phone] Encounter Details Date Type Department Care Team (Late st Contact Info) Description 02/14/2022 Orders Only [facility] Internal [facility] - Family Medicine [address] [place] [address] External, Scanning Provider Social History Tobacco Use Types Packs/Day Years Used Date Smoking Tobacco: Never Assessed Comments Unknown Sex and Gender Information Value Date Recorded Sex Assigned at Not on file Legal Sex Female 12:07 PM EDT Gender Identity Not on file Sexual Orientation Not on file documented as of this encounter Progress Notes * Kimmie Banks CMA - 02/14/2022 4:42 PM EDT Spoke to patient and she has transferred to [facility] documented in this encounter Plan of Treatment Not on file documented as of this encounter Procedures Procedure Name Priority Date/Time Associated Diagnosis Comments MULTIPLE LABS Routine 12/08/2021 documented in this encounter Results * Multiple labs (12/08/2021) 12/08/2021 us Scanning Provider External CO IMAGING Final Result MANUALLY TRANSCRIBED RESULTS documented in this encounter Visit Diagnoses Not on filedocumented in this encounter Care Teams Leaf Stamper Relationship Specialty Start Date End Date Jorge Luis Simon DO [address], [facility] [place] [address] PCP - General Family Medicine 01/30/22 documented as of this encounter
--- OUTSIDE RECORDS SUMMARY | 2024-12-11 22:41 | XMS_ITS | Encounter Summary ---
Author [facility] Address [id number] [address] [place] [address] Care Team Providers Care Transactional Paralegal Name Role Phone Jorge Luis Simon DO Primary Care Provider [phone] Encounter Details Date Type Department Care Team (Late st Contact Info) Description 02/14/2022 Telephone [facility] - Family Medicine [address] [place] [address] Kathie Fraser, ELOY-DIRECTOR WOMEN [address] [place] [address] Social History Tobacco Use Types Packs/Day Years Used Date Smoking Tobacco: Never Assessed Comments Unknown Sex and Gender Information Value Date Recorded Sex Assigned at Not on file Legal Sex Female 12:07 PM EDT Gender Identity Not on file Sexual Orientation Not on file documented as of this encounter Miscellaneous Notes * Telephone Encounter - Marcia Simon - 02/14/2022 5:53 PM EDT Notified pt for the need to make an appointment and lab results. documented in this encounter Plan of Treatment Not on file documented as of this encounter Visit Diagnoses Not on filedocumented in this encounter Care Teams Transactional Paralegal Relationship Specialty Start Date End Date Jorge Luis Simon DO [address] [place], [place] [address] PCP - General Family Medicine 10/17/22 documented as of this encounter
--- OUTSIDE RECORDS SUMMARY | 2024-12-11 22:41 | XMS_ITS | Encounter Summary ---
Author Organization [facility] Address [address] [place] [address] Care Team Providers Care Golf Course Manager Name Role Phone Amanda Briones MD Primary Care Provider [phone] Linette Blankenship NP Unavailable [phone] Amanda Briones MD Unavailable [phone] Jack Restrepo MD Primary Care Provider Toi Jensen DPM Unavailable [phone] Jack Restrepo MD Unavailable [phone] Robin Hsu MD Unavailable [phone] Encounter Details Date Type Department Care Team (Late st Contact Info) Description 05/09/2023 Orders Only [facility] Family Medicine [address] [facility] [address] Jack Restrepo MD 112 [facility] [address] [place] [address] Social History Tobacco Use Types Packs/Day Years [...] documented as of this encounter Care Teams Golf Course Manager Relationship Specialty Start Date End Date Amanda Briones MD [address] [place] [address] PCP - General Family Medicine 09/07/22 05/31/23 Amanda Briones MD [address] [place] [address] PCP - Devoted 04/16/23 04/15/24 Jack Restrepo MD 112 [facility] 100 [place] [address] PCP - General Family Medicine 06/01/23 Jack Restrepo MD [address] [address] PCP - Fernando COLIN 05/17/24 Linette Blankenship NP [address] [place] [address] Nurse Practitioner Family Medicine 09/07/22 Toi Jensen DPM 112 [facility] 120 [place] [address] Referring Physician Podiatry 06/05/24 Robin Hsu MD [address] [address] [address] [place] [address] Referring Physician Vascular Surgery 09/15/24 documented as of this encounter
--- OUTSIDE RECORDS SUMMARY | 2024-12-11 22:41 | XMS_ITS | Clinical Summary ---
Author Organization [facility] Address [address] [place] [address] Care Team Providers Care Battery Container Tester Name Role Phone Jorge Luis Simon Primary [...] original vaccine, a ge 12+ yr, monovalent ([employer] - PURPLE TOP) 02/04/2021,06/03/2020,05/12/2020 influenza (HD-IIV3) vaccine, [...] N ot on file 04/28/2022 Data from: https://www.neighborhoodatlas.medicine.[facility]/. Last address used for calculation [address] [...] Vaccine (1 - 1-dose 75+ series) 2016 Advance Directive Discussion 04/16/2024 Diabetes Screening 07/28/2024 [...] METABOLIC PANEL (07/28/2021 2:03 PM EDT) Pathologist [facility] Protein, Total 7.5 6.3 - 8.0 g/dL 07/28/2021 2:33 PM EDT [facility] Albumin 4.2 3.9 - 4.9 g/dL 07/28/2021 2:33 PM EDT [facility] Calcium, Total 9.8 8.5 - 10.2 mg/dL 07/28/2021 2:33 PM EDT [facility] Bilirubin, Total 0.4 0.2 - 1.3 mg/dL 07/28/2021 2:33 PM EDT [facility] Alkaline Phosphatase 72 34 - 123 U/L 07/28/2021 2:33 PM EDT [facility] AST 17 13 - 35 U/L 07/28/2021 2:33 PM EDT [facility] ALT 7 7 - 38 U/L 07/28/2021 2:33 PM EDT [facility] Glucose 129(H) 74 - 99 mg/dL 07/28/2021 2:33 PM EDT [facility] Comment: The [place] Diabetes Association (ADA) provides guidance for cutoff [...] Standards of Medical Care in Diabetes 2016, [place] Diabetes Association. Diabetes Care. 2016.39(Suppl 1). BUN 22(H) 7 - 21 mg/dL 07/28/2021 2:33 PM EDT [facility] Creatinine 1.31(H) 0.58 - 0.96 mg/dL 07/28/2021 2:33 PM EDT [facility] Sodium 138 136 - 144 mmol/L 07/28/2021 2:33 PM EDT [facility] Potassium 4.6 3.7 - 5.1 mmol/L 07/28/2021 2:33 PM EDT [facility] Chloride 105 97 - 105 mmol/L 07/28/2021 2:33 PM EDT [facility] CO2 26 22 - 30 mmol/L 07/28/2021 2:33 PM EDT [facility] Anion Gap 7(L) 9 - 18 mmol/L 07/28/2021 2:33 PM EDT [facility] Estimated Glomerular Filtration Rate 41(L) >=60 mL/min/1. 73m 07/28/2021 2:33 PM EDT [facility] Comment:Estimated Glomerular Filtration Rate (eGFR) [...] us Drake Anand MD LABORATORY Final Result [facility] [address] [place] [address] from Last 3 Months or Most Recently Relevant to Health Maintenance Insurance [employer] HMO Care Teams Battery Container Tester Relationship Specialty Start Date End Date Jorge Luis Simon DO [address] [place] [address] PCP - General Family Medicine 03/28/21
--- OUTSIDE RECORDS SUMMARY | 2024-12-11 22:42 | XMS_ITS | Encounter Summary ---
Author Organization [facility] Address [address] [place] [address] Care Team Providers Care Cutter And Paster Press Clippings Name Role Phone Linette Blankenship BETTINA Unavailable [phone] Jack Restrepo MD Primary Care Provider [phone] Toi JensenM Unavailable [phone] Jack Restrepo MD Unavailable [phone] Robin Hsu MD Unavailable [phone] Encounter Details Date Type Department Care Team (Late st Contact Info) Description 10/27/2024 Abstract [facility] Family Medicine [address] [facility] 100 [place] [address] Jack Restrepo MD 112 [facility] 100 [place] [address] Social History Tobacco Use Types Packs/Day Years [...] documented as of this encounter Care Teams Cutter And Paster Press Clippings Relationship Specialty Start Date End Date Jack Restrepo MD 112 [facility] 100 [place] [address] PCP - General Family Medicine 06/01/23 Jack Restrepo MD 112 [facility] 100 [place] [address] PCP - Fernando COLIN 05/17/24 Linette Blankenship NP [address] [place] [address] Nurse Practitioner Family Medicine 09/07/22 Toi Jensen DPM 112 [facility] 120 [place] [address] Referring Physician Podiatry 06/05/24 Robin Hsu MD [address] [address] [address] [place] [address] Referring Physician Vascular Surgery 09/15/24 documented as of this encounter
--- OUTSIDE RECORDS SUMMARY | 2024-12-11 22:42 | XMS_ITS | CCD ---
Author Organization [facility] Care Team Providers Care Grout Worker Name Role Phone RIAN ROSS Admitting Unavailable [...] Unavailable SANTA HENDERSON Consulting Unavailable KUNS, DR JULIUS Del Castillo Admitting Unavailable KUNS, DR JULIUS Del Castillo Attending Unavailable FURLONG, DR JORGE LUIS Garrison Primary Care Unavailable WEST, DR TENZIN Cortes Consulting Unavailable KUNS, DR JULIUS Del Castillo Consulting Unavailable WIECEK, DR TIM [...] MISC, DR BARRETT Consulting Unavailable KUNS, DR JULIUS Del Castillo Attending Unavailable KUNS, DR JULIUS Del Castillo Admitting Unavailable FURLONG, DR JORGE LUIS Garrison Primary Care Unavailable WEST, DR TENZIN Cortes Consulting Unavailable KUNS, DR JULIUS Del Castillo Consulting Unavailable Jorge Luis Whitehead Primary Care Provider Jorge Luis Whitehead DO Primary Care Provider Jorge Luis Whitehead DO Primary Care Provider Gabi Gaona Unavailable Jorge Luis Whitehead DO Primary Care Provider Premlong, DO Kang Primary Care Provider [phone] MD Simin Lama Attending Provider DRAKE ANAND Attending Unavailable KUNTE, DRAKE Referring Unavailable FURLONG, JORGE LUIS MINDI Primary Care Unavailab le MATTY ANANDARTH Referring Unavailable FURLONG, JORGE LUIS MINDI Primary Care Unavailab SIMIN Burton Attending Unavailable LARY, DRAKE Referring Unavailable FURLONG, JORGE LUIS MINDI Primary Care Unavailab jairo Briones MD, Amanda Primary Care Provider Pattie BED BUG EXTERMINATOR, Linette Unavailable Amanda Briones MD Unavailable Jack Rogel MD Primary Care Provider Jorge Luis Whitehead DO Primary Care Provider Jack Rogel MD Primary Care Provider Amanda Briones MD Unavailable [phone] Jack Rogel MD Primary Care Provider Jack Rogel MD Primary Care Provider [phone] Ngoc Wolf MD Admit Provider Gordo Fagan MD Attending Provider Eloise Galicia MD Attending Provider [phone] Scott Ojeda DO Emergency Provider Mikey BRUNSON, Toi Krishnan Unavailable [phone] Jack Rogel MD Primary Care Provider ELOISE GALICIA Referring Unavailable JACK ROGEL Primary Care Unavailable ELOISE GALICIA Referring Unavailable JACK ROGEL Primary Care Unavailable Jack Rogel MD Unavailable KAT PALOMARES Attending Unavailable ELOISE GALICIA Referring Unavailable JACK ROGEL Primary Care Unavailable KAT PALOMARES Attending Unavailable ELOISE GALICIA Referring Unavailable JACK ROGEL Primary Care Unavailable Tenzin Hsu MD Unavailable Jack Rogel MD Primary Care Provider [phone] TENZIN HSU Attending Unavailable TENZIN HSU Referring Unavailable HEMESIMON, JACK Dao Primary Care Unavailable TENZIN HSU Attending Unavailable TENZIN HSU Referring Unavailable HEMESIMON, JACK Dao Primary Care Unavailable TENZIN HSU Attending Unavailable TENZIN HSU Referring Unavailable HEMESIMON, JACK Dao Primary Care Unavailable Jack Rogel MD Primary Care Provider Casi Holloway APRN Attending Provider [phone] NON STAFF Primary Care Provider UnavailTenzin Kang MD Unavailable Valdo Hamilton DO Attending Provider Cirilo Rascon MD Admit Provider Cirilo Rascon MD Attending Provider Karin Almanza RN Other Provider Unavailable Iqra Jimenez DO Other Provider Holland Byrne MD Other Provider [phone] Artemio Walden MD Other Provider Esther Hagan MD Other Provider [phone] Janusz Dill MD Other Provider Neena Brock APRN Other Provider Eloise Galicia MD Other Provider Luis M MELCHOR, Tiago Gandara Other Provider Mayank Ramsey MD Other Provider [facility] Other Provider Cirilo Rascon MD Other Provider Joan Boyd MD Attending Provider ELOISE GALICIA Attending Unavailable JACK ROGEL Primary Care Unavailable GALICIA, ELOISE Attending Unavailable GALICIA, ELOISE Referring Unavailable HEMESIMON, EDWARD J Primary Care Unavailable PEBBLES, JACK J Attending Unavailable TOI HORNE Attending Unavailable JR. SON, GIORGIO Staton Attending Unavaila ble HEMESIMON, JACK Dao Referring Unavailable JR. SON, GIORGIO Staton Referring Unavaila ble PEBBLES, JACK J Attending Unavailable BRIAN MISHRA Attending Unavailable MEHRDAD JACKSON Attending Unavailable HEMEJACK FARFAN Attending Unavailable HEMEYER, JACK J Attending Unavailable HEMESIMON, JACK J Attending Unavailable Valdo Hamilton Admitting Unavailable Valdo Hamilton Attending Unavailable Galicia, Eloise Admitting Unavailable Galicia, Eloise Attending Unavailable Hemesimon, Edjasmin J Primary Care Unavailable NON STAFF Primary Care Unavailable Casi Holloway Admitting UnavailCasi Sanders Attending Unavailabl e Karin Almanza Consulting Unavailable Dereje Rascondermary Moran Admitting Unavailab le Cirilo Rascon Attending Unavailab le NON STAFF Primary Care Unavailable Karin Almanza Consulting Unavailable Iqra Jimenez Consulting Unavailable Byrne, Lino Consulting Unavailable Artemio Walden Consulting Unavail able Esther Hagan Consulting Unavailable Janusz Dill Consulting Unavailab Neena Guardado Consulting Unavailable Galicia, Eloise Consulting Unavailable Luis M, Tiago Najeeb Consulting Unavailab Mayank Kang Consulting Unavailable Masha London Consulting Unavailable Karin Almanza Consulting Unavailable Ngoc Wolf Admitting Unavailable Hemesimon, Edward J Primary Care Unavailable Gordo Fagan Attending Unavailable Iqra Jimenez Consulting Unavailable Byrne, Lino Consulting Unavailable Artemio Walden Consulting Unavail able Esther Hagan Consulting Unavailable Janusz Dill Consulting Unavailab Neena Guradado Consulting Unavailable Galicia, Eloise Consulting Unavailable Luis M, Tiago Najeeb Consulting Unavailab jairo Ramsey, Tarek Consulting Unavailable Masha London Consulting Unavailable Pebbles, Edward J Primary Care Unavailable Scott Ojeda Admitting Unavailable Scott Ojeda Attending Unavailable Allergies Allergy Classification Reported Allergen(s) Allergy Type Date of Onset Reaction(s) Facility (14 sources) Amino Acids; Translations: [LISINOPRIL] Drug Allergy 04-05-20 21 Cough [facility] Repository (14 sources) Penicillins; Translations: [PENICILLINS] Drug allergy (disorder) 09-21-19 16 Rash, Rash, dizziness, LOC [facility] Repository (18 sources) Lisinopril Drug Allergy 04-05-20 21 Unknown, Cough, Other [facility] (2 sources) Penicillins Drug Intolerance 04-05-20 21 Other: See Comments [facility] (12 sources) Penicillins Drug Intolerance 04-05-20 21 Other: See Comments, Other, Dizziness or Vertigo [facility] (5 sources) Amino Acids Drug Allergy 02-01-20 Other: See Comments [facility] (1 source) Penicillin V Drug Allergy dizziness, LOC [facility] Other (20 sources) Amino Acids Drug Allergy 02-01-20 Other [facility] Work Phone: (20 sources) HMG-CoA reductase inhibitor Propensity to adverse reactions 09-09-19 Other [facility] Work Phone: (20 sources) Lisinopril Propensity to adverse reactions 04-05-20 21 Cough, Other [facility] (20 sources) Penicillins Drug Intolerance 04-05-20 21 Other [facility] (9 sources) HMG-CoA reductase inhibitor; Translations: [[id number]-CEA REDUCTASE INHIBITORS] Drug Intolerance 09-09-[address] [facility] Work Phone: (7 sources) atorvastatin; Translations: [ATORVASTATIN] Drug Allergy 05-19-19 25 GI Upset, Myalgia [facility] (4 sources) Penicillins Drug Intolerance 04-05-20 21 Other, Diarrhea [facility] Work Phone: (15 sources) gabapentin Drug Allergy 08-28-19 Diarrhea [facility] Work Phone: (3 sources) atorvastatin Drug Allergy 08-06-19 25 Nausea Only [facility] (1 source) Lisinopril Drug Allergy 10-27-19 [facility] Repository (1 source) Penicillins Drug allergy (disorder) 10-27-19 [facility] Repository Medications Current Medications Medication Drug Class(es) Dates Sig (Normalized) Sig (Original) apixaban 2.5 mg oral tablet (20 sources) Factor Xa Inhibitor Start: 11-05-2024 take 1 tablet by mouth in the morning Eliquis 2.5 MG tablet Take 2.5 mg by mouth in the morning and 2.5 mg before bedtime. 11/05/2024 Active Start: 10-26-2024 take 1 tablet by edna twice daily Apixaban (Eliquis) 2.5 mg tablet Active 2.5 MG PO Twice daily October 26, 2024 12:00am Complies with drug therapy Start: 05-20-2024 End: 08-18-2024 take 1 tablet by mouth twice daily in the morning apixaban (Eliquis) 2.5 mg tablet Indications: Paroxysmal atrial fibrillation (Multi) Take 1 tablet (2.5 mg) by mouth 2 times a day. 180 tablet 3 08/15/2024 8:51 AM EDT 08/13/2024 Active Start: 09-24-2023 End: 11-10-2024 take 1 tablet by mouth in the morning apixaban (Eliquis) 5 MG tablet Indications: Paroxysmal atrial fibrillation (HCC) Take 1 tablet (5 mg) by mouth in the morning and 1 tablet (5 mg) before bedtime. 60 tablet 09/24/2023 11/10/2024 Discontinued (Dose adjustment) Start: 07-02-2023 End: 07-30-2024 take 1 tablet [...] 81 MG PO Daily April 04, 2024 1:00am Complies with drug therapy Start: 06-14-2018 End: 04-02-2024 take 1 tablet by mouth once daily Aspirin 81 mg Tablet,Chewable Discontinued 81 MG PO Daily June 14, 2018 1:00am April 02, 2024 11:27pm take 1 tablet by edna th once daily aspirin 81 MG EC tablet Take 1 tablet by mouth daily Active aspirin 81 mg ca p aspirin low dose 81mg ec Active aspirin 81 mg ca p aspirin low dose 81mg ec 0 Active Comment on above: aspirin low dose 81m g ec carvedilol 6.25 mg oral tablet (20 sources) [...] take 1 tablet by mouth twice daily Carvedilol 3.125 mg tablet Active 3.125 MG PO Twice daily October 26, 2024 12:00am Complies with drug therapy Comment on above: Take 3.125 mg by edna th twice daily with meals. ezetimibe 10 mg oral tablet (20 sources) Dietary Cholesterol Absorption Inhibitor End: take 1 tablet by mouth in the morning ezetimibe (Zetia) 10 MG tablet Take 10 mg by mouth in the morning. 09/15/2024 Discontinued (Med list cleanup) gabapentin 100 mg oral capsule (1 source) Anti-epileptic Agent Start: 5 End: 5 take 1 capsule by mouth [...] Active magnesium oxide 400 mg oral tablet (13 sources) Start: 4 End: 6 take 1 tablet by mouth twice daily 24 hr metoprolol succinate 25 mg extended release oral tablet (2 sources) beta-Adrenergic Jareth Start: End: take 1 tablet by mouth once daily [...] Take 1 tablet by mouth daily Active nitroglycerin 0.02 mg/mg topical ointment (13 sources) Nitrate Vasodilator Start : 11-02 Nitro-Bid 2 % ointment Place 0.5 inches on the skin in the morning and 0.5 inches before bedtime. See instructions. 11/02/2024 Active Start: 11-01-2024 Start: 06-14-2018 End: 10-12-2018 Nitroglycerin 0.4 mg tablet, sublingual Discontinued 0.4 MG SUBLINGUAL every 5 to 15 minutes as needed for chest pain June 14, 2018 1:00am October 11, 2018 12:00am October 12, 2018 12:02am until response; do not exceed 3 doses per episode rosuvastatin calcium 5 mg oral tablet (20 sources) HMG-CoA Reductase Inhibitor Start: 05-20-2024 End: 01-07-2025 take 1 tablet by mouth once daily Rosuvastatin 5 mg tablet Active 5 MG PO Daily October 30, 2024 12:00am Complies with drug therapy spironolactone 25 mg oral tablet (20 sources) Aldosterone Antagonist Start: 10-31-2024 take 1 tablet by mouth once daily Start: 05-19-2024 End: 05-19-2025 take 0.5 tablet by mouth once daily [...] by mouth twice daily Valsartan 40 mg tablet Active 40 MG PO Twice daily October 26, 2024 12:00am Complies with drug therapy Start: 04-04-2024 End: 06-04-2024 take 1 tablet by mouth twice daily Valsartan 40 mg Tablet Discontinued 40 MG PO Twice daily 60 30 April 04, 2024 1:00am June 04, 2024 4:13pm Start: 07-02-2023 End: 09-07-2024 take 1 tablet by mouth once daily valsartan (Diovan) 40 MG tablet Indications: Primary hypertension Take 1 tablet (40 mg) by mouth Daily 90 tablet 1 03/11/2024 Active Start: 04-03-2023 End: 09-30-2023 take 0.5 tablet by mouth in the morning valsartan (Diovan) 40 MG tablet Indications: Primary hypertension (CMS/HCC) Take 0.5 tablets (20 mg) by mouth in the morning. 45 tablet 1 04/03/2023 09/30/2023 Active Completed/Discontinued Medications Medication Drug Class(es) Dates Sig (Normalized) Sig (Original) acetaminophen 325 mg / HYDROcodone bitartrate 5 mg oral tablet (10 sources) Opioid Agonist Start: 06-11-2024 End: 10-26-2024 take 1 tablet by mouth every six hours as needed for pain Hydrocodone-Acetam inophen 5-325 mg tablet Discontinued 1 TAB PO Every 6 hours as needed for breakthrough pain, moderate 20 7 June 11, 2024 October 26, 2024 10:45am atorvastatin 80 mg oral tablet (20 sources) HMG-CoA Reductase Inhibitor Start: 06-19-2024 End: 11-10-2024 take 1 tablet by mouth in the evening atorvastatin (Lipitor) 80 MG tablet Take 80 mg by mouth in the evening 06/19/2024 11/10/2024 Discontinued (Side effects) Start: 04-04-2024 End: 06-04-2024 take 1 tablet [...] 14, 2018 1:00am April 02, 2024 11:28pm 5 ml bupivacaine hydrochloride 5 mg/ml injection (4 sources) Amide Local Anesthetic Start: 10-07-2024 End: 10-07-2024 bupivacaine PF (Marcaine) 0.5 % injection 1 mL Start: 10-07-2024 End: 10-07-2024 1 mL, Injection, Once PRN Pr ocedure, Starting on Sun10/07/24 at 0933, For 1 dose clopidogrel 75 mg oral tablet (12 sources) [id number] Platelet Inhibitor Start: 04-18-2023 End: 10-15-2023 take 1 tablet by mouth once daily clopidogrel (Plavix) 75 mg tablet Take 1 tablet (75 mg) by mouth once daily. 0 04/18/2023 07/02/2023 Discontinued (Therapy completed) Start: 06-18-2018 End: 07-13-2019 take 1 tablet by mouth once daily Clopidogrel (Plavix) 75 mg tablet Discontinued 75 MG PO Daily June 18, 2018 1:00am July 12, 2019 12:00am July 13, 2019 12:03am 1 ml enoxaparin sodium 100 mg/ml prefilled syringe (9 sources) Low Molecular Weight Heparin Start: 06-18-2018 [...] 03/20/2023 Active lisinopril 2.5 mg oral tablet (9 sources) Angiotensin Converting Enzyme Inhibitor Start: 06-14-2018 End: 04-02-2024 take 1 tablet by mouth once daily Lisinopril 2.5 mg Tablet Discontinued 2.5 MG PO Daily 30 June 14, 2018 1:00am April 02, 2024 11:28pm metFORMIN hydrochloride 500 mg oral tablet (9 sources) Biguanide Start: 06-14-2018 End: 04-02-2024 Metformin [...] sulfate 15 mg extended release oral tablet (10 sources) Opioid Agonist Start: 06-11-2024 End: 10-26-2024 take 1 tablet by mouth every twelve hours Morphine (Ms Contin) 15 mg tablet extended release Discontinued 15 MG PO Every 12 hours 14 June 11, 2024 October 26, 2024 10:45am nitrofurantoin, macrocrystals 25 mg / nitrofurantoin, monohydrate 75 mg oral capsule (4 sources) Nitrofuran Antibacterial Start: 10-26-2024 End: 10-30-2024 take 1 capsule by mouth twice daily at mealtime Nitrofurantoin Monohyd/M-Cryst (Macrobid) 100 mg capsule Discontinued 100 MG PO Twice daily 10 5 October 26, 2024 12:00am October 30, 2024 4:31pm must administer with a meal/food ondansetron 4 mg disintegrating oral tablet (20 [...] take 1 tablet by mouth twice daily Sacubitril-Valsarta n (Entresto) 49-51 mg tablet Discontinued 1 TAB [...] TAKE 1 TABLET BY MOUTH TWICE DAILY sildenafil 50 mg oral tablet (17 sources) Phosphodiesterase 5 Inhibitor Start: 08-07-19 End: 11-11-19 take 1 tablet by mouth in the morning sildenafil (Viagra) 50 MG tablet Take 50 mg by mouth in the morning and 50 mg before bedtime. 08/28/2024 11/10/2024 Discontinued (Med list cleanup) warfarin sodium 5 mg oral tablet (9 sources) Vitamin K Antagonist Start: 06-19-19 End: 01-15-20 take 1 tablet by mouth once daily Warfarin (Coumadin) 5 mg tablet Discontinued 5 MG PO Daily June 18, 2018 1:00am January 13, 2019 12:00am January 14, 2019 12:03am Problems Active Problems Problem Classification Problem Date Documented Date Episodic/Chronic Acute and unspecified renal failure (2 sources) Acute renal failure syndrome; Translations: [Acute kidney failure, unspecified] 11-06-2024 Episodic Acute cerebrovascular disease (20 sources) Ischemic stroke; Translations: [Cerebral infarction due to unspecified occlusion or stenosis of right posterior cerebral artery] Onset: 04-03-2023 05-25-2023 Chronic Comment on above: March 2023 Acute myocardial infarction (20 sources) Myocardial infarction; Translations: [Non-ST elevation (NSTEMI) myocardial infarction] Onset: 05-19-2024 06-14-2018 Chronic Comment on above: Problem List [...] Translations: [Chronic kidney disease, stage 3b (HCC) ([facility]/HCC)] Onset: 09-08-2022 05-25-2023 Chronic Conduction disorders (9 sources) Long QT syndrome; Translations: [Long QT syndrome] 06-15-2018 Chronic Comment on above: Problem List clean-u p per request of Phys. EHR Cmte Congestive heart failure; nonhypertensive (12 sources) Heart failure, unspecified; Translations: [Acute on chronic systolic heart failure] Onset: 03-28-2021 07-09-2024 Chronic Coronary atherosclerosis and other heart disease (20 sources) Atherosclerotic heart disease of [place] coronary artery without angina pectoris; Translations: [Old myocardial infarction] Onset: 03-28-2021 06-15-2018 Chronic Comment on above: Problem List clean-u p per request of Phys. EHR Cmte Diabetes mellitus with complications (20 sources) Type 2 diabetes mellitus; Translations: [Type 2 diabetes mellitus with diabetic chronic kidney disease] Onset: 09-08-2022 05-25-2023 Chronic Diabetes mellitus without complication (15 sources) Type 2 diabetes mellitus without complications; [...] clean-u p per request of Phys. EHR [facility] Genitourinary symptoms and ill-defined conditions (5 sources) Dysuria; Translations: [Dysuria] Onset: 10-26-2024 10-26-2024 Episodic Hypertension with complications and secondary [...] left non-dominant side] Onset: 04-03-2023 05-25-2023 Chronic Nonspecific chest pain (1 source) Chest pain, unspecified; Translations: [Chest pain, unspecified] Onset: 10-30-2024 Episodic Osteoarthritis (4 sources) Arthritis of right knee; Translations: [Unilateral primary osteoarthritis, right knee] 10-07-2024 Chronic Other aftercare (1 source) Other assisted (current) drug therapy; Translations: [OTH [facility] CURRENT DRUG THERAPY] Onset: 03-28-2021 Episodic Other aftercare (1 source) nursing home (current) use of oral hypoglycemic drugs; Translations: [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 EHR Cmte Other and ill-defined heart disease (9 sources) Left ventricular cardiac dysfunction; Translations: [Heart disease, unspecified] 06-15-2018 Chronic Comment on above: Problem List clean-u p per request of Phys. EHR Cmte Other and ill-defined heart disease (1 source) Takotsubo syndrome; Translations: [Takotsubo syndrome] Onset: 10-30-2024 Chronic Other circulatory disease (2 sources) Raynaud's phenomenon; Translations: [Raynaud's syndrome without gangrene] 05-29-2024 Chronic Other circulatory disease (20 sources) Raynaud's disease; Translations: [Raynaud's syndrome without gangrene] Onset: 06-09-2024 5 Chronic Other circulatory disease (1 source) Raynaud's syndrome without gangrene; Translations: [Raynaud's syndrome without gangrene] Onset: 10-30-2024 Chronic Other circulatory disease (6 sources) Abnormal foot pulse; Translations: [Other specified symptoms and signs involving the circulatory and respiratory systems] 03-11-2024 Episodic Other circulatory disease (1 source) Other disorder of circulatory system; Translations: [Other disorder of circulatory system] Onset: 10-30-2024 Episodic Other connective tissue disease (7 sources) Foot pain; Translations: [Pain in unspecified [...] Translations: [Anesthesia of skin] 06-25-2024 Episodic Other nervous system disorders (4 sources) Drug-induced myopathy; Translations: [Toxic myopathy] Onset: 11-10-2024 11-10-2024 Episodic Other non-traumatic joint disorders (4 sources) Pain in right knee; Translations: [Pain in joint, lower leg] 06-25-2024 Episodic Other screening for suspected conditions (not [...] 04-04-2024 04-04-2024 Chronic Peripheral and visceral atherosclerosis (5 sources) Atherosclerosis of artery of lower limb; Translations: [Atherosclerosis of [place] arteries of extremities with rest pain, bilateral legs] Onset: 09-24-2024 09-24-2024 Chronic Pulmonary heart disease (20 sources) Pulmonary hypertension, unspecified; Translations: [Other chronic pulmonary heart diseases] Onset: 04-03-2023 05-25-2023 Chronic Residual codes; unclassified (4 sources) Body mass index 20-24 - normal; Translations: [Body mass index (BMI) 24.0-24.9, adult] Onset: 07-11-2024 07-11-2024 Episodic Screening and history of mental health and substance abuse codes (8 sources) Patient encounter status; Translations: [Encounter for [...] [Radiculopathy, lumbar region] 09-19-2024 Episodic Thyroid disorders (13 sources) Hypothyroidism; Translations: [Hypothyroidism, unspecified] Onset: 10-30-2024 04-02-2024 Chronic Unclassified (1 source) CONTACT W/AND (SUSP) EXPOS COVID-19; Translations: [CONTACT W/AND (SUSP) EXPOS COVID-19] Onset: 03-19-2021 Unclassified (3 sources) Drug therapy finding 07-11-2024 Unclassified (2 sources) Abdominal aortic aneurysm, without rupture, unspecified; Translations: [Abdominal aortic aneurysm, without rupture, unspecified] Onset: 07-09-2024 Unclassified (2 sources) Infrarenal abdominal aortic aneurysm, without rupture; Translations: [Infrarenal abdominal aortic aneurysm, without rupture] Onset: 09-24-2024 Unclassified (1 source) Office is currently closed. Call office on Sunday to schedule follow-up with your Primary Care Provider within 3-5 days of discharge. Unclassified (1 source) if you do not want to go to [place] like this previous appointment was set up please call office [phone] and ask to switch to [place] Office with Dr Galicia Urinary tract infections (2 sources) Acute urinary tract infection; Translations: [Urinary tract infection, site not specified] 11-06-2024 Episodic Past or Other Problems Problem Classification Problem [...] aftercare (6 sources) Treatment changed; Translations: [Other assisted (current) drug therapy] Onset: 07-02-2023 07-02-2023 Episodic Other aftercare (4 sources) Post-discharge follow-up; Translations: [Encounter for follow-up examination after completed treatment for conditions other than malignant neoplasm] Onset: 05-19-2024 05-19-2024 Episodic Other aftercare (4 sources) bed bug exterminator (current) use of anticoagulants; Translations: [bed bug exterminator (current) use of anticoagulants] Onset: 07-11-2024 Episodic Other aftercare (2 sources) Encounter for follow-up examination after completed treatment for conditions other than malignant neoplasm; Translations: [Encounter for follow-up examination after completed treatment for conditions other than malignant neoplasm] Onset: 05-19-2024 Episodic Other circulatory disease (20 sources) [...] [Other drug allergy] Onset: 07-02-2023 07-02-2023 Episodic Residual codes; unclassified (2 sources) Body mass index (BMI) 24.0-24.9, adult; Translations: [Body mass index (BMI) 24.0-24.9, adult] Onset: 07-11-2024 Episodic Unclassified (6 sources) Onset: 07-02-2023 Resolved: [...] Test Name Value Interpretation Reference Range Facility A1C with Estimated Average G luo 10-31-2024 Glucose [Mass/Vol] 131 mg/dL Normal [facility] Comment on above: Result Comment: PERF ORMED BY: [facility] [address] [place] [address] PATHOLOGIST PROTOTYPE ENGINEER MANAGER BRISA ESPINAL M.D. Performed By: #### C BC, PT, PTT, CMP, MG, LIPID, HS TROP, A1C WT eA ####[place] [id number] [address] HbA1c (Bld) [Mass fraction] 6.2 % High 4.3-5.6 [facility] Comment on above: Result Comment: Incr eased risk for diabetes: 5.7 - 6.4 diabetes: >6.4 glycemic control for adults with diabetes: <7.0 Performed By: #### C BC, PT, PTT, CMP, MG, LIPID, HS TROP, A1C WT eA ####[address] Complete Blood Count Auto Di ffon 10-31-2024 Basophils (Bld) [#/Vol] 0.0 10*3/uL Normal 0.0-0.2 [facility] Comment on above: Result Comment: PERF ORMED BY: [facility] [place] [address] PATHOLOGIST PROTOTYPE ENGINEER MANAGER BRISA ESPINAL M.D. Performed By: #### C BC, PT, PTT, CMP, MG, LIPID, HS TROP, A1C WTH eA ####[address] Basophils/100 WBC (Bld) 0.5 % Normal . [facility] Comment on above: Performed By: #### C BC, PT, PTT, CMP, MG, LIPID, HS TROP, A1C WTH eA ####[address] Eosinophils (Bld) [#/Vol] 0.5 10*3/uL High 0.0-0.45 [facility] Comment on above: Performed By: #### C BC, PT, PTT, CMP, MG, LIPID, HS TROP, A1C WTH eA ####[address] Eosinophils/100 WBC (Bld) 6.4 % Normal . [facility] Comment on above: Performed By: #### C BC, PT, PTT, CMP, MG, LIPID, HS TROP, A1C WTH eA ####[address] Erythrocyte distribution width (RBC) [Ratio] 13.7 % Normal 11.9-15.3 [facility] Comment on above: Performed By: #### C BC, PT, PTT, CMP, MG, LIPID, HS TROP, A1C WTH eA ####[place] [id number] [facility] Hematocrit (Bld) [Volume fraction] 32.1 % Low 34.0-46.4 [facility] Comment on above: Performed By: #### C BC, PT, PTT, CMP, MG, LIPID, HS TROP, A1C WTH eA ####[place] [id number] [facility] Hemoglobin (Bld) [Mass/Vol] 10.9 g/dL Low 11.8-15.4 [facility] Comment on above: Performed By: #### C BC, PT, PTT, CMP, MG, LIPID, HS TROP, A1C WTH eA ####[address] Lymphocytes (Bld) [#/Vol] 2.5 10*3/uL Normal 1.00-4.8 [facility] Comment on above: Performed By: #### C BC, PT, PTT, CMP, MG, LIPID, HS TROP, A1C WTH eA ####[address] Lymphocytes/100 WBC (Bld) 30.2 % Normal . [facility] Comment on above: Performed By: #### C BC, PT, PTT, CMP, MG, LIPID, HS TROP, A1C WTH eA ####[address] MCH (RBC) [Entitic mass] 30.7 pg Normal 24.7-34.3 [facility] Comment on above: Performed By: #### C BC, PT, PTT, CMP, MG, LIPID, HS TROP, A1C WTH eA ####[address] MCV (RBC) [Entitic vol] 90.4 fL Normal 80-100 [facility] Comment on above: Performed By: #### C BC, PT, PTT, CMP, MG, LIPID, HS TROP, A1C WTH eA ####[address] Mean Corpuscular HGB Conc 34.0 g/dL Normal 32.0-35.0 [facility] Comment on above: Performed By: #### C BC, PT, PTT, CMP, MG, LIPID, HS TROP, A1C WTH eA ####[address] Monocytes (Bld) [#/Vol] 0.5 10*3/uL Normal 0.0-0.8 [facility] Comment on above: Performed By: #### C BC, PT, PTT, CMP, MG, LIPID, HS TROP, A1C WTH eA ####[place] [id number] [facility] Monocytes/100 WBC (Bld) 5.7 % Normal . [facility] Comment on above: Performed By: #### C BC, PT, PTT, CMP, MG, LIPID, HS TROP, A1C WTH eA ####[place] [id number] [facility] Neutrophils (Bld) [#/Vol] 4.7 10*3/uL Normal 1.8-7.7 [facility] Comment on above: Performed By: #### C BC, PT, PTT, CMP, MG, LIPID, HS TROP, A1C WTH eA ####[place] [id number] [facility] Neutrophils/100 WBC (Bld) 57.2 % Normal . [facility] Comment on above: Performed By: #### C BC, PT, PTT, CMP, MG, LIPID, HS TROP, A1C WTH eA ####[place] [id number] [facility] NRBC% 0.1 /100{WBC} Normal 0-0.5 [facility] Comment on above: Performed By: #### C BC, PT, PTT, CMP, MG, LIPID, HS TROP, A1C WTH eA ####[place] [id number] [facility] Platelet mean volume (Bld) [Entitic vol] 8.8 fL Normal 6.3-10.7 [facility] Comment on above: Performed By: #### C BC, PT, PTT, CMP, MG, LIPID, HS TROP, A1C WTH eA ####[place] [id number] [facility] Platelets (Bld) [#/Vol] 209 10*3/uL Normal 150-450 [facility] Comment on above: Performed By: #### C BC, PT, PTT, CMP, MG, LIPID, HS TROP, A1C WTH eA ####[place] [id number] [place] RBC (Bld) [#/Vol] 3.55 10*6/uL Low 3.60-5.00 [facility] Comment on above: Performed By: #### C BC, PT, PTT, CMP, MG, LIPID, HS TROP, A1C WTH eA ####[place] [id number] [facility] WBC (Bld) [#/Vol] 8.3 10*3/uL Normal 3.8-11.6 [facility] Comment on above: Performed By: #### C BC, PT, PTT, CMP, MG, LIPID, HS TROP, A1C WTH eA ####[place] [id number] [facility] White Blood Count 8.3 [CFU]/mL Normal 3.8-11.6 [facility] Comment on above: Performed By: #### C BC, PT, PTT, CMP, MG, LIPID, HS TROP, A1C WTH eA ####[place] [id number] [facility] Comprehensive Metabolic Pane [facility] 10-31-2024 Albumin [Mass/Vol] 3.5 g/dL Normal 3.5-5.7 [facility] Comment on above: Order Comment: FASTI NG Y Performed By: #### C BC, PT, PTT, CMP, MG, LIPID, HS TROP, A1C WTH eA ####[address] [address] [facility] Albumin/Globulin [Mass ratio] 1.2 {ratio} Normal [facility] Comment on above: Order Comment: FASTI NG Y Performed By: #### C BC, PT, PTT, CMP, MG, LIPID, HS TROP, A1C WTH eA ####[place] [id number] [facility] ALP [Catalytic activity/Vol] 47 U/L Normal 34-104 [facility] Comment on above: Order Comment: FASTI NG Y Performed By: #### C BC, PT, PTT, CMP, MG, LIPID, HS TROP, A1C WTH eA ####[place] [id number] [facility] ALT [Catalytic activity/Vol] 6 U/L Low 7-52 [facility] Comment on above: Order Comment: FASTI NG Y Performed By: #### C BC, PT, PTT, CMP, MG, LIPID, HS TROP, A1C WTH eA ####[place] [id number] [facility] Anion gap [Moles/Vol] 11.4 mmol/L Normal 6.0-15.0 [facility] Comment on above: Order Comment: FASTI NG Y Performed By: #### C BC, PT, PTT, CMP, MG, LIPID, HS TROP, A1C WTH eA ####[place] [id number] [facility] AST [Catalytic activity/Vol] 17 U/L Normal 13-39 [facility] Comment on above: Order Comment: FASTI NG Y Performed By: #### C BC, PT, PTT, CMP, MG, LIPID, HS TROP, A1C WTH eA ####[place] [id number] [facility] Bilirubin [Mass/Vol] 0.4 mg/dL Normal 0.3-1.0 [facility] Comment on above: Order Comment: FASTI NG Y Performed By: #### C BC, PT, PTT, CMP, MG, LIPID, HS TROP, A1C WTH eA ####[place] [id number] [facility] Calcium [Mass/Vol] 8.9 mg/dL Normal 8.6-10.3 [facility] Comment on above: Order Comment: FASTI NG Y Performed By: #### C BC, PT, PTT, CMP, MG, LIPID, HS TROP, A1C WTH eA ####[place] [id number] [facility] Chloride [Moles/Vol] 107 mmol/L Normal 98-107 [facility] Comment on above: Order Comment: FASTI NG Y Performed By: #### C BC, PT, PTT, CMP, MG, LIPID, HS TROP, A1C WTH eA ####[place] [id number] [facility] CO2 [Moles/Vol] 22.8 mmol/L Normal 21.0-31.0 [facility] Comment on above: Order Comment: FASTI NG Y Performed By: #### C BC, PT, PTT, CMP, MG, LIPID, HS TROP, A1C WTH eA ####[place] [id number] Creatinine [Mass/Vol] 1.81 mg/dL High 0.60-1.20 [facility] Comment on above: Order Comment: FASTI NG Y Performed By: #### C BC, PT, PTT, CMP, MG, LIPID, HS TROP, A1C WTH eA ####[place] [id number] Creatinine Clr Calc Pharmacy 19.48 Normal [facility] Comment on above: Order Comment: FASTI NG Y Performed By: #### C BC, PT, PTT, CMP, MG, LIPID, HS TROP, A1C WTH eA ####[address] GFR/1.73 sq M.predicted MDRD (S/P/Bld) [Vol rate/Area] 27.428 mL/min/{1.73_m2} Normal [facility] Comment on above: Order Comment: FASTI NG Y Performed By: #### C BC, PT, PTT, CMP, MG, LIPID, HS TROP, A1C WTH eA ####[place] [id number] [place] [id number] [facility] Globulin (S) [Mass/Vol] 3.0 g/dL Normal [facility] Comment on above: Order Comment: FASTI NG Y Performed By: #### C BC, PT, PTT, CMP, MG, LIPID, HS TROP, A1C WTH eA ####[place] [id number] [facility] Glucose [Mass/Vol] 100 mg/dL Normal 70-100 [facility] Comment on above: Order Comment: FASTI NG Y Result Comment: [place] Glucose Reference Range is dependent on time and content of last meal. Glucose of more than 200 mg/dL in a nonstressed, ambulatory subject supports the diagnosis of Diabetes Mellitus. ADA recommended reference range Performed By: #### C BC, PT, PTT, CMP, MG, LIPID, HS TROP, A1C WTH eA ####[place] [id number] [facility] Potassium [Moles/Vol] 4.2 mmol/L Normal 3.5-5.1 [facility] Comment on above: Order Comment: FASTI NG Y Performed By: #### C BC, PT, PTT, CMP, MG, LIPID, HS TROP, A1C WTH eA ####[address] [address] [facility] Protein [Mass/Vol] 6.5 g/dL Normal 6.4-8.9 [facility] Comment on above: Order Comment: FASTI NG Y Performed By: #### C BC, PT, PTT, CMP, MG, LIPID, HS TROP, A1C WTH eA ####[place] [id number] [facility] Sodium [Moles/Vol] 137 mmol/L Normal 136-145 [facility] Comment on above: Order Comment: FASTI NG Y Performed By: #### C BC, PT, PTT, CMP, MG, LIPID, HS TROP, A1C WTH eA ####[place] [id number] [facility] Urea nitrogen [Mass/Vol] 34 mg/dL High 7-25 [facility] Comment on above: Order Comment: FASTI NG Y Performed By: #### C BC, PT, PTT, CMP, MG, LIPID, HS TROP, A1C WTH eA ####[address] [address] [facility] ECG 12 lead ECGon 10-31-2024 ECG 12 lead ECG [facility] [address] [place] [address] Electrocardiograph Report Signed Patient: Johanny Forbes MR#: [id number] : 1940 Acct:[id number] Age/Sex: 84 / F ADM Date: 10/30/24 Loc: Room: [address] [place] [address] Type: ADM IN Attending Dr: Cirilo Rascon MD Ordering Provider: Cirilo Rascon MD Date of Service: 10/31/24 ECG/ECG 12 lead ECG: NSTEMI Copies to: Test Reason : Blood Pressure : */* mmHG Vent. Rate : 65 BPM Atrial Rate : 65 BPM P-R Int : 164 ms QRS Dur : 112 ms QT Int : 480 ms P-R-T Axes : 3 -31 232 degrees QTcB Int : 499 ms Normal sinus rhythm with sinus arrhythmia Left axis deviation Incomplete left bundle branch block Left ventricular hypertrophy ( R in aVL , [place] product , Romhilt-Fairchild ) Prolonged QT Abnormal ECG Confirmed by Joan Boyd ([id number]) on 10/31/2024 2:55:16 PM Referred By: Electronically Signed By: Joan Boyd Transcribed By: MUS Signed By Joan Byod MD 5 1455 Normal [facility] Lipid Panelon 10-31-2024 Cholesterol [Mass/Vol] 182 mg/dL Normal 140-200 [facility] Comment on above: Order Comment: FASTI NG Y Result Comment: Chol less than 200 mg/dl low risk Chol 201-239 mg/dl borderline risk Chol 240 mg/dl and greater high risk Performed By: #### C BC, PT, PTT, CMP, MG, LIPID, HS TROP, A1C WT eA ####[place] [id number] Cholesterol in HDL [Mass/Vol] 31 mg/dL Normal 23-92 [facility] Comment on above: Order Comment: FASTI NG Y Result Comment: HDL CHOL ATP-III CLASSIFICATION Cardiovascular Risk HDL > or equal to 60 mg/dL LOW HDL < 40 mg/dL HIGH Performed By: #### C BC, PT, PTT, CMP, MG, LIPID, HS TROP, A1C WT eA ####[place] [address] [place] [id number] [facility] Cholesterol.total/Chol esterol in HDL [Mass ratio] 5.9 {ratio} Normal <5.0 [facility] Comment on above: Order Comment: FASTI NG Y Result Comment: PERF ORMED BY: [facility] [address] [place] [address] PATHOLOGIST PROTOTYPE ENGINEER MANAGER BRISA ESPINAL M.D. Performed By: #### C BC, PT, PTT, CMP, MG, LIPID, HS TROP, A1C WTH eA ####[place] [id number] LDL Cholesterol,Calculated 124 mg/dL High 0-100 [facility] Comment on above: Order Comment: FASTI NG Y Result Comment: LDL ATP III CLASSIFICATION LDL less than 100 mg/dL Optimal LDL 100-129 mg/dL Near or above optimal LDL 130-159 mg/dL Borderline high LDL 160-189 mg/dL High LDL greater than 189 mg/dL Very high Performed By: #### C BC, PT, PTT, CMP, MG, LIPID, HS TROP, A1C WTH eA ####[place] [id number] Triglyceride w/Reflex 134 mg/dL Normal 0-149 [facility] Comment on above: Order Comment: FASTI NG Y Result Comment: TRIG ATP III CLASSIFICATION TRIG less than 150 mg/dL Normal TRIG 150-199 mg/dL Borderline high TRIG 200-500 mg/dL High TRIG greater than 500 mg/dL Very high Standard traceable to the Center for Disease Conrtrol and Prevention (CDC) test method. Performed By: #### C BC, PT, PTT, CMP, MG, LIPID, HS TROP, A1C WTH eA ####[place] [id number] [place] [id number] [facility] VLDL CHOLESTEROL 26 mg/dL Normal [facility] Comment on above: Order Comment: FASTI NG Y Performed By: #### C BC, PT, PTT, CMP, MG, LIPID, HS TROP, A1C WTH eA ####[place] [id number] [place] [id number] [facility] Magnesiumon 10-31-2024 Magnesium [Mass/Vol] 2.0 mg/dL Normal 1.9-2.7 [facility] Comment on above: Order Comment: FASTI NG Y Performed By: #### C BC, PT, PTT, CMP, MG, LIPID, HS TROP, A1C WTH eA ####[place] [address] [place] NM sue perf SPECT rest stron 10-31-2024 NM sue perf SPECT rest str [facility] [address] [place] [address] Nuclear Medicine Report Signed Patient: Johanny Forbes MR#: [id number] : 1940 Acct:[id number] Age/Sex: 84 / F ADM Date: 10/30/24 Loc: Room: [address] [place] [address] Type: ADM IN Attending Dr: Cirilo Rascon MD Copies to: MD Joan Chris MD W Scott Sheldon, DO Ordering Provider: Iqra Jimenez DO Date of Service: 10/31/24 NM/NM sue perf SPECT rest str: elevated cardiac enzymes,dose ordered NUCLEAR MYOCARDIAL PERFUSION DATE OF PROCEDURE: 10/31/2024 PROCEDURE: The patient received a stress dose of Lexiscan and was then injected with 18.5 millicuries of Technetium 99M Sestamibi. For rest images the patient was injected with 6.3 millicuries of Technetium 99M Sestamibi. FINDINGS: The raw cine images were reviewed. The post stress and rest perfusion images were reviewed as well as the computer quantification.? There is a fixed inferior and inferoapical defect with mild reversibility. There is increased gut uptake which may be causing attenuation artifact. Cannot rule out ischemia. On the gated portion of the study, there was uniform thickening with an overall ejection fraction calculated at 50%.? TID score was within normal limits (1.14). NM/NM sue perf SPECT rest str IMPRESSION: 1. Abnormal MPI: There is a fixed inferior and inferoapical defect with mild reversibility. There is increased gut uptake which may be causing attenuation artifact. Cannot rule out ischemia. 2. Left ventricular function was preserved. Impression dictated by: Joan Boyd M.D. 10/31/2024 12:41 PM Dictation Location: [place] [address] Transcribed By: [facility] 10/31/24 1241 Dictated By: Joan Boyd MD 10/31/24 1230 Signed By: 10/31/24 1241 Normal [facility] Partial Thromboplastin Timeo n 10-31-2024 aPTT Coag (Bld) [Time] 33.1 s Normal 25.1-36.5 [facility] Comment on above: Result Comment: A he matocrit value greater than 55% may lead to inaccurate results in coagulation testing. Patients having hematocrit values >55% require a special collection tube for coagulation studies. Please contact the laboratory at [phone] for redraw instructions. PERFORMED BY: [facility] [address] [place] [address] PATHOLOGIST PROTOTYPE ENGINEER MANAGER BRISA ESPINAL M.D. Performed By: #### C BC, PT, PTT, CMP, MG, LIPID, HS TROP, A1C WTH eA ####[place] [id number] [place] [id number] [facility] Prothrombin Time INRon 10-31 INR Coag (PPP) [Relative time] 1.2 {INR} Normal [facility] Comment on above: Result Comment: INR Therapeutic [...] valves: 3 - 4.5 Performed By: #### C BC, PT, PTT, CMP, MG, LIPID, HS TROP, A1C WTH eA ####[place] [id number] [place] [id number] [facility] PT Coag (PPP) [Time] 13.9 s High 9.0-12.9 [facility] Comment on above: Result Comment: A he matocrit value greater than 55% may lead to inaccurate results in coagulation testing. Patients having hematocrit values >55% require a special collection tube for coagulation studies. Please contact the laboratory at [phone] for redraw instructions. Performed By: #### C BC, PT, PTT, CMP, MG, LIPID, HS TROP, A1C WTH eA ####[place] [address] [place] [id number] [place] Troponin I High Sensitivityo n 10-31-2024 Troponin I High Sensitivity 207 Off scale high 0-15 [facility] Comment on above: Result Comment: Crit ical Result : Called to and read back by: PAUL SOMERS at: 10/31/2024 08:04:40 by:[id number] The Troponin units of report have been changed to meet the Chest Pain Accreditation requirement, element EC5.M1l2. Troponin units are changed from pg/ml to ng/L. Also, the decimal is removed and results are in whole numbers. PERFORMED BY: [facility] [address] [place] [id number] PATHOLOGIST PROTOTYPE ENGINEER MANAGER BRISA ESPINAL M.D. Performed By: #### C BC, PT, PTT, CMP, MG, LIPID, HS TROP, A1C WTH eA ####[place] [address] [place] [address] [facility] Urine Cultureon 10-29-2024 Bacteria identified Cx Nom (U) <9,000 colonies/ml mixed bacterial skin contaminants 2 Days PERFORMED BY: [facility] [address] [place] [id number] PATHOLOGIST PROTOTYPE ENGINEER MANAGER BRISA ESPINAL M.D. Normal [facility] Comment on above: Performed By: #### C UU ####[place] [id number] [facility] Urine cultureOrdered By: Swapnil Hamilton on 10-29-2024 Bacteria identified Cx Nom (U) 2 Days [facility] Laboratory - Chemistry and C hemistry - challengeOrdered By: Casi Holloway on 10-26-2024 Bilirubin Ql (U) Negative [facility] Glucose (U) [Mass/Vol] [facility] Ketones Ql (U) Negative [facility] pH (U) 6.0 [pH] [facility] Specific gravity (U) [Rel density] 1.025 [facility] Urobilinogen (U) [Mass/Vol] 0.2 mg/dL [facility] Laboratory - Specimen inform ationOrdered By: Casi Holloway on 10-26-2024 Appearance (U) cloudy [facility] Color (U) Red [facility] Laboratory - UrinalysisOrder ed By: Casi Holloway on 10-26-2024 Leukocyte esterase Test strip Ql (U) small [facility] Nitrite Ql (U) Negative [facility] Protein Ql (U) >=300 [facility] No Panel InformationOrdered By: Casi Holloway on 10-26-2024 Urine Occult Blood large [facility] Urine Cultureon 10-26-2024 Bacteria identified Cx Nom (U) <9,000 colonies/ml mixed bacterial skin contaminants 2 Days PERFORMED BY: [facility] [address] [place] [address] PATHOLOGIST PROTOTYPE ENGINEER MANAGER BRISA Murphy [facility] Comment on above: Performed By: #### C UU ####[facility] [id number] [place] [address] [facility] Urine cultureOrdered By: Loree Holloway on 10-26-2024 Bacteria identified Cx Nom (U) 2 Days [facility] No Panel Informationon 10-07 HAYLEE Raines 10/07/2024 [...] discussed. Consent was given by the patient. [facility] [employer] [facility] [employer] CTA ABDOMEN PELVIS W CONTRAS Ton 09-25-2024 [...] by: Kayleen Muñoz MD 09/25/24 Final result [facility] Radiology, Radiologi MD aliza - 09/25/2024 [...] by: Kayleen Muñoz MD 09/25/24 Final result [facility] CTA ABDOMEN PELVIS W CONTRAST EXAMINATION: [...] Kayleen Muñoz MD 09/25/24 Final result Normal [facility] Radiology Study observation (narrative) [facility] [employer] CTA ABDOMEN PELVIS W CONTRAS TOrdered By: Radiologist Radiology on 09-25-2024 [facility] [employer] Work Phone: CTA Abdominal vessels and Pe [...] (2018): 2-77. [facility]iol 2013;10:789-794. [facility] RIS CONSOLIDATED EXAMINATION: CTA OF THE ABDOMEN [...] or lymphadenopathy. The bilateral hips appear stable. [facility] Kayleen Ratliff MD - 09/25/2024 EXAMINATION: CTA OF THE [...] (2018): 2-77. [facility]iol 2013;10:789-794. [facility] CTA Abdominal vessels and Pe lvis vessels W contrast IVOrdered By: Kayleen Muñoz on 09-25-2024 [facility] Work Phone: CTA Abdominal vessels and Pe lvis vessels W contrast Michael 09-24-2024 Radiology Study observation (narrative) [facility] Creatinineon 09-24-2024 Creatinine [Mass/Vol] 1.8 mg/dL High 0.50 - 0.90 mg/dL [facility] Est, Glom Filt Rate 28 Low - PINF [facility] Comment on above: These results [...] w/GFRon Creatinine [Mass/Vol] 1.8 mg/dL High 0.50-0.90 [facility] Comment on above: Performed By: #### C REG #### [facility] [address] [place] [address] Livestock Exhibitor: Tenzin Chaudhry MD GFR/1.73 sq M.predicted among non-blacks MDRD (S/P/Bld) [Vol rate/Area] 28 mL/min/{1.73_m2} Low >60 [facility] Comment on above: Result Comment: These results [...] secretion. Performed By: #### C REG #### [facility] [address] [place] [address] Livestock Exhibitor: Tenzin Chaudhry MD PT CREATININE W/GFRon 09-14 Creatinine [Mass/Vol] 1.8 mg/dL High 0.50 - 0.90 mg/dL [facility] Interpretation and review of laboratory results Abnormal [facility] 28 Low - PINF [facility] Comment on above: These results are [...] tubular secretion. Original Ordering Provider[facility] lower arterial comp lete [facility]ologic [facility] By: Nicholas Ewing on 09-24-2024 Left JESSE 1.12 [employer] Work Phone: Left arm BP 181 mmHg [employer] Work Phone: Left dorsalis pedis BP 203 mmHg Lai n [employer] Work Phone: Left posterior tibial 196 mmHg [employer] Work Phone: Left TBI 0.76 [employer] Work Phone: Left toe pressure 137 mmHg [employer] Work Phone: Right JESSE 1.08 [employer] Work Phone: Right arm BP 180 mmHg [employer] Work Phone: Right dorsalis pedis BP 179 mmHg [employer] Work Phone: Right posterior tibial 196 mmHg Lai n [employer] Work Phone: Right TBI 0.65 [employer] Work Phone: Right toe pressure 118 mmHg [facility] [employer] Work Phone: [employer] Work Phone: Vascular lower arterial comp lete [...] dorsalis pedis artery has multiphasic (normal) waveforms. [facility] CV CPACS Radiology Study observation (narrative) Partnered Abdominal Aorta for nimisha alvarado 07-09-2024 Preliminary Cardiolo gy Report [address], [address] [place], [place] [id number] Preliminary Vascular Lab Report VAS US ABDOMINAL AORTA ANEURYSM AAA SCREENING Patient Name: JOHANNY Shrestha Physician: [id number] ANDREI Reza [facility] Study Date: 07/09/2024 Ordering Provider: [id number] ELOISE GALICIA MRN/PID: [id number] Fellow: Technologist: OMAR Burleson RDCST Date of : 1940 Technologist 2: Gender: F Admission Status: Outpatient Location Performed: [facility] Diagnosis/ICD: Abdominal aortic aneurysm, without rupture, unspecified-I71.40 Indication: HTN, CHF, Discoloration of Let Foot CPT Codes: 01282 Ultrasound, abdominal aorta, real time with image [...] abrams MD - 07/09/2024 Preliminary Cardiology Report [address], [place] [id number] Preliminary Vascular Lab Report [facility] US ABDOMINAL AORTA ANEURYSM AAA SCREENING Patient Name: JOHANNY Shrestha Physician: [id number] ANDREI Reza MD [facility] Study Date: 07/09/2024 Ordering Provider: [id number] ELOISE GALICIA MRN/PID: [id number] Fellow: Technologist: [place] Mckinney RDCS, RVT Date of : 1940 Technologist 2: Gender: F Admission Status: Outpatient Location Performed: [facility] Diagnosis/ICD: Abdominal aortic aneurysm, without rupture, unspecified-I71.40 Indication: HTN, CHF, Discoloration of Let Foot CPT Codes: 03482 Ultrasound, abdominal aorta, real time with image [...] RVT on 07/09/2024 at 2:08:24 PM Final [facility] Radiology Study observation (narrative) [facility] US Abdominal Aorta for nimisha Willisered By: Radiologist Radiology on 07-09-2024 [facility] Work Phone: [facility] US ABDOMINAL AORTA ANEU RYSM AAA SCREENINGon 07-09-2024 VAS US ABDOMINAL AORTA ANEURYSM AAA SCREENING [address], [address] [place] [address] Vascular Lab Report [facility] US ABDOMINAL AORTA ANEURYSM AAA SCREENING Patient Name: JOHANNY FORBES Reading Physician: [id number] Holland Byrne MD, [facility] Study Date: 07/09/2024 Ordering Provider: [id number] ELOISE GALICIA MRN/PID: [id number] Fellow: Technologist: [place] Mckinney RDCS, RVT Date of /Age: 1 1940 / years Technologist 2: Gender: F Admission Status: Outpatient Location Performed: [facility] Diagnosis/ICD: Abdominal aortic aneurysm, without rupture, unspecified-I71.40 Indication: HTN, CHF, Discoloration of Let Foot CPT Codes: 74221 Ultrasound, abdominal aorta, real time with image [...] Proximal 1.39 cm 1.18 cm 51.00 cm/s [id number] Holland Byrne MD, FACC Final [facility] XR Knee - right 1 or 2 [...] right knee. No acute bony process noted. [facility] Radiology Study observation (narrative) [facility] US ankle/arm indiceson 06-05 US ankle/arm indices [facility] [place] [address] Ultrasound Report Signed Patient: Johanny Forbes MR#: [id number] : 1940 Acct:[id number] Age/Sex: 84 / F ADM Date: 06/04/24 Loc: ER Room: Type: [facility] ER Attending Dr: Ordering Provider: [...] Mehrdad Leonard MD06/05/2024 8:38 AM Dictation Location: [place] [address] Tech: Marcia Olivaresgertrudis Transcribed By: GABRIEL 06/05/24837 Dictated By: Mehrdad Leonard MD 06/05/24836 Signed By: 06/05/24837 Normal [facility] Basic Metabolic Panel 05-17 Anion gap [Moles/Vol] 12.2 mmol/L Normal 6.0-15.0 [facility] Comment on above: Performed By: #### C MICKIE, BMP ####[place] [address] [place] [address] [facility] Calcium [Mass/Vol] 9.8 mg/dL Normal 8.6-10.3 [facility] Comment on above: Performed By: #### C MICKIE, BMP ####[place] [address] [place] [address] [facility] Chloride [Moles/Vol] 104 mmol/L Normal 98-107 [facility] Comment on above: Performed By: #### C MICKIE, BMP ####[facility] [place] [address] [facility] CO2 [Moles/Vol] 24.1 mmol/L Normal 21.0-31.0 [facility] Comment on above: Performed By: #### C MICKIE, BMP ####[place] [address] [place] [address] [facility] Creatinine [Mass/Vol] 1.61 mg/dL High 0.60-1.20 [facility] Comment on above: Performed By: #### C MICKIE, BMP ####[place] [address] [place] [id number] [facility] Creatinine Clr Calc Pharmacy 24.01 Normal [facility] Comment on above: Result Comment: PERF ORMED BY: [facility] [address] [place] [address] PATHOLOGIST PROTOTYPE ENGINEER MANAGER ANKUSH FARMER M.D. Performed By: #### C BC, BMP ####[place] [address] [address] Estimated GFR 31.566 mL/Min Normal [facility] Comment on above: Performed By: #### C BC, BMP ####[address] Glucose [Mass/Vol] 131 mg/dL High 70-100 [facility] Comment on above: Result Comment: [place] Glucose Reference Range is dependent on time and content of last meal. Glucose of more than 200 mg/dL in a nonstressed, ambulatory subject supports the diagnosis of Diabetes Mellitus. ADA recommended reference range Performed By: #### C BC, BMP ####[address] Potassium [Moles/Vol] 4.3 mmol/L Normal 3.5-5.1 [facility] Comment on above: Performed By: #### C BC, BMP ####[address] Sodium [Moles/Vol] 136 mmol/L Normal 136-145 [facility] Comment on above: Performed By: #### C BC, BMP ####[address] Urea nitrogen [Mass/Vol] 32 mg/dL High 7-25 [facility] Comment on above: Performed By: #### C BC, BMP ####[place] [id number] [facility] Basophils Auto (Bld) [#/Vol] Ordered By: Scott Ojeda on 06-04-2024 Basophils (Bld) [#/Vol] Automated basophil count 0.0-0.2 [facility] Basophils/100 WBC Auto (Bld) Ordered By: Scott Ojeda on 06-04-2024 Basophils/100 WBC (Bld) Automated basophil % . [facility] Calcium [Mass/volume] in Ser um or PlasmaOrdered By: Scott Ojeda on 06-04-2024 Calcium [Mass/Vol] Calcium [Mass/volume ] in Serum or Plasma 8.6-10.3 [facility] Carbon dioxide, total [Moles /volume] in Serum or PlasmaOrdered By: Scott Ojeda on 06-04-2024 CO2 [Moles/Vol] Carbon dioxide, tota l [Moles/volume] in Serum or Plasma 21.0-31.0 [facility] Chloride [Moles/volume] in S gerardo or PlasmaOrdered By: Scott Ojeda on 06-04-2024 Chloride [Moles/Vol] Chloride [Moles/vol ume] in Serum or Plasma 98-107 [facility] Coagulation Profileon 2024 aPTT Coag (Bld) [Time] 36.0 s Normal 25.1-36.5 [facility] Comment on above: Order Comment: REDRA W Quantity not sufficient. Please resubmit. Result Comment: A he matocrit value greater than 55% may lead to inaccurate results in coagulation testing. Patients having hematocrit values >55% require a special collection tube for coagulation studies. Please contact the laboratory at [phone] for redraw instructions. PERFORMED BY: [place] [address] PATHOLOGIST PROTOTYPE ENGINEER MANAGER ANKUSH FARMER M.D. Performed By: #### P P #### [address] INR Coag (PPP) [Relative time] 1.3 {INR} Normal [facility] Comment on above: Order Comment: [...] 4.5 Performed By: #### P P #### [address] PT Coag (PPP) [Time] 14.2 s High 9.0-12.9 [facility] Comment on above: Order Comment: REDRA W Quantity not sufficient. Please resubmit. Result Comment: A he matocrit value greater than 55% may lead to inaccurate results in coagulation testing. Patients having hematocrit values >55% require a special collection tube for coagulation studies. Please contact the laboratory at [phone] for redraw instructions. Performed By: #### P P #### [address] Complete Blood Count Auto Di ffon 06-04-2024 Basophils (Bld) [#/Vol] 0.1 10*3/uL Normal 0.0-0.2 [facility] Comment on above: Result Comment: PERF ORMED BY: [place] [address] PATHOLOGIST PROTOTYPE ENGINEER MANAGER ANKUSH FARMER M.D. Performed By: #### C BC, BMP ####[address] Basophils/100 WBC (Bld) 0.7 % Normal . [facility] Comment on above: Performed By: #### C BC, BMP ####[address] Eosinophils (Bld) [#/Vol] 0.7 10*3/uL High 0.0-0.45 [facility] Comment on above: Performed By: #### C BC, BMP ####[address] Eosinophils/100 WBC (Bld) 8.2 % Normal . [facility] Comment on above: Performed By: #### C BC, BMP ####[address] Erythrocyte distribution width (RBC) [Ratio] 14.1 % Normal 11.9-15.3 [facility] Comment on above: Performed By: #### C MICKIE, BMP ####[address] Hematocrit (Bld) [Volume fraction] 35.3 % Normal 34.0-46.4 [facility] Comment on above: Performed By: #### C MICKIE, BMP ####[address] Hemoglobin (Bld) [Mass/Vol] 12.2 g/dL Normal 11.8-15.4 [facility] Comment on above: Performed By: #### C MICKIE, BMP ####[address] Lymphocytes (Bld) [#/Vol] 2.7 10*3/uL Normal 1.00-4.8 [facility] Comment on above: Performed By: #### C MICKIE, BMP ####[address] Lymphocytes/100 WBC (Bld) 31.4 % Normal . [facility] Comment on above: Performed By: #### C MICKIE, BMP ####[address] MCH (RBC) [Entitic mass] 31.3 pg Normal 24.7-34.3 [facility] Comment on above: Performed By: #### C MICKIE, BMP ####[address] MCV (RBC) [Entitic vol] 90.2 fL Normal 80-100 [facility] Comment on above: Performed By: #### C MICKIE, BMP ####[address] Mean Corpuscular HGB Conc 34.7 g/dL Normal 32.0-35.0 [facility] Comment on above: Performed By: #### C BC, BMP ####[address] Monocytes (Bld) [#/Vol] 0.4 10*3/uL Normal 0.0-0.8 [facility] Comment on above: Performed By: #### C BC, BMP ####[address] Monocytes/100 WBC (Bld) 18.78 % Normal 0.00-20.00 [facility] Comment on above: Performed By: #### C BC, BMP ####[address] Monocytes/100 WBC (Bld) 4.4 % Normal . [facility] Comment on above: Performed By: #### C MICKIE, BMP ####[address] Neutrophils (Bld) [#/Vol] 4.7 10*3/uL Normal 1.8-7.7 [facility] Comment on above: Performed By: #### C MICKIE, BMP ####[address] Neutrophils/100 WBC (Bld) 55.3 % Normal . [facility] Comment on above: Performed By: #### C MICKIE, BMP ####[address] NRBC% 0.1 /100{WBC} Normal 0-0.5 [facility] Comment on above: Performed By: #### C MICKIE, BMP ####[address] Platelet mean volume (Bld) [Entitic vol] 8.2 fL Normal 6.3-10.7 [facility] Comment on above: Performed By: #### C BC, BMP ####[address] Platelets (Bld) [#/Vol] 227 10*3/uL Normal 150-450 [facility] Comment on above: Performed By: #### C BC, BMP ####[address] RBC (Bld) [#/Vol] 3.92 10*6/uL Normal 3.60-5.00 [facility] Comment on above: Performed By: #### C MICKIE, BMP ####[facility] [id number] [place] [id number] [facility] WBC (Bld) [#/Vol] 8.5 10*3/uL Normal 3.8-11.6 [facility] Comment on above: Performed By: #### C MICKIE, BMP ####[facility] [address] [place] [id number] [facility] Creatinine [Mass/volume] in Serum or PlasmaOrdered By: Scott Ojeda on 06-04-2024 Creatinine [Mass/Vol] Creatinine [Mass/v olume] in Serum or Plasma High 0.60-1.20 [facility] Eosinophils Auto (Bld) [#/Vo l]Ordered By: Scott Ojeda on 06-04-2024 Eosinophils (Bld) [#/Vol] Automated eosinophil count High 0.0-0.45 [facility] Eosinophils/100 WBC Auto (Bl d)Ordered By: Scott Ojeda on 06-04-2024 Eosinophils/100 WBC (Bld) Automated eosinophil % . [facility] Erythrocyte distribution wid th Auto (RBC) [Ratio]Ordered By: Scott Ojeda on 06-04-2024 Erythrocyte distribution width (RBC) [Ratio] Erythrocyte distribution width [Ratio] by Automated count 11.9-15.3 [facility] Glucose [Mass/volume] in Ser um or PlasmaOrdered By: Scott Ojeda on 06-04-2024 Glucose [Mass/Vol] Glucose [Mass/volume ] in Serum or Plasma High 70-100 [facility] Comment on above: ADA recommended refe rence rangeRandom Glucose Reference Range is dependent on time and content of last meal. Glucose of more than 200 mg/dL in a nonstressed, ambulatory subject supports the diagnosis of Diabetes Mellitus. Hematocrit Auto (Bld) [Volum e fraction]Ordered By: Scott Ojeda on 06-04-2024 Hematocrit (Bld) [Volume fraction] Hematocrit [Volume Fraction] of Blood by Automated count 34.0-46.4 [facility] Hemoglobin [Mass/volume] in BloodOrdered By: Scott Ojeda on 06-04-2024 Hemoglobin (Bld) [Mass/Vol] Hemoglobin [Mass/volume] in Blood 11.8-15.4 [facility] INR in Platelet poor plasma by Coagulation assayOrdered By: Scott Ojeda on 06-04-2024 INR Coag (PPP) [Relative time] INR in Platelet poor plasma by Coagulation assay [facility] Comment on above: INR Therapeutic Rang e [...] erythrocytes in Blood by Automated coun 3.8-11.6 [facility] Lymphocytes Auto (Bld) [#/Vo l]Ordered By: Scott Ojeda on 06-04-2024 Lymphocytes (Bld) [#/Vol] Lymphocytes [#/volume] in Blood by Automated count 1.00-4.8 [facility] Lymphocytes/100 WBC Auto (Bl d)Ordered By: Scott Ojeda on 06-04-2024 Lymphocytes/100 WBC (Bld) Lymphocytes/100 leukocytes in Blood by Automated count . [facility] MCH Auto (RBC) [Entitic mass ]Ordered By: Scott Ojeda on 06-04-2024 MCH (RBC) [Entitic mass] MCH [Entitic mass] by Automated count 24.7-34.3 [facility] MCHC Auto (RBC) [Mass/Vol]Or dered By: Scott Ojeda on 06-04-2024 MCHC (RBC) [Mass/Vol] MCHC [Mass/volume] by Automated count 32.0-35.0 [facility] MCV Auto (RBC) [Entitic vol] Ordered By: Scott Ojead on 06-04-2024 MCV (RBC) [Entitic vol] MCV [Entitic volume] by Automated count 80-100 [facility] Monocyte distribution width [Entitic volume] in Blood by AutomatedOrdered By: Scott Ojeda on 06-04-2024 Monocyte distribution width Auto (Bld) [Entitic vol] Monocyte distribution width [Entitic volume] in Blood by Automated 0.00-20.00 [facility] Monocytes Auto (Bld) [#/Vol] Ordered By: Scott Ojeda on 06-04-2024 Monocytes (Bld) [#/Vol] Automated blood monocyte count 0.0-0.8 [facility] Monocytes/100 WBC Auto (Bld) Ordered By: Scott Ojeda on 06-04-2024 Monocytes/100 WBC (Bld) Automated monocyte % . [facility] Neutrophils Auto (Bld) [#/Vo l]Ordered By: Scott Ojeda on 06-04-2024 Neutrophils (Bld) [#/Vol] Neutrophils [#/volume] in Blood by Automated count 1.8-7.7 [facility] Neutrophils/100 WBC Auto (Bl d)Ordered By: Scott Ojeda on 06-04-2024 Neutrophils/100 WBC (Bld) Automated neutrophil % . [facility] No Panel InformationOrdered By: Scott Ojeda on 06-04-2024 Estimated GFR (CKD-EPI) 31.566 mL/Min [facility] Pharmacy Creatinine Clearance (Chem 24.01 [facility] Nucleated erythrocytes [Pres ence] in Blood by Automated countOrdered By: Scott Ojeda on 06-04-2024 Nucleated RBC Auto Ql (Bld) Nucleated erythrocytes [Presence] in Blood by Automated count 0-0.5 [facility] Platelet mean volume Auto (B ld) [Entitic vol]Ordered By: Scott Ojeda on 06-04-2024 Platelet mean volume (Bld) [Entitic vol] Platelet mean volume [Entitic volume] in Blood by Automated count 6.3-10.7 [facility] Platelets Auto (Bld) [#/Vol] Ordered By: Scott Ojeda on 06-04-2024 Platelets (Bld) [#/Vol] Platelets [#/volume] in Blood by Automated count 150-450 [facility] Potassium [Moles/volume] in Serum or PlasmaOrdered By: Scott Ojeda on 06-04-2024 Potassium [Moles/Vol] Potassium [Moles/v olume] in Serum or Plasma 3.5-5.1 [facility] Prothrombin time (PT)Ordered By: Scott Ojeda on 06-04-2024 PT Coag (PPP) [Time] Prothrombin time (PT) High 9.0- 12.9 [facility] Comment on above: A hematocrit value g reater than 55% may lead to inaccurate results in coagulation testing. Patients having hematocrit values >55% require a special collection tube for coagulation studies. Please contact the laboratory at [phone] for redraw instructions. RBC Auto (Bld) [#/Vol]Ordere d By: Scott Ojeda on 06-04-2024 RBC (Bld) [#/Vol] Erythrocytes [#/volu me] in Blood by Automated count 3.60-5.00 [facility] Serum or plasma anion gap de terminationOrdered By: Scott Ojeda on 06-04-2024 Anion gap [Moles/Vol] Serum or plasma an ion gap determination 6.0-15.0 [facility] Sodium [Moles/volume] in Ser um or PlasmaOrdered By: Scott Ojeda on 06-04-2024 Sodium [Moles/Vol] Sodium [Moles/volume ] in Serum or Plasma 136-145 [facility] Urea nitrogen [Mass/volume] in Serum or PlasmaOrdered By: Scott Ojeda on 06-04-2024 Urea nitrogen [Mass/Vol] Urea nitrogen [Mass/volume] in Serum or Plasma High 7-25 [facility] WBC Auto (Bld) [#/Vol]Ordere d By: Scott Ojeda on 06-04-2024 WBC (Bld) [#/Vol] Leukocytes [#/volume ] in Blood by Automated count 3.8-11.6 [facility] aPTT in Platelet poor plasma by Coagulation assayOrdered By: Scott Ojeda on 06-04-2024 aPTT Coag (PPP) [Time] Activated partial thromboplastin time (aPTT) in platelet poor plasma by coagulation a 25.1-36.5 [facility] Comment on above: A hematocrit value g reater than 55% may lead to inaccurate results in coagulation testing. Patients having hematocrit values >55% require a special collection tube for coagulation studies. Please contact the laboratory at [phone] for redraw instructions. ALL BASIC METABOLIC PANELon 05-29-2024 Anion gap [Moles/Vol] 12.3 mmol/L [facility] Calcium [Mass/Vol] 9 mg/dL 8.5 - 10. 1 mg/dL [facility] Chloride [Moles/Vol] 104 mmol/L 98 - 10 7 mmol/L [facility] CO2 [Moles/Vol] 26.7 mmol/L 21.0 - 32.0 mmol/L [facility] Creatinine [Mass/Vol] 2.11 mg/dL High 0.55 - 1.02 mg/dL [facility] GFR/1.73 sq M.predicted CKD-EPI (S/P/Bld) [Vol rate/Area] 27 Low >=60 mL/min/1.7 3m 2 [facility] Glucose [Mass/Vol] 287 mg/dL High 74 - 106 mg/dL [facility] Interpretation and review of laboratory results Abnormal [facility] Potassium [Moles/Vol] 5 mmol/L 3.5 - 5.1 mmol/L [facility] Sodium [Moles/Vol] 138 mmol/L 136 - 145 mmol/L [facility] TBH EGFR-NON AF SYRIAN 22 Low >=60 mL/min/1.7 3m 2 [facility] Urea nitrogen [Mass/Vol] 46 mg/dL High 7.0 - 18.0 mg/dL [facility] Urea nitrogen/Creatinine [Mass ratio] 21.8 mg/mg [facility] echo limitedon [facility] echo limited [facility] [place] [address] Echocardiogram Signed Patient: Johanny Forbes MR#: [id number] : 1940 Acct:[id number] Age/Sex: 84 / F ADM Date: 05/19/24 Loc: Room: Type: [facility] Attending Dr: Eloise Galicia MD Ordering Provider: Eloise Galicia MD Date of Service: 05/19/24/ [facility] echo limited: HX: OF MN, CHF Copies to: MD Esther Simpson MD Ordering Physician: Eloise Galicia Height: 63 in Weight: 142 lb Performed By: Cecile Beckford [facility] BSA: 1.7 m2 BP: 126/60 mmHg HR: 56 Reason For Study: rule out thrombus.HX: of MN, CHF History: Takotsubo Syndrome. DM. HTN. Aflutter. HLD. CKD. CAD. Abdominal Aortic Aneurysm. CVA. MN. Family history of CAD. Interpretation Summary The [...] Esther Hagan MD 05/19/24 1701 Normal [facility] E[facility] echo transthoracicon [facility] echo transthoracic [facility] [place] [address] Echocardiogram Signed Patient: Johanny Forbes MR#: [id number] : 1940 Acct:[id number] Age/Sex: 83 / F ADM Date: 04/02/24 Loc: Room: [address] [place] [address] Type: ADM IN Attending Dr: Gordo Fagan MD Ordering Provider: Gordo Fagan MD Date of Service: 04/03/24 [facility] echo transthoracic: ACS, NSTEMI Copies to: Holland Byrne MD, [facility] Gordo Fagan MD Height: 63 in [...] 04/04/24 0901 Signed By: Holland Byrne MD, FACC 04/04/24 1051 [facility] Anti-Xa UF Heparinon 024 Anti-Xa UF Heparin 0.69 [IU]/mL Normal 0.30-0.70 [facility] Comment on above: Order Comment: DRAW AT 0645 Result Comment: Use the aPTT protocol when triglycerides are > 800 mg/dL, total bilirubin is > 20 mg/dL and/or patient has received a DOAC, Fondaparinux or LMWH within 72 hours AND baseline anti-Xa level is > 0.7 units/mL PERFORMED BY: [place] [address] PATHOLOGIST PROTOTYPE ENGINEER MANAGER ANKUSH FARMER M.D. Performed By: #### U FHEP ####[address] Basic Metabolic Panelon 03-16 Anion gap [Moles/Vol] 11.4 mmol/L Normal 6.0-15.0 [facility] Comment on above: Performed By: #### L IPID, TSH3, CBC, HS TROP, BMP, MG #### [address] Calcium [Mass/Vol] 8.5 mg/dL Low 8.6-10.3 [facility] Comment on above: Performed By: #### L IPID, TSH3, CBC, HS TROP, BMP, MG #### [address] Chloride [Moles/Vol] 108 mmol/L High 98-107 [facility] Comment on above: Performed By: #### L IPID, TSH3, CBC, HS TROP, BMP, MG #### [address] CO2 [Moles/Vol] 23.8 mmol/L Normal 21.0-31.0 [facility] Comment on above: Performed By: #### L IPID, TSH3, CBC, HS TROP, BMP, MG #### [address] Creatinine [Mass/Vol] 1.44 mg/dL High 0.60-1.20 [facility] Comment on above: Performed By: #### L IPID, TSH3, CBC, HS TROP, BMP, MG #### [facility] [address] [place] [address] [place] Creatinine Clr Calc Pharmacy 27.31 Normal [facility] Comment on above: Performed By: #### L IPID, TSH3, CBC, HS TROP, BMP, MG #### [facility] [address] [place] [address] [place] Estimated GFR 36.314 mL/Min Normal [facility] Comment on above: Performed By: #### L IPID, TSH3, CBC, HS TROP, BMP, MG #### [facility] [address] Glucose [Mass/Vol] 180 mg/dL High 70-100 [facility] Comment on above: Result Comment: [facility] Glucose Reference Range is dependent on time and content of last meal. Glucose of more than 200 mg/dL in a nonstressed, ambulatory subject supports the diagnosis of Diabetes Mellitus. ADA recommended reference range Performed By: #### L IPID, TSH3, CBC, HS TROP, BMP, MG #### [facility] [address] Potassium [Moles/Vol] 4.2 mmol/L Normal 3.5-5.1 [facility] Comment on above: Performed By: #### L IPID, TSH3, CBC, HS TROP, BMP, MG #### [facility] [address] [place] [address] [place] Sodium [Moles/Vol] 139 mmol/L Normal 136-145 [facility] Comment on above: Performed By: #### L IPID, TSH3, CBC, HS TROP, BMP, MG #### [facility] [address] [place] [address] [place] Urea nitrogen [Mass/Vol] 25 mg/dL Normal 7-25 [facility] Comment on above: Performed By: #### L IPID, TSH3, CBC, HS TROP, BMP, MG #### [facility] [address] [place] [address] [place] Basophils Auto (Bld) [#/Vol] Ordered By: Yelitza Brock on 04-03-2024 Basophils (Bld) [#/Vol] Automated basophil count 0.0-0.2 [facility] Basophils/100 WBC Auto (Bld) Ordered By: Yelitza Brock on 04-03-2024 Basophils/100 WBC (Bld) Automated basophil % . [facility] Calcium [Mass/volume] in Ser um or PlasmaOrdered By: Yelitza Brock on 04-03-2024 Calcium [Mass/Vol] Calcium [Mass/volume ] in Serum or Plasma Low 8.6-10.3 [facility] Carbon dioxide, total [Moles /volume] in Serum or PlasmaOrdered By: Yelitza Brock on 04-03-2024 CO2 [Moles/Vol] Carbon dioxide, tota l [Moles/volume] in Serum or Plasma 21.0-31.0 [facility] Chloride [Moles/volume] in S gerardo or PlasmaOrdered By: Yelizta Brock on 04-03-2024 Chloride [Moles/Vol] Chloride [Moles/vol ume] in Serum or Plasma High 98-107 [facility] Cholesterol [Mass/volume] in Serum or PlasmaOrdered By: Yelitza Brock on 04-03-2024 Cholesterol [Mass/Vol] Cholesterol [Mass /volume] in Serum or Plasma High 140-200 [facility] Comment on above: Chol less than 200 m g/dl low riskChol 201-239 mg/dl borderline riskChol 240 mg/dl and greater high risk Cholesterol in HDL [Mass/vol ume] in Serum or PlasmaOrdered By: Yelitza Brock on 04-03-2024 Cholesterol in HDL [Mass/Vol] Serum or plasma high density lipoprotein (HDL) cholesterol measurement 23-92 [facility] Comment on above: HDL CHOL ATP-III CLA SSIFICATION Cardiovascular RiskHDL > or equal to 60 mg/dL LOWHDL < 40 mg/dL HIGH Cholesterol in LDL Calc [Mas s/Vol]Ordered By: Yelitza Brock on 04-03-2024 Cholesterol in LDL [Mass/Vol] Cholesterol in LDL [Mass/volume] in Serum or Plasma by calculation High 0-100 [facility] Comment on above: LDL ATP III CLASSIFI CATIONLDL less than 100 mg/dL OptimalLDL 100-129 mg/dL Near or above optimalLDL 130-159 mg/dL Borderline highLDL 160-189 mg/dL HighLDL greater than 189 mg/dL Very high Cholesterol in VLDL Calc [Ma ss/Vol]Ordered By: Yelitza Brock on 04-03-2024 Cholesterol in VLDL [Mass/Vol] Cholesterol in VLDL [Mass/volume] in Serum or Plasma by calculation [facility] Complete Blood Count Auto Di ffon 04-03-2024 Basophils (Bld) [#/Vol] 0.1 10*3/uL Normal 0.0-0.2 [facility] Comment on above: Result Comment: PERF ORMED BY: [place] [address] PATHOLOGIST PROTOTYPE ENGINEER MANAGER ANKUSH FARMER M.D. Performed By: #### L IPID, TSH3, CBC, HS TROP, BMP, MG #### [facility] [address] [place] [address] Basophils/100 WBC (Bld) 0.7 % Normal . [facility] Comment on above: Performed By: #### L IPID, TSH3, CBC, HS TROP, BMP, MG #### [address] Eosinophils (Bld) [#/Vol] 0.6 10*3/uL High 0.0-0.45 [facility] Comment on above: Performed By: #### L IPID, TSH3, CBC, HS TROP, BMP, MG #### [place] [address] [place] Eosinophils/100 WBC (Bld) 6.3 % Normal . [facility] Comment on above: Performed By: #### L IPID, TSH3, CBC, HS TROP, BMP, MG #### [address] Erythrocyte distribution width (RBC) [Ratio] 14.0 % Normal 11.9-15.3 [facility] Comment on above: Performed By: #### L IPID, TSH3, CBC, HS TROP, BMP, MG #### [place] [id number] [place] Hematocrit (Bld) [Volume fraction] 32.1 % Low 34.0-46.4 [facility] Comment on above: Performed By: #### L IPID, TSH3, CBC, HS TROP, BMP, MG #### [address] Hemoglobin (Bld) [Mass/Vol] 10.9 g/dL Low 11.8-15.4 [facility] Comment on above: Performed By: #### L IPID, TSH3, CBC, HS TROP, BMP, MG #### [address] Lymphocytes (Bld) [#/Vol] 3.5 10*3/uL Normal 1.00-4.8 [facility] Comment on above: Performed By: #### L IPID, TSH3, CBC, HS TROP, BMP, MG #### [address] Lymphocytes/100 WBC (Bld) 36.7 % Normal . [facility] Comment on above: Performed By: #### L IPID, TSH3, CBC, HS TROP, BMP, MG #### [address] MCH (RBC) [Entitic mass] 30.3 pg Normal 24.7-34.3 [facility] Comment on above: Performed By: #### L IPID, TSH3, CBC, HS TROP, BMP, MG #### [address] MCV (RBC) [Entitic vol] 88.9 fL Normal 80-100 [facility] Comment on above: Performed By: #### L IPID, TSH3, CBC, HS TROP, BMP, MG #### [address] Mean Corpuscular HGB Conc 34.1 g/dL Normal 32.0-35.0 [facility] Comment on above: Performed By: #### L IPID, TSH3, CBC, HS TROP, BMP, MG #### [address] Monocytes (Bld) [#/Vol] 0.5 10*3/uL Normal 0.0-0.8 [facility] Comment on above: Performed By: #### L IPID, TSH3, CBC, HS TROP, BMP, MG #### [address] Monocytes/100 WBC (Bld) 5.3 % Normal . [facility] Comment on above: Performed By: #### L IPID, TSH3, CBC, HS TROP, BMP, MG #### [address] Neutrophils (Bld) [#/Vol] 4.9 10*3/uL Normal 1.8-7.7 [facility] Comment on above: Performed By: #### L IPID, TSH3, CBC, HS TROP, BMP, MG #### [address] Neutrophils/100 WBC (Bld) 51.0 % Normal . [facility] Comment on above: Performed By: #### L IPID, TSH3, CBC, HS TROP, BMP, MG #### [address] NRBC% 0.1 /100{WBC} Normal 0-0.5 [facility] Comment on above: Performed By: #### L IPID, TSH3, CBC, HS TROP, BMP, MG #### [address] Platelet mean volume (Bld) [Entitic vol] 8.2 fL Normal 6.3-10.7 [facility] Comment on above: Performed By: #### L IPID, TSH3, CBC, HS TROP, BMP, MG #### [address] Platelets (Bld) [#/Vol] 214 10*3/uL Normal 150-450 [facility] Comment on above: Performed By: #### L IPID, TSH3, CBC, HS TROP, BMP, MG #### [facility] [address] [place] [id number] [place] RBC (Bld) [#/Vol] 3.61 10*6/uL Normal 3.60-5.00 [facility] Comment on above: Performed By: #### L IPID, TSH3, CBC, HS TROP, BMP, MG #### [facility] [address] [place] [id number] [place] WBC (Bld) [#/Vol] 9.6 10*3/uL Normal 3.8-11.6 [facility] Comment on above: Performed By: #### L IPID, TSH3, CBC, HS TROP, BMP, MG #### [facility] [address] [place] [id number] [place] Creatinine [Mass/volume] in Serum or PlasmaOrdered By: Yelitza Brock on 04-03-2024 Creatinine [Mass/Vol] Creatinine [Mass/v olume] in Serum or Plasma High 0.60-1.20 [facility] Eosinophils Auto (Bld) [#/Vo l]Ordered By: Yelitza Brock on 04-03-2024 Eosinophils (Bld) [#/Vol] Automated eosinophil count High 0.0-0.45 [facility] Eosinophils/100 WBC Auto (Bl d)Ordered By: Yelitza Brock on 04-03-2024 Eosinophils/100 WBC (Bld) Automated eosinophil % . [facility] Erythrocyte distribution wid th Auto (RBC) [Ratio]Ordered By: Yelitza Brock on 04-03-2024 Erythrocyte distribution width (RBC) [Ratio] Erythrocyte distribution width [Ratio] by Automated count 11.9-15.3 [facility] Glucose [Mass/volume] in Ser um or PlasmaOrdered By: Yelitza Brock on 04-03-2024 Glucose [Mass/Vol] Glucose [Mass/volume ] in Serum or Plasma High 70-100 [facility] Comment on above: ADA recommended refe rence rangeRandom Glucose Reference Range is dependent on time and content of last meal. Glucose of more than 200 mg/dL in a nonstressed, ambulatory subject supports the diagnosis of Diabetes Mellitus. Hematocrit Auto (Bld) [Volum e fraction]Ordered By: Yelitza Brcok on 04-03-2024 Hematocrit (Bld) [Volume fraction] Hematocrit [Volume Fraction] of Blood by Automated count Low 34.0-46.4 [facility] Hemoglobin [Mass/volume] in BloodOrdered By: Yelitza Brock on 04-03-2024 Hemoglobin (Bld) [Mass/Vol] Hemoglobin [Mass/volume] in Blood Low 11.8-15.4 [facility] Heparin anti-Xa unfractionat edOrdered By: Yelitza Brock on 04-03-2024 Heparin unfractionated Chromogenic method Qn (PPP) Heparin anti-Xa unfractionated 0.30-0.70 [facility] Comment on above: Use the aPTT protoco [...] erythrocytes in Blood by Automated coun 3.8-11.6 [facility] Lipid Panelon 04-03-2024 Cholesterol [Mass/Vol] 211 mg/dL High 140-200 [facility] Comment on above: Result Comment: Chol less than 200 mg/dl low risk Chol 201-239 mg/dl borderline risk Chol 240 mg/dl and greater high risk Performed By: #### L IPID, TSH3, CBC, HS TROP, BMP, MG #### [facility] [address] [place] [id number] [place] Cholesterol in HDL [Mass/Vol] 25 mg/dL Normal 23-92 [facility] Comment on above: Result Comment: HDL CHOL ATP-III CLASSIFICATION Cardiovascular Risk HDL > or equal to 60 mg/dL LOW HDL < 40 mg/dL HIGH Performed By: #### L IPID, TSH3, CBC, HS TROP, BMP, MG #### [facility] [address] [place] [address] [place] Cholesterol.total/Chol esterol in HDL [Mass ratio] 8.4 {ratio} Normal <5.0 [facility] Comment on above: Performed By: #### L IPID, TSH3, CBC, HS TROP, BMP, MG #### [facility] [address] LDL Cholesterol,Calculated 142 mg/dL High 0-100 [facility] Comment on above: Result Comment: LDL ATP III CLASSIFICATION LDL less than 100 mg/dL Optimal LDL 100-129 mg/dL Near or above optimal LDL 130-159 mg/dL Borderline high LDL 160-189 mg/dL High LDL greater than 189 mg/dL Very high Performed By: #### L IPID, TSH3, CBC, HS TROP, BMP, MG #### [facility] [address] Triglyceride w/Reflex 221 mg/dL High 0-149 [facility] Comment on above: Result Comment: TRIG ATP III CLASSIFICATION TRIG less than 150 mg/dL Normal TRIG 150-199 mg/dL Borderline high TRIG 200-500 mg/dL High TRIG greater than 500 mg/dL Very high Standard traceable to the Center for Disease Conrtrol and Prevention (CDC) test method. Performed By: #### L IPID, TSH3, CBC, HS TROP, BMP, MG #### [facility] [address] VLDL CHOLESTEROL 44 mg/dL Normal [facility] Comment on above: Performed By: #### L IPID, TSH3, CBC, HS TROP, BMP, MG #### [facility] [address] Lymphocytes Auto (Bld) [#/Vo l]Ordered By: Yelitza Brock on 04-03-2024 Lymphocytes (Bld) [#/Vol] Lymphocytes [#/volume] in Blood by Automated count 1.00-4.8 [facility] Lymphocytes/100 WBC Auto (Bl d)Ordered By: Yelitza Brock on 04-03-2024 Lymphocytes/100 WBC (Bld) Lymphocytes/100 leukocytes in Blood by Automated count . [facility] MCH Auto (RBC) [Entitic mass ]Ordered By: Yelitza Brock on 04-03-2024 MCH (RBC) [Entitic mass] MCH [Entitic mass] by Automated count 24.7-34.3 [facility] MCHC Auto (RBC) [Mass/Vol]Or dered By: Yelitza Brock on 04-03-2024 MCHC (RBC) [Mass/Vol] MCHC [Mass/volume] by Automated count 32.0-35.0 [facility] MCV Auto (RBC) [Entitic vol] Ordered By: Yelitza Brock on 04-03-2024 MCV (RBC) [Entitic vol] MCV [Entitic volume] by Automated count 80-100 [facility] Magnesiumon 04-03-2024 Magnesium [Mass/Vol] 2.0 mg/dL Normal 1.9-2.7 [facility] Comment on above: Performed By: #### L IPID, TSH3, CBC, HS TROP, BMP, MG #### [facility] [address] Magnesium [Mass/volume] in S gerardo or PlasmaOrdered By: Yelitza Brock on 04-03-2024 Magnesium [Mass/Vol] Magnesium [Mass/vol ume] in Serum or Plasma 1.9-2.7 [facility] Monocytes Auto (Bld) [#/Vol] Ordered By: Yelitza Brock on 04-03-2024 Monocytes (Bld) [#/Vol] Automated blood monocyte count 0.0-0.8 [facility] Monocytes/100 WBC Auto (Bld) Ordered By: Yelitza Brock on 04-03-2024 Monocytes/100 WBC (Bld) Automated monocyte % . [facility] Neutrophils Auto (Bld) [#/Vo l]Ordered By: Yelitza Brock on 04-03-2024 Neutrophils (Bld) [#/Vol] Neutrophils [#/volume] in Blood by Automated count 1.8-7.7 [facility] Neutrophils/100 WBC Auto (Bl d)Ordered By: Yelitza Brock on 04-03-2024 Neutrophils/100 WBC (Bld) Automated neutrophil % . [facility] No Panel InformationOrdered By: Yelitza Brock on 04-03-2024 Estimated GFR (CKD-EPI) 36.314 mL/Min [facility] Creatinine Clearance (Chem 27.31 [facility] Nucleated erythrocytes [Pres ence] in Blood by Automated countOrdered By: Yelitza Brock on 04-03-2024 Nucleated RBC Auto Ql (Bld) Nucleated erythrocytes [Presence] in Blood by Automated count 0-0.5 [facility] Platelet mean volume Auto (B ld) [Entitic vol]Ordered By: Yelitza Brock on 04-03-2024 Platelet mean volume (Bld) [Entitic vol] Platelet mean volume [Entitic volume] in Blood by Automated count 6.3-10.7 [facility] Platelets Auto (Bld) [#/Vol] Ordered By: Yelitza Brock on 04-03-2024 Platelets (Bld) [#/Vol] Platelets [#/volume] in Blood by Automated count 150-450 [facility] Potassium [Moles/volume] in Serum or PlasmaOrdered By: Yelitza Brock on 04-03-2024 Potassium [Moles/Vol] Potassium [Moles/v olume] in Serum or Plasma 3.5-5.1 [facility] RBC Auto (Bld) [#/Vol]Ordere d By: Yelitza Brock on 04-03-2024 RBC (Bld) [#/Vol] Erythrocytes [#/volu me] in Blood by Automated count 3.60-5.00 [facility] Serum or plasma anion gap de terminationOrdered By: Yelitza Brock on 04-03-2024 Anion gap [Moles/Vol] Serum or plasma an ion gap determination 6.0-15.0 [facility] Serum or plasma total choles terol/high density lipoprotein (HDL) cholesterol mass ratOrdered By: Yelitza Brock on 04-03-2024 Cholesterol.total/Chol esterol in HDL [Mass ratio] Serum or plasma total cholesterol/high density lipoprotein (HDL) cholesterol mass rat <5.0 [facility] Sodium [Moles/volume] in Ser um or PlasmaOrdered By: Yelitza Brock on 04-03-2024 Sodium [Moles/Vol] Sodium [Moles/volume ] in Serum or Plasma 136-145 [facility] Thyroid Stimulating Hormoneo n 04-03-2024 TSH Qn 5.21 m[IU]/L Normal 0.45-5.33 [facility] Comment on above: Result Comment: PERF ORMED BY: [place] [address] PATHOLOGIST PROTOTYPE ENGINEER MANAGER ANKUSH FARMER M.D. Performed By: #### L IPID, TSH3, CBC, HS TROP, BMP, MG #### [facility] [address] [place] [address] [facility] Thyrotropin [Units/volume] i n Serum or PlasmaOrdered By: Yelitza Brock on 04-03-2024 TSH Qn Thyrotropin [Units/volume] in Serum or Plasma 0.45-5.33 [facility] Triglyceride [Mass/volume] i n Serum or PlasmaOrdered By: Yelitza Brcok on 04-03-2024 Triglyceride [Mass/Vol] Triglyceride [Mass/volume] in Serum or Plasma High 0-149 [facility] Comment on above: TRIG ATP III CLASSIF ICATIONTRIG less than 150 mg/dL NormalTRIG 150-199 mg/dL Borderline highTRIG 200-500 mg/dL High TRIG greater than 500 mg/dL Very highStandard traceable to the Center for Disease Conrtrol and Prevention (CDC) test method. Troponin I High Sensitivityo n 04-03-2024 Troponin I High Sensitivity 2896.3 pg/mL Off scale high 0.0-15.0 [facility] Comment on above: Result Comment: Crit ical Result : Called to and read back by: MIGUEL REBOLLEDO at: 04/03/2024 05:12:11 by:[id number] PERFORMED BY: [place] [address] PATHOLOGIST PROTOTYPE ENGINEER MANAGER ANKUSH FARMER M.D. Performed By: #### L IPID, TSH3, CBC, HS TROP, BMP, MG #### [facility] [address] [place] [address] [facility] Troponin I.cardiac [Mass/vol ume] in Serum or Plasma by Detection limit <= 0.01 ng/Ordered By: Yelitza Brock on 04-03-2024 Troponin I.cardiac DL <= 0.01 ng/mL [Mass/Vol] Troponin I.cardiac [Mass/volume] in Serum or Plasma by Detection limit <= 0.01 ng/ Critically high 0.0-15.0 [facility] Comment on above: Critical Result : Ca lled to and read back by: MIGUEL REBOLLEDO at: 04/03/2024 05:12:11 by:[id number] Urea nitrogen [Mass/volume] in Serum or PlasmaOrdered By: Yelitza Brock on 04-03-2024 Urea nitrogen [Mass/Vol] Urea nitrogen [Mass/volume] in Serum or Plasma 11-07 [facility] WBC Auto (Bld) [#/Vol]Ordere d By: Yelitza Brock on 04-03-2024 WBC (Bld) [#/Vol] Leukocytes [#/volume ] in Blood by Automated count 3.8-11.6 [facility] Anti-Xa UF Heparinon 024 Anti-Xa UF Heparin 0.34 [IU]/mL Normal 0.30-0.70 [facility] Comment on above: Result Comment: Use the aPTT protocol when triglycerides are > 800 mg/dL, total bilirubin is > 20 mg/dL and/or patient has received a DOAC, Fondaparinux or LMWH within 72 hours AND baseline anti-Xa level is > 0.7 units/mL PERFORMED BY: [place] [address] PATHOLOGIST PROTOTYPE ENGINEER MANAGER ANKUSH FARMER M.D. Performed By: #### U EP ####[facility] [address] [place] [id number] [facility] ECG 12 lead ECGon 04-02-2024 ECG 12 lead ECG [facility] [address] [place] [address] [place] [address] Electrocardiograph Report Signed Patient: Johanny Forbes MR#: [id number] : 1940 Acct:[id number] Age/Sex: 83 / F ADM Date: 04/02/24 Loc: Room: [address] [place] [address] Type: ADM IN Attending Dr: Gordo Fagan MD Ordering Provider: Ngoc Wolf MD Date of Service: 04/02/24 ECG/ECG 12 lead ECG: transfer from [facility] Copies to: Test Reason : Blood Pressure [...] QT has lengthened Confirmed by CATY MELCHOR [facility] [place] ([id number]) on 04/03/2024 1:26:16 PM Referred By: Electronically Signed By: HOLLAND BYRNE MD [facility] Transcribed By: MUS Signed By Holland Byrne MD, [facility] 04/03/24 1326 Normal [facility] INR in Platelet poor plasma by Coagulation assayOrdered By: Yelitza Brock on 04-02-2024 INR Coag (PPP) [Relative time] INR in Platelet poor plasma by Coagulation assay [facility] Comment on above: INR Therapeutic Rang e [...] [Time] 32.6 s Normal 25.1-36.5 [facility] Comment on above: Result Comment: A he matocrit value greater than 55% may lead to inaccurate results in coagulation testing. Patients having hematocrit values >55% require a special collection tube for coagulation studies. Please contact the laboratory at [phone] for redraw instructions. PERFORMED BY: [facility] [address] [place] [address] PATHOLOGIST PROTOTYPE ENGINEER MANAGER ANKUSH FARMER M.D. Performed By: #### P T, PTT ####[facility] [id number] [place] [address] [facility] Prothrombin Time INRon 04-02 INR Coag (PPP) [Relative time] 1.1 {INR} Normal [facility] Comment on [...] 4.5 Performed By: #### P T, PTT ####[facility] [id number] [place] [address] [facility] PT Coag (PPP) [Time] 12.8 s Normal 9.0-12.9 [facility] Comment on above: Result Comment: A he matocrit value greater than 55% may lead to inaccurate results in coagulation testing. Patients having hematocrit values >55% require a special collection tube for coagulation studies. Please contact the laboratory at [phone] for redraw instructions. Performed By: #### P T, PTT ####[facility] [address] [place] [address] [facility] Prothrombin time (PT)Ordered By: Yelitza Brock on 04-02-2024 PT Coag (PPP) [Time] Prothrombin time (PT) 9.0- 12.9 [facility] Comment on above: A hematocrit value g reater than 55% may lead to inaccurate results in coagulation testing. Patients having hematocrit values >55% require a special collection tube for coagulation studies. Please contact the laboratory at [phone] for redraw instructions. aPTT in Platelet poor plasma by Coagulation assayOrdered By: Yelitza Brock on 04-02-2024 aPTT Coag (PPP) [Time] Activated partial thromboplastin time (aPTT) in platelet poor plasma by coagulation a 25.1-36.5 [facility] Comment on above: A hematocrit value g reater than 55% may lead to inaccurate results in coagulation testing. Patients having hematocrit values >55% require a special collection tube for coagulation studies. Please contact the laboratory at [phone] for redraw instructions. ALBUMIN, RANDOM URINE W/CREA TININEon 03-05-2024 ALBUMIN, URINE 0.8 mg/dL Normal See Note: [facility] Comment on above: Result Comment: Shaggy patel Range: Reference Range Not established Performed By: #### 6 517, 496 #### [facility] [address], [address] [place] [address] Coil Cutter: César Dunn MD ALBUMIN/CREATININE RATIO, RANDOM URINE [...] #### 6 517, 496 #### [facility] [address], [address] [place] [address] Coil Cutter: César Dunn MD Creatinine (U) [Mass/Vol] 49 mg/dL Normal 20-275 [facility] Comment on above: Performed By: #### 6 517, 496 #### [facility] [address], [address] [place] [address] Coil Cutter: César Dunn MD HEMOGLOBIN A1con 03-05-2024 HEMOGLOBIN [...] #### 6 517, 496 #### [facility] [address], [address] [place] [address] Coil Cutter: César Dunn MD TRANSTHORACIC ECHO (TTE) [facility] 08-09-2023 TRANSTHORACIC ECHO (TTE) COMPLETE [facility] [address] [facility], [address], [place] [address] TRANSTHORACIC ECHOCARDIOGRAM REPORT Patient Name: JOHANNY FORBES Reading Physician: [id number] Esther Hagan MD Study Date: 08/09/2023 Ordering Provider: [id number] ELOISE GALICIA MRN/PID: [id number] Fellow: Nurse: Date of /Age: 1 1940 / 83 years Process Development Associate: Anna Marie Mckinney RDCS, RVT Gender: F Additional Staff: Height: 160.02 cm Admit Date: Weight: 66.23 kg Admission Status: BSA / BMI: 1.69 m2 / 25.86 kg/m2 Department Location: [facility] Blood Pressure: 134 /88 mmHg Study Type: TRANSTHORACIC ECHO (TTE) COMPLETE Diagnosis/ICD: 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 Work Phone: Aortic Valve Area by Continuity of VTI 2.[address] [facility] Work Phone: [phone] AV mn grad 3.[address] [facility] Work Phone: [phone] AV pk grad 6.[address] [facility] Work Phone: [phone] AV pk lore 1.31 m/s [facility] Work Phone: [phone] LV A4C EF 61.9 [facility] Work Phone: [phone] [facility] Work Phone: [phone] LVOT diam 2.[address] [facility] Work Phone: [phone] MV avg E/e' ratio 9.00 [facility] Work Phone: MV E/A ratio 0.65 [facility] Work Phone: RVSP 21.[address] [facility] Work Phone: [facility] Work Phone: US Heart Transthoracicon [facility] [address] [facility], [address], [place] [address] TRANSTHORACIC ECHOCARDIOGRAM REPORT Patient Name: JOHANNY FORBES Reading Physician: [id number] Esther Hagan MD Study Date: 08/09/2023 Ordering Provider: [id number] ELOISE GALICIA MRN/PID: [id number] Fellow: Nurse: Date of /Age: 1 1940 / 83 years Process Development Associate: Anna Marie Mckinney RDCS, RVT Gender: F Additional Staff: Height: 160.02 cm Admit Date: Weight: 66.23 kg Admission Status: BSA / BMI: 1.69 m2 / 25.86 kg/m2 Department Location: [facility] Blood Pressure: 134 /88 mmHg Study Type: TRANSTHORACIC ECHO (TTE) COMPLETE Diagnosis/ICD: 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 Esther Casey MD - 08/09/[address], [address] [place] [address] TRANSTHORACIC ECHOCARDIOGRAM REPORT Patient Name: JOHANNY FORBES Reading Physician: [id number] Esther Hagan MD Study Date: 08/09/2023 Ordering Provider: [id number] ELOISE GALICIA MRN/PID: [id number] Fellow: Nurse: Date of /Age: 1 1940 / 83 years Process Development Associate: Anna Marie Mckinney RDCS, RVT Gender: F Additional Staff: Height: 160.02 cm Admit Date: Weight: 66.23 kg Admission Status: BSA / BMI: 1.69 m2 / 25.86 kg/m2 Department Location: [facility] Blood Pressure: 134 /88 mmHg Study Type: TRANSTHORACIC ECHO (TTE) COMPLETE Diagnosis/ICD: 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 Work Phone: ECG 12 [place] 07-07-2023 EKG today shows norm al sinus rhythm at 80 bpm WV interval 154 ms QRS duration 104 ms QTc 449 ms minimal voltage criteria for left ventricular hypertrophy pattern of septal myocardial infarction [facility] Work Phone: CNPKenia 05-15-2022 CNPN Telephone (NCCAP) ----- RANDOLPHJOHANNY GARNER ([id number]) 1940 F Date Time Provider Department 05/15/22 [facility] During your visit today, we recorded the following information about you: Honey Villavicencioyvonne 05/15/2022 1:42 PM Signed Patient is currently at [facility] for her Mammogram. Chrissie is calling to request a new order. 1) Diagnostic Bilateral Mammogram 2) US order (that way they have it if needed) ABDIFATAH/Amarilys: If in agreement, can you please place order PERLITA and I will fax back to her? Thanks! Chrissie: Ph. [phone] Fax. [phone] Honey Lama MD 05/15/2022 2:11 PM Signed [...] left (HCC) [C50.912, C77.3] Order(s):DANIELLE DIAGNOSTIC BILAT [[id number]] Order #: [id number] FUTURE US BREAST LTD LT [[id number]] Order #: [id number] FUTURE US BREAST LTD RT [[id number]] Order #: [id number] FUTURE Prescriptions as of 05/15/2022 - aspirin [...] Encounter Status:Closed by HONEY ALMEIDA on 05/15/22 [facility] ----- JOHANNY FORBES ([id number]) 1940 F Date Time Provider Department 05/15/22 RU THOMAS During your visit today, we recorded the following information about you: Ru Thomas RN 05/15/2022 2:19 PM Signed Received call from pt stating she is at [facility] and needs mammogram orders sent. Orders faxed [...] Status:Closed by RU THOMAS on 05/15/22 Normal [facility] COVID/FLU RT-PCRon SARS-CoV-2 (COVID-19) RNA DEIDRE+probe Ql (Unsp spec) Negative [employer] Other COVID/FLU RT-PCR Negative [employer] Other [employer] 02-13-2022 CNPN Telephone (HEMTSA) ----- JOHANNY FORBES ([id number]) 1940 F Date Time Provider Department 02/13/22 SHIVA REYES During your visit today, we recorded the following information about you: Shiva Reyes RN 02/13/2022 2:30 PM Signed Pt called and is requesting to now follow up with Radiation Dr. Baig states I am getting a little scared [...] Encounter Status:Closed by SHIVA REYES on 02/13/22 [facility] CNOVSPon 01-31-2022 CNOVSP Visit (SP) Office (HEMASA) ----- ANDREIJOHANNY ([id number]) 1940 F Date Time Provider Department 01/31/22 3:15 PM SIMIN LAMA During your visit today, we recorded the following information about you: Temperature Pulse Respiration Blood pressure 97.3 degrees 62/minute 16/minute 142/65 Weight Height 70 kg 1.589 m Simin Lama MD 01/31/2022 3:38 PM Signed PATIENT NAME: Johanny Forbes CLINIC NO.: [id number] ATTENDING PHYSICIAN: Simin Lama MD DATE OF [...] metastatic breast carcinoma, 5 cm, ER 0, WV 0, HER-2 0 by IHC. The tissue was not evaluated for flow cytometry to rule out a lymphoproliferative process. 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 Differential included mammary, skin, urothelial, pancreaticobiliary and pulmonary primaries. ER 0, WV 0, HER-2 negative by CAMERON. 2021 PET [...] (more content not included)... [facility]phone ([facility]) ----- JOHANNY FORBES ([id number]) 1940 F Date Time Provider Department 01/31/22 SIMIN LAMA During your visit today, we recorded the following information about you: Honey Almeida 01/31/2022 4:[address] Lama, patient had a previous abnormal L Mammogram and never followed up. He would like L Mammogram completed now. Faxed order to [facility] scheduling per patient's hospital request. Honey Juan [...] Encounter Status:Closed by HONEY ALMEIDA on 02/01/22 [facility] Aniket 01-30-2022 CNPN Telephone ([facility]) ----- JOHANNY FORBES ([id number]) 1940 F Date Time Provider Department 01/30/22 [...] Fully Assessed Reason for Visit: Patient Question [1680] Prescriptions as of 01/30/2022 - aspirin 81 [...] Status:Closed by AMANDA HENDERSON on 01/30/22 Normal [facility] CNCOon 11-07-2021 CNCO Letter Text Normal [facility] CBC W Auto Differential pane l (Bld)on 07-28-2021 Basophils (Bld) [#/Vol] 0.03 10*3/uL Normal <0.11 [facility] Comment on above: Order Comment: Speci men Type: BLOOD SPECIMENOrdering Facility: [facility] Address: [address] [place] [address] Performed By: #### 5 7021-8 ####[facility] LABCLIA [id number] [place] [address] Basophils/100 WBC (Bld) 0.4 % Normal [facility] Comment on above: Order Comment: Speci men Type: BLOOD SPECIMENOrdering Facility: [facility] Address: [address] [place] [address] Performed By: #### 5 7021-8 ####[facility] LABCLIA [id number] [place] [address] Differential cell count method Nom (Bld) Auto Normal [facility] Comment on above: Order Comment: Speci men Type: BLOOD SPECIMENOrdering Facility: [facility] Address: [address] [place] [address] Performed By: #### 5 7021-8 ####[facility] LABCLIA [id number] [place] [address] Eosinophils (Bld) [#/Vol] 0.29 10*3/uL Normal <0.46 [facility] Comment on above: Order Comment: Speci men Type: BLOOD SPECIMENOrdering Facility: [facility] Address: [address] [place], [place] [address] Performed By: #### 5 7021-8 ####[facility] LABCLIA [id number] [place] [address] Eosinophils/100 WBC (Bld) 3.7 % Normal [facility] Comment on above: Order Comment: Speci men Type: BLOOD SPECIMENOrdering Facility: [facility] Address: [address] [place] [address] Performed By: #### 5 7021-8 ####[facility] LABCLIA [id number] [place] [address] Erythrocyte distribution width (RBC) [Ratio] 13.2 % Normal 11.5-15.0 [facility] Comment on above: Order Comment: Speci men Type: BLOOD SPECIMENOrdering Facility: [facility] Address: [address] [place] [address] Performed By: #### 5 7021-8 ####[facility] LABIA [id number] [place] [address] Hematocrit (Bld) [Volume fraction] 37.6 % Normal 36.0-46.0 [facility] Comment on above: Order Comment: Speci men Type: BLOOD SPECIMENOrdering Facility: [facility] Address: [address] [place] [address] Performed By: #### 5 7021-8 ####[facility] LABIA [id number] [place] [address] Hemoglobin (Bld) [Mass/Vol] 12.1 g/dL Normal 11.5-15.5 [facility] Comment on above: Order Comment: Speci men Type: BLOOD SPECIMENOrdering Facility: [facility] Address: [address] [place] [address] Performed By: #### 5 7021-8 ####[facility] LABIA [id number] [place] [address] IMMATURE GRAN % 0.3 % Normal [facility] Comment on above: Order Comment: Speci men Type: BLOOD SPECIMENOrdering Facility: [facility] Address: [address] [place] [address] Performed By: #### 5 7021-8 ####[facility] LABIA [id number] [place] [address] IMMATURE GRAN ABS <0.03 Normal <0.10 [facility] Comment on above: Order Comment: Speci men Type: BLOOD SPECIMENOrdering Facility: [facility] Address: [address] [place] [address] Performed By: #### 5 7021-8 ####[facility] LABCLIA [id number] [place] [address] Lymphocytes (Bld) [#/Vol] 3.28 10*3/uL Normal 1.00-4.00 [facility] Comment on above: Order Comment: Speci men Type: BLOOD SPECIMENOrdering Facility: [facility] Address: [address] [place] [address] Performed By: #### 5 7021-8 ####[facility] LABIA [id number] [place] [address] Lymphocytes/100 WBC (Bld) 41.8 % Normal [facility] Comment on above: Order Comment: Speci men Type: BLOOD SPECIMENOrdering Facility: [facility] Address: [address] [place] [address] Performed By: #### 5 7021-8 ####[facility] LABIA [id number] [place] [address] MCH (RBC) [Entitic mass] 30.0 pg Normal 26.0-34.0 [facility] Comment on above: Order Comment: Speci men Type: BLOOD SPECIMENOrdering Facility: [facility] Address: [address] [place] [address] Performed By: #### 5 7021-8 ####[facility] LABIA [id number] [place] [address] MCHC (RBC) [Mass/Vol] 32.2 g/dL Normal 30.5-36.0 [facility] Comment on above: Order Comment: Speci men Type: BLOOD SPECIMENOrdering Facility: [facility] Address: [address] [place] [address] Performed By: #### 5 7021-8 ####[facility] LABIA [id number] [place] [address] MCV (RBC) [Entitic vol] 93.3 fL Normal 80.0-100.0 [facility] Comment on above: Order Comment: Speci men Type: BLOOD SPECIMENOrdering Facility: [facility] Address: [address] [place] [address] Performed By: #### 5 7021-8 ####[facility] LABCLIA [id number] [place] [address] Monocytes (Bld) [#/Vol] 0.46 10*3/uL Normal <0.87 [facility] Comment on above: Order Comment: Speci men Type: BLOOD SPECIMENOrdering Facility: [facility] Address: [address] [place] [address] Performed By: #### 5 7021-8 ####[facility] LABCLIA [id number] [place] [address] Monocytes/100 WBC (Bld) 5.9 % Normal [facility] Comment on above: Order Comment: Speci men Type: BLOOD SPECIMENOrdering Facility: [facility] Address: [address] [place] [address] Performed By: #### 5 7021-8 ####[facility] LABCLIA [id number] [place] [address] Neutrophils (Bld) [#/Vol] 3.77 10*3/uL Normal 1.45-7.50 [facility] Comment on above: Order Comment: Speci men Type: BLOOD SPECIMENOrdering Facility: [facility] Address: [address] [place] [address] Performed By: #### 5 7021-8 ####[facility] LABCLIA [id number] [place] [address] Neutrophils/100 WBC (Bld) 47.9 % Normal [facility] Comment on above: Order Comment: Speci men Type: BLOOD SPECIMENOrdering Facility: [facility] Address: [address] [place] [address] Performed By: #### 5 7021-8 ####[facility] LABCLIA [id number] [place] [address] Nucleated RBC (Bld) [#/Vol] 10*3/uL Normal <0.01 [facility] Comment on above: Order Comment: Speci men Type: BLOOD SPECIMENOrdering Facility: [facility] Address: [address] [place] [address] Performed By: #### 5 7021-8 ####[facility] LABCLIA [id number] [place] [address] Nucleated RBC/100 WBC (Bld) [Ratio] 0.0 /100 WBC Normal [facility] Comment on above: Order Comment: Speci men Type: BLOOD SPECIMENOrdering Facility: [facility] Address: [address] [place] [address] Performed By: #### 5 7021-8 ####[facility] LABIA [id number] [place] [address] Platelet mean volume (Bld) [Entitic vol] 10.6 fL Normal 9.0-12.7 [facility] Comment on above: Order Comment: Speci men Type: BLOOD SPECIMENOrdering Facility: [facility] Address: [address] [place] [address] Performed By: #### 5 7021-8 ####[facility] LABIA [id number] [place] [address] Platelets (Bld) [#/Vol] 259 10*3/uL Normal 150-400 [facility] Comment on above: Order Comment: Speci men Type: BLOOD SPECIMENOrdering Facility: [facility] Address: [address] [place] [address] Performed By: #### 5 7021-8 ####[facility] LABIA [id number] [place] [address] RBC (Bld) [#/Vol] 4.03 10*6/uL Normal 3.90-5.20 [facility] Comment on above: Order Comment: Speci men Type: BLOOD SPECIMENOrdering Facility: [facility] Address: [address] [place] [address] Performed By: #### 5 7021-8 ####[facility] LABCLIA [id number] [place] [address] WBC (Bld) [#/Vol] 7.85 10*3/uL Normal 3.70-11.00 [facility] Comment on above: Order Comment: Speci men Type: BLOOD SPECIMENOrdering Facility: [facility] Address: [address] [place] [address] Performed By: #### 5 7021-8 ####[facility] LABCLIA [id number] [place] [address] Abs Immature Gran <0.03 <0.10 k/uL [facility] Basophils (Bld) [#/Vol] 0.03 10*3/uL <0.11 k/uL [facility] Basophils/100 WBC (Bld) 0.4 % [facility] Differential cell count method Nom (Bld) Auto [facility] Eosinophils (Bld) [#/Vol] 0.29 10*3/uL <0.46 k/uL [facility] Eosinophils/100 WBC (Bld) 3.7 % [facility] Erythrocyte distribution width (RBC) [Ratio] 13.2 % 11.5 - 15.0 % [facility] Hematocrit (Bld) [Volume fraction] 37.6 % 36.0 - 46.0 % [facility] Hemoglobin (Bld) [Mass/Vol] 12.1 g/dL 11.5 - 15.5 g/dL [facility] Immature Gran % 0.3 % [facility] Lymphocytes (Bld) [#/Vol] 3.28 10*3/uL 1.00 - 4.00 k/uL [facility] Lymphocytes/100 WBC (Bld) 41.8 % [facility] MCH (RBC) [Entitic mass] 30.0 pg 26.0 - 34.0 pg [facility] MCHC (RBC) [Mass/Vol] 32.2 g/dL 30.5 - 36.0 g/dL [facility] MCV (RBC) [Entitic vol] 93.3 fL 80.0 - 100.0 fL [facility] Monocytes (Bld) [#/Vol] 0.46 10*3/uL <0.87 k/uL [facility] Monocytes/100 WBC (Bld) 5.9 % [facility] Neutrophils (Bld) [#/Vol] 3.77 10*3/uL 1.45 - 7.50 k/uL [facility] Neutrophils/100 WBC (Bld) 47.9 % [facility] Nucleated RBC (Bld) [#/Vol] 10*3/uL <0.01 k/uL [facility] Nucleated RBC/100 WBC (Bld) [Ratio] 0.0 /100 WBC [facility] Platelet mean volume (Bld) [Entitic vol] 10.6 fL 9.0 - 12.7 fL [facility] Platelets (Bld) [#/Vol] 259 10*3/uL 150 - 400 k/uL [facility] RBC (Bld) [#/Vol] 4.03 10*6/uL 3.90 - 5.20 m/uL [facility] WBC (Bld) [#/Vol] 7.85 10*3/uL 3.70 - 11.00 k/uL [facility] CNOVSPon 07-28-2021 CNOVSP Visit (SP) Office ([place]AS[place]) ----- JOHANNY FORBES ([id number]) 1940 F Date Time Provider Department 07/28/21 [...] and other physicians involved in patient's care: oJrge Luis Whitehead (PCP), Tim Niño, Campbell Henson [...] metastatic breast carcinoma, 5 cm, ER 0, WV 0, HER-2 0 by IHC. The tissue was not evaluated for flow cytometry to rule out a lymphoproliferative process. 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 Differential included mammary, skin, urothelial, pancreaticobiliary and pulmonary primaries. ER 0, WV 0, HER-2 negative by CAMERON. ? 2021 [...] today. Fo (more content not included)... Normal [facility] Comprehensive metabolic 2000 panelon 07-28-2021 Albumin [Mass/Vol] 4.2 g/dL Normal 3.9-4.9 [facility] Comment on above: Order Comment: Speci men Type: BLOOD SPECIMENOrdering Facility: [facility] Address: [address] [place] [address] Performed By: #### 2 4323-8 ####[facility] LABCLIA [id number] [place] [address] ALP [Catalytic activity/Vol] 72 U/L Normal 34-123 [facility] Comment on above: Order Comment: Speci men Type: BLOOD SPECIMENOrdering Facility: [facility] Address: [address] [place] [address] Performed By: #### 2 4323-8 ####[facility] LABCLIA [id number] [place] [address] ALT [Catalytic activity/Vol] 7 U/L Normal 7-38 [facility] Comment on above: Order Comment: Speci men Type: BLOOD SPECIMENOrdering Facility: [facility] Address: [address] [place] [address] Performed By: #### 2 4323-8 ####[facility] LABCLIA [id number] [place] [address] Anion gap [Moles/Vol] 7 mmol/L Low 9-18 [facility] Comment on above: Order Comment: Speci men Type: BLOOD SPECIMENOrdering Facility: [facility] Address: [address] [place] [address] Performed By: #### 2 4323-8 ####[facility] LABCLIA [id number] [place] [address] AST [Catalytic activity/Vol] 17 U/L Normal 13-35 [facility] Comment on above: Order Comment: Speci men Type: BLOOD SPECIMENOrdering Facility: [facility] Address: [address] [place] [address] Performed By: #### 2 4323-8 ####[facility] LABCLIA [id number] [place] [address] Bilirubin [Mass/Vol] 0.4 mg/dL Normal 0.2-1.3 [facility] Comment on above: Order Comment: Speci men Type: BLOOD SPECIMENOrdering Facility: [facility] Address: [address] [place] [address] Performed By: #### 2 4323-8 ####[facility] LABCLIA [id number] [place] [address] Calcium [Mass/Vol] 9.8 mg/dL Normal 8.5-10.2 [facility] Comment on above: Order Comment: Speci men Type: BLOOD SPECIMENOrdering Facility: [facility] Address: [address] [place] [address] Performed By: #### 2 4323-8 ####[facility] LABCLIA [id number] [place] [address] Chloride [Moles/Vol] 105 mmol/L Normal 97-105 [facility] Comment on above: Order Comment: Speci men Type: BLOOD SPECIMENOrdering Facility: [facility] Address: [address] [place] [address] Performed By: #### 2 4323-8 ####[facility] LABCLIA [id number] [place] [address] CO2 [Moles/Vol] 26 mmol/L Normal 22-30 [facility] Comment on above: Order Comment: Speci men Type: BLOOD SPECIMENOrdering Facility: [facility] Address: [address] [place] [address] Performed By: #### 2 4323-8 ####[facility] LABCLIA [id number] [place] [address] Creatinine [Mass/Vol] 1.31 mg/dL High 0.58-0.96 [facility] Comment on above: Order Comment: Speci men Type: BLOOD SPECIMENOrdering Facility: [facility] Address: [address] [place] [address] Performed By: #### 2 4323-8 ####[facility] LABCLIA [id number] [place] [address] ESTIMATED GLOMERULAR FILTRATION RATE 41 mL/min/1.73m??? Low >=60 [facility] Comment on above: Order Comment: Joseline beebe Type: BLOOD SPECIMENOrdering Facility: [facility] Address: [address] [place] [address] Result Comment: Nereyda mated Glomerular Filtration Rate [...] actual GFR. Performed By: #### 2 4323-8 ####[facility] LABCLIA [id number] [place] [address] Glucose [Mass/Vol] 129 mg/dL High 74-99 [facility] Comment on above: Order Comment: Joseline beebe Type: BLOOD SPECIMENOrdering Facility: [facility] Address: [address] [place] [address] Result Comment: The [place] [employer] (ADA) provides guidance for cutoff [...] Standards of Medical Care in Diabetes 2016, [place] [employer]. Diabetes Care. 2016.39(Suppl 1). Performed By: #### 2 4323-8 ####[facility] LABCLIA [id number] [place] [address] Potassium [Moles/Vol] 4.6 mmol/L Normal 3.7-5.1 [facility] Comment on above: Order Comment: Speci men Type: BLOOD SPECIMENOrdering Facility: [facility] Address: [address] [place] [address] Performed By: #### 2 4323-8 ####[facility] LABCLIA [id number] [place] [address] Protein [Mass/Vol] 7.5 g/dL Normal 6.3-8.0 [facility] Comment on above: Order Comment: Speci men Type: BLOOD SPECIMENOrdering Facility: [facility] Address: [address] [place] [address] Performed By: #### 2 4323-8 ####[facility] LABCLIA [id number] [place] [address] Sodium [Moles/Vol] 138 mmol/L Normal 136-144 [facility] Comment on above: Order Comment: Speci men Type: BLOOD SPECIMENOrdering Facility: [facility] Address: [address] [place] [address] Performed By: #### 2 4323-8 ####[facility] LABCLIA [id number] [place] [address] Urea nitrogen [Mass/Vol] 22 mg/dL High 7-21 [facility] Comment on above: Order Comment: Speci men Type: BLOOD SPECIMENOrdering Facility: [facility] Address: [address] [place] [address] Performed By: #### 2 4323-8 ####[facility] LABCLIA [id number] [place] [address] FLOW CYTOMETRY REFLEXon 04- CASE REPORT Normal [facility] Comment on above: Order Comment: Speci men Type: BLOOD SPECIMENOrdering Facility: [facility] Address: [address] [place] [address] Result Comment: Flow Cytometry Case: [id number] Authorizing Provider: Drake Anand MD Collected: 07/28/2021 02:03 PM Ordering Location: Laboratory Medicine Received: 07/29/2021 12:43 PM Pathologist: Tang Oquendo MD Specimen: BLOOD Performed By: #### F LOWREFLEX ####[facility] LABCLIA [id number] [address] GROSS DESCRIPTION A. BLOOD. Normal [facility] Comment on above: Order Comment: Speci men Type: BLOOD SPECIMENOrdering Facility: [facility] Address: [address] [place] [address] Result Comment: Rece ived 4ml of peripheral blood in EDTA. Performed By: #### F LOWREFLEX ####[facility] [id number] [address] INTERPRETATION Normal [facility] Comment on above: Order Comment: Speci men Type: BLOOD SPECIMENOrdering Facility: [facility] Address: [address] [place] [address] Result Comment: Spec imen type: BLOOD CBC [...] Negative CD200 B-cells Positive FMC7 B-cells Positive [place]/Lambda B-cells Monotypic kappa Flow cytometric analysis of [...] its performance characteristics determined by [facility]???s [facility] Pathology and Laboratory Medicine [place] ([facility]). It has not been cleared or approved by the FDA. -[facility] is regulated under CLIA as qualified to perform high-complexity testing. This test is used for clinical purposes. It should not be regarded as investigational or for research. CALI/JUAN MIGUEL 07/29/21 Diagnostic interpretation performed at [facility], [address] [place] [address] CLIA# [id number] Civil Engineering Professional: Bharath Light M.D. Performed By: #### F LOWREFLEX ####[facility] LABCLIA [id number] [place] [address] [place] PERIPHERAL BLOOD LOW GRADE L EUK MARKERS FCon 07-28-2021 FLOW CYTOMETRY ORDER STATUS See Results in chart under F case ID Normal [facility] Comment on above: Order Comment: Speci men Type: BLOOD SPECIMENOrdering Facility: [facility] Address: [address] [place] [address] Performed By: #### P BLGLY ####[facility] LABCLIA [id number] [id number] [id number] [facility] CNPNon 07-22-2021 CNPN Telephone (HEMASA) ----- JOHANNY FORBES ([id number]) 1940 F Date Time Provider Department 07/22/21 [...] discuss further. She can be reached at [phone]. ROSA ELENA Esteban MD 07/22/2021 2:38 PM [...] Fully Assessed Reason for Visit: Patient Question [9887] Prescriptions as of 07/22/2021 - aspirin 81 [...] Encounter Status:Closed by RU BLACKMAN on 07/22/21 [facility] Aniket 07-01-2021 CNPN Telephone (HEMASA) ----- JOHANNY FORBES ([id number]) 1940 F Date Time Provider Department 07/01/21 RU BLACKMAN During your visit today, we recorded the following information about you: Ru Blackman RN 07/01/2021 2:07 PM Signed Received call from pt wanting to know if Dr Anand got her results for the genetic testing on her tumor? SJK: Any message for pt? Or she can be reached at [phone]. ROSA ELENA Esteban MD 07/01/2021 2:49 PM [...] Status:Closed by RU BLACKMAN on 07/04/21 Normal [facility] MG MAMM DIAGNOSTIC 3D COY CA Don 05-03-2021 MG MAMM DIAGNOSTIC 3D COY CAD Patient: JOHANNY FORBES Exam Date: 05/03/2021 : 1940 Gender:F Ordering : DRAKE ANAND Admission #: [id number] Family : DR JORGE LUIS WHITEHEAD Order #: [id number] CLICK HERE TO VIEW EXAM RADIOLOGY REPORT PROCEDURE: MAMMOGRAM DIAGNOSTIC 3D BILATERAL CAD COMPARISON: MAMMO SCREEN DIG COY, 01/22/2012. INDICATIONS: Secondary malignant neoplasm of axilla Calculator Name NCI Breast Cancer Risk Assessment Tool 5 Year Breast Cancer Risk n/a% Lifetime Breast Cancer Risk n/a% Personal Breast Cancer Yes Personal Ovarian Cancer No Treatments None Family Cancers None LOCATION: [facility] BREAST COMPOSITION: Scattered areas fibroglandular density. FINDINGS: [...] MD on 05/03/2021 at 14:29 Normal [facility] PET+CT Guidance for localiza tion of tumor [...] any questions regarding this interpretation, please call [phone]. If you are unable to reach us at the number above, please feel free to contact [facility] at [phone]. DIVISION OF RADIOLOGY * * *Final Report* [...] to recent biopsy. No destructive osseous lesions. Freight Adjuster (topogram) images: No additional findings. DIVISION OF RADIOLOGY Provider, [facility] - 04/26/2021 * * *Final Report* [...] to recent biopsy. No destructive osseous lesions. Freight Adjuster (topogram) images: No additional findings. IMPRESSION IMPRESSION: [...] any questions regarding this interpretation, please call [phone]. If you are unable to reach us at the number above, please feel free to contact [facility] eRadiology at [phone]. [facility] PET+CT Guidance for localiza tion of tumor of Skull base to mid-thigh-- W 18F-FDG IVOrdered By: Ccf Provider on 04-26-2021 [facility] GLUCOSE, BLOOD (POC)on 04-25 Glucose [Mass/Vol] 155 mg/dL Abnormal 74 - 99 mg/dL [facility] Comment on above: Location:[facility], [address] [place] [address] , [place], [place], [address] The Accu-Chek Inform II glucose meter has [...] Interpretation and review of laboratory results Abnormal [facility] PET+CT Guidance for localiza tion of tumor of Skull base to mid-thigh-- W 18F-FDG Michael 2021 Radiology Study observation (narrative) [facility] POINT OF CARE GLUCOSEon 12-0 Glucose [Mass/Vol] 169 mg/dL Critically high 74-106 T [facility] Comment on above: Performed By: #### P OCGLUC #### [facility] [address] [place], [place] [address] Dr. Dontae Vallejo CBC AUTO DIFFon 03-14-2021 BASO # 0.1 103/ul Normal 0.0-0.1 [facility] Comment on above: Performed By: #### C BC #### [facility] [address] [place] [address] Dr. Dontae Vallejo Basophils/100 WBC (Bld) 0.6 % Normal 0.2-2.0 [facility] Comment on above: Performed By: #### C BC #### [facility] [address] [place] [address] Dr. Dontae Vallejo EO # 0.4 103/ul Normal 0.0-0.7 [facility] Comment on above: Performed By: #### C BC #### [facility] [address] [place] [address] Dr. Dontae Vallejo Eosinophils/100 WBC (Bld) 4.1 % Normal 0.9-7.0 [facility] Comment on above: Performed By: #### C BC #### [facility] [address] [place] [address] Dr. Dontae Vallejo Erythrocyte distribution width (RBC) [Ratio] 13.1 % Normal 11.0-15.0 [facility] Comment on above: Performed By: #### C BC #### [facility] [address] [place] [address] Dr. Dontae Vallejo Hematocrit (Bld) [Volume fraction] 37.1 % Normal 36.0-48.0 [facility] Comment on above: Performed By: #### C BC #### [facility] [address] [place] [address] Dr. Dontae Vallejo Hemoglobin (Bld) [Mass/Vol] 12.1 g/dL Normal 12.0-16.0 [facility] Comment on above: Performed By: #### C BC #### [facility] [address] [place] [address] Dr. Dontae Vallejo IG # 0.03 10e3/ul Normal 0.00-0.03 [facility] Comment on above: Performed By: #### C BC #### [facility] [address] [place] [address] Dr. Dontae Vallejo IG % 0.3 % Normal 0.0-0.5 [facility] Comment on above: Performed By: #### C BC #### [facility] [address] [place] [address] Dr. Dontae Vallejo LYMPH # 4.5 103/ul Critically high 1.2-3.8 [facility] Comment on above: Performed By: #### C BC #### [facility] [address] [place] [address] Dr. Dontae Vallejo Lymphocytes/100 WBC (Bld) 44.8 % Normal 20.5-60.0 [facility] Comment on above: Performed By: #### C BC #### [facility] [address] [place] [address] Dr. Dontae Vallejo MANUAL DIFF REQ NO Normal [facility] Comment on above: Performed By: #### C BC #### [facility] [address] [place] [address] Dr. Dontae Vallejo MCH (RBC) [Entitic mass] 30.3 pg Normal 26.7-34.0 [facility] Comment on above: Performed By: #### C BC #### [facility] [address] [place] [address] Dr. Dontae Vallejo MCHC (RBC) [Mass/Vol] 32.6 g/dL Normal 29.9-35.2 [facility] Comment on above: Performed By: #### C BC #### [facility] [address] [place] [address] Dr. Dontae Vallejo MCV (RBC) [Entitic vol] 92.8 fL Normal 81.0-99.0 [facility] Comment on above: Performed By: #### C BC #### [facility] [address] [place] [address] Dr. Dontae Vallejo MONO # 0.5 103/ul Normal 0.3-0.8 [facility] Comment on above: Performed By: #### C BC #### [facility] [address] [place] [address] Dr. Dontae Vallejo Monocytes/100 WBC (Bld) 5.3 % Normal 1.7-12.0 [facility] Comment on above: Performed By: #### C BC #### [facility] [address] [place] [address] [address] Dontae Vallejo NEUT # 4.5 103/ul Normal 1.4-6.5 [facility] Comment on above: Performed By: #### C BC #### [facility] [address] [place] [address] [address] Dontae Vallejo Neutrophils/100 WBC (Bld) 44.9 % Normal 43.0-75.0 [facility] Comment on above: Performed By: #### C BC #### [facility] [address] [place] [address] [address] Dontae Vallejo Platelet mean volume (Bld) [Entitic vol] 9.8 fL Normal 9.5-13.5 [facility] Comment on above: Performed By: #### C BC #### [facility] [address] [place] [address] Dr. Dontae Vallejo PLT 251 103/ul Normal 150-450 [facility] Comment on above: Performed By: #### C BC #### [facility] [address] [place] [address] [address] Dontae Vallejo RBC 4.00 106/ul Critically low 4.20-5.40 [facility] Comment on above: Performed By: #### C BC #### [facility] [address] [place] [address] Dr. Dontae Vallejo WBC 10.1 103/ul Normal 4.0-11.0 [facility] Comment on above: Performed By: #### C BC #### [facility] [address] [place] [address] Dr. Dontae Vallejo Covid-19 PCR [facility]on 02-15 SARS-CoV-2 (COVID-19) RNA DEIDRE+probe Ql (Unsp spec) Not detected Normal NOT DETECTED [facility] Comment on above: Result Comment: This test is not yet approved or cleared by the [place] FDA. When there are no FDA-approved or cleared tests available, and other criteria are met, FDA can make tests available under an emergency access mechanism called an Emergency Use Authorization (EUA). The EUA for this test is supported by the Shipping Services Sales Representative of Health and Human Service's (HHS's) declaration [...] consistent with SARS-CoV-2. Performed By: #### C [facility] #### [facility] [address] [place] [address] Dr. Dontae Vallejo PROF CHEM 8 (BAS METB)on Anion gap [Moles/Vol] 10.5 mmol/L Normal [facility] Comment on above: Performed By: #### B MP #### [facility] [address] [place] [address] Dr. Dontae Vallejo Calcium [Mass/Vol] 9.5 mg/dL Normal 8.4-10.2 [facility] Comment on above: Performed By: #### B MP #### [facility] [address] [place] [address] Dr. Dontae Vallejo Chloride [Moles/Vol] 104 mmol/L Normal 98-107 [facility] Comment on above: Performed By: #### B MP #### [facility] [address] [place] [address] Dr. Dontae Vallejo CO2 [Moles/Vol] 26.8 mmol/L Normal 22.0-30.0 [facility] Comment on above: Performed By: #### B MP #### [facility] [address] [place] [address] Dr. Dontae Vallejo Creatinine [Mass/Vol] 1.51 mg/dL Critically high 0.52-1.04 [facility] Comment on above: Performed By: #### B MP #### [facility] [address] [place] [address] [address] Dontae Vallejo EGFR-AF SYRIAN 40 mL/min/1.73m2 Critically low >=60 [facility] Comment on above: Performed By: #### B MP #### [facility] [address] [place] [address] [address] Dontae Vallejo EGFR-NON AF SYRIAN 33 mL/min/1.73m2 Critically low >=60 [facility] Comment on above: Performed By: #### B MP #### [facility] [address] [place] [address] [address] Dontae Vallejo Glucose [Mass/Vol] 145 mg/dL Critically high 74-106 T [facility] Comment on above: Performed By: #### B MP #### [facility] [address] [place] [address] [address] Dontae Vallejo Potassium [Moles/Vol] 4.3 mmol/L Normal 3.4-5.0 [facility] Comment on above: Performed By: #### B MP #### [facility] [address] [place] [address] [address] Dontae Vallejo Sodium [Moles/Vol] 137 mmol/L Normal 137-[address] [facility] Comment on above: Performed By: #### B MP #### [facility] [address] [place] [address] [address] Dontae Vallejo Urea nitrogen [Mass/Vol] 29.0 mg/dL Critically high 7.0-17.0 [facility] Comment on above: Performed By: #### B MP #### [facility] [address] [place] [address] [address] Dontae Vallejo Urea nitrogen/Creatinine [Mass ratio] 19.2 mg/mg Normal [facility] Comment on above: Performed By: #### B MP #### [facility] [address] [place] [address] [address] Dontae Vallejo US FINE NDL ASP W US GDNCEon 02-07-2021 US FINE NDL ASP W US GDNCE Begin Addendum #1 COLLECTED DATE/TIME: 01/24/2021 14:27 EDT Final Diagnosis Report for [facility], [place] (A/B) LEFT AXILLA MASS; FINE NEEDLE [...] 2. Pathology results are pending. Normal [facility] LEUKEMIA/LYMPHOMA PROFILEon 01-31-2021 ANALYSIS AND GATING STRATEGY Comment Normal [facility] Comment on above: Result Comment: 8 co geri analysis with 7-AAD, CD45/SSC gating Performed at: -Y Performed By: #### F LOWL #### [facility] [address] [place], [place] [address] Dr. Dontae Vallejo ASSESSMENT OF LEUKOCYTES Comment Normal [facility] Comment on above: Result Comment: Ghulam a and lambda staining cannot be interpreted due to nonspecific light chain binding. A subset of T cells show CD10 expression. CD4:CD8 ratio 2.3 Analysis of the viable lymphoid cells shows: B cells 18%, T cells 82% Performed at: -Y Performed By: #### F LOWL #### [facility] [address] [place], [place] [address] Dr. Dontae Vallejo COMMENT Comment Normal [facility] Comment on above: Result Comment: Each antibody in this assay was utilized to assess for potential abnormalities of studied cell populations or to characterize identified abnormalities. . This test was developed and its performance characteristics determined by [employer]. It has not been cleared or approved by the U.S. Food and Drug Administration. . The FDA has determined that such clearance or approval is not necessary. This test is used for clinical purposes. It should not be regarded as investigational or for research. Performed at: TG Performed By: #### F LOWL #### [facility] [address] [place] [address] Dr. Dontae Vallejo FLOW COMMENT Comment Normal [facility] Comment on above: Result Comment: Ghulam [...] -Y Performed By: #### F LOWL #### [facility] [address] [place] [address] Dr. Dontae Vallejo FLOW INTERPRETATION Comment Normal [facility] Comment on above: Result Comment: B ce ll clonality cannot be evaluated, T cells with CD10 expression in a small subset, low viability specimen, see comment. Performed at: -Y Performed By: #### F LOWL #### [facility] [address] [place] [address] Dr. Dontae Vallejo PHENOTYPE CHART Comment Normal [facility] Comment on above: Result Comment: CD2 Normal CD3 Normal CD4 Normal CD5 Normal CD7 Normal CD8 Normal CD10 See Text CD11b Normal CD19 Normal CD20 Normal CD23 Normal CD38 Normal CD45 Normal CD56 Normal CD57 Normal [facility]-7 Normal HLA-DR Normal KAPPA See Text LAMBDA See Text Performed at: -Y Performed By: #### F LOWL #### [facility] [address] [place] [address] Dr. Dontae Vallejo RESULTING PATH NAME Comment Normal [facility] Comment on above: Result Comment: Raul Oliveros M.D. Performed at: -Y Performed By: #### F LOWL #### [facility] [address] [place] [address] [address] Dontae Vallejo Specimen type Nom (Spec) Comment Normal [facility] Comment on above: Result Comment: Left axillary mass lymph node Performed at: -Y Performed By: #### F LOWL #### [facility] [address] [place] [address] [address] Dontae Vallejo VIABILITY Comment Normal [facility] Comment on above: Result Comment: 22% This [...] -Y Performed By: #### F LOWL #### [facility] [address] [place] [address] Dr. Dontae Vallejo US EXT NON VASC [...] TENZIN FERGUSON Date: 2021-01-07 16:37 Normal [facility] CBC AUTO DIFFon 11-02-2020 BASO # 0.1 103/ul Normal 0.0-0.1 [facility] Comment on above: Performed By: #### C BC #### [facility] [address] [place] [address] Jose Lacy Basophils/100 WBC (Bld) 0.6 % Normal 0.2-2.0 [facility] Comment on above: Performed By: #### C BC #### [facility] [address] [place], [place] [id number] Jose Bambi EO # 0.4 103/ul Normal 0.0-0.7 [facility] Comment on above: Performed By: #### C BC #### [facility] [address] [place], [place] [id number] Jose Bambi Eosinophils/100 WBC (Bld) 3.7 % Normal 0.9-7.0 [facility] Comment on above: Performed By: #### C BC #### [facility] [address] [place] [address] Jose Bambi Erythrocyte distribution width (RBC) [Ratio] 13.2 % Normal 11.0-15.0 [facility] Comment on above: Performed By: #### C BC #### [facility] [address] [place] [address] Jose Bambi Hematocrit (Bld) [Volume fraction] 36.1 % Normal 36.0-48.0 [facility] Comment on above: Performed By: #### C BC #### [facility] [address] [place] [address] Jose Bambi Hemoglobin (Bld) [Mass/Vol] 11.7 g/dL Critically low 12.0-16.0 [facility] Comment on above: Performed By: #### C BC #### [facility] [address] [place] [address] Jose Bambi IG # 0.03 10e3/ul Normal 0.00-0.03 [facility] Comment on above: Performed By: #### C BC #### [facility] [address] [place] [address] Jose Bambi IG % 0.3 % Normal 0.0-0.5 [facility] Comment on above: Performed By: #### C BC #### [facility] [address] [place], [place] [id number] Jose Bambi LYMPH # 4.4 103/ul Critically high 1.2-3.8 [facility] Comment on above: Performed By: #### C BC #### [facility] [address] [place] [address] Jose Lacy Lymphocytes/100 WBC (Bld) 44.9 % Normal 20.5-60.0 [facility] Comment on above: Performed By: #### C BC #### [facility] [address] [place], [place] [id number] Jose Lacy MANUAL DIFF REQ NO Normal [facility] Comment on above: Performed By: #### C BC #### [facility] [address] [place] [address] Josevlad Lacy MCH (RBC) [Entitic mass] 30.5 pg Normal 26.7-34.0 [facility] Comment on above: Performed By: #### C BC #### [facility] [address] [place] [address] Jose Lacy MCHC (RBC) [Mass/Vol] 32.4 g/dL Normal 29.9-35.2 [facility] Comment on above: Performed By: #### C BC #### [facility] [address] [place] [address] Josevlad Lacy MCV (RBC) [Entitic vol] 94.0 fL Normal 81.0-99.0 [facility] Comment on above: Performed By: #### C BC #### [facility] [address] [place] [address] Jose Lacy MONO # 0.6 103/ul Normal 0.3-0.8 [facility] Comment on above: Performed By: #### C BC #### [facility] [address] [place] [address] Jose Lacy Monocytes/100 WBC (Bld) 5.7 % Normal 1.7-12.0 [facility] Comment on above: Performed By: #### C BC #### [facility] [address] [place] [address] Jose Bambi NEUT # 4.4 103/ul Normal 1.4-6.5 [facility] Comment on above: Performed By: #### C BC #### [facility] [address] [place] [address] Jose Bambi Neutrophils/100 WBC (Bld) 44.8 % Normal 43.0-75.0 [facility] Comment on above: Performed By: #### C BC #### [facility] [address] [place], [place] [address] Jose Lacy Platelet mean volume (Bld) [Entitic vol] 11.3 fL Normal 9.5-13.5 [facility] Comment on above: Performed By: #### C BC #### [facility] [address] [place], [place] [address] Jose Lacy PLT 239 103/ul Normal 150-450 [facility] Comment on above: Performed By: #### C BC #### [facility] [address] [place], [place] [address] Jose Lacy RBC 3.84 106/ul Critically low 4.20-5.40 [facility] Comment on above: Performed By: #### C BC #### [facility] [address] [place], [place] [address] Jose Lacy WBC 9.8 103/ul Normal 4.0-11.0 [facility] Comment on above: Performed By: #### C BC #### [facility] [address] [place], [place] [address] Jose Lacy Vital Signs Date Time Vital Sign Value Performing Clinician Facility 11-10-2024 14:30-0400 Body height 160 cm Jack Rogel MD Work Phone: [facility] 11-10-2024 14:30-0400 Body mass index (BMI) [Ratio] 23.83 kg/m2 Jack Rogel MD Work Phone: [facility] 11-10-2024 14:30-0400 Body weight 61.01 kg Jack Rogel MD Work Phone: [facility] 11-10-2024 14:30-0400 Heart rate 64 /min Jack Rogel MD Work Phone: [facility] 11-10-2024 14:30-0400 SaO2% (BldA) [Mass fraction] 97 % Jack Rogel MD Work Phone: [facility] 11-01-2024 11:42-0400 Body temperature 97.8 [degF] Jack Rogel MD Work Phone: [facility] 11-01-2024 11:42-0400 Diastolic blood pressure 70 mm[Hg] Jack Rogel MD Work Phone: [facility] 11-01-2024 11:42-0400 Heart rate 61 /min Jack Rogel MD Work Phone: [facility] 11-01-2024 11:42-0400 Respiratory rate 16 /min Jack Rogel MD Work Phone: [facility] 11-01-2024 11:42-0400 SaO2% (BldA) [Mass fraction] 96 % Jack Rogel MD Work Phone: [facility] 11-01-2024 11:42-0400 Systolic blood pressure 153 mm[Hg] Jack Rogel MD Work Phone: [facility] 11-01-2024 06:00-0400 Body weight 62 kg Jack Rogel MD Work Phone: [facility] 10-31-2024 15:23-0400 Body height 160.02 cm Jack Rogel MD Work Phone: [facility] 10-30-2024 20:00-0400 Body temperature 98.3 [degF] Jack Rogel MD Work Phone: [facility] 10-30-2024 20:00-0400 Diastolic blood pressure 102 mm[Hg] Jack Rogel MD Work Phone: [facility] 10-30-2024 20:00-0400 Heart rate 62 /min Jack Rogel MD Work Phone: [facility] 10-30-2024 20:00-0400 Respiratory rate 18 /min Jack Rogel MD Work Phone: [facility] 10-30-2024 20:00-0400 SaO2% (BldA) [Mass fraction] 98 % Jack Rogel MD Work Phone: [facility] 10-30-2024 20:00-0400 Systolic blood pressure 172 mm[Hg] Jack Rogel MD Work Phone: [facility] 10-30-2024 16:17-0400 Body height 160.02 cm Jack Rogel MD Work Phone: [facility] 10-30-2024 16:17-0400 Body weight 62.8 kg Jack Rogel MD Work Phone: [facility] 10-26-2024 10:42-0400 Body height 160.02 cm Jack Rogel MD Work Phone: [facility] 10-26-2024 10:42-0400 Body mass index (BMI) [Ratio] 23.9 kg/m2 Jack Rogel MD Work Phone: [facility] 10-26-2024 10:42-0400 Body temperature 97.1 [degF] Jack Rogel MD Work Phone: [facility] 10-26-2024 10:42-0400 Body weight 61.34 kg Jack Rogel MD Work Phone: [facility] 10-26-2024 10:42-0400 Diastolic blood pressure 112 mm[Hg] Jack Rogel MD Work Phone: [facility] 10-26-2024 10:42-0400 Heart rate 73 /min Jack Rogel MD Work Phone: [facility] 10-26-2024 10:42-0400 Respiratory rate 18 /min Jack Rogel MD Work Phone: [facility] 10-26-2024 10:42-0400 SaO2% (BldA) [Mass fraction] 97 % Jack Rogel MD Work Phone: [facility] 10-26-2024 10:42-0400 Systolic blood pressure 182 mm[Hg] Jack Rogel MD Work Phone: [facility] 09-03-2024 15:16-0400 Body height 160 cm Jack Rogel MD Work Phone: [facility] 09-03-2024 15:16-0400 Body mass index (BMI) [Ratio] 25.51 kg/m2 Jack Rogel MD Work Phone: [facility] 09-03-2024 15:16-0400 Body weight 65.32 kg Jack Rogel MD Work Phone: [facility] 09-03-2024 15:16-0400 Diastolic blood pressure 70 mm[Hg] Jack Rogel MD Work Phone: [facility] 09-03-2024 15:16-0400 Heart rate 97 /min Jack Rogel MD Work Phone: [facility] 09-03-2024 15:16-0400 SaO2% (BldA) [Mass fraction] 99 % Jack Rogel MD Work Phone: [facility] 09-03-2024 15:16-0400 Systolic blood pressure 130 mm[Hg] Jack Rogel MD Work Phone: [facility] 07-11-2024 14:19-0400 Body height 160 cm Eloise Galicia MD Work Phone: [facility] 07-11-2024 14:19-0400 Body mass index (BMI) [Ratio] 24.45 kg/m2 Eloise Galicia MD Work Phone: [facility] 07-11-2024 14:19-0400 Body weight 62.6 kg Eloise Galicia MD Work Phone: [facility] 07-11-2024 14:19-0400 Diastolic blood pressure 82 mm[Hg] Eloise Galicia MD Work Phone: [facility] 07-11-2024 14:19-0400 Heart rate 68 /min Eloise Galicia MD Work Phone: [facility] 07-11-2024 14:19-0400 Systolic blood pressure 132 mm[Hg] Eloise Galicia MD Work Phone: [facility] 06-11-2024 11:11-0500 Body height 160.02 cm Jack Rogel MD Work Phone: [facility] 06-11-2024 11:11-0500 Body mass index (BMI) [Ratio] 25.4 kg/m2 Jack Rogel MD Work Phone: [facility] 06-11-2024 11:11-0500 Body temperature 96.3 [degF] Jack Rogel MD Work Phone: [facility] 06-11-2024 11:11-0500 Body weight 65.31 kg Jack Rogel MD Work Phone: [facility] 06-11-2024 11:11-0500 Diastolic blood pressure 80 mm[Hg] Jack Rogel MD Work Phone: [facility] 06-11-2024 11:11-0500 Heart rate 62 /min Jack Rogel MD Work Phone: [facility] 06-11-2024 11:11-0500 SaO2% (BldA) [Mass fraction] 99 % Jack Rogel MD Work Phone: [facility] 06-11-2024 11:11-0500 Systolic blood pressure 120 mm[Hg] Jack Rogel MD Work Phone: [facility] 06-04-2024 19:40-0500 Diastolic blood pressure 83 mm[Hg] Jack Rogel MD Work Phone: [facility] 06-04-2024 19:40-0500 Heart rate 58 /min Jack Rogel MD Work Phone: [facility] 06-04-2024 19:40-0500 Respiratory rate 18 /min Jack Rogel MD Work Phone: [facility] 06-04-2024 19:40-0500 Systolic blood pressure 180 mm[Hg] Jack Rogel MD Work Phone: [facility] 06-04-2024 18:01-0500 Body height 160.02 cm Jack Rogel MD Work Phone: [facility] 06-04-2024 18:01-0500 Body temperature 98.5 [degF] Jack Rogel MD Work Phone: [facility] 06-04-2024 18:01-0500 Body weight 65 kg Jack Rogel MD Work Phone: [facility] 06-04-2024 18:01-0500 SaO2% (BldA) [Mass fraction] 97 % Jack Rogel MD Work Phone: [facility] 06-04-2024 15:07-0500 Body height 160.02 cm Jack Rogel MD Work Phone: [facility] 06-04-2024 15:07-0500 Body mass index (BMI) [Ratio] 25.3 kg/m2 Jack Rogel MD Work Phone: [facility] 06-04-2024 15:07-0500 Body temperature 97.8 [degF] Jack Rogel MD Work Phone: [facility] 06-04-2024 15:07-0500 Body weight 64.86 kg Jack Rogel MD Work Phone: [facility] 06-04-2024 15:07-0500 Diastolic blood pressure 92 mm[Hg] Jack Rogel MD Work Phone: [facility] 06-04-2024 15:07-0500 Heart rate 60 /min Jack Rogel MD Work Phone: [facility] 06-04-2024 15:07-0500 Respiratory rate 14 /min Jack Rogel MD Work Phone: [facility] 06-04-2024 15:07-0500 SaO2% (BldA) [Mass fraction] 98 % Jack Rogel MD Work Phone: [facility] 06-04-2024 15:07-0500 Systolic blood pressure 163 mm[Hg] Jack Rogel MD Work Phone: [facility] 05-29-2024 10:55-0500 Body height 160 cm Toi Horne DPM Work Phone: [facility] 05-29-2024 10:55-0500 Body mass index (BMI) [Ratio] 25.51 kg/m2 Toi Horne DPM Work Phone: [facility] 05-29-2024 10:55-0500 Body weight 65.32 kg Toi Horne DPM Work Phone: [facility] 05-29-2024 10:55-0500 Respiratory rate 18 /min Toi Horne DPM Work Phone: [facility] 05-27-2024 13:39-0500 Body height 160 cm Jack Rogel MD Work Phone: [facility] 05-27-2024 13:39-0500 Body mass index (BMI) [Ratio] 24.8 kg/m2 Jack Rogel MD Work Phone: [facility] 05-27-2024 13:39-0500 Body weight 63.5 kg Jack Rogel MD Work Phone: [facility] 04-23-2024 11:38-0500 Heart rate 74 /min Jack Rogel MD Work Phone: [facility] 04-23-2024 11:38-0500 SaO2% (BldA) [Mass fraction] 97 % Jack Rogel MD Work Phone: [facility] 04-04-2024 14:57-0500 Body height 160.02 cm Jack Rogel MD Work Phone: [facility] 04-04-2024 11:32-0500 Body temperature 97.8 [degF] Jack Rogel MD Work Phone: [facility] 04-04-2024 11:32-0500 Diastolic blood pressure 60 mm[Hg] Jack Rogel MD Work Phone: [facility] 04-04-2024 11:32-0500 Heart rate 62 /min aJck Rogel MD Work Phone: [facility] 04-04-2024 11:32-0500 Respiratory rate 18 /min Jack Rogel MD Work Phone: [facility] 04-04-2024 11:32-0500 SaO2% (BldA) [Mass fraction] 95 % Jack Rogel MD Work Phone: [facility] 04-04-2024 11:32-0500 Systolic blood pressure 126 mm[Hg] Jack Rogel MD Work Phone: [facility] 04-04-2024 05:03-0500 Body weight 64.5 kg Jack Rogel MD Work Phone: [facility] 03-11-2024 14:40-0500 Body height 160 cm Jack Rogel MD Work Phone: [facility] 03-11-2024 14:40-0500 Body mass index (BMI) [Ratio] 24.8 kg/m2 Jack Rogel MD Work Phone: [facility] 03-11-2024 14:40-0500 Body weight 63.5 kg Jack Rogel MD Work Phone: [facility] 03-11-2024 14:40-0500 Diastolic blood pressure 78 mm[Hg] Jack Rogel MD Work Phone: [facility] 03-11-2024 14:40-0500 Heart rate 62 /min Jack Rogel MD Work Phone: [facility] 03-11-2024 14:40-0500 SaO2% (BldA) [Mass fraction] 98 % Jack Rogel MD Work Phone: [facility] 03-11-2024 14:40-0500 Systolic blood pressure 130 mm[Hg] Jack Rogel MD Work Phone: [facility] 08-09-2023 08:30-0400 Body height [address] 08-09-2023 08:30-0400 Body mass index (BMI) [Ratio] 25.86 kg/m2 [address] 08-09-2023 08:30-0400 Body weight 66.[address] 08-09-2023 08:30-0400 Diastolic blood pressure 88 mm[Hg] [address] 08-09-2023 08:30-0400 Systolic blood pressure 134 mm[Hg] [address] 07-02-2023 13:19-0400 Diastolic blood pressure 90 mm[Hg] Eloise Galicia MD Work Phone: [facility] 07-02-2023 13:19-0400 Systolic blood pressure 138 mm[Hg] Eloise Galicia MD Work Phone: [facility] 07-02-2023 13:18-0400 Body height 160 cm Eloise Galicia MD Work Phone: [facility] 07-02-2023 13:18-0400 Body mass index (BMI) [Ratio] 25.86 kg/m2 Eloise Galicia MD Work Phone: [facility] 07-02-2023 13:18-0400 Body weight 66.22 kg Eloise Galicia MD Work Phone: [facility] 07-02-2023 13:18-0400 Heart rate 80 /min Eloise Galicia MD Work Phone: [facility] 05-14-2023 13:52-0500 Body height 160 cm Jack Rogel MD Work Phone: [facility] 05-14-2023 13:52-0500 Body mass index (BMI) [Ratio] 26.57 kg/m2 Jack Rogel MD Work Phone: [facility] 05-14-2023 13:52-0500 Body weight 68.04 kg Jack Rogel MD Work Phone: [facility] 05-14-2023 13:52-0500 Diastolic blood pressure 70 mm[Hg] Jack Rogel MD Work Phone: [facility] 05-14-2023 13:52-0500 Heart rate 68 /min Jack Rogel MD Work Phone: [facility] 05-14-2023 13:52-0500 SaO2% (BldA) [Mass fraction] 98 % Jack Rogel MD Work Phone: [facility] 05-14-2023 13:52-0500 Systolic blood pressure 122 mm[Hg] Jack Rogel MD Work Phone: [facility] 03-12-2022 12:15-0500 Body height 160.02 cm Gabi Gaona Other [employer] Other 03-12-2022 12:15-0500 Body mass index (BMI) [Ratio] 26.57 kg/m2 Gabi Gaona Other [employer] Other 03-12-2022 12:15-0500 Body temperature 97.8 [degF] Gabi Gaona Other [employer] Other 03-12-2022 12:15-0500 Body weight 68.04 kg Gabi Gaona Other [employer] Other 03-12-2022 12:15-0500 Diastolic blood pressure 68 mm[Hg] Gabi Gaona Other [employer] Other 03-12-2022 12:15-0500 Respiratory rate 18 /min Gabi Gaona Other [employer] Other 03-12-2022 12:15-0500 SaO2% (BldA) [Mass fraction] 98 % Gabi Gaona Other [employer] Other 03-12-2022 12:15-0500 Systolic blood pressure 123 mm[Hg] Gabi Gaona Other [employer] Other 01-31-2022 15:09-0400 Body height 158.9 cm Simin Lama MD Work Phone: [facility] 01-31-2022 15:09-0400 Body temperature 97.3 [degF] Simin Lama MD Work Phone: [facility] 01-31-2022 15:09-0400 Body weight 70.03 kg Simin Lama MD Work Phone: [facility] 01-31-2022 15:09-0400 Diastolic blood pressure 65 mm[Hg] Simin Lama MD Work Phone: [facility] 01-31-2022 15:09-0400 Heart rate 62 /min Simin Lama MD Work Phone: [facility] 01-31-2022 15:09-0400 Respiratory rate 16 /min Simin Lama MD Work Phone: [facility] 01-31-2022 15:09-0400 SaO2% (BldA) [Mass fraction] 100 % Simin Lama MD Work Phone: [facility] 01-31-2022 15:09-0400 Systolic blood pressure 142 mm[Hg] Simin Lama MD Work Phone: [facility] 07-28-2021 14:24-0400 Body height 158.9 cm Drake Anand MD Work Phone: [facility] 07-28-2021 14:24-0400 Body temperature 97.9 [degF] Drake Anand MD Work Phone: [facility] 07-28-2021 14:24-0400 Body weight 69.94 kg Drake Anand MD Work Phone: [facility] 07-28-2021 14:24-0400 Diastolic blood pressure 74 mm[Hg] Drake nAand MD Work Phone: [facility] 07-28-2021 14:24-0400 Heart rate 56 /min Drake Anand MD Work Phone: [facility] 07-28-2021 14:24-0400 Respiratory rate 18 /min Drake Anand MD Work Phone: [facility] 07-28-2021 14:24-0400 SaO2% (BldA) [Mass fraction] 98 % Drake Anand MD Work Phone: [facility] 07-28-2021 14:24-0400 Systolic blood pressure 150 mm[Hg] Drake Anand MD Work Phone: [facility] Encounters Encounter Date Encounter Type Care Provider Facility Start: 11-10-2024 End: 11-10-2024 Transitional care manage srvc 7 day discharge Jack Rogel MD Work Phone: [address] Medicine Comment on above: Statin myopathy (Ellen julius Dx); Takotsubo cardiomyopathy; NSTEMI (non-ST elevated myocardial infarction) (HCC); Acute UTI; RAZA (acute kidney injury); Encounter for examination following treatment at hospital; Primary hypertension ; PVD (peripheral vascular disease); Pararenal abdominal aortic aneurysm (AAA) without rupture; Chronic kidney disease, stage 3b (CMS-HCC); Polypharmacy Start: 11-10-2024 End: 11-10-2024 ambulatory JACK ROGEL Not Available Start: 11-10-2024 End: 11-10-2024 Bamboo flowsheet Jack Rogel MD Work Phone: [facility] Start: 11-10-2024 End: 11-10-2024 Bamboo flowsheet Jack Rogel MD Work Phone: [address] Start: 10-30-2024 Non-patient / Non-visit Joan moran MD -[facility] Work Phone: Start: 10-30-2024 End: 11-01-2024 Evaluation and management of inpatient Cirilo Rascon MD -[facility] Work Phone: Start: 10-29-2024 End: 10-29-2024 ambulatory Jack Rogel MD Work Phone: [facility] Work Phone: Start: 10-29-2024 End: 10-29-2024 Departed Referred Valdo Ospina DO -[facility] Start: 10-29-2024 End: 10-29-2024 Clinisync Result Encounter Generic External Data Provider [facility] External Department Unsolicited Start: 10-29-2024 End: 10-29-2024 Clinisync Result Encounter Generic External Data Provider [facility] External Department Unsolicited Start: 10-26-2024 End: 10-26-2024 Departed Referred Casi Holloway MACHINE INKER -Lab [facility] Work Phone: Start: 10-26-2024 End: 10-26-2024 ambulatory Jack Rogel MD Work Phone: [facility] Work Phone: Start: 10-26-2024 End: 10-26-2024 Patient encounter procedure Casi Holloway [facility]ACH[facility] Work Phone: Start: 10-07-2024 End: 10-07-2024 Bamboo flowsheet Mehrdad Jackson PA Work Phone: [facility] Start: 10-07-2024 End: 10-07-2024 Bamboo flowsheet Mehrdad J Manuel PA Work Phone: [facility] Start: 10-07-2024 End: 10-07-2024 ambulatory MEHRDAD JACKSON Not Available Start: 10-07-2024 End: 10-07-2024 Office outpatient visit 15 minutes Mehrdad LEACH Work Phone: [facility] Comment on above: Right leg pain [...] Start: 09-24-2024 End: 09-26-2024 ambulatory [facility]ENZIN HSU [facility] Start: 09-24-2024 End: 09-26-2024 Subsequent hospital visit by physician Tenzin Hsu MD Work Phone: [facility] Comment on above: Infrarenal abdominal aortic aneurysm (AAA) without rupture 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) Start: 09-19-2024 End: 09-19-2024 Patient encounter procedure Brian Mishra MD Work Phone: [facility] Comment on above: Pain [...] Ischemic cardiomyopathy (CMS/HCC); Coronary artery disease involving [place] coronary artery of [place] heart without angina pectoris (CMS/HCC); Pararenal abdominal aortic aneurysm (AAA) without rupture (CMS/HCC); Chronic kidney disease, stage 3b (HCC) (CMS/HCC); Type 2 diabetes mellitus with stage 3b chronic kidney disease, without long-term current use of insulin (HCC) (CMS/HCC); Mixed dyslipidemia (CMS/HCC) Start: 09-03-2024 End: 09-03-2024 ambulatory JACK ROGEL Not Available Start: 09-03-2024 End: 09-03-2024 Telephone encounter Brian Mishra MD Work Phone: [facility] Start: 09-01-2024 End: 09-01-2024 ambulatory KAT PALOMARES [facility] Start: 09-01-2024 End: 09-01-2024 Telemedicine consultation with patient Kat Palomares PharmD Work Phone: [facility] Comment on above: Paroxysmal atrial fi brillation (Multi); Anticoagulated Start: 08-28-2024 End: 08-28-2024 Telephone encounter Jr. Giorgio Barajas DO Work Phone: [facility] Comment on above: Referral Start: 08-27-2024 End: 08-27-2024 Telephone encounter Jack Rogel MD Work Phone: [facility] Start: 07-28-2024 End: 07-28-2024 ambulatory KAT PALOMARES [facility] Start: 07-28-2024 End: 07-28-2024 Telemedicine consultation with patient Kat Palomares PharmD Work Phone: [facility] Comment on above: Paroxysmal atrial fi brillation (Multi); Anticoagulated Start: 07-11-2024 End: 07-11-2024 Office outpatient visit 25 minutes Eloise Galicia MD Work Phone: [facility] Comment on above: Paroxysmal atrial fi brillation (Multi) (Primary Dx); Anticoagulated; Primary hypertension; Aortic aneurysm, unspecified portion of aorta, unspecified whether ruptured; Mixed hyperlipidemia; Type 2 MN (myocardial infarction) (Multi); Stage 3b chronic kidney disease (Multi); BMI 24.0-24.9, adult; Acute on chronic left systolic heart failure Start: 07-11-2024 End: 07-11-2024 ambulatory [facility] Start: 07-09-2024 End: 07-09-2024 Clinisync Result Encounter Generic External Data Provider [facility] External Department Unsolicited Start: 07-09-2024 End: 07-09-2024 Clinisync Result Encounter Generic External Data Provider [facility] External Department Unsolicited Start: 07-09-2024 End: 07-09-2024 ambulatory [facility] Start: 07-09-2024 End: 07-09-2024 Subsequent hospital visit by physician Charley Cash Echo/Vas Room 2 [facility] Comment on above: Acute on chronic lef t systolic heart failure; Discoloration of skin of foot; Abdominal aortic aneurysm, without rupture, unspecified ([facility]-HCC) Start: 06-25-2024 End: 06-25-2024 ambulatory GIORGIO YU Not Available Start: 06-25-2024 End: 06-25-2024 Office outpatient visit 15 minutes Jr. Giorgio Barajas DO Work Phone: [facility] Comment on above: Right leg weakness; Acute pain of right knee; Numbness Start: 06-11-2024 End: 06-11-2024 ambulatory Jack Rogel MD Work Phone: [facility] Work Phone: Start: 06-11-2024 End: 06-11-2024 Patient encounter procedure Jack Rogel MD Work Phone: [facility] Work Phone: Start: 06-04-2024 End: 06-04-2024 Emergency department patient visit Jack Rogel MD Work Phone: [facility]gency [facility] Work Phone: Start: 06-04-2024 End: 06-04-2024 ambulatory Jack Rogel MD Work Phone: [facility] Work Phone: Start: 06-04-2024 End: 06-04-2024 Patient encounter procedure Jack Rogel MD Work Phone: [facility] Work Phone: Start: [...] encounter procedure Jack Rogel MD Work Phone: [facility] Work Phone: Start: 05-19-2024 End: 05-19-2024 ambulatory Jack Rogel MD Work Phone: [facility] Work Phone: Start: 05-19-2024 End: 05-19-2024 ambulatory [facility] Start: 04-14-2024 End: 04-14-2024 Transitional [...] Available Start: 04-14-2024 End: 04-14-2024 Bamboo flowsheet aJck Rogel MD Work Phone: [facility] Start: 04-14-2024 End: 04-14-2024 Bamboo flowsheet Jack Rogel MD Work Phone: [facility] Start: 04-04-2024 End: 04-04-2024 Orders Only Jack Rogel MD Work Phone: [facility] Comment on above: Other cardiomyopathy (CMS/HCC) (Primary Dx) Start: 04-02-2024 Non-patient / Non-visit Jack Rogel MD [facility] Work Phone: Start: 04-02-2024 End: 04-04-2024 Evaluation and management of inpatient Jack Rogel MD Work Phone: [facility] Work Phone: Start: 03-11-2024 End: 03-11-2024 [...] 03-11-2024 ambulatory JACK ROGEL Not Available Start: 08-09-2023 End: 08-09-2023 Subsequent hospital visit by physician Charley Cash Echo/Vasc Room 2 [facility] Comment on above: History of MN (myoca rdial infarction); Acute arterial ischemic stroke, multifocal, posterior circulation, right (Multi) Start: 08-09-2023 End: 08-09-2023 ambulatory [facility] Start: 07-02-2023 End: 07-02-2023 Office consultation new/estab patient 80 min Eloise Galicia MD Work Phone: [facility] Comment on above: Paroxysmal atrial fi brillation (CMS/HCC); History of MN (myocardial infarction); Acute arterial ischemic stroke, multifocal, [...] cerebral infarction (CMS/HCC); Coronary artery disease involving k[place]zeb[place] coronary artery of [place] heart without angina pectoris (CMS/HCC); Pulmonary hypertension, [...] ambulatory DO Jorge Luis Whitehead Work Phone: [facility] Work Phone: Start: 05-15-2022 End: 05-15-2022 Patient encounter procedure Jorge Luis Amarojr [facility] Work Phone: Start: 03-12-2022 End: 03-12-2022 ambulatory Gabi Gaona Other [employer] Other Start: 03-12-2022 Office outpatient ne w 20 minutes Gabi Gaona [facility] Start: 02-13-2022 Telephone encounter Shiva Bess Hematology/Oncology Comment on above: Appointment Start: 01-31-2022 End: 01-31-2022 ambulatory SIMIN LAMA Facility:[facility] Start: 01-31-2022 End: 01-31-2022 ambulatory Simin Lama MD Work Phone: Hematology/Oncology Comment on above: 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 Start: 03-19-2021 Encounter for preprocedural cardiovascular examination DR TIM NIÑO [facility] Start: 03-19-2021 Encounter for preprocedural laboratory examination DR TIM NIÑO [facility] Start: 03-18-2021 End: 03-18-[address] TIM NIÑO Facility:H1 Start: 03-15-[address] TIM NIÑO Fac ility:H1 Start: 03-14-2021 End: 03-15-[address] TIM NIÑO Facility:[facility]1 Start: 03-14-2021 End: 03-15-2021 Encounter for preprocedural cardiovascular examination DR TIM NIÑO Facility:H1 Start: 01-24-2021 End: 01-24-[address] JULIUS LARIOS Facility:[facility]1 Start: 01-07-2021 End: 01-08-[address] JULIUS LARIOS Facility:[facility]1 Start: 11-02-2020 End: 11-03-[address] DOCTOR ADAME Facility:H1 Start: 07-08-2018 Patient encounter procedure RIAN ROSS Facility:3 Procedures Date Procedure Procedure Detail Performing Clinician Start: 10-29-2024 URINE CULTURE - [facility] Ge neric External Data Provider Start: 10-29-2024 Urine culture Jack jackson MD Work Phone: Start: 10-26-2024 Urine culture Jack jackson MD Work Phone: Start: 10-07-2024 Arthrocentesis aspir &/inj major jt/bursa [...] Medicare Annual Wellness (AWV) [facility] Start: 05-19-[address] [facility] Start: 03-19-2025 Glaucoma screening Diabetes: Retinopathy Screening [facility] Start: 03-04-2025 Urine screening for protein [facility] Start: 03-02-2025 End: 03-02-2025 Telemedicine consultation with patient 03/02/2025 1:40 PM EST Telemedicine [facility] [address] [place] [phone] Kat Palomares, PharmD [address] [place] [address] [facility] Start: 12-16-2024 End: 12-16-2024 Patient encounter procedure 12/16/2024 2:30 PM EDT Office Visit [facility] Office [address] [phone] Eloise Galicia MD [address] [place] [id number] [facility] Office Building Start: 12-15-2024 Influenza vaccination Influenza Vaccine (#1) [facility] Start: 11-10-2024 End: 11-10-2024 Patient encounter procedure 11/10/2024 2:30 PM EDT Office Visit [place] [address] [facility] [address] [place] [phone] Jack Rogel MD [address] [place] [address] (Fax) Encounter for examination following treatment at hospital; NSTEMI (non-ST elevated myocardial infarction) (HCC); Takotsubo cardiomyopathy; Primary hypertension ; PVD (peripheral vascular disease); Pararenal abdominal aortic aneurysm (AAA) without rupture; Acute UTI; RAZA (acute kidney injury); Chronic kidney disease, stage 3b ([facility]-HCC); Polypharmacy [place] [address] [facility] Comment on above: Encounter for examination following elder tment at hospital; NSTEMI (non-ST elevated myocardial infarction) ([facility]); Takotsubo cardiomyopathy; Primary hypertension ; PVD (peripheral vascular disease); Pararenal abdominal aortic aneurysm (AAA) without rupture; Acute UTI; RAZA (acute kidney injury); Chronic kidney disease, stage 3b ([facility]); Polypharmacy Start: 11-01-2024 [facility] Start: 10-31-2024 Radionuclide myocardial perfusion stress study NM sue perf SPECT rest & str [facility] Start: 10-31-2024 End: 10-31-2024 [facility] Start: 10-30-2024 Physical therapy procedure [facility] Start: 10-30-2024 Referral to sales and service consultant [facility] Start: 10-30-2024 Referral to occupational therapist [facility] Start: 10-30-2024 Hospital admission [facility] Start: 10-30-2024 [facility] Start: 10-30-2024 [facility] Start: 10-30-2024 Referral to Security Site Supervisor [facility] Start: 10-30-2024 Catheterization of left heart CL *Left Heart Cath & Possible PCI [facility] Start: 10-29-2024 Urine culture [facility] Start: 10-29-2024 Bacteria identified in Urine by Culture Urine Culture [facility] Start: 10-27-2024 Urine culture [facility] Start: 10-26-2024 Bacteria identified in Urine by Culture Urine Culture [facility] Start: 10-21-2024 End: 10-21-2024 Patient encounter procedure 10/21/2024 11:15 AM EDT Office Visit [facility] [address] [place] [phone] Mehrdad Jackson PA [address] [facility] [address] [place] [address] [facility] Start: 10-07-2024 End: 10-07-2025 XR Lumbar spine Views W flexion and W extension XR lumbar spine 4+ views w flexion extension Imaging Routine Lumbar radiculopathy, right Expected: 10/07/2024 (Approximate), Expires: 10/07/2025 [facility] Work Phone: Comment on above: Expected: 10/07/2024 (Approximate), Expi res: 10/07/2025 Start: 10-07-2024 End: 10-07-2024 Patient encounter procedure 10/07/2024 8:45 AM EDT Office Visit [facility] [address] [place] [phone] Mehrdad Jackson PA [address] [place] [address] [facility] Start: 09-29-2024 End: 09-29-2024 Patient encounter procedure [facility] Comment on above: F/U from 08/06/24 w/Studies AAA,PAD-CTA, vasc st udy 09/24/24 Start: 09-25-2024 COVID-19 Vaccine ( season) COVID-19 Vaccine () [facility] Start: 09-25-2024 COVID-19 Vaccine ( season) COVID-19 Vaccine () [facility] Start: 09-03-2024 End: 09-03-2024 Patient encounter procedure 09/03/2024 2:30 PM EDT Office Visit [facility] [address] [facility] [address] [place] [address] Jack Rogel MD [address] [place] [address] (Fax) [facility] Start: 09-01-2024 Hemoglobin A1c measurement Diabetes: Hemoglobin A1C [facility] Start: 09-01-2024 End: 09-01-2024 Telemedicine consultation with patient 09/01/2024 1:40 PM EDT Telemedicine [facility] [address] [place] [phone] Kat Palomares, PharmD [address] [place] [address] [facility] Start: 08-06-2024 End: 08-06-2024 Patient encounter procedure 08/06/2024 1:15 PM EDT Office Visit [facility] [address] [place] [phone] Jr. Giorgio Barajas, DO [address] [facility] [address] [place] [address] [facility] Start: 07-28-2024 DIABETES SCREEN DIABETES SCREEN [facility] Start: 07-28-2024 Diabetes Screening Diabetes Screening [facility] Start: 07-16-2024 End: 07-16-2024 Patient encounter procedure 07/16/2024 10:00 AM EDT Office Visit [facility] [address] [place] [phone] Jr. Giorgio Barajas, DO [address] [facility] [address] [place] [address] [facility] Start: 07-11-2024 End: 07-11-2024 Patient encounter procedure 07/11/2024 2:00 PM EDT Office [facility] [address] [facility] [address] [place] [address] Eloise Galicia MD [address] [facility] [address] [place] [address] [facility] Start: 06-25-2024 End: 06-25-2025 EMG AND NERVE CONDUCTION STUDY EMG AND NERVE CONDUCTION STUDY Neurology Routine Numbness Expected: 06/25/2024 (Approximate), Expires: 06/25/2025 [facility] Work Phone: Comment on above: Expected: 06/25/2024 (Approximate), Expi res: 06/25/2025 Start: 06-04-2024 [facility] Start: 06-04-2024 Ankle brachial pressure [facility] Start: 06-04-2024 Hemoglobin A1c measurement Diabetes: Hemoglobin A1C [facility] Start: 05-27-2024 End: 05-27-2024 Patient encounter procedure 05/27/2024 1:45 PM EST Office Visit [facility] [address] [facility] [address] [place] [address] Jack Rogel MD [address] [place] [address] (Fax) Toe cyanosis; Decreased pedal pulses; Type 2 diabetes mellitus with stage 3b chronic kidney disease, without long-term current use of insulin (HCC) ([facility]/HCC); Polypharmacy [facility] Comment on above: Toe cyanosis; Decreased pedal pulses; Type 2 diabetes mellitus with stage 3b chronic kidney disease, without long-term current use of insulin (HCC) ([facility]); Polypharmacy Start: 05-14-2024 Medicare Annual Wellness (AWV) Medicare Annual Wellness (AWV) [facility] Start: 05-01-2024 End: 05-01-2024 Patient encounter procedure 05/01/2024 1:20 PM EST Office Visit [facility] [address] [facility] 120 [place] [address] Toi Horne DPM [address] [address] [facility] Start: 04-16-2024 Annual Wellness Visit (Medicare Advantage) Annual Wellness Visit (Medicare Advantage) [facility] Start: 04-14-2024 End: 04-14-2024 Patient encounter procedure 04/14/2024 2:30 PM EST Office Visit [facility] [address] [facility] [address] [place] [address] Jack Rogle MD [address] [place] [address] (Fax) Encounter for examination following treatment at hospital [facility] Comment on above: Encounter for examination following elder tment at hospital Start: 04-11-2024 DIABETES SCREEN DIABETES SCREEN [facility] Start: 04-04-2024 [facility] Start: 04-02-2024 Hospital admission [facility] Start: 04-02-2024 Fluoroscopy of Left Heart using Low Osmolar Contrast Fluoroscopy of Left Heart using Low Osmolar Contrast [facility] Start: 04-02-2024 Fluoroscopy of Multiple Coronary Arteries using Low Osmolar Contrast Fluoroscopy of Multiple Coronary Arteries using Low Osmolar Contrast [facility] Start: 04-02-2024 Measurement of Cardiac Sampling and Pressure, Left Heart, Percutaneous Approach Measurement of Cardiac Sampling and Pressure, Left Heart, Percutaneous Approach [facility] Start: 03-11-2024 End: 03-11-2025 US.doppler Extremity arteries - bilateral for physiologic artery study at rest and with exercise VASC US PVR/SEGMENTAL PRESSURES LOWER Imaging Routine Primary hypertension (CMS/HCC) Chronic kidney disease, stage 3b (HCC) (CMS/HCC) Toe cyanosis Decreased pedal pulses Expected: 03/11/2024, Expires: 03/11/2025 [facility] Work Phone: Comment on above: Expected: 03/11/2024, Expires: Start: 12-16-2023 Covid-19 Vaccine ( season) Covid-19 Vaccine () [facility] Start: 12-16-2023 Influenza [facility] Start: 09-24-2023 End: 09-24-2023 Patient encounter procedure 09/24/2023 2:00 PM EDT Office Visit [facility] [address] [facility] [place] [address] Jack Rogel MD [address] [place] [address] [facility] Start: 08-16-2023 End: 08-16-2023 Patient encounter procedure 08/16/2023 1:00 PM EDT Office [facility] [address] [facility] [address] [place] [address] Eloise Galicia MD [address] [facility] [address] [place] [address] [facility] Start: 07-26-2023 End: 07-26-2023 Patient encounter procedure 07/26/2023 1:30 PM EDT [facility] [address] [facility] [address] [place] [address] [facility] Start: 07-02-2023 End: 07-01-2025 US Heart Transthoracic Transthoracic Echo Complete Echocardiography Routine History of MN (myocardial infarction) Acute arterial ischemic stroke, multifocal, posterior circulation, right (CMS/HCC) Expected: 07/02/2023 (Approximate), Expires: 07/01/2025 [facility] Service Area Work Phone: Comment on above: Expected: 07/02/2023 (Approximate), Expi res: 07/01/2025 Start: 06-15-2023 Hemoglobin A1c measurement Diabetes: Hemoglobin A1C [facility] Start: 05-26-2023 COVID-19 Vaccine (2022- season) COVID-19 Vaccine () 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 Work Phone: Comment on above: Expected: 06/03/2022 (Approximate), Expi res: 08/03/2022 Start: 05-12-2022 Adult depression screening assessment DEPRESSION SCREENING [facility] Start: 04-16-2022 ADVANCE DIRECTIVE DISCUSSION ADVANCE DIRECTIVE DISCUSSION [facility] Start: 04-16-2022 DEPRESSION ASSESSMENT DEPRESSION ASSESSMENT [facility] Start: 02-14-2022 End: 03-02-2023 Diagnostic mammography computer-aided detcj uni 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 Work Phone: Comment on above: Expected: 02/14/2022, Expires: Start: 12-15-2021 Influenza vaccination [facility] Start: 06-07-2021 COVID-19 VACCINE (4 - Booster for Pfizer series) COVID-19 VACCINE (4 - Booster for Pfizer series) [facility] Start: 04-16-2021 ADVANCE DIRECTIVE DISCUSSION ADVANCE DIRECTIVE DISCUSSION [facility] Start: 04-16-2021 DEPRESSION ASSESSMENT DEPRESSION ASSESSMENT [facility] Start: 04-01-2021 COVID-19 VACCINE (4 - Booster for Pfizer series) COVID-19 VACCINE (4 - Booster for Pfizer series) [facility] Start: 2016 Respiratory Syncytial Virus (RSV) or age 60 yrs+ (1 - 1-dose 75+ series) Respiratory Syncytial Virus (RSV) or age 60 yrs+ (1 - 1-dose 75+ series) [facility] Start: 2016 RSV High Risk: (Elderly (60+) or Population) (1 - 1-dose 75+ series) RSV High Risk: (Elderly (60+) or Population) (1 - 1-dose 75+ series) [facility] Start: 2016 RSV Vaccine (1 - 1-dose 75+ series) RSV Vaccine (1 - 1-dose 75+ series) [facility] Start: 2006 BONE DENSITY BONE DENSITY [facility] Start: 2006 Screening for osteoporosis Bone Density Screening [facility] Start: 2001 RSV patients and/or patients aged 60+ years (1 - 1-dose 60+ series) RSV patients and/or patients aged 60+ years (1 - 1-dose 60+ series) [facility] Start: 1996 Screening for osteoporosis DEXA (modify frequency per FRAX score) [facility] Start: 1991 Shingles vaccine (1 of 2) Shingles vaccine (1 of 2) [facility] Start: 1991 SHINGRIX VACCINE (1 of 2) SHINGRIX VACCINE (1 of 2) [facility] Start: 1991 Zoster Vaccines (1 of 2) Zoster Vaccines (1 of 2) [facility] Start: 1963 DTaP/Tdap/Td Vaccines (1 - Tdap) DTaP/Tdap/Td Vaccines (1 - Tdap) [facility] Start: 1960 DTaP/Tdap/Td vaccine (1 - Tdap) DTaP/Tdap/Td vaccine (1 - Tdap) [facility] Start: 1960 Urine microalbumin profile [facility] Start: 1959 Anxiety Screening Anxiety Screening [facility] Start: 1959 Depression Screening Depression Screening [facility] Start: 1959 Diabetes mellitus screening Diabetes Screening [facility] Start: 1953 Depression Screen Depression Screen [facility] Start: 1951 Lipid panel Lipids [facility] Start: 1941 Creatinine measurement Creatinine Level [facility] Start: 1941 Lipid panel Lipid Panel [facility] Start: 1941 Medicare Annual Wellness Visit Medicare Annual Wellness Visit (AWV) [facility] Start: 1941 Potassium measurement Potassium Level [facility] Start: 1941 Screening for osteoporosis Bone Density Scan [facility] Start: 1941 Thyroid stimulating hormone measurement TSH Level [facility] Albumin/Globulin ratio [facility] Anion gap measurement [facility] aPTT in Platelet poo r plasma by Coagulation assay [facility] aPTT in Platelet poo r plasma by Coagulation assay [facility] Basophils [#/volume] in Blood by Automated count [facility] Basophils/100 leukoc ytes in Blood by Automated count [facility] Calculated LDL cholesterol level [facility] End: 07-28-2022 CBC W Auto Differential panel - Blood CBC + DIFF Lab Routine 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 Work Phone: Comment on above: 1 Occurrences starting 05/15/2022 until 06/14/2023 Eosinophils/100 leukocytes in Blood by Automated count [facility] Erythrocyte distribu tion width [Ratio] by Automated count [facility] Erythrocytes [#/volu me] in Blood [facility] Globulin [Mass/volum e] in Serum [facility] Glucose measurement estimated from glycated hemoglobin [facility] Hematocrit [Volume Fraction] of Blood [facility] Hemoglobin [Mass/vol ume] in Blood [facility] Hemoglobin A1c/Hemoglobin.total in Blood [facility] INR in Platelet poor plasma by Coagulation assay [facility] INR in Platelet poor plasma by Coagulation assay [facility] Leukocytes [#/volume ] corrected for nucleated erythrocytes in Blood by Automated coun [facility] Leukocytes [#/volume ] in Blood [facility] Lymphocytes [#/volum e] in Blood by Automated count [facility] Lymphocytes/100 leukocytes in Blood by Automated count [facility] MCH [Entitic mass] b y Automated count [facility] MCHC [Mass/volume] b y Automated count [facility] MCV [Entitic volume] by Automated count [facility] Monocytes [#/volume] in Blood by Automated count [facility] Monocytes/100 leukoc ytes in Blood by Automated count [facility] Neutrophils [#/volum e] in Blood by Automated count [facility] Neutrophils/100 leukocytes in Blood by Automated count [facility] Nucleated erythrocyt es [Presence] in Blood by Automated count [facility] Patient Education [facility] Work Phone: Patient referral [facility] Work Phone: Platelet mean volume [Entitic volume] in Blood by Automated count [facility] Platelets [#/volume] in Blood [facility] Prothrombin time (PT) [facility] Prothrombin time (PT) [facility] End: 08-27-2022 Screening mammography bi 2-view breast inc cad DANIELLE SCREENING Radiology Routine 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 Work Phone: Comment on above: 1 Occurrences starting 07/28/2021 until 08/27/2022 Urine culture [place] URINE CULTURE - [facility] URINE CULTU RE - [facility] Lab Routine 10/29/2024 7:14 PM EDT [facility] US Abdominal Aorta f or screening Vascular US Abdominal Aorta Aneurysm AAA Screening Vascular Ultrasound Routine Acute on chronic left systolic heart failure Discoloration of skin of foot Abdominal aortic aneurysm, without rupture, unspecified ([facility]) 07/09/2024 2:02 PM EDT [facility] Service Area Work Phone: End: 06-14-2023 Us breast uni real time with image limited [facility] Work Phone: Comment on above: 1 Occurrences starting 05/15/2022 until 06/14/2023 VLDL cholesterol measurement [facility] Immunizations Immunization Date Immunization Notes Care Provider Caryn martinez 01-23-2024 influenza, high dose seasonal, preservative-free Jack Rogel MD Work Phone: [facility] 01-23-2024 influenza virus vacc ine, unspecified formulation Generic Provider [facility] 01-23-2023 Influenza, High-dose Seasonal, Quadrivalent, Preservative Free Jack Rogel MD Work Phone: [facility] 02-08-2022 Influenza, High-dose Seasonal, Quadrivalent, Preservative Free Jack Rogel MD Work Phone: [facility] 02-04-2021 COVID-19 vaccine, ag e 12+ yr (PFIZER-BIONTECH - PURPLE TOP) Ru Blackman RN [facility] 01-19-2021 Influenza, High-dose Seasonal, Quadrivalent, Preservative Free Jack Rogel MD Work Phone: [facility] 06-03-2020 COVID-19 vaccine, ag e 12+ yr (PFIZER-BIONTECH - PURPLE TOP) Ru Blackman RN [facility] 05-12-2020 COVID-19 vaccine, ag e 12+ yr (PFIZER-BIONTECH - PURPLE TOP) Ru Blackman RN [facility] 01-15-2020 influenza virus vacc ine, unspecified formulation Tenzin Hsu MD Work Phone: [facility] 01-15-2020 influenza, seasonal, injectable Jack Rogel MD Work Phone: [facility] 12-26-2019 influenza, high dose seasonal, preservative-free Ru Blackman RN [facility] 12-26-2019 influenza virus vacc ine, unspecified formulation [facility] Work Phone: [facility] 01-24-2018 influenza, high dose seasonal, preservative-free Ru Blackman RN [facility] 01-25-2017 influenza, high dose seasonal, preservative-free Ru Blackman RN [facility] 01-20-2015 influenza virus vacc ine, unspecified formulation Tenzin Hsu MD Work Phone: [facility] 01-20-2015 influenza, injectabl e, quadrivalent, contains preservative Jack Rogel MD Work Phone: [facility] 10-12-2014 pneumococcal conjuga te vaccine, 13 valent Ru Blackman RN [facility] 04-05-2010 pneumococcal polysaccharide vaccine, 23 valbob Blackman RN [facility] Payers Date Payer Category Payer Unknown [id number] 2024 Medicare [id number] 2024 Self-pay [id number] 2023 Medicare (Managed Care) 1.2. [id number] 2023 Unknown [id number] 2018 Unknown ANTHEM BLUE CROS S AND BLUE SHIELD ANTHEM MEDIBLUE HMO [id number] 2018-Present [phone] [address] [place] [address] O [id number] 1.2.840.528663.1.13.159.2 .7.3.093758.315 2018 Unknown 1.2.840.840782. 1.13.159.2 .7.3.545990.315 1959 Unknown [id number] 1941 Unknown [id number] 2.16.840.1.815125.3.579.2 .355 1941 Unknown [id number] 2.16.840.1.453240.3.579.2 .593 1941 Unknown [id number] 2.16.840.1.531183.3.579.2 .593 1941 Unknown [id number] 2.16.840.1.058665.3.579.2 .593 1941 Unknown [id number] 2.16.840.1.610401.3.579.2 .593 1941 Unknown [id number] 2.16.840.1.145112.3.579.2 .593 1941 Unknown [id number] 2.16.840.1.162790.3.579.2 .593 1941 Unknown [id number] 2.16.840.1.466795.3.579.2 .593 1941 Unknown [id number] 2.16.840.1.256154.3.579.2 .1246 1941 Unknown [id number] 2.16.840.1.573932.3.579.2 .1246 1941 Unknown [id number] 2.16.840.1.436824.3.579.2 .1245 1941 Unknown [id number] 2.16.840.1.990407.3.579.2 .1245 1941 Unknown [id number] 2.16.840.1.834895.3.579.2 .173 1941 Unknown [id number] 2.16.840.1.612596.3.579.2 .173 1941 Unknown [id number] 2.16.840.1.809186.3.579.2 .173 1941 Unknown [id number] 2.16.840.1.302959.3.579.2 .1244 1941 Unknown [id number] 2.16.840.1.300792.3.579.2 .1244 1941 Unknown [id number] 2.16.840.1.284123.3.579.2 .1259 1941 Unknown [id number] 2.16.840.1.445070.3.579.2 .1259 1941 Unknown [id number] 2.16.840.1.819298.3.579.2 .1258 1941 Unknown [id number] 2.16.840.1.109821.3.579.2 .1258 1941 Unknown [id number] 2.16.840.1.456847.3.579.2 .1258 1941 Unknown [id number] 2.16.840.1.155022.3.579.2 .1258 1941 Unknown [id number] 2.16.840.1.443246.3.579.2 .1258 1941 Unknown [id number] 2.840.1.274720.3.579.2 .1258 1941 Unknown [id number] 2.840.1.558382.3.579.2 .1258 1941 Unknown [id number] 2.840.1.942772.3.579.2 .1259 Unknown [place] / [id number] Unknown [id number] 2.840.1.539886.3.579.2 .531 Unknown [id number] 2.840.1.880205.3.579.2 .531 Unknown [id number] 2.840.1.208119.3.579.2 .531 Unknown [id number] 2.840.1.871995.3.579.2 .531 Unknown [id number] 2.840.1.423485.3.579.2 .531 Unknown [id number] 2.840.1.673265.3.579.2 .531 Social History Date Type Detail Facility Start: 04-05-2021 End: 11-29-2022 Tobacco smoking status NHIS Never smoked tobacco [facility] Start: 04-05-2021 End: 11-29-2022 Tobacco use and exposure Smokeless tobacco non-user [facility] Start: 05-12-2021 End: 11-10-2024 Alcohol intake Ex-drinker (finding) [facility] Start: 1940 Sex Assigned At Not on file C [facility] Start: 03-26-2021 End: 07-11-2024 Exposure to SARS-CoV-2 (event) Not sure [facility] Start: 05-24-2023 End: 09-03-2024 Sex Assigned At [facility] [employer] Other Start: 1940 Sex Assigned At Female F [facility] History of tobacco use Passive smoker [facility] Start: 05-24-2023 End: 09-03-2024 History of Social function [facility] Start: 04-03-2023 Alcohol Comment caffeine intak e: 3-4 cups daily coffee [facility] Start: 07-02-2023 End: 07-11-2024 Alcohol intake Lifetime non-drinker (finding) [facility] Work Phone: Start: 05-20-2024 End: 07-31-2024 Sex Female (finding) [facility] Start: 10-31-2024 SDOH Follow up SDOH Follow up [facility] Work Phone: Medical Equipment Procedure Code Equipment Code Equipment Origin al Text Equipment Identifier Dates Check daily and as needed. [id number] Start: 09-25-2023 Goals Date Patient Goal Desired Activity /State Functional Status Date Assessment Result Facility 10-30-2024 Functional status Patient at [facility] Work Phone: 09-03-2024 Patient Health [facility] ionnaire 2 item (PHQ-2) [Reported] [facility] 04-04-2024 Functional status Patient at [facility] Work Phone: [facility] Mental Status Date Assessment Result Facility 10-30-2024 Cognitive function Cognitive Sta tus Patient at [facility] Work Phone: 04-04-2024 Cognitive function Cognitive Sta s Patient at [facility] Work Phone: Clinical Notes 03-18-2021 to 11-10-2024 Jack Rogel MD - 11/10/2024 2:30 PM EDT Note Date & Type Note Facility 11-10-2024 History of Presen t illness Narrative Images from the original note were not included. Patient ID: Johanny Forbes is a 84 y.o. female who presents for: Hospital Follow up: See dx below Flowsheet Row Patient Outreach from 11/04/2024 in [facility] with Tyesha Connelly LPN Hospital Information ED, Hospital or Prison Facility Discharge? Hospital Patient has been contacted within two business days of discharge Yes Diagnosis Acute UTI, HTN, headache, NSTEMI, takotxubo cardiomyopathy, AAA, PVD, RAZA, CKD Discharge Date 11/01/24 Discharged To: Home Setting Discharge Hospital [facility] [Transferred from [facility] (10/29-10/30)] Engagement Call Start Time 949 Admission Date 10/30/24 Medications Discharge medications reviewed and reconciled from hospital? Yes [START: Spironolactone, Mag Ox, Nitro paste HOLD: Sildenafil] Is the patient having any side effects they believe may be caused by any medication additions or changes? No Does the patient have all medications ordered at discharge? Yes Nursing Interventions No intervention needed Is the patient taking all medications as directed (includes completed medication regime)? Yes Nursing Interventions Nurse provided patient education Appointments Does the patient have a primary care provider? Yes [Scheduled HFU on 11/10] Nursing Interventions Verified appointment date/time/provider Does the patient have any upcoming specialty appointments? Yes [Dr Galicia 12/16] Nursing Interventions Advised patient to keep appointment Self Management Patient Teaching Does the patient have access to their discharge instructions? Yes Nursing Interventions Reviewed instructions with patient What is the patient's perception of their health status since discharge? Improving Is the patient/caregiver able to teach back the hierarchy of who to call/visit for symptoms/problems? PCP, Specialist, Home Health nurse, Urgent Care, ED, 911 Yes Wrap Up Wrap Up Additional Comments Had labs, CT, EKG, stress test, myocardial perfusion scan, urine culture Call End Time 956 Review of Systems No new complaints other than her toes. She states that someone told her he has where emboli from her cardiac catheterization. No UTI symptoms. No chest pains, palpitations, shortness of breath. Still complains of the purple toes that are painful although she thinks they are somewhat better. She notes that that she was told to wipe them with Betadine regularly. Objective The patient is pleasant and in no acute distress. The neck is supple and trachea is midline. No masses are appreciated. The heart is regular rate and rhythm without S3, S4. No murmur. The patient has normal respiratory pattern. The breath sounds are symmetrical without evidence of rhonchi or rales. No wheezing. The skin is warm and dry. The overall cyanosis/ blackish of her toes is improved. She does have 2 spots of dry eschar. No evidence of wet gangrene. The lower extremities have trace edema. The patient has good eye contact and speech is clear. Appropriate affect. 09/03/2024 3:16 PM 05/29/2024 10:55 AM 05/27/2024 1:39 PM 04/23/2024 11:38 AM Vitals BMI 25.51 kg/m2 25.51 kg/m2 24.8 kg/m2 BSA (m2) 1.7 m2 1.7 m2 1.68 m2 Systolic 130 Diastolic 70 Heart Rate 97 74 SpO2 99 % 97 % Resp 18 Height (in) 5' 3 5' 3 5' 3 Weight (lb) 144 144 140 Visit Report Report Report Report Allergies Allergen Reactions Amino Acids Other Gabapentin Diarrhea Lisinopril Cough and Other Penicillins Other Dizzy and passed out Statins Other Current Outpatient Medications on File Prior to Visit Medication Sig Dispense Refill apixaban (Eliquis) 5 MG tablet Take 1 tablet (5 mg) by mouth in the morning and 1 tablet (5 mg) before bedtime. (Patient taking differently: Take 2.5 mg by mouth in the morning and 2.5 mg before bedtime.) 60 tablet 0 atorvastatin (Lipitor) 80 MG tablet Take 80 mg by mouth in the evening (Patient not taking: Reported on 09/03/2024) carvedilol (Coreg) 6.25 MG tablet Take 1 tablet (6.25 mg) by mouth in the morning and 1 tablet (6.25 mg) in the evening. Take with meals. (Patient taking differently: Take 3.25 mg by mouth in the morning and 3.25 mg in the evening. Take with meals.) glucose blood (Memoiruch Ultra) test strip Check daily and as needed. 50 strip 1 levothyroxine (Synthroid) 25 MCG tablet Take 1 tablet (25 mcg) by mouth Daily Take on an empty stomach (Patient not taking: Reported on 09/03/2024) 90 tablet 1 magnesium oxide (Mag-Ox) 400 mg tablet Take 400 mg by mouth in the morning and 400 mg before bedtime. Multiple Vitamin (MULTIVITAMIN ADULT PO) Multivitamin Nitro-Bid 2 % ointment Place 0.5 inches on the skin in the morning and 0.5 inches before bedtime. See instructions. sildenafil (Viagra) 50 MG tablet Take 50 mg by mouth in the morning and 50 mg before bedtime. (Patient not taking: Reported on 09/03/2024) spironolactone (Aldactone) 25 MG tablet Take 12.5 mg by mouth in the morning. valsartan (Diovan) 40 MG tablet Take 1 tablet (40 mg) by mouth Daily (Patient taking differently: Take 40 mg by mouth in the morning and 40 mg before bedtime.) 90 tablet 1 No current facility-administered medications on file prior to visit. 1. Takotsubo cardiomyopathy This is a recurrent diagnosis for her. Cardiology is managing. She does note she has follow-up with Cardiology but is unsure of when. 2. NSTEMI (non-ST elevated myocardial infarction) ([facility]) Cardiology has adjusted her medications and that can be seen in the medication management section. 3. Acute UTI She has finished her antibiotics and has no UTI or flank pain symptoms. 4. RAZA (acute kidney injury) She notes she has blood work ordered through Cardiology. We discussed the importance of staying well hydrated with water. 5. Encounter for examination following treatment at hospital [...] transition of care note is reviewed. a zruk-td-rdsm evaluation is done today. Medical decision making is complex in degree. 6. Primary hypertension Chronic problem, stable, comanaged with Cardiology. 7. PVD (peripheral vascular disease) Chronic problem, stable. 8. Pararenal abdominal aortic aneurysm (AAA) without rupture Continue to follow with Cardiovascular surgery. 9. Chronic kidney disease, stage 3b (CMS-HCC) This does need continue monitoring. Asked her when she gets her lab work done to ask that we get a copy of it. 10. Polypharmacy Chronic problem The patient meets the criteria for polypharmacy; 5 or more prescriptions or multi-morbidity defined as 5 or more diagnoses. Polypharmacy can significantly increase the risk of adverse drug events and negatively impact adherence. Consideration of factors such as clinician agreement, patient perspective, and de-prescribing, as appropriate can improve patient outcomes while simplifying care. This requires longitudinal monitoring as there is at least a moderate risk of morbidity and requires at least a moderate degree of evaluation and management. 11. Statin myopathy (Primary) Exclusionary diagnosis for the HEDIS measures for statin therapy. Please Note: Portions of this chart may have been created using voice recognition software. Occasionally a wrong-word or sound-like substitutions may have occurred due to inherent limitations of the voice recognition software. Please read the chart carefully and recognize, using context, where the substitutions may have occurred. documented in this encounter [facility] 10-26-2024 Evaluation note Diagnosis Onset Date Resolution Dysuria noneactive October 26 10:08am [facility] Work Phone: 1(124) 281-725607-13-2025 Evaluation note* Diagnosis Onset Date Resolution Status Admit Date Dysuria noneactive October 26 10:08am AAA (abdominal aortic aneurysm) acute October 30, 2024 3:44pm Discoloration of skin of toe acute October 30, 2024 3:44pm Ischemic pain of foot acute Oct 3:44pm Paroxysmal atrial fibrillation acute October 30, 2024 3:44pm Raynauds disease acute October 3:44pm Takotsubo syndrome acute October 142024 3:44pm [facility] Work Phone: 1(730) 436-530406-24-2025 History of Present illness Narrative* HAYLEE Raines [...] S/P EMG B/L LE 09/19, PT AT [facility] XRAY RT KNEE EPIC 06/25/24 B/L LE EMG DR MISHRA 09/19/24 (PROCEDURE VISIT UNDER ENCOUNTERS) NO MRI NO MDP/PREDNISONE NO INJECTION PHYSICAL THERAPY @ [facility] NO PAIN MGMT WALKING WITH A CANE. FINISHED PHYSICAL THERAPY, NOW ABLE TO WALK BUT STILL HAVING DIFFICULTY. LEG GETS TIRED AND WANTS TO GIVE OUT. FEELS LIKE SHE IS OFF BALANCE. PAIN IN KNEE, USES A MUSCLE RUB. +TYL, NOT MUCH RELIEF. WAKES AT HS. 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 TAKING OXY PRN. Physical Exam General Appearance: [...] requiring urgent evaluation. Visit was preformed using [employer] pilot speech recognition. documented in this encounterMercy [facility]une-Brooks [id number] History of Present illness Narrative* Jack Rogel [...] Medicine) Jack Rogel MD as PCP - Fernando Blankenship NP as Nurse Practitioner (Family Medicine) Toi Horne DPM as Referring Physician (Podiatry) Tenzin Hsu MD as Referring Physician (Vascular Surgery) [facility] Over the past 2 weeks, how [...] Yes Vision Screening: Yes, patient sees regular screen cleaner/food and beverage cashier Hearing Screening: Yes, uses hearing aids Cognitive [...] of cervix 03/25/2013 CAD (coronary artery disease) (CMS/HCC) Cancer ([facility]/HCC) Chronic kidney disease Diabetes mellitus (CMS/HCC) Heart failure History of ischemic cardiomyopathy Hyperlipidemia (CMS/HCC) Hypertension (CMS/HCC) Missed Myocardial infarction (CMS/HCC) NSTEMI (non-ST elevated myocardial infarction) (CMS/HCC) Osteoporosis (CMS/HCC) TIA (transient ischemic attack) SURGICAL HISTORY: Past [...] 2 times daily with meals glucose blood (Civolution Ultra) test strip Check daily and as [...] with Cardiology. 11. Coronary artery disease involving [place] coronary artery of [place] heart without angina pectoris (CMS/HCC) Chronic problem, stable, monitor longitudinally. Co treated with Cardiology. 12. Pararenal abdominal aortic aneurysm (AAA) without rupture (CMS/HCC) Chronic problem, stable, monitor longitudinally. Co treated with Vascular surgery 13. Chronic kidney disease, stage 3b (HCC) ([facility]/HCC) Chronic problem, stable, monitor longitudinally. 14. Type 2 diabetes mellitus with stage 3b chronic kidney disease, without long- term current use ofinsulin (HCC) (CMS/HCC) Chronic problem, stable, monitor longitudinally. 15. Mixed dyslipidemia (CMS/HCC) Chronic problem, stable, monitor longitudinally. documented in this encounterMercy McCune-Brooks [id number] Telephone encounter Note* Telephone Encounter - Ever Restrepo - 09/03/2024 12:29 PM EDT LVM to in regard to BLE referral from Dr Barajas--Approved to schedule--per Estimate no deductible, 35.00 applied to co-pay, also due at time of visit. [facility] [id number] Miscellaneous Notes* Telephone Encounter - Ever Restrepo - 09/03/2024 12:29 PM EDT LVM to RC in regard to BLE referral from Dr Barajas--Approved to schedule--per Estimate no deductible, 35.00 applied to co-pay, also due at time of visit. documented in this encounterMercy McCune-Brooks [id number] Evaluation + Plan note* Assessment & Plan [...] to avoid the potential of gastrointestinal bleed. [facility] Work Phone: 1(673) 458-765205-19-2025 Miscellaneous Notes* Assessment & Plan Note - [...] potential of gastrointestinal bleed. [facility] Work Phone: 1(724) 288-359705-19-2025 History of Present illness Narrative* Katharine Torres PharmD - 09/01/2024 1:40 PM EDT Images from the original note were not included. Pharmacist Clinic: Cardiology Management Johanny Forbes is a 84 y.o. female was referred to Clinical Pharmacy Team for anticoagulation management. Referring Provider: Eloise Galicia MD THIS IS A FOLLOW UP PATIENT APPOINTMENT. AT LAST VISIT ON 07/28/24 WITH PHARMACIST (Kathairne Torres). Appointment was completed by the patient who was reached at [phone]. REVIEW OF PAST APPNT (IF APPLICABLE): Johanny [...] Reviewed? Yes Allergies Allergen Reactions Atorvastatin Myalgia Apzrloh-Mrp-Mvk Reductase Inhibitors Other Lisinopril Other, Cough and [...] visit? Yes Home Pharmacy Reviewed? Yes, describe: [facility] Added: - None Changed: - none Removed: - Crestor Drug Interactions? Aspirin + Eliquis counseled pt on increased risk of bleed and to take aspirin with food. Medication Documentation Review Audit Reviewed by Otis CervantesD (Pharmacist) on 07/28/24 at 1437 Medication Order Taking? Sig Documenting Provider Last Dose Status apixaban (Eliquis) 2.5 mg tablet [id number] Take 1 tablet (2.5 mg) by mouth 2 times a day. Eloise Galicia MD Active aspirin 81 mg EC tablet [id number] Take 1 tablet (81 mg) by mouth once daily. Historical Provider, Active carvedilol (Coreg) 3.125 mg tablet [id number] Take 1 tablet (3.125 mg) by mouth 2 times a day. Eloise Galicia MD Active magnesium oxide (Mag-Ox) 400 mg tablet [id number] Take 1 tablet (400 mg) by mouth 2 times a day. Eloise Galicia MD Active mometasone (Elocon) 0.1 % cream [id number] No Apply 1 Application topically once daily. Vladimir Provider, Taking Active rosuvastatin (Crestor) 5 mg tablet [id number] Take 1 tablet (5 mg) by mouth once daily. Patient not taking: Reported on 07/28/2024 Eloise Galicia MD Active spironolactone (Aldactone) 25 mg tablet [id number] Take 0.5 tablets (12.5 mg) by mouth once daily. Eloise Galicia MD Active valsartan (Diovan) 40 mg tablet [id number] Take 1 tablet (40 mg) by mouth 2 times a day. Eloise Galicia MD Active DISEASE MANAGEMENT ASSESSMENT: ANTICOAGULATION ASSESSMENT The ASCVD Risk score (Isaiah DK, et al., 2019) failed to calculate for the following reasons: The 2019 ASCVD risk score is only valid for ages 40 to 79 Risk score cannot be calculated because patient has a medical history suggesting prior/existing ASCVD DIAGNOSIS: prevention of nonvalvular atrial fibrilliation stroke and systemic embolism - Patient is projected to be on anticoagulation indefinitely - [id number] Score: [10] (only included if diagnosis is atrial fibrillation) Age: [<65 (0)] [65-74 (+1)] [> 75 (+2)]: 2 Sex: [Male/Female (+1)]: 1 CHF history: [No/Yes(+1)]: 1 Hypertension history: [No/Yes(+1)]: 1 Stroke/TIA/thromboembolism history: [No/Yes(+2)]: 2 Vascular disease history (prior MN, peripheral artery disease, aortic plaque): [No/Yes(+1)]: 1 Diabetes history: [No/Yes(+1)]: 1 CURRENT PHARMACOTHERAPY: Eliquis 2.5 mg BID 83, 62.6 kg, Scr 2.1 RELEVANT PAST MEDICAL HISTORY: Xarelto, tried for PAP but pt did not start the drug. Affordability/Accessibility: ~> $100 for a 30 ds Adherence/Organization: pill organizer, denies adherence issues Adverse Reactions: Crestor, weakness Recent Hospitalizations: no Recent Falls/Trauma: no Changes [...] received at no cost to patient from [facility]. DISCUSSION/NOTES: Pt got first shipment from [...] Provider: 07.11.24 Next Appnt with Referring Provider: 9 Clinical Pharmacist follow up: 03/02/25 VAF/Application Expiration: [...] Case discussed with resident. Kat Palomares PharmD [phone] documented in [facility]St[facility] Work Phone: 1(355) 463-229805-15-2025 Telephone encounter Note* Telephone Encounter - MEME Jaquez - 08/28/2024 11:34 AM EDT Looks like Tete placed a referral to Dr Mishra but it must have been changed to Dr Rutledge. I faxed referral and EMG order to Dr Mishra. Office should be contacting her soon, but she could call the officeand see if she can schedule. [facility] [id number] Miscellaneous Notes* Telephone Encounter - MEME Jaquez [...] from them. Please advise. documented in this encounterMercy McCune-Brooks [id number] Telephone encounter Note* Telephone Encounter - Wendy Ramos - 08/28/2024 11:02 AM EDT Patient called and left vm that was going to refer her to . She has not heard from them. Please advise. [facility] [id number] Telephone encounter Note* Telephone Encounter - Dina Gunn - 08/27/2024 12:04 PM EDT Johanny left a message and just wanted Dr. Roegl to know that she can not take the Gabapentin. She states that when she takes it, it gives her diarrhea. [facility] [id number] Miscellaneous Notes* Telephone Encounter - Dina Gunn - 08/27/2024 12:04 PM EDT Johanny left a message and just wanted Dr. Rogel to know that she can not take the Gabapentin. She states that when she takes it, it gives her diarrhea. documented in this [facility]04-14-2025 Evaluation + Plan note* Assessment & Plan Note - Otis CervnatesD - 07/28/2024 2:54 PM EDT Associated Problem(s): Paroxysmal atrial fibrillation (Multi) Johanny is tolerating Eliquis well with no reported adverse effects. Counseled pt on relevant adverse affects and provided her with PharmD phone number if any additional questions come up. Will continueher on the same dosing for Eliquis. [facility] Work Phone: 1(306) 119-225004-14-2025 Miscellaneous Notes* Assessment & Plan Note - Katharine Torres PharmD - 07/28/2024 2:54 PM EDTAssociated Problem(s): Paroxysmal atrial fibrillation (Multi) Johanny is tolerating Eliquis well with no reported adverse effects. Counseled pt on relevant adverse affects and provided her with PharmD phone number if any additional questions come up. Will continueher on the same dosing for Eliquis. documented in this [facility]UnWood [facility] Work Phone: 1(657) 358-630304-14-2025 History of Present illness Narrative* Katharine Torres [...] by the patient who was reached at [phone]. REVIEW OF PAST APPNT (IF APPLICABLE): N/A new appt Allergies Reviewed? Yes Allergies Allergen Reactions Atorvastatin Myalgia Rggyrul-Zft-Bkx Reductase Inhibitors Other Lisinopril Other, Cough and [...] Yes Home Pharmacy Reviewed? Yes, describe: [facility] Added: - None Changed: - none Removed: - Crestor Drug Interactions? No Medication Documentation Review Audit Reviewed by Katharine Torres PharmD (Pharmacist) on 07/28/24 at 1437 Medication Order Taking? Sig Documenting Provider Last Dose Status apixaban (Eliquis) 2.5 mg tablet [id number] Take 1 tablet (2.5 mg) by mouth 2 times a day. Eloise Galicia MD Active aspirin 81 mg EC tablet [id number] Take 1 tablet (81 mg) by mouth once daily. Historical Provider, Active carvedilol (Coreg) 3.125 mg tablet [id number] Take 1 tablet (3.125 mg) by mouth 2 times a day. Eloise Galciia MD Active magnesium oxide (Mag-Ox) 400 mg tablet [id number] Take 1 tablet (400 mg) by mouth 2 times a day. Eloise Galicia MD Active mometasone (Elocon) 0.1 % cream [id number] No Apply 1 Application topically once daily. Historical Provider, Taking Active rosuvastatin (Crestor) 5 mg tablet [id number] Take 1 tablet (5 mg) by mouth once daily. Patient not taking: Reported on 07/28/2024 Eloise Galicia MD Active spironolactone (Aldactone) 25 mg tablet [id number] Take 0.5 tablets (12.5 mg) by mouth once daily. Eloise Galicia MD Active valsartan (Diovan) 40 mg tablet [id number] Take 1 tablet (40 mg) by mouth [...] projected to be on anticoagulation indefinitely - [id number] Score: [10] (only included if diagnosis is atrial fibrillation) Age: [<65 (0)] [65-74 (+1)] [> 76 (+2)]: 2 Sex: [Male/Female (+1)]: 1 CHF history: [No/Yes(+1)]: 1 Hypertension history: [No/Yes(+1)]: 1 Stroke/TIA/thromboembolism history: [No/Yes(+2)]: 2 Vascular disease history (prior MN, peripheral artery disease, aortic plaque): [No/Yes(+1)]: 1 Diabetes history: [No/Yes(+1)]: 1 CURRENT PHARMACOTHERAPY: Eliquis 2.5 mg BID 83, 62.6 kg, Scr 2.1 RELEVANT PAST MEDICAL HISTORY: Xarelto, tried for PAP but pt did not start the drug. Affordability/Accessibility: ~> $100 for a 30 ds Adherence/Organization: pill organizer, denies adherence issues Adverse Reactions: Crestor, weakness Recent Hospitalizations: 04.02. Recent Falls/Trauma: 2.5 months 3 times right [...] to be submitted [facility] the [facility] Permanent Address: [place] Prescription Insurance: Yes Members of Household: 3 Files Taxes: Yes Patient will be other: download the document from the pt chart Patient verbally reports monthly or yearly income which is less than 400% federal poverty level Patient aware this process may take up to 6 weeks. If approved medication must be filled [facility] and MEDICATION WILL BE MAILED [...] Case discussed with resident. Kat Palomares PharmD [phone] documented in this [facility] Work Phone: 1(904) 157-807203-28-2025 History of Present illness Narrative* Eloise Galicia [...] : Paroxysmal atrial fibrillation (Multi) History of MN (myocardial infarction) Acute arterial ischemic stroke, multifocal, [...] focal first diagonal 95% ostial unchanged from 2019 LVEF 25% LVEDP 20 mmHg Echocardiogram 05/19/2024-LVEF [...] Unknown Penicillins Other Dizzy and passed out Dyynsnr-Ofe-Bli Reductase Inhibitors Other LABS: Reviewed all available pertinent laboratory data and diagnostic testing results that occurred afterthe last office visit with nv On 05/29/2024, sodium was 138 potassium 5, [...] (Crestor) 5 mg tablet 6. Type 2 MN (myocardial infarction) (Multi) 7. Stage 3b chronic [...] abdominal aortic ultrasound with patient and daughter [id number] score is 5 Not interested in cardiac [...] both accurate and complete. [facility] Work Phone: 1(835) 723-465303-28-2025 Instructions* Patient Instructions* Mile Ricketts CMA - [...] Fall Prevention Education Given documented in this encounterSt[facility] Work Phone: 1(405) 211-477003-12-2025 History of Present illness Narrative* Jr. Giorgio Barajas DO - 06/25/2024 8:30 AM EDT Images from the original note were not included. NAME: Johanny Forbes : 1940 HISTORY OF PRESENT ILLNESS: NEW PT Johanny Forbes is an 84 y.o. @ female. (NEW PT) (DR ROGEL REFERRAL) - (R) LEG WEAKNESS / GIVING OUT ~1 WK ; MULTIPLE FALLS D/T [place] XRAY TODAY, 06/25/24 IN [facility] NO MRI NO MDP/PREDNISONE NO INJECTION [...] smear of cervix CAD (coronary artery disease) ([facility]/HCC) Cancer ([facility]/HCC) Chronic kidney disease Diabetes mellitus ([facility]) Heart failure ([facility]) History of ischemic cardiomyopathy Hyperlipidemia ([facility]) Hypertension ([facility]) Missed Myocardial infarction ([facility]) NSTEMI (non-ST elevated myocardial infarction) ([facility]) Osteoporosis ([facility]) TIA (transient ischemic attack) PAST SURGICAL HISTORY: [...] ezetimibe (ZETIA) 10 mg, Daily glucose blood (PowerbyProxi) test strip Check daily and as needed. [...] Referral Reason: Consult and Treat Referral Location: [facility] Schedule Requested Specialty: Physical Therapy Number [...] is getting a aortic stent by Dr. Leonard for a descending aortic aneurysm. We have [...] for requiring urgent evaluation. documented in this encounterMercy McCune-Brooks [id number] History of Present illness Narrative* Toi Horne DPM - 05/29/2024 10:30 AM EST Patient: Johanny [...] smear of cervix CAD (coronary artery disease) (CMS/HCC) Cancer (CMS/HCC) Chronic kidney disease Diabetes mellitus (CMS/HCC) Heart failure (CMS/HCC) History of ischemic cardiomyopathy Hyperlipidemia (CMS/HCC) Hypertension (CMS/HCC) Missed Myocardial infarction (CMS/HCC) NSTEMI (non-ST elevated myocardial infarction) ([facility]/HCC) Osteoporosis ([facility]/HCC) TIA (transient ischemic attack) Medications: Current Outpatient [...] the morning., Disp: , Rfl: glucose blood (OneTouch Ultra) test strip, Check daily and as [...] time Toi Horne DPM documented in this encounterMercy McCune-Brooks [id number] History of Present illness Narrative* Jack Rogel [...] issues with the cyanosis. She states her sales and service consultant told her podiatry will not be able [...] by mouth in the morning. glucose blood (Memoiruch Ultra) test strip Check daily and as [...] long- term current use of insulin (HCC) ([facility]) Chronic problem I originally thought she needed [...] of evaluation and management. documented in this encounterMercy McCune-Brooks [id number] Telephone encounter Note* Telephone Encounter - Jack [...] different anticoagulant if she has better coverage. [facility] [id number] Miscellaneous Notes* Telephone Encounter - Jack Rogel MD - [...] dose Asprin with that? documented in this encounterMercy McCune-Brooks [id number] Telephone encounter Note* Telephone Encounter - Dina Gunn - 05/22/2024 [...] take a low dose Asprin with that? [facility] [id number] History of Present illness Narrative* Jack Rogel MD - 04/14/2024 2:30 PM EST Images from the original note were not included. Patient ID: Johanny Forbes is a 83 y.o. female who presents for: He is here for hospital follow-up visit. Her only complaint is more fatigue than she expects. Flowsheet Row Patient Outreach from 04/08/2024 [facility] with Tyesha Connelly LPN Hospital Information ED, Hospital or Prison Facility Discharge? Hospital Patient has been contacted [...] by mouth in the morning. glucose blood (Civolution Ultra) test strip Check daily and as [...] transition of care note is reviewed. a tdcl-zr-silp evaluation is done today. Medical decision making [...] of evaluation and management. documented in this [facility]12-20-2024 History of Present illness Narrative* Jack Rogel MD - 04/04/2024 10:35 AM EST I reviewed some emergency room notes and her cardiac catheterization. Updated medical record. documented in this [facility]12-18-2024 Evaluation note* Diagnosis Onset Date Resolution Status Admit Date AAA (abdominal aortic aneurysm) acute Benny 18th, 2 024 5:46pm CVA (cerebral vascular accident) acute April 02, 2 024 5:46pm Diabetes acute April 02, 2024 5:46pm HTN (hypertension) acute Decemb er 2023 5:46pm Hypothyroid acute March 5:46pm Paroxysmal atrial fibrillation acute April 02, 2 024 5:46pm NSTEMI (non-ST elevated myocardial infarction) resolved April 02, 2024 5:46pm [facility] Work Phone: 1(851) 589-927312-18-2024 Evaluation note* Diagnosis Onset Date Resolution Status [...] of toe acute June 04, 2024 3:05pm [facility] Work Phone: [phone]) 191-444412-18-2024 Evaluation note* Diagnosis Onset Date Resolution Status [...] Ischemic pain of foot acute May 11:05am [facility] Work Phone: 1([phone]) 733-970411-26-2024 History of Present illness Narrative* Jack Rogel [...] by mouth in the morning. glucose blood (PowerbyProxi) test strip Check daily and as needed. [...] dyslipidemia (CMS/HCC) Chronic problem, stable, patient notes sales and service consultant filled her prescription last time. 5. Paroxysmal [...] US PVR/SEGMENTAL PRESSURES LOWER documented in this encounterMercy McCune-Brooks [id number] History of Present illness Narrative* Eloise Galicia MD - 07/02/2023 1:15 PM EDT Referred by [facility] (Vaibhaveyer-afib/cherelle htn) History Of Present Illness: Johanny Forbes [...] 3 and previous TIA who [facility] with complaint of transient neurologic [...] (bypass heart) Brother Allergies: Lisinopril, Penicillins, and Wlmoszd-kfb-bav reductase inhibitors Outpatient Medications: Current Outpatient Medications [...] mouth 2 times a day. History of MN (myocardial infarction) - magnesium oxide (Mag-Ox) 400 [...] Paroxysmal atrial fibrillation (CMS/HCC) 2. History of MN (myocardial infarction) 3. Acute arterial ischemic stroke, [...] ventricular hypertrophy Clinical decision makin-year-old with a [id number] score of 7, has paroxysmal atrial fibrillation. [...] been markedly abnormal, and she has atherosclerotic kotzebue vessel coronary disease, statin therapy is indicated, will discuss further at next visit, it appears that she has statin intolerance. May be a candidate for Leqvio. Patient will follow-up after testing Thank you Dr. Rogel for allowing me to participate in Johanny's care, please do not hesitate to callif further questions arise, Sincerely, Eloise Galicia MD [facility] Provider Attestation - Scribe documentation Scribe [...] and formulation of care. documented in this encounterSt. [facility] Hospital Work Phone: [phone]) 487-422303-18-2024 Instructions* Patient Instructions* Curtis Navarro MA - [...] time of your visit. documented in this encounterSt. Elizabeth Hospital Work Phone: [phone]) 193-685601-29-2024 History of Present illness Narrative* Jack Rogel [...] Yes Vision Screening: Yes, patient sees regular screen cleaner/food and beverage cashier Hearing Screening: Has some hearing loss Cognitive Screening Self Assessment: No concerns rasied by family members, friends, or caretakers Three Word Registration: Miguel, Steve, Finger Clock Drawing: Normal Clock - 2 Three Word Recall: All 3 words correct - 3 Total Score (0-5 Points): 5 Pain Assessment Pain Score: 4 Advance Care Planning Do you have a living will?: Yes Do you have a medical power of insurance defense attorney?: Yes Objective : BP 122/70 [...] a living will and durable power of insurance defense attorney for healthcare. We discussed telling [...] to someone more local when driving to [place] is driving is a little more difficult [...] home exercise program. Coronary artery disease involving kotzebue coronary artery of kotzebue heart without angina pectoris (CMS/HCC) Chronic problem, [...] on May 24, 2023 documented in this encounterMercy McCune-Brooks [id number] Miscellaneous Notes* Telephone Encounter - Ru Thomas RN - 05/15/2022 2:18 PM EST Received call from pt stating she is at [facility] and needs mammogram orders sent. Orders faxed as requested. Ru Thomas RN documented in this encounterUniversity Hospitals [facility]01-30-2023 Miscellaneous Notes* Telephone Encounter - Honey Almeida - 05/15/2022 2:15 PM EST Faxed order to [facility] May 15, 2022 2:15 PM Honey Almeida * Telephone Encounter - Honey Almeida - 05/15/2022 2:14 PM EST Faxed order to [facility] May 15, 2022 2:15 PM Honey Almeida * Telephone Encounter - Simin Lama MD - 05/15/2022 2:11 PM EST Ordered * Telephone Encounter - Honey Almeida - 05/15/2022 1:39 PM EST Patient is currently at [facility] for her Mammogram. [facility] is calling to request a new order. 1) Diagnostic Bilateral Mammogram 2) US order (that way they have it if needed) Jyothi: If in agreement, can you please place order PERLITA and I will fax back to her? Thanks! Chrissie: Ph. [phone] Fax. [phone] Honey Almeida documented in this encounterUniversity Hospitals Portage Medical Center11-27-2022 Evaluation note* Encounter Date Diagnosis [...] no improvement in 2 to 3 days. [employer] Other 10-31-2022 Miscellaneous Notes* Telephone Encounter - [...] Reyes RN documented in this encounterUniversity Hospitals Portage Medical Center10-18-2022 NoteHNO ID: [id number] Author: Simin Lama MD Service: ? Author Type: Physician Type: Progress Notes Filed: 01/31/2022 3:38 PM Note Text: PATIENT NAME: Johanny Forbes [facility] NO.: [id number] ATTENDING PHYSICIAN: Simin Lama MD DATE OF [...] metastatic breast carcinoma, 5 cm, ER 0, WV 0, HER-2 0 by IHC. The tissue was not evaluated for flow cytometry to rule out a lymphoproliferative process. 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 Differential included mammary, skin, urothelial, pancreaticobiliary and pulmonary primaries. ER 0, WV 0, HER-2 negative by CAMERON. 2021 PET [...] 04/11/2021 141 Chloride (mmol (more content not included)...[facility] 01-31-2022 Miscellaneous Notes* Telephone Encounter - Honey Almeida - 01/31/2022 4:[address] Lama, patient had a previous abnormal L Mammogram and never followed up. He would like L Mammogram completed now. Faxed order to [facility] scheduling per patient's hospital request. Honey Almeida documented in this encounterUniversity Hospitals Portage Medical Center10-18-2022 History of Present illness Narrative* Simin Lama MD - 01/31/2022 3:19 PM EDT PATIENT NAME: Johanny Forbes CLINIC NO.: [id number] ATTENDING PHYSICIAN: Simin Lama MD DATE OF [...] metastatic breast carcinoma, 5 cm, ER 0, WV 0, HER-2 0 by IHC. The tissue was not evaluated for flow cytometry to rule out a lymphoproliferative process. 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 Differential included mammary, skin, urothelial, pancreaticobiliary and pulmonary primaries. ER 0, WV 0, HER-2 negative by CAMERON. 2021 PET [...] 07/28/2021 3.28 1.00 - 4.00 k/uL Final Simpson% Date Value Ref Range Status 07/28/2021 5.9 % Final Abs Simpson Date Value Ref Range Status 07/28/2021 0.46 [...] [place] [facility] [place], of the [facility] breast pathology department, who concur. [...] do not hesitate to contact me at [phone]. Simin Lama MD Hematology/Medical Oncology [facility] I spent a total of 30 minutes on the date of the service which included preparing to see the patient, ohkn-rt-lhba patient care, completing clinical documentation, obtaining and/or reviewing separately obtained history, performing a medically appropriate examination, counseling and educating the pat ient/family/caregiver, and ordering medications, tests, or procedures. Medical Decision Making: Medical Decision Making Level: 1 - N/A CC: DO Jorge Luis Webster DO documented in this encounterUniversity Hospitals Portage Medical Center04-14-2022 NoteHNO ID: [id number] Author: Drake Anand MD Service: ? Author [...] metastatic breast carcinoma, 5 cm, ER 0, WV 0, HER-2 0 by IHC. The tissue was not evaluated for flow cytometry to rule out a lymphoproliferative process. 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 Differential included mammary, skin, urothelial, pancreaticobiliary and pulmonary primaries. ER 0, WV 0, HER-2 negative by CAMERON. ? 2021 [...] MRI ? May [address] Laffay we discussed the role of surgery versus [...] date of the (more content not included)... [facility]04-14-2022 History of Present illness Narrative* [...] metastatic breast carcinoma, 5 cm, ER 0, WV 0, HER-2 0 by IHC. The tissue was not evaluated for flow cytometry to rule out a lymphoproliferative process. 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 Differential included mammary, skin, urothelial, pancreaticobiliary and pulmonary primaries. ER 0, WV 0, HER-2 negative by CAMERON. 2021 PET [...] which included preparing to see the patient, rqww-cr-rhvo patient care, completing clinical documentation, obtaining and/or reviewing separately obtained history, counseling and educating the patient/family/caregiver, ordering medications, herlinda ts, or procedures, independently interpreting results (not separately reported) and communicating results to the patient/family/caregiver. documented in this encounterUniversity Hospitals Portage Medical Center04-08-2022 Miscellaneous Notes* Telephone Encounter - [...] discuss further. She can be reached at [phone]. Ru Blackman RN documented in this encounterUniversity Hospitals Portage Medical Center01-10-2022 History of Present illness Narrative* [...] radiation safety can be found usingthis link: [email or web address] SIGNATURE: RADHA Crockett) PATIENT NAME: Johanny Forbes DATE: 2021 TIME: 2:40 PM PAGER/CONTACT #: documented in this encounterUniversity Hospitals Portage Medical Center12-28-2021 Miscellaneous Notes* Telephone Encounter - Amarilys Murry PA-C - 04/12/2021 4:42 PM EST Request received from [facility] for additional diagnosis codes for MRI breast because diagnosis providedis not a covered diagnosis. Will send with additional diagnosis codes. Will try C50.912 and C77.3. (carcinoma of breast metastatic to left axillary node) Amarilys Murry PA-C documented in this encounterUniversity Hospitals Portage Medical Center12-03-2021 NoteOPERATIVE NOTE OPERATION DATE: 03-18-21 ANESTHETIC:LMA. CUTTING MACHINE TENDER DECORATIVE:COLTON Enciso PREOPERATIVE DIAGNOSIS:Left axillary mass. POSTOPERATIVE DIAGNOSIS: [...] taken to the PACU in fair condition. [facility] Signed and Approved by: DR TIM NIÑO . 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, left (HCC)- Primary documented in this encounter [facility] noteNo assessment information availableClinton Memorial Hospital Work Phone: Evaluation note* Diagnosis Encounter [...] cerebral infarction (CMS/HCC) Coronary artery disease involving kotzebue coronary artery of kotzebue heart without angina pectoris (CMS/HCC) Pulmonary hypertension, mild (CMS/HCC) Other chronic pulmonary heart diseases Chronic kidney disease, stage 3b (HCC) (CMS/HCC) Type 2 diabetes mellitus with stage 3b chronic kidney disease, without long-term current use of insulin (HCC) (CMS/HCC) 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 Work Phone: Evaluation note* Diagnosis History of MN (myocardial infarction) 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, multifocal, posterior circulation, right (Multi) documented [facility] Work Phone: Evaluation note* Diagnosis Malignant neoplasm of breast in female, estrogen receptor negative, unspecified laterality, unspecified site of breast (HCC) documented in this encounter [facility] CenterEvalunem[facility] foundation note* Diagnosis Toe cyanosis- Primary Cyanosis Primary hypertension (CMS/HCC) Unspecified essential hypertension Chronic kidney disease, stage 3b (HCC) (CMS/HCC) Type 2 diabetes mellitus with stage 3b chronic kidney disease, without long-term current use of insulin (HCC) (CMS/HCC) Mixed dyslipidemia (CMS/HCC) Paroxysmal atrial fibrillation (CMS/HCC) Atrial fibrillation Decreased pedal pulses Other symptoms involving cardiovascular system documented in this encounter [facility] HealthcareEvaluation note* Diagnosis Other cardiomyopathy (CMS/HCC)- Primary documented in this encounter [facility] HealthcareEvaluation note* Diagnosis NSTEMI (non-ST elevated myocardial infarction) (CMS/HCC)- Primary Acute myocardial infarction, subendocardial infarction, episode of care unspecified Paroxysmal atrial fibrillation ([facility]/HCC) Atrial fibrillation Other cardiomyopathy ([facility]) Encounter for examination following treatment at hospital Polypharmacy Issue of repeat prescriptions [facility]* Diagnosis Raynaud's phenomenon without gangrene- Primary [facility]* Diagnosis Toe cyanosis Cyanosis Decreased pedal pulses Other symptoms involving cardiovascular system Type 2 diabetes mellitus with stage 3b chronic kidney disease, without long-term current use of insulin (HCC) ([facility]) Polypharmacy Issue of repeat prescriptions documented [facility]* Diagnosis Right leg weakness Muscle weakness (generalized) Acute pain of right knee Numbness Disturbance of skin sensation documented in this encounter [facility]* Diagnosis Acute on chronic left systolic heart failure Discoloration of skin of foot Abdominal aortic aneurysm, without rupture, unspecified ([facility]) documented [facility] this [facility] Work Phone: Evaluation note* Diagnosis Paroxysmal atrial fibrillation (Multi)- Primary Atrial fibrillation Anticoagulated Encounter for long-term (current) use of anticoagulants Primary hypertension Unspecified essential hypertension Aortic aneurysm, unspecified portion of aorta, unspecified whether ruptured Mixed hyperlipidemia Type 2 MN (myocardial infarction) ([facility]) Stage 3b chronic kidney disease (Multi) BMI 24.0-24.9, adult Acute on chronic left systolic heart failure [facility] this [facility] Work Phone: Evaluation note* Diagnosis Paroxysmal atrial fibrillation (Multi) Atrial fibrillation Anticoagulated Encounter for long-term (current) use of anticoagulants documented [facility] this [facility] Work Phone: Evaluation note* Diagnosis Right leg weakness Muscle weakness (generalized) Numbness Disturbance of skin sensation Encounter for Medicare annual wellness exam Advance directive discussed with patient Encounter for screening for other disorder Screening for alcohol problem Screening for alcoholism Polypharmacy Issue of repeat prescriptions [facility]* Diagnosis Paroxysmal atrial fibrillation (Multi) Atrial fibrillation Anticoagulated Encounter for long-term (current) use of anticoagulants Paroxysmal atrial fibrillation (Multi) Atrial fibrillation Anticoagulated Encounter for long-term (current) use of anticoagulants documented [facility] this [facility] Work Phone: Evaluation note* Diagnosis Encounter [...] ischemic heart disease Coronary artery disease involving kotzebue coronary artery of k[place] heart without angina pectoris (CMS/HCC) Pararenal abdominal aortic aneurysm (AAA) without rupture (CMS/HCC) Chronic kidney disease, stage 3b (HCC) (CMS/HCC) Type 2 diabetes mellitus with stage 3b chronic kidney disease, without long-term current use of insulin (HCC) (CMS/HCC) Mixed dyslipidemia (CMS/HCC) documented in this encounter [facility] HealthcareEvaluation note* Diagnosis Pain in both lower extremities- Primary Weakness of right lower extremity Lumbar radiculopathy Thoracic or lumbosacral neuritis or radiculitis, unspecified documented in this encounter [facility] HealthcareEvaluation note* Diagnosis Infrarenal abdominal aortic aneurysm (AAA) without rupture [facility]* Diagnosis 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) Atherosclerosis of [place] arteries of the extremities with rest pain [facility] Health[facility]* Diagnosis Right leg pain- Primary Pain in soft tissues of limb Lumbar radiculopathy, right Chronic pain of right knee Arthritis of right knee Chondromalacia, patella, right documented in this encounter [facility] HealthcareEvaluation note* Diagnosis Onset Date Resolution Status Admit Date Dysuria noneactive October 26 10:08am [facility] Work Phone: Evaluation note* Diagnosis Statin myopathy- Primary Toxic myopathy Takotsubo cardiomyopathy Takotsubo syndrome NSTEMI (non-ST elevated myocardial infarction) (HCC) Acute myocardial infarction, subendocardial infarction, episode of care unspecified Acute UTI Urinary tract infection, site not specified RAZA (acute kidney injury) Encounter for examination following treatment at hospital Primary hypertension Unspecified essential hypertension PVD (peripheral vascular disease) Unspecified peripheral vascular disease Pararenal abdominal aortic aneurysm (AAA) without rupture Chronic kidney disease, stage 3b (CMS-HCC) Polypharmacy Issue of repeat prescriptions documented in this encounter [facility] HealthcareHistory of Present illness Narrative* Brian Mishra MD - 09/19/2024 1:15 PM EDT [facility] Healthcare Patient: Johanny Braxton [address], [address] , Sex: 1940, Female [place], [place] [address] Height: 160 cm Ref Phys: Pebbles Barajas fax Electroneuromyogram (ENMG) Test Date: 2024-09-19 [...] Doub=doublet; Fasc=fasciculation; FFE=full for effort; Fib=fibrillation; Myokym=myokymia; [place]=myotonic potential; N,0=normal; NR=no response; Polyph=polyphasia; Pos=positive [sharp] [...] of any radiculopathy. Brian Mishra M.D. Diplomate, [place] [employer]iat[employer] and Neurology (neurology, epilepsy, sleep medicine) Diplomate, [place] Board of Clinical Neurophysiology Diplomate, [place] Board of Preventive Medicine (clinical informatics) . 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, left (HCC) Procedures DANIELLE DIAGNOSTIC LT DIAGNOSTIC MAMMOGRAPHY COMPUTER-AIDED DETCJ UNI Simin Lama MD [address] [place] [address] [facility] [address] [place] [address] Referral ID Status Reason Start Date Expiration Date Visits Requested Visits Authorized [id number] Pending Review Auto-Generat ed Referral 02/14/2022 03/02/2023 1 1 [facility] for referral (narrative)* Diagnostic Procedure Only (Routine) - Pending Review Specialty Diagnoses / Procedures Referred By Jerry t Referred To Contact [facility] Diagnoses 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, left (HCC) Procedures US BREAST LTD RT US BREAST UNI REAL TIME WITH IMAGE LIMITED Simin Lama MD [address] [place] [address] [facility] [address] [place] [address] Referral ID Status Reason Start Date Expiration Date Visits Requested Visits Authorized [id number] Pending Review Auto-Generat ed Referral 05/15/2022 06/14/2023 1 1 * Diagnostic Procedure Only (Routine) - Pending Review Specialty Diagnoses / Procedures Referred By Contac t Referred To Contact [facility] Diagnoses 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, left (HCC) Procedures US BREAST LTD LT US BREAST UNI REAL TIME WITH IMAGE LIMITED Simin Lama MD [address] [place] [address] [facility] [address] [place] [address] Referral ID Status Reason Start Date Expiration Date Visits Requested Visits Authorized [id number] Pending Review Auto-Generat ed Referral 05/15/2022 06/14/2023 1 1 * Diagnostic Procedure Only (Routine) - Pending Review Specialty Diagnoses / Procedures Referred By Contac t Referred To Contact [facility] IM[facility]ING Diagnoses 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, left (HCC) Procedures DANIELLE DIAGNOSTIC BILAT DIAGNOSTIC MAMMOGRAPHY COMPUTER-AIDED DETCJ BI Simin Lama MD [address] [place] [address] [facility] [address] [place] [address] Referral ID Status Reason Start Date Expiration Date Visits Requested Visits Authorized [id number] Pending Review Auto-Generat ed Referral 05/15/2022 06/14/2023 1 1 [facility] for referral (narrative)* Diagnostic Procedure Only (Routine) - Closed Specialty Diagnoses / Procedures Referred By Contac t Referred To Contact MOLECULAR & FUNCTIONAL IMAGING Diagnoses Malignant neoplasm of breast in female, estrogen receptor negative, unspecified laterality, unspecified site of breast (HCC) Procedures NM PET/CT SKULL-THIGH INITIAL TUMOR IMAGING PET W/CONC CT SKULL-THIGH Drake Anand MD [address] [place] [address] [facility] [address] [place] [address] Referral ID Status Reason Start Date Expiration Date V isits Requested Visits Authorized [id number] Closed Auto-Generate d Referral 04/16/2021 06/14/2021 1 1 [facility] for referral (narrative)No reason for referral [facility] Work Phone: Reason for visit Narrative* Imaging (Routine) - Authorized Specialty Diagnoses / Procedures Referred By Jerry t Referred To Contact Cardiology Diagnoses History of [place] (myocardial infarction) Acute on chronic left systolic heart failure Acute arterial ischemic stroke, multifocal, posterior circulation, right (Multi) Discoloration of skin of foot Procedures Vascular US Abdominal Aorta Aneurysm AAA Screening Eloise Galicia MD [address] [place] [address] [address] [place] [address] Phone: tel: fax: Referral ID Status Reason Start Date Expiration Date Visits Requested Visits Authorized [id number] Authorized Perform Procedure 05/19/2024 05/19/[address] [facility] Work Phone: Reason for visit Narrative* Imaging (Routine) - Closed Specialty Diagnoses / Procedures Referred By Contac t Referred To Contact Radiology Diagnoses Infrarenal abdominal aortic aneurysm (AAA) without rupture Procedures CTA ABDOMEN PELVIS W CONTRAST Tenzni Hsu MD [address] [place] [address] [address] [place] [address] Phone: tel: fax: Referral ID Status Reason Start Date Expiration Date Visits Re quested Visits Authorized [id number] Closed 08/06/2024 08/06/2025 1 1 [facility] Narrative* Other (Routine) - Open Specialty Diagnoses / Procedures Referred By Contac t Referred To Contact Cardiology Diagnoses 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) Procedures Vascular lower arterial complete physiologic Doppler at rest Tenzin Hsu MD [address] [place] [address] Phone: tel: fax: Referral ID Status Reason Start Date Expiration Date Visits Re quested Visits Authorized [id number] Open 09/05/2024 09/05/2025 1 1 Partnered Summary Purpose Family History No Family History Records Found Relationship Condition Age at Onset Recorded Date/T gelacio mother Myocardial infarction Unknown Diabetes mellitus Unknown brother Heart disease Unknown father Coronary artery disease Unknown Advance Directives No Advanced Directives Records Found Advance Directive Response Recorded Date/ Time Advance Directives No May 04, 2022 12:47pm Documents on File Type Date Recorded Patient Toy Packer Expl anation Power of Verifying Machine Operator 05/28/2023 10:54 AM 2022 Power Of Verifying Machine Operator Documents on File Type Date Recorded Patient Toy Packer Expl anation Power of Verifying Machine Operator 05/28/2023 10:54 AM 2022 Power Of Verifying Machine Operator Advance Directive Response Recorded Date/ Time Advance [...] 02, 2024 5:46pm [facility] Diabetes April 02, 2024 [...] Follow up; [place]; [facility] done at [facility] June 11, 2024 11:05am Reason for [...] blood in urine October 26, 2024 10:08am Chief Complaint Admit Date pain and blood in urine October 26, 2024 10:08am [email or web address] October 26, 2024 10:1 5am Unknown October 29, 2024 7:14 pm N Stemi October 30, 2024 3:44 pm Reason for Visit Admit Date Dysuria October 26, 2024 10:0 8am AAA (abdominal aortic aneurysm) October 3:44pm Discoloration of skin of toe October 30, 2024 3:44pm Ischemic pain of foot October 30, 2024 3: 44pm Paroxysmal atrial fibrillation October 3:44pm Raynauds disease October 30, 2024 3:44 pm Takotsubo syndrome October 30, 2024 3:44 pm Reason for Referral Specialty Diagnoses / Procedures Referred By Contac t Referred To Contact Cardiology Diagnoses History of [place] (myocardial infarction) Acute arterial ischemic stroke, multifocal, posterior circulation, right (CMS/HCC) Procedures Transthoracic Echo Complete [place] ECHO TTHRC R-T 2D W/WOM-MODE COMPL SPEC&COLR D Eloise Galicia MD [address] [place] [address] [address] [place] [address] Referral ID Status Reason Start Date Expiration Date Visits Requested Visits Authorized [id number] Authorized Perform Procedure 07/02/2023 07/01/2024 1 1 Specialty Diagnoses / Procedures Referred By Contac t Referred To Contact Diagnoses Paroxysmal atrial fibrillation (CMS/HCC) Procedures ECG 12 Lead Eloise Galicia MD 254 [facility] [address] [place] [address] Referral ID Status Reason Start Date Expiration Date V isits Requested Visits Authorized [id number] Authorized 07/02/2023 07/01/2024 1 1 Specialty Diagnoses / Procedures Referred By Contac t Referred To Contact Cardiology Diagnoses Acute arterial ischemic stroke, multifocal, posterior circulation, right (CMS/HCC) Procedures Follow Up In Cardiology Eloise Galicia MD [address] [facility] [address] [place] [address] Eloise Galicia MD [address] [facility] [address] [place] [address] Referral ID Status Reason Start Date Expiration Date V isits Requested Visits Authorized [id number] Authorized 07/02/2023 07/01/2024 1 1 Additional Source Comments INFORMATION SOURCE (unrecogn ized section and content) DATE CREATED AUTHOR 06/27/2018 [facility] DATE CREATED AUTHOR AUTHOR'S ORGANIZ ATION 07/08/2019 [facility] DATE CREATED AUTHOR AUTHOR'S ORGANIZ ATION 05/07/2021 [facility] DATE CREATED AUTHOR AUTHOR'S ORGANIZ ATION 05/16/2022 [facility] DATE CREATED AUTHOR AUTHOR'S ORGANIZ ATION 03/08/2024 [facility] DATE CREATED AUTHOR AUTHOR'S ORGANIZ ATION 07/12/2024 [facility] DATE CREATED AUTHOR AUTHOR'S ORGANIZ ATION 09/11/2024 [facility] DATE CREATED AUTHOR AUTHOR'S ORGANIZ ATION 09/29/2024 [facility] DATE CREATED AUTHOR AUTHOR'S ORGANIZ ATION 11/11/2024 [facility] DATE CREATED AUTHOR AUTHOR'S ORGANIZ ATION 11/11/[address] [facility] DATE CREATED AUTHOR AUTHOR'S ORGANIZ ATION 11/25/[address] [facility] Source Comments (unrecognize d section and content) In the event this informatio n is protected by the Federal Confidentiality of Alcohol and Drug Abuse Patient Records regulations: The Federal rules restrict any use of the information to criminally investigate or prosecute any alcohol or drug abuse patient.[facility] Center[facility] the event this information is protected by the Federal Confidentiality of Alcohol and Drug Abuse Patient Records regulations: The Federal rules restrict any use of the information to criminally investigate or prosecute any alcohol or drug abuse patient.[facility] CenterIn the event this information is protected by the Federal Confidentiality of Alcohol and Drug Abuse Patient Records regulations: The Federal rules restrict any use of the information to criminally investigate or prosecute any alcohol or drug abuse patient.[facility] CenterIn the event this information is protected by the Federal Confidentiality of Alcohol and Drug Abuse Patient Records regulations: The Federal rules restrict any use of the information to criminally investigate or prosecute any alcohol or drug abuse patient.[facility] CenterIn the event this information is protected by the Federal Confidentiality of Alcohol and Drug Abuse Patient Records regulations: The Federal rules restrict any use of the information to criminally investigate or prosecute any alcohol or drug abuse patient.[facility] CenterIn the event this information is protected by the Federal Confidentiality of Alcohol and Drug Abuse Patient Records regulations: The Federal rules restrict any use of the information to criminally investigate or prosecute any alcohol or drug abuse patient.[facility] CenterIn the event this information is protected by the Federal Confidentiality of Alcohol and Drug Abuse Patient Records regulations: The Federal rules restrict any use of the information to criminally investigate or prosecute any alcohol or drug abuse patient.[facility] CenterIn the event this information is protected by the Federal Confidentiality of Alcohol and Drug Abuse Patient Records regulations: The Federal rules restrict any use of the information to criminally investigate or prosecute any alcohol or drug abuse patient.[facility] CenterIn the event this information is protected by the Federal Confidentiality of Alcohol and Drug Abuse Patient Records regulations: The Federal rules restrict any use of the information to criminally investigate or prosecute any alcohol or drug abuse patient.[facility] Reason for Visit (unrecogniz ed section and content) Reason Comments Patient Question Reason Comments Breast Cancer 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 Comments Account Collector - Other Reason Comments Breast Cancer Follow up Reason Comments Appointment Reason Comments Orders Reason Comments Orders Reason Comments Annual Exam Reason Comments Establish Care Heymeyer-afib/plum h tn Specialty Diagnoses / Procedures Referred By Jerry t Referred To Contact Diagnoses Paroxysmal atrial fibrillation (CMS/HCC) Procedures ECG 12 Lead Eloise Galicia MD [address] [facility] [address] [place] [address] Referral ID Status Reason Start Date Expiration Date V isits Requested Visits Authorized [id number] Authorized 07/02/2023 07/01/2024 1 1 Specialty Diagnoses / Procedures Referred By Jerry t Referred To Contact Cardiology Diagnoses History of [place] (myocardial infarction) Acute arterial ischemic stroke, multifocal, posterior circulation, right (Multi) Procedures Transthoracic Echo Complete [place] ECHO TTHRC R-T 2D W/WOM-MODE COMPL SPEC&COLR D Eloise Galicia MD [address] [facility] [address] [place] [address] Referral ID Status Reason Start Date Expiration Date Visits Requested Visits Authorized [id number] Authorized Perform Procedure 07/02/2023 07/01/2024 1 1 Reason Comments Radiology NM Specialty Diagnoses / Procedures Referred By Contac t Referred To Contact MOLECULAR & FUNCTIONAL IMAGING Diagnoses Malignant neoplasm of breast in female, estrogen receptor negative, unspecified laterality, unspecified site of breast (HCC) Procedures NM PET/CT SKULL-THIGH INITIAL TUMOR IMAGING PET W/CONC CT SKULL-THIGH Drake Anand MD [address] [place] [address] [address] [place] [address] Molecular & Functional Imaging [address] [place] [address] Referral ID Status Reason Start Date Expiration Date V isits Requested Visits Authorized [id number] Closed Auto-Generate d Referral 04/16/2021 06/14/2021 1 1 Reason Comments Hypertension Hyperlipidemia Diabetes Reason Comments Toe Problem Cyanotic toes Reason Comments Follow-up Reason Comments Pain Specialty Diagnoses / Procedures Referred By Contac t Referred To Contact Orthopaedic Surgery Diagnoses Right leg weakness Jack Rogel MD [address] [facility] [address] [place] [address] Phone: tel: fax: Jayne Rene, BED BUG EXTERMINATOR fax: Referral ID Status Reason Start Date Expiration Date V isits Requested Visits Authorized [id number] Closed Specialty Services Required 06/16/2024 12/13/2024 1 1 Reason Comments Follow-up 2 week Follow up to discuss AAA US Results Specialty Diagnoses / Procedures Referred By Contac t Referred To Contact Cardiology Diagnoses Paroxysmal atrial fibrillation (Multi) Procedures Follow Up In Cardiology Eloise Galicia MD [address] [address] Phone: tel: fax: Eloise Galicia MD [address] [address] Phone: tel: fax: Referral ID Status Reason Start Date Expiration Date V isits Requested Visits Authorized [id number] Authorized 05/19/2024 05/19/2025 1 1 Reason Comments Anticoagulation Specialty Diagnoses / Procedures Referred By Contac t Referred To Contact Pharmacy Diagnoses Paroxysmal atrial fibrillation (Multi) Anticoagulated Eloise Galicia MD [address] [address] Phone: tel: fax: Referral ID Status Reason Start Date Expiration Date Visits Requested Visits Authorized [id number] Authorized Specialty Services Required 07/11/2024 07/11/2025 1 1 Reason Onset Date Comments Referral 08/28/2024 Referral ID Status Reason Start Date Expiration Date Visits Requested Visits Authorized [id number] Authorized Specialty Services Required 07/28/2024 07/28/2025 1 1 Reason Comments Follow-up Care Teams (unrecognized sec tion and content) Grout Worker Relationship Specialty Start Date End Date Jorge Luis Whitehead [address] [place] [address] PCP - General Family Practice 03/28/21 Grout Worker Relationship Specialty Start Date End Date Jorge Luis [place] [address] [place] [address] PCP - General Family Practice 03/28/21 Grout Worker Relationship Specialty Start Date End Date Jorge Luis [place] DO [address] [place] [address] PCP - General Family Practice 03/28/21 Grout Worker Relationship Specialty Start Date End Date Jorge Luis [place] DO [address] [place] [address] PCP - General Family Medicine 03/28/21 Grout Worker Relationship Specialty Start Date End Date Jorge Luis [place] DO [address] [place] [address] PCP - General Family Medicine 03/28/21 Grout Worker Relationship Specialty Start Date End Date Jorge Luis [place] DO [address] [place] [address] PCP - General Family Medicine 03/28/21 Grout Worker Relationship Specialty Start Date End Date Jorge Luis [place], DO [address] [place] [address] PCP - General Family Medicine 03/28/21 Grout Worker Relationship Specialty Start Date End Date Jorge Luis [place], DO [address] [place] [address] PCP - General Family Medicine 03/28/21 Team Status: Inactive Member Role Status Dates Jorge Luis Amaroalvarorupali DO Primary Care Provider Active Simin Lama MD Attending Provider Active Team Status: Active Member Role Status Dates Jorge Luis Premalvarorupali DO Primary Care Provider Active Grout Worker Relationship Specialty Start Date End Date Amanda Briones MD [address] [place] [address] PCP - General Family Medicine 09/07/22 Amanda Briones MD [address] [place] [address] PCP - Devoted 04/16/23 Linette Blankenship NP [address] [facility] [place] [address] Nurse Practitioner Family Medicine 09/07/22 Grout Worker Relationship Specialty Start Date End Date Jack Rogel MD [address] [facility] [place] [address] (Fax) PCP - General Family Medicine 07/02/23 Grout Worker Relationship Specialty Start Date End Date Jack Rogel MD [address] [facility] [place] [address] (Fax) PCP - General Family Medicine 07/02/23 Grout Worker Relationship Specialty Start Date End Date Jorge Luis [place] DO [address] [facility] [place] [address] PCP - General Family Medicine 03/28/21 Grout Worker Relationship Specialty Start Date End Date Amanda Briones MD [address] [facility] [place] [address] PCP - Devoted 04/16/23 Jack Rogel MD [address] [address] (Fax) PCP - General Family Medicine 06/01/23 Linette Blankenship NP [address] [facility] [place] [address] Nurse Practitioner Family Medicine 09/07/22 Grout Worker Relationship Specialty Start Date End Date Amanda Briones MD [address] [facility] [place] [address] PCP - Devoted 04/16/23 04/15/24 Jack Rogel MD [address] [address] PCP - General Family Medicine 06/01/23 Linette Blankenship NP [address] [facility] [place] [address] Nurse Practitioner Family Medicine 09/07/22 Grout Worker Relationship Specialty Start Date End Date Amanda Briones MD [address] [place] [address] PCP - Devoted 04/16/23 04/15/24 Jack Rogel MD [address] [place] [address] PCP - General Family Medicine 06/01/23 Linette Blankenship NP [address] [place] [address] Nurse Practitioner Family Medicine 09/07/22 Grout Worker Relationship Specialty Start Date End Date Amanda Briones MD [address] [facility] [place] [address] PCP - Devoted 04/16/23 04/15/24 Jack Rogel MD [address] [place] [address] PCP - General Family Medicine 06/01/23 Linette Blankenship NP [address] [place] [address] Nurse Practitioner Family Medicine 09/07/22 Team Status: [...] May 19, 2024 End: May 19, 2024 Grout Worker Relationship Specialty Start Date End Date Jack Rogel MD [address] [place] [address] (Fax) PCP - General Family Medicine 06/01/23 Linette Blankenship NP [address] [place] [address] Nurse Practitioner Family Medicine 09/07/22 Grout Worker Relationship Specialty Start Date End Date Jack Rogel MD [address] [place] [address] (Fax) PCP - General Family Medicine 06/01/23 Linette Blankenship NP [address] [place] [address] Nurse Practitioner Family Medicine 09/07/22 Grout Worker Relationship Specialty Start Date End Date Jack Rogel MD [address] [place] [address] (Fax) PCP - General Family Medicine 06/01/23 Linette Blankenship NP [address] [place] [address] Nurse Practitioner Family Medicine 09/07/22 Team Status: [...] June 11, 2024 End: June 11, 2024 Grout Worker Relationship Specialty Start Date End Date Jack Rogel MD [address] [facility] [address] [place] [address] (Fax) PCP - General Family Medicine 06/01/23 Linette Blankenship NP [address] [place] [address] Nurse Practitioner Family Medicine 09/07/22 Grout Worker Relationship Specialty Start Date End Date Jack Rogel MD 112 [facility] 100 [place] [address] (Fax) PCP - General Family Medicine 06/01/23 Linette Blankenship NP [address] [place] [address] Nurse Practitioner Family Medicine 09/07/22 Toi Horne DPM 112 [facility] 120 [place] [address] Referring Physician Podiatry 06/05/24 Grout Worker Relationship Specialty Start Date End Date Jack Rogel MD [address] [address] PCP - General Family Medicine 06/01/23 Linette Blankenship NP [address] [place] [address] Nurse Practitioner Family Medicine 09/07/22 Toi Horne DPM [address] [place] [address] Referring Physician Podiatry 06/05/24 Grout Worker Relationship Specialty Start Date End Date Jack Rogel MD [address] [place] [address] (Fax) PCP - General Family Medicine 05/19/24 Grout Worker Relationship Specialty Start Date End Date Jack Rogel MD [address] [place] [address] (Fax) PCP - General Family Medicine 05/19/24 Grout Worker Relationship Specialty Start Date End Date Jack Rogel MD [address] [place] [address] (Fax) PCP - General Family Medicine 05/19/24 Grout Worker Relationship Specialty Start Date End Date Jack Rogel MD [address] [place] [address] (Fax) PCP - General Family Medicine 06/01/23 Jack Rogel MD [address] [place] [address] (Fax) PCP - Fernando COLIN 05/17/24 Linette Blankenship NP [address] [place] [address] Nurse Practitioner Family Medicine 09/07/22 Toi Horne DPM [address] [place] [address] Referring Physician Podiatry 06/05/24 Grout Worker Relationship Specialty Start Date End Date Jack Rogel MD [address] [place] [address] (Fax) PCP - General Family Medicine 06/01/23 Jack Rogel MD [address] [place] [address] (Fax) PCP - Fernando COLIN 05/17/24 Linette Blankenship NP [address] [place] [facility] [place] [address] Nurse Practitioner Family Medicine 09/07/22 Toi Horne DPM [address] [place] [address] Referring Physician Podiatry 06/05/24 Grout Worker Relationship Specialty Start Date End Date Jack Rogel MD [address] [place] [address] (Fax) PCP - General Family Medicine 05/19/24 Grout Worker Relationship Specialty Start Date End Date Jack Rogel MD [address] [place] [address] (Fax) PCP - General Family Medicine 06/01/23 Jack Rogel MD [address] [place] [address] (Fax) PCP - Fernando COLIN 05/17/24 Linette Blankenship NP [address] [facility] [place] [address] Nurse Practitioner Family Medicine 09/07/22 Toi Horne DPM [address] [place] [address] Referring Physician Podiatry 06/05/24 Grout Worker Relationship Specialty Start Date End Date Jack Rogel MD [address] [place] [address] (Fax) PCP - General Family Medicine 06/01/23 Jack Rogel MD [address] [place] [address] (Fax) PCP - Fernando COLIN 05/17/24 Linette Blankenship NP [address] [place] [address] Nurse Practitioner Family Medicine 09/07/22 Toi Horne DPM [address] [place] [address] Referring Physician Podiatry 06/05/24 Grout Worker Relationship Specialty Start Date End Date Jack Rogel MD [address] [place] [address] (Fax) PCP - General Family Medicine 06/01/23 Jack Rogel MD [address] [place] [address] PCP - Fernando COLIN 05/17/24 Linette Blankenship NP [address] [place] [address] Nurse Practitioner Family Medicine 09/07/22 Toi Horne DPM [address] [place] [address] Referring Physician Podiatry 06/05/24 Tenzin Hsu MD [address] [address] [address] [facility]0 [place], [place] [address] Referring Physician Vascular Surgery 09/15/24 Grout Worker Relationship Specialty Start Date End Date Jack Rogel MD [address] [place] [address] (Fax) PCP - General Family Medicine 06/01/23 Jack Rogel MD [address] [place] [address] (Fax) PCP - Fernando COLIN 05/17/24 Linette Blankenship NP [address] [place] [address] Nurse Practitioner Family Medicine 09/07/22 Toi Horne DPM [address] [place] [address] Referring Physician Podiatry 06/05/24 Tenzin Hsu MD [address] [place] [id number] Referring Physician Vascular Surgery 09/15/24 Grout Worker Relationship Specialty Start Date End Date Jack Rogel MD [address] [place] [address] (Fax) PCP - General 08/06/24 Grout Worker Relationship Specialty Start Date End Date Jack Rogel MD [address] [place] [address] (Fax) PCP - General 08/06/24 Grout Worker Relationship Specialty Start Date End Date Jack Rogel MD [address] [place] [address] (Fax) PCP - General 08/06/24 Grout Worker Relationship Specialty Start Date End Date Jack Rogel MD [address] [place] [address] (Fax) PCP - General Family Medicine 06/01/23 Jack Rogel MD [address] [place] [address] (Fax) PCP - Fernando COLIN 05/17/24 Linette Blankenship NP [address] [place] [address] Nurse Practitioner Family Medicine 09/07/22 Toi Horne DPM [address] [place] [address] Referring Physician Podiatry 06/05/24 Tenzin Hsu MD [address] [address] [address] [place] [address] Referring Physician Vascular Surgery 09/15/24 Grout Worker Relationship Specialty Start Date End Date Jack Rogel MD [address] [place] [address] (Fax) PCP - General Family Medicine 06/01/23 Jack Rogel MD [address] [place] [address] (Fax) PCP - Fernando COLIN 05/17/24 Linette Blankenship NP [address] [place] [address] Nurse Practitioner Family Medicine 09/07/22 Toi Horne DPM 112 [facility] 120 [place] [address] Referring Physician Podiatry 06/05/24 Tenzin Hsu MD [address] [address] [address] [place] [address] Referring Physician Vascular Surgery 09/15/24 Team Status: [...] October 26, 2024 End: October 26, 2024 Grout Worker Relationship Specialty Start Date End Date Jack Rogel MD 112 [facility] 100 [place] [address] (Fax) PCP - General Family Medicine 06/01/23 Jack Rogel MD 112 [facility] 100 [place] [address] PCP - Fernando COLIN 05/17/24 Linette Blankenship NP 14[address] [facility] [place] [address] Nurse Practitioner Family Medicine 09/07/22 Toi Horne DPM 112 [facility] 120 [place] [address] Referring Physician Podiatry 06/05/24 Tenzin Hsu MD [address] [facility] [address] [place] [address] Referring Physician Vascular Surgery 09/15/24 Team Status: Inactive Member Role Status Dates Valdo Hamilton DO Attending Provider Active S tart: October 29, 2024 End: October 29, 2024 Team Status: Active Member Role Status Dates NON STAFF Primary Care Provider Active Start: October 30, 2024 Cirilo Rascon MD Admit Provider Active Start: October 30, 2024 Cirilo Rascon MD Attending Provider Active Start: October 30, 2024 Karin Almanza RN Other Provider Active Star t: October 30, 2024 Iqra Jimenez DO Other Provider Active Start : October 30, 2024 Holland Byrne MD Other Provider Active Start: October 30, 2024 Artemio Walden MD Other Provider Active Start: October 30, 2024 Esther Hagan MD Other Provider Active St art: October 30, 2024 Janusz Dill MD Other Provider Active Start: October 30, 2024 Neena Brock APRN Other Provider Active Start : October 30, 2024 Eloise Galicia MD Other Provider Active Start: Feliberto cheung 2024 Tiago Asencio MD Other Provider Active Start: October 30, 2024 Mayank Ramsey MD Other Provider Active Start: Feliberto cheung 2024 Masha London [facility]- Other Provider Active Sta rt: October 30, 2024 Team Status: Active Member Role Status Dates NON STAFF Primary Care Provider Active Start: October 30, 2024 Cirilo Rascon MD Admit Provider Active Start: October 30, 2024 Cirilo Rascon MD Other Provider Active Start: October 30, 2024 Karni Almanza RN Other Provider Active Star t: October 30, 2024 Iqra Jimenez DO Other Provider Active Start : October 30, 2024 Holland Byrne MD Other Provider Active Start: October 30, 2024 Artemio Walden MD Other Provider Active Start: October 30, 2024 Esther Hagan MD Other Provider Active St art: October 30, 2024 Janusz Dill MD Other Provider Active Start: October 30, 2024 Neena Brock APRN Other Provider Active Start : October 30, 2024 Eloise Galicia MD Other Provider Active Start: J jonatan 2024 Tiago Asencio MD Other Provider Active Start: October 30, 2024 Mayank Ramsey MD Other Provider Active Start: J jonatan 2024 Masha London , [facility] Other Provider Active Sta rt: October 30, 2024 Joan Boyd MD Attending Provider Active Sta rt: October 30, 2024 Grout Worker Relationship Specialty Start Date End Date Jack Rogel MD 112 [facility] 100 [place] [address] PCP - General Family Medicine 06/01/23 Jack Rogel MD 112 [facility] 100 [place] [address] PCP - Fernando COLIN 05/17/24 Linette Blankenship NP [address] [place] [address] Nurse Practitioner Family Medicine 09/07/22 Toi Horne DPM 112 [facility] 120 [place] [address] Referring Physician Podiatry 06/05/24 Tenzin Hsu MD [address] [facility] [address] [place] [address] Referring Physician Vascular Surgery 09/15/24 Grout Worker Relationship Specialty Start Date End Date Jack Rogel MD [address] [place] [address] PCP - General Family Medicine 06/01/23 Jack Rogel MD [address] [place] [address] PCP - Fernando COLIN 05/17/24 Linette Blankenship NP [address] [place] [address] Nurse Practitioner Family Medicine 09/07/22 Toi Horne DPM [address] [place] [address] Referring Physician Podiatry 06/05/24 Tenzin Hsu MD [address] [address] [address] [place], [place] [address] Referring Physician Vascular Surgery 09/15/24 Goals (unrecognized [...] BE BASED ON THE PRIMARY CLINICAL RECORDS. [employer] provides no warranty or guarantee of the accuracy or completeness of information in this document.
--- OUTSIDE RECORDS SUMMARY | 2024-12-11 22:42 | XMS_ITS | Encounter Summary ---
Author Organization [facility] Address [address] [place] [address] Care Team Providers Care Associate Professor Of Psychology Name Role Phone Linette Blankenship BETTINA Unavailable [phone] Amanda Briones MD Unavailable [phone] Jack Restrepo MD Primary Care Provider [phone] Toi Jensen DPM Unavailable [phone] Jack Restrepo MD Unavailable [phone] Robin Hsu MD Unavailable [phone] Encounter Details Date Type Department Care Team (Late st Contact Info) Description 08/31/2023 Orders Only [facility] 521 Family Medicine [address] [facility] [place] [address] Jack Restrepo MD 112 [facility] [address] [place] [address] Social History Tobacco Use Types Packs/Day Years [...] documented as of this encounter Care Teams Associate Professor Of Psychology Relationship Specialty Start Date End Date Amanda Briones MD [address] [place] [address] PCP - Devoted 04/16/23 04/15/24 Jack Restrepo MD 112 [facility] 100 [place] [address] PCP - General Family Medicine 06/01/23 Jack Restrepo MD [address] [address] PCP - Fernando COLIN 05/17/24 Linette Blankenship NP [address] [place] [address] Nurse Practitioner Family Medicine 09/07/22 Toi Jensen DPM 112 [facility] 120 [place] [address] Referring Physician Podiatry 06/05/24 Robin Hsu MD [address] [address] [address] [place] [address] Referring Physician Vascular Surgery 09/15/24 documented as of this encounter
--- OUTSIDE RECORDS SUMMARY | 2024-12-11 22:42 | XMS_ITS | Encounter Summary ---
Author Organization [facility] Address [address] [place] [address] Phone Care Team Providers Care Dope Worker Name Role Phone Jorge Luis Simon DO Primary Care Provider Jack Restrepo MD Primary Care Provider [phone] Jack Restrepo MD Primary Care Provider + [phone] Encounter Details Date Type Department Care Team (Late st Contact Info) Description 06/26/2023 Scanned Document [facility] [address] [place] [address] Scanning, Generic Provider Social History [...] 2:30 PM EDT Office Visit [facility] Medical Office Building [address] [facility] 130 [place] [address] Eloise Galicia MD 7 [facility] 130 [place] [address] 03/02/2025 1:40 PM EST Telemedicine [facility] [address] [place] [address] Emma Hall, PharmD [address] [facility] [address] [place] [address] documented as of this encounter Visit Diagnoses Not on filedocumented in this encounter Care Teams Dope Worker Relationship Specialty Start Date End Date Jorge Luis SimonDO PCP - General 01/22/19 07/01/23 Jack Restrepo MD PCP - General Family Medicine 07/02/23 05/18/24 Jack Restrepo MD [address] [place] [address] 100 [place] [address] PCP - General Family Medicine 05/19/24 documented as of this encounter
--- OUTSIDE RECORDS SUMMARY | 2024-12-11 22:42 | XMS_ITS | Encounter Summary ---
Author Organization [facility] Address [address] [place] [address] Care Team Providers Care Stamp Press Operator Name Role Phone Linette Blankenship BETTINA Unavailable [phone] Amanda Briones MD Unavailable [phone] Jack Restrepo MD Primary Care Provider [phone] Toi Jensen DPM Unavailable [phone] Jack Restrepo MD Unavailable [phone] Robin Hsu MD Unavailable [phone] Encounter Details Date Type Department Care Team [...] AM EDT Narrative 08/09/2023 6:28 PM EDT [address], [address] [place] [address] TRANSTHORACIC ECHOCARDIOGRAM REPORT Patient Name: MADALYN HERNANDEZ Reading Physician: [id number] Esther Taylor MD Study Date: 08/09/2023 Ordering Provider: [id number] ALLAN RUSSELL MRN/PID: [id number] Fellow: Nurse: Date of /Age: 1 1940 / 83 years Radar Operator: Anna Marie Mckinney RDCS, RVT Gender: F Additional Staff: Height: 160.02 cm Admit Date: Weight: 66.23 kg Admission Status: BSA / BMI: 1.69 m2 / 25.86 kg/m2 Department Location: [facility] Blood Pressure: 134 /88 mmHg Study Type: TRANSTHORACIC ECHO (TTE) COMPLETE Diagnosis/ICD: 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; 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 Indication: Paroxysmal Atrial Fibrillation, CAD, HTN, Hyperlipidemia, CKD-Stage III, Previous TIA, Mild Pumonary HTN CPT Codes: Echo Complete w Full [id number] Study Detail: The following Echo studies were [...] mmHg PIEDV: 2.05 m/s PADP: 19.8 mmHg [id number] Esther Taylor MD Electronically signed on 08/09/2023 at 6:28:33 PM Final Procedure Note Radiology, Radiologist, - 08/09/[address], [place] [address] TRANSTHORACIC ECHOCARDIOGRAM REPORT Patient Name: MADALYN HERNANDEZ Henrietta Physician: [id number] Rivas Study Date: 08/09/2023 Ordering Provider: [id number] RUSSELL MRN/PID: [id number] Fellow: Nurse: Date of /Age: 1 1940 / 83 years Radar Operator: Blake REHMAN RVT Gender: F Additional Staff: Height: 160.02 cm Admit Date: Weight: 66.23 kg Admission Status: BSA / BMI: 1.69 m2 / 25.86 kg/m2 [facility] Blood Pressure: 134 /88 mmHg Study Type: TRANSTHORACIC ECHO (TTE) COMPLETE Diagnosis/ICD: 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; Cerebral infarction dueto unspecified occlusion or stenosis of right posteriorcerebral artery-I63.531 Indication: Paroxysmal Atrial Fibrillation, CAD, HTN, Hyperlipidemia, CKD-Stage III, Previous TIA, Mild Pumonary HTN CPT Codes: Echo Complete w Full [id number] Study Detail: The following Echo studies were [...] mmHg PIEDV: 2.05 m/s PADP: 19.8 mmHg [id number] Esther Taylor MD Electronically signed on 08/09/2023 at 6:28:33 PM Final us Generic External Data Provider CV ECHO PROCEDURE S Final Result documented in this encounter Visit Diagnoses Not on filedocumented in this encounter Additional Health Concerns Assessment Noted Time PHQ-9 Depression Total Score: 2 05/14/19 24 1:00 PM EST documented as of this encounter Care Teams Stamp Press Operator Relationship Specialty Start Date End Date Amanda Briones MD [address] [place] [address] PCP - Devoted 04/16/23 04/15/24 Jack Restrepo MD 112 [facility] 100 [place] [address] PCP - General Family Medicine 06/01/23 Jack Restrepo MD 112 [facility] 100 [place] [address] PCP - Fernando COLIN 05/17/24 Linette Blankenship NP [address] [place] [address] Nurse Practitioner Family Medicine 09/07/22 Toi Jensen DPM 112 [facility] 120 [place] [address] Referring Physician Podiatry 06/05/24 Robin Hsu MD [address] [address] [address] [place] [address] Referring Physician Vascular Surgery 09/15/24 documented as of this encounter
--- OUTSIDE RECORDS SUMMARY | 2024-12-11 22:42 | XMS_ITS | Encounter Summary ---
Author Organization [facility] Address [address] [place] [address] Care Team Providers Care Sound Effects Technician Name Role Phone Linette Blankenship BETTINA Unavailable [phone] Amanda Briones MD Unavailable [phone] Jack Rogel MD Primary Care Provider [phone] Toi Jensen DPM Unavailable [phone] Jack Rogel MD Unavailable [phone] Robin Hsu MD Unavailable [phone] Encounter Details Date Type Department Care Team (Late st Contact Info) Description 03/19/2024 Clinisync Result Encounter [facility] External Department Unsolicited Jack Rogel MD 112 [facility] [address] [place] [address] Social History Tobacco Use Types Packs/Day Years [...] PM EST Narrative 03/19/2024 2:24 [place] [address] Vein Report Signed Patient: MADALYN HERNANDEZ MR#: [id number] : 1940 Acct:[id number] Age/Sex: 83 / F ADM Date: 03/19/24 Loc: [facility] Attending Dr: JACK ROGEL Ordering Physician: JACK ROGEL Date of Service: 03/19/24 Procedure(s): [facility] SEGMENTAL PRESSURES Accession Number(s): [id number] cc: JACK ROGEL [place] [id number] Patient Name: MADALYN HERNANDEZ MRN: [id number] date: 1940 Sex: F Assigned Patient Location: Current Patient Location: Accession/Order Number: [id number] Exam Date: 03/19/2024 13:03 Report Date: 03/19/2024 [...] M.D. Signed By: 03/19/241423 DD/ 20 TD/TT: Barbering Instructor: Procedure Note Radiology, Radiologist, MD - 03/19/2024 [place] [address] Vein Report Signed Patient: CORAZON HERNANDEZ#: [id number] : 1940cct:[id number] Age/Sex: 83 / FADM Date: 03/19/24 Loc: [facility] Attending Dr: JACK ROGEL Ordering Physician: JACK ROGEL Date of Service: 03/19/24 Procedure(s): VC SEGMENTAL PRESSURES Accession Number(s): [id number] cc: JACK ROGEL [place] [id number] Patient Name: MADALYN HERNANDEZ MRN: [id number] date: 1940 Sex: F Assigned Patient Location: [facility] Current Patient Location: [facility] Accession/Order Number: [id number] Exam Date: 03/19/2024 13:03 Report Date: 03/19/2024 [...] Kiser M.D. Signed By:03/19/241423 DD/ 20 TD/TT: Barbering Instructor: Jack Rogel MD IMG XR PROCEDURES Final Resu lt documented in this encounter Visit Diagnoses Not on filedocumented in this encounter Additional Health Concerns Assessment Noted Time PHQ-9 Depression Total Score: 2 05/14/19 24 1:00 PM EST documented as of this encounter Care Teams Sound Effects Technician Relationship Specialty Start Date End Date Amanda Briones MD [address] [facility] [place], [place] [address] PCP - Devoted 04/16/23 04/15/24 Jack Rogel MD [address] [place] [address] PCP - General Family Medicine 06/01/23 Jack Rogel MD [address] [place] [address] PCP - Fernando COLIN 05/17/24 Linette Blankenship NP 1479 [facility] [place] [address] Nurse Practitioner Family Medicine 09/07/22 Toi Jensen DPM 112 [facility] [address] [place] [address] Referring Physician Podiatry 06/05/24 Robin Hsu MD [address] [address] [address] [place] [address] Referring Physician Vascular Surgery 09/15/24 documented as of this encounter
--- OUTSIDE RECORDS SUMMARY | 2024-12-11 22:42 | XMS_ITS | Patient Health Record ---
Author Organization [facility] Address [address] [place] [address] Care Team Providers Care Straightedge Man Name Role Phone Naty Rabago Primary Care Provider Reason For Referral No Information Plan Of Treatment No Information Insurance Providers Payer Name Payer Address Payer Phone Subscriber Number Group Number Insured Name Patient Relationship to Insured Coverage Start Date Coverage End Date [employer]AGE [address] [place] [phone] [id number] MADALYN FRANCISCO Self - patient is the insured 4
--- OUTSIDE RECORDS SUMMARY | 2024-12-11 22:42 | XMS_ITS | Encounter Summary ---
Author Organization [facility] Address [address] [place] [address] Phone Care Team Providers Care Trombone Slide Assembler Name Role Phone Jack Restrepo MD Primary Care Provider [phone] Reason for Visit * Reason Comments Med Refill Encounter Details Date Type Department Care Team (Late Contact Info) Description 11/08/2024 Refill [facility] [address] [facility] 250 [place] [address] Eloise Galicia MD [address] [facility] 130 [place], [place] [id number] Primary hypertension Social History Tobacco Use Types Packs/Day Years [...] encounter Miscellaneous Notes * Telephone Encounter - Eloise Galicia MD - 11/10/2024 10:43 AM EDT Approving, but needs appt for additional refills. documented in this encounter Plan of Treatment Upcoming Encounters Date Type Department Care Team (Late Contact Info) Description 12/16/2024 2:30 PM EDT Office Visit [facility] Medical Office Building [address] [facility] [address] [place] [address] Eloise Galicia MD [address] [facility] 130 [place] [address] 03/02/2025 1:40 PM EST Telemedicine [facility] [address] [place] [phone] Emma Hall, PharmD [address] [facility] [address] [place] [address] documented as of this encounter Visit Diagnoses Diagnosis Primary hypertension Unspecified essential hypertension documented in this encounter Additional Health Concerns Assessment Noted Time A fall risk assessment has been complete d for the patient 07/11/2024 2:19 PM EDT documented as of this encounter Care Teams Trombone Slide Assembler Relationship Specialty Start Date End Date Jack Restrepo MD [address] [place] [address] 100 [place] [address] PCP - General Family Medicine 05/19/24 documented as of this encounter
--- OUTSIDE RECORDS SUMMARY | 2024-12-11 22:42 | XMS_ITS | Encounter Summary ---
Author Organization [facility] Address [address] [place] [address] Phone Care Team Providers Care Transport Manager Name Role Phone Jack Restrepo MD Primary Care Provider [phone] Encounter Details Date Type Department Care Team (Late st Contact Info) Description 10/30/2024 Scanned Document [facility] [address] [place] [phone] Scanning, Generic Provider Social History Tobacco Use [...] Description 12/16/2024 2:30 PM EDT Office Visit [facility] Medical Office Building [address] [place] [phone] Eloise Galicia MD [address] [place] [address] 03/02/2025 1:40 PM EST Telemedicine [facility] [address] [place] [phone] Emma Hall, PharmD [address] [facility] [address] [place] [address] documented as of this encounter Visit Diagnoses Not on filedocumented in this encounter Additional Health Concerns Assessment Noted Time A fall risk assessment has been complete d for the patient 07/11/2024 2:19 PM EDT documented as of this encounter Care Teams Transport Manager Relationship Specialty Start Date End Date Jack Restrepo MD 112 [facility] 100 [place] [address] PCP - General Family Medicine 05/19/24 documented as of this encounter
--- OUTSIDE RECORDS SUMMARY | 2024-12-11 22:42 | XMS_ITS | Encounter Summary ---
Author Organization [facility] Address [address] [place] [address] Care Team Providers Care Car Rental Agent Name Role Phone Amanda Briones MD Primary Care Provider [phone] Linette Blankenship NP Unavailable [phone] Amanda Briones MD Unavailable [phone] Raoul Bueno THIRD MILLER Unavailable [phone] Raoul Bueno LPN Unavailable [phone] Amanda Briones MD Unavailable [phone] Jack Restrepo MD Primary Care Provider + [phone] Toi Jensen DPM Unavailable [phone] Jack Restrepo MD Unavailable [phone] Robin Hsu MD Unavailable [phone] Encounter Details Date Type Department Care Team (Late st Contact Info) Description 10/17/2022 Orders Only [facility] [address] [facility] [place] [address] Amanda Briones MD [address] [facility] [place] [address] Social History Tobacco Use Types [...] on filedocumented in this encounter Care Teams Car Rental Agent Relationship Specialty Start Date End Date Amanda Briones MD [address] [place] [address] PCP - General Family Medicine 09/07/22 05/31/23 Amanda Briones MD [address] [place] [address] PCP - Fernando COLIN 09/14/22 04/15/23 Amanda Briones MD [address] [place] [address] PCP - Devoted 04/16/23 04/15/24 Jack Restrepo MD [address] [address] PCP - General Family Medicine 06/01/23 Jack Restrepo MD [address] [address] PCP - Fernando COLIN 05/17/24 Linette Blankenship NP [address] [place] [address] Nurse Practitioner Family Medicine 09/07/22 Raoul Bueno LPN [address] [place] [address] Licensed Practical Nurse Family Medicine 11/29/2211/29 Raoul Bueno LPN [address] [place] [address] Licensed Practical Nurse Family Medicine 12/04/2202/14 Toi Jensen DPM 112 [facility] [address] [place] [address] Referring Physician Podiatry 06/05/24 Robin Hsu MD [address] [address] [address] [place], [place] [id number] Referring Physician Vascular Surgery 09/15/24 documented as of this encounter
--- OUTSIDE RECORDS SUMMARY | 2024-12-11 22:42 | XMS_ITS | Encounter Summary ---
Author Organization [facility] Address [address] [place] [address] Phone Care Team Providers Care Rn Ambulatory Name Role Phone Jack Restrepo MD Primary Care Provider + [phone] Jack Restrepo MD Primary Care Provider + [phone] Encounter Details Date Type Department Care Team (Late st Contact Info) Description 04/03/2024 Scanned Document [facility] [address] [place] [phone] Scanning, Generic Provider Social History Tobacco Use [...] [facility] Medical Office Building [address] [phone] Eloise Galicia MD 7 [facility] 130 [place] [address] 03/02/2025 1:40 PM EST Telemedicine [facility] [address] [place] [phone] Emma Hall, PharmD [address] [place] [address] documented as of this encounter Procedures Procedure [...] documented as of this encounter Care Teams Rn Ambulatory Relationship Specialty Start Date End Date Jack Restrepo MD PCP - General Family Medicine 07/02/23 05/18/24 Jack Restrepo MD [address] [address] PCP - General Family Medicine 05/19/24 documented as of this encounter
--- OUTSIDE RECORDS SUMMARY | 2024-12-11 22:42 | XMS_ITS | Encounter Summary ---
Author Organization [facility] Address [address] [place] [address] Phone Care Team Providers Care Meter Technician Name Role Phone Jack Restrepo MD Primary Care Provider + [phone] Jack Restrepo MD Primary Care Provider + [phone] Encounter Details Date Type Department Care Team (Late st Contact Info) Description 04/02/2024 Scanned Document [facility] [address] [place] [phone] Scanning, Generic Provider Social History Tobacco Use [...] Description 12/16/2024 2:30 PM EDT Office Visit [facility] Medical Office Building [address] [phone] Eloise Galicia MD 7 [facility] 130 [place] [address] 03/02/2025 1:40 PM EST Telemedicine [facility] [address] [place] [phone] Emma Hall, PharmD [address] [place] [address] documented as of this encounter Visit Diagnoses Not on filedocumented in this encounter Additional Health Concerns Assessment Noted Time A fall risk assessment has been complete d for the patient 07/02/2023 1:17 PM EDT documented as of this encounter Care Teams Meter Technician Relationship Specialty Start Date End Date Jack Resrtepo MD PCP - General Family Medicine 07/02/23 05/18/24 Jack Restrepo MD [address] [place] [address] 100 [place] [address] PCP - General Family Medicine 05/19/24 documented as of this encounter
--- OUTSIDE RECORDS SUMMARY | 2024-12-11 22:42 | XMS_ITS | Clinical Summary ---
Author Organization [facility] Address [address] [place] [address] Care Team Providers Care Telegraphic Typewriter Operator Name Role Phone Linette Blankenship BETTINA Unavailable [phone] Jack Restrepo MD Primary Care Provider Toi Jensen DPM Unavailable [phone] Jack Restrepo MD Unavailable [phone] Tenzin Hernandez MD Unavailable [phone] Allergies Active Allergy Reactions Criticality Noted Date Comments Amino Acids Other High 01/31/2022 Gabapentin Diarrhea 08/27/2024 Lisinopril Cough,Other 04/05/2021 Penicillins Other 04/05/2021 Dizzy and passed out Statins Other 09/08/2022 Medications Multiple Vitamin (MULTIVITAMIN ADULT PO) Multivitamin Active levothyroxine (Synthroid) 25 MCG tabletIndication s:Hypothyroidism (acquired) Take 1 tablet (25 mcg) by mouth Daily Take on an empty stomach 90 tablet 1 4 Active glucose blood (ThoughtBoxuch Ultra) test stripIndications :Type 2 diabetes mellitus with stage 3b chronic kidney disease, without long-term current use of insulin (HCC) Check daily and as needed. 50 strip 1 4 Active valsartan (Diovan) 40 MG tabletIndication s:Primary hypertension Take 1 tablet (40 mg) by mouth Daily 90 tablet 1 4 Active Additional Information Patient taking differently:40 mg Oral2 times daily, Morning, Bedtime, Reported on 11/10/2024 carvedilol (Coreg) 6.25 MG tabletIndication s:Paroxysmal atrial fibrillation (HCC) Take 1 tablet (6.25 mg) by mouth in the morning and 1 tablet (6.25 mg) in the evening. Take with meals. 5 Active Additional Information Patient taking differently: 3.25 mgOral 2 times daily with meals, Morning, Evening, Reported on 11/10/2024 spironolactone (Aldactone) 25 MG tablet Take 12.5 mg by mouth in the morning. 5 026 Active Nitro-Bid 2 % ointment Place 0.5 inches on the skin in the morning and 0.5 inches before bedtime. See instructions. Active magnesium oxide (Mag-Ox) 400 mg tablet Take 400 mg by mouth in the morning and 400 mg before bedtime. Active Eliquis 2.5 MG tablet Take 2.5 mg by mouth in the morning and 2.5 mg before bedtime. 5 Active Active Problems Problem Noted Date Diagnosed Date Statin myopathy 11/10/2024 AAA (abdominal aortic aneurysm) 06/09/2024 Discoloration of [...] cardiomyopathy 09/08/2022 Coronary artery disease invo lving [place] coronary artery of [place] heart without angina pectoris 09/08/2022 Overview (04/03/2023): First diagonal branch with ostial stenosis, catheterization June 2018. Medical management. 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 [address] Ailyn Manzo RN 11/10/2024 2:30 PM EDT Office Visit [address] [address] Jack Restrepo MD Statin myopathy (Primary Dx); Takotsubo cardiomyopathy; NSTEMI (non-ST elevated myocardial infarction) (HCC); Acute UTI; RAZA (acute kidney injury); Encounter for examination following treatment at hospital; Primary hypertension ; PVD (peripheral vascular disease); Pararenal abdominal aortic aneurysm (AAA) without rupture; Chronic kidney disease, stage 3b (CMS-HCC); Polypharmacy 11/10/2024 Bamboo flowsheet [facility] [place] [address] [place] [address] Jack Restrepo MD 11/10/2024 Travel 11/04/2024 Patient Outreach [facility] [address] [place] [address] Tyesha Connelly LPN 10/30/2024 Telephone [facility] [place] [place] [address] Jack Restrepo MD Care Coordination 10/29/2024 Clinisync Result Encounter [facility] External Department Unsolicited Provider, Generic External Data 10/27/2024 Abstract [facility] [place] [place] [address] Jack Restrepo MD 10/07/2024 8:45 AM EDT Office Visit [facility] [address] [place] [address] Best Jackson, PA Right leg pain (Primary Dx); Lumbar radiculopathy, right; Chronic pain of right knee; Arthritis of right knee; Chondromalacia, patella, right 10/07/2024 Bamboo flowsheet [facility] [address] [place] [address] Best Jackson PA 10/07/2024 Travel 09/25/2024 Abstract [facility] [address] [place] [address] Jack Restrepo MD 09/25/2024 Clinisync Result Encounter [facility] External Department Unsolicited Provider, Generic External Data 09/24/2024 Clinisync Result Encounter [facility] External Department Unsolicited Provider, Generic External Data 09/19/2024 1:15 PM EDT Procedure Visit [facility] [address] [facility] [address] [place] [address] Phil Mishra MD Pain in both lower extremities (Primary Dx); Weakness of right lower extremity; Lumbar radiculopathy 09/19/2024 Travel from Last 3 Months Immunizations Immunization Administration [...] Past Smokeless Tobacco: Never Tobacco Cessation:Counseling Given: Not [...] Pressure 130/70 09/03/2024 3:16 PM EDT Pulse 64 11/10/2024 2:30 PM EDT Temperature 36.3 C (97.3 F) 11/29/2022 10:04 AM EDT Respiratory Rate 18 05/29/2024 10:55 AM EST Oxygen Saturation 97% 11/10/2024 2:30 PM EDT Inhaled Oxygen Concentration - - Weight 61 kg (134 lb 8 oz) 11/10/2024 2:30 PM ED T Height 160 cm (5' 3 ) 11/10/2024 2:30 PM EDT Body Mass Index 23.83 11/10/2024 2:30 PM EDT Plan of Treatment Health Maintenance Due Date Last Done Comments Diabetes: Hemoglobin A1C 09/01/2024 024, 03/16/2023, 11/29/2022, Additional history exists Influenza Vaccine (#1) 2024 4, 01/23/2023, 02/08/2022, Additional history exists Diabetes: Urine Protein Screening 03/04/2025 024, 11/29/2022 Diabetes: Retinopathy Screening 03/19/2025 Medicare Annual Wellness (AWV) 09/03/2025 0 09/03/2024, 05/14/2023, 05/17/2022, Additional history exists Pneumococcal Vaccine: 65+ Years Completed 5, 04/05/2010 Procedures Procedure Name Priority Date/Time Associated Diagnosis Comments [place] [facility] Routine 10/29/2024 7:14 PM EDT FL ARTHROCENTESIS ASPIR&/INJ MAJOR JT/BURSA W/O US Routine 10/07/2024 9:33 AM EDT Arthritis of right knee Chondromalacia, patella, right CTA ABDOMEN PELVIS W CONTRAST 09/25/2024 11:43 AM EDT MHPT CREATININE W/GFR Routine 09/24/2024 8:10 AM EDT MICROALBUMIN / CREATININE URINE RATIO Routine 03/04/2024 1:56 PM EST Chronic kidney disease, stage 3b ([facility]-HCC) Type 2 diabetes mellitus with stage 3b chronic kidney disease, without long-term current use of insulin ([facility]) Primary hypertension HEMOGLOBIN A1C Routine 03/04/2024 1:56 PM EST Chronic kidney disease, stage 3b ([facility]-HCC) Type 2 diabetes mellitus with stage 3b chronic kidney disease, without long-term current use of insulin ([facility]) DIABETIC RETINOPATHY SCREENING - OU - BOTH EYES Routine 03/19/2023 8:06 AM EST from Last 3 Months or Most Recently Relevant to Health Maintenance Results * [place] [facility] (10/29/2024 7:14 PM EDT) URINE CULTURE - FR Urine Culture - FR <9,000 colonies/ml mixed [facility] URINE CULTURE [place] [facility] bacterial skin contaminants [facility] URINE CULTURE - [facility] 2 Days [facility]URE - [facility]INE CULTURE - [facility] performed [facility] [place]INE [place]ULTURE [place] [facility] [address] [place] [address] [facility] 10/29/2024 7:14 PM EDT 10/29/2024 7:22 PM EDT Narrative [facility] - 11/03/2024 12:36 PM EDT us Generic External Data Provider LAB BLOOD ORDERAB LES Final Result [facility] * [place] ARTHROCENTESIS ASPIR&/INJ MAJOR JT/BURSA W/O US (10/07/2024 [...] Provider: TENZIN HERNANDEZ Generic External Data Provider CLINISYNC F inal Result [facility] * Microalbumin / creatinine, urine ratio (03/04/2024 [...] Performing Organization Information Site ID: QPT Name: [facility] Address: Andreina Pay[address] , [address] [place] [address] Director: César Dunn MD us Jack Restrepo MD LAB URINE ORDERABLES Final R esult Performing Organization Address [facility] Co de Phone Number [facility] * (ABNORMAL) [...] Performing Organization Information Site ID: QPT Name: [facility] Address: Andreina Payan , [address] [place] [id number] Director: César Dunn MD us Jack Restrepo MD LAB BLOOD ORDERABLES Final R esult Performing Organization Address [facility] Co de Phone Number [facility] * Diabetic Retinopathy Screening - OU - Both Eyes (03/19/2023 8:06 AM EST) Anatomical Region Laterality Modality Head Other us Amanda Briones MD OPHTH PHOTOGRAPHY Final Resul t from Last 3 Months or Most Recently Relevant to Health Maintenance Insurance [employer] Advance Directives Documents on File Type Date Recorded Patient Med Admin Expl anation Power of Garbage Pick Up Worker 05/28/2023 10:54 AM 2022 Power Of Garbage Pick Up Worker Care Teams Telegraphic Typewriter Operator Relationship Specialty Start Date End Date Jack Restrepo MD 112 [facility] 100 [place] [address] PCP - General Family Medicine 06/01/23 Jack Restrepo MD 112 [facility] 100 [place] [address] PCP - Fernando COLIN 05/17/24 Linette Blankenship NP [address] [place] [address] Nurse Practitioner Family Medicine 09/07/22 Toi Jensen DPM [address] [facility] [address] [place] [address] Referring Physician Podiatry 06/05/24 Tenzin Hernandez MD [address] [address] [address] [place] [address] Referring Physician Vascular Surgery 09/15/24
--- OUTSIDE RECORDS SUMMARY | 2024-12-11 22:42 | XMS_ITS | Encounter Summary ---
Author Organization [facility] Address [address] [place] [address] Care Team Providers Care Sales And Distribution Clerk Name Role Phone Linette Blankenship BETTINA Unavailable [phone] Amanda Briones MD Unavailable [phone] Jack Restrepo MD Primary Care Provider Toi Jensen DPM Unavailable [phone] Jack Restrepo MD Unavailable [phone] Robin Hsu MD Unavailable [phone] Encounter Details Date Type Department Care Team (Late st Contact Info) Description 06/04/2023 Abstract [facility] [address] [place] [address] Hunter Santiago MD [address] [place] [address] Social History Tobacco Use Types Packs/Day Years [...] documented as of this encounter Care Teams Sales And Distribution Clerk Relationship Specialty Start Date End Date Amanda Briones MD [address] [facility] [place] [address] PCP - Devoted 04/16/23 04/15/24 Jack Restrepo MD [address] [place] [address] PCP - General Family Medicine 06/01/23 Jack Restrepo MD 112 [facility] [address] [place] [address] PCP - Fernando COLIN 05/17/24 Linette Blankenship NP [address] [facility] [place] [address] Nurse Practitioner Family Medicine 09/07/22 Toi Jensen DPM 112 [facility] [address] [place] [address] Referring Physician Podiatry 06/05/24 Robin Hsu MD [address] [address] [address] [place] [address] Referring Physician Vascular Surgery 09/15/24 documented as of this encounter
--- OUTSIDE RECORDS SUMMARY | 2024-12-11 22:42 | XMS_ITS | Clinical Summary ---
Author Organization [facility] Address [address] [place] [address] Phone Care Team Providers Care Senior Linux Systems Administrator Name Role Phone Jack Restrepo MD Primary Care Provider [phone] Allergies Active Allergy Reactions Criticality Noted Date Comments Atorvastatin Myalgia Medium 05/19/2024 Lisinopril Other,Cough,Unknown Low 04/05/2021 Penicillins Diarrhea Low 04/05/2021 Dizzy and passed out Zwebicg-Vxt-Ovb Reductase Inhibitors Other Medium 09/08/2022 Medications aspirin [...] once daily. 90 tablet 1 07/12/19 25 01/07/ 025 Active Additional Information Patient not taking.Reported on 07/28/2024 spironolactone (Aldactone) 25 mg tabletIndications: Acute on chronic left systolic heart failure Take 0.5 tablets (12.5 mg) by mouth once daily. 45 tablet 1 07/12/19 25 025 Active apixaban (Eliquis) 2.5 mg tabletIndications: Paroxysmal atrial fibrillation (Multi) Take 1 tablet (2.5 mg) by mouth 2 times a day. 180 tablet 3 11/06/2024 3:41 PM EDT 08/14/19 25 Active carvedilol (Coreg) 3.125 mg tabletIndications: Primary hypertension TAKE 1 TABLET BY MOUTH 2 TIMES A DAY. 180 tablet 11/11/19 25 Active Active Problems Problem Noted Date Diagnosed Date BMI 24.0-24.9, adult 07/11/2024 Aortic aneurysm 07/11/2024 Stage 3b chronic kidney disease (Multi) 07/12/19 25 Anticoagulated 07/11/2024 Hospital discharge follow-up 05/19/2024 Mixed hyperlipidemia 05/19/2024 Acute on chronic left systolic heart failure 06/2024 Discoloration of skin of foot 05/19/2024 Type 2 HI (myocardial infarction) (Multi) 2024 History of HI (myocardial infarction) 07/02/2023 STORMY inhibitor intolerance 07/02/2023 [...] Encounters Date Type Department Care Team Description 11/08/2024 Refill [facility] 7[address] [facility] 250 [place] [address] Eloise Galicia MD Primary hypertension 10/31/2024 Orders Only [facility] [address] [place] [phone] Scanning, Generic Provider 10/30/2024 Scanned Document [facility] [address] [place] [phone] Scanning, Generic Provider from Last 3 Months Immunizations Immunization Administration [...] 12/16/2024 2:30 PM EDT Office Visit [facility] Medical Office Building [address] [facility] 130 [place] [address] Eloise Galicia MD 9[address] [facility] [address] [place] [address] 03/02/2025 1:40 PM EST Telemedicine [facility] [address] [place] [phone] Emma Hall, PharmD [address] [facility] [place] [address] Health Maintenance Due Date Last Done Comments Creatinine Level 1941 Lipid Panel 1940 Medicare Annual Wellness Visit (AWV) 1940 Potassium Level 1941 Diabetes Screening 1959 DTaP/Tdap/Td Vaccines (1 - Tdap) 1963 Zoster Vaccines (1 of 2) 1991 Bone Density Scan 2006 RSV High Risk: (Elderly (60+) or Population) (1 - 1-dose 75+ series) 2016 COVID-19 Vaccine ( - season) 2024 03/27/2024, 01/23/2023, 01/06/2022 Influenza [...] Procedure Name Priority Date/Time Associated Diagnosis Comments NUCLEAR STRESS TEST - ONBASE SCAN 10/31/2024 ECHOCARDIOGRAM 05/19/2024 3:36 PM EST from Last 3 Months or Most Recently Relevant to Health Maintenance Results * Nuclear Stress Test - Onbase Scan (10/31/2024) Narrative 10/31/2024 Ordered by an unspecified provider. us Generic Provider Scanning CV STRESS PROCEDURES F inal Result * Echocardiogram (05/19/2024 3:36 PM EST) 05/19/2024 3:36 PM EST Narrative [facility] - 05/19/2024 5:02 PM EST [facility] [place] [address] Echocardiogram Signed Patient: Johanny Hernandez MR#: [id number] : 1940 Acct:[id number] Age/Sex: 84 / F ADM Date: 05/19/24 Loc: Room: Type: [facility] Attending Dr: Eloise Galicia MD Ordering Provider: Eloise Galicia MD Date of Service: 05/19/24/ [facility] echo limited: HX: OF HI, CHF Copies to: MD Esther Simpson MD Ordering Physician: Eloise Galicia Height: 63 in Weight: 142 lb Performed By: Cecile Beckford [facility] BSA: 1.7 m2 BP: 126/60 mmHg HR: 56 Reason For Study: rule out thrombus.HX: of HI, CHF History: Takotsubo Syndrome. DM. HTN. Aflutter. HLD. CKD. CAD. Abdominal Aortic Aneurysm. CVA. HI. Family history of CAD. Interpretation Summary The [...] Galicia MD CV ECHO PROCEDURES Final Result [facility] [address] [place] [address], [place] from Last 3 Months or Most Recently Relevant to Health Maintenance Insurance [employer] MEDICARE ADVANTAGE Care Teams Senior Linux Systems Administrator Relationship Specialty Start Date End Date Jack Restrepo MD [address] [address] PCP - General Family Medicine 05/19/24
== END 2024-12-11 23:20 | disposition home or self-care (01) ==
PROVIDERS: Emergency Provider Emergency Medicine; PCP Family Medicine
DX: M19.071 Primary osteoarthritis, right ankle and foot (principal); M79.671 Pain in right foot; I73.9 Peripheral vascular disease, unspecified; Z90.49 Acquired absence of other specified parts of digestive tract; Z63.4 Disappearance and death of family member
CPT/HCPCS: 73630; 99283